=== PATIENT | male | born 1955 | race Hispanic/Latino ===

== ENCOUNTER 2016-12-06 14:40 | Inpatient (IN) | payer MEDICARE ==
[2016-12-06] MEDS ORDERED: NACL 0.9% 1000 ML 1,000 ML IV ONE ×2 (15:29→18:40)
[2016-12-06] MEDS ORDERED: SUBLIMAZE IV ONE (15:30)
[2016-12-06] MEDS ORDERED: ZEMURON IV ONE ×2 (15:30→18:50)
[2016-12-06] MEDS ORDERED: KETALAR IV ONE (15:30)
[2016-12-06] MEDS ORDERED: VASELINE LIP THERAPY TP PRN (15:31)
[2016-12-06] MEDS ORDERED: ARTIFICIAL TEARS OPHTH OINT OU PRN (15:31)
--- NOTE | 2016-12-06 15:34 | Emergency Department Report ---
<WALT EARL - Last Filed: 12/06/16 18:41> ED Altered Mental Status HPI - General Chief Complaint: Altered Mental Status Stated Complaint: NON-RESPONSIVE Time Seen by Provider: 12/06/16 15:29 Source: EMS (verbal report received from EMS.ems notes not available at time of chart dictation), RN notes reviewed, old records reviewed Mode of arrival: Stretcher Limitations: Altered Mental Status, Physical Limitation - History of Present Illness Initial Comments: This is a 61-year-old male. I have evaluated him in the past. Has a history of cardiomyopathy, diabetes. Patient presents to the ER EMS for altered mental status. As per verbal report from EMS, patient was last seen normal at 5:00 in the morning. He was found at home by his ex- in bed, there is no history of trauma, and he is altered. Initially upon arrival in the ER, the patient was saturating poorly, 89-90% on room air, not really protecting his airway, and was found to be delirious, combative and agitated. He is found to be febrile and tachycardic. Given altered mental status, delirium, poor oxygenation, I found patient to be an inappropriate candidate for positive pressure ventilation through BiPAP or CPAP , and decision was made to intubate him for airway protection. He was placed on a nasal cannula at 15 L/m, induced with ketamine, 150 mg, and received bag valve mask ventilation. He was then intubated using video laryngoscopy on a second attempt. He had transient desaturation, which was corrected easily with [id number] ventilation. Currently, the patient is sedated on fentanyl and Versed, will be given IV fluids, acetaminophen (assuming his Tylenol level is not supratherapeutic or toxic) , blood cultures, urine cultures to be drawn. x ray was suggestive pneumonia/pneumonitis. Patient was loaded empirically with ceftriaxone. Laboratory studies are pending at this time. I appreciated that the patient has a past medical history of cardiomyopathy, but with fever, delirium, altered mental status, tachypnea, patient meet severe sepsis criteria. Therefore, he will require an aggressive fluid resuscitation. Case was discussed with critical care physician, Dr. Najera, who is going to follow-up in the critical care perspective. He will be admitted to the medical service once laboratory studies and CT scan have returned. MD Complaint: altered mental status, confusion, decreased responsiveness, weakness -: Gradual, hour(s) Severity: severe Consistency of Symptoms: constant Context: history of similar presen Associated Symptoms: other (per hpi) - Related Data Previous Rx's Medication Instructions Recorded Last Taken Type Aspirin [Aspirin TAB] 81 mg PO QDAY #30 tablet 01/28/15 1 Day Ago Rx Furosemide [Lasix TAB] 20 mg PO DAILY #30 tablet 01/28/15 1 Day Ago Rx ISOSORBIDE MONOnitrate [Imdur ER] 30 mg PO DAILY #30 tablet 01/28/15 1 Day Ago Rx Lisinopril [Zestril] 2.5 mg PO QDAY #30 tablet 01/28/15 1 Day Ago Rx Metoprolol [Lopressor TAB] 12.5 mg PO BID #60 tablet 01/28/15 1 Day Ago Rx Pantoprazole [Protonix TAB] 20 mg PO BID #60 tablet. 01/28/15 1 Day Ago Rx Simvastatin [Zocor TAB] 20 mg PO QHS #30 tablet 01/28/15 1 Day Ago Rx Magnesium Oxide [Mag-Ox] 400 mg PO QDAY #5 tablet 02/02/16 1 Day Ago Rx Allergies Allergy/AdvReac Type Severity Reaction Status Date / Time No Known Allergies Allergy Verified 08/09/14 20:15 ED Review of Systems ROS: Stated complaint: NON-RESPONSIVE Other details as noted in HPI Comment: Unobtainable due to pts medical conditions Constitutional: see HPI Eyes: as per HPI ENT: as per HPI Respiratory: see HPI Cardiovascular: as per HPI Endocrine: see HPI Gastrointestinal: as per HPI Genitourinary: as per HPI Musculoskeletal: as per HPI Skin: as per HPI Neurological: as per HPI Psychiatric: as per HPI Hematological/Lymphatic: as per HPI ED Past Medical Hx - Past Medical History Hx Hypertension: Yes Hx Heart Attack/AMI: Yes (2x) Hx Congestive Heart Failure: Yes Hx Diabetes: Yes Hx Asthma: No Hx COPD: No Hx HIV: No Additional medical history: hep c - Surgical History Hx Coronary Stent: Yes (7 stents) - Social History Smoking Status: Current Every Day Smoker - Medications Home Medications: Home Medications Medication Instructions Recorded Confirmed Last Taken Type Aspirin [Aspirin TAB] 81 mg PO QDAY #30 tablet 01/28/15 12/06/16 1 Day Ago Rx Furosemide [Lasix TAB] 20 mg PO DAILY #30 tablet 01/28/15 12/06/16 1 Day Ago Rx ISOSORBIDE MONOnitrate [Imdur ER] 30 mg PO DAILY #30 tablet 01/28/15 12/06/16 1 Day Ago Rx Lisinopril [Zestril] 2.5 mg PO QDAY #30 tablet 01/28/15 12/06/16 1 Day Ago Rx Metoprolol [Lopressor TAB] 12.5 mg PO BID #60 tablet 01/28/15 12/06/16 1 Day Ago Rx Pantoprazole [Protonix TAB] 20 mg PO BID #60 tablet. 01/28/15 12/06/16 1 Day Ago Rx Simvastatin [Zocor TAB] 20 mg PO QHS #30 tablet 01/28/15 12/06/16 1 Day Ago Rx Magnesium Oxide [Mag-Ox] 400 mg PO QDAY #5 tablet 02/02/16 12/06/16 1 Day Ago Rx ED Physical Exam - General Limitations: Altered Mental Status General appearance: lethargic, in distress - Head Head exam: Present: atraumatic, normocephalic - Eye Eye exam: Present: normal appearance - ENT ENT exam: Present: mucous membranes dry - Neck Neck exam: Present: normal inspection. Absent: tenderness, meningismus - Respiratory Respiratory exam: Present: respiratory distress, rhonchi - Cardiovascular Cardiovascular Exam: Present: normal rhythm, tachycardia, normal heart sounds. Absent: systolic murmur, diastolic murmur, rubs, gallop - GI/Abdominal GI/Abdominal exam: Present: soft, normal bowel sounds. Absent: distended, tenderness, guarding, rebound, rigid, pulsatile mass - Rectal Rectal exam: Present: normal inspection - exam: Present: normal inspection - Extremities Exam Extremities exam: Present: normal inspection, full ROM. Absent: calf tenderness - Back Exam Back exam: Present: normal inspection. Absent: tenderness, CVA tenderness (R), CVA tenderness (L), muscle spasm, paraspinal tenderness, vertebral tenderness - Neurological Exam Neurological exam: Present: altered, other (patient moves 4 extremities spontaneously prior to intubation) - Psychiatric Psychiatric exam: Present: agitated - Skin Skin exam: Present: warm, dry, intact, normal color. Absent: rash - Assessment Assessment Interval: Baseline - Level of Consciousness 1a. Level of Consciousness: not alert, arousable - LOC Questions 1b. LOC Questions: answers no questions correctly - LOC Command 1c. LOC Commands: performs no tasks correctly - Best Gaze 2. Best Gaze: normal (unable to assess) - Visual 3. Visual: bilateral hemianopia (unable to assess) - Facial Palsy 4. Facial Palsy: normal symmetrical movement - Motor Arm 5b. Motor Arm Right: drift 5a. Motor Arm Left: drift - Motor Leg 6a. Motor Leg Left: drift 6b. Motor Leg Right: drift - Limb Ataxia 7. Limb Ataxia: amputation (unable to assess) - Sensory 8. Sensory: mild/moderate sensory loss - Best Language 9. Best Language: mute/global aphasia - Dysarthria 10. Dysarthria: intubated or other barrier - Extinction and Inattention 11. Extinction/Inattention: profound inattention ED Course Vital Signs 12/06/16 12/06/16 12/06/16 15:10 15:35 17:46 Temperature 101.1 F H Pulse Rate 134 H 139 H 130 H Pulse Rate [ Anterior Bilateral Throughout] Respiratory 28 H 16 Rate Respiratory Rate [Anterior Bilateral Throughout] Blood Pressure 125/81 144/86 Blood Pressure 138/74 [Left] O2 Sat by Pulse 100 97 95 Oximetry 12/06/16 12/06/16 12/06/16 18:29 20:05 20:10 Temperature Pulse Rate 118 H 98 H 96 H Pulse Rate [ Anterior Bilateral Throughout] Respiratory 16 Rate Respiratory Rate [Anterior Bilateral Throughout] Blood Pressure 124/70 106/61 Blood Pressure 106/61 [Left] O2 Sat by Pulse 97 100 99 Oximetry 12/06/16 12/06/16 12/06/16 20:19 20:29 22:31 Temperature Pulse Rate 97 H Pulse Rate [ 96 H 97 H Anterior Bilateral Throughout] Respiratory 16 Rate Respiratory 20 20 Rate [Anterior Bilateral Throughout] Blood Pressure Blood Pressure 103/59 [Left] O2 Sat by Pulse 97 Oximetry 12/06/16 12/06/16 12/07/16 23:03 23:36 01:58 Temperature Pulse Rate 97 H 94 H Pulse Rate [ 90 Anterior Bilateral Throughout] Respiratory Rate Respiratory 20 Rate [Anterior Bilateral Throughout] Blood Pressure 102/57 110/64 Blood Pressure [Left] O2 Sat by Pulse 97 Oximetry 12/07/16 12/07/16 12/07/16 02:02 02:08 03:00 Temperature Pulse Rate 82 95 H Pulse Rate [ 93 H Anterior Bilateral Throughout] Respiratory 16 16 Rate Respiratory 20 Rate [Anterior Bilateral Throughout] Blood Pressure Blood Pressure 144/62 105/66 [Left] O2 Sat by Pulse 96 99 Oximetry 12/07/16 12/07/16 12/07/16 04:16 04:25 04:30 Temperature Pulse Rate 101 H 96 H 100 H Pulse Rate [ Anterior Bilateral Throughout] Respiratory 23 16 22 Rate Respiratory Rate [Anterior Bilateral Throughout] Blood Pressure 119/70 Blood Pressure 116/69 [Left] O2 Sat by Pulse 98 100 93 Oximetry 12/07/16 12/07/16 12/07/16 05:00 05:30 05:42 Temperature Pulse Rate 99 H 99 H 101 H Pulse Rate [ Anterior Bilateral Throughout] Respiratory 19 19 Rate Respiratory Rate [Anterior Bilateral Throughout] Blood Pressure 122/84 115/73 122/84 Blood Pressure [Left] O2 Sat by Pulse 99 97 99 Oximetry 12/07/16 12/07/16 12/07/16 06:00 06:30 06:49 Temperature Pulse Rate 97 H 97 H Pulse Rate [ Anterior Bilateral Throughout] Respiratory 20 20 16 Rate Respiratory Rate [Anterior Bilateral Throughout] Blood Pressure 122/79 125/81 Blood Pressure [Left] O2 Sat by Pulse 96 99 Oximetry 12/07/16 12/07/16 12/07/16 06:59 07:00 07:18 Temperature 98 F Pulse Rate 99 H 93 H Pulse Rate [ Anterior Bilateral Throughout] Respiratory 21 20 Rate Respiratory Rate [Anterior Bilateral Throughout] Blood Pressure 123/73 Blood Pressure 123/73 [Left] O2 Sat by Pulse 99 99 Oximetry 12/07/16 12/07/16 12/07/16 07:25 07:30 07:35 Temperature Pulse Rate 100 H 101 H Pulse Rate [ 101 H Anterior Bilateral Throughout] Respiratory 20 Rate Respiratory 21 Rate [Anterior Bilateral Throughout] Blood Pressure 137/73 137/73 Blood Pressure [Left] O2 Sat by Pulse 98 99 Oximetry 12/07/16 12/07/16 12/07/16 07:44 08:00 08:31 Temperature Pulse Rate 110 H 120 H Pulse Rate [ 101 H Anterior Bilateral Throughout] Respiratory 21 26 H Rate Respiratory 22 Rate [Anterior Bilateral Throughout] Blood Pressure 119/79 119/79 Blood Pressure [Left] O2 Sat by Pulse 87 95 Oximetry 12/07/16 12/07/16 12/07/16 09:00 09:30 10:00 Temperature 101 F H Pulse Rate 119 H 114 H 109 H Pulse Rate [ Anterior Bilateral Throughout] Respiratory 25 H 22 19 Rate Respiratory Rate [Anterior Bilateral Throughout] Blood Pressure 120/75 120/69 124/73 Blood Pressure 120/75 [Left] O2 Sat by Pulse 98 98 98 Oximetry 12/07/16 12/07/16 12/07/16 10:16 10:25 10:30 Temperature 101.2 F H Pulse Rate 106 H 105 H 100 H Pulse Rate [ Anterior Bilateral Throughout] Respiratory 19 19 Rate Respiratory Rate [Anterior Bilateral Throughout] Blood Pressure 123/74 104/65 Blood Pressure 124/73 [Left] O2 Sat by Pulse 98 Oximetry 12/07/16 12/07/16 12/07/16 11:00 11:21 11:30 Temperature Pulse Rate 93 H 92 H 93 H Pulse Rate [ Anterior Bilateral Throughout] Respiratory 19 19 Rate Respiratory Rate [Anterior Bilateral Throughout] Blood Pressure 97/56 97/56 87/50 Blood Pressure [Left] O2 Sat by Pulse 98 97 Oximetry 12/07/16 12/07/16 12/07/16 11:50 12:00 12:30 Temperature Pulse Rate 93 H 95 H 92 H Pulse Rate [ Anterior Bilateral Throughout] Respiratory 19 22 Rate Respiratory Rate [Anterior Bilateral Throughout] Blood Pressure 87/50 76/45 76/46 Blood Pressure [Left] O2 Sat by Pulse 97 Oximetry 12/07/16 12/07/16 12/07/16 13:00 13:30 13:50 Temperature 100.8 F H Pulse Rate 87 82 Pulse Rate [ 98 H Anterior Bilateral Throughout] Respiratory 20 21 Rate Respiratory 20 Rate [Anterior Bilateral Throughout] Blood Pressure 86/50 84/48 Blood Pressure 85/50 [Left] O2 Sat by Pulse 98 Oximetry 12/07/16 12/07/16 12/07/16 14:00 14:15 14:30 Temperature Pulse Rate 81 85 Pulse Rate [ 94 H Anterior Bilateral Throughout] Respiratory 20 22 Rate Respiratory 24 Rate [Anterior Bilateral Throughout] Blood Pressure 84/49 80/46 Blood Pressure [Left] O2 Sat by Pulse Oximetry 12/07/16 12/07/16 12/07/16 15:00 15:30 15:44 Temperature 99.5 F Pulse Rate 84 83 82 Pulse Rate [ Anterior Bilateral Throughout] Respiratory 20 20 20 Rate Respiratory Rate [Anterior Bilateral Throughout] Blood Pressure 81/48 81/46 Blood Pressure 81/46 [Left] O2 Sat by Pulse 96 96 97 Oximetry 12/07/16 12/07/16 12/07/16 16:00 16:30 17:00 Temperature Pulse Rate 82 81 80 Pulse Rate [ Anterior Bilateral Throughout] Respiratory 21 20 19 Rate Respiratory Rate [Anterior Bilateral Throughout] Blood Pressure 84/48 86/50 87/48 Blood Pressure [Left] O2 Sat by Pulse Oximetry 12/07/16 12/07/16 17:30 18:00 Temperature Pulse Rate 82 82 Pulse Rate [ Anterior Bilateral Throughout] Respiratory 19 21 Rate Respiratory Rate [Anterior Bilateral Throughout] Blood Pressure 84/45 84/45 Blood Pressure [Left] O2 Sat by Pulse 95 94 Oximetry - Reevaluation(s) Reevaluation #1: 12/06/16 17:25 X-ray of the chest requires that endotracheal tube advanced 2 cm. This was performed. Antibiotics have been administered. Case is discussed with the Hospital physician, Dr. Blanco, who accepts the patient to her service. Reevaluation #2: 12/06/16 18:41 additional liter of IV fluids ordered. Patient is still tachycardic. Acetaminophen ordered. Received verbal report from radiology feeding tube/NG tube is twisted on itself. I asked the nurse to adjust this, and he informed me that he did. - Intubation Time Out Performed: Yes Sedative: Ketamine Mg Given: 150 Paralytic: Rocuronium Mg Given: 100 Laryngoscope: fiberoptic video scope Size: 3 ET Tube Size: 7.5 Tube Secured Location: teeth Tube Placement Confirmation: visualized tube passing t Patient Tolerated Procedure: well Intubation Complications: difficult intubation, hypoxia (transient desaturation , corrected with bvm) - Lab Data Result diagrams: 12/06/16 16:07 12/06/16 16:07 Lab Results 12/06/16 12/06/16 12/06/16 Range/Units 15:30 15:30 16:07 WBC 8.2 (4.5-11.0) K/mm3 RBC 4.81 (3.65-5.03) M/mm3 Hgb 14.5 (11.8-15.2) gm/dl Hct 42.8 (35.5-45.6) % MCV 89 (84-94) fl MCH 30 (28-32) pg MCHC 34 (32-34) % RDW 12.9 L (13.2-15.2) % Plt Count 97 L (140-440) K/mm3 Lymph % (Auto) 15.6 (13.4-35.0) % [place] % (Auto) 12.7 H (0.0-7.3) % Eos % (Auto) 0.1 (0.0-4.3) % Baso % (Auto) 0.7 (0.0-1.8) % Lymph # 1.3 (1.2-5.4) K/mm3 [place] # 1.0 H (0.0-0.8) K/mm3 Eos # 0.0 (0.0-0.4) K/mm3 Baso # 0.1 (0.0-0.1) K/mm3 Seg Neutrophils % 70.9 H (40.0-70.0) % Seg Neutrophils # 5.8 (1.8-7.7) K/mm3 PT (12.2-14.9) Sec. INR (0.87-1.13) APTT (24.2-36.6) Sec. POC ABG pH (7.35-7.45) POC ABG pCO2 (35-45) POC ABG pO2 (80-105) POC ABG HCO3 POC ABG Total CO2 POC ABG O2 Sat POC ABG Base Excess FiO2 % Sodium (137-145) mmol/L Potassium (3.6-5.0) mmol/L Chloride (98-107) mmol/L Carbon Dioxide (22-30) mmol/L Anion Gap mmol/L BUN (9-20) mg/dL Creatinine (0.8-1.5) mg/dL Estimated GFR ml/min BUN/Creatinine Ratio % Glucose (75-100) mg/dL Lactic Acid (0.7-2.0) mmol/L Calcium (8.4-10.2) mg/dL Total Bilirubin (0.1-1.2) mg/dL AST (5-40) units/L ALT (7-56) units/L Alkaline Phosphatase (35-129) units/L Ammonia (25-60) umol/L Total Creatine Kinase (55-170) units/L Troponin T (0.00-0.029) ng/mL Total Protein (6.3-8.2) g/dL Albumin (3.9-5) g/dL Albumin/Globulin Ratio % Urine Color Winsome (Yellow) Urine Turbidity Clear (Clear) Urine pH 6.0 (5.0-7.0) Ur Specific [place] 1.017 (1.003-1.030) Urine Protein 100 mg/dl (Negative) mg/dL Urine Glucose (UA) 50 (Negative) mg/dL Urine Ketones Neg (Negative) mg/dL Urine Blood Sm (Negative) Urine Nitrite Neg (Negative) Urine Bilirubin Neg (Negative) Urine Urobilinogen 4.0 (<2.0) mg/dL Ur Leukocyte Esterase Neg (Negative) Urine WBC (Auto) < 1.0 (0.0-6.0) /HPF Urine RBC (Auto) 4.0 (0.0-6.0) /HPF Urine Mucus Few /HPF Salicylates (2.8-20.0) mg/dL Urine Opiates Screen Presumptive negative Urine Methadone Screen Presumptive negative Acetaminophen (10.0-30.0) ug/mL Ur Barbiturates Screen Presumptive negative Ur Phencyclidine Scrn Presumptive negative Ur Amphetamines Screen Presumptive negative U Benzodiazepines Scrn Presumptive negative Urine Cocaine Screen Presumptive negative U Marijuana (THC) Screen Presumptive negative Drugs of Abuse Note Disclamer Plasma/Serum Alcohol (0-0.07) gm% 12/06/16 12/06/16 12/06/16 Range/Units 16:07 16:07 16:07 WBC (4.5-11.0) K/mm3 RBC (3.65-5.03) M/mm3 Hgb (11.8-15.2) gm/dl Hct (35.5-45.6) % MCV (84-94) fl MCH (28-32) pg MCHC (32-34) % RDW (13.2-15.2) % Plt Count (140-440) K/mm3 Lymph % (Auto) (13.4-35.0) % [place] % (Auto) (0.0-7.3) % Eos % (Auto) (0.0-4.3) % Baso % (Auto) (0.0-1.8) % Lymph # (1.2-5.4) K/mm3 [place] # (0.0-0.8) K/mm3 Eos # (0.0-0.4) K/mm3 Baso # (0.0-0.1) K/mm3 Seg Neutrophils % (40.0-70.0) % Seg Neutrophils # (1.8-7.7) K/mm3 PT 14.0 (12.2-14.9) Sec. INR 1.09 (0.87-1.13) APTT 29.1 (24.2-36.6) Sec. POC ABG pH (7.35-7.45) POC ABG pCO2 (35-45) POC ABG pO2 (80-105) POC ABG HCO3 POC ABG Total CO2 POC ABG O2 Sat POC ABG Base Excess FiO2 % Sodium 136 L (137-145) mmol/L Potassium 4.0 (3.6-5.0) mmol/L Chloride 97.2 L (98-107) mmol/L Carbon Dioxide 25 (22-30) mmol/L Anion Gap 18 mmol/L BUN 14 (9-20) mg/dL Creatinine 0.6 L (0.8-1.5) mg/dL Estimated GFR > 60 ml/min BUN/Creatinine Ratio 23.33 % Glucose 195 H (75-100) mg/dL Lactic Acid 2.0 (0.7-2.0) mmol/L Calcium 8.2 L (8.4-10.2) mg/dL Total Bilirubin 1.4 H (0.1-1.2) mg/dL AST 42 H (5-40) units/L ALT 18 (7-56) units/L Alkaline Phosphatase 60 (35-129) units/L Ammonia (25-60) umol/L Total Creatine Kinase (55-170) units/L Troponin T (0.00-0.029) ng/mL Total Protein 7.4 (6.3-8.2) g/dL Albumin 3.3 L (3.9-5) g/dL Albumin/Globulin Ratio 0.8 % Urine Color (Yellow) Urine Turbidity (Clear) Urine pH (5.0-7.0) Ur Specific [place] (1.003-1.030) Urine Protein (Negative) mg/dL Urine Glucose (UA) (Negative) mg/dL Urine Ketones (Negative) mg/dL Urine Blood (Negative) Urine Nitrite (Negative) Urine Bilirubin (Negative) Urine Urobilinogen (<2.0) mg/dL Ur Leukocyte Esterase (Negative) Urine WBC (Auto) (0.0-6.0) /HPF Urine RBC (Auto) (0.0-6.0) /HPF Urine Mucus /HPF Salicylates (2.8-20.0) mg/dL Urine Opiates Screen Urine Methadone Screen Acetaminophen (10.0-30.0) ug/mL Ur Barbiturates Screen Ur Phencyclidine Scrn Ur Amphetamines Screen U Benzodiazepines Scrn Urine Cocaine Screen U Marijuana (THC) Screen Drugs of Abuse Note Plasma/Serum Alcohol (0-0.07) gm% 12/06/16 12/06/16 12/06/16 Range/Units 16:07 16:07 16:07 WBC (4.5-11.0) K/mm3 RBC (3.65-5.03) M/mm3 Hgb (11.8-15.2) gm/dl Hct (35.5-45.6) % MCV (84-94) fl MCH (28-32) pg MCHC (32-34) % RDW (13.2-15.2) % Plt Count (140-440) K/mm3 Lymph % (Auto) (13.4-35.0) % [place] % (Auto) (0.0-7.3) % Eos % (Auto) (0.0-4.3) % Baso % (Auto) (0.0-1.8) % Lymph # (1.2-5.4) K/mm3 [place] # (0.0-0.8) K/mm3 Eos # (0.0-0.4) K/mm3 Baso # (0.0-0.1) K/mm3 Seg Neutrophils % (40.0-70.0) % Seg Neutrophils # (1.8-7.7) K/mm3 PT (12.2-14.9) Sec. INR (0.87-1.13) APTT (24.2-36.6) Sec. POC ABG pH (7.35-7.45) POC ABG pCO2 (35-45) POC ABG pO2 (80-105) POC ABG HCO3 POC ABG Total CO2 POC ABG O2 Sat POC ABG Base Excess FiO2 % Sodium (137-145) mmol/L Potassium (3.6-5.0) mmol/L Chloride (98-107) mmol/L Carbon Dioxide (22-30) mmol/L Anion Gap mmol/L BUN (9-20) mg/dL Creatinine (0.8-1.5) mg/dL Estimated GFR ml/min BUN/Creatinine Ratio % Glucose (75-100) mg/dL Lactic Acid (0.7-2.0) mmol/L Calcium (8.4-10.2) mg/dL Total Bilirubin (0.1-1.2) mg/dL AST (5-40) units/L ALT (7-56) units/L Alkaline Phosphatase (35-129) units/L Ammonia 42.0 (25-60) umol/L Total Creatine Kinase 961 H (55-170) units/L Troponin T < 0.010 (0.00-0.029) ng/mL Total Protein (6.3-8.2) g/dL Albumin (3.9-5) g/dL Albumin/Globulin Ratio % Urine Color (Yellow) Urine Turbidity (Clear) Urine pH (5.0-7.0) Ur Specific [place] (1.003-1.030) Urine Protein (Negative) mg/dL Urine Glucose (UA) (Negative) mg/dL Urine Ketones (Negative) mg/dL Urine Blood (Negative) Urine Nitrite (Negative) Urine Bilirubin (Negative) Urine Urobilinogen (<2.0) mg/dL Ur Leukocyte Esterase (Negative) Urine WBC (Auto) (0.0-6.0) /HPF Urine RBC (Auto) (0.0-6.0) /HPF Urine Mucus /HPF Salicylates (2.8-20.0) mg/dL Urine Opiates Screen Urine Methadone Screen Acetaminophen (10.0-30.0) ug/mL Ur Barbiturates Screen Ur Phencyclidine Scrn Ur Amphetamines Screen U Benzodiazepines Scrn Urine Cocaine Screen U Marijuana (THC) Screen Drugs of Abuse Note Plasma/Serum Alcohol < 0.01 (0-0.07) gm% 12/06/16 12/06/16 12/06/16 Range/Units 16:07 16:07 17:17 WBC (4.5-11.0) K/mm3 RBC (3.65-5.03) M/mm3 Hgb (11.8-15.2) gm/dl Hct (35.5-45.6) % MCV (84-94) fl MCH (28-32) pg MCHC (32-34) % RDW (13.2-15.2) % Plt Count (140-440) K/mm3 Lymph % (Auto) (13.4-35.0) % [place] % (Auto) (0.0-7.3) % Eos % (Auto) (0.0-4.3) % Baso % (Auto) (0.0-1.8) % Lymph # (1.2-5.4) K/mm3 [place] # (0.0-0.8) K/mm3 Eos # (0.0-0.4) K/mm3 Baso # (0.0-0.1) K/mm3 Seg Neutrophils % (40.0-70.0) % Seg Neutrophils # (1.8-7.7) K/mm3 PT (12.2-14.9) Sec. INR (0.87-1.13) APTT (24.2-36.6) Sec. POC ABG pH 7.276 L (7.35-7.45) POC ABG pCO2 51.7 H (35-45) POC ABG pO2 72 L (80-105) POC ABG HCO3 24.1 POC ABG Total CO2 26 POC ABG O2 Sat 92 POC ABG Base Excess -3 FiO2 60 % Sodium (137-145) mmol/L Potassium (3.6-5.0) mmol/L Chloride (98-107) mmol/L Carbon Dioxide (22-30) mmol/L Anion Gap mmol/L BUN (9-20) mg/dL Creatinine (0.8-1.5) mg/dL Estimated GFR ml/min BUN/Creatinine Ratio % Glucose (75-100) mg/dL Lactic Acid (0.7-2.0) mmol/L Calcium (8.4-10.2) mg/dL Total Bilirubin (0.1-1.2) mg/dL AST (5-40) units/L ALT (7-56) units/L Alkaline Phosphatase (35-129) units/L Ammonia (25-60) umol/L Total Creatine Kinase (55-170) units/L Troponin T (0.00-0.029) ng/mL Total Protein (6.3-8.2) g/dL Albumin (3.9-5) g/dL Albumin/Globulin Ratio % Urine Color (Yellow) Urine Turbidity (Clear) Urine pH (5.0-7.0) Ur Specific [place] (1.003-1.030) Urine Protein (Negative) mg/dL Urine Glucose (UA) (Negative) mg/dL Urine Ketones (Negative) mg/dL Urine Blood (Negative) Urine Nitrite (Negative) Urine Bilirubin (Negative) Urine Urobilinogen (<2.0) mg/dL Ur Leukocyte Esterase (Negative) Urine WBC (Auto) (0.0-6.0) /HPF Urine RBC (Auto) (0.0-6.0) /HPF Urine Mucus /HPF Salicylates < 0.3 L (2.8-20.0) mg/dL Urine Opiates Screen Urine Methadone Screen Acetaminophen < 15.0 (10.0-30.0) ug/mL Ur Barbiturates Screen Ur Phencyclidine Scrn Ur Amphetamines Screen U Benzodiazepines Scrn Urine Cocaine Screen U Marijuana (THC) Screen Drugs of Abuse Note Plasma/Serum Alcohol (0-0.07) gm% Vital Signs 12/06/16 15:10 Temperature 101.1 F H Pulse Rate 134 H Respiratory 28 H Rate Blood Pressure 125/81 O2 Sat by Pulse 100 Oximetry 12/06/16 16:24 Sinus tachycardia, 126 bpm, poor R-wave progression, normal axis, abnormal EKG, not consistent with STEMI, appears nonspecifically changed when compared to prior EKG from January 2016. - Radiology Data Radiology results: report reviewed, image reviewed interpreted by me: One view chest x-ray demonstrates placement of endotracheal tube at the level of the clavicles. Bilateral pulmonary infiltrates. Noncontrast CAT scan of the brain negative for acute disease. Noncontrast CAT scan of the cervical spine negative for acute disease. The feeding tube is noted to be twisted on itself incidentally. - Core Measures Measure Exclusions: not indicated - NEXUS Criteria Focal neurological deficit present: No Midline spinal tenderness present: No Altered level of consciousness: Yes (no history of trauma) Intoxication present: No Distracting injury present: No NEXUS results: C-Spine cannot be cleared clinically by these results. Imaging is required. Critical Care Time: Yes Critical care time in (mins) excluding proc time.: 45 Critical care attestation.: If time is entered above; I have spent that time in minutes in the direct care of this critically ill patient, excluding procedure time. Critical Care Time: Critical care time includes multiple bedside evaluations, interpretation of laboratory studies, radiology studies, time spent managing a critically ill patient with delirium and acute fever/sepsis syndrome, requiring intubation. This also includes time spent discussing patient's care with multiple consulting services, including hospital medicine, critical care medicine. This does not include procedure time. ED Disposition Disposition: OP ADMITTED IP TO THIS HOSP Is pt being admited?: Yes Condition: Critical <MISTY DOVE - Last Filed: 12/07/16 18:39> - Central Line Placement Right IJ Consent Obtained: emergent situation Time Out Performed: Yes Patient Placed on Monitor/Pulse Ox: Yes MD Prep: mask, gown, gloves Central Line Prep: Chlorhexidine scrub, sterile drapes applied Local Anesthesia Used: Lidocaine 1% Amount of Anesthesia Used (mls): 2 Ultrasound Used for Placement: Yes Central Line Lumen Inserted: triple Bloods Obtained for Lab: No Central Line Position: good blood return, all ports aspirated, flus, sutured in place with nyl Dressing Applied: Tegaderm Post Procedure X-Ray: tip of catheter in good p Patient Tolerated Procedure: well Complications: none - Lab Data Result diagrams: 12/07/16 05:30 12/07/16 05:30
[2016-12-06] MEDS ORDERED: ROCEPHIN 2,000 MG in NACL 0.9% 50 ML IV ONE (15:36)
[2016-12-06 15:49] LABS: Urine Drugs of Abuse Note Disclamer
[2016-12-06] MEDS ORDERED: ROCEPHIN/NS 2 GM/100 ML 2 GM/100 ML BAG IV SCH (16:00)
[2016-12-06] MEDS ORDERED: SUBLIMAZE 2,000 MCG in NACL 0.9% 60 ML IV SCH (16:00)
[2016-12-06 16:11] LABS: Bilirubin,Urine NEG (Negative); Blood,Urine SM (Negative); Ketones,Urine NEG (Negative); Leukocyte Esterase,Urine NEG (Negative); Mucus,Urine FEW /HPF; Nitrite,Urine NEG (Negative); WBC,Urine < 1.0 /HPF (0.0-6.0)
[2016-12-06] MEDS: fentaNYL DRIP Premix 2,000 MCG/100 ML BAG IV SCH (16:16)
[2016-12-06] MEDS: VERSED/NS 100MG/100ML 100 MG/100 ML BAG IV SCH (16:16)
--- NOTE | 2016-12-06 16:38 | XRay Report ---
FINAL REPORT PROCEDURE: XR CHEST 1V AP TECHNIQUE: Chest radiograph anteroposterior view. CPT 43958 HISTORY: ETT placement COMPARISON: No prior studies are available for comparison. FINDINGS: Heart: mildly enlarged. Mediastinum/Vessels: Moderate central congestion with mild edema. Lungs/Pleural space: Patchy mixed interstitial airspace primarily in the in the left lung zone with atelectasis or slight infiltrate left lung base. Pleural calcifications right greater than left. Small nodules suspected left greater than right lung zone sub centimeter in range. Metastatic disease not excludable followup CT chest advised Bony thorax: No acute osseous abnormality. Life support devices: Endotracheal tube seen with tip 6.5 centimeters from bifurcation. IMPRESSION: Endotracheal tube 6.5 centimeters from bifurcation. Consider advancing 2 centimeters if indicated Mild CHF COPD Patchy infiltrate left lung zone primarily Underlying nodular disease may warrant followup CT chest on elective basis to further evaluate
[2016-12-06 16:56] LABS: Alanine Aminotransferase 18 units/L (7-56); Albumin 3.3 g/dL (3.9-5); Albumin/Globulin Ratio 0.8 %; Alkaline Phosphatase 60 units/L (35-129); Anion Gap 18 mmol/L; BUN/Creatinine Ratio 23.33; Bilirubin,Total 1.4 mg/dL (0.1-1.2); Blood Urea Nitrogen 14 mg/dL (9-20); Calcium 8.2 mg/dL (8.4-10.2); Carbon Dioxide 25 mmol/L (22-30); Chloride 97.2 mmol/L (98-107); Glucose 195 mg/dL (75-100); Sodium 136 mmol/L (137-145); Total Protein 7.4 g/dL (6.3-8.2)
[2016-12-06 16:57] LABS: Creatine Kinase 961 units/L (55-170)
[2016-12-06 17:01] LABS: Basophils % (Auto) 0.7 % (0.0-1.8); Eosinophils % (Auto) 0.1 % (0.0-4.3); Hematocrit 42.8 % (35.5-45.6); Hemoglobin 14.5 gm/dl (11.8-15.2); Mean Corpuscular HGB Conc 34 % (32-34); Mean Corpuscular Hemoglobin 30 pg (28-32); Mean Corpuscular Volume 89 fl (84-94); Red Blood Count 4.81 M/mm3 (3.65-5.03); Red Cell Distribution Width 12.9 % (13.2-15.2); White Blood Count 8.2 K/mm3 (4.5-11.0)
[2016-12-06 17:10] LABS: INR 1.09 (0.87-1.13)
[2016-12-06 17:11] LABS: Partial Thromboplastin Time 29.1 Sec. (24.2-36.6)
[2016-12-06 17:24] LABS: ISTAT Base Excess -3; ISTAT HCO3 24.1; ISTAT PCO2 51.7 (35-45); ISTAT PH 7.276 (7.35-7.45); ISTAT PO2 72 (80-105); ISTAT SO2 92; ISTAT TCO2 26
--- NOTE | 2016-12-06 17:32 | Cat Scan Report ---
FINAL REPORT PROCEDURE: CT HEAD/BRAIN WO CON TECHNIQUE: Computerized tomography of the head was performed without contrast material. HISTORY: Altered Mental Status COMPARISON: 02/01/2016 FINDINGS: Skull and scalp: Normal. Paranasal sinuses: Mucosal thickening maxillary sinuses, right sphenoid sinus. Air-fluid level left sphenoid sinus. Thickening in the ethmoids. Thickening and fluid in the left frontal sinus.. Minimal fluid right mastoid Ventricles and subarachnoid spaces: Normal. Cerebrum: No evidence of hemorrhage, acute infarction or mass . Cerebellum and brainstem: No evidence of hemorrhage, acute infarction or mass. Vasculature: Normal. Comments: If symptoms and or concern persist consider MRI. IMPRESSION: No acute intracranial pathology seen at this time
--- NOTE | 2016-12-06 17:44 | Cat Scan Report ---
FINAL REPORT PROCEDURE: CT CERVICAL SPINE WO CON TECHNIQUE: Computerized tomography of the cervical spine was performed from the skull base to T1 without contrast material. HISTORY: altered mental status COMPARISON: 02/01/2016. FINDINGS: Lateral masses C1-C2 align. Moderate degenerative changes. Retrolisthesis at C4. Moderate disc space narrowing at C3-4. Sclerotic change and irregularity of the disc spaces at C6-7. Lytic or cystic changes at the subjacent endplates at this level. No definitive evidence of discitis such as soft tissue prominence or gas. Probable chronic degenerative changes. Skull base appears intact. Minimal fluid in the mastoids. Chronic odontoid ligamentous calcifications. Small lytic or cystic changes in the vertebral bodies including base of the dens and at the C6-7 level. Medial ribs clavicles appear intact. Emphysematous changes in the upper lungs. Endotracheal tube and NG tube in place.. The NG tube is double looped with redundant catheter in the upper esophageal area. IMPRESSION: No evidence acute fracture Degenerative changes of the cervical spine with listhesis. Endplate irregularity and sclerotic change at the C6-7 level without definitive evidence of discitis Redundant loop in the NG tube upper esophagus. Suggest manipulation Report called to Dr. Enriquez 5:34 p.m. December 06
--- NOTE | 2016-12-06 17:53 | History and Physical Report ---
History of Present Illness Date of examination: 12/06/16 Date of admission: 12/06/16 Chief complaint: Altered level of consciousness History of present illness: 61-year-old male patient well known to our service with significant past medical history of ischemic cardiomyopathy with ejection fraction of 10-15%, the artery disease type 2 diabetes mellitus ongoing tobacco use hypertension history of metabolic encephalopathy during last admission was brought to the emergency room with altered level of consciousness and confusion, patient was found at home by his ex- with altered level of consciousness. Per the ER note patient was delirious combative and agitated unable to protect the airway, not a candidate for BiPAP or CPAP , and patient was promptly intubated and placed on ventilatory support No family available at the bedside, most of the information is obtained from medical records No other history available Past History Past Medical History: CAD, diabetes, heart failure (systolic dysfunction ejection fraction 10-15%), hypertension Past Surgical History: PTCA Social history: smoking Family history: CAD, hypertension Medications and Allergies Allergies Allergy/AdvReac Type Severity Reaction Status Date / Time No Known Allergies Allergy Verified 08/09/14 20:15 Home Medications Medication Instructions Recorded Confirmed Last Taken Type Aspirin [Aspirin TAB] 81 mg PO QDAY #30 tablet 01/28/15 12/06/16 1 Day Ago Rx Furosemide [Lasix TAB] 20 mg PO DAILY #30 tablet 01/28/15 12/06/16 1 Day Ago Rx ISOSORBIDE MONOnitrate [Imdur ER] 30 mg PO DAILY #30 tablet 01/28/15 12/06/16 1 Day Ago Rx Lisinopril [Zestril] 2.5 mg PO QDAY #30 tablet 01/28/15 12/06/16 1 Day Ago Rx Metoprolol [Lopressor TAB] 12.5 mg PO BID #60 tablet 01/28/15 12/06/16 1 Day Ago Rx Pantoprazole [Protonix TAB] 20 mg PO BID #60 tablet. 01/28/15 12/06/16 1 Day Ago Rx Simvastatin [Zocor TAB] 20 mg PO QHS #30 tablet 01/28/15 12/06/16 1 Day Ago Rx Magnesium Oxide [Mag-Ox] 400 mg PO QDAY #5 tablet 02/02/16 12/06/16 1 Day Ago Rx Active Meds: Active Medications Hydrophilic Ointment (Vaseline Lip Therapy) 1 applic TP Q2HR PRN PRN Reason: Dry Lips Midazolam HCl (Versed/Ns 100mg/100ml) 100 mg in 100 mls @ 1 mls/hr IV TITR RENITA ; 1 MG/HR PRN Reason: Protocol Last Titration: 12/06/16 17:49 Dose: 2 mg/hr, 2 mls/hr Ceftriaxone Sodium (Rocephin/Ns 2 Gm/100 Ml) 2 gm in 100 mls @ 200 mls/hr IV ONCE.ED RENITA Fentanyl Citrate (Fentanyl Drip Premix) 2,000 mcg in 100 mls @ 4.196 mls/hr IV TITR RENITA; 1 MCG/KG/HR PRN Reason: Protocol Last Titration: 12/06/16 17:48 Dose: 2 mcg/kg/hr, 8.392 mls/hr Multi-Ingred Cream/Lotion/Oil/Oint (Artificial Tears Ophth Oint) 1 applic OU Q4HR PRN PRN Reason: Dry Eye(s) Review of Systems ROS unobtainable: due to endotracheal tube Exam - Constitutional Vitals: Temp Pulse Resp BP Pulse Ox 101.1 F H 130 H 16 138/74 95 12/06/16 15:10 12/06/16 17:46 12/06/16 17:46 12/06/16 17:46 12/06/16 17:46 General appearance: Present: no acute distress, other (currently intubated and sedated) - EENT Eyes: Present: PERRL - Neck Neck: Present: supple. Absent: rigidity, enlarged thyroid - Respiratory Respiratory effort: normal Respiratory: bilateral: diminished, rales, negative: rhonchi - Cardiovascular Rhythm: regular Heart Sounds: Present: S1 & S2 (tachycardia) - Extremities Extremities: no ischemia, pulses intact, pulses symmetrical Peripheral Pulses: within normal limits - Abdominal General gastrointestinal: Present: soft, non-tender, non-distended, normal bowel sounds - Integumentary Integumentary: Present: clear, warm - Musculoskeletal Musculoskeletal: other ( intubated and sedated) - Psychiatric Psychiatric: other (intubated and sedated) - Neurologic Neurologic: other (intubated/ sedated) Results - Labs CBC & Chem 7: 12/06/16 16:07 12/06/16 16:07 Labs: Abnormal lab results 12/06/16 12/06/1612/06/17 Range/Units 16:07 16:07 16:07 RDW 12.9 L (13.2-15.2) % [place] % (Auto) 12.7 H (0.0-7.3) % [place] # 1.0 H (0.0-0.8) K/mm3 Seg Neutrophils % 70.9 H (40.0-70.0) % POC ABG pH (7.35-7.45) POC ABG pCO2 (35-45) POC ABG pO2 (80-105) Sodium 136 L (137-145) mmol/L Chloride 97.2 L (98-107) mmol/L Creatinine 0.6 L (0.8-1.5) mg/dL Glucose 195 H (75-100) mg/dL Calcium 8.2 L (8.4-10.2) mg/dL Total Bilirubin 1.4 H (0.1-1.2) mg/dL AST 42 H (5-40) units/L Total Creatine Kinase 961 H (55-170) units/L Albumin 3.3 L (3.9-5) g/dL Salicylates (2.8-20.0) mg/dL 12/06/16 12/06/16 Range/Units 16:07 17:17 RDW (13.2-15.2) % [place] % (Auto) (0.0-7.3) % [place] # (0.0-0.8) K/mm3 Seg Neutrophils % (40.0-70.0) % POC ABG pH 7.276 L (7.35-7.45) POC ABG pCO2 51.7 H (35-45) POC ABG pO2 72 L (80-105) Sodium (137-145) mmol/L Chloride (98-107) mmol/L Creatinine (0.8-1.5) mg/dL Glucose (75-100) mg/dL Calcium (8.4-10.2) mg/dL Total Bilirubin (0.1-1.2) mg/dL AST (5-40) units/L Total Creatine Kinase (55-170) units/L Albumin (3.9-5) g/dL Salicylates < 0.3 L (2.8-20.0) mg/dL Assessment and Plan --Respiratory failure Admit to ICU Continue ventilatory support, nebulizers, IV antibiotics Supportive care, pulmonary critical evaluation Wean as tolerated and extubate --Left Lower lobe pneumonia/community-acquired IV Rocephin and Zithromax, blood cultures --Acute exacerbation of systolic congestive heart failure Ejection fraction 10-15%, IV diuretics and anti-failure medications Cardiology evaluation for assistance with management --Coronary artery disease status post PCI Continue home aspirin, beta blockers, rafa inhibitors, nitrates and statins --Altered level of consciousness/metabolic encephalopathy Multifactorial, closely monitor Review home medications and adjust as needed --Hypertension Well-controlled, continue current antihypertensives When necessary hydralazine --Dyslipidemia Continue lipid-lowering medications --DVT prophylaxis with Lovenox --Full CODE STATUS --Closely monitor the patient and adjust the management as needed Plan of care discussed with the patient's nurse and the ER physician Critical care time 50 minutes
[2016-12-06 17:58] LABS: Platelet Count 97 K/mm3 (140-440)
[2016-12-06] MEDS ORDERED: TYLENOL FEEDTUBE ONE (18:40)
[2016-12-06 18:43] LABS: ISTAT Base Excess -2; ISTAT HCO3 23.8; ISTAT PO2 85 (80-105); ISTAT SO2 96; ISTAT TCO2 25
[2016-12-06] MEDS ORDERED: KETALAR ONE (18:50)
[2016-12-06] MEDS ORDERED: APRESOLINE IV PRN (18:53)
[2016-12-06] MEDS ORDERED: ZITHROMAX 500 MG in NACL 0.9% 250ML 250 ML IV SCH (20:00)
[2016-12-06] MEDS: DUONEB 0.5 MG-3 MG/3 ML SOLN IH SCH (20:18)
[2016-12-06] MEDS: IMDUR PO SCH (20:34)
[2016-12-06] MEDS: LOPRESSOR PO SCH (23:03)
[2016-12-06] MEDS: LOVENOX SUB-Q SCH (23:06)
[2016-12-06] MEDS: ZOCOR PO SCH (23:06)
[2016-12-07 01:41] LABS: Creatine Kinase MB 3.2 ng/mL (0.0-4.0)
[2016-12-07 01:42] LABS: Creatine Kinase 343 units/L (55-170)
[2016-12-07] MEDS: DUONEB 0.5 MG-3 MG/3 ML SOLN IH SCH ×4 (01:58→19:50)
[2016-12-07 05:44] LABS: Basophils % (Auto) 0.4 % (0.0-1.8); Eosinophils % (Auto) 0.1 % (0.0-4.3); Hematocrit 39.7 % (35.5-45.6); Hemoglobin 13.3 gm/dl (11.8-15.2); Mean Corpuscular HGB Conc 34 % (32-34); Mean Corpuscular Hemoglobin 30 pg (28-32); Mean Corpuscular Volume 90 fl (84-94); Red Blood Count 4.41 M/mm3 (3.65-5.03); White Blood Count 9.4 K/mm3 (4.5-11.0)
[2016-12-07 05:45] LABS: Platelet Count 93 K/mm3 (140-440)
--- NOTE | 2016-12-07 05:47 | Admit Criteria Form ---
Admission Criteria Documentation: RESPIRATORY FAILURE GRG Clinical Indications for Admission to Inpatient Care (Place 'X' for any and all applicable criteria): Hospital admission is needed for appropriate care of the patient because of acute respiratory failure or insufficiency as indicated by ANY ONE of the following(1)(2)(3)(4)(5)(6)(7)(8): [ ]I. Mechanical ventilation needed (acute invasive or noninvasive) [X ]II. Severe ventilation deficit as indicated by ANY ONE of the following (9 ) [X ]a) Respiratory acidosis (pH less than 7.32 and partial pressure of carbon dioxide greater than 40 mm Hg (5.3 kPa)) [X ]b) Partial pressure of carbon dioxide greater than 44 mm Hg (5.9 kPa) (new) [ ]c) Airflow measurements less than 25% of predicted (eg, peak expiratory flow rate less than 100 L/minute) [ ]d) Forced vital capacity less than 15 mL/kg of ideal body weight, or 50% decrease in vital capacity from baseline [ ]III. Noncardiac pulmonary edema not resolving with rapid emergency treatment (8) [ ]IV. Severe respiratory distress as indicated by ANY ONE of the following: [ ]a) Severe tachypnea (respiratory rate greater than 30, greater than 45 for 6-month-old, greater than 60 for ) [ ]b) Severe hypoxemia (partial pressure of oxygen less than 50 mm Hg ( 6.7 kPa) on greater than 50% oxygen or partial pressure of oxygen to FIO2 ratio less than 200) [ ]c) Mental status deterioration from respiratory disease [ ]V. Airway obstruction or inadequate protection [A](10)(11) The original [employer] content created by [employer] has been revised. The portions of the content which have been revised are identified through the use of italic text or in bold, and [facility] has neither reviewed nor approved the modified material. All other unmodified content is copyright [employer]. Please see references footnoted in the original [employer] edition 2016 Admission Criteria Met: Yes
[2016-12-07 05:57] LABS: ISTAT Base Excess 1; ISTAT PCO2 42.6 (35-45); ISTAT PH 7.394 (7.35-7.45); ISTAT PO2 91 (80-105); ISTAT SO2 97; ISTAT TCO2 27
[2016-12-07 06:09] LABS: Alanine Aminotransferase 14 units/L (7-56); Albumin 2.6 g/dL (3.9-5); Albumin/Globulin Ratio 0.6 %; Alkaline Phosphatase 49 units/L (35-129); Anion Gap 18 mmol/L; BUN/Creatinine Ratio 23.33; Bilirubin,Direct 0.7 mg/dL (0-0.2); Bilirubin,Indirect 0.4 mg/dL; Bilirubin,Total 1.1 mg/dL (0.1-1.2); Blood Urea Nitrogen 14 mg/dL (9-20); Calcium 7.8 mg/dL (8.4-10.2); Carbon Dioxide 24 mmol/L (22-30); Chloride 99.2 mmol/L (98-107); Glucose 168 mg/dL (75-100); Magnesium 1.9 mg/dL (1.7-2.3); Sodium 137 mmol/L (137-145); Total Protein 6.7 g/dL (6.3-8.2)
[2016-12-07 07:56] LABS: Creatine Kinase MB 2.8 ng/mL (0.0-4.0)
[2016-12-07 07:57] LABS: Creatine Kinase 242 units/L (55-170)
[2016-12-07] MEDS: TYLENOL PR PRN (09:00)
[2016-12-07] MEDS ORDERED: ASPIRIN PO SCH (10:00)
[2016-12-07] MEDS ORDERED: ROCEPHIN/NS 2 GM/100 ML 2 GM/100 ML BAG IV SCH (10:00)
[2016-12-07] MEDS: PROTONIX IV SCH (10:08)
[2016-12-07] MEDS: LASIX IV SCH (10:10)
[2016-12-07] MEDS: BABY ASPIRIN PO SCH (10:15)
[2016-12-07] MEDS: ZESTRIL PO SCH (10:16)
[2016-12-07] MEDS: LOPRESSOR PO SCH ×2 (11:21→22:49)
[2016-12-07] MEDS: IMDUR PO SCH (11:21)
[2016-12-07] MEDS ORDERED: VANCOMYCIN PHARMACY TO DOSE IV SCH (12:00)
[2016-12-07] MEDS ORDERED: NACL 0.9% 250ML 250 ML ONE (12:07)
[2016-12-07] MEDS ORDERED: NACL 0.9% 1000 ML 1,000 ML ONE (12:33)
--- NOTE | 2016-12-07 12:51 | Consultation ---
History of Present Illness Consult date: 12/07/16 Consult reason: congestive heart failure History of present illness: 61 YO man with h/o CAD s/p prior PCI and ischemic cardiomyopathy who is currently intubated and mechanically ventilated. History was obtained from medical records. He apparently presented to ED with worsening confusion and dyspnea. He was found to have pneumonia and has been intubated. CT has been ruled out with negative cardiac enzymes. ECG reveals sinus tachycardia at [address] changes. Past History Past Medical History: CAD, diabetes, heart failure (systolic dysfunction ejection fraction 10-15%), hypertension Past Surgical History: PTCA Social history: smoking Family history: CAD, hypertension Medications and Allergies Allergies Allergy/AdvReac Type Severity Reaction Status Date / Time No Known Allergies Allergy Verified 08/09/14 20:15 Home Medications Medication Instructions Recorded Confirmed Last Taken Type Aspirin [Aspirin TAB] 81 mg PO QDAY #30 tablet 01/28/15 12/06/16 1 Day Ago Rx Furosemide [Lasix TAB] 20 mg PO DAILY #30 tablet 01/28/15 12/06/16 1 Day Ago Rx ISOSORBIDE MONOnitrate [Imdur ER] 30 mg PO DAILY #30 tablet 01/28/15 12/06/16 1 Day Ago Rx Lisinopril [Zestril] 2.5 mg PO QDAY #30 tablet 01/28/15 12/06/16 1 Day Ago Rx Metoprolol [Lopressor TAB] 12.5 mg PO BID #60 tablet 01/28/15 12/06/16 1 Day Ago Rx Pantoprazole [Protonix TAB] 20 mg PO BID #60 tablet. 01/28/15 12/06/16 1 Day Ago Rx Simvastatin [Zocor TAB] 20 mg PO QHS #30 tablet 01/28/15 12/06/16 1 Day Ago Rx Magnesium Oxide [Mag-Ox] 400 mg PO QDAY #5 tablet 02/02/16 12/06/16 1 Day Ago Rx Active Meds: Active Medications Acetaminophen (Tylenol) 650 mg [place] Q4H PRN PRN Reason: Pain, Mild (1-3) Last Admin: 12/07/16 09:00 Dose: 650 mg Albuterol/Ipratropium (Duoneb 0.5 Mg-3 Mg/3 Ml Soln) 1 ampul IH Q6HRT RENITA Last Admin: 12/07/16 07:32 Dose: 1 ampul Aspirin (Baby Aspirin) 81 mg PO QDAY [facility] Last Admin: 12/07/16 10:15 Dose: 81 mg Enoxaparin Sodium (Lovenox) 40 mg SUB-Q QDAY@2200 [facility] Last Admin: 12/06/16 23:06 Dose: 40 mg Furosemide (Lasix) 40 mg IV QDAY [facility] Last Admin: 12/07/16 10:10 Dose: 40 mg Hydralazine HCl (Apresoline) 10 mg IV Q4HR PRN PRN Reason: Hypertension MORE THAN 160/90 Hydrophilic Ointment (Vaseline Lip Therapy) 1 applic TP Q2HR PRN PRN Reason: Dry Lips Last Admin: 12/07/16 12:44 Dose: 1 applic Midazolam HCl (Versed/Ns 100mg/100ml) 100 mg in 100 mls @ 1 mls/hr IV TITR RENITA ; 1 MG/HR PRN Reason: Protocol Last Titration: 12/07/16 12:28 Dose: 1 mg/hr, 1 mls/hr Fentanyl Citrate (Fentanyl Drip Premix) 2,000 mcg in 100 mls @ 4.196 mls/hr IV TITR RENITA; 1 MCG/KG/HR PRN Reason: Protocol Last Titration: 12/07/16 12:27 Dose: 1 mcg/kg/hr, 4.196 mls/hr Azithromycin 500 mg/ Sodium (Chloride) 250 mls @ 250 mls/hr IV Q24H [facility] Last Admin: 12/06/16 20:35 Dose: 250 mls/hr Piperacillin Sod/Tazobactam Sod (Zosyn/Ns 4.5gm/100ml) 4.5 gm in 100 mls @ 200 mls/hr IV Q8HR RENITA PRN Reason: Protocol Vancomycin HCl 1,500 mg/ (Sodium Chloride) 500 mls @ 333.333 mls/hr IV ONCE ONE Stop: 12/07/16 14:29 Last Admin: 12/07/16 12:39 Dose: 333.333 mls/hr Vancomycin HCl 1,250 mg/ (Sodium Chloride) 250 mls @ 166.667 mls/hr IV Q12H [facility] Isosorbide Mononitrate (Imdur) 30 mg PO DAILY [facility] Last Admin: 12/07/16 11:21 Dose: Not Given Lisinopril (Zestril) 10 mg PO QDAY [facility] Last Admin: 12/07/16 10:16 Dose: 10 mg Lorazepam (Ativan) 2 mg IV Q4H PRN PRN Reason: Agitation Metoprolol Tartrate (Lopressor) 12.5 mg PO BID [facility] Last Admin: 12/07/16 11:21 Dose: Not Given Multi-Ingred Cream/Lotion/Oil/Oint (Artificial Tears Ophth Oint) 1 applic OU Q4HR PRN PRN Reason: Dry Eye(s) Pantoprazole Sodium (Protonix) 40 mg IV QDAY [facility] Last Admin: 12/07/16 10:08 Dose: 40 mg Simvastatin (Zocor) 20 mg PO QHS [facility] Last Admin: 12/06/16 23:06 Dose: 20 mg Vancomycin HCl (Vancomycin Pharmacy To Dose) 1 each IV PKCONSULT [facility] PRN Reason: Protocol Review of Systems ROS unobtainable: due to endotracheal tube Physical Examination Vital Signs Temp Pulse Resp BP Pulse Ox 101.1 F H 134 H 28 H 125/81 100 12/06/16 15:10 12/06/16 15:10 12/06/16 15:10 12/06/16 15:10 12/06/16 15:10 General appearance: other (orally intubated.) Neck: Positive: neck supple, trachea midline Cardiac: Positive: Reg Rate and Rhythm Lungs: Positive: Rhonchi (coarse breath sounds bilaterally) Abdomen: Positive: Soft, Active Bowel Sounds Extremities: Absent: edema Results 12/07/16 05:30 12/07/16 05:30 Cardiac Enzymes 12/07/16 12/07/16 12/07/16 Range/Units 00:35 05:30 06:58 AST 27 (5-40) units/L CK-MB (CK-2) 3.2 2.8 (0.0-4.0) ng/mL CBC 12/07/16 Range/Units 05:30 WBC 9.4 (4.5-11.0) K/mm3 RBC 4.41 (3.65-5.03) M/mm3 Hgb 13.3 (11.8-15.2) gm/dl Hct 39.7 (35.5-45.6) % Plt Count 93 L (140-440) K/mm3 Lymph # 1.6 (1.2-5.4) K/mm3 [place] # 1.1 H (0.0-0.8) K/mm3 Eos # 0.0 (0.0-0.4) K/mm3 Baso # 0.0 (0.0-0.1) K/mm3 Comprehensive Metabolic Panel 12/07/16 Range/Units 05:30 Sodium 137 (137-145) mmol/L Potassium 4.0 (3.6-5.0) mmol/L Chloride 99.2 (98-107) mmol/L Carbon Dioxide 24 (22-30) mmol/L BUN 14 (9-20) mg/dL Creatinine 0.6 L (0.8-1.5) mg/dL Glucose 168 H (75-100) mg/dL Calcium 7.8 L (8.4-10.2) mg/dL Direct Bilirubin 0.7 H (0-0.2) mg/dL Indirect Bilirubin 0.4 mg/dL AST 27 (5-40) units/L ALT 14 (7-56) units/L Alkaline Phosphatase 49 (35-129) units/L Total Protein 6.7 (6.3-8.2) g/dL Albumin 2.6 L (3.9-5) g/dL Assessment and Plan Chronic systolic heart failure CAP Ischemic cardiomyopathy H/O CAD s/p PCI Recommend: Continue current therapy including gentle diuresis and antibiotics Repeat echocardiogram
[2016-12-07] MEDS ORDERED: VANCOMYCIN VIAL 1,500 MG in NACL 0.9% 500 ML 500 ML IV ONE (13:00)
--- NOTE | 2016-12-07 13:28 | Consultation ---
History of Present Illness Consult date: 12/07/16 Requesting physician: WALT EARL History of present illness: PULMONARY/CCM CONSULT NOTE (Full dictation # [id number]) Please see dictated notes for full details Past History Past Medical History: CAD, diabetes, heart failure (systolic dysfunction ejection fraction 10-15%), hypertension Past Surgical History: PTCA Social history: smoking Family history: CAD, hypertension Medications and Allergies Allergies Allergy/AdvReac Type Severity Reaction Status Date / Time No Known Allergies Allergy Verified 08/09/14 20:15 Home Medications Medication Instructions Recorded Confirmed Last Taken Type Aspirin [Aspirin TAB] 81 mg PO QDAY #30 tablet 01/28/15 12/06/16 1 Day Ago Rx Furosemide [Lasix TAB] 20 mg PO DAILY #30 tablet 01/28/15 12/06/16 1 Day Ago Rx ISOSORBIDE MONOnitrate [Imdur ER] 30 mg PO DAILY #30 tablet 01/28/15 12/06/16 1 Day Ago Rx Lisinopril [Zestril] 2.5 mg PO QDAY #30 tablet 01/28/15 12/06/16 1 Day Ago Rx Metoprolol [Lopressor TAB] 12.5 mg PO BID #60 tablet 01/28/15 12/06/16 1 Day Ago Rx Pantoprazole [Protonix TAB] 20 mg PO BID #60 tablet. 01/28/15 12/06/16 1 Day Ago Rx Simvastatin [Zocor TAB] 20 mg PO QHS #30 tablet 01/28/15 12/06/16 1 Day Ago Rx Magnesium Oxide [Mag-Ox] 400 mg PO QDAY #5 tablet 02/02/16 12/06/16 1 Day Ago Rx Active Meds: Active Medications Acetaminophen (Tylenol) 650 mg [place] Q4H PRN PRN Reason: Pain, Mild (1-3) Last Admin: 12/07/16 09:00 Dose: 650 mg Albuterol/Ipratropium (Duoneb 0.5 Mg-3 Mg/3 Ml Soln) 1 ampul IH Q6HRT [facility] Last Admin: 12/07/16 07:32 Dose: 1 ampul Aspirin (Baby Aspirin) 81 mg PO QDAY [facility] Last Admin: 12/07/16 10:15 Dose: 81 mg Enoxaparin Sodium (Lovenox) 40 mg SUB-Q QDAY@2200 [facility] Last Admin: 12/06/16 23:06 Dose: 40 mg Furosemide (Lasix) 40 mg IV QDAY [facility] Last Admin: 12/07/16 10:10 Dose: 40 mg Hydralazine HCl (Apresoline) 10 mg IV Q4HR PRN PRN Reason: Hypertension MORE THAN 160/90 Hydrophilic Ointment (Vaseline Lip Therapy) 1 applic TP Q2HR PRN PRN Reason: Dry Lips Last Admin: 12/07/16 12:44 Dose: 1 applic Midazolam HCl (Versed/Ns 100mg/100ml) 100 mg in 100 mls @ 1 mls/hr IV TITR RENITA ; 1 MG/HR PRN Reason: Protocol Last Titration: 12/07/16 12:28 Dose: 1 mg/hr, 1 mls/hr Fentanyl Citrate (Fentanyl Drip Premix) 2,000 mcg in 100 mls @ 4.196 mls/hr IV TITR RENITA; 1 MCG/KG/HR PRN Reason: Protocol Last Titration: 12/07/16 12:27 Dose: 1 mcg/kg/hr, 4.196 mls/hr Azithromycin 500 mg/ Sodium (Chloride) 250 mls @ 250 mls/hr IV Q24H [facility] Last Admin: 12/06/16 20:35 Dose: 250 mls/hr Piperacillin Sod/Tazobactam Sod (Zosyn/Ns 4.5gm/100ml) 4.5 gm in 100 mls @ 200 mls/hr IV Q8HR [facility] PRN Reason: Protocol Vancomycin HCl 1,500 mg/ (Sodium Chloride) 500 mls @ 333.333 mls/hr IV ONCE ONE Stop: 12/07/16 14:29 Last Admin: 12/07/16 12:39 Dose: 333.333 mls/hr Vancomycin HCl 1,250 mg/ (Sodium Chloride) 250 mls @ 166.667 mls/hr IV Q12H [facility] Isosorbide Mononitrate (Imdur) 30 mg PO DAILY [facility] Last Admin: 12/07/16 11:21 Dose: Not Given Lisinopril (Zestril) 10 mg PO QDAY [facility] Last Admin: 12/07/16 10:16 Dose: 10 mg Lorazepam (Ativan) 2 mg IV Q4H PRN PRN Reason: Agitation Metoprolol Tartrate (Lopressor) 12.5 mg PO BID [facility] Last Admin: 12/07/16 11:21 Dose: Not Given Multi-Ingred Cream/Lotion/Oil/Oint (Artificial Tears Ophth Oint) 1 applic OU Q4HR PRN PRN Reason: Dry Eye(s) Pantoprazole Sodium (Protonix) 40 mg IV QDAY [facility] Last Admin: 12/07/16 10:08 Dose: 40 mg Simvastatin (Zocor) 20 mg PO QHS [facility] Last Admin: 12/06/16 23:06 Dose: 20 mg Vancomycin HCl (Vancomycin Pharmacy To Dose) 1 each IV PKCONSULT [facility] PRN Reason: Protocol Physical Examination Vital signs: Vital Signs Temp Pulse Resp BP Pulse Ox 101.1 F H 134 H 28 H 125/81 100 12/06/16 15:10 12/06/16 15:10 12/06/16 15:10 12/06/16 15:10 12/06/16 15:10 Results - Laboratory Findings CBC and BMP: 12/07/16 05:30 12/07/16 05:30 ABG POC ABG pH 7.394 (7.35-7.45) 12/07/16 05:42 POC ABG pCO2 42.6 (35-45) 12/07/16 05:42 POC ABG pO2 91 (80-105) 12/07/16 05:42 POC ABG HCO3 26.0 12/07/16 05:42 POC ABG Total CO2 27 12/07/16 05:42 POC ABG O2 Sat 97 12/07/16 05:42 PT/INR, D-dimer PT 14.0 Sec. (12.2-14.9) 12/06/16 16:07 INR 1.09 (0.87-1.13) 12/06/16 16:07 Abnormal lab findings: Abnormal Labs 12/07/16 12/07/16 12/07/16 00:35 05:30 05:30 RDW 13.0 L Plt Count 93 L [place] % (Auto) 11.2 H [place] # 1.1 H Seg Neutrophils % 71.3 H Creatinine 0.6 L Glucose 168 H Calcium 7.8 L Direct Bilirubin 0.7 H Total Creatine Kinase 343 H Albumin 2.6 L 12/07/16 06:58 RDW Plt Count [place] % (Auto) [place] # Seg Neutrophils % Creatinine Glucose Calcium Direct Bilirubin Total Creatine Kinase 242 H Albumin
[2016-12-07] MEDS ORDERED: ZOSYN/NS 4.5GM/100ML 4.5 GM/100 ML VIAL IV SCH (14:00)
[2016-12-07] MEDS ORDERED: INTROPIN DRIP 800 MG/D5W 250 ML 800 MG/250 ML BAG IV SCH (17:00)
[2016-12-07] MEDS: VERSED/NS 100MG/100ML 100 MG/100 ML BAG IV SCH (19:00)
[2016-12-07] MEDS: LOVENOX SUB-Q SCH (23:11)
[2016-12-07] MEDS: ZOCOR PO SCH (23:11)
--- NOTE | 2016-12-07 23:40 | Consultation ---
CONSULTING PHYSICIAN: Herbert Enriquez MD REASON FOR CONSULTATION: Acute respiratory failure, on mechanical ventilatory support, altered mental status. CHIEF COMPLAINT AND HISTORY OF PRESENT ILLNESS: The patient is a 61-year-old male with past medical history significant amongst other things for a diagnosis of cardiomyopathy, which showed up in the Emergency Room yesterday after he was found by his ex- in bed with altered mental status. He had been seen about a day prior. In the Emergency Room, he was hypoxemic on room air and not really protecting his airways, appeared to be delirious, was combative and agitated. He was tachycardic. He was intubated, mostly for airway protection and has been on mechanical ventilator since. He has had done well up until recently when his blood pressures has been trended on the low side. When I stopped by to see him, he remained on the mechanical ventilator. He was responsive. He admitted to episodes of nausea and vomiting before coming to the hospital and could not rule out some element of aspiration. He also complained of some chest pain. With regards to his tobacco use or abuse history, the records mention that he has a 20+ pack year tobacco smoking history. That really is as much of the history of presentation as I have. PAST MEDICAL HISTORY: Again, significant for hypertension, coronary artery disease, congestive heart failure, diabetes, history of hepatitis C, history of obesity. PAST SURGICAL HISTORY: He has had coronary artery stenting, multiple times, MEDICATIONS: He was on at the time I stopped by to see him, according to the medication administration record included the following: DuoNeb treatments nebulized q. 6 hours, aspirin 81 mg p.o. daily, Zithromax 500 mg IV daily, dopamine drip had just been ordered to begin at 2 mcg per kg per minute, Lovenox 40 mg subcutaneous daily, fentanyl drip at 1 mcg/kg per hour, Lasix 40 mg IV daily, hydralazine 10 mg IV q.4h. p.r.n. hypertension, Imdur 30 mg p.o. daily. All p.o. meds via the feeding tube. Lisinopril 10 mg p.o. daily, Ativan 2 mg IV q.4 hours p.r.n. agitation, metoprolol 12.5 mg p.o. b.i.d. Versed drip has been ordered, 1 mg per hour. Protonix 40 mg IV daily. Zosyn 4.5 grams IV q. 8 hours. Vancomycin, received a 1.25 gram dose earlier. Zocor 20 mg p.o. at bedtime. ALLERGIES: No known drug allergies. DIET: Slightly obese, acute weight loss or gain history is unknown. FAMILY AND SOCIAL HISTORY: Lives in the community. Ten plus pack year tobacco smoking history. No alcohol or illicit drug use or abuse history reported. REVIEW OF SYSTEMS: Difficult to obtain secondary to the patient's medical and mental condition. Since he has been here, no gross hematochezia or melena. No gross hematuria. He denies dysuria. No hematemesis. No hemoptysis. No bloody tracheal secretions. No witnessed seizures. He did complain of the chest pain. Review of systems otherwise unobtainable or as in the body of history above. PHYSICAL EXAMINATION: VITAL SIGNS: At presentation, he had a temperature of 101.1 degrees Fahrenheit, pulse of 134, respiratory rate of 28, blood pressure 125/81, oxygen sats were 100%, inspired oxygen concentration was not recorded. HEAD, EYES, EARS, NOSE, AND THROAT: Pupils are equal, round, about 3-4 mm, reactive to light. Extraocular muscle movements appeared intact. Endotracheal tube was in place, taped at the lips around 23-24 cm. Grossly, no palpable lymph nodes in the supraclavicular or submandibular lymph node chains. LUNGS: Auscultation of both lung ugarte revealed left greater than right, rales, left lung rales, most of lung zones and then right lower lobe rales, no wheezing. HEART: Heart sounds 1 and 2 are heard, regular rate and rhythm at the time of my evaluation. ABDOMEN: Soft, full, bowel sounds positive, nontender. EXTREMITIES: Without overt digital clubbing, cyanosis, or pedal edema. NEUROLOGIC: The exam was grossly nonfocal. LABORATORY DATA: From my review are as follows: Admission white cell count 8200 with a hemoglobin of 14.5, hematocrit of 42.8, platelet count of 97. INR was 1.09. Arterial blood gas showed a pH of 7.35, pCO2 of 43, pO2 of 85 that was on 60% FiO2, ventilator settings were not recorded. Serum sodium was 136, potassium 4.0, chloride 97, bicarbonate 25, BUN 14, creatinine 0.6, glucose was 195. Lactic acid level within normal limits. Ammonia within normal limits. CPK up at 961, trending downwards. Troponin was within normal limits. Urinalysis was negative for nitrites and leukocyte esterase, less than 1 white cell per high power field, actually really bland. Urine drug screen was negative. Alcohol, Tylenol, aspirin screens were within expected limits. Blood culture are all, no growth to date. Radiographic imaging was done. I have reviewed x-rays, chest x-ray in particular. I have also reviewed the radiologist's interpretation. I do agree with him. X-ray shows left lower lobe/left lung greater than right lung infiltrates, borderline cardiomegaly are more consistent with possible asymmetric pulmonary edema versus aspiration pneumonia. Endotracheal tube tip is at the upper level of the clavicular heads, could be advanced 1-2 cm. No gross pneumothorax, no gross bony fracture. Chest x-ray today shows evidence of hyperinflation with flattening of the hemidiaphragm on the right side. I cannot rule out a plaque-like lesion over the right dome of the diaphragm on the chest x-ray that is a little difficult to call and probably see that better on the CT scan, perhaps an element of asbestosis. Bilateral pulmonary infiltrates about the same. CT of the cervical spine was done, no evidence of an acute fracture. CT of the brain was done, no acute intracranial pathology. ASSESSMENT AND PLAN: We have an elderly gentleman in with acute hypoxemic respiratory failure and possible aspiration pneumonia. I am not so convinced about the true infectious potential of this pneumonia/pneumonitis. From a respiratory standpoint, we will continue to wean O2 sats to keep oxygen, I should say inspired oxygen concentration to keep O2 sats greater than or equal to about 92-94%. Aspiration precautions and other ventilator bundles will be instituted. Bronchodilators and pulmonary toilet will be per the respiratory therapist. The plan will be to wean him as soon as possible. Hopefully, we can start that as early as tomorrow morning, still a little bit hemodynamically unstable at this point. The x-ray is consistent with an element of chronic obstructive lung disease and especially in the setting of his low blood pressures, I will consider empiric corticosteroid therapy, may be of some benefit , I will get a random cortisol level at first. From a cardiovascular standpoint, he has been seen by the parimutuel cashier. Vasopressors are going to be titrated to keep MAPs greater than or equal to about 60 mmHg. The troponins were unremarkable, but I will defer to Cardiology in terms of an acute coronary syndrome workup. A 2D echocardiogram will be followed, especially in light of his cardiomyopathy. From a renal standpoint, no major electrolyte abnormalities at this point. BUN and creatinine does not suggest significant intravascular volume depletion. We will follow inputs and outputs and correct electrolytes as necessary. From infectious disease standpoint, I do feel that might be a little bit of to have him on this amount of broad spectrum antibiotic therapy. I will deescalate antibiotics at this time in conjunction with review of the CRP level. I will put him on Levaquin monotherapy, discontinue vancomycin, discontinue Zosyn. Anti-infectives will ultimately be deescalated based on results of clinical and microbiologic data. We will follow cultures, which are all negative at this time. From a GI and nutritional standpoint, enteral nutrition will be the feeding modality of choice. Aspiration precautions will be maintained. He is appropriately on GI prophylaxis. We will follow him clinically. From a LOADING SHOV[employer] standpoint, the exam is grossly nonfocal. Neuro imaging is negative. We will follow him clinically. From a general and hospital healthcare maintenance standpoint, he is on GI and DVT prophylaxis. Flu and pneumonia vaccination will be per protocol. Thank you very much for the consult Dr. Enriquez, Dr. Blanco. We will follow along and make further recommendations as picture progresses/becomes clearer. He is critically ill on life-sustaining interventions including mechanical ventilatory support and about to be started on vasopressors at risk for further deterioration including . At this point, I have spent about 30-35 minutes of critical care time without overlap and excluding any procedural time that may be necessary. JOB# [id number] TOYA/WILMAN
[2016-12-08] MEDS ORDERED: VANCOMYCIN VIAL 1,500 MG in NACL 0.9% 500 ML 500 ML IV SCH (01:00)
[2016-12-08] MEDS: DUONEB 0.5 MG-3 MG/3 ML SOLN IH SCH ×4 (01:45→21:16)
[2016-12-08] MEDS: VANCOMYCIN VIAL 1,250 MG in NACL 0.9% 250ML 250 ML IV SCH ×2 (03:05→14:17)
[2016-12-08] MEDS: fentaNYL DRIP Premix 2,000 MCG/100 ML BAG IV SCH ×2 (03:34→14:15)
[2016-12-08] MEDS: ATIVAN IV PRN (03:55)
[2016-12-08 07:06] LABS: ISTAT Base Excess 0; ISTAT HCO3 25.3; ISTAT PCO2 42.1 (35-45); ISTAT PH 7.386 (7.35-7.45); ISTAT PO2 90 (80-105); ISTAT SO2 97; ISTAT TCO2 27
--- NOTE | 2016-12-08 08:02 | XRay Report ---
CHEST 1 VIEW INDICATION: Follow up respiratory failure. COMPARISON: 6:34 PM yesterday. FINDINGS: Portable, frontal chest radiograph, 2:18 AM, 12/08/2016 reveals stable cardiomediastinal silhouette, supporting devices, appearance of the lungs and osseous structures, providing for the difference in technique. Minimal fluid or thickening along the right minor fissure is new. CONCLUSION: Congestive appearance and supporting devices again noted, as described. Thank you for the opportunity to participate in this patient's care.
--- NOTE | 2016-12-08 09:57 | XRay Report ---
PORTABLE CHEST: INDICATION: Central line placement. COMPARISON: 1:42 AM earlier today. FINDINGS: Portable, frontal chest radiographs, 2 images, 6:34 PM, 12/07/2016 demonstrate new right IJ catheter tip about the cavoatrial junction. Interval esophagogastric tube advancement, now extending beyond the distal esophagus and the inferior radiographic margin. Stable ET tube tip approximately 5.5 cm above the evan. Stable cardiomediastinal silhouette with worsening congestive bronchovascular prominence throughout both lungs. Left retrocardiac opacity also now not excluded with obscured left hemidiaphragm. Right hemidiaphragmatic calcifications again noted as also EKG leads and osseous structures. CONCLUSION: 1. Interval uncomplicated right IJ catheter placement and esophagogastric tube advancement, as described. Stable endotracheal tube. 2. Worsening pulmonary vascular congestion with new/possibly developing left basilar opacity, as described. Follow-up on subsequent exams as well. Thank you for the opportunity to participate in this patient's care.
[2016-12-08] MEDS: BABY ASPIRIN PO SCH (10:05)
[2016-12-08] MEDS: LASIX IV SCH (10:06)
[2016-12-08] MEDS: PROTONIX IV SCH (10:08)
[2016-12-08] MEDS: LEVAQUIN 500MG/100ML 500 MG/100 ML BAG IV SCH (10:15)
[2016-12-08] MEDS: IMDUR PO SCH (10:26)
[2016-12-08] MEDS: LOPRESSOR PO SCH ×2 (10:27→22:02)
[2016-12-08] MEDS: ZESTRIL PO SCH (10:27)
--- NOTE | 2016-12-08 10:51 | XRay Report ---
PORTABLE CHEST: INDICATION: Follow-up respiratory failure. COMPARISON: Yesterday. FINDINGS: Portable, frontal chest radiograph, 1:42 AM, 12/07/2016 again demonstrates endotracheal tube tip about the level of medial clavicular ends. Questionable esophagogastric tube tip may project about T1-T2 level. Cardiomediastinal silhouette and bronchovascular prominence less exaggerated, suggesting improved congestion, though minimal fluid or thickening along the right minor fissure remains. Dense right hemidiaphragmatic calcifications as also few possible pleural calcifications about the left lung base and bilateral mid lung zones again noted. Slight left basilar atelectasis. Stable EKG leads and osseous structures. CONCLUSION: Possible slight improved congestive appearance radiographically, stable endotracheal tube and suboptimally positioned esophagogastric tube questioned about the thoracic inlet, as described. Please correlate. Above results not called to the referring physician as a follow-up exam from 6:34 PM obtained later today already available in PACS, demonstrating satisfactory esophagogastric tube repositioning. Thank you for the opportunity to participate in this patient's care.
--- NOTE | 2016-12-08 11:58 | Progress Note ---
Assessment and Plan Acute respiratory failure intubated on the vent Pneumonia Altered mental status Chronic systolic heart failure Ischemic cardiomyopathy Echo 2015: EF 15-20% Hx of CAD [facility] 2014: patent mid LAD stent, patent diagonal branch stent, patent mid obtuse marginal stent. Nonobstructive disease of the RCA. EF 30-35% Recommend: Repeat echocardiogram results pending. Subjective Date of service: 12/08/16 Interval history: Patient remains intubated and sedated on the ventilator. On pressors for support. Objective Vital Signs Temp Pulse Pulse Resp Resp BP BP 12/08/16 11:09 78 17 12/08/16 10:26 93 H 105/63 12/08/16 10:00 100.3 F H 12/08/16 09:00 79 13 12/08/16 08:30 90 17 117/59 12/08/16 08:15 92 H 21 119/62 12/08/16 08:00 90 19 115/62 12/08/16 07:58 91 H 115/62 12/08/16 07:45 91 H 19 115/62 12/08/16 07:30 92 H 19 118/62 12/08/16 07:15 92 H 20 115/63 12/08/16 07:00 92 H 22 116/63 12/08/16 06:45 93 H 22 118/64 12/08/16 06:30 93 H 20 119/64 12/08/16 06:15 92 H 22 117/63 12/08/16 06:00 91 H 16 116/63 12/08/16 05:45 93 H 22 108/64 12/08/16 05:30 96 H 20 108/64 12/08/16 05:15 96 H 21 111/62 12/08/16 05:00 94 H 21 117/64 12/08/16 04:45 95 H 18 116/63 12/08/16 04:30 99 H 18 116/63 12/08/16 04:15 100 H 23 111/60 12/08/16 04:00 107 H 22 133/40 12/08/16 03:45 106 H 20 132/74 12/08/16 03:30 102 H 18 120/65 12/08/16 03:00 98 H 19 111/60 12/08/16 02:30 100 H 18 109/49 12/08/16 02:00 101 H 100 H 20 25 H 118/57 12/08/16 01:30 87 19 116/62 12/08/16 01:00 86 17 116/61 12/08/16 00:30 87 20 115/59 12/08/16 00:00 87 19 120/61 12/07/16 23:30 86 20 117/61 12/07/16 23:00 83 19 101/56 12/07/16 22:49 88 97/58 12/07/16 22:30 84 19 97/58 12/07/16 22:20 83 18 101/59 12/07/16 22:00 82 17 96/55 12/07/16 21:30 83 22 95/52 12/07/16 21:00 90 15 93/53 12/07/16 20:30 88 19 104/50 12/07/16 20:13 99.5 F 12/07/16 20:01 86 20 12/07/16 20:00 87 20 113/58 12/07/16 19:54 85 96/56 12/07/16 19:50 84 21 12/07/16 19:30 86 20 102/56 12/07/16 19:00 82 20 96/56 12/07/16 18:30 83 19 91/52 12/07/16 18:00 82 21 84/45 12/07/16 17:30 82 19 84/45 12/07/16 17:20 80 87/58 12/07/16 17:00 80 19 87/48 12/07/16 16:30 81 20 86/50 12/07/16 16:00 82 21 84/48 12/07/16 15:44 99.5 F 82 20 81/46 12/07/16 15:30 83 20 81/46 12/07/16 15:00 84 20 81/48 12/07/16 14:30 85 22 80/46 12/07/16 14:15 94 H 24 12/07/16 14:00 81 20 84/49 12/07/16 13:50 98 H 20 12/07/16 13:30 82 21 84/48 12/07/16 13:00 100.8 F H 87 20 86/50 85/50 12/07/16 12:30 92 H 22 76/46 12/07/16 12:00 95 H 19 76/45 Pulse Ox 12/08/16 11:09 12/08/16 10:26 12/08/16 10:00 12/08/16 09:00 12/08/16 08:30 96 12/08/16 08:15 96 12/08/16 08:00 95 12/08/16 07:58 96 12/08/16 07:45 12/08/16 07:30 95 12/08/16 07:15 12/08/16 07:00 12/08/16 06:45 12/08/16 06:30 12/08/16 06:15 96 12/08/16 06:00 97 12/08/16 05:45 97 12/08/16 05:30 12/08/16 05:15 12/08/16 05:00 12/08/16 04:45 97 12/08/16 04:30 97 12/08/16 04:15 96 12/08/16 04:00 93 12/08/16 03:45 95 12/08/16 03:30 97 12/08/16 03:00 96 12/08/16 02:30 93 12/08/16 02:00 97 12/08/16 01:30 12/08/16 01:00 96 12/08/16 00:30 12/08/16 00:00 96 12/07/16 23:30 12/07/16 23:00 97 12/07/16 22:49 12/07/16 22:30 12/07/16 22:20 98 12/07/16 22:00 96 12/07/16 21:30 96 12/07/16 21:00 95 12/07/16 20:30 98 12/07/16 20:13 12/07/16 20:01 12/07/16 20:00 12/07/16 19:54 96 12/07/16 19:50 12/07/16 19:30 12/07/16 19:00 94 12/07/16 18:30 96 12/07/16 18:00 94 12/07/16 17:30 95 12/07/16 17:20 97 12/07/16 17:00 12/07/16 16:30 12/07/16 16:00 12/07/16 15:44 97 12/07/16 15:30 96 12/07/16 15:00 96 12/07/16 14:30 12/07/16 14:15 12/07/16 14:00 12/07/16 13:50 12/07/16 13:30 12/07/16 13:00 98 12/07/16 12:30 12/07/16 12:00 - Physical Examination General: Other (intubated on the vent) Cardiac: Positive: Reg Rate and Rhythm
--- NOTE | 2016-12-08 12:57 | Progress Note ---
Assessment and Plan Assessment and plan: 61-year-old male patient well known to our service with significant past medical history of ischemic cardiomyopathy with ejection fraction of 10-15%, hypertension, dyslipidemia type 2 diabetes mellitus ongoing tobacco use hypertension history of metabolic encephalopathy during last admission was brought to the emergency room with altered level of consciousness and confusion , patient was found at home by his ex- with altered level of consciousness. Patient was unable to protect airway , and patient was promptly intubated and placed on ventilatory support 1. Sepsis with shock continue sepsis protocol, expand antibiotics broad-spectrum antibiotics, patient will be initiated on pressors, PICC line team to please pick line 2. Pneumonia Follow-up serum cultures and blood cultures, continue antibiotics as above 3. Acute respiratory failure Continue ventilator, we'll attempt to wean when mentation is improved 4. CHF Patient was actually hypovolemic, status post IV fluid boluses, watch his fluid status closely 5. Acute toxic encephalopathy Most likely due to sepsis, care as above Critical care time 32 minutes History Interval history: Patient remains intubated, his RN stated that his blood pressure has been dropping despite fluid boluses. He has had copious amounts of thick yellow sputum suctioned, which have been sent for culture Hospitalist Physical - Physical exam Narrative exam: General: Intubated, sedated, toxic appearance HEENT: MMM, EOMI cardiac: S1-S2 heard lungs: Ventilated breath sounds, right-sided crackles abdomen: soft, nontender, nondistended bowel sounds positive extremities: no edema clubbing or cyanosis Skin: no rash or lesion Neuro: Intubated, sedated - Constitutional Vitals: Temp Pulse Resp BP Pulse Ox 100.3 F H 113 H 17 94/60 97 12/08/16 10:00 12/08/16 12:30 12/08/16 11:09 12/08/16 12:30 12/08/16 12:30 General appearance: Present: other (orally intubated.) Results - Labs CBC & Chem 7: 12/07/16 05:30 12/07/16 05:30 Labs: Laboratory Last Values WBC 9.4 K/mm3 (4.5-11.0) 12/07/16 05:30 RBC 4.41 M/mm3 (3.65-5.03) 12/07/16 05:30 Hgb 13.3 gm/dl (11.8-15.2) 12/07/16 05:30 Hct 39.7 % (35.5-45.6) 12/07/16 05:30 MCV 90 fl (84-94) 12/07/16 05:30 MCH 30 pg (28-32) 12/07/16 05:30 MCHC 34 % (32-34) 12/07/16 05:30 RDW 13.0 % (13.2-15.2) L 12/07/16 05:30 Plt Count 93 K/mm3 (140-440) L 12/07/16 05:30 Lymph % (Auto) 17.0 % (13.4-35.0) 12/07/16 05:30 [place] % (Auto) 11.2 % (0.0-7.3) H 12/07/16 05:30 Eos % (Auto) 0.1 % (0.0-4.3) 12/07/16 05:30 Baso % (Auto) 0.4 % (0.0-1.8) 12/07/16 05:30 Lymph # 1.6 K/mm3 (1.2-5.4) 12/07/16 05:30 [place] # 1.1 K/mm3 (0.0-0.8) H 12/07/16 05:30 Eos # 0.0 K/mm3 (0.0-0.4) 12/07/16 05:30 Baso # 0.0 K/mm3 (0.0-0.1) 12/07/16 05:30 Seg Neutrophils % 71.3 % (40.0-70.0) H 12/07/16 05:30 Seg Neutrophils # 6.7 K/mm3 (1.8-7.7) 12/07/16 05:30 PT 14.0 Sec. (12.2-14.9) 12/06/16 16:07 INR 1.09 (0.87-1.13) 12/06/16 16:07 APTT 29.1 Sec. (24.2-36.6) 12/06/16 16:07 POC ABG pH 7.386 (7.35-7.45) 12/08/16 06:12 POC ABG pCO2 42.1 (35-45) 12/08/16 06:12 POC ABG pO2 90 (80-105) 12/08/16 06:12 POC ABG HCO3 25.3 12/08/16 06:12 POC ABG Total CO2 27 12/08/16 06:12 POC ABG O2 Sat 97 12/08/16 06:12 POC ABG Base Excess 0 12/08/16 06:12 FiO2 60 % 12/08/16 06:12 Sodium 137 mmol/L (137-145) 12/07/16 05:30 Potassium 4.0 mmol/L (3.6-5.0) 12/07/16 05:30 Chloride 99.2 mmol/L (98-107) 12/07/16 05:30 Carbon Dioxide 24 mmol/L (22-30) 12/07/16 05:30 Anion Gap 18 mmol/L 12/07/16 05:30 BUN 14 mg/dL (9-20) 12/07/16 05:30 Creatinine 0.6 mg/dL (0.8-1.5) L 12/07/16 05:30 Estimated GFR > 60 ml/min 12/07/16 05:30 BUN/Creatinine Ratio 23.33 % 12/07/16 05:30 Glucose 168 mg/dL (75-100) H 12/07/16 05:30 POC Glucose 175 (70-105) H 12/07/16 18:30 Lactic Acid 1.2 mmol/L (0.7-2.0) 12/08/16 04:35 Calcium 7.8 mg/dL (8.4-10.2) L 12/07/16 05:30 Phosphorus 3.0 mg/dL (2.5-4.5) 12/07/16 05:30 Magnesium 1.9 mg/dL (1.7-2.3) 12/07/16 05:30 Total Bilirubin 1.1 mg/dL (0.1-1.2) 12/07/16 05:30 Direct Bilirubin 0.7 mg/dL (0-0.2) H 12/07/16 05:30 Indirect Bilirubin 0.4 mg/dL 12/07/16 05:30 AST 27 units/L (5-40) 12/07/16 05:30 ALT 14 units/L (7-56) 12/07/16 05:30 Alkaline Phosphatase 49 units/L (35-129) 12/07/16 05:30 Ammonia 42.0 umol/L (25-60) 12/06/16 16:07 Total Creatine Kinase 242 units/L (55-170) H 12/07/16 06:58 CK-MB (CK-2) 2.8 ng/mL (0.0-4.0) 12/07/16 06:58 CK-MB (CK-2) Rel Index 1.1 (0-4) 12/07/16 06:58 Troponin T < 0.010 ng/mL (0.00-0.029) 12/07/16 06:58 C-Reactive Protein 7.70 mg/dL (0.00-1.30) H 12/07/16 16:41 Total Protein 6.7 g/dL (6.3-8.2) 12/07/16 05:30 Albumin 2.6 g/dL (3.9-5) L 12/07/16 05:30 Albumin/Globulin Ratio 0.6 % 12/07/16 05:30 Urine Color Winsome (Yellow) 12/06/16 15:30 Urine Turbidity Clear (Clear) 12/06/16 15:30 Urine pH 6.0 (5.0-7.0) 12/06/16 15:30 Ur Specific [place] 1.017 (1.003-1.030) 12/06/16 15:30 Urine Protein 100 mg/dl mg/dL (Negative) 12/06/16 15:30 Urine Glucose (UA) 50 mg/dL (Negative) 12/06/16 15:30 Urine Ketones Neg mg/dL (Negative) 12/06/16 15:30 Urine Blood Sm (Negative) 12/06/16 15:30 Urine Nitrite Neg (Negative) 12/06/16 15:30 Urine Bilirubin Neg (Negative) 12/06/16 15:30 Urine Urobilinogen 4.0 mg/dL (<2.0) 12/06/16 15:30 Ur Leukocyte Esterase Neg (Negative) 12/06/16 15:30 Urine WBC (Auto) < 1.0 /HPF (0.0-6.0) 12/06/16 15:30 Urine RBC (Auto) 4.0 /HPF (0.0-6.0) 12/06/16 15:30 Urine Mucus Few /HPF 12/06/16 15:30 Salicylates < 0.3 mg/dL (2.8-20.0) L 12/06/16 16:07 Urine Opiates Screen Presumptive negative 12/06/16 15:30 Urine Methadone Screen Presumptive negative 12/06/16 15:30 Acetaminophen < 15.0 ug/mL (10.0-30.0) 12/06/16 16:07 Ur Barbiturates Screen Presumptive negative 12/06/16 15:30 Ur Phencyclidine Scrn Presumptive negative 12/06/16 15:30 Ur Amphetamines Screen Presumptive negative 12/06/16 15:30 U Benzodiazepines Scrn Presumptive negative 12/06/16 15:30 Urine Cocaine Screen Presumptive negative 12/06/16 15:30 U Marijuana (THC) Screen Presumptive negative 12/06/16 15:30 Drugs of Abuse Note Disclamer 12/06/16 15:30 Plasma/Serum Alcohol < 0.01 gm% (0-0.07) 12/06/16 16:07
--- NOTE | 2016-12-08 13:18 | Progress Note ---
Assessment and Plan Assessment and plan: 61-year-old male patient well known to our service with significant past medical history of ischemic cardiomyopathy with ejection fraction of 10-15%, hypertension, dyslipidemia type 2 diabetes mellitus ongoing tobacco use hypertension history of metabolic encephalopathy during last admission was brought to the emergency room with altered level of consciousness and confusion , patient was found at home by his ex- with altered level of consciousness. Patient was unable to protect airway , and patient was promptly intubated and placed on ventilatory support 1. Sepsis with shock continue sepsis protocol, expand antibiotics broad-spectrum antibiotics, continue pressors 2. Pneumonia Currently no growth on sputum cultures all blood cultures., Continue broad- spectrum antibiotics 3. Acute respiratory failure Continue ventilator, we'll attempt to wean when improved 4. CHF Patient was actually hypovolemic, status post IV fluid boluses, watch his fluid status closely 5. Acute toxic encephalopathy Most likely due to sepsis, care as above Critical care time 32 minutes History Interval history: Patient remains intubated, and sedated, still on low dose pressors Hospitalist Physical - Physical exam Narrative exam: General: Intubated, sedated, toxic appearance HEENT: MMM, EOMI cardiac: S1-S2 heard lungs: Ventilated breath sounds, right-sided crackles R sided IJ line abdomen: soft, nontender, nondistended bowel sounds positive extremities: no edema clubbing or cyanosis Skin: no rash or lesion Neuro: Intubated, sedated - Constitutional Vitals: Temp Pulse Resp BP Pulse Ox 100.3 F H 113 H 17 94/60 97 12/08/16 10:00 12/08/16 12:30 12/08/16 11:09 12/08/16 12:30 12/08/16 12:30 General appearance: Present: other (orally intubated.) Results - Labs CBC & Chem 7: 12/07/16 05:30 12/07/16 05:30 Labs: Laboratory Last Values WBC 9.4 K/mm3 (4.5-11.0) 12/07/16 05:30 RBC 4.41 M/mm3 (3.65-5.03) 12/07/16 05:30 Hgb 13.3 gm/dl (11.8-15.2) 12/07/16 05:30 Hct 39.7 % (35.5-45.6) 12/07/16 05:30 MCV 90 fl (84-94) 12/07/16 05:30 MCH 30 pg (28-32) 12/07/16 05:30 MCHC 34 % (32-34) 12/07/16 05:30 RDW 13.0 % (13.2-15.2) L 12/07/16 05:30 Plt Count 93 K/mm3 (140-440) L 12/07/16 05:30 Lymph % (Auto) 17.0 % (13.4-35.0) 12/07/16 05:30 [place] % (Auto) 11.2 % (0.0-7.3) H 12/07/16 05:30 Eos % (Auto) 0.1 % (0.0-4.3) 12/07/16 05:30 Baso % (Auto) 0.4 % (0.0-1.8) 12/07/16 05:30 Lymph # 1.6 K/mm3 (1.2-5.4) 12/07/16 05:30 [place] # 1.1 K/mm3 (0.0-0.8) H 12/07/16 05:30 Eos # 0.0 K/mm3 (0.0-0.4) 12/07/16 05:30 Baso # 0.0 K/mm3 (0.0-0.1) 12/07/16 05:30 Seg Neutrophils % 71.3 % (40.0-70.0) H 12/07/16 05:30 Seg Neutrophils # 6.7 K/mm3 (1.8-7.7) 12/07/16 05:30 PT 14.0 Sec. (12.2-14.9) 12/06/16 16:07 INR 1.09 (0.87-1.13) 12/06/16 16:07 APTT 29.1 Sec. (24.2-36.6) 12/06/16 16:07 POC ABG pH 7.386 (7.35-7.45) 12/08/16 06:12 POC ABG pCO2 42.1 (35-45) 12/08/16 06:12 POC ABG pO2 90 (80-105) 12/08/16 06:12 POC ABG HCO3 25.3 12/08/16 06:12 POC ABG Total CO2 27 12/08/16 06:12 POC ABG O2 Sat 97 12/08/16 06:12 POC ABG Base Excess 0 12/08/16 06:12 FiO2 60 % 12/08/16 06:12 Sodium 137 mmol/L (137-145) 12/07/16 05:30 Potassium 4.0 mmol/L (3.6-5.0) 12/07/16 05:30 Chloride 99.2 mmol/L (98-107) 12/07/16 05:30 Carbon Dioxide 24 mmol/L (22-30) 12/07/16 05:30 Anion Gap 18 mmol/L 12/07/16 05:30 BUN 14 mg/dL (9-20) 12/07/16 05:30 Creatinine 0.6 mg/dL (0.8-1.5) L 12/07/16 05:30 Estimated GFR > 60 ml/min 12/07/16 05:30 BUN/Creatinine Ratio 23.33 % 12/07/16 05:30 Glucose 168 mg/dL (75-100) H 12/07/16 05:30 POC Glucose 175 (70-105) H 12/07/16 18:30 Lactic Acid 1.2 mmol/L (0.7-2.0) 12/08/16 04:35 Calcium 7.8 mg/dL (8.4-10.2) L 12/07/16 05:30 Phosphorus 3.0 mg/dL (2.5-4.5) 12/07/16 05:30 Magnesium 1.9 mg/dL (1.7-2.3) 12/07/16 05:30 Total Bilirubin 1.1 mg/dL (0.1-1.2) 12/07/16 05:30 Direct Bilirubin 0.7 mg/dL (0-0.2) H 12/07/16 05:30 Indirect Bilirubin 0.4 mg/dL 12/07/16 05:30 AST 27 units/L (5-40) 12/07/16 05:30 ALT 14 units/L (7-56) 12/07/16 05:30 Alkaline Phosphatase 49 units/L (35-129) 12/07/16 05:30 Ammonia 42.0 umol/L (25-60) 12/06/16 16:07 Total Creatine Kinase 242 units/L (55-170) H 12/07/16 06:58 CK-MB (CK-2) 2.8 ng/mL (0.0-4.0) 12/07/16 06:58 CK-MB (CK-2) Rel Index 1.1 (0-4) 12/07/16 06:58 Troponin T < 0.010 ng/mL (0.00-0.029) 12/07/16 06:58 C-Reactive Protein 7.70 mg/dL (0.00-1.30) H 12/07/16 16:41 Total Protein 6.7 g/dL (6.3-8.2) 12/07/16 05:30 Albumin 2.6 g/dL (3.9-5) L 12/07/16 05:30 Albumin/Globulin Ratio 0.6 % 12/07/16 05:30 Urine Color Winsome (Yellow) 12/06/16 15:30 Urine Turbidity Clear (Clear) 12/06/16 15:30 Urine pH 6.0 (5.0-7.0) 12/06/16 15:30 Ur Specific [place] 1.017 (1.003-1.030) 12/06/16 15:30 Urine Protein 100 mg/dl mg/dL (Negative) 12/06/16 15:30 Urine Glucose (UA) 50 mg/dL (Negative) 12/06/16 15:30 Urine Ketones Neg mg/dL (Negative) 12/06/16 15:30 Urine Blood Sm (Negative) 12/06/16 15:30 Urine Nitrite Neg (Negative) 12/06/16 15:30 Urine Bilirubin Neg (Negative) 12/06/16 15:30 Urine Urobilinogen 4.0 mg/dL (<2.0) 12/06/16 15:30 Ur Leukocyte Esterase Neg (Negative) 12/06/16 15:30 Urine WBC (Auto) < 1.0 /HPF (0.0-6.0) 12/06/16 15:30 Urine RBC (Auto) 4.0 /HPF (0.0-6.0) 12/06/16 15:30 Urine Mucus Few /HPF 12/06/16 15:30 Salicylates < 0.3 mg/dL (2.8-20.0) L 12/06/16 16:07 Urine Opiates Screen Presumptive negative 12/06/16 15:30 Urine Methadone Screen Presumptive negative 12/06/16 15:30 Acetaminophen < 15.0 ug/mL (10.0-30.0) 12/06/16 16:07 Ur Barbiturates Screen Presumptive negative 12/06/16 15:30 Ur Phencyclidine Scrn Presumptive negative 12/06/16 15:30 Ur Amphetamines Screen Presumptive negative 12/06/16 15:30 U Benzodiazepines Scrn Presumptive negative 12/06/16 15:30 Urine Cocaine Screen Presumptive negative 12/06/16 15:30 U Marijuana (THC) Screen Presumptive negative 12/06/16 15:30 Drugs of Abuse Note Disclamer 12/06/16 15:30 Plasma/Serum Alcohol < 0.01 gm% (0-0.07) 12/06/16 16:07
--- NOTE | 2016-12-08 14:14 | Progress Note ---
Assessment and Plan - Patient Problems (1) Septic shock Current Visit: Yes Status: Acute (2) Respiratory failure Current Visit: Yes Status: Acute Qualifiers: Chronicity: C Respiratory failure complication: R (3) Altered mental status Current Visit: Yes Status: Acute Qualifiers: Altered mental status type: A Coma depth: C Coma timing: C (4) Hypotension Current Visit: No Status: Acute Qualifiers: Hypotension type: H Trimester: T (5) Chronic heart failure Current Visit: No Status: Acute Qualifiers: Heart failure type: H Subjective Date of service: 12/08/16 Principal diagnosis: Acute hypoxemic respiratory failure, shock Interval history: 61-year-old male patient with significant past medical history of ischemic cardiomyopathy with ejection fraction of 10-15%, hypertension, dyslipidemia type 2 diabetes mellitus ongoing tobacco use hypertension history of metabolic encephalopathy during last admission was brought to the emergency room with altered level of consciousness and confusion, patient was found at home by his ex- with altered level of consciousness. Patient was unable to protect airway , and patient was promptly intubated and placed on ventilatory support 1. Sepsis with shock continue sepsis protocol, expand antibiotics broad-spectrum antibiotics, continue vasopressorsupport 2. Pneumonia Currently no growth on sputum cultures all blood cultures., Continue broad- spectrum antibiotics 3. Acute respiratory failure Continue on mechanical ventilatory support Lung protective strategies VAP bundle, Critical bundles Analgesia and sedation Initiate nutritional support with glycemic control SAT/SBT daily VTE/Stress ulcer prophylaxis Ackerman catheter in this critically ill patient. 4. CHF Volume resuscitate while monitoring respiratory status and for pulmonary/ alveolar edema. 5. Acute toxic encephalopathy Most likely due to sepsis, care as above Objective - Exam Narrative Exam: General: Intubated, sedated, toxic appearance HEENT: MMM, EOMI cardiac: S1-S2 heard lungs: Ventilated breath sounds, right-sided crackles abdomen: soft, nontender, nondistended bowel sounds positive extremities: no edema clubbing or cyanosis Skin: no rash or lesion Neuro: Intubated, sedated Vital Signs - 12hr 12/08/16 12/08/16 12/08/16 02:30 03:00 03:30 Temperature Pulse Rate 100 H 98 H 102 H Pulse Rate [ Anterior Bilateral Throughout] Respiratory 18 19 18 Rate Respiratory Rate [Anterior Bilateral Throughout] Blood Pressure 109/49 111/60 120/65 O2 Sat by Pulse 93 96 97 Oximetry 12/08/16 12/08/16 12/08/16 03:45 04:00 04:15 Temperature Pulse Rate 106 H 107 H 100 H Pulse Rate [ Anterior Bilateral Throughout] Respiratory 20 22 23 Rate Respiratory Rate [Anterior Bilateral Throughout] Blood Pressure 132/74 133/40 111/60 O2 Sat by Pulse 95 93 96 Oximetry 12/08/16 12/08/16 12/08/16 04:30 04:45 05:00 Temperature Pulse Rate 99 H 95 H 94 H Pulse Rate [ Anterior Bilateral Throughout] Respiratory 18 18 21 Rate Respiratory Rate [Anterior Bilateral Throughout] Blood Pressure 116/63 116/63 117/64 O2 Sat by Pulse 97 97 Oximetry 12/08/16 12/08/16 12/08/16 05:15 05:30 05:45 Temperature Pulse Rate 96 H 96 H 93 H Pulse Rate [ Anterior Bilateral Throughout] Respiratory 21 20 22 Rate Respiratory Rate [Anterior Bilateral Throughout] Blood Pressure 111/62 108/64 108/64 O2 Sat by Pulse 97 Oximetry 12/08/16 12/08/16 12/08/16 06:00 06:15 06:30 Temperature Pulse Rate 91 H 92 H 93 H Pulse Rate [ Anterior Bilateral Throughout] Respiratory 16 22 20 Rate Respiratory Rate [Anterior Bilateral Throughout] Blood Pressure 116/63 117/63 119/64 O2 Sat by Pulse 97 96 Oximetry 12/08/16 12/08/16 12/08/16 06:45 07:00 07:15 Temperature Pulse Rate 93 H 92 H 92 H Pulse Rate [ Anterior Bilateral Throughout] Respiratory 22 22 20 Rate Respiratory Rate [Anterior Bilateral Throughout] Blood Pressure 118/64 116/63 115/63 O2 Sat by Pulse Oximetry 12/08/16 12/08/16 12/08/16 07:30 07:45 07:58 Temperature Pulse Rate 92 H 91 H 91 H Pulse Rate [ Anterior Bilateral Throughout] Respiratory 19 19 Rate Respiratory Rate [Anterior Bilateral Throughout] Blood Pressure 118/62 115/62 115/62 O2 Sat by Pulse 95 96 Oximetry 12/08/16 12/08/16 12/08/16 08:00 08:15 08:30 Temperature Pulse Rate 90 92 H 90 Pulse Rate [ Anterior Bilateral Throughout] Respiratory 19 21 17 Rate Respiratory Rate [Anterior Bilateral Throughout] Blood Pressure 115/62 119/62 117/59 O2 Sat by Pulse 95 96 96 Oximetry 12/08/16 12/08/16 12/08/16 09:00 10:00 10:26 Temperature 100.3 F H Pulse Rate 93 H Pulse Rate [ 79 Anterior Bilateral Throughout] Respiratory Rate Respiratory 13 Rate [Anterior Bilateral Throughout] Blood Pressure 105/63 O2 Sat by Pulse Oximetry 12/08/16 12/08/16 11:09 12:30 Temperature Pulse Rate 113 H Pulse Rate [ 78 Anterior Bilateral Throughout] Respiratory Rate Respiratory 17 Rate [Anterior Bilateral Throughout] Blood Pressure 94/60 O2 Sat by Pulse 97 Oximetry Constitutional: no acute distress, asleep Eyes: non-icteric ENT: oropharynx moist Neck: supple, no lymphadenopathy, no JVD Effort: normal Ascultation: Bilateral: diminished breath sounds Cardiovascular: regular rate and rhythm Gastrointestinal: normoactive bowel sounds, soft, non-tender, non-distended Integumentary: normal Extremities: no cyanosis Neurologic: non-focal exam, pupils equal and round CBC and BMP: 12/07/16 05:30 12/07/16 05:30 ABG, PT/INR, D-dimer: ABG POC ABG pH 7.386 (7.35-7.45) 12/08/16 06:12 POC ABG pCO2 42.1 (35-45) 12/08/16 06:12 POC ABG pO2 90 (80-105) 12/08/16 06:12 POC ABG HCO3 25.3 12/08/16 06:12 POC ABG Total CO2 27 12/08/16 06:12 POC ABG O2 Sat 97 12/08/16 06:12 PT/INR, D-dimer PT 14.0 Sec. (12.2-14.9) 12/06/16 16:07 INR 1.09 (0.87-1.13) 12/06/16 16:07 Abnormal lab findings: Abnormal Labs 12/07/16 12/07/16 12/07/16 00:35 05:30 05:30 RDW 13.0 L Plt Count 93 L [place] % (Auto) 11.2 H [place] # 1.1 H Seg Neutrophils % 71.3 H Creatinine 0.6 L Glucose 168 H POC Glucose Calcium 7.8 L Direct Bilirubin 0.7 H Total Creatine Kinase 343 H C-Reactive Protein Albumin 2.6 L 12/07/16 12/07/16 12/07/16 06:58 16:41 18:30 RDW Plt Count [place] % (Auto) [place] # Seg Neutrophils % Creatinine Glucose POC Glucose 175 H Calcium Direct Bilirubin Total Creatine Kinase 242 H C-Reactive Protein 7.70 H Albumin Chest x-ray: image reviewed
--- NOTE | 2016-12-08 15:58 | Admit Criteria Form ---
Admission Criteria Documentation: RESPIRATORY FAILURE GRG Clinical Indications for Admission to Inpatient Care (Place 'X' for any and all applicable criteria): Hospital admission is needed for appropriate care of the patient because of acute respiratory failure or insufficiency as indicated by ANY ONE of the following(1)(2)(3)(4)(5)(6)(7)(8): [X ]I. Mechanical ventilation needed (acute invasive or noninvasive) [ ]II. Severe ventilation deficit as indicated by ANY ONE of the following (9) [ ]a) Respiratory acidosis (pH less than 7.32 and partial pressure of carbon dioxide greater than 40 mm Hg (5.3 kPa)) [ ]b) Partial pressure of carbon dioxide greater than 44 mm Hg (5.9 kPa ) (new) [ ]c) Airflow measurements less than 25% of predicted (eg, peak expiratory flow rate less than 100 L/minute) [ ]d) Forced vital capacity less than 15 mL/kg of ideal body weight, or 50% decrease in vital capacity from baseline [ ]III. Noncardiac pulmonary edema not resolving with rapid emergency treatment (8) [ ]IV. Severe respiratory distress as indicated by ANY ONE of the following: [ ]a) Severe tachypnea (respiratory rate greater than 30, greater than 45 for 6-month-old, greater than 60 for ) [ ]b) Severe hypoxemia (partial pressure of oxygen less than 50 mm Hg ( 6.7 kPa) on greater than 50% oxygen or partial pressure of oxygen to FIO2 ratio less than 200) [ ]c) Mental status deterioration from respiratory disease [ ]V. Airway obstruction or inadequate protection [A](10)(11) The original [employer] content created by [employer] has been revised. The portions of the content which have been revised are identified through the use of italic text or in bold, and [email or web address] has neither reviewed nor approved the modified material. All other unmodified content is copyright [employer]. Please see references footnoted in the original [employer] edition 2016 Admission Criteria Met: Yes
[2016-12-08] MEDS: LOVENOX SUB-Q SCH (22:01)
[2016-12-08] MEDS: ZOCOR PO SCH (22:02)
[2016-12-09] MEDS: fentaNYL DRIP Premix 2,000 MCG/100 ML BAG IV SCH ×2 (00:38→17:17)
[2016-12-09] MEDS: VANCOMYCIN VIAL 1,250 MG in NACL 0.9% 250ML 250 ML IV SCH ×3 (00:38→23:59)
[2016-12-09] MEDS: DUONEB 0.5 MG-3 MG/3 ML SOLN IH SCH ×4 (02:30→20:10)
[2016-12-09 06:27] LABS: ISTAT Base Excess -1; ISTAT HCO3 23.7; ISTAT PCO2 37.4 (35-45); ISTAT PH 7.411 (7.35-7.45); ISTAT PO2 87 (80-105); ISTAT SO2 97; ISTAT TCO2 25
--- NOTE | 2016-12-09 10:39 | XRay Report ---
AP CHEST HISTORY: Followup respiratory failure. FINDINGS: Mild cardiomegaly and pulmonary venous congestion appear stable. No large pleural effusion, consolidation or pneumothorax has developed. Lines and support devices remain in good position. IMPRESSION: No significant change.
[2016-12-09] MEDS: LEVAQUIN 500MG/100ML 500 MG/100 ML BAG IV SCH (11:17)
[2016-12-09] MEDS: LASIX IV SCH (11:18)
[2016-12-09] MEDS: PROTONIX IV SCH (11:18)
[2016-12-09] MEDS: BABY ASPIRIN PO SCH (11:18)
[2016-12-09] MEDS: LOPRESSOR PO SCH ×2 (11:19→22:27)
[2016-12-09] MEDS: ZESTRIL PO SCH (11:19)
[2016-12-09] MEDS ORDERED: PNEUMOVAX 23 IM ONE (12:00)
[2016-12-09] MEDS ORDERED: FLUARIX QUAD 2016-2017(36 MOS+) IM ONE (12:00)
--- NOTE | 2016-12-09 12:00 | Progress Note ---
Assessment and Plan Acute respiratory failure intubated on the vent Pneumonia Altered mental status Chronic systolic heart failure Ischemic cardiomyopathy Echo this admission demonstrates left ventricular ejection fraction 35%. Hx of CAD [facility] 2014: patent mid LAD stent, patent diagonal branch stent, patent mid obtuse marginal stent. Nonobstructive disease of the RCA. EF 30-35%. Recommend: Continued medical therapy for this underlying coronary artery disease and cardiomyopathy. Subjective Date of service: 12/09/16 Principal diagnosis: Acute hypoxemic respiratory failure, shock Interval history: Patient remains intubated and sedated on the ventilator. Objective Vital Signs Pulse Pulse Resp Resp BP Pulse Ox 12/09/16 11:19 85 106/64 12/09/16 09:00 87 20 106/68 97 12/09/16 08:49 94 H 110/66 95 12/09/16 08:48 85 20 12/09/16 08:45 84 20 99/62 97 12/09/16 08:30 85 20 104/66 97 12/09/16 08:15 86 20 104/64 97 12/09/16 08:00 88 20 102/64 97 12/09/16 07:45 86 20 105/66 97 12/09/16 07:30 87 20 103/66 97 12/09/16 07:15 89 20 106/64 96 12/09/16 07:00 91 H 20 100/64 96 12/09/16 06:45 89 20 101/62 96 12/09/16 06:30 91 H 19 104/66 96 12/09/16 06:15 94 H 20 103/64 95 12/09/16 06:00 98 H 20 114/70 96 12/09/16 05:45 98 H 20 112/70 96 12/09/16 05:30 97 H 20 110/69 96 12/09/16 05:15 98 H 20 113/67 96 12/09/16 05:00 97 H 20 109/68 96 12/09/16 04:45 97 H 20 109/66 96 12/09/16 04:31 97 H 112/69 97 12/09/16 04:30 99 H 20 103/60 97 12/09/16 04:15 97 H 18 112/69 97 12/09/16 04:00 96 H 20 111/70 96 12/09/16 03:45 97 H 20 109/66 97 12/09/16 03:30 94 H 20 105/65 98 12/09/16 03:15 94 H 20 101/64 97 12/09/16 03:00 92 H 20 101/60 96 12/09/16 02:47 102 H 20 12/09/16 02:45 93 H 20 102/63 97 12/09/16 02:30 100 H 94 H 21 20 110/70 99 12/09/16 02:15 92 H 21 108/66 97 12/09/16 02:00 87 21 98/58 96 12/09/16 01:45 87 21 93/57 96 12/09/16 01:30 87 20 94/59 96 12/09/16 01:15 86 20 97/59 96 12/09/16 01:00 86 20 99/61 97 12/09/16 00:45 85 20 97/58 97 12/09/16 00:30 83 20 96/60 97 12/09/16 00:15 82 20 94/59 97 12/09/16 00:00 83 20 94/58 97 12/08/16 23:45 85 20 91/55 96 12/08/16 23:36 86 94/58 97 12/08/16 23:30 85 20 94/58 96 12/08/16 23:15 86 21 101/62 97 12/08/16 23:06 89 20 96/61 95 12/08/16 23:00 90 19 96/61 96 12/08/16 22:45 94 H 19 103/66 94 12/08/16 22:30 90 20 109/69 96 12/08/16 22:15 93 H 18 117/70 96 12/08/16 22:02 96 H 114/70 12/08/16 22:00 95 H 20 116/74 96 12/08/16 21:45 94 H 21 116/73 97 12/08/16 21:32 91 H 20 12/08/16 21:30 93 H 20 118/72 97 12/08/16 21:16 93 H 20 12/08/16 21:15 92 H 20 118/71 97 12/08/16 21:00 94 H 20 120/73 97 12/08/16 20:45 92 H 20 111/68 97 12/08/16 20:30 92 H 20 117/71 97 12/08/16 20:24 94 H 20 97 12/08/16 20:00 22 96 12/08/16 17:46 98 H 120/72 96 12/08/16 16:00 25 H 97 12/08/16 15:47 91 H 20 12/08/16 15:34 87 22 12/08/16 15:32 86 101/65 95 12/08/16 13:15 23 95 12/08/16 12:30 113 H 94/60 97 - Physical Examination General: Other (intubated on the vent) Cardiac: Positive: Reg Rate and Rhythm
[2016-12-09] MEDS: ISORDIL TITRADOSE PO SCH ×2 (14:16→22:30)
[2016-12-09] MEDS ORDERED: SIMPLE SYRUP FEEDTUBE PRN ×2 (15:06)
[2016-12-09] MEDS ORDERED: SODIUM BICARBONATE FEEDTUBE PRN (15:06)
[2016-12-09] MEDS ORDERED: PANCREAZE DR 10,500 UNIT FEEDTUBE PRN (15:06)
[2016-12-09] MEDS: VERSED/NS 100MG/100ML 100 MG/100 ML BAG IV SCH (17:18)
--- NOTE | 2016-12-09 19:01 | Progress Note ---
Assessment and Plan Start PSV trials in the morning. - Patient Problems (1) Septic shock Current Visit: Yes Status: Acute (2) Respiratory failure Current Visit: Yes Status: Acute Qualifiers: Chronicity: C Respiratory failure complication: R (3) Altered mental status Current Visit: Yes Status: Acute Qualifiers: Altered mental status type: A Coma depth: C Coma timing: C (4) Hypotension Current Visit: No Status: Acute Qualifiers: Hypotension type: H Trimester: T (5) Chronic heart failure Current Visit: No Status: Acute Qualifiers: Heart failure type: H Subjective Date of service: 12/09/16 Principal diagnosis: Acute hypoxemic respiratory failure, shock Interval history: 61-year-old male patient with significant past medical history of ischemic cardiomyopathy with ejection fraction of 10-15%, hypertension, dyslipidemia type 2 diabetes mellitus ongoing tobacco use hypertension history of metabolic encephalopathy during last admission was brought to the emergency room with altered level of consciousness and confusion, patient was found at home by his ex- with altered level of consciousness. Patient was unable to protect airway , and patient was promptly intubated and placed on ventilatory support. Remains critically ill on mechanical ventilatory support. Weaned off vasopressor support. 1. Sepsis with shock continue sepsis protocol, expand antibiotics broad-spectrum antibiotics, continue vasopressorsupport 2. Pneumonia Currently no growth on sputum cultures all blood cultures., Continue broad- spectrum antibiotics 3. Acute respiratory failure Continue on mechanical ventilatory support Lung protective strategies VAP bundle, Critical bundles Analgesia and sedation Initiate nutritional support with glycemic control SAT/SBT daily VTE/Stress ulcer prophylaxis Ackerman catheter in this critically ill patient. 4. CHF Volume resuscitate while monitoring respiratory status and for pulmonary/ alveolar edema. 5. Acute toxic encephalopathy Most likely due to sepsis, care as above Objective - Exam Narrative Exam: General: Intubated, sedated, non-toxic appearance HEENT: MMM, EOMI cardiac: S1-S2 heard lungs: Ventilated breath sounds, right-sided crackles abdomen: soft, nontender, nondistended bowel sounds positive extremities: no edema clubbing or cyanosis Skin: no rash or lesion Neuro: Intubated, sedated Vital Signs - 12hr 12/09/16 12/09/16 12/09/16 07:00 07:15 07:30 Pulse Rate 91 H 89 87 Pulse Rate [ Anterior Bilateral Throughout] Respiratory 20 20 20 Rate Respiratory Rate [Anterior Bilateral Throughout] Blood Pressure 100/64 106/64 103/66 O2 Sat by Pulse 96 96 97 Oximetry 12/09/16 12/09/16 12/09/16 07:45 08:00 08:15 Pulse Rate 86 88 86 Pulse Rate [ Anterior Bilateral Throughout] Respiratory 20 20 20 Rate Respiratory Rate [Anterior Bilateral Throughout] Blood Pressure 105/66 102/64 104/64 O2 Sat by Pulse 97 97 97 Oximetry 12/09/16 12/09/16 12/09/16 08:30 08:45 08:48 Pulse Rate 85 84 Pulse Rate [ 85 Anterior Bilateral Throughout] Respiratory 20 20 Rate Respiratory 20 Rate [Anterior Bilateral Throughout] Blood Pressure 104/66 99/62 O2 Sat by Pulse 97 97 Oximetry 12/09/16 12/09/16 12/09/16 08:49 09:00 09:15 Pulse Rate 94 H 87 93 H Pulse Rate [ Anterior Bilateral Throughout] Respiratory 20 21 Rate Respiratory Rate [Anterior Bilateral Throughout] Blood Pressure 110/66 106/68 110/66 O2 Sat by Pulse 95 97 97 Oximetry 12/09/16 12/09/16 12/09/16 09:20 09:30 09:45 Pulse Rate 92 H 90 Pulse Rate [ 80 Anterior Bilateral Throughout] Respiratory 20 20 Rate Respiratory 20 Rate [Anterior Bilateral Throughout] Blood Pressure 109/62 109/64 O2 Sat by Pulse 92 94 Oximetry 12/09/16 12/09/16 12/09/16 10:00 10:15 10:30 Pulse Rate 87 87 85 Pulse Rate [ Anterior Bilateral Throughout] Respiratory 20 20 20 Rate Respiratory Rate [Anterior Bilateral Throughout] Blood Pressure 107/63 101/63 107/64 O2 Sat by Pulse 94 94 94 Oximetry 12/09/16 12/09/16 12/09/16 10:45 11:00 11:15 Pulse Rate 85 85 84 Pulse Rate [ Anterior Bilateral Throughout] Respiratory 20 20 20 Rate Respiratory Rate [Anterior Bilateral Throughout] Blood Pressure 104/63 106/64 110/64 O2 Sat by Pulse 94 94 95 Oximetry 12/09/16 12/09/16 12/09/16 11:19 11:30 11:45 Pulse Rate 85 85 91 H Pulse Rate [ Anterior Bilateral Throughout] Respiratory 20 20 Rate Respiratory Rate [Anterior Bilateral Throughout] Blood Pressure 106/64 118/71 121/73 O2 Sat by Pulse 95 96 Oximetry 12/09/16 12/09/16 12/09/16 12:00 12:15 12:16 Pulse Rate 92 H 90 91 H Pulse Rate [ Anterior Bilateral Throughout] Respiratory 20 20 Rate Respiratory Rate [Anterior Bilateral Throughout] Blood Pressure 114/72 109/66 114/72 O2 Sat by Pulse 95 95 95 Oximetry 12/09/16 12/09/16 12/09/16 12:30 12:45 13:00 Pulse Rate 88 87 90 Pulse Rate [ Anterior Bilateral Throughout] Respiratory 20 20 20 Rate Respiratory Rate [Anterior Bilateral Throughout] Blood Pressure 107/68 105/67 108/64 O2 Sat by Pulse 95 95 95 Oximetry 12/09/16 12/09/16 12/09/16 13:15 13:30 13:45 Pulse Rate 89 91 H 91 H Pulse Rate [ Anterior Bilateral Throughout] Respiratory 20 20 20 Rate Respiratory Rate [Anterior Bilateral Throughout] Blood Pressure 103/65 102/65 109/68 O2 Sat by Pulse 95 95 95 Oximetry 12/09/16 12/09/16 12/09/16 14:00 14:15 14:16 Pulse Rate 92 H 106 H 103 H Pulse Rate [ Anterior Bilateral Throughout] Respiratory 20 23 Rate Respiratory Rate [Anterior Bilateral Throughout] Blood Pressure 109/68 118/73 115/68 O2 Sat by Pulse 95 96 Oximetry 12/09/16 12/09/16 12/09/16 14:30 14:45 15:00 Pulse Rate 111 H 114 H 106 H Pulse Rate [ Anterior Bilateral Throughout] Respiratory 19 19 18 Rate Respiratory Rate [Anterior Bilateral Throughout] Blood Pressure 121/67 111/60 98/66 O2 Sat by Pulse 94 94 93 Oximetry 12/09/16 12/09/16 12/09/16 15:15 15:30 15:31 Pulse Rate 104 H 103 H 102 H Pulse Rate [ Anterior Bilateral Throughout] Respiratory 20 20 Rate Respiratory Rate [Anterior Bilateral Throughout] Blood Pressure 105/64 104/62 104/62 O2 Sat by Pulse 93 94 94 Oximetry 12/09/16 12/09/16 12/09/16 15:45 16:00 16:15 Pulse Rate 102 H 99 H 98 H Pulse Rate [ Anterior Bilateral Throughout] Respiratory 20 20 20 Rate Respiratory Rate [Anterior Bilateral Throughout] Blood Pressure 109/65 108/64 106/64 O2 Sat by Pulse 94 94 94 Oximetry 12/09/16 12/09/16 12/09/16 16:30 16:45 17:00 Pulse Rate 93 H 94 H 93 H Pulse Rate [ Anterior Bilateral Throughout] Respiratory 20 20 20 Rate Respiratory Rate [Anterior Bilateral Throughout] Blood Pressure 110/64 103/62 102/61 O2 Sat by Pulse 95 95 95 Oximetry 12/09/16 12/09/16 12/09/16 17:15 17:23 17:30 Pulse Rate 92 H 93 H 91 H Pulse Rate [ Anterior Bilateral Throughout] Respiratory 20 20 Rate Respiratory Rate [Anterior Bilateral Throughout] Blood Pressure 108/64 108/64 107/64 O2 Sat by Pulse 95 95 95 Oximetry Constitutional: no acute distress, asleep Eyes: non-icteric ENT: oropharynx moist Neck: supple, no lymphadenopathy, no JVD Effort: normal Ascultation: Bilateral: diminished breath sounds Cardiovascular: regular rate and rhythm Gastrointestinal: normoactive bowel sounds, soft, non-tender, non-distended Integumentary: normal Extremities: no cyanosis, no edema Neurologic: non-focal exam, pupils equal and round CBC and BMP: 12/07/16 05:30 12/07/16 05:30 ABG, PT/INR, D-dimer: ABG POC ABG pH 7.411 (7.35-7.45) 12/09/16 06:23 POC ABG pCO2 37.4 (35-45) 12/09/16 06:23 POC ABG pO2 87 (80-105) 12/09/16 06:23 POC ABG HCO3 23.7 12/09/16 06:23 POC ABG Total CO2 25 12/09/16 06:23 POC ABG O2 Sat 97 12/09/16 06:23 PT/INR, D-dimer PT 14.0 Sec. (12.2-14.9) 12/06/16 16:07 INR 1.09 (0.87-1.13) 12/06/16 16:07 Abnormal lab findings: Abnormal Labs 12/07/16 12/07/16 12/07/16 00:35 05:30 05:30 RDW 13.0 L Plt Count 93 L Graham % (Auto) 11.2 H Graham # 1.1 H Seg Neutrophils % 71.3 H Creatinine 0.6 L Glucose 168 H POC Glucose Calcium 7.8 L Direct Bilirubin 0.7 H Total Creatine Kinase 343 H C-Reactive Protein Albumin 2.6 L 02/12/07/16 12/07/16 06:58 16:41 18:30 RDW Plt Count Graham % (Auto) Graham # Seg Neutrophils % Creatinine Glucose POC Glucose 175 H Calcium Direct Bilirubin Total Creatine Kinase 242 H C-Reactive Protein 7.70 H Albumin 12/09/16 11:58 RDW Plt Count Graham % (Auto) Graham # Seg Neutrophils % Creatinine Glucose POC Glucose 141 H Calcium Direct Bilirubin Total Creatine Kinase C-Reactive Protein Albumin Allied health notes reviewed: RT
--- NOTE | 2016-12-09 20:14 | XRay Report ---
FINAL REPORT EXAM: XR ABDOMEN 1V AP HISTORY: feeding tube placement TECHNIQUE: Supine portable view of the abdomen PRIORS: None. FINDINGS: Feeding tube tip terminates in the region of the stomach. The side port terminates in the distal esophagus near the GE junction. The bowel gas pattern is nonspecific. No free air is identified. Soft tissues have no evidence for mass shadows or calcifications. The bony structures are intact. IMPRESSION: Nasogastric tube placement with the tip in the stomach. Nonspecific, nonobstructive bowel gas pattern with no acute process noted.
[2016-12-09] MEDS: LOVENOX SUB-Q SCH (22:25)
[2016-12-09] MEDS: ZOCOR PO SCH (22:26)
[2016-12-10] MEDS: DUONEB 0.5 MG-3 MG/3 ML SOLN IH SCH ×4 (01:15→19:47)
[2016-12-10] MEDS: ISORDIL TITRADOSE PO SCH (06:31)
[2016-12-10 06:39] LABS: ISTAT Base Excess 4; ISTAT HCO3 27.5; ISTAT PCO2 36.5 (35-45); ISTAT PH 7.485 (7.35-7.45); ISTAT PO2 87 (80-105); ISTAT SO2 97; ISTAT TCO2 29
--- NOTE | 2016-12-10 08:38 | Progress Note ---
Assessment and Plan - Patient Problems (1) Septic shock Current Visit: Yes Status: Acute Plan to address problem: Sepsis protocol: Pressor support, ivf, abx, supportive care, monitor uop q shift (2) Respiratory failure Current Visit: Yes Status: Acute Qualifiers: Chronicity: C Respiratory failure complication: R Plan to address problem: Wean vent as tolerated, Daily SBP, Pulmonary consulted, (3) Non-compliance Current Visit: No Status: Chronic Plan to address problem: continue current care. (4) Systolic CHF, acute on chronic Current Visit: No Status: Acute Plan to address problem: Cardiology consulted, continue telemetry, continue current medication therapy, supportive care. (5) Diabetes Current Visit: No Status: Chronic Qualifiers: Diabetes mellitus type: D Diabetes mellitus complication status: D Diabetes mellitus complication detail: D Diabetic retinopathy severity: D Proliferative retinopathy type: P Diabetes mellitus macular edema: D Diabetes mellitus retirement insulin use: D Laterality: L Chronic kidney disease stage: C Plan to address problem: ADA diet, insulin, accu check (6) DVT prophylaxis Current Visit: Yes Status: Acute History Interval history: Pt intubated, sedated, on vent suppport, on pressor support. No reported nursing events. Pt stable overnight. Hospitalist Physical - Constitutional Vitals: Temp Pulse Resp BP Pulse Ox 101.3 F H 92 H 20 99/58 97 12/10/16 08:00 12/10/16 07:43 12/10/16 07:43 12/10/16 07:36 12/10/16 07:36 General appearance: Present: no acute distress, other (orally intubated.) - Neck Neck: Present: supple - Respiratory Respiratory: bilateral: diminished - Cardiovascular Rhythm: regular Heart Sounds: Present: S1 & S2 - Extremities Extremities: no ischemia Extremity abnormal: edema Peripheral Pulses: within normal limits - Abdominal General gastrointestinal: soft, non-tender, non-distended - Integumentary Integumentary: Present: clear, dry, decreased turgor - Psychiatric Psychiatric: other - Neurologic Neurologic: moves all extremities Results - Labs CBC & Chem 7: 12/07/16 05:30 12/07/16 05:30 Labs: Laboratory Last Values WBC 9.4 K/mm3 (4.5-11.0) 12/07/16 05:30 RBC 4.41 M/mm3 (3.65-5.03) 12/07/16 05:30 Hgb 13.3 gm/dl (11.8-15.2) 12/07/16 05:30 Hct 39.7 % (35.5-45.6) 12/07/16 05:30 MCV 90 fl (84-94) 12/07/16 05:30 MCH 30 pg (28-32) 12/07/16 05:30 MCHC 34 % (32-34) 12/07/16 05:30 RDW 13.0 % (13.2-15.2) L 12/07/16 05:30 Plt Count 93 K/mm3 (140-440) L 12/07/16 05:30 Lymph % (Auto) 17.0 % (13.4-35.0) 12/07/16 05:30 [place] % (Auto) 11.2 % (0.0-7.3) H 12/07/16 05:30 Eos % (Auto) 0.1 % (0.0-4.3) 12/07/16 05:30 Baso % (Auto) 0.4 % (0.0-1.8) 12/07/16 05:30 Lymph # 1.6 K/mm3 (1.2-5.4) 12/07/16 05:30 [place] # 1.1 K/mm3 (0.0-0.8) H 12/07/16 05:30 Eos # 0.0 K/mm3 (0.0-0.4) 12/07/16 05:30 Baso # 0.0 K/mm3 (0.0-0.1) 12/07/16 05:30 Seg Neutrophils % 71.3 % (40.0-70.0) H 12/07/16 05:30 Seg Neutrophils # 6.7 K/mm3 (1.8-7.7) 12/07/16 05:30 PT 14.0 Sec. (12.2-14.9) 12/06/16 16:07 INR 1.09 (0.87-1.13) 12/06/16 16:07 APTT 29.1 Sec. (24.2-36.6) 12/06/16 16:07 POC ABG pH 7.485 (7.35-7.45) H 12/10/16 06:05 POC ABG pCO2 36.5 (35-45) 12/10/16 06:05 POC ABG pO2 87 (80-105) 12/10/16 06:05 POC ABG HCO3 27.5 12/10/16 06:05 POC ABG Total CO2 29 12/10/16 06:05 POC ABG O2 Sat 97 12/10/16 06:05 POC ABG Base Excess 4 12/10/16 06:05 FiO2 50 % 12/10/16 06:05 Sodium 137 mmol/L (137-145) 12/07/16 05:30 Potassium 4.0 mmol/L (3.6-5.0) 12/07/16 05:30 Chloride 99.2 mmol/L (98-107) 12/07/16 05:30 Carbon Dioxide 24 mmol/L (22-30) 12/07/16 05:30 Anion Gap 18 mmol/L 12/07/16 05:30 BUN 14 mg/dL (9-20) 12/07/16 05:30 Creatinine 0.6 mg/dL (0.8-1.5) L 12/07/16 05:30 Estimated GFR > 60 ml/min 12/07/16 05:30 BUN/Creatinine Ratio 23.33 % 12/07/16 05:30 Glucose 168 mg/dL (75-100) H 12/07/16 05:30 POC Glucose 141 (70-105) H 12/09/16 11:58 Lactic Acid 1.2 mmol/L (0.7-2.0) 12/08/16 04:35 Calcium 7.8 mg/dL (8.4-10.2) L 12/07/16 05:30 Phosphorus 3.0 mg/dL (2.5-4.5) 12/07/16 05:30 Magnesium 1.9 mg/dL (1.7-2.3) 12/07/16 05:30 Total Bilirubin 1.1 mg/dL (0.1-1.2) 12/07/16 05:30 Direct Bilirubin 0.7 mg/dL (0-0.2) H 12/07/16 05:30 Indirect Bilirubin 0.4 mg/dL 12/07/16 05:30 AST 27 units/L (5-40) 12/07/16 05:30 ALT 14 units/L (7-56) 12/07/16 05:30 Alkaline Phosphatase 49 units/L (35-129) 12/07/16 05:30 Ammonia 42.0 umol/L (25-60) 12/06/16 16:07 Total Creatine Kinase 242 units/L (55-170) H 12/07/16 06:58 CK-MB (CK-2) 2.8 ng/mL (0.0-4.0) 12/07/16 06:58 CK-MB (CK-2) Rel Index 1.1 (0-4) 12/07/16 06:58 Troponin T < 0.010 ng/mL (0.00-0.029) 12/07/16 06:58 C-Reactive Protein 7.70 mg/dL (0.00-1.30) H 12/07/16 16:41 Total Protein 6.7 g/dL (6.3-8.2) 12/07/16 05:30 Albumin 2.6 g/dL (3.9-5) L 12/07/16 05:30 Albumin/Globulin Ratio 0.6 % 12/07/16 05:30 Urine Color Winsome (Yellow) 12/06/16 15:30 Urine Turbidity Clear (Clear) 12/06/16 15:30 Urine pH 6.0 (5.0-7.0) 12/06/16 15:30 Ur Specific [place] 1.017 (1.003-1.030) 12/06/16 15:30 Urine Protein 100 mg/dl mg/dL (Negative) 12/06/16 15:30 Urine Glucose (UA) 50 mg/dL (Negative) 12/06/16 15:30 Urine Ketones Neg mg/dL (Negative) 12/06/16 15:30 Urine Blood Sm (Negative) 12/06/16 15:30 Urine Nitrite Neg (Negative) 12/06/16 15:30 Urine Bilirubin Neg (Negative) 12/06/16 15:30 Urine Urobilinogen 4.0 mg/dL (<2.0) 12/06/16 15:30 Ur Leukocyte Esterase Neg (Negative) 12/06/16 15:30 Urine WBC (Auto) < 1.0 /HPF (0.0-6.0) 12/06/16 15:30 Urine RBC (Auto) 4.0 /HPF (0.0-6.0) 12/06/16 15:30 Urine Mucus Few /HPF 12/06/16 15:30 Salicylates < 0.3 mg/dL (2.8-20.0) L 12/06/16 16:07 Urine Opiates Screen Presumptive negative 12/06/16 15:30 Urine Methadone Screen Presumptive negative 12/06/16 15:30 Acetaminophen < 15.0 ug/mL (10.0-30.0) 12/06/16 16:07 Ur Barbiturates Screen Presumptive negative 12/06/16 15:30 Ur Phencyclidine Scrn Presumptive negative 12/06/16 15:30 Ur Amphetamines Screen Presumptive negative 12/06/16 15:30 U Benzodiazepines Scrn Presumptive negative 12/06/16 15:30 Urine Cocaine Screen Presumptive negative 12/06/16 15:30 U Marijuana (THC) Screen Presumptive negative 12/06/16 15:30 Drugs of Abuse Note Disclamer 12/06/16 15:30 Plasma/Serum Alcohol < 0.01 gm% (0-0.07) 12/06/16 16:07
--- NOTE | 2016-12-10 08:44 | XRay Report ---
AP CHEST: HISTORY: Follow-up respiratory failure. FINDINGS: The endotracheal tube, nasogastric tube and right venous catheter are unchanged. Stable pulmonary venous congestion and mild cardiomegaly. The lungs are generally clear, otherwise. No evidence for pneumonia, CHF or pneumothorax. IMPRESSION: No change.
[2016-12-10] MEDS: LEVAQUIN 500MG/100ML 500 MG/100 ML BAG IV SCH (09:02)
[2016-12-10] MEDS: ZESTRIL PO SCH (09:03)
[2016-12-10] MEDS: LOPRESSOR PO SCH ×2 (09:03→22:28)
[2016-12-10] MEDS: BABY ASPIRIN PO SCH (09:03)
[2016-12-10] MEDS: PROTONIX IV SCH (09:04)
[2016-12-10] MEDS: LASIX IV SCH (09:04)
--- NOTE | 2016-12-10 11:42 | Progress Note ---
Assessment and Plan Acute respiratory failure intubated on the vent Pneumonia Altered mental status Chronic systolic heart failure Ischemic cardiomyopathy Echo this admission demonstrates left ventricular ejection fraction 35%. Hx of CAD [facility] 2014: patent mid LAD stent, patent diagonal branch stent, patent mid obtuse marginal stent. Nonobstructive disease of the RCA. EF 30-35%. Recommend: Continue medical therapy for this underlying coronary artery disease and cardiomyopathy. Subjective Date of service: 12/10/16 Principal diagnosis: Acute hypoxemic respiratory failure, shock Interval history: Patient remains intubated and sedated on the ventilator. Objective Vital Signs Temp Pulse Pulse Resp Resp BP Pulse Ox 12/10/16 09:03 91 H 105/60 12/10/16 08:00 101.3 F H 12/10/16 07:43 92 H 20 12/10/16 07:36 90 99/58 97 12/10/16 06:31 88 111/64 12/10/16 06:30 96 H 20 95/57 95 12/10/16 06:15 99 H 20 97/58 95 12/10/16 06:00 100 H 20 89/60 94 12/10/16 05:45 89 20 109/64 97 12/10/16 05:30 89 20 103/60 97 12/10/16 05:15 88 20 106/63 97 12/10/16 05:00 89 21 109/62 97 12/10/16 04:45 89 20 105/63 97 12/10/16 04:30 88 20 106/64 97 12/10/16 04:15 89 20 106/60 96 12/10/16 04:00 88 20 108/62 97 12/10/16 03:45 89 20 109/62 97 12/10/16 03:30 90 20 106/62 96 12/10/16 03:15 92 H 20 104/61 96 12/10/16 03:08 92 H 101/59 96 12/10/16 03:00 93 H 20 101/59 96 12/10/16 02:45 94 H 20 108/62 97 12/10/16 02:30 97 H 20 106/61 96 12/10/16 02:15 99 H 20 124/70 99 12/10/16 02:00 92 H 20 103/57 96 12/10/16 01:45 91 H 20 105/57 96 12/10/16 01:36 88 20 03/01/17 01:30 89 20 108/59 96 12/10/16 01:16 89 20 12/10/16 01:15 90 20 102/59 97 12/10/16 01:00 90 21 104/56 97 12/10/16 00:45 90 19 108/61 97 12/10/16 00:30 92 H 19 105/58 97 12/10/16 00:15 93 H 18 108/61 97 12/10/16 00:00 93 H 18 109/59 98 12/09/16 23:54 91 H 109/61 97 12/09/16 23:45 91 H 21 109/61 96 12/09/16 23:30 92 H 20 106/61 96 12/09/16 23:15 92 H 20 101/58 96 12/09/16 23:00 95 H 21 102/56 96 12/09/16 22:45 96 H 20 99/58 95 12/09/16 22:30 90 20 104/61 96 12/09/16 22:27 91 H 104/61 12/09/16 22:15 91 H 21 106/61 96 12/09/16 22:00 92 H 20 105/62 96 12/09/16 21:45 93 H 20 105/63 96 12/09/16 21:30 97 H 20 106/60 96 12/09/16 21:15 96 H 20 102/61 95 12/09/16 21:00 95 H 20 100/59 94 12/09/16 20:59 94 H 20 12/09/16 20:46 95 H 20 101/62 96 12/09/16 20:45 95 H 20 101/62 96 12/09/16 20:30 98 H 20 106/63 97 12/09/16 20:21 107 H 20 12/09/16 20:15 106 H 17 128/69 100 12/09/16 20:10 100 H 109/61 97 12/09/16 20:00 103 H 21 109/61 97 12/09/16 19:46 125/63 98 12/09/16 19:30 86 20 112/68 95 12/09/16 19:15 86 20 116/67 94 12/09/16 19:00 85 20 110/68 96 12/09/16 18:45 86 20 108/66 96 12/09/16 18:30 87 20 110/65 96 12/09/16 18:15 88 20 108/65 95 12/09/16 18:00 89 20 108/65 95 12/09/16 17:45 91 H 20 116/68 97 12/09/16 17:30 91 H 20 107/64 95 12/09/16 17:23 93 H 108/64 95 12/09/16 17:15 92 H 20 108/64 95 12/09/16 17:00 93 H 20 102/61 95 12/09/16 16:45 94 H 20 103/62 95 12/09/16 16:30 93 H 20 110/64 95 12/09/16 16:15 98 H 20 106/64 94 12/09/16 16:00 99 H 20 108/64 94 12/09/16 15:45 102 H 20 109/65 94 12/09/16 15:31 102 H 104/62 94 12/09/16 15:30 103 H 20 104/62 94 12/09/16 15:15 104 H 20 105/64 93 12/09/16 15:00 106 H 18 98/66 93 12/09/16 14:45 114 H 19 111/60 94 12/09/16 14:30 111 H 19 121/67 94 12/09/16 14:16 103 H 115/68 12/09/16 14:15 106 H 23 118/73 96 12/09/16 14:00 92 H 20 109/68 95 12/09/16 13:45 91 H 20 109/68 95 12/09/16 13:30 91 H 20 102/65 95 12/09/16 13:15 89 20 103/65 95 12/09/16 13:00 90 20 108/64 95 12/09/16 12:45 87 20 105/67 95 12/09/16 12:30 88 20 107/68 95 12/09/16 12:16 91 H 114/72 95 12/09/16 12:15 90 20 109/66 95 12/09/16 12:00 92 H 20 114/72 95 12/09/16 11:45 91 H 20 121/73 96 - Physical Examination General: Other (intubated on the vent) Cardiac: Positive: Reg Rate and Rhythm - Allied health notes Allied health notes reviewed: RT
[2016-12-10] MEDS: VANCOMYCIN VIAL 1,250 MG in NACL 0.9% 250ML 250 ML IV SCH (12:07)
[2016-12-10] MEDS: LASIX 100 MG in NACL 0.9% 90 ML IV SCH (16:20)
[2016-12-10] MEDS: fentaNYL DRIP Premix 2,000 MCG/100 ML BAG IV SCH (20:30)
[2016-12-10] MEDS: TYLENOL FEEDTUBE PRN (20:31)
--- NOTE | 2016-12-10 21:29 | Progress Note ---
Assessment and Plan Daily PSV trials. - Patient Problems (1) Septic shock Current Visit: Yes Status: Acute (2) Respiratory failure Current Visit: Yes Status: Acute Qualifiers: Chronicity: C Respiratory failure complication: R (3) Altered mental status Current Visit: Yes Status: Acute Qualifiers: Altered mental status type: A Coma depth: C Coma timing: C (4) Hypotension Current Visit: No Status: Acute Qualifiers: Hypotension type: H Trimester: T (5) Chronic heart failure Current Visit: No Status: Acute Qualifiers: Heart failure type: H Subjective Date of service: 12/10/16 Principal diagnosis: Acute hypoxemic respiratory failure, shock Interval history: 61-year-old male patient with significant past medical history of ischemic cardiomyopathy with ejection fraction of 10-15%, hypertension, dyslipidemia type 2 diabetes mellitus ongoing tobacco use hypertension history of metabolic encephalopathy during last admission was brought to the emergency room with altered level of consciousness and confusion, patient was found at home by his ex- with altered level of consciousness. Patient was unable to protect airway , and patient was promptly intubated and placed on ventilatory support. Remains critically ill on mechanical ventilatory support. Weaned off vasopressor support. 1. Sepsis with shock continue sepsis protocol, continue with antibiotics, continue vasopressor support 2. Pneumonia sputum cultures positive for strep pneumoniae, all blood cultures- NGTD. If blood cultures remain negative, plan to de-escalate antibiotic therapy 3. Acute respiratory failure Continue on mechanical ventilatory support Lung protective strategies VAP bundle, Critical bundles Analgesia and sedation Initiate nutritional support with glycemic control SAT/SBT daily VTE/Stress ulcer prophylaxis Ackerman catheter in this critically ill patient. 4. CHF- HFrEF Per Cardiology 5. Acute toxic encephalopathy Most likely due to sepsis, care as above Objective - Exam Narrative Exam: General: Intubated, sedated, non-toxic appearance HEENT: MMM, EOMI cardiac: S1-S2 heard lungs: Ventilated breath sounds, right-sided crackles abdomen: soft, nontender, nondistended bowel sounds positive extremities: no edema clubbing or cyanosis Skin: no rash or lesion Neuro: Intubated, sedated Vital Signs - 12hr 12/10/16 12/10/16 12/10/16 09:30 09:45 10:00 Temperature Pulse Rate 90 88 88 Pulse Rate [ Anterior Bilateral Throughout] Respiratory 20 20 20 Rate Respiratory Rate [Anterior Bilateral Throughout] Blood Pressure 110/67 106/64 102/62 O2 Sat by Pulse 97 97 97 Oximetry 12/10/16 12/10/16 12/10/16 10:15 10:30 10:45 Temperature Pulse Rate 87 87 88 Pulse Rate [ Anterior Bilateral Throughout] Respiratory 20 20 20 Rate Respiratory Rate [Anterior Bilateral Throughout] Blood Pressure 94/61 89/57 91/54 O2 Sat by Pulse 97 97 96 Oximetry 12/10/16 12/10/16 12/10/16 11:00 11:15 11:30 Temperature Pulse Rate 89 91 H 89 Pulse Rate [ Anterior Bilateral Throughout] Respiratory 20 20 20 Rate Respiratory Rate [Anterior Bilateral Throughout] Blood Pressure 91/53 89/53 89/53 O2 Sat by Pulse 96 96 96 Oximetry 12/10/16 12/10/16 12/10/16 11:45 12:00 12:15 Temperature 101.4 F H Pulse Rate 89 89 88 Pulse Rate [ Anterior Bilateral Throughout] Respiratory 20 20 20 Rate Respiratory Rate [Anterior Bilateral Throughout] Blood Pressure 90/54 86/52 92/52 O2 Sat by Pulse 96 96 96 Oximetry 12/10/16 12/10/16 12/10/16 12:30 12:45 13:00 Temperature Pulse Rate 89 87 88 Pulse Rate [ Anterior Bilateral Throughout] Respiratory 20 20 20 Rate Respiratory Rate [Anterior Bilateral Throughout] Blood Pressure 89/53 96/54 93/54 O2 Sat by Pulse 95 95 95 Oximetry 12/10/16 12/10/16 12/10/16 13:15 13:30 13:45 Temperature Pulse Rate 87 88 88 Pulse Rate [ Anterior Bilateral Throughout] Respiratory 20 20 20 Rate Respiratory Rate [Anterior Bilateral Throughout] Blood Pressure 90/55 96/55 93/54 O2 Sat by Pulse 95 95 95 Oximetry 12/10/16 12/10/16 12/10/16 13:59 14:00 14:03 Temperature Pulse Rate 90 91 H Pulse Rate [ 92 H Anterior Bilateral Throughout] Respiratory 20 Rate Respiratory 20 Rate [Anterior Bilateral Throughout] Blood Pressure 93/54 96/58 O2 Sat by Pulse 95 95 Oximetry 12/10/16 12/10/16 12/10/16 14:05 14:15 14:30 Temperature Pulse Rate 95 H 90 89 Pulse Rate [ Anterior Bilateral Throughout] Respiratory 20 20 Rate Respiratory Rate [Anterior Bilateral Throughout] Blood Pressure 96/58 95/54 93/54 O2 Sat by Pulse 95 95 95 Oximetry 12/10/16 12/10/16 12/10/16 14:45 15:00 15:15 Temperature Pulse Rate 89 100 H 108 H Pulse Rate [ Anterior Bilateral Throughout] Respiratory 20 12 19 Rate Respiratory Rate [Anterior Bilateral Throughout] Blood Pressure 92/55 102/65 106/57 O2 Sat by Pulse 95 97 97 Oximetry 12/10/16 12/10/16 12/10/16 15:30 15:45 16:00 Temperature 101.3 F H Pulse Rate 103 H 99 H 95 H Pulse Rate [ Anterior Bilateral Throughout] Respiratory 20 20 20 Rate Respiratory Rate [Anterior Bilateral Throughout] Blood Pressure 99/56 100/58 98/59 O2 Sat by Pulse 96 96 96 Oximetry 12/10/16 12/10/16 12/10/16 16:15 16:30 16:45 Temperature Pulse Rate 92 H 89 88 Pulse Rate [ Anterior Bilateral Throughout] Respiratory 20 20 20 Rate Respiratory Rate [Anterior Bilateral Throughout] Blood Pressure 97/56 95/54 98/56 O2 Sat by Pulse 96 96 96 Oximetry 12/10/16 12/10/16 12/10/16 16:58 17:00 17:15 Temperature Pulse Rate 96 H 86 85 Pulse Rate [ Anterior Bilateral Throughout] Respiratory 20 20 Rate Respiratory Rate [Anterior Bilateral Throughout] Blood Pressure 96/56 99/57 102/59 O2 Sat by Pulse 96 96 96 Oximetry 12/10/16 12/10/16 12/10/16 17:30 17:45 18:00 Temperature Pulse Rate 86 85 84 Pulse Rate [ Anterior Bilateral Throughout] Respiratory 20 20 20 Rate Respiratory Rate [Anterior Bilateral Throughout] Blood Pressure 103/60 100/58 101/60 O2 Sat by Pulse 97 97 97 Oximetry 12/10/16 12/10/16 12/10/16 18:15 18:30 18:45 Temperature Pulse Rate 85 84 84 Pulse Rate [ Anterior Bilateral Throughout] Respiratory 20 20 20 Rate Respiratory Rate [Anterior Bilateral Throughout] Blood Pressure 101/58 104/59 101/60 O2 Sat by Pulse 97 97 97 Oximetry 12/10/16 12/10/16 12/10/16 19:00 19:15 19:30 Temperature Pulse Rate 85 84 84 Pulse Rate [ Anterior Bilateral Throughout] Respiratory 20 20 20 Rate Respiratory Rate [Anterior Bilateral Throughout] Blood Pressure 98/57 106/61 105/60 O2 Sat by Pulse 97 97 97 Oximetry 0312/10/16 12/10/16 19:37 19:45 19:47 Temperature Pulse Rate 84 86 Pulse Rate [ 87 Anterior Bilateral Throughout] Respiratory 20 Rate Respiratory 20 Rate [Anterior Bilateral Throughout] Blood Pressure 105/60 98/57 O2 Sat by Pulse 97 98 Oximetry 12/10/16 12/10/16 12/10/16 20:00 20:02 20:15 Temperature 101.6 F H Pulse Rate 87 88 Pulse Rate [ 89 Anterior Bilateral Throughout] Respiratory 20 20 Rate Respiratory 20 Rate [Anterior Bilateral Throughout] Blood Pressure 102/58 98/55 O2 Sat by Pulse 97 96 Oximetry Constitutional: no acute distress, asleep Eyes: non-icteric ENT: oropharynx moist Neck: supple, no lymphadenopathy, no JVD Effort: normal Ascultation: Bilateral: diminished breath sounds Cardiovascular: regular rate and rhythm Gastrointestinal: normoactive bowel sounds, soft, non-tender, non-distended Integumentary: normal Extremities: no cyanosis, no edema Neurologic: non-focal exam, pupils equal and round, unable to assess CBC and BMP: 12/07/16 05:30 12/07/16 05:30 ABG, PT/INR, D-dimer: ABG POC ABG pH 7.485 (7.35-7.45) H 12/10/16 06:05 POC ABG pCO2 36.5 (35-45) 12/10/16 06:05 POC ABG pO2 87 (80-105) 12/10/16 06:05 POC ABG HCO3 27.5 12/10/16 06:05 POC ABG Total CO2 29 12/10/16 06:05 POC ABG O2 Sat 97 12/10/16 06:05 PT/INR, D-dimer PT 14.0 Sec. (12.2-14.9) 12/06/16 16:07 INR 1.09 (0.87-1.13) 12/06/16 16:07 Abnormal lab findings: Abnormal Labs 12/07/16 12/07/16 12/07/16 00:35 05:30 05:30 RDW 13.0 L Plt Count 93 L [place] % (Auto) 11.2 H [place] # 1.1 H Seg Neutrophils % 71.3 H POC ABG pH Creatinine 0.6 L Glucose 168 H POC Glucose Calcium 7.8 L Direct Bilirubin 0.7 H Total Creatine Kinase 343 H C-Reactive Protein Albumin 2.6 L 12/07/16 12/07/16 12/07/16 06:58 16:41 18:30 RDW Plt Count [place] % (Auto) [place] # Seg Neutrophils % POC ABG pH Creatinine Glucose POC Glucose 175 H Calcium Direct Bilirubin Total Creatine Kinase 242 H C-Reactive Protein 7.70 H Albumin 12/09/16 12/10/16 12/10/16 11:58 06:05 12:24 RDW Plt Count [place] % (Auto) [place] # Seg Neutrophils % POC ABG pH 7.485 H Creatinine Glucose POC Glucose 141 H 183 H Calcium Direct Bilirubin Total Creatine Kinase C-Reactive Protein Albumin 12/10/16 17:47 RDW Plt Count [place] % (Auto) [place] # Seg Neutrophils % POC ABG pH Creatinine Glucose POC Glucose 176 H Calcium Direct Bilirubin Total Creatine Kinase C-Reactive Protein Albumin Chest x-ray: image reviewed (alveolar edema) Allied health notes reviewed: RT
[2016-12-10] MEDS: LOVENOX SUB-Q SCH (22:29)
[2016-12-10] MEDS: ZOCOR PO SCH (22:29)
[2016-12-11] MEDS: VANCOMYCIN VIAL 1,250 MG in NACL 0.9% 250ML 250 ML IV SCH (01:15)
[2016-12-11] MEDS: DUONEB 0.5 MG-3 MG/3 ML SOLN IH SCH ×4 (01:41→20:25)
--- NOTE | 2016-12-11 04:21 | Progress Note ---
Assessment and Plan - Patient Problems (1) Septic shock Current Visit: Yes Status: Acute Plan to address problem: Sepsis protocol: Pressor support, ivf, abx, supportive care, monitor uop q shift (2) Respiratory failure Current Visit: Yes Status: Acute Qualifiers: Chronicity: C Respiratory failure complication: R Plan to address problem: Wean vent as tolerated, Daily SBP, Pulmonary consulted, The high probability of a clinically significant, sudden or life threatening deterioration of the [respiratory, cardiac] system(s) required my full and direct attention, intervention and personal management. The aggregate critical care time was [44] minutes. This time is in addition to time spent performing reported procedures but includes the following: [x] Data Review and interpretation [x] Patient assessment and monitoring of vital signs [x] Documentation [x] Medication orders and management (3) Non-compliance Current Visit: No Status: Chronic Plan to address problem: continue current care. (4) Systolic CHF, acute on chronic Current Visit: No Status: Acute Plan to address problem: Cardiology consulted, continue telemetry, continue current medication therapy, supportive care. (5) Diabetes Current Visit: No Status: Chronic Qualifiers: Diabetes mellitus type: D Diabetes mellitus complication status: D Diabetes mellitus complication detail: D Diabetic retinopathy severity: D Proliferative retinopathy type: P Diabetes mellitus macular edema: D Diabetes mellitus halfway insulin use: D Laterality: L Chronic kidney disease stage: C Plan to address problem: ADA diet, insulin, accu check (6) DVT prophylaxis Current Visit: Yes Status: Acute History Interval history: Pt intubated, sedated, on vent suppport, on pressor support. No reported nursing events. Pt stable overnight. Hospitalist Physical - Constitutional Vitals: Temp Pulse Resp BP Pulse Ox 101.1 F H 103 H 20 104/60 96 12/11/16 00:00 12/11/16 01:57 12/11/16 01:57 12/10/16 23:49 12/10/16 23:49 General appearance: Present: mild distress, obese, other (orally intubated.) - Neck Neck: Present: supple - Respiratory Respiratory: bilateral: diminished - Cardiovascular Rhythm: regular Heart Sounds: Present: S1 & S2 - Extremities Extremities: no ischemia Extremity abnormal: edema Peripheral Pulses: within normal limits - Abdominal General gastrointestinal: soft, non-tender, non-distended - Integumentary Integumentary: Present: clear, dry - Psychiatric Psychiatric: no intact judgment & insight - Neurologic Neurologic: no gait normal Results - Labs CBC & Chem 7: 12/07/16 05:30 12/07/16 05:30 Labs: Laboratory Last Values WBC 9.4 K/mm3 (4.5-11.0) 12/07/16 05:30 RBC 4.41 M/mm3 (3.65-5.03) 12/07/16 05:30 Hgb 13.3 gm/dl (11.8-15.2) 12/07/16 05:30 Hct 39.7 % (35.5-45.6) 12/07/16 05:30 MCV 90 fl (84-94) 12/07/16 05:30 MCH 30 pg (28-32) 12/07/16 05:30 MCHC 34 % (32-34) 12/07/16 05:30 RDW 13.0 % (13.2-15.2) L 12/07/16 05:30 Plt Count 93 K/mm3 (140-440) L 12/07/16 05:30 Lymph % (Auto) 17.0 % (13.4-35.0) 12/07/16 05:30 [place] % (Auto) 11.2 % (0.0-7.3) H 12/07/16 05:30 Eos % (Auto) 0.1 % (0.0-4.3) 12/07/16 05:30 Baso % (Auto) 0.4 % (0.0-1.8) 12/07/16 05:30 Lymph # 1.6 K/mm3 (1.2-5.4) 12/07/16 05:30 [place] # 1.1 K/mm3 (0.0-0.8) H 12/07/16 05:30 Eos # 0.0 K/mm3 (0.0-0.4) 12/07/16 05:30 Baso # 0.0 K/mm3 (0.0-0.1) 12/07/16 05:30 Seg Neutrophils % 71.3 % (40.0-70.0) H 12/07/16 05:30 Seg Neutrophils # 6.7 K/mm3 (1.8-7.7) 12/07/16 05:30 PT 14.0 Sec. (12.2-14.9) 12/06/16 16:07 INR 1.09 (0.87-1.13) 12/06/16 16:07 APTT 29.1 Sec. (24.2-36.6) 12/06/16 16:07 POC ABG pH 7.485 (7.35-7.45) H 12/10/16 06:05 POC ABG pCO2 36.5 (35-45) 12/10/16 06:05 POC ABG pO2 87 (80-105) 12/10/16 06:05 POC ABG HCO3 27.5 12/10/16 06:05 POC ABG Total CO2 29 12/10/16 06:05 POC ABG O2 Sat 97 12/10/16 06:05 POC ABG Base Excess 4 12/10/16 06:05 FiO2 50 % 12/10/16 06:05 Sodium 137 mmol/L (137-145) 12/07/16 05:30 Potassium 4.0 mmol/L (3.6-5.0) 12/07/16 05:30 Chloride 99.2 mmol/L (98-107) 12/07/16 05:30 Carbon Dioxide 24 mmol/L (22-30) 12/07/16 05:30 Anion Gap 18 mmol/L 12/07/16 05:30 BUN 14 mg/dL (9-20) 12/07/16 05:30 Creatinine 0.6 mg/dL (0.8-1.5) L 12/07/16 05:30 Estimated GFR > 60 ml/min 12/07/16 05:30 BUN/Creatinine Ratio 23.33 % 12/07/16 05:30 Glucose 168 mg/dL (75-100) H 12/07/16 05:30 POC Glucose 240 (70-105) H 12/10/16 23:21 Lactic Acid 1.2 mmol/L (0.7-2.0) 12/08/16 04:35 Calcium 7.8 mg/dL (8.4-10.2) L 12/07/16 05:30 Phosphorus 3.0 mg/dL (2.5-4.5) 12/07/16 05:30 Magnesium 1.9 mg/dL (1.7-2.3) 12/07/16 05:30 Total Bilirubin 1.1 mg/dL (0.1-1.2) 12/07/16 05:30 Direct Bilirubin 0.7 mg/dL (0-0.2) H 12/07/16 05:30 Indirect Bilirubin 0.4 mg/dL 12/07/16 05:30 AST 27 units/L (5-40) 12/07/16 05:30 ALT 14 units/L (7-56) 12/07/16 05:30 Alkaline Phosphatase 49 units/L (35-129) 12/07/16 05:30 Ammonia 42.0 umol/L (25-60) 12/06/16 16:07 Total Creatine Kinase 242 units/L (55-170) H 12/07/16 06:58 CK-MB (CK-2) 2.8 ng/mL (0.0-4.0) 12/07/16 06:58 CK-MB (CK-2) Rel Index 1.1 (0-4) 12/07/16 06:58 Troponin T < 0.010 ng/mL (0.00-0.029) 12/07/16 06:58 C-Reactive Protein 7.70 mg/dL (0.00-1.30) H 12/07/16 16:41 Total Protein 6.7 g/dL (6.3-8.2) 12/07/16 05:30 Albumin 2.6 g/dL (3.9-5) L 12/07/16 05:30 Albumin/Globulin Ratio 0.6 % 12/07/16 05:30 Urine Color Winsome (Yellow) 12/06/16 15:30 Urine Turbidity Clear (Clear) 12/06/16 15:30 Urine pH 6.0 (5.0-7.0) 12/06/16 15:30 Ur Specific [place] 1.017 (1.003-1.030) 12/06/16 15:30 Urine Protein 100 mg/dl mg/dL (Negative) 12/06/16 15:30 Urine Glucose (UA) 50 mg/dL (Negative) 12/06/16 15:30 Urine Ketones Neg mg/dL (Negative) 12/06/16 15:30 Urine Blood Sm (Negative) 12/06/16 15:30 Urine Nitrite Neg (Negative) 12/06/16 15:30 Urine Bilirubin Neg (Negative) 12/06/16 15:30 Urine Urobilinogen 4.0 mg/dL (<2.0) 12/06/16 15:30 Ur Leukocyte Esterase Neg (Negative) 12/06/16 15:30 Urine WBC (Auto) < 1.0 /HPF (0.0-6.0) 12/06/16 15:30 Urine RBC (Auto) 4.0 /HPF (0.0-6.0) 12/06/16 15:30 Urine Mucus Few /HPF 12/06/16 15:30 Salicylates < 0.3 mg/dL (2.8-20.0) L 12/06/16 16:07 Urine Opiates Screen Presumptive negative 12/06/16 15:30 Urine Methadone Screen Presumptive negative 12/06/16 15:30 Acetaminophen < 15.0 ug/mL (10.0-30.0) 12/06/16 16:07 Ur Barbiturates Screen Presumptive negative 12/06/16 15:30 Ur Phencyclidine Scrn Presumptive negative 12/06/16 15:30 Ur Amphetamines Screen Presumptive negative 12/06/16 15:30 U Benzodiazepines Scrn Presumptive negative 12/06/16 15:30 Urine Cocaine Screen Presumptive negative 12/06/16 15:30 U Marijuana (THC) Screen Presumptive negative 12/06/16 15:30 Drugs of Abuse Note Disclamer 12/06/16 15:30 Plasma/Serum Alcohol < 0.01 gm% (0-0.07) 12/06/16 16:07
[2016-12-11 05:01] LABS: ISTAT Base Excess 5; ISTAT HCO3 28.6; ISTAT PCO2 41.4 (35-45); ISTAT PH 7.447 (7.35-7.45); ISTAT PO2 84 (80-105); ISTAT SO2 97; ISTAT TCO2 30
[2016-12-11 08:40] LABS: Hematocrit 35.9 % (35.5-45.6); Mean Corpuscular HGB Conc 34 % (32-34); Mean Corpuscular Hemoglobin 30 pg (28-32); Mean Corpuscular Volume 90 fl (84-94); Platelet Count 229 K/mm3 (140-440); Red Blood Count 4.01 M/mm3 (3.65-5.03); Red Cell Distribution Width 13.1 % (13.2-15.2); White Blood Count 8.2 K/mm3 (4.5-11.0)
--- NOTE | 2016-12-11 09:59 | XRay Report ---
AP CHEST: HISTORY: Follow-up respiratory failure. FINDINGS: The endotracheal tube, nasogastric tube and right venous catheter are unchanged since yesterday's exam. Heart size is stable at the upper limits of normal. There is decreased pulmonary venous congestion on today's exam. No evidence for pneumonia, pleural effusion or pneumothorax. Left pleural calcifications are stable. IMPRESSION: No acute cardiopulmonary process.
[2016-12-11] MEDS: TYLENOL PR PRN (10:03)
[2016-12-11] MEDS: LASIX 100 MG in NACL 0.9% 90 ML IV SCH (10:11)
[2016-12-11] MEDS: LEVAQUIN 500MG/100ML 500 MG/100 ML BAG IV SCH (10:18)
[2016-12-11] MEDS: PROTONIX FEEDTUBE SCH (10:19)
[2016-12-11] MEDS: LOPRESSOR PO SCH ×2 (10:20→21:32)
[2016-12-11] MEDS: BABY ASPIRIN PO SCH (10:20)
--- NOTE | 2016-12-11 11:11 | Progress Note ---
Assessment and Plan Acute respiratory failure intubated on the vent Pneumonia Altered mental status Chronic systolic heart failure Ischemic cardiomyopathy Echo this admission demonstrates left ventricular ejection fraction 35%. Hx of CAD [facility] 2014: patent mid LAD stent, patent diagonal branch stent, patent mid obtuse marginal stent. Nonobstructive disease of the RCA. EF 30-35%. Recommend: Continue lasix drip to improve diuresis. Continue medical therapy for this underlying coronary artery disease and cardiomyopathy. Subjective Date of service: 12/11/16 Principal diagnosis: Acute hypoxemic respiratory failure, shock Interval history: Patient remains intubated and sedated on the ventilator. Remains in IV furosemide. Objective Vital Signs Temp Pulse Pulse Pulse Resp Resp BP 12/11/16 10:20 105 H 107/72 12/11/16 08:45 99 H 17 114/70 12/11/16 08:30 94 H 20 106/64 12/11/16 08:15 91 H 20 97/61 12/11/16 08:00 92 H 104 H 20 100/61 12/11/16 07:51 101.1 F H 12/11/16 07:45 89 20 98/60 12/11/16 07:30 87 20 93/55 12/11/16 07:15 86 20 85/54 12/11/16 07:00 86 20 87/53 12/11/16 06:45 90 20 91/58 12/11/16 06:30 92 H 20 91/55 12/11/16 06:15 94 H 20 90/54 12/11/16 06:00 97 H 20 100/63 12/11/16 05:45 96 H 20 93/60 12/11/16 05:30 97 H 20 105/64 12/11/16 05:15 99 H 20 109/69 12/11/16 05:06 100.6 F H 12/11/16 05:00 96 H 20 112/66 12/11/16 04:45 98 H 21 112/69 12/11/16 04:42 97 H 113/68 12/11/16 04:30 95 H 20 113/68 12/11/16 04:15 97 H 21 115/70 12/11/16 04:00 96 H 20 111/69 12/11/16 03:45 96 H 20 109/66 12/11/16 03:30 94 H 20 107/64 12/11/16 03:15 94 H 20 102/64 12/11/16 03:00 91 H 20 109/66 12/11/16 02:45 94 H 20 113/67 12/11/16 02:30 88 20 106/64 12/11/16 02:15 87 20 102/62 12/11/16 02:00 91 H 20 110/67 12/11/16 01:57 103 H 20 12/11/16 01:45 94 H 20 112/69 12/11/16 01:42 101 H 20 12/11/16 01:30 100 H 21 113/66 12/11/16 01:15 96 H 20 105/63 12/11/16 01:00 98 H 20 109/65 12/11/16 00:45 97 H 20 115/65 12/11/16 00:30 98 H 17 102/63 12/11/16 00:15 96 H 18 110/63 12/11/16 00:00 101.1 F H 93 H 19 99/59 12/10/16 23:49 93 H 104/60 12/10/16 23:45 93 H 19 112/67 12/10/16 23:30 90 20 104/60 12/10/16 23:15 91 H 18 104/59 12/10/16 23:00 90 20 107/64 12/10/16 22:45 91 H 20 100/56 12/10/16 22:30 92 H 21 102/58 12/10/16 22:28 90 92/54 12/10/16 22:15 90 21 92/54 12/10/16 22:00 91 H 20 90/51 12/10/16 21:45 94 H 20 94/53 12/10/16 21:30 103 H 18 105/58 12/10/16 21:15 93 H 17 96/55 12/10/16 21:00 95 H 20 97/54 12/10/16 20:45 96 H 20 93/53 12/10/16 20:31 97 H 17 107/48 12/10/16 20:15 88 20 98/55 12/10/16 20:02 89 20 12/10/16 20:00 101.6 F H 87 20 102/58 12/10/16 19:47 87 20 12/10/16 19:45 86 20 98/57 03/17 19:37 84 105/60 12/10/16 19:30 84 20 105/60 12/10/16 19:15 84 20 106/61 12/10/16 19:00 85 20 98/57 12/10/16 18:45 84 20 101/60 12/10/16 18:30 84 20 104/59 12/10/16 18:15 85 20 101/58 12/10/16 18:00 84 20 101/60 12/10/16 17:45 85 20 100/58 12/10/16 17:30 86 20 103/60 12/10/16 17:15 85 20 102/59 12/10/16 17:00 86 20 99/57 12/10/16 16:58 96 H 96/56 12/10/16 16:45 88 20 98/56 12/10/16 16:30 89 20 95/54 12/10/16 16:15 92 H 20 97/56 12/10/16 16:00 101.3 F H 95 H 20 98/59 12/10/16 15:45 99 H 20 100/58 12/10/16 15:30 103 H 20 99/56 12/10/16 15:15 108 H 19 106/57 12/10/16 15:00 100 H 12 102/65 12/10/16 14:45 89 20 92/55 12/10/16 14:30 89 20 93/54 12/10/16 14:15 90 20 95/54 12/10/16 14:05 95 H 96/58 12/10/16 14:03 92 H 20 12/10/16 14:00 91 H 20 96/58 12/10/16 13:59 90 93/54 12/10/16 13:45 88 20 93/54 12/10/16 13:30 88 20 96/55 12/10/16 13:15 87 20 90/55 12/10/16 13:00 88 20 93/54 12/10/16 12:45 87 20 96/54 12/10/16 12:30 89 20 89/53 12/10/16 12:15 88 20 92/52 12/10/16 12:00 101.4 F H 89 20 86/52 12/10/16 11:45 89 20 90/54 12/10/16 11:30 89 20 89/53 12/10/16 11:15 91 H 20 89/53 Pulse Ox 12/11/16 10:20 12/11/16 08:45 96 12/11/16 08:30 97 12/11/16 08:15 96 12/11/16 08:00 96 12/11/16 07:51 12/11/16 07:45 97 12/11/16 07:30 97 12/11/16 07:15 96 12/11/16 07:00 96 12/11/16 06:45 96 12/11/16 06:30 95 12/11/16 06:15 95 12/11/16 06:00 96 12/11/16 05:45 96 12/11/16 05:30 95 12/11/16 05:15 96 12/11/16 05:06 12/11/16 05:00 96 12/11/16 04:45 96 12/11/16 04:42 96 12/11/16 04:30 96 12/11/16 04:15 96 12/11/16 04:00 96 12/11/16 03:45 96 12/11/16 03:30 96 12/11/16 03:15 96 12/11/16 03:00 97 12/11/16 02:45 97 12/11/16 02:30 95 12/11/16 02:15 95 12/11/16 02:00 96 12/11/16 01:57 12/11/16 01:45 96 12/11/16 01:42 12/11/16 01:30 97 12/11/16 01:15 96 12/11/16 01:00 96 12/11/16 00:45 95 12/11/16 00:30 96 12/11/16 00:15 96 12/11/16 00:00 95 12/10/16 23:49 96 12/10/16 23:45 96 12/10/16 23:30 96 12/10/16 23:15 95 12/10/16 23:00 95 12/10/16 22:45 95 12/10/16 22:30 95 12/10/16 22:28 12/10/16 22:15 95 12/10/16 22:00 94 12/10/16 21:45 94 12/10/16 21:30 99 12/10/16 21:15 94 12/10/16 21:00 94 12/10/16 20:45 94 12/10/16 20:31 97 12/10/16 20:15 96 12/10/16 20:02 12/10/16 20:00 97 12/10/16 19:47 12/10/16 19:45 98 12/10/16 19:37 97 12/10/16 19:30 97 12/10/16 19:15 97 12/10/16 19:00 97 12/10/16 18:45 97 12/10/16 18:30 97 12/10/16 18:15 97 12/10/16 18:00 97 12/10/16 17:45 97 12/10/16 17:30 97 12/10/16 17:15 96 12/10/16 17:00 96 12/10/16 16:58 96 12/10/16 16:45 96 12/10/16 16:30 96 12/10/16 16:15 96 12/10/16 16:00 96 12/10/16 15:45 96 12/10/16 15:30 96 12/10/16 15:15 97 12/10/16 15:00 97 12/10/16 14:45 95 12/10/16 14:30 95 12/10/16 14:15 95 12/10/16 14:05 95 12/10/16 14:03 12/10/16 14:00 95 12/10/16 13:59 95 12/10/16 13:45 95 12/10/16 13:30 95 12/10/16 13:15 95 12/10/16 13:00 95 12/10/16 12:45 95 12/10/16 12:30 95 12/10/16 12:15 96 12/10/16 12:00 96 12/10/16 11:45 96 12/10/16 11:30 96 12/10/16 11:15 96 - Physical Examination General: Other (intubated on the vent) Cardiac: Positive: Reg Rate and Rhythm Extremities: Absent: edema - Labs and Meds CBC 12/11/16 Range/Units 08:29 WBC 8.2 (4.5-11.0) K/mm3 RBC 4.01 (3.65-5.03) M/mm3 Hgb 12.0 (11.8-15.2) gm/dl Hct 35.9 (35.5-45.6) % Plt Count 229 (140-440) K/mm3 - Allied health notes Allied health notes reviewed: RT
--- NOTE | 2016-12-11 12:47 | Progress Note ---
Assessment and Plan Daily PSV trials. - Patient Problems (1) Septic shock Current Visit: Yes Status: Acute (2) Respiratory failure Current Visit: Yes Status: Acute Qualifiers: Chronicity: C Respiratory failure complication: R (3) Altered mental status Current Visit: Yes Status: Acute Qualifiers: Altered mental status type: A Coma depth: C Coma timing: C (4) Hypotension Current Visit: No Status: Acute Qualifiers: Hypotension type: H Trimester: T (5) Chronic heart failure Current Visit: No Status: Acute Qualifiers: Heart failure type: H Subjective Date of service: 12/11/16 Principal diagnosis: Acute hypoxemic respiratory failure, shock Interval history: 61-year-old male patient with significant past medical history of ischemic cardiomyopathy with ejection fraction of 10-15%, hypertension, dyslipidemia type 2 diabetes mellitus ongoing tobacco use hypertension history of metabolic encephalopathy during last admission was brought to the emergency room with altered level of consciousness and confusion, patient was found at home by his ex- with altered level of consciousness. Patient was unable to protect airway , and patient was promptly intubated and placed on ventilatory support. Remains critically ill on mechanical ventilatory support. Weaned off vasopressor support. On going high grade intermittent fevers, without leuocytosis 1. Sepsis with shock continue sepsis protocol, continue with antibiotics, continue vasopressor support With on going fevers plan to change levofloxacin to Zosyn. Was re-cultured overnight. Will follow up on cultures. Evaluate for non-infectious causes of fever in the ICU- get lower extremity dopplers r/o DVT, get CMp to evaluate liver enzymes. Continue to monitor closely. 2. Pneumonia sputum cultures positive for strep pneumoniae, all blood cultures- NGTD. 3. Acute respiratory failure Continue on mechanical ventilatory support Lung protective strategies VAP bundle, Critical bundles Analgesia and sedation Initiate nutritional support with glycemic control SAT/SBT daily VTE/Stress ulcer prophylaxis Ackerman catheter in this critically ill patient. 4. CHF- HFrEF Per Cardiology 5. Acute toxic encephalopathy Most likely due to sepsis, care as above Objective - Exam Narrative Exam: General: Intubated, sedated, non-toxic appearance HEENT: MMM, EOMI cardiac: S1-S2 heard lungs: Ventilated breath sounds, right-sided crackles abdomen: soft, nontender, nondistended bowel sounds positive extremities: no edema clubbing or cyanosis Skin: no rash or lesion Neuro: Intubated, sedated Vital Signs - 12hr 03/02/17 03/02/17 03/02/17 00:45 01:00 01:15 Temperature Pulse Rate 97 H 98 H 96 H Pulse Rate [ Anterior Bilateral Throughout] Pulse Rate [ Left Dorsalis Pedis] Respiratory 20 20 20 Rate Respiratory Rate [Anterior Bilateral Throughout] Blood Pressure 115/65 109/65 105/63 O2 Sat by Pulse 95 96 96 Oximetry 12/11/16 12/11/16 12/11/16 01:30 01:42 01:45 Temperature Pulse Rate 100 H 94 H Pulse Rate [ 101 H Anterior Bilateral Throughout] Pulse Rate [ Left Dorsalis Pedis] Respiratory 21 20 Rate Respiratory 20 Rate [Anterior Bilateral Throughout] Blood Pressure 113/66 112/69 O2 Sat by Pulse 97 96 Oximetry 12/11/16 12/11/16 12/11/16 01:57 02:00 02:15 Temperature Pulse Rate 91 H 87 Pulse Rate [ 103 H Anterior Bilateral Throughout] Pulse Rate [ Left Dorsalis Pedis] Respiratory 20 20 Rate Respiratory 20 Rate [Anterior Bilateral Throughout] Blood Pressure 110/67 102/62 O2 Sat by Pulse 96 95 Oximetry 12/11/16 12/11/16 12/11/16 02:30 02:45 03:00 Temperature Pulse Rate 88 94 H 91 H Pulse Rate [ Anterior Bilateral Throughout] Pulse Rate [ Left Dorsalis Pedis] Respiratory 20 20 20 Rate Respiratory Rate [Anterior Bilateral Throughout] Blood Pressure 106/64 113/67 109/66 O2 Sat by Pulse 95 97 97 Oximetry 12/11/16 12/11/16 12/11/16 03:15 03:30 03:45 Temperature Pulse Rate 94 H 94 H 96 H Pulse Rate [ Anterior Bilateral Throughout] Pulse Rate [ Left Dorsalis Pedis] Respiratory 20 20 20 Rate Respiratory Rate [Anterior Bilateral Throughout] Blood Pressure 102/64 107/64 109/66 O2 Sat by Pulse 96 96 96 Oximetry 12/11/16 12/11/16 12/11/16 04:00 04:15 04:30 Temperature Pulse Rate 96 H 97 H 95 H Pulse Rate [ Anterior Bilateral Throughout] Pulse Rate [ Left Dorsalis Pedis] Respiratory 20 21 20 Rate Respiratory Rate [Anterior Bilateral Throughout] Blood Pressure 111/69 115/70 113/68 O2 Sat by Pulse 96 96 96 Oximetry 12/11/16 12/11/16 12/11/16 04:42 04:45 05:00 Temperature Pulse Rate 97 H 98 H 96 H Pulse Rate [ Anterior Bilateral Throughout] Pulse Rate [ Left Dorsalis Pedis] Respiratory 21 20 Rate Respiratory Rate [Anterior Bilateral Throughout] Blood Pressure 113/68 112/69 112/66 O2 Sat by Pulse 96 96 96 Oximetry 12/11/16 12/11/16 12/11/16 05:06 05:15 05:30 Temperature 100.6 F H Pulse Rate 99 H 97 H Pulse Rate [ Anterior Bilateral Throughout] Pulse Rate [ Left Dorsalis Pedis] Respiratory 20 20 Rate Respiratory Rate [Anterior Bilateral Throughout] Blood Pressure 109/69 105/64 O2 Sat by Pulse 96 95 Oximetry 12/11/16 12/11/16 12/11/16 05:45 06:00 06:15 Temperature Pulse Rate 96 H 97 H 94 H Pulse Rate [ Anterior Bilateral Throughout] Pulse Rate [ Left Dorsalis Pedis] Respiratory 20 20 20 Rate Respiratory Rate [Anterior Bilateral Throughout] Blood Pressure 93/60 100/63 90/54 O2 Sat by Pulse 96 96 95 Oximetry 12/11/16 12/11/16 12/11/16 06:30 06:45 07:00 Temperature Pulse Rate 92 H 90 86 Pulse Rate [ Anterior Bilateral Throughout] Pulse Rate [ Left Dorsalis Pedis] Respiratory 20 20 20 Rate Respiratory Rate [Anterior Bilateral Throughout] Blood Pressure 91/55 91/58 87/53 O2 Sat by Pulse 95 96 96 Oximetry 12/11/16 12/11/16 12/11/16 07:15 07:30 07:45 Temperature Pulse Rate 86 87 89 Pulse Rate [ Anterior Bilateral Throughout] Pulse Rate [ Left Dorsalis Pedis] Respiratory 20 20 20 Rate Respiratory Rate [Anterior Bilateral Throughout] Blood Pressure 85/54 93/55 98/60 O2 Sat by Pulse 96 97 97 Oximetry 12/11/16 12/11/16 12/11/16 07:51 08:00 08:15 Temperature 101.1 F H Pulse Rate 92 H 91 H Pulse Rate [ Anterior Bilateral Throughout] Pulse Rate [ 104 H Left Dorsalis Pedis] Respiratory 20 20 Rate Respiratory Rate [Anterior Bilateral Throughout] Blood Pressure 100/61 97/61 O2 Sat by Pulse 96 96 Oximetry 12/11/16 12/11/16 12/11/16 08:30 08:45 09:35 Temperature Pulse Rate 94 H 99 H 105 H Pulse Rate [ Anterior Bilateral Throughout] Pulse Rate [ Left Dorsalis Pedis] Respiratory 20 17 Rate Respiratory Rate [Anterior Bilateral Throughout] Blood Pressure 106/64 114/70 107/72 O2 Sat by Pulse 97 96 98 Oximetry 12/11/16 12/11/16 10:20 11:46 Temperature Pulse Rate 105 H Pulse Rate [ Anterior Bilateral Throughout] Pulse Rate [ Left Dorsalis Pedis] Respiratory Rate Respiratory Rate [Anterior Bilateral Throughout] Blood Pressure 107/72 113/67 O2 Sat by Pulse 97 Oximetry Constitutional: no acute distress, asleep Eyes: non-icteric ENT: oropharynx moist Neck: supple, no lymphadenopathy, no JVD Effort: normal Ascultation: Bilateral: diminished breath sounds Cardiovascular: regular rate and rhythm Gastrointestinal: normoactive bowel sounds, soft, non-tender, non-distended Integumentary: normal Extremities: no cyanosis, no edema Neurologic: non-focal exam, pupils equal and round, unable to assess CBC and BMP: 12/11/16 08:29 12/07/16 05:30 ABG, PT/INR, D-dimer: ABG POC ABG pH 7.447 (7.35-7.45) 12/11/16 04:49 POC ABG pCO2 41.4 (35-45) 12/11/16 04:49 POC ABG pO2 84 (80-105) 12/11/16 04:49 POC ABG HCO3 28.6 12/11/16 04:49 POC ABG Total CO2 30 12/11/16 04:49 POC ABG O2 Sat 97 12/11/16 04:49 PT/INR, D-dimer PT 14.0 Sec. (12.2-14.9) 12/06/16 16:07 INR 1.09 (0.87-1.13) 12/06/16 16:07 Abnormal lab findings: Abnormal Labs 12/07/16 12/07/16 12/07/16 00:35 05:30 05:30 RDW 13.0 L Plt Count 93 L [place] % (Auto) 11.2 H [place] # 1.1 H Seg Neutrophils % 71.3 H POC ABG pH Creatinine 0.6 L Glucose 168 H POC Glucose Calcium 7.8 L Direct Bilirubin 0.7 H Total Creatine Kinase 343 H C-Reactive Protein Albumin 2.6 L 12/07/16 12/07/16 12/07/16 06:58 16:41 18:30 RDW Plt Count [place] % (Auto) [place] # Seg Neutrophils % POC ABG pH Creatinine Glucose POC Glucose 175 H Calcium Direct Bilirubin Total Creatine Kinase 242 H C-Reactive Protein 7.70 H Albumin 12/09/16 12/10/16 12/10/16 11:58 06:05 12:24 RDW Plt Count [place] % (Auto) [place] # Seg Neutrophils % POC ABG pH 7.485 H Creatinine Glucose POC Glucose 141 H 183 H Calcium Direct Bilirubin Total Creatine Kinase C-Reactive Protein Albumin 12/10/16 12/10/16 12/11/16 17:47 23:21 06:10 RDW Plt Count [place] % (Auto) [place] # Seg Neutrophils % POC ABG pH Creatinine Glucose POC Glucose 176 H 240 H 252 H Calcium Direct Bilirubin Total Creatine Kinase C-Reactive Protein Albumin 12/11/16 12/11/16 12/11/16 08:29 09:14 11:37 RDW 13.1 L Plt Count [place] % (Auto) [place] # Seg Neutrophils % POC ABG pH Creatinine Glucose POC Glucose 253 H 284 H Calcium Direct Bilirubin Total Creatine Kinase C-Reactive Protein Albumin Allied health notes reviewed: RT
--- NOTE | 2016-12-11 14:55 | XRay Report ---
AP CHEST: HISTORY: Central line placement The endotracheal tube and nasogastric tube remain in good position. A right IJ venous catheter has been inserted which terminates in the superior SVC. Consider advancement by 4-5 cm to the cavoatrial junction. Heart size is stable. There are chronic interstitial changes in both lungs and pleural calcifications which are unchanged. This may be related to previous asbestos exposure. No infiltrate or pneumothorax. IMPRESSION: Right IJ venous catheter as described.
--- NOTE | 2016-12-11 16:21 | Progress Note ---
Assessment and Plan - Patient Problems (1) Septic shock Current Visit: Yes Status: Acute Plan to address problem: Sepsis protocol: Pressor support, ivf, abx, supportive care, monitor uop q shift (2) Respiratory failure Current Visit: Yes Status: Acute Qualifiers: Chronicity: C Respiratory failure complication: R Plan to address problem: Wean vent as tolerated, Daily SBP, Pulmonary consulted, The high probability of a clinically significant, sudden or life threatening deterioration of the [respiratory, cardiac] system(s) required my full and direct attention, intervention and personal management. The aggregate critical care time was [44] minutes. This time is in addition to time spent performing reported procedures but includes the following: [x] Data Review and interpretation [x] Patient assessment and monitoring of vital signs [x] Documentation [x] Medication orders and management (3) Non-compliance Current Visit: No Status: Chronic Plan to address problem: continue current care. (4) Systolic CHF, acute on chronic Current Visit: No Status: Acute Plan to address problem: Cardiology consulted, continue telemetry, continue current medication therapy, supportive care. (5) Diabetes Current Visit: No Status: Chronic Qualifiers: Diabetes mellitus type: D Diabetes mellitus complication status: D Diabetes mellitus complication detail: D Diabetic retinopathy severity: D Proliferative retinopathy type: P Diabetes mellitus macular edema: D Diabetes mellitus retirement insulin use: D Laterality: L Chronic kidney disease stage: C Plan to address problem: ADA diet, insulin, accu check (6) DVT prophylaxis Current Visit: Yes Status: Acute History Interval history: Pt intubated, sedated, on vent suppport, on pressor support. Pt stable overnight. Hospitalist Physical - Constitutional Vitals: Temp Pulse Resp BP Pulse Ox 102.6 F H 87 17 99/60 98 12/11/16 12:00 12/11/16 14:45 12/11/16 14:45 12/11/16 14:45 12/11/16 14:45 General appearance: Present: mild distress, obese, other (orally intubated.) - Respiratory Respiratory: bilateral: diminished - Cardiovascular Rhythm: regular Heart Sounds: Present: S1 & S2 - Extremities Extremities: no ischemia Extremity abnormal: edema Peripheral Pulses: within normal limits - Abdominal General gastrointestinal: soft, non-distended, no hepatomegaly, no splenomegaly - Integumentary Integumentary: Present: clear, dry - Psychiatric Psychiatric: no intact judgment & insight Results - Labs CBC & Chem 7: 12/11/16 08:29 12/07/16 05:30 Labs: Laboratory Last Values WBC 8.2 K/mm3 (4.5-11.0) 12/11/16 08:29 RBC 4.01 M/mm3 (3.65-5.03) 12/11/16 08:29 Hgb 12.0 gm/dl (11.8-15.2) 12/11/16 08:29 Hct 35.9 % (35.5-45.6) 12/11/16 08:29 MCV 90 fl (84-94) 12/11/16 08:29 MCH 30 pg (28-32) 12/11/16 08:29 MCHC 34 % (32-34) 12/11/16 08:29 RDW 13.1 % (13.2-15.2) L 12/11/16 08:29 Plt Count 229 K/mm3 (140-440) 12/11/16 08:29 Lymph % (Auto) 17.0 % (13.4-35.0) 12/07/16 05:30 [place] % (Auto) 11.2 % (0.0-7.3) H 12/07/16 05:30 Eos % (Auto) 0.1 % (0.0-4.3) 12/07/16 05:30 Baso % (Auto) 0.4 % (0.0-1.8) 12/07/16 05:30 Lymph # 1.6 K/mm3 (1.2-5.4) 12/07/16 05:30 [place] # 1.1 K/mm3 (0.0-0.8) H 12/07/16 05:30 Eos # 0.0 K/mm3 (0.0-0.4) 12/07/16 05:30 Baso # 0.0 K/mm3 (0.0-0.1) 12/07/16 05:30 Seg Neutrophils % 71.3 % (40.0-70.0) H 12/07/16 05:30 Seg Neutrophils # 6.7 K/mm3 (1.8-7.7) 12/07/16 05:30 PT 14.0 Sec. (12.2-14.9) 12/06/16 16:07 INR 1.09 (0.87-1.13) 12/06/16 16:07 APTT 29.1 Sec. (24.2-36.6) 12/06/16 16:07 POC ABG pH 7.447 (7.35-7.45) 12/11/16 04:49 POC ABG pCO2 41.4 (35-45) 12/11/16 04:49 POC ABG pO2 84 (80-105) 12/11/16 04:49 POC ABG HCO3 28.6 12/11/16 04:49 POC ABG Total CO2 30 12/11/16 04:49 POC ABG O2 Sat 97 12/11/16 04:49 POC ABG Base Excess 5 12/11/16 04:49 FiO2 50 % 12/11/16 04:49 Sodium 137 mmol/L (137-145) 12/07/16 05:30 Potassium 4.0 mmol/L (3.6-5.0) 12/07/16 05:30 Chloride 99.2 mmol/L (98-107) 12/07/16 05:30 Carbon Dioxide 24 mmol/L (22-30) 12/07/16 05:30 Anion Gap 18 mmol/L 12/07/16 05:30 BUN 14 mg/dL (9-20) 12/07/16 05:30 Creatinine 0.6 mg/dL (0.8-1.5) L 12/07/16 05:30 Estimated GFR > 60 ml/min 12/07/16 05:30 BUN/Creatinine Ratio 23.33 % 12/07/16 05:30 Glucose 168 mg/dL (75-100) H 12/07/16 05:30 POC Glucose 284 (70-105) H 12/11/16 11:37 Lactic Acid 1.2 mmol/L (0.7-2.0) 12/08/16 04:35 Calcium 7.8 mg/dL (8.4-10.2) L 12/07/16 05:30 Phosphorus 3.0 mg/dL (2.5-4.5) 12/07/16 05:30 Magnesium 1.9 mg/dL (1.7-2.3) 12/07/16 05:30 Total Bilirubin 1.1 mg/dL (0.1-1.2) 12/07/16 05:30 Direct Bilirubin 0.7 mg/dL (0-0.2) H 12/07/16 05:30 Indirect Bilirubin 0.4 mg/dL 12/07/16 05:30 AST 27 units/L (5-40) 12/07/16 05:30 ALT 14 units/L (7-56) 12/07/16 05:30 Alkaline Phosphatase 49 units/L (35-129) 12/07/16 05:30 Ammonia 42.0 umol/L (25-60) 12/06/16 16:07 Total Creatine Kinase 242 units/L (55-170) H 12/07/16 06:58 CK-MB (CK-2) 2.8 ng/mL (0.0-4.0) 12/07/16 06:58 CK-MB (CK-2) Rel Index 1.1 (0-4) 12/07/16 06:58 Troponin T < 0.010 ng/mL (0.00-0.029) 12/07/16 06:58 C-Reactive Protein 7.70 mg/dL (0.00-1.30) H 12/07/16 16:41 Total Protein 6.7 g/dL (6.3-8.2) 12/07/16 05:30 Albumin 2.6 g/dL (3.9-5) L 12/07/16 05:30 Albumin/Globulin Ratio 0.6 % 12/07/16 05:30 Urine Color Winsome (Yellow) 12/06/16 15:30 Urine Turbidity Clear (Clear) 12/06/16 15:30 Urine pH 6.0 (5.0-7.0) 12/06/16 15:30 Ur Specific [place] 1.017 (1.003-1.030) 12/06/16 15:30 Urine Protein 100 mg/dl mg/dL (Negative) 12/06/16 15:30 Urine Glucose (UA) 50 mg/dL (Negative) 12/06/16 15:30 Urine Ketones Neg mg/dL (Negative) 12/06/16 15:30 Urine Blood Sm (Negative) 12/06/16 15:30 Urine Nitrite Neg (Negative) 12/06/16 15:30 Urine Bilirubin Neg (Negative) 12/06/16 15:30 Urine Urobilinogen 4.0 mg/dL (<2.0) 12/06/16 15:30 Ur Leukocyte Esterase Neg (Negative) 12/06/16 15:30 Urine WBC (Auto) < 1.0 /HPF (0.0-6.0) 12/06/16 15:30 Urine RBC (Auto) 4.0 /HPF (0.0-6.0) 12/06/16 15:30 Urine Mucus Few /HPF 12/06/16 15:30 Salicylates < 0.3 mg/dL (2.8-20.0) L 12/06/16 16:07 Urine Opiates Screen Presumptive negative 12/06/16 15:30 Urine Methadone Screen Presumptive negative 12/06/16 15:30 Acetaminophen < 15.0 ug/mL (10.0-30.0) 12/06/16 16:07 Ur Barbiturates Screen Presumptive negative 12/06/16 15:30 Ur Phencyclidine Scrn Presumptive negative 12/06/16 15:30 Ur Amphetamines Screen Presumptive negative 12/06/16 15:30 U Benzodiazepines Scrn Presumptive negative 12/06/16 15:30 Urine Cocaine Screen Presumptive negative 12/06/16 15:30 U Marijuana (THC) Screen Presumptive negative 12/06/16 15:30 Drugs of Abuse Note Disclamer 12/06/16 15:30 Plasma/Serum Alcohol < 0.01 gm% (0-0.07) 12/06/16 16:07
[2016-12-11 16:49] LABS: Alanine Aminotransferase 14 units/L (7-56); Albumin 2.6 g/dL (3.9-5); Albumin/Globulin Ratio 0.5 %; Alkaline Phosphatase 44 units/L (35-129); Anion Gap 18 mmol/L; Bilirubin,Total 0.9 mg/dL (0.1-1.2); Blood Urea Nitrogen 37 mg/dL (9-20); Calcium 8.3 mg/dL (8.4-10.2); Carbon Dioxide 28 mmol/L (22-30); Glucose 258 mg/dL (75-100); Potassium 3.7 mmol/L (3.6-5.0); Sodium 144 mmol/L (137-145); Total Protein 7.6 g/dL (6.3-8.2)
[2016-12-11] MEDS: TYLENOL FEEDTUBE PRN (21:30)
[2016-12-11] MEDS: ZOCOR PO SCH (21:32)
[2016-12-11] MEDS: LOVENOX SUB-Q SCH (21:33)
[2016-12-11] MEDS: fentaNYL DRIP Premix 2,000 MCG/100 ML BAG IV SCH (21:37)
[2016-12-11] MEDS: VERSED/NS 100MG/100ML 100 MG/100 ML BAG IV SCH (21:39)
[2016-12-12] MEDS: ATIVAN IV PRN ×2 (00:41→08:58)
[2016-12-12] MEDS: DUONEB 0.5 MG-3 MG/3 ML SOLN IH SCH ×4 (02:30→22:06)
[2016-12-12 05:10] LABS: ISTAT Base Excess 6; ISTAT HCO3 29.8; ISTAT PCO2 44.8 (35-45); ISTAT PH 7.431 (7.35-7.45); ISTAT PO2 69 (80-105); ISTAT SO2 94; ISTAT TCO2 31
[2016-12-12] MEDS: BABY ASPIRIN PO SCH (09:01)
[2016-12-12] MEDS: LEVAQUIN 750MG/150ML 750 MG/150 ML BAG IV SCH (09:01)
[2016-12-12] MEDS: LOPRESSOR PO SCH ×2 (09:02→22:16)
[2016-12-12] MEDS: PROTONIX FEEDTUBE SCH (09:03)
--- NOTE | 2016-12-12 09:35 | XRay Report ---
AP CHEST: HISTORY: Follow-up respiratory failure. FINDINGS: The endotracheal tube and nasogastric tube remain in good position. The right IJ venous catheter has been removed. Heart size is stable and within normal limits. The lungs are relatively clear on today's exam. Partial atelectasis in the left lower lobe has resolved. No acute process is noted.
--- NOTE | 2016-12-12 10:16 | Progress Note ---
Assessment and Plan Acute respiratory failure remains intubated Pneumonia Altered mental status Chronic systolic heart failure Ischemic cardiomyopathy Echo this admission demonstrates left ventricular ejection fraction 35%. Hx of CAD [facility] 2014: patent mid LAD stent, patent diagonal branch stent, patent mid obtuse marginal stent. Nonobstructive disease of the RCA. EF 30-35%. Recommend: Continue medical therapy for this underlying coronary artery disease and cardiomyopathy. Subjective Date of service: 12/12/16 Principal diagnosis: Acute hypoxemic respiratory failure, shock Interval history: Patient remains intubated. Objective Vital Signs Temp Pulse Pulse Pulse Pulse Pulse Pulse 12/12/16 10:12 101 H 12/12/16 09:02 107 H 12/12/16 08:28 105 H 12/12/16 08:15 99 H 12/12/16 08:07 85 12/12/16 08:03 89 12/12/16 08:00 85 106 H 12/12/16 07:45 74 12/12/16 07:30 75 12/12/16 07:15 76 12/12/16 07:00 76 12/12/16 06:45 75 12/12/16 06:30 78 12/12/16 06:15 79 12/12/16 06:00 78 12/12/16 05:45 76 12/12/16 05:30 78 12/12/16 05:15 79 12/12/16 05:00 78 12/12/16 04:45 80 12/12/16 04:30 79 12/12/16 04:15 79 12/12/16 04:00 81 89 89 89 12/12/16 03:52 99.2 F 12/12/16 03:45 84 12/12/16 03:30 97 H 12/12/16 03:15 82 12/12/16 03:07 79 12/12/16 03:00 80 12/12/16 02:45 77 12/12/16 02:43 80 12/12/16 02:30 79 81 12/12/16 02:15 85 12/12/16 02:00 79 12/12/16 01:45 79 12/12/16 01:30 80 12/12/16 01:15 86 12/12/16 01:00 85 12/12/16 00:46 87 12/12/16 00:45 88 12/12/16 00:30 96 H 12/12/16 00:15 106 H 12/12/16 00:10 103.0 F H 12/12/16 00:00 110 H 98 H 98 H 98 H 98 H 12/11/16 23:45 87 12/11/16 23:37 88 12/11/16 23:30 89 12/11/16 23:15 91 H 12/11/16 23:00 93 H 12/11/16 22:45 106 H 12/11/16 22:30 110 H 12/11/16 22:16 119 H 12/11/16 22:00 122 H 12/11/16 21:45 108 H 12/11/16 21:32 93 H 12/11/16 21:30 97 H 12/11/16 21:15 92 H 12/11/16 21:00 89 12/11/16 20:45 90 12/11/16 20:37 99 H 12/11/16 20:30 97 H 12/11/16 20:27 99 H 12/11/16 20:25 106 H 12/11/16 20:15 90 12/11/16 20:08 100.4 F H 12/11/16 20:00 100 H 86 86 86 86 12/11/16 19:45 87 12/11/16 19:30 88 12/11/16 19:15 92 H 12/11/16 19:00 92 H 12/11/16 18:45 95 H 12/11/16 18:30 97 H 12/11/16 18:15 119 H 12/11/16 18:01 120 H 12/11/16 17:55 103 H 12/11/16 17:45 115 H 12/11/16 17:30 104 H 12/11/16 17:15 92 H 12/11/16 17:00 96 H 12/11/16 16:45 97 H 102 H 12/11/16 16:30 110 H 12/11/16 16:15 105 H 105 H 12/11/16 16:00 100.4 F H 102 H 12/11/16 15:45 98 H 12/11/16 15:40 103 H 12/11/16 15:30 95 H 12/11/16 15:15 87 12/11/16 15:00 87 12/11/16 14:45 87 12/11/16 14:30 86 12/11/16 14:15 92 H 12/11/16 14:00 90 12/11/16 13:45 100 H 12/11/16 13:30 94 H 12/11/16 13:15 98 H 12/11/16 13:00 103 H 12/11/16 12:45 116 H 12/11/16 12:30 114 H 12/11/16 12:15 94 H 12/11/16 12:00 102.6 F H 99 H 12/11/16 11:46 12/11/16 11:45 90 12/11/16 11:30 87 12/11/16 11:15 88 12/11/16 11:00 90 12/11/16 10:45 93 H 12/11/16 10:30 98 H 12/11/16 10:20 105 H 12/11/16 10:15 102 H Resp Resp BP Pulse Ox 12/12/16 10:12 13 117/69 97 12/12/16 09:02 126/72 12/12/16 08:28 23 12/12/16 08:15 21 117/70 97 12/12/16 08:07 15 12/12/16 08:03 15 94/59 97 12/12/16 08:00 12 115/68 97 12/12/16 07:45 20 94/59 12/12/16 07:30 20 90/56 12/12/16 07:15 20 93/58 12/12/16 07:00 20 97/60 12/12/16 06:45 20 93/57 12/12/16 06:30 20 93/59 12/12/16 06:15 20 97/60 12/12/16 06:00 20 97/62 12/12/16 05:45 20 95/60 12/12/16 05:30 19 97/60 12/12/16 05:15 20 96/60 12/12/16 05:00 20 97/60 12/12/16 04:45 20 97/61 12/12/16 04:30 20 90/58 12/12/16 04:15 20 90/56 12/12/16 04:00 20 95/57 94 12/12/16 03:52 12/12/16 03:45 20 92/56 12/12/16 03:30 20 100/64 94 03 03:15 20 96/58 12/12/16 03:07 99/61 99 03 03:00 20 91/59 98 12/12/16 02:45 20 96/58 98 12/12/16 02:43 20 12/12/16 02:30 20 20 99/61 99 12/12/16 02:15 20 101/61 97 12/12/16 02:00 20 92/56 12/12/16 01:45 20 91/55 12/12/16 01:30 20 90/53 12/12/16 01:15 20 95/57 12/12/16 01:00 20 97/57 96 12/12/16 00:46 20 101/60 96 12/12/16 00:45 20 101/60 95 12/12/16 00:30 20 120/72 97 12/12/16 00:15 21 128/73 97 12/12/16 00:10 12/12/16 00:00 26 H 120/70 99 12/11/16 23:45 20 101/57 95 12/11/16 23:37 101/57 96 12/11/16 23:30 20 101/57 95 12/11/16 23:15 19 102/59 95 12/11/16 23:00 20 105/61 95 12/11/16 22:45 19 102/64 95 12/11/16 22:30 23 102/65 98 12/11/16 22:16 19 92/71 94 12/11/16 22:00 17 97 12/11/16 21:45 27 H 106/59 98 12/11/16 21:32 95/51 12/11/16 21:30 20 101/58 97 12/11/16 21:15 20 93/51 12/11/16 21:00 20 94/57 12/11/16 20:45 20 95/57 12/11/16 20:37 21 12/11/16 20:30 17 115/64 99 12/11/16 20:27 103/61 98 12/11/16 20:25 18 12/11/16 20:15 20 103/61 12/11/16 20:08 12/11/16 20:00 21 119/75 98 12/11/16 19:45 20 103/59 03// 19:30 20 99/60 03/02/ 19:15 20 96/57 03/11/28 19:00 20 101/57 03/17 18:45 20 92/57 03/11/28 18:30 20 98/58 12/11/16 18:15 21 136/83 98 12/11/16 18:01 27 H 136/83 98 12/11/16 17:55 18 116/67 12/11/16 17:45 16 123/65 91 02 17:30 19 113/64 97 12/11/16 17:15 19 97/58 95 12/11/16 17:00 20 100/60 95 12/11/16 16:45 20 20 103/63 95 12/11/16 16:30 27 H 128/64 98 12/11/16 16:15 14 18 120/69 97 12/11/16 16:00 16 121/71 97 12/11/16 15:45 17 116/67 97 12/11/16 15:40 18 116/67 12/11/16 15:30 22 119/68 97 12/11/16 15:15 16 105/63 98 12/11/16 15:00 17 96/58 98 12/11/16 14:45 17 99/60 98 12/11/16 14:30 17 97/58 97 12/11/16 14:15 14 104/62 98 12/11/16 14:00 17 94/56 96 12/11/16 13:45 24 94/55 96 12/11/16 13:30 17 97/55 94 12/11/16 13:15 20 107/59 95 02 13:00 20 98/57 95 12/11/16 12:45 21 95/68 97 12/11/16 12:30 23 95/68 98 12/11/16 12:15 18 104/60 98 12/11/16 12:00 20 106/59 98 02 11:46 25 H 113/67 97 12/11/16 11:45 21 113/67 99 /0217 11:30 20 105/63 97 0217 11:15 20 100/62 97 02 11:00 20 100/62 96 12/11/16 10:45 20 96/59 95 12/11/16 10:30 20 100/61 95 12/11/16 10:20 107/72 12/11/16 10:15 20 104/63 96 - Physical Examination General: Other (intubated ) Neck: Positive: trachea midline Cardiac: Positive: Reg Rate and Rhythm Extremities: Absent: edema - Labs and Meds Cardiac Enzymes 12/11/16 Range/Units 16:12 AST 30 (5-40) units/L Comprehensive Metabolic Panel 12/11/16 Range/Units 16:12 Sodium 144 D (137-145) mmol/L Potassium 3.7 (3.6-5.0) mmol/L Chloride 102.0 (98-107) mmol/L Carbon Dioxide 28 (22-30) mmol/L BUN 37 H (9-20) mg/dL Creatinine 1.0 D (0.8-1.5) mg/dL Glucose 258 H (75-100) mg/dL Calcium 8.3 L (8.4-10.2) mg/dL AST 30 (5-40) units/L ALT 14 (7-56) units/L Alkaline Phosphatase 44 (35-129) units/L Total Protein 7.6 (6.3-8.2) g/dL Albumin 2.6 L (3.9-5) g/dL - Allied health notes Allied health notes reviewed: RT
[2016-12-12 10:46] LABS: ISTAT Base Excess 10; ISTAT HCO3 32.7; ISTAT PCO2 41.9 (35-45); ISTAT PO2 87 (80-105); ISTAT SO2 97; ISTAT TCO2 34
--- NOTE | 2016-12-12 11:42 | Progress Note ---
Assessment and Plan Extubate, support with NIPPV as needed. - Patient Problems (1) Septic shock Current Visit: Yes Status: Acute Plan to address problem: Continue with antibiotics. Off vasopressor support On going intermittent fevers Cultures are negative to date. Plan to get ID consult (2) Respiratory failure Current Visit: Yes Status: Acute Qualifiers: Chronicity: C Respiratory failure complication: R Plan to address problem: Plan to extubate with NIPPV support. HOB>40, aspiration precautions Bronchodilators PRN (3) Altered mental status Current Visit: Yes Status: Acute Qualifiers: Altered mental status type: A Coma depth: C Coma timing: C Plan to address problem: Probably secondary to toxic, metabolic cuases Neurology consult (4) Hypotension Current Visit: No Status: Acute Qualifiers: Hypotension type: H Trimester: T (5) Chronic heart failure Current Visit: No Status: Acute Qualifiers: Heart failure type: H Plan to address problem: Continue to monitor hemodynamics closely Subjective Date of service: 12/12/16 Principal diagnosis: Acute hypoxemic respiratory failure, shock Interval history: 61-year-old male patient with significant past medical history of ischemic cardiomyopathy with ejection fraction of 10-15%, hypertension, dyslipidemia type 2 diabetes mellitus ongoing tobacco use hypertension history of metabolic encephalopathy during last admission was brought to the emergency room with altered level of consciousness and confusion, patient was found at home by his ex- with altered level of consciousness. Patient was unable to protect airway , and patient was promptly intubated and placed on ventilatory support. Remains critically ill on mechanical ventilatory support. Weaned off vasopressor support. On going high grade intermittent fevers, without leukocytosis 1. Sepsis with shock continue sepsis protocol, continue with antibiotics, continue vasopressor support With on going fevers plan to change levofloxacin to Zosyn. Was re-cultured overnight. Will follow up on cultures. Evaluate for non-infectious causes of fever in the ICU- get lower extremity dopplers r/o DVT, get CMp to evaluate liver enzymes. Continue to monitor closely. 2. Pneumonia sputum cultures positive for strep pneumoniae, all blood cultures- NGTD. 3. Acute respiratory failure Tolerating PSV/SBT Plan to liberate from mechanical ventilatory support if parameters are acceptable. Nocturnal and PRN NIPPV support 4. CHF- HFrEF Per Cardiology 5. Acute toxic encephalopathy Most likely due to sepsis, care as above Objective - Exam Narrative Exam: General: Intubated, sedated, non-toxic appearance HEENT: MMM, EOMI cardiac: S1-S2 heard lungs: Ventilated breath sounds, right-sided crackles abdomen: soft, nontender, nondistended bowel sounds positive extremities: no edema clubbing or cyanosis Skin: no rash or lesion Neuro:Obeying simple commands, but writhing in bed Vital Signs - 12hr 12/11/16 12/12/16 12/12/16 23:45 00:00 00:10 Temperature 103.0 F H Pulse Rate 87 110 H Pulse Rate [ Anterior Bilateral Throughout] Pulse Rate [ 98 H Left Dorsalis Pedis] Pulse Rate [ 98 H Left Radial] Pulse Rate [ 98 H Right Dorsalis Pedis] Pulse Rate [ 98 H Right Radial] Respiratory 20 26 H Rate Respiratory Rate [Anterior Bilateral Throughout] Blood Pressure 101/57 120/70 O2 Sat by Pulse 95 99 Oximetry 12/12/16 12/12/16 12/12/16 00:15 00:30 00:45 Temperature Pulse Rate 106 H 96 H 88 Pulse Rate [ Anterior Bilateral Throughout] Pulse Rate [ Left Dorsalis Pedis] Pulse Rate [ Left Radial] Pulse Rate [ Right Dorsalis Pedis] Pulse Rate [ Right Radial] Respiratory 21 20 20 Rate Respiratory Rate [Anterior Bilateral Throughout] Blood Pressure 128/73 120/72 101/60 O2 Sat by Pulse 97 97 95 Oximetry 12/12/16 12/12/16 12/12/16 00:46 01:00 01:15 Temperature Pulse Rate 87 85 86 Pulse Rate [ Anterior Bilateral Throughout] Pulse Rate [ Left Dorsalis Pedis] Pulse Rate [ Left Radial] Pulse Rate [ Right Dorsalis Pedis] Pulse Rate [ Right Radial] Respiratory 20 20 20 Rate Respiratory Rate [Anterior Bilateral Throughout] Blood Pressure 101/60 97/57 95/57 O2 Sat by Pulse 96 96 Oximetry 12/12/16 12/12/16 12/12/16 01:30 01:45 02:00 Temperature Pulse Rate 80 79 79 Pulse Rate [ Anterior Bilateral Throughout] Pulse Rate [ Left Dorsalis Pedis] Pulse Rate [ Left Radial] Pulse Rate [ Right Dorsalis Pedis] Pulse Rate [ Right Radial] Respiratory 20 20 20 Rate Respiratory Rate [Anterior Bilateral Throughout] Blood Pressure 90/53 91/55 92/56 O2 Sat by Pulse Oximetry 12/12/16 12/12/16 12/12/16 02:15 02:30 02:43 Temperature Pulse Rate 85 79 Pulse Rate [ 81 80 Anterior Bilateral Throughout] Pulse Rate [ Left Dorsalis Pedis] Pulse Rate [ Left Radial] Pulse Rate [ Right Dorsalis Pedis] Pulse Rate [ Right Radial] Respiratory 20 20 Rate Respiratory 20 20 Rate [Anterior Bilateral Throughout] Blood Pressure 101/61 99/61 O2 Sat by Pulse 97 99 Oximetry 12/12/16 12/12/16 12/12/16 02:45 03:00 03:07 Temperature Pulse Rate 77 80 79 Pulse Rate [ Anterior Bilateral Throughout] Pulse Rate [ Left Dorsalis Pedis] Pulse Rate [ Left Radial] Pulse Rate [ Right Dorsalis Pedis] Pulse Rate [ Right Radial] Respiratory 20 20 Rate Respiratory Rate [Anterior Bilateral Throughout] Blood Pressure 96/58 91/59 99/61 O2 Sat by Pulse 98 98 99 Oximetry 12/12/16 12/12/16 12/12/16 03:15 03:30 03:45 Temperature Pulse Rate 82 97 H 84 Pulse Rate [ Anterior Bilateral Throughout] Pulse Rate [ Left Dorsalis Pedis] Pulse Rate [ Left Radial] Pulse Rate [ Right Dorsalis Pedis] Pulse Rate [ Right Radial] Respiratory 20 20 20 Rate Respiratory Rate [Anterior Bilateral Throughout] Blood Pressure 96/58 100/64 92/56 O2 Sat by Pulse 94 Oximetry 12/12/16 12/12/16 12/12/16 03:52 04:00 04:15 Temperature 99.2 F Pulse Rate 81 79 Pulse Rate [ Anterior Bilateral Throughout] Pulse Rate [ 89 Left Dorsalis Pedis] Pulse Rate [ 89 Left Radial] Pulse Rate [ 89 Right Dorsalis Pedis] Pulse Rate [ Right Radial] Respiratory 20 20 Rate Respiratory Rate [Anterior Bilateral Throughout] Blood Pressure 95/57 90/56 O2 Sat by Pulse 94 Oximetry 12/12/16 12/12/16 12/12/16 04:30 04:45 05:00 Temperature Pulse Rate 79 80 78 Pulse Rate [ Anterior Bilateral Throughout] Pulse Rate [ Left Dorsalis Pedis] Pulse Rate [ Left Radial] Pulse Rate [ Right Dorsalis Pedis] Pulse Rate [ Right Radial] Respiratory 20 20 20 Rate Respiratory Rate [Anterior Bilateral Throughout] Blood Pressure 90/58 97/61 97/60 O2 Sat by Pulse Oximetry 12/12/16 12/12/16 12/12/16 05:15 05:30 05:45 Temperature Pulse Rate 79 78 76 Pulse Rate [ Anterior Bilateral Throughout] Pulse Rate [ Left Dorsalis Pedis] Pulse Rate [ Left Radial] Pulse Rate [ Right Dorsalis Pedis] Pulse Rate [ Right Radial] Respiratory 20 19 20 Rate Respiratory Rate [Anterior Bilateral Throughout] Blood Pressure 96/60 97/60 95/60 O2 Sat by Pulse Oximetry 12/12/16 12/12/16 12/12/16 06:00 06:15 06:30 Temperature Pulse Rate 78 79 78 Pulse Rate [ Anterior Bilateral Throughout] Pulse Rate [ Left Dorsalis Pedis] Pulse Rate [ Left Radial] Pulse Rate [ Right Dorsalis Pedis] Pulse Rate [ Right Radial] Respiratory 20 20 20 Rate Respiratory Rate [Anterior Bilateral Throughout] Blood Pressure 97/62 97/60 93/59 O2 Sat by Pulse Oximetry 12/12/16 12/12/16 12/12/16 06:45 07:00 07:15 Temperature Pulse Rate 75 76 76 Pulse Rate [ Anterior Bilateral Throughout] Pulse Rate [ Left Dorsalis Pedis] Pulse Rate [ Left Radial] Pulse Rate [ Right Dorsalis Pedis] Pulse Rate [ Right Radial] Respiratory 20 20 20 Rate Respiratory Rate [Anterior Bilateral Throughout] Blood Pressure 93/57 97/60 93/58 O2 Sat by Pulse Oximetry 12/12/16 12/12/16 12/12/16 07:30 07:45 08:00 Temperature Pulse Rate 75 74 85 Pulse Rate [ Anterior Bilateral Throughout] Pulse Rate [ 106 H Left Dorsalis Pedis] Pulse Rate [ Left Radial] Pulse Rate [ Right Dorsalis Pedis] Pulse Rate [ Right Radial] Respiratory 20 20 12 Rate Respiratory Rate [Anterior Bilateral Throughout] Blood Pressure 90/56 94/59 115/68 O2 Sat by Pulse 97 Oximetry 12/12/16 12/12/16 12/12/16 08:03 08:07 08:15 Temperature Pulse Rate 89 99 H Pulse Rate [ 85 Anterior Bilateral Throughout] Pulse Rate [ Left Dorsalis Pedis] Pulse Rate [ Left Radial] Pulse Rate [ Right Dorsalis Pedis] Pulse Rate [ Right Radial] Respiratory 15 21 Rate Respiratory 15 Rate [Anterior Bilateral Throughout] Blood Pressure 94/59 117/70 O2 Sat by Pulse 97 97 Oximetry 12/12/16 12/12/16 12/12/16 08:28 08:30 08:45 Temperature Pulse Rate 101 H 113 H Pulse Rate [ 105 H Anterior Bilateral Throughout] Pulse Rate [ Left Dorsalis Pedis] Pulse Rate [ Left Radial] Pulse Rate [ Right Dorsalis Pedis] Pulse Rate [ Right Radial] Respiratory 14 23 Rate Respiratory 23 Rate [Anterior Bilateral Throughout] Blood Pressure 118/66 126/72 O2 Sat by Pulse 95 Oximetry 12/12/16 12/12/16 12/12/16 09:00 09:02 09:15 Temperature Pulse Rate 112 H 107 H 112 H Pulse Rate [ Anterior Bilateral Throughout] Pulse Rate [ Left Dorsalis Pedis] Pulse Rate [ Left Radial] Pulse Rate [ Right Dorsalis Pedis] Pulse Rate [ Right Radial] Respiratory 18 15 Rate Respiratory Rate [Anterior Bilateral Throughout] Blood Pressure 122/70 126/72 117/71 O2 Sat by Pulse 94 95 Oximetry 12/12/16 12/12/16 12/12/16 09:30 09:45 10:00 Temperature Pulse Rate 107 H 107 H 103 H Pulse Rate [ Anterior Bilateral Throughout] Pulse Rate [ Left Dorsalis Pedis] Pulse Rate [ Left Radial] Pulse Rate [ Right Dorsalis Pedis] Pulse Rate [ Right Radial] Respiratory 14 13 12 Rate Respiratory Rate [Anterior Bilateral Throughout] Blood Pressure 122/68 128/31 117/69 O2 Sat by Pulse 94 97 Oximetry 12/12/16 12/12/16 12/12/16 10:12 10:16 10:30 Temperature Pulse Rate 101 H 110 H 118 H Pulse Rate [ Anterior Bilateral Throughout] Pulse Rate [ Left Dorsalis Pedis] Pulse Rate [ Left Radial] Pulse Rate [ Right Dorsalis Pedis] Pulse Rate [ Right Radial] Respiratory 13 21 19 Rate Respiratory Rate [Anterior Bilateral Throughout] Blood Pressure 117/69 126/65 130/69 O2 Sat by Pulse 97 97 96 Oximetry Constitutional: no acute distress, asleep Eyes: non-icteric ENT: oropharynx moist Neck: supple, no lymphadenopathy, no JVD Effort: normal Ascultation: Bilateral: diminished breath sounds Cardiovascular: regular rate and rhythm Gastrointestinal: normoactive bowel sounds, soft, non-tender, non-distended Integumentary: normal Extremities: no cyanosis, no edema Neurologic: non-focal exam, pupils equal and round, unable to assess CBC and BMP: 12/11/16 08:29 12/11/16 16:12 ABG, PT/INR, D-dimer: ABG POC ABG pH 7.500 (7.35-7.45) H 12/12/16 10:12 POC ABG pCO2 41.9 (35-45) 12/12/16 10:12 POC ABG pO2 87 (80-105) 12/12/16 10:12 POC ABG HCO3 32.7 12/12/16 10:12 POC ABG Total CO2 34 12/12/16 10:12 POC ABG O2 Sat 97 12/12/16 10:12 PT/INR, D-dimer PT 14.0 Sec. (12.2-14.9) 12/06/16 16:07 INR 1.09 (0.87-1.13) 12/06/16 16:07 Abnormal lab findings: Abnormal Labs 12/07/16 12/07/16 12/07/16 00:35 05:30 05:30 RDW 13.0 L Plt Count 93 L [place] % (Auto) 11.2 H [place] # 1.1 H Seg Neutrophils % 71.3 H POC ABG pH POC ABG pO2 BUN Creatinine 0.6 L Glucose 168 H POC Glucose Calcium 7.8 L Direct Bilirubin 0.7 H Total Creatine Kinase 343 H C-Reactive Protein Albumin 2.6 L 12/07/16 12/07/16 12/07/16 06:58 16:41 18:30 RDW Plt Count [place] % (Auto) [place] # Seg Neutrophils % POC ABG pH POC ABG pO2 BUN Creatinine Glucose POC Glucose 175 H Calcium Direct Bilirubin Total Creatine Kinase 242 H C-Reactive Protein 7.70 H Albumin 12/09/16 12/10/16 12/10/16 11:58 06:05 12:24 RDW Plt Count [place] % (Auto) [place] # Seg Neutrophils % POC ABG pH 7.485 H POC ABG pO2 BUN Creatinine Glucose POC Glucose 141 H 183 H Calcium Direct Bilirubin Total Creatine Kinase C-Reactive Protein Albumin 12/10/16 12/10/16 12/11/16 17:47 23:21 06:10 RDW Plt Count [place] % (Auto) [place] # Seg Neutrophils % POC ABG pH POC ABG pO2 BUN Creatinine Glucose POC Glucose 176 H 240 H 252 H Calcium Direct Bilirubin Total Creatine Kinase C-Reactive Protein Albumin 12/11/16 12/11/16 12/11/16 08:29 09:14 11:37 RDW 13.1 L Plt Count [place] % (Auto) [place] # Seg Neutrophils % POC ABG pH POC ABG pO2 BUN Creatinine Glucose POC Glucose 253 H 284 H Calcium Direct Bilirubin Total Creatine Kinase C-Reactive Protein Albumin 12/11/16 12/11/16 12/11/16 16:12 17:54 23:35 RDW Plt Count [place] % (Auto) [place] # Seg Neutrophils % POC ABG pH POC ABG pO2 BUN 37 H Creatinine Glucose 258 H POC Glucose 227 H 264 H Calcium 8.3 L Direct Bilirubin Total Creatine Kinase C-Reactive Protein Albumin 2.6 L 12/12/16 12/12/16 12/12/16 04:37 06:06 10:12 RDW Plt Count [place] % (Auto) [place] # Seg Neutrophils % POC ABG pH 7.500 H POC ABG pO2 69 L BUN Creatinine Glucose POC Glucose 288 H Calcium Direct Bilirubin Total Creatine Kinase C-Reactive Protein Albumin Chest x-ray: report reviewed Allied health notes reviewed: RT
[2016-12-12] MEDS: D5/0.45NS 1,000 ML IV SCH (13:24)
[2016-12-12] MEDS: HALDOL IV PRN ×2 (14:48→22:18)
[2016-12-12] MEDS: TYLENOL PR PRN (18:08)
--- NOTE | 2016-12-12 20:53 | XRay Report ---
FINAL REPORT PROCEDURE: XR ABDOMEN 1V AP TECHNIQUE: AP supine portable radiograph of the abdomen was obtained at 12/12/2016 20:24 (EST) . HISTORY: dobbhoff placement COMPARISON: No prior studies are available for comparison. FINDINGS: Bowel gas pattern: Nonobstructive. Masses or calcifications: None. Bony structures: Normal. Other: The Sukhi cube is terminating within the stomach near the gastroesophageal junction.. There is diffuse prominence of pulmonary interstitial markings. IMPRESSION: Dobbhoff tube is terminating in the proximal stomach near the gastroesophageal junction.
--- NOTE | 2016-12-12 21:00 | XRay Report ---
FINAL REPORT PROCEDURE: XR ABDOMEN 1V AP TECHNIQUE: AP supine portable radiograph of the abdomen was obtained at 12/12/2016 20:27 (EST) . HISTORY: dobbhoff placement repeat. COMPARISON: 12/12/2016 2049 hours FINDINGS: Bowel gas pattern: Nonobstructive. Masses or calcifications: None. Bony structures: Normal. Other: Dobbhoff tube is terminating within the stomach. IMPRESSION: Dobbhoff tube is terminating within the stomach
[2016-12-12] MEDS: LOVENOX SUB-Q SCH (22:15)
[2016-12-12] MEDS: ZOCOR PO SCH (22:16)
[2016-12-12] MEDS: TYLENOL FEEDTUBE PRN (22:19)
[2016-12-13] MEDS: DUONEB 0.5 MG-3 MG/3 ML SOLN IH SCH ×4 (04:04→20:42)
[2016-12-13] MEDS: D5/0.45NS 1,000 ML IV SCH (05:52)
[2016-12-13] MEDS: BABY ASPIRIN PO SCH (10:33)
[2016-12-13] MEDS: LASIX IV SCH (10:34)
[2016-12-13] MEDS: LEVAQUIN 750MG/150ML 750 MG/150 ML BAG IV SCH (10:34)
[2016-12-13] MEDS: LOPRESSOR PO SCH ×2 (10:37→21:53)
[2016-12-13] MEDS: PROTONIX FEEDTUBE SCH (10:38)
[2016-12-13] MEDS: ZESTRIL PO SCH (10:38)
[2016-12-13] MEDS: HALDOL IV PRN ×3 (10:39→23:00)
[2016-12-13] MEDS: TYLENOL FEEDTUBE PRN ×2 (10:39→21:53)
--- NOTE | 2016-12-13 12:36 | Progress Note ---
Assessment and Plan - Patient Problems (1) Septic shock Current Visit: Yes Status: Acute Plan to address problem: Sepsis protocol: Pressor support, ivf, abx, supportive care, monitor uop q shift (2) Respiratory failure Current Visit: Yes Status: Acute Qualifiers: Chronicity: C Respiratory failure complication: R Plan to address problem: NIPPV as clinically indicated, pulmonary toilet, incentive spirometry, Pulmonary consulted, The high probability of a clinically significant, sudden or life threatening deterioration of the [respiratory, cardiac] system(s) required my full and direct attention, intervention and personal management. The aggregate critical care time was [44] minutes. This time is in addition to time spent performing reported procedures but includes the following: [x] Data Review and interpretation [x] Patient assessment and monitoring of vital signs [x] Documentation [x] Medication orders and management (3) Non-compliance Current Visit: No Status: Chronic Plan to address problem: continue current care. (4) Systolic CHF, acute on chronic Current Visit: No Status: Acute Plan to address problem: Cardiology consulted, continue telemetry, continue current medication therapy, supportive care. (5) Diabetes Current Visit: No Status: Chronic Qualifiers: Diabetes mellitus type: D Diabetes mellitus complication status: D Diabetes mellitus complication detail: D Diabetic retinopathy severity: D Proliferative retinopathy type: P Diabetes mellitus macular edema: D Diabetes mellitus mallet cutter insulin use: D Laterality: L Chronic kidney disease stage: C Plan to address problem: ADA diet, insulin, accu check (6) DVT prophylaxis Current Visit: Yes Status: Acute History Interval history: Pt extubated, No reported nursing events. Pt confused and agitated today. Pt stable overnight. Hospitalist Physical - Constitutional Vitals: Temp Pulse Resp BP Pulse Ox 101.9 F H 101 H 17 134/78 98 12/13/16 08:00 12/13/16 11:46 12/13/16 11:46 12/13/16 11:46 12/13/16 11:46 General appearance: Present: mild distress, obese, other (orally intubated.) - EENT Eyes: Present: PERRL ENT: hearing intact - Neck Neck: Present: supple - Respiratory Respiratory: bilateral: diminished - Cardiovascular Rhythm: regular Heart Sounds: Present: S1 & S2 - Extremities Extremities: no ischemia Extremity abnormal: edema Peripheral Pulses: within normal limits - Abdominal General gastrointestinal: soft, non-tender, non-distended - Integumentary Integumentary: Present: clear, dry - Psychiatric Psychiatric: no intact judgment & insight - Neurologic Neurologic: CNII-XII intact, moves all extremities Results - Labs CBC & Chem 7: 12/11/16 08:29 12/11/16 16:12 Labs: Laboratory Last Values WBC 8.2 K/mm3 (4.5-11.0) 12/11/16 08:29 RBC 4.01 M/mm3 (3.65-5.03) 12/11/16 08:29 Hgb 12.0 gm/dl (11.8-15.2) 12/11/16 08:29 Hct 35.9 % (35.5-45.6) 12/11/16 08:29 MCV 90 fl (84-94) 12/11/16 08:29 MCH 30 pg (28-32) 12/11/16 08:29 MCHC 34 % (32-34) 12/11/16 08:29 RDW 13.1 % (13.2-15.2) L 12/11/16 08:29 Plt Count 229 K/mm3 (140-440) 12/11/16 08:29 Lymph % (Auto) 17.0 % (13.4-35.0) 12/07/16 05:30 [place] % (Auto) 11.2 % (0.0-7.3) H 12/07/16 05:30 Eos % (Auto) 0.1 % (0.0-4.3) 12/07/16 05:30 Baso % (Auto) 0.4 % (0.0-1.8) 12/07/16 05:30 Lymph # 1.6 K/mm3 (1.2-5.4) 12/07/16 05:30 [place] # 1.1 K/mm3 (0.0-0.8) H 12/07/16 05:30 Eos # 0.0 K/mm3 (0.0-0.4) 12/07/16 05:30 Baso # 0.0 K/mm3 (0.0-0.1) 12/07/16 05:30 Seg Neutrophils % 71.3 % (40.0-70.0) H 12/07/16 05:30 Seg Neutrophils # 6.7 K/mm3 (1.8-7.7) 12/07/16 05:30 PT 14.0 Sec. (12.2-14.9) 12/06/16 16:07 INR 1.09 (0.87-1.13) 12/06/16 16:07 APTT 29.1 Sec. (24.2-36.6) 12/06/16 16:07 POC ABG pH 7.500 (7.35-7.45) H 12/12/16 10:12 POC ABG pCO2 41.9 (35-45) 12/12/16 10:12 POC ABG pO2 87 (80-105) 12/12/16 10:12 POC ABG HCO3 32.7 12/12/16 10:12 POC ABG Total CO2 34 12/12/16 10:12 POC ABG O2 Sat 97 12/12/16 10:12 POC ABG Base Excess 10 12/12/16 10:12 FiO2 45 % 12/12/16 10:12 Sodium 144 mmol/L (137-145) D 12/11/16 16:12 Potassium 3.7 mmol/L (3.6-5.0) 12/11/16 16:12 Chloride 102.0 mmol/L (98-107) 12/11/16 16:12 Carbon Dioxide 28 mmol/L (22-30) 12/11/16 16:12 Anion Gap 18 mmol/L 12/11/16 16:12 BUN 37 mg/dL (9-20) H 12/11/16 16:12 Creatinine 1.0 mg/dL (0.8-1.5) D 12/11/16 16:12 Estimated GFR > 60 ml/min 12/11/16 16:12 BUN/Creatinine Ratio 37.00 % 12/11/16 16:12 Glucose 258 mg/dL (75-100) H 12/11/16 16:12 POC Glucose 215 (70-105) H 12/13/16 05:38 Lactic Acid 1.2 mmol/L (0.7-2.0) 12/08/16 04:35 Calcium 8.3 mg/dL (8.4-10.2) L 12/11/16 16:12 Phosphorus 3.0 mg/dL (2.5-4.5) 12/07/16 05:30 Magnesium 1.9 mg/dL (1.7-2.3) 12/07/16 05:30 Total Bilirubin 0.9 mg/dL (0.1-1.2) 12/11/16 16:12 Direct Bilirubin 0.7 mg/dL (0-0.2) H 12/07/16 05:30 Indirect Bilirubin 0.4 mg/dL 12/07/16 05:30 AST 30 units/L (5-40) 12/11/16 16:12 ALT 14 units/L (7-56) 12/11/16 16:12 Alkaline Phosphatase 44 units/L (35-129) 12/11/16 16:12 Ammonia 42.0 umol/L (25-60) 12/06/16 16:07 Total Creatine Kinase 242 units/L (55-170) H 12/07/16 06:58 CK-MB (CK-2) 2.8 ng/mL (0.0-4.0) 12/07/16 06:58 CK-MB (CK-2) Rel Index 1.1 (0-4) 12/07/16 06:58 Troponin T < 0.010 ng/mL (0.00-0.029) 12/07/16 06:58 C-Reactive Protein 7.70 mg/dL (0.00-1.30) H 12/07/16 16:41 Total Protein 7.6 g/dL (6.3-8.2) 12/11/16 16:12 Albumin 2.6 g/dL (3.9-5) L 12/11/16 16:12 Albumin/Globulin Ratio 0.5 % 12/11/16 16:12 Urine Color Winsome (Yellow) 12/06/16 15:30 Urine Turbidity Clear (Clear) 12/06/16 15:30 Urine pH 6.0 (5.0-7.0) 12/06/16 15:30 Ur Specific [place] 1.017 (1.003-1.030) 12/06/16 15:30 Urine Protein 100 mg/dl mg/dL (Negative) 12/06/16 15:30 Urine Glucose (UA) 50 mg/dL (Negative) 12/06/16 15:30 Urine Ketones Neg mg/dL (Negative) 12/06/16 15:30 Urine Blood Sm (Negative) 12/06/16 15:30 Urine Nitrite Neg (Negative) 12/06/16 15:30 Urine Bilirubin Neg (Negative) 12/06/16 15:30 Urine Urobilinogen 4.0 mg/dL (<2.0) 12/06/16 15:30 Ur Leukocyte Esterase Neg (Negative) 12/06/16 15:30 Urine WBC (Auto) < 1.0 /HPF (0.0-6.0) 12/06/16 15:30 Urine RBC (Auto) 4.0 /HPF (0.0-6.0) 12/06/16 15:30 Urine Mucus Few /HPF 12/06/16 15:30 Salicylates < 0.3 mg/dL (2.8-20.0) L 12/06/16 16:07 Urine Opiates Screen Presumptive negative 12/06/16 15:30 Urine Methadone Screen Presumptive negative 12/06/16 15:30 Acetaminophen < 15.0 ug/mL (10.0-30.0) 12/06/16 16:07 Ur Barbiturates Screen Presumptive negative 12/06/16 15:30 Ur Phencyclidine Scrn Presumptive negative 12/06/16 15:30 Ur Amphetamines Screen Presumptive negative 12/06/16 15:30 U Benzodiazepines Scrn Presumptive negative 12/06/16 15:30 Urine Cocaine Screen Presumptive negative 12/06/16 15:30 U Marijuana (THC) Screen Presumptive negative 12/06/16 15:30 Drugs of Abuse Note Disclamer 12/06/16 15:30 Plasma/Serum Alcohol < 0.01 gm% (0-0.07) 12/06/16 16:07
--- NOTE | 2016-12-13 13:30 | Progress Note ---
Assessment and Plan - Patient Problems (1) Septic shock Current Visit: Yes Status: Acute (2) Respiratory failure Current Visit: Yes Status: Acute Qualifiers: Chronicity: C Respiratory failure complication: R (3) Altered mental status Current Visit: Yes Status: Acute Qualifiers: Altered mental status type: A Coma depth: C Coma timing: C (4) Hypotension Current Visit: No Status: Acute Qualifiers: Hypotension type: H Trimester: T (5) Chronic heart failure Current Visit: No Status: Acute Qualifiers: Heart failure type: H Subjective Date of service: 12/13/16 Principal diagnosis: Acute hypoxemic respiratory failure, shock Interval history: 61-year-old male patient with significant past medical history of ischemic cardiomyopathy with ejection fraction of 10-15%, hypertension, dyslipidemia type 2 diabetes mellitus ongoing tobacco use hypertension history of metabolic encephalopathy during last admission was brought to the emergency room with altered level of consciousness and confusion, patient was found at home by his ex- with altered level of consciousness. Patient was unable to protect airway , and patient was promptly intubated and placed on ventilatory support. On going high grade intermittent fevers, without leukocytosis 1. Sepsis with shock continue sepsis protocol, continue with antibiotics, continue vasopressor support With on going fevers plan to change levofloxacin to Zosyn. Was re-cultured overnight. Will follow up on cultures. Continue to monitor closely. Get ID consult 8in view of ongoing fevers with encephalopathy 2. Pneumonia sputum cultures positive for strep pneumoniae, all blood cultures- NGTD. 3. Acute respiratory failure Extubated Nocturnal and PRN NIPPV support 4. CHF- HFrEF Per Cardiology 5. Acute toxic encephalopathy Most likely due to sepsis, care as above Objective Vital Signs - 12hr 12/13/16 12/13/16 12/13/16 01:30 01:45 02:00 Temperature 98.2 F Pulse Rate 96 H 96 H 94 H Pulse Rate [ Anterior Bilateral Throughout] Pulse Rate [ From Monitor] Respiratory 26 H 29 H 15 Rate Respiratory Rate [Anterior Bilateral Throughout] Blood Pressure 133/79 145/76 145/82 O2 Sat by Pulse 98 97 99 Oximetry 12/13/16 12/13/16 12/13/16 02:15 02:30 02:45 Temperature Pulse Rate 91 H 93 H 101 H Pulse Rate [ Anterior Bilateral Throughout] Pulse Rate [ From Monitor] Respiratory 25 H 18 15 Rate Respiratory Rate [Anterior Bilateral Throughout] Blood Pressure 142/76 141/79 133/84 O2 Sat by Pulse 97 99 97 Oximetry 12/13/16 12/13/16 12/13/16 03:00 03:15 03:30 Temperature Pulse Rate 100 H 100 H 97 H Pulse Rate [ 97 H Anterior Bilateral Throughout] Pulse Rate [ From Monitor] Respiratory 20 22 24 Rate Respiratory 23 Rate [Anterior Bilateral Throughout] Blood Pressure 130/83 139/76 154/99 O2 Sat by Pulse 98 98 97 Oximetry 12/13/16 12/13/16 12/13/16 03:45 04:00 04:15 Temperature Pulse Rate 92 H 99 H 102 H Pulse Rate [ 99 H Anterior Bilateral Throughout] Pulse Rate [ From Monitor] Respiratory 21 23 22 Rate Respiratory 20 Rate [Anterior Bilateral Throughout] Blood Pressure 135/78 139/79 133/77 O2 Sat by Pulse 98 98 98 Oximetry 12/13/16 12/13/16 12/13/16 04:30 04:46 05:00 Temperature Pulse Rate 107 H 113 H 108 H Pulse Rate [ Anterior Bilateral Throughout] Pulse Rate [ From Monitor] Respiratory 30 H 16 22 Rate Respiratory Rate [Anterior Bilateral Throughout] Blood Pressure 129/76 133/66 124/77 O2 Sat by Pulse 99 97 Oximetry 12/13/16 12/13/16 12/13/16 05:15 05:30 05:45 Temperature Pulse Rate 104 H 106 H 100 H Pulse Rate [ Anterior Bilateral Throughout] Pulse Rate [ From Monitor] Respiratory 22 17 24 Rate Respiratory Rate [Anterior Bilateral Throughout] Blood Pressure 139/83 142/78 128/74 O2 Sat by Pulse 98 97 98 Oximetry 12/13/16 12/13/16 12/13/16 06:00 06:15 06:30 Temperature Pulse Rate 106 H 99 H 95 H Pulse Rate [ Anterior Bilateral Throughout] Pulse Rate [ From Monitor] Respiratory 22 21 20 Rate Respiratory Rate [Anterior Bilateral Throughout] Blood Pressure 132/75 131/75 134/75 O2 Sat by Pulse 97 97 98 Oximetry 12/13/16 12/13/16 12/13/16 06:45 07:00 07:15 Temperature Pulse Rate 93 H 105 H 105 H Pulse Rate [ Anterior Bilateral Throughout] Pulse Rate [ From Monitor] Respiratory 18 18 18 Rate Respiratory Rate [Anterior Bilateral Throughout] Blood Pressure 139/80 146/78 142/88 O2 Sat by Pulse 99 97 Oximetry 03/0412/13/16 12/13/16 07:30 07:45 08:00 Temperature 101.9 F H Pulse Rate 102 H 102 H 99 H Pulse Rate [ Anterior Bilateral Throughout] Pulse Rate [ 102 H From Monitor] Respiratory 22 15 21 Rate Respiratory Rate [Anterior Bilateral Throughout] Blood Pressure 130/79 138/74 143/81 O2 Sat by Pulse 98 97 99 Oximetry 12/13/16 12/13/16 12/13/16 08:15 08:21 08:30 Temperature Pulse Rate 98 H 102 H Pulse Rate [ 99 H Anterior Bilateral Throughout] Pulse Rate [ From Monitor] Respiratory 19 22 Rate Respiratory 20 Rate [Anterior Bilateral Throughout] Blood Pressure 134/82 145/74 O2 Sat by Pulse 98 98 Oximetry 12/13/16 12/13/16 12/13/16 08:39 08:43 08:46 Temperature Pulse Rate 109 H 108 H Pulse Rate [ 105 H Anterior Bilateral Throughout] Pulse Rate [ From Monitor] Respiratory 13 Rate Respiratory 26 H Rate [Anterior Bilateral Throughout] Blood Pressure 145/74 142/74 O2 Sat by Pulse 99 95 Oximetry 12/13/16 12/13/16 12/13/16 09:00 09:16 09:24 Temperature Pulse Rate 112 H 114 H Pulse Rate [ Anterior Bilateral Throughout] Pulse Rate [ From Monitor] Respiratory 20 18 Rate Respiratory Rate [Anterior Bilateral Throughout] Blood Pressure 138/91 138/91 O2 Sat by Pulse 97 98 97 Oximetry 12/13/16 12/13/16 12/13/16 09:30 09:46 10:00 Temperature Pulse Rate 114 H 114 H 102 H Pulse Rate [ Anterior Bilateral Throughout] Pulse Rate [ From Monitor] Respiratory 22 18 24 Rate Respiratory Rate [Anterior Bilateral Throughout] Blood Pressure 145/90 145/90 140/87 O2 Sat by Pulse 98 100 93 Oximetry 12/13/16 12/13/16 12/13/16 10:16 10:30 10:37 Temperature Pulse Rate 119 H 112 H 115 H Pulse Rate [ Anterior Bilateral Throughout] Pulse Rate [ From Monitor] Respiratory 25 H 20 Rate Respiratory Rate [Anterior Bilateral Throughout] Blood Pressure 140/87 140/87 140/87 O2 Sat by Pulse 98 97 Oximetry 12/13/16 12/13/16 12/13/16 10:38 10:46 11:00 Temperature Pulse Rate 115 H 124 H 103 H Pulse Rate [ Anterior Bilateral Throughout] Pulse Rate [ From Monitor] Respiratory 22 21 Rate Respiratory Rate [Anterior Bilateral Throughout] Blood Pressure 140/87 140/87 134/78 O2 Sat by Pulse 98 97 Oximetry 12/13/16 12/13/16 12/13/16 11:16 11:30 11:46 Temperature Pulse Rate 96 H 98 H 101 H Pulse Rate [ Anterior Bilateral Throughout] Pulse Rate [ From Monitor] Respiratory 11 L 21 17 Rate Respiratory Rate [Anterior Bilateral Throughout] Blood Pressure 134/78 134/78 134/78 O2 Sat by Pulse 99 99 98 Oximetry 12/13/16 12:00 Temperature 103 F H Pulse Rate Pulse Rate [ Anterior Bilateral Throughout] Pulse Rate [ 101 H From Monitor] Respiratory 22 Rate Respiratory Rate [Anterior Bilateral Throughout] Blood Pressure O2 Sat by Pulse 98 Oximetry Constitutional: no acute distress, asleep Eyes: non-icteric ENT: oropharynx moist Neck: supple, no lymphadenopathy, no JVD Effort: normal Ascultation: Bilateral: diminished breath sounds Cardiovascular: regular rate and rhythm Gastrointestinal: normoactive bowel sounds, soft, non-tender, non-distended Integumentary: normal Extremities: no cyanosis, no edema Neurologic: non-focal exam, pupils equal and round, unable to assess CBC and BMP: 12/11/16 08:29 12/11/16 16:12 ABG, PT/INR, D-dimer: ABG POC ABG pH 7.500 (7.35-7.45) H 12/12/16 10:12 POC ABG pCO2 41.9 (35-45) 12/12/16 10:12 POC ABG pO2 87 (80-105) 12/12/16 10:12 POC ABG HCO3 32.7 12/12/16 10:12 POC ABG Total CO2 34 12/12/16 10:12 POC ABG O2 Sat 97 12/12/16 10:12 PT/INR, D-dimer PT 14.0 Sec. (12.2-14.9) 12/06/16 16:07 INR 1.09 (0.87-1.13) 12/06/16 16:07 Abnormal lab findings: Abnormal Labs 12/07/16 12/07/16 12/07/16 00:35 05:30 05:30 RDW 13.0 L Plt Count 93 L [place] % (Auto) 11.2 H [place] # 1.1 H Seg Neutrophils % 71.3 H POC ABG pH POC ABG pO2 BUN Creatinine 0.6 L Glucose 168 H POC Glucose Calcium 7.8 L Direct Bilirubin 0.7 H Total Creatine Kinase 343 H C-Reactive Protein Albumin 2.6 L 12/07/16 12/07/16 12/07/16 06:58 16:41 18:30 RDW Plt Count [place] % (Auto) [place] # Seg Neutrophils % POC ABG pH POC ABG pO2 BUN Creatinine Glucose POC Glucose 175 H Calcium Direct Bilirubin Total Creatine Kinase 242 H C-Reactive Protein 7.70 H Albumin 12/09/16 12/10/16 12/10/16 11:58 06:05 12:24 RDW Plt Count [place] % (Auto) [place] # Seg Neutrophils % POC ABG pH 7.485 H POC ABG pO2 BUN Creatinine Glucose POC Glucose 141 H 183 H Calcium Direct Bilirubin Total Creatine Kinase C-Reactive Protein Albumin 12/10/16 12/10/16 12/11/16 17:47 23:21 06:10 RDW Plt Count [place] % (Auto) [place] # Seg Neutrophils % POC ABG pH POC ABG pO2 BUN Creatinine Glucose POC Glucose 176 H 240 H 252 H Calcium Direct Bilirubin Total Creatine Kinase C-Reactive Protein Albumin 12/11/16 12/11/16 12/11/16 08:29 09:14 11:37 RDW 13.1 L Plt Count [place] % (Auto) [place] # Seg Neutrophils % POC ABG pH POC ABG pO2 BUN Creatinine Glucose POC Glucose 253 H 284 H Calcium Direct Bilirubin Total Creatine Kinase C-Reactive Protein Albumin 12/11/16 12/11/16 12/11/16 16:12 17:54 23:35 RDW Plt Count [place] % (Auto) [place] # Seg Neutrophils % POC ABG pH POC ABG pO2 BUN 37 H Creatinine Glucose 258 H POC Glucose 227 H 264 H Calcium 8.3 L Direct Bilirubin Total Creatine Kinase C-Reactive Protein Albumin 2.6 L 12/12/16 12/12/16 12/12/16 04:37 06:06 10:12 RDW Plt Count [place] % (Auto) [place] # Seg Neutrophils % POC ABG pH 7.500 H POC ABG pO2 69 L BUN Creatinine Glucose POC Glucose 288 H Calcium Direct Bilirubin Total Creatine Kinase C-Reactive Protein Albumin 12/12/16 12/12/16 12/12/16 13:08 17:46 23:31 RDW Plt Count [place] % (Auto) [place] # Seg Neutrophils % POC ABG pH POC ABG pO2 BUN Creatinine Glucose POC Glucose 215 H 234 H 241 H Calcium Direct Bilirubin Total Creatine Kinase C-Reactive Protein Albumin 12/13/16 05:38 RDW Plt Count [place] % (Auto) [place] # Seg Neutrophils % POC ABG pH POC ABG pO2 BUN Creatinine Glucose POC Glucose 215 H Calcium Direct Bilirubin Total Creatine Kinase C-Reactive Protein Albumin Allied health notes reviewed: RT
[2016-12-13] MEDS: ZOCOR PO SCH (21:54)
[2016-12-13] MEDS: LOVENOX SUB-Q SCH (21:57)
--- NOTE | 2016-12-13 23:04 | Progress Note ---
Assessment and Plan - Patient Problems (1) Cardiomyopathy Current Visit: Yes Status: Acute (2) CAD (coronary artery disease) Current Visit: Yes Status: Acute Qualifiers: Coronary Disease-Associated Artery/Lesion type: C [place] vs. transplanted heart: N Associated angina: A (3) Altered mental status Current Visit: Yes Status: Acute Qualifiers: Altered mental status type: A Coma depth: C Coma timing: C Subjective Date of service: 12/13/16 Principal diagnosis: Acute hypoxemic respiratory failure, shock Interval history: disoriented Objective Vital Signs Temp Pulse Pulse Pulse Resp Resp BP 12/13/16 21:53 114 H 118/70 12/13/16 20:59 112 H 18 12/13/16 20:45 109 H 16 12/13/16 20:43 12/13/16 20:00 115 H 111 H 18 117/72 12/13/16 19:50 101.7 F H 12/13/16 19:00 115 H 25 H 135/84 12/13/16 18:30 111 H 23 114/72 12/13/16 18:00 109 H 22 123/72 12/13/16 17:30 112 H 20 114/72 12/13/16 17:00 107 H 19 114/72 12/13/16 16:30 107 H 15 119/71 12/13/16 16:00 100.3 F H 108 H 105 H 13 119/71 12/13/16 15:30 109 H 15 132/74 12/13/16 15:00 109 H 17 132/74 12/13/16 14:30 113 H 18 120/71 12/13/16 14:25 107 H 15 12/13/16 14:00 107 H 15 120/71 12/13/16 13:30 108 H 25 H 122/76 12/13/16 13:00 110 H 14 122/76 12/13/16 12:30 104 H 23 140/77 12/13/16 12:00 103 F H 100 H 101 H 21 140/77 12/13/16 11:46 101 H 17 134/78 12/13/16 11:30 98 H 21 134/78 12/13/16 11:16 96 H 11 L 134/78 12/13/16 11:00 103 H 21 134/78 12/13/16 10:46 124 H 22 140/87 12/13/16 10:38 115 H 140/87 12/13/16 10:37 115 H 140/87 12/13/16 10:30 112 H 20 140/87 12/13/16 10:16 119 H 25 H 140/87 12/13/16 10:00 102 H 24 140/87 12/13/16 09:46 114 H 18 145/90 12/13/16 09:30 114 H 22 145/90 12/13/16 09:24 12/13/16 09:16 114 H 18 138/91 12/13/16 09:00 112 H 20 138/91 12/13/16 08:46 108 H 13 142/74 12/13/16 08:43 105 H 26 H 12/13/16 08:39 109 H 145/74 12/13/16 08:30 102 H 22 145/74 12/13/16 08:21 99 H 20 12/13/16 08:15 98 H 19 134/82 12/13/16 08:00 101.9 F H 99 H 102 H 21 143/81 12/13/16 07:45 102 H 15 138/74 12/13/16 07:30 102 H 22 130/79 12/13/16 07:15 105 H 18 142/88 12/13/16 07:00 105 H 18 146/78 12/13/16 06:45 93 H 18 139/80 12/13/16 06:30 95 H 20 134/75 12/13/16 06:15 99 H 21 131/75 12/13/16 06:00 106 H 22 132/75 12/13/16 05:45 100 H 24 128/74 12/13/16 05:30 106 H 17 142/78 12/13/16 05:15 104 H 22 139/83 12/13/16 05:00 108 H 22 124/77 12/13/16 04:46 113 H 16 133/66 12/13/16 04:30 107 H 30 H 129/76 12/13/16 04:15 102 H 22 133/77 12/13/16 04:00 99 H 23 139/79 12/13/16 03:45 92 H 99 H 21 20 135/78 12/13/16 03:30 97 H 97 H 24 23 154/99 12/13/16 03:15 100 H 22 139/76 03/04/17 03:00 100 H 20 130/83 12/13/16 02:45 101 H 15 133/84 12/13/16 02:30 93 H 18 141/79 12/13/16 02:15 91 H 25 H 142/76 12/13/16 02:00 98.2 F 94 H 15 145/82 12/13/16 01:45 96 H 29 H 145/76 12/13/16 01:30 96 H 26 H 133/79 12/13/16 01:15 95 H 21 136/78 12/13/16 01:00 98 H 21 142/76 12/13/16 00:45 94 H 15 145/82 12/13/16 00:30 97 H 19 138/82 12/13/16 00:15 95 H 16 129/79 12/13/16 00:00 97 H 21 133/76 12/12/16 23:45 96 H 18 139/79 12/12/16 23:30 98 H 19 131/71 12/12/16 23:15 97 H 18 131/75 Pulse Ox 12/13/16 21:53 12/13/16 20:59 12/13/16 20:45 12/13/16 20:43 98 12/13/16 20:00 96 12/13/16 19:50 12/13/16 19:00 97 12/13/16 18:30 98 12/13/16 18:00 97 12/13/16 17:30 97 12/13/16 17:00 98 12/13/16 16:30 99 12/13/16 16:00 98 12/13/16 15:30 98 12/13/16 15:00 98 12/13/16 14:30 97 12/13/16 14:25 12/13/16 14:00 97 12/13/16 13:30 98 12/13/16 13:00 97 12/13/16 12:30 99 12/13/16 12:00 98 12/13/16 11:46 98 12/13/16 11:30 99 12/13/16 11:16 99 12/13/16 11:00 97 12/13/16 10:46 98 12/13/16 10:38 12/13/16 10:37 12/13/16 10:30 97 12/13/16 10:16 98 12/13/16 10:00 93 12/13/16 09:46 100 12/13/16 09:30 98 12/13/16 09:24 97 12/13/16 09:16 98 12/13/16 09:00 97 12/13/16 08:46 95 12/13/16 08:43 12/13/16 08:39 99 12/13/16 08:30 98 12/13/16 08:21 12/13/16 08:15 98 12/13/16 08:00 99 12/13/16 07:45 97 12/13/16 07:30 98 12/13/16 07:15 97 12/13/16 07:00 99 12/13/16 06:45 12/13/16 06:30 98 12/13/16 06:15 97 12/13/16 06:00 97 12/13/16 05:45 98 12/13/16 05:30 97 12/13/16 05:15 98 12/13/16 05:00 97 12/13/16 04:46 99 12/13/16 04:30 12/13/16 04:15 98 12/13/16 04:00 98 12/13/16 03:45 98 12/13/16 03:30 97 12/13/16 03:15 98 12/13/16 03:00 98 12/13/16 02:45 97 12/13/16 02:30 99 12/13/16 02:15 97 12/13/16 02:00 99 12/13/16 01:45 97 12/13/16 01:30 98 12/13/16 01:15 98 12/13/16 01:00 96 12/13/16 00:45 97 12/13/16 00:30 97 12/13/16 00:15 98 12/13/16 00:00 98 12/12/16 23:45 98 12/12/16 23:30 97 12/12/16 23:15 96 - Physical Examination General: Other (disoriented,,nonverbal) HEENT: Positive: PERRL Neck: Positive: trachea midline Cardiac: Positive: Reg Rate and Rhythm, Tachycardia Lungs: Positive: Rhonchi (mild) Abdomen: Positive: Soft, Active Bowel Sounds Extremities: Absent: edema - Allied health notes Allied health notes reviewed: RT
[2016-12-14] MEDS: DUONEB 0.5 MG-3 MG/3 ML SOLN IH SCH ×4 (01:25→20:30)
[2016-12-14] MEDS: TYLENOL FEEDTUBE PRN ×2 (06:35→12:05)
[2016-12-14] MEDS: HALDOL IV PRN (08:37)
--- NOTE | 2016-12-14 08:45 | Progress Note ---
Assessment and Plan - Patient Problems (1) Cardiomyopathy Current Visit: Yes Status: Acute (2) CAD (coronary artery disease) Current Visit: Yes Status: Acute Qualifiers: Coronary Disease-Associated Artery/Lesion type: C [place] vs. transplanted heart: N Associated angina: A (3) Altered mental status Current Visit: Yes Status: Acute Qualifiers: Altered mental status type: A Coma depth: C Coma timing: C Subjective Date of service: 12/14/16 Principal diagnosis: Acute hypoxemic respiratory failure, shock Interval history: disoriented ,nonverbal,,o2 mask Objective Vital Signs Temp Pulse Pulse Pulse Resp Resp BP 12/14/16 08:41 109 H 28 H 12/14/16 08:24 110 H 110 H 31 H 31 H 131/74 12/14/16 06:00 105 H 23 125/74 12/14/16 05:00 103 H 20 127/82 12/14/16 04:00 100.7 F H 108 H 102 H 25 H 130/78 12/14/16 03:00 99 H 22 113/70 12/14/16 02:00 105 H 26 H 133/80 12/14/16 01:35 110 H 29 H 12/14/16 01:23 107 H 31 H 12/14/16 01:00 103 H 31 H 120/78 12/14/16 00:45 107 H 31 H 113/72 12/14/16 00:35 101.7 F H 12/14/16 00:13 103 H 20 113/72 12/14/16 00:00 102 H 107 H 17 113/72 12/13/16 23:00 101.7 F H 103 H 18 107/64 12/13/16 22:00 113 H 21 109/62 12/13/16 21:53 114 H 118/70 12/13/16 21:00 117 H 34 H 118/70 12/13/16 20:59 112 H 18 12/13/16 20:45 109 H 16 12/13/16 20:43 12/13/16 20:00 115 H 111 H 18 117/72 12/13/16 19:50 101.7 F H 12/13/16 19:00 115 H 25 H 135/84 12/13/16 18:30 111 H 23 114/72 12/13/16 18:00 109 H 22 123/72 12/13/16 17:30 112 H 20 114/72 12/13/16 17:00 107 H 19 114/72 12/13/16 16:30 107 H 15 119/71 12/13/16 16:00 100.3 F H 108 H 105 H 13 119/71 12/13/16 15:30 109 H 15 132/74 12/13/16 15:00 109 H 17 132/74 12/13/16 14:30 113 H 18 120/71 12/13/16 14:25 107 H 15 12/13/16 14:00 107 H 15 120/71 12/13/16 13:30 108 H 25 H 122/76 12/13/16 13:00 110 H 14 122/76 12/13/16 12:30 104 H 23 140/77 12/13/16 12:00 103 F H 100 H 101 H 21 140/77 12/13/16 11:46 101 H 17 134/78 12/13/16 11:30 98 H 21 134/78 12/13/16 11:16 96 H 11 L 134/78 12/13/16 11:00 103 H 21 134/78 12/13/16 10:46 124 H 22 140/87 12/13/16 10:38 115 H 140/87 12/13/16 10:37 115 H 140/87 12/13/16 10:30 112 H 20 140/87 12/13/16 10:16 119 H 25 H 140/87 12/13/16 10:00 102 H 24 140/87 12/13/16 09:46 114 H 18 145/90 12/13/16 09:30 114 H 22 145/90 12/13/16 09:24 12/13/16 09:16 114 H 18 138/91 12/13/16 09:00 112 H 20 138/91 12/13/16 08:46 108 H 13 142/74 Pulse Ox 12/14/16 08:41 12/14/16 08:24 98 12/14/16 06:00 12/14/16 05:00 98 12/14/16 04:00 98 12/14/16 03:00 12/14/16 02:00 98 12/14/16 01:35 12/14/16 01:23 12/14/16 01:00 96 12/14/16 00:45 98 12/14/16 00:35 12/14/16 00:13 97 12/14/16 00:00 96 12/13/16 23:00 98 12/13/16 22:00 97 12/13/16 21:53 12/13/16 21:00 95 12/13/16 20:59 12/13/16 20:45 12/13/16 20:43 98 12/13/16 20:00 96 12/13/16 19:50 12/13/16 19:00 97 12/13/16 18:30 98 12/13/16 18:00 97 12/13/16 17:30 97 12/13/16 17:00 98 12/13/16 16:30 99 12/13/16 16:00 98 12/13/16 15:30 98 12/13/16 15:00 98 12/13/16 14:30 97 12/13/16 14:25 12/13/16 14:00 97 12/13/16 13:30 98 12/13/16 13:00 97 12/13/16 12:30 99 12/13/16 12:00 98 12/13/16 11:46 98 12/13/16 11:30 99 12/13/16 11:16 99 12/13/16 11:00 97 12/13/16 10:46 98 12/13/16 10:38 12/13/16 10:37 12/13/16 10:30 97 12/13/16 10:16 98 12/13/16 10:00 93 12/13/16 09:46 100 12/13/16 09:30 98 12/13/16 09:24 97 12/13/16 09:16 98 12/13/16 09:00 97 12/13/16 08:46 95 - Physical Examination General: Other (disoriented,,nonverbal) HEENT: Positive: PERRL Neck: Positive: trachea midline Cardiac: Positive: Reg Rate and Rhythm, Tachycardia Lungs: Positive: Rhonchi Abdomen: Positive: Soft, Active Bowel Sounds Extremities: Absent: edema - Allied health notes Allied health notes reviewed: RT
[2016-12-14] MEDS: LASIX IV SCH (10:15)
[2016-12-14] MEDS: LOPRESSOR PO SCH ×3 (10:15→22:00)
[2016-12-14] MEDS: ZESTRIL PO SCH (10:16)
[2016-12-14] MEDS: BABY ASPIRIN PO SCH (10:16)
[2016-12-14] MEDS: PROTONIX FEEDTUBE SCH (10:16)
[2016-12-14] MEDS: LEVAQUIN 750MG/150ML 750 MG/150 ML BAG IV SCH (10:18)
[2016-12-14] MEDS ORDERED: ATIVAN IV ONE (12:48)
--- NOTE | 2016-12-14 15:16 | Progress Note ---
Assessment and Plan - Patient Problems (1) Septic shock Current Visit: Yes Status: Acute (2) Respiratory failure Current Visit: Yes Status: Acute Qualifiers: Chronicity: C Respiratory failure complication: R (3) Altered mental status Current Visit: Yes Status: Acute Qualifiers: Altered mental status type: A Coma depth: C Coma timing: C (4) Hypotension Current Visit: No Status: Acute Qualifiers: Hypotension type: H Trimester: T (5) Chronic heart failure Current Visit: No Status: Acute Qualifiers: Heart failure type: H Subjective Principal diagnosis: Acute hypoxemic respiratory failure, shock Interval history: 61-year-old male patient with significant past medical history of ischemic cardiomyopathy with ejection fraction of 10-15%, hypertension, dyslipidemia type 2 diabetes mellitus ongoing tobacco use hypertension history of metabolic encephalopathy during last admission was brought to the emergency room with altered level of consciousness and confusion, patient was found at home by his ex- with altered level of consciousness. Patient was unable to protect airway , and patient was promptly intubated and placed on ventilatory support. Remains critically ill on mechanical ventilatory support. Weaned off vasopressor support. On going high grade intermittent fevers, without leukocytosis 1. Sepsis with shock continue sepsis protocol, continue with antibiotics, With on going fevers plan to change levofloxacin to Zosyn. Was re-cultured overnight. Will follow up on cultures. Evaluate for non-infectious causes of fever in the ICU- Continue to monitor closely. Get ID consult 2. Pneumonia sputum cultures positive for strep pneumoniae, all blood cultures- NGTD. 3. Acute respiratory failure Extubated Nocturnal and PRN NIPPV support 4. CHF- HFrEF Per Cardiology 5. Acute toxic encephalopathy Most likely due to sepsis, toxic, metabolic causes. Get Neurology consult Objective Vital Signs - 12hr 12/14/16 12/14/16 12/14/16 04:00 05:00 06:00 Temperature 100.7 F H Pulse Rate 108 H 103 H 105 H Pulse Rate [ Anterior Bilateral Throughout] Pulse Rate [ 102 H From Monitor] Respiratory 25 H 20 23 Rate Respiratory Rate [Anterior Bilateral Throughout] Blood Pressure 130/78 127/82 125/74 O2 Sat by Pulse 98 98 Oximetry 12/14/16 12/14/16 12/14/16 07:00 08:00 08:24 Temperature 102.4 F H Pulse Rate 110 H 110 H 110 H Pulse Rate [ 110 H Anterior Bilateral Throughout] Pulse Rate [ From Monitor] Respiratory 30 H 29 H 31 H Rate Respiratory 31 H Rate [Anterior Bilateral Throughout] Blood Pressure 127/79 131/74 131/74 O2 Sat by Pulse 97 95 98 Oximetry 12/14/16 12/14/16 12/14/16 08:41 09:00 10:00 Temperature Pulse Rate 106 H 116 H Pulse Rate [ 109 H Anterior Bilateral Throughout] Pulse Rate [ From Monitor] Respiratory 25 H 24 Rate Respiratory 28 H Rate [Anterior Bilateral Throughout] Blood Pressure 125/77 133/79 O2 Sat by Pulse 95 Oximetry 12/14/16 12/14/16 12/14/16 11:00 12:00 14:22 Temperature Pulse Rate 100 H 98 H 99 H Pulse Rate [ 99 H Anterior Bilateral Throughout] Pulse Rate [ From Monitor] Respiratory 21 15 35 H Rate Respiratory 35 H Rate [Anterior Bilateral Throughout] Blood Pressure 122/81 116/66 104/65 O2 Sat by Pulse 98 97 98 Oximetry 12/14/16 14:40 Temperature Pulse Rate Pulse Rate [ 105 H Anterior Bilateral Throughout] Pulse Rate [ From Monitor] Respiratory Rate Respiratory 29 H Rate [Anterior Bilateral Throughout] Blood Pressure O2 Sat by Pulse 98 Oximetry Constitutional: no acute distress, asleep Eyes: non-icteric ENT: oropharynx moist Neck: supple, no lymphadenopathy, no JVD Effort: normal Ascultation: Bilateral: diminished breath sounds Cardiovascular: regular rate and rhythm Gastrointestinal: normoactive bowel sounds, soft, non-tender, non-distended Integumentary: normal Extremities: no cyanosis, no edema Neurologic: non-focal exam, pupils equal and round, unable to assess CBC and BMP: 12/11/16 08:29 12/11/16 16:12 ABG, PT/INR, D-dimer: ABG POC ABG pH 7.500 (7.35-7.45) H 12/12/16 10:12 POC ABG pCO2 41.9 (35-45) 12/12/16 10:12 POC ABG pO2 87 (80-105) 12/12/16 10:12 POC ABG HCO3 32.7 12/12/16 10:12 POC ABG Total CO2 34 12/12/16 10:12 POC ABG O2 Sat 97 12/12/16 10:12 PT/INR, D-dimer PT 14.0 Sec. (12.2-14.9) 12/06/16 16:07 INR 1.09 (0.87-1.13) 12/06/16 16:07 Abnormal lab findings: Abnormal Labs 12/07/16 12/07/16 12/07/16 00:35 05:30 05:30 RDW 13.0 L Plt Count 93 L Roosevelt % (Auto) 11.2 H Roosevelt # 1.1 H Seg Neutrophils % 71.3 H POC ABG pH POC ABG pO2 BUN Creatinine 0.6 L Glucose 168 H POC Glucose Calcium 7.8 L Direct Bilirubin 0.7 H Total Creatine Kinase 343 H C-Reactive Protein Albumin 2.6 L 12/07/16 12/07/16 12/07/16 06:58 16:41 18:30 RDW Plt Count Roosevelt % (Auto) Roosevelt # Seg Neutrophils % POC ABG pH POC ABG pO2 BUN Creatinine Glucose POC Glucose 175 H Calcium Direct Bilirubin Total Creatine Kinase 242 H C-Reactive Protein 7.70 H Albumin 12/09/16 12/10/16 12/10/16 11:58 06:05 12:24 RDW Plt Count Roosevelt % (Auto) Roosevelt # Seg Neutrophils % POC ABG pH 7.485 H POC ABG pO2 BUN Creatinine Glucose POC Glucose 141 H 183 H Calcium Direct Bilirubin Total Creatine Kinase C-Reactive Protein Albumin 12/10/16 12/10/16 12/11/16 17:47 23:21 06:10 RDW Plt Count Roosevelt % (Auto) Roosevelt # Seg Neutrophils % POC ABG pH POC ABG pO2 BUN Creatinine Glucose POC Glucose 176 H 240 H 252 H Calcium Direct Bilirubin Total Creatine Kinase C-Reactive Protein Albumin 12/11/16 12/11/16 12/11/16 08:29 09:14 11:37 RDW 13.1 L Plt Count Roosevelt % (Auto) Roosevelt # Seg Neutrophils % POC ABG pH POC ABG pO2 BUN Creatinine Glucose POC Glucose 253 H 284 H Calcium Direct Bilirubin Total Creatine Kinase C-Reactive Protein Albumin 12/11/16 12/11/16 12/11/16 16:12 17:54 23:35 RDW Plt Count Roosevelt % (Auto) Roosevelt # Seg Neutrophils % POC ABG pH POC ABG pO2 BUN 37 H Creatinine Glucose 258 H POC Glucose 227 H 264 H Calcium 8.3 L Direct Bilirubin Total Creatine Kinase C-Reactive Protein Albumin 2.6 L 12/12/16 12/12/1612/12/17 04:37 06:06 10:12 RDW Plt Count Roosevelt % (Auto) Roosevelt # Seg Neutrophils % POC ABG pH 7.500 H POC ABG pO2 69 L BUN Creatinine Glucose POC Glucose 288 H Calcium Direct Bilirubin Total Creatine Kinase C-Reactive Protein Albumin 12/12/16 12/12/16 12/12/16 13:08 17:46 23:31 RDW Plt Count Roosevelt % (Auto) Roosevelt # Seg Neutrophils % POC ABG pH POC ABG pO2 BUN Creatinine Glucose POC Glucose 215 H 234 H 241 H Calcium Direct Bilirubin Total Creatine Kinase C-Reactive Protein Albumin 12/13/16 12/13/16 12/13/16 05:38 11:44 17:32 RDW Plt Count Roosevelt % (Auto) Roosevelt # Seg Neutrophils % POC ABG pH POC ABG pO2 BUN Creatinine Glucose POC Glucose 215 H 237 H 215 H Calcium Direct Bilirubin Total Creatine Kinase C-Reactive Protein Albumin 12/14/16 12/14/16 12/14/16 00:22 05:40 12:03 RDW Plt Count Roosevelt % (Auto) Roosevelt # Seg Neutrophils % POC ABG pH POC ABG pO2 BUN Creatinine Glucose POC Glucose 268 H 301 H 312 H Calcium Direct Bilirubin Total Creatine Kinase C-Reactive Protein Albumin Allied health notes reviewed: RT
[2016-12-14] MEDS: MOTRIN PO PRN (15:55)
--- NOTE | 2016-12-14 17:22 | Consultation ---
History of Present Illness - Reason for Consult Consult date: 12/14/16 sepsis Requesting physician: DEE OCONNELL - History of Present Illness 61-year-old male patient with significant past medical history of ischemic cardiomyopathy with ejection fraction of 10-15%, hypertension, dyslipidemia type 2 diabetes mellitus ongoing tobacco use hypertension history of metabolic encephalopathy during last admission was brought to the emergency room with altered level of consciousness and confusion, patient was found at home by his ex- with altered level of consciousness.Patient was unable to protect airway , and patient was promptly intubated and placed on ventilatory support. He was found to have pneumonia. IV antibiotics was started including initially ceftriaxone and zithromax, then levaquin. He continues to have fever. Initial blood culture grew micrococcus but subsequent repeat culture was negative. Sputum culture grew strep pneumonia. Infectious disease called because of sepsis. Patient seen at bedside. He is unable to provide history. PHYSICAL EXAM Vital signs - temp 102 chest - mild b/l rhonchi cvs - s1s2 abd - bs+ LABS See lab section ASSESSMENT 1. Sepsis 2. Pneumonia 3. Acute respiratory failure 4. Encephalopathy 5. CHF RECOMMENDATION 1. Will add clindamycin and vancomycin 2. lactate and d dimer 3. cbc/bmp in am 4. will follow. Past History Past Medical History: CAD, diabetes, heart failure (systolic dysfunction ejection fraction 10-15%), hypertension Past Surgical History: PTCA Social history: smoking Family history: CAD, hypertension Medications and Allergies Allergies Allergy/AdvReac Type Severity Reaction Status Date / Time No Known Allergies Allergy Verified 08/09/14 20:15 Home Medications Medication Instructions Recorded Confirmed Last Taken Type Aspirin [Aspirin TAB] 81 mg PO QDAY #30 tablet 01/28/15 12/06/16 1 Day Ago Rx Furosemide [Lasix TAB] 20 mg PO DAILY #30 tablet 01/28/15 12/06/16 1 Day Ago Rx ISOSORBIDE MONOnitrate [Imdur ER] 30 mg PO DAILY #30 tablet 01/28/15 12/06/16 1 Day Ago Rx Lisinopril [Zestril] 2.5 mg PO QDAY #30 tablet 01/28/15 12/06/16 1 Day Ago Rx Metoprolol [Lopressor TAB] 12.5 mg PO BID #60 tablet 01/28/15 12/06/16 1 Day Ago Rx Pantoprazole [Protonix TAB] 20 mg PO BID #60 tablet. 01/28/15 12/06/16 1 Day Ago Rx Simvastatin [Zocor TAB] 20 mg PO QHS #30 tablet 01/28/15 12/06/16 1 Day Ago Rx Magnesium Oxide [Mag-Ox] 400 mg PO QDAY #5 tablet 02/02/16 12/06/16 1 Day Ago Rx Active Meds: Active Medications Acetaminophen (Tylenol) 650 mg AL Q4H PRN PRN Reason: Pain, Mild (1-3) Last Admin: 12/12/16 18:08 Dose: 650 mg Acetaminophen (Tylenol) 650 mg FEEDTUBE Q6H PRN PRN Reason: Fever >101 Last Admin: 12/14/16 12:05 Dose: 650 mg Albuterol/Ipratropium (Duoneb 0.5 Mg-3 Mg/3 Ml Soln) 1 ampul IH Q6HRT [facility] Last Admin: 12/14/16 14:27 Dose: 1 ampul Lipase/Protease/Amylase (Pancreerinn Ball 10,500 Unit) 1 each FEEDTUBE PRN PRN PRN Reason: For Clogged Feeding Tube Aspirin (Baby Aspirin) 81 mg PO QDAY [facility] Last Admin: 12/14/16 10:16 Dose: 81 mg Enoxaparin Sodium (Lovenox) 40 mg SUB-Q QDAY@2200 [facility] Last Admin: 12/13/16 21:57 Dose: 40 mg Furosemide (Lasix) 20 mg IV QDAY [facility] Last Admin: 12/14/16 10:15 Dose: 20 mg Haloperidol Lactate (Haldol) 5 mg IV Q6H PRN PRN Reason: Agitation Last Admin: 12/14/16 08:37 Dose: 5 mg Hydralazine HCl (Apresoline) 10 mg IV Q4HR PRN PRN Reason: Hypertension MORE THAN 160/90 Hydrophilic Ointment (Vaseline Lip Therapy) 1 applic TP Q2HR PRN PRN Reason: Dry Lips Last Admin: 12/07/16 12:44 Dose: 1 applic Levofloxacin/Dextrose (Levaquin 750mg/150ml) 750 mg in 150 mls @ 100 mls/hr IV Q24HR [facility] Last Admin: 12/14/16 10:18 Dose: 100 mls/hr Dextrose/Sodium Chloride (D5/0.45ns) 1,000 mls @ 50 mls/hr IV DIRECT [facility] Last Admin: 12/13/16 05:52 Dose: 50 mls/hr Ibuprofen (Motrin) 600 mg PO Q6H PRN PRN Reason: Fever >101 Last Admin: 12/14/16 15:55 Dose: 600 mg Insulin Detemir (Levemir) 15 units SUB-Q QAMDIAB [facility] Insulin Human Regular (Novolin R) 0 units SUB-Q Q6HR RENITA PRN Reason: Protocol Last Admin: 12/14/16 12:46 Dose: 8 units Lisinopril (Zestril) 10 mg PO QDAY [facility] Last Admin: 12/14/16 10:16 Dose: 10 mg Metoprolol Tartrate (Lopressor) 25 mg PO BID [facility] Last Admin: 12/14/16 10:15 Dose: 25 mg Multi-Ingred Cream/Lotion/Oil/Oint (Artificial Tears Ophth Oint) 1 applic OU Q4HR PRN PRN Reason: Dry Eye(s) Pantoprazole (Protonix) 40 mg FEEDTUBE DAILY [facility] Last Admin: 12/14/16 10:16 Dose: 40 mg Quetiapine Fumarate (Seroquel) 50 mg PO BID [facility] Last Admin: 12/14/16 10:16 Dose: 50 mg Simple Syrup (Simple Syrup) 15 ml FEEDTUBE PRN PRN PRN Reason: Hypoglycemia Simple Syrup (Simple Syrup) 30 ml FEEDTUBE PRN PRN PRN Reason: Hypoglycemia Simvastatin (Zocor) 20 mg PO QHS [facility] Last Admin: 12/13/16 21:54 Dose: 20 mg Sodium Bicarbonate (Sodium Bicarbonate) 325 mg FEEDTUBE PRN PRN PRN Reason: For Clogged Feeding Tube Physical Examination - Constitutional Vitals: Vital Signs Temp Pulse Resp BP Pulse Ox 102.1 F H 110 H 28 H 94/58 97 12/14/16 16:00 12/14/16 17:00 12/14/16 17:00 12/14/16 17:00 12/14/16 16:00 Temperature -Last 24 Hours Temperature 102.1 F Temperature 102.5 F Temperature 102.4 F Temperature 100.7 F Temperature 101.7 F Temperature 101.7 F Temperature 101.7 F Results - Labs CBC & Chem 7: 12/11/16 08:29 12/11/16 16:12 Labs: Abnormal lab results 12/13/16 12/14/16 12/14/16 Range/Units 17:32 00:22 05:40 POC Glucose 215 H 268 H 301 H (70-105) 12/14/16 Range/Units 12:03 POC Glucose 312 H (70-105)
[2016-12-14] MEDS: VANCOMYCIN/NS 1 GM/250 ML 1 GM/250 ML BAG IV SCH (18:36)
[2016-12-14 18:52] LABS: Anion Gap 19 mmol/L; BUN/Creatinine Ratio 41.66; Blood Urea Nitrogen 50 mg/dL (9-20); Calcium 8.5 mg/dL (8.4-10.2); Carbon Dioxide 26 mmol/L (22-30); Chloride 109.1 mmol/L (98-107); Glucose 261 mg/dL (75-100); Potassium 3.8 mmol/L (3.6-5.0); Sodium 150 mmol/L (137-145)
[2016-12-14 18:55] LABS: Eosinophils % (Auto) 0.8 % (0.0-4.3); Hematocrit 38.7 % (35.5-45.6); Hemoglobin 12.9 gm/dl (11.8-15.2); Mean Corpuscular HGB Conc 33 % (32-34); Mean Corpuscular Hemoglobin 30 pg (28-32); Mean Corpuscular Volume 90 fl (84-94); Platelet Count 229 K/mm3 (140-440); Red Blood Count 4.32 M/mm3 (3.65-5.03); Red Cell Distribution Width 12.9 % (13.2-15.2); White Blood Count 10.3 K/mm3 (4.5-11.0)
[2016-12-14] MEDS ORDERED: LEVEMIR SUB-Q ONE (19:00)
[2016-12-14] MEDS: LOVENOX SUB-Q SCH (21:59)
[2016-12-14] MEDS: ZOCOR PO SCH (22:00)
[2016-12-14] MEDS: CLEOCIN 600 MG/50 mL 600 MG/50 ML BAG IV SCH (22:00)
[2016-12-15] MEDS: DUONEB 0.5 MG-3 MG/3 ML SOLN IH SCH ×4 (01:46→20:27)
[2016-12-15] MEDS: VANCOMYCIN/NS 1 GM/250 ML 1 GM/250 ML BAG IV SCH ×3 (03:33→17:54)
[2016-12-15] MEDS: CLEOCIN 600 MG/50 mL 600 MG/50 ML BAG IV SCH ×3 (05:29→22:05)
[2016-12-15] MEDS: MOTRIN PO PRN ×2 (05:30→21:58)
[2016-12-15] MEDS ORDERED: LEVEMIR SUB-Q SCH (08:00)
--- NOTE | 2016-12-15 09:29 | Progress Note ---
Assessment and Plan Acute respiratory failure s/p extubation Sepsis Pneumonia Altered mental status Chronic systolic heart failure Ischemic cardiomyopathy Echo this admission demonstrates left ventricular ejection fraction 35%. Hx of CAD [facility] 2014: patent mid LAD stent, patent diagonal branch stent, patent mid obtuse marginal stent. Nonobstructive disease of the RCA. EF 30-35%. Recommend: Continue medical therapy for this underlying coronary artery disease and cardiomyopathy. Subjective Date of service: 12/15/16 Principal diagnosis: Acute hypoxemic respiratory failure, shock Interval history: Alert with eyes open with jerking movements of his head. Febrile this morning. Objective Vital Signs Temp Pulse Pulse Pulse Resp Resp BP 12/15/16 08:28 12/15/16 08:00 102.9 F H 114 H 18 12/15/16 07:50 114 H 18 12/15/16 06:00 106 H 18 110/62 12/15/16 05:00 112 H 22 102/64 12/15/16 04:42 102.4 F H 12/15/16 04:00 117 H 107 H 22 111/68 12/15/16 03:00 111 H 17 97/60 12/15/16 02:08 98 H 18 12/15/16 02:00 109 H 23 91/57 12/15/16 01:47 102 H 17 12/15/16 01:00 104 H 24 106/61 12/15/16 00:48 99.1 F 12/15/16 00:00 109 H 99 H 20 102/63 12/14/16 23:00 109 H 19 101/63 12/14/16 22:00 111 H 24 115/69 12/14/16 21:18 102.4 F H 12/14/16 21:07 110 H 28 H 102/64 12/14/16 21:00 112 H 21 111/69 12/14/16 20:41 99 H 22 12/14/16 20:33 12/14/16 20:32 110 H 25 H 12/14/16 20:00 109 H 109 H 21 108/65 12/14/16 19:01 110 H 17 105/64 12/14/16 19:00 112 H 16 105/64 12/14/16 18:42 101.7 F H 12/14/16 18:00 115 H 22 104/62 12/14/16 17:00 110 H 28 H 94/58 12/14/16 16:00 102.1 F H 106 H 19 101/68 12/14/16 15:00 100 H 16 95/59 12/14/16 14:40 105 H 29 H 12/14/16 14:22 99 H 99 H 35 H 35 H 104/65 12/14/16 14:00 95 H 18 104/65 12/14/16 13:00 95 H 23 112/64 12/14/16 12:00 102.5 F H 98 H 15 116/66 12/14/16 11:00 100 H 21 122/81 12/14/16 10:00 116 H 24 133/79 Pulse Ox 12/15/16 08:28 96 12/15/16 08:00 12/15/16 07:50 12/15/16 06:00 96 12/15/16 05:00 98 12/15/16 04:42 12/15/16 04:00 98 12/15/16 03:00 95 12/15/16 02:08 12/15/16 02:00 98 12/15/16 01:47 12/15/16 01:00 98 12/15/16 00:48 12/15/16 00:00 98 12/14/16 23:00 97 12/14/16 22:00 93 12/14/16 21:18 12/14/16 21:07 100 12/14/16 21:00 97 12/14/16 20:41 12/14/16 20:33 97 12/14/16 20:32 12/14/16 20:00 99 12/14/16 19:01 98 12/14/16 19:00 97 12/14/16 18:42 12/14/16 18:00 12/14/16 17:00 12/14/16 16:00 97 12/14/16 15:00 99 12/14/16 14:40 98 12/14/16 14:22 98 12/14/16 14:00 97 12/14/16 13:00 97 12/14/16 12:00 97 12/14/16 11:00 98 12/14/16 10:00 95 - Physical Examination General: Other (disoriented,,nonverbal) HEENT: Positive: PERRL Neck: Positive: trachea midline Cardiac: Positive: Tachycardia Extremities: Absent: edema - Labs and Meds CBC 12/14/16 Range/Units 18:03 WBC 10.3 (4.5-11.0) K/mm3 RBC 4.32 (3.65-5.03) M/mm3 Hgb 12.9 (11.8-15.2) gm/dl Hct 38.7 (35.5-45.6) % Plt Count 229 (140-440) K/mm3 Lymph # 1.8 (1.2-5.4) K/mm3 Nolan # 0.8 (0.0-0.8) K/mm3 Eos # 0.1 (0.0-0.4) K/mm3 Baso # 0.1 (0.0-0.1) K/mm3 Comprehensive Metabolic Panel 12/14/16 Range/Units 18:03 Sodium 150 H (137-145) mmol/L Potassium 3.8 (3.6-5.0) mmol/L Chloride 109.1 H (98-107) mmol/L Carbon Dioxide 26 (22-30) mmol/L BUN 50 H (9-20) mg/dL Creatinine 1.2 (0.8-1.5) mg/dL Glucose 261 H (75-100) mg/dL Calcium 8.5 (8.4-10.2) mg/dL - Allied health notes Allied health notes reviewed: RT
[2016-12-15] MEDS: LEVAQUIN 750MG/150ML 750 MG/150 ML BAG IV SCH (09:31)
[2016-12-15] MEDS: TYLENOL FEEDTUBE PRN (09:31)
[2016-12-15] MEDS: BABY ASPIRIN PO SCH (09:32)
[2016-12-15] MEDS: PROTONIX FEEDTUBE SCH (09:32)
[2016-12-15] MEDS: LASIX IV SCH (09:33)
[2016-12-15] MEDS: LOPRESSOR PO SCH ×2 (09:34→21:59)
[2016-12-15] MEDS: ZESTRIL PO SCH (09:35)
[2016-12-15] MEDS ORDERED: NEO-SYNEPHRINE 100 MG in NACL 0.9% 90 ML IV SCH (10:00)
--- NOTE | 2016-12-15 10:15 | Progress Note ---
Assessment and Plan - Patient Problems (1) Acute hypoxemic respiratory failure Current Visit: Yes Status: Acute Plan to address problem: - extubated - continue aspiration precautions - continue bronchodilators and pulmonary toilet - wean FiO2 for sats > 94% - continue prn & qhs BIPAP (2) Altered mental status Current Visit: Yes Status: Acute Qualifiers: Altered mental status type: A Coma depth: C Coma timing: C Plan to address problem: - seen by neurology - get EEG if none done this admission - prn sedation / benzo's (3) Cardiomyopathy Current Visit: Yes Status: Acute Plan to address problem: - despite CHF history he is likely volume dependent while with sepsis syndrome - agree with stopping diuresis - crystalloid bolus for MAP < 60mmHg - otherwise as per cardiology (4) Septic shock Current Visit: Yes Status: Acute Plan to address problem: - continue AB's per ID recs - r/o VTE re: fevers (dopplers negative but may benefit from CTA once more stable) - gentle volume resuscitation prn (5) Atypical chest pain Current Visit: No Status: Acute Plan to address problem: - per cardiology (6) Diabetes Current Visit: No Status: Chronic Qualifiers: Diabetes mellitus type: D Diabetes mellitus complication status: D Diabetes mellitus complication detail: D Diabetic retinopathy severity: D Proliferative retinopathy type: P Diabetes mellitus macular edema: D Diabetes mellitus [employer] insulin use: D Laterality: L Chronic kidney disease stage: C Plan to address problem: - continue SSI (7) Discharge planning issues Current Visit: Yes Status: Acute Plan to address problem: - LTAC evaluation is appropriate in short term as too unstable for telemetry at this point Subjective Date of service: 12/15/16 Principal diagnosis: Acute hypoxemic respiratory failure, shock Interval history: Seen and examined at bedside; 24 hour events reviewed; nursing and respiratory care staff consulted; no adverse overnight events reported to me; resting in bed ; on 3L NC with 98%O2 Sats; BP's running on low side but adequate MAP's; persistent tremors/jerks but seen by neurology; no emesis or overt aspiration Objective Vital Signs - 12hr 12/14/16 12/15/16 12/15/16 23:00 00:00 00:48 Temperature 99.1 F Pulse Rate 109 H 109 H Pulse Rate [ Anterior Bilateral Throughout] Pulse Rate [ 99 H From Monitor] Respiratory 19 20 Rate Respiratory Rate [Anterior Bilateral Throughout] Blood Pressure 101/63 102/63 O2 Sat by Pulse 97 98 Oximetry 12/15/16 12/15/16 12/15/16 01:00 01:47 02:00 Temperature Pulse Rate 104 H 109 H Pulse Rate [ 102 H Anterior Bilateral Throughout] Pulse Rate [ From Monitor] Respiratory 24 23 Rate Respiratory 17 Rate [Anterior Bilateral Throughout] Blood Pressure 106/61 91/57 O2 Sat by Pulse 98 98 Oximetry 12/15/16 12/15/16 12/15/16 02:08 03:00 04:00 Temperature Pulse Rate 111 H 117 H Pulse Rate [ 98 H Anterior Bilateral Throughout] Pulse Rate [ 107 H From Monitor] Respiratory 17 22 Rate Respiratory 18 Rate [Anterior Bilateral Throughout] Blood Pressure 97/60 111/68 O2 Sat by Pulse 95 98 Oximetry 12/15/16 12/15/16 12/15/16 04:42 05:00 06:00 Temperature 102.4 F H Pulse Rate 112 H 106 H Pulse Rate [ Anterior Bilateral Throughout] Pulse Rate [ From Monitor] Respiratory 22 18 Rate Respiratory Rate [Anterior Bilateral Throughout] Blood Pressure 102/64 110/62 O2 Sat by Pulse 98 96 Oximetry 12/15/16 12/15/16 12/15/16 07:50 08:00 08:28 Temperature 102.9 F H Pulse Rate Pulse Rate [ 114 H 114 H Anterior Bilateral Throughout] Pulse Rate [ From Monitor] Respiratory Rate Respiratory 18 18 Rate [Anterior Bilateral Throughout] Blood Pressure O2 Sat by Pulse 96 Oximetry 12/15/16 12/15/16 09:34 09:35 Temperature Pulse Rate 110 H 117 H Pulse Rate [ Anterior Bilateral Throughout] Pulse Rate [ From Monitor] Respiratory Rate Respiratory Rate [Anterior Bilateral Throughout] Blood Pressure 89/59 89/59 O2 Sat by Pulse Oximetry Constitutional: no acute distress, other (somnolent with intermittent jerking) Eyes: non-icteric ENT: oropharynx moist Neck: supple, no lymphadenopathy, no JVD Effort: normal Ascultation: Bilateral: clear, diminished breath sounds Cardiovascular: regular rate and rhythm Gastrointestinal: normoactive bowel sounds, soft, non-tender, non-distended Integumentary: normal Extremities: no cyanosis, no edema, pink and warm, pulses normal Neurologic: non-focal exam (grossly), pupils equal and round, unable to assess CBC and BMP: 12/14/16 18:03 12/14/16 18:03 ABG, PT/INR, D-dimer: ABG POC ABG pH 7.500 (7.35-7.45) H 12/12/16 10:12 POC ABG pCO2 41.9 (35-45) 12/12/16 10:12 POC ABG pO2 87 (80-105) 12/12/16 10:12 POC ABG HCO3 32.7 12/12/16 10:12 POC ABG Total CO2 34 12/12/16 10:12 POC ABG O2 Sat 97 12/12/16 10:12 PT/INR, D-dimer PT 14.0 Sec. (12.2-14.9) 12/06/16 16:07 INR 1.09 (0.87-1.13) 12/06/16 16:07 D-Dimer 586.01 ng/mlDDU (0-234) H 12/14/16 18:03 Abnormal lab findings: Abnormal Labs 12/07/16 12/07/16 12/07/16 00:35 05:30 05:30 RDW 13.0 L Plt Count 93 L [place] % (Auto) 11.2 H [place] # 1.1 H Seg Neutrophils % 71.3 H D-Dimer POC ABG pH POC ABG pO2 Sodium Chloride BUN Creatinine 0.6 L Glucose 168 H POC Glucose Calcium 7.8 L Direct Bilirubin 0.7 H Total Creatine Kinase 343 H C-Reactive Protein Albumin 2.6 L TSH 12/07/16 12/07/16 12/07/16 06:58 16:41 18:30 RDW Plt Count [place] % (Auto) [place] # Seg Neutrophils % D-Dimer POC ABG pH POC ABG pO2 Sodium Chloride BUN Creatinine Glucose POC Glucose 175 H Calcium Direct Bilirubin Total Creatine Kinase 242 H C-Reactive Protein 7.70 H Albumin TSH 12/09/16 12/10/16 12/10/16 11:58 06:05 12:24 RDW Plt Count [place] % (Auto) [place] # Seg Neutrophils % D-Dimer POC ABG pH 7.485 H POC ABG pO2 Sodium Chloride BUN Creatinine Glucose POC Glucose 141 H 183 H Calcium Direct Bilirubin Total Creatine Kinase C-Reactive Protein Albumin TSH 12/10/16 12/10/16 12/11/16 17:47 23:21 06:10 RDW Plt Count [place] % (Auto) [place] # Seg Neutrophils % D-Dimer POC ABG pH POC ABG pO2 Sodium Chloride BUN Creatinine Glucose POC Glucose 176 H 240 H 252 H Calcium Direct Bilirubin Total Creatine Kinase C-Reactive Protein Albumin [facility] 12/11/16 12/11/16 12/11/16 08:29 09:14 11:37 RDW 13.1 L Plt Count [place] % (Auto) [place] # Seg Neutrophils % D-Dimer POC ABG pH POC ABG pO2 Sodium Chloride BUN Creatinine Glucose POC Glucose 253 H 284 H Calcium Direct Bilirubin Total Creatine Kinase C-Reactive Protein Albumin TSH 12/11/16 12/11/16 12/11/16 16:12 17:54 23:35 RDW Plt Count [place] % (Auto) [place] # Seg Neutrophils % D-Dimer POC ABG pH POC ABG pO2 Sodium Chloride BUN 37 H Creatinine Glucose 258 H POC Glucose 227 H 264 H Calcium 8.3 L Direct Bilirubin Total Creatine Kinase C-Reactive Protein Albumin 2.6 L TSH 12/12/16 12/12/16 12/12/16 04:37 06:06 10:12 RDW Plt Count [place] % (Auto) [place] # Seg Neutrophils % D-Dimer POC ABG pH 7.500 H POC ABG pO2 69 L Sodium Chloride BUN Creatinine Glucose POC Glucose 288 H Calcium Direct Bilirubin Total Creatine Kinase C-Reactive Protein Albumin [facility] 12/12/16 12/12/16 12/12/16 13:08 17:46 23:31 RDW Plt Count [place] % (Auto) [place] # Seg Neutrophils % D-Dimer POC ABG pH POC ABG pO2 Sodium Chloride BUN Creatinine Glucose POC Glucose 215 H 234 H 241 H Calcium Direct Bilirubin Total Creatine Kinase C-Reactive Protein Albumin [facility] 12/13/16 12/13/16 12/13/16 05:38 11:44 17:32 RDW Plt Count [place] % (Auto) [place] # Seg Neutrophils % D-Dimer POC ABG pH POC ABG pO2 Sodium Chloride BUN Creatinine Glucose POC Glucose 215 H 237 H 215 H Calcium Direct Bilirubin Total Creatine Kinase C-Reactive Protein Albumin TSH 12/14/16 12/14/16 12/14/16 00:22 05:40 12:03 RDW Plt Count [place] % (Auto) [place] # Seg Neutrophils % D-Dimer POC ABG pH POC ABG pO2 Sodium Chloride BUN Creatinine Glucose POC Glucose 268 H 301 H 312 H Calcium Direct Bilirubin Total Creatine Kinase C-Reactive Protein Albumin TSH 12/14/16 12/14/16 12/14/16 18:03 18:03 18:03 RDW 12.9 L Plt Count [place] % (Auto) 8.0 H [place] # Seg Neutrophils % 72.4 H D-Dimer 586.01 H POC ABG pH POC ABG pO2 Sodium 150 H Chloride 109.1 H BUN 50 H Creatinine Glucose 261 H POC Glucose Calcium Direct Bilirubin Total Creatine Kinase C-Reactive Protein Albumin TSH 12/14/16 12/14/16 12/14/16 18:30 21:55 23:59 RDW Plt Count [place] % (Auto) [place] # Seg Neutrophils % D-Dimer POC ABG pH POC ABG pO2 Sodium Chloride BUN Creatinine Glucose POC Glucose 321 H 258 H 262 H Calcium Direct Bilirubin Total Creatine Kinase C-Reactive Protein Albumin TSH 12/15/16 12/15/16 12/15/16 05:28 06:04 09:15 RDW Plt Count [place] % (Auto) [place] # Seg Neutrophils % D-Dimer POC ABG pH POC ABG pO2 Sodium Chloride BUN Creatinine Glucose POC Glucose 274 H 276 H Calcium Direct Bilirubin Total Creatine Kinase C-Reactive Protein Albumin TSH 0.220 L Chest x-ray: image reviewed Allied health notes reviewed: RT
--- NOTE | 2016-12-15 10:20 | Consultation ---
History of Present Illness Consult date: 12/15/16 Requesting physician: NURY POE Reason for Consult: AMS Chief complaint: AMS limits direct hx History of present illness: 61 YO M Hx ICM, HTN, DM2, Tob abuse and prior metabolic encephalopathy brought to ED w/ AMS and confusion on 12/06 found to have sepsis w/ shock and PNA. Sx of AMS are constant waxing and waning. There are no clear aggravating, relieving or temporal factors. Severity is such to limit ADLs. Past History Past Medical History: CAD, diabetes, heart failure (systolic dysfunction ejection fraction 10-15%), hypertension Past Surgical History: PTCA Social history: smoking Family history: CAD, hypertension Medications and Allergies Allergies Allergy/AdvReac Type Severity Reaction Status Date / Time No Known Allergies Allergy Verified 08/09/14 20:15 Home Medications Medication Instructions Recorded Confirmed Last Taken Type Aspirin [Aspirin TAB] 81 mg PO QDAY #30 tablet 01/28/15 12/06/16 1 Day Ago Rx Furosemide [Lasix TAB] 20 mg PO DAILY #30 tablet 01/28/15 12/06/16 1 Day Ago Rx ISOSORBIDE MONOnitrate [Imdur ER] 30 mg PO DAILY #30 tablet 01/28/15 12/06/16 1 Day Ago Rx Lisinopril [Zestril] 2.5 mg PO QDAY #30 tablet 01/28/15 12/06/16 1 Day Ago Rx Metoprolol [Lopressor TAB] 12.5 mg PO BID #60 tablet 01/28/15 12/06/16 1 Day Ago Rx Pantoprazole [Protonix TAB] 20 mg PO BID #60 tablet. 01/28/15 12/06/16 1 Day Ago Rx Simvastatin [Zocor TAB] 20 mg PO QHS #30 tablet 01/28/15 12/06/16 1 Day Ago Rx Magnesium Oxide [Mag-Ox] 400 mg PO QDAY #5 tablet 02/02/16 12/06/16 1 Day Ago Rx Active Meds: Active Medications Acetaminophen (Tylenol) 650 mg ME Q4H PRN PRN Reason: Pain, Mild (1-3) Last Admin: 12/12/16 18:08 Dose: 650 mg Acetaminophen (Tylenol) 650 mg FEEDTUBE Q6H PRN PRN Reason: Fever >101 Last Admin: 12/15/16 09:31 Dose: 650 mg Albuterol/Ipratropium (Duoneb 0.5 Mg-3 Mg/3 Ml Soln) 1 ampul IH Q6HRT [facility] Last Admin: 12/15/16 07:29 Dose: 1 ampul Lipase/Protease/Amylase (Pancreerinn Dr 10,500 Unit) 1 each FEEDTUBE PRN PRN PRN Reason: For Clogged Feeding Tube Aspirin (Baby Aspirin) 81 mg PO QDAY [facility] Last Admin: 12/15/16 09:32 Dose: 81 mg Enoxaparin Sodium (Lovenox) 40 mg SUB-Q QDAY@2200 [facility] Last Admin: 12/14/16 21:59 Dose: 40 mg Haloperidol Lactate (Haldol) 5 mg IV Q6H PRN PRN Reason: Agitation Last Admin: 12/14/16 08:37 Dose: 5 mg Hydralazine HCl (Apresoline) 10 mg IV Q4HR PRN PRN Reason: Hypertension MORE THAN 160/90 Hydrophilic Ointment (Vaseline Lip Therapy) 1 applic TP Q2HR PRN PRN Reason: Dry Lips Last Admin: 12/07/16 12:44 Dose: 1 applic Levofloxacin/Dextrose (Levaquin 750mg/150ml) 750 mg in 150 mls @ 100 mls/hr IV Q24HR [facility] Last Admin: 12/15/16 09:31 Dose: 100 mls/hr Vancomycin HCl (Vancomycin/Ns 1 Gm/250 Ml) 1 gm in 250 mls @ 167.007 mls/hr IV Q8H [facility] PRN Reason: Protocol Last Admin: 12/15/16 09:48 Dose: 167.007 mls/hr Clindamycin HCl (Cleocin 600 Mg/50 Ml) 600 mg in 50 mls @ 100 mls/hr IV Q8HR [facility] PRN Reason: Protocol Stop: 12/21/16 21:59 Last Admin: 12/15/16 05:29 Dose: 100 mls/hr Phenylephrine HCl 100 mg/ (Sodium Chloride) 100 mls @ 3 mls/hr IV TITR [facility]; 50 MCG/MIN PRN Reason: Protocol Ibuprofen (Motrin) 600 mg PO Q6H PRN PRN Reason: Fever >101 Last Admin: 12/15/16 05:30 Dose: 600 mg Insulin Detemir (Levemir) 15 units SUB-Q QAMDIAB [facility] Last Admin: 12/15/16 09:33 Dose: 15 units Insulin Human Regular (Novolin R) 0 units SUB-Q Q6HR [facility] PRN Reason: Protocol Last Admin: 12/15/16 05:31 Dose: 6 units Metoprolol Tartrate (Lopressor) 25 mg PO BID [facility] Last Admin: 12/15/16 09:34 Dose: Not Given Multi-Ingred Cream/Lotion/Oil/Oint (Artificial Tears Ophth Oint) 1 applic OU Q4HR PRN PRN Reason: Dry Eye(s) Pantoprazole (Protonix) 40 mg FEEDTUBE DAILY [facility] Last Admin: 12/15/16 09:32 Dose: 40 mg Quetiapine Fumarate (Seroquel) 50 mg PO BID [facility] Last Admin: 12/15/16 09:32 Dose: 50 mg Simple Syrup (Simple Syrup) 15 ml FEEDTUBE PRN PRN PRN Reason: Hypoglycemia Simple Syrup (Simple Syrup) 30 ml FEEDTUBE PRN PRN PRN Reason: Hypoglycemia Simvastatin (Zocor) 20 mg PO QHS [facility] Last Admin: 12/14/16 22:00 Dose: 20 mg Sodium Bicarbonate (Sodium Bicarbonate) 325 mg FEEDTUBE PRN PRN PRN Reason: For Clogged Feeding Tube Review of Systems ROS unobtainable: due to mental status Physical Examination - Vital Signs Vital Signs: Vital Signs Temp Pulse Resp BP Pulse Ox 101.1 F H 134 H 28 H 125/81 100 12/06/16 15:10 12/06/16 15:10 12/06/16 15:10 12/06/16 15:10 12/06/16 15:10 - Constitutional General appearance: uncomfortable, acutely ill, chronically ill, older than stated age - EENT EENT: Present: ATNC, PERRL, mucous membranes dry, hearing intact, vision intact - Respiratory Respiratory: Present: chest non-tender, normal breath sounds, no respiratory distress - Cardiovascular Cardiovascular: Present: regular rate, other (tachycardia) Extremities: Present: no peripheral edema bilatateraly, no clubbing, cyanosis, no inflammation, no ischemia or petechiae - Gastrointestinal Gastrointestinal: Present: normoactive bowel sounds, soft, non-distended - Integumentary Integumentary: Present: normal - Neurologic Cranial nerve examination: PERRL, EOMI, VFF, V1/V2/V3 grossly intact, face symmetric, tongue midline, intact, intact shoulder shrug, intact cough reflex, Intact Vestibulo-ocular r, intact corneal reflex, normal palatal elevation Speech examination: intact (mumbled incomprehensible vocalizations but nods to name, follows all commands) Sensorimotor examination: intact Detailed motor examination: grossly full strength in Motor examination - right side: 4/5: biceps, triceps, wrist flexion, wrist extension, box strapper, hip flexors, knee extensors, dorsiflexion, toe extension (EHL) , plantarflexion Motor examination - left side: 4/5: biceps, triceps, wrist flexion, wrist extension, box strapper, hip flexors, knee extensors, dorsiflexion, toe extension (EHL) , plantarflexion Detailed sensory examination: intact, light touch, pain Reflexes: 0: ankle, 1+: knee, 2+: bicep, tricep - Musculoskeletal Musculoskeletal: Present: no fluid collection, no pain, normal range of motion - Psychiatric Psychiatric: Present: agitated, cooperative Results - Laboratory Findings CBC and BMP: 12/14/16 18:03 12/14/16 18:03 Abnormal Lab Findings: Abnormal Labs 12/07/16 12/07/16 12/07/16 00:35 05:30 05:30 RDW 13.0 L Plt Count 93 L [place] % (Auto) 11.2 H [place] # 1.1 H Seg Neutrophils % 71.3 H D-Dimer POC ABG pH POC ABG pO2 Sodium Chloride BUN Creatinine 0.6 L Glucose 168 H POC Glucose Calcium 7.8 L Direct Bilirubin 0.7 H Total Creatine Kinase 343 H C-Reactive Protein Albumin 2.6 L TSH 12/07/16 12/07/16 12/07/16 06:58 16:41 18:30 RDW Plt Count [place] % (Auto) [place] # Seg Neutrophils % D-Dimer POC ABG pH POC ABG pO2 Sodium Chloride BUN Creatinine Glucose POC Glucose 175 H Calcium Direct Bilirubin Total Creatine Kinase 242 H C-Reactive Protein 7.70 H Albumin TSH 12/09/16 12/10/16 12/10/16 11:58 06:05 12:24 RDW Plt Count [place] % (Auto) [place] # Seg Neutrophils % D-Dimer POC ABG pH 7.485 H POC ABG pO2 Sodium Chloride BUN Creatinine Glucose POC Glucose 141 H 183 H Calcium Direct Bilirubin Total Creatine Kinase C-Reactive Protein Albumin TSH 12/10/16 12/10/16 12/11/16 17:47 23:21 06:10 RDW Plt Count [place] % (Auto) [place] # Seg Neutrophils % D-Dimer POC ABG pH POC ABG pO2 Sodium Chloride BUN Creatinine Glucose POC Glucose 176 H 240 H 252 H Calcium Direct Bilirubin Total Creatine Kinase C-Reactive Protein Albumin TSH 12/11/16 12/11/16 12/11/16 08:29 09:14 11:37 RDW 13.1 L Plt Count [place] % (Auto) [place] # Seg Neutrophils % D-Dimer POC ABG pH POC ABG pO2 Sodium Chloride BUN Creatinine Glucose POC Glucose 253 H 284 H Calcium Direct Bilirubin Total Creatine Kinase C-Reactive Protein Albumin [facility] 12/11/16 12/11/16 12/11/16 16:12 17:54 23:35 RDW Plt Count [place] % (Auto) [place] # Seg Neutrophils % D-Dimer POC ABG pH POC ABG pO2 Sodium Chloride BUN 37 H Creatinine Glucose 258 H POC Glucose 227 H 264 H Calcium 8.3 L Direct Bilirubin Total Creatine Kinase C-Reactive Protein Albumin 2.6 L [facility] 12/12/16 12/12/16 12/12/16 04:37 06:06 10:12 RDW Plt Count [place] % (Auto) [place] # Seg Neutrophils % D-Dimer POC ABG pH 7.500 H POC ABG pO2 69 L Sodium Chloride BUN Creatinine Glucose POC Glucose 288 H Calcium Direct Bilirubin Total Creatine Kinase C-Reactive Protein Albumin [facility] 12/12/16 12/12/16 12/12/16 13:08 17:46 23:31 RDW Plt Count [place] % (Auto) [place] # Seg Neutrophils % D-Dimer POC ABG pH POC ABG pO2 Sodium Chloride BUN Creatinine Glucose POC Glucose 215 H 234 H 241 H Calcium Direct Bilirubin Total Creatine Kinase C-Reactive Protein Albumin TSH 12/13/16 12/13/16 12/13/16 05:38 11:44 17:32 RDW Plt Count [place] % (Auto) [place] # Seg Neutrophils % D-Dimer POC ABG pH POC ABG pO2 Sodium Chloride BUN Creatinine Glucose POC Glucose 215 H 237 H 215 H Calcium Direct Bilirubin Total Creatine Kinase C-Reactive Protein Albumin [facility] 12/14/16 12/14/16 12/14/16 00:22 05:40 12:03 RDW Plt Count [place] % (Auto) [place] # Seg Neutrophils % D-Dimer POC ABG pH POC ABG pO2 Sodium Chloride BUN Creatinine Glucose POC Glucose 268 H 301 H 312 H Calcium Direct Bilirubin Total Creatine Kinase C-Reactive Protein Albumin TSH 12/14/16 12/14/16 12/14/16 18:03 18:03 18:03 RDW 12.9 L Plt Count [place] % (Auto) 8.0 H [place] # Seg Neutrophils % 72.4 H D-Dimer 586.01 H POC ABG pH POC ABG pO2 Sodium 150 H Chloride 109.1 H BUN 50 H Creatinine Glucose 261 H POC Glucose Calcium Direct Bilirubin Total Creatine Kinase C-Reactive Protein Albumin TSH 12/14/16 12/14/16 12/14/16 18:30 21:55 23:59 RDW Plt Count [place] % (Auto) [place] # Seg Neutrophils % D-Dimer POC ABG pH POC ABG pO2 Sodium Chloride BUN Creatinine Glucose POC Glucose 321 H 258 H 262 H Calcium Direct Bilirubin Total Creatine Kinase C-Reactive Protein Albumin TSH 12/15/16 12/15/16 12/15/16 05:28 06:04 09:15 RDW Plt Count [place] % (Auto) [place] # Seg Neutrophils % D-Dimer POC ABG pH POC ABG pO2 Sodium Chloride BUN Creatinine Glucose POC Glucose 274 H 276 H Calcium Direct Bilirubin Total Creatine Kinase C-Reactive Protein Albumin TSH 0.220 L Assessment and Plan 61 YO M Hx ICM, HTN, DM2, Tob abuse and prior metabolic encephalopathy brought to ED w/ AMS and confusion on 12/06 found to have sepsis w/ shock and PNA. Pt has intact symmetric neurologic exam aside from impaired level of arousal and concentration, consistent with toxic metabolic infectious derangement as the etiology for neurologic decompensation. He follows midline and peripheral commands. There is no new focality on neurologic examination to suggest acute [employer] process e.g. Stroke, Seizure or Meningitis. CTH neg. NH4 neg. TSH low. B12 normal. Recommendations: 1. Will defer further neurologic w/u w/ regard to radiographic imaging-MRI Brain/Spine, EEG or LP @ this time. CTH reviewed and non-acute findings. 2. correct Thyroid function as necessary 3. Cont Infectious work up/medical management for UTI, PNA, cellulitis, bacteremia, etc. 4. Avoid hyponatremia, hypo/hyper-calcemia, hypo/hyperglycemia, acidosis, hypoxia/hypoxemia, hypercarbia/hypercapnia 5. Avoid institution of any psychoactive medications (e.g. antihistamines, anticholinergics, BZD, hypnotics, opiates) as able unless low doses of low potency antipsychotic needed for behavioral issues complicating medical care 6. Specific neurologic assessment of likelihood of prognosis back to baseline @ this point is limited as there is no active primary neurologic issue ongoing, and therefore prognosis will be completely secondary to any potential progress patient is able to make from multiple ongoing critical medical issues as above. 7. Thiamine/Folate/CIWA protocol accordingly for EtOH withdrawal 8. Cont home meds-there is no neurologic indication to change 9. We can revisit as needed.
[2016-12-15] MEDS ORDERED: LEVEMIR SUB-Q ONE (13:00)
--- NOTE | 2016-12-15 13:20 | Progress Note ---
Assessment and Plan - Patient Problems (1) Septic shock Current Visit: Yes Status: Acute Plan to address problem: Sepsis protocol: Pressor support as clinically indicated, ivf, abx, supportive care, monitor uop q shift (2) Respiratory failure Current Visit: Yes Status: Acute Qualifiers: Chronicity: C Respiratory failure complication: R Plan to address problem: NIPPV as clinically indicated, pulmonary toilet, incentive spirometry, Pulmonary consulted, The high probability of a clinically significant, sudden or life threatening deterioration of the [respiratory, cardiac] system(s) required my full and direct attention, intervention and personal management. The aggregate critical care time was [44] minutes. This time is in addition to time spent performing reported procedures but includes the following: [x] Data Review and interpretation [x] Patient assessment and monitoring of vital signs [x] Documentation [x] Medication orders and management (3) Non-compliance Current Visit: No Status: Chronic Plan to address problem: continue current care. (4) Systolic CHF, acute on chronic Current Visit: No Status: Acute Plan to address problem: Cardiology consulted, continue telemetry, continue current medication therapy, supportive care. 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 Pt confused and agitated today. Pt stable overnight. Hospitalist Physical - Constitutional Vitals: Temp Pulse Resp BP Pulse Ox 100.6 F H 101 H 28 H 92/56 96 12/15/16 12:00 12/15/16 11:01 12/15/16 11:01 12/15/16 11:01 12/15/16 11:01 General appearance: Present: mild distress, obese, other (orally intubated.) - EENT Eyes: Present: PERRL ENT: hearing intact - Neck Neck: Present: supple - Respiratory Respiratory effort: normal Respiratory: bilateral: diminished - Cardiovascular Rhythm: regular Heart Sounds: Present: S1 & S2 - Extremities Extremities: no ischemia Extremity abnormal: edema Peripheral Pulses: within normal limits - Abdominal General gastrointestinal: soft, non-distended - Integumentary Integumentary: Present: clear, dry - Psychiatric Psychiatric: no intact judgment & insight, agitated - Neurologic Neurologic: no gait normal Results - Labs CBC & Chem 7: 12/14/16 18:03 12/14/16 18:03 Labs: Laboratory Last Values WBC 10.3 K/mm3 (4.5-11.0) 12/14/16 18:03 RBC 4.32 M/mm3 (3.65-5.03) 12/14/16 18:03 Hgb 12.9 gm/dl (11.8-15.2) 12/14/16 18:03 Hct 38.7 % (35.5-45.6) 12/14/16 18:03 MCV 90 fl (84-94) 12/14/16 18:03 MCH 30 pg (28-32) 12/14/16 18:03 MCHC 33 % (32-34) 12/14/16 18:03 RDW 12.9 % (13.2-15.2) L 12/14/16 18:03 Plt Count 229 K/mm3 (140-440) 12/14/16 18:03 Lymph % (Auto) 17.8 % (13.4-35.0) 12/14/16 18:03 [place] % (Auto) 8.0 % (0.0-7.3) H 12/14/16 18:03 Eos % (Auto) 0.8 % (0.0-4.3) 12/14/16 18:03 Baso % (Auto) 1.0 % (0.0-1.8) 12/14/16 18:03 Lymph # 1.8 K/mm3 (1.2-5.4) 12/14/16 18:03 [place] # 0.8 K/mm3 (0.0-0.8) 12/14/16 18:03 Eos # 0.1 K/mm3 (0.0-0.4) 12/14/16 18:03 Baso # 0.1 K/mm3 (0.0-0.1) 12/14/16 18:03 Seg Neutrophils % 72.4 % (40.0-70.0) H 12/14/16 18:03 Seg Neutrophils # 7.5 K/mm3 (1.8-7.7) 12/14/16 18:03 PT 14.0 Sec. (12.2-14.9) 12/06/16 16:07 INR 1.09 (0.87-1.13) 12/06/16 16:07 APTT 29.1 Sec. (24.2-36.6) 12/06/16 16:07 D-Dimer 586.01 ng/mlDDU (0-234) H 12/14/16 18:03 POC ABG pH 7.500 (7.35-7.45) H 12/12/16 10:12 POC ABG pCO2 41.9 (35-45) 12/12/16 10:12 POC ABG pO2 87 (80-105) 12/12/16 10:12 POC ABG HCO3 32.7 12/12/16 10:12 POC ABG Total CO2 34 12/12/16 10:12 POC ABG O2 Sat 97 12/12/16 10:12 POC ABG Base Excess 10 12/12/16 10:12 FiO2 45 % 12/12/16 10:12 Sodium 150 mmol/L (137-145) H 12/14/16 18:03 Potassium 3.8 mmol/L (3.6-5.0) 12/14/16 18:03 Chloride 109.1 mmol/L (98-107) H 12/14/16 18:03 Carbon Dioxide 26 mmol/L (22-30) 12/14/16 18:03 Anion Gap 19 mmol/L 12/14/16 18:03 BUN 50 mg/dL (9-20) H 12/14/16 18:03 Creatinine 1.2 mg/dL (0.8-1.5) 12/14/16 18:03 Estimated GFR > 60 ml/min 12/14/16 18:03 BUN/Creatinine Ratio 41.66 % 12/14/16 18:03 Glucose 261 mg/dL (75-100) H 12/14/16 18:03 POC Glucose 273 (70-105) H 12/15/16 11:59 Lactic Acid 1.6 mmol/L (0.7-2.0) 12/14/16 18:03 Calcium 8.5 mg/dL (8.4-10.2) 12/14/16 18:03 Phosphorus 3.0 mg/dL (2.5-4.5) 12/07/16 05:30 Magnesium 1.9 mg/dL (1.7-2.3) 12/07/16 05:30 Total Bilirubin 0.9 mg/dL (0.1-1.2) 12/11/16 16:12 Direct Bilirubin 0.7 mg/dL (0-0.2) H 12/07/16 05:30 Indirect Bilirubin 0.4 mg/dL 12/07/16 05:30 AST 30 units/L (5-40) 12/11/16 16:12 ALT 14 units/L (7-56) 12/11/16 16:12 Alkaline Phosphatase 44 units/L (35-129) 12/11/16 16:12 Ammonia 42.0 umol/L (25-60) 12/06/16 16:07 Total Creatine Kinase 242 units/L (55-170) H 12/07/16 06:58 CK-MB (CK-2) 2.8 ng/mL (0.0-4.0) 12/07/16 06:58 CK-MB (CK-2) Rel Index 1.1 (0-4) 12/07/16 06:58 Troponin T < 0.010 ng/mL (0.00-0.029) 12/07/16 06:58 C-Reactive Protein 1.20 mg/dL (0.00-1.30) 12/15/16 11:37 Total Protein 7.6 g/dL (6.3-8.2) 12/11/16 16:12 Albumin 2.6 g/dL (3.9-5) L 12/11/16 16:12 Albumin/Globulin Ratio 0.5 % 12/11/16 16:12 Vitamin B12 815.1 pg/mL (211-911) 12/15/16 09:15 TSH 0.220 mlU/mL (0.270-4.200) L 12/15/16 09:15 Urine Color Winsome (Yellow) 12/06/16 15:30 Urine Turbidity Clear (Clear) 12/06/16 15:30 Urine pH 6.0 (5.0-7.0) 12/06/16 15:30 Ur Specific [place] 1.017 (1.003-1.030) 12/06/16 15:30 Urine Protein 100 mg/dl mg/dL (Negative) 12/06/16 15:30 Urine Glucose (UA) 50 mg/dL (Negative) 12/06/16 15:30 Urine Ketones Neg mg/dL (Negative) 12/06/16 15:30 Urine Blood Sm (Negative) 12/06/16 15:30 Urine Nitrite Neg (Negative) 12/06/16 15:30 Urine Bilirubin Neg (Negative) 12/06/16 15:30 Urine Urobilinogen 4.0 mg/dL (<2.0) 12/06/16 15:30 Ur Leukocyte Esterase Neg (Negative) 12/06/16 15:30 Urine WBC (Auto) < 1.0 /HPF (0.0-6.0) 12/06/16 15:30 Urine RBC (Auto) 4.0 /HPF (0.0-6.0) 12/06/16 15:30 Urine Mucus Few /HPF 12/06/16 15:30 Salicylates < 0.3 mg/dL (2.8-20.0) L 12/06/16 16:07 Urine Opiates Screen Presumptive negative 12/06/16 15:30 Urine Methadone Screen Presumptive negative 12/06/16 15:30 Acetaminophen < 15.0 ug/mL (10.0-30.0) 12/06/16 16:07 Ur Barbiturates Screen Presumptive negative 12/06/16 15:30 Ur Phencyclidine Scrn Presumptive negative 12/06/16 15:30 Ur Amphetamines Screen Presumptive negative 12/06/16 15:30 U Benzodiazepines Scrn Presumptive negative 12/06/16 15:30 Urine Cocaine Screen Presumptive negative 12/06/16 15:30 U Marijuana (THC) Screen Presumptive negative 12/06/16 15:30 Drugs of Abuse Note Disclamer 12/06/16 15:30 Plasma/Serum Alcohol < 0.01 gm% (0-0.07) 12/06/16 16:07
[2016-12-15] MEDS: FOLVITE PO SCH (13:24)
[2016-12-15] MEDS: Centrum Liq PO SCH (13:24)
[2016-12-15] MEDS: VITAMIN B-1 PO SCH (13:28)
[2016-12-15] MEDS: HALDOL IV PRN (17:04)
[2016-12-15 18:10] LABS: ISTAT Base Excess -2; ISTAT HCO3 22.2; ISTAT PCO2 33.3 (35-45); ISTAT PH 7.431 (7.35-7.45); ISTAT PO2 70 (80-105); ISTAT SO2 95; ISTAT TCO2 23
--- NOTE | 2016-12-15 18:33 | Progress Note ---
Subjective Date of service: 12/15/16 Principal diagnosis: Acute hypoxemic respiratory failure, shock Interval history: Patient still has mild fever but improved from yesterday. PHYSICAL EXAM Vital signs - temp 99.8 chest - mild b/l rhonchi cvs - s1s2 abd - bs+ LABS See lab section ASSESSMENT 1. Sepsis 2. Pneumonia 3. Acute respiratory failure 4. Encephalopathy 5. CHF RECOMMENDATION 1. cbc/bmp in am 2. continue current antibiotics. Will reevaluate in am if fever persists. Objective - Constitutional Vitals: Vital Signs Temp Pulse Resp BP Pulse Ox 99.8 F H 128 H 35 H 112/70 92 12/15/16 16:00 12/15/16 16:01 12/15/16 16:01 12/15/16 16:01 12/15/16 15:00 Temperature -Last 24 Hours Temperature 99.8 F Temperature 100.6 F Temperature 102.9 F Temperature 102.4 F Temperature 99.1 F Temperature 102.4 F Temperature 101.7 F - Labs CBC & Chem 7: 12/14/16 18:03 12/14/16 18:03 Labs: Abnormal lab results 12/14/16 12/14/16 12/14/16 Range/Units 18:03 18:03 18:03 RDW 12.9 L (13.2-15.2) % [place] % (Auto) 8.0 H (0.0-7.3) % Seg Neutrophils % 72.4 H (40.0-70.0) % D-Dimer 586.01 H (0-234) ng/mlDDU POC ABG pCO2 (35-45) POC ABG pO2 (80-105) Sodium 150 H (137-145) mmol/L Chloride 109.1 H (98-107) mmol/L BUN 50 H (9-20) mg/dL Glucose 261 H (75-100) mg/dL POC Glucose (70-105) TSH (0.270-4.200) mlU/mL 12/14/16 12/14/16 12/14/16 Range/Units 18:30 21:55 23:59 RDW (13.2-15.2) % [place] % (Auto) (0.0-7.3) % Seg Neutrophils % (40.0-70.0) % D-Dimer (0-234) ng/mlDDU POC ABG pCO2 (35-45) POC ABG pO2 (80-105) Sodium (137-145) mmol/L Chloride (98-107) mmol/L BUN (9-20) mg/dL Glucose (75-100) mg/dL POC Glucose 321 H 258 H 262 H (70-105) TSH (0.270-4.200) mlU/mL 12/15/16 12/15/16 12/15/16 Range/Units 05:28 06:04 09:15 RDW (13.2-15.2) % [place] % (Auto) (0.0-7.3) % Seg Neutrophils % (40.0-70.0) % D-Dimer (0-234) ng/mlDDU POC ABG pCO2 (35-45) POC ABG pO2 (80-105) Sodium (137-145) mmol/L Chloride (98-107) mmol/L BUN (9-20) mg/dL Glucose (75-100) mg/dL POC Glucose 274 H 276 H (70-105) TSH 0.220 L (0.270-4.200) mlU/mL 12/15/16 12/15/16 12/15/16 Range/Units 11:59 13:40 18:06 RDW (13.2-15.2) % [place] % (Auto) (0.0-7.3) % Seg Neutrophils % (40.0-70.0) % D-Dimer (0-234) ng/mlDDU POC ABG pCO2 33.3 L (35-45) POC ABG pO2 70 L (80-105) Sodium (137-145) mmol/L Chloride (98-107) mmol/L BUN (9-20) mg/dL Glucose (75-100) mg/dL POC Glucose 273 H (70-105) TSH 0.204 L (0.270-4.200) mlU/mL 12/15/16 Range/Units 18:14 RDW (13.2-15.2) % [place] % (Auto) (0.0-7.3) % Seg Neutrophils % (40.0-70.0) % D-Dimer (0-234) ng/mlDDU POC ABG pCO2 (35-45) POC ABG pO2 (80-105) Sodium (137-145) mmol/L Chloride (98-107) mmol/L BUN (9-20) mg/dL Glucose (75-100) mg/dL POC Glucose 234 H (70-105) TSH (0.270-4.200) mlU/mL
--- NOTE | 2016-12-15 20:25 | Progress Note ---
Subjective Date of service: 12/15/16 Principal diagnosis: Acute hypoxemic respiratory failure, shock Interval history: Intubation Note: Patient is a 61 yo M with PMH of CHF, CAD, DM comes in with altered mental status and respiratory failure. Called by nurse to intubate patient by request of Dr. Najera due to acute respiratory failure. Upon arrival, patient was on BiPap and appeared agitated. Not following commands but thrashing arms. Oxygen sat 100% on BiPAP. 10mg of Etomidate and 100mg of Succinylcholine given for intubation. MAC 4 blade initially used but only able to get Grade 3 view and unable to pass bougie. Patient then oxygenated and bagged with ambubag. CMAC 4 video laryngoscope used and able to get only grade 3 view. Attempted to pass bougie but unable to. Patient then ventilated with ambubag. Glidescope 4 video laryngoscope then used and able to get what appeared to possibly be a grade 1 view. Small amount of left vocal cord was seen. Very thick greenish, yellow secretions were covering the vocal cords. Able to push bougie through secretions and pass a 8.0 Endotracheal tube over the bougie. CO2 was positive x 6. Respiratory therapy verified breath sounds. Tube then secured in place. Further care and CXR to be ordered by ICU team. Location: [facility] Performing Physician: Dr. Harini Sibley Requesting PHysician: Dr. Najera Time Spent: 20 minutes Objective - Constitutional Vitals: Vital Signs - 12hr 12/15/16 12/15/16 12/15/16 08:28 09:01 09:34 Temperature Pulse Rate 124 H 110 H Pulse Rate [ Anterior Bilateral Throughout] Pulse Rate [ From Monitor] Respiratory 33 H Rate Respiratory Rate [Anterior Bilateral Throughout] Blood Pressure 110/69 89/59 O2 Sat by Pulse 96 95 Oximetry 12/15/16 12/15/16 12/15/16 09:35 10:00 11:01 Temperature Pulse Rate 117 H 101 H 101 H Pulse Rate [ Anterior Bilateral Throughout] Pulse Rate [ From Monitor] Respiratory 27 H 28 H Rate Respiratory Rate [Anterior Bilateral Throughout] Blood Pressure 89/59 92/56 92/56 O2 Sat by Pulse 92 96 Oximetry 12/15/16 12/15/16 12/15/16 12:00 12:01 13:00 Temperature 100.6 F H Pulse Rate 107 H 108 H Pulse Rate [ Anterior Bilateral Throughout] Pulse Rate [ 107 H From Monitor] Respiratory 19 19 25 H Rate Respiratory Rate [Anterior Bilateral Throughout] Blood Pressure 92/56 123/69 O2 Sat by Pulse 95 95 93 Oximetry 12/15/16 12/15/16 12/15/16 14:00 14:50 15:00 Temperature Pulse Rate 106 H 114 H Pulse Rate [ 113 H 115 H Anterior Bilateral Throughout] Pulse Rate [ From Monitor] Respiratory 20 36 H Rate Respiratory 26 H 18 Rate [Anterior Bilateral Throughout] Blood Pressure 112/64 112/70 O2 Sat by Pulse 93 92 Oximetry 12/15/16 12/15/16 12/15/16 16:00 16:01 17:00 Temperature 99.8 F H Pulse Rate 128 H 147 H Pulse Rate [ Anterior Bilateral Throughout] Pulse Rate [ From Monitor] Respiratory 32 H 35 H 34 H Rate Respiratory Rate [Anterior Bilateral Throughout] Blood Pressure 112/70 131/83 O2 Sat by Pulse 93 88 Oximetry 12/15/16 18:01 Temperature Pulse Rate 148 H Pulse Rate [ Anterior Bilateral Throughout] Pulse Rate [ From Monitor] Respiratory 36 H Rate Respiratory Rate [Anterior Bilateral Throughout] Blood Pressure 133/91 O2 Sat by Pulse 88 Oximetry - Labs CBC & Chem 7: 12/14/16 18:03 12/14/16 18:03 Labs: Abnormal lab results 12/14/16 12/14/16 12/15/16 Range/Units 21:55 23:59 05:28 POC ABG pCO2 (35-45) POC ABG pO2 (80-105) POC Glucose 258 H 262 H 274 H (70-105) TSH (0.270-4.200) mlU/mL 12/15/16 12/15/16 12/15/16 Range/Units 06:04 09:15 11:59 POC ABG pCO2 (35-45) POC ABG pO2 (80-105) POC Glucose 276 H 273 H (70-105) TSH 0.220 L (0.270-4.200) mlU/mL 12/15/16 12/15/16 12/15/16 Range/Units 13:40 18:06 18:14 POC ABG pCO2 33.3 L (35-45) POC ABG pO2 70 L (80-105) POC Glucose 234 H (70-105) TSH 0.204 L (0.270-4.200) mlU/mL
[2016-12-15] MEDS ORDERED: ATIVAN 100 MG in NACL 0.9% 50 ML, VIAFLEX EMPTY CONTAINER 0 ML IV SCH (21:00)
[2016-12-15 21:33] LABS: ISTAT Base Excess -2; ISTAT HCO3 24.1; ISTAT PCO2 44.4 (35-45); ISTAT PH 7.341 (7.35-7.45); ISTAT PO2 223 (80-105); ISTAT SO2 100; ISTAT TCO2 25
[2016-12-15] MEDS: ZOCOR PO SCH (21:59)
[2016-12-15] MEDS: LOVENOX SUB-Q SCH (21:59)
[2016-12-16] MEDS: TYLENOL FEEDTUBE PRN ×4 (00:25→18:43)
--- NOTE | 2016-12-16 01:39 | XRay Report ---
FINAL REPORT PROCEDURE: XR CHEST 1V AP TECHNIQUE: Chest radiograph anteroposterior view. CPT 90797 HISTORY: et tube ordered COMPARISON: 12/09/2016 FINDINGS: Heart: Normal. Mediastinum/Vessels: Normal. Lungs/Pleural space: Mild atelectasis bilateral lower lungs. Bony thorax: No acute osseous abnormality. Life support devices: The endotracheal tube ends just at the evan pointed toward the right bronchus. The nasogastric tube ends below the hemidiaphragms.. IMPRESSION: The endotracheal tube ends just at the evan, retraction by approximately 3-4 centimeters would be more appropriate. Slight atelectasis bilateral lower lungs..
[2016-12-16] MEDS: DUONEB 0.5 MG-3 MG/3 ML SOLN IH SCH ×4 (01:40→22:26)
[2016-12-16] MEDS: VANCOMYCIN/NS 1 GM/250 ML 1 GM/250 ML BAG IV SCH ×3 (02:00→18:45)
--- NOTE | 2016-12-16 02:57 | Progress Note ---
Assessment and Plan - Patient Problems (1) Septic shock Current Visit: Yes Status: Acute Plan to address problem: Sepsis protocol: Pressor support as clinically indicated, ivf, abx, supportive care, monitor uop q shift (2) Respiratory failure Current Visit: Yes Status: Acute Qualifiers: Chronicity: C Respiratory failure complication: R Plan to address problem: NIPPV as clinically indicated, pulmonary toilet, incentive spirometry, Pulmonary consulted, The high probability of a clinically significant, sudden or life threatening deterioration of the [respiratory, cardiac] system(s) required my full and direct attention, intervention and personal management. The aggregate critical care time was [44] minutes. This time is in addition to time spent performing reported procedures but includes the following: [x] Data Review and interpretation [x] Patient assessment and monitoring of vital signs [x] Documentation [x] Medication orders and management (3) Non-compliance Current Visit: No Status: Chronic Plan to address problem: continue current care. (4) Systolic CHF, acute on chronic Current Visit: No Status: Acute Plan to address problem: Cardiology consulted, continue telemetry, continue current medication therapy, supportive care. 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 No reported nursing events. Pt confused and agitated today. Pt stable overnight. Hospitalist Physical - Constitutional Vitals: Temp Pulse Resp BP Pulse Ox 103.0 F H 121 H 32 H 119/41 95 12/16/16 01:00 12/16/16 02:00 12/16/16 02:00 12/16/16 02:00 12/16/16 02:00 General appearance: Present: mild distress, obese, other (orally intubated.) - EENT Eyes: Present: EOM intact - Neck Neck: Present: supple - Respiratory Respiratory: bilateral: diminished - Cardiovascular Rhythm: regular Heart Sounds: Present: S1 & S2 - Extremities Extremities: no ischemia Extremity abnormal: edema Peripheral Pulses: within normal limits - Abdominal General gastrointestinal: soft, non-tender, non-distended, no hepatomegaly, no splenomegaly, no mass - Integumentary Integumentary: Present: clear, dry - Psychiatric Psychiatric: no intact judgment & insight, no memory intact - Neurologic Neurologic: CNII-XII intact, moves all extremities, no gait normal Results - Labs CBC & Chem 7: 12/14/16 18:03 12/14/16 18:03 Labs: Laboratory Last Values WBC 10.3 K/mm3 (4.5-11.0) 12/14/16 18:03 RBC 4.32 M/mm3 (3.65-5.03) 12/14/16 18:03 Hgb 12.9 gm/dl (11.8-15.2) 12/14/16 18:03 Hct 38.7 % (35.5-45.6) 12/14/16 18:03 MCV 90 fl (84-94) 12/14/16 18:03 MCH 30 pg (28-32) 12/14/16 18:03 MCHC 33 % (32-34) 12/14/16 18:03 RDW 12.9 % (13.2-15.2) L 12/14/16 18:03 Plt Count 229 K/mm3 (140-440) 12/14/16 18:03 Lymph % (Auto) 17.8 % (13.4-35.0) 12/14/16 18:03 [place] % (Auto) 8.0 % (0.0-7.3) H 12/14/16 18:03 Eos % (Auto) 0.8 % (0.0-4.3) 12/14/16 18:03 Baso % (Auto) 1.0 % (0.0-1.8) 12/14/16 18:03 Lymph # 1.8 K/mm3 (1.2-5.4) 12/14/16 18:03 [place] # 0.8 K/mm3 (0.0-0.8) 12/14/16 18:03 Eos # 0.1 K/mm3 (0.0-0.4) 12/14/16 18:03 Baso # 0.1 K/mm3 (0.0-0.1) 12/14/16 18:03 Seg Neutrophils % 72.4 % (40.0-70.0) H 12/14/16 18:03 Seg Neutrophils # 7.5 K/mm3 (1.8-7.7) 12/14/16 18:03 PT 14.0 Sec. (12.2-14.9) 12/06/16 16:07 INR 1.09 (0.87-1.13) 12/06/16 16:07 APTT 29.1 Sec. (24.2-36.6) 12/06/16 16:07 D-Dimer 586.01 ng/mlDDU (0-234) H 12/14/16 18:03 POC ABG pH 7.341 (7.35-7.45) L 12/15/16 21:26 POC ABG pCO2 44.4 (35-45) 12/15/16 21:26 POC ABG pO2 223 (80-105) H 12/15/16 21:26 POC ABG HCO3 24.1 12/15/16 21:26 POC ABG Total CO2 25 12/15/16 21:26 POC ABG O2 Sat 100 12/15/16 21:26 POC ABG Base Excess -2 12/15/16 21:26 FiO2 100 % 12/15/16 21:26 Sodium 150 mmol/L (137-145) H 12/14/16 18:03 Potassium 3.8 mmol/L (3.6-5.0) 12/14/16 18:03 Chloride 109.1 mmol/L (98-107) H 12/14/16 18:03 Carbon Dioxide 26 mmol/L (22-30) 12/14/16 18:03 Anion Gap 19 mmol/L 12/14/16 18:03 BUN 50 mg/dL (9-20) H 12/14/16 18:03 Creatinine 1.2 mg/dL (0.8-1.5) 12/14/16 18:03 Estimated GFR > 60 ml/min 12/14/16 18:03 BUN/Creatinine Ratio 41.66 % 12/14/16 18:03 Glucose 261 mg/dL (75-100) H 12/14/16 18:03 POC Glucose 234 (70-105) H 12/15/16 18:14 Lactic Acid 1.4 mmol/L (0.7-2.0) 12/15/16 13:40 Calcium 8.5 mg/dL (8.4-10.2) 12/14/16 18:03 Phosphorus 3.0 mg/dL (2.5-4.5) 12/07/16 05:30 Magnesium 1.9 mg/dL (1.7-2.3) 12/07/16 05:30 Total Bilirubin 0.9 mg/dL (0.1-1.2) 12/11/16 16:12 Direct Bilirubin 0.7 mg/dL (0-0.2) H 12/07/16 05:30 Indirect Bilirubin 0.4 mg/dL 12/07/16 05:30 AST 30 units/L (5-40) 12/11/16 16:12 ALT 14 units/L (7-56) 12/11/16 16:12 Alkaline Phosphatase 44 units/L (35-129) 12/11/16 16:12 Ammonia 42.0 umol/L (25-60) 12/06/16 16:07 Total Creatine Kinase 242 units/L (55-170) H 12/07/16 06:58 CK-MB (CK-2) 2.8 ng/mL (0.0-4.0) 12/07/16 06:58 CK-MB (CK-2) Rel Index 1.1 (0-4) 12/07/16 06:58 Troponin T < 0.010 ng/mL (0.00-0.029) 12/07/16 06:58 C-Reactive Protein 1.20 mg/dL (0.00-1.30) 12/15/16 11:37 Total Protein 7.6 g/dL (6.3-8.2) 12/11/16 16:12 Albumin 2.6 g/dL (3.9-5) L 12/11/16 16:12 Albumin/Globulin Ratio 0.5 % 12/11/16 16:12 Vitamin B12 815.1 pg/mL (211-911) 12/15/16 09:15 TSH 0.204 mlU/mL (0.270-4.200) L 12/15/16 13:40 Free T4 1.16 ng/dL (0.76-1.46) 12/15/16 13:40 Urine Color Winsome (Yellow) 12/06/16 15:30 Urine Turbidity Clear (Clear) 12/06/16 15:30 Urine pH 6.0 (5.0-7.0) 12/06/16 15:30 Ur Specific [place] 1.017 (1.003-1.030) 12/06/16 15:30 Urine Protein 100 mg/dl mg/dL (Negative) 12/06/16 15:30 Urine Glucose (UA) 50 mg/dL (Negative) 12/06/16 15:30 Urine Ketones Neg mg/dL (Negative) 12/06/16 15:30 Urine Blood Sm (Negative) 12/06/16 15:30 Urine Nitrite Neg (Negative) 12/06/16 15:30 Urine Bilirubin Neg (Negative) 12/06/16 15:30 Urine Urobilinogen 4.0 mg/dL (<2.0) 12/06/16 15:30 Ur Leukocyte Esterase Neg (Negative) 12/06/16 15:30 Urine WBC (Auto) < 1.0 /HPF (0.0-6.0) 12/06/16 15:30 Urine RBC (Auto) 4.0 /HPF (0.0-6.0) 12/06/16 15:30 Urine Mucus Few /HPF 12/06/16 15:30 Salicylates < 0.3 mg/dL (2.8-20.0) L 12/06/16 16:07 Urine Opiates Screen Presumptive negative 12/06/16 15:30 Urine Methadone Screen Presumptive negative 12/06/16 15:30 Acetaminophen < 15.0 ug/mL (10.0-30.0) 12/06/16 16:07 Ur Barbiturates Screen Presumptive negative 12/06/16 15:30 Ur Phencyclidine Scrn Presumptive negative 12/06/16 15:30 Ur Amphetamines Screen Presumptive negative 12/06/16 15:30 U Benzodiazepines Scrn Presumptive negative 12/06/16 15:30 Urine Cocaine Screen Presumptive negative 12/06/16 15:30 U Marijuana (THC) Screen Presumptive negative 12/06/16 15:30 Drugs of Abuse Note Disclamer 12/06/16 15:30 Plasma/Serum Alcohol < 0.01 gm% (0-0.07) 12/06/16 16:07
[2016-12-16 05:24] LABS: ISTAT Base Excess -5; ISTAT HCO3 19.8; ISTAT PCO2 32.5 (35-45); ISTAT PH 7.392 (7.35-7.45); ISTAT PO2 87 (80-105); ISTAT SO2 97; ISTAT TCO2 21
[2016-12-16] MEDS: CLEOCIN 600 MG/50 mL 600 MG/50 ML BAG IV SCH ×3 (05:31→21:54)
[2016-12-16] MEDS ORDERED: LEVEMIR SUB-Q SCH (08:00)
--- NOTE | 2016-12-16 08:20 | XRay Report ---
AP CHEST: HISTORY: Endotracheal tube placement The endotracheal tube has been retracted slightly since earlier today at 0116 hours but still terminates near the orifice of the right mainstem bronchus. Retraction by 2-3 cm is recommended. Please correlate with the image. The lungs demonstrate mild chronic interstitial changes but no evidence for consolidation, pleural effusion or pneumothorax. Heart size is within normal limits. The Dobbhoff tube is in adequate position. Impression: Recommend retraction of the endotracheal tube, see above. No acute cardiopulmonary process identified.
[2016-12-16] MEDS: LOPRESSOR PO SCH ×2 (09:25→21:59)
[2016-12-16] MEDS: BABY ASPIRIN PO SCH (09:25)
[2016-12-16] MEDS: FOLVITE PO SCH (09:25)
[2016-12-16] MEDS: VITAMIN B-1 PO SCH (09:25)
[2016-12-16] MEDS: LEVAQUIN 750MG/150ML 750 MG/150 ML BAG IV SCH (09:25)
[2016-12-16] MEDS: Centrum Liq PO SCH (09:25)
[2016-12-16] MEDS: PROTONIX FEEDTUBE SCH (09:25)
--- NOTE | 2016-12-16 09:38 | Progress Note ---
Assessment and Plan Acute respiratory failure s/p extubation Sepsis Pneumonia Altered mental status Chronic systolic heart failure Ischemic cardiomyopathy Echo this admission demonstrates left ventricular ejection fraction 35%. Hx of CAD [facility] 2014: patent mid LAD stent, patent diagonal branch stent, patent mid obtuse marginal stent. Nonobstructive disease of the RCA. EF 30-35%. Recommend: Conservative cardiac management. Subjective Date of service: 12/16/16 Principal diagnosis: Acute hypoxemic respiratory failure, shock Interval history: Patient is currently intubated. Patient with high grade fever. Objective Vital Signs Temp Pulse Pulse Pulse Pulse Resp Resp 12/16/16 09:25 136 H 12/16/16 09:00 104.5 F H 135 H 135 H 34 H 12/16/16 08:00 134 H 34 H 12/16/16 07:00 133 H 34 H 12/16/16 06:00 130 H 35 H 12/16/16 05:02 125 H 12/16/16 05:00 103 F H 125 H 33 H 12/16/16 04:00 125 H 33 H 12/16/16 03:00 123 H 32 H 12/16/16 02:00 121 H 32 H 12/16/16 01:01 120 H 32 H 12/16/16 01:00 103.0 F H 12/16/16 00:06 126 H 12/16/16 00:00 124 H 32 H 12/15/16 23:01 128 H 32 H 12/15/16 22:01 135 H 35 H 12/15/16 21:59 138 H 12/15/16 21:43 137 H 36 H 12/15/16 21:34 104.0 F H 12/15/16 21:01 137 H 35 H 12/15/16 20:04 159 H 12/15/16 20:01 160 H 27 H 12/15/16 19:01 163 H 36 H 12/15/16 18:01 148 H 36 H 12/15/16 17:00 147 H 34 H 12/15/16 16:01 128 H 35 H 12/15/16 16:00 99.8 F H 32 H 12/15/16 15:00 114 H 115 H 36 H 18 12/15/16 14:50 113 H 26 H 12/15/16 14:00 106 H 20 12/15/16 13:00 108 H 25 H 12/15/16 12:01 107 H 19 12/15/16 12:00 100.6 F H 107 H 19 12/15/16 11:01 101 H 28 H 12/15/16 10:00 101 H 27 H BP Pulse Ox 12/16/16 09:25 125/76 12/16/16 09:00 125/76 93 12/16/16 08:00 118/66 95 12/16/16 07:00 135/39 92 12/16/16 06:00 111/45 92 12/16/16 05:02 140/44 95 12/16/16 05:00 126/47 96 12/16/16 04:00 140/44 95 12/16/16 03:00 116/47 95 12/16/16 02:00 119/41 95 12/16/16 01:01 98/48 95 12/16/16 01:00 12/16/16 00:06 133/41 96 12/16/16 00:00 154/85 96 12/15/16 23:01 133/41 95 12/15/16 22:01 141/47 91 12/15/16 21:59 112/69 12/15/16 21:43 126/31 89 12/15/16 21:34 12/15/16 21:01 83/57 99 12/15/16 20:04 112/69 98 12/15/16 20:01 112/69 98 12/15/16 19:01 149/89 89 12/15/16 18:01 133/91 88 12/15/16 17:00 131/83 88 12/15/16 16:01 112/70 12/15/16 16:00 93 12/15/16 15:00 112/70 92 12/15/16 14:50 12/15/16 14:00 112/64 93 12/15/16 13:00 123/69 93 12/15/16 12:01 92/56 95 12/15/16 12:00 95 12/15/16 11:01 92/56 96 12/15/16 10:00 92/56 92 - Physical Examination General: Other (intubated) Cardiac: Positive: Tachycardia Extremities: Absent: edema - Allied health notes Allied health notes reviewed: RT
--- NOTE | 2016-12-16 10:17 | Progress Note ---
Assessment and Plan - Patient Problems (1) Acute hypoxemic respiratory failure Current Visit: Yes Status: Acute Plan to address problem: - intubated - continue aspiration precautions / VAP bundles - continue bronchodilators and pulmonary toilet - continue to wean FiO2 for sats > 94% - begin daily weaning trials as tolerated - add fentanyl for pain/sedation re: Tachypnea (2) Altered mental status Current Visit: Yes Status: Acute Qualifiers: Altered mental status type: A Coma depth: C Coma timing: C Plan to address problem: - seen by neurology - prn sedation / benzo's - will follow recommendations (3) Cardiomyopathy Current Visit: Yes Status: Acute Plan to address problem: - despite CHF history he is likely volume dependent while with sepsis syndrome - agree with stopping diuresis - crystalloid bolus for MAP < 60mmHg - otherwise as per cardiology (4) Septic shock Current Visit: Yes Status: Acute Plan to address problem: - continue AB's per ID recs - r/o VTE re: fevers (dopplers negative but may benefit from CTA once more stable) - continue gentle volume resuscitation prn (5) Atypical chest pain Current Visit: No Status: Acute Plan to address problem: - per cardiology (6) Diabetes Current Visit: No Status: Chronic Qualifiers: Diabetes mellitus type: D Diabetes mellitus complication status: D Diabetes mellitus complication detail: D Diabetic retinopathy severity: D Proliferative retinopathy type: P Diabetes mellitus macular edema: D Diabetes mellitus nursing home insulin use: D Laterality: L Chronic kidney disease stage: C Plan to address problem: - continue SSI (7) BRITTANY (acute kidney injury) Current Visit: Yes Status: Acute Plan to address problem: - continue IVF - consulted nephrology (8) Discharge planning issues Current Visit: Yes Status: Acute Plan to address problem: - LTAC evaluation ongoing - if AMS persist's (and reportedly a h/o DT's) he may well need a tracheostomy ...he is critically ill on life sustaining interventions including MVS and at high risk for further deterioration including ...33' CCT Subjective Date of service: 12/16/16 Principal diagnosis: Acute hypoxemic respiratory failure, shock Interval history: Seen and examined at bedside; 24 hour events reviewed; nursing and respiratory care staff consulted; no adverse overnight events reported to me;decompensated yesterday and intubated; sedated now; no emesis or overt aspiration; on ativan at 3 mg/hr but with significant tachypnea Objective Vital Signs - 12hr 12/15/16 12/16/16 12/16/16 23:01 00:00 00:06 Temperature Pulse Rate 128 H 124 H 126 H Pulse Rate [ None] Respiratory 32 H 32 H Rate Blood Pressure 133/41 154/85 133/41 O2 Sat by Pulse 95 96 96 Oximetry 12/16/16 12/16/16 12/16/16 01:00 01:01 02:00 Temperature 103.0 F H Pulse Rate 120 H 121 H Pulse Rate [ None] Respiratory 32 H 32 H Rate Blood Pressure 98/48 119/41 O2 Sat by Pulse 95 95 Oximetry 12/16/16 12/16/16 12/16/16 03:00 04:00 05:00 Temperature 103 F H Pulse Rate 123 H 125 H 125 H Pulse Rate [ None] Respiratory 32 H 33 H 33 H Rate Blood Pressure 116/47 140/44 126/47 O2 Sat by Pulse 95 95 96 Oximetry 12/16/16 12/16/16 12/16/16 05:02 06:00 07:00 Temperature Pulse Rate 125 H 130 H 133 H Pulse Rate [ None] Respiratory 35 H 34 H Rate Blood Pressure 140/44 111/45 135/39 O2 Sat by Pulse 95 92 92 Oximetry 12/16/16 12/16/16 12/16/16 08:00 09:00 09:25 Temperature 104.5 F H Pulse Rate 117 H 135 H 136 H Pulse Rate [ 135 H None] Respiratory 34 H 34 H Rate Blood Pressure 125/76 125/76 125/76 O2 Sat by Pulse 96 93 Oximetry Constitutional: appears uncomfortable, other (sedated) Eyes: non-icteric ENT: oropharynx moist Neck: supple, no lymphadenopathy, no JVD Effort: mildly labored Ascultation: Bilateral: diminished breath sounds, rhonchi Cardiovascular: regular rate and rhythm Gastrointestinal: normoactive bowel sounds, soft, non-tender, non-distended Integumentary: normal Extremities: no cyanosis, no edema, pink and warm, pulses normal, no ischemia or petechiae Neurologic: non-focal exam (grossly), pupils equal and round, unable to assess Psychiatric: other (sedated) CBC and BMP: 12/14/16 18:03 12/16/16 09:40 ABG, PT/INR, D-dimer: ABG POC ABG pH 7.392 (7.35-7.45) 12/16/16 05:18 POC ABG pCO2 32.5 (35-45) L 12/16/16 05:18 POC ABG pO2 87 (80-105) 12/16/16 05:18 POC ABG HCO3 19.8 12/16/16 05:18 POC ABG Total CO2 21 12/16/16 05:18 POC ABG O2 Sat 97 12/16/16 05:18 PT/INR, D-dimer PT 14.0 Sec. (12.2-14.9) 12/06/16 16:07 INR 1.09 (0.87-1.13) 12/06/16 16:07 D-Dimer 586.01 ng/mlDDU (0-234) H 12/14/16 18:03 Abnormal lab findings: Abnormal Labs 12/07/16 12/07/16 12/07/16 00:35 05:30 05:30 RDW 13.0 L Plt Count 93 L [place] % (Auto) 11.2 H [place] # 1.1 H Seg Neutrophils % 71.3 H D-Dimer POC ABG pH POC ABG pCO2 POC ABG pO2 Sodium Chloride BUN Creatinine 0.6 L Glucose 168 H POC Glucose Calcium 7.8 L Direct Bilirubin 0.7 H Total Creatine Kinase 343 H C-Reactive Protein Albumin 2.6 L TSH 12/07/16 12/07/16 12/07/16 06:58 16:41 18:30 RDW Plt Count [place] % (Auto) [place] # Seg Neutrophils % D-Dimer POC ABG pH POC ABG pCO2 POC ABG pO2 Sodium Chloride BUN Creatinine Glucose POC Glucose 175 H Calcium Direct Bilirubin Total Creatine Kinase 242 H C-Reactive Protein 7.70 H Albumin TSH 12/09/16 12/10/16 12/10/16 11:58 06:05 12:24 RDW Plt Count [place] % (Auto) [place] # Seg Neutrophils % D-Dimer POC ABG pH 7.485 H POC ABG pCO2 POC ABG pO2 Sodium Chloride BUN Creatinine Glucose POC Glucose 141 H 183 H Calcium Direct Bilirubin Total Creatine Kinase C-Reactive Protein Albumin TSH 12/10/16 12/10/16 12/11/16 17:47 23:21 06:10 RDW Plt Count [place] % (Auto) [place] # Seg Neutrophils % D-Dimer POC ABG pH POC ABG pCO2 POC ABG pO2 Sodium Chloride BUN Creatinine Glucose POC Glucose 176 H 240 H 252 H Calcium Direct Bilirubin Total Creatine Kinase C-Reactive Protein Albumin [facility] 12/11/16 12/11/16 12/11/16 08:29 09:14 11:37 RDW 13.1 L Plt Count [place] % (Auto) [place] # Seg Neutrophils % D-Dimer POC ABG pH POC ABG pCO2 POC ABG pO2 Sodium Chloride BUN Creatinine Glucose POC Glucose 253 H 284 H Calcium Direct Bilirubin Total Creatine Kinase C-Reactive Protein Albumin [facility] 12/11/16 12/11/16 12/11/16 16:12 17:54 23:35 RDW Plt Count [place] % (Auto) [place] # Seg Neutrophils % D-Dimer POC ABG pH POC ABG pCO2 POC ABG pO2 Sodium Chloride BUN 37 H Creatinine Glucose 258 H POC Glucose 227 H 264 H Calcium 8.3 L Direct Bilirubin Total Creatine Kinase C-Reactive Protein Albumin 2.6 L [facility] 12/12/16 12/12/16 12/12/16 04:37 06:06 10:12 RDW Plt Count [place] % (Auto) [place] # Seg Neutrophils % D-Dimer POC ABG pH 7.500 H POC ABG pCO2 POC ABG pO2 69 L Sodium Chloride BUN Creatinine Glucose POC Glucose 288 H Calcium Direct Bilirubin Total Creatine Kinase C-Reactive Protein Albumin [facility] 12/12/16 12/12/16 12/12/16 13:08 17:46 23:31 RDW Plt Count [place] % (Auto) [place] # Seg Neutrophils % D-Dimer POC ABG pH POC ABG pCO2 POC ABG pO2 Sodium Chloride BUN Creatinine Glucose POC Glucose 215 H 234 H 241 H Calcium Direct Bilirubin Total Creatine Kinase C-Reactive Protein Albumin [facility] 12/13/16 12/13/16 12/13/16 05:38 11:44 17:32 RDW Plt Count [place] % (Auto) [place] # Seg Neutrophils % D-Dimer POC ABG pH POC ABG pCO2 POC ABG pO2 Sodium Chloride BUN Creatinine Glucose POC Glucose 215 H 237 H 215 H Calcium Direct Bilirubin Total Creatine Kinase C-Reactive Protein Albumin [facility] 12/14/16 12/14/16 12/14/16 00:22 05:40 12:03 RDW Plt Count [place] % (Auto) [place] # Seg Neutrophils % D-Dimer POC ABG pH POC ABG pCO2 POC ABG pO2 Sodium Chloride BUN Creatinine Glucose POC Glucose 268 H 301 H 312 H Calcium Direct Bilirubin Total Creatine Kinase C-Reactive Protein Albumin TSH 12/14/16 12/14/16 12/14/16 18:03 18:03 18:03 RDW 12.9 L Plt Count [place] % (Auto) 8.0 H [place] # Seg Neutrophils % 72.4 H D-Dimer 586.01 H POC ABG pH POC ABG pCO2 POC ABG pO2 Sodium 150 H Chloride 109.1 H BUN 50 H Creatinine Glucose 261 H POC Glucose Calcium Direct Bilirubin Total Creatine Kinase C-Reactive Protein Albumin TSH 12/14/16 12/14/16 12/14/16 18:30 21:55 23:59 RDW Plt Count [place] % (Auto) [place] # Seg Neutrophils % D-Dimer POC ABG pH POC ABG pCO2 POC ABG pO2 Sodium Chloride BUN Creatinine Glucose POC Glucose 321 H 258 H 262 H Calcium Direct Bilirubin Total Creatine Kinase C-Reactive Protein Albumin TSH 12/15/16 12/15/16 12/15/16 05:28 06:04 09:15 RDW Plt Count [place] % (Auto) [place] # Seg Neutrophils % D-Dimer POC ABG pH POC ABG pCO2 POC ABG pO2 Sodium Chloride BUN Creatinine Glucose POC Glucose 274 H 276 H Calcium Direct Bilirubin Total Creatine Kinase C-Reactive Protein Albumin TSH 0.220 L 12/15/16 12/15/16 12/15/16 11:59 13:40 18:06 RDW Plt Count [place] % (Auto) [place] # Seg Neutrophils % D-Dimer POC ABG pH POC ABG pCO2 33.3 L POC ABG pO2 70 L Sodium Chloride BUN Creatinine Glucose POC Glucose 273 H Calcium Direct Bilirubin Total Creatine Kinase C-Reactive Protein Albumin TSH 0.204 L 12/15/16 12/15/16 12/16/16 18:14 21:26 02:08 RDW Plt Count [place] % (Auto) [place] # Seg Neutrophils % D-Dimer POC ABG pH 7.341 L POC ABG pCO2 POC ABG pO2 223 H Sodium Chloride BUN Creatinine Glucose POC Glucose 234 H 371 H Calcium Direct Bilirubin Total Creatine Kinase C-Reactive Protein Albumin TSH 12/16/16 12/16/16 05:12 05:18 RDW Plt Count [place] % (Auto) [place] # Seg Neutrophils % D-Dimer POC ABG pH POC ABG pCO2 32.5 L POC ABG pO2 Sodium Chloride BUN Creatinine Glucose POC Glucose 357 H Calcium Direct Bilirubin Total Creatine Kinase C-Reactive Protein Albumin TSH Chest x-ray: image reviewed Allied health notes reviewed: RT
[2016-12-16 10:34] LABS: BUN/Creatinine Ratio 30.66; Calcium 8.2 mg/dL (8.4-10.2); Chloride 116.8 mmol/L (98-107)
[2016-12-16] MEDS ORDERED: AMIDATE IV ONE (11:04)
[2016-12-16] MEDS ORDERED: QUELICIN ONE (11:04)
[2016-12-16] MEDS ORDERED: ZEMURON IV ONE (11:05)
[2016-12-16] MEDS ORDERED: LEVEMIR SUB-Q ONE (13:00)
--- NOTE | 2016-12-16 14:37 | Progress Note ---
Assessment and Plan Assessment and plan: Septic shock - Sepsis protocol: Pressor support as clinically indicated, ivf, abx, supportive care, monitor uop q shift - liklely due to underlying PNA Acute Respiratory failure - intubated now, Pulmonary following, - periodic breathing treatment, Systolic CHF, acute on chronic - Cardiology consulted, supportive care for now. - on beta aries, aspirin, add statin BRITTANY - monitor renal function carefully - gentle hydration as has h/o CHF - nephrology consult Diabetes type 2 tube feeding, insulin, accu check PNA, with Strep Pneumoniae - cont abx, sent another set for culture Bacteremia - one out of two cx positive for micrococcus - on clindamycin and levaquin Febrile illness - repeat cx - cont abx - stop haldol and seroquel for possible drug fever Sinus tachycardia - place on metoprolol iv Hypernatremia - give free water with tube feeding - monitor BMP The high probability of a clinically significant, sudden or life threatening deterioration of the [respiratory, cardiac] system(s) required my full and direct attention, intervention and personal management. The aggregate critical care time was [44] minutes. This time is in addition to time spent performing reported procedures but includes the following: [x] Data Review and interpretation [x] Patient assessment and monitoring of vital signs [x] Documentation [x] Medication orders and management Microbiology 12/16/16 10:00 Sputum - Expectorated Sputum Sputum Culture - Preliminary 12/15/16 21:20 Sputum - Expectorated Sputum Sputum Culture - Final 12/06/16 16:07 Peripheral/Venous Blood Culture - Final Micrococcus Species 12/06/16 17:44 Peripheral/Venous Blood Culture - Final NO GROWTH AFTER 5 DAYS 12/06/16 16:35 Tracheal Aspirate Sputum Culture - Final Streptococcus Pneumoniae 12/06/16 15:30 Urine,Catheterized - Indwelling Catheter Urine Culture - Final NO GROWTH AFTER 48 HOURS History Interval history: Pt seen and examined, remained intubated, Body temp 104f this morning. creatinine and Na elevated in morning lab. Also noted to be tachycardic on monitor. Hospitalist Physical - Constitutional Vitals: Temp Pulse Resp BP Pulse Ox 104.5 F H 135 H 38 H 110/31 95 12/16/16 09:00 12/16/16 12:01 12/16/16 12:01 12/16/16 12:01 12/16/16 12:01 General appearance: Present: mild distress, obese, other (orally intubated.) - EENT Eyes: Present: conjunctival injection. Absent: irregular pupil, scleral icterus ENT: dentition normal, no thrush, no ulcerations - Neck Neck: Absent: rigidity, enlarged thyroid, cervical LAD - Respiratory Respiratory: bilateral: rales - Cardiovascular Rhythm: other (tachycardic) Heart Sounds: Present: S1 & S2 - Extremities Extremities: no ischemia, pulses intact Peripheral Pulses: within normal limits - Abdominal General gastrointestinal: soft, non-tender, non-distended, normal bowel sounds - Integumentary Integumentary: Present: warm, dry - Neurologic Neurologic: other (sedated) Results - Labs CBC & Chem 7: 12/17/16 06:45 12/17/16 06:45 Labs: Laboratory Last Values WBC 10.3 K/mm3 (4.5-11.0) 12/14/16 18:03 RBC 4.32 M/mm3 (3.65-5.03) 12/14/16 18:03 Hgb 12.9 gm/dl (11.8-15.2) 12/14/16 18:03 Hct 38.7 % (35.5-45.6) 12/14/16 18:03 MCV 90 fl (84-94) 12/14/16 18:03 MCH 30 pg (28-32) 12/14/16 18:03 MCHC 33 % (32-34) 12/14/16 18:03 RDW 12.9 % (13.2-15.2) L 12/14/16 18:03 Plt Count 229 K/mm3 (140-440) 12/14/16 18:03 Lymph % (Auto) 17.8 % (13.4-35.0) 12/14/16 18:03 [place] % (Auto) 8.0 % (0.0-7.3) H 12/14/16 18:03 Eos % (Auto) 0.8 % (0.0-4.3) 12/14/16 18:03 Baso % (Auto) 1.0 % (0.0-1.8) 12/14/16 18:03 Lymph # 1.8 K/mm3 (1.2-5.4) 12/14/16 18:03 [place] # 0.8 K/mm3 (0.0-0.8) 12/14/16 18:03 Eos # 0.1 K/mm3 (0.0-0.4) 12/14/16 18:03 Baso # 0.1 K/mm3 (0.0-0.1) 12/14/16 18:03 Seg Neutrophils % 72.4 % (40.0-70.0) H 12/14/16 18:03 Seg Neutrophils # 7.5 K/mm3 (1.8-7.7) 12/14/16 18:03 PT 14.0 Sec. (12.2-14.9) 12/06/16 16:07 INR 1.09 (0.87-1.13) 12/06/16 16:07 APTT 29.1 Sec. (24.2-36.6) 12/06/16 16:07 D-Dimer 586.01 ng/mlDDU (0-234) H 12/14/16 18:03 POC ABG pH 7.392 (7.35-7.45) 12/16/16 05:18 POC ABG pCO2 32.5 (35-45) L 12/16/16 05:18 POC ABG pO2 87 (80-105) 12/16/16 05:18 POC ABG HCO3 19.8 12/16/16 05:18 POC ABG Total CO2 21 12/16/16 05:18 POC ABG O2 Sat 97 12/16/16 05:18 POC ABG Base Excess -5 12/16/16 05:18 FiO2 40 % 12/16/16 05:18 Sodium 154 mmol/L (137-145) H 12/16/16 09:40 Potassium 5.0 mmol/L (3.6-5.0) D 12/16/16 09:40 Chloride 116.8 mmol/L (98-107) H 12/16/16 09:40 Carbon Dioxide 18 mmol/L (22-30) L D 12/16/16 09:40 Anion Gap 24 mmol/L 12/16/16 09:40 BUN 92 mg/dL (9-20) H 12/16/16 09:40 Creatinine 3.0 mg/dL (0.8-1.5) H D 12/16/16 09:40 Estimated GFR 21 ml/min 12/16/16 09:40 BUN/Creatinine Ratio 30.66 % 12/16/16 09:40 Glucose 364 mg/dL (75-100) H 12/16/16 09:40 POC Glucose 391 (70-105) H 12/16/16 13:40 Lactic Acid 1.4 mmol/L (0.7-2.0) 12/15/16 13:40 Calcium 8.2 mg/dL (8.4-10.2) L 12/16/16 09:40 Phosphorus 3.0 mg/dL (2.5-4.5) 12/07/16 05:30 Magnesium 1.9 mg/dL (1.7-2.3) 12/07/16 05:30 Total Bilirubin 0.9 mg/dL (0.1-1.2) 12/11/16 16:12 Direct Bilirubin 0.7 mg/dL (0-0.2) H 12/07/16 05:30 Indirect Bilirubin 0.4 mg/dL 12/07/16 05:30 AST 30 units/L (5-40) 12/11/16 16:12 ALT 14 units/L (7-56) 12/11/16 16:12 Alkaline Phosphatase 44 units/L (35-129) 12/11/16 16:12 Ammonia 42.0 umol/L (25-60) 12/06/16 16:07 Total Creatine Kinase 242 units/L (55-170) H 12/07/16 06:58 CK-MB (CK-2) 2.8 ng/mL (0.0-4.0) 12/07/16 06:58 CK-MB (CK-2) Rel Index 1.1 (0-4) 12/07/16 06:58 Troponin T < 0.010 ng/mL (0.00-0.029) 12/07/16 06:58 C-Reactive Protein 1.20 mg/dL (0.00-1.30) 12/15/16 11:37 Total Protein 7.6 g/dL (6.3-8.2) 12/11/16 16:12 Albumin 2.6 g/dL (3.9-5) L 12/11/16 16:12 Albumin/Globulin Ratio 0.5 % 12/11/16 16:12 Vitamin B12 815.1 pg/mL (211-911) 12/15/16 09:15 TSH 0.204 mlU/mL (0.270-4.200) L 12/15/16 13:40 Free T4 1.16 ng/dL (0.76-1.46) 12/15/16 13:40 Urine Color Winsome (Yellow) 12/06/16 15:30 Urine Turbidity Clear (Clear) 12/06/16 15:30 Urine pH 6.0 (5.0-7.0) 12/06/16 15:30 Ur Specific [place] 1.017 (1.003-1.030) 12/06/16 15:30 Urine Protein 100 mg/dl mg/dL (Negative) 12/06/16 15:30 Urine Glucose (UA) 50 mg/dL (Negative) 12/06/16 15:30 Urine Ketones Neg mg/dL (Negative) 12/06/16 15:30 Urine Blood Sm (Negative) 12/06/16 15:30 Urine Nitrite Neg (Negative) 12/06/16 15:30 Urine Bilirubin Neg (Negative) 12/06/16 15:30 Urine Urobilinogen 4.0 mg/dL (<2.0) 12/06/16 15:30 Ur Leukocyte Esterase Neg (Negative) 12/06/16 15:30 Urine WBC (Auto) < 1.0 /HPF (0.0-6.0) 12/06/16 15:30 Urine RBC (Auto) 4.0 /HPF (0.0-6.0) 12/06/16 15:30 Urine Mucus Few /HPF 12/06/16 15:30 Salicylates < 0.3 mg/dL (2.8-20.0) L 12/06/16 16:07 Urine Opiates Screen Presumptive negative 12/06/16 15:30 Urine Methadone Screen Presumptive negative 12/06/16 15:30 Acetaminophen < 15.0 ug/mL (10.0-30.0) 12/06/16 16:07 Ur Barbiturates Screen Presumptive negative 12/06/16 15:30 Ur Phencyclidine Scrn Presumptive negative 12/06/16 15:30 Ur Amphetamines Screen Presumptive negative 12/06/16 15:30 U Benzodiazepines Scrn Presumptive negative 12/06/16 15:30 Urine Cocaine Screen Presumptive negative 12/06/16 15:30 U Marijuana (THC) Screen Presumptive negative 12/06/16 15:30 Drugs of Abuse Note Disclamer 12/06/16 15:30 Plasma/Serum Alcohol < 0.01 gm% (0-0.07) 12/06/16 16:07
[2016-12-16] MEDS: fentaNYL DRIP Premix 2,000 MCG/100 ML BAG IV SCH (14:42)
[2016-12-16] MEDS ORDERED: LOPRESSOR IV PRN (15:23)
[2016-12-16] MEDS ORDERED: D5NS 0.2% 1,000 ML IV SCH (16:00)
[2016-12-16] MEDS ORDERED: VERSED/NS 100MG/100ML 100 MG/100 ML BAG IV SCH (18:00)
--- NOTE | 2016-12-16 18:44 | Consultation ---
History of Present Illness - Reason for Consult Consult date: 12/16/16 acute renal failure, hypernatremia Requesting physician: SHANIA RICO - History of Present Illness This is a 61yo M with past medical history of ischemic cardiomyopathy with ejection fraction of 35%, hypertension, dyslipidemia type 2 diabetes mellitus, long standing tobacco use, who was initially brought to the emergency room on after found at home by his ex- with altered level of consciousness and confusion. Patient was unable to protect airway and was promptly intubated and placed on ventilatory support. patient was found to have pneumonia with persistent fever. IV antibiotics was started including initially ceftriaxone and zithromax, then levaquin. patient was initially started on lasix gtt given h /o ischemic cardiomyopathy with low EF. however patient developed septic shock with persistent high degree fever and hypotensive episodes with BP as low as 60/ 40s. Labs showed worsening renal function with BUN/Cr rising up to 92/3mg/dl on 12/16 compared to admission Cr of 0.6mg/dl with developing oliguria. renal consult requested for management of BRITTANY. Pt seen and examined in the ICU, pt on vent support, sedated. Past History Past Medical History: CAD, diabetes, heart failure (systolic dysfunction ejection fraction 10-15%), hypertension Past Surgical History: PTCA Social history: smoking Family history: CAD, hypertension Medications and Allergies Allergies Allergy/AdvReac Type Severity Reaction Status Date / Time No Known Allergies Allergy Verified 08/09/14 20:15 Home Medications Medication Instructions Recorded Confirmed Last Taken Type Aspirin [Aspirin TAB] 81 mg PO QDAY #30 tablet 01/28/15 12/06/16 1 Day Ago Rx Furosemide [Lasix TAB] 20 mg PO DAILY #30 tablet 01/28/15 12/06/16 1 Day Ago Rx ISOSORBIDE MONOnitrate [Imdur ER] 30 mg PO DAILY #30 tablet 01/28/15 12/06/16 1 Day Ago Rx Lisinopril [Zestril] 2.5 mg PO QDAY #30 tablet 01/28/15 12/06/16 1 Day Ago Rx Metoprolol [Lopressor TAB] 12.5 mg PO BID #60 tablet 01/28/15 12/06/16 1 Day Ago Rx Pantoprazole [Protonix TAB] 20 mg PO BID #60 tablet 01/28/15 12/06/16 1 Day Ago Rx Simvastatin [Zocor TAB] 20 mg PO QHS #30 tablet 01/28/15 12/06/16 1 Day Ago Rx Magnesium Oxide [Mag-Ox] 400 mg PO QDAY #5 tablet 02/02/16 12/06/16 1 Day Ago Rx Active Meds: Active Medications Acetaminophen (Tylenol) 650 mg MI Q4H PRN PRN Reason: Pain, Mild (1-3) Last Admin: 12/12/16 18:08 Dose: 650 mg Acetaminophen (Tylenol) 650 mg FEEDTUBE Q6H PRN PRN Reason: Fever >101 Last Admin: 12/16/16 13:56 Dose: 650 mg Albuterol/Ipratropium (Duoneb 0.5 Mg-3 Mg/3 Ml Soln) 1 ampul IH Q6HRT [facility] Last Admin: 12/16/16 15:43 Dose: 1 ampul Lipase/Protease/Amylase (Pancreaze Dr 10,500 Unit) 1 each FEEDTUBE PRN PRN PRN Reason: For Clogged Feeding Tube Aspirin (Baby Aspirin) 81 mg PO QDAY [facility] Last Admin: 12/16/16 09:25 Dose: 81 mg Enoxaparin Sodium (Lovenox) 40 mg SUB-Q QDAY@2200 [facility] Last Admin: 12/15/16 21:59 Dose: 40 mg Folic Acid (Folvite) 1 mg PO QDAY [facility] Last Admin: 12/16/16 09:25 Dose: 1 mg Hydrophilic Ointment (Vaseline Lip Therapy) 1 applic TP Q2HR PRN PRN Reason: Dry Lips Last Admin: 12/07/16 12:44 Dose: 1 applic Levofloxacin/Dextrose (Levaquin 750mg/150ml) 750 mg in 150 mls @ 100 mls/hr IV Q24HR [facility] Last Admin: 12/16/16 09:25 Dose: 100 mls/hr Vancomycin HCl (Vancomycin/Ns 1 Gm/250 Ml) 1 gm in 250 mls @ 167.007 mls/hr IV Q8H [facility] PRN Reason: Protocol Last Admin: 12/16/16 11:07 Dose: 167.007 mls/hr Clindamycin HCl (Cleocin 600 Mg/50 Ml) 600 mg in 50 mls @ 100 mls/hr IV Q8HR [facility] PRN Reason: Protocol Stop: 12/21/16 21:59 Last Admin: 12/16/16 13:53 Dose: 100 mls/hr Phenylephrine HCl 100 mg/ (Sodium Chloride) 100 mls @ 3 mls/hr IV TITR [facility]; 50 MCG/MIN PRN Reason: Protocol Lorazepam 100 mg/ Sodium Chloride/ Miscellaneous Information 100 mls @ 1 mls/ hr IV TITR [facility]; 1 MG/HR PRN Reason: Protocol Last Admin: 12/15/16 22:07 Dose: 4 mg/hr, 4 mls/hr Fentanyl Citrate (Fentanyl Drip Premix) 2,000 mcg in 100 mls @ 4.875 mls/hr IV TITR [facility]; 1 MCG/KG/HR PRN Reason: Protocol Last Titration: 12/16/16 17:31 Dose: 4 mcg/kg/hr, 19.5 mls/hr Dextrose/Sodium Chloride (D5ns 0.2%) 1,000 mls @ 50 mls/hr IV DIRECT [facility] Midazolam HCl (Versed/Ns 100mg/100ml) 100 mg in 100 mls @ 1 mls/hr IV TITR [facility] ; 1 MG/HR PRN Reason: Protocol Sodium Chloride (Nacl 0.45% 1000 Ml) 1,000 mls @ 75 mls/hr IV DIRECT [facility] Stop: 12/17/16 18:59 Ibuprofen (Motrin) 600 mg PO Q6H PRN PRN Reason: Fever >101 Last Admin: 12/15/16 21:58 Dose: 600 mg Insulin Detemir (Levemir) 35 units SUB-Q QAMDIAB [facility] Insulin Human Regular (Novolin R) 0 units SUB-Q Q6HR [facility] PRN Reason: Protocol Last Admin: 12/16/16 13:54 Dose: 6 units Metoprolol Tartrate (Lopressor) 25 mg PO BID [facility] Last Admin: 12/16/16 09:25 Dose: 25 mg Metoprolol Tartrate (Lopressor) 5 mg IV Q6HR PRN PRN Reason: Tachyarrhythmias Multi-Ingred Cream/Lotion/Oil/Oint (Artificial Tears Ophth Oint) 1 applic OU Q4HR PRN PRN Reason: Dry Eye(s) Multivitamins (Centrum Liq) 5 ml PO QDAY [facility] Last Admin: 12/16/16 09:25 Dose: 5 ml Pantoprazole (Protonix) 40 mg FEEDTUBE DAILY [facility] Last Admin: 12/16/16 09:25 Dose: 40 mg Simple Syrup (Simple Syrup) 15 ml FEEDTUBE PRN PRN PRN Reason: Hypoglycemia Simple Syrup (Simple Syrup) 30 ml FEEDTUBE PRN PRN PRN Reason: Hypoglycemia Simvastatin (Zocor) 20 mg PO QHS [facility] Last Admin: 12/15/16 21:59 Dose: 20 mg Sodium Bicarbonate (Sodium Bicarbonate) 325 mg FEEDTUBE PRN PRN PRN Reason: For Clogged Feeding Tube Thiamine HCl (Vitamin B-1) 100 mg PO QDAY [facility] Last Admin: 12/16/16 09:25 Dose: 100 mg Review of Systems ROS unobtainable: due to endotracheal tube, due to mental status Exam - Vital Signs Vital signs: Vital Signs Temp Pulse Resp BP Pulse Ox 101.1 F H 134 H 28 H 125/81 100 12/06/16 15:10 12/06/16 15:10 12/06/16 15:10 12/06/16 15:10 12/06/16 15:10 - General Appearance General appearance: sedated on ventilator, intubated EENT: ATNC, PERRL, mucous membranes moist Neck: Present: neck supple Respiratory: Decreased Breath Sounds Heart: regular, tachycardia, S1S2 Gastrointestinal: Present: normal, normoactive bowel sounds Integumentary: no rash, cool/clammy, other (no edema ) Neurologic: other (sedated, on vent ) Results - Lab Results 12/14/16 18:03 12/16/16 09:40 Most recent lab results Calcium 8.2 mg/dL (8.4-10.2) L 12/16/16 09:40 Phosphorus 3.0 mg/dL (2.5-4.5) 12/07/16 05:30 Magnesium 1.9 mg/dL (1.7-2.3) 12/07/16 05:30 Laboratory Tests 12/06/16 12/07/16 12/07/16 16:07 00:35 05:30 POC Glucose Lactic Acid Calcium 7.8 L Phosphorus 3.0 Magnesium 1.9 Total Bilirubin 1.1 Indirect Bilirubin 0.4 AST 27 ALT 14 Alkaline Phosphatase 49 Ammonia 42.0 Total Creatine Kinase 343 H CK-MB (CK-2) 3.2 CK-MB (CK-2) Rel Index 0.9 Troponin T < 0.010 Total Protein 6.7 Albumin 2.6 L Albumin/Globulin Ratio 0.6 TSH Free T4 12/07/16 12/08/16 12/15/16 06:58 04:35 13:40 POC Glucose Lactic Acid 1.2 Calcium Phosphorus Magnesium Total Bilirubin Indirect Bilirubin AST ALT Alkaline Phosphatase Ammonia Total Creatine Kinase 242 H CK-MB (CK-2) 2.8 CK-MB (CK-2) Rel Index 1.1 Troponin T < 0.010 Total Protein Albumin Albumin/Globulin Ratio TSH 0.204 L Free T4 1.16 12/16/16 12/16/16 09:40 13:40 POC Glucose 391 H Lactic Acid Calcium 8.2 L Phosphorus Magnesium Total Bilirubin Indirect Bilirubin AST ALT Alkaline Phosphatase Ammonia Total Creatine Kinase CK-MB (CK-2) CK-MB (CK-2) Rel Index Troponin T Total Protein Albumin Albumin/Globulin Ratio TSH Free T4 Assessment and Plan Assessment: 1. Acute renal failure due to acute tubular necrosis in the setting of septic shock / ischemic cardiomyopathy. 2. Septic shock 3. Pneumonia 4. Acute respiratory failure w/ hypoxia now on vent support 5. ischemic cardiomyopathy with EF 35% 6. Hypernatremia 7. metabolic acidosis, hyperchloremic 8. type 2 DM Plan/Recommendations: 1. given persistent hypotension, recommend IV NS boluses 250cc to keep MAP > 65mmHg. continue maintenance IVF w/ 1/2NS at 75ml/hr with close respiratory monitoring. will given albumin 25% x 3 doses to increase oncotic pressure, given hypoalbuminemia . currently FiO2 40% with fair oxygenation. if BP does not improve and oxgenation worsening will need to consider inotropic support. Will monitor electrolytes and renal parameters closely and assess need for HD in AM. 2. low threshold for renal replacement therapy if oliguria continues despite IVF resuscitation. 3. maintenance 1/2 NS at 75ml/hr to correct free water deficit. 4. continue vent support as per ICU team 5. continue ABXs as per ID. 6. Continue supportive care for BRITTANY/ATN avoid nephrotoxins, NSAIDs, IV contrast , keep MAP >65mmHg D/w RN regarding renal care plan. total CCM time spent 47min.
[2016-12-16] MEDS: NACL 0.45% 1000 ML 1,000 ML IV SCH ×2 (18:54→23:15)
--- NOTE | 2016-12-16 20:55 | Progress Note ---
Subjective Date of service: 12/16/16 Principal diagnosis: Acute hypoxemic respiratory failure, shock Interval history: Patient had fever of 104.5. PHYSICAL EXAM Vital signs - temp 104.5 chest - mild b/l rhonchi cvs - s1s2 abd - bs+ LABS See lab section ASSESSMENT 1. Fever likely not infection related may be medication related. 2. Pneumonia 3. Acute respiratory failure 4. Encephalopathy 5. CHF RECOMMENDATION 1. cbc/bmp in am 2. continue current antibiotics. Will reevaluate in am if fever persists. 3. d/c haloperidol Objective - Constitutional Vitals: Vital Signs Temp Pulse Resp BP Pulse Ox 104.5 F H 114 H 29 H 112/64 100 12/16/16 17:00 12/16/16 20:00 12/16/16 20:00 12/16/16 17:00 12/16/16 17:00 Temperature -Last 24 Hours Temperature 104.5 F Temperature 104.5 F Temperature 103 F Temperature 103.0 F Temperature 104.0 F - Labs CBC & Chem 7: 12/14/16 18:03 12/16/16 09:40 Labs: Abnormal lab results 12/15/16 12/16/16 12/16/16 Range/Units 21:26 02:08 05:12 POC ABG pH 7.341 L (7.35-7.45) POC ABG pCO2 (35-45) POC ABG pO2 223 H (80-105) Sodium (137-145) mmol/L Chloride (98-107) mmol/L Carbon Dioxide (22-30) mmol/L BUN (9-20) mg/dL Creatinine (0.8-1.5) mg/dL Glucose (75-100) mg/dL POC Glucose 371 H 357 H (70-105) Calcium (8.4-10.2) mg/dL Vancomycin Trough (5.0-20.0) ug/mL 12/16/16 12/16/16 12/16/16 Range/Units 05:18 09:40 13:40 POC ABG pH (7.35-7.45) POC ABG pCO2 32.5 L (35-45) POC ABG pO2 (80-105) Sodium 154 H (137-145) mmol/L Chloride 116.8 H (98-107) mmol/L Carbon Dioxide 18 L D (22-30) mmol/L BUN 92 H (9-20) mg/dL Creatinine 3.0 H D (0.8-1.5) mg/dL Glucose 364 H (75-100) mg/dL POC Glucose 391 H (70-105) Calcium 8.2 L (8.4-10.2) mg/dL Vancomycin Trough (5.0-20.0) ug/mL 12/16/16 Range/Units 18:34 POC ABG pH (7.35-7.45) POC ABG pCO2 (35-45) POC ABG pO2 (80-105) Sodium (137-145) mmol/L Chloride (98-107) mmol/L Carbon Dioxide (22-30) mmol/L BUN (9-20) mg/dL Creatinine (0.8-1.5) mg/dL Glucose (75-100) mg/dL POC Glucose (70-105) Calcium (8.4-10.2) mg/dL Vancomycin Trough 33.7 H (5.0-20.0) ug/mL
[2016-12-16] MEDS ORDERED: NACL 0.9% 500 ML 1,000 ML ONE (21:45)
[2016-12-16] MEDS ORDERED: NACL 0.9% 1000 ML 1,000 ML IV ONE ×2 (21:53→23:10)
[2016-12-16] MEDS: ZOCOR PO SCH (22:00)
[2016-12-16] MEDS: LOVENOX SUB-Q SCH (22:00)
[2016-12-16] MEDS: MOTRIN PO PRN (22:19)
[2016-12-16] MEDS: ALBURX 25% (ALBUMIN) IV SCH (22:22)
--- NOTE | 2016-12-17 00:57 | XRay Report ---
FINAL REPORT PROCEDURE: XR CHEST 1V AP TECHNIQUE: Chest radiograph anteroposterior view. CPT 21440 HISTORY: CENTRAL LINE IN SUBCLAVIAN COMPARISON: 12/16/2016 FINDINGS: Heart: Normal. Mediastinum/Vessels: Normal. Lungs/Pleural space: Normal. Bony thorax: No acute osseous abnormality. Life support devices: The endotracheal tube ends at the evan. The nasogastric tube ends below the hemidiaphragms. The upper thorax is not well evaluated on this study. There appears to be a central catheter on the right this ends at the junction of the subclavian and superior vena cava. This is not well evaluated on this study. No pneumothorax is seen.. IMPRESSION: There is no evidence of acute infiltrate or effusion. No pneumothorax. The endotracheal tube ends at the evan. This could be retracted for more appropriate placement. The nasogastric tube ends below the hemidiaphragms. A suspected right central catheter ends at the junction of the subclavian and superior vena cava. This area is not well evaluated on this study..
[2016-12-17] MEDS: VANCOMYCIN/NS 1 GM/250 ML 1 GM/250 ML BAG IV SCH (01:17)
[2016-12-17] MEDS ORDERED: LEVOPHED DRIP 4 MG/NS 250 ML 4 MG/250 ML BAG IV ONE (01:24)
[2016-12-17 02:00] LABS: ISTAT Base Excess -13; ISTAT HCO3 14.6; ISTAT PCO2 34.5 (35-45); ISTAT PH 7.234 (7.35-7.45); ISTAT PO2 50 (80-105); ISTAT SO2 79; ISTAT TCO2 16
[2016-12-17] MEDS: LEVOPHED DRIP 4 MG/NS 250 ML 4 MG/250 ML BAG IV SCH ×4 (02:00→07:32)
--- NOTE | 2016-12-17 06:14 | Procedure Note ---
Date of procedure: 12/17/16 Pre-op diagnosis: Hypotensive, respiratory failure Post-op diagnosis: same Procedure: Sublclavian central line placement Anesthesia: local Pathology: none (patient required better IV access. I was asked to place a subclavian catheter. This was done under sterile technique using a triple- lumen catheter tray. Seldinger technique was used subclavian on the right was cannulated good blood return from all 3 ports. Was sutured in place sterilely taken care of. Repeat x-ray demonstrated appropriate placement.)
[2016-12-17] MEDS: DUONEB 0.5 MG-3 MG/3 ML SOLN IH SCH ×4 (06:34→22:19)
[2016-12-17] MEDS: TYLENOL FEEDTUBE PRN ×2 (06:56→14:50)
[2016-12-17] MEDS: CLEOCIN 600 MG/50 mL 600 MG/50 ML BAG IV SCH ×2 (06:56→14:10)
[2016-12-17] MEDS: ALBURX 25% (ALBUMIN) IV SCH ×2 (06:57→14:14)
[2016-12-17 07:09] LABS: Basophils % (Auto) 1.4 % (0.0-1.8); Hematocrit 37.7 % (35.5-45.6); Hemoglobin 11.7 gm/dl (11.8-15.2); Mean Corpuscular HGB Conc 31 % (32-34); Mean Corpuscular Hemoglobin 30 pg (28-32); Mean Corpuscular Volume 97 fl (84-94); Platelet Count 235 K/mm3 (140-440); White Blood Count 12.3 K/mm3 (4.5-11.0)
[2016-12-17 07:32] LABS: Albumin 2.3 g/dL (3.9-5); Albumin/Globulin Ratio 0.5 %; Bilirubin,Total 0.6 mg/dL (0.1-1.2); Chloride 110.8 mmol/L (98-107); Total Protein 6.6 g/dL (6.3-8.2)
[2016-12-17 07:40] LABS: BUN/Creatinine Ratio 22.4
[2016-12-17 07:41] LABS: Calcium 6.2 mg/dL (8.4-10.2); Potassium 7.6 mmol/L (3.6-5.0)
[2016-12-17] MEDS: PITRESSin 20 UNIT in NACL 0.9% 100 ML IV SCH ×3 (07:59→21:28)
[2016-12-17] MEDS ORDERED: LEVEMIR SUB-Q SCH (08:00)
[2016-12-17] MEDS ORDERED: KIONEX PO PRN (08:23)
[2016-12-17] MEDS ORDERED: D50W (25GM) IV PRN (08:23)
[2016-12-17] MEDS ORDERED: INTROPIN DRIP 800 MG/D5W 250 ML 800 MG/250 ML BAG IV SCH (09:00)
[2016-12-17] MEDS ORDERED: CALCIUM CHLORIDE IV ONE (09:00)
[2016-12-17] MEDS: NovoLIN R 100 UNITS in NACL 0.9% 99 ML IV SCH ×5 (09:29→23:20)
[2016-12-17] MEDS: LEVOPHED 8 MG in NACL 0.9% 250ML 242 ML IV SCH ×3 (09:30→20:48)
--- NOTE | 2016-12-17 09:34 | Progress Note ---
Assessment and Plan Acute respiratory failure s/p extubation Sepsis Pneumonia Altered mental status Acute renal failure Hyperkalemia Chronic systolic heart failure Ischemic cardiomyopathy Echo this admission demonstrates left ventricular ejection fraction 35%. Hx of CAD [facility] 2014: patent mid LAD stent, patent diagonal branch stent, patent mid obtuse marginal stent. Nonobstructive disease of the RCA. EF 30-35%. Subjective Date of service: 12/17/16 Principal diagnosis: Acute hypoxemic respiratory failure, shock Interval history: Patient remains intubated on the vent. Patient with high grade fever and hypotensive. On pressors. Worsening renal function, creatinine 5.4. Objective Vital Signs Temp Pulse Pulse Pulse Pulse Resp Resp 12/17/16 08:45 110 H 35 H 12/17/16 08:30 110 H 36 H 12/17/16 08:15 110 H 35 H 12/17/16 08:00 103.5 F H 110 H 12/17/16 07:45 111 H 12/17/16 07:30 111 H 12/17/16 07:15 111 H 12/17/16 07:00 111 H 37 H 12/17/16 06:45 110 H 35 H 12/17/16 06:30 111 H 36 H 12/17/16 06:15 113 H 36 H 12/17/16 06:03 114 H 12/17/16 06:00 115 H 36 H 12/17/16 05:45 115 H 37 H 12/17/16 05:30 115 H 37 H 12/17/16 05:15 116 H 37 H 12/17/16 05:00 115 H 38 H 12/17/16 04:45 116 H 37 H 12/17/16 04:30 116 H 37 H 12/17/16 04:15 117 H 37 H 12/17/16 04:00 103.0 F H 117 H 37 H 12/17/16 03:45 117 H 36 H 12/17/16 03:37 109 H 30 H 12/17/16 03:30 117 H 36 H 12/17/16 03:15 116 H 37 H 12/17/16 03:00 117 H 36 H 12/17/16 02:45 117 H 36 H 12/17/16 02:30 118 H 36 H 12/17/16 02:15 118 H 35 H 12/17/16 02:00 118 H 36 H 12/17/16 01:45 117 H 34 H 12/17/16 01:30 118 H 36 H 12/17/16 01:15 118 H 36 H 12/17/16 01:00 117 H 35 H 12/17/16 00:45 118 H 35 H 12/17/16 00:30 117 H 36 H 12/17/16 00:15 117 H 33 H 12/17/16 00:00 98.6 F 116 H 79 33 H 12/16/16 23:45 117 H 31 H 12/16/16 23:30 118 H 31 H 12/16/16 23:15 119 H 33 H 12/16/16 23:00 120 H 34 H 12/16/16 22:45 118 H 32 H 12/16/16 22:30 120 H 35 H 12/16/16 22:19 119 H 12/16/16 22:15 118 H 121 H 32 H 12/16/16 22:00 117 H 119 H 30 H 34 H 12/16/16 21:59 114 H 12/16/16 21:45 117 H 29 H 12/16/16 21:30 117 H 31 H 12/16/16 21:15 118 H 29 H 12/16/16 21:00 103.4 F H 116 H 28 H 12/16/16 20:45 115 H 28 H 12/16/16 20:31 114 H 27 H 12/16/16 20:00 103.4 F H 114 H 29 H 12/16/16 17:00 104.5 F H 138 H 133 H 36 H 12/16/16 16:01 137 H 37 H 12/16/16 16:00 134 H 133 H 34 H 12/16/16 15:48 137 H 12/16/16 15:45 102 H 32 H 12/16/16 15:01 138 H 38 H 12/16/16 14:00 141 H 38 H 12/16/16 13:55 137 H 12/16/16 13:01 139 H 39 H 12/16/16 12:01 135 H 38 H 12/16/16 12:00 130 H 12/16/16 11:00 128 H 34 H 12/16/16 10:05 110 H 20 12/16/16 10:00 117 H 36 H 12/16/16 09:50 112 H 20 BP Pulse Ox 12/17/16 08:45 93/39 100 12/17/16 08:30 89/45 98 12/17/16 08:15 85/42 100 12/17/16 08:00 84/42 100 12/17/16 07:45 80/34 100 12/17/16 07:30 85/38 100 12/17/16 07:15 84/38 100 12/17/16 07:00 84/42 100 12/17/16 06:45 85/40 100 12/17/16 06:30 89/41 100 12/17/16 06:15 93/45 99 12/17/16 06:03 95/49 95 12/17/16 06:00 94/48 99 12/17/16 05:45 95/45 99 12/17/16 05:30 97/44 94 12/17/16 05:15 87/45 95 12/17/16 05:00 101/49 96 12/17/16 04:45 83/45 97 12/17/16 04:30 91/44 99 12/17/16 04:15 87/44 97 12/17/16 04:00 84/44 96 12/17/16 03:45 88/45 99 12/17/16 03:37 98 12/17/16 03:30 91/46 95 12/17/16 03:15 91/46 95 12/17/16 03:00 93/47 95 12/17/16 02:45 94/46 87 12/17/16 02:30 96/46 87 12/17/16 02:15 91/49 87 12/17/16 02:00 97/49 87 12/17/16 01:45 95/48 88 12/17/16 01:30 78/44 92 12/17/16 01:15 80/44 82 L 12/17/16 01:00 84/43 83 L 12/17/16 00:45 88/42 89 12/17/16 00:30 83/42 91 12/17/16 00:15 79/42 88 12/17/16 00:00 79/42 92 12/16/16 23:45 78/41 96 12/16/16 23:30 79/41 96 12/16/16 23:15 70/42 96 12/16/16 23:00 84/38 95 12/16/16 22:45 82/44 95 12/16/16 22:30 81/44 95 12/16/16 22:19 78/43 94 12/16/16 22:15 77/43 94 12/16/16 22:00 72/40 94 12/16/16 21:59 69/34 12/16/16 21:45 66/33 94 12/16/16 21:30 69/41 94 12/16/16 21:15 69/41 94 12/16/16 21:00 67/39 94 12/16/16 20:45 62/37 93 12/16/16 20:31 64/36 94 12/16/16 20:00 99 12/16/16 17:00 111/71 94 12/16/16 16:01 95/71 94 12/16/16 16:00 12/16/16 15:48 95/71 94 12/16/16 15:45 12/16/16 15:01 131/73 93 12/16/16 14:00 131/73 94 12/16/16 13:55 95/71 94 12/16/16 13:01 132/55 94 12/16/16 12:01 110/31 95 12/16/16 12:00 12/16/16 11:00 131/54 94 12/16/16 10:05 12/16/16 10:00 121/47 96 12/16/16 09:50 - Physical Examination General: Other (intubated) Cardiac: Positive: Tachycardia - Labs and Meds Cardiac Enzymes 12/17/16 Range/Units 06:45 AST 323 H (5-40) units/L CBC 12/17/16 Range/Units 06:45 WBC 12.3 H (4.5-11.0) K/mm3 RBC 3.90 (3.65-5.03) M/mm3 Hgb 11.7 L (11.8-15.2) gm/dl Hct 37.7 (35.5-45.6) % Plt Count 235 (140-440) K/mm3 Lymph # 2.1 (1.2-5.4) K/mm3 Mccone # 1.8 H (0.0-0.8) K/mm3 Eos # 0.0 (0.0-0.4) K/mm3 Baso # 0.2 H (0.0-0.1) K/mm3 Comprehensive Metabolic Panel 12/16/16 12/17/16 Range/Units 09:40 06:45 Sodium 154 H 144 D (137-145) mmol/L Potassium 5.0 D 7.6 H* D (3.6-5.0) mmol/L Chloride 116.8 H 110.8 H (98-107) mmol/L Carbon Dioxide 18 L D 14 L (22-30) mmol/L BUN 92 H 121 H (9-20) mg/dL Creatinine 3.0 H D 5.4 H D (0.8-1.5) mg/dL Glucose 364 H 566 H* (75-100) mg/dL Calcium 8.2 L 6.2 L D (8.4-10.2) mg/dL AST 323 H (5-40) units/L ALT 56 (7-56) units/L Alkaline Phosphatase 27 L (35-129) units/L Total Protein 6.6 (6.3-8.2) g/dL Albumin 2.3 L (3.9-5) g/dL - Allied health notes Allied health notes reviewed: RT
[2016-12-17 09:39] LABS: ISTAT Base Excess -15; ISTAT HCO3 14.8; ISTAT PCO2 46.1 (35-45); ISTAT PH 7.113 (7.35-7.45); ISTAT PO2 186 (80-105); ISTAT SO2 99; ISTAT TCO2 16
[2016-12-17] MEDS: SODIUM BICARBONATE IV ONE ×2 (09:45→10:58)
--- NOTE | 2016-12-17 09:53 | Progress Note ---
Assessment and Plan Assessment: 1. Acute renal failure due to acute tubular necrosis in the setting of septic shock / ischemic cardiomyopathy. 2. Septic shock 3. Pneumonia 4. Acute respiratory failure w/ hypoxia now on vent support 5. ischemic cardiomyopathy with EF 35% 6. Hyperkalemia 7. metabolic acidosis, hyperchloremic 8. type 2 DM Plan/Recommendations: 1. patient with hemodynamic deterioration, s/p multiple NS boluses and currently on 3 vasopressors, with vaso/max levo/dopamin. 2. with developing hyperkalemia/metabolic acidosis high FiO2 requirement at 100% , clear indication for renal replacement therapy. however, patient is too unstable to undergo HD at present. no CRRT available. Medical management for hyperkalemia, s/p 1 amp Iv bicarb push, Continue bicarb drip, insulin gtt started hyperglycemia/possible ketoacidosis. Overall prognosis is poor. 3. Continue supportive care for BRITTANY/ATN avoid nephrotoxins, NSAIDs, IV contrast , keep MAP >65mmHg. 4. continue vent support as per ICU team 5. continue ABXs as per ID. D/w RN regarding renal care plan. total CCM time spent 36min. Subjective Date of service: 12/17/16 Principal diagnosis: Acute hypoxemic respiratory failure, shock Interval history: Pt with hemodynamic deterioration overnight, s/p multiple NS boluses, currently on 3 vasopressors incl. vaso, max levo, dopamin gtt. Objective - Vital Signs Vital signs: Vital Signs - 12hr 12/16/16 12/16/16 12/16/16 21:45 21:59 22:00 Temperature Pulse Rate 117 H 114 H 117 H Pulse Rate [ 119 H Anterior Bilateral Throughout] Pulse Rate [ From Monitor] Respiratory 29 H 30 H Rate Respiratory 34 H Rate [Anterior Bilateral Throughout] Blood Pressure 66/33 69/34 72/40 O2 Sat by Pulse 94 94 Oximetry 12/16/16 12/16/16 12/16/16 22:15 22:19 22:30 Temperature Pulse Rate 118 H 119 H 120 H Pulse Rate [ 121 H Anterior Bilateral Throughout] Pulse Rate [ From Monitor] Respiratory 32 H 35 H Rate Respiratory Rate [Anterior Bilateral Throughout] Blood Pressure 77/43 78/43 81/44 O2 Sat by Pulse 94 94 95 Oximetry 12/16/16 12/16/16 12/16/16 22:45 23:00 23:15 Temperature Pulse Rate 118 H 120 H 119 H Pulse Rate [ Anterior Bilateral Throughout] Pulse Rate [ From Monitor] Respiratory 32 H 34 H 33 H Rate Respiratory Rate [Anterior Bilateral Throughout] Blood Pressure 82/44 84/38 70/42 O2 Sat by Pulse 95 95 96 Oximetry 12/16/16 12/16/16 12/17/16 23:30 23:45 00:00 Temperature 98.6 F Pulse Rate 118 H 117 H 116 H Pulse Rate [ Anterior Bilateral Throughout] Pulse Rate [ 79 From Monitor] Respiratory 31 H 31 H 33 H Rate Respiratory Rate [Anterior Bilateral Throughout] Blood Pressure 79/41 78/41 79/42 O2 Sat by Pulse 96 96 92 Oximetry 12/17/16 12/17/16 12/17/16 00:15 00:30 00:45 Temperature Pulse Rate 117 H 117 H 118 H Pulse Rate [ Anterior Bilateral Throughout] Pulse Rate [ From Monitor] Respiratory 33 H 36 H 35 H Rate Respiratory Rate [Anterior Bilateral Throughout] Blood Pressure 79/42 83/42 88/42 O2 Sat by Pulse 88 91 89 Oximetry 12/17/16 12/17/16 12/17/16 01:00 01:15 01:30 Temperature Pulse Rate 117 H 118 H 118 H Pulse Rate [ Anterior Bilateral Throughout] Pulse Rate [ From Monitor] Respiratory 35 H 36 H 36 H Rate Respiratory Rate [Anterior Bilateral Throughout] Blood Pressure 84/43 80/44 78/44 O2 Sat by Pulse 83 L 82 L 92 Oximetry 12/17/16 12/17/16 12/17/16 01:45 02:00 02:15 Temperature Pulse Rate 117 H 118 H 118 H Pulse Rate [ Anterior Bilateral Throughout] Pulse Rate [ From Monitor] Respiratory 34 H 36 H 35 H Rate Respiratory Rate [Anterior Bilateral Throughout] Blood Pressure 95/48 97/49 91/49 O2 Sat by Pulse 88 87 87 Oximetry 12/17/16 12/17/16 12/17/16 02:30 02:45 03:00 Temperature Pulse Rate 118 H 117 H 117 H Pulse Rate [ Anterior Bilateral Throughout] Pulse Rate [ From Monitor] Respiratory 36 H 36 H 36 H Rate Respiratory Rate [Anterior Bilateral Throughout] Blood Pressure 96/46 94/46 93/47 O2 Sat by Pulse 87 87 95 Oximetry 12/17/16 12/17/16 12/17/16 03:15 03:30 03:37 Temperature Pulse Rate 116 H 117 H Pulse Rate [ Anterior Bilateral Throughout] Pulse Rate [ 109 H From Monitor] Respiratory 37 H 36 H 30 H Rate Respiratory Rate [Anterior Bilateral Throughout] Blood Pressure 91/46 91/46 O2 Sat by Pulse 95 95 98 Oximetry 12/17/16 12/17/16 12/17/16 03:45 04:00 04:15 Temperature 103.0 F H Pulse Rate 117 H 117 H 117 H Pulse Rate [ Anterior Bilateral Throughout] Pulse Rate [ From Monitor] Respiratory 36 H 37 H 37 H Rate Respiratory Rate [Anterior Bilateral Throughout] Blood Pressure 88/45 84/44 87/44 O2 Sat by Pulse 99 96 97 Oximetry 12/17/16 12/17/16 12/17/16 04:30 04:45 05:00 Temperature Pulse Rate 116 H 116 H 115 H Pulse Rate [ Anterior Bilateral Throughout] Pulse Rate [ From Monitor] Respiratory 37 H 37 H 38 H Rate Respiratory Rate [Anterior Bilateral Throughout] Blood Pressure 91/44 83/45 101/49 O2 Sat by Pulse 99 97 96 Oximetry 12/17/16 12/17/16 12/17/16 05:15 05:30 05:45 Temperature Pulse Rate 116 H 115 H 115 H Pulse Rate [ Anterior Bilateral Throughout] Pulse Rate [ From Monitor] Respiratory 37 H 37 H 37 H Rate Respiratory Rate [Anterior Bilateral Throughout] Blood Pressure 87/45 97/44 95/45 O2 Sat by Pulse 95 94 99 Oximetry 12/17/16 12/17/16 12/17/16 06:00 06:03 06:15 Temperature Pulse Rate 115 H 114 H 113 H Pulse Rate [ Anterior Bilateral Throughout] Pulse Rate [ From Monitor] Respiratory 36 H 36 H Rate Respiratory Rate [Anterior Bilateral Throughout] Blood Pressure 94/48 95/49 93/45 O2 Sat by Pulse 99 95 99 Oximetry 12/17/16 12/17/16 12/17/16 06:30 06:45 07:00 Temperature Pulse Rate 111 H 110 H 111 H Pulse Rate [ Anterior Bilateral Throughout] Pulse Rate [ From Monitor] Respiratory 36 H 35 H 37 H Rate Respiratory Rate [Anterior Bilateral Throughout] Blood Pressure 89/41 85/40 84/42 O2 Sat by Pulse 100 100 100 Oximetry 12/17/16 12/17/16 12/17/16 07:15 07:30 07:45 Temperature Pulse Rate 111 H 111 H 111 H Pulse Rate [ Anterior Bilateral Throughout] Pulse Rate [ From Monitor] Respiratory Rate Respiratory Rate [Anterior Bilateral Throughout] Blood Pressure 84/38 85/38 80/34 O2 Sat by Pulse 100 100 100 Oximetry 12/17/16 12/17/16 12/17/16 08:00 08:15 08:30 Temperature 103.5 F H Pulse Rate 110 H 110 H 110 H Pulse Rate [ Anterior Bilateral Throughout] Pulse Rate [ From Monitor] Respiratory 35 H 36 H Rate Respiratory Rate [Anterior Bilateral Throughout] Blood Pressure 84/42 85/42 89/45 O2 Sat by Pulse 100 100 98 Oximetry 12/17/16 08:45 Temperature Pulse Rate 110 H Pulse Rate [ Anterior Bilateral Throughout] Pulse Rate [ From Monitor] Respiratory 35 H Rate Respiratory Rate [Anterior Bilateral Throughout] Blood Pressure 93/39 O2 Sat by Pulse 100 Oximetry - General Appearance General appearance: sedated on ventilator, intubated EENT: ATNC, mucous membranes dry Neck: no JVD Respiratory: Present: Rales, Ronchi, Decreased Breath Sounds Cardiology: regular, tachycardia, S1S2 Gastrointestinal: normal, normoactive bowel sounds Integumentary: no rash, other (+ edema ) Neurologic: other (sedated, intubated ) - Lab 12/17/16 06:45 12/17/16 06:45 Most recent lab results Calcium 6.2 mg/dL (8.4-10.2) L D 12/17/16 06:45 Phosphorus 3.0 mg/dL (2.5-4.5) 12/07/16 05:30 Magnesium 1.9 mg/dL (1.7-2.3) 12/07/16 05:30
[2016-12-17] MEDS ORDERED: SODIUM BICARBONATE IV ONE (10:00)
[2016-12-17] MEDS: SODIUM BICARBONATE 150 MEQ in D5W 1,000 ML IV SCH (10:22)
[2016-12-17 10:29] LABS: Anion Gap TNR mmol/L; BUN/Creatinine Ratio TNR; Blood Urea Nitrogen TNR mg/dL (9-20); Calcium TNR mg/dL (8.4-10.2); Carbon Dioxide TNR mmol/L (22-30); Chloride TNR mmol/L (98-107); Glucose TNR mg/dL (75-100); Potassium TNR mmol/L (3.6-5.0); Sodium TNR mmol/L (137-145)
[2016-12-17] MEDS: VITAMIN B-1 PO SCH (10:46)
[2016-12-17] MEDS: PROTONIX IV SCH (10:46)
[2016-12-17] MEDS: FOLVITE PO SCH (10:46)
[2016-12-17] MEDS: BABY ASPIRIN PO SCH (10:46)
[2016-12-17] MEDS: Centrum Liq PO SCH (10:47)
[2016-12-17] MEDS: LOPRESSOR PO SCH ×2 (10:47→23:19)
--- NOTE | 2016-12-17 10:47 | Progress Note ---
Assessment and Plan - Patient Problems (1) Acute hypoxemic respiratory failure Current Visit: Yes Status: Acute Plan to address problem: - intubated - continue aspiration precautions - continue bronchodilators and pulmonary toilet - wean FiO2 for sats > 94% - increase set rate to 30 and TV to 600mls re: acidosis - repeat ABG at 2 pm (2) Altered mental status Current Visit: Yes Status: Acute Qualifiers: Altered mental status type: A Coma depth: C Coma timing: C Plan to address problem: - seen by neurology - get EEG if none done this admission - prn sedation / benzo's - multi-factorial really including azotemia (3) Cardiomyopathy Current Visit: Yes Status: Acute Plan to address problem: - despite CHF history he is likely volume dependent while with sepsis syndrome - agree with stopping diuresis - continue volume resuscitation - otherwise as per cardiology (4) Septic shock Current Visit: Yes Status: Acute Plan to address problem: - continue AB's per ID recs - r/o VTE re: fevers (dopplers negative but may benefit from CTA once more stable) - continue volume resuscitation but with alkalanized fluids - wean vasopressors for MAP > 60-65mmHg (5) Atypical chest pain Current Visit: No Status: Acute Plan to address problem: - per cardiology (6) Diabetes Current Visit: No Status: Chronic Qualifiers: Diabetes mellitus type: D Diabetes mellitus complication status: D Diabetes mellitus complication detail: D Diabetic retinopathy severity: D Proliferative retinopathy type: P Diabetes mellitus macular edema: D Diabetes mellitus jail insulin use: D Laterality: L Chronic kidney disease stage: C Plan to address problem: - begin IV insulin therapy for strict glycemic control (7) BRITTANY (acute kidney injury) Current Visit: Yes Status: Acute Plan to address problem: - seen by nephrology - to get vas-cath - hopefully responds well to therapies and BP improves - may need CRRT otherwise - continue alkalanized fluids - hyperkalemia addressed (8) Discharge planning issues Current Visit: Yes Status: Acute Plan to address problem: - LTAC evaluation on hold for now ...he is critically ill on life sustaining interventions including MVS & vasopressors and at high risk for further deterioration including ...33' CCT Subjective Date of service: 12/17/16 Principal diagnosis: Acute hypoxemic respiratory failure, shock Interval history: Seen and examined at bedside; 24 hour events reviewed; nursing and respiratory care staff consulted; no adverse overnight events reported to me; de- compensated overnight; on multiple pressors now; azotemia is worsening; remains lethargic to obtunded; no gross bleeding and no reported seizures Objective Vital Signs - 12hr 12/16/16 12/16/16 12/16/16 23:00 23:15 23:30 Temperature Pulse Rate 120 H 119 H 118 H Pulse Rate [ From Monitor] Respiratory 34 H 33 H 31 H Rate Blood Pressure 84/38 70/42 79/41 O2 Sat by Pulse 95 96 96 Oximetry 12/16/16 12/17/16 12/17/16 23:45 00:00 00:15 Temperature 98.6 F Pulse Rate 117 H 116 H 117 H Pulse Rate [ 79 From Monitor] Respiratory 31 H 33 H 33 H Rate Blood Pressure 78/41 79/42 79/42 O2 Sat by Pulse 96 92 88 Oximetry 12/17/16 12/17/16 12/17/16 00:30 00:45 01:00 Temperature Pulse Rate 117 H 118 H 117 H Pulse Rate [ From Monitor] Respiratory 36 H 35 H 35 H Rate Blood Pressure 83/42 88/42 84/43 O2 Sat by Pulse 91 89 83 L Oximetry 12/17/16 12/17/16 12/17/16 01:15 01:30 01:45 Temperature Pulse Rate 118 H 118 H 117 H Pulse Rate [ From Monitor] Respiratory 36 H 36 H 34 H Rate Blood Pressure 80/44 78/44 95/48 O2 Sat by Pulse 82 L 92 88 Oximetry 12/17/16 12/17/16 12/17/16 02:00 02:15 02:30 Temperature Pulse Rate 118 H 118 H 118 H Pulse Rate [ From Monitor] Respiratory 36 H 35 H 36 H Rate Blood Pressure 97/49 91/49 96/46 O2 Sat by Pulse 87 87 87 Oximetry 12/17/16 12/17/16 12/17/16 02:45 03:00 03:15 Temperature Pulse Rate 117 H 117 H 116 H Pulse Rate [ From Monitor] Respiratory 36 H 36 H 37 H Rate Blood Pressure 94/46 93/47 91/46 O2 Sat by Pulse 87 95 95 Oximetry 12/17/16 12/17/16 12/17/16 03:30 03:37 03:45 Temperature Pulse Rate 117 H 117 H Pulse Rate [ 109 H From Monitor] Respiratory 36 H 30 H 36 H Rate Blood Pressure 91/46 88/45 O2 Sat by Pulse 95 98 99 Oximetry 12/17/16 12/17/16 12/17/16 04:00 04:15 04:30 Temperature 103.0 F H Pulse Rate 117 H 117 H 116 H Pulse Rate [ From Monitor] Respiratory 37 H 37 H 37 H Rate Blood Pressure 84/44 87/44 91/44 O2 Sat by Pulse 96 97 99 Oximetry 12/17/16 12/17/16 12/17/16 04:45 05:00 05:15 Temperature Pulse Rate 116 H 115 H 116 H Pulse Rate [ From Monitor] Respiratory 37 H 38 H 37 H Rate Blood Pressure 83/45 101/49 87/45 O2 Sat by Pulse 97 96 95 Oximetry 12/17/16 12/17/16 12/17/16 05:30 05:45 06:00 Temperature Pulse Rate 115 H 115 H 115 H Pulse Rate [ From Monitor] Respiratory 37 H 37 H 36 H Rate Blood Pressure 97/44 95/45 94/48 O2 Sat by Pulse 94 99 99 Oximetry 12/17/16 12/17/16 12/17/16 06:03 06:15 06:30 Temperature Pulse Rate 114 H 113 H 111 H Pulse Rate [ From Monitor] Respiratory 36 H 36 H Rate Blood Pressure 95/49 93/45 89/41 O2 Sat by Pulse 95 99 100 Oximetry 12/17/16 12/17/16 12/17/16 06:45 07:00 07:15 Temperature Pulse Rate 110 H 111 H 111 H Pulse Rate [ From Monitor] Respiratory 35 H 37 H Rate Blood Pressure 85/40 84/42 84/38 O2 Sat by Pulse 100 100 100 Oximetry 12/17/16 12/17/16 12/17/16 07:30 07:45 08:00 Temperature 103.5 F H Pulse Rate 111 H 111 H 110 H Pulse Rate [ 110 H From Monitor] Respiratory 36 H Rate Blood Pressure 85/38 80/34 84/42 O2 Sat by Pulse 100 100 100 Oximetry 12/17/16 12/17/16 12/17/16 08:15 08:30 08:45 Temperature Pulse Rate 110 H 110 H 110 H Pulse Rate [ From Monitor] Respiratory 35 H 36 H 35 H Rate Blood Pressure 85/42 89/45 93/39 O2 Sat by Pulse 100 98 100 Oximetry Constitutional: lethargic, appears uncomfortable Eyes: non-icteric ENT: oropharynx moist Neck: supple, no lymphadenopathy, no JVD Effort: very labored Ascultation: Bilateral: diminished breath sounds, rales Cardiovascular: regular rate and rhythm Gastrointestinal: normoactive bowel sounds, hypoactive bowel sounds, soft, non- tender, non-distended Integumentary: normal Extremities: no cyanosis, no edema, pink and warm, pulses normal, no ischemia or petechiae Neurologic: non-focal exam (grossly), pupils equal and round, unable to assess Psychiatric: other (sedated) CBC and BMP: 12/17/16 06:45 12/17/16 10:50 ABG, PT/INR, D-dimer: ABG POC ABG pH 7.113 (7.35-7.45) L 12/17/16 08:51 POC ABG pCO2 46.1 (35-45) H 12/17/16 08:51 POC ABG pO2 186 (80-105) H 12/17/16 08:51 POC ABG HCO3 14.8 12/17/16 08:51 POC ABG Total CO2 16 12/17/16 08:51 POC ABG O2 Sat 99 12/17/16 08:51 PT/INR, D-dimer PT 14.0 Sec. (12.2-14.9) 12/06/16 16:07 INR 1.09 (0.87-1.13) 12/06/16 16:07 D-Dimer 586.01 ng/mlDDU (0-234) H 12/14/16 18:03 Abnormal lab findings: Abnormal Labs 12/07/16 12/07/16 12/07/16 00:35 05:30 05:30 WBC Hgb MCV MCHC RDW 13.0 L Plt Count 93 L Carver % (Auto) 11.2 H Carver # 1.1 H Baso # Seg Neutrophils % 71.3 H Seg Neutrophils # D-Dimer POC ABG pH POC ABG pCO2 POC ABG pO2 Sodium Potassium Chloride Carbon Dioxide BUN Creatinine 0.6 L Glucose 168 H POC Glucose Calcium 7.8 L Direct Bilirubin 0.7 H AST Alkaline Phosphatase Total Creatine Kinase 343 H C-Reactive Protein Albumin 2.6 L TSH Vancomycin Trough 12/07/16 12/07/16 12/07/16 06:58 16:41 18:30 WBC Hgb MCV MCHC RDW Plt Count Carver % (Auto) Carver # Baso # Seg Neutrophils % Seg Neutrophils # D-Dimer POC ABG pH POC ABG pCO2 POC ABG pO2 Sodium Potassium Chloride Carbon Dioxide BUN Creatinine Glucose POC Glucose 175 H Calcium Direct Bilirubin AST Alkaline Phosphatase Total Creatine Kinase 242 H C-Reactive Protein 7.70 H Albumin TSH Vancomycin Trough 12/09/16 12/10/16 12/10/16 11:58 06:05 12:24 WBC Hgb MCV MCHC RDW Plt Count Carver % (Auto) Carver # Baso # Seg Neutrophils % Seg Neutrophils # D-Dimer POC ABG pH 7.485 H POC ABG pCO2 POC ABG pO2 Sodium Potassium Chloride Carbon Dioxide BUN Creatinine Glucose POC Glucose 141 H 183 H Calcium Direct Bilirubin AST Alkaline Phosphatase Total Creatine Kinase C-Reactive Protein Albumin TSH Vancomycin Trough 12/10/16 12/10/16 12/11/16 17:47 23:21 06:10 WBC Hgb MCV MCHC RDW Plt Count Carver % (Auto) Carver # Baso # Seg Neutrophils % Seg Neutrophils # D-Dimer POC ABG pH POC ABG pCO2 POC ABG pO2 Sodium Potassium Chloride Carbon Dioxide BUN Creatinine Glucose POC Glucose 176 H 240 H 252 H Calcium Direct Bilirubin AST Alkaline Phosphatase Total Creatine Kinase C-Reactive Protein Albumin TSH Vancomycin Trough 12/11/16 12/11/16 12/11/16 08:29 09:14 11:37 WBC Hgb MCV MCHC RDW 13.1 L Plt Count Carver % (Auto) Carver # Baso # Seg Neutrophils % Seg Neutrophils # D-Dimer POC ABG pH POC ABG pCO2 POC ABG pO2 Sodium Potassium Chloride Carbon Dioxide BUN Creatinine Glucose POC Glucose 253 H 284 H Calcium Direct Bilirubin AST Alkaline Phosphatase Total Creatine Kinase C-Reactive Protein Albumin TSH Vancomycin Trough 12/11/16 12/11/16 12/11/16 16:12 17:54 23:35 WBC Hgb MCV MCHC RDW Plt Count Carver % (Auto) Carver # Baso # Seg Neutrophils % Seg Neutrophils # D-Dimer POC ABG pH POC ABG pCO2 POC ABG pO2 Sodium Potassium Chloride Carbon Dioxide BUN 37 H Creatinine Glucose 258 H POC Glucose 227 H 264 H Calcium 8.3 L Direct Bilirubin AST Alkaline Phosphatase Total Creatine Kinase C-Reactive Protein Albumin 2.6 L TSH Vancomycin Trough 12/12/16 12/12/16 12/12/16 04:37 06:06 10:12 WBC Hgb MCV MCHC RDW Plt Count Carver % (Auto) Carver # Baso # Seg Neutrophils % Seg Neutrophils # D-Dimer POC ABG pH 7.500 H POC ABG pCO2 POC ABG pO2 69 L Sodium Potassium Chloride Carbon Dioxide BUN Creatinine Glucose POC Glucose 288 H Calcium Direct Bilirubin AST Alkaline Phosphatase Total Creatine Kinase C-Reactive Protein Albumin TSH Vancomycin Trough 12/12/16 12/12/16 12/12/16 13:08 17:46 23:31 WBC Hgb MCV MCHC RDW Plt Count Carver % (Auto) Carver # Baso # Seg Neutrophils % Seg Neutrophils # D-Dimer POC ABG pH POC ABG pCO2 POC ABG pO2 Sodium Potassium Chloride Carbon Dioxide BUN Creatinine Glucose POC Glucose 215 H 234 H 241 H Calcium Direct Bilirubin AST Alkaline Phosphatase Total Creatine Kinase C-Reactive Protein Albumin TSH Vancomycin Trough 12/13/16 12/13/16 12/13/16 05:38 11:44 17:32 WBC Hgb MCV MCHC RDW Plt Count Carver % (Auto) Carver # Baso # Seg Neutrophils % Seg Neutrophils # D-Dimer POC ABG pH POC ABG pCO2 POC ABG pO2 Sodium Potassium Chloride Carbon Dioxide BUN Creatinine Glucose POC Glucose 215 H 237 H 215 H Calcium Direct Bilirubin AST Alkaline Phosphatase Total Creatine Kinase C-Reactive Protein Albumin TSH Vancomycin Trough 12/14/16 12/14/16 12/14/16 00:22 05:40 12:03 WBC Hgb MCV MCHC RDW Plt Count Carver % (Auto) Carver # Baso # Seg Neutrophils % Seg Neutrophils # D-Dimer POC ABG pH POC ABG pCO2 POC ABG pO2 Sodium Potassium Chloride Carbon Dioxide BUN Creatinine Glucose POC Glucose 268 H 301 H 312 H Calcium Direct Bilirubin AST Alkaline Phosphatase Total Creatine Kinase C-Reactive Protein Albumin TSH Vancomycin Trough 12/14/16 12/14/16 12/14/16 18:03 18:03 18:03 WBC Hgb MCV MCHC RDW 12.9 L Plt Count Carver % (Auto) 8.0 H Carver # Baso # Seg Neutrophils % 72.4 H Seg Neutrophils # D-Dimer 586.01 H POC ABG pH POC ABG pCO2 POC ABG pO2 Sodium 150 H Potassium Chloride 109.1 H Carbon Dioxide BUN 50 H Creatinine Glucose 261 H POC Glucose Calcium Direct Bilirubin AST Alkaline Phosphatase Total Creatine Kinase C-Reactive Protein Albumin TSH Vancomycin Trough 12/14/16 12/14/16 12/14/16 18:30 21:55 23:59 WBC Hgb MCV MCHC RDW Plt Count Carver % (Auto) Carver # Baso # Seg Neutrophils % Seg Neutrophils # D-Dimer POC ABG pH POC ABG pCO2 POC ABG pO2 Sodium Potassium Chloride Carbon Dioxide BUN Creatinine Glucose POC Glucose 321 H 258 H 262 H Calcium Direct Bilirubin AST Alkaline Phosphatase Total Creatine Kinase C-Reactive Protein Albumin TSH Vancomycin Trough 12/15/16 12/15/16 12/15/16 05:28 06:04 09:15 WBC Hgb MCV MCHC RDW Plt Count Carver % (Auto) Carver # Baso # Seg Neutrophils % Seg Neutrophils # D-Dimer POC ABG pH POC ABG pCO2 POC ABG pO2 Sodium Potassium Chloride Carbon Dioxide BUN Creatinine Glucose POC Glucose 274 H 276 H Calcium Direct Bilirubin AST Alkaline Phosphatase Total Creatine Kinase C-Reactive Protein Albumin TSH 0.220 L Vancomycin Trough 12/15/16 12/15/16 12/15/16 11:59 13:40 18:06 WBC Hgb MCV MCHC RDW Plt Count Carver % (Auto) Carver # Baso # Seg Neutrophils % Seg Neutrophils # D-Dimer POC ABG pH POC ABG pCO2 33.3 L POC ABG pO2 70 L Sodium Potassium Chloride Carbon Dioxide BUN Creatinine Glucose POC Glucose 273 H Calcium Direct Bilirubin AST Alkaline Phosphatase Total Creatine Kinase C-Reactive Protein Albumin TSH 0.204 L Vancomycin Trough 12/15/16 12/15/16 12/16/16 18:14 21:26 02:08 WBC Hgb MCV MCHC RDW Plt Count Carver % (Auto) Carver # Baso # Seg Neutrophils % Seg Neutrophils # D-Dimer POC ABG pH 7.341 L POC ABG pCO2 POC ABG pO2 223 H Sodium Potassium Chloride Carbon Dioxide BUN Creatinine Glucose POC Glucose 234 H 371 H Calcium Direct Bilirubin AST Alkaline Phosphatase Total Creatine Kinase C-Reactive Protein Albumin TSH Vancomycin Trough 12/16/16 12/16/16 12/16/16 05:12 05:18 09:40 WBC Hgb MCV MCHC RDW Plt Count Carver % (Auto) Carver # Baso # Seg Neutrophils % Seg Neutrophils # D-Dimer POC ABG pH POC ABG pCO2 32.5 L POC ABG pO2 Sodium 154 H Potassium Chloride 116.8 H Carbon Dioxide 18 L D BUN 92 H Creatinine 3.0 H D Glucose 364 H POC Glucose 357 H Calcium 8.2 L Direct Bilirubin AST Alkaline Phosphatase Total Creatine Kinase C-Reactive Protein Albumin TSH Vancomycin Trough 12/16/16 12/16/16 12/16/16 13:40 18:27 18:34 WBC Hgb MCV MCHC RDW Plt Count Carver % (Auto) Carver # Baso # Seg Neutrophils % Seg Neutrophils # D-Dimer POC ABG pH POC ABG pCO2 POC ABG pO2 Sodium Potassium Chloride Carbon Dioxide BUN Creatinine Glucose POC Glucose 391 H 472 H Calcium Direct Bilirubin AST Alkaline Phosphatase Total Creatine Kinase C-Reactive Protein Albumin TSH Vancomycin Trough 33.7 H 12/17/16 12/17/16 12/17/16 00:38 01:54 05:53 WBC Hgb MCV MCHC RDW Plt Count Carver % (Auto) Carver # Baso # Seg Neutrophils % Seg Neutrophils # D-Dimer POC ABG pH 7.234 L POC ABG pCO2 34.5 L POC ABG pO2 50 L Sodium Potassium Chloride Carbon Dioxide BUN Creatinine Glucose POC Glucose 386 H 400 H Calcium Direct Bilirubin AST Alkaline Phosphatase Total Creatine Kinase C-Reactive Protein Albumin TSH Vancomycin Trough 12/17/16 12/17/16 12/17/16 06:45 06:45 08:51 WBC 12.3 H Hgb 11.7 L MCV 97 H D MCHC 31 L RDW Plt Count Carver % (Auto) 14.4 H Carver # 1.8 H Baso # 0.2 H Seg Neutrophils % Seg Neutrophils # 8.2 H D-Dimer POC ABG pH 7.113 L POC ABG pCO2 46.1 H POC ABG pO2 186 H Sodium Potassium 7.6 H* D Chloride 110.8 H Carbon Dioxide 14 L BUN 121 H Creatinine 5.4 H D Glucose 566 H* POC Glucose Calcium 6.2 L D Direct Bilirubin AST 323 H Alkaline Phosphatase 27 L Total Creatine Kinase C-Reactive Protein Albumin 2.3 L TSH Vancomycin Trough 12/17/16 12/17/16 09:11 10:18 WBC Hgb MCV MCHC RDW Plt Count Carver % (Auto) Carver # Baso # Seg Neutrophils % Seg Neutrophils # D-Dimer POC ABG pH POC ABG pCO2 POC ABG pO2 Sodium Potassium Chloride Carbon Dioxide BUN Creatinine Glucose POC Glucose > 500 H > 500 H Calcium Direct Bilirubin AST Alkaline Phosphatase Total Creatine Kinase C-Reactive Protein Albumin TSH Vancomycin Trough Allied health notes reviewed: RT
[2016-12-17 12:00] LABS: Chloride 110.1 mmol/L (98-107)
[2016-12-17 12:04] LABS: Calcium 9.6 mg/dL (8.4-10.2)
[2016-12-17 12:05] LABS: Potassium 6.1 mmol/L (3.6-5.0)
[2016-12-17 12:06] LABS: BUN/Creatinine Ratio 23.27
[2016-12-17 12:10] LABS: Magnesium 2.5 mg/dL (1.7-2.3); Phosphorous 9.5 mg/dL (2.5-4.5)
[2016-12-17] MEDS ORDERED: NACL 0.9% 500 ML 500 ML ONE (12:49)
[2016-12-17 13:14] LABS: Chloride 110.4 mmol/L (98-107); Potassium 5.6 mmol/L (3.6-5.0)
[2016-12-17 13:21] LABS: Calcium 6.8 mg/dL (8.4-10.2)
[2016-12-17 13:22] LABS: BUN/Creatinine Ratio 26.03
[2016-12-17] MEDS: REGLAN IV SCH ×2 (14:14→21:32)
[2016-12-17 14:33] LABS: ISTAT Base Excess -10; ISTAT HCO3 16.7; ISTAT PCO2 34.2 (35-45); ISTAT PH 7.297 (7.35-7.45); ISTAT PO2 114 (80-105); ISTAT SO2 98; ISTAT TCO2 18
[2016-12-17 15:41] LABS: Calcium 6.7 mg/dL (8.4-10.2); Chloride 109.3 mmol/L (98-107); Potassium 5.3 mmol/L (3.6-5.0)
[2016-12-17 15:47] LABS: BUN/Creatinine Ratio 23.27
--- NOTE | 2016-12-17 17:31 | Progress Note ---
Assessment and Plan Assessment and plan: Septic shock - Sepsis protocol: cont Pressor support, ivf, abx, supportive care, monitor uop q shift - liklely due to underlying PNA Acute Respiratory failure - intubated now, Pulmonary following, - periodic breathing treatment, Systolic CHF, acute on chronic - Cardiology consulted, supportive care for now. - on aspirin, add statin, hold beta aries as pt on septic shock BRITTANY - nephrology following - cont iv fluid - renal function worse today Hyperkalemia - K level 7.6 today - s/p bicarbonate, calcium chloride, kayexalate with tube - monitor BMP frequently Diabetes type 2 with DKA - place on insulin drip - cont tube feeding, monitor BG q1h PNA, with Strep Pneumoniae - cont abx, sent another set for culture Bacteremia - one out of two cx positive for micrococcus - on clindamycin and levaquin Febrile illness - repeat cx - cont abx - stop haldol and seroquel for possible drug fever Sinus tachycardia - due to septic shock - cont supportive care Hypernatremia - improved - monitor BMP The high probability of a clinically significant, sudden or life threatening deterioration of the [respiratory, cardiac] system(s) required my full and direct attention, intervention and personal management. The aggregate critical care time was [48] minutes. This time is in addition to time spent performing reported procedures but includes the following: [x] Data Review and interpretation [x] Patient assessment and monitoring of vital signs [x] Documentation [x] Medication orders and management Microbiology 12/16/16 10:00 Sputum - Expectorated Sputum Sputum Culture - Preliminary 12/15/16 21:20 Sputum - Expectorated Sputum Sputum Culture - Final 12/06/16 16:07 Peripheral/Venous Blood Culture - Final Micrococcus Species 12/06/16 17:44 Peripheral/Venous Blood Culture - Final NO GROWTH AFTER 5 DAYS 12/06/16 16:35 Tracheal Aspirate Sputum Culture - Final Streptococcus Pneumoniae 12/06/16 15:30 Urine,Catheterized - Indwelling Catheter Urine Culture - Final NO GROWTH AFTER 48 HOURS History Interval history: Pt seen and examined, remained intubated, renal function worse this am, K level 7.6 BG also noted to be 566, remained on pressor Hospitalist Physical - Physical exam Narrative exam: General appearance: Present: mild distress, obese, other (orally intubated.) - EENT Eyes: Present: conjunctival injection. Absent: irregular pupil, scleral icterus ENT: dentition normal, no thrush, no ulcerations - Neck Neck: Absent: rigidity, enlarged thyroid, cervical LAD - Respiratory Respiratory: bilateral: rales - Cardiovascular Rhythm: other (tachycardic) Heart Sounds: Present: S1 & S2 - Extremities Extremities: no ischemia, pulses intact Peripheral Pulses: within normal limits - Abdominal General gastrointestinal: soft, non-tender, non-distended, normal bowel sounds - Integumentary Integumentary: Present: warm, dry - Neurologic Neurologic: other (sedated) - Constitutional Vitals: Temp Pulse Resp BP Pulse Ox 101.8 F H 112 H 30 H 101/55 100 12/17/16 15:26 12/17/16 17:00 12/17/16 17:00 12/17/16 17:00 12/17/16 17:00 General appearance: Present: mild distress, obese, other (orally intubated.) Results - Labs CBC & Chem 7: 12/17/16 06:45 12/17/16 18:10 Labs: Laboratory Last Values WBC 12.3 K/mm3 (4.5-11.0) H 12/17/16 06:45 RBC 3.90 M/mm3 (3.65-5.03) 12/17/16 06:45 Hgb 11.7 gm/dl (11.8-15.2) L 12/17/16 06:45 Hct 37.7 % (35.5-45.6) 12/17/16 06:45 MCV 97 fl (84-94) H D 12/17/16 06:45 MCH 30 pg (28-32) 12/17/16 06:45 MCHC 31 % (32-34) L 12/17/16 06:45 RDW 15.0 % (13.2-15.2) 12/17/16 06:45 Plt Count 235 K/mm3 (140-440) 12/17/16 06:45 Lymph % (Auto) 17.2 % (13.4-35.0) 12/17/16 06:45 [place] % (Auto) 14.4 % (0.0-7.3) H 12/17/16 06:45 Eos % (Auto) 0.0 % (0.0-4.3) 12/17/16 06:45 Baso % (Auto) 1.4 % (0.0-1.8) 12/17/16 06:45 Lymph # 2.1 K/mm3 (1.2-5.4) 12/17/16 06:45 [place] # 1.8 K/mm3 (0.0-0.8) H 12/17/16 06:45 Eos # 0.0 K/mm3 (0.0-0.4) 12/17/16 06:45 Baso # 0.2 K/mm3 (0.0-0.1) H 12/17/16 06:45 Seg Neutrophils % 67.0 % (40.0-70.0) 12/17/16 06:45 Seg Neutrophils # 8.2 K/mm3 (1.8-7.7) H 12/17/16 06:45 PT 14.0 Sec. (12.2-14.9) 12/06/16 16:07 INR 1.09 (0.87-1.13) 12/06/16 16:07 APTT 29.1 Sec. (24.2-36.6) 12/06/16 16:07 D-Dimer 586.01 ng/mlDDU (0-234) H 12/14/16 18:03 POC ABG pH 7.297 (7.35-7.45) L 12/17/16 14:11 POC ABG pCO2 34.2 (35-45) L 12/17/16 14:11 POC ABG pO2 114 (80-105) H 12/17/16 14:11 POC ABG HCO3 16.7 12/17/16 14:11 POC ABG Total CO2 18 12/17/16 14:11 POC ABG O2 Sat 98 12/17/16 14:11 POC ABG Base Excess -10 12/17/16 14:11 FiO2 55 % 12/17/16 14:11 Sodium 146 mmol/L (137-145) H 12/17/16 14:45 Potassium 5.3 mmol/L (3.6-5.0) H 12/17/16 14:45 Chloride 109.3 mmol/L (98-107) H 12/17/16 14:45 Carbon Dioxide 15 mmol/L (22-30) L 12/17/16 14:45 Anion Gap 27 mmol/L 12/17/16 14:45 BUN 128 mg/dL (9-20) H 12/17/16 14:45 Creatinine 5.5 mg/dL (0.8-1.5) H 12/17/16 14:45 Estimated GFR 11 ml/min 12/17/16 14:45 BUN/Creatinine Ratio 23.27 % 12/17/16 14:45 Glucose 426 mg/dL (75-100) H 12/17/16 14:45 POC Glucose 352 (70-105) H 12/17/16 16:56 Lactic Acid 1.6 mmol/L (0.7-2.0) 12/17/16 06:45 Calcium 6.7 mg/dL (8.4-10.2) L 12/17/16 14:45 Phosphorus 9.5 mg/dL (2.5-4.5) H 12/17/16 09:10 Magnesium 2.5 mg/dL (1.7-2.3) H 12/17/16 09:10 Total Bilirubin 0.6 mg/dL (0.1-1.2) 12/17/16 06:45 Direct Bilirubin 0.7 mg/dL (0-0.2) H 12/07/16 05:30 Indirect Bilirubin 0.4 mg/dL 12/07/16 05:30 AST 323 units/L (5-40) H 12/17/16 06:45 ALT 56 units/L (7-56) 12/17/16 06:45 Alkaline Phosphatase 27 units/L (35-129) L 12/17/16 06:45 Ammonia 42.0 umol/L (25-60) 12/06/16 16:07 Total Creatine Kinase 242 units/L (55-170) H 12/07/16 06:58 CK-MB (CK-2) 2.8 ng/mL (0.0-4.0) 12/07/16 06:58 CK-MB (CK-2) Rel Index 1.1 (0-4) 12/07/16 06:58 Troponin T < 0.010 ng/mL (0.00-0.029) 12/07/16 06:58 C-Reactive Protein 1.20 mg/dL (0.00-1.30) 12/15/16 11:37 Total Protein 6.6 g/dL (6.3-8.2) 12/17/16 06:45 Albumin 2.3 g/dL (3.9-5) L 12/17/16 06:45 Albumin/Globulin Ratio 0.5 % 12/17/16 06:45 Vitamin B12 815.1 pg/mL (211-911) 12/15/16 09:15 TSH 0.204 mlU/mL (0.270-4.200) L 12/15/16 13:40 Free T4 1.16 ng/dL (0.76-1.46) 12/15/16 13:40 Urine Color Winsome (Yellow) 12/06/16 15:30 Urine Turbidity Clear (Clear) 12/06/16 15:30 Urine pH 6.0 (5.0-7.0) 12/06/16 15:30 Ur Specific [place] 1.017 (1.003-1.030) 12/06/16 15:30 Urine Protein 100 mg/dl mg/dL (Negative) 12/06/16 15:30 Urine Glucose (UA) 50 mg/dL (Negative) 12/06/16 15:30 Urine Ketones Neg mg/dL (Negative) 12/06/16 15:30 Urine Blood Sm (Negative) 12/06/16 15:30 Urine Nitrite Neg (Negative) 12/06/16 15:30 Urine Bilirubin Neg (Negative) 12/06/16 15:30 Urine Urobilinogen 4.0 mg/dL (<2.0) 12/06/16 15:30 Ur Leukocyte Esterase Neg (Negative) 12/06/16 15:30 Urine WBC (Auto) < 1.0 /HPF (0.0-6.0) 12/06/16 15:30 Urine RBC (Auto) 4.0 /HPF (0.0-6.0) 12/06/16 15:30 Urine Mucus Few /HPF 12/06/16 15:30 Vancomycin Trough 33.7 ug/mL (5.0-20.0) H 12/16/16 18:34 Salicylates < 0.3 mg/dL (2.8-20.0) L 12/06/16 16:07 Urine Opiates Screen Presumptive negative 12/06/16 15:30 Urine Methadone Screen Presumptive negative 12/06/16 15:30 Acetaminophen < 15.0 ug/mL (10.0-30.0) 12/06/16 16:07 Ur Barbiturates Screen Presumptive negative 12/06/16 15:30 Ur Phencyclidine Scrn Presumptive negative 12/06/16 15:30 Ur Amphetamines Screen Presumptive negative 12/06/16 15:30 U Benzodiazepines Scrn Presumptive negative 12/06/16 15:30 Urine Cocaine Screen Presumptive negative 12/06/16 15:30 U Marijuana (THC) Screen Presumptive negative 12/06/16 15:30 Drugs of Abuse Note Disclamer 12/06/16 15:30 Plasma/Serum Alcohol < 0.01 gm% (0-0.07) 12/06/16 16:07
[2016-12-17 18:43] LABS: Calcium 6.5 mg/dL (8.4-10.2); Chloride 109.7 mmol/L (98-107); Potassium 4.9 mmol/L (3.6-5.0)
[2016-12-17 18:50] LABS: BUN/Creatinine Ratio 26.92
[2016-12-17 19:36] LABS: ISTAT Base Excess -7; ISTAT HCO3 17.8; ISTAT PCO2 30.5 (35-45); ISTAT PH 7.375 (7.35-7.45); ISTAT PO2 134 (80-105); ISTAT SO2 99; ISTAT TCO2 19
[2016-12-17 20:18] LABS: INR 1.46 (0.87-1.13)
--- NOTE | 2016-12-17 20:53 | Progress Note ---
Subjective Date of service: 12/17/16 Principal diagnosis: Acute hypoxemic respiratory failure, shock Interval history: Patient continues to have fever. Temp 102.4 PHYSICAL EXAM Vital signs - temp 104.5 chest - mild b/l rhonchi cvs - s1s2 abd - bs+ LABS See lab section ASSESSMENT 1. Fever likely not infection related may be medication related. 2. Pneumonia 3. Acute respiratory failure 4. Encephalopathy 5. CHF RECOMMENDATION 1. cbc/bmp in am 2. d/c vancomycin, clindamycin and levaquin. Will start zyvox, zosyn and fluconazole. 3. repeat blood and sputum cultures. 4. cbc/bmp in am Objective - Constitutional Vitals: Vital Signs Temp Pulse Resp BP Pulse Ox 101.8 F H 111 H 31 H 115/62 100 12/17/16 15:26 12/17/16 18:15 12/17/16 18:15 12/17/16 18:15 12/17/16 18:15 Temperature -Last 24 Hours Temperature 101.8 F Temperature 102.7 F Temperature 103.5 F Temperature 103.0 F Temperature 98.6 F Temperature 103.4 F - Labs CBC & Chem 7: 12/17/16 06:45 12/17/16 18:10 Labs: Abnormal lab results 12/16/16 12/17/16 12/17/16 Range/Units 18:27 00:38 01:54 WBC (4.5-11.0) K/mm3 Hgb (11.8-15.2) gm/dl MCV (84-94) fl MCHC (32-34) % [place] % (Auto) (0.0-7.3) % [place] # (0.0-0.8) K/mm3 Baso # (0.0-0.1) K/mm3 Seg Neutrophils # (1.8-7.7) K/mm3 PT (12.2-14.9) Sec. INR (0.87-1.13) POC ABG pH 7.234 L (7.35-7.45) POC ABG pCO2 34.5 L (35-45) POC ABG pO2 50 L (80-105) Sodium (137-145) mmol/L Potassium (3.6-5.0) mmol/L Chloride (98-107) mmol/L Carbon Dioxide (22-30) mmol/L BUN (9-20) mg/dL Creatinine (0.8-1.5) mg/dL Glucose (75-100) mg/dL POC Glucose 472 H 386 H (70-105) Calcium (8.4-10.2) mg/dL Phosphorus (2.5-4.5) mg/dL Magnesium (1.7-2.3) mg/dL AST (5-40) units/L Alkaline Phosphatase (35-129) units/L Albumin (3.9-5) g/dL 12/17/16 12/17/16 12/17/16 Range/Units 05:53 06:45 06:45 WBC 12.3 H (4.5-11.0) K/mm3 Hgb 11.7 L (11.8-15.2) gm/dl MCV 97 H D (84-94) fl MCHC 31 L (32-34) % [place] % (Auto) 14.4 H (0.0-7.3) % [place] # 1.8 H (0.0-0.8) K/mm3 Baso # 0.2 H (0.0-0.1) K/mm3 Seg Neutrophils # 8.2 H (1.8-7.7) K/mm3 PT (12.2-14.9) Sec. INR (0.87-1.13) POC ABG pH (7.35-7.45) POC ABG pCO2 (35-45) POC ABG pO2 (80-105) Sodium (137-145) mmol/L Potassium 7.6 H* D (3.6-5.0) mmol/L Chloride 110.8 H (98-107) mmol/L Carbon Dioxide 14 L (22-30) mmol/L BUN 121 H (9-20) mg/dL Creatinine 5.4 H D (0.8-1.5) mg/dL Glucose 566 H* (75-100) mg/dL POC Glucose 400 H (70-105) Calcium 6.2 L D (8.4-10.2) mg/dL Phosphorus (2.5-4.5) mg/dL Magnesium (1.7-2.3) mg/dL AST 323 H (5-40) units/L Alkaline Phosphatase 27 L (35-129) units/L Albumin 2.3 L (3.9-5) g/dL 12/17/16 12/17/16 12/17/16 Range/Units 07:45 08:51 09:10 WBC (4.5-11.0) K/mm3 Hgb (11.8-15.2) gm/dl MCV (84-94) fl MCHC (32-34) % [place] % (Auto) (0.0-7.3) % [place] # (0.0-0.8) K/mm3 Baso # (0.0-0.1) K/mm3 Seg Neutrophils # (1.8-7.7) K/mm3 PT (12.2-14.9) Sec. INR (0.87-1.13) POC ABG pH 7.113 L (7.35-7.45) POC ABG pCO2 46.1 H (35-45) POC ABG pO2 186 H (80-105) Sodium (137-145) mmol/L Potassium (3.6-5.0) mmol/L Chloride (98-107) mmol/L Carbon Dioxide (22-30) mmol/L BUN (9-20) mg/dL Creatinine (0.8-1.5) mg/dL Glucose (75-100) mg/dL POC Glucose > 500 H (70-105) Calcium (8.4-10.2) mg/dL Phosphorus 9.5 H (2.5-4.5) mg/dL Magnesium 2.5 H (1.7-2.3) mg/dL AST (5-40) units/L Alkaline Phosphatase (35-129) units/L Albumin (3.9-5) g/dL 12/17/16 12/17/16 12/17/16 Range/Units 09:11 10:18 10:50 WBC (4.5-11.0) K/mm3 Hgb (11.8-15.2) gm/dl MCV (84-94) fl MCHC (32-34) % [place] % (Auto) (0.0-7.3) % [place] # (0.0-0.8) K/mm3 Baso # (0.0-0.1) K/mm3 Seg Neutrophils # (1.8-7.7) K/mm3 PT (12.2-14.9) Sec. INR (0.87-1.13) POC ABG pH (7.35-7.45) POC ABG pCO2 (35-45) POC ABG pO2 (80-105) Sodium (137-145) mmol/L Potassium 6.1 H* (3.6-5.0) mmol/L Chloride 110.1 H (98-107) mmol/L Carbon Dioxide 14 L (22-30) mmol/L BUN 128 H (9-20) mg/dL Creatinine 5.5 H (0.8-1.5) mg/dL Glucose 580 H* (75-100) mg/dL POC Glucose > 500 H > 500 H (70-105) Calcium (8.4-10.2) mg/dL Phosphorus (2.5-4.5) mg/dL Magnesium (1.7-2.3) mg/dL AST (5-40) units/L Alkaline Phosphatase (35-129) units/L Albumin (3.9-5) g/dL 12/17/16 12/17/16 12/17/16 Range/Units 11:17 12:09 12:30 WBC (4.5-11.0) K/mm3 Hgb (11.8-15.2) gm/dl MCV (84-94) fl MCHC (32-34) % [place] % (Auto) (0.0-7.3) % [place] # (0.0-0.8) K/mm3 Baso # (0.0-0.1) K/mm3 Seg Neutrophils # (1.8-7.7) K/mm3 PT (12.2-14.9) Sec. INR (0.87-1.13) POC ABG pH (7.35-7.45) POC ABG pCO2 (35-45) POC ABG pO2 (80-105) Sodium (137-145) mmol/L Potassium 5.6 H (3.6-5.0) mmol/L Chloride 110.4 H (98-107) mmol/L Carbon Dioxide 14 L (22-30) mmol/L BUN 138 H (9-20) mg/dL Creatinine 5.3 H (0.8-1.5) mg/dL Glucose 528 H* (75-100) mg/dL POC Glucose > 500 H 428 H (70-105) Calcium 6.8 L D (8.4-10.2) mg/dL Phosphorus (2.5-4.5) mg/dL Magnesium (1.7-2.3) mg/dL AST (5-40) units/L Alkaline Phosphatase (35-129) units/L Albumin (3.9-5) g/dL 12/17/16 12/17/16 12/17/16 Range/Units 13:36 14:11 14:25 WBC (4.5-11.0) K/mm3 Hgb (11.8-15.2) gm/dl MCV (84-94) fl MCHC (32-34) % [place] % (Auto) (0.0-7.3) % [place] # (0.0-0.8) K/mm3 Baso # (0.0-0.1) K/mm3 Seg Neutrophils # (1.8-7.7) K/mm3 PT (12.2-14.9) Sec. INR (0.87-1.13) POC ABG pH 7.297 L (7.35-7.45) POC ABG pCO2 34.2 L (35-45) POC ABG pO2 114 H (80-105) Sodium (137-145) mmol/L Potassium (3.6-5.0) mmol/L Chloride (98-107) mmol/L Carbon Dioxide (22-30) mmol/L BUN (9-20) mg/dL Creatinine (0.8-1.5) mg/dL Glucose (75-100) mg/dL POC Glucose 426 H 422 H (70-105) Calcium (8.4-10.2) mg/dL Phosphorus (2.5-4.5) mg/dL Magnesium (1.7-2.3) mg/dL AST (5-40) units/L Alkaline Phosphatase (35-129) units/L Albumin (3.9-5) g/dL 12/17/16 12/17/16 12/17/16 Range/Units 14:45 15:07 16:03 WBC (4.5-11.0) K/mm3 Hgb (11.8-15.2) gm/dl MCV (84-94) fl MCHC (32-34) % [place] % (Auto) (0.0-7.3) % [place] # (0.0-0.8) K/mm3 Baso # (0.0-0.1) K/mm3 Seg Neutrophils # (1.8-7.7) K/mm3 PT (12.2-14.9) Sec. INR (0.87-1.13) POC ABG pH (7.35-7.45) POC ABG pCO2 (35-45) POC ABG pO2 (80-105) Sodium 146 H (137-145) mmol/L Potassium 5.3 H (3.6-5.0) mmol/L Chloride 109.3 H (98-107) mmol/L Carbon Dioxide 15 L (22-30) mmol/L BUN 128 H (9-20) mg/dL Creatinine 5.5 H (0.8-1.5) mg/dL Glucose 426 H (75-100) mg/dL POC Glucose 392 H 450 H (70-105) Calcium 6.7 L (8.4-10.2) mg/dL Phosphorus (2.5-4.5) mg/dL Magnesium (1.7-2.3) mg/dL AST (5-40) units/L Alkaline Phosphatase (35-129) units/L Albumin (3.9-5) g/dL 12/17/16 12/17/16 12/17/16 Range/Units 16:56 18:00 18:10 WBC (4.5-11.0) K/mm3 Hgb (11.8-15.2) gm/dl MCV (84-94) fl MCHC (32-34) % [place] % (Auto) (0.0-7.3) % [place] # (0.0-0.8) K/mm3 Baso # (0.0-0.1) K/mm3 Seg Neutrophils # (1.8-7.7) K/mm3 PT (12.2-14.9) Sec. INR (0.87-1.13) POC ABG pH (7.35-7.45) POC ABG pCO2 (35-45) POC ABG pO2 (80-105) Sodium 147 H (137-145) mmol/L Potassium (3.6-5.0) mmol/L Chloride 109.7 H (98-107) mmol/L Carbon Dioxide 15 L (22-30) mmol/L BUN 140 H (9-20) mg/dL Creatinine 5.2 H (0.8-1.5) mg/dL Glucose 301 H (75-100) mg/dL POC Glucose 352 H 318 H (70-105) Calcium 6.5 L (8.4-10.2) mg/dL Phosphorus (2.5-4.5) mg/dL Magnesium (1.7-2.3) mg/dL AST (5-40) units/L Alkaline Phosphatase (35-129) units/L Albumin (3.9-5) g/dL 12/17/16 12/17/16 12/17/16 Range/Units 18:38 19:31 20:00 WBC (4.5-11.0) K/mm3 Hgb (11.8-15.2) gm/dl MCV (84-94) fl MCHC (32-34) % [place] % (Auto) (0.0-7.3) % [place] # (0.0-0.8) K/mm3 Baso # (0.0-0.1) K/mm3 Seg Neutrophils # (1.8-7.7) K/mm3 PT 17.7 H (12.2-14.9) Sec. INR 1.46 H (0.87-1.13) POC ABG pH (7.35-7.45) POC ABG pCO2 30.5 L (35-45) POC ABG pO2 134 H (80-105) Sodium (137-145) mmol/L Potassium (3.6-5.0) mmol/L Chloride (98-107) mmol/L Carbon Dioxide (22-30) mmol/L BUN (9-20) mg/dL Creatinine (0.8-1.5) mg/dL Glucose (75-100) mg/dL POC Glucose 256 H (70-105) Calcium (8.4-10.2) mg/dL Phosphorus (2.5-4.5) mg/dL Magnesium (1.7-2.3) mg/dL AST (5-40) units/L Alkaline Phosphatase (35-129) units/L Albumin (3.9-5) g/dL
[2016-12-17] MEDS: ZOCOR PO SCH (21:28)
[2016-12-17] MEDS: DIFLUCAN 200 MG/100 ML BAG IV SCH (21:28)
[2016-12-17] MEDS ORDERED: LOVENOX SUB-Q SCH (22:00)
--- NOTE | 2016-12-17 22:25 | Procedure Note ---
- Central Line Placement Right Femoral Consent Obtained: emergent situation Time Out Performed: Yes Patient Placed on Monitor/Pulse Ox: Yes MD Prep: mask, gown, gloves Central Line Prep: Povidone-Iodine 1%, Chlorhexidine scrub Local Anesthesia Used: Lidocaine 1% Amount of Anesthesia Used (mls): 5 Ultrasound Used for Placement: No Central Line Lumen Inserted: triple Bloods Obtained for Lab: No Central Line Position: good blood return, sutured in place with nyl Dressing Applied: Tegaderm Patient Tolerated Procedure: well Complications: none
[2016-12-17] MEDS: ZYVOX 600MG/300ML 600 MG/300 ML BAG IV SCH (23:04)
[2016-12-18] MEDS: ZOSYN/NS 2.25 GM/50ML 2.25 GM/50 ML BAG IV SCH ×4 (00:14→22:09)
[2016-12-18] MEDS: SODIUM BICARBONATE 150 MEQ in D5W 1,000 ML IV SCH (00:14)
[2016-12-18] MEDS: TYLENOL FEEDTUBE PRN (00:37)
[2016-12-18 00:53] LABS: Calcium 6.3 mg/dL (8.4-10.2); Chloride 107.9 mmol/L (98-107); Potassium 5.2 mmol/L (3.6-5.0)
[2016-12-18 01:03] LABS: BUN/Creatinine Ratio 25.53
[2016-12-18] MEDS: REGLAN IV SCH ×3 (05:58→22:10)
[2016-12-18 06:03] LABS: ISTAT Base Excess -3; ISTAT HCO3 20.7; ISTAT PCO2 27.5 (35-45); ISTAT PH 7.485 (7.35-7.45); ISTAT PO2 275 (80-105); ISTAT SO2 100; ISTAT TCO2 22
[2016-12-18] MEDS: DUONEB 0.5 MG-3 MG/3 ML SOLN IH SCH ×4 (06:31→20:22)
[2016-12-18 06:44] LABS: Basophils % (Auto) 0.8 % (0.0-1.8); Hemoglobin 9.6 gm/dl (11.8-15.2); Mean Corpuscular HGB Conc 33 % (32-34); Mean Corpuscular Hemoglobin 30 pg (28-32); Mean Corpuscular Volume 91 fl (84-94); Platelet Count 130 K/mm3 (140-440); Red Blood Count 3.18 M/mm3 (3.65-5.03); Red Cell Distribution Width 13.7 % (13.2-15.2); White Blood Count 8.6 K/mm3 (4.5-11.0)
[2016-12-18 06:52] LABS: INR 1.52 (0.87-1.13)
[2016-12-18] MEDS: BABY ASPIRIN PO SCH (09:21)
[2016-12-18] MEDS: VITAMIN B-1 PO SCH (09:22)
[2016-12-18] MEDS: PROTONIX IV SCH (09:22)
[2016-12-18] MEDS: Centrum Liq PO SCH (09:22)
[2016-12-18] MEDS: ZYVOX 600MG/300ML 600 MG/300 ML BAG IV SCH ×2 (09:22→22:11)
[2016-12-18] MEDS: FOLVITE PO SCH (09:22)
--- NOTE | 2016-12-18 09:40 | Progress Note ---
Assessment and Plan Assessment: 1. Acute renal failure due to acute tubular necrosis in the setting of septic shock / ischemic cardiomyopathy. 2. Septic shock 3. Pneumonia 4. Acute respiratory failure w/ hypoxia now on vent support 5. ischemic cardiomyopathy with EF 35% 6. Hyperkalemia 7. metabolic acidosis, lactic acidosis 8. type 2 DM 9. Hypocalcemia Plan/Recommendations: 1. patient with improved hemodynamics, currently only on vasopressin, BP improved. however pt remains oliguric, worsening azotemia with persistent hyperkalemia/met acidosis. Will consult vascular surgery for vascath placement and initiate HD for solute clearance/correction of met acidosis once access in place. 3. Continue supportive care for BRITTANY/ATN avoid nephrotoxins, NSAIDs, IV contrast , keep MAP >65mmHg. 4. continue vent support as per ICU team 5. continue ABXs as per ID. 6. on insulin gtt for glucose control. 7. Ca chloride for hypocalcemia, will use 2.5Ca bath w/ HD. D/w RN regarding renal care plan. total CCM time spent 38min. Subjective Date of service: 12/18/16 Principal diagnosis: Acute hypoxemic respiratory failure, shock Interval history: patient remains intubated, on vent support, sedated; with improved hemodynamics , now on only vasopressin with improved BP, Fio2 down to 50%. Objective - Vital Signs Vital signs: Vital Signs - 12hr 12/17/16 12/17/16 12/17/16 21:45 21:50 22:00 Temperature Pulse Rate 120 H 125 H 120 H Pulse Rate [ Anterior Bilateral Throughout] Pulse Rate [ 123 H From Monitor] Respiratory 33 H 31 H Rate Respiratory Rate [Anterior Bilateral Throughout] Blood Pressure 141/69 141/69 139/70 O2 Sat by Pulse 100 100 100 Oximetry 12/17/16 12/17/16 12/17/16 22:15 22:30 22:45 Temperature Pulse Rate 119 H 126 H 124 H Pulse Rate [ Anterior Bilateral Throughout] Pulse Rate [ From Monitor] Respiratory 30 H 30 H 28 H Rate Respiratory Rate [Anterior Bilateral Throughout] Blood Pressure 128/66 145/61 115/58 O2 Sat by Pulse 100 100 100 Oximetry 12/17/16 12/17/16 12/17/16 23:00 23:15 23:19 Temperature Pulse Rate 124 H 124 H 125 H Pulse Rate [ Anterior Bilateral Throughout] Pulse Rate [ From Monitor] Respiratory 28 H 28 H 25 H Rate Respiratory Rate [Anterior Bilateral Throughout] Blood Pressure 114/59 122/60 122/60 O2 Sat by Pulse 100 100 100 Oximetry 12/17/16 12/17/16 12/18/16 23:30 23:45 00:00 Temperature Pulse Rate 127 H 122 H 123 H Pulse Rate [ Anterior Bilateral Throughout] Pulse Rate [ From Monitor] Respiratory 28 H 28 H 30 H Rate Respiratory Rate [Anterior Bilateral Throughout] Blood Pressure 135/63 127/63 137/66 O2 Sat by Pulse 100 100 100 Oximetry 12/18/16 12/18/16 12/18/16 00:15 00:18 00:30 Temperature 102.8 F H Pulse Rate 121 H 120 H Pulse Rate [ Anterior Bilateral Throughout] Pulse Rate [ From Monitor] Respiratory 28 H 30 H Rate Respiratory Rate [Anterior Bilateral Throughout] Blood Pressure 133/64 118/59 O2 Sat by Pulse 100 100 Oximetry 12/18/16 12/18/16 12/18/16 00:33 00:45 01:00 Temperature Pulse Rate 122 H 119 H 118 H Pulse Rate [ Anterior Bilateral Throughout] Pulse Rate [ From Monitor] Respiratory 30 H 30 H Rate Respiratory Rate [Anterior Bilateral Throughout] Blood Pressure 133/64 104/59 107/61 O2 Sat by Pulse 100 91 97 Oximetry 12/18/16 12/18/16 12/18/16 01:15 01:30 01:45 Temperature Pulse Rate 118 H 120 H 118 H Pulse Rate [ Anterior Bilateral Throughout] Pulse Rate [ From Monitor] Respiratory 29 H 30 H 30 H Rate Respiratory Rate [Anterior Bilateral Throughout] Blood Pressure 113/61 120/62 124/61 O2 Sat by Pulse 96 96 97 Oximetry 12/18/16 12/18/16 12/18/16 02:00 02:15 02:30 Temperature Pulse Rate 119 H 119 H 120 H Pulse Rate [ Anterior Bilateral Throughout] Pulse Rate [ From Monitor] Respiratory 30 H 30 H 30 H Rate Respiratory Rate [Anterior Bilateral Throughout] Blood Pressure 111/61 111/63 110/65 O2 Sat by Pulse 96 97 99 Oximetry 12/18/16 12/18/16 12/18/16 02:45 03:00 03:15 Temperature Pulse Rate 118 H 117 H 116 H Pulse Rate [ Anterior Bilateral Throughout] Pulse Rate [ From Monitor] Respiratory 30 H 28 H 28 H Rate Respiratory Rate [Anterior Bilateral Throughout] Blood Pressure 110/65 101/61 101/61 O2 Sat by Pulse 100 98 Oximetry 12/18/16 12/18/16 12/18/16 03:30 03:45 04:00 Temperature Pulse Rate 116 H 115 H 112 H Pulse Rate [ Anterior Bilateral Throughout] Pulse Rate [ From Monitor] Respiratory 30 H 30 H 30 H Rate Respiratory Rate [Anterior Bilateral Throughout] Blood Pressure 111/63 111/63 106/54 O2 Sat by Pulse 99 99 100 Oximetry 12/18/16 12/18/16 12/18/16 04:15 04:21 04:30 Temperature 101.2 F H Pulse Rate 113 H 113 H Pulse Rate [ Anterior Bilateral Throughout] Pulse Rate [ 116 H From Monitor] Respiratory 31 H 33 H Rate Respiratory Rate [Anterior Bilateral Throughout] Blood Pressure 110/63 102/66 O2 Sat by Pulse 100 100 Oximetry 12/18/16 12/18/16 12/18/16 04:45 05:00 05:16 Temperature Pulse Rate 112 H 110 H 112 H Pulse Rate [ Anterior Bilateral Throughout] Pulse Rate [ From Monitor] Respiratory 30 H 26 H 35 H Rate Respiratory Rate [Anterior Bilateral Throughout] Blood Pressure 102/66 106/65 106/65 O2 Sat by Pulse 100 100 100 Oximetry 12/18/16 12/18/16 12/18/16 05:30 05:45 06:00 Temperature Pulse Rate 112 H 108 H 108 H Pulse Rate [ Anterior Bilateral Throughout] Pulse Rate [ 108 H From Monitor] Respiratory 34 H 28 H 32 H Rate Respiratory Rate [Anterior Bilateral Throughout] Blood Pressure 112/71 112/71 101/67 O2 Sat by Pulse 99 100 98 Oximetry 12/18/16 12/18/16 12/18/16 06:15 06:30 06:45 Temperature Pulse Rate 112 H 108 H 106 H Pulse Rate [ Anterior Bilateral Throughout] Pulse Rate [ From Monitor] Respiratory 25 H 29 H 29 H Rate Respiratory Rate [Anterior Bilateral Throughout] Blood Pressure 101/67 115/67 115/67 O2 Sat by Pulse 99 99 98 Oximetry 12/18/16 12/18/16 12/18/16 07:00 07:15 07:30 Temperature Pulse Rate 105 H 105 H 104 H Pulse Rate [ Anterior Bilateral Throughout] Pulse Rate [ From Monitor] Respiratory 29 H 29 H 27 H Rate Respiratory Rate [Anterior Bilateral Throughout] Blood Pressure 102/59 115/67 100/60 O2 Sat by Pulse 99 99 100 Oximetry 12/18/16 12/18/16 12/18/16 07:45 08:00 08:03 Temperature 99.4 F Pulse Rate 108 H 107 H Pulse Rate [ 108 H Anterior Bilateral Throughout] Pulse Rate [ From Monitor] Respiratory 27 H 26 H Rate Respiratory 26 H Rate [Anterior Bilateral Throughout] Blood Pressure 102/59 100/60 O2 Sat by Pulse 100 100 Oximetry 12/18/16 12/18/16 12/18/16 08:04 08:15 08:30 Temperature Pulse Rate 108 H 108 H 110 H Pulse Rate [ Anterior Bilateral Throughout] Pulse Rate [ From Monitor] Respiratory 28 H 29 H Rate Respiratory Rate [Anterior Bilateral Throughout] Blood Pressure 110/67 110/67 113/64 O2 Sat by Pulse 100 98 99 Oximetry 12/18/16 12/18/16 08:45 09:00 Temperature Pulse Rate 110 H 111 H Pulse Rate [ Anterior Bilateral Throughout] Pulse Rate [ From Monitor] Respiratory 27 H 27 H Rate Respiratory Rate [Anterior Bilateral Throughout] Blood Pressure 113/64 114/63 O2 Sat by Pulse 100 100 Oximetry - General Appearance General appearance: sedated on ventilator, intubated EENT: ATNC, PERRL, mucous membranes moist Neck: no JVD Respiratory: Present: Ronchi, Decreased Breath Sounds Cardiology: regular, S1S2 Gastrointestinal: normal, normoactive bowel sounds Integumentary: no rash Neurologic: other (sedate, on vent ) - Lab 12/18/16 06:07 12/18/16 00:15 Most recent lab results Calcium 6.3 mg/dL (8.4-10.2) L 12/18/16 00:15 Phosphorus 9.5 mg/dL (2.5-4.5) H 12/17/16 09:10 Magnesium 2.5 mg/dL (1.7-2.3) H 12/17/16 09:10
[2016-12-18] MEDS ORDERED: NACL 0.9% 100 ML IV PRN ×2 (09:45→14:19)
[2016-12-18 09:47] LABS: Potassium 5.5 mmol/L (3.6-5.0)
[2016-12-18] MEDS ORDERED: LEVAQUIN 750MG/150ML 750 MG/150 ML BAG IV SCH ×2 (10:00)
[2016-12-18 10:34] LABS: BUN/Creatinine Ratio 22.65
[2016-12-18] MEDS: HEPARIN SUB-Q SCH ×3 (10:51→22:10)
--- NOTE | 2016-12-18 10:58 | Progress Note ---
Assessment and Plan Acute respiratory failure s/p extubation Sepsis Pneumonia Altered mental status Acute renal failure Hyperkalemia Chronic systolic heart failure Ischemic cardiomyopathy Echo this admission demonstrates left ventricular ejection fraction 35%. Hx of CAD [facility] 2014: patent mid LAD stent, patent diagonal branch stent, patent mid obtuse marginal stent. Nonobstructive disease of the RCA. EF 30-35%. Plan: Supportive cardiac management. Subjective Date of service: 12/18/16 Principal diagnosis: Acute hypoxemic respiratory failure, shock Interval history: Patient remains intubated on the vent. On pressor support. Renal function continues to worsens. Objective Vital Signs Temp Pulse Pulse Pulse Resp Resp BP 12/18/16 09:00 111 H 27 H 114/63 12/18/16 08:45 110 H 27 H 113/64 12/18/16 08:30 110 H 29 H 113/64 12/18/16 08:15 108 H 28 H 110/67 12/18/16 08:04 108 H 110/67 12/18/16 08:03 108 H 26 H 12/18/16 08:00 99.4 F 107 H 110 H 25 H 100/60 12/18/16 07:45 108 H 27 H 102/59 12/18/16 07:30 104 H 27 H 100/60 12/18/16 07:15 105 H 29 H 115/67 12/18/16 07:00 105 H 29 H 102/59 12/18/16 06:45 106 H 29 H 115/67 12/18/16 06:30 108 H 29 H 115/67 12/18/16 06:15 112 H 25 H 101/67 12/18/16 06:00 108 H 108 H 32 H 101/67 12/18/16 05:45 108 H 28 H 112/71 12/18/16 05:30 112 H 34 H 112/71 12/18/16 05:16 112 H 35 H 106/65 12/18/16 05:00 110 H 26 H 106/65 12/18/16 04:45 112 H 30 H 102/66 12/18/16 04:30 113 H 33 H 102/66 12/18/16 04:21 101.2 F H 12/18/16 04:15 113 H 116 H 31 H 110/63 12/18/16 04:00 112 H 30 H 106/54 12/18/16 03:45 115 H 30 H 111/63 12/18/16 03:30 116 H 30 H 111/63 12/18/16 03:15 116 H 28 H 101/61 12/18/16 03:00 117 H 28 H 101/61 12/18/16 02:45 118 H 30 H 110/65 12/18/16 02:30 120 H 30 H 110/65 12/18/16 02:15 119 H 30 H 111/63 12/18/16 02:00 119 H 30 H 111/61 12/18/16 01:45 118 H 30 H 124/61 12/18/16 01:30 120 H 30 H 120/62 12/18/16 01:15 118 H 29 H 113/61 12/18/16 01:00 118 H 30 H 107/61 12/18/16 00:45 119 H 30 H 104/59 12/18/16 00:33 122 H 133/64 12/18/16 00:30 120 H 30 H 118/59 12/18/16 00:18 102.8 F H 12/18/16 00:15 121 H 28 H 133/64 12/18/16 00:00 123 H 30 H 137/66 12/17/16 23:45 122 H 28 H 127/63 12/17/16 23:30 127 H 28 H 135/63 12/17/16 23:19 125 H 25 H 122/60 12/17/16 23:15 124 H 28 H 122/60 12/17/16 23:00 124 H 28 H 114/59 12/17/16 22:45 124 H 28 H 115/58 12/17/16 22:30 126 H 30 H 145/61 12/17/16 22:15 119 H 30 H 128/66 12/17/16 22:00 120 H 123 H 31 H 139/70 12/17/16 21:50 125 H 141/69 12/17/16 21:45 120 H 33 H 141/69 12/17/16 21:30 118 H 28 H 129/64 12/17/16 21:15 120 H 30 H 135/68 12/17/16 21:00 120 H 30 H 126/66 12/17/16 20:45 119 H 31 H 138/75 12/17/16 20:30 119 H 30 H 140/68 03/08/17 20:15 118 H 28 H 152/68 12/17/16 20:00 102.6 F H 118 H 120 H 30 H 143/67 12/17/16 19:45 117 H 28 H 133/64 12/17/16 19:30 114 H 28 H 135/65 12/17/16 19:15 113 H 28 H 126/62 12/17/16 19:00 112 H 28 H 121/63 12/17/16 18:45 112 H 26 H 126/64 12/17/16 18:30 112 H 31 H 126/68 12/17/16 18:15 111 H 31 H 115/62 12/17/16 18:00 112 H 30 H 117/60 12/17/16 17:45 112 H 31 H 111/60 12/17/16 17:30 111 H 31 H 107/59 12/17/16 17:20 112 H 136/64 12/17/16 17:15 113 H 30 H 111/59 12/17/16 17:00 112 H 30 H 101/55 12/17/16 16:45 113 H 30 H 102/57 12/17/16 16:30 113 H 30 H 102/56 12/17/16 16:15 114 H 30 H 104/56 12/17/16 16:00 114 H 114 H 30 H 109/60 12/17/16 15:45 114 H 31 H 110/57 12/17/16 15:30 116 H 30 H 111/56 12/17/16 15:26 101.8 F H 12/17/16 15:15 116 H 30 H 111/55 12/17/16 15:00 116 H 30 H 110/57 12/17/16 14:45 118 H 30 H 105/56 12/17/16 14:30 118 H 30 H 105/57 12/17/16 14:15 120 H 116 H 31 H 30 H 122/56 12/17/16 14:00 121 H 31 H 120/57 12/17/16 13:55 112 H 34 H 12/17/16 13:45 119 H 31 H 117/60 12/17/16 13:30 121 H 31 H 115/56 12/17/16 13:15 121 H 33 H 115/58 12/17/16 13:00 120 H 32 H 112/56 03/08/17 12:45 120 H 30 H 114/55 12/17/16 12:39 120 H 112/55 12/17/16 12:30 120 H 30 H 112/55 12/17/16 12:15 119 H 30 H 106/56 12/17/16 12:00 102.7 F H 120 H 120 H 30 H 98/53 12/17/16 11:45 121 H 30 H 104/57 12/17/16 11:30 118 H 30 H 121/61 12/17/16 11:15 116 H 30 H 122/57 12/17/16 11:00 116 H 31 H 119/59 Pulse Ox 12/18/16 09:00 100 12/18/16 08:45 100 12/18/16 08:30 99 12/18/16 08:15 98 12/18/16 08:04 100 12/18/16 08:03 12/18/16 08:00 99 12/18/16 07:45 100 12/18/16 07:30 100 12/18/16 07:15 99 12/18/16 07:00 99 12/18/16 06:45 98 12/18/16 06:30 99 12/18/16 06:15 99 12/18/16 06:00 98 12/18/16 05:45 100 12/18/16 05:30 99 12/18/16 05:16 100 12/18/16 05:00 100 12/18/16 04:45 100 12/18/16 04:30 100 12/18/16 04:21 12/18/16 04:15 100 12/18/16 04:00 100 12/18/16 03:45 99 12/18/16 03:30 99 12/18/16 03:15 98 12/18/16 03:00 100 12/18/16 02:45 12/18/16 02:30 99 12/18/16 02:15 97 12/18/16 02:00 96 12/18/16 01:45 97 12/18/16 01:30 96 12/18/16 01:15 96 12/18/16 01:00 97 12/18/16 00:45 91 12/18/16 00:33 100 12/18/16 00:30 100 12/18/16 00:18 12/18/16 00:15 100 12/18/16 00:00 100 12/17/16 23:45 100 12/17/16 23:30 100 12/17/16 23:19 100 12/17/16 23:15 100 12/17/16 23:00 100 12/17/16 22:45 100 12/17/16 22:30 100 12/17/16 22:15 100 12/17/16 22:00 100 12/17/16 21:50 100 12/17/16 21:45 100 12/17/16 21:30 100 12/17/16 21:15 100 12/17/16 21:00 100 12/17/16 20:45 100 12/17/16 20:30 100 12/17/16 20:15 100 12/17/16 20:00 100 12/17/16 19:45 100 12/17/16 19:30 100 12/17/16 19:15 100 12/17/16 19:00 100 12/17/16 18:45 100 12/17/16 18:30 100 12/17/16 18:15 100 12/17/16 18:00 100 12/17/16 17:45 100 12/17/16 17:30 100 12/17/16 17:20 100 12/17/16 17:15 100 12/17/16 17:00 100 12/17/16 16:45 100 12/17/16 16:30 100 12/17/16 16:15 100 12/17/16 16:00 100 12/17/16 15:45 100 12/17/16 15:30 100 12/17/16 15:26 12/17/16 15:15 100 12/17/16 15:00 100 12/17/16 14:45 100 12/17/16 14:30 100 12/17/16 14:15 100 12/17/16 14:00 100 12/17/16 13:55 12/17/16 13:45 100 12/17/16 13:30 100 12/17/16 13:15 100 12/17/16 13:00 100 12/17/16 12:45 100 12/17/16 12:39 100 12/17/16 12:30 100 12/17/16 12:15 100 12/17/16 12:00 100 12/17/16 11:45 100 12/17/16 11:30 100 12/17/16 11:15 100 12/17/16 11:00 100 - Physical Examination General: Other (intubated) Cardiac: Positive: Tachycardia - Labs and Meds Coagulation 12/17/16 12/18/16 Range/Units 20:00 06:22 PT 17.7 H 18.3 H (12.2-14.9) Sec. INR 1.46 H 1.52 H (0.87-1.13) CBC 12/18/16 Range/Units 06:07 WBC 8.6 (4.5-11.0) K/mm3 RBC 3.18 L (3.65-5.03) M/mm3 Hgb 9.6 L (11.8-15.2) gm/dl Hct 29.0 L D (35.5-45.6) % Plt Count 130 L (140-440) K/mm3 Lymph # 2.0 (1.2-5.4) K/mm3 [place] # 0.6 (0.0-0.8) K/mm3 Eos # 0.0 (0.0-0.4) K/mm3 Baso # 0.1 (0.0-0.1) K/mm3 Comprehensive Metabolic Panel 12/17/16 12/17/16 12/17/16 Range/Units 10:50 12:30 14:45 Sodium 144 145 146 H (137-145) mmol/L Potassium 6.1 H* 5.6 H 5.3 H (3.6-5.0) mmol/L Chloride 110.1 H 110.4 H 109.3 H (98-107) mmol/L Carbon Dioxide 14 L 14 L 15 L (22-30) mmol/L BUN 128 H 138 H 128 H (9-20) mg/dL Creatinine 5.5 H 5.3 H 5.5 H (0.8-1.5) mg/dL Glucose 580 H* 528 H* 426 H (75-100) mg/dL Calcium 9.6 D 6.8 L D 6.7 L (8.4-10.2) mg/dL 12/17/16 12/18/16 12/18/16 Range/Units 18:10 00:15 09:00 Sodium 147 H 147 H 147 H (137-145) mmol/L Potassium 4.9 5.2 H 5.5 H (3.6-5.0) mmol/L Chloride 109.7 H 107.9 H 106.0 (98-107) mmol/L Carbon Dioxide 15 L 18 L 17 L (22-30) mmol/L BUN 140 H 143 H 145 H (9-20) mg/dL Creatinine 5.2 H 5.6 H 6.4 H (0.8-1.5) mg/dL Glucose 301 H 152 H 213 H (75-100) mg/dL Calcium 6.5 L 6.3 L 6.0 L (8.4-10.2) mg/dL - Allied health notes Allied health notes reviewed: RT
[2016-12-18] MEDS ORDERED: CALCIUM CHLORIDE IV ONE (11:00)
--- NOTE | 2016-12-18 11:22 | Progress Note ---
Assessment and Plan - Patient Problems (1) Acute hypoxemic respiratory failure Current Visit: Yes Status: Acute Plan to address problem: - intubated - continue aspiration precautions - continue bronchodilators and pulmonary toilet - wean FiO2 for sats > 94% - reduce set rate to 16/min - continue daily PSV trials as tolerated while watching mental status and other weaning parameters (2) Altered mental status Current Visit: Yes Status: Acute Qualifiers: Altered mental status type: A Coma depth: C Coma timing: C Plan to address problem: - seen by neurology - prn sedation / benzo's - multi-factorial really including azotemia - will follow neuro recomendations but less agitated now (3) Cardiomyopathy Current Visit: Yes Status: Acute Plan to address problem: - despite CHF history he is likely volume dependent while with sepsis syndrome - agree with stopping diuresis - continue volume resuscitation (conservative strategies though) - otherwise as per cardiology (4) Septic shock Current Visit: Yes Status: Acute Plan to address problem: - continue AB's per ID recs - r/o VTE re: fevers (dopplers negative but may benefit from CTA once more stable) - continue volume resuscitation but with alkalanized fluids - continue to wean vasopressors for MAP > 60-65mmHg (5) Atypical chest pain Current Visit: No Status: Acute Plan to address problem: - per cardiology (6) Diabetes Current Visit: No Status: Chronic Qualifiers: Diabetes mellitus type: D Diabetes mellitus complication status: D Diabetes mellitus complication detail: D Diabetic retinopathy severity: D Proliferative retinopathy type: P Diabetes mellitus macular edema: D Diabetes mellitus correction insulin use: D Laterality: L Chronic kidney disease stage: C Plan to address problem: - continue IV insulin therapy for strict glycemic control (7) BRITTANY (acute kidney injury) Current Visit: Yes Status: Acute Plan to address problem: - seen by nephrology - to get vas-cath - hopefully responds well to therapies and BP improves - may need CRRT otherwise - continue alkalanized fluids - hyperkalemia addressed - fo vascath placement today and will likely get dialysis (8) Subclavian artery injury Current Visit: Yes Status: Acute Qualifiers: Encounter type: E Laterality: L Plan to address problem: - seen by vascular team - phased extraction approach which may involve trip to chemistry laboratory technician or O.R. - H&H holding (9) Discharge planning issues Current Visit: Yes Status: Acute Plan to address problem: - LTAC evaluation on hold for now ...he is critically ill on life sustaining interventions including MVS & vasopressors and at high risk for further deterioration including ...34' CCT Subjective Date of service: 12/18/16 Principal diagnosis: Acute hypoxemic respiratory failure, shock Interval history: Seen and examined at bedside; 24 hour events reviewed; nursing and respiratory care staff consulted; no adverse overnight events reported to me; remains on MVS but tolerating PSV trial well; not sedated and no obvious agitation currently; seen by vascular team re: inadvertent subclavian artery canulation. Objective Vital Signs - 12hr 12/17/16 12/17/16 12/18/16 23:30 23:45 00:00 Temperature Pulse Rate 127 H 122 H 123 H Pulse Rate [ Anterior Bilateral Throughout] Pulse Rate [ From Monitor] Respiratory 28 H 28 H 30 H Rate Respiratory Rate [Anterior Bilateral Throughout] Blood Pressure 135/63 127/63 137/66 O2 Sat by Pulse 100 100 100 Oximetry 12/18/16 12/18/16 12/18/16 00:15 00:18 00:30 Temperature 102.8 F H Pulse Rate 121 H 120 H Pulse Rate [ Anterior Bilateral Throughout] Pulse Rate [ From Monitor] Respiratory 28 H 30 H Rate Respiratory Rate [Anterior Bilateral Throughout] Blood Pressure 133/64 118/59 O2 Sat by Pulse 100 100 Oximetry 12/18/16 12/18/16 12/18/16 00:33 00:45 01:00 Temperature Pulse Rate 122 H 119 H 118 H Pulse Rate [ Anterior Bilateral Throughout] Pulse Rate [ From Monitor] Respiratory 30 H 30 H Rate Respiratory Rate [Anterior Bilateral Throughout] Blood Pressure 133/64 104/59 107/61 O2 Sat by Pulse 100 91 97 Oximetry 12/18/16 12/18/16 12/18/16 01:15 01:30 01:45 Temperature Pulse Rate 118 H 120 H 118 H Pulse Rate [ Anterior Bilateral Throughout] Pulse Rate [ From Monitor] Respiratory 29 H 30 H 30 H Rate Respiratory Rate [Anterior Bilateral Throughout] Blood Pressure 113/61 120/62 124/61 O2 Sat by Pulse 96 96 97 Oximetry 12/18/16 12/18/16 12/18/16 02:00 02:15 02:30 Temperature Pulse Rate 119 H 119 H 120 H Pulse Rate [ Anterior Bilateral Throughout] Pulse Rate [ From Monitor] Respiratory 30 H 30 H 30 H Rate Respiratory Rate [Anterior Bilateral Throughout] Blood Pressure 111/61 111/63 110/65 O2 Sat by Pulse 96 97 99 Oximetry 12/18/16 12/18/16 12/18/16 02:45 03:00 03:15 Temperature Pulse Rate 118 H 117 H 116 H Pulse Rate [ Anterior Bilateral Throughout] Pulse Rate [ From Monitor] Respiratory 30 H 28 H 28 H Rate Respiratory Rate [Anterior Bilateral Throughout] Blood Pressure 110/65 101/61 101/61 O2 Sat by Pulse 100 98 Oximetry 12/18/16 12/18/16 12/18/16 03:30 03:45 04:00 Temperature Pulse Rate 116 H 115 H 112 H Pulse Rate [ Anterior Bilateral Throughout] Pulse Rate [ From Monitor] Respiratory 30 H 30 H 30 H Rate Respiratory Rate [Anterior Bilateral Throughout] Blood Pressure 111/63 111/63 106/54 O2 Sat by Pulse 99 99 100 Oximetry 12/18/16 12/18/16 12/18/16 04:15 04:21 04:30 Temperature 101.2 F H Pulse Rate 113 H 113 H Pulse Rate [ Anterior Bilateral Throughout] Pulse Rate [ 116 H From Monitor] Respiratory 31 H 33 H Rate Respiratory Rate [Anterior Bilateral Throughout] Blood Pressure 110/63 102/66 O2 Sat by Pulse 100 100 Oximetry 12/18/16 12/18/16 12/18/16 04:45 05:00 05:16 Temperature Pulse Rate 112 H 110 H 112 H Pulse Rate [ Anterior Bilateral Throughout] Pulse Rate [ From Monitor] Respiratory 30 H 26 H 35 H Rate Respiratory Rate [Anterior Bilateral Throughout] Blood Pressure 102/66 106/65 106/65 O2 Sat by Pulse 100 100 100 Oximetry 12/18/16 12/18/16 12/18/16 05:30 05:45 06:00 Temperature Pulse Rate 112 H 108 H 108 H Pulse Rate [ Anterior Bilateral Throughout] Pulse Rate [ 108 H From Monitor] Respiratory 34 H 28 H 32 H Rate Respiratory Rate [Anterior Bilateral Throughout] Blood Pressure 112/71 112/71 101/67 O2 Sat by Pulse 99 100 98 Oximetry 12/18/16 12/18/16 12/18/16 06:15 06:30 06:45 Temperature Pulse Rate 112 H 108 H 106 H Pulse Rate [ Anterior Bilateral Throughout] Pulse Rate [ From Monitor] Respiratory 25 H 29 H 29 H Rate Respiratory Rate [Anterior Bilateral Throughout] Blood Pressure 101/67 115/67 115/67 O2 Sat by Pulse 99 99 98 Oximetry 12/18/16 12/18/16 12/18/16 07:00 07:15 07:30 Temperature Pulse Rate 105 H 105 H 104 H Pulse Rate [ Anterior Bilateral Throughout] Pulse Rate [ From Monitor] Respiratory 29 H 29 H 27 H Rate Respiratory Rate [Anterior Bilateral Throughout] Blood Pressure 102/59 115/67 100/60 O2 Sat by Pulse 99 99 100 Oximetry 12/18/16 12/18/16 12/18/16 07:45 08:00 08:03 Temperature 99.4 F Pulse Rate 108 H 107 H Pulse Rate [ 108 H Anterior Bilateral Throughout] Pulse Rate [ 110 H From Monitor] Respiratory 27 H 25 H Rate Respiratory 26 H Rate [Anterior Bilateral Throughout] Blood Pressure 102/59 100/60 O2 Sat by Pulse 100 99 Oximetry 12/18/16 12/18/16 12/18/16 08:04 08:15 08:30 Temperature Pulse Rate 108 H 108 H 110 H Pulse Rate [ Anterior Bilateral Throughout] Pulse Rate [ From Monitor] Respiratory 28 H 29 H Rate Respiratory Rate [Anterior Bilateral Throughout] Blood Pressure 110/67 110/67 113/64 O2 Sat by Pulse 100 98 99 Oximetry 12/18/16 12/18/16 12/18/16 08:45 09:00 09:15 Temperature Pulse Rate 110 H 111 H 112 H Pulse Rate [ Anterior Bilateral Throughout] Pulse Rate [ From Monitor] Respiratory 27 H 27 H 25 H Rate Respiratory Rate [Anterior Bilateral Throughout] Blood Pressure 113/64 114/63 113/64 O2 Sat by Pulse 100 100 100 Oximetry 12/18/16 12/18/16 12/18/16 09:30 09:45 10:00 Temperature Pulse Rate 111 H 111 H 110 H Pulse Rate [ Anterior Bilateral Throughout] Pulse Rate [ From Monitor] Respiratory 27 H 25 H 29 H Rate Respiratory Rate [Anterior Bilateral Throughout] Blood Pressure 103/55 103/55 112/62 O2 Sat by Pulse 100 99 100 Oximetry 12/18/16 12/18/16 12/18/16 10:15 10:30 10:45 Temperature Pulse Rate 112 H 109 H 112 H Pulse Rate [ Anterior Bilateral Throughout] Pulse Rate [ From Monitor] Respiratory 32 H 24 29 H Rate Respiratory Rate [Anterior Bilateral Throughout] Blood Pressure 112/62 111/60 112/62 O2 Sat by Pulse 99 99 99 Oximetry 12/18/16 12/18/16 11:00 11:08 Temperature Pulse Rate 111 H 111 H Pulse Rate [ Anterior Bilateral Throughout] Pulse Rate [ From Monitor] Respiratory 24 Rate Respiratory Rate [Anterior Bilateral Throughout] Blood Pressure 104/61 104/61 O2 Sat by Pulse 100 99 Oximetry Constitutional: no acute distress, lethargic Eyes: non-icteric ENT: oropharynx moist Neck: supple, no lymphadenopathy, no JVD Effort: very labored Ascultation: Bilateral: diminished breath sounds, rales (basilar and scant) Cardiovascular: regular rate and rhythm Gastrointestinal: normoactive bowel sounds, hypoactive bowel sounds, soft, non- tender, non-distended Integumentary: normal Extremities: no cyanosis, no edema, pink and warm, pulses normal, no ischemia or petechiae Neurologic: non-focal exam (grossly), pupils equal and round, unable to assess Psychiatric: other (sedated) CBC and BMP: 12/18/16 06:07 12/18/16 09:00 ABG, PT/INR, D-dimer: ABG POC ABG pH 7.485 (7.35-7.45) H 12/18/16 05:23 POC ABG pCO2 27.5 (35-45) L 12/18/16 05:23 POC ABG pO2 275 (80-105) H 12/18/16 05:23 POC ABG HCO3 20.7 12/18/16 05:23 POC ABG Total CO2 22 12/18/16 05:23 POC ABG O2 Sat 100 12/18/16 05:23 PT/INR, D-dimer PT 18.3 Sec. (12.2-14.9) H 12/18/16 06:22 INR 1.52 (0.87-1.13) H 12/18/16 06:22 D-Dimer 586.01 ng/mlDDU (0-234) H 12/14/16 18:03 Abnormal lab findings: Abnormal Labs 12/07/16 12/07/16 12/07/16 00:35 05:30 05:30 WBC RBC Hgb Hct MCV MCHC RDW 13.0 L Plt Count 93 L [place] % (Auto) 11.2 H [place] # 1.1 H Baso # Seg Neutrophils % 71.3 H Seg Neutrophils # PT INR D-Dimer POC ABG pH POC ABG pCO2 POC ABG pO2 Sodium Potassium Chloride Carbon Dioxide BUN Creatinine 0.6 L Glucose 168 H POC Glucose Lactic Acid Calcium 7.8 L Phosphorus Magnesium Direct Bilirubin 0.7 H AST Alkaline Phosphatase Total Creatine Kinase 343 H C-Reactive Protein Albumin 2.6 L TSH Vancomycin Trough 12/07/16 12/07/16 12/07/16 06:58 16:41 18:30 WBC RBC Hgb Hct MCV MCHC RDW Plt Count [place] % (Auto) [place] # Baso # Seg Neutrophils % Seg Neutrophils # PT INR D-Dimer POC ABG pH POC ABG pCO2 POC ABG pO2 Sodium Potassium Chloride Carbon Dioxide BUN Creatinine Glucose POC Glucose 175 H Lactic Acid Calcium Phosphorus Magnesium Direct Bilirubin AST Alkaline Phosphatase Total Creatine Kinase 242 H C-Reactive Protein 7.70 H Albumin TSH Vancomycin Trough 12/09/16 12/10/16 12/10/16 11:58 06:05 12:24 WBC RBC Hgb Hct MCV MCHC RDW Plt Count [place] % (Auto) [place] # Baso # Seg Neutrophils % Seg Neutrophils # PT INR D-Dimer POC ABG pH 7.485 H POC ABG pCO2 POC ABG pO2 Sodium Potassium Chloride Carbon Dioxide BUN Creatinine Glucose POC Glucose 141 H 183 H Lactic Acid Calcium Phosphorus Magnesium Direct Bilirubin AST Alkaline Phosphatase Total Creatine Kinase C-Reactive Protein Albumin TSH Vancomycin Trough 12/10/16 12/10/16 12/11/16 17:47 23:21 06:10 WBC RBC Hgb Hct MCV MCHC RDW Plt Count [place] % (Auto) [place] # Baso # Seg Neutrophils % Seg Neutrophils # PT INR D-Dimer POC ABG pH POC ABG pCO2 POC ABG pO2 Sodium Potassium Chloride Carbon Dioxide BUN Creatinine Glucose POC Glucose 176 H 240 H 252 H Lactic Acid Calcium Phosphorus Magnesium Direct Bilirubin AST Alkaline Phosphatase Total Creatine Kinase C-Reactive Protein Albumin TSH Vancomycin Trough 12/11/16 12/11/16 12/11/16 08:29 09:14 11:37 WBC RBC Hgb Hct MCV MCHC RDW 13.1 L Plt Count [place] % (Auto) [place] # Baso # Seg Neutrophils % Seg Neutrophils # PT INR D-Dimer POC ABG pH POC ABG pCO2 POC ABG pO2 Sodium Potassium Chloride Carbon Dioxide BUN Creatinine Glucose POC Glucose 253 H 284 H Lactic Acid Calcium Phosphorus Magnesium Direct Bilirubin AST Alkaline Phosphatase Total Creatine Kinase C-Reactive Protein Albumin TSH Vancomycin Trough 12/11/16 12/11/16 12/11/16 16:12 17:54 23:35 WBC RBC Hgb Hct MCV MCHC RDW Plt Count [place] % (Auto) [place] # Baso # Seg Neutrophils % Seg Neutrophils # PT INR D-Dimer POC ABG pH POC ABG pCO2 POC ABG pO2 Sodium Potassium Chloride Carbon Dioxide BUN 37 H Creatinine Glucose 258 H POC Glucose 227 H 264 H Lactic Acid Calcium 8.3 L Phosphorus Magnesium Direct Bilirubin AST Alkaline Phosphatase Total Creatine Kinase C-Reactive Protein Albumin 2.6 L TSH Vancomycin Trough 12/12/16 12/12/16 12/12/16 04:37 06:06 10:12 WBC RBC Hgb Hct MCV MCHC RDW Plt Count [place] % (Auto) [place] # Baso # Seg Neutrophils % Seg Neutrophils # PT INR D-Dimer POC ABG pH 7.500 H POC ABG pCO2 POC ABG pO2 69 L Sodium Potassium Chloride Carbon Dioxide BUN Creatinine Glucose POC Glucose 288 H Lactic Acid Calcium Phosphorus Magnesium Direct Bilirubin AST Alkaline Phosphatase Total Creatine Kinase C-Reactive Protein Albumin TSH Vancomycin Trough 12/12/16 12/12/16 12/12/16 13:08 17:46 23:31 WBC RBC Hgb Hct MCV MCHC RDW Plt Count [place] % (Auto) [place] # Baso # Seg Neutrophils % Seg Neutrophils # PT INR D-Dimer POC ABG pH POC ABG pCO2 POC ABG pO2 Sodium Potassium Chloride Carbon Dioxide BUN Creatinine Glucose POC Glucose 215 H 234 H 241 H Lactic Acid Calcium Phosphorus Magnesium Direct Bilirubin AST Alkaline Phosphatase Total Creatine Kinase C-Reactive Protein Albumin TSH Vancomycin Trough 12/13/16 12/13/16 12/13/16 05:38 11:44 17:32 WBC RBC Hgb Hct MCV MCHC RDW Plt Count [place] % (Auto) [place] # Baso # Seg Neutrophils % Seg Neutrophils # PT INR D-Dimer POC ABG pH POC ABG pCO2 POC ABG pO2 Sodium Potassium Chloride Carbon Dioxide BUN Creatinine Glucose POC Glucose 215 H 237 H 215 H Lactic Acid Calcium Phosphorus Magnesium Direct Bilirubin AST Alkaline Phosphatase Total Creatine Kinase C-Reactive Protein Albumin TSH Vancomycin Trough 12/14/16 12/14/16 12/14/16 00:22 05:40 12:03 WBC RBC Hgb Hct MCV MCHC RDW Plt Count [place] % (Auto) [place] # Baso # Seg Neutrophils % Seg Neutrophils # PT INR D-Dimer POC ABG pH POC ABG pCO2 POC ABG pO2 Sodium Potassium Chloride Carbon Dioxide BUN Creatinine Glucose POC Glucose 268 H 301 H 312 H Lactic Acid Calcium Phosphorus Magnesium Direct Bilirubin AST Alkaline Phosphatase Total Creatine Kinase C-Reactive Protein Albumin TSH Vancomycin Trough 12/14/16 12/14/16 12/14/16 18:03 18:03 18:03 WBC RBC Hgb Hct MCV MCHC RDW 12.9 L Plt Count [place] % (Auto) 8.0 H [place] # Baso # Seg Neutrophils % 72.4 H Seg Neutrophils # PT INR D-Dimer 586.01 H POC ABG pH POC ABG pCO2 POC ABG pO2 Sodium 150 H Potassium Chloride 109.1 H Carbon Dioxide BUN 50 H Creatinine Glucose 261 H POC Glucose Lactic Acid Calcium Phosphorus Magnesium Direct Bilirubin AST Alkaline Phosphatase Total Creatine Kinase C-Reactive Protein Albumin TSH Vancomycin Trough 12/14/16 12/14/16 12/14/16 18:30 21:55 23:59 WBC RBC Hgb Hct MCV MCHC RDW Plt Count [place] % (Auto) [place] # Baso # Seg Neutrophils % Seg Neutrophils # PT INR D-Dimer POC ABG pH POC ABG pCO2 POC ABG pO2 Sodium Potassium Chloride Carbon Dioxide BUN Creatinine Glucose POC Glucose 321 H 258 H 262 H Lactic Acid Calcium Phosphorus Magnesium Direct Bilirubin AST Alkaline Phosphatase Total Creatine Kinase C-Reactive Protein Albumin TSH Vancomycin Trough 12/15/16 12/15/16 12/15/16 05:28 06:04 09:15 WBC RBC Hgb Hct MCV MCHC RDW Plt Count [place] % (Auto) [place] # Baso # Seg Neutrophils % Seg Neutrophils # PT INR D-Dimer POC ABG pH POC ABG pCO2 POC ABG pO2 Sodium Potassium Chloride Carbon Dioxide BUN Creatinine Glucose POC Glucose 274 H 276 H Lactic Acid Calcium Phosphorus Magnesium Direct Bilirubin AST Alkaline Phosphatase Total Creatine Kinase C-Reactive Protein Albumin TSH 0.220 L Vancomycin Trough 12/15/16 12/15/16 12/15/16 11:59 13:40 18:06 WBC RBC Hgb Hct MCV MCHC RDW Plt Count [place] % (Auto) [place] # Baso # Seg Neutrophils % Seg Neutrophils # PT INR D-Dimer POC ABG pH POC ABG pCO2 33.3 L POC ABG pO2 70 L Sodium Potassium Chloride Carbon Dioxide BUN Creatinine Glucose POC Glucose 273 H Lactic Acid Calcium Phosphorus Magnesium Direct Bilirubin AST Alkaline Phosphatase Total Creatine Kinase C-Reactive Protein Albumin TSH 0.204 L Vancomycin Trough 12/15/16 12/15/1617 18:14 21:26 02:08 WBC RBC Hgb Hct MCV MCHC RDW Plt Count [place] % (Auto) [place] # Baso # Seg Neutrophils % Seg Neutrophils # PT INR D-Dimer POC ABG pH 7.341 L POC ABG pCO2 POC ABG pO2 223 H Sodium Potassium Chloride Carbon Dioxide BUN Creatinine Glucose POC Glucose 234 H 371 H Lactic Acid Calcium Phosphorus Magnesium Direct Bilirubin AST Alkaline Phosphatase Total Creatine Kinase C-Reactive Protein Albumin TSH Vancomycin Trough 12/16/16 12/16/16 12/16/16 05:12 05:18 09:40 WBC RBC Hgb Hct MCV MCHC RDW Plt Count [place] % (Auto) [place] # Baso # Seg Neutrophils % Seg Neutrophils # PT INR D-Dimer POC ABG pH POC ABG pCO2 32.5 L POC ABG pO2 Sodium 154 H Potassium Chloride 116.8 H Carbon Dioxide 18 L D BUN 92 H Creatinine 3.0 H D Glucose 364 H POC Glucose 357 H Lactic Acid Calcium 8.2 L Phosphorus Magnesium Direct Bilirubin AST Alkaline Phosphatase Total Creatine Kinase C-Reactive Protein Albumin TSH Vancomycin Trough 12/16/16 12/16/16 12/16/16 13:40 18:27 18:34 WBC RBC Hgb Hct MCV MCHC RDW Plt Count [place] % (Auto) [place] # Baso # Seg Neutrophils % Seg Neutrophils # PT INR D-Dimer POC ABG pH POC ABG pCO2 POC ABG pO2 Sodium Potassium Chloride Carbon Dioxide BUN Creatinine Glucose POC Glucose 391 H 472 H Lactic Acid Calcium Phosphorus Magnesium Direct Bilirubin AST Alkaline Phosphatase Total Creatine Kinase C-Reactive Protein Albumin TSH Vancomycin Trough 33.7 H 12/17/16 12/17/16 12/17/16 00:38 01:54 05:53 WBC RBC Hgb Hct MCV MCHC RDW Plt Count [place] % (Auto) [place] # Baso # Seg Neutrophils % Seg Neutrophils # PT INR D-Dimer POC ABG pH 7.234 L POC ABG pCO2 34.5 L POC ABG pO2 50 L Sodium Potassium Chloride Carbon Dioxide BUN Creatinine Glucose POC Glucose 386 H 400 H Lactic Acid Calcium Phosphorus Magnesium Direct Bilirubin AST Alkaline Phosphatase Total Creatine Kinase C-Reactive Protein Albumin TSH Vancomycin Trough 12/17/16 12/17/16 12/17/16 06:45 06:45 07:45 WBC 12.3 H RBC Hgb 11.7 L Hct MCV 97 H D MCHC 31 L RDW Plt Count [place] % (Auto) 14.4 H [place] # 1.8 H Baso # 0.2 H Seg Neutrophils % Seg Neutrophils # 8.2 H PT INR D-Dimer POC ABG pH POC ABG pCO2 POC ABG pO2 Sodium Potassium 7.6 H* D Chloride 110.8 H Carbon Dioxide 14 L BUN 121 H Creatinine 5.4 H D Glucose 566 H* POC Glucose > 500 H Lactic Acid Calcium 6.2 L D Phosphorus Magnesium Direct Bilirubin AST 323 H Alkaline Phosphatase 27 L Total Creatine Kinase C-Reactive Protein Albumin 2.3 L TSH Vancomycin Trough 12/17/16 12/17/16 12/17/16 08:51 09:10 09:11 WBC RBC Hgb Hct MCV MCHC RDW Plt Count [place] % (Auto) [place] # Baso # Seg Neutrophils % Seg Neutrophils # PT INR D-Dimer POC ABG pH 7.113 L POC ABG pCO2 46.1 H POC ABG pO2 186 H Sodium Potassium Chloride Carbon Dioxide BUN Creatinine Glucose POC Glucose > 500 H Lactic Acid Calcium Phosphorus 9.5 H Magnesium 2.5 H Direct Bilirubin AST Alkaline Phosphatase Total Creatine Kinase C-Reactive Protein Albumin TSH Vancomycin Trough 12/17/16 12/17/16 12/17/16 10:18 10:50 11:17 WBC RBC Hgb Hct MCV MCHC RDW Plt Count [place] % (Auto) [place] # Baso # Seg Neutrophils % Seg Neutrophils # PT INR D-Dimer POC ABG pH POC ABG pCO2 POC ABG pO2 Sodium Potassium 6.1 H* Chloride 110.1 H Carbon Dioxide 14 L BUN 128 H Creatinine 5.5 H Glucose 580 H* POC Glucose > 500 H > 500 H Lactic Acid Calcium Phosphorus Magnesium Direct Bilirubin AST Alkaline Phosphatase Total Creatine Kinase C-Reactive Protein Albumin TSH Vancomycin Trough 12/17/16 12/17/16 12/17/16 12:09 12:30 13:36 WBC RBC Hgb Hct MCV MCHC RDW Plt Count [place] % (Auto) [place] # Baso # Seg Neutrophils % Seg Neutrophils # PT INR D-Dimer POC ABG pH POC ABG pCO2 POC ABG pO2 Sodium Potassium 5.6 H Chloride 110.4 H Carbon Dioxide 14 L BUN 138 H Creatinine 5.3 H Glucose 528 H* POC Glucose 428 H 426 H Lactic Acid Calcium 6.8 L D Phosphorus Magnesium Direct Bilirubin AST Alkaline Phosphatase Total Creatine Kinase C-Reactive Protein Albumin TSH Vancomycin Trough 12/17/16 12/17/16 12/17/16 14:11 14:25 14:45 WBC RBC Hgb Hct MCV MCHC RDW Plt Count [place] % (Auto) [place] # Baso # Seg Neutrophils % Seg Neutrophils # PT INR D-Dimer POC ABG pH 7.297 L POC ABG pCO2 34.2 L POC ABG pO2 114 H Sodium 146 H Potassium 5.3 H Chloride 109.3 H Carbon Dioxide 15 L BUN 128 H Creatinine 5.5 H Glucose 426 H POC Glucose 422 H Lactic Acid Calcium 6.7 L Phosphorus Magnesium Direct Bilirubin AST Alkaline Phosphatase Total Creatine Kinase C-Reactive Protein Albumin TSH Vancomycin Trough 12/17/16 12/17/16 12/17/16 15:07 16:03 16:56 WBC RBC Hgb Hct MCV MCHC RDW Plt Count [place] % (Auto) [place] # Baso # Seg Neutrophils % Seg Neutrophils # PT INR D-Dimer POC ABG pH POC ABG pCO2 POC ABG pO2 Sodium Potassium Chloride Carbon Dioxide BUN Creatinine Glucose POC Glucose 392 H 450 H 352 H Lactic Acid Calcium Phosphorus Magnesium Direct Bilirubin AST Alkaline Phosphatase Total Creatine Kinase C-Reactive Protein Albumin TSH Vancomycin Trough 12/17/16 12/17/16 12/17/16 18:00 18:10 18:38 WBC RBC Hgb Hct MCV MCHC RDW Plt Count [place] % (Auto) [place] # Baso # Seg Neutrophils % Seg Neutrophils # PT INR D-Dimer POC ABG pH POC ABG pCO2 POC ABG pO2 Sodium 147 H Potassium Chloride 109.7 H Carbon Dioxide 15 L BUN 140 H Creatinine 5.2 H Glucose 301 H POC Glucose 318 H 256 H Lactic Acid Calcium 6.5 L Phosphorus Magnesium Direct Bilirubin AST Alkaline Phosphatase Total Creatine Kinase C-Reactive Protein Albumin TSH Vancomycin Trough 12/17/16 12/17/16 12/17/16 19:31 20:00 20:44 WBC RBC Hgb Hct MCV MCHC RDW Plt Count [place] % (Auto) [place] # Baso # Seg Neutrophils % Seg Neutrophils # PT 17.7 H INR 1.46 H D-Dimer POC ABG pH POC ABG pCO2 30.5 L POC ABG pO2 134 H Sodium Potassium Chloride Carbon Dioxide BUN Creatinine Glucose POC Glucose 189 H Lactic Acid Calcium Phosphorus Magnesium Direct Bilirubin AST Alkaline Phosphatase Total Creatine Kinase C-Reactive Protein Albumin TSH Vancomycin Trough 12/17/16 12/17/16 12/18/16 21:59 23:18 00:15 WBC RBC Hgb Hct MCV MCHC RDW Plt Count [place] % (Auto) [place] # Baso # Seg Neutrophils % Seg Neutrophils # PT INR D-Dimer POC ABG pH POC ABG pCO2 POC ABG pO2 Sodium 147 H Potassium 5.2 H Chloride 107.9 H Carbon Dioxide 18 L BUN 143 H Creatinine 5.6 H Glucose 152 H POC Glucose 191 H 132 H Lactic Acid Calcium 6.3 L Phosphorus Magnesium Direct Bilirubin AST Alkaline Phosphatase Total Creatine Kinase C-Reactive Protein Albumin TSH Vancomycin Trough 12/18/16 12/18/16 12/18/16 00:18 01:08 02:35 WBC RBC Hgb Hct MCV MCHC RDW Plt Count [place] % (Auto) [place] # Baso # Seg Neutrophils % Seg Neutrophils # PT INR D-Dimer POC ABG pH POC ABG pCO2 POC ABG pO2 Sodium Potassium Chloride Carbon Dioxide BUN Creatinine Glucose POC Glucose 190 H 157 H 144 H Lactic Acid Calcium Phosphorus Magnesium Direct Bilirubin AST Alkaline Phosphatase Total Creatine Kinase C-Reactive Protein Albumin TSH Vancomycin Trough 12/18/16 12/18/16 12/18/16 03:14 04:11 05:07 WBC RBC Hgb Hct MCV MCHC RDW Plt Count [place] % (Auto) [place] # Baso # Seg Neutrophils % Seg Neutrophils # PT INR D-Dimer POC ABG pH POC ABG pCO2 POC ABG pO2 Sodium Potassium Chloride Carbon Dioxide BUN Creatinine Glucose POC Glucose 117 H 108 H 122 H Lactic Acid Calcium Phosphorus Magnesium Direct Bilirubin AST Alkaline Phosphatase Total Creatine Kinase C-Reactive Protein Albumin TSH Vancomycin Trough 12/18/16 12/18/16 12/18/16 05:23 06:07 06:07 WBC RBC 3.18 L Hgb 9.6 L Hct 29.0 L D MCV MCHC RDW Plt Count 130 L [place] % (Auto) [place] # Baso # Seg Neutrophils % Seg Neutrophils # PT INR D-Dimer POC ABG pH 7.485 H POC ABG pCO2 27.5 L POC ABG pO2 275 H Sodium Potassium Chloride Carbon Dioxide BUN Creatinine Glucose POC Glucose Lactic Acid 3.2 H* Calcium Phosphorus Magnesium Direct Bilirubin AST Alkaline Phosphatase Total Creatine Kinase C-Reactive Protein Albumin TSH Vancomycin Trough 12/18/16 12/18/16 12/18/16 06:08 06:22 07:26 WBC RBC Hgb Hct MCV MCHC RDW Plt Count [place] % (Auto) [place] # Baso # Seg Neutrophils % Seg Neutrophils # PT 18.3 H INR 1.52 H D-Dimer POC ABG pH POC ABG pCO2 POC ABG pO2 Sodium Potassium Chloride Carbon Dioxide BUN Creatinine Glucose POC Glucose 159 H 198 H Lactic Acid Calcium Phosphorus Magnesium Direct Bilirubin AST Alkaline Phosphatase Total Creatine Kinase C-Reactive Protein Albumin TSH Vancomycin Trough 12/18/16 12/18/16 12/18/16 08:27 09:00 09:30 WBC RBC Hgb Hct MCV MCHC RDW Plt Count [place] % (Auto) [place] # Baso # Seg Neutrophils % Seg Neutrophils # PT INR D-Dimer POC ABG pH POC ABG pCO2 POC ABG pO2 Sodium 147 H Potassium 5.5 H Chloride Carbon Dioxide 17 L BUN 145 H Creatinine 6.4 H Glucose 213 H POC Glucose 220 H 216 H Lactic Acid Calcium 6.0 L Phosphorus Magnesium Direct Bilirubin AST Alkaline Phosphatase Total Creatine Kinase C-Reactive Protein Albumin TSH Vancomycin Trough 12/18/16 12/18/16 10:29 11:11 WBC RBC Hgb Hct MCV MCHC RDW Plt Count [place] % (Auto) [place] # Baso # Seg Neutrophils % Seg Neutrophils # PT INR D-Dimer POC ABG pH POC ABG pCO2 POC ABG pO2 Sodium Potassium Chloride Carbon Dioxide BUN Creatinine Glucose POC Glucose 248 H 214 H Lactic Acid Calcium Phosphorus Magnesium Direct Bilirubin AST Alkaline Phosphatase Total Creatine Kinase C-Reactive Protein Albumin TSH Vancomycin Trough Chest x-ray: image reviewed Allied health notes reviewed: RT
[2016-12-18] MEDS: NovoLIN R 100 UNITS in NACL 0.9% 99 ML IV SCH (12:33)
--- NOTE | 2016-12-18 14:15 | XRay Report ---
Single view chest: Compared to 12/17/16 P. History: Line placement. Findings: Borderline cardiomegaly. Trachea is midline. Tip of endotracheal tube in normal position. Tip of right subclavian catheter at right innominate. Suspicion of infiltrates left perihilar area lower lobe. Normal CP angles. Impression: Tip of right subclavian catheter at right innominate. Suspicion of infiltrates inferior aspect of the left hilum.
--- NOTE | 2016-12-18 14:41 | Consultation ---
History of Present Illness - Reason for Consult Consult date: 12/18/16 Dialysis access and possible subclavian arterial line - History of Present Illness 61-year-old male who was admitted to the hospital for altered mental status with past medical history of ischemic cardiomyopathy with ejection fraction of 10-15%, coronary artery disease, type 2 diabetes mellitus , hypertension, and current smoking use. During the patient's hospitalization, he has been placed on for pressors, and had multiple lines placed. There is concern that the patient's right subclavian line may be placed in the artery. The patient has been weaned off of his pressors very recently, but is hemodynamically tenuous and intubated at this time. Past History Past Medical History: CAD, diabetes, heart failure (systolic dysfunction ejection fraction 10-15%), hypertension Past Surgical History: PTCA Social history: smoking Family history: CAD, hypertension Medications and Allergies Allergies Allergy/AdvReac Type Severity Reaction Status Date / Time No Known Allergies Allergy Verified 08/09/14 20:15 Home Medications Medication Instructions Recorded Confirmed Last Taken Type Aspirin [Aspirin TAB] 81 mg PO QDAY #30 tablet 01/28/15 12/06/16 1 Day Ago Rx Furosemide [Lasix TAB] 20 mg PO DAILY #30 tablet 01/28/15 12/06/16 1 Day Ago Rx ISOSORBIDE MONOnitrate [Imdur ER] 30 mg PO DAILY #30 tablet 01/28/15 12/06/16 1 Day Ago Rx Lisinopril [Zestril] 2.5 mg PO QDAY #30 tablet 01/28/15 12/06/16 1 Day Ago Rx Metoprolol [Lopressor TAB] 12.5 mg PO BID #60 tablet 01/28/15 12/06/16 1 Day Ago Rx Pantoprazole [Protonix TAB] 20 mg PO BID #60 tablet.dr 01/28/15 12/06/16 1 Day Ago Rx Simvastatin [Zocor TAB] 20 mg PO QHS #30 tablet 01/28/15 12/06/16 1 Day Ago Rx Magnesium Oxide [Mag-Ox] 400 mg PO QDAY #5 tablet 02/02/16 12/06/16 1 Day Ago Rx Active Meds: Active Medications Acetaminophen (Tylenol) 650 mg NE Q4H PRN PRN Reason: Pain, Mild (1-3) Last Admin: 12/12/16 18:08 Dose: 650 mg Acetaminophen (Tylenol) 650 mg FEEDTUBE Q6H PRN PRN Reason: Fever >101 Last Admin: 12/18/16 00:37 Dose: 650 mg Albuterol/Ipratropium (Duoneb 0.5 Mg-3 Mg/3 Ml Soln) 1 ampul IH Q6HRT RENITA Last Admin: 12/18/16 08:03 Dose: 1 ampul Lipase/Protease/Amylase (Pancreaze Dr 10,500 Unit) 1 each FEEDTUBE PRN PRN PRN Reason: For Clogged Feeding Tube Aspirin (Baby Aspirin) 81 mg PO QDAY [facility] Last Admin: 12/18/16 09:21 Dose: 81 mg Dextrose (D50w (25gm)) 0 ml IV PRN PRN PRN Reason: Hypoglycemia Folic Acid (Folvite) 1 mg PO QDAY [facility] Last Admin: 12/18/16 09:22 Dose: 1 mg Heparin Sodium (Porcine) (Heparin) 5,000 unit SUB-Q Q8HR RENITA Last Admin: 12/18/16 10:51 Dose: 5,000 unit Heparin Sodium (Porcine) (Heparin) 5,000 unit IV AURELIO PRN PRN Reason: hemodialysis Hydrophilic Ointment (Vaseline Lip Therapy) 1 applic TP Q2HR PRN PRN Reason: Dry Lips Last Admin: 12/07/16 12:44 Dose: 1 applic Phenylephrine HCl 100 mg/ (Sodium Chloride) 100 mls @ 3 mls/hr IV TITR RENITA; 50 MCG/MIN PRN Reason: Protocol Lorazepam 100 mg/ Sodium Chloride/ Miscellaneous Information 100 mls @ 1 mls/ hr IV TITR RENITA; 1 MG/HR PRN Reason: Protocol Last Admin: 12/15/16 22:07 Dose: 4 mg/hr, 4 mls/hr Fentanyl Citrate (Fentanyl Drip Premix) 2,000 mcg in 100 mls @ 4.875 mls/hr IV TITR RENITA; 1 MCG/KG/HR PRN Reason: Protocol Last Titration: 12/16/16 17:31 Dose: 4 mcg/kg/hr, 19.5 mls/hr Midazolam HCl (Versed/Ns 100mg/100ml) 100 mg in 100 mls @ 1 mls/hr IV TITR RENITA ; 1 MG/HR PRN Reason: Protocol Last Admin: 12/16/16 20:00 Dose: 1 mg/hr, 1 mls/hr Vasopressin 20 unit/ Sodium (Chloride) 101 mls @ 9.09 mls/hr IV TITR RENITA; 0.03 UNITS/MIN PRN Reason: Protocol Last Titration: 12/18/16 06:38 Dose: 0.04 units/min, 12.12 mls/hr Norepinephrine 8 mg/ Sodium (Chloride) 250 mls @ 3.75 mls/hr IV TITR RENITA; 2 MCG /MIN PRN Reason: Protocol Last Admin: 12/17/16 20:48 Dose: 5 mcg/min, 9.37 mls/hr Insulin Human Regular 100 (units/ Sodium Chloride) 100 mls @ 1 mls/hr IV TITR RENITA; 1 UNITS/HR PRN Reason: Protocol Last Titration: 12/18/16 14:00 Dose: 4.5 units/hr, 4.5 mls/hr Dopamine HCl/Dextrose (Intropin Drip 800 Mg/D5w 250 Ml) 800 mg in 250 mls @ 9.138 mls/hr IV TITR RENITA; 5 MCG/KG/MIN PRN Reason: Protocol Last Admin: 12/17/16 08:34 Dose: 5 mcg/kg/min, 9.138 mls/hr Linezolid (Zyvox 600mg/300ml) 600 mg in 300 mls @ 300 mls/hr IV Q12H RENITA PRN Reason: Protocol Last Admin: 12/18/16 09:22 Dose: 300 mls/hr Fluconazole (Diflucan) 200 mg in 100 mls @ 100 mls/hr IV Q24H RENITA PRN Reason: Protocol Last Admin: 12/17/16 21:28 Dose: 100 mls/hr Piperacillin Sod/Tazobactam Sod (Zosyn/Ns 2.25 Gm/50ml) 2.25 gm in 50 mls @ 100 mls/hr IV Q8H RENITA PRN Reason: Protocol Last Admin: 12/18/16 05:58 Dose: 100 mls/hr Sodium Chloride (Nacl 0.9%) 100 mls @ 999 mls/hr IV AURELIO PRN PRN Reason: Hypotension Sodium Chloride (Nacl 0.9%) 100 mls @ 999 mls/hr IV AURELIO PRN PRN Reason: Hypotension Metoclopramide HCl (Reglan) 5 mg IV Q8H RENITA Last Admin: 12/18/16 05:58 Dose: 5 mg Metoprolol Tartrate (Lopressor) 5 mg IV Q6HR PRN PRN Reason: Tachyarrhythmias Multi-Ingred Cream/Lotion/Oil/Oint (Artificial Tears Ophth Oint) 1 applic OU Q4HR PRN PRN Reason: Dry Eye(s) Multivitamins (Centrum Liq) 5 ml PO QDAY [facility] Last Admin: 12/18/16 09:22 Dose: 5 ml Pantoprazole Sodium (Protonix) 40 mg IV QDAY [facility] Last Admin: 12/18/16 09:22 Dose: 40 mg Simple Syrup (Simple Syrup) 15 ml FEEDTUBE PRN PRN PRN Reason: Hypoglycemia Simple Syrup (Simple Syrup) 30 ml FEEDTUBE PRN PRN PRN Reason: Hypoglycemia Simvastatin (Zocor) 20 mg PO QHS [facility] Last Admin: 12/17/16 21:28 Dose: 20 mg Sodium Bicarbonate (Sodium Bicarbonate) 325 mg FEEDTUBE PRN PRN PRN Reason: For Clogged Feeding Tube Sodium Polystyrene Sulfonate (Kionex) 15 gm PO Q6HR PRN PRN Reason: Hyperkalemia Thiamine HCl (Vitamin B-1) 100 mg PO QDAY [facility] Last Admin: 12/18/16 09:22 Dose: 100 mg Review of Systems All systems: negative (intubated) Exam - Constitutional Vitals: Temp Pulse Resp BP Pulse Ox 99.5 F 109 H 24 104/61 90 12/18/16 12:00 12/18/16 14:20 12/18/16 14:15 12/18/16 14:20 12/18/16 14:20 General appearance: Present: other (intubated) - EENT ENT: other (intubated) - Neck Neck: Present: other (the right subclavian line has blood around the entry site) - Respiratory Respiratory effort: other (intubated) - Psychiatric Psychiatric: other (intubated) Results - Labs CBC & Chem 7: 12/18/16 06:07 12/18/16 09:00 Labs: Abnormal lab results 12/17/16 12/17/16 12/17/16 Range/Units 14:45 15:07 16:03 RBC (3.65-5.03) M/mm3 Hgb (11.8-15.2) gm/dl Hct (35.5-45.6) % Plt Count (140-440) K/mm3 PT (12.2-14.9) Sec. INR (0.87-1.13) POC ABG pH (7.35-7.45) POC ABG pCO2 (35-45) POC ABG pO2 (80-105) Sodium 146 H (137-145) mmol/L Potassium 5.3 H (3.6-5.0) mmol/L Chloride 109.3 H (98-107) mmol/L Carbon Dioxide 15 L (22-30) mmol/L BUN 128 H (9-20) mg/dL Creatinine 5.5 H (0.8-1.5) mg/dL Glucose 426 H (75-100) mg/dL POC Glucose 392 H 450 H (70-105) Lactic Acid (0.7-2.0) mmol/L Calcium 6.7 L (8.4-10.2) mg/dL 12/17/16 12/17/16 12/17/16 Range/Units 16:56 18:00 18:10 RBC (3.65-5.03) M/mm3 Hgb (11.8-15.2) gm/dl Hct (35.5-45.6) % Plt Count (140-440) K/mm3 PT (12.2-14.9) Sec. INR (0.87-1.13) POC ABG pH (7.35-7.45) POC ABG pCO2 (35-45) POC ABG pO2 (80-105) Sodium 147 H (137-145) mmol/L Potassium (3.6-5.0) mmol/L Chloride 109.7 H (98-107) mmol/L Carbon Dioxide 15 L (22-30) mmol/L BUN 140 H (9-20) mg/dL Creatinine 5.2 H (0.8-1.5) mg/dL Glucose 301 H (75-100) mg/dL POC Glucose 352 H 318 H (70-105) Lactic Acid (0.7-2.0) mmol/L Calcium 6.5 L (8.4-10.2) mg/dL 12/17/16 12/17/16 12/17/16 Range/Units 18:38 19:31 20:00 RBC (3.65-5.03) M/mm3 Hgb (11.8-15.2) gm/dl Hct (35.5-45.6) % Plt Count (140-440) K/mm3 PT 17.7 H (12.2-14.9) Sec. INR 1.46 H (0.87-1.13) POC ABG pH (7.35-7.45) POC ABG pCO2 30.5 L (35-45) POC ABG pO2 134 H (80-105) Sodium (137-145) mmol/L Potassium (3.6-5.0) mmol/L Chloride (98-107) mmol/L Carbon Dioxide (22-30) mmol/L BUN (9-20) mg/dL Creatinine (0.8-1.5) mg/dL Glucose (75-100) mg/dL POC Glucose 256 H (70-105) Lactic Acid (0.7-2.0) mmol/L Calcium (8.4-10.2) mg/dL 12/17/16 12/17/16 12/17/16 Range/Units 20:44 21:59 23:18 RBC (3.65-5.03) M/mm3 Hgb (11.8-15.2) gm/dl Hct (35.5-45.6) % Plt Count (140-440) K/mm3 PT (12.2-14.9) Sec. INR (0.87-1.13) POC ABG pH (7.35-7.45) POC ABG pCO2 (35-45) POC ABG pO2 (80-105) Sodium (137-145) mmol/L Potassium (3.6-5.0) mmol/L Chloride (98-107) mmol/L Carbon Dioxide (22-30) mmol/L BUN (9-20) mg/dL Creatinine (0.8-1.5) mg/dL Glucose (75-100) mg/dL POC Glucose 189 H 191 H 132 H (70-105) Lactic Acid (0.7-2.0) mmol/L Calcium (8.4-10.2) mg/dL 12/18/16 12/18/16 12/18/16 Range/Units 00:15 00:18 01:08 RBC (3.65-5.03) M/mm3 Hgb (11.8-15.2) gm/dl Hct (35.5-45.6) % Plt Count (140-440) K/mm3 PT (12.2-14.9) Sec. INR (0.87-1.13) POC ABG pH (7.35-7.45) POC ABG pCO2 (35-45) POC ABG pO2 (80-105) Sodium 147 H (137-145) mmol/L Potassium 5.2 H (3.6-5.0) mmol/L Chloride 107.9 H (98-107) mmol/L Carbon Dioxide 18 L (22-30) mmol/L BUN 143 H (9-20) mg/dL Creatinine 5.6 H (0.8-1.5) mg/dL Glucose 152 H (75-100) mg/dL POC Glucose 190 H 157 H (70-105) Lactic Acid (0.7-2.0) mmol/L Calcium 6.3 L (8.4-10.2) mg/dL 12/18/16 12/18/16 12/18/16 Range/Units 02:35 03:14 04:11 RBC (3.65-5.03) M/mm3 Hgb (11.8-15.2) gm/dl Hct (35.5-45.6) % Plt Count (140-440) K/mm3 PT (12.2-14.9) Sec. INR (0.87-1.13) POC ABG pH (7.35-7.45) POC ABG pCO2 (35-45) POC ABG pO2 (80-105) Sodium (137-145) mmol/L Potassium (3.6-5.0) mmol/L Chloride (98-107) mmol/L Carbon Dioxide (22-30) mmol/L BUN (9-20) mg/dL Creatinine (0.8-1.5) mg/dL Glucose (75-100) mg/dL POC Glucose 144 H 117 H 108 H (70-105) Lactic Acid (0.7-2.0) mmol/L Calcium (8.4-10.2) mg/dL 12/18/16 12/18/16 12/18/16 Range/Units 05:07 05:23 06:07 RBC (3.65-5.03) M/mm3 Hgb (11.8-15.2) gm/dl Hct (35.5-45.6) % Plt Count (140-440) K/mm3 PT (12.2-14.9) Sec. INR (0.87-1.13) POC ABG pH 7.485 H (7.35-7.45) POC ABG pCO2 27.5 L (35-45) POC ABG pO2 275 H (80-105) Sodium (137-145) mmol/L Potassium (3.6-5.0) mmol/L Chloride (98-107) mmol/L Carbon Dioxide (22-30) mmol/L BUN (9-20) mg/dL Creatinine (0.8-1.5) mg/dL Glucose (75-100) mg/dL POC Glucose 122 H (70-105) Lactic Acid 3.2 H* (0.7-2.0) mmol/L Calcium (8.4-10.2) mg/dL 12/18/16 12/18/16 12/18/16 Range/Units 06:07 06:08 06:22 RBC 3.18 L (3.65-5.03) M/mm3 Hgb 9.6 L (11.8-15.2) gm/dl Hct 29.0 L D (35.5-45.6) % Plt Count 130 L (140-440) K/mm3 PT 18.3 H (12.2-14.9) Sec. INR 1.52 H (0.87-1.13) POC ABG pH (7.35-7.45) POC ABG pCO2 (35-45) POC ABG pO2 (80-105) Sodium (137-145) mmol/L Potassium (3.6-5.0) mmol/L Chloride (98-107) mmol/L Carbon Dioxide (22-30) mmol/L BUN (9-20) mg/dL Creatinine (0.8-1.5) mg/dL Glucose (75-100) mg/dL POC Glucose 159 H (70-105) Lactic Acid (0.7-2.0) mmol/L Calcium (8.4-10.2) mg/dL 12/18/16 12/18/16 12/18/16 Range/Units 07:26 08:27 09:00 RBC (3.65-5.03) M/mm3 Hgb (11.8-15.2) gm/dl Hct (35.5-45.6) % Plt Count (140-440) K/mm3 PT (12.2-14.9) Sec. INR (0.87-1.13) POC ABG pH (7.35-7.45) POC ABG pCO2 (35-45) POC ABG pO2 (80-105) Sodium 147 H (137-145) mmol/L Potassium 5.5 H (3.6-5.0) mmol/L Chloride (98-107) mmol/L Carbon Dioxide 17 L (22-30) mmol/L BUN 145 H (9-20) mg/dL Creatinine 6.4 H (0.8-1.5) mg/dL Glucose 213 H (75-100) mg/dL POC Glucose 198 H 220 H (70-105) Lactic Acid (0.7-2.0) mmol/L Calcium 6.0 L (8.4-10.2) mg/dL 12/18/16 12/18/16 12/18/16 Range/Units 09:30 10:29 11:11 RBC (3.65-5.03) M/mm3 Hgb (11.8-15.2) gm/dl Hct (35.5-45.6) % Plt Count (140-440) K/mm3 PT (12.2-14.9) Sec. INR (0.87-1.13) POC ABG pH (7.35-7.45) POC ABG pCO2 (35-45) POC ABG pO2 (80-105) Sodium (137-145) mmol/L Potassium (3.6-5.0) mmol/L Chloride (98-107) mmol/L Carbon Dioxide (22-30) mmol/L BUN (9-20) mg/dL Creatinine (0.8-1.5) mg/dL Glucose (75-100) mg/dL POC Glucose 216 H 248 H 214 H (70-105) Lactic Acid (0.7-2.0) mmol/L Calcium (8.4-10.2) mg/dL - Imaging and Cardiology Chest x-ray: report reviewed, image reviewed Assessment and Plan 61-year-old male with multiple medical problems including severe cardiomyopathy with limited ejection fraction and possible arterial line placement with need for dialysis. Chest x-ray demonstrates that the line terminates in the region overlying the innominate vessels. Discussed with nursing who will be attaching the line for waveform monitoring. ABG is being obtained. Blood will be obtained from the line and compared to the ABG. CT brain is negative. Given the patient's severe comorbidities, if this represents arterial line, will start heparin and attach all the lumens to KVO normal saline to prevent clot formation. We'll then plan on reevaluating the patient daily to determine when intervention can be performed. This will likely take place in the Sample Display Preparer. We'll plan on placing hemodialysis catheter in the left groin. This was discussed with the company accountant caring for the patient.
[2016-12-18] MEDS ORDERED: NACL 0.9% 500 ML 1,500 ML ONE (14:55)
[2016-12-18 14:58] LABS: ISTAT Base Excess -4; ISTAT HCO3 20.2; ISTAT PCO2 29.2 (35-45); ISTAT PH 7.448 (7.35-7.45); ISTAT PO2 93 (80-105); ISTAT SO2 98; ISTAT TCO2 21
[2016-12-18 14:58] LABS: ISTAT Base Excess -7; ISTAT HCO3 16.7; ISTAT PCO2 24.2 (35-45); ISTAT PH 7.446 (7.35-7.45); ISTAT PO2 91 (80-105); ISTAT SO2 98; ISTAT TCO2 17
[2016-12-18] MEDS ORDERED: NACL 0.9% 500 ML 500 ML IV PRN ×2 (15:12→15:35)
[2016-12-18] MEDS ORDERED: HEPARIN 1,000 UNIT in NACL 0.9% 500 ML 500 ML IV PRN (15:27)
--- NOTE | 2016-12-18 15:54 | Progress Note ---
Assessment and Plan Assessment and plan: Septic shock - resolved, off Pressor support, cont ivf, abx, supportive care, - liklely due to underlying PNA Acute Respiratory failure - intubated now, Pulmonary following, - periodic breathing treatment, Acute encephalopathy - head CT showed no acute finding - neurology following - will do MRI when he is more stable Systolic CHF, acute on chronic - Cardiology consulted, supportive care for now. - on aspirin, statin, hold beta aries for now BRITTANY - nephrology following - started on HD today - likely due to ATN from septic shock Hyperkalemia - s/p bicarbonate, calcium chloride, kayexalate with tube - monitor BMP frequently Diabetes type 2 with DKA - cont on insulin drip - cont tube feeding, monitor BG q1h PNA, with Strep Pneumoniae - cont abx, repeat culture so far negative Bacteremia - one out of two cx positive for micrococcus - on clindamycin and levaquin Febrile illness - cont abx - off haldol and seroquel for possible drug fever Sinus tachycardia - due to septic shock - cont supportive care Hypernatremia - improved - monitor BMP h/o hepatitis c with h/o alcohol abuse - get hepatitis pannel - monitor LFT Subclavian artery injury - vascular surgeon following - started on heparin drip The high probability of a clinically significant, sudden or life threatening deterioration of the [respiratory, cardiac] system(s) required my full and direct attention, intervention and personal management. The aggregate critical care time was [48] minutes. This time is in addition to time spent performing reported procedures but includes the following: [x] Data Review and interpretation [x] Patient assessment and monitoring of vital signs [x] Documentation [x] Medication orders and management History Interval history: Pt seen and examined, remained intubated, urinary output declined, placed on vascath for HD Off pressor this am. Got new TLC on rt femoral region Vascular surgeon following for inadvertent subclavian artery canulation Updated his POA daughter at bedside and by phone Hospitalist Physical - Physical exam Narrative exam: General appearance: Present: mild distress, obese, other (orally intubated.) - EENT Eyes: Present: conjunctival injection. Absent: irregular pupil, scleral icterus ENT: dentition normal, no thrush, no ulcerations - Neck Neck: Absent: rigidity, enlarged thyroid, cervical LAD - Respiratory Respiratory: bilateral: rales - Cardiovascular Rhythm: other (tachycardic) Heart Sounds: Present: S1 & S2 - Extremities Extremities: no ischemia, pulses intact Peripheral Pulses: within normal limits - Abdominal General gastrointestinal: soft, non-tender, non-distended, normal bowel sounds - Integumentary Integumentary: Present: warm, dry - Neurologic Neurologic: does not follow commend (not sedated) - Constitutional Vitals: Temp Pulse Resp BP Pulse Ox 99.5 F 108 H 26 H 82/56 100 12/18/16 12:00 12/18/16 15:37 12/18/16 15:36 12/18/16 15:37 12/18/16 15:37 General appearance: Present: other (intubated) Results - Labs CBC & Chem 7: 12/18/16 16:55 12/18/16 09:00 Labs: Laboratory Last Values WBC 8.6 K/mm3 (4.5-11.0) 12/18/16 06:07 RBC 3.18 M/mm3 (3.65-5.03) L 12/18/16 06:07 Hgb 9.6 gm/dl (11.8-15.2) L 12/18/16 06:07 Hct 29.0 % (35.5-45.6) L D 12/18/16 06:07 MCV 91 fl (84-94) D 12/18/16 06:07 MCH 30 pg (28-32) 12/18/16 06:07 MCHC 33 % (32-34) 12/18/16 06:07 RDW 13.7 % (13.2-15.2) 12/18/16 06:07 Plt Count 130 K/mm3 (140-440) L 12/18/16 06:07 Lymph % (Auto) 23.3 % (13.4-35.0) 12/18/16 06:07 [place] % (Auto) 7.3 % (0.0-7.3) 12/18/16 06:07 Eos % (Auto) 0.0 % (0.0-4.3) 12/18/16 06:07 Baso % (Auto) 0.8 % (0.0-1.8) 12/18/16 06:07 Lymph # 2.0 K/mm3 (1.2-5.4) 12/18/16 06:07 [place] # 0.6 K/mm3 (0.0-0.8) 12/18/16 06:07 Eos # 0.0 K/mm3 (0.0-0.4) 12/18/16 06:07 Baso # 0.1 K/mm3 (0.0-0.1) 12/18/16 06:07 Seg Neutrophils % 68.6 % (40.0-70.0) 12/18/16 06:07 Seg Neutrophils # 5.9 K/mm3 (1.8-7.7) 12/18/16 06:07 PT 18.3 Sec. (12.2-14.9) H 12/18/16 06:22 INR 1.52 (0.87-1.13) H 12/18/16 06:22 APTT 29.1 Sec. (24.2-36.6) 12/06/16 16:07 D-Dimer 586.01 ng/mlDDU (0-234) H 12/14/16 18:03 POC ABG pH 7.446 (7.35-7.45) 12/18/16 14:52 POC ABG pCO2 24.2 (35-45) L 12/18/16 14:52 POC ABG pO2 91 (80-105) 12/18/16 14:52 POC ABG HCO3 16.7 12/18/16 14:52 POC ABG Total CO2 17 12/18/16 14:52 POC ABG O2 Sat 98 12/18/16 14:52 POC ABG Base Excess -7 12/18/16 14:52 FiO2 40 % 12/18/16 14:52 Sodium 147 mmol/L (137-145) H 12/18/16 09:00 Potassium 5.5 mmol/L (3.6-5.0) H 12/18/16 09:00 Chloride 106.0 mmol/L (98-107) 12/18/16 09:00 Carbon Dioxide 17 mmol/L (22-30) L 12/18/16 09:00 Anion Gap 30 mmol/L 12/18/16 09:00 BUN 145 mg/dL (9-20) H 12/18/16 09:00 Creatinine 6.4 mg/dL (0.8-1.5) H 12/18/16 09:00 Estimated GFR 9 ml/min 12/18/16 09:00 BUN/Creatinine Ratio 22.65 % 12/18/16 09:00 Glucose 213 mg/dL (75-100) H 12/18/16 09:00 POC Glucose 139 (70-105) H 12/18/16 15:14 Lactic Acid 1.9 mmol/L (0.7-2.0) 12/18/16 09:00 Calcium 6.0 mg/dL (8.4-10.2) L 12/18/16 09:00 Phosphorus 9.5 mg/dL (2.5-4.5) H 12/17/16 09:10 Magnesium 2.5 mg/dL (1.7-2.3) H 12/17/16 09:10 Total Bilirubin 0.6 mg/dL (0.1-1.2) 12/17/16 06:45 Direct Bilirubin 0.7 mg/dL (0-0.2) H 12/07/16 05:30 Indirect Bilirubin 0.4 mg/dL 12/07/16 05:30 AST 323 units/L (5-40) H 12/17/16 06:45 ALT 56 units/L (7-56) 12/17/16 06:45 Alkaline Phosphatase 27 units/L (35-129) L 12/17/16 06:45 Ammonia 42.0 umol/L (25-60) 12/06/16 16:07 Total Creatine Kinase 242 units/L (55-170) H 12/07/16 06:58 CK-MB (CK-2) 2.8 ng/mL (0.0-4.0) 12/07/16 06:58 CK-MB (CK-2) Rel Index 1.1 (0-4) 12/07/16 06:58 Troponin T < 0.010 ng/mL (0.00-0.029) 12/07/16 06:58 C-Reactive Protein 1.20 mg/dL (0.00-1.30) 12/15/16 11:37 Total Protein 6.6 g/dL (6.3-8.2) 12/17/16 06:45 Albumin 2.3 g/dL (3.9-5) L 12/17/16 06:45 Albumin/Globulin Ratio 0.5 % 12/17/16 06:45 Vitamin B12 815.1 pg/mL (211-911) 12/15/16 09:15 TSH 0.204 mlU/mL (0.270-4.200) L 12/15/16 13:40 Free T4 1.16 ng/dL (0.76-1.46) 12/15/16 13:40 Urine Color Winsome (Yellow) 12/06/16 15:30 Urine Turbidity Clear (Clear) 12/06/16 15:30 Urine pH 6.0 (5.0-7.0) 12/06/16 15:30 Ur Specific [place] 1.017 (1.003-1.030) 12/06/16 15:30 Urine Protein 100 mg/dl mg/dL (Negative) 12/06/16 15:30 Urine Glucose (UA) 50 mg/dL (Negative) 12/06/16 15:30 Urine Ketones Neg mg/dL (Negative) 12/06/16 15:30 Urine Blood Sm (Negative) 12/06/16 15:30 Urine Nitrite Neg (Negative) 12/06/16 15:30 Urine Bilirubin Neg (Negative) 12/06/16 15:30 Urine Urobilinogen 4.0 mg/dL (<2.0) 12/06/16 15:30 Ur Leukocyte Esterase Neg (Negative) 12/06/16 15:30 Urine WBC (Auto) < 1.0 /HPF (0.0-6.0) 12/06/16 15:30 Urine RBC (Auto) 4.0 /HPF (0.0-6.0) 12/06/16 15:30 Urine Mucus Few /HPF 12/06/16 15:30 Vancomycin Trough 33.7 ug/mL (5.0-20.0) H 12/16/16 18:34 Salicylates < 0.3 mg/dL (2.8-20.0) L 12/06/16 16:07 Urine Opiates Screen Presumptive negative 12/06/16 15:30 Urine Methadone Screen Presumptive negative 12/06/16 15:30 Acetaminophen < 15.0 ug/mL (10.0-30.0) 12/06/16 16:07 Ur Barbiturates Screen Presumptive negative 12/06/16 15:30 Ur Phencyclidine Scrn Presumptive negative 12/06/16 15:30 Ur Amphetamines Screen Presumptive negative 12/06/16 15:30 U Benzodiazepines Scrn Presumptive negative 12/06/16 15:30 Urine Cocaine Screen Presumptive negative 12/06/16 15:30 U Marijuana (THC) Screen Presumptive negative 12/06/16 15:30 Drugs of Abuse Note Disclamer 12/06/16 15:30 Plasma/Serum Alcohol < 0.01 gm% (0-0.07) 12/06/16 16:07
[2016-12-18] MEDS ORDERED: HEPARIN 1,000 UNIT in NACL 0.9% 500 ML 500 ML IV SCH (16:15)
--- NOTE | 2016-12-18 16:51 | Operative Report ---
Operative Report Operative Report: Operative note: Date: 12/18/2016 Preoperative diagnosis: Renal failure Postoperative diagnosis: Same. Operation: Left femoral Vas-Cath insertion Surgeon: Roslyn Aaltorre. Asst.: None Anesthesia: Local with moderate sedation EBL: Minimal Findings: None Indications: ICU patient with multiple medical problems requiring hemodialysis Operative details: Patient was positioned supine, prepped and draped left groin in a sterile fashion. After timeout performed and all team members in the agreement left femoral vein was accessed under ultrasound guidance with was anesthetized with 1% lidocaine and accessed with the access needle. Wire was advanced in the femoral vein and IVC skin incision was made with 11 blade and serially dilated skin past with subsequent insertion of Vas-Cath catheter 30 cm in length. Ports were checked for good flow and flushed with saline. Catheter was secured in place with 3-0 nylon stitches and sterile dressing applied. He tolerated the procedure well.
[2016-12-18 17:18] LABS: Hematocrit 33.9 % (35.5-45.6); Hemoglobin 11.4 gm/dl (11.8-15.2)
[2016-12-18 17:43] LABS: INR 1.58 (0.87-1.13); Partial Thromboplastin Time 34.5 Sec. (24.2-36.6)
--- NOTE | 2016-12-18 18:41 | Progress Note ---
Subjective Date of service: 12/18/16 Principal diagnosis: Acute hypoxemic respiratory failure, shock Interval history: No new issues PHYSICAL EXAM Vital signs - temp afebrile. chest - mild b/l rhonchi cvs - s1s2 abd - bs+ LABS See lab section cxr - left sided infilterates. ASSESSMENT 1. Pneumonia 2. Acute respiratory failure 3. Encephalopathy 4. CHF RECOMMENDATION 1. cbc/bmp in am 2. continue current antibiotics. Objective - Constitutional Vitals: Vital Signs Temp Pulse Resp BP Pulse Ox 99.5 F 110 H 28 H 137/90 96 12/18/16 16:45 12/18/16 18:31 12/18/16 18:00 12/18/16 18:31 12/18/16 18:00 Temperature -Last 24 Hours Temperature 99.5 F Temperature 99.5 F Temperature 99.5 F Temperature 99.4 F Temperature 101.2 F Temperature 102.8 F Temperature 102.6 F - Labs CBC & Chem 7: 12/18/16 16:55 12/18/16 09:00 Labs: Abnormal lab results 12/17/16 12/17/16 12/17/16 Range/Units 18:10 18:38 19:31 RBC (3.65-5.03) M/mm3 Hgb (11.8-15.2) gm/dl Hct (35.5-45.6) % Plt Count (140-440) K/mm3 PT (12.2-14.9) Sec. INR (0.87-1.13) POC ABG pH (7.35-7.45) POC ABG pCO2 30.5 L (35-45) POC ABG pO2 134 H (80-105) Sodium 147 H (137-145) mmol/L Potassium (3.6-5.0) mmol/L Chloride 109.7 H (98-107) mmol/L Carbon Dioxide 15 L (22-30) mmol/L BUN 140 H (9-20) mg/dL Creatinine 5.2 H (0.8-1.5) mg/dL Glucose 301 H (75-100) mg/dL POC Glucose 256 H (70-105) Lactic Acid (0.7-2.0) mmol/L Calcium 6.5 L (8.4-10.2) mg/dL 12/17/16 12/17/16 12/17/16 Range/Units 20:00 20:44 21:59 RBC (3.65-5.03) M/mm3 Hgb (11.8-15.2) gm/dl Hct (35.5-45.6) % Plt Count (140-440) K/mm3 PT 17.7 H (12.2-14.9) Sec. INR 1.46 H (0.87-1.13) POC ABG pH (7.35-7.45) POC ABG pCO2 (35-45) POC ABG pO2 (80-105) Sodium (137-145) mmol/L Potassium (3.6-5.0) mmol/L Chloride (98-107) mmol/L Carbon Dioxide (22-30) mmol/L BUN (9-20) mg/dL Creatinine (0.8-1.5) mg/dL Glucose (75-100) mg/dL POC Glucose 189 H 191 H (70-105) Lactic Acid (0.7-2.0) mmol/L Calcium (8.4-10.2) mg/dL 12/17/16 12/18/16 12/18/16 Range/Units 23:18 00:15 00:18 RBC (3.65-5.03) M/mm3 Hgb (11.8-15.2) gm/dl Hct (35.5-45.6) % Plt Count (140-440) K/mm3 PT (12.2-14.9) Sec. INR (0.87-1.13) POC ABG pH (7.35-7.45) POC ABG pCO2 (35-45) POC ABG pO2 (80-105) Sodium 147 H (137-145) mmol/L Potassium 5.2 H (3.6-5.0) mmol/L Chloride 107.9 H (98-107) mmol/L Carbon Dioxide 18 L (22-30) mmol/L BUN 143 H (9-20) mg/dL Creatinine 5.6 H (0.8-1.5) mg/dL Glucose 152 H (75-100) mg/dL POC Glucose 132 H 190 H (70-105) Lactic Acid (0.7-2.0) mmol/L Calcium 6.3 L (8.4-10.2) mg/dL 12/18/16 12/18/16 12/18/16 Range/Units 01:08 02:35 03:14 RBC (3.65-5.03) M/mm3 Hgb (11.8-15.2) gm/dl Hct (35.5-45.6) % Plt Count (140-440) K/mm3 PT (12.2-14.9) Sec. INR (0.87-1.13) POC ABG pH (7.35-7.45) POC ABG pCO2 (35-45) POC ABG pO2 (80-105) Sodium (137-145) mmol/L Potassium (3.6-5.0) mmol/L Chloride (98-107) mmol/L Carbon Dioxide (22-30) mmol/L BUN (9-20) mg/dL Creatinine (0.8-1.5) mg/dL Glucose (75-100) mg/dL POC Glucose 157 H 144 H 117 H (70-105) Lactic Acid (0.7-2.0) mmol/L Calcium (8.4-10.2) mg/dL 12/18/16 12/18/16 12/18/16 Range/Units 04:11 05:07 05:23 RBC (3.65-5.03) M/mm3 Hgb (11.8-15.2) gm/dl Hct (35.5-45.6) % Plt Count (140-440) K/mm3 PT (12.2-14.9) Sec. INR (0.87-1.13) POC ABG pH 7.485 H (7.35-7.45) POC ABG pCO2 27.5 L (35-45) POC ABG pO2 275 H (80-105) Sodium (137-145) mmol/L Potassium (3.6-5.0) mmol/L Chloride (98-107) mmol/L Carbon Dioxide (22-30) mmol/L BUN (9-20) mg/dL Creatinine (0.8-1.5) mg/dL Glucose (75-100) mg/dL POC Glucose 108 H 122 H (70-105) Lactic Acid (0.7-2.0) mmol/L Calcium (8.4-10.2) mg/dL 12/18/16 12/18/16 12/18/16 Range/Units 06:07 06:07 06:08 RBC 3.18 L (3.65-5.03) M/mm3 Hgb 9.6 L (11.8-15.2) gm/dl Hct 29.0 L D (35.5-45.6) % Plt Count 130 L (140-440) K/mm3 PT (12.2-14.9) Sec. INR (0.87-1.13) POC ABG pH (7.35-7.45) POC ABG pCO2 (35-45) POC ABG pO2 (80-105) Sodium (137-145) mmol/L Potassium (3.6-5.0) mmol/L Chloride (98-107) mmol/L Carbon Dioxide (22-30) mmol/L BUN (9-20) mg/dL Creatinine (0.8-1.5) mg/dL Glucose (75-100) mg/dL POC Glucose 159 H (70-105) Lactic Acid 3.2 H* (0.7-2.0) mmol/L Calcium (8.4-10.2) mg/dL 12/18/16 12/18/16 12/18/16 Range/Units 06:22 07:26 08:27 RBC (3.65-5.03) M/mm3 Hgb (11.8-15.2) gm/dl Hct (35.5-45.6) % Plt Count (140-440) K/mm3 PT 18.3 H (12.2-14.9) Sec. INR 1.52 H (0.87-1.13) POC ABG pH (7.35-7.45) POC ABG pCO2 (35-45) POC ABG pO2 (80-105) Sodium (137-145) mmol/L Potassium (3.6-5.0) mmol/L Chloride (98-107) mmol/L Carbon Dioxide (22-30) mmol/L BUN (9-20) mg/dL Creatinine (0.8-1.5) mg/dL Glucose (75-100) mg/dL POC Glucose 198 H 220 H (70-105) Lactic Acid (0.7-2.0) mmol/L Calcium (8.4-10.2) mg/dL 12/18/16 12/18/16 12/18/16 Range/Units 09:00 09:30 10:29 RBC (3.65-5.03) M/mm3 Hgb (11.8-15.2) gm/dl Hct (35.5-45.6) % Plt Count (140-440) K/mm3 PT (12.2-14.9) Sec. INR (0.87-1.13) POC ABG pH (7.35-7.45) POC ABG pCO2 (35-45) POC ABG pO2 (80-105) Sodium 147 H (137-145) mmol/L Potassium 5.5 H (3.6-5.0) mmol/L Chloride (98-107) mmol/L Carbon Dioxide 17 L (22-30) mmol/L BUN 145 H (9-20) mg/dL Creatinine 6.4 H (0.8-1.5) mg/dL Glucose 213 H (75-100) mg/dL POC Glucose 216 H 248 H (70-105) Lactic Acid (0.7-2.0) mmol/L Calcium 6.0 L (8.4-10.2) mg/dL 12/18/16 12/18/16 12/18/16 Range/Units 11:11 12:05 13:06 RBC (3.65-5.03) M/mm3 Hgb (11.8-15.2) gm/dl Hct (35.5-45.6) % Plt Count (140-440) K/mm3 PT (12.2-14.9) Sec. INR (0.87-1.13) POC ABG pH (7.35-7.45) POC ABG pCO2 (35-45) POC ABG pO2 (80-105) Sodium (137-145) mmol/L Potassium (3.6-5.0) mmol/L Chloride (98-107) mmol/L Carbon Dioxide (22-30) mmol/L BUN (9-20) mg/dL Creatinine (0.8-1.5) mg/dL Glucose (75-100) mg/dL POC Glucose 214 H 165 H 133 H (70-105) Lactic Acid (0.7-2.0) mmol/L Calcium (8.4-10.2) mg/dL 12/18/16 12/18/16 12/18/16 Range/Units 13:59 14:45 14:52 RBC (3.65-5.03) M/mm3 Hgb (11.8-15.2) gm/dl Hct (35.5-45.6) % Plt Count (140-440) K/mm3 PT (12.2-14.9) Sec. INR (0.87-1.13) POC ABG pH (7.35-7.45) POC ABG pCO2 29.2 L 24.2 L (35-45) POC ABG pO2 (80-105) Sodium (137-145) mmol/L Potassium (3.6-5.0) mmol/L Chloride (98-107) mmol/L Carbon Dioxide (22-30) mmol/L BUN (9-20) mg/dL Creatinine (0.8-1.5) mg/dL Glucose (75-100) mg/dL POC Glucose 116 H (70-105) Lactic Acid (0.7-2.0) mmol/L Calcium (8.4-10.2) mg/dL 12/18/16 12/18/16 12/18/16 Range/Units 15:14 15:52 16:55 RBC (3.65-5.03) M/mm3 Hgb 11.4 L (11.8-15.2) gm/dl Hct 33.9 L (35.5-45.6) % Plt Count (140-440) K/mm3 PT (12.2-14.9) Sec. INR (0.87-1.13) POC ABG pH (7.35-7.45) POC ABG pCO2 (35-45) POC ABG pO2 (80-105) Sodium (137-145) mmol/L Potassium (3.6-5.0) mmol/L Chloride (98-107) mmol/L Carbon Dioxide (22-30) mmol/L BUN (9-20) mg/dL Creatinine (0.8-1.5) mg/dL Glucose (75-100) mg/dL POC Glucose 139 H 146 H (70-105) Lactic Acid (0.7-2.0) mmol/L Calcium (8.4-10.2) mg/dL 12/18/16 12/18/16 Range/Units 16:55 18:12 RBC (3.65-5.03) M/mm3 Hgb (11.8-15.2) gm/dl Hct (35.5-45.6) % Plt Count (140-440) K/mm3 PT 18.8 H (12.2-14.9) Sec. INR 1.58 H (0.87-1.13) POC ABG pH (7.35-7.45) POC ABG pCO2 (35-45) POC ABG pO2 (80-105) Sodium (137-145) mmol/L Potassium (3.6-5.0) mmol/L Chloride (98-107) mmol/L Carbon Dioxide (22-30) mmol/L BUN (9-20) mg/dL Creatinine (0.8-1.5) mg/dL Glucose (75-100) mg/dL POC Glucose 147 H (70-105) Lactic Acid (0.7-2.0) mmol/L Calcium (8.4-10.2) mg/dL
[2016-12-18] MEDS: HEPARIN IV PRN (19:09)
[2016-12-18] MEDS: DIFLUCAN 200 MG/100 ML BAG IV SCH (22:09)
[2016-12-18] MEDS: ZOCOR PO SCH (22:10)
[2016-12-19] MEDS: DUONEB 0.5 MG-3 MG/3 ML SOLN IH SCH ×5 (01:13→20:36)
[2016-12-19 05:13] LABS: Basophils % (Auto) 0.5 % (0.0-1.8); Eosinophils % (Auto) 0.3 % (0.0-4.3); Hematocrit 34.7 % (35.5-45.6); Hemoglobin 11.7 gm/dl (11.8-15.2); Mean Corpuscular HGB Conc 34 % (32-34); Mean Corpuscular Hemoglobin 30 pg (28-32); Platelet Count 160 K/mm3 (140-440); Red Blood Count 3.94 M/mm3 (3.65-5.03); Red Cell Distribution Width 13.6 % (13.2-15.2); White Blood Count 11.8 K/mm3 (4.5-11.0)
[2016-12-19 05:24] LABS: Mean Corpuscular Volume 89 fl (84-94)
[2016-12-19 05:40] LABS: Albumin 2.3 g/dL (3.9-5); Albumin/Globulin Ratio 0.6 %; BUN/Creatinine Ratio 22.04; Bilirubin,Total 0.9 mg/dL (0.1-1.2); Calcium 6.3 mg/dL (8.4-10.2); Chloride 99.6 mmol/L (98-107); Potassium 4.7 mmol/L (3.6-5.0); Total Protein 6.1 g/dL (6.3-8.2)
[2016-12-19 05:54] LABS: ISTAT Base Excess 0; ISTAT HCO3 22.2; ISTAT PH 7.539 (7.35-7.45); ISTAT PO2 89 (80-105); ISTAT SO2 98; ISTAT TCO2 23
[2016-12-19] MEDS: ZOSYN/NS 2.25 GM/50ML 2.25 GM/50 ML BAG IV SCH ×2 (06:33→15:53)
[2016-12-19] MEDS: NovoLIN R 100 UNITS in NACL 0.9% 99 ML IV SCH ×2 (06:33→23:49)
[2016-12-19] MEDS: HEPARIN SUB-Q SCH ×2 (06:48→15:54)
[2016-12-19] MEDS: REGLAN IV SCH (06:48)
--- NOTE | 2016-12-19 07:57 | Progress Note ---
Assessment and Plan Assessment: 1. Acute renal failure due to acute tubular necrosis in the setting of septic shock / ischemic cardiomyopathy. 2. Septic shock 3. Pneumonia 4. Acute respiratory failure w/ hypoxia now on vent support 5. ischemic cardiomyopathy with EF 35% 6. Hyperkalemia 7. metabolic acidosis, lactic acidosis 8. type 2 DM 9. Hypocalcemia Plan/Recommendations: 1. patient s/p HD yesterday x 2 hrs, improved azotemia/metabolic acidosis/ electrolyte balance. Will reschedule second HD today, with target UF 0.5L as tolerated 3. Continue supportive care for BRITTANY/ATN avoid nephrotoxins, NSAIDs, IV contrast , keep MAP >65mmHg. 4. continue vent support as per ICU team 5. continue ABXs as per ID. 6. on insulin gtt for glucose control. 7. Ca chloride for hypocalcemia, will use 2.5Ca bath w/ HD. D/w RN regarding renal care plan. total CCM time spent 36min. Subjective Date of service: 12/19/16 Principal diagnosis: Acute hypoxemic respiratory failure, shock Interval history: Pt s/p HD yesterday, short run of Vtach during HD reported. Pt required levophed support during HD. pt remains on vent. Objective - Vital Signs Vital signs: Vital Signs - 12hr 12/18/16 12/18/16 12/18/16 20:00 20:15 20:30 Temperature 98.6 F Pulse Rate 108 H 105 H 105 H Pulse Rate [ 105 H Anterior Bilateral Throughout] Pulse Rate [ 104 H From Monitor] Respiratory 22 25 H 23 Rate Respiratory 26 H Rate [Anterior Bilateral Throughout] Blood Pressure 85/58 130/75 128/77 O2 Sat by Pulse 97 98 100 Oximetry 12/18/16 12/18/16 12/18/16 20:45 21:00 21:15 Temperature Pulse Rate 103 H 104 H 107 H Pulse Rate [ Anterior Bilateral Throughout] Pulse Rate [ From Monitor] Respiratory 24 23 20 Rate Respiratory Rate [Anterior Bilateral Throughout] Blood Pressure 118/72 125/72 125/71 O2 Sat by Pulse 99 99 99 Oximetry 12/18/16 12/18/16 12/18/16 21:30 21:45 22:00 Temperature Pulse Rate 104 H 107 H 111 H Pulse Rate [ Anterior Bilateral Throughout] Pulse Rate [ From Monitor] Respiratory 23 25 H 24 Rate Respiratory Rate [Anterior Bilateral Throughout] Blood Pressure 122/74 126/86 140/77 O2 Sat by Pulse 99 99 99 Oximetry 12/18/16 12/18/16 12/18/16 22:15 22:30 22:45 Temperature Pulse Rate 111 H 115 H 111 H Pulse Rate [ Anterior Bilateral Throughout] Pulse Rate [ From Monitor] Respiratory 21 21 21 Rate Respiratory Rate [Anterior Bilateral Throughout] Blood Pressure 136/78 133/81 140/58 O2 Sat by Pulse 99 99 99 Oximetry 12/18/16 12/18/16 12/18/16 23:00 23:08 23:15 Temperature Pulse Rate 111 H 111 H 114 H Pulse Rate [ Anterior Bilateral Throughout] Pulse Rate [ From Monitor] Respiratory 20 24 23 Rate Respiratory Rate [Anterior Bilateral Throughout] Blood Pressure 114/70 112/79 117/82 O2 Sat by Pulse 99 99 99 Oximetry 12/18/16 12/18/16 12/18/16 23:30 23:45 23:52 Temperature 99.2 F Pulse Rate 111 H 107 H Pulse Rate [ Anterior Bilateral Throughout] Pulse Rate [ From Monitor] Respiratory 20 23 Rate Respiratory Rate [Anterior Bilateral Throughout] Blood Pressure 114/72 115/80 O2 Sat by Pulse 99 99 Oximetry 12/19/16 12/19/16 12/19/16 00:00 00:15 00:30 Temperature Pulse Rate 114 H 111 H 113 H Pulse Rate [ Anterior Bilateral Throughout] Pulse Rate [ From Monitor] Respiratory 25 H 22 25 H Rate Respiratory Rate [Anterior Bilateral Throughout] Blood Pressure 127/76 120/79 125/74 O2 Sat by Pulse 99 99 97 Oximetry 12/19/16 12/19/16 12/19/16 00:45 01:00 01:15 Temperature Pulse Rate 108 H 105 H 111 H Pulse Rate [ 111 H Anterior Bilateral Throughout] Pulse Rate [ From Monitor] Respiratory 25 H 22 24 Rate Respiratory 27 H Rate [Anterior Bilateral Throughout] Blood Pressure 105/75 111/72 111/77 O2 Sat by Pulse 97 97 99 Oximetry 12/19/16 12/19/16 12/19/16 01:30 01:45 02:00 Temperature Pulse Rate 108 H 106 H 107 H Pulse Rate [ Anterior Bilateral Throughout] Pulse Rate [ From Monitor] Respiratory 21 21 26 H Rate Respiratory Rate [Anterior Bilateral Throughout] Blood Pressure 115/75 107/69 115/69 O2 Sat by Pulse 98 98 98 Oximetry 12/19/16 12/19/16 12/19/16 02:15 02:30 02:45 Temperature Pulse Rate 106 H 107 H 118 H Pulse Rate [ Anterior Bilateral Throughout] Pulse Rate [ From Monitor] Respiratory 25 H 26 H 27 H Rate Respiratory Rate [Anterior Bilateral Throughout] Blood Pressure 114/73 119/69 96/65 O2 Sat by Pulse 98 99 99 Oximetry 12/19/16 12/19/16 12/19/16 03:00 03:15 03:30 Temperature Pulse Rate 122 H 111 H 108 H Pulse Rate [ Anterior Bilateral Throughout] Pulse Rate [ From Monitor] Respiratory 27 H 27 H 28 H Rate Respiratory Rate [Anterior Bilateral Throughout] Blood Pressure 112/74 108/68 115/69 O2 Sat by Pulse 99 98 99 Oximetry 12/19/16 12/19/16 12/19/16 03:46 04:00 04:15 Temperature 99.8 F H Pulse Rate 110 H 113 H 110 H Pulse Rate [ Anterior Bilateral Throughout] Pulse Rate [ From Monitor] Respiratory 29 H 26 H Rate Respiratory Rate [Anterior Bilateral Throughout] Blood Pressure 119/72 119/72 125/77 O2 Sat by Pulse 99 97 98 Oximetry 12/19/16 12/19/16 12/19/16 04:30 04:45 05:00 Temperature Pulse Rate 108 H 108 H 106 H Pulse Rate [ Anterior Bilateral Throughout] Pulse Rate [ From Monitor] Respiratory 26 H 27 H 27 H Rate Respiratory Rate [Anterior Bilateral Throughout] Blood Pressure 120/75 94/73 111/69 O2 Sat by Pulse 98 97 98 Oximetry 12/19/16 12/19/16 12/19/16 05:15 05:30 05:45 Temperature Pulse Rate 108 H 109 H 110 H Pulse Rate [ Anterior Bilateral Throughout] Pulse Rate [ From Monitor] Respiratory 27 H 29 H 30 H Rate Respiratory Rate [Anterior Bilateral Throughout] Blood Pressure 119/76 119/76 109/63 O2 Sat by Pulse 97 97 97 Oximetry 12/19/16 12/19/16 12/19/16 06:00 06:15 06:30 Temperature Pulse Rate 116 H 109 H 109 H Pulse Rate [ Anterior Bilateral Throughout] Pulse Rate [ From Monitor] Respiratory 23 29 H 29 H Rate Respiratory Rate [Anterior Bilateral Throughout] Blood Pressure 125/69 121/75 119/76 O2 Sat by Pulse 97 97 97 Oximetry 12/19/16 06:45 Temperature Pulse Rate 110 H Pulse Rate [ Anterior Bilateral Throughout] Pulse Rate [ From Monitor] Respiratory 27 H Rate Respiratory Rate [Anterior Bilateral Throughout] Blood Pressure 106/79 O2 Sat by Pulse 97 Oximetry - General Appearance General appearance: sedated on ventilator, intubated EENT: ATNC, PERRL, mucous membranes moist Neck: no JVD Respiratory: Present: Ronchi, Decreased Breath Sounds Cardiology: regular, S1S2 Gastrointestinal: normal, normoactive bowel sounds Integumentary: no rash, other (no edema ) Neurologic: obtunded - Lab 12/19/16 04:20 12/19/16 04:20 Most recent lab results Calcium 6.3 mg/dL (8.4-10.2) L 12/19/16 04:20 Phosphorus 5.4 mg/dL (2.5-4.5) H D 12/18/16 18:21 Magnesium 2.5 mg/dL (1.7-2.3) H 12/17/16 09:10
--- NOTE | 2016-12-19 11:03 | Progress Note ---
Assessment and Plan - Patient Problems (1) Acute hypoxemic respiratory failure Current Visit: Yes Status: Acute Plan to address problem: - intubated - continue aspiration precautions - continue bronchodilators and pulmonary toilet - wean FiO2 for sats > 94% - reduced set rate to 16/min - will begin PSV trials in am if tolerates (2) Altered mental status Current Visit: Yes Status: Acute Qualifiers: Altered mental status type: A Coma depth: C Coma timing: C Plan to address problem: - seen by neurology - prn sedation / benzo's - multi-factorial really including azotemia - will follow neuro recomendations but less agitated now (3) Cardiomyopathy Current Visit: Yes Status: Acute Plan to address problem: - despite CHF history he is likely volume dependent while with sepsis syndrome - continue volume resuscitation (conservative strategies though) - otherwise as per cardiology (4) Septic shock Current Visit: Yes Status: Acute Plan to address problem: - continue AB's per ID recs - r/o VTE re: fevers (dopplers negative but may benefit from CTA once more stable) - continue to wean vasopressors for MAP > 60-65mmHg - IVF per nephrology at this point (5) Atypical chest pain Current Visit: No Status: Acute Plan to address problem: - per cardiology (6) Diabetes Current Visit: No Status: Chronic Qualifiers: Diabetes mellitus type: D Diabetes mellitus complication status: D Diabetes mellitus complication detail: D Diabetic retinopathy severity: D Proliferative retinopathy type: P Diabetes mellitus macular edema: D Diabetes mellitus 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 - H&H holding (9) Discharge planning issues Current Visit: Yes Status: Acute Plan to address problem: - LTAC evaluation on hold for now ...he is critically ill on life sustaining interventions including MVS & vasopressors and at high risk for further deterioration including ...32' CCT Subjective Date of service: 12/19/16 Principal diagnosis: Acute hypoxemic respiratory failure, shock Interval history: Seen and examined at bedside; 24 hour events reviewed; nursing and respiratory care staff consulted; no adverse overnight events reported to me; remains on MVS ; following simple prompts; awaiting transfer to [facility] vs O.R. for removal of right subclavian artery line; no gross bleeding and H&H holding; went on pressors for dialysis but room to wean off. Objective Vital Signs - 12hr 12/18/16 12/18/16 12/18/16 22:45 23:00 23:08 Temperature Pulse Rate 111 H 111 H 111 H Pulse Rate [ Anterior Bilateral Throughout] Respiratory 21 20 24 Rate Respiratory Rate [Anterior Bilateral Throughout] Blood Pressure 140/58 114/70 112/79 O2 Sat by Pulse 99 99 99 Oximetry O2 Sat by Pulse Oximetry [ Anterior Bilateral Throughout] 12/18/16 12/18/16 12/18/16 23:15 23:30 23:45 Temperature Pulse Rate 114 H 111 H 107 H Pulse Rate [ Anterior Bilateral Throughout] Respiratory 23 20 23 Rate Respiratory Rate [Anterior Bilateral Throughout] Blood Pressure 117/82 114/72 115/80 O2 Sat by Pulse 99 99 99 Oximetry O2 Sat by Pulse Oximetry [ Anterior Bilateral Throughout] 12/18/16 12/19/16 12/19/16 23:52 00:00 00:15 Temperature 99.2 F Pulse Rate 114 H 111 H Pulse Rate [ Anterior Bilateral Throughout] Respiratory 25 H 22 Rate Respiratory Rate [Anterior Bilateral Throughout] Blood Pressure 127/76 120/79 O2 Sat by Pulse 99 99 Oximetry O2 Sat by Pulse Oximetry [ Anterior Bilateral Throughout] 12/19/16 12/19/16 12/19/16 00:30 00:45 01:00 Temperature Pulse Rate 113 H 108 H 105 H Pulse Rate [ Anterior Bilateral Throughout] Respiratory 25 H 25 H 22 Rate Respiratory Rate [Anterior Bilateral Throughout] Blood Pressure 125/74 105/75 111/72 O2 Sat by Pulse 97 97 97 Oximetry O2 Sat by Pulse Oximetry [ Anterior Bilateral Throughout] 12/19/16 12/19/16 12/19/16 01:15 01:30 01:45 Temperature Pulse Rate 111 H 108 H 106 H Pulse Rate [ 111 H Anterior Bilateral Throughout] Respiratory 24 21 21 Rate Respiratory 27 H Rate [Anterior Bilateral Throughout] Blood Pressure 111/77 115/75 107/69 O2 Sat by Pulse 99 98 98 Oximetry O2 Sat by Pulse Oximetry [ Anterior Bilateral Throughout] 12/19/16 12/19/16 12/19/16 02:00 02:15 02:30 Temperature Pulse Rate 107 H 106 H 107 H Pulse Rate [ Anterior Bilateral Throughout] Respiratory 26 H 25 H 26 H Rate Respiratory Rate [Anterior Bilateral Throughout] Blood Pressure 115/69 114/73 119/69 O2 Sat by Pulse 98 98 99 Oximetry O2 Sat by Pulse Oximetry [ Anterior Bilateral Throughout] 12/19/16 12/19/16 12/19/16 02:45 03:00 03:15 Temperature Pulse Rate 118 H 122 H 111 H Pulse Rate [ Anterior Bilateral Throughout] Respiratory 27 H 27 H 27 H Rate Respiratory Rate [Anterior Bilateral Throughout] Blood Pressure 96/65 112/74 108/68 O2 Sat by Pulse 99 99 98 Oximetry O2 Sat by Pulse Oximetry [ Anterior Bilateral Throughout] 12/19/16 12/19/16 12/19/16 03:30 03:46 04:00 Temperature 99.8 F H Pulse Rate 108 H 110 H 113 H Pulse Rate [ Anterior Bilateral Throughout] Respiratory 28 H 29 H Rate Respiratory Rate [Anterior Bilateral Throughout] Blood Pressure 115/69 119/72 119/72 O2 Sat by Pulse 99 99 97 Oximetry O2 Sat by Pulse Oximetry [ Anterior Bilateral Throughout] 12/19/16 12/19/16 12/19/16 04:15 04:30 04:45 Temperature Pulse Rate 110 H 108 H 108 H Pulse Rate [ Anterior Bilateral Throughout] Respiratory 26 H 26 H 27 H Rate Respiratory Rate [Anterior Bilateral Throughout] Blood Pressure 125/77 120/75 94/73 O2 Sat by Pulse 98 98 97 Oximetry O2 Sat by Pulse Oximetry [ Anterior Bilateral Throughout] 12/19/16 12/19/16 12/19/16 05:00 05:15 05:30 Temperature Pulse Rate 106 H 108 H 109 H Pulse Rate [ Anterior Bilateral Throughout] Respiratory 27 H 27 H 29 H Rate Respiratory Rate [Anterior Bilateral Throughout] Blood Pressure 111/69 119/76 119/76 O2 Sat by Pulse 98 97 97 Oximetry O2 Sat by Pulse Oximetry [ Anterior Bilateral Throughout] 12/19/16 12/19/16 12/19/16 05:45 06:00 06:15 Temperature Pulse Rate 110 H 116 H 109 H Pulse Rate [ Anterior Bilateral Throughout] Respiratory 30 H 23 29 H Rate Respiratory Rate [Anterior Bilateral Throughout] Blood Pressure 109/63 125/69 121/75 O2 Sat by Pulse 97 97 97 Oximetry O2 Sat by Pulse Oximetry [ Anterior Bilateral Throughout] 12/19/16 12/19/16 12/19/16 06:30 06:45 07:00 Temperature Pulse Rate 109 H 110 H 111 H Pulse Rate [ Anterior Bilateral Throughout] Respiratory 29 H 27 H 28 H Rate Respiratory Rate [Anterior Bilateral Throughout] Blood Pressure 119/76 106/79 120/77 O2 Sat by Pulse 97 97 97 Oximetry O2 Sat by Pulse Oximetry [ Anterior Bilateral Throughout] 12/19/16 12/19/16 12/19/16 07:15 07:30 07:45 Temperature Pulse Rate 115 H 111 H 108 H Pulse Rate [ Anterior Bilateral Throughout] Respiratory 27 H 28 H 28 H Rate Respiratory Rate [Anterior Bilateral Throughout] Blood Pressure 104/64 125/73 122/71 O2 Sat by Pulse 97 98 98 Oximetry O2 Sat by Pulse Oximetry [ Anterior Bilateral Throughout] 12/19/16 12/19/16 12/19/16 08:00 08:05 08:08 Temperature Pulse Rate 112 H 118 H Pulse Rate [ 113 H Anterior Bilateral Throughout] Respiratory 18 Rate Respiratory 24 Rate [Anterior Bilateral Throughout] Blood Pressure 128/73 128/73 O2 Sat by Pulse 98 98 Oximetry O2 Sat by Pulse Oximetry [ Anterior Bilateral Throughout] 12/19/16 12/19/16 12/19/16 08:15 08:30 08:45 Temperature Pulse Rate 112 H 114 H 115 H Pulse Rate [ Anterior Bilateral Throughout] Respiratory 29 H 31 H 30 H Rate Respiratory Rate [Anterior Bilateral Throughout] Blood Pressure 114/73 122/72 123/66 O2 Sat by Pulse 98 97 97 Oximetry O2 Sat by Pulse Oximetry [ Anterior Bilateral Throughout] 12/19/16 12/19/16 12/19/16 09:00 09:45 10:00 Temperature 99.7 F H Pulse Rate 114 H 112 H 112 H Pulse Rate [ Anterior Bilateral Throughout] Respiratory 28 H 26 H Rate Respiratory Rate [Anterior Bilateral Throughout] Blood Pressure 123/72 121/69 121/69 O2 Sat by Pulse 97 Oximetry O2 Sat by Pulse 98 Oximetry [ Anterior Bilateral Throughout] Constitutional: lethargic, appears uncomfortable Eyes: non-icteric ENT: oropharynx moist Neck: supple, no lymphadenopathy, no JVD Effort: mildly labored Ascultation: Bilateral: clear, rales (basilar and scant) Cardiovascular: regular rate and rhythm Gastrointestinal: normoactive bowel sounds, hypoactive bowel sounds, soft, non- tender, non-distended Integumentary: normal Extremities: no cyanosis, no edema, pink and warm, pulses normal, no ischemia or petechiae Neurologic: non-focal exam (grossly), pupils equal and round, unable to assess Psychiatric: other (sedated) CBC and BMP: 12/20/16 08:30 12/20/16 08:30 ABG, PT/INR, D-dimer: ABG POC ABG pH 7.539 (7.35-7.45) H 12/19/16 05:42 POC ABG pCO2 26.0 (35-45) L 12/19/16 05:42 POC ABG pO2 89 (80-105) 12/19/16 05:42 POC ABG HCO3 22.2 12/19/16 05:42 POC ABG Total CO2 23 12/19/16 05:42 POC ABG O2 Sat 98 12/19/16 05:42 PT/INR, D-dimer PT 18.8 Sec. (12.2-14.9) H 12/18/16 16:55 INR 1.58 (0.87-1.13) H 12/18/16 16:55 D-Dimer 586.01 ng/mlDDU (0-234) H 12/14/16 18:03 Abnormal lab findings: Abnormal Labs 12/07/16 12/07/16 12/07/16 00:35 05:30 05:30 WBC RBC Hgb Hct MCV MCHC RDW 13.0 L Plt Count 93 L Lymph % (Auto) [place] % (Auto) 11.2 H [place] # 1.1 H Baso # Seg Neutrophils % 71.3 H Seg Neutrophils # PT INR D-Dimer POC ABG pH POC ABG pCO2 POC ABG pO2 Sodium Potassium Chloride Carbon Dioxide BUN Creatinine 0.6 L Glucose 168 H POC Glucose Lactic Acid Calcium 7.8 L Phosphorus Magnesium Direct Bilirubin 0.7 H AST ALT Alkaline Phosphatase Total Creatine Kinase 343 H C-Reactive Protein Total Protein Albumin 2.6 L TSH Vancomycin Trough 12/07/16 12/07/16 12/07/16 06:58 16:41 18:30 WBC RBC Hgb Hct MCV MCHC RDW Plt Count Lymph % (Auto) [place] % (Auto) [place] # Baso # Seg Neutrophils % Seg Neutrophils # PT INR D-Dimer POC ABG pH POC ABG pCO2 POC ABG pO2 Sodium Potassium Chloride Carbon Dioxide BUN Creatinine Glucose POC Glucose 175 H Lactic Acid Calcium Phosphorus Magnesium Direct Bilirubin AST ALT Alkaline Phosphatase Total Creatine Kinase 242 H C-Reactive Protein 7.70 H Total Protein Albumin TSH Vancomycin Trough 12/09/16 12/10/16 12/10/16 11:58 06:05 12:24 WBC RBC Hgb Hct MCV MCHC RDW Plt Count Lymph % (Auto) [place] % (Auto) [place] # Baso # Seg Neutrophils % Seg Neutrophils # PT INR D-Dimer POC ABG pH 7.485 H POC ABG pCO2 POC ABG pO2 Sodium Potassium Chloride Carbon Dioxide BUN Creatinine Glucose POC Glucose 141 H 183 H Lactic Acid Calcium Phosphorus Magnesium Direct Bilirubin AST ALT Alkaline Phosphatase Total Creatine Kinase C-Reactive Protein Total Protein Albumin TSH Vancomycin Trough 12/10/16 12/10/16 12/11/16 17:47 23:21 06:10 WBC RBC Hgb Hct MCV MCHC RDW Plt Count Lymph % (Auto) [place] % (Auto) [place] # Baso # Seg Neutrophils % Seg Neutrophils # PT INR D-Dimer POC ABG pH POC ABG pCO2 POC ABG pO2 Sodium Potassium Chloride Carbon Dioxide BUN Creatinine Glucose POC Glucose 176 H 240 H 252 H Lactic Acid Calcium Phosphorus Magnesium Direct Bilirubin AST ALT Alkaline Phosphatase Total Creatine Kinase C-Reactive Protein Total Protein Albumin TSH Vancomycin Trough 12/11/16 12/11/16 12/11/16 08:29 09:14 11:37 WBC RBC Hgb Hct MCV MCHC RDW 13.1 L Plt Count Lymph % (Auto) [place] % (Auto) [place] # Baso # Seg Neutrophils % Seg Neutrophils # PT INR D-Dimer POC ABG pH POC ABG pCO2 POC ABG pO2 Sodium Potassium Chloride Carbon Dioxide BUN Creatinine Glucose POC Glucose 253 H 284 H Lactic Acid Calcium Phosphorus Magnesium Direct Bilirubin AST ALT Alkaline Phosphatase Total Creatine Kinase C-Reactive Protein Total Protein Albumin TSH Vancomycin Trough 12/11/16 12/11/16 12/11/16 16:12 17:54 23:35 WBC RBC Hgb Hct MCV MCHC RDW Plt Count Lymph % (Auto) [place] % (Auto) [place] # Baso # Seg Neutrophils % Seg Neutrophils # PT INR D-Dimer POC ABG pH POC ABG pCO2 POC ABG pO2 Sodium Potassium Chloride Carbon Dioxide BUN 37 H Creatinine Glucose 258 H POC Glucose 227 H 264 H Lactic Acid Calcium 8.3 L Phosphorus Magnesium Direct Bilirubin AST ALT Alkaline Phosphatase Total Creatine Kinase C-Reactive Protein Total Protein Albumin 2.6 L TSH Vancomycin Trough 12/12/16 12/12/16 12/12/16 04:37 06:06 10:12 WBC RBC Hgb Hct MCV MCHC RDW Plt Count Lymph % (Auto) [place] % (Auto) [place] # Baso # Seg Neutrophils % Seg Neutrophils # PT INR D-Dimer POC ABG pH 7.500 H POC ABG pCO2 POC ABG pO2 69 L Sodium Potassium Chloride Carbon Dioxide BUN Creatinine Glucose POC Glucose 288 H Lactic Acid Calcium Phosphorus Magnesium Direct Bilirubin AST ALT Alkaline Phosphatase Total Creatine Kinase C-Reactive Protein Total Protein Albumin TSH Vancomycin Trough 12/12/16 12/12/16 12/12/16 13:08 17:46 23:31 WBC RBC Hgb Hct MCV MCHC RDW Plt Count Lymph % (Auto) [place] % (Auto) [place] # Baso # Seg Neutrophils % Seg Neutrophils # PT INR D-Dimer POC ABG pH POC ABG pCO2 POC ABG pO2 Sodium Potassium Chloride Carbon Dioxide BUN Creatinine Glucose POC Glucose 215 H 234 H 241 H Lactic Acid Calcium Phosphorus Magnesium Direct Bilirubin AST ALT Alkaline Phosphatase Total Creatine Kinase C-Reactive Protein Total Protein Albumin TSH Vancomycin Trough 12/13/16 12/13/16 12/13/16 05:38 11:44 17:32 WBC RBC Hgb Hct MCV MCHC RDW Plt Count Lymph % (Auto) [place] % (Auto) [place] # Baso # Seg Neutrophils % Seg Neutrophils # PT INR D-Dimer POC ABG pH POC ABG pCO2 POC ABG pO2 Sodium Potassium Chloride Carbon Dioxide BUN Creatinine Glucose POC Glucose 215 H 237 H 215 H Lactic Acid Calcium Phosphorus Magnesium Direct Bilirubin AST ALT Alkaline Phosphatase Total Creatine Kinase C-Reactive Protein Total Protein Albumin TSH Vancomycin Trough 12/14/16 12/14/16 12/14/16 00:22 05:40 12:03 WBC RBC Hgb Hct MCV MCHC RDW Plt Count Lymph % (Auto) [place] % (Auto) [place] # Baso # Seg Neutrophils % Seg Neutrophils # PT INR D-Dimer POC ABG pH POC ABG pCO2 POC ABG pO2 Sodium Potassium Chloride Carbon Dioxide BUN Creatinine Glucose POC Glucose 268 H 301 H 312 H Lactic Acid Calcium Phosphorus Magnesium Direct Bilirubin AST ALT Alkaline Phosphatase Total Creatine Kinase C-Reactive Protein Total Protein Albumin TSH Vancomycin Trough 12/14/16 12/14/16 12/14/16 18:03 18:03 18:03 WBC RBC Hgb Hct MCV MCHC RDW 12.9 L Plt Count Lymph % (Auto) [place] % (Auto) 8.0 H [place] # Baso # Seg Neutrophils % 72.4 H Seg Neutrophils # PT INR D-Dimer 586.01 H POC ABG pH POC ABG pCO2 POC ABG pO2 Sodium 150 H Potassium Chloride 109.1 H Carbon Dioxide BUN 50 H Creatinine Glucose 261 H POC Glucose Lactic Acid Calcium Phosphorus Magnesium Direct Bilirubin AST ALT Alkaline Phosphatase Total Creatine Kinase C-Reactive Protein Total Protein Albumin TSH Vancomycin Trough 12/14/16 12/14/16 12/14/16 18:30 21:55 23:59 WBC RBC Hgb Hct MCV MCHC RDW Plt Count Lymph % (Auto) [place] % (Auto) [place] # Baso # Seg Neutrophils % Seg Neutrophils # PT INR D-Dimer POC ABG pH POC ABG pCO2 POC ABG pO2 Sodium Potassium Chloride Carbon Dioxide BUN Creatinine Glucose POC Glucose 321 H 258 H 262 H Lactic Acid Calcium Phosphorus Magnesium Direct Bilirubin AST ALT Alkaline Phosphatase Total Creatine Kinase C-Reactive Protein Total Protein Albumin TSH Vancomycin Trough 12/15/16 12/15/16 12/15/16 05:28 06:04 09:15 WBC RBC Hgb Hct MCV MCHC RDW Plt Count Lymph % (Auto) [place] % (Auto) [place] # Baso # Seg Neutrophils % Seg Neutrophils # PT INR D-Dimer POC ABG pH POC ABG pCO2 POC ABG pO2 Sodium Potassium Chloride Carbon Dioxide BUN Creatinine Glucose POC Glucose 274 H 276 H Lactic Acid Calcium Phosphorus Magnesium Direct Bilirubin AST ALT Alkaline Phosphatase Total Creatine Kinase C-Reactive Protein Total Protein Albumin TSH 0.220 L Vancomycin Trough 12/15/16 12/15/16 12/15/16 11:59 13:40 18:06 WBC RBC Hgb Hct MCV MCHC RDW Plt Count Lymph % (Auto) [place] % (Auto) [place] # Baso # Seg Neutrophils % Seg Neutrophils # PT INR D-Dimer POC ABG pH POC ABG pCO2 33.3 L POC ABG pO2 70 L Sodium Potassium Chloride Carbon Dioxide BUN Creatinine Glucose POC Glucose 273 H Lactic Acid Calcium Phosphorus Magnesium Direct Bilirubin AST ALT Alkaline Phosphatase Total Creatine Kinase C-Reactive Protein Total Protein Albumin TSH 0.204 L Vancomycin Trough 12/15/16 12/15/16 12/16/16 18:14 21:26 02:08 WBC RBC Hgb Hct MCV MCHC RDW Plt Count Lymph % (Auto) [place] % (Auto) [place] # Baso # Seg Neutrophils % Seg Neutrophils # PT INR D-Dimer POC ABG pH 7.341 L POC ABG pCO2 POC ABG pO2 223 H Sodium Potassium Chloride Carbon Dioxide BUN Creatinine Glucose POC Glucose 234 H 371 H Lactic Acid Calcium Phosphorus Magnesium Direct Bilirubin AST ALT Alkaline Phosphatase Total Creatine Kinase C-Reactive Protein Total Protein Albumin TSH Vancomycin Trough 12/16/16 12/16/16 12/16/16 05:12 05:18 09:40 WBC RBC Hgb Hct MCV MCHC RDW Plt Count Lymph % (Auto) [place] % (Auto) [place] # Baso # Seg Neutrophils % Seg Neutrophils # PT INR D-Dimer POC ABG pH POC ABG pCO2 32.5 L POC ABG pO2 Sodium 154 H Potassium Chloride 116.8 H Carbon Dioxide 18 L D BUN 92 H Creatinine 3.0 H D Glucose 364 H POC Glucose 357 H Lactic Acid Calcium 8.2 L Phosphorus Magnesium Direct Bilirubin AST ALT Alkaline Phosphatase Total Creatine Kinase C-Reactive Protein Total Protein Albumin TSH Vancomycin Trough 12/16/16 12/16/16 12/16/16 13:40 18:27 18:34 WBC RBC Hgb Hct MCV MCHC RDW Plt Count Lymph % (Auto) [place] % (Auto) [place] # Baso # Seg Neutrophils % Seg Neutrophils # PT INR D-Dimer POC ABG pH POC ABG pCO2 POC ABG pO2 Sodium Potassium Chloride Carbon Dioxide BUN Creatinine Glucose POC Glucose 391 H 472 H Lactic Acid Calcium Phosphorus Magnesium Direct Bilirubin AST ALT Alkaline Phosphatase Total Creatine Kinase C-Reactive Protein Total Protein Albumin TSH Vancomycin Trough 33.7 H 12/17/16 12/17/16 12/17/16 00:38 01:54 05:53 WBC RBC Hgb Hct MCV MCHC RDW Plt Count Lymph % (Auto) [place] % (Auto) [place] # Baso # Seg Neutrophils % Seg Neutrophils # PT INR D-Dimer POC ABG pH 7.234 L POC ABG pCO2 34.5 L POC ABG pO2 50 L Sodium Potassium Chloride Carbon Dioxide BUN Creatinine Glucose POC Glucose 386 H 400 H Lactic Acid Calcium Phosphorus Magnesium Direct Bilirubin AST ALT Alkaline Phosphatase Total Creatine Kinase C-Reactive Protein Total Protein Albumin TSH Vancomycin Trough 12/17/16 12/17/16 12/17/16 06:45 06:45 07:45 WBC 12.3 H RBC Hgb 11.7 L Hct MCV 97 H D MCHC 31 L RDW Plt Count Lymph % (Auto) [place] % (Auto) 14.4 H [place] # 1.8 H Baso # 0.2 H Seg Neutrophils % Seg Neutrophils # 8.2 H PT INR D-Dimer POC ABG pH POC ABG pCO2 POC ABG pO2 Sodium Potassium 7.6 H* D Chloride 110.8 H Carbon Dioxide 14 L BUN 121 H Creatinine 5.4 H D Glucose 566 H* POC Glucose > 500 H Lactic Acid Calcium 6.2 L D Phosphorus Magnesium Direct Bilirubin AST 323 H ALT Alkaline Phosphatase 27 L Total Creatine Kinase C-Reactive Protein Total Protein Albumin 2.3 L TSH Vancomycin Trough 12/17/16 12/17/16 12/17/16 08:51 09:10 09:11 WBC RBC Hgb Hct MCV MCHC RDW Plt Count Lymph % (Auto) [place] % (Auto) [place] # Baso # Seg Neutrophils % Seg Neutrophils # PT INR D-Dimer POC ABG pH 7.113 L POC ABG pCO2 46.1 H POC ABG pO2 186 H Sodium Potassium Chloride Carbon Dioxide BUN Creatinine Glucose POC Glucose > 500 H Lactic Acid Calcium Phosphorus 9.5 H Magnesium 2.5 H Direct Bilirubin AST ALT Alkaline Phosphatase Total Creatine Kinase C-Reactive Protein Total Protein Albumin TSH Vancomycin Trough 12/17/16 12/17/16 12/17/16 10:18 10:50 11:17 WBC RBC Hgb Hct MCV MCHC RDW Plt Count Lymph % (Auto) [place] % (Auto) [place] # Baso # Seg Neutrophils % Seg Neutrophils # PT INR D-Dimer POC ABG pH POC ABG pCO2 POC ABG pO2 Sodium Potassium 6.1 H* Chloride 110.1 H Carbon Dioxide 14 L BUN 128 H Creatinine 5.5 H Glucose 580 H* POC Glucose > 500 H > 500 H Lactic Acid Calcium Phosphorus Magnesium Direct Bilirubin AST ALT Alkaline Phosphatase Total Creatine Kinase C-Reactive Protein Total Protein Albumin TSH Vancomycin Trough 12/17/16 12/17/16 12/17/16 12:09 12:30 13:36 WBC RBC Hgb Hct MCV MCHC RDW Plt Count Lymph % (Auto) [place] % (Auto) [place] # Baso # Seg Neutrophils % Seg Neutrophils # PT INR D-Dimer POC ABG pH POC ABG pCO2 POC ABG pO2 Sodium Potassium 5.6 H Chloride 110.4 H Carbon Dioxide 14 L BUN 138 H Creatinine 5.3 H Glucose 528 H* POC Glucose 428 H 426 H Lactic Acid Calcium 6.8 L D Phosphorus Magnesium Direct Bilirubin AST ALT Alkaline Phosphatase Total Creatine Kinase C-Reactive Protein Total Protein Albumin TSH Vancomycin Trough 12/17/16 12/17/16 12/17/16 14:11 14:25 14:45 WBC RBC Hgb Hct MCV MCHC RDW Plt Count Lymph % (Auto) [place] % (Auto) [place] # Baso # Seg Neutrophils % Seg Neutrophils # PT INR D-Dimer POC ABG pH 7.297 L POC ABG pCO2 34.2 L POC ABG pO2 114 H Sodium 146 H Potassium 5.3 H Chloride 109.3 H Carbon Dioxide 15 L BUN 128 H Creatinine 5.5 H Glucose 426 H POC Glucose 422 H Lactic Acid Calcium 6.7 L Phosphorus Magnesium Direct Bilirubin AST ALT Alkaline Phosphatase Total Creatine Kinase C-Reactive Protein Total Protein Albumin TSH Vancomycin Trough 12/17/16 12/17/16 12/17/16 15:07 16:03 16:56 WBC RBC Hgb Hct MCV MCHC RDW Plt Count Lymph % (Auto) [place] % (Auto) [place] # Baso # Seg Neutrophils % Seg Neutrophils # PT INR D-Dimer POC ABG pH POC ABG pCO2 POC ABG pO2 Sodium Potassium Chloride Carbon Dioxide BUN Creatinine Glucose POC Glucose 392 H 450 H 352 H Lactic Acid Calcium Phosphorus Magnesium Direct Bilirubin AST ALT Alkaline Phosphatase Total Creatine Kinase C-Reactive Protein Total Protein Albumin TSH Vancomycin Trough 12/17/16 12/17/16 12/17/16 18:00 18:10 18:38 WBC RBC Hgb Hct MCV MCHC RDW Plt Count Lymph % (Auto) [place] % (Auto) [place] # Baso # Seg Neutrophils % Seg Neutrophils # PT INR D-Dimer POC ABG pH POC ABG pCO2 POC ABG pO2 Sodium 147 H Potassium Chloride 109.7 H Carbon Dioxide 15 L BUN 140 H Creatinine 5.2 H Glucose 301 H POC Glucose 318 H 256 H Lactic Acid Calcium 6.5 L Phosphorus Magnesium Direct Bilirubin AST ALT Alkaline Phosphatase Total Creatine Kinase C-Reactive Protein Total Protein Albumin TSH Vancomycin Trough 12/17/16 12/17/16 12/17/16 19:31 20:00 20:44 WBC RBC Hgb Hct MCV MCHC RDW Plt Count Lymph % (Auto) [place] % (Auto) [place] # Baso # Seg Neutrophils % Seg Neutrophils # PT 17.7 H INR 1.46 H D-Dimer POC ABG pH POC ABG pCO2 30.5 L POC ABG pO2 134 H Sodium Potassium Chloride Carbon Dioxide BUN Creatinine Glucose POC Glucose 189 H Lactic Acid Calcium Phosphorus Magnesium Direct Bilirubin AST ALT Alkaline Phosphatase Total Creatine Kinase C-Reactive Protein Total Protein Albumin TSH Vancomycin Trough 12/17/16 12/17/16 12/18/16 21:59 23:18 00:15 WBC RBC Hgb Hct MCV MCHC RDW Plt Count Lymph % (Auto) [place] % (Auto) [place] # Baso # Seg Neutrophils % Seg Neutrophils # PT INR D-Dimer POC ABG pH POC ABG pCO2 POC ABG pO2 Sodium 147 H Potassium 5.2 H Chloride 107.9 H Carbon Dioxide 18 L BUN 143 H Creatinine 5.6 H Glucose 152 H POC Glucose 191 H 132 H Lactic Acid Calcium 6.3 L Phosphorus Magnesium Direct Bilirubin AST ALT Alkaline Phosphatase Total Creatine Kinase C-Reactive Protein Total Protein Albumin TSH Vancomycin Trough 12/18/16 12/18/16 12/18/16 00:18 01:08 02:35 WBC RBC Hgb Hct MCV MCHC RDW Plt Count Lymph % (Auto) [place] % (Auto) [place] # Baso # Seg Neutrophils % Seg Neutrophils # PT INR D-Dimer POC ABG pH POC ABG pCO2 POC ABG pO2 Sodium Potassium Chloride Carbon Dioxide BUN Creatinine Glucose POC Glucose 190 H 157 H 144 H Lactic Acid Calcium Phosphorus Magnesium Direct Bilirubin AST ALT Alkaline Phosphatase Total Creatine Kinase C-Reactive Protein Total Protein Albumin TSH Vancomycin Trough 12/18/16 12/18/16 12/18/16 03:14 04:11 05:07 WBC RBC Hgb Hct MCV MCHC RDW Plt Count Lymph % (Auto) [place] % (Auto) [place] # Baso # Seg Neutrophils % Seg Neutrophils # PT INR D-Dimer POC ABG pH POC ABG pCO2 POC ABG pO2 Sodium Potassium Chloride Carbon Dioxide BUN Creatinine Glucose POC Glucose 117 H 108 H 122 H Lactic Acid Calcium Phosphorus Magnesium Direct Bilirubin AST ALT Alkaline Phosphatase Total Creatine Kinase C-Reactive Protein Total Protein Albumin TSH Vancomycin Trough 12/18/16 12/18/16 12/18/16 05:23 06:07 06:07 WBC RBC 3.18 L Hgb 9.6 L Hct 29.0 L D MCV MCHC RDW Plt Count 130 L Lymph % (Auto) [place] % (Auto) [place] # Baso # Seg Neutrophils % Seg Neutrophils # PT INR D-Dimer POC ABG pH 7.485 H POC ABG pCO2 27.5 L POC ABG pO2 275 H Sodium Potassium Chloride Carbon Dioxide BUN Creatinine Glucose POC Glucose Lactic Acid 3.2 H* Calcium Phosphorus Magnesium Direct Bilirubin AST ALT Alkaline Phosphatase Total Creatine Kinase C-Reactive Protein Total Protein Albumin TSH Vancomycin Trough 12/18/16 12/18/16 12/18/16 06:08 06:22 07:26 WBC RBC Hgb Hct MCV MCHC RDW Plt Count Lymph % (Auto) [place] % (Auto) [place] # Baso # Seg Neutrophils % Seg Neutrophils # PT 18.3 H INR 1.52 H D-Dimer POC ABG pH POC ABG pCO2 POC ABG pO2 Sodium Potassium Chloride Carbon Dioxide BUN Creatinine Glucose POC Glucose 159 H 198 H Lactic Acid Calcium Phosphorus Magnesium Direct Bilirubin AST ALT Alkaline Phosphatase Total Creatine Kinase C-Reactive Protein Total Protein Albumin TSH Vancomycin Trough 12/18/16 12/18/16 12/18/16 08:27 09:00 09:30 WBC RBC Hgb Hct MCV MCHC RDW Plt Count Lymph % (Auto) [place] % (Auto) [place] # Baso # Seg Neutrophils % Seg Neutrophils # PT INR D-Dimer POC ABG pH POC ABG pCO2 POC ABG pO2 Sodium 147 H Potassium 5.5 H Chloride Carbon Dioxide 17 L BUN 145 H Creatinine 6.4 H Glucose 213 H POC Glucose 220 H 216 H Lactic Acid Calcium 6.0 L Phosphorus Magnesium Direct Bilirubin AST ALT Alkaline Phosphatase Total Creatine Kinase C-Reactive Protein Total Protein Albumin TSH Vancomycin Trough 12/18/16 12/18/16 12/18/16 10:29 11:11 12:05 WBC RBC Hgb Hct MCV MCHC RDW Plt Count Lymph % (Auto) [place] % (Auto) [place] # Baso # Seg Neutrophils % Seg Neutrophils # PT INR D-Dimer POC ABG pH POC ABG pCO2 POC ABG pO2 Sodium Potassium Chloride Carbon Dioxide BUN Creatinine Glucose POC Glucose 248 H 214 H 165 H Lactic Acid Calcium Phosphorus Magnesium Direct Bilirubin AST ALT Alkaline Phosphatase Total Creatine Kinase C-Reactive Protein Total Protein Albumin TSH Vancomycin Trough 12/18/16 12/18/16 12/18/16 13:06 13:59 14:45 WBC RBC Hgb Hct MCV MCHC RDW Plt Count Lymph % (Auto) [place] % (Auto) [place] # Baso # Seg Neutrophils % Seg Neutrophils # PT INR D-Dimer POC ABG pH POC ABG pCO2 29.2 L POC ABG pO2 Sodium Potassium Chloride Carbon Dioxide BUN Creatinine Glucose POC Glucose 133 H 116 H Lactic Acid Calcium Phosphorus Magnesium Direct Bilirubin AST ALT Alkaline Phosphatase Total Creatine Kinase C-Reactive Protein Total Protein Albumin TSH Vancomycin Trough 12/18/16 12/18/16 12/18/16 14:52 15:14 15:52 WBC RBC Hgb Hct MCV MCHC RDW Plt Count Lymph % (Auto) [place] % (Auto) [place] # Baso # Seg Neutrophils % Seg Neutrophils # PT INR D-Dimer POC ABG pH POC ABG pCO2 24.2 L POC ABG pO2 Sodium Potassium Chloride Carbon Dioxide BUN Creatinine Glucose POC Glucose 139 H 146 H Lactic Acid Calcium Phosphorus Magnesium Direct Bilirubin AST ALT Alkaline Phosphatase Total Creatine Kinase C-Reactive Protein Total Protein Albumin TSH Vancomycin Trough 12/18/16 12/18/16 12/18/16 16:55 16:55 17:18 WBC RBC Hgb 11.4 L Hct 33.9 L MCV MCHC RDW Plt Count Lymph % (Auto) [place] % (Auto) [place] # Baso # Seg Neutrophils % Seg Neutrophils # PT 18.8 H INR 1.58 H D-Dimer POC ABG pH POC ABG pCO2 POC ABG pO2 Sodium Potassium Chloride Carbon Dioxide BUN Creatinine Glucose POC Glucose 144 H Lactic Acid Calcium Phosphorus Magnesium Direct Bilirubin AST ALT Alkaline Phosphatase Total Creatine Kinase C-Reactive Protein Total Protein Albumin TSH Vancomycin Trough 12/18/16 12/18/16 12/18/16 18:12 18:21 20:17 WBC RBC Hgb Hct MCV MCHC RDW Plt Count Lymph % (Auto) [place] % (Auto) [place] # Baso # Seg Neutrophils % Seg Neutrophils # PT INR D-Dimer POC ABG pH POC ABG pCO2 POC ABG pO2 Sodium Potassium Chloride Carbon Dioxide BUN Creatinine Glucose POC Glucose 147 H 120 H Lactic Acid Calcium Phosphorus 5.4 H D Magnesium Direct Bilirubin AST ALT Alkaline Phosphatase Total Creatine Kinase C-Reactive Protein Total Protein Albumin TSH Vancomycin Trough 12/18/16 12/19/16 12/19/16 22:52 00:56 04:20 WBC 11.8 H RBC Hgb 11.7 L Hct 34.7 L MCV MCHC RDW Plt Count Lymph % (Auto) 11.3 L [place] % (Auto) [place] # Baso # Seg Neutrophils % 83.9 H Seg Neutrophils # 9.9 H PT INR D-Dimer POC ABG pH POC ABG pCO2 POC ABG pO2 Sodium Potassium Chloride Carbon Dioxide BUN Creatinine Glucose POC Glucose 124 H 168 H Lactic Acid Calcium Phosphorus Magnesium Direct Bilirubin AST ALT Alkaline Phosphatase Total Creatine Kinase C-Reactive Protein Total Protein Albumin TSH Vancomycin Trough 12/19/16 12/19/16 04:20 05:42 WBC RBC Hgb Hct MCV MCHC RDW Plt Count Lymph % (Auto) [place] % (Auto) [place] # Baso # Seg Neutrophils % Seg Neutrophils # PT INR D-Dimer POC ABG pH 7.539 H POC ABG pCO2 26.0 L POC ABG pO2 Sodium Potassium Chloride Carbon Dioxide 20 L BUN 108 H Creatinine 4.9 H Glucose 131 H POC Glucose Lactic Acid Calcium 6.3 L Phosphorus Magnesium Direct Bilirubin AST 1058 H ALT 133 H Alkaline Phosphatase Total Creatine Kinase C-Reactive Protein Total Protein 6.1 L Albumin 2.3 L TSH Vancomycin Trough Chest x-ray: image reviewed Allied health notes reviewed: RT
--- NOTE | 2016-12-19 11:40 | Progress Note ---
Assessment and Plan Acute respiratory failure s/p extubation Septic shock Pneumonia Altered mental status Acute renal failure Hyperkalemia Chronic systolic heart failure Ischemic cardiomyopathy Echo this admission demonstrates left ventricular ejection fraction 35%. Hx of CAD [facility] 2014: patent mid LAD stent, patent diagonal branch stent, patent mid obtuse marginal stent. Nonobstructive disease of the RCA. EF 30-35%. Plan: Supportive cardiac management. Subjective Date of service: 12/19/16 Principal diagnosis: Acute hypoxemic respiratory failure, shock Interval history: Patient remains intubated on the vent. On Levophed. Undergoing dialysis. Objective Vital Signs Temp Pulse Pulse Pulse Resp Resp BP 12/19/16 11:36 107 H 101/80 12/19/16 11:15 112 H 101/77 12/19/16 11:00 109 H 107/66 12/19/16 10:45 114 H 100/74 12/19/16 10:30 115 H 102/68 12/19/16 10:15 115 H 107/71 12/19/16 10:00 112 H 121/69 12/19/16 09:45 99.7 F H 112 H 26 H 121/69 12/19/16 09:00 114 H 28 H 123/72 12/19/16 08:45 115 H 30 H 123/66 12/19/16 08:30 114 H 31 H 122/72 12/19/16 08:15 112 H 29 H 114/73 12/19/16 08:08 118 H 128/73 12/19/16 08:05 113 H 24 12/19/16 08:00 112 H 18 128/73 12/19/16 07:45 108 H 28 H 122/71 12/19/16 07:30 111 H 28 H 125/73 12/19/16 07:15 115 H 27 H 104/64 12/19/16 07:00 111 H 28 H 120/77 12/19/16 06:45 110 H 27 H 106/79 12/19/16 06:30 109 H 29 H 119/76 12/19/16 06:15 109 H 29 H 121/75 12/19/16 06:00 116 H 23 125/69 12/19/16 05:45 110 H 30 H 109/63 12/19/16 05:30 109 H 29 H 119/76 12/19/16 05:15 108 H 27 H 119/76 12/19/16 05:00 106 H 27 H 111/69 12/19/16 04:45 108 H 27 H 94/73 12/19/16 04:30 108 H 26 H 120/75 12/19/16 04:15 110 H 26 H 125/77 12/19/16 04:00 99.8 F H 113 H 119/72 12/19/16 03:46 110 H 29 H 119/72 12/19/16 03:30 108 H 28 H 115/69 12/19/16 03:15 111 H 27 H 108/68 12/19/16 03:00 122 H 27 H 112/74 12/19/16 02:45 118 H 27 H 96/65 12/19/16 02:30 107 H 26 H 119/69 12/19/16 02:15 106 H 25 H 114/73 12/19/16 02:00 107 H 26 H 115/69 12/19/16 01:45 106 H 21 107/69 12/19/16 01:30 108 H 21 115/75 12/19/16 01:15 111 H 111 H 24 27 H 111/77 12/19/16 01:00 105 H 22 111/72 12/19/16 00:45 108 H 25 H 105/75 12/19/16 00:30 113 H 25 H 125/74 12/19/16 00:15 111 H 22 120/79 12/19/16 00:00 114 H 25 H 127/76 12/18/16 23:52 99.2 F 12/18/16 23:45 107 H 23 115/80 12/18/16 23:30 111 H 20 114/72 12/18/16 23:15 114 H 23 117/82 12/18/16 23:08 111 H 24 112/79 12/18/16 23:00 111 H 20 114/70 12/18/16 22:45 111 H 21 140/58 12/18/16 22:30 115 H 21 133/81 12/18/16 22:15 111 H 21 136/78 12/18/16 22:00 111 H 24 140/77 12/18/16 21:45 107 H 25 H 126/86 12/18/16 21:30 104 H 23 122/74 12/18/16 21:15 107 H 20 125/71 12/18/16 21:00 104 H 23 125/72 12/18/16 20:45 103 H 24 118/72 12/18/16 20:30 105 H 23 128/77 12/18/16 20:15 105 H 25 H 130/75 12/18/16 20:00 98.6 F 108 H 105 H 104 H 22 26 H 85/58 12/18/16 19:45 101 H 21 124/72 12/18/16 19:30 102 H 19 125/72 12/18/16 19:15 101 H 26 H 156/77 12/18/16 19:05 99.5 F 102 H 21 139/79 12/18/16 19:03 103 H 139/79 12/18/16 19:00 103 H 21 134/77 12/18/16 18:46 106 H 149/84 12/18/16 18:45 108 H 18 134/89 12/18/16 18:31 110 H 137/90 12/18/16 18:30 106 H 24 147/84 12/18/16 18:15 108 H 21 126/84 12/18/16 18:12 108 H 144/88 12/18/16 18:00 108 H 28 H 140/80 12/18/16 17:58 107 H 148/91 12/18/16 17:45 109 H 27 H 147/87 12/18/16 17:43 107 H 131/72 12/18/16 17:30 107 H 22 142/67 12/18/16 17:15 107 H 24 152/81 12/18/16 17:00 104 H 24 131/75 12/18/16 16:45 99.5 F 102 H 23 144/79 12/18/16 16:30 105 H 22 141/79 12/18/16 16:16 98 H 21 138/75 12/18/16 16:00 99.5 F 107 H 112 H 24 95/51 12/18/16 15:45 102 H 23 106/64 12/18/16 15:37 108 H 82/56 12/18/16 15:36 107 H 26 H 12/18/16 15:30 107 H 21 101/50 12/18/16 15:15 106 H 23 91/50 12/18/16 15:00 109 H 30 H 82/56 12/18/16 14:45 109 H 29 H 99/50 12/18/16 14:30 109 H 25 H 94/56 12/18/16 14:20 109 H 104/61 12/18/16 14:15 108 H 24 99/54 12/18/16 14:00 106 H 26 H 86/51 12/18/16 13:45 109 H 16 104/58 12/18/16 13:30 104 H 19 101/62 12/18/16 13:15 108 H 25 H 99/55 12/18/16 13:00 109 H 26 H 86/54 12/18/16 12:45 110 H 28 H 116/60 12/18/16 12:30 107 H 30 H 103/57 12/18/16 12:15 107 H 22 88/54 12/18/16 12:00 99.5 F 111 H 108 H 24 88/54 12/18/16 11:45 108 H 24 100/54 Pulse Ox Pulse Ox 12/19/16 11:36 12/19/16 11:15 12/19/16 11:00 12/19/16 10:45 12/19/16 10:30 12/19/16 10:15 12/19/16 10:00 12/19/16 09:45 98 12/19/16 09:00 97 12/19/16 08:45 97 12/19/16 08:30 97 12/19/16 08:15 98 12/19/16 08:08 98 12/19/16 08:05 12/19/16 08:00 98 12/19/16 07:45 98 12/19/16 07:30 98 12/19/16 07:15 97 12/19/16 07:00 97 12/19/16 06:45 97 12/19/16 06:30 97 12/19/16 06:15 97 12/19/16 06:00 97 12/19/16 05:45 97 12/19/16 05:30 97 12/19/16 05:15 97 12/19/16 05:00 98 12/19/16 04:45 97 12/19/16 04:30 98 12/19/16 04:15 98 12/19/16 04:00 97 12/19/16 03:46 99 12/19/16 03:30 99 12/19/16 03:15 98 12/19/16 03:00 99 12/19/16 02:45 99 12/19/16 02:30 99 12/19/16 02:15 98 12/19/16 02:00 98 12/19/16 01:45 98 12/19/16 01:30 98 12/19/16 01:15 99 12/19/16 01:00 97 12/19/16 00:45 97 12/19/16 00:30 97 12/19/16 00:15 99 12/19/16 00:00 99 12/18/16 23:52 12/18/16 23:45 99 12/18/16 23:30 99 12/18/16 23:15 99 12/18/16 23:08 99 12/18/16 23:00 99 12/18/16 22:45 99 12/18/16 22:30 99 12/18/16 22:15 99 12/18/16 22:00 99 12/18/16 21:45 99 12/18/16 21:30 99 12/18/16 21:15 99 12/18/16 21:00 99 12/18/16 20:45 99 12/18/16 20:30 100 12/18/16 20:15 98 12/18/16 20:00 97 12/18/16 19:45 98 12/18/16 19:30 99 12/18/16 19:15 98 12/18/16 19:05 97 12/18/16 19:03 12/18/16 19:00 97 12/18/16 18:46 12/18/16 18:45 98 12/18/16 18:31 12/18/16 18:30 98 12/18/16 18:15 97 12/18/16 18:12 12/18/16 18:00 96 12/18/16 17:58 12/18/16 17:45 95 12/18/16 17:43 95 12/18/16 17:30 97 12/18/16 17:15 97 12/18/16 17:00 97 12/18/16 16:45 97 12/18/16 16:30 97 12/18/16 16:16 97 12/18/16 16:00 99 12/18/16 15:45 98 12/18/16 15:37 100 12/18/16 15:36 12/18/16 15:30 98 12/18/16 15:15 99 12/18/16 15:00 97 12/18/16 14:45 98 12/18/16 14:30 98 12/18/16 14:20 90 12/18/16 14:15 99 12/18/16 14:00 98 12/18/16 13:45 100 12/18/16 13:30 100 12/18/16 13:15 99 12/18/16 13:00 90 12/18/16 12:45 90 12/18/16 12:30 100 12/18/16 12:15 100 12/18/16 12:00 100 12/18/16 11:45 99 - Physical Examination General: Other (intubated) HEENT: Positive: PERRL Neck: Positive: neck supple Cardiac: Positive: Tachycardia Extremities: Absent: edema - Labs and Meds Cardiac Enzymes 12/19/16 Range/Units 04:20 AST 1058 H (5-40) units/L Coagulation 12/18/16 Range/Units 16:55 PT 18.8 H (12.2-14.9) Sec. INR 1.58 H (0.87-1.13) APTT 34.5 (24.2-36.6) Sec. CBC 12/18/16 12/19/16 Range/Units 16:55 04:20 WBC 11.8 H (4.5-11.0) K/mm3 RBC 3.94 (3.65-5.03) M/mm3 Hgb 11.4 L 11.7 L (11.8-15.2) gm/dl Hct 33.9 L 34.7 L (35.5-45.6) % Plt Count 174 160 (140-440) K/mm3 Lymph # 1.3 (1.2-5.4) K/mm3 [place] # 0.5 (0.0-0.8) K/mm3 Eos # 0.0 (0.0-0.4) K/mm3 Baso # 0.1 (0.0-0.1) K/mm3 Comprehensive Metabolic Panel 12/19/16 Range/Units 04:20 Sodium 143 (137-145) mmol/L Potassium 4.7 (3.6-5.0) mmol/L Chloride 99.6 (98-107) mmol/L Carbon Dioxide 20 L (22-30) mmol/L BUN 108 H (9-20) mg/dL Creatinine 4.9 H (0.8-1.5) mg/dL Glucose 131 H (75-100) mg/dL Calcium 6.3 L (8.4-10.2) mg/dL AST 1058 H (5-40) units/L ALT 133 H (7-56) units/L Alkaline Phosphatase 35 (35-129) units/L Total Protein 6.1 L (6.3-8.2) g/dL Albumin 2.3 L (3.9-5) g/dL - Allied health notes Allied health notes reviewed: RT
[2016-12-19] MEDS ORDERED: SODIUM BICARBONATE 150 MEQ in D5W 1,000 ML IV ONE (13:00)
[2016-12-19] MEDS: HEPARIN IV PRN (13:24)
[2016-12-19] MEDS: PROTONIX IV SCH (15:51)
[2016-12-19] MEDS: ZYVOX 600MG/300ML 600 MG/300 ML BAG IV SCH (15:51)
[2016-12-19] MEDS: Centrum Liq PO SCH (15:52)
[2016-12-19] MEDS: VITAMIN B-1 PO SCH (15:53)
[2016-12-19] MEDS: FOLVITE PO SCH (15:53)
[2016-12-19] MEDS: BABY ASPIRIN PO SCH (15:53)
--- NOTE | 2016-12-19 16:08 | Progress Note ---
Assessment and Plan Assessment and plan: Septic shock - resolved, off Pressor support, cont ivf, abx, supportive care, - liklely due to underlying PNA Acute Respiratory failure - intubated now, Pulmonary following, - periodic breathing treatment, Acute encephalopathy - head CT showed no acute finding - neurology following - will do MRI when he is more stable Systolic CHF, acute on chronic - Cardiology consulted, supportive care for now. - on aspirin, statin, hold beta aries for now BRITTANY - nephrology following - started on HD - likely due to ATN from septic shock - 1L of bicarbonate fluid will be given today as fluid challange Hyperkalemia - s/p bicarbonate, calcium chloride, kayexalate with tube - monitor BMP frequently Diabetes type 2 with DKA - cont on insulin drip - monitor BG q1h PNA, with Strep Pneumoniae - cont abx, repeat culture so far negative Bacteremia - one out of two cx positive for micrococcus - on clindamycin and levaquin Febrile illness - cont abx - off haldol and seroquel for possible drug fever Sinus tachycardia - due to septic shock - cont supportive care Hypernatremia - resolved - monitor BMP h/o hepatitis c with h/o alcohol abuse - hepatitis pannel positive for hep C - monitor LFT Subclavian artery injury - vascular surgeon following - cont on heparin drip The high probability of a clinically significant, sudden or life threatening deterioration of the [respiratory, cardiac] system(s) required my full and direct attention, intervention and personal management. The aggregate critical care time was [48] minutes. This time is in addition to time spent performing reported procedures but includes the following: [x] Data Review and interpretation [x] Patient assessment and monitoring of vital signs [x] Documentation [x] Medication orders and management History Interval history: Pt seen and examined, remained intubated, UOP not improved, s/p HD yesterday back on pressor today am updated family in the waiting room Hospitalist Physical - Physical exam Narrative exam: General appearance: Present: mild distress, obese, other (orally intubated.) - EENT Eyes: Present: conjunctival injection. Absent: irregular pupil, scleral icterus ENT: dentition normal, no thrush, no ulcerations - Neck Neck: Absent: rigidity, enlarged thyroid, cervical LAD - Respiratory Respiratory: bilateral: rales - Cardiovascular Rhythm: other (tachycardic) Heart Sounds: Present: S1 & S2 - Extremities Extremities: no ischemia, pulses intact Peripheral Pulses: within normal limits - Abdominal General gastrointestinal: soft, non-tender, non-distended, normal bowel sounds - Integumentary Integumentary: Present: warm, dry - Neurologic Neurologic: open eyes with verbal commend (not sedated) - Constitutional Vitals: Temp Pulse Resp BP Pulse Ox 97.1 F L 105 H 22 114/73 98 12/19/16 13:20 12/19/16 15:24 12/19/16 15:23 12/19/16 15:24 12/19/16 15:24 General appearance: Present: other (intubated) Results - Labs CBC & Chem 7: 12/19/16 04:20 12/19/16 04:20 Labs: Laboratory Last Values WBC 11.8 K/mm3 (4.5-11.0) H 12/19/16 04:20 RBC 3.94 M/mm3 (3.65-5.03) 12/19/16 04:20 Hgb 11.7 gm/dl (11.8-15.2) L 12/19/16 04:20 Hct 34.7 % (35.5-45.6) L 12/19/16 04:20 MCV 89 fl (84-94) 12/19/16 04:20 MCH 30 pg (28-32) 12/19/16 04:20 MCHC 34 % (32-34) 12/19/16 04:20 RDW 13.6 % (13.2-15.2) 12/19/16 04:20 Plt Count 160 K/mm3 (140-440) 12/19/16 04:20 Lymph % (Auto) 11.3 % (13.4-35.0) L 12/19/16 04:20 [place] % (Auto) 4.0 % (0.0-7.3) 12/19/16 04:20 Eos % (Auto) 0.3 % (0.0-4.3) 12/19/16 04:20 Baso % (Auto) 0.5 % (0.0-1.8) 12/19/16 04:20 Lymph # 1.3 K/mm3 (1.2-5.4) 12/19/16 04:20 [place] # 0.5 K/mm3 (0.0-0.8) 12/19/16 04:20 Eos # 0.0 K/mm3 (0.0-0.4) 12/19/16 04:20 Baso # 0.1 K/mm3 (0.0-0.1) 12/19/16 04:20 Seg Neutrophils % 83.9 % (40.0-70.0) H 12/19/16 04:20 Seg Neutrophils # 9.9 K/mm3 (1.8-7.7) H 12/19/16 04:20 PT 18.8 Sec. (12.2-14.9) H 12/18/16 16:55 INR 1.58 (0.87-1.13) H 12/18/16 16:55 APTT 34.5 Sec. (24.2-36.6) 12/18/16 16:55 D-Dimer 586.01 ng/mlDDU (0-234) H 12/14/16 18:03 POC ABG pH 7.539 (7.35-7.45) H 12/19/16 05:42 POC ABG pCO2 26.0 (35-45) L 12/19/16 05:42 POC ABG pO2 89 (80-105) 12/19/16 05:42 POC ABG HCO3 22.2 12/19/16 05:42 POC ABG Total CO2 23 12/19/16 05:42 POC ABG O2 Sat 98 12/19/16 05:42 POC ABG Base Excess 0 12/19/16 05:42 FiO2 40 % 12/19/16 05:42 Sodium 143 mmol/L (137-145) 12/19/16 04:20 Potassium 4.7 mmol/L (3.6-5.0) 12/19/16 04:20 Chloride 99.6 mmol/L (98-107) 12/19/16 04:20 Carbon Dioxide 20 mmol/L (22-30) L 12/19/16 04:20 Anion Gap 28 mmol/L 12/19/16 04:20 BUN 108 mg/dL (9-20) H 12/19/16 04:20 Creatinine 4.9 mg/dL (0.8-1.5) H 12/19/16 04:20 Estimated GFR 12 ml/min 12/19/16 04:20 BUN/Creatinine Ratio 22.04 % 12/19/16 04:20 Glucose 131 mg/dL (75-100) H 12/19/16 04:20 POC Glucose 168 (70-105) H 12/19/16 00:56 Lactic Acid 1.9 mmol/L (0.7-2.0) 12/18/16 09:00 Calcium 6.3 mg/dL (8.4-10.2) L 12/19/16 04:20 Phosphorus 5.4 mg/dL (2.5-4.5) H D 12/18/16 18:21 Magnesium 2.5 mg/dL (1.7-2.3) H 12/17/16 09:10 Total Bilirubin 0.9 mg/dL (0.1-1.2) 12/19/16 04:20 Direct Bilirubin 0.7 mg/dL (0-0.2) H 12/07/16 05:30 Indirect Bilirubin 0.4 mg/dL 12/07/16 05:30 AST 1058 units/L (5-40) H 12/19/16 04:20 ALT 133 units/L (7-56) H 12/19/16 04:20 Alkaline Phosphatase 35 units/L (35-129) 12/19/16 04:20 Ammonia 42.0 umol/L (25-60) 12/06/16 16:07 Total Creatine Kinase 242 units/L (55-170) H 12/07/16 06:58 CK-MB (CK-2) 2.8 ng/mL (0.0-4.0) 12/07/16 06:58 CK-MB (CK-2) Rel Index 1.1 (0-4) 12/07/16 06:58 Troponin T < 0.010 ng/mL (0.00-0.029) 12/07/16 06:58 C-Reactive Protein 1.20 mg/dL (0.00-1.30) 12/15/16 11:37 Total Protein 6.1 g/dL (6.3-8.2) L 12/19/16 04:20 Albumin 2.3 g/dL (3.9-5) L 12/19/16 04:20 Albumin/Globulin Ratio 0.6 % 12/19/16 04:20 Vitamin B12 815.1 pg/mL (211-911) 12/15/16 09:15 TSH 0.204 mlU/mL (0.270-4.200) L 12/15/16 13:40 Free T4 1.16 ng/dL (0.76-1.46) 12/15/16 13:40 Urine Color Winsome (Yellow) 12/06/16 15:30 Urine Turbidity Clear (Clear) 12/06/16 15:30 Urine pH 6.0 (5.0-7.0) 12/06/16 15:[address] 1.017 (1.003-1.030) 12/06/16 15:30 Urine Protein 100 mg/dl mg/dL (Negative) 12/06/16 15:30 Urine Glucose (UA) 50 mg/dL (Negative) 12/06/16 15:30 Urine Ketones Neg mg/dL (Negative) 12/06/16 15:30 Urine Blood Sm (Negative) 12/06/16 15:30 Urine Nitrite Neg (Negative) 12/06/16 15:30 Urine Bilirubin Neg (Negative) 12/06/16 15:30 Urine Urobilinogen 4.0 mg/dL (<2.0) 12/06/16 15:30 Ur Leukocyte Esterase Neg (Negative) 12/06/16 15:30 Urine WBC (Auto) < 1.0 /HPF (0.0-6.0) 12/06/16 15:30 Urine RBC (Auto) 4.0 /HPF (0.0-6.0) 12/06/16 15:30 Urine Mucus Few /HPF 12/06/16 15:30 Vancomycin Trough 33.7 ug/mL (5.0-20.0) H 12/16/16 18:34 Salicylates < 0.3 mg/dL (2.8-20.0) L 12/06/16 16:07 Urine Opiates Screen Presumptive negative 12/06/16 15:30 Urine Methadone Screen Presumptive negative 12/06/16 15:30 Acetaminophen < 15.0 ug/mL (10.0-30.0) 12/06/16 16:07 Ur Barbiturates Screen Presumptive negative 12/06/16 15:30 Ur Phencyclidine Scrn Presumptive negative 12/06/16 15:30 Ur Amphetamines Screen Presumptive negative 12/06/16 15:30 U Benzodiazepines Scrn Presumptive negative 12/06/16 15:30 Urine Cocaine Screen Presumptive negative 12/06/16 15:30 U Marijuana (THC) Screen Presumptive negative 12/06/16 15:30 Drugs of Abuse Note Disclamer 12/06/16 15:30 Plasma/Serum Alcohol < 0.01 gm% (0-0.07) 12/06/16 16:07 Hepatitis A IgM Ab Non-reactive (NonReactive) 12/18/16 18:21 Hep Bs Antigen Non-reactive (Negative) 12/18/16 18:21 Hep B Core IgM Ab Non-reactive (NonReactive) 12/18/16 18:21 Hepatitis C Antibody Reactive (NonReactive) 12/18/16 18:21
--- NOTE | 2016-12-19 16:41 | Event Note ---
Date: 12/19/16 Pt s/p femoral vc for HD which was used successfully for HD earlier today. He has a TLC in the right sca. The ICU has been attempting to wean vasopressors today. Will attempt to remove in the label fuser tender early next week, if pt condition remains stable. Pt with persistant hypotension and short run of V-tach while on HD. Discussed with Petroleum Analyst.
--- NOTE | 2016-12-19 20:34 | Progress Note ---
Subjective Date of service: 12/19/16 Principal diagnosis: Acute hypoxemic respiratory failure, shock Interval history: No new issues. Patient remain afebrile. PHYSICAL EXAM Vital signs - temp afebrile. chest - mild b/l rhonchi cvs - s1s2 abd - bs+ LABS See lab section ASSESSMENT 1. Pneumonia 2. Acute respiratory failure 3. Encephalopathy 4. CHF RECOMMENDATION 1. cbc/bmp in am 2. continue current antibiotics. Day 12/16 iv abx. Objective - Constitutional Vitals: Vital Signs Temp Pulse Resp BP Pulse Ox 98.3 F 124 H 26 H 99/60 97 12/19/16 16:00 12/19/16 20:00 12/19/16 19:15 12/19/16 20:00 12/19/16 20:00 Temperature -Last 24 Hours Temperature 98.3 F Temperature 97.1 F Temperature 99.7 F Temperature 99.7 F Temperature 99.7 F Temperature 99.8 F Temperature 99.2 F - Labs CBC & Chem 7: 12/19/16 04:20 12/19/16 04:20 Labs: Abnormal lab results 12/18/16 12/18/16 12/19/16 Range/Units 20:17 22:52 00:56 WBC (4.5-11.0) K/mm3 Hgb (11.8-15.2) gm/dl Hct (35.5-45.6) % Lymph % (Auto) (13.4-35.0) % Seg Neutrophils % (40.0-70.0) % Seg Neutrophils # (1.8-7.7) K/mm3 POC ABG pH (7.35-7.45) POC ABG pCO2 (35-45) Carbon Dioxide (22-30) mmol/L BUN (9-20) mg/dL Creatinine (0.8-1.5) mg/dL Glucose (75-100) mg/dL POC Glucose 120 H 124 H 168 H (70-105) Calcium (8.4-10.2) mg/dL AST (5-40) units/L ALT (7-56) units/L Total Protein (6.3-8.2) g/dL Albumin (3.9-5) g/dL 12/19/16 12/19/16 12/19/16 Range/Units 02:09 04:20 04:20 WBC 11.8 H (4.5-11.0) K/mm3 Hgb 11.7 L (11.8-15.2) gm/dl Hct 34.7 L (35.5-45.6) % Lymph % (Auto) 11.3 L (13.4-35.0) % Seg Neutrophils % 83.9 H (40.0-70.0) % Seg Neutrophils # 9.9 H (1.8-7.7) K/mm3 POC ABG pH (7.35-7.45) POC ABG pCO2 (35-45) Carbon Dioxide 20 L (22-30) mmol/L BUN 108 H (9-20) mg/dL Creatinine 4.9 H (0.8-1.5) mg/dL Glucose 131 H (75-100) mg/dL POC Glucose 140 H (70-105) Calcium 6.3 L (8.4-10.2) mg/dL AST 1058 H (5-40) units/L ALT 133 H (7-56) units/L Total Protein 6.1 L (6.3-8.2) g/dL Albumin 2.3 L (3.9-5) g/dL 12/19/16 12/19/16 12/19/16 Range/Units 04:53 05:42 06:30 WBC (4.5-11.0) K/mm3 Hgb (11.8-15.2) gm/dl Hct (35.5-45.6) % Lymph % (Auto) (13.4-35.0) % Seg Neutrophils % (40.0-70.0) % Seg Neutrophils # (1.8-7.7) K/mm3 POC ABG pH 7.539 H (7.35-7.45) POC ABG pCO2 26.0 L (35-45) Carbon Dioxide (22-30) mmol/L BUN (9-20) mg/dL Creatinine (0.8-1.5) mg/dL Glucose (75-100) mg/dL POC Glucose 112 H 119 H (70-105) Calcium (8.4-10.2) mg/dL AST (5-40) units/L ALT (7-56) units/L Total Protein (6.3-8.2) g/dL Albumin (3.9-5) g/dL 12/19/16 Range/Units 12:38 WBC (4.5-11.0) K/mm3 Hgb (11.8-15.2) gm/dl Hct (35.5-45.6) % Lymph % (Auto) (13.4-35.0) % Seg Neutrophils % (40.0-70.0) % Seg Neutrophils # (1.8-7.7) K/mm3 POC ABG pH (7.35-7.45) POC ABG pCO2 (35-45) Carbon Dioxide (22-30) mmol/L BUN (9-20) mg/dL Creatinine (0.8-1.5) mg/dL Glucose (75-100) mg/dL POC Glucose 139 H (70-105) Calcium (8.4-10.2) mg/dL AST (5-40) units/L ALT (7-56) units/L Total Protein (6.3-8.2) g/dL Albumin (3.9-5) g/dL
[2016-12-20] MEDS: REGLAN IV SCH ×4 (00:02→22:40)
[2016-12-20] MEDS: ZOSYN/NS 2.25 GM/50ML 2.25 GM/50 ML BAG IV SCH ×4 (00:02→22:39)
[2016-12-20] MEDS: DIFLUCAN 200 MG/100 ML BAG IV SCH ×2 (00:03→22:37)
[2016-12-20] MEDS: ZYVOX 600MG/300ML 600 MG/300 ML BAG IV SCH ×3 (00:07→22:38)
[2016-12-20] MEDS: HEPARIN SUB-Q SCH ×4 (00:08→22:37)
[2016-12-20] MEDS: ZOCOR PO SCH ×2 (00:36→22:37)
[2016-12-20] MEDS: DUONEB 0.5 MG-3 MG/3 ML SOLN IH SCH ×4 (01:58→20:40)
[2016-12-20 05:41] LABS: ISTAT Base Excess 3; ISTAT HCO3 25.3; ISTAT PCO2 28.2 (35-45); ISTAT PO2 90 (80-105); ISTAT SO2 98; ISTAT TCO2 26
[2016-12-20 08:54] LABS: Hematocrit 29.5 % (35.5-45.6); Hemoglobin 10.1 gm/dl (11.8-15.2); Mean Corpuscular HGB Conc 34 % (32-34); Mean Corpuscular Hemoglobin 30 pg (28-32); Mean Corpuscular Volume 88 fl (84-94); Platelet Count 114 K/mm3 (140-440); Red Blood Count 3.36 M/mm3 (3.65-5.03); Red Cell Distribution Width 13.2 % (13.2-15.2); White Blood Count 7.8 K/mm3 (4.5-11.0)
[2016-12-20 09:20] LABS: BUN/Creatinine Ratio 15.6; Calcium 6.2 mg/dL (8.4-10.2); Chloride 95.1 mmol/L (98-107); Potassium 3.9 mmol/L (3.6-5.0)
[2016-12-20] MEDS: VITAMIN B-1 PO SCH (09:56)
[2016-12-20] MEDS: PROTONIX IV SCH (09:56)
[2016-12-20] MEDS: BABY ASPIRIN PO SCH (09:56)
[2016-12-20] MEDS: FOLVITE PO SCH (09:57)
[2016-12-20] MEDS: Centrum Liq PO SCH (09:57)
--- NOTE | 2016-12-20 10:19 | Progress Note ---
Assessment and Plan 1. Pneumonia/respiratory failure currently intubated 2. Coronary artery disease status post PCI and stent 3. Ischemic cardiomyopathy LV ejection fraction 55% 4. Sepsis/septic shock 5. Acute renal failure Plan Continue ago condition critical continue supportive cardiac management follow- up chest x-rays monitor input and output closely weaned off pressor agents as tolerated. Subjective Date of service: 12/20/16 Principal diagnosis: Acute hypoxemic respiratory failure, shock Interval history: No change in cardiac status Objective Vital Signs Temp Pulse Pulse Pulse Resp Resp BP 12/20/16 10:00 111 H 12/20/16 09:45 111 H 26 H 97/56 12/20/16 09:30 114 H 26 H 98/54 12/20/16 09:15 110 H 23 97/49 12/20/16 09:00 108 H 26 H 102/56 12/20/16 08:45 108 H 26 H 98/57 12/20/16 08:30 111 H 28 H 106/61 12/20/16 08:15 109 H 26 H 104/59 12/20/16 08:00 108 H 26 H 112/67 12/20/16 07:52 98.6 F 12/20/16 07:45 109 H 29 H 112/63 12/20/16 07:30 110 H 25 H 117/61 12/20/16 07:15 111 H 27 H 116/60 12/20/16 07:00 113 H 25 H 107/61 12/20/16 06:46 121/73 12/20/16 06:30 111 H 25 H 107/59 12/20/16 06:15 113 H 28 H 118/63 12/20/16 06:00 113 H 27 H 122/62 12/20/16 05:45 110 H 19 124/61 12/20/16 05:30 110 H 28 H 115/60 12/20/16 05:15 111 H 27 H 113/64 12/20/16 05:00 111 H 27 H 109/63 12/20/16 04:58 111 H 109/64 12/20/16 04:45 113 H 19 105/57 12/20/16 04:30 111 H 27 H 111/61 12/20/16 04:15 112 H 27 H 121/63 12/20/16 04:00 98.2 F 109 H 27 H 132/65 12/20/16 03:45 109 H 26 H 121/67 12/20/16 03:30 104 H 24 132/67 12/20/16 03:15 110 H 25 H 85/47 12/20/16 03:00 116 H 26 H 79/46 12/20/16 02:46 118 H 26 H 89/46 12/20/16 02:30 120 H 27 H 96/58 12/20/16 02:16 122 H 29 H 96/58 12/20/16 02:00 127 H 31 H 97/52 12/20/16 01:45 127 H 33 H 102/59 12/20/16 01:30 129 H 31 H 104/60 12/20/16 01:15 125 H 32 H 108/64 12/20/16 01:00 123 H 32 H 94/60 12/20/16 00:45 124 H 35 H 98/59 12/20/16 00:30 122 H 28 H 86/50 12/20/16 00:15 123 H 31 H 94/59 12/20/16 00:00 98.5 F 113 H 22 95/59 12/19/16 23:45 119 H 32 H 93/58 12/19/16 23:39 119 H 85/62 12/19/16 23:30 120 H 30 H 95/59 12/19/16 23:15 118 H 28 H 96/58 12/19/16 23:00 116 H 31 H 83/54 12/19/16 22:45 117 H 29 H 91/59 12/19/16 22:30 114 H 29 H 86/53 12/19/16 22:15 115 H 32 H 95/60 12/19/16 22:00 112 H 26 H 83/55 12/19/16 21:45 117 H 33 H 99/51 12/19/16 21:30 120 H 31 H 89/53 12/19/16 21:15 116 H 29 H 84/51 12/19/16 21:00 113 H 27 H 91/44 12/19/16 20:45 119 H 26 H 100/47 12/19/16 20:30 115 H 30 H 90/58 12/19/16 20:15 116 H 30 H 99/60 12/19/16 20:00 99.4 F 121 H 25 H 86/58 12/19/16 19:45 130 H 29 H 105/72 12/19/16 19:30 118 H 29 H 88/61 12/19/16 19:18 114 H 27 H 101/52 12/19/16 19:15 115 H 26 H 101/52 12/19/16 19:00 115 H 30 H 92/58 12/19/16 18:45 116 H 31 H 95/55 12/19/16 18:30 119 H 31 H 99/53 12/19/16 18:15 117 H 28 H 100/58 12/19/16 18:00 114 H 25 H 101/63 12/19/16 17:45 115 H 25 H 100/55 12/19/16 17:30 119 H 22 90/62 12/19/16 17:15 113 H 29 H 97/61 12/19/16 17:00 107 H 22 99/59 12/19/16 16:45 110 H 26 H 99/64 12/19/16 16:30 112 H 27 H 99/59 12/19/16 16:15 114 H 23 123/73 12/19/16 16:00 98.3 F 108 H 22 109/71 12/19/16 15:45 106 H 24 124/63 12/19/16 15:30 110 H 21 125/75 12/19/16 15:24 105 H 114/73 12/19/16 15:23 106 H 22 12/19/16 15:15 110 H 24 125/66 12/19/16 15:00 108 H 23 121/69 12/19/16 14:45 109 H 24 120/71 12/19/16 14:30 110 H 22 113/73 12/19/16 14:15 108 H 25 H 126/76 12/19/16 14:00 106 H 105 H 23 129/71 12/19/16 13:45 107 H 24 116/80 12/19/16 13:30 106 H 23 125/73 12/19/16 13:20 97.1 F L 112 H 27 H 129/70 12/19/16 13:15 107 H 21 130/72 12/19/16 13:00 107 H 22 111/80 12/19/16 12:45 104 H 21 117/79 12/19/16 12:40 105 H 126/77 12/19/16 12:30 105 H 24 126/77 12/19/16 12:15 108 H 25 H 124/82 12/19/16 12:00 99.7 F H 111 H 107 H 25 H 126/79 12/19/16 11:45 105 H 26 H 127/76 12/19/16 11:36 107 H 101/80 12/19/16 11:30 103 H 24 122/76 12/19/16 11:15 110 H 27 H 93/75 12/19/16 11:00 106 H 25 H 113/73 12/19/16 10:45 111 H 26 H 110/72 12/19/16 10:30 112 H 26 H 102/68 Pulse Ox Pulse Ox 12/20/16 10:00 12/20/16 09:45 100 12/20/16 09:30 97 12/20/16 09:15 97 12/20/16 09:00 96 12/20/16 08:45 98 12/20/16 08:30 97 12/20/16 08:15 97 12/20/16 08:00 96 12/20/16 07:52 12/20/16 07:45 96 12/20/16 07:30 97 12/20/16 07:15 97 12/20/16 07:00 98 12/20/16 06:46 12/20/16 06:30 12/20/16 06:15 12/20/16 06:00 98 12/20/16 05:45 98 12/20/16 05:30 98 12/20/16 05:15 99 12/20/16 05:00 98 12/20/16 04:58 99 12/20/16 04:45 98 12/20/16 04:30 98 12/20/16 04:15 99 12/20/16 04:00 98 12/20/16 03:45 99 12/20/16 03:30 99 12/20/16 03:15 97 12/20/16 03:00 98 12/20/16 02:46 86 12/20/16 02:30 94 12/20/16 02:16 98 12/20/16 02:00 97 12/20/16 01:45 97 12/20/16 01:30 95 12/20/16 01:15 94 12/20/16 01:00 95 12/20/16 00:45 94 12/20/16 00:30 93 12/20/16 00:15 95 12/20/16 00:00 96 12/19/16 23:45 95 12/19/16 23:39 97 12/19/16 23:30 95 12/19/16 23:15 93 12/19/16 23:00 99 12/19/16 22:45 98 12/19/16 22:30 99 12/19/16 22:15 98 12/19/16 22:00 98 12/19/16 21:45 97 12/19/16 21:30 98 12/19/16 21:15 97 12/19/16 21:00 97 12/19/16 20:45 98 12/19/16 20:30 12/19/16 20:15 97 12/19/16 20:00 100 12/19/16 19:45 100 12/19/16 19:30 12/19/16 19:18 86 12/19/16 19:15 12/19/16 19:00 12/19/16 18:45 92 12/19/16 18:30 98 12/19/16 18:15 100 12/19/16 18:00 100 12/19/16 17:45 100 12/19/16 17:30 100 12/19/16 17:15 100 12/19/16 17:00 100 12/19/16 16:45 100 12/19/16 16:30 100 12/19/16 16:15 100 12/19/16 16:00 100 12/19/16 15:45 100 12/19/16 15:30 99 12/19/16 15:24 98 12/19/16 15:23 12/19/16 15:15 98 12/19/16 15:00 98 12/19/16 14:45 98 12/19/16 14:30 98 12/19/16 14:15 98 12/19/16 14:00 98 12/19/16 13:45 98 12/19/16 13:30 98 12/19/16 13:20 97 12/19/16 13:15 97 12/19/16 13:00 98 12/19/16 12:45 97 12/19/16 12:40 98 12/19/16 12:30 97 12/19/16 12:15 97 12/19/16 12:00 97 12/19/16 11:45 98 12/19/16 11:36 12/19/16 11:30 98 12/19/16 11:15 98 12/19/16 11:00 98 12/19/16 10:45 98 12/19/16 10:30 98 - Physical Examination General: Other (Obese intubated on mechanical ventilator) HEENT: Positive: PERRL Neck: Positive: neck supple. Negative: JVD/HJR Cardiac: Positive: Regular Rate, S1/S2, PMI, Laterally Displaced Lungs: Positive: Rhonchi, Ventilated Respirations Abdomen: Positive: Soft, Active Bowel Sounds Extremities: Absent: edema - Labs and Meds CBC 12/20/16 Range/Units 08:30 WBC 7.8 (4.5-11.0) K/mm3 RBC 3.36 L (3.65-5.03) M/mm3 Hgb 10.1 L (11.8-15.2) gm/dl Hct 29.5 L (35.5-45.6) % Plt Count 114 L (140-440) K/mm3 Comprehensive Metabolic Panel 12/20/16 Range/Units 08:30 Sodium 139 (137-145) mmol/L Potassium 3.9 (3.6-5.0) mmol/L Chloride 95.1 L (98-107) mmol/L Carbon Dioxide 23 (22-30) mmol/L BUN 78 H (9-20) mg/dL Creatinine 5.0 H (0.8-1.5) mg/dL Glucose 181 H (75-100) mg/dL Calcium 6.2 L (8.4-10.2) mg/dL - Telemetry EKG Rhythm: Sinus Tachycardia - Allied health notes Allied health notes reviewed: RT
--- NOTE | 2016-12-20 13:23 | Progress Note ---
Assessment and Plan - Patient Problems (1) Acute kidney failure with tubular necrosis Current Visit: Yes Status: Acute Plan to address problem: Kidney indices better. Electrolytes within normal limits. Volume status has improved. With the persisting hypotension, we'll hold off on dialysis today and reevaluate patient in the morning. (2) Acute hypoxemic respiratory failure Current Visit: Yes Status: Acute Plan to address problem: Continue ventilator management by pulmonary. (3) Septic shock Current Visit: Yes Status: Acute Plan to address problem: Patient still on Levophed. Weaning ongoing. Continue antibiotics. (4) Systolic CHF, acute on chronic Current Visit: No Status: Acute Plan to address problem: EF 35%. Volume status improved. Reevaluate need for dialysis for fluid removal on a daily basis. 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 He is intubated on the ventilator. 2 sons at the bedside. Unable to obtain review of systems due to patient being intubated on ventilator Objective - Exam Narrative Exam: [Middle-aged male] intubated on the ventilator HEENT [normocephalic atraumatic, pupils equal reactive to light, pink, clear oropharynx] Neck [supple, no thyromegaly no jugular venous distention] CVS [S1-S2 regular rate rhythm without murmur, rub or gallop] Chest [clear to auscultation but diminished in the lower zones] Abdomen [soft nondistended nontender no organomegaly no bruit bowel sounds present] Extremities [trace edema no cyanosis or clubbing] Genitourinary [deferred] Neuro [awake, opens eyes to speech] - Vital Signs Vital signs: Vital Signs - 12hr 12/20/16 12/20/16 12/20/16 01:30 01:45 02:00 Temperature Pulse Rate 129 H 127 H 127 H Pulse Rate [ Anterior Bilateral Throughout] Pulse Rate [ From Monitor] Respiratory 31 H 33 H 31 H Rate Respiratory Rate [Anterior Bilateral Throughout] Blood Pressure 104/60 102/59 97/52 O2 Sat by Pulse 95 97 97 Oximetry 12/20/16 12/20/16 12/20/16 02:16 02:30 02:46 Temperature Pulse Rate 122 H 120 H 118 H Pulse Rate [ Anterior Bilateral Throughout] Pulse Rate [ From Monitor] Respiratory 29 H 27 H 26 H Rate Respiratory Rate [Anterior Bilateral Throughout] Blood Pressure 96/58 96/58 89/46 O2 Sat by Pulse 98 94 86 Oximetry 12/20/16 12/20/16 12/20/16 03:00 03:15 03:30 Temperature Pulse Rate 116 H 110 H 104 H Pulse Rate [ Anterior Bilateral Throughout] Pulse Rate [ From Monitor] Respiratory 26 H 25 H 24 Rate Respiratory Rate [Anterior Bilateral Throughout] Blood Pressure 79/46 85/47 132/67 O2 Sat by Pulse 98 97 99 Oximetry 12/20/16 12/20/16 12/20/16 03:45 04:00 04:15 Temperature 98.2 F Pulse Rate 109 H 109 H 112 H Pulse Rate [ Anterior Bilateral Throughout] Pulse Rate [ From Monitor] Respiratory 26 H 27 H 27 H Rate Respiratory Rate [Anterior Bilateral Throughout] Blood Pressure 121/67 132/65 121/63 O2 Sat by Pulse 99 98 99 Oximetry 12/20/16 12/20/16 12/20/16 04:30 04:45 04:58 Temperature Pulse Rate 111 H 113 H 111 H Pulse Rate [ Anterior Bilateral Throughout] Pulse Rate [ From Monitor] Respiratory 27 H 19 Rate Respiratory Rate [Anterior Bilateral Throughout] Blood Pressure 111/61 105/57 109/64 O2 Sat by Pulse 98 98 99 Oximetry 12/20/16 12/20/16 12/20/16 05:00 05:15 05:30 Temperature Pulse Rate 111 H 111 H 110 H Pulse Rate [ Anterior Bilateral Throughout] Pulse Rate [ From Monitor] Respiratory 27 H 27 H 28 H Rate Respiratory Rate [Anterior Bilateral Throughout] Blood Pressure 109/63 113/64 115/60 O2 Sat by Pulse 98 99 98 Oximetry 12/20/16 12/20/16 12/20/16 05:45 06:00 06:15 Temperature Pulse Rate 110 H 113 H 113 H Pulse Rate [ Anterior Bilateral Throughout] Pulse Rate [ From Monitor] Respiratory 19 27 H 28 H Rate Respiratory Rate [Anterior Bilateral Throughout] Blood Pressure 124/61 122/62 118/63 O2 Sat by Pulse 98 98 Oximetry 12/20/16 12/20/16 12/20/16 06:30 06:46 07:00 Temperature Pulse Rate 111 H 113 H Pulse Rate [ Anterior Bilateral Throughout] Pulse Rate [ From Monitor] Respiratory 25 H 25 H Rate Respiratory Rate [Anterior Bilateral Throughout] Blood Pressure 107/59 121/73 107/61 O2 Sat by Pulse 98 Oximetry 12/20/16 12/20/16 12/20/16 07:15 07:30 07:45 Temperature Pulse Rate 111 H 110 H 109 H Pulse Rate [ Anterior Bilateral Throughout] Pulse Rate [ From Monitor] Respiratory 27 H 25 H 29 H Rate Respiratory Rate [Anterior Bilateral Throughout] Blood Pressure 116/60 117/61 112/63 O2 Sat by Pulse 97 97 96 Oximetry 12/20/16 12/20/16 12/20/16 07:52 08:00 08:15 Temperature 98.6 F Pulse Rate 108 H 109 H Pulse Rate [ Anterior Bilateral Throughout] Pulse Rate [ 111 H From Monitor] Respiratory 26 H 26 H Rate Respiratory Rate [Anterior Bilateral Throughout] Blood Pressure 112/67 104/59 O2 Sat by Pulse 96 97 Oximetry 12/20/16 12/20/16 12/20/16 08:30 08:45 09:00 Temperature Pulse Rate 111 H 108 H 108 H Pulse Rate [ Anterior Bilateral Throughout] Pulse Rate [ From Monitor] Respiratory 28 H 26 H 26 H Rate Respiratory Rate [Anterior Bilateral Throughout] Blood Pressure 106/61 98/57 102/56 O2 Sat by Pulse 97 98 96 Oximetry 12/20/16 12/20/16 12/20/16 09:15 09:30 09:45 Temperature Pulse Rate 110 H 114 H 111 H Pulse Rate [ Anterior Bilateral Throughout] Pulse Rate [ From Monitor] Respiratory 23 26 H 26 H Rate Respiratory Rate [Anterior Bilateral Throughout] Blood Pressure 97/49 98/54 97/56 O2 Sat by Pulse 97 97 100 Oximetry 12/20/16 12/20/16 12/20/16 10:00 10:16 10:30 Temperature Pulse Rate 109 H 118 H 113 H Pulse Rate [ Anterior Bilateral Throughout] Pulse Rate [ From Monitor] Respiratory 27 H 26 H 27 H Rate Respiratory Rate [Anterior Bilateral Throughout] Blood Pressure 93/47 83/43 88/48 O2 Sat by Pulse 100 100 99 Oximetry 12/20/16 12/20/16 12/20/16 10:45 10:55 11:00 Temperature Pulse Rate 106 H 108 H 108 H Pulse Rate [ Anterior Bilateral Throughout] Pulse Rate [ From Monitor] Respiratory 29 H 23 Rate Respiratory Rate [Anterior Bilateral Throughout] Blood Pressure 92/51 102/50 95/48 O2 Sat by Pulse 100 99 Oximetry 12/20/16 12/20/16 12/20/16 11:15 11:30 11:45 Temperature Pulse Rate 108 H 107 H 109 H Pulse Rate [ Anterior Bilateral Throughout] Pulse Rate [ From Monitor] Respiratory 24 29 H 29 H Rate Respiratory Rate [Anterior Bilateral Throughout] Blood Pressure 91/55 92/51 96/55 O2 Sat by Pulse 100 Oximetry 12/20/16 12/20/16 12/20/16 12:00 12:05 12:15 Temperature 98.4 F Pulse Rate 111 H 108 H Pulse Rate [ 110 H Anterior Bilateral Throughout] Pulse Rate [ From Monitor] Respiratory 27 H 24 Rate Respiratory 26 H Rate [Anterior Bilateral Throughout] Blood Pressure 95/56 95/55 O2 Sat by Pulse Oximetry 12/20/16 12/20/16 12:30 12:37 Temperature Pulse Rate 108 H Pulse Rate [ 106 H Anterior Bilateral Throughout] Pulse Rate [ From Monitor] Respiratory 22 Rate Respiratory 24 Rate [Anterior Bilateral Throughout] Blood Pressure 99/54 O2 Sat by Pulse 94 Oximetry - Lab 12/20/16 08:30 12/20/16 08:30 Most recent lab results Calcium 6.2 mg/dL (8.4-10.2) L 12/20/16 08:30 Phosphorus 5.4 mg/dL (2.5-4.5) H D 12/18/16 18:21 Magnesium 2.5 mg/dL (1.7-2.3) H 12/17/16 09:10
--- NOTE | 2016-12-20 13:32 | Progress Note ---
Assessment and Plan Assessment and plan: Septic shock - cont ivf, abx, supportive care, - liklely due to underlying PNA - wean off pressor as tolerated Acute Respiratory failure - intubated now, Pulmonary following, - periodic breathing treatment, Acute metabolic encephalopathy - head CT showed no acute finding - neurology following - will do MRI when he is more stable Systolic CHF, acute on chronic - Cardiology consulted, supportive care for now. - on aspirin, statin, hold beta aries for now BRITTANY - nephrology following - started on HD, s/p HD x2 - likely due to ATN from septic shock - increase fluid with tube feeding Hyperkalemia - s/p bicarbonate, calcium chloride, kayexalate with tube - monitor BMP frequently Diabetes type 2 with DKA - cont on insulin drip - monitor BG q1h PNA, with Strep Pneumoniae - cont abx, repeat culture so far negative Bacteremia - one out of two cx positive for micrococcus - on clindamycin and levaquin Febrile illness, resolved - cont abx - off haldol and seroquel for possible drug fever Sinus tachycardia - due to septic shock - cont supportive care Hypernatremia - resolved - monitor BMP h/o hepatitis c with h/o alcohol abuse - hepatitis pannel positive for hep C - monitor LFT Subclavian artery injury - vascular surgeon following - cont on heparin drip - 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 The aggregate critical care time was [40] minutes. This time is in addition to time spent performing reported procedures but includes the following: [x] Data Review and interpretation [x] Patient assessment and monitoring of vital signs [x] Documentation [x] Medication orders and management History Interval history: Pt seen and examined, remained intubated, UOP not improved, s/p HD X2 Still on pressor updated family at the bedside Hospitalist Physical - Physical exam Narrative exam: General appearance: Present: mild distress, obese, other (orally intubated.) - EENT Eyes: Present: conjunctival injection. Absent: irregular pupil, scleral icterus ENT: dentition normal, no thrush, no ulcerations, NG tube on place - Neck Neck: Absent: rigidity, enlarged thyroid, cervical LAD - Respiratory Respiratory: bilateral: rales - Cardiovascular Rhythm: other (tachycardic) Heart Sounds: Present: S1 & S2 - Extremities Extremities: no ischemia, pulses intact Peripheral Pulses: within normal limits - Abdominal General gastrointestinal: soft, non-tender, non-distended, normal bowel sounds - Integumentary Integumentary: Present: warm, dry - Neurologic Neurologic: open eyes with verbal commend (not sedated) - Constitutional Vitals: Temp Pulse Resp BP Pulse Ox 98.4 F 106 H 24 99/54 94 12/20/16 12:00 12/20/16 12:37 12/20/16 12:37 12/20/16 12:30 12/20/16 12:30 General appearance: Present: other (intubated) Results - Labs CBC & Chem 7: 12/20/16 08:30 12/20/16 08:30 Labs: Laboratory Last Values WBC 7.8 K/mm3 (4.5-11.0) 12/20/16 08:30 RBC 3.36 M/mm3 (3.65-5.03) L 12/20/16 08:30 Hgb 10.1 gm/dl (11.8-15.2) L 12/20/16 08:30 Hct 29.5 % (35.5-45.6) L 12/20/16 08:30 MCV 88 fl (84-94) 12/20/16 08:30 MCH 30 pg (28-32) 12/20/16 08:30 MCHC 34 % (32-34) 12/20/16 08:30 RDW 13.2 % (13.2-15.2) 12/20/16 08:30 Plt Count 114 K/mm3 (140-440) L 12/20/16 08:30 Lymph % (Auto) 11.3 % (13.4-35.0) L 12/19/16 04:20 [place] % (Auto) 4.0 % (0.0-7.3) 12/19/16 04:20 Eos % (Auto) 0.3 % (0.0-4.3) 12/19/16 04:20 Baso % (Auto) 0.5 % (0.0-1.8) 12/19/16 04:20 Lymph # 1.3 K/mm3 (1.2-5.4) 12/19/16 04:20 [place] # 0.5 K/mm3 (0.0-0.8) 12/19/16 04:20 Eos # 0.0 K/mm3 (0.0-0.4) 12/19/16 04:20 Baso # 0.1 K/mm3 (0.0-0.1) 12/19/16 04:20 Seg Neutrophils % 83.9 % (40.0-70.0) H 12/19/16 04:20 Seg Neutrophils # 9.9 K/mm3 (1.8-7.7) H 12/19/16 04:20 PT 18.8 Sec. (12.2-14.9) H 12/18/16 16:55 INR 1.58 (0.87-1.13) H 12/18/16 16:55 APTT 34.5 Sec. (24.2-36.6) 12/18/16 16:55 D-Dimer 586.01 ng/mlDDU (0-234) H 12/14/16 18:03 POC ABG pH 7.560 (7.35-7.45) H 12/20/16 05:11 POC ABG pCO2 28.2 (35-45) L 12/20/16 05:11 POC ABG pO2 90 (80-105) 12/20/16 05:11 POC ABG HCO3 25.3 12/20/16 05:11 POC ABG Total CO2 26 12/20/16 05:11 POC ABG O2 Sat 98 12/20/16 05:11 POC ABG Base Excess 3 12/20/16 05:11 FiO2 40 % 12/20/16 05:11 Sodium 139 mmol/L (137-145) 12/20/16 08:30 Potassium 3.9 mmol/L (3.6-5.0) 12/20/16 08:30 Chloride 95.1 mmol/L (98-107) L 12/20/16 08:30 Carbon Dioxide 23 mmol/L (22-30) 12/20/16 08:30 Anion Gap 25 mmol/L 12/20/16 08:30 BUN 78 mg/dL (9-20) H 12/20/16 08:30 Creatinine 5.0 mg/dL (0.8-1.5) H 12/20/16 08:30 Estimated GFR 12 ml/min 12/20/16 08:30 BUN/Creatinine Ratio 15.60 % 12/20/16 08:30 Glucose 181 mg/dL (75-100) H 12/20/16 08:30 POC Glucose 124 (70-105) H 12/20/16 11:55 Lactic Acid 1.9 mmol/L (0.7-2.0) 12/18/16 09:00 Calcium 6.2 mg/dL (8.4-10.2) L 12/20/16 08:30 Phosphorus 5.4 mg/dL (2.5-4.5) H D 12/18/16 18:21 Magnesium 2.5 mg/dL (1.7-2.3) H 12/17/16 09:10 Total Bilirubin 0.9 mg/dL (0.1-1.2) 12/19/16 04:20 Direct Bilirubin 0.7 mg/dL (0-0.2) H 12/07/16 05:30 Indirect Bilirubin 0.4 mg/dL 12/07/16 05:30 AST 1058 units/L (5-40) H 12/19/16 04:20 ALT 133 units/L (7-56) H 12/19/16 04:20 Alkaline Phosphatase 35 units/L (35-129) 12/19/16 04:20 Ammonia 42.0 umol/L (25-60) 12/06/16 16:07 Total Creatine Kinase 242 units/L (55-170) H 12/07/16 06:58 CK-MB (CK-2) 2.8 ng/mL (0.0-4.0) 12/07/16 06:58 CK-MB (CK-2) Rel Index 1.1 (0-4) 12/07/16 06:58 Troponin T < 0.010 ng/mL (0.00-0.029) 12/07/16 06:58 C-Reactive Protein 1.20 mg/dL (0.00-1.30) 12/15/16 11:37 Total Protein 6.1 g/dL (6.3-8.2) L 12/19/16 04:20 Albumin 2.3 g/dL (3.9-5) L 12/19/16 04:20 Albumin/Globulin Ratio 0.6 % 12/19/16 04:20 Vitamin B12 815.1 pg/mL (211-911) 12/15/16 09:15 TSH 0.204 mlU/mL (0.270-4.200) L 12/15/16 13:40 Free T4 1.16 ng/dL (0.76-1.46) 12/15/16 13:40 Urine Color Winsome (Yellow) 12/06/16 15:30 Urine Turbidity Clear (Clear) 12/06/16 15:30 Urine pH 6.0 (5.0-7.0) 12/06/16 15:30 Ur Specific [place] 1.017 (1.003-1.030) 12/06/16 15:30 Urine Protein 100 mg/dl mg/dL (Negative) 12/06/16 15:30 Urine Glucose (UA) 50 mg/dL (Negative) 12/06/16 15:30 Urine Ketones Neg mg/dL (Negative) 12/06/16 15:30 Urine Blood Sm (Negative) 12/06/16 15:30 Urine Nitrite Neg (Negative) 12/06/16 15:30 Urine Bilirubin Neg (Negative) 12/06/16 15:30 Urine Urobilinogen 4.0 mg/dL (<2.0) 12/06/16 15:30 Ur Leukocyte Esterase Neg (Negative) 12/06/16 15:30 Urine WBC (Auto) < 1.0 /HPF (0.0-6.0) 12/06/16 15:30 Urine RBC (Auto) 4.0 /HPF (0.0-6.0) 12/06/16 15:30 Urine Mucus Few /HPF 12/06/16 15:30 Vancomycin Trough 33.7 ug/mL (5.0-20.0) H 12/16/16 18:34 Salicylates < 0.3 mg/dL (2.8-20.0) L 12/06/16 16:07 Urine Opiates Screen Presumptive negative 12/06/16 15:30 Urine Methadone Screen Presumptive negative 12/06/16 15:30 Acetaminophen < 15.0 ug/mL (10.0-30.0) 12/06/16 16:07 Ur Barbiturates Screen Presumptive negative 12/06/16 15:30 Ur Phencyclidine Scrn Presumptive negative 12/06/16 15:30 Ur Amphetamines Screen Presumptive negative 12/06/16 15:30 U Benzodiazepines Scrn Presumptive negative 12/06/16 15:30 Urine Cocaine Screen Presumptive negative 12/06/16 15:30 U Marijuana (THC) Screen Presumptive negative 12/06/16 15:30 Drugs of Abuse Note Disclamer 12/06/16 15:30 Plasma/Serum Alcohol < 0.01 gm% (0-0.07) 12/06/16 16:07 Hepatitis A IgM Ab Non-reactive (NonReactive) 12/18/16 18:21 Hep Bs Antigen Non-reactive (Negative) 12/18/16 18:21 Hep B Core IgM Ab Non-reactive (NonReactive) 12/18/16 18:21 Hepatitis C Antibody Reactive (NonReactive) 12/18/16 18:21
--- NOTE | 2016-12-20 13:45 | Progress Note ---
Assessment and Plan - Patient Problems (1) Acute hypoxemic respiratory failure Current Visit: Yes Status: Acute Plan to address problem: - remains intubated - continue aspiration precautions - continue bronchodilators and pulmonary toilet - wean FiO2 for sats > 94% - reduced set rate to 16/min - will begin PSV trials in am if tolerates - adjust sedation to control tachypnea prn (2) Altered mental status Current Visit: Yes Status: Acute Qualifiers: Altered mental status type: A Coma depth: C Coma timing: C Plan to address problem: - seen by neurology - prn sedation / benzo's - multi-factorial really including azotemia - will follow neuro recomendations but less agitated now (3) Cardiomyopathy Current Visit: Yes Status: Acute Plan to address problem: - despite CHF history he is likely volume dependent while with sepsis syndrome - continue volume resuscitation (conservative strategies though) - otherwise as per cardiology (4) Septic shock Current Visit: Yes Status: Acute Plan to address problem: - continue AB's per ID recs - r/o VTE re: fevers (dopplers negative but may benefit from CTA once more stable) - continue to wean vasopressors for MAP > 60-65mmHg - IVF per nephrology at this point (5) Diabetes Current Visit: No Status: Chronic Qualifiers: Diabetes mellitus type: D Diabetes mellitus complication status: D Diabetes mellitus complication detail: D Diabetic retinopathy severity: D Proliferative retinopathy type: P Diabetes mellitus macular edema: D Diabetes mellitus halfway insulin use: D Laterality: L Chronic kidney disease stage: C Plan to address problem: - prn IV insulin therapy for strict glycemic control (if glucochecks >/= 500) - continue SSI (6) BRITTANY (acute kidney injury) Current Visit: Yes Status: Deleted Plan to address problem: - nephrology on case - s/p vas-cath - HD/UF per nephrology recs (7) Subclavian artery injury Current Visit: Yes Status: Acute Qualifiers: Encounter type: E Laterality: L Plan to address problem: - seen by vascular team - phased extraction approach which may involve 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 - H&H holding (8) Discharge planning issues Current Visit: Yes Status: Acute Plan to address problem: - LTAC evaluation on hold for now - suspect he will need a tracheostomy especially re: initial failed extubation ...he is critically ill on life sustaining interventions including MVS & vasopressors and at high risk for further deterioration including ...30' CCT Subjective Date of service: 12/20/16 Principal diagnosis: Acute hypoxemic respiratory failure, shock Interval history: Seen and examined at bedside; 24 hour events reviewed; nursing and respiratory care staff consulted; no adverse overnight events reported to me; remains on MVS ; back on levophed; more agitated; no emesis or overt aspiration and following some simple commands; no gross bleeding Objective Vital Signs - 12hr 12/20/16 12/20/16 12/20/16 01:45 02:00 02:16 Temperature Pulse Rate 127 H 127 H 122 H Pulse Rate [ Anterior Bilateral Throughout] Pulse Rate [ From Monitor] Respiratory 33 H 31 H 29 H Rate Respiratory Rate [Anterior Bilateral Throughout] Blood Pressure 102/59 97/52 96/58 O2 Sat by Pulse 97 97 98 Oximetry 12/20/16 12/20/16 12/20/16 02:30 02:46 03:00 Temperature Pulse Rate 120 H 118 H 116 H Pulse Rate [ Anterior Bilateral Throughout] Pulse Rate [ From Monitor] Respiratory 27 H 26 H 26 H Rate Respiratory Rate [Anterior Bilateral Throughout] Blood Pressure 96/58 89/46 79/46 O2 Sat by Pulse 94 86 98 Oximetry 12/20/16 12/20/16 12/20/16 03:15 03:30 03:45 Temperature Pulse Rate 110 H 104 H 109 H Pulse Rate [ Anterior Bilateral Throughout] Pulse Rate [ From Monitor] Respiratory 25 H 24 26 H Rate Respiratory Rate [Anterior Bilateral Throughout] Blood Pressure 85/47 132/67 121/67 O2 Sat by Pulse 97 99 99 Oximetry 12/20/16 12/20/16 12/20/16 04:00 04:15 04:30 Temperature 98.2 F Pulse Rate 109 H 112 H 111 H Pulse Rate [ Anterior Bilateral Throughout] Pulse Rate [ From Monitor] Respiratory 27 H 27 H 27 H Rate Respiratory Rate [Anterior Bilateral Throughout] Blood Pressure 132/65 121/63 111/61 O2 Sat by Pulse 98 99 98 Oximetry 12/20/16 12/20/16 12/20/16 04:45 04:58 05:00 Temperature Pulse Rate 113 H 111 H 111 H Pulse Rate [ Anterior Bilateral Throughout] Pulse Rate [ From Monitor] Respiratory 19 27 H Rate Respiratory Rate [Anterior Bilateral Throughout] Blood Pressure 105/57 109/64 109/63 O2 Sat by Pulse 98 99 98 Oximetry 12/20/16 12/20/16 12/20/16 05:15 05:30 05:45 Temperature Pulse Rate 111 H 110 H 110 H Pulse Rate [ Anterior Bilateral Throughout] Pulse Rate [ From Monitor] Respiratory 27 H 28 H 19 Rate Respiratory Rate [Anterior Bilateral Throughout] Blood Pressure 113/64 115/60 124/61 O2 Sat by Pulse 99 98 98 Oximetry 12/20/16 12/20/16 12/20/16 06:00 06:15 06:30 Temperature Pulse Rate 113 H 113 H 111 H Pulse Rate [ Anterior Bilateral Throughout] Pulse Rate [ From Monitor] Respiratory 27 H 28 H 25 H Rate Respiratory Rate [Anterior Bilateral Throughout] Blood Pressure 122/62 118/63 107/59 O2 Sat by Pulse 98 Oximetry 12/20/16 12/20/16 12/20/16 06:46 07:00 07:15 Temperature Pulse Rate 113 H 111 H Pulse Rate [ Anterior Bilateral Throughout] Pulse Rate [ From Monitor] Respiratory 25 H 27 H Rate Respiratory Rate [Anterior Bilateral Throughout] Blood Pressure 121/73 107/61 116/60 O2 Sat by Pulse 98 97 Oximetry 12/20/16 12/20/16 12/20/16 07:30 07:45 07:52 Temperature 98.6 F Pulse Rate 110 H 109 H Pulse Rate [ Anterior Bilateral Throughout] Pulse Rate [ From Monitor] Respiratory 25 H 29 H Rate Respiratory Rate [Anterior Bilateral Throughout] Blood Pressure 117/61 112/63 O2 Sat by Pulse 97 96 Oximetry 12/20/16 12/20/16 12/20/16 08:00 08:15 08:30 Temperature Pulse Rate 108 H 109 H 111 H Pulse Rate [ Anterior Bilateral Throughout] Pulse Rate [ 111 H From Monitor] Respiratory 26 H 26 H 28 H Rate Respiratory Rate [Anterior Bilateral Throughout] Blood Pressure 112/67 104/59 106/61 O2 Sat by Pulse 96 97 97 Oximetry 12/20/16 12/20/16 12/20/16 08:45 09:00 09:15 Temperature Pulse Rate 108 H 108 H 110 H Pulse Rate [ Anterior Bilateral Throughout] Pulse Rate [ From Monitor] Respiratory 26 H 26 H 23 Rate Respiratory Rate [Anterior Bilateral Throughout] Blood Pressure 98/57 102/56 97/49 O2 Sat by Pulse 98 96 97 Oximetry 12/20/16 12/20/16 12/20/16 09:30 09:45 10:00 Temperature Pulse Rate 114 H 111 H 109 H Pulse Rate [ Anterior Bilateral Throughout] Pulse Rate [ From Monitor] Respiratory 26 H 26 H 27 H Rate Respiratory Rate [Anterior Bilateral Throughout] Blood Pressure 98/54 97/56 93/47 O2 Sat by Pulse 97 100 100 Oximetry 12/20/16 12/20/16 12/20/16 10:16 10:30 10:45 Temperature Pulse Rate 118 H 113 H 106 H Pulse Rate [ Anterior Bilateral Throughout] Pulse Rate [ From Monitor] Respiratory 26 H 27 H 29 H Rate Respiratory Rate [Anterior Bilateral Throughout] Blood Pressure 83/43 88/48 92/51 O2 Sat by Pulse 100 99 100 Oximetry 12/20/16 12/20/16 12/20/16 10:55 11:00 11:15 Temperature Pulse Rate 108 H 108 H 108 H Pulse Rate [ Anterior Bilateral Throughout] Pulse Rate [ From Monitor] Respiratory 23 24 Rate Respiratory Rate [Anterior Bilateral Throughout] Blood Pressure 102/50 95/48 91/55 O2 Sat by Pulse 99 Oximetry 12/20/16 12/20/16 12/20/16 11:30 11:45 12:00 Temperature 98.4 F Pulse Rate 107 H 109 H 111 H Pulse Rate [ Anterior Bilateral Throughout] Pulse Rate [ From Monitor] Respiratory 29 H 29 H 27 H Rate Respiratory Rate [Anterior Bilateral Throughout] Blood Pressure 92/51 96/55 95/56 O2 Sat by Pulse 100 Oximetry 12/20/16 12/20/16 12/20/16 12:05 12:15 12:30 Temperature Pulse Rate 108 H 108 H Pulse Rate [ 110 H Anterior Bilateral Throughout] Pulse Rate [ From Monitor] Respiratory 24 22 Rate Respiratory 26 H Rate [Anterior Bilateral Throughout] Blood Pressure 95/55 99/54 O2 Sat by Pulse 94 Oximetry 12/20/16 12:37 Temperature Pulse Rate Pulse Rate [ 106 H Anterior Bilateral Throughout] Pulse Rate [ From Monitor] Respiratory Rate Respiratory 24 Rate [Anterior Bilateral Throughout] Blood Pressure O2 Sat by Pulse Oximetry Constitutional: other (sedated) Eyes: non-icteric ENT: oropharynx moist Neck: supple, no lymphadenopathy, no JVD Effort: mildly labored Ascultation: Bilateral: diminished breath sounds, rales (basilar and scant) Cardiovascular: regular rate and rhythm Gastrointestinal: normoactive bowel sounds, hypoactive bowel sounds, soft, non- tender, non-distended Integumentary: normal Extremities: no cyanosis, pink and warm, pulses normal, no ischemia or petechiae Neurologic: non-focal exam (grossly), pupils equal and round, unable to assess Psychiatric: other (sedated) CBC and BMP: 12/22/16 09:34 12/22/16 04:00 ABG, PT/INR, D-dimer: ABG POC ABG pH 7.560 (7.35-7.45) H 12/20/16 05:11 POC ABG pCO2 28.2 (35-45) L 12/20/16 05:11 POC ABG pO2 90 (80-105) 12/20/16 05:11 POC ABG HCO3 25.3 12/20/16 05:11 POC ABG Total CO2 26 12/20/16 05:11 POC ABG O2 Sat 98 12/20/16 05:11 PT/INR, D-dimer PT 18.8 Sec. (12.2-14.9) H 12/18/16 16:55 INR 1.58 (0.87-1.13) H 12/18/16 16:55 D-Dimer 586.01 ng/mlDDU (0-234) H 12/14/16 18:03 Abnormal lab findings: Abnormal Labs 12/07/16 12/07/16 12/07/16 00:35 05:30 05:30 WBC RBC Hgb Hct MCV MCHC RDW 13.0 L Plt Count 93 L Lymph % (Auto) Atkinson % (Auto) 11.2 H Atkinson # 1.1 H Baso # Seg Neutrophils % 71.3 H Seg Neutrophils # PT INR D-Dimer POC ABG pH POC ABG pCO2 POC ABG pO2 Sodium Potassium Chloride Carbon Dioxide BUN Creatinine 0.6 L Glucose 168 H POC Glucose Lactic Acid Calcium 7.8 L Phosphorus Magnesium Direct Bilirubin 0.7 H AST ALT Alkaline Phosphatase Total Creatine Kinase 343 H C-Reactive Protein Total Protein Albumin 2.6 L TSH Vancomycin Trough 12/07/16 12/07/16 12/07/16 06:58 16:41 18:30 WBC RBC Hgb Hct MCV MCHC RDW Plt Count Lymph % (Auto) Atkinson % (Auto) Atkinson # Baso # Seg Neutrophils % Seg Neutrophils # PT INR D-Dimer POC ABG pH POC ABG pCO2 POC ABG pO2 Sodium Potassium Chloride Carbon Dioxide BUN Creatinine Glucose POC Glucose 175 H Lactic Acid Calcium Phosphorus Magnesium Direct Bilirubin AST ALT Alkaline Phosphatase Total Creatine Kinase 242 H C-Reactive Protein 7.70 H Total Protein Albumin TSH Vancomycin Trough 12/09/16 12/10/16 12/10/16 11:58 06:05 12:24 WBC RBC Hgb Hct MCV MCHC RDW Plt Count Lymph % (Auto) Atkinson % (Auto) Atkinson # Baso # Seg Neutrophils % Seg Neutrophils # PT INR D-Dimer POC ABG pH 7.485 H POC ABG pCO2 POC ABG pO2 Sodium Potassium Chloride Carbon Dioxide BUN Creatinine Glucose POC Glucose 141 H 183 H Lactic Acid Calcium Phosphorus Magnesium Direct Bilirubin AST ALT Alkaline Phosphatase Total Creatine Kinase C-Reactive Protein Total Protein Albumin TSH Vancomycin Trough 12/10/16 12/10/16 12/11/16 17:47 23:21 06:10 WBC RBC Hgb Hct MCV MCHC RDW Plt Count Lymph % (Auto) Atkinson % (Auto) Atkinson # Baso # Seg Neutrophils % Seg Neutrophils # PT INR D-Dimer POC ABG pH POC ABG pCO2 POC ABG pO2 Sodium Potassium Chloride Carbon Dioxide BUN Creatinine Glucose POC Glucose 176 H 240 H 252 H Lactic Acid Calcium Phosphorus Magnesium Direct Bilirubin AST ALT Alkaline Phosphatase Total Creatine Kinase C-Reactive Protein Total Protein Albumin TSH Vancomycin Trough 12/11/16 12/11/16 12/11/16 08:29 09:14 11:37 WBC RBC Hgb Hct MCV MCHC RDW 13.1 L Plt Count Lymph % (Auto) Atkinson % (Auto) Atkinson # Baso # Seg Neutrophils % Seg Neutrophils # PT INR D-Dimer POC ABG pH POC ABG pCO2 POC ABG pO2 Sodium Potassium Chloride Carbon Dioxide BUN Creatinine Glucose POC Glucose 253 H 284 H Lactic Acid Calcium Phosphorus Magnesium Direct Bilirubin AST ALT Alkaline Phosphatase Total Creatine Kinase C-Reactive Protein Total Protein Albumin TSH Vancomycin Trough 12/11/16 12/11/16 12/11/16 16:12 17:54 23:35 WBC RBC Hgb Hct MCV MCHC RDW Plt Count Lymph % (Auto) Atkinson % (Auto) Atkinson # Baso # Seg Neutrophils % Seg Neutrophils # PT INR D-Dimer POC ABG pH POC ABG pCO2 POC ABG pO2 Sodium Potassium Chloride Carbon Dioxide BUN 37 H Creatinine Glucose 258 H POC Glucose 227 H 264 H Lactic Acid Calcium 8.3 L Phosphorus Magnesium Direct Bilirubin AST ALT Alkaline Phosphatase Total Creatine Kinase C-Reactive Protein Total Protein Albumin 2.6 L TSH Vancomycin Trough 12/12/16 12/12/16 12/12/16 04:37 06:06 10:12 WBC RBC Hgb Hct MCV MCHC RDW Plt Count Lymph % (Auto) Atkinson % (Auto) Atkinson # Baso # Seg Neutrophils % Seg Neutrophils # PT INR D-Dimer POC ABG pH 7.500 H POC ABG pCO2 POC ABG pO2 69 L Sodium Potassium Chloride Carbon Dioxide BUN Creatinine Glucose POC Glucose 288 H Lactic Acid Calcium Phosphorus Magnesium Direct Bilirubin AST ALT Alkaline Phosphatase Total Creatine Kinase C-Reactive Protein Total Protein Albumin TSH Vancomycin Trough 12/12/16 12/12/16 12/12/16 13:08 17:46 23:31 WBC RBC Hgb Hct MCV MCHC RDW Plt Count Lymph % (Auto) Atkinson % (Auto) Atkinson # Baso # Seg Neutrophils % Seg Neutrophils # PT INR D-Dimer POC ABG pH POC ABG pCO2 POC ABG pO2 Sodium Potassium Chloride Carbon Dioxide BUN Creatinine Glucose POC Glucose 215 H 234 H 241 H Lactic Acid Calcium Phosphorus Magnesium Direct Bilirubin AST ALT Alkaline Phosphatase Total Creatine Kinase C-Reactive Protein Total Protein Albumin TSH Vancomycin Trough 12/13/16 12/13/16 12/13/16 05:38 11:44 17:32 WBC RBC Hgb Hct MCV MCHC RDW Plt Count Lymph % (Auto) Atkinson % (Auto) Atkinson # Baso # Seg Neutrophils % Seg Neutrophils # PT INR D-Dimer POC ABG pH POC ABG pCO2 POC ABG pO2 Sodium Potassium Chloride Carbon Dioxide BUN Creatinine Glucose POC Glucose 215 H 237 H 215 H Lactic Acid Calcium Phosphorus Magnesium Direct Bilirubin AST ALT Alkaline Phosphatase Total Creatine Kinase C-Reactive Protein Total Protein Albumin TSH Vancomycin Trough 12/14/16 12/14/16 12/14/16 00:22 05:40 12:03 WBC RBC Hgb Hct MCV MCHC RDW Plt Count Lymph % (Auto) Atkinson % (Auto) Atkinson # Baso # Seg Neutrophils % Seg Neutrophils # PT INR D-Dimer POC ABG pH POC ABG pCO2 POC ABG pO2 Sodium Potassium Chloride Carbon Dioxide BUN Creatinine Glucose POC Glucose 268 H 301 H 312 H Lactic Acid Calcium Phosphorus Magnesium Direct Bilirubin AST ALT Alkaline Phosphatase Total Creatine Kinase C-Reactive Protein Total Protein Albumin TSH Vancomycin Trough 12/14/16 12/14/16 12/14/16 18:03 18:03 18:03 WBC RBC Hgb Hct MCV MCHC RDW 12.9 L Plt Count Lymph % (Auto) Atkinson % (Auto) 8.0 H Atkinson # Baso # Seg Neutrophils % 72.4 H Seg Neutrophils # PT INR D-Dimer 586.01 H POC ABG pH POC ABG pCO2 POC ABG pO2 Sodium 150 H Potassium Chloride 109.1 H Carbon Dioxide BUN 50 H Creatinine Glucose 261 H POC Glucose Lactic Acid Calcium Phosphorus Magnesium Direct Bilirubin AST ALT Alkaline Phosphatase Total Creatine Kinase C-Reactive Protein Total Protein Albumin TSH Vancomycin Trough 12/14/16 12/14/16 12/14/16 18:30 21:55 23:59 WBC RBC Hgb Hct MCV MCHC RDW Plt Count Lymph % (Auto) Atkinson % (Auto) Atkinson # Baso # Seg Neutrophils % Seg Neutrophils # PT INR D-Dimer POC ABG pH POC ABG pCO2 POC ABG pO2 Sodium Potassium Chloride Carbon Dioxide BUN Creatinine Glucose POC Glucose 321 H 258 H 262 H Lactic Acid Calcium Phosphorus Magnesium Direct Bilirubin AST ALT Alkaline Phosphatase Total Creatine Kinase C-Reactive Protein Total Protein Albumin TSH Vancomycin Trough 12/15/16 12/15/16 12/15/16 05:28 06:04 09:15 WBC RBC Hgb Hct MCV MCHC RDW Plt Count Lymph % (Auto) Atkinson % (Auto) Atkinson # Baso # Seg Neutrophils % Seg Neutrophils # PT INR D-Dimer POC ABG pH POC ABG pCO2 POC ABG pO2 Sodium Potassium Chloride Carbon Dioxide BUN Creatinine Glucose POC Glucose 274 H 276 H Lactic Acid Calcium Phosphorus Magnesium Direct Bilirubin AST ALT Alkaline Phosphatase Total Creatine Kinase C-Reactive Protein Total Protein Albumin TSH 0.220 L Vancomycin Trough 12/15/16 12/15/16 12/15/16 11:59 13:40 18:06 WBC RBC Hgb Hct MCV MCHC RDW Plt Count Lymph % (Auto) Atkinson % (Auto) Atkinson # Baso # Seg Neutrophils % Seg Neutrophils # PT INR D-Dimer POC ABG pH POC ABG pCO2 33.3 L POC ABG pO2 70 L Sodium Potassium Chloride Carbon Dioxide BUN Creatinine Glucose POC Glucose 273 H Lactic Acid Calcium Phosphorus Magnesium Direct Bilirubin AST ALT Alkaline Phosphatase Total Creatine Kinase C-Reactive Protein Total Protein Albumin TSH 0.204 L Vancomycin Trough 12/15/16 12/15/16 12/16/16 18:14 21:26 02:08 WBC RBC Hgb Hct MCV MCHC RDW Plt Count Lymph % (Auto) Atkinson % (Auto) Atkinson # Baso # Seg Neutrophils % Seg Neutrophils # PT INR D-Dimer POC ABG pH 7.341 L POC ABG pCO2 POC ABG pO2 223 H Sodium Potassium Chloride Carbon Dioxide BUN Creatinine Glucose POC Glucose 234 H 371 H Lactic Acid Calcium Phosphorus Magnesium Direct Bilirubin AST ALT Alkaline Phosphatase Total Creatine Kinase C-Reactive Protein Total Protein Albumin TSH Vancomycin Trough 12/16/16 12/16/16 12/16/16 05:12 05:18 09:40 WBC RBC Hgb Hct MCV MCHC RDW Plt Count Lymph % (Auto) Atkinson % (Auto) Atkinson # Baso # Seg Neutrophils % Seg Neutrophils # PT INR D-Dimer POC ABG pH POC ABG pCO2 32.5 L POC ABG pO2 Sodium 154 H Potassium Chloride 116.8 H Carbon Dioxide 18 L D BUN 92 H Creatinine 3.0 H D Glucose 364 H POC Glucose 357 H Lactic Acid Calcium 8.2 L Phosphorus Magnesium Direct Bilirubin AST ALT Alkaline Phosphatase Total Creatine Kinase C-Reactive Protein Total Protein Albumin TSH Vancomycin Trough 12/16/16 12/16/16 12/16/16 13:40 18:27 18:34 WBC RBC Hgb Hct MCV MCHC RDW Plt Count Lymph % (Auto) Atkinson % (Auto) Atkinson # Baso # Seg Neutrophils % Seg Neutrophils # PT INR D-Dimer POC ABG pH POC ABG pCO2 POC ABG pO2 Sodium Potassium Chloride Carbon Dioxide BUN Creatinine Glucose POC Glucose 391 H 472 H Lactic Acid Calcium Phosphorus Magnesium Direct Bilirubin AST ALT Alkaline Phosphatase Total Creatine Kinase C-Reactive Protein Total Protein Albumin TSH Vancomycin Trough 33.7 H 12/17/16 12/17/16 12/17/16 00:38 01:54 05:53 WBC RBC Hgb Hct MCV MCHC RDW Plt Count Lymph % (Auto) Atkinson % (Auto) Atkinson # Baso # Seg Neutrophils % Seg Neutrophils # PT INR D-Dimer POC ABG pH 7.234 L POC ABG pCO2 34.5 L POC ABG pO2 50 L Sodium Potassium Chloride Carbon Dioxide BUN Creatinine Glucose POC Glucose 386 H 400 H Lactic Acid Calcium Phosphorus Magnesium Direct Bilirubin AST ALT Alkaline Phosphatase Total Creatine Kinase C-Reactive Protein Total Protein Albumin TSH Vancomycin Trough 12/17/16 12/17/16 12/17/16 06:45 06:45 07:45 WBC 12.3 H RBC Hgb 11.7 L Hct MCV 97 H D MCHC 31 L RDW Plt Count Lymph % (Auto) Atkinson % (Auto) 14.4 H Atkinson # 1.8 H Baso # 0.2 H Seg Neutrophils % Seg Neutrophils # 8.2 H PT INR D-Dimer POC ABG pH POC ABG pCO2 POC ABG pO2 Sodium Potassium 7.6 H* D Chloride 110.8 H Carbon Dioxide 14 L BUN 121 H Creatinine 5.4 H D Glucose 566 H* POC Glucose > 500 H Lactic Acid Calcium 6.2 L D Phosphorus Magnesium Direct Bilirubin AST 323 H ALT Alkaline Phosphatase 27 L Total Creatine Kinase C-Reactive Protein Total Protein Albumin 2.3 L TSH Vancomycin Trough 12/17/16 12/17/16 12/17/16 08:51 09:10 09:11 WBC RBC Hgb Hct MCV MCHC RDW Plt Count Lymph % (Auto) Atkinson % (Auto) Atkinson # Baso # Seg Neutrophils % Seg Neutrophils # PT INR D-Dimer POC ABG pH 7.113 L POC ABG pCO2 46.1 H POC ABG pO2 186 H Sodium Potassium Chloride Carbon Dioxide BUN Creatinine Glucose POC Glucose > 500 H Lactic Acid Calcium Phosphorus 9.5 H Magnesium 2.5 H Direct Bilirubin AST ALT Alkaline Phosphatase Total Creatine Kinase C-Reactive Protein Total Protein Albumin TSH Vancomycin Trough 12/17/16 12/17/16 12/17/16 10:18 10:50 11:17 WBC RBC Hgb Hct MCV MCHC RDW Plt Count Lymph % (Auto) [place]kinson % (Auto) Atkinson # Baso # Seg Neutrophils % Seg Neutrophils # PT INR D-Dimer POC ABG pH POC ABG pCO2 POC ABG pO2 Sodium Potassium 6.1 H* Chloride 110.1 H Carbon Dioxide 14 L BUN 128 H Creatinine 5.5 H Glucose 580 H* POC Glucose > 500 H > 500 H Lactic Acid Calcium Phosphorus Magnesium Direct Bilirubin AST ALT Alkaline Phosphatase Total Creatine Kinase C-Reactive Protein Total Protein Albumin TSH Vancomycin Trough 12/17/16 12/17/16 12/17/16 12:09 12:30 13:36 WBC RBC Hgb Hct MCV MCHC RDW Plt Count Lymph % (Auto) Atkinson % (Auto) Atkinson # Baso # Seg Neutrophils % Seg Neutrophils # PT INR D-Dimer POC ABG pH POC ABG pCO2 POC ABG pO2 Sodium Potassium 5.6 H Chloride 110.4 H Carbon Dioxide 14 L BUN 138 H Creatinine 5.3 H Glucose 528 H* POC Glucose 428 H 426 H Lactic Acid Calcium 6.8 L D Phosphorus Magnesium Direct Bilirubin AST ALT Alkaline Phosphatase Total Creatine Kinase C-Reactive Protein Total Protein Albumin TSH Vancomycin Trough 12/17/16 12/17/16 12/17/16 14:11 14:25 14:45 WBC RBC Hgb Hct MCV MCHC RDW Plt Count Lymph % (Auto) Atkinson % (Auto) Atkinson # Baso # Seg Neutrophils % Seg Neutrophils # PT INR D-Dimer POC ABG pH 7.297 L POC ABG pCO2 34.2 L POC ABG pO2 114 H Sodium 146 H Potassium 5.3 H Chloride 109.3 H Carbon Dioxide 15 L BUN 128 H Creatinine 5.5 H Glucose 426 H POC Glucose 422 H Lactic Acid Calcium 6.7 L Phosphorus Magnesium Direct Bilirubin AST ALT Alkaline Phosphatase Total Creatine Kinase C-Reactive Protein Total Protein Albumin TSH Vancomycin Trough 12/17/16 12/17/16 12/17/16 15:07 16:03 16:56 WBC RBC Hgb Hct MCV MCHC RDW Plt Count Lymph % (Auto) Atkinson % (Auto) Atkinson # Baso # Seg Neutrophils % Seg Neutrophils # PT INR D-Dimer POC ABG pH POC ABG pCO2 POC ABG pO2 Sodium Potassium Chloride Carbon Dioxide BUN Creatinine Glucose POC Glucose 392 H 450 H 352 H Lactic Acid Calcium Phosphorus Magnesium Direct Bilirubin AST ALT Alkaline Phosphatase Total Creatine Kinase C-Reactive Protein Total Protein Albumin TSH Vancomycin Trough 12/17/16 12/17/16 12/17/16 18:00 18:10 18:38 WBC RBC Hgb Hct MCV MCHC RDW Plt Count Lymph % (Auto) Atkinson % (Auto) Atkinson # Baso # Seg Neutrophils % Seg Neutrophils # PT INR D-Dimer POC ABG pH POC ABG pCO2 POC ABG pO2 Sodium 147 H Potassium Chloride 109.7 H Carbon Dioxide 15 L BUN 140 H Creatinine 5.2 H Glucose 301 H POC Glucose 318 H 256 H Lactic Acid Calcium 6.5 L Phosphorus Magnesium Direct Bilirubin AST ALT Alkaline Phosphatase Total Creatine Kinase C-Reactive Protein Total Protein Albumin TSH Vancomycin Trough 12/17/16 12/17/16 12/17/16 19:31 20:00 20:44 WBC RBC Hgb Hct MCV MCHC RDW Plt Count Lymph % (Auto) Atkinson % (Auto) Atkinson # Baso # Seg Neutrophils % Seg Neutrophils # PT 17.7 H INR 1.46 H D-Dimer POC ABG pH POC ABG pCO2 30.5 L POC ABG pO2 134 H Sodium Potassium Chloride Carbon Dioxide BUN Creatinine Glucose POC Glucose 189 H Lactic Acid Calcium Phosphorus Magnesium Direct Bilirubin AST ALT Alkaline Phosphatase Total Creatine Kinase C-Reactive Protein Total Protein Albumin TSH Vancomycin Trough 12/17/16 12/17/16 12/18/16 21:59 23:18 00:15 WBC RBC Hgb Hct MCV MCHC RDW Plt Count Lymph % (Auto) Atkinson % (Auto) Atkinson # Baso # Seg Neutrophils % Seg Neutrophils # PT INR D-Dimer POC ABG pH POC ABG pCO2 POC ABG pO2 Sodium 147 H Potassium 5.2 H Chloride 107.9 H Carbon Dioxide 18 L BUN 143 H Creatinine 5.6 H Glucose 152 H POC Glucose 191 H 132 H Lactic Acid Calcium 6.3 L Phosphorus Magnesium Direct Bilirubin AST ALT Alkaline Phosphatase Total Creatine Kinase C-Reactive Protein Total Protein Albumin TSH Vancomycin Trough 12/18/16 12/18/16 12/18/16 00:18 01:08 02:35 WBC RBC Hgb Hct MCV MCHC RDW Plt Count Lymph % (Auto) Atkinson % (Auto) Atkinson # Baso # Seg Neutrophils % Seg Neutrophils # PT INR D-Dimer POC ABG pH POC ABG pCO2 POC ABG pO2 Sodium Potassium Chloride Carbon Dioxide BUN Creatinine Glucose POC Glucose 190 H 157 H 144 H Lactic Acid Calcium Phosphorus Magnesium Direct Bilirubin AST ALT Alkaline Phosphatase Total Creatine Kinase C-Reactive Protein Total Protein Albumin TSH Vancomycin Trough 12/18/16 12/18/16 12/18/16 03:14 04:11 05:07 WBC RBC Hgb Hct MCV MCHC RDW Plt Count Lymph % (Auto) [place]kinson % (Auto) Atkinson # Baso # Seg Neutrophils % Seg Neutrophils # PT INR D-Dimer POC ABG pH POC ABG pCO2 POC ABG pO2 Sodium Potassium Chloride Carbon Dioxide BUN Creatinine Glucose POC Glucose 117 H 108 H 122 H Lactic Acid Calcium Phosphorus Magnesium Direct Bilirubin AST ALT Alkaline Phosphatase Total Creatine Kinase C-Reactive Protein Total Protein Albumin TSH Vancomycin Trough 12/18/16 12/18/16 12/18/16 05:23 06:07 06:07 WBC RBC 3.18 L Hgb 9.6 L Hct 29.0 L D MCV MCHC RDW Plt Count 130 L Lymph % (Auto) Atkinson % (Auto) Atkinson # Baso # Seg Neutrophils % Seg Neutrophils # PT INR D-Dimer POC ABG pH 7.485 H POC ABG pCO2 27.5 L POC ABG pO2 275 H Sodium Potassium Chloride Carbon Dioxide BUN Creatinine Glucose POC Glucose Lactic Acid 3.2 H* Calcium Phosphorus Magnesium Direct Bilirubin AST ALT Alkaline Phosphatase Total Creatine Kinase C-Reactive Protein Total Protein Albumin TSH Vancomycin Trough 12/18/16 12/18/16 12/18/16 06:08 06:22 07:26 WBC RBC Hgb Hct MCV MCHC RDW Plt Count Lymph % (Auto) Atkinson % (Auto) Atkinson # Baso # Seg Neutrophils % Seg Neutrophils # PT 18.3 H INR 1.52 H D-Dimer POC ABG pH POC ABG pCO2 POC ABG pO2 Sodium Potassium Chloride Carbon Dioxide BUN Creatinine Glucose POC Glucose 159 H 198 H Lactic Acid Calcium Phosphorus Magnesium Direct Bilirubin AST ALT Alkaline Phosphatase Total Creatine Kinase C-Reactive Protein Total Protein Albumin TSH Vancomycin Trough 12/18/16 12/18/16 12/18/16 08:27 09:00 09:30 WBC RBC Hgb Hct MCV MCHC RDW Plt Count Lymph % (Auto) Atkinson % (Auto) Atkinson # Baso # Seg Neutrophils % Seg Neutrophils # PT INR D-Dimer POC ABG pH POC ABG pCO2 POC ABG pO2 Sodium 147 H Potassium 5.5 H Chloride Carbon Dioxide 17 L BUN 145 H Creatinine 6.4 H Glucose 213 H POC Glucose 220 H 216 H Lactic Acid Calcium 6.0 L Phosphorus Magnesium Direct Bilirubin AST ALT Alkaline Phosphatase Total Creatine Kinase C-Reactive Protein Total Protein Albumin TSH Vancomycin Trough 12/18/16 12/18/16 12/18/16 10:29 11:11 12:05 WBC RBC Hgb Hct MCV MCHC RDW Plt Count Lymph % (Auto) Atkinson % (Auto) Atkinson # Baso # Seg Neutrophils % Seg Neutrophils # PT INR D-Dimer POC ABG pH POC ABG pCO2 POC ABG pO2 Sodium Potassium Chloride Carbon Dioxide BUN Creatinine Glucose POC Glucose 248 H 214 H 165 H Lactic Acid Calcium Phosphorus Magnesium Direct Bilirubin AST ALT Alkaline Phosphatase Total Creatine Kinase C-Reactive Protein Total Protein Albumin TSH Vancomycin Trough 12/18/16 12/18/16 12/18/16 13:06 13:59 14:45 WBC RBC Hgb Hct MCV MCHC RDW Plt Count Lymph % (Auto) Atkinson % (Auto) Atkinson # Baso # Seg Neutrophils % Seg Neutrophils # PT INR D-Dimer POC ABG pH POC ABG pCO2 29.2 L POC ABG pO2 Sodium Potassium Chloride Carbon Dioxide BUN Creatinine Glucose POC Glucose 133 H 116 H Lactic Acid Calcium Phosphorus Magnesium Direct Bilirubin AST ALT Alkaline Phosphatase Total Creatine Kinase C-Reactive Protein Total Protein Albumin TSH Vancomycin Trough 12/18/16 12/18/16 12/18/16 14:52 15:14 15:52 WBC RBC Hgb Hct MCV MCHC RDW Plt Count Lymph % (Auto) Atkinson % (Auto) Atkinson # Baso # Seg Neutrophils % Seg Neutrophils # PT INR D-Dimer POC ABG pH POC ABG pCO2 24.2 L POC ABG pO2 Sodium Potassium Chloride Carbon Dioxide BUN Creatinine Glucose POC Glucose 139 H 146 H Lactic Acid Calcium Phosphorus Magnesium Direct Bilirubin AST ALT Alkaline Phosphatase Total Creatine Kinase C-Reactive Protein Total Protein Albumin TSH Vancomycin Trough 12/18/16 12/18/16 12/18/16 16:55 16:55 17:18 WBC RBC Hgb 11.4 L Hct 33.9 L MCV MCHC RDW Plt Count Lymph % (Auto) Atkinson % (Auto) Atkinson # Baso # Seg Neutrophils % Seg Neutrophils # PT 18.8 H INR 1.58 H D-Dimer POC ABG pH POC ABG pCO2 POC ABG pO2 Sodium Potassium Chloride Carbon Dioxide BUN Creatinine Glucose POC Glucose 144 H Lactic Acid Calcium Phosphorus Magnesium Direct Bilirubin AST ALT Alkaline Phosphatase Total Creatine Kinase C-Reactive Protein Total Protein Albumin TSH Vancomycin Trough 12/18/16 12/18/16 12/18/16 18:12 18:21 20:17 WBC RBC Hgb Hct MCV MCHC RDW Plt Count Lymph % (Auto) Atkinson % (Auto) Atkinson # Baso # Seg Neutrophils % Seg Neutrophils # PT INR D-Dimer POC ABG pH POC ABG pCO2 POC ABG pO2 Sodium Potassium Chloride Carbon Dioxide BUN Creatinine Glucose POC Glucose 147 H 120 H Lactic Acid Calcium Phosphorus 5.4 H D Magnesium Direct Bilirubin AST ALT Alkaline Phosphatase Total Creatine Kinase C-Reactive Protein Total Protein Albumin TSH Vancomycin Trough 12/18/16 12/19/16 12/19/16 22:52 00:56 02:09 WBC RBC Hgb Hct MCV MCHC RDW Plt Count Lymph % (Auto) Atkinson % (Auto) Atkinson # Baso # Seg Neutrophils % Seg Neutrophils # PT INR D-Dimer POC ABG pH POC ABG pCO2 POC ABG pO2 Sodium Potassium Chloride Carbon Dioxide BUN Creatinine Glucose POC Glucose 124 H 168 H 140 H Lactic Acid Calcium Phosphorus Magnesium Direct Bilirubin AST ALT Alkaline Phosphatase Total Creatine Kinase C-Reactive Protein Total Protein Albumin TSH Vancomycin Trough 0312/19/16 12/19/16 04:20 04:20 04:53 WBC 11.8 H RBC Hgb 11.7 L Hct 34.7 L MCV MCHC RDW Plt Count Lymph % (Auto) 11.3 L Atkinson % (Auto) Atkinson # Baso # Seg Neutrophils % 83.9 H Seg Neutrophils # 9.9 H PT INR D-Dimer POC ABG pH POC ABG pCO2 POC ABG pO2 Sodium Potassium Chloride Carbon Dioxide 20 L BUN 108 H Creatinine 4.9 H Glucose 131 H POC Glucose 112 H Lactic Acid Calcium 6.3 L Phosphorus Magnesium Direct Bilirubin AST 1058 H ALT 133 H Alkaline Phosphatase Total Creatine Kinase C-Reactive Protein Total Protein 6.1 L Albumin 2.3 L TSH Vancomycin Trough 12/19/16 12/19/16 12/19/16 05:42 06:30 07:37 WBC RBC Hgb Hct MCV MCHC RDW Plt Count Lymph % (Auto) Atkinson % (Auto) Atkinson # Baso # Seg Neutrophils % Seg Neutrophils # PT INR D-Dimer POC ABG pH 7.539 H POC ABG pCO2 26.0 L POC ABG pO2 Sodium Potassium Chloride Carbon Dioxide BUN Creatinine Glucose POC Glucose 119 H 126 H Lactic Acid Calcium Phosphorus Magnesium Direct Bilirubin AST ALT Alkaline Phosphatase Total Creatine Kinase C-Reactive Protein Total Protein Albumin TSH Vancomycin Trough 12/19/16 12/19/16 12/19/16 09:59 12:38 14:25 WBC RBC Hgb Hct MCV MCHC RDW Plt Count Lymph % (Auto) Atkinson % (Auto) Atkinson # Baso # Seg Neutrophils % Seg Neutrophils # PT INR D-Dimer POC ABG pH POC ABG pCO2 POC ABG pO2 Sodium Potassium Chloride Carbon Dioxide BUN Creatinine Glucose POC Glucose 118 H 139 H 143 H Lactic Acid Calcium Phosphorus Magnesium Direct Bilirubin AST ALT Alkaline Phosphatase Total Creatine Kinase C-Reactive Protein Total Protein Albumin TSH Vancomycin Trough 12/19/16 12/19/16 12/19/16 16:50 18:01 23:04 WBC RBC Hgb Hct MCV MCHC RDW Plt Count Lymph % (Auto) Atkinson % (Auto) Atkinson # Baso # Seg Neutrophils % Seg Neutrophils # PT INR D-Dimer POC ABG pH POC ABG pCO2 POC ABG pO2 Sodium Potassium Chloride Carbon Dioxide BUN Creatinine Glucose POC Glucose 253 H 259 H 200 H Lactic Acid Calcium Phosphorus Magnesium Direct Bilirubin AST ALT Alkaline Phosphatase Total Creatine Kinase C-Reactive Protein Total Protein Albumin TSH Vancomycin Trough 12/20/16 12/20/16 12/20/16 00:58 02:57 04:09 WBC RBC Hgb Hct MCV MCHC RDW Plt Count Lymph % (Auto) Atkinson % (Auto) Atkinson # Baso # Seg Neutrophils % Seg Neutrophils # PT INR D-Dimer POC ABG pH POC ABG pCO2 POC ABG pO2 Sodium Potassium Chloride Carbon Dioxide BUN Creatinine Glucose POC Glucose 210 H 162 H 109 H Lactic Acid Calcium Phosphorus Magnesium Direct Bilirubin AST ALT Alkaline Phosphatase Total Creatine Kinase C-Reactive Protein Total Protein Albumin TSH Vancomycin Trough 12/20/16 12/20/16 12/20/16 05:11 07:41 08:30 WBC RBC 3.36 L Hgb 10.1 L Hct 29.5 L MCV MCHC RDW Plt Count 114 L Lymph % (Auto) Atkinson % (Auto) Atkinson # Baso # Seg Neutrophils % Seg Neutrophils # PT INR D-Dimer POC ABG pH 7.560 H POC ABG pCO2 28.2 L POC ABG pO2 Sodium Potassium Chloride Carbon Dioxide BUN Creatinine Glucose POC Glucose 170 H Lactic Acid Calcium Phosphorus Magnesium Direct Bilirubin AST ALT Alkaline Phosphatase Total Creatine Kinase C-Reactive Protein Total Protein Albumin TSH Vancomycin Trough 12/20/16 12/20/16 08:30 11:55 WBC RBC Hgb Hct MCV MCHC RDW Plt Count Lymph % (Auto) Atkinson % (Auto) Atkinson # Baso # Seg Neutrophils % Seg Neutrophils # PT INR D-Dimer POC ABG pH POC ABG pCO2 POC ABG pO2 Sodium Potassium Chloride 95.1 L Carbon Dioxide BUN 78 H Creatinine 5.0 H Glucose 181 H POC Glucose 124 H Lactic Acid Calcium 6.2 L Phosphorus Magnesium Direct Bilirubin AST ALT Alkaline Phosphatase Total Creatine Kinase C-Reactive Protein Total Protein Albumin TSH Vancomycin Trough Allied health notes reviewed: RT
[2016-12-20] MEDS: NovoLIN R 100 UNITS in NACL 0.9% 99 ML IV SCH ×2 (14:46→18:17)
--- NOTE | 2016-12-20 20:14 | Progress Note ---
Subjective Date of service: 12/20/16 Principal diagnosis: Acute hypoxemic respiratory failure, shock Interval history: No new issues. Patient remain afebrile. PHYSICAL EXAM Vital signs - temp afebrile. chest - mild b/l rhonchi cvs - s1s2 abd - bs+ LABS See lab section ASSESSMENT 1. Pneumonia 2. Acute respiratory failure 3. Encephalopathy 4. CHF RECOMMENDATION 1. cbc/bmp in am 2. continue current antibiotics. Day 01/16 iv abx. Objective - Constitutional Vitals: Vital Signs Temp Pulse Resp BP Pulse Ox 98.0 F 114 H 22 109/59 97 12/20/16 15:53 12/20/16 18:00 12/20/16 18:25 12/20/16 18:00 12/20/16 18:25 Temperature -Last 24 Hours Temperature 98.0 F Temperature 98.4 F Temperature 98.6 F Temperature 98.2 F Temperature 98.5 F - Labs CBC & Chem 7: 12/20/16 08:30 12/20/16 08:30 Labs: Abnormal lab results 12/19/16 12/19/16 12/19/16 Range/Units 07:37 09:59 14:25 RBC (3.65-5.03) M/mm3 Hgb (11.8-15.2) gm/dl Hct (35.5-45.6) % Plt Count (140-440) K/mm3 POC ABG pH (7.35-7.45) POC ABG pCO2 (35-45) Chloride (98-107) mmol/L BUN (9-20) mg/dL Creatinine (0.8-1.5) mg/dL Glucose (75-100) mg/dL POC Glucose 126 H 118 H 143 H (70-105) Calcium (8.4-10.2) mg/dL 12/19/16 12/19/16 12/19/16 Range/Units 16:50 18:01 23:04 RBC (3.65-5.03) M/mm3 Hgb (11.8-15.2) gm/dl Hct (35.5-45.6) % Plt Count (140-440) K/mm3 POC ABG pH (7.35-7.45) POC ABG pCO2 (35-45) Chloride (98-107) mmol/L BUN (9-20) mg/dL Creatinine (0.8-1.5) mg/dL Glucose (75-100) mg/dL POC Glucose 253 H 259 H 200 H (70-105) Calcium (8.4-10.2) mg/dL 12/20/16 12/20/16 12/20/16 Range/Units 00:58 02:57 04:09 RBC (3.65-5.03) M/mm3 Hgb (11.8-15.2) gm/dl Hct (35.5-45.6) % Plt Count (140-440) K/mm3 POC ABG pH (7.35-7.45) POC ABG pCO2 (35-45) Chloride (98-107) mmol/L BUN (9-20) mg/dL Creatinine (0.8-1.5) mg/dL Glucose (75-100) mg/dL POC Glucose 210 H 162 H 109 H (70-105) Calcium (8.4-10.2) mg/dL 12/20/16 12/20/16 12/20/16 Range/Units 05:11 05:57 07:41 RBC (3.65-5.03) M/mm3 Hgb (11.8-15.2) gm/dl Hct (35.5-45.6) % Plt Count (140-440) K/mm3 POC ABG pH 7.560 H (7.35-7.45) POC ABG pCO2 28.2 L (35-45) Chloride (98-107) mmol/L BUN (9-20) mg/dL Creatinine (0.8-1.5) mg/dL Glucose (75-100) mg/dL POC Glucose 121 H 170 H (70-105) Calcium (8.4-10.2) mg/dL 12/20/16 12/20/16 12/20/16 Range/Units 08:30 08:30 10:06 RBC 3.36 L (3.65-5.03) M/mm3 Hgb 10.1 L (11.8-15.2) gm/dl Hct 29.5 L (35.5-45.6) % Plt Count 114 L (140-440) K/mm3 POC ABG pH (7.35-7.45) POC ABG pCO2 (35-45) Chloride 95.1 L (98-107) mmol/L BUN 78 H (9-20) mg/dL Creatinine 5.0 H (0.8-1.5) mg/dL Glucose 181 H (75-100) mg/dL POC Glucose 155 H (70-105) Calcium 6.2 L (8.4-10.2) mg/dL 12/20/16 12/20/16 12/20/16 Range/Units 11:55 14:44 16:24 RBC (3.65-5.03) M/mm3 Hgb (11.8-15.2) gm/dl Hct (35.5-45.6) % Plt Count (140-440) K/mm3 POC ABG pH (7.35-7.45) POC ABG pCO2 (35-45) Chloride (98-107) mmol/L BUN (9-20) mg/dL Creatinine (0.8-1.5) mg/dL Glucose (75-100) mg/dL POC Glucose 124 H 171 H 143 H (70-105) Calcium (8.4-10.2) mg/dL 12/20/16 Range/Units 18:14 RBC (3.65-5.03) M/mm3 Hgb (11.8-15.2) gm/dl Hct (35.5-45.6) % Plt Count (140-440) K/mm3 POC ABG pH (7.35-7.45) POC ABG pCO2 (35-45) Chloride (98-107) mmol/L BUN (9-20) mg/dL Creatinine (0.8-1.5) mg/dL Glucose (75-100) mg/dL POC Glucose 144 H (70-105) Calcium (8.4-10.2) mg/dL
[2016-12-21] MEDS: LEVOPHED 8 MG in NACL 0.9% 250ML 242 ML IV SCH ×2 (03:09→21:37)
[2016-12-21] MEDS: DUONEB 0.5 MG-3 MG/3 ML SOLN IH SCH ×4 (04:14→20:04)
[2016-12-21 05:42] LABS: ISTAT Base Excess -3; ISTAT HCO3 21.2; ISTAT PCO2 31.3 (35-45); ISTAT PH 7.439 (7.35-7.45); ISTAT PO2 105 (80-105); ISTAT SO2 98; ISTAT TCO2 22
[2016-12-21] MEDS: ZOSYN/NS 2.25 GM/50ML 2.25 GM/50 ML BAG IV SCH ×3 (06:55→21:36)
[2016-12-21] MEDS: HEPARIN SUB-Q SCH ×3 (06:56→21:37)
[2016-12-21] MEDS: REGLAN IV SCH ×3 (07:05→21:42)
[2016-12-21] MEDS: fentaNYL DRIP Premix 2,000 MCG/100 ML BAG IV SCH ×2 (08:58→15:09)
[2016-12-21] MEDS: NovoLIN R 100 UNITS in NACL 0.9% 99 ML IV SCH (09:25)
[2016-12-21] MEDS: ZYVOX 600MG/300ML 600 MG/300 ML BAG IV SCH ×2 (09:28→21:36)
[2016-12-21] MEDS: Centrum Liq PO SCH (09:44)
[2016-12-21] MEDS: VITAMIN B-1 PO SCH (09:45)
[2016-12-21] MEDS: PROTONIX IV SCH (09:45)
[2016-12-21] MEDS: BABY ASPIRIN PO SCH (09:46)
[2016-12-21] MEDS: FOLVITE PO SCH (09:46)
[2016-12-21 10:47] LABS: Hematocrit 31.3 % (35.5-45.6); Hemoglobin 10.8 gm/dl (11.8-15.2); Mean Corpuscular HGB Conc 34 % (32-34); Mean Corpuscular Hemoglobin 31 pg (28-32); Mean Corpuscular Volume 89 fl (84-94); Platelet Count 130 K/mm3 (140-440); Red Blood Count 3.52 M/mm3 (3.65-5.03); White Blood Count 11.8 K/mm3 (4.5-11.0)
[2016-12-21 10:55] LABS: BUN/Creatinine Ratio 15.8; Calcium 6.7 mg/dL (8.4-10.2); Chloride 94.5 mmol/L (98-107); Potassium 4.1 mmol/L (3.6-5.0)
--- NOTE | 2016-12-21 11:57 | Progress Note ---
Assessment and Plan 1. Pneumonia/respiratory failure currently intubated 2. Coronary artery disease status post PCI and stent 3. Ischemic cardiomyopathy LV ejection fraction 55% 4. Sepsis/septic shock 5. Acute renal failure Plan Patient's condition remains critical. Continue supportive cardiac management follow-up chest x-rays monitor input and output closely weaned off pressor agents as tolerated. Subjective Date of service: 12/21/16 Principal diagnosis: Acute hypoxemic respiratory failure, shock Interval history: No change in cardiac status Objective Vital Signs Temp Pulse Pulse Pulse Resp Resp BP 12/21/16 11:32 119 H 113/59 12/21/16 08:00 98.0 F 12/21/16 07:39 119 H 124/72 12/21/16 06:30 114 H 32 H 119/74 12/21/16 06:15 113 H 33 H 120/56 12/21/16 06:00 115 H 35 H 110/65 12/21/16 05:45 114 H 35 H 123/70 12/21/16 05:30 111 H 32 H 114/67 12/21/16 05:15 110 H 34 H 108/65 12/21/16 05:00 111 H 30 H 109/70 12/21/16 04:54 117 H 97/85 12/21/16 04:45 111 H 30 H 107/67 12/21/16 04:30 113 H 33 H 104/66 12/21/16 04:15 110 H 31 H 116/67 12/21/16 04:00 98.8 F 111 H 31 H 108/69 12/21/16 03:45 107 H 31 H 105/63 12/21/16 03:30 106 H 16 118/70 12/21/16 03:15 111 H 34 H 116/64 12/21/16 03:00 110 H 36 H 104/64 12/21/16 01:45 107 H 30 H 105/63 12/21/16 01:30 103 H 17 118/70 12/21/16 01:17 124 H 131/69 12/21/16 01:15 108 H 26 H 118/70 12/21/16 01:00 122 H 28 H 131/69 12/21/16 00:48 121 H 33 H 137/70 12/21/16 00:45 120 H 32 H 137/70 12/21/16 00:30 118 H 19 125/66 03/12/17 00:15 119 H 23 125/57 12/21/16 00:01 115 H 104/67 12/21/16 00:00 99.1 F 116 H 22 119/62 12/20/16 23:45 120 H 30 H 120/63 12/20/16 23:30 117 H 25 H 115/61 12/20/16 23:15 116 H 27 H 115/58 12/20/16 23:00 113 H 29 H 106/56 12/20/16 22:45 113 H 26 H 116/58 12/20/16 22:30 115 H 29 H 116/57 12/20/16 22:15 114 H 22 109/61 12/20/16 22:00 116 H 10 L 110/61 12/20/16 21:45 115 H 22 112/58 12/20/16 21:30 113 H 17 116/55 12/20/16 21:15 115 H 23 118/61 12/20/16 21:00 112 H 25 H 106/59 12/20/16 20:45 116 H 30 H 104/57 12/20/16 20:40 120 H 28 H 12/20/16 20:30 116 H 20 105/57 12/20/16 20:29 116 H 116/60 12/20/16 20:15 116 H 30 H 114/58 12/20/16 20:00 100.3 F H 117 H 21 114/56 12/20/16 19:45 117 H 27 H 119/63 12/20/16 19:30 111 H 17 100/53 12/20/16 19:15 112 H 26 H 97/57 12/20/16 19:00 113 H 25 H 109/58 12/20/16 18:45 111 H 24 89/50 12/20/16 18:30 116 H 21 113/64 12/20/16 18:25 22 12/20/16 18:15 113 H 26 H 121/55 12/20/16 18:00 114 H 24 109/59 12/20/16 17:50 113 H 104/56 12/20/16 17:45 111 H 24 104/55 12/20/16 17:30 110 H 28 H 98/52 12/20/16 17:15 110 H 26 H 98/53 12/20/16 17:00 111 H 22 103/55 12/20/16 16:45 113 H 27 H 104/57 12/20/16 16:30 112 H 29 H 96/56 12/20/16 16:15 111 H 29 H 108/55 12/20/16 16:00 112 H 110 H 26 H 94/58 12/20/16 15:53 98.0 F 12/20/16 15:45 110 H 17 107/54 12/20/16 15:40 111 H 108/55 12/20/16 15:30 109 H 22 99/54 12/20/16 15:25 104 H 20 12/20/16 15:15 112 H 21 103/51 12/20/16 15:10 102 H 22 12/20/16 15:00 110 H 26 H 103/56 12/20/16 14:45 109 H 24 103/53 12/20/16 14:30 106 H 21 113/53 12/20/16 14:15 109 H 29 H 98/50 12/20/16 14:00 107 H 22 97/55 12/20/16 13:45 107 H 26 H 98/56 12/20/16 13:30 109 H 26 H 95/53 12/20/16 13:15 111 H 29 H 101/54 12/20/16 13:00 110 H 30 H 91/55 12/20/16 12:45 113 H 29 H 100/54 12/20/16 12:37 106 H 24 12/20/16 12:30 108 H 22 99/54 12/20/16 12:15 108 H 24 95/55 12/20/16 12:05 110 H 26 H 12/20/16 12:00 98.4 F 111 H 110 H 22 95/56 12/20/16 11:45 109 H 29 H 96/55 12/20/16 11:30 107 H 29 H 92/51 12/20/16 11:15 108 H 24 91/55 12/20/16 11:00 108 H 23 95/48 Pulse Ox 12/21/16 11:32 96 12/21/16 08:00 12/21/16 07:39 97 12/21/16 06:30 12/21/16 06:15 12/21/16 06:00 12/21/16 05:45 12/21/16 05:30 03/12/17 05:15 12/21/16 05:00 12/21/16 04:54 98 12/21/16 04:45 12/21/16 04:30 12/21/16 04:15 12/21/16 04:00 99 12/21/16 03:45 100 12/21/16 03:30 12/21/16 03:15 12/21/16 03:00 12/21/16 01:45 100 12/21/16 01:30 12/21/16 01:17 12/21/16 01:15 12/21/16 01:00 12/21/16 00:48 12/21/16 00:45 12/21/16 00:30 12/21/16 00:15 12/21/16 00:01 98 12/21/16 00:00 98 12/20/16 23:45 100 12/20/16 23:30 98 12/20/16 23:15 97 12/20/16 23:00 96 12/20/16 22:45 96 12/20/16 22:30 96 12/20/16 22:15 98 12/20/16 22:00 12/20/16 21:45 12/20/16 21:30 12/20/16 21:15 12/20/16 21:00 12/20/16 20:45 93 12/20/16 20:40 12/20/16 20:30 12/20/16 20:29 97 12/20/16 20:15 12/20/16 20:00 100 12/20/16 19:45 89 12/20/16 19:30 92 12/20/16 19:15 96 12/20/16 19:00 97 12/20/16 18:45 99 12/20/16 18:30 99 12/20/16 18:25 97 12/20/16 18:15 12/20/16 18:00 90 12/20/16 17:50 98 12/20/16 17:45 12/20/16 17:30 12/20/16 17:15 12/20/16 17:00 12/20/16 16:45 92 12/20/16 16:30 100 12/20/16 16:15 12/20/16 16:00 97 12/20/16 15:53 03/11/17 15:45 12/20/16 15:40 99 12/20/16 15:30 12/20/16 15:25 12/20/16 15:15 12/20/16 15:10 12/20/16 15:00 12/20/16 14:45 12/20/16 14:30 12/20/16 14:15 12/20/16 14:00 98 12/20/16 13:45 12/20/16 13:30 12/20/16 13:15 12/20/16 13:00 12/20/16 12:45 12/20/16 12:37 12/20/16 12:30 94 12/20/16 12:15 12/20/16 12:05 12/20/16 12:00 99 12/20/16 11:45 12/20/16 11:30 100 12/20/16 11:15 12/20/16 11:00 - Physical Examination General: Other (Obese intubated on mechanical ventilator) HEENT: Positive: PERRL Neck: Positive: neck supple. Negative: JVD/HJR Cardiac: Positive: Regular Rate. Negative: S3, S4 Lungs: Positive: Rhonchi Abdomen: Positive: Soft, Active Bowel Sounds Extremities: Absent: edema - Labs and Meds CBC 12/21/16 Range/Units 09:35 WBC 11.8 H (4.5-11.0) K/mm3 RBC 3.52 L (3.65-5.03) M/mm3 Hgb 10.8 L (11.8-15.2) gm/dl Hct 31.3 L (35.5-45.6) % Plt Count 130 L (140-440) K/mm3 Comprehensive Metabolic Panel 12/21/16 Range/Units 09:35 Carbon Dioxide 21 L (22-30) mmol/L BUN 98 H (9-20) mg/dL Creatinine 6.2 H (0.8-1.5) mg/dL Glucose 133 H (75-100) mg/dL Calcium 6.7 L (8.4-10.2) mg/dL - Allied health notes Allied health notes reviewed: RT
--- NOTE | 2016-12-21 14:06 | Progress Note ---
Assessment and Plan - Patient Problems (1) Acute kidney failure with tubular necrosis Current Visit: Yes Status: Acute Plan to address problem: Kidney indices worsening. Electrolytes within normal limits. Developing some edema. We'll probably dialyze in the morning if hemodynamic status is at least fair. Reevaluate in the morning (2) Acute hypoxemic respiratory failure Current Visit: Yes Status: Acute Plan to address problem: Continue ventilator management by pulmonary. (3) Septic shock Current Visit: Yes Status: Acute Plan to address problem: Patient still on Levophed. Weaning ongoing. Continue antibiotics. (4) Systolic CHF, acute on chronic Current Visit: No Status: Acute Plan to address problem: EF 35%. Volume status a bit worse. Reevaluate need for dialysis for fluid removal on a daily basis. (5) Diabetes Current Visit: No Status: Chronic Qualifiers: Diabetes mellitus type: D Diabetes mellitus complication status: D Diabetes mellitus complication detail: D Diabetic retinopathy severity: D Proliferative retinopathy type: P Diabetes mellitus macular edema: D Diabetes mellitus meterman insulin use: D Laterality: L Chronic kidney disease stage: C Plan to address problem: But sugar management by primary attending Subjective Date of service: 12/21/16 Principal diagnosis: Acute hypoxemic respiratory failure, shock Interval history: Patient seen lying in bed. He is intubated on the ventilator. They had to increase sedation as patient was agitated. On fentanyl infusion. On Levophed now up to 8 mics per kilogram per minute. Unable to obtain review of systems due to patient being intubated on ventilator Objective - Exam Narrative Exam: [Middle-aged male] intubated on the ventilator HEENT [normocephalic atraumatic, pupils equal reactive to light, pink, clear oropharynx] Neck [supple, no thyromegaly no jugular venous distention] CVS [S1-S2 regular rate rhythm without murmur, rub or gallop] Chest [faint rhonchi diminished in the lower zones] Abdomen [soft nondistended nontender no organomegaly no bruit bowel sounds present] Extremities [mild edema no cyanosis or clubbing] Neuro [drowsy, intubated on ventilator] - Vital Signs Vital signs: Vital Signs - 12hr 12/21/16 12/21/16 12/21/16 01:15 01:17 01:30 Temperature Pulse Rate 108 H 124 H 103 H Pulse Rate [ From Monitor] Respiratory 26 H 17 Rate Blood Pressure 118/70 131/69 118/70 O2 Sat by Pulse Oximetry 12/21/16 12/21/16 12/21/16 01:45 03:00 03:15 Temperature Pulse Rate 107 H 110 H 111 H Pulse Rate [ From Monitor] Respiratory 30 H 36 H 34 H Rate Blood Pressure 105/63 104/64 116/64 O2 Sat by Pulse 100 Oximetry 12/21/16 12/21/16 12/21/16 03:30 03:45 04:00 Temperature 98.8 F Pulse Rate 106 H 107 H 111 H Pulse Rate [ From Monitor] Respiratory 16 31 H 31 H Rate Blood Pressure 118/70 105/63 108/69 O2 Sat by Pulse 100 99 Oximetry 12/21/16 12/21/16 12/21/16 04:15 04:30 04:45 Temperature Pulse Rate 110 H 113 H 111 H Pulse Rate [ From Monitor] Respiratory 31 H 33 H 30 H Rate Blood Pressure 116/67 104/66 107/67 O2 Sat by Pulse Oximetry 12/21/16 12/21/16 12/21/16 04:54 05:00 05:15 Temperature Pulse Rate 117 H 111 H 110 H Pulse Rate [ From Monitor] Respiratory 30 H 34 H Rate Blood Pressure 97/85 109/70 108/65 O2 Sat by Pulse 98 Oximetry 12/21/16 12/21/16 12/21/16 05:30 05:45 06:00 Temperature Pulse Rate 111 H 114 H 115 H Pulse Rate [ From Monitor] Respiratory 32 H 35 H 35 H Rate Blood Pressure 114/67 123/70 110/65 O2 Sat by Pulse Oximetry 12/21/16 12/21/16 12/21/16 06:15 06:30 06:45 Temperature Pulse Rate 113 H 114 H 117 H Pulse Rate [ From Monitor] Respiratory 33 H 32 H 33 H Rate Blood Pressure 120/56 119/74 113/73 O2 Sat by Pulse Oximetry 12/21/16 12/21/16 12/21/16 07:00 07:15 07:30 Temperature Pulse Rate 119 H 118 H 120 H Pulse Rate [ From Monitor] Respiratory 33 H 40 H 40 H Rate Blood Pressure 127/72 114/65 119/74 O2 Sat by Pulse Oximetry 12/21/16 12/21/16 12/21/16 07:39 07:45 08:00 Temperature 98.0 F Pulse Rate 119 H 121 H 118 H Pulse Rate [ 120 H From Monitor] Respiratory 36 H 32 H Rate Blood Pressure 124/72 129/73 140/69 O2 Sat by Pulse 97 Oximetry 12/21/16 12/21/16 12/21/16 08:15 08:30 08:45 Temperature Pulse Rate 120 H 120 H 121 H Pulse Rate [ From Monitor] Respiratory 40 H 40 H 36 H Rate Blood Pressure 136/116 132/76 128/74 O2 Sat by Pulse Oximetry 12/21/16 12/21/16 12/21/16 09:00 09:15 09:30 Temperature Pulse Rate 121 H 120 H 116 H Pulse Rate [ From Monitor] Respiratory 39 H 42 H 39 H Rate Blood Pressure 138/77 132/77 148/83 O2 Sat by Pulse 77 L 83 L Oximetry 12/21/16 12/21/16 12/21/16 09:45 10:00 10:15 Temperature Pulse Rate 120 H 118 H 122 H Pulse Rate [ From Monitor] Respiratory 40 H 37 H 37 H Rate Blood Pressure 137/73 151/73 136/65 O2 Sat by Pulse 87 85 84 Oximetry 12/21/16 12/21/16 12/21/16 10:30 10:45 11:00 Temperature Pulse Rate 118 H 120 H 120 H Pulse Rate [ From Monitor] Respiratory 36 H 37 H 36 H Rate Blood Pressure 124/64 125/70 120/69 O2 Sat by Pulse 90 92 76 L Oximetry 12/21/16 12/21/16 12/21/16 11:15 11:30 11:32 Temperature Pulse Rate 123 H 120 H 119 H Pulse Rate [ From Monitor] Respiratory 34 H 29 H Rate Blood Pressure 109/59 97/57 113/59 O2 Sat by Pulse 97 96 Oximetry 12/21/16 12/21/16 12/21/16 11:45 12:00 12:15 Temperature 102.6 F H Pulse Rate 121 H 119 H 120 H Pulse Rate [ 122 H From Monitor] Respiratory 29 H 28 H 29 H Rate Blood Pressure 98/59 101/57 110/62 O2 Sat by Pulse 97 97 97 Oximetry 12/21/16 12/21/16 12/21/16 12:30 12:45 13:00 Temperature Pulse Rate 119 H 121 H 119 H Pulse Rate [ From Monitor] Respiratory 29 H 30 H 29 H Rate Blood Pressure 108/59 111/62 110/57 O2 Sat by Pulse 97 97 98 Oximetry - Lab 12/21/16 09:35 12/21/16 09:35 Most recent lab results Calcium 6.7 mg/dL (8.4-10.2) L 12/21/16 09:35 Phosphorus 5.4 mg/dL (2.5-4.5) H D 12/18/16 18:21 Magnesium 2.5 mg/dL (1.7-2.3) H 12/17/16 09:10
--- NOTE | 2016-12-21 14:20 | Progress Note ---
Assessment and Plan - Patient Problems (1) Acute hypoxemic respiratory failure Current Visit: Yes Status: Acute Plan to address problem: - remains intubated - continue aspiration precautions - continue bronchodilators and pulmonary toilet - wean FiO2 for sats > 94% - reduced set rate to 16/min - will begin PSV trials in am if tolerates bedside SBT - adjust sedation to control tachypnea prn (2) Altered mental status Current Visit: Yes Status: Acute Qualifiers: Altered mental status type: A Coma depth: C Coma timing: C Plan to address problem: - seen by neurology - prn sedation / benzo's - multi-factorial really including azotemia - will follow neuro recomendations but less agitated now (3) Cardiomyopathy Current Visit: Yes Status: Acute Plan to address problem: - despite CHF history he is likely volume dependent while with sepsis syndrome - continue volume resuscitation (conservative strategies though) - otherwise as per cardiology (4) Septic shock Current Visit: Yes Status: Acute Plan to address problem: - continue AB's per ID recs - r/o VTE re: fevers (dopplers negative but may benefit from CTA once more stable) - continue to wean vasopressors for MAP > 60-65mmHg - IVF per nephrology at this point (5) Diabetes Current Visit: No Status: Chronic Qualifiers: Diabetes mellitus type: D Diabetes mellitus complication status: D Diabetes mellitus complication detail: D Diabetic retinopathy severity: D Proliferative retinopathy type: P Diabetes mellitus macular edema: D Diabetes mellitus halfway insulin use: D Laterality: L Chronic kidney disease stage: C Plan to address problem: - continue IV insulin therapy for strict glycemic control (6) BRITTANY (acute kidney injury) Current Visit: Yes Status: Deleted Plan to address problem: - nephrology on case - s/p vas-cath - HD/UF per nephrology recs (7) Subclavian artery injury Current Visit: Yes Status: Acute Qualifiers: Encounter type: E Laterality: L Plan to address problem: - seen by vascular team - phased extraction approach which may involve 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 - H&H holding (8) Discharge planning issues Current Visit: Yes Status: Acute Plan to address problem: - LTAC evaluation on hold for now - suspect he will need a tracheostomy especially re: initial failed extubation ...he is critically ill on life sustaining interventions including MVS & vasopressors and at high risk for further deterioration including ...33' CCT Subjective Date of service: 12/21/16 Principal diagnosis: Acute hypoxemic respiratory failure, shock Interval history: Seen and examined at bedside; 24 hour events reviewed; nursing and respiratory care staff consulted; no adverse overnight events reported to me; remains on MVS ; tolerating HD/UF; making some urine; awaiting vascular surgery intervention; no emesis or overt aspiration; follows simple commands Objective Vital Signs - 12hr 12/21/16 12/21/16 12/21/16 01:30 01:45 03:00 Temperature Pulse Rate 103 H 107 H 110 H Pulse Rate [ Anterior Bilateral Throughout] Pulse Rate [ From Monitor] Respiratory 17 30 H 36 H Rate Respiratory Rate [Anterior Bilateral Throughout] Blood Pressure 118/70 105/63 104/64 O2 Sat by Pulse 100 Oximetry 12/21/16 12/21/16 12/21/16 03:15 03:30 03:45 Temperature Pulse Rate 111 H 106 H 107 H Pulse Rate [ Anterior Bilateral Throughout] Pulse Rate [ From Monitor] Respiratory 34 H 16 31 H Rate Respiratory Rate [Anterior Bilateral Throughout] Blood Pressure 116/64 118/70 105/63 O2 Sat by Pulse 100 Oximetry 12/21/16 12/21/16 12/21/16 04:00 04:15 04:30 Temperature 98.8 F Pulse Rate 111 H 110 H 113 H Pulse Rate [ Anterior Bilateral Throughout] Pulse Rate [ From Monitor] Respiratory 31 H 31 H 33 H Rate Respiratory Rate [Anterior Bilateral Throughout] Blood Pressure 108/69 116/67 104/66 O2 Sat by Pulse 99 Oximetry 12/21/16 12/21/16 12/21/16 04:45 04:54 05:00 Temperature Pulse Rate 111 H 117 H 111 H Pulse Rate [ Anterior Bilateral Throughout] Pulse Rate [ From Monitor] Respiratory 30 H 30 H Rate Respiratory Rate [Anterior Bilateral Throughout] Blood Pressure 107/67 97/85 109/70 O2 Sat by Pulse 98 Oximetry 12/21/16 12/21/16 12/21/16 05:15 05:30 05:45 Temperature Pulse Rate 110 H 111 H 114 H Pulse Rate [ Anterior Bilateral Throughout] Pulse Rate [ From Monitor] Respiratory 34 H 32 H 35 H Rate Respiratory Rate [Anterior Bilateral Throughout] Blood Pressure 108/65 114/67 123/70 O2 Sat by Pulse Oximetry 12/21/16 12/21/16 12/21/16 06:00 06:15 06:30 Temperature Pulse Rate 115 H 113 H 114 H Pulse Rate [ Anterior Bilateral Throughout] Pulse Rate [ From Monitor] Respiratory 35 H 33 H 32 H Rate Respiratory Rate [Anterior Bilateral Throughout] Blood Pressure 110/65 120/56 119/74 O2 Sat by Pulse Oximetry 12/21/16 12/21/16 12/21/16 06:45 07:00 07:15 Temperature Pulse Rate 117 H 119 H 118 H Pulse Rate [ Anterior Bilateral Throughout] Pulse Rate [ From Monitor] Respiratory 33 H 33 H 40 H Rate Respiratory Rate [Anterior Bilateral Throughout] Blood Pressure 113/73 127/72 114/65 O2 Sat by Pulse Oximetry 12/21/16 12/21/16 12/21/16 07:30 07:39 07:45 Temperature Pulse Rate 120 H 119 H 121 H Pulse Rate [ Anterior Bilateral Throughout] Pulse Rate [ From Monitor] Respiratory 40 H 36 H Rate Respiratory Rate [Anterior Bilateral Throughout] Blood Pressure 119/74 124/72 129/73 O2 Sat by Pulse 97 Oximetry 12/21/16 12/21/16 12/21/16 08:00 08:15 08:30 Temperature 98.0 F Pulse Rate 118 H 120 H 120 H Pulse Rate [ Anterior Bilateral Throughout] Pulse Rate [ 120 H From Monitor] Respiratory 32 H 40 H 40 H Rate Respiratory Rate [Anterior Bilateral Throughout] Blood Pressure 140/69 136/116 132/76 O2 Sat by Pulse Oximetry 12/21/16 12/21/16 12/21/16 08:45 09:00 09:15 Temperature Pulse Rate 121 H 121 H 120 H Pulse Rate [ Anterior Bilateral Throughout] Pulse Rate [ From Monitor] Respiratory 36 H 39 H 42 H Rate Respiratory Rate [Anterior Bilateral Throughout] Blood Pressure 128/74 138/77 132/77 O2 Sat by Pulse 77 L Oximetry 12/21/16 12/21/16 12/21/16 09:30 09:45 10:00 Temperature Pulse Rate 116 H 120 H 118 H Pulse Rate [ Anterior Bilateral Throughout] Pulse Rate [ From Monitor] Respiratory 39 H 40 H 37 H Rate Respiratory Rate [Anterior Bilateral Throughout] Blood Pressure 148/83 137/73 151/73 O2 Sat by Pulse 83 L 87 85 Oximetry 12/21/16 12/21/16 12/21/16 10:15 10:30 10:45 Temperature Pulse Rate 122 H 118 H 120 H Pulse Rate [ Anterior Bilateral Throughout] Pulse Rate [ From Monitor] Respiratory 37 H 36 H 37 H Rate Respiratory Rate [Anterior Bilateral Throughout] Blood Pressure 136/65 124/64 125/70 O2 Sat by Pulse 84 90 92 Oximetry 12/21/16 12/21/16 12/21/16 11:00 11:15 11:30 Temperature Pulse Rate 120 H 123 H 120 H Pulse Rate [ Anterior Bilateral Throughout] Pulse Rate [ From Monitor] Respiratory 36 H 34 H 29 H Rate Respiratory Rate [Anterior Bilateral Throughout] Blood Pressure 120/69 109/59 97/57 O2 Sat by Pulse 76 L 97 Oximetry 12/21/16 12/21/16 12/21/16 11:32 11:45 12:00 Temperature 102.6 F H Pulse Rate 119 H 121 H 119 H Pulse Rate [ Anterior Bilateral Throughout] Pulse Rate [ 122 H From Monitor] Respiratory 29 H 28 H Rate Respiratory Rate [Anterior Bilateral Throughout] Blood Pressure 113/59 98/59 101/57 O2 Sat by Pulse 96 97 97 Oximetry 12/21/16 12/21/16 12/21/16 12:15 12:30 12:45 Temperature Pulse Rate 120 H 119 H 121 H Pulse Rate [ Anterior Bilateral Throughout] Pulse Rate [ From Monitor] Respiratory 29 H 29 H 30 H Rate Respiratory Rate [Anterior Bilateral Throughout] Blood Pressure 110/62 108/59 111/62 O2 Sat by Pulse 97 97 97 Oximetry 12/21/16 12/21/16 12/21/16 13:00 14:14 14:16 Temperature Pulse Rate 119 H 122 H Pulse Rate [ 120 H Anterior Bilateral Throughout] Pulse Rate [ From Monitor] Respiratory 29 H Rate Respiratory 29 H Rate [Anterior Bilateral Throughout] Blood Pressure 110/57 115/57 O2 Sat by Pulse 98 97 Oximetry Constitutional: other (sedated) Eyes: non-icteric ENT: oropharynx moist Neck: supple, no lymphadenopathy, no JVD Effort: mildly labored Ascultation: Bilateral: diminished breath sounds, rales (basilar and scant) Cardiovascular: regular rate and rhythm Gastrointestinal: normoactive bowel sounds, hypoactive bowel sounds, soft, non- tender, non-distended Integumentary: normal Extremities: no cyanosis, pink and warm, pulses normal, no ischemia or petechiae Neurologic: non-focal exam (grossly), pupils equal and round, unable to assess Psychiatric: other (sedated) CBC and BMP: 03/15/17 04:50 12/24/16 04:50 ABG, PT/INR, D-dimer: ABG POC ABG pH 7.439 (7.35-7.45) 12/21/16 04:31 POC ABG pCO2 31.3 (35-45) L 12/21/16 04:31 POC ABG pO2 105 (80-105) 12/21/16 04:31 POC ABG HCO3 21.2 12/21/16 04:31 POC ABG Total CO2 22 12/21/16 04:31 POC ABG O2 Sat 98 12/21/16 04:31 PT/INR, D-dimer PT 18.8 Sec. (12.2-14.9) H 12/18/16 16:55 INR 1.58 (0.87-1.13) H 12/18/16 16:55 D-Dimer 586.01 ng/mlDDU (0-234) H 12/14/16 18:03 Abnormal lab findings: Abnormal Labs 12/07/16 12/07/16 12/07/16 00:35 05:30 05:30 WBC RBC Hgb Hct MCV MCHC RDW 13.0 L Plt Count 93 L Lymph % (Auto) [place] % (Auto) 11.2 H [place] # 1.1 H Baso # Seg Neutrophils % 71.3 H Seg Neutrophils # PT INR D-Dimer POC ABG pH POC ABG pCO2 POC ABG pO2 Sodium Potassium Chloride Carbon Dioxide BUN Creatinine 0.6 L Glucose 168 H POC Glucose Lactic Acid Calcium 7.8 L Phosphorus Magnesium Direct Bilirubin 0.7 H AST ALT Alkaline Phosphatase Total Creatine Kinase 343 H C-Reactive Protein Total Protein Albumin 2.6 L TSH Vancomycin Trough 12/07/16 12/07/16 12/07/16 06:58 16:41 18:30 WBC RBC Hgb Hct MCV MCHC RDW Plt Count Lymph % (Auto) [place] % (Auto) [place] # Baso # Seg Neutrophils % Seg Neutrophils # PT INR D-Dimer POC ABG pH POC ABG pCO2 POC ABG pO2 Sodium Potassium Chloride Carbon Dioxide BUN Creatinine Glucose POC Glucose 175 H Lactic Acid Calcium Phosphorus Magnesium Direct Bilirubin AST ALT Alkaline Phosphatase Total Creatine Kinase 242 H C-Reactive Protein 7.70 H Total Protein Albumin TSH Vancomycin Trough 12/09/16 12/10/16 12/10/16 11:58 06:05 12:24 WBC RBC Hgb Hct MCV MCHC RDW Plt Count Lymph % (Auto) [place] % (Auto) [place] # Baso # Seg Neutrophils % Seg Neutrophils # PT INR D-Dimer POC ABG pH 7.485 H POC ABG pCO2 POC ABG pO2 Sodium Potassium Chloride Carbon Dioxide BUN Creatinine Glucose POC Glucose 141 H 183 H Lactic Acid Calcium Phosphorus Magnesium Direct Bilirubin AST ALT Alkaline Phosphatase Total Creatine Kinase C-Reactive Protein Total Protein Albumin TSH Vancomycin Trough 12/10/16 12/10/16 12/11/16 17:47 23:21 06:10 WBC RBC Hgb Hct MCV MCHC RDW Plt Count Lymph % (Auto) [place] % (Auto) [place] # Baso # Seg Neutrophils % Seg Neutrophils # PT INR D-Dimer POC ABG pH POC ABG pCO2 POC ABG pO2 Sodium Potassium Chloride Carbon Dioxide BUN Creatinine Glucose POC Glucose 176 H 240 H 252 H Lactic Acid Calcium Phosphorus Magnesium Direct Bilirubin AST ALT Alkaline Phosphatase Total Creatine Kinase C-Reactive Protein Total Protein Albumin TSH Vancomycin Trough 12/11/16 12/11/16 12/11/16 08:29 09:14 11:37 WBC RBC Hgb Hct MCV MCHC RDW 13.1 L Plt Count Lymph % (Auto) [place] % (Auto) [place] # Baso # Seg Neutrophils % Seg Neutrophils # PT INR D-Dimer POC ABG pH POC ABG pCO2 POC ABG pO2 Sodium Potassium Chloride Carbon Dioxide BUN Creatinine Glucose POC Glucose 253 H 284 H Lactic Acid Calcium Phosphorus Magnesium Direct Bilirubin AST ALT Alkaline Phosphatase Total Creatine Kinase C-Reactive Protein Total Protein Albumin TSH Vancomycin Trough 12/11/16 12/11/16 12/11/16 16:12 17:54 23:35 WBC RBC Hgb Hct MCV MCHC RDW Plt Count Lymph % (Auto) [place] % (Auto) [place] # Baso # Seg Neutrophils % Seg Neutrophils # PT INR D-Dimer POC ABG pH POC ABG pCO2 POC ABG pO2 Sodium Potassium Chloride Carbon Dioxide BUN 37 H Creatinine Glucose 258 H POC Glucose 227 H 264 H Lactic Acid Calcium 8.3 L Phosphorus Magnesium Direct Bilirubin AST ALT Alkaline Phosphatase Total Creatine Kinase C-Reactive Protein Total Protein Albumin 2.6 L TSH Vancomycin Trough 12/12/16 12/12/16 12/12/16 04:37 06:06 10:12 WBC RBC Hgb Hct MCV MCHC RDW Plt Count Lymph % (Auto) [place] % (Auto) [place] # Baso # Seg Neutrophils % Seg Neutrophils # PT INR D-Dimer POC ABG pH 7.500 H POC ABG pCO2 POC ABG pO2 69 L Sodium Potassium Chloride Carbon Dioxide BUN Creatinine Glucose POC Glucose 288 H Lactic Acid Calcium Phosphorus Magnesium Direct Bilirubin AST ALT Alkaline Phosphatase Total Creatine Kinase C-Reactive Protein Total Protein Albumin TSH Vancomycin Trough 12/12/16 12/12/16 12/12/16 13:08 17:46 23:31 WBC RBC Hgb Hct MCV MCHC RDW Plt Count Lymph % (Auto) [place] % (Auto) [place] # Baso # Seg Neutrophils % Seg Neutrophils # PT INR D-Dimer POC ABG pH POC ABG pCO2 POC ABG pO2 Sodium Potassium Chloride Carbon Dioxide BUN Creatinine Glucose POC Glucose 215 H 234 H 241 H Lactic Acid Calcium Phosphorus Magnesium Direct Bilirubin AST ALT Alkaline Phosphatase Total Creatine Kinase C-Reactive Protein Total Protein Albumin TSH Vancomycin Trough 12/13/16 12/13/16 12/13/16 05:38 11:44 17:32 WBC RBC Hgb Hct MCV MCHC RDW Plt Count Lymph % (Auto) [place] % (Auto) [place] # Baso # Seg Neutrophils % Seg Neutrophils # PT INR D-Dimer POC ABG pH POC ABG pCO2 POC ABG pO2 Sodium Potassium Chloride Carbon Dioxide BUN Creatinine Glucose POC Glucose 215 H 237 H 215 H Lactic Acid Calcium Phosphorus Magnesium Direct Bilirubin AST ALT Alkaline Phosphatase Total Creatine Kinase C-Reactive Protein Total Protein Albumin TSH Vancomycin Trough 12/14/16 12/14/16 12/14/16 00:22 05:40 12:03 WBC RBC Hgb Hct MCV MCHC RDW Plt Count Lymph % (Auto) [place] % (Auto) [place] # Baso # Seg Neutrophils % Seg Neutrophils # PT INR D-Dimer POC ABG pH POC ABG pCO2 POC ABG pO2 Sodium Potassium Chloride Carbon Dioxide BUN Creatinine Glucose POC Glucose 268 H 301 H 312 H Lactic Acid Calcium Phosphorus Magnesium Direct Bilirubin AST ALT Alkaline Phosphatase Total Creatine Kinase C-Reactive Protein Total Protein Albumin TSH Vancomycin Trough 12/14/16 12/14/16 12/14/16 18:03 18:03 18:03 WBC RBC Hgb Hct MCV MCHC RDW 12.9 L Plt Count Lymph % (Auto) [place] % (Auto) 8.0 H [place] # Baso # Seg Neutrophils % 72.4 H Seg Neutrophils # PT INR D-Dimer 586.01 H POC ABG pH POC ABG pCO2 POC ABG pO2 Sodium 150 H Potassium Chloride 109.1 H Carbon Dioxide BUN 50 H Creatinine Glucose 261 H POC Glucose Lactic Acid Calcium Phosphorus Magnesium Direct Bilirubin AST ALT Alkaline Phosphatase Total Creatine Kinase C-Reactive Protein Total Protein Albumin TSH Vancomycin Trough 12/14/16 12/14/16 12/14/16 18:30 21:55 23:59 WBC RBC Hgb Hct MCV MCHC RDW Plt Count Lymph % (Auto) [place] % (Auto) [place] # Baso # Seg Neutrophils % Seg Neutrophils # PT INR D-Dimer POC ABG pH POC ABG pCO2 POC ABG pO2 Sodium Potassium Chloride Carbon Dioxide BUN Creatinine Glucose POC Glucose 321 H 258 H 262 H Lactic Acid Calcium Phosphorus Magnesium Direct Bilirubin AST ALT Alkaline Phosphatase Total Creatine Kinase C-Reactive Protein Total Protein Albumin TSH Vancomycin Trough 12/15/16 12/15/16 12/15/16 05:28 06:04 09:15 WBC RBC Hgb Hct MCV MCHC RDW Plt Count Lymph % (Auto) [place] % (Auto) [place] # Baso # Seg Neutrophils % Seg Neutrophils # PT INR D-Dimer POC ABG pH POC ABG pCO2 POC ABG pO2 Sodium Potassium Chloride Carbon Dioxide BUN Creatinine Glucose POC Glucose 274 H 276 H Lactic Acid Calcium Phosphorus Magnesium Direct Bilirubin AST ALT Alkaline Phosphatase Total Creatine Kinase C-Reactive Protein Total Protein Albumin TSH 0.220 L Vancomycin Trough 12/15/16 12/15/16 12/15/16 11:59 13:40 18:06 WBC RBC Hgb Hct MCV MCHC RDW Plt Count Lymph % (Auto) [place] % (Auto) [place] # Baso # Seg Neutrophils % Seg Neutrophils # PT INR D-Dimer POC ABG pH POC ABG pCO2 33.3 L POC ABG pO2 70 L Sodium Potassium Chloride Carbon Dioxide BUN Creatinine Glucose POC Glucose 273 H Lactic Acid Calcium Phosphorus Magnesium Direct Bilirubin AST ALT Alkaline Phosphatase Total Creatine Kinase C-Reactive Protein Total Protein Albumin TSH 0.204 L Vancomycin Trough 12/15/16 12/15/16 12/16/16 18:14 21:26 02:08 WBC RBC Hgb Hct MCV MCHC RDW Plt Count Lymph % (Auto) [place] % (Auto) [place] # Baso # Seg Neutrophils % Seg Neutrophils # PT INR D-Dimer POC ABG pH 7.341 L POC ABG pCO2 POC ABG pO2 223 H Sodium Potassium Chloride Carbon Dioxide BUN Creatinine Glucose POC Glucose 234 H 371 H Lactic Acid Calcium Phosphorus Magnesium Direct Bilirubin AST ALT Alkaline Phosphatase Total Creatine Kinase C-Reactive Protein Total Protein Albumin TSH Vancomycin Trough 12/16/16 12/16/16 12/16/16 05:12 05:18 09:40 WBC RBC Hgb Hct MCV MCHC RDW Plt Count Lymph % (Auto) [place] % (Auto) [place] # Baso # Seg Neutrophils % Seg Neutrophils # PT INR D-Dimer POC ABG pH POC ABG pCO2 32.5 L POC ABG pO2 Sodium 154 H Potassium Chloride 116.8 H Carbon Dioxide 18 L D BUN 92 H Creatinine 3.0 H D Glucose 364 H POC Glucose 357 H Lactic Acid Calcium 8.2 L Phosphorus Magnesium Direct Bilirubin AST ALT Alkaline Phosphatase Total Creatine Kinase C-Reactive Protein Total Protein Albumin TSH Vancomycin Trough 12/16/16 12/16/16 12/16/16 13:40 18:27 18:34 WBC RBC Hgb Hct MCV MCHC RDW Plt Count Lymph % (Auto) [place] % (Auto) [place] # Baso # Seg Neutrophils % Seg Neutrophils # PT INR D-Dimer POC ABG pH POC ABG pCO2 POC ABG pO2 Sodium Potassium Chloride Carbon Dioxide BUN Creatinine Glucose POC Glucose 391 H 472 H Lactic Acid Calcium Phosphorus Magnesium Direct Bilirubin AST ALT Alkaline Phosphatase Total Creatine Kinase C-Reactive Protein Total Protein Albumin TSH Vancomycin Trough 33.7 H 12/17/16 12/17/16 12/17/16 00:38 01:54 05:53 WBC RBC Hgb Hct MCV MCHC RDW Plt Count Lymph % (Auto) [place] % (Auto) [place] # Baso # Seg Neutrophils % Seg Neutrophils # PT INR D-Dimer POC ABG pH 7.234 L POC ABG pCO2 34.5 L POC ABG pO2 50 L Sodium Potassium Chloride Carbon Dioxide BUN Creatinine Glucose POC Glucose 386 H 400 H Lactic Acid Calcium Phosphorus Magnesium Direct Bilirubin AST ALT Alkaline Phosphatase Total Creatine Kinase C-Reactive Protein Total Protein Albumin TSH Vancomycin Trough 12/17/16 12/17/16 12/17/16 06:45 06:45 07:45 WBC 12.3 H RBC Hgb 11.7 L Hct MCV 97 H D MCHC 31 L RDW Plt Count Lymph % (Auto) [place] % (Auto) 14.4 H [place] # 1.8 H Baso # 0.2 H Seg Neutrophils % Seg Neutrophils # 8.2 H PT INR D-Dimer POC ABG pH POC ABG pCO2 POC ABG pO2 Sodium Potassium 7.6 H* D Chloride 110.8 H Carbon Dioxide 14 L BUN 121 H Creatinine 5.4 H D Glucose 566 H* POC Glucose > 500 H Lactic Acid Calcium 6.2 L D Phosphorus Magnesium Direct Bilirubin AST 323 H ALT Alkaline Phosphatase 27 L Total Creatine Kinase C-Reactive Protein Total Protein Albumin 2.3 L TSH Vancomycin Trough 12/17/16 12/17/16 12/17/16 08:51 09:10 09:11 WBC RBC Hgb Hct MCV MCHC RDW Plt Count Lymph % (Auto) [place] % (Auto) [place] # Baso # Seg Neutrophils % Seg Neutrophils # PT INR D-Dimer POC ABG pH 7.113 L POC ABG pCO2 46.1 H POC ABG pO2 186 H Sodium Potassium Chloride Carbon Dioxide BUN Creatinine Glucose POC Glucose > 500 H Lactic Acid Calcium Phosphorus 9.5 H Magnesium 2.5 H Direct Bilirubin AST ALT Alkaline Phosphatase Total Creatine Kinase C-Reactive Protein Total Protein Albumin TSH Vancomycin Trough 12/17/16 12/17/16 12/17/16 10:18 10:50 11:17 WBC RBC Hgb Hct MCV MCHC RDW Plt Count Lymph % (Auto) [place] % (Auto) [place] # Baso # Seg Neutrophils % Seg Neutrophils # PT INR D-Dimer POC ABG pH POC ABG pCO2 POC ABG pO2 Sodium Potassium 6.1 H* Chloride 110.1 H Carbon Dioxide 14 L BUN 128 H Creatinine 5.5 H Glucose 580 H* POC Glucose > 500 H > 500 H Lactic Acid Calcium Phosphorus Magnesium Direct Bilirubin AST ALT Alkaline Phosphatase Total Creatine Kinase C-Reactive Protein Total Protein Albumin TSH Vancomycin Trough 12/17/16 12/17/16 12/17/16 12:09 12:30 13:36 WBC RBC Hgb Hct MCV MCHC RDW Plt Count Lymph % (Auto) [place] % (Auto) [place] # Baso # Seg Neutrophils % Seg Neutrophils # PT INR D-Dimer POC ABG pH POC ABG pCO2 POC ABG pO2 Sodium Potassium 5.6 H Chloride 110.4 H Carbon Dioxide 14 L BUN 138 H Creatinine 5.3 H Glucose 528 H* POC Glucose 428 H 426 H Lactic Acid Calcium 6.8 L D Phosphorus Magnesium Direct Bilirubin AST ALT Alkaline Phosphatase Total Creatine Kinase C-Reactive Protein Total Protein Albumin TSH Vancomycin Trough 12/17/16 12/17/16 12/17/16 14:11 14:25 14:45 WBC RBC Hgb Hct MCV MCHC RDW Plt Count Lymph % (Auto) [place] % (Auto) [place] # Baso # Seg Neutrophils % Seg Neutrophils # PT INR D-Dimer POC ABG pH 7.297 L POC ABG pCO2 34.2 L POC ABG pO2 114 H Sodium 146 H Potassium 5.3 H Chloride 109.3 H Carbon Dioxide 15 L BUN 128 H Creatinine 5.5 H Glucose 426 H POC Glucose 422 H Lactic Acid Calcium 6.7 L Phosphorus Magnesium Direct Bilirubin AST ALT Alkaline Phosphatase Total Creatine Kinase C-Reactive Protein Total Protein Albumin TSH Vancomycin Trough 12/17/16 12/17/16 12/17/16 15:07 16:03 16:56 WBC RBC Hgb Hct MCV MCHC RDW Plt Count Lymph % (Auto) [place] % (Auto) [place] # Baso # Seg Neutrophils % Seg Neutrophils # PT INR D-Dimer POC ABG pH POC ABG pCO2 POC ABG pO2 Sodium Potassium Chloride Carbon Dioxide BUN Creatinine Glucose POC Glucose 392 H 450 H 352 H Lactic Acid Calcium Phosphorus Magnesium Direct Bilirubin AST ALT Alkaline Phosphatase Total Creatine Kinase C-Reactive Protein Total Protein Albumin TSH Vancomycin Trough 12/17/16 12/17/16 12/17/16 18:00 18:10 18:38 WBC RBC Hgb Hct MCV MCHC RDW Plt Count Lymph % (Auto) [place] % (Auto) [place] # Baso # Seg Neutrophils % Seg Neutrophils # PT INR D-Dimer POC ABG pH POC ABG pCO2 POC ABG pO2 Sodium 147 H Potassium Chloride 109.7 H Carbon Dioxide 15 L BUN 140 H Creatinine 5.2 H Glucose 301 H POC Glucose 318 H 256 H Lactic Acid Calcium 6.5 L Phosphorus Magnesium Direct Bilirubin AST ALT Alkaline Phosphatase Total Creatine Kinase C-Reactive Protein Total Protein Albumin TSH Vancomycin Trough 12/17/16 12/17/16 12/17/16 19:31 20:00 20:44 WBC RBC Hgb Hct MCV MCHC RDW Plt Count Lymph % (Auto) [place] % (Auto) [place] # Baso # Seg Neutrophils % Seg Neutrophils # PT 17.7 H INR 1.46 H D-Dimer POC ABG pH POC ABG pCO2 30.5 L POC ABG pO2 134 H Sodium Potassium Chloride Carbon Dioxide BUN Creatinine Glucose POC Glucose 189 H Lactic Acid Calcium Phosphorus Magnesium Direct Bilirubin AST ALT Alkaline Phosphatase Total Creatine Kinase C-Reactive Protein Total Protein Albumin TSH Vancomycin Trough 12/17/16 12/17/16 12/18/16 21:59 23:18 00:15 WBC RBC Hgb Hct MCV MCHC RDW Plt Count Lymph % (Auto) [place] % (Auto) [place] # Baso # Seg Neutrophils % Seg Neutrophils # PT INR D-Dimer POC ABG pH POC ABG pCO2 POC ABG pO2 Sodium 147 H Potassium 5.2 H Chloride 107.9 H Carbon Dioxide 18 L BUN 143 H Creatinine 5.6 H Glucose 152 H POC Glucose 191 H 132 H Lactic Acid Calcium 6.3 L Phosphorus Magnesium Direct Bilirubin AST ALT Alkaline Phosphatase Total Creatine Kinase C-Reactive Protein Total Protein Albumin TSH Vancomycin Trough 12/18/16 12/18/16 12/18/16 00:18 01:08 02:35 WBC RBC Hgb Hct MCV MCHC RDW Plt Count Lymph % (Auto) [place] % (Auto) [place] # Baso # Seg Neutrophils % Seg Neutrophils # PT INR D-Dimer POC ABG pH POC ABG pCO2 POC ABG pO2 Sodium Potassium Chloride Carbon Dioxide BUN Creatinine Glucose POC Glucose 190 H 157 H 144 H Lactic Acid Calcium Phosphorus Magnesium Direct Bilirubin AST ALT Alkaline Phosphatase Total Creatine Kinase C-Reactive Protein Total Protein Albumin TSH Vancomycin Trough 12/18/16 12/18/16 12/18/16 03:14 04:11 05:07 WBC RBC Hgb Hct MCV MCHC RDW Plt Count Lymph % (Auto) [place] % (Auto) [place] # Baso # Seg Neutrophils % Seg Neutrophils # PT INR D-Dimer POC ABG pH POC ABG pCO2 POC ABG pO2 Sodium Potassium Chloride Carbon Dioxide BUN Creatinine Glucose POC Glucose 117 H 108 H 122 H Lactic Acid Calcium Phosphorus Magnesium Direct Bilirubin AST ALT Alkaline Phosphatase Total Creatine Kinase C-Reactive Protein Total Protein Albumin TSH Vancomycin Trough 12/18/16 12/18/16 12/18/16 05:23 06:07 06:07 WBC RBC 3.18 L Hgb 9.6 L Hct 29.0 L D MCV MCHC RDW Plt Count 130 L Lymph % (Auto) [place] % (Auto) [place] # Baso # Seg Neutrophils % Seg Neutrophils # PT INR D-Dimer POC ABG pH 7.485 H POC ABG pCO2 27.5 L POC ABG pO2 275 H Sodium Potassium Chloride Carbon Dioxide BUN Creatinine Glucose POC Glucose Lactic Acid 3.2 H* Calcium Phosphorus Magnesium Direct Bilirubin AST ALT Alkaline Phosphatase Total Creatine Kinase C-Reactive Protein Total Protein Albumin TSH Vancomycin Trough 12/18/16 12/18/16 12/18/16 06:08 06:22 07:26 WBC RBC Hgb Hct MCV MCHC RDW Plt Count Lymph % (Auto) [place] % (Auto) [place] # Baso # Seg Neutrophils % Seg Neutrophils # PT 18.3 H INR 1.52 H D-Dimer POC ABG pH POC ABG pCO2 POC ABG pO2 Sodium Potassium Chloride Carbon Dioxide BUN Creatinine Glucose POC Glucose 159 H 198 H Lactic Acid Calcium Phosphorus Magnesium Direct Bilirubin AST ALT Alkaline Phosphatase Total Creatine Kinase C-Reactive Protein Total Protein Albumin TSH Vancomycin Trough 12/18/16 12/18/16 12/18/16 08:27 09:00 09:30 WBC RBC Hgb Hct MCV MCHC RDW Plt Count Lymph % (Auto) [place] % (Auto) [place] # Baso # Seg Neutrophils % Seg Neutrophils # PT INR D-Dimer POC ABG pH POC ABG pCO2 POC ABG pO2 Sodium 147 H Potassium 5.5 H Chloride Carbon Dioxide 17 L BUN 145 H Creatinine 6.4 H Glucose 213 H POC Glucose 220 H 216 H Lactic Acid Calcium 6.0 L Phosphorus Magnesium Direct Bilirubin AST ALT Alkaline Phosphatase Total Creatine Kinase C-Reactive Protein Total Protein Albumin TSH Vancomycin Trough 12/18/16 12/18/16 12/18/16 10:29 11:11 12:05 WBC RBC Hgb Hct MCV MCHC RDW Plt Count Lymph % (Auto) [place] % (Auto) [place] # Baso # Seg Neutrophils % Seg Neutrophils # PT INR D-Dimer POC ABG pH POC ABG pCO2 POC ABG pO2 Sodium Potassium Chloride Carbon Dioxide BUN Creatinine Glucose POC Glucose 248 H 214 H 165 H Lactic Acid Calcium Phosphorus Magnesium Direct Bilirubin AST ALT Alkaline Phosphatase Total Creatine Kinase C-Reactive Protein Total Protein Albumin TSH Vancomycin Trough 12/18/16 12/18/16 12/18/16 13:06 13:59 14:45 WBC RBC Hgb Hct MCV MCHC RDW Plt Count Lymph % (Auto) [place] % (Auto) [place] # Baso # Seg Neutrophils % Seg Neutrophils # PT INR D-Dimer POC ABG pH POC ABG pCO2 29.2 L POC ABG pO2 Sodium Potassium Chloride Carbon Dioxide BUN Creatinine Glucose POC Glucose 133 H 116 H Lactic Acid Calcium Phosphorus Magnesium Direct Bilirubin AST ALT Alkaline Phosphatase Total Creatine Kinase C-Reactive Protein Total Protein Albumin TSH Vancomycin Trough 12/18/16 12/18/16 12/18/16 14:52 15:14 15:52 WBC RBC Hgb Hct MCV MCHC RDW Plt Count Lymph % (Auto) [place] % (Auto) [place] # Baso # Seg Neutrophils % Seg Neutrophils # PT INR D-Dimer POC ABG pH POC ABG pCO2 24.2 L POC ABG pO2 Sodium Potassium Chloride Carbon Dioxide BUN Creatinine Glucose POC Glucose 139 H 146 H Lactic Acid Calcium Phosphorus Magnesium Direct Bilirubin AST ALT Alkaline Phosphatase Total Creatine Kinase C-Reactive Protein Total Protein Albumin TSH Vancomycin Trough 12/18/16 12/18/16 12/18/16 16:55 16:55 17:18 WBC RBC Hgb 11.4 L Hct 33.9 L MCV MCHC RDW Plt Count Lymph % (Auto) [place] % (Auto) [place] # Baso # Seg Neutrophils % Seg Neutrophils # PT 18.8 H INR 1.58 H D-Dimer POC ABG pH POC ABG pCO2 POC ABG pO2 Sodium Potassium Chloride Carbon Dioxide BUN Creatinine Glucose POC Glucose 144 H Lactic Acid Calcium Phosphorus Magnesium Direct Bilirubin AST ALT Alkaline Phosphatase Total Creatine Kinase C-Reactive Protein Total Protein Albumin TSH Vancomycin Trough 12/18/16 12/18/16 12/18/16 18:12 18:21 20:17 WBC RBC Hgb Hct MCV MCHC RDW Plt Count Lymph % (Auto) [place] % (Auto) [place] # Baso # Seg Neutrophils % Seg Neutrophils # PT INR D-Dimer POC ABG pH POC ABG pCO2 POC ABG pO2 Sodium Potassium Chloride Carbon Dioxide BUN Creatinine Glucose POC Glucose 147 H 120 H Lactic Acid Calcium Phosphorus 5.4 H D Magnesium Direct Bilirubin AST ALT Alkaline Phosphatase Total Creatine Kinase C-Reactive Protein Total Protein Albumin TSH Vancomycin Trough 12/18/16 12/19/16 12/19/16 22:52 00:56 02:09 WBC RBC Hgb Hct MCV MCHC RDW Plt Count Lymph % (Auto) [place] % (Auto) [place] # Baso # Seg Neutrophils % Seg Neutrophils # PT INR D-Dimer POC ABG pH POC ABG pCO2 POC ABG pO2 Sodium Potassium Chloride Carbon Dioxide BUN Creatinine Glucose POC Glucose 124 H 168 H 140 H Lactic Acid Calcium Phosphorus Magnesium Direct Bilirubin AST ALT Alkaline Phosphatase Total Creatine Kinase C-Reactive Protein Total Protein Albumin TSH Vancomycin Trough 12/19/16 12/19/16 12/19/16 04:20 04:20 04:53 WBC 11.8 H RBC Hgb 11.7 L Hct 34.7 L MCV MCHC RDW Plt Count Lymph % (Auto) 11.3 L [place] % (Auto) [place] # Baso # Seg Neutrophils % 83.9 H Seg Neutrophils # 9.9 H PT INR D-Dimer POC ABG pH POC ABG pCO2 POC ABG pO2 Sodium Potassium Chloride Carbon Dioxide 20 L BUN 108 H Creatinine 4.9 H Glucose 131 H POC Glucose 112 H Lactic Acid Calcium 6.3 L Phosphorus Magnesium Direct Bilirubin AST 1058 H ALT 133 H Alkaline Phosphatase Total Creatine Kinase C-Reactive Protein Total Protein 6.1 L Albumin 2.3 L TSH Vancomycin Trough 12/19/16 12/19/16 12/19/16 05:42 06:30 07:37 WBC RBC Hgb Hct MCV MCHC RDW Plt Count Lymph % (Auto) [place] % (Auto) [place] # Baso # Seg Neutrophils % Seg Neutrophils # PT INR D-Dimer POC ABG pH 7.539 H POC ABG pCO2 26.0 L POC ABG pO2 Sodium Potassium Chloride Carbon Dioxide BUN Creatinine Glucose POC Glucose 119 H 126 H Lactic Acid Calcium Phosphorus Magnesium Direct Bilirubin AST ALT Alkaline Phosphatase Total Creatine Kinase C-Reactive Protein Total Protein Albumin TSH Vancomycin Trough 12/19/16 12/19/16 12/19/16 09:59 12:38 14:25 WBC RBC Hgb Hct MCV MCHC RDW Plt Count Lymph % (Auto) [place] % (Auto) [place] # Baso # Seg Neutrophils % Seg Neutrophils # PT INR D-Dimer POC ABG pH POC ABG pCO2 POC ABG pO2 Sodium Potassium Chloride Carbon Dioxide BUN Creatinine Glucose POC Glucose 118 H 139 H 143 H Lactic Acid Calcium Phosphorus Magnesium Direct Bilirubin AST ALT Alkaline Phosphatase Total Creatine Kinase C-Reactive Protein Total Protein Albumin TSH Vancomycin Trough 12/19/16 12/19/16 12/19/16 16:50 18:01 23:04 WBC RBC Hgb Hct MCV MCHC RDW Plt Count Lymph % (Auto) [place] % (Auto) [place] # Baso # Seg Neutrophils % Seg Neutrophils # PT INR D-Dimer POC ABG pH POC ABG pCO2 POC ABG pO2 Sodium Potassium Chloride Carbon Dioxide BUN Creatinine Glucose POC Glucose 253 H 259 H 200 H Lactic Acid Calcium Phosphorus Magnesium Direct Bilirubin AST ALT Alkaline Phosphatase Total Creatine Kinase C-Reactive Protein Total Protein Albumin TSH Vancomycin Trough 12/20/16 12/20/16 12/20/16 00:58 02:57 04:09 WBC RBC Hgb Hct MCV MCHC RDW Plt Count Lymph % (Auto) [place] % (Auto) [place] # Baso # Seg Neutrophils % Seg Neutrophils # PT INR D-Dimer POC ABG pH POC ABG pCO2 POC ABG pO2 Sodium Potassium Chloride Carbon Dioxide BUN Creatinine Glucose POC Glucose 210 H 162 H 109 H Lactic Acid Calcium Phosphorus Magnesium Direct Bilirubin AST ALT Alkaline Phosphatase Total Creatine Kinase C-Reactive Protein Total Protein Albumin TSH Vancomycin Trough 12/20/16 12/20/16 12/20/16 05:11 05:57 07:41 WBC RBC Hgb Hct MCV MCHC RDW Plt Count Lymph % (Auto) [place] % (Auto) [place] # Baso # Seg Neutrophils % Seg Neutrophils # PT INR D-Dimer POC ABG pH 7.560 H POC ABG pCO2 28.2 L POC ABG pO2 Sodium Potassium Chloride Carbon Dioxide BUN Creatinine Glucose POC Glucose 121 H 170 H Lactic Acid Calcium Phosphorus Magnesium Direct Bilirubin AST ALT Alkaline Phosphatase Total Creatine Kinase C-Reactive Protein Total Protein Albumin TSH Vancomycin Trough 12/20/16 12/20/16 12/20/16 08:30 08:30 10:06 WBC RBC 3.36 L Hgb 10.1 L Hct 29.5 L MCV MCHC RDW Plt Count 114 L Lymph % (Auto) [place] % (Auto) [place] # Baso # Seg Neutrophils % Seg Neutrophils # PT INR D-Dimer POC ABG pH POC ABG pCO2 POC ABG pO2 Sodium Potassium Chloride 95.1 L Carbon Dioxide BUN 78 H Creatinine 5.0 H Glucose 181 H POC Glucose 155 H Lactic Acid Calcium 6.2 L Phosphorus Magnesium Direct Bilirubin AST ALT Alkaline Phosphatase Total Creatine Kinase C-Reactive Protein Total Protein Albumin TSH Vancomycin Trough 12/20/16 12/20/16 12/20/16 11:55 14:44 16:24 WBC RBC Hgb Hct MCV MCHC RDW Plt Count Lymph % (Auto) [place] % (Auto) [place] # Baso # Seg Neutrophils % Seg Neutrophils # PT INR D-Dimer POC ABG pH POC ABG pCO2 POC ABG pO2 Sodium Potassium Chloride Carbon Dioxide BUN Creatinine Glucose POC Glucose 124 H 171 H 143 H Lactic Acid Calcium Phosphorus Magnesium Direct Bilirubin AST ALT Alkaline Phosphatase Total Creatine Kinase C-Reactive Protein Total Protein Albumin TSH Vancomycin Trough 12/20/16 12/20/16 12/20/16 18:14 20:25 22:29 WBC RBC Hgb Hct MCV MCHC RDW Plt Count Lymph % (Auto) [place] % (Auto) [place] # Baso # Seg Neutrophils % Seg Neutrophils # PT INR D-Dimer POC ABG pH POC ABG pCO2 POC ABG pO2 Sodium Potassium Chloride Carbon Dioxide BUN Creatinine Glucose POC Glucose 144 H 130 H 146 H Lactic Acid Calcium Phosphorus Magnesium Direct Bilirubin AST ALT Alkaline Phosphatase Total Creatine Kinase C-Reactive Protein Total Protein Albumin TSH Vancomycin Trough 12/21/16 12/21/16 12/21/16 00:30 03:06 04:31 WBC RBC Hgb Hct MCV MCHC RDW Plt Count Lymph % (Auto) [place] % (Auto) [place] # Baso # Seg Neutrophils % Seg Neutrophils # PT INR D-Dimer POC ABG pH POC ABG pCO2 31.3 L POC ABG pO2 Sodium Potassium Chloride Carbon Dioxide BUN Creatinine Glucose POC Glucose 185 H 115 H Lactic Acid Calcium Phosphorus Magnesium Direct Bilirubin AST ALT Alkaline Phosphatase Total Creatine Kinase C-Reactive Protein Total Protein Albumin TSH Vancomycin Trough 12/21/16 12/21/16 12/21/16 04:45 06:38 06:41 WBC RBC Hgb Hct MCV MCHC RDW Plt Count Lymph % (Auto) [place] % (Auto) [place] # Baso # Seg Neutrophils % Seg Neutrophils # PT INR D-Dimer POC ABG pH POC ABG pCO2 POC ABG pO2 Sodium Potassium Chloride Carbon Dioxide BUN Creatinine Glucose POC Glucose 145 H 165 H 145 H Lactic Acid Calcium Phosphorus Magnesium Direct Bilirubin AST ALT Alkaline Phosphatase Total Creatine Kinase C-Reactive Protein Total Protein Albumin TSH Vancomycin Trough 12/21/16 12/21/16 12/21/16 09:35 09:35 12:22 WBC 11.8 H RBC 3.52 L Hgb 10.8 L Hct 31.3 L MCV MCHC RDW 13.0 L Plt Count 130 L Lymph % (Auto) [place] % (Auto) [place] # Baso # Seg Neutrophils % Seg Neutrophils # PT INR D-Dimer POC ABG pH POC ABG pCO2 POC ABG pO2 Sodium Potassium Chloride Carbon Dioxide 21 L BUN 98 H Creatinine 6.2 H Glucose 133 H POC Glucose 191 H Lactic Acid Calcium 6.7 L Phosphorus Magnesium Direct Bilirubin AST ALT Alkaline Phosphatase Total Creatine Kinase C-Reactive Protein Total Protein Albumin TSH Vancomycin Trough Chest x-ray: image reviewed Allied health notes reviewed: RT
[2016-12-21] MEDS: TYLENOL FEEDTUBE PRN (15:06)
--- NOTE | 2016-12-21 15:13 | Progress Note ---
Assessment and Plan Assessment and plan: Septic shock - cont ivf, abx, supportive care, - liklely due to underlying PNA - wean off pressor as tolerated Acute Respiratory failure - intubated now, Pulmonary following, - periodic breathing treatment, Acute metabolic encephalopathy - head CT showed no acute finding - neurology following - will do MRI when he is more stable Systolic CHF, acute on chronic - Cardiology consulted, supportive care for now. - on aspirin, statin, hold beta aries for now BRITTANY - nephrology following - started on HD, s/p HD x2 - likely due to ATN from septic shock - increase fluid with tube feeding Hyperkalemia - s/p bicarbonate, calcium chloride, kayexalate with tube - monitor BMP frequently Diabetes type 2 with DKA - cont on insulin drip - monitor BG q1h PNA, with Strep Pneumoniae - cont abx, repeat culture so far negative Bacteremia - one out of two cx positive for micrococcus - on clindamycin and levaquin Febrile illness, resolved - cont abx - off haldol and seroquel for possible drug fever Sinus tachycardia - due to septic shock - cont supportive care Hypernatremia - resolved - monitor BMP h/o hepatitis c with h/o alcohol abuse - hepatitis pannel positive for hep C - monitor LFT Subclavian artery injury - vascular surgeon following - cont on heparin drip - need to remove the catheter at director of cath lab when he is more stable The high probability of a clinically significant, sudden or life threatening deterioration of the [respiratory, cardiac, renal] system(s) required my full and direct attention, intervention and personal management. The aggregate critical care time was [40] minutes. This time is in addition to time spent performing reported procedures but includes the following: [x] Data Review and interpretation [x] Patient assessment and monitoring of vital signs [x] Documentation [x] Medication orders and management History Interval history: Pt seen and examined, remained intubated, UOP not improved, s/p HD X2 Still on pressor updated family at the bedside Hospitalist Physical - Physical exam Narrative exam: General appearance: Present: mild distress, obese, other (orally intubated.) - EENT Eyes: Present: conjunctival injection. Absent: irregular pupil, scleral icterus ENT: dentition normal, no thrush, no ulcerations, NG tube on place - Neck Neck: Absent: rigidity, enlarged thyroid, cervical LAD - Respiratory Respiratory: bilateral: rales - Cardiovascular Rhythm: other (tachycardic) Heart Sounds: Present: S1 & S2 - Extremities Extremities: no ischemia, pulses intact Peripheral Pulses: within normal limits - Abdominal General gastrointestinal: soft, non-tender, non-distended, normal bowel sounds - Integumentary Integumentary: Present: warm, dry - Neurologic Neurologic: open eyes with verbal commend (not sedated) - Constitutional Vitals: Temp Pulse Resp BP Pulse Ox 102.6 F H 120 H 28 H 115/57 97 12/21/16 12:00 12/21/16 14:31 12/21/16 14:31 12/21/16 14:14 12/21/16 14:14 General appearance: Present: other (intubated) Results - Labs CBC & Chem 7: 12/21/16 09:35 12/21/16 09:35 Labs: Laboratory Last Values WBC 11.8 K/mm3 (4.5-11.0) H 12/21/16 09:35 RBC 3.52 M/mm3 (3.65-5.03) L 12/21/16 09:35 Hgb 10.8 gm/dl (11.8-15.2) L 12/21/16 09:35 Hct 31.3 % (35.5-45.6) L 12/21/16 09:35 MCV 89 fl (84-94) 12/21/16 09:35 MCH 31 pg (28-32) 12/21/16 09:35 MCHC 34 % (32-34) 12/21/16 09:35 RDW 13.0 % (13.2-15.2) L 12/21/16 09:35 Plt Count 130 K/mm3 (140-440) L 12/21/16 09:35 Lymph % (Auto) 11.3 % (13.4-35.0) L 12/19/16 04:20 [place] % (Auto) 4.0 % (0.0-7.3) 12/19/16 04:20 E[place] % (Auto) 0.3 % (0.0-4.3) 12/19/16 04:20 Baso % (Auto) 0.5 % (0.0-1.8) 12/19/16 04:20 Lymph # 1.3 K/mm3 (1.2-5.4) 12/19/16 04:20 [place] # 0.5 K/mm3 (0.0-0.8) 12/19/16 04:20 Eos # 0.0 K/mm3 (0.0-0.4) 12/19/16 04:20 Baso # 0.1 K/mm3 (0.0-0.1) 12/19/16 04:20 Seg Neutrophils % 83.9 % (40.0-70.0) H 12/19/16 04:20 Seg Neutrophils # 9.9 K/mm3 (1.8-7.7) H 12/19/16 04:20 PT 18.8 Sec. (12.2-14.9) H 12/18/16 16:55 INR 1.58 (0.87-1.13) H 12/18/16 16:55 APTT 34.5 Sec. (24.2-36.6) 12/18/16 16:55 D-Dimer 586.01 ng/mlDDU (0-234) H 12/14/16 18:03 POC ABG pH 7.439 (7.35-7.45) 12/21/16 04:31 POC ABG pCO2 31.3 (35-45) L 12/21/16 04:31 POC ABG pO2 105 (80-105) 12/21/16 04:31 POC ABG HCO3 21.2 12/21/16 04:31 POC ABG Total CO2 22 12/21/16 04:31 POC ABG O2 Sat 98 12/21/16 04:31 POC ABG Base Excess -3 12/21/16 04:31 FiO2 40 % 12/21/16 04:31 Sodium 139 mmol/L (137-145) 12/20/16 08:30 Potassium 3.9 mmol/L (3.6-5.0) 12/20/16 08:30 Chloride 95.1 mmol/L (98-107) L 12/20/16 08:30 Carbon Dioxide 21 mmol/L (22-30) L 12/21/16 09:35 Anion Gap 25 mmol/L 12/20/16 08:30 BUN 98 mg/dL (9-20) H 12/21/16 09:35 Creatinine 6.2 mg/dL (0.8-1.5) H 12/21/16 09:35 Estimated GFR 9 ml/min 12/21/16 09:35 BUN/Creatinine Ratio 15.80 % 12/21/16 09:35 Glucose 133 mg/dL (75-100) H 12/21/16 09:35 POC Glucose 191 (70-105) H 12/21/16 12:22 Lactic Acid 1.9 mmol/L (0.7-2.0) 12/18/16 09:00 Calcium 6.7 mg/dL (8.4-10.2) L 12/21/16 09:35 Phosphorus 5.4 mg/dL (2.5-4.5) H D 12/18/16 18:21 Magnesium 2.5 mg/dL (1.7-2.3) H 12/17/16 09:10 Total Bilirubin 0.9 mg/dL (0.1-1.2) 12/19/16 04:20 Direct Bilirubin 0.7 mg/dL (0-0.2) H 12/07/16 05:30 Indirect Bilirubin 0.4 mg/dL 12/07/16 05:30 AST 1058 units/L (5-40) H 12/19/16 04:20 ALT 133 units/L (7-56) H 12/19/16 04:20 Alkaline Phosphatase 35 units/L (35-129) 12/19/16 04:20 Ammonia 42.0 umol/L (25-60) 12/06/16 16:07 Total Creatine Kinase 242 units/L (55-170) H 12/07/16 06:58 CK-MB (CK-2) 2.8 ng/mL (0.0-4.0) 12/07/16 06:58 CK-MB (CK-2) Rel Index 1.1 (0-4) 12/07/16 06:58 Troponin T < 0.010 ng/mL (0.00-0.029) 12/07/16 06:58 C-Reactive Protein 1.20 mg/dL (0.00-1.30) 12/15/16 11:37 Total Protein 6.1 g/dL (6.3-8.2) L 12/19/16 04:20 Albumin 2.3 g/dL (3.9-5) L 12/19/16 04:20 Albumin/Globulin Ratio 0.6 % 12/19/16 04:20 Vitamin B12 815.1 pg/mL (211-911) 12/15/16 09:15 TSH 0.204 mlU/mL (0.270-4.200) L 12/15/16 13:40 Free T4 1.16 ng/dL (0.76-1.46) 12/15/16 13:40 Urine Color Winsome (Yellow) 12/06/16 15:30 Urine Turbidity Clear (Clear) 12/06/16 15:30 Urine pH 6.0 (5.0-7.0) 12/06/16 15:30 Ur Specific [place] 1.017 (1.003-1.030) 12/06/16 15:30 Urine Protein 100 mg/dl mg/dL (Negative) 12/06/16 15:30 Urine Glucose (UA) 50 mg/dL (Negative) 12/06/16 15:30 Urine Ketones Neg mg/dL (Negative) 12/06/16 15:30 Urine Blood Sm (Negative) 12/06/16 15:30 Urine Nitrite Neg (Negative) 12/06/16 15:30 Urine Bilirubin Neg (Negative) 12/06/16 15:30 Urine Urobilinogen 4.0 mg/dL (<2.0) 12/06/16 15:30 Ur Leukocyte Esterase Neg (Negative) 12/06/16 15:30 Urine WBC (Auto) < 1.0 /HPF (0.0-6.0) 12/06/16 15:30 Urine RBC (Auto) 4.0 /HPF (0.0-6.0) 12/06/16 15:30 Urine Mucus Few /HPF 12/06/16 15:30 Vancomycin Trough 33.7 ug/mL (5.0-20.0) H 12/16/16 18:34 Salicylates < 0.3 mg/dL (2.8-20.0) L 12/06/16 16:07 Urine Opiates Screen Presumptive negative 12/06/16 15:30 Urine Methadone Screen Presumptive negative 12/06/16 15:30 Acetaminophen < 15.0 ug/mL (10.0-30.0) 12/06/16 16:07 Ur Barbiturates Screen Presumptive negative 02/25/17 15:30 Ur Phencyclidine Scrn Presumptive negative 12/06/16 15:30 Ur Amphetamines Screen Presumptive negative 12/06/16 15:30 U Benzodiazepines Scrn Presumptive negative 12/06/16 15:30 Urine Cocaine Screen Presumptive negative 12/06/16 15:30 U Marijuana (THC) Screen Presumptive negative 12/06/16 15:30 Drugs of Abuse Note Disclamer 12/06/16 15:30 Plasma/Serum Alcohol < 0.01 gm% (0-0.07) 12/06/16 16:07 Hepatitis A IgM Ab Non-reactive (NonReactive) 12/18/16 18:21 Hep Bs Antigen Non-reactive (Negative) 12/18/16 18:21 Hep B Core IgM Ab Non-reactive (NonReactive) 12/18/16 18:21 Hepatitis C Antibody Reactive (NonReactive) 12/18/16 18:21
[2016-12-21] MEDS ORDERED: BUMINATE-5 IV ONE (15:30)
--- NOTE | 2016-12-21 20:51 | Progress Note ---
Subjective Date of service: 12/21/16 Principal diagnosis: Acute hypoxemic respiratory failure, shock Interval history: Fever. PHYSICAL EXAM Vital signs - temp 102. chest - mild b/l rhonchi cvs - s1s2 abd - bs+ LABS See lab section ASSESSMENT 1. Pneumonia 2. Acute respiratory failure 3. Encephalopathy 4. CHF RECOMMENDATION 1. cbc/bmp in am 2. continue current antibiotics. Day 5/ iv abx. 3. Will work up further in am if fever persists. Objective - Constitutional Vitals: Vital Signs Temp Pulse Resp BP Pulse Ox 102.8 F H 105 H 21 103/70 98 12/21/16 16:00 12/21/16 20:20 12/21/16 20:20 12/21/16 19:57 12/21/16 19:57 Temperature -Last 24 Hours Temperature 102.8 F Temperature 102.6 F Temperature 98.0 F Temperature 98.8 F Temperature 99.1 F Temperature 100.3 F - Labs CBC & Chem 7: 12/21/16 09:35 12/21/16 09:35 Labs: Abnormal lab results 12/20/16 12/20/16 12/21/16 Range/Units 20:25 22:29 00:30 WBC (4.5-11.0) K/mm3 RBC (3.65-5.03) M/mm3 Hgb (11.8-15.2) gm/dl Hct (35.5-45.6) % RDW (13.2-15.2) % Plt Count (140-440) K/mm3 POC ABG pCO2 (35-45) Carbon Dioxide (22-30) mmol/L BUN (9-20) mg/dL Creatinine (0.8-1.5) mg/dL Glucose (75-100) mg/dL POC Glucose 130 H 146 H 185 H (70-105) Calcium (8.4-10.2) mg/dL 12/21/16 12/21/16 12/21/16 Range/Units 03:06 04:31 04:45 WBC (4.5-11.0) K/mm3 RBC (3.65-5.03) M/mm3 Hgb (11.8-15.2) gm/dl Hct (35.5-45.6) % RDW (13.2-15.2) % Plt Count (140-440) K/mm3 POC ABG pCO2 31.3 L (35-45) Carbon Dioxide (22-30) mmol/L BUN (9-20) mg/dL Creatinine (0.8-1.5) mg/dL Glucose (75-100) mg/dL POC Glucose 115 H 145 H (70-105) Calcium (8.4-10.2) mg/dL 12/21/16 12/21/16 12/21/16 Range/Units 06:38 06:41 09:35 WBC 11.8 H (4.5-11.0) K/mm3 RBC 3.52 L (3.65-5.03) M/mm3 Hgb 10.8 L (11.8-15.2) gm/dl Hct 31.3 L (35.5-45.6) % RDW 13.0 L (13.2-15.2) % Plt Count 130 L (140-440) K/mm3 POC ABG pCO2 (35-45) Carbon Dioxide (22-30) mmol/L BUN (9-20) mg/dL Creatinine (0.8-1.5) mg/dL Glucose (75-100) mg/dL POC Glucose 165 H 145 H (70-105) Calcium (8.4-10.2) mg/dL 12/21/16 12/21/16 12/21/16 Range/Units 09:35 12:22 15:59 WBC (4.5-11.0) K/mm3 RBC (3.65-5.03) M/mm3 Hgb (11.8-15.2) gm/dl Hct (35.5-45.6) % RDW (13.2-15.2) % Plt Count (140-440) K/mm3 POC ABG pCO2 (35-45) Carbon Dioxide 21 L (22-30) mmol/L BUN 98 H (9-20) mg/dL Creatinine 6.2 H (0.8-1.5) mg/dL Glucose 133 H (75-100) mg/dL POC Glucose 191 H 182 H (70-105) Calcium 6.7 L (8.4-10.2) mg/dL 12/21/16 Range/Units 18:23 WBC (4.5-11.0) K/mm3 RBC (3.65-5.03) M/mm3 Hgb (11.8-15.2) gm/dl Hct (35.5-45.6) % RDW (13.2-15.2) % Plt Count (140-440) K/mm3 POC ABG pCO2 (35-45) Carbon Dioxide (22-30) mmol/L BUN (9-20) mg/dL Creatinine (0.8-1.5) mg/dL Glucose (75-100) mg/dL POC Glucose 167 H (70-105) Calcium (8.4-10.2) mg/dL
[2016-12-21] MEDS: ZOCOR PO SCH (21:37)
[2016-12-21] MEDS: DIFLUCAN 200 MG/100 ML BAG IV SCH (22:05)
[2016-12-22] MEDS: DUONEB 0.5 MG-3 MG/3 ML SOLN IH SCH ×4 (01:45→20:14)
[2016-12-22 04:33] LABS: Hematocrit 26.1 % (35.5-45.6); Hemoglobin 8.9 gm/dl (11.8-15.2); Mean Corpuscular HGB Conc 34 % (32-34); Mean Corpuscular Hemoglobin 30 pg (28-32); Mean Corpuscular Volume 89 fl (84-94); Platelet Count 103 K/mm3 (140-440); Red Blood Count 2.93 M/mm3 (3.65-5.03)
[2016-12-22 04:43] LABS: Calcium 6.3 mg/dL (8.4-10.2); Potassium 4.5 mmol/L (3.6-5.0)
[2016-12-22 05:11] LABS: BUN/Creatinine Ratio 17.24
[2016-12-22 05:27] LABS: ISTAT Base Excess -6; ISTAT HCO3 19.5; ISTAT PCO2 34.7 (35-45); ISTAT PH 7.356 (7.35-7.45); ISTAT PO2 103 (80-105); ISTAT SO2 98; ISTAT TCO2 21
[2016-12-22] MEDS: REGLAN IV SCH ×2 (05:27→21:27)
[2016-12-22] MEDS: ZOSYN/NS 2.25 GM/50ML 2.25 GM/50 ML BAG IV SCH ×3 (05:28→21:25)
[2016-12-22] MEDS: HEPARIN SUB-Q SCH ×3 (05:29→21:26)
[2016-12-22] MEDS ORDERED: LEVOPHED DRIP 4 MG/NS 250 ML 4 MG/250 ML BAG IV ONE ×2 (06:42)
--- NOTE | 2016-12-22 07:50 | XRay Report ---
AP CHEST HISTORY: Respiratory failure. FINDINGS: Lines and tubes are unchanged since 12/18/16. Heart size is stable and within normal limits. Mild increase in pulmonary venous congestion is demonstrated. The lungs are clear otherwise. No consolidation, pleural effusion or pneumothorax. Pleural calcifications are again noted. IMPRESSION: Mild increase in pulmonary venous congestion since the exam 3 days ago.
--- NOTE | 2016-12-22 09:51 | Progress Note ---
Assessment and Plan - Patient Problems (1) Acute kidney failure with tubular necrosis Current Visit: Yes Status: Acute Plan to address problem: Kidney indices worsening. Electrolytes within normal limits. Developing some edema. Will dialyze this morning. Reevaluate on a daily basis (2) Acute hypoxemic respiratory failure Current Visit: Yes Status: Acute Plan to address problem: Continue ventilator management by pulmonary. (3) Septic shock Current Visit: Yes Status: Acute Plan to address problem: Patient still on Levophed. Weaning ongoing. Continue antibiotics. (4) Systolic CHF, acute on chronic Current Visit: No Status: Acute Plan to address problem: EF 35%. Volume status a bit worse. Reevaluate need for dialysis for fluid removal on a daily basis. (5) Diabetes Current Visit: No Status: Chronic Qualifiers: Diabetes mellitus type: D Diabetes mellitus complication status: D Diabetes mellitus complication detail: D Diabetic retinopathy severity: D Proliferative retinopathy type: P Diabetes mellitus macular edema: D Diabetes mellitus group home insulin use: D Laterality: L Chronic kidney disease stage: C Plan to address problem: Blood sugar management by primary attending Subjective Date of service: 12/22/16 Principal diagnosis: Acute hypoxemic respiratory failure, shock Interval history: Patient seen lying in bed. He is intubated on the ventilator. On fentanyl infusion. On Levophed now up to 15 mics per kilogram per minute. Unable to obtain review of systems due to patient being intubated on ventilator Objective - Exam Narrative Exam: Middle-aged male intubated on the ventilator HEENT normocephalic atraumatic, pupils equal reactive to light, pink, clear oropharynx Neck supple, no thyromegaly no jugular venous distention CVS S1-S2 regular rate rhythm without murmur, rub or gallop Chest faint rhonchi diminished in the lower zones Abdomen soft nondistended nontender no organomegaly no bruit bowel sounds present Extremities mild edema no cyanosis or clubbing Neuro drowsy, intubated on ventilator - Vital Signs Vital signs: Vital Signs - 12hr 12/21/16 12/21/16 12/21/16 22:00 22:15 22:30 Temperature Pulse Rate 102 H 101 H 101 H Pulse Rate [ Anterior Bilateral Throughout] Pulse Rate [ From Monitor] Respiratory 21 22 19 Rate Respiratory Rate [Anterior Bilateral Throughout] Blood Pressure 108/50 102/49 108/50 O2 Sat by Pulse 98 98 98 Oximetry 12/21/16 12/21/16 12/21/16 22:45 23:00 23:15 Temperature Pulse Rate 99 H 99 H 95 H Pulse Rate [ Anterior Bilateral Throughout] Pulse Rate [ From Monitor] Respiratory 19 19 20 Rate Respiratory Rate [Anterior Bilateral Throughout] Blood Pressure 105/52 107/52 104/50 O2 Sat by Pulse 98 98 98 Oximetry 12/21/16 12/21/16 12/21/16 23:20 23:30 23:45 Temperature Pulse Rate 99 H 100 H 100 H Pulse Rate [ Anterior Bilateral Throughout] Pulse Rate [ From Monitor] Respiratory 19 20 21 Rate Respiratory Rate [Anterior Bilateral Throughout] Blood Pressure 106/53 116/50 113/54 O2 Sat by Pulse 97 97 97 Oximetry 12/22/16 12/22/16 12/22/16 00:00 00:01 00:15 Temperature 101.3 F H Pulse Rate 99 H 98 H 103 H Pulse Rate [ Anterior Bilateral Throughout] Pulse Rate [ 110 H From Monitor] Respiratory 19 18 Rate Respiratory Rate [Anterior Bilateral Throughout] Blood Pressure 116/54 104/72 120/59 O2 Sat by Pulse 97 98 97 Oximetry 12/22/16 12/22/16 12/22/16 00:30 00:45 01:00 Temperature Pulse Rate 106 H 102 H 111 H Pulse Rate [ Anterior Bilateral Throughout] Pulse Rate [ From Monitor] Respiratory 19 20 22 Rate Respiratory Rate [Anterior Bilateral Throughout] Blood Pressure 123/60 116/60 121/58 O2 Sat by Pulse 97 97 97 Oximetry 12/22/16 12/22/16 12/22/16 01:15 01:30 01:45 Temperature Pulse Rate 106 H 111 H 103 H Pulse Rate [ Anterior Bilateral Throughout] Pulse Rate [ From Monitor] Respiratory 20 25 H 17 Rate Respiratory Rate [Anterior Bilateral Throughout] Blood Pressure 130/64 135/61 124/60 O2 Sat by Pulse 97 97 98 Oximetry 12/22/16 12/22/16 12/22/16 01:46 02:00 02:01 Temperature Pulse Rate 105 H Pulse Rate [ 106 H 106 H Anterior Bilateral Throughout] Pulse Rate [ From Monitor] Respiratory 20 Rate Respiratory 20 20 Rate [Anterior Bilateral Throughout] Blood Pressure 117/59 O2 Sat by Pulse 98 Oximetry 12/22/16 12/22/16 12/22/16 02:15 02:30 02:45 Temperature Pulse Rate 101 H 101 H 100 H Pulse Rate [ Anterior Bilateral Throughout] Pulse Rate [ From Monitor] Respiratory 20 19 18 Rate Respiratory Rate [Anterior Bilateral Throughout] Blood Pressure 109/59 117/56 117/60 O2 Sat by Pulse 97 97 97 Oximetry 12/22/16 12/22/16 12/22/16 03:00 03:15 03:30 Temperature Pulse Rate 101 H 101 H 104 H Pulse Rate [ Anterior Bilateral Throughout] Pulse Rate [ From Monitor] Respiratory 19 17 19 Rate Respiratory Rate [Anterior Bilateral Throughout] Blood Pressure 118/57 114/59 130/62 O2 Sat by Pulse 97 97 97 Oximetry 12/22/16 12/22/16 12/22/16 03:45 04:00 04:15 Temperature 102.5 F H Pulse Rate 103 H 111 H 104 H Pulse Rate [ Anterior Bilateral Throughout] Pulse Rate [ 107 H From Monitor] Respiratory 18 20 19 Rate Respiratory Rate [Anterior Bilateral Throughout] Blood Pressure 126/61 136/60 138/65 O2 Sat by Pulse 97 97 97 Oximetry 12/22/16 12/22/16 12/22/16 04:30 04:45 05:00 Temperature Pulse Rate 104 H 104 H 107 H Pulse Rate [ Anterior Bilateral Throughout] Pulse Rate [ From Monitor] Respiratory 20 18 21 Rate Respiratory Rate [Anterior Bilateral Throughout] Blood Pressure 127/53 124/63 125/59 O2 Sat by Pulse 97 96 97 Oximetry 12/22/16 12/22/16 12/22/16 05:08 05:15 05:30 Temperature Pulse Rate 108 H 112 H 102 H Pulse Rate [ Anterior Bilateral Throughout] Pulse Rate [ From Monitor] Respiratory 17 17 Rate Respiratory Rate [Anterior Bilateral Throughout] Blood Pressure 126/77 127/67 110/53 O2 Sat by Pulse 96 97 96 Oximetry 12/22/16 12/22/16 12/22/16 05:45 06:00 06:15 Temperature Pulse Rate 100 H 102 H 102 H Pulse Rate [ Anterior Bilateral Throughout] Pulse Rate [ From Monitor] Respiratory 17 18 19 Rate Respiratory Rate [Anterior Bilateral Throughout] Blood Pressure 106/52 107/54 109/55 O2 Sat by Pulse 96 96 96 Oximetry 12/22/16 12/22/16 12/22/16 06:30 06:45 07:00 Temperature Pulse Rate 101 H 107 H 105 H Pulse Rate [ Anterior Bilateral Throughout] Pulse Rate [ From Monitor] Respiratory 17 21 20 Rate Respiratory Rate [Anterior Bilateral Throughout] Blood Pressure 112/55 122/63 129/57 O2 Sat by Pulse 96 97 96 Oximetry 12/22/16 12/22/16 12/22/16 07:16 07:30 07:46 Temperature Pulse Rate 101 H 106 H 103 H Pulse Rate [ Anterior Bilateral Throughout] Pulse Rate [ From Monitor] Respiratory 15 16 14 Rate Respiratory Rate [Anterior Bilateral Throughout] Blood Pressure 117/65 118/62 118/62 O2 Sat by Pulse 96 95 95 Oximetry 12/22/16 12/22/16 12/22/16 08:00 09:03 09:07 Temperature Pulse Rate 103 H 102 H Pulse Rate [ 102 H Anterior Bilateral Throughout] Pulse Rate [ From Monitor] Respiratory 16 Rate Respiratory 17 Rate [Anterior Bilateral Throughout] Blood Pressure 110/53 97/53 O2 Sat by Pulse 96 95 Oximetry 12/22/16 09:19 Temperature Pulse Rate Pulse Rate [ 103 H Anterior Bilateral Throughout] Pulse Rate [ From Monitor] Respiratory Rate Respiratory 22 Rate [Anterior Bilateral Throughout] Blood Pressure O2 Sat by Pulse Oximetry - Lab 12/22/16 04:00 12/22/16 04:00 Most recent lab results Calcium 6.3 mg/dL (8.4-10.2) L 12/22/16 04:00 Phosphorus 5.4 mg/dL (2.5-4.5) H D 12/18/16 18:21 Magnesium 2.5 mg/dL (1.7-2.3) H 12/17/16 09:10
[2016-12-22] MEDS ORDERED: NACL 0.9% 1000 ML 1,000 ML IV PRN (09:52)
[2016-12-22 09:58] LABS: Hematocrit 26.5 % (35.5-45.6); Hemoglobin 8.9 gm/dl (11.8-15.2)
[2016-12-22] MEDS: Centrum Liq PO SCH (10:01)
[2016-12-22] MEDS: BABY ASPIRIN PO SCH (10:01)
[2016-12-22] MEDS: ZYVOX 600MG/300ML 600 MG/300 ML BAG IV SCH ×2 (10:01→21:26)
[2016-12-22] MEDS: VITAMIN B-1 PO SCH (10:02)
[2016-12-22] MEDS: FOLVITE PO SCH (10:02)
[2016-12-22] MEDS: PROTONIX PO SCH (10:02)
[2016-12-22] MEDS: TYLENOL FEEDTUBE PRN ×2 (10:10→21:24)
--- NOTE | 2016-12-22 10:41 | Progress Note ---
Assessment and Plan Acute respiratory failure currently intubated Septic shock Pneumonia Altered mental status Acute renal failure initiated on HD this admission Chronic systolic heart failure Ischemic cardiomyopathy Echo this admission demonstrates left ventricular ejection fraction 35%. Hx of CAD [facility] 2013: patent mid LAD stent, patent diagonal branch stent, patent mid obtuse marginal stent. Nonobstructive disease of the RCA. EF 30-35%. Plan: Supportive cardiac management. Subjective Date of service: 12/22/16 Principal diagnosis: Acute hypoxemic respiratory failure, shock Interval history: Patient remains intubated on the vent. On Levophed. Patient with fever this morning. Objective Vital Signs Temp Pulse Pulse Pulse Resp Resp BP 12/22/16 10:00 101 H 17 105/51 12/22/16 09:46 103 H 17 100/49 12/22/16 09:30 100 H 17 100/49 12/22/16 09:19 103 H 22 12/22/16 09:16 99 H 16 108/54 12/22/16 09:07 102 H 17 12/22/16 09:03 102 H 97/53 12/22/16 09:00 103 H 14 108/54 12/22/16 08:46 102 H 17 97/53 12/22/16 08:30 100 H 13 97/53 12/22/16 08:16 105 H 13 110/53 12/22/16 08:00 102.6 F H 103 H 16 110/53 12/22/16 07:46 103 H 14 118/62 12/22/16 07:30 106 H 16 118/62 12/22/16 07:16 101 H 15 117/65 12/22/16 07:00 105 H 20 129/57 12/22/16 06:45 107 H 21 122/63 12/22/16 06:30 101 H 17 112/55 12/22/16 06:15 102 H 19 109/55 12/22/16 06:00 102 H 18 107/54 12/22/16 05:45 100 H 17 106/52 12/22/16 05:30 102 H 17 110/53 12/22/16 05:15 112 H 17 127/67 12/22/16 05:08 108 H 126/77 12/22/16 05:00 107 H 21 125/59 12/22/16 04:45 104 H 18 124/63 12/22/16 04:30 104 H 20 127/53 12/22/16 04:15 104 H 19 138/65 12/22/16 04:00 102.5 F H 111 H 107 H 20 136/60 12/22/16 03:45 103 H 18 126/61 12/22/16 03:30 104 H 19 130/62 12/22/16 03:15 101 H 17 114/59 12/22/16 03:00 101 H 19 118/57 12/22/16 02:45 100 H 18 117/60 12/22/16 02:30 101 H 19 117/56 12/22/16 02:15 101 H 20 109/59 12/22/16 02:01 106 H 20 12/22/16 02:00 105 H 20 117/59 12/22/16 01:46 106 H 20 12/22/16 01:45 103 H 17 124/60 12/22/16 01:30 111 H 25 H 135/61 12/22/16 01:15 106 H 20 130/64 12/22/16 01:00 111 H 22 121/58 12/22/16 00:45 102 H 20 116/60 12/22/16 00:30 106 H 19 123/60 12/22/16 00:15 103 H 18 120/59 12/22/16 00:01 98 H 104/72 12/22/16 00:00 101.3 F H 99 H 110 H 19 116/54 12/21/16 23:45 100 H 21 113/54 12/21/16 23:30 100 H 20 116/50 12/21/16 23:20 99 H 19 106/53 12/21/16 23:15 95 H 20 104/50 12/21/16 23:00 99 H 19 107/52 12/21/16 22:45 99 H 19 105/52 12/21/16 22:30 101 H 19 108/50 12/21/16 22:15 101 H 22 102/49 12/21/16 22:00 102 H 21 108/50 12/21/16 21:45 106 H 20 103/46 12/21/16 21:30 103 H 21 87/48 12/21/16 21:15 107 H 22 75/36 12/21/16 21:00 104 H 22 100/52 12/21/16 20:45 105 H 22 96/54 12/21/16 20:30 106 H 21 106/49 12/21/16 20:20 105 H 21 12/21/16 20:15 103 H 21 103/52 12/21/16 20:05 103 H 21 12/21/16 20:00 101.7 F H 104 H 102 H 21 111/50 12/21/16 19:57 106 H 103/70 12/21/16 19:45 106 H 22 106/49 12/21/16 19:30 106 H 22 101/47 12/21/16 19:15 106 H 22 102/50 12/21/16 19:00 108 H 22 101/47 12/21/16 18:45 108 H 23 102/47 12/21/16 18:30 103 H 22 99/47 12/21/16 18:15 106 H 23 107/49 12/21/16 18:10 111 H 103/46 12/21/16 18:00 107 H 23 103/46 12/21/16 17:45 108 H 23 94/46 12/21/16 17:30 109 H 24 90/43 12/21/16 17:15 113 H 27 H 93/41 12/21/16 17:00 116 H 24 108/48 12/21/16 16:46 125 H 31 H 127/55 12/21/16 16:30 118 H 28 H 119/54 12/21/16 16:15 121 H 30 H 115/54 12/21/16 16:00 102.8 F H 120 H 110 H 30 H 117/56 12/21/16 15:45 119 H 29 H 119/52 12/21/16 15:30 120 H 31 H 122/58 12/21/16 15:15 123 H 30 H 105/55 12/21/16 15:00 125 H 29 H 117/56 12/21/16 14:45 122 H 28 H 108/55 12/21/16 14:31 120 H 28 H 12/21/16 14:30 123 H 31 H 103/59 12/21/16 14:16 120 H 29 H 12/21/16 14:15 120 H 26 H 109/60 12/21/16 14:14 122 H 115/57 12/21/16 14:00 120 H 30 H 118/59 12/21/16 13:45 120 H 29 H 109/55 12/21/16 13:30 116 H 28 H 111/58 12/21/16 13:15 121 H 30 H 101/62 12/21/16 13:00 119 H 29 H 110/57 12/21/16 12:45 121 H 30 H 111/62 12/21/16 12:30 119 H 29 H 108/59 12/21/16 12:15 120 H 29 H 110/62 12/21/16 12:00 102.6 F H 119 H 122 H 28 H 101/57 12/21/16 11:45 121 H 29 H 98/59 12/21/16 11:32 119 H 113/59 12/21/16 11:30 120 H 29 H 97/57 12/21/16 11:15 123 H 34 H 109/59 12/21/16 11:00 120 H 36 H 120/69 12/21/16 10:45 120 H 37 H 125/70 Pulse Ox 12/22/16 10:00 96 12/22/16 09:46 96 12/22/16 09:30 95 12/22/16 09:19 12/22/16 09:16 95 12/22/16 09:07 12/22/16 09:03 95 12/22/16 09:00 96 12/22/16 08:46 95 12/22/16 08:30 96 12/22/16 08:16 96 12/22/16 08:00 96 12/22/16 07:46 95 12/22/16 07:30 95 12/22/16 07:16 96 12/22/16 07:00 96 12/22/16 06:45 97 12/22/16 06:30 96 12/22/16 06:15 96 12/22/16 06:00 96 12/22/16 05:45 96 12/22/16 05:30 96 12/22/16 05:15 97 12/22/16 05:08 96 12/22/16 05:00 97 12/22/16 04:45 96 12/22/16 04:30 97 12/22/16 04:15 97 12/22/16 04:00 97 12/22/16 03:45 97 12/22/16 03:30 97 12/22/16 03:15 97 12/22/16 03:00 97 12/22/16 02:45 97 12/22/16 02:30 97 12/22/16 02:15 97 12/22/16 02:01 12/22/16 02:00 98 12/22/16 01:46 12/22/16 01:45 98 12/22/16 01:30 97 12/22/16 01:15 97 12/22/16 01:00 97 12/22/16 00:45 97 12/22/16 00:30 97 12/22/16 00:15 97 12/22/16 00:01 98 12/22/16 00:00 97 12/21/16 23:45 97 12/21/16 23:30 97 12/21/16 23:20 97 12/21/16 23:15 98 12/21/16 23:00 98 12/21/16 22:45 98 12/21/16 22:30 98 12/21/16 22:15 98 12/21/16 22:00 98 12/21/16 21:45 98 12/21/16 21:30 98 12/21/16 21:15 99 12/21/16 21:00 98 12/21/16 20:45 98 12/21/16 20:30 98 12/21/16 20:20 12/21/16 20:15 99 12/21/16 20:05 12/21/16 20:00 99 12/21/16 19:57 98 12/21/16 19:45 98 12/21/16 19:30 98 12/21/16 19:15 98 12/21/16 19:00 98 12/21/16 18:45 98 12/21/16 18:30 98 12/21/16 18:15 98 12/21/16 18:10 98 12/21/16 18:00 98 12/21/16 17:45 98 12/21/16 17:30 99 12/21/16 17:15 98 12/21/16 17:00 98 12/21/16 16:46 95 12/21/16 16:30 96 12/21/16 16:15 96 12/21/16 16:00 95 12/21/16 15:45 96 12/21/16 15:30 95 12/21/16 15:15 94 12/21/16 15:00 95 12/21/16 14:45 95 12/21/16 14:31 12/21/16 14:30 97 12/21/16 14:16 12/21/16 14:15 99 12/21/16 14:14 97 12/21/16 14:00 97 12/21/16 13:45 98 12/21/16 13:30 97 12/21/16 13:15 98 12/21/16 13:00 98 12/21/16 12:45 97 12/21/16 12:30 97 12/21/16 12:15 97 12/21/16 12:00 97 12/21/16 11:45 97 12/21/16 11:32 96 12/21/16 11:30 97 12/21/16 11:15 12/21/16 11:00 76 L 12/21/16 10:45 92 - Physical Examination General: Other (intubated on mechanical ventilator) Cardiac: Positive: Reg Rate and Rhythm - Labs and Meds CBC 12/21/16 12/22/16 12/22/16 Range/Units 09:35 04:00 09:34 WBC 11.8 H 12.0 H (4.5-11.0) K/mm3 RBC 3.52 L 2.93 L (3.65-5.03) M/mm3 Hgb 10.8 L 8.9 L 8.9 L (11.8-15.2) gm/dl Hct 31.3 L 26.1 L 26.5 L (35.5-45.6) % Plt Count 130 L 103 L 96 L (140-440) K/mm3 Comprehensive Metabolic Panel 12/21/16 12/22/16 Range/Units 09:35 04:00 Sodium 138 (137-145) mmol/L Potassium 4.5 (3.6-5.0) mmol/L Chloride 97.0 L (98-107) mmol/L Carbon Dioxide 21 L 20 L (22-30) mmol/L BUN 98 H 119 H (9-20) mg/dL Creatinine 6.2 H 6.9 H (0.8-1.5) mg/dL Glucose 133 H 143 H (75-100) mg/dL Calcium 6.7 L 6.3 L (8.4-10.2) mg/dL - Allied health notes Allied health notes reviewed: RT
[2016-12-22] MEDS: NovoLIN R 100 UNITS in NACL 0.9% 99 ML IV SCH (12:35)
[2016-12-22] MEDS: HEPARIN IV PRN (12:36)
[2016-12-22] MEDS: PROCRIT IV PRN (12:37)
--- NOTE | 2016-12-22 13:32 | Progress Note ---
Assessment and Plan - Patient Problems (1) Acute hypoxemic respiratory failure Current Visit: Yes Status: Acute Plan to address problem: - remains intubated - continue aspiration precautions - continue bronchodilators and pulmonary toilet - continue to wean FiO2 for sats > 94% - reduced set rate to 16/min - will begin PSV trials in am if tolerates bedside SBT (failed today) - adjust sedation to control tachypnea prn (2) Altered mental status Current Visit: Yes Status: Acute Qualifiers: Altered mental status type: A Coma depth: C Coma timing: C Plan to address problem: - seen by neurology - prn sedation / benzo's - multi-factorial really including azotemia - will follow neurology recommendations - overall improved (3) Septic shock Current Visit: Yes Status: Acute Plan to address problem: - continue AB's per ID recs - r/o VTE re: fevers (dopplers negative but may benefit from CTA once more stable) - continue to wean vasopressors for MAP > 60-65mmHg - IVF per nephrology at this point (4) Diabetes Current Visit: No Status: Chronic Qualifiers: Diabetes mellitus type: D Diabetes mellitus complication status: D Diabetes mellitus complication detail: D Diabetic retinopathy severity: D Proliferative retinopathy type: P Diabetes mellitus macular edema: D Diabetes mellitus correction insulin use: D Laterality: L Chronic kidney disease stage: C Plan to address problem: - continue IV insulin therapy for strict glycemic control (5) BRITTANY (acute kidney injury) Current Visit: Yes Status: Deleted Plan to address problem: - nephrology on case - s/p vas-cath - HD/UF per nephrology recs (6) Subclavian artery injury Current Visit: Yes Status: Acute Qualifiers: Encounter type: E Laterality: L Plan to address problem: - seen by vascular team - phased extraction approach which may involve trip to label designer or O.R. - H&H holding (7) Discharge planning issues Current Visit: Yes Status: Acute Plan to address problem: - LTAC evaluation on hold for now - suspect he will need a tracheostomy especially re: initial failed extubation ...he is critically ill on life sustaining interventions including MVS & vasopressors and at high risk for further deterioration including ...31' CCT Subjective Date of service: 12/22/16 Principal diagnosis: Acute hypoxemic respiratory failure, shock Interval history: Seen and examined at bedside; 24 hour events reviewed; nursing and respiratory care staff consulted; no adverse overnight events reported to me; remains on MVS ; still requiring dialysis; did not tolerate bedside SBT well Objective Vital Signs - 12hr 12/22/16 12/22/16 12/22/16 01:45 01:46 02:00 Temperature Pulse Rate 103 H 105 H Pulse Rate [ 106 H Anterior Bilateral Throughout] Pulse Rate [ From Monitor] Respiratory 17 20 Rate Respiratory 20 Rate [Anterior Bilateral Throughout] Blood Pressure 124/60 117/59 O2 Sat by Pulse 98 98 Oximetry 12/22/16 12/22/16 12/22/16 02:01 02:15 02:30 Temperature Pulse Rate 101 H 101 H Pulse Rate [ 106 H Anterior Bilateral Throughout] Pulse Rate [ From Monitor] Respiratory 20 19 Rate Respiratory 20 Rate [Anterior Bilateral Throughout] Blood Pressure 109/59 117/56 O2 Sat by Pulse 97 97 Oximetry 12/22/16 12/22/16 12/22/16 02:45 03:00 03:15 Temperature Pulse Rate 100 H 101 H 101 H Pulse Rate [ Anterior Bilateral Throughout] Pulse Rate [ From Monitor] Respiratory 18 19 17 Rate Respiratory Rate [Anterior Bilateral Throughout] Blood Pressure 117/60 118/57 114/59 O2 Sat by Pulse 97 97 97 Oximetry 12/22/16 12/22/16 12/22/16 03:30 03:45 04:00 Temperature 102.5 F H Pulse Rate 104 H 103 H 111 H Pulse Rate [ Anterior Bilateral Throughout] Pulse Rate [ 107 H From Monitor] Respiratory 19 18 20 Rate Respiratory Rate [Anterior Bilateral Throughout] Blood Pressure 130/62 126/61 136/60 O2 Sat by Pulse 97 97 97 Oximetry 12/22/16 12/22/16 12/22/16 04:15 04:30 04:45 Temperature Pulse Rate 104 H 104 H 104 H Pulse Rate [ Anterior Bilateral Throughout] Pulse Rate [ From Monitor] Respiratory 19 20 18 Rate Respiratory Rate [Anterior Bilateral Throughout] Blood Pressure 138/65 127/53 124/63 O2 Sat by Pulse 97 97 96 Oximetry 12/22/16 12/22/16 12/22/16 05:00 05:08 05:15 Temperature Pulse Rate 107 H 108 H 112 H Pulse Rate [ Anterior Bilateral Throughout] Pulse Rate [ From Monitor] Respiratory 21 17 Rate Respiratory Rate [Anterior Bilateral Throughout] Blood Pressure 125/59 126/77 127/67 O2 Sat by Pulse 97 96 97 Oximetry 12/22/16 12/22/16 12/22/16 05:30 05:45 06:00 Temperature Pulse Rate 102 H 100 H 102 H Pulse Rate [ Anterior Bilateral Throughout] Pulse Rate [ From Monitor] Respiratory 17 17 18 Rate Respiratory Rate [Anterior Bilateral Throughout] Blood Pressure 110/53 106/52 107/54 O2 Sat by Pulse 96 96 96 Oximetry 12/22/16 12/22/16 12/22/16 06:15 06:30 06:45 Temperature Pulse Rate 102 H 101 H 107 H Pulse Rate [ Anterior Bilateral Throughout] Pulse Rate [ From Monitor] Respiratory 19 17 21 Rate Respiratory Rate [Anterior Bilateral Throughout] Blood Pressure 109/55 112/55 122/63 O2 Sat by Pulse 96 96 97 Oximetry 12/22/16 12/22/16 12/22/16 07:00 07:16 07:30 Temperature Pulse Rate 105 H 101 H 106 H Pulse Rate [ Anterior Bilateral Throughout] Pulse Rate [ From Monitor] Respiratory 20 15 16 Rate Respiratory Rate [Anterior Bilateral Throughout] Blood Pressure 129/57 117/65 118/62 O2 Sat by Pulse 96 96 95 Oximetry 12/22/16 12/22/16 12/22/16 07:46 08:00 08:16 Temperature 102.6 F H Pulse Rate 103 H 103 H 105 H Pulse Rate [ Anterior Bilateral Throughout] Pulse Rate [ 102 H From Monitor] Respiratory 14 26 H 13 Rate Respiratory Rate [Anterior Bilateral Throughout] Blood Pressure 118/62 110/53 110/53 O2 Sat by Pulse 95 96 96 Oximetry 12/22/16 12/22/16 12/22/16 08:30 08:46 09:00 Temperature Pulse Rate 100 H 102 H 103 H Pulse Rate [ Anterior Bilateral Throughout] Pulse Rate [ From Monitor] Respiratory 13 17 14 Rate Respiratory Rate [Anterior Bilateral Throughout] Blood Pressure 97/53 97/53 108/54 O2 Sat by Pulse 96 95 96 Oximetry 12/22/16 12/22/16 12/22/16 09:03 09:07 09:16 Temperature Pulse Rate 102 H 99 H Pulse Rate [ 102 H Anterior Bilateral Throughout] Pulse Rate [ From Monitor] Respiratory 16 Rate Respiratory 17 Rate [Anterior Bilateral Throughout] Blood Pressure 97/53 108/54 O2 Sat by Pulse 95 95 Oximetry 12/22/16 12/22/16 12/22/16 09:19 09:30 09:46 Temperature Pulse Rate 100 H 103 H Pulse Rate [ 103 H Anterior Bilateral Throughout] Pulse Rate [ From Monitor] Respiratory 17 17 Rate Respiratory 22 Rate [Anterior Bilateral Throughout] Blood Pressure 100/49 100/49 O2 Sat by Pulse 95 96 Oximetry 12/22/16 12/22/16 12/22/16 10:00 10:16 10:30 Temperature 102.6 F H Pulse Rate 106 H 106 H 103 H Pulse Rate [ Anterior Bilateral Throughout] Pulse Rate [ From Monitor] Respiratory 17 20 17 Rate Respiratory Rate [Anterior Bilateral Throughout] Blood Pressure 105/51 105/51 102/52 O2 Sat by Pulse 96 96 96 Oximetry 12/22/16 12/22/16 12/22/16 10:45 10:46 11:00 Temperature Pulse Rate 105 H 108 H 105 H Pulse Rate [ Anterior Bilateral Throughout] Pulse Rate [ From Monitor] Respiratory 17 14 Rate Respiratory Rate [Anterior Bilateral Throughout] Blood Pressure 107/66 102/52 99/51 O2 Sat by Pulse 96 96 Oximetry 12/22/16 12/22/16 12/22/16 11:15 11:16 11:30 Temperature Pulse Rate 103 H 103 H 108 H Pulse Rate [ Anterior Bilateral Throughout] Pulse Rate [ From Monitor] Respiratory 15 16 Rate Respiratory Rate [Anterior Bilateral Throughout] Blood Pressure 99/51 99/51 87/56 O2 Sat by Pulse 96 95 95 Oximetry 12/22/16 12/22/16 12/22/16 11:45 11:46 12:00 Temperature 99.7 F H Pulse Rate 102 H 104 H 102 H Pulse Rate [ Anterior Bilateral Throughout] Pulse Rate [ From Monitor] Respiratory 16 16 Rate Respiratory Rate [Anterior Bilateral Throughout] Blood Pressure 100/56 87/56 90/51 O2 Sat by Pulse 96 96 Oximetry 12/22/16 12/22/16 12/22/16 12:15 12:16 12:30 Temperature Pulse Rate 102 H 110 H 101 H Pulse Rate [ Anterior Bilateral Throughout] Pulse Rate [ From Monitor] Respiratory 16 Rate Respiratory Rate [Anterior Bilateral Throughout] Blood Pressure 95/65 90/51 104/72 O2 Sat by Pulse 95 Oximetry 12/22/16 12/22/16 12/22/16 12:45 13:00 13:15 Temperature Pulse Rate 98 H 104 H 104 H Pulse Rate [ Anterior Bilateral Throughout] Pulse Rate [ From Monitor] Respiratory Rate Respiratory Rate [Anterior Bilateral Throughout] Blood Pressure 102/72 111/68 112/76 O2 Sat by Pulse Oximetry Constitutional: other (sedated) Eyes: non-icteric ENT: oropharynx moist Neck: supple, no lymphadenopathy, no JVD Effort: mildly labored Ascultation: Bilateral: diminished breath sounds, rales (basilar and scant) Cardiovascular: regular rate and rhythm Gastrointestinal: normoactive bowel sounds, hypoactive bowel sounds, soft, non- tender, non-distended Integumentary: normal Extremities: no cyanosis, pink and warm, pulses normal, no ischemia or petechiae Neurologic: non-focal exam (grossly), pupils equal and round, unable to assess Psychiatric: other (sedated) CBC and BMP: 12/24/16 04:50 12/24/16 04:50 ABG, PT/INR, D-dimer: ABG POC ABG pH 7.356 (7.35-7.45) 12/22/16 05:22 POC ABG pCO2 34.7 (35-45) L 12/22/16 05:22 POC ABG pO2 103 (80-105) 12/22/16 05:22 POC ABG HCO3 19.5 12/22/16 05:22 POC ABG Total CO2 21 12/22/16 05:22 POC ABG O2 Sat 98 12/22/16 05:22 PT/INR, D-dimer PT 18.8 Sec. (12.2-14.9) H 12/18/16 16:55 INR 1.58 (0.87-1.13) H 12/18/16 16:55 D-Dimer 586.01 ng/mlDDU (0-234) H 12/14/16 18:03 Abnormal lab findings: Abnormal Labs 12/07/16 12/07/16 12/07/16 00:35 05:30 05:30 WBC RBC Hgb Hct MCV MCHC RDW 13.0 L Plt Count 93 L Lymph % (Auto) Parker % (Auto) 11.2 H Parker # 1.1 H Baso # Seg Neutrophils % 71.3 H Seg Neutrophils # PT INR D-Dimer POC ABG pH POC ABG pCO2 POC ABG pO2 Sodium Potassium Chloride Carbon Dioxide BUN Creatinine 0.6 L Glucose 168 H POC Glucose Lactic Acid Calcium 7.8 L Phosphorus Magnesium Direct Bilirubin 0.7 H AST ALT Alkaline Phosphatase Total Creatine Kinase 343 H C-Reactive Protein Total Protein Albumin 2.6 L TSH Vancomycin Trough 12/07/16 12/07/16 12/07/16 06:58 16:41 18:30 WBC RBC Hgb Hct MCV MCHC RDW Plt Count Lymph % (Auto) Parker % (Auto) Parker # Baso # Seg Neutrophils % Seg Neutrophils # PT INR D-Dimer POC ABG pH POC ABG pCO2 POC ABG pO2 Sodium Potassium Chloride Carbon Dioxide BUN Creatinine Glucose POC Glucose 175 H Lactic Acid Calcium Phosphorus Magnesium Direct Bilirubin AST ALT Alkaline Phosphatase Total Creatine Kinase 242 H C-Reactive Protein 7.70 H Total Protein Albumin TSH Vancomycin Trough 12/09/16 12/10/16 12/10/16 11:58 06:05 12:24 WBC RBC Hgb Hct MCV MCHC RDW Plt Count Lymph % (Auto) Parker % (Auto) Parker # Baso # Seg Neutrophils % Seg Neutrophils # PT INR D-Dimer POC ABG pH 7.485 H POC ABG pCO2 POC ABG pO2 Sodium Potassium Chloride Carbon Dioxide BUN Creatinine Glucose POC Glucose 141 H 183 H Lactic Acid Calcium Phosphorus Magnesium Direct Bilirubin AST ALT Alkaline Phosphatase Total Creatine Kinase C-Reactive Protein Total Protein Albumin TSH Vancomycin Trough 12/10/16 12/10/16 12/11/16 17:47 23:21 06:10 WBC RBC Hgb Hct MCV MCHC RDW Plt Count Lymph % (Auto) Parker % (Auto) Parker # Baso # Seg Neutrophils % Seg Neutrophils # PT INR D-Dimer POC ABG pH POC ABG pCO2 POC ABG pO2 Sodium Potassium Chloride Carbon Dioxide BUN Creatinine Glucose POC Glucose 176 H 240 H 252 H Lactic Acid Calcium Phosphorus Magnesium Direct Bilirubin AST ALT Alkaline Phosphatase Total Creatine Kinase C-Reactive Protein Total Protein Albumin TSH Vancomycin Trough 12/11/16 12/11/16 12/11/16 08:29 09:14 11:37 WBC RBC Hgb Hct MCV MCHC RDW 13.1 L Plt Count Lymph % (Auto) Parker % (Auto) Parker # Baso # Seg Neutrophils % Seg Neutrophils # PT INR D-Dimer POC ABG pH POC ABG pCO2 POC ABG pO2 Sodium Potassium Chloride Carbon Dioxide BUN Creatinine Glucose POC Glucose 253 H 284 H Lactic Acid Calcium Phosphorus Magnesium Direct Bilirubin AST ALT Alkaline Phosphatase Total Creatine Kinase C-Reactive Protein Total Protein Albumin TSH Vancomycin Trough 12/11/16 12/11/16 12/11/16 16:12 17:54 23:35 WBC RBC Hgb Hct MCV MCHC RDW Plt Count Lymph % (Auto) Parker % (Auto) Parker # Baso # Seg Neutrophils % Seg Neutrophils # PT INR D-Dimer POC ABG pH POC ABG pCO2 POC ABG pO2 Sodium Potassium Chloride Carbon Dioxide BUN 37 H Creatinine Glucose 258 H POC Glucose 227 H 264 H Lactic Acid Calcium 8.3 L Phosphorus Magnesium Direct Bilirubin AST ALT Alkaline Phosphatase Total Creatine Kinase C-Reactive Protein Total Protein Albumin 2.6 L TSH Vancomycin Trough 12/12/16 12/12/16 12/12/16 04:37 06:06 10:12 WBC RBC Hgb Hct MCV MCHC RDW Plt Count Lymph % (Auto) Parker % (Auto) Parker # Baso # Seg Neutrophils % Seg Neutrophils # PT INR D-Dimer POC ABG pH 7.500 H POC ABG pCO2 POC ABG pO2 69 L Sodium Potassium Chloride Carbon Dioxide BUN Creatinine Glucose POC Glucose 288 H Lactic Acid Calcium Phosphorus Magnesium Direct Bilirubin AST ALT Alkaline Phosphatase Total Creatine Kinase C-Reactive Protein Total Protein Albumin TSH Vancomycin Trough 12/12/16 12/12/16 12/12/16 13:08 17:46 23:31 WBC RBC Hgb Hct MCV MCHC RDW Plt Count Lymph % (Auto) Parker % (Auto) Parker # Baso # Seg Neutrophils % Seg Neutrophils # PT INR D-Dimer POC ABG pH POC ABG pCO2 POC ABG pO2 Sodium Potassium Chloride Carbon Dioxide BUN Creatinine Glucose POC Glucose 215 H 234 H 241 H Lactic Acid Calcium Phosphorus Magnesium Direct Bilirubin AST ALT Alkaline Phosphatase Total Creatine Kinase C-Reactive Protein Total Protein Albumin TSH Vancomycin Trough 12/13/16 12/13/16 12/13/16 05:38 11:44 17:32 WBC RBC Hgb Hct MCV MCHC RDW Plt Count Lymph % (Auto) Parker % (Auto) Parker # Baso # Seg Neutrophils % Seg Neutrophils # PT INR D-Dimer POC ABG pH POC ABG pCO2 POC ABG pO2 Sodium Potassium Chloride Carbon Dioxide BUN Creatinine Glucose POC Glucose 215 H 237 H 215 H Lactic Acid Calcium Phosphorus Magnesium Direct Bilirubin AST ALT Alkaline Phosphatase Total Creatine Kinase C-Reactive Protein Total Protein Albumin TSH Vancomycin Trough 12/14/16 12/14/16 12/14/16 00:22 05:40 12:03 WBC RBC Hgb Hct MCV MCHC RDW Plt Count Lymph % (Auto) Parker % (Auto) Parker # Baso # Seg Neutrophils % Seg Neutrophils # PT INR D-Dimer POC ABG pH POC ABG pCO2 POC ABG pO2 Sodium Potassium Chloride Carbon Dioxide BUN Creatinine Glucose POC Glucose 268 H 301 H 312 H Lactic Acid Calcium Phosphorus Magnesium Direct Bilirubin AST ALT Alkaline Phosphatase Total Creatine Kinase C-Reactive Protein Total Protein Albumin TSH Vancomycin Trough 12/14/16 12/14/16 12/14/16 18:03 18:03 18:03 WBC RBC Hgb Hct MCV MCHC RDW 12.9 L Plt Count Lymph % (Auto) Parker % (Auto) 8.0 H Parker # Baso # Seg Neutrophils % 72.4 H Seg Neutrophils # PT INR D-Dimer 586.01 H POC ABG pH POC ABG pCO2 POC ABG pO2 Sodium 150 H Potassium Chloride 109.1 H Carbon Dioxide BUN 50 H Creatinine Glucose 261 H POC Glucose Lactic Acid Calcium Phosphorus Magnesium Direct Bilirubin AST ALT Alkaline Phosphatase Total Creatine Kinase C-Reactive Protein Total Protein Albumin TSH Vancomycin Trough 12/14/16 12/14/16 12/14/16 18:30 21:55 23:59 WBC RBC Hgb Hct MCV MCHC RDW Plt Count Lymph % (Auto) Parker % (Auto) Parker # Baso # Seg Neutrophils % Seg Neutrophils # PT INR D-Dimer POC ABG pH POC ABG pCO2 POC ABG pO2 Sodium Potassium Chloride Carbon Dioxide BUN Creatinine Glucose POC Glucose 321 H 258 H 262 H Lactic Acid Calcium Phosphorus Magnesium Direct Bilirubin AST ALT Alkaline Phosphatase Total Creatine Kinase C-Reactive Protein Total Protein Albumin TSH Vancomycin Trough 12/15/16 12/15/16 12/15/16 05:28 06:04 09:15 WBC RBC Hgb Hct MCV MCHC RDW Plt Count Lymph % (Auto) Parker % (Auto) Parker # Baso # Seg Neutrophils % Seg Neutrophils # PT INR D-Dimer POC ABG pH POC ABG pCO2 POC ABG pO2 Sodium Potassium Chloride Carbon Dioxide BUN Creatinine Glucose POC Glucose 274 H 276 H Lactic Acid Calcium Phosphorus Magnesium Direct Bilirubin AST ALT Alkaline Phosphatase Total Creatine Kinase C-Reactive Protein Total Protein Albumin TSH 0.220 L Vancomycin Trough 12/15/16 12/15/16 12/15/16 11:59 13:40 18:06 WBC RBC Hgb Hct MCV MCHC RDW Plt Count Lymph % (Auto) Parker % (Auto) Parker # Baso # Seg Neutrophils % Seg Neutrophils # PT INR D-Dimer POC ABG pH POC ABG pCO2 33.3 L POC ABG pO2 70 L Sodium Potassium Chloride Carbon Dioxide BUN Creatinine Glucose POC Glucose 273 H Lactic Acid Calcium Phosphorus Magnesium Direct Bilirubin AST ALT Alkaline Phosphatase Total Creatine Kinase C-Reactive Protein Total Protein Albumin TSH 0.204 L Vancomycin Trough 12/15/16 12/15/16 12/16/16 18:14 21:26 02:08 WBC RBC Hgb Hct MCV MCHC RDW Plt Count Lymph % (Auto) Parker % (Auto) Parker # Baso # Seg Neutrophils % Seg Neutrophils # PT INR D-Dimer POC ABG pH 7.341 L POC ABG pCO2 POC ABG pO2 223 H Sodium Potassium Chloride Carbon Dioxide BUN Creatinine Glucose POC Glucose 234 H 371 H Lactic Acid Calcium Phosphorus Magnesium Direct Bilirubin AST ALT Alkaline Phosphatase Total Creatine Kinase C-Reactive Protein Total Protein Albumin TSH Vancomycin Trough 12/16/16 12/16/16 12/16/16 05:12 05:18 09:40 WBC RBC Hgb Hct MCV MCHC RDW Plt Count Lymph % (Auto) Parker % (Auto) Parker # Baso # Seg Neutrophils % Seg Neutrophils # PT INR D-Dimer POC ABG pH POC ABG pCO2 32.5 L POC ABG pO2 Sodium 154 H Potassium Chloride 116.8 H Carbon Dioxide 18 L D BUN 92 H Creatinine 3.0 H D Glucose 364 H POC Glucose 357 H Lactic Acid Calcium 8.2 L Phosphorus Magnesium Direct Bilirubin AST ALT Alkaline Phosphatase Total Creatine Kinase C-Reactive Protein Total Protein Albumin TSH Vancomycin Trough 12/16/16 12/16/16 12/16/16 13:40 18:27 18:34 WBC RBC Hgb Hct MCV MCHC RDW Plt Count Lymph % (Auto) Parker % (Auto) Parker # Baso # Seg Neutrophils % Seg Neutrophils # PT INR D-Dimer POC ABG pH POC ABG pCO2 POC ABG pO2 Sodium Potassium Chloride Carbon Dioxide BUN Creatinine Glucose POC Glucose 391 H 472 H Lactic Acid Calcium Phosphorus Magnesium Direct Bilirubin AST ALT Alkaline Phosphatase Total Creatine Kinase C-Reactive Protein Total Protein Albumin TSH Vancomycin Trough 33.7 H 12/17/16 12/17/16 12/17/16 00:38 01:54 05:53 WBC RBC Hgb Hct MCV MCHC RDW Plt Count Lymph % (Auto) Parker % (Auto) Parker # Baso # Seg Neutrophils % Seg Neutrophils # PT INR D-Dimer POC ABG pH 7.234 L POC ABG pCO2 34.5 L POC ABG pO2 50 L Sodium Potassium Chloride Carbon Dioxide BUN Creatinine Glucose POC Glucose 386 H 400 H Lactic Acid Calcium Phosphorus Magnesium Direct Bilirubin AST ALT Alkaline Phosphatase Total Creatine Kinase C-Reactive Protein Total Protein Albumin TSH Vancomycin Trough 12/17/16 12/17/16 12/17/16 06:45 06:45 07:45 WBC 12.3 H RBC Hgb 11.7 L Hct MCV 97 H D MCHC 31 L RDW Plt Count Lymph % (Auto) Parker % (Auto) 14.4 H Parker # 1.8 H Baso # 0.2 H Seg Neutrophils % Seg Neutrophils # 8.2 H PT INR D-Dimer POC ABG pH POC ABG pCO2 POC ABG pO2 Sodium Potassium 7.6 H* D Chloride 110.8 H Carbon Dioxide 14 L BUN 121 H Creatinine 5.4 H D Glucose 566 H* POC Glucose > 500 H Lactic Acid Calcium 6.2 L D Phosphorus Magnesium Direct Bilirubin AST 323 H ALT Alkaline Phosphatase 27 L Total Creatine Kinase C-Reactive Protein Total Protein Albumin 2.3 L TSH Vancomycin Trough 12/17/16 12/17/16 12/17/16 08:51 09:10 09:11 WBC RBC Hgb Hct MCV MCHC RDW Plt Count Lymph % (Auto) Parker % (Auto) Parker # Baso # Seg Neutrophils % Seg Neutrophils # PT INR D-Dimer POC ABG pH 7.113 L POC ABG pCO2 46.1 H POC ABG pO2 186 H Sodium Potassium Chloride Carbon Dioxide BUN Creatinine Glucose POC Glucose > 500 H Lactic Acid Calcium Phosphorus 9.5 H Magnesium 2.5 H Direct Bilirubin AST ALT Alkaline Phosphatase Total Creatine Kinase C-Reactive Protein Total Protein Albumin TSH Vancomycin Trough 12/17/16 12/17/16 12/17/16 10:18 10:50 11:17 WBC RBC Hgb Hct MCV MCHC RDW Plt Count Lymph % (Auto) Parker % (Auto) Parker # Baso # Seg Neutrophils % Seg Neutrophils # PT INR D-Dimer POC ABG pH POC ABG pCO2 POC ABG pO2 Sodium Potassium 6.1 H* Chloride 110.1 H Carbon Dioxide 14 L BUN 128 H Creatinine 5.5 H Glucose 580 H* POC Glucose > 500 H > 500 H Lactic Acid Calcium Phosphorus Magnesium Direct Bilirubin AST ALT Alkaline Phosphatase Total Creatine Kinase C-Reactive Protein Total Protein Albumin TSH Vancomycin Trough 12/17/16 12/17/16 12/17/16 12:09 12:30 13:36 WBC RBC Hgb Hct MCV MCHC RDW Plt Count Lymph % (Auto) Parker % (Auto) Parker # Baso # Seg Neutrophils % Seg Neutrophils # PT INR D-Dimer POC ABG pH POC ABG pCO2 POC ABG pO2 Sodium Potassium 5.6 H Chloride 110.4 H Carbon Dioxide 14 L BUN 138 H Creatinine 5.3 H Glucose 528 H* POC Glucose 428 H 426 H Lactic Acid Calcium 6.8 L D Phosphorus Magnesium Direct Bilirubin AST ALT Alkaline Phosphatase Total Creatine Kinase C-Reactive Protein Total Protein Albumin TSH Vancomycin Trough 12/17/16 12/17/16 12/17/16 14:11 14:25 14:45 WBC RBC Hgb Hct MCV MCHC RDW Plt Count Lymph % (Auto) Parker % (Auto) Parker # Baso # Seg Neutrophils % Seg Neutrophils # PT INR D-Dimer POC ABG pH 7.297 L POC ABG pCO2 34.2 L POC ABG pO2 114 H Sodium 146 H Potassium 5.3 H Chloride 109.3 H Carbon Dioxide 15 L BUN 128 H Creatinine 5.5 H Glucose 426 H POC Glucose 422 H Lactic Acid Calcium 6.7 L Phosphorus Magnesium Direct Bilirubin AST ALT Alkaline Phosphatase Total Creatine Kinase C-Reactive Protein Total Protein Albumin TSH Vancomycin Trough 12/17/16 12/17/16 12/17/16 15:07 16:03 16:56 WBC RBC Hgb Hct MCV MCHC RDW Plt Count Lymph % (Auto) Parker % (Auto) Parker # Baso # Seg Neutrophils % Seg Neutrophils # PT INR D-Dimer POC ABG pH POC ABG pCO2 POC ABG pO2 Sodium Potassium Chloride Carbon Dioxide BUN Creatinine Glucose POC Glucose 392 H 450 H 352 H Lactic Acid Calcium Phosphorus Magnesium Direct Bilirubin AST ALT Alkaline Phosphatase Total Creatine Kinase C-Reactive Protein Total Protein Albumin TSH Vancomycin Trough 12/17/16 12/17/16 12/17/16 18:00 18:10 18:38 WBC RBC Hgb Hct MCV MCHC RDW Plt Count Lymph % (Auto) Parker % (Auto) Parker # Baso # Seg Neutrophils % Seg Neutrophils # PT INR D-Dimer POC ABG pH POC ABG pCO2 POC ABG pO2 Sodium 147 H Potassium Chloride 109.7 H Carbon Dioxide 15 L BUN 140 H Creatinine 5.2 H Glucose 301 H POC Glucose 318 H 256 H Lactic Acid Calcium 6.5 L Phosphorus Magnesium Direct Bilirubin AST ALT Alkaline Phosphatase Total Creatine Kinase C-Reactive Protein Total Protein Albumin TSH Vancomycin Trough 12/17/16 12/17/16 12/17/16 19:31 20:00 20:44 WBC RBC Hgb Hct MCV MCHC RDW Plt Count Lymph % (Auto) Parker % (Auto) Parker # Baso # Seg Neutrophils % Seg Neutrophils # PT 17.7 H INR 1.46 H D-Dimer POC ABG pH POC ABG pCO2 30.5 L POC ABG pO2 134 H Sodium Potassium Chloride Carbon Dioxide BUN Creatinine Glucose POC Glucose 189 H Lactic Acid Calcium Phosphorus Magnesium Direct Bilirubin AST ALT Alkaline Phosphatase Total Creatine Kinase C-Reactive Protein Total Protein Albumin TSH Vancomycin Trough 12/17/16 12/17/16 12/18/16 21:59 23:18 00:15 WBC RBC Hgb Hct MCV MCHC RDW Plt Count Lymph % (Auto) Parker % (Auto) Parker # Baso # Seg Neutrophils % Seg Neutrophils # PT INR D-Dimer POC ABG pH POC ABG pCO2 POC ABG pO2 Sodium 147 H Potassium 5.2 H Chloride 107.9 H Carbon Dioxide 18 L BUN 143 H Creatinine 5.6 H Glucose 152 H POC Glucose 191 H 132 H Lactic Acid Calcium 6.3 L Phosphorus Magnesium Direct Bilirubin AST ALT Alkaline Phosphatase Total Creatine Kinase C-Reactive Protein Total Protein Albumin TSH Vancomycin Trough 12/18/16 12/18/16 12/18/16 00:18 01:08 02:35 WBC RBC Hgb Hct MCV MCHC RDW Plt Count Lymph % (Auto) Parker % (Auto) Parker # Baso # Seg Neutrophils % Seg Neutrophils # PT INR D-Dimer POC ABG pH POC ABG pCO2 POC ABG pO2 Sodium Potassium Chloride Carbon Dioxide BUN Creatinine Glucose POC Glucose 190 H 157 H 144 H Lactic Acid Calcium Phosphorus Magnesium Direct Bilirubin AST ALT Alkaline Phosphatase Total Creatine Kinase C-Reactive Protein Total Protein Albumin TSH Vancomycin Trough 12/18/16 12/18/16 12/18/16 03:14 04:11 05:07 WBC RBC Hgb Hct MCV MCHC RDW Plt Count Lymph % (Auto) Parker % (Auto) Parker # Baso # Seg Neutrophils % Seg Neutrophils # PT INR D-Dimer POC ABG pH POC ABG pCO2 POC ABG pO2 Sodium Potassium Chloride Carbon Dioxide BUN Creatinine Glucose POC Glucose 117 H 108 H 122 H Lactic Acid Calcium Phosphorus Magnesium Direct Bilirubin AST ALT Alkaline Phosphatase Total Creatine Kinase C-Reactive Protein Total Protein Albumin TSH Vancomycin Trough 12/18/16 12/18/16 12/18/16 05:23 06:07 06:07 WBC RBC 3.18 L Hgb 9.6 L Hct 29.0 L D MCV MCHC RDW Plt Count 130 L Lymph % (Auto) [place] % (Auto) [place] # Baso # Seg Neutrophils % Seg Neutrophils # PT INR D-Dimer POC ABG pH 7.485 H POC ABG pCO2 27.5 L POC ABG pO2 275 H Sodium Potassium Chloride Carbon Dioxide BUN Creatinine Glucose POC Glucose Lactic Acid 3.2 H* Calcium Phosphorus Magnesium Direct Bilirubin AST ALT Alkaline Phosphatase Total Creatine Kinase C-Reactive Protein Total Protein Albumin TSH Vancomycin Trough 12/18/16 12/18/16 12/18/16 06:08 06:22 07:26 WBC RBC Hgb Hct MCV MCHC RDW Plt Count Lymph % (Auto) [place] % (Auto) [place] # Baso # Seg Neutrophils % Seg Neutrophils # PT 18.3 H INR 1.52 H D-Dimer POC ABG pH POC ABG pCO2 POC ABG pO2 Sodium Potassium Chloride Carbon Dioxide BUN Creatinine Glucose POC Glucose 159 H 198 H Lactic Acid Calcium Phosphorus Magnesium Direct Bilirubin AST ALT Alkaline Phosphatase Total Creatine Kinase C-Reactive Protein Total Protein Albumin TSH Vancomycin Trough 12/18/16 12/18/16 12/18/16 08:27 09:00 09:30 WBC RBC Hgb Hct MCV MCHC RDW Plt Count Lymph % (Auto) [place] % (Auto) [place] # Baso # Seg Neutrophils % Seg Neutrophils # PT INR D-Dimer POC ABG pH POC ABG pCO2 POC ABG pO2 Sodium 147 H Potassium 5.5 H Chloride Carbon Dioxide 17 L BUN 145 H Creatinine 6.4 H Glucose 213 H POC Glucose 220 H 216 H Lactic Acid Calcium 6.0 L Phosphorus Magnesium Direct Bilirubin AST ALT Alkaline Phosphatase Total Creatine Kinase C-Reactive Protein Total Protein Albumin TSH Vancomycin Trough 12/18/16 12/18/16 12/18/16 10:29 11:11 12:05 WBC RBC Hgb Hct MCV MCHC RDW Plt Count Lymph % (Auto) [place] % (Auto) [place] # Baso # Seg Neutrophils % Seg Neutrophils # PT INR D-Dimer POC ABG pH POC ABG pCO2 POC ABG pO2 Sodium Potassium Chloride Carbon Dioxide BUN Creatinine Glucose POC Glucose 248 H 214 H 165 H Lactic Acid Calcium Phosphorus Magnesium Direct Bilirubin AST ALT Alkaline Phosphatase Total Creatine Kinase C-Reactive Protein Total Protein Albumin TSH Vancomycin Trough 03/06/2812/18/16 12/18/16 13:06 13:59 14:45 WBC RBC Hgb Hct MCV MCHC RDW Plt Count Lymph % (Auto) [place] % (Auto) [place] # Baso # Seg Neutrophils % Seg Neutrophils # PT INR D-Dimer POC ABG pH POC ABG pCO2 29.2 L POC ABG pO2 Sodium Potassium Chloride Carbon Dioxide BUN Creatinine Glucose POC Glucose 133 H 116 H Lactic Acid Calcium Phosphorus Magnesium Direct Bilirubin AST ALT Alkaline Phosphatase Total Creatine Kinase C-Reactive Protein Total Protein Albumin TSH Vancomycin Trough 12/18/16 12/18/16 12/18/16 14:52 15:14 15:52 WBC RBC Hgb Hct MCV MCHC RDW Plt Count Lymph % (Auto) [place] % (Auto) [place] # Baso # Seg Neutrophils % Seg Neutrophils # PT INR D-Dimer POC ABG pH POC ABG pCO2 24.2 L POC ABG pO2 Sodium Potassium Chloride Carbon Dioxide BUN Creatinine Glucose POC Glucose 139 H 146 H Lactic Acid Calcium Phosphorus Magnesium Direct Bilirubin AST ALT Alkaline Phosphatase Total Creatine Kinase C-Reactive Protein Total Protein Albumin TSH Vancomycin Trough 12/18/16 12/18/16 12/18/16 16:55 16:55 17:18 WBC RBC Hgb 11.4 L Hct 33.9 L MCV MCHC RDW Plt Count Lymph % (Auto) [place] % (Auto) [place] # Baso # Seg Neutrophils % Seg Neutrophils # PT 18.8 H INR 1.58 H D-Dimer POC ABG pH POC ABG pCO2 POC ABG pO2 Sodium Potassium Chloride Carbon Dioxide BUN Creatinine Glucose POC Glucose 144 H Lactic Acid Calcium Phosphorus Magnesium Direct Bilirubin AST ALT Alkaline Phosphatase Total Creatine Kinase C-Reactive Protein Total Protein Albumin TSH Vancomycin Trough 12/18/16 12/18/16 12/18/16 18:12 18:21 20:17 WBC RBC Hgb Hct MCV MCHC RDW Plt Count Lymph % (Auto) [place] % (Auto) [place] # Baso # Seg Neutrophils % Seg Neutrophils # PT INR D-Dimer POC ABG pH POC ABG pCO2 POC ABG pO2 Sodium Potassium Chloride Carbon Dioxide BUN Creatinine Glucose POC Glucose 147 H 120 H Lactic Acid Calcium Phosphorus 5.4 H D Magnesium Direct Bilirubin AST ALT Alkaline Phosphatase Total Creatine Kinase C-Reactive Protein Total Protein Albumin TSH Vancomycin Trough 12/18/16 12/19/16 12/19/16 22:52 00:56 02:09 WBC RBC Hgb Hct MCV MCHC RDW Plt Count Lymph % (Auto) [place] % (Auto) [place] # Baso # Seg Neutrophils % Seg Neutrophils # PT INR D-Dimer POC ABG pH POC ABG pCO2 POC ABG pO2 Sodium Potassium Chloride Carbon Dioxide BUN Creatinine Glucose POC Glucose 124 H 168 H 140 H Lactic Acid Calcium Phosphorus Magnesium Direct Bilirubin AST ALT Alkaline Phosphatase Total Creatine Kinase C-Reactive Protein Total Protein Albumin TSH Vancomycin Trough 12/19/16 12/19/16 12/19/16 04:20 04:20 04:53 WBC 11.8 H RBC Hgb 11.7 L Hct 34.7 L MCV MCHC RDW Plt Count Lymph % (Auto) 11.3 L [place] % (Auto) [place] # Baso # Seg Neutrophils % 83.9 H Seg Neutrophils # 9.9 H PT INR D-Dimer POC ABG pH POC ABG pCO2 POC ABG pO2 Sodium Potassium Chloride Carbon Dioxide 20 L BUN 108 H Creatinine 4.9 H Glucose 131 H POC Glucose 112 H Lactic Acid Calcium 6.3 L Phosphorus Magnesium Direct Bilirubin AST 1058 H ALT 133 H Alkaline Phosphatase Total Creatine Kinase C-Reactive Protein Total Protein 6.1 L Albumin 2.3 L TSH Vancomycin Trough 12/19/16 12/19/16 12/19/16 05:42 06:30 07:37 WBC RBC Hgb Hct MCV MCHC RDW Plt Count Lymph % (Auto) [place] % (Auto) [place] # Baso # Seg Neutrophils % Seg Neutrophils # PT INR D-Dimer POC ABG pH 7.539 H POC ABG pCO2 26.0 L POC ABG pO2 Sodium Potassium Chloride Carbon Dioxide BUN Creatinine Glucose POC Glucose 119 H 126 H Lactic Acid Calcium Phosphorus Magnesium Direct Bilirubin AST ALT Alkaline Phosphatase Total Creatine Kinase C-Reactive Protein Total Protein Albumin TSH Vancomycin Trough 12/19/16 12/19/16 12/19/16 09:59 12:38 14:25 WBC RBC Hgb Hct MCV MCHC RDW Plt Count Lymph % (Auto) [place] % (Auto) [place] # Baso # Seg Neutrophils % Seg Neutrophils # PT INR D-Dimer POC ABG pH POC ABG pCO2 POC ABG pO2 Sodium Potassium Chloride Carbon Dioxide BUN Creatinine Glucose POC Glucose 118 H 139 H 143 H Lactic Acid Calcium Phosphorus Magnesium Direct Bilirubin AST ALT Alkaline Phosphatase Total Creatine Kinase C-Reactive Protein Total Protein Albumin TSH Vancomycin Trough 12/19/16 12/19/16 12/19/16 16:50 18:01 23:04 WBC RBC Hgb Hct MCV MCHC RDW Plt Count Lymph % (Auto) [place] % (Auto) [place] # Baso # Seg Neutrophils % Seg Neutrophils # PT INR D-Dimer POC ABG pH POC ABG pCO2 POC ABG pO2 Sodium Potassium Chloride Carbon Dioxide BUN Creatinine Glucose POC Glucose 253 H 259 H 200 H Lactic Acid Calcium Phosphorus Magnesium Direct Bilirubin AST ALT Alkaline Phosphatase Total Creatine Kinase C-Reactive Protein Total Protein Albumin TSH Vancomycin Trough 12/20/16 12/20/16 12/20/16 00:58 02:57 04:09 WBC RBC Hgb Hct MCV MCHC RDW Plt Count Lymph % (Auto) [place] % (Auto) [place] # Baso # Seg Neutrophils % Seg Neutrophils # PT INR D-Dimer POC ABG pH POC ABG pCO2 POC ABG pO2 Sodium Potassium Chloride Carbon Dioxide BUN Creatinine Glucose POC Glucose 210 H 162 H 109 H Lactic Acid Calcium Phosphorus Magnesium Direct Bilirubin AST ALT Alkaline Phosphatase Total Creatine Kinase C-Reactive Protein Total Protein Albumin TSH Vancomycin Trough 12/20/16 12/20/16 12/20/16 05:11 05:57 07:41 WBC RBC Hgb Hct MCV MCHC RDW Plt Count Lymph % (Auto) [place] % (Auto) [place] # Baso # Seg Neutrophils % Seg Neutrophils # PT INR D-Dimer POC ABG pH 7.560 H POC ABG pCO2 28.2 L POC ABG pO2 Sodium Potassium Chloride Carbon Dioxide BUN Creatinine Glucose POC Glucose 121 H 170 H Lactic Acid Calcium Phosphorus Magnesium Direct Bilirubin AST ALT Alkaline Phosphatase Total Creatine Kinase C-Reactive Protein Total Protein Albumin TSH Vancomycin Trough 12/20/16 12/20/16 12/20/16 08:30 08:30 10:06 WBC RBC 3.36 L Hgb 10.1 L Hct 29.5 L MCV MCHC RDW Plt Count 114 L Lymph % (Auto) [place] % (Auto) [place] # Baso # Seg Neutrophils % Seg Neutrophils # PT INR D-Dimer POC ABG pH POC ABG pCO2 POC ABG pO2 Sodium Potassium Chloride 95.1 L Carbon Dioxide BUN 78 H Creatinine 5.0 H Glucose 181 H POC Glucose 155 H Lactic Acid Calcium 6.2 L Phosphorus Magnesium Direct Bilirubin AST ALT Alkaline Phosphatase Total Creatine Kinase C-Reactive Protein Total Protein Albumin TSH Vancomycin Trough 12/20/16 12/20/16 12/20/16 11:55 14:44 16:24 WBC RBC Hgb Hct MCV MCHC RDW Plt Count Lymph % (Auto) [place] % (Auto) [place] # Baso # Seg Neutrophils % Seg Neutrophils # PT INR D-Dimer POC ABG pH POC ABG pCO2 POC ABG pO2 Sodium Potassium Chloride Carbon Dioxide BUN Creatinine Glucose POC Glucose 124 H 171 H 143 H Lactic Acid Calcium Phosphorus Magnesium Direct Bilirubin AST ALT Alkaline Phosphatase Total Creatine Kinase C-Reactive Protein Total Protein Albumin TSH Vancomycin Trough 12/20/16 12/20/16 12/20/16 18:14 20:25 22:29 WBC RBC Hgb Hct MCV MCHC RDW Plt Count Lymph % (Auto) [place] % (Auto) [place] # Baso # Seg Neutrophils % Seg Neutrophils # PT INR D-Dimer POC ABG pH POC ABG pCO2 POC ABG pO2 Sodium Potassium Chloride Carbon Dioxide BUN Creatinine Glucose POC Glucose 144 H 130 H 146 H Lactic Acid Calcium Phosphorus Magnesium Direct Bilirubin AST ALT Alkaline Phosphatase Total Creatine Kinase C-Reactive Protein Total Protein Albumin TSH Vancomycin Trough 12/21/16 12/21/16 12/21/16 00:30 03:06 04:31 WBC RBC Hgb Hct MCV MCHC RDW Plt Count Lymph % (Auto) [place] % (Auto) [place] # Baso # Seg Neutrophils % Seg Neutrophils # PT INR D-Dimer POC ABG pH POC ABG pCO2 31.3 L POC ABG pO2 Sodium Potassium Chloride Carbon Dioxide BUN Creatinine Glucose POC Glucose 185 H 115 H Lactic Acid Calcium Phosphorus Magnesium Direct Bilirubin AST ALT Alkaline Phosphatase Total Creatine Kinase C-Reactive Protein Total Protein Albumin TSH Vancomycin Trough 12/21/16 12/21/16 12/21/16 04:45 06:38 06:41 WBC RBC Hgb Hct MCV MCHC RDW Plt Count Lymph % (Auto) [place] % (Auto) [place] # Baso # Seg Neutrophils % Seg Neutrophils # PT INR D-Dimer POC ABG pH POC ABG pCO2 POC ABG pO2 Sodium Potassium Chloride Carbon Dioxide BUN Creatinine Glucose POC Glucose 145 H 165 H 145 H Lactic Acid Calcium Phosphorus Magnesium Direct Bilirubin AST ALT Alkaline Phosphatase Total Creatine Kinase C-Reactive Protein Total Protein Albumin TSH Vancomycin Trough 12/21/16 12/21/16 12/21/16 09:35 09:35 10:14 WBC 11.8 H RBC 3.52 L Hgb 10.8 L Hct 31.3 L MCV MCHC RDW 13.0 L Plt Count 130 L Lymph % (Auto) [place] % (Auto) [place] # Baso # Seg Neutrophils % Seg Neutrophils # PT INR D-Dimer POC ABG pH POC ABG pCO2 POC ABG pO2 Sodium Potassium Chloride Carbon Dioxide 21 L BUN 98 H Creatinine 6.2 H Glucose 133 H POC Glucose 178 H Lactic Acid Calcium 6.7 L Phosphorus Magnesium Direct Bilirubin AST ALT Alkaline Phosphatase Total Creatine Kinase C-Reactive Protein Total Protein Albumin TSH Vancomycin Trough 12/21/16 12/21/16 12/21/16 12:22 14:28 15:59 WBC RBC Hgb Hct MCV MCHC RDW Plt Count Lymph % (Auto) [place] % (Auto) [place] # Baso # Seg Neutrophils % Seg Neutrophils # PT INR D-Dimer POC ABG pH POC ABG pCO2 POC ABG pO2 Sodium Potassium Chloride Carbon Dioxide BUN Creatinine Glucose POC Glucose 191 H 139 H 182 H Lactic Acid Calcium Phosphorus Magnesium Direct Bilirubin AST ALT Alkaline Phosphatase Total Creatine Kinase C-Reactive Protein Total Protein Albumin TSH Vancomycin Trough 12/21/16 12/21/16 12/21/16 18:23 20:19 22:02 WBC RBC Hgb Hct MCV MCHC RDW Plt Count Lymph % (Auto) [place] % (Auto) [place] # Baso # Seg Neutrophils % Seg Neutrophils # PT INR D-Dimer POC ABG pH POC ABG pCO2 POC ABG pO2 Sodium Potassium Chloride Carbon Dioxide BUN Creatinine Glucose POC Glucose 167 H 134 H 163 H Lactic Acid Calcium Phosphorus Magnesium Direct Bilirubin AST ALT Alkaline Phosphatase Total Creatine Kinase C-Reactive Protein Total Protein Albumin TSH Vancomycin Trough 12/22/16 12/22/16 12/22/16 00:09 01:55 04:00 WBC 12.0 H RBC 2.93 L Hgb 8.9 L Hct 26.1 L MCV MCHC RDW 13.0 L Plt Count 103 L Lymph % (Auto) [place] % (Auto) [place] # Baso # Seg Neutrophils % Seg Neutrophils # PT INR D-Dimer POC ABG pH POC ABG pCO2 POC ABG pO2 Sodium Potassium Chloride Carbon Dioxide BUN Creatinine Glucose POC Glucose 154 H 111 H Lactic Acid Calcium Phosphorus Magnesium Direct Bilirubin AST ALT Alkaline Phosphatase Total Creatine Kinase C-Reactive Protein Total Protein Albumin TSH Vancomycin Trough 12/22/16 12/22/16 12/22/16 04:00 04:09 04:48 WBC RBC Hgb Hct MCV MCHC RDW Plt Count Lymph % (Auto) [place] % (Auto) [place] # Baso # Seg Neutrophils % Seg Neutrophils # PT INR D-Dimer POC ABG pH POC ABG pCO2 32.2 L POC ABG pO2 42 L Sodium Potassium Chloride 97.0 L Carbon Dioxide 20 L BUN 119 H Creatinine 6.9 H Glucose 143 H POC Glucose 151 H Lactic Acid Calcium 6.3 L Phosphorus Magnesium Direct Bilirubin AST ALT Alkaline Phosphatase Total Creatine Kinase C-Reactive Protein Total Protein Albumin TSH Vancomycin Trough 12/22/16 12/22/16 12/22/16 05:22 08:09 09:34 WBC RBC Hgb 8.9 L Hct 26.5 L MCV MCHC RDW Plt Count 96 L Lymph % (Auto) [place] % (Auto) [place] # Baso # Seg Neutrophils % Seg Neutrophils # PT INR D-Dimer POC ABG pH POC ABG pCO2 34.7 L POC ABG pO2 Sodium Potassium Chloride Carbon Dioxide BUN Creatinine Glucose POC Glucose 113 H Lactic Acid Calcium Phosphorus Magnesium Direct Bilirubin AST ALT Alkaline Phosphatase Total Creatine Kinase C-Reactive Protein Total Protein Albumin TSH Vancomycin Trough Allied health notes reviewed: RT
[2016-12-22] MEDS: LEVOPHED 8 MG in NACL 0.9% 250ML 242 ML IV SCH (14:38)
[2016-12-22] MEDS: fentaNYL DRIP Premix 2,000 MCG/100 ML BAG IV SCH (15:00)
--- NOTE | 2016-12-22 15:36 | Progress Note ---
Assessment and Plan Assessment and plan: Septic shock - cont ivf, abx, supportive care, - liklely due to underlying PNA - wean off pressor as tolerated - abx 6/7 days today Acute Respiratory failure - intubated now, Pulmonary following, - periodic breathing treatment, Acute metabolic encephalopathy - head CT showed no acute finding - neurology following - will do MRI when he is more stable Systolic CHF, acute on chronic - Cardiology consulted, supportive care for now. - on aspirin, statin, hold beta aries for now - Ef 30% BRITTANY - nephrology following - started on HD - likely due to ATN from septic shock - increase fluid with tube feeding Hyperkalemia - s/p bicarbonate, calcium chloride, kayexalate with tube - monitor BMP frequently Diabetes type 2 with DKA - cont on insulin drip - monitor BG q1h PNA, with Strep Pneumoniae - cont abx, repeat culture so far negative Bacteremia - one out of two cx positive for micrococcus - on clindamycin and levaquin Febrile illness, resolved - spiking temp again, cont abx - off haldol and seroquel for possible drug fever - repeat cx negative Sinus tachycardia - due to septic shock - cont supportive care Hypernatremia - resolved - monitor BMP h/o hepatitis c with h/o alcohol abuse - hepatitis pannel positive for hep C - monitor LFT Subclavian artery injury - vascular surgeon following - cont on heparin drip - plan to remove the catheter at cath lab radiology technician tomorrow The high probability of a clinically significant, sudden or life threatening deterioration of the [respiratory, cardiac, renal] system(s) required my full and direct attention, intervention and personal management. The aggregate critical care time was [40] minutes. This time is in addition to time spent performing reported procedures but includes the following: [x] Data Review and interpretation [x] Patient assessment and monitoring of vital signs [x] Documentation [x] Medication orders and management History Interval history: Pt seen and examined, remained intubated, spiking temp since yesterday getting HD today Still on pressor updated daughter by phone Hospitalist Physical - Physical exam Narrative exam: General appearance: Present: mild distress, obese, other (orally intubated.) - EENT Eyes: Present: conjunctival injection. Absent: irregular pupil, scleral icterus ENT: dentition normal, no thrush, no ulcerations, NG tube on place - Neck Neck: Absent: rigidity, enlarged thyroid, cervical LAD - Respiratory Respiratory: bilateral: rales - Cardiovascular Rhythm: other (tachycardic) Heart Sounds: Present: S1 & S2 - Extremities Extremities: no ischemia, pulses intact Peripheral Pulses: within normal limits - Abdominal General gastrointestinal: soft, non-tender, non-distended, normal bowel sounds - Integumentary Integumentary: Present: warm, dry - Neurologic Neurologic: open eyes with verbal commend - Constitutional Vitals: Temp Pulse Resp BP Pulse Ox 99.7 F H 99 H 19 111/59 96 12/22/16 14:00 12/22/16 15:16 12/22/16 15:16 12/22/16 15:16 12/22/16 15:16 General appearance: Present: other (intubated) Results - Labs CBC & Chem 7: 12/22/16 09:34 12/22/16 04:00 Labs: Laboratory Last Values WBC 12.0 K/mm3 (4.5-11.0) H 12/22/16 04:00 RBC 2.93 M/mm3 (3.65-5.03) L 12/22/16 04:00 Hgb 8.9 gm/dl (11.8-15.2) L 12/22/16 09:34 Hct 26.5 % (35.5-45.6) L 12/22/16 09:34 MCV 89 fl (84-94) 12/22/16 04:00 MCH 30 pg (28-32) 12/22/16 04:00 MCHC 34 % (32-34) 12/22/16 04:00 RDW 13.0 % (13.2-15.2) L 12/22/16 04:00 Plt Count 96 K/mm3 (140-440) L 12/22/16 09:34 Lymph % (Auto) 11.3 % (13.4-35.0) L 12/19/16 04:20 [place] % (Auto) 4.0 % (0.0-7.3) 12/19/16 04:20 Eos % (Auto) 0.3 % (0.0-4.3) 12/19/16 04:20 Baso % (Auto) 0.5 % (0.0-1.8) 12/19/16 04:20 Lymph # 1.3 K/mm3 (1.2-5.4) 12/19/16 04:20 [place] # 0.5 K/mm3 (0.0-0.8) 12/19/16 04:20 Eos # 0.0 K/mm3 (0.0-0.4) 12/19/16 04:20 Baso # 0.1 K/mm3 (0.0-0.1) 12/19/16 04:20 Seg Neutrophils % 83.9 % (40.0-70.0) H 12/19/16 04:20 Seg Neutrophils # 9.9 K/mm3 (1.8-7.7) H 12/19/16 04:20 PT 18.8 Sec. (12.2-14.9) H 12/18/16 16:55 INR 1.58 (0.87-1.13) H 12/18/16 16:55 APTT 34.5 Sec. (24.2-36.6) 12/18/16 16:55 D-Dimer 586.01 ng/mlDDU (0-234) H 12/14/16 18:03 POC ABG pH 7.356 (7.35-7.45) 12/22/16 05:22 POC ABG pCO2 34.7 (35-45) L 12/22/16 05:22 POC ABG pO2 103 (80-105) 12/22/16 05:22 POC ABG HCO3 19.5 12/22/16 05:22 POC ABG Total CO2 21 12/22/16 05:22 POC ABG O2 Sat 98 12/22/16 05:22 POC ABG Base Excess -6 12/22/16 05:22 FiO2 40 % 12/22/16 05:22 Sodium 138 mmol/L (137-145) 12/22/16 04:00 Potassium 4.5 mmol/L (3.6-5.0) 12/22/16 04:00 Chloride 97.0 mmol/L (98-107) L 12/22/16 04:00 Carbon Dioxide 20 mmol/L (22-30) L 12/22/16 04:00 Anion Gap 26 mmol/L 12/22/16 04:00 BUN 119 mg/dL (9-20) H 12/22/16 04:00 Creatinine 6.9 mg/dL (0.8-1.5) H 12/22/16 04:00 Estimated GFR 8 ml/min 12/22/16 04:00 BUN/Creatinine Ratio 17.24 % 12/22/16 04:00 Glucose 143 mg/dL (75-100) H 12/22/16 04:00 POC Glucose 113 (70-105) H 12/22/16 08:09 Lactic Acid 1.9 mmol/L (0.7-2.0) 12/18/16 09:00 Calcium 6.3 mg/dL (8.4-10.2) L 12/22/16 04:00 Phosphorus 5.4 mg/dL (2.5-4.5) H D 12/18/16 18:21 Magnesium 2.5 mg/dL (1.7-2.3) H 12/17/16 09:10 Total Bilirubin 0.9 mg/dL (0.1-1.2) 12/19/16 04:20 Direct Bilirubin 0.7 mg/dL (0-0.2) H 12/07/16 05:30 Indirect Bilirubin 0.4 mg/dL 12/07/16 05:30 AST 1058 units/L (5-40) H 12/19/16 04:20 ALT 133 units/L (7-56) H 12/19/16 04:20 Alkaline Phosphatase 35 units/L (35-129) 12/19/16 04:20 Ammonia 42.0 umol/L (25-60) 12/06/16 16:07 Total Creatine Kinase 242 units/L (55-170) H 12/07/16 06:58 CK-MB (CK-2) 2.8 ng/mL (0.0-4.0) 12/07/16 06:58 CK-MB (CK-2) Rel Index 1.1 (0-4) 12/07/16 06:58 Troponin T < 0.010 ng/mL (0.00-0.029) 12/07/16 06:58 C-Reactive Protein 1.20 mg/dL (0.00-1.30) 12/15/16 11:37 Total Protein 6.1 g/dL (6.3-8.2) L 12/19/16 04:20 Albumin 2.3 g/dL (3.9-5) L 12/19/16 04:20 Albumin/Globulin Ratio 0.6 % 12/19/16 04:20 Vitamin B12 815.1 pg/mL (211-911) 12/15/16 09:15 TSH 0.204 mlU/mL (0.270-4.200) L 12/15/16 13:40 Free T4 1.16 ng/dL (0.76-1.46) 12/15/16 13:40 Urine Color Winsome (Yellow) 12/06/16 15:30 Urine Turbidity Clear (Clear) 12/06/16 15:30 Urine pH 6.0 (5.0-7.0) 12/06/16 15:30 Ur Specific [place] 1.017 (1.003-1.030) 12/06/16 15:30 Urine Protein 100 mg/dl mg/dL (Negative) 12/06/16 15:30 Urine Glucose (UA) 50 mg/dL (Negative) 12/06/16 15:30 Urine Ketones Neg mg/dL (Negative) 12/06/16 15:30 Urine Blood Sm (Negative) 12/06/16 15:30 Urine Nitrite Neg (Negative) 12/06/16 15:30 Urine Bilirubin Neg (Negative) 12/06/16 15:30 Urine Urobilinogen 4.0 mg/dL (<2.0) 12/06/16 15:30 Ur Leukocyte Esterase Neg (Negative) 12/06/16 15:30 Urine WBC (Auto) < 1.0 /HPF (0.0-6.0) 12/06/16 15:30 Urine RBC (Auto) 4.0 /HPF (0.0-6.0) 12/06/16 15:30 Urine Mucus Few /HPF 12/06/16 15:30 Vancomycin Trough 33.7 ug/mL (5.0-20.0) H 12/16/16 18:34 Salicylates < 0.3 mg/dL (2.8-20.0) L 12/06/16 16:07 Urine Opiates Screen Presumptive negative 12/06/16 15:30 Urine Methadone Screen Presumptive negative 12/06/16 15:30 Acetaminophen < 15.0 ug/mL (10.0-30.0) 12/06/16 16:07 Ur Barbiturates Screen Presumptive negative 12/06/16 15:30 Ur Phencyclidine Scrn Presumptive negative 12/06/16 15:30 Ur Amphetamines Screen Presumptive negative 12/06/16 15:30 U Benzodiazepines Scrn Presumptive negative 12/06/16 15:30 Urine Cocaine Screen Presumptive negative 12/06/16 15:30 U Marijuana (THC) Screen Presumptive negative 12/06/16 15:30 Drugs of Abuse Note Disclamer 12/06/16 15:30 Plasma/Serum Alcohol < 0.01 gm% (0-0.07) 12/06/16 16:07 Hepatitis A IgM Ab Non-reactive (NonReactive) 12/18/16 18:21 Hep Bs Antigen Non-reactive (Negative) 12/18/16 18:21 Hep B Core IgM Ab Non-reactive (NonReactive) 12/18/16 18:21 Hepatitis C Antibody Reactive (NonReactive) 12/18/16 18:21
[2016-12-22] MEDS ORDERED: SODIUM BICARBONATE FEEDTUBE PRN (16:35)
[2016-12-22] MEDS ORDERED: SIMPLE SYRUP FEEDTUBE PRN ×2 (16:35)
[2016-12-22] MEDS ORDERED: PANCREAZE DR 10,500 UNIT FEEDTUBE PRN (16:35)
--- NOTE | 2016-12-22 17:06 | Event Note ---
Date: 12/22/16 Patient is on hemodialysis earlier today. He has persistent hypotension and continues to require Levophed. We'll turn off his tube feeds in preparation for possible removal of triple lumen catheter from right subclavian artery tomorrow if patient's condition allows.
--- NOTE | 2016-12-22 20:38 | Progress Note ---
Subjective Date of service: 12/22/16 Principal diagnosis: Acute hypoxemic respiratory failure, shock Interval history: Fever. PHYSICAL EXAM Vital signs - temp 102. chest - mild b/l rhonchi cvs - s1s2 abd - bs+ LABS See lab section ASSESSMENT 1. Pneumonia 2. Acute respiratory failure 3. Encephalopathy 4. CHF RECOMMENDATION 1. cbc/bmp in am 2. continue current antibiotics. Day 6/ iv abx. 3. REPEAT BLOOD CULTURE X2. Objective - Constitutional Vitals: Vital Signs Temp Pulse Resp BP Pulse Ox 99.0 F 102 H 17 92/66 100 12/22/16 20:00 12/22/16 20:14 12/22/16 20:14 12/22/16 20:08 12/22/16 20:08 Temperature -Last 24 Hours Temperature 99.0 F Temperature 99.0 F Temperature 99 F Temperature 99.7 F Temperature 99.7 F Temperature 102.6 F Temperature 102.6 F Temperature 102.6 F Temperature 102.5 F Temperature 101.3 F - Labs CBC & Chem 7: 12/22/16 09:34 12/22/16 04:00 Labs: Abnormal lab results 12/21/16 12/21/16 12/21/16 Range/Units 10:14 14:28 20:19 WBC (4.5-11.0) K/mm3 RBC (3.65-5.03) M/mm3 Hgb (11.8-15.2) gm/dl Hct (35.5-45.6) % RDW (13.2-15.2) % Plt Count (140-440) K/mm3 POC ABG pCO2 (35-45) POC ABG pO2 (80-105) Chloride (98-107) mmol/L Carbon Dioxide (22-30) mmol/L BUN (9-20) mg/dL Creatinine (0.8-1.5) mg/dL Glucose (75-100) mg/dL POC Glucose 178 H 139 H 134 H (70-105) Calcium (8.4-10.2) mg/dL 12/21/16 12/22/16 12/22/16 Range/Units 22:02 00:09 01:55 WBC (4.5-11.0) K/mm3 RBC (3.65-5.03) M/mm3 Hgb (11.8-15.2) gm/dl Hct (35.5-45.6) % RDW (13.2-15.2) % Plt Count (140-440) K/mm3 POC ABG pCO2 (35-45) POC ABG pO2 (80-105) Chloride (98-107) mmol/L Carbon Dioxide (22-30) mmol/L BUN (9-20) mg/dL Creatinine (0.8-1.5) mg/dL Glucose (75-100) mg/dL POC Glucose 163 H 154 H 111 H (70-105) Calcium (8.4-10.2) mg/dL 12/22/16 12/22/16 12/22/16 Range/Units 04:00 04:00 04:09 WBC 12.0 H (4.5-11.0) K/mm3 RBC 2.93 L (3.65-5.03) M/mm3 Hgb 8.9 L (11.8-15.2) gm/dl Hct 26.1 L (35.5-45.6) % RDW 13.0 L (13.2-15.2) % Plt Count 103 L (140-440) K/mm3 POC ABG pCO2 (35-45) POC ABG pO2 (80-105) Chloride 97.0 L (98-107) mmol/L Carbon Dioxide 20 L (22-30) mmol/L BUN 119 H (9-20) mg/dL Creatinine 6.9 H (0.8-1.5) mg/dL Glucose 143 H (75-100) mg/dL POC Glucose 151 H (70-105) Calcium 6.3 L (8.4-10.2) mg/dL 12/22/16 12/22/16 12/22/16 Range/Units 04:48 05:22 08:09 WBC (4.5-11.0) K/mm3 RBC (3.65-5.03) M/mm3 Hgb (11.8-15.2) gm/dl Hct (35.5-45.6) % RDW (13.2-15.2) % Plt Count (140-440) K/mm3 POC ABG pCO2 32.2 L 34.7 L (35-45) POC ABG pO2 42 L (80-105) Chloride (98-107) mmol/L Carbon Dioxide (22-30) mmol/L BUN (9-20) mg/dL Creatinine (0.8-1.5) mg/dL Glucose (75-100) mg/dL POC Glucose 113 H (70-105) Calcium (8.4-10.2) mg/dL 12/22/16 12/22/16 12/22/16 Range/Units 09:34 12:26 14:05 WBC (4.5-11.0) K/mm3 RBC (3.65-5.03) M/mm3 Hgb 8.9 L (11.8-15.2) gm/dl Hct 26.5 L (35.5-45.6) % RDW (13.2-15.2) % Plt Count 96 L (140-440) K/mm3 POC ABG pCO2 (35-45) POC ABG pO2 (80-105) Chloride (98-107) mmol/L Carbon Dioxide (22-30) mmol/L BUN (9-20) mg/dL Creatinine (0.8-1.5) mg/dL Glucose (75-100) mg/dL POC Glucose 190 H 160 H (70-105) Calcium (8.4-10.2) mg/dL 12/22/16 Range/Units 16:25 WBC (4.5-11.0) K/mm3 RBC (3.65-5.03) M/mm3 Hgb (11.8-15.2) gm/dl Hct (35.5-45.6) % RDW (13.2-15.2) % Plt Count (140-440) K/mm3 POC ABG pCO2 (35-45) POC ABG pO2 (80-105) Chloride (98-107) mmol/L Carbon Dioxide (22-30) mmol/L BUN (9-20) mg/dL Creatinine (0.8-1.5) mg/dL Glucose (75-100) mg/dL POC Glucose 106 H (70-105) Calcium (8.4-10.2) mg/dL
[2016-12-22] MEDS: ZOCOR PO SCH (21:24)
[2016-12-23] MEDS: DUONEB 0.5 MG-3 MG/3 ML SOLN IH SCH ×4 (02:01→20:10)
[2016-12-23] MEDS: fentaNYL DRIP Premix 2,000 MCG/100 ML BAG IV SCH ×2 (02:30→12:05)
[2016-12-23 05:18] LABS: ISTAT Base Excess -2; ISTAT HCO3 22.9; ISTAT PCO2 37.6 (35-45); ISTAT PH 7.392 (7.35-7.45); ISTAT PO2 123 (80-105); ISTAT SO2 99; ISTAT TCO2 24
[2016-12-23 05:27] LABS: Hematocrit 23.7 % (35.5-45.6); Hemoglobin 8.1 gm/dl (11.8-15.2); Mean Corpuscular HGB Conc 34 % (32-34); Mean Corpuscular Hemoglobin 30 pg (28-32); Mean Corpuscular Volume 89 fl (84-94); Red Blood Count 2.67 M/mm3 (3.65-5.03); White Blood Count 8.1 K/mm3 (4.5-11.0)
[2016-12-23 05:47] LABS: BUN/Creatinine Ratio 15.66; Chloride 96.1 mmol/L (98-107)
[2016-12-23 05:52] LABS: Platelet Count 89 K/mm3 (140-440)
[2016-12-23] MEDS: ZOSYN/NS 2.25 GM/50ML 2.25 GM/50 ML BAG IV SCH ×2 (06:27→15:54)
[2016-12-23] MEDS: HEPARIN SUB-Q SCH ×3 (06:28→21:10)
--- NOTE | 2016-12-23 06:59 | Progress Note ---
Assessment and Plan - Patient Problems (1) Acute kidney failure with tubular necrosis Current Visit: Yes Status: Acute Plan to address problem: Kidney indices improved to dialysis yesterday. Electrolytes within normal limits. Edema resolving. Will dialyze again this morning. Reevaluate on a daily basis (2) Acute hypoxemic respiratory failure Current Visit: Yes Status: Acute Plan to address problem: Continue ventilator management by pulmonary. (3) Septic shock Current Visit: Yes Status: Acute Plan to address problem: Patient still on Levophed. Weaning ongoing. Continue antibiotics. (4) Systolic CHF, acute on chronic Current Visit: No Status: Acute Plan to address problem: EF 35%. Volume status a bit worse. Reevaluate need for dialysis for fluid removal on a daily basis. 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 Subjective Date of service: 12/23/16 Principal diagnosis: Acute hypoxemic respiratory failure, shock Interval history: Patient seen lying in bed. He is intubated on the ventilator. On fentanyl infusion. On Levophed to down to 5 mics per kilogram per minute. Unable to obtain review of systems due to patient being intubated on ventilator Objective - Exam Narrative Exam: Middle-aged male intubated on the ventilator HEENT normocephalic atraumatic, pupils equal reactive to light, pink, clear oropharynx Neck supple, no thyromegaly no jugular venous distention CVS S1-S2 regular rate rhythm without murmur, rub or gallop Chest faint rhonchi diminished in the lower zones Abdomen soft nondistended nontender no organomegaly no bruit bowel sounds present Extremities mild edema no cyanosis or clubbing Neuro drowsy but awakens, intubated on ventilator - Vital Signs Vital signs: Vital Signs - 12hr 12/22/16 12/22/16 12/22/16 19:00 19:16 19:30 Temperature Pulse Rate 97 H 99 H 96 H Pulse Rate [ Anterior Bilateral Throughout] Pulse Rate [ From Monitor] Respiratory 15 16 14 Rate Respiratory Rate [Anterior Bilateral Throughout] Blood Pressure 95/53 95/53 100/47 O2 Sat by Pulse 100 100 100 Oximetry 12/22/16 12/22/16 12/22/16 19:46 20:00 20:08 Temperature 99.0 F Pulse Rate 97 H 97 H 98 H Pulse Rate [ Anterior Bilateral Throughout] Pulse Rate [ 99 H From Monitor] Respiratory 15 17 Rate Respiratory Rate [Anterior Bilateral Throughout] Blood Pressure 100/47 100/50 92/66 O2 Sat by Pulse 100 88 100 Oximetry 12/22/16 12/22/16 12/22/16 20:14 20:16 20:30 Temperature Pulse Rate 96 H 95 H Pulse Rate [ 102 H Anterior Bilateral Throughout] Pulse Rate [ From Monitor] Respiratory 16 13 Rate Respiratory 17 Rate [Anterior Bilateral Throughout] Blood Pressure 100/50 98/49 O2 Sat by Pulse 100 100 Oximetry 12/22/16 12/22/16 12/22/16 20:40 20:41 20:46 Temperature Pulse Rate 103 H 103 H Pulse Rate [ 102 H Anterior Bilateral Throughout] Pulse Rate [ From Monitor] Respiratory 15 13 Rate Respiratory 18 Rate [Anterior Bilateral Throughout] Blood Pressure 98/49 98/49 O2 Sat by Pulse 97 98 Oximetry 12/22/16 12/22/16 12/22/16 21:00 21:16 21:30 Temperature Pulse Rate 99 H 98 H 101 H Pulse Rate [ Anterior Bilateral Throughout] Pulse Rate [ From Monitor] Respiratory 17 13 15 Rate Respiratory Rate [Anterior Bilateral Throughout] Blood Pressure 106/48 106/48 104/44 O2 Sat by Pulse 99 99 98 Oximetry 12/22/16 12/22/16 12/22/16 21:46 22:00 22:16 Temperature Pulse Rate 96 H 97 H 98 H Pulse Rate [ Anterior Bilateral Throughout] Pulse Rate [ From Monitor] Respiratory 15 19 14 Rate Respiratory Rate [Anterior Bilateral Throughout] Blood Pressure 104/44 84/39 84/39 O2 Sat by Pulse 100 100 Oximetry 12/22/16 12/22/16 12/22/16 22:30 22:46 23:00 Temperature Pulse Rate 97 H 102 H 100 H Pulse Rate [ Anterior Bilateral Throughout] Pulse Rate [ From Monitor] Respiratory 16 19 16 Rate Respiratory Rate [Anterior Bilateral Throughout] Blood Pressure 92/42 92/42 94/44 O2 Sat by Pulse Oximetry 03/13/17 03/13/17 03/13/17 23:16 23:30 23:46 Temperature Pulse Rate 101 H 107 H 104 H Pulse Rate [ Anterior Bilateral Throughout] Pulse Rate [ From Monitor] Respiratory 12 18 20 Rate Respiratory Rate [Anterior Bilateral Throughout] Blood Pressure 94/44 97/41 97/41 O2 Sat by Pulse Oximetry 12/23/16 12/23/16 12/23/16 00:00 00:10 00:16 Temperature 100.7 F H Pulse Rate 101 H 101 H 100 H Pulse Rate [ Anterior Bilateral Throughout] Pulse Rate [ 98 H From Monitor] Respiratory 10 L 13 Rate Respiratory Rate [Anterior Bilateral Throughout] Blood Pressure 106/42 106/42 106/42 O2 Sat by Pulse 99 98 97 Oximetry 12/23/16 12/23/16 12/23/16 00:30 00:46 01:00 Temperature Pulse Rate 102 H 99 H 101 H Pulse Rate [ Anterior Bilateral Throughout] Pulse Rate [ From Monitor] Respiratory 16 15 10 L Rate Respiratory Rate [Anterior Bilateral Throughout] Blood Pressure 97/44 97/44 95/44 O2 Sat by Pulse Oximetry 12/23/16 12/23/16 12/23/16 01:16 01:30 01:46 Temperature Pulse Rate 100 H 101 H 100 H Pulse Rate [ Anterior Bilateral Throughout] Pulse Rate [ From Monitor] Respiratory 12 19 25 H Rate Respiratory Rate [Anterior Bilateral Throughout] Blood Pressure 95/44 90/45 90/45 O2 Sat by Pulse 97 96 96 Oximetry 12/23/16 12/23/16 12/23/16 02:00 02:04 02:16 Temperature Pulse Rate 99 H 98 H Pulse Rate [ 103 H Anterior Bilateral Throughout] Pulse Rate [ From Monitor] Respiratory 24 18 Rate Respiratory 19 Rate [Anterior Bilateral Throughout] Blood Pressure 100/43 100/43 O2 Sat by Pulse 96 95 Oximetry 12/23/16 12/23/16 12/23/16 02:28 02:30 02:46 Temperature Pulse Rate 100 H 101 H Pulse Rate [ 97 H Anterior Bilateral Throughout] Pulse Rate [ From Monitor] Respiratory 11 L 12 Rate Respiratory 19 Rate [Anterior Bilateral Throughout] Blood Pressure 92/43 92/43 O2 Sat by Pulse 93 94 Oximetry 12/23/16 12/23/16 12/23/16 03:00 03:16 03:30 Temperature Pulse Rate 102 H 102 H 103 H Pulse Rate [ Anterior Bilateral Throughout] Pulse Rate [ From Monitor] Respiratory 11 L 15 14 Rate Respiratory Rate [Anterior Bilateral Throughout] Blood Pressure 100/42 100/42 97/43 O2 Sat by Pulse 93 93 92 Oximetry 12/23/16 12/23/16 12/23/16 03:46 04:00 04:16 Temperature 100.5 F H Pulse Rate 103 H 103 H 108 H Pulse Rate [ Anterior Bilateral Throughout] Pulse Rate [ 100 H From Monitor] Respiratory 12 14 13 Rate Respiratory Rate [Anterior Bilateral Throughout] Blood Pressure 97/43 101/42 101/42 O2 Sat by Pulse 92 93 93 Oximetry 12/23/16 04:52 Temperature Pulse Rate 104 H Pulse Rate [ Anterior Bilateral Throughout] Pulse Rate [ From Monitor] Respiratory Rate Respiratory Rate [Anterior Bilateral Throughout] Blood Pressure 88/45 O2 Sat by Pulse 95 Oximetry - Lab 12/23/16 05:00 12/23/16 05:00 Most recent lab results Calcium 7.0 mg/dL (8.4-10.2) L 12/23/16 05:00 Phosphorus 5.4 mg/dL (2.5-4.5) H D 12/18/16 18:21 Magnesium 2.5 mg/dL (1.7-2.3) H 12/17/16 09:10
[2016-12-23] MEDS ORDERED: NACL 0.9% 500 ML 500 ML IV ONE (07:00)
--- NOTE | 2016-12-23 09:37 | Progress Note ---
Assessment and Plan Assessment and plan: Septic shock due to pneumonia.. Continue supportive care, IV fluid, antibiotics Zosyn iv, Zyvox, fluconazole , Levopheds Acute Respiratory failure due to Pneumonia. He is intubated on ventilator. Pulmonology following. Acute metabolic encephalopathy. CT head unremarkable. Neurology following. Acute on chronic systolic CHF. EF 30% Cont aspirin, statin. Beta blockers on hold for now. cardiology following. Acute kidney Injury secondary to acute tubular necrosis from septic shock. He has been started on hemodialysis. Nephrology following. Cr 5.3 today Hyperkalemia. This is now resolved. DKA with diabetes mellitus type 2. Now on Levemir Pneumonia due to strep pneumonia Bacteremia.One out of two cx positive for micrococcus. Continue Zosyn and Zyvox. Sinus tachycardia. due to septic shock. Lopressor iv prn Hypernatremia. Now resolved. Sodium 135 today. Hyponatremia. Sodium 135 today. Will recheck in am. Alcohol abuse. Hepatitis C History Interval history: Patient still intubated, still having fever Hospitalist Physical - Physical exam Narrative exam: Gen: Intubated, on ventilator, HEENT: normocephalic,atraumatic Neck : no JVD Lungs: bilateral crackles, no wheezes Heart: S1 and S2 regular, no murmurs no gallops, Abdomen: soft nontender, nondistended, normal bowel sounds Extremities: no edema, no clubbing or cyanosis Neuro: Intubated, sedated, - Constitutional Vitals: Temp Pulse Resp BP Pulse Ox 100 F H 105 H 18 95/49 99 12/23/16 07:58 12/23/16 08:10 12/23/16 08:10 12/23/16 08:00 12/23/16 08:00 General appearance: Present: other (intubated) Results - Labs CBC & Chem 7: 12/23/16 05:00 12/23/16 05:00 Labs: Laboratory Last Values WBC 8.1 K/mm3 (4.5-11.0) 12/23/16 05:00 RBC 2.67 M/mm3 (3.65-5.03) L 12/23/16 05:00 Hgb 8.1 gm/dl (11.8-15.2) L 12/23/16 05:00 Hct 23.7 % (35.5-45.6) L 12/23/16 05:00 MCV 89 fl (84-94) 12/23/16 05:00 MCH 30 pg (28-32) 12/23/16 05:00 MCHC 34 % (32-34) 12/23/16 05:00 RDW 13.0 % (13.2-15.2) L 12/23/16 05:00 Plt Count 89 K/mm3 (140-440) L 12/23/16 05:00 Lymph % (Auto) 11.3 % (13.4-35.0) L 12/19/16 04:20 [place] % (Auto) 4.0 % (0.0-7.3) 12/19/16 04:20 Eos % (Auto) 0.3 % (0.0-4.3) 12/19/16 04:20 Baso % (Auto) 0.5 % (0.0-1.8) 12/19/16 04:20 Lymph # 1.3 K/mm3 (1.2-5.4) 12/19/16 04:20 [place] # 0.5 K/mm3 (0.0-0.8) 12/19/16 04:20 Eos # 0.0 K/mm3 (0.0-0.4) 12/19/16 04:20 Baso # 0.1 K/mm3 (0.0-0.1) 12/19/16 04:20 Seg Neutrophils % 83.9 % (40.0-70.0) H 12/19/16 04:20 Seg Neutrophils # 9.9 K/mm3 (1.8-7.7) H 12/19/16 04:20 PT 18.8 Sec. (12.2-14.9) H 12/18/16 16:55 INR 1.58 (0.87-1.13) H 12/18/16 16:55 APTT 34.5 Sec. (24.2-36.6) 12/18/16 16:55 D-Dimer 586.01 ng/mlDDU (0-234) H 12/14/16 18:03 POC ABG pH 7.392 (7.35-7.45) 12/23/16 04:48 POC ABG pCO2 37.6 (35-45) 12/23/16 04:48 POC ABG pO2 123 (80-105) H 12/23/16 04:48 POC ABG HCO3 22.9 12/23/16 04:48 POC ABG Total CO2 24 12/23/16 04:48 POC ABG O2 Sat 99 12/23/16 04:48 POC ABG Base Excess -2 12/23/16 04:48 FiO2 40 % 12/23/16 04:48 Sodium 135 mmol/L (137-145) L 12/23/16 05:00 Potassium 4.0 mmol/L (3.6-5.0) 12/23/16 05:00 Chloride 96.1 mmol/L (98-107) L 12/23/16 05:00 Carbon Dioxide 22 mmol/L (22-30) 12/23/16 05:00 Anion Gap 21 mmol/L 12/23/16 05:00 BUN 83 mg/dL (9-20) H 12/23/16 05:00 Creatinine 5.3 mg/dL (0.8-1.5) H 12/23/16 05:00 Estimated GFR 11 ml/min 12/23/16 05:00 BUN/Creatinine Ratio 15.66 % 12/23/16 05:00 Glucose 126 mg/dL (75-100) H 12/23/16 05:00 POC Glucose 71 (70-105) 12/23/16 02:03 Lactic Acid 1.9 mmol/L (0.7-2.0) 12/18/16 09:00 Calcium 7.0 mg/dL (8.4-10.2) L 12/23/16 05:00 Phosphorus 5.4 mg/dL (2.5-4.5) H D 12/18/16 18:21 Magnesium 2.5 mg/dL (1.7-2.3) H 12/17/16 09:10 Total Bilirubin 0.9 mg/dL (0.1-1.2) 12/19/16 04:20 Direct Bilirubin 0.7 mg/dL (0-0.2) H 12/07/16 05:30 Indirect Bilirubin 0.4 mg/dL 12/07/16 05:30 AST 1058 units/L (5-40) H 12/19/16 04:20 ALT 133 units/L (7-56) H 12/19/16 04:20 Alkaline Phosphatase 35 units/L (35-129) 12/19/16 04:20 Ammonia 42.0 umol/L (25-60) 12/06/16 16:07 Total Creatine Kinase 242 units/L (55-170) H 12/07/16 06:58 CK-MB (CK-2) 2.8 ng/mL (0.0-4.0) 12/07/16 06:58 CK-MB (CK-2) Rel Index 1.1 (0-4) 12/07/16 06:58 Troponin T < 0.010 ng/mL (0.00-0.029) 12/07/16 06:58 C-Reactive Protein 1.20 mg/dL (0.00-1.30) 12/15/16 11:37 Total Protein 6.1 g/dL (6.3-8.2) L 12/19/16 04:20 Albumin 2.3 g/dL (3.9-5) L 12/19/16 04:20 Albumin/Globulin Ratio 0.6 % 12/19/16 04:20 Vitamin B12 815.1 pg/mL (211-911) 12/15/16 09:15 TSH 0.204 mlU/mL (0.270-4.200) L 12/15/16 13:40 Free T4 1.16 ng/dL (0.76-1.46) 12/15/16 13:40 Urine Color Winsome (Yellow) 12/06/16 15:30 Urine Turbidity Clear (Clear) 12/06/16 15:30 Urine pH 6.0 (5.0-7.0) 12/06/16 15:30 Ur Specific [place] 1.017 (1.003-1.030) 12/06/16 15:30 Urine Protein 100 mg/dl mg/dL (Negative) 12/06/16 15:30 Urine Glucose (UA) 50 mg/dL (Negative) 12/06/16 15:30 Urine Ketones Neg mg/dL (Negative) 12/06/16 15:30 Urine Blood Sm (Negative) 12/06/16 15:30 Urine Nitrite Neg (Negative) 12/06/16 15:30 Urine Bilirubin Neg (Negative) 12/06/16 15:30 Urine Urobilinogen 4.0 mg/dL (<2.0) 12/06/16 15:30 Ur Leukocyte Esterase Neg (Negative) 12/06/16 15:30 Urine WBC (Auto) < 1.0 /HPF (0.0-6.0) 12/06/16 15:30 Urine RBC (Auto) 4.0 /HPF (0.0-6.0) 12/06/16 15:30 Urine Mucus Few /HPF 12/06/16 15:30 Vancomycin Trough 33.7 ug/mL (5.0-20.0) H 12/16/16 18:34 Salicylates < 0.3 mg/dL (2.8-20.0) L 12/06/16 16:07 Urine Opiates Screen Presumptive negative 12/06/16 15:30 Urine Methadone Screen Presumptive negative 12/06/16 15:30 Acetaminophen < 15.0 ug/mL (10.0-30.0) 12/06/16 16:07 Ur Barbiturates Screen Presumptive negative 12/06/16 15:30 Ur Phencyclidine Scrn Presumptive negative 12/06/16 15:30 Ur Amphetamines Screen Presumptive negative 12/06/16 15:30 U Benzodiazepines Scrn Presumptive negative 12/06/16 15:30 Urine Cocaine Screen Presumptive negative 12/06/16 15:30 U Marijuana (THC) Screen Presumptive negative 12/06/16 15:30 Drugs of Abuse Note Disclamer 12/06/16 15:30 Plasma/Serum Alcohol < 0.01 gm% (0-0.07) 12/06/16 16:07 Hepatitis A IgM Ab Non-reactive (NonReactive) 12/18/16 18:21 Hep Bs Antigen Non-reactive (Negative) 12/18/16 18:21 Hep B Core IgM Ab Non-reactive (NonReactive) 12/18/16 18:21 Hepatitis C Antibody Reactive (NonReactive) 12/18/16 18:21 Blood Type A NEGATIVE 12/23/16 07:30 Antibody Screen Negative 12/23/16 07:30 Crossmatch See Detail 12/23/16 07:30
--- NOTE | 2016-12-23 11:38 | Progress Note ---
Assessment and Plan Acute respiratory failure currently intubated Septic shock Pneumonia Altered mental status Acute renal failure initiated on HD this admission Chronic systolic heart failure Ischemic cardiomyopathy Echo this admission demonstrates left ventricular ejection fraction 35%. Hx of CAD [facility] 2013: patent mid LAD stent, patent diagonal branch stent, patent mid obtuse marginal stent. Nonobstructive disease of the RCA. EF 30-35%. Plan: Supportive cardiac management. Subjective Date of service: 12/23/16 Principal diagnosis: Acute hypoxemic respiratory failure, shock Interval history: Patient remains intubated on the vent. On Levophed. Undergoing HD. Objective Vital Signs Temp Pulse Pulse Pulse Resp Resp BP 12/23/16 11:31 100.0 F H 94 H 22 110/57 12/23/16 11:30 95 H 110/57 12/23/16 11:25 100.0 F H 97 H 22 110/57 12/23/16 11:15 101 H 112/55 12/23/16 11:00 96 H 16 112/55 12/23/16 10:45 94 H 16 105/53 12/23/16 10:30 95 H 15 112/54 12/23/16 10:15 96 H 18 108/54 12/23/16 10:00 103 H 23 94/49 12/23/16 09:46 100 H 22 104/46 12/23/16 09:45 100.0 F H 98 H 21 94/49 12/23/16 09:30 100 H 18 100/47 12/23/16 09:16 100 H 22 104/46 12/23/16 09:00 99 H 20 104/46 12/23/16 08:46 103 H 16 100/46 12/23/16 08:30 102 H 20 99/50 12/23/16 08:16 99 H 16 95/49 12/23/16 08:10 105 H 18 12/23/16 08:00 102 H 103 H 15 17 100/46 12/23/16 07:58 100 F H 12/23/16 07:46 105 H 15 95/49 12/23/16 07:30 100 H 19 95/49 12/23/16 07:16 109 H 17 99/47 12/23/16 07:00 103 H 19 91/49 12/23/16 06:46 103 H 16 119/52 12/23/16 06:30 107 H 16 119/52 12/23/16 06:16 108 H 14 99/47 12/23/16 06:00 102 H 14 99/47 12/23/16 05:46 107 H 15 103/47 12/23/16 05:30 103 H 18 103/47 12/23/16 05:16 100 H 11 L 104/40 12/23/16 05:00 104 H 15 104/40 12/23/16 04:52 104 H 88/45 12/23/16 04:46 99 H 13 88/45 12/23/16 04:30 103 H 24 88/45 12/23/16 04:16 108 H 13 101/42 12/23/16 04:00 100.5 F H 103 H 100 H 14 101/42 12/23/16 03:46 103 H 12 97/43 12/23/16 03:30 103 H 14 97/43 12/23/16 03:16 102 H 15 100/42 12/23/16 03:00 102 H 11 L 100/42 12/23/16 02:46 101 H 12 92/43 12/23/16 02:30 100 H 11 L 92/43 12/23/16 02:28 97 H 19 12/23/16 02:16 98 H 18 100/43 12/23/16 02:04 103 H 19 12/23/16 02:00 99 H 24 100/43 12/23/16 01:46 100 H 25 H 90/45 12/23/16 01:30 101 H 19 90/45 12/23/16 01:16 100 H 12 95/44 12/23/16 01:00 101 H 10 L 95/44 12/23/16 00:46 99 H 15 97/44 12/23/16 00:30 102 H 16 97/44 12/23/16 00:16 100 H 13 106/42 12/23/16 00:10 101 H 106/42 12/23/16 00:00 100.7 F H 101 H 98 H 10 L 106/42 12/22/16 23:46 104 H 20 97/41 12/22/16 23:30 107 H 18 97/41 12/22/16 23:16 101 H 12 94/44 12/22/16 23:00 100 H 16 94/44 12/22/16 22:46 102 H 19 92/42 12/22/16 22:30 97 H 16 92/42 12/22/16 22:16 98 H 14 84/39 12/22/16 22:00 97 H 19 84/39 12/22/16 21:46 96 H 15 104/44 12/22/16 21:30 101 H 15 104/44 12/22/16 21:16 98 H 13 106/48 12/22/16 21:00 99 H 17 106/48 12/22/16 20:46 103 H 13 98/49 12/22/16 20:41 102 H 18 12/22/16 20:40 103 H 15 98/49 12/22/16 20:30 95 H 13 98/49 12/22/16 20:16 96 H 16 100/50 12/22/16 20:14 102 H 17 12/22/16 20:08 98 H 92/66 12/22/16 20:00 99.0 F 97 H 99 H 17 100/50 12/22/16 19:46 97 H 15 100/47 12/22/16 19:30 96 H 14 100/47 12/22/16 19:16 99 H 16 95/53 12/22/16 19:00 97 H 15 95/53 12/22/16 18:46 99 H 17 100/52 12/22/16 18:30 102 H 12 97/53 12/22/16 18:16 95 H 13 91/48 12/22/16 18:00 95 H 16 91/48 12/22/16 17:54 98 H 98/47 12/22/16 17:46 98 H 15 136/61 12/22/16 17:30 98 H 14 98/47 12/22/16 17:16 100 H 15 136/61 17 17:15 99.0 F 12/22/16 17:00 98 H 18 136/61 12/22/16 16:46 99 H 20 123/58 12/22/16 16:30 101 H 15 123/58 12/22/16 16:16 106 H 14 124/105 12/22/16 16:00 99 F 113 H 97 H 18 124/105 12/22/16 15:46 108 H 22 118/54 12/22/16 15:30 101 H 18 118/54 12/22/16 15:16 99 H 19 111/59 12/22/16 15:00 109 H 23 111/59 12/22/16 14:55 108 H 21 12/22/16 14:47 103 H 21 12/22/16 14:46 106 H 21 101/58 12/22/16 14:45 101 H 101/58 12/22/16 14:30 109 H 22 101/58 12/22/16 14:16 103 H 19 91/60 12/22/16 14:00 99.7 F H 109 H 21 91/60 12/22/16 13:46 110 H 17 99/60 12/22/16 13:45 111 H 109/73 12/22/16 13:30 104 H 19 96/60 12/22/16 13:16 103 H 17 99/60 12/22/16 13:15 104 H 112/76 12/22/16 13:00 102 H 20 99/60 12/22/16 12:46 106 H 18 95/56 12/22/16 12:45 98 H 102/72 12/22/16 12:30 102 H 15 95/56 12/22/16 12:16 110 H 16 90/51 12/22/16 12:15 102 H 95/65 12/22/16 12:00 99.7 F H 102 H 110 H 24 90/51 12/22/16 11:46 104 H 16 87/56 12/22/16 11:45 102 H 100/56 Pulse Ox Pulse Ox 12/23/16 11:31 95 12/23/16 11:30 12/23/16 11:25 95 12/23/16 11:15 12/23/16 11:00 12/23/16 10:45 12/23/16 10:30 12/23/16 10:15 12/23/16 10:00 12/23/16 09:46 12/23/16 09:45 12/23/16 09:30 12/23/16 09:16 92 12/23/16 09:00 12/23/16 08:46 12/23/16 08:30 98 12/23/16 08:16 100 12/23/16 08:10 12/23/16 08:00 99 12/23/16 07:58 12/23/16 07:46 99 12/23/16 07:30 96 12/23/16 07:16 96 12/23/16 07:00 98 12/23/16 06:46 12/23/16 06:30 92 12/23/16 06:16 91 12/23/16 06:00 91 12/23/16 05:46 92 12/23/16 05:30 91 12/23/16 05:16 94 12/23/16 05:00 95 12/23/16 04:52 95 12/23/16 04:46 94 12/23/16 04:30 93 12/23/16 04:16 93 12/23/16 04:00 93 12/23/16 03:46 92 12/23/16 03:30 92 12/23/16 03:16 93 12/23/16 03:00 93 12/23/16 02:46 94 12/23/16 02:30 93 12/23/16 02:28 12/23/16 02:16 95 12/23/16 02:04 12/23/16 02:00 96 12/23/16 01:46 96 12/23/16 01:30 96 12/23/16 01:16 97 12/23/16 01:00 12/23/16 00:46 12/23/16 00:30 12/23/16 00:16 97 12/23/16 00:10 98 12/23/16 00:00 99 12/22/16 23:46 12/22/16 23:30 12/22/16 23:16 12/22/16 23:00 12/22/16 22:46 12/22/16 22:30 12/22/16 22:16 12/22/16 22:00 100 12/22/16 21:46 100 12/22/16 21:30 98 12/22/16 21:16 99 12/22/16 21:00 99 12/22/16 20:46 98 12/22/16 20:41 12/22/16 20:40 97 12/22/16 20:30 100 12/22/16 20:16 100 12/22/16 20:14 12/22/16 20:08 100 12/22/16 20:00 88 12/22/16 19:46 100 12/22/16 19:30 100 12/22/16 19:16 100 12/22/16 19:00 100 12/22/16 18:46 100 12/22/16 18:30 99 12/22/16 18:16 99 12/22/16 18:00 100 12/22/16 17:54 100 12/22/16 17:46 100 12/22/16 17:30 100 12/22/16 17:16 99 12/22/16 17:15 12/22/16 17:00 99 12/22/16 16:46 99 12/22/16 16:30 98 12/22/16 16:16 98 12/22/16 16:00 99 12/22/16 15:46 96 12/22/16 15:30 97 12/22/16 15:16 96 12/22/16 15:00 96 12/22/16 14:55 12/22/16 14:47 12/22/16 14:46 97 12/22/16 14:45 96 12/22/16 14:30 96 12/22/16 14:16 96 12/22/16 14:00 97 97 12/22/16 13:46 97 12/22/16 13:45 12/22/16 13:30 97 12/22/16 13:16 96 12/22/16 13:15 12/22/16 13:00 97 12/22/16 12:46 97 12/22/16 12:45 12/22/16 12:30 97 12/22/16 12:16 95 12/22/16 12:15 12/22/16 12:00 98 12/22/16 11:46 96 12/22/16 11:45 - Physical Examination General: Other (intubated on mechanical ventilator) Cardiac: Positive: Reg Rate and Rhythm - Labs and Meds CBC 12/23/16 Range/Units 05:00 WBC 8.1 (4.5-11.0) K/mm3 RBC 2.67 L (3.65-5.03) M/mm3 Hgb 8.1 L (11.8-15.2) gm/dl Hct 23.7 L (35.5-45.6) % Plt Count 89 L (140-440) K/mm3 Comprehensive Metabolic Panel 12/23/16 Range/Units 05:00 Sodium 135 L (137-145) mmol/L Potassium 4.0 (3.6-5.0) mmol/L Chloride 96.1 L (98-107) mmol/L Carbon Dioxide 22 (22-30) mmol/L BUN 83 H (9-20) mg/dL Creatinine 5.3 H (0.8-1.5) mg/dL Glucose 126 H (75-100) mg/dL Calcium 7.0 L (8.4-10.2) mg/dL - Allied health notes Allied health notes reviewed: RT
--- NOTE | 2016-12-23 11:46 | Progress Note ---
Assessment and Plan - Patient Problems (1) Acute hypoxemic respiratory failure Current Visit: Yes Status: Acute Plan to address problem: - remains intubated - continue aspiration precautions - continue bronchodilators and pulmonary toilet - continue to wean FiO2 for sats > 94% - reduced set rate to 16/min - will begin PSV trials in am if tolerates bedside SBT (failed today) - adjust sedation to control tachypnea prn (2) Altered mental status Current Visit: Yes Status: Acute Qualifiers: Altered mental status type: A Coma depth: C Coma timing: C Plan to address problem: - seen by neurology - prn sedation / benzo's - multi-factorial really including azotemia - will follow neurology recommendations - overall improved (3) Septic shock Current Visit: Yes Status: Acute Plan to address problem: - complete AB's as per ID recs - r/o VTE re: fevers (dopplers negative) - continue to wean vasopressors for MAP > 60-65mmHg - IVF per nephrology at this point (4) Diabetes Current Visit: No Status: Chronic Qualifiers: Diabetes mellitus type: D Diabetes mellitus complication status: D Diabetes mellitus complication detail: D Diabetic retinopathy severity: D Proliferative retinopathy type: P Diabetes mellitus macular edema: D Diabetes mellitus penitentiary insulin use: D Laterality: L Chronic kidney disease stage: C Plan to address problem: - continue IV insulin therapy for strict glycemic control (5) BRITTANY (acute kidney injury) Current Visit: Yes Status: Deleted Plan to address problem: - nephrology on case - s/p vas-cath - HD/UF per nephrology recs (6) Subclavian artery injury Current Visit: Yes Status: Acute Qualifiers: Encounter type: E Laterality: L Plan to address problem: - seen by vascular team - phased extraction approach which may involve trip to central lab technician or O.R. - H&H holding (7) Discharge planning issues Current Visit: Yes Status: Acute Plan to address problem: - LTAC evaluation on hold for now - suspect he will need a tracheostomy especially re: initial failed extubation ...he is critically ill on life sustaining interventions including MVS & vasopressors and at high risk for further deterioration including ...35' CCT Subjective Date of service: 12/23/16 Principal diagnosis: Acute hypoxemic respiratory failure, shock Interval history: Seen and examined at bedside; 24 hour events reviewed; nursing and respiratory care staff consulted; no adverse overnight events reported to me; appears to deny pain when questioned; non gross bleeding; no emesis or overt aspiration; still requiring low dose vasopressor support in particular for dialysis Objective Vital Signs - 12hr 12/23/16 12/23/16 12/23/16 00:00 00:10 00:16 Temperature 100.7 F H Pulse Rate 101 H 101 H 100 H Pulse Rate [ Anterior Bilateral Throughout] Pulse Rate [ 98 H From Monitor] Respiratory 10 L 13 Rate Respiratory Rate [Anterior Bilateral Throughout] Blood Pressure 106/42 106/42 106/42 O2 Sat by Pulse 99 98 97 Oximetry 12/23/16 12/23/16 12/23/16 00:30 00:46 01:00 Temperature Pulse Rate 102 H 99 H 101 H Pulse Rate [ Anterior Bilateral Throughout] Pulse Rate [ From Monitor] Respiratory 16 15 10 L Rate Respiratory Rate [Anterior Bilateral Throughout] Blood Pressure 97/44 97/44 95/44 O2 Sat by Pulse Oximetry 12/23/16 12/23/16 12/23/16 01:16 01:30 01:46 Temperature Pulse Rate 100 H 101 H 100 H Pulse Rate [ Anterior Bilateral Throughout] Pulse Rate [ From Monitor] Respiratory 12 19 25 H Rate Respiratory Rate [Anterior Bilateral Throughout] Blood Pressure 95/44 90/45 90/45 O2 Sat by Pulse 97 96 96 Oximetry 12/23/16 12/23/16 12/23/16 02:00 02:04 02:16 Temperature Pulse Rate 99 H 98 H Pulse Rate [ 103 H Anterior Bilateral Throughout] Pulse Rate [ From Monitor] Respiratory 24 18 Rate Respiratory 19 Rate [Anterior Bilateral Throughout] Blood Pressure 100/43 100/43 O2 Sat by Pulse 96 95 Oximetry 12/23/16 12/23/16 12/23/16 02:28 02:30 02:46 Temperature Pulse Rate 100 H 101 H Pulse Rate [ 97 H Anterior Bilateral Throughout] Pulse Rate [ From Monitor] Respiratory 11 L 12 Rate Respiratory 19 Rate [Anterior Bilateral Throughout] Blood Pressure 92/43 92/43 O2 Sat by Pulse 93 94 Oximetry 12/23/16 12/23/16 12/23/16 03:00 03:16 03:30 Temperature Pulse Rate 102 H 102 H 103 H Pulse Rate [ Anterior Bilateral Throughout] Pulse Rate [ From Monitor] Respiratory 11 L 15 14 Rate Respiratory Rate [Anterior Bilateral Throughout] Blood Pressure 100/42 100/42 97/43 O2 Sat by Pulse 93 93 92 Oximetry 12/23/16 12/23/16 12/23/16 03:46 04:00 04:16 Temperature 100.5 F H Pulse Rate 103 H 103 H 108 H Pulse Rate [ Anterior Bilateral Throughout] Pulse Rate [ 100 H From Monitor] Respiratory 12 14 13 Rate Respiratory Rate [Anterior Bilateral Throughout] Blood Pressure 97/43 101/42 101/42 O2 Sat by Pulse 92 93 93 Oximetry 12/23/16 12/23/16 12/23/16 04:30 04:46 04:52 Temperature Pulse Rate 103 H 99 H 104 H Pulse Rate [ Anterior Bilateral Throughout] Pulse Rate [ From Monitor] Respiratory 24 13 Rate Respiratory Rate [Anterior Bilateral Throughout] Blood Pressure 88/45 88/45 88/45 O2 Sat by Pulse 93 94 95 Oximetry 12/23/16 12/23/16 12/23/16 05:00 05:16 05:30 Temperature Pulse Rate 104 H 100 H 103 H Pulse Rate [ Anterior Bilateral Throughout] Pulse Rate [ From Monitor] Respiratory 15 11 L 18 Rate Respiratory Rate [Anterior Bilateral Throughout] Blood Pressure 104/40 104/40 103/47 O2 Sat by Pulse 95 94 91 Oximetry 12/23/16 12/23/16 12/23/16 05:46 06:00 06:16 Temperature Pulse Rate 107 H 102 H 108 H Pulse Rate [ Anterior Bilateral Throughout] Pulse Rate [ From Monitor] Respiratory 15 14 14 Rate Respiratory Rate [Anterior Bilateral Throughout] Blood Pressure 103/47 99/47 99/47 O2 Sat by Pulse 92 91 91 Oximetry 12/23/16 12/23/16 12/23/16 06:30 06:46 07:00 Temperature Pulse Rate 107 H 103 H 103 H Pulse Rate [ Anterior Bilateral Throughout] Pulse Rate [ From Monitor] Respiratory 16 16 19 Rate Respiratory Rate [Anterior Bilateral Throughout] Blood Pressure 119/52 119/52 91/49 O2 Sat by Pulse 92 98 Oximetry 12/23/16 12/23/16 12/23/16 07:16 07:30 07:46 Temperature Pulse Rate 109 H 100 H 105 H Pulse Rate [ Anterior Bilateral Throughout] Pulse Rate [ From Monitor] Respiratory 17 19 15 Rate Respiratory Rate [Anterior Bilateral Throughout] Blood Pressure 99/47 95/49 95/49 O2 Sat by Pulse 96 96 99 Oximetry 12/23/16 12/23/16 12/23/16 07:58 08:00 08:10 Temperature 100 F H Pulse Rate 102 H Pulse Rate [ 103 H 105 H Anterior Bilateral Throughout] Pulse Rate [ From Monitor] Respiratory 15 Rate Respiratory 17 18 Rate [Anterior Bilateral Throughout] Blood Pressure 100/46 O2 Sat by Pulse 99 Oximetry 12/23/16 12/23/16 12/23/16 08:16 08:30 08:46 Temperature Pulse Rate 99 H 102 H 103 H Pulse Rate [ Anterior Bilateral Throughout] Pulse Rate [ From Monitor] Respiratory 16 20 16 Rate Respiratory Rate [Anterior Bilateral Throughout] Blood Pressure 95/49 99/50 100/46 O2 Sat by Pulse 100 98 Oximetry 12/23/16 12/23/16 12/23/16 09:00 09:16 09:30 Temperature Pulse Rate 99 H 100 H 100 H Pulse Rate [ Anterior Bilateral Throughout] Pulse Rate [ From Monitor] Respiratory 20 22 18 Rate Respiratory Rate [Anterior Bilateral Throughout] Blood Pressure 104/46 104/46 100/47 O2 Sat by Pulse 92 Oximetry 12/23/16 12/23/16 12/23/16 09:45 09:46 10:00 Temperature 100.0 F H Pulse Rate 98 H 100 H 103 H Pulse Rate [ Anterior Bilateral Throughout] Pulse Rate [ From Monitor] Respiratory 21 22 23 Rate Respiratory Rate [Anterior Bilateral Throughout] Blood Pressure 94/49 104/46 94/49 O2 Sat by Pulse Oximetry 12/23/16 12/23/16 12/23/16 10:15 10:30 10:45 Temperature Pulse Rate 96 H 95 H 94 H Pulse Rate [ Anterior Bilateral Throughout] Pulse Rate [ From Monitor] Respiratory 18 15 16 Rate Respiratory Rate [Anterior Bilateral Throughout] Blood Pressure 108/54 112/54 105/53 O2 Sat by Pulse Oximetry 12/23/16 12/23/16 12/23/16 11:00 11:15 11:25 Temperature 100.0 F H Pulse Rate 96 H 101 H 97 H Pulse Rate [ Anterior Bilateral Throughout] Pulse Rate [ From Monitor] Respiratory 16 22 Rate Respiratory Rate [Anterior Bilateral Throughout] Blood Pressure 112/55 112/55 110/57 O2 Sat by Pulse 95 Oximetry 12/23/16 12/23/16 11:30 11:31 Temperature 100.0 F H Pulse Rate 95 H 94 H Pulse Rate [ Anterior Bilateral Throughout] Pulse Rate [ From Monitor] Respiratory 22 Rate Respiratory Rate [Anterior Bilateral Throughout] Blood Pressure 110/57 110/57 O2 Sat by Pulse 95 Oximetry Constitutional: other (sedated) Eyes: non-icteric ENT: oropharynx moist Neck: supple, no lymphadenopathy, no JVD Effort: mildly labored Ascultation: Bilateral: diminished breath sounds, rales (basilar and scant) Cardiovascular: regular rate and rhythm Gastrointestinal: normoactive bowel sounds, hypoactive bowel sounds, soft, non- tender, non-distended Integumentary: normal Extremities: no cyanosis, pink and warm, pulses normal, no ischemia or petechiae Neurologic: non-focal exam (grossly), pupils equal and round, unable to assess Psychiatric: other (sedated) CBC and BMP: 12/24/16 04:50 12/24/16 04:50 ABG, PT/INR, D-dimer: ABG POC ABG pH 7.392 (7.35-7.45) 12/23/16 04:48 POC ABG pCO2 37.6 (35-45) 12/23/16 04:48 POC ABG pO2 123 (80-105) H 12/23/16 04:48 POC ABG HCO3 22.9 12/23/16 04:48 POC ABG Total CO2 24 12/23/16 04:48 POC ABG O2 Sat 99 12/23/16 04:48 PT/INR, D-dimer PT 18.8 Sec. (12.2-14.9) H 12/18/16 16:55 INR 1.58 (0.87-1.13) H 12/18/16 16:55 D-Dimer 586.01 ng/mlDDU (0-234) H 12/14/16 18:03 Abnormal lab findings: Abnormal Labs 12/07/16 12/07/16 12/07/16 00:35 05:30 05:30 WBC RBC Hgb Hct MCV MCHC RDW 13.0 L Plt Count 93 L Lymph % (Auto) [place] % (Auto) 11.2 H [place] # 1.1 H Baso # Seg Neutrophils % 71.3 H Seg Neutrophils # PT INR D-Dimer POC ABG pH POC ABG pCO2 POC ABG pO2 Sodium Potassium Chloride Carbon Dioxide BUN Creatinine 0.6 L Glucose 168 H POC Glucose Lactic Acid Calcium 7.8 L Phosphorus Magnesium Direct Bilirubin 0.7 H AST ALT Alkaline Phosphatase Total Creatine Kinase 343 H C-Reactive Protein Total Protein Albumin 2.6 L TSH Vancomycin Trough Crossmatch 12/07/16 12/07/16 12/07/16 06:58 16:41 18:30 WBC RBC Hgb Hct MCV MCHC RDW Plt Count Lymph % (Auto) [place] % (Auto) [place] # Baso # Seg Neutrophils % Seg Neutrophils # PT INR D-Dimer POC ABG pH POC ABG pCO2 POC ABG pO2 Sodium Potassium Chloride Carbon Dioxide BUN Creatinine Glucose POC Glucose 175 H Lactic Acid Calcium Phosphorus Magnesium Direct Bilirubin AST ALT Alkaline Phosphatase Total Creatine Kinase 242 H C-Reactive Protein 7.70 H Total Protein Albumin TSH Vancomycin Trough Crossmatch 12/09/16 12/10/16 12/10/16 11:58 06:05 12:24 WBC RBC Hgb Hct MCV MCHC RDW Plt Count Lymph % (Auto) [place] % (Auto) [place] # Baso # Seg Neutrophils % Seg Neutrophils # PT INR D-Dimer POC ABG pH 7.485 H POC ABG pCO2 POC ABG pO2 Sodium Potassium Chloride Carbon Dioxide BUN Creatinine Glucose POC Glucose 141 H 183 H Lactic Acid Calcium Phosphorus Magnesium Direct Bilirubin AST ALT Alkaline Phosphatase Total Creatine Kinase C-Reactive Protein Total Protein Albumin TSH Vancomycin Trough Crossmatch 12/10/16 12/10/16 12/11/16 17:47 23:21 06:10 WBC RBC Hgb Hct MCV MCHC RDW Plt Count Lymph % (Auto) [place] % (Auto) [place] # Baso # Seg Neutrophils % Seg Neutrophils # PT INR D-Dimer POC ABG pH POC ABG pCO2 POC ABG pO2 Sodium Potassium Chloride Carbon Dioxide BUN Creatinine Glucose POC Glucose 176 H 240 H 252 H Lactic Acid Calcium Phosphorus Magnesium Direct Bilirubin AST ALT Alkaline Phosphatase Total Creatine Kinase C-Reactive Protein Total Protein Albumin TSH Vancomycin Trough Crossmatch 12/11/16 12/11/16 12/11/16 08:29 09:14 11:37 WBC RBC Hgb Hct MCV MCHC RDW 13.1 L Plt Count Lymph % (Auto) [place] % (Auto) [place] # Baso # Seg Neutrophils % Seg Neutrophils # PT INR D-Dimer POC ABG pH POC ABG pCO2 POC ABG pO2 Sodium Potassium Chloride Carbon Dioxide BUN Creatinine Glucose POC Glucose 253 H 284 H Lactic Acid Calcium Phosphorus Magnesium Direct Bilirubin AST ALT Alkaline Phosphatase Total Creatine Kinase C-Reactive Protein Total Protein Albumin TSH Vancomycin Trough Crossmatch 12/11/16 12/11/1617 16:12 17:54 23:35 WBC RBC Hgb Hct MCV MCHC RDW Plt Count Lymph % (Auto) [place] % (Auto) [place] # Baso # Seg Neutrophils % Seg Neutrophils # PT INR D-Dimer POC ABG pH POC ABG pCO2 POC ABG pO2 Sodium Potassium Chloride Carbon Dioxide BUN 37 H Creatinine Glucose 258 H POC Glucose 227 H 264 H Lactic Acid Calcium 8.3 L Phosphorus Magnesium Direct Bilirubin AST ALT Alkaline Phosphatase Total Creatine Kinase C-Reactive Protein Total Protein Albumin 2.6 L TSH Vancomycin Trough Crossmatch 12/12/16 12/12/16 12/12/16 04:37 06:06 10:12 WBC RBC Hgb Hct MCV MCHC RDW Plt Count Lymph % (Auto) [place] % (Auto) [place] # Baso # Seg Neutrophils % Seg Neutrophils # PT INR D-Dimer POC ABG pH 7.500 H POC ABG pCO2 POC ABG pO2 69 L Sodium Potassium Chloride Carbon Dioxide BUN Creatinine Glucose POC Glucose 288 H Lactic Acid Calcium Phosphorus Magnesium Direct Bilirubin AST ALT Alkaline Phosphatase Total Creatine Kinase C-Reactive Protein Total Protein Albumin TSH Vancomycin Trough Crossmatch 12/12/16 12/12/16 12/12/16 13:08 17:46 23:31 WBC RBC Hgb Hct MCV MCHC RDW Plt Count Lymph % (Auto) [place] % (Auto) [place] # Baso # Seg Neutrophils % Seg Neutrophils # PT INR D-Dimer POC ABG pH POC ABG pCO2 POC ABG pO2 Sodium Potassium Chloride Carbon Dioxide BUN Creatinine Glucose POC Glucose 215 H 234 H 241 H Lactic Acid Calcium Phosphorus Magnesium Direct Bilirubin AST ALT Alkaline Phosphatase Total Creatine Kinase C-Reactive Protein Total Protein Albumin TSH Vancomycin Trough Crossmatch 12/13/16 12/13/16 12/13/16 05:38 11:44 17:32 WBC RBC Hgb Hct MCV MCHC RDW Plt Count Lymph % (Auto) [place] % (Auto) [place] # Baso # Seg Neutrophils % Seg Neutrophils # PT INR D-Dimer POC ABG pH POC ABG pCO2 POC ABG pO2 Sodium Potassium Chloride Carbon Dioxide BUN Creatinine Glucose POC Glucose 215 H 237 H 215 H Lactic Acid Calcium Phosphorus Magnesium Direct Bilirubin AST ALT Alkaline Phosphatase Total Creatine Kinase C-Reactive Protein Total Protein Albumin TSH Vancomycin Trough Crossmatch 12/14/16 12/14/16 12/14/16 00:22 05:40 12:03 WBC RBC Hgb Hct MCV MCHC RDW Plt Count Lymph % (Auto) [place] % (Auto) [place] # Baso # Seg Neutrophils % Seg Neutrophils # PT INR D-Dimer POC ABG pH POC ABG pCO2 POC ABG pO2 Sodium Potassium Chloride Carbon Dioxide BUN Creatinine Glucose POC Glucose 268 H 301 H 312 H Lactic Acid Calcium Phosphorus Magnesium Direct Bilirubin AST ALT Alkaline Phosphatase Total Creatine Kinase C-Reactive Protein Total Protein Albumin TSH Vancomycin Trough Crossmatch 12/14/16 12/14/16 12/14/16 18:03 18:03 18:03 WBC RBC Hgb Hct MCV MCHC RDW 12.9 L Plt Count Lymph % (Auto) [place] % (Auto) 8.0 H [place] # Baso # Seg Neutrophils % 72.4 H Seg Neutrophils # PT INR D-Dimer 586.01 H POC ABG pH POC ABG pCO2 POC ABG pO2 Sodium 150 H Potassium Chloride 109.1 H Carbon Dioxide BUN 50 H Creatinine Glucose 261 H POC Glucose Lactic Acid Calcium Phosphorus Magnesium Direct Bilirubin AST ALT Alkaline Phosphatase Total Creatine Kinase C-Reactive Protein Total Protein Albumin TSH Vancomycin Trough Crossmatch 12/14/16 12/14/16 12/14/16 18:30 21:55 23:59 WBC RBC Hgb Hct MCV MCHC RDW Plt Count Lymph % (Auto) [place] % (Auto) [place] # Baso # Seg Neutrophils % Seg Neutrophils # PT INR D-Dimer POC ABG pH POC ABG pCO2 POC ABG pO2 Sodium Potassium Chloride Carbon Dioxide BUN Creatinine Glucose POC Glucose 321 H 258 H 262 H Lactic Acid Calcium Phosphorus Magnesium Direct Bilirubin AST ALT Alkaline Phosphatase Total Creatine Kinase C-Reactive Protein Total Protein Albumin TSH Vancomycin Trough Crossmatch 12/15/16 12/15/16 12/15/16 05:28 06:04 09:15 WBC RBC Hgb Hct MCV MCHC RDW Plt Count Lymph % (Auto) [place] % (Auto) [place] # Baso # Seg Neutrophils % Seg Neutrophils # PT INR D-Dimer POC ABG pH POC ABG pCO2 POC ABG pO2 Sodium Potassium Chloride Carbon Dioxide BUN Creatinine Glucose POC Glucose 274 H 276 H Lactic Acid Calcium Phosphorus Magnesium Direct Bilirubin AST ALT Alkaline Phosphatase Total Creatine Kinase C-Reactive Protein Total Protein Albumin TSH 0.220 L Vancomycin Trough Crossmatch 12/15/16 12/15/16 12/15/16 11:59 13:40 18:06 WBC RBC Hgb Hct MCV MCHC RDW Plt Count Lymph % (Auto) [place] % (Auto) [place] # Baso # Seg Neutrophils % Seg Neutrophils # PT INR D-Dimer POC ABG pH POC ABG pCO2 33.3 L POC ABG pO2 70 L Sodium Potassium Chloride Carbon Dioxide BUN Creatinine Glucose POC Glucose 273 H Lactic Acid Calcium Phosphorus Magnesium Direct Bilirubin AST ALT Alkaline Phosphatase Total Creatine Kinase C-Reactive Protein Total Protein Albumin TSH 0.204 L Vancomycin Trough Crossmatch 12/15/16 12/15/16 12/16/16 18:14 21:26 02:08 WBC RBC Hgb Hct MCV MCHC RDW Plt Count Lymph % (Auto) [place] % (Auto) [place] # Baso # Seg Neutrophils % Seg Neutrophils # PT INR D-Dimer POC ABG pH 7.341 L POC ABG pCO2 POC ABG pO2 223 H Sodium Potassium Chloride Carbon Dioxide BUN Creatinine Glucose POC Glucose 234 H 371 H Lactic Acid Calcium Phosphorus Magnesium Direct Bilirubin AST ALT Alkaline Phosphatase Total Creatine Kinase C-Reactive Protein Total Protein Albumin TSH Vancomycin Trough Crossmatch 12/16/16 12/16/16 12/16/16 05:12 05:18 09:40 WBC RBC Hgb Hct MCV MCHC RDW Plt Count Lymph % (Auto) [place] % (Auto) [place] # Baso # Seg Neutrophils % Seg Neutrophils # PT INR D-Dimer POC ABG pH POC ABG pCO2 32.5 L POC ABG pO2 Sodium 154 H Potassium Chloride 116.8 H Carbon Dioxide 18 L D BUN 92 H Creatinine 3.0 H D Glucose 364 H POC Glucose 357 H Lactic Acid Calcium 8.2 L Phosphorus Magnesium Direct Bilirubin AST ALT Alkaline Phosphatase Total Creatine Kinase C-Reactive Protein Total Protein Albumin TSH Vancomycin Trough Crossmatch 12/16/16 12/16/16 12/16/16 13:40 18:27 18:34 WBC RBC Hgb Hct MCV MCHC RDW Plt Count Lymph % (Auto) [place] % (Auto) [place] # Baso # Seg Neutrophils % Seg Neutrophils # PT INR D-Dimer POC ABG pH POC ABG pCO2 POC ABG pO2 Sodium Potassium Chloride Carbon Dioxide BUN Creatinine Glucose POC Glucose 391 H 472 H Lactic Acid Calcium Phosphorus Magnesium Direct Bilirubin AST ALT Alkaline Phosphatase Total Creatine Kinase C-Reactive Protein Total Protein Albumin TSH Vancomycin Trough 33.7 H Crossmatch 12/17/16 12/17/16 12/17/16 00:38 01:54 05:53 WBC RBC Hgb Hct MCV MCHC RDW Plt Count Lymph % (Auto) [place] % (Auto) [place] # Baso # Seg Neutrophils % Seg Neutrophils # PT INR D-Dimer POC ABG pH 7.234 L POC ABG pCO2 34.5 L POC ABG pO2 50 L Sodium Potassium Chloride Carbon Dioxide BUN Creatinine Glucose POC Glucose 386 H 400 H Lactic Acid Calcium Phosphorus Magnesium Direct Bilirubin AST ALT Alkaline Phosphatase Total Creatine Kinase C-Reactive Protein Total Protein Albumin TSH Vancomycin Trough Crossmatch 12/17/16 12/17/16 12/17/16 06:45 06:45 07:45 WBC 12.3 H RBC Hgb 11.7 L Hct MCV 97 H D MCHC 31 L RDW Plt Count Lymph % (Auto) [place] % (Auto) 14.4 H [place] # 1.8 H Baso # 0.2 H Seg Neutrophils % Seg Neutrophils # 8.2 H PT INR D-Dimer POC ABG pH POC ABG pCO2 POC ABG pO2 Sodium Potassium 7.6 H* D Chloride 110.8 H Carbon Dioxide 14 L BUN 121 H Creatinine 5.4 H D Glucose 566 H* POC Glucose > 500 H Lactic Acid Calcium 6.2 L D Phosphorus Magnesium Direct Bilirubin AST 323 H ALT Alkaline Phosphatase 27 L Total Creatine Kinase C-Reactive Protein Total Protein Albumin 2.3 L TSH Vancomycin Trough Crossmatch 12/17/16 12/17/16 12/17/16 08:51 09:10 09:11 WBC RBC Hgb Hct MCV MCHC RDW Plt Count Lymph % (Auto) [place] % (Auto) [place] # Baso # Seg Neutrophils % Seg Neutrophils # PT INR D-Dimer POC ABG pH 7.113 L POC ABG pCO2 46.1 H POC ABG pO2 186 H Sodium Potassium Chloride Carbon Dioxide BUN Creatinine Glucose POC Glucose > 500 H Lactic Acid Calcium Phosphorus 9.5 H Magnesium 2.5 H Direct Bilirubin AST ALT Alkaline Phosphatase Total Creatine Kinase C-Reactive Protein Total Protein Albumin TSH Vancomycin Trough Crossmatch 12/17/16 12/17/16 12/17/16 10:18 10:50 11:17 WBC RBC Hgb Hct MCV MCHC RDW Plt Count Lymph % (Auto) [place] % (Auto) [place] # Baso # Seg Neutrophils % Seg Neutrophils # PT INR D-Dimer POC ABG pH POC ABG pCO2 POC ABG pO2 Sodium Potassium 6.1 H* Chloride 110.1 H Carbon Dioxide 14 L BUN 128 H Creatinine 5.5 H Glucose 580 H* POC Glucose > 500 H > 500 H Lactic Acid Calcium Phosphorus Magnesium Direct Bilirubin AST ALT Alkaline Phosphatase Total Creatine Kinase C-Reactive Protein Total Protein Albumin TSH Vancomycin Trough Crossmatch 12/17/16 12/17/16 12/17/16 12:09 12:30 13:36 WBC RBC Hgb Hct MCV MCHC RDW Plt Count Lymph % (Auto) [place] % (Auto) [place] # Baso # Seg Neutrophils % Seg Neutrophils # PT INR D-Dimer POC ABG pH POC ABG pCO2 POC ABG pO2 Sodium Potassium 5.6 H Chloride 110.4 H Carbon Dioxide 14 L BUN 138 H Creatinine 5.3 H Glucose 528 H* POC Glucose 428 H 426 H Lactic Acid Calcium 6.8 L D Phosphorus Magnesium Direct Bilirubin AST ALT Alkaline Phosphatase Total Creatine Kinase C-Reactive Protein Total Protein Albumin TSH Vancomycin Trough Crossmatch 12/17/16 12/17/16 12/17/16 14:11 14:25 14:45 WBC RBC Hgb Hct MCV MCHC RDW Plt Count Lymph % (Auto) [place] % (Auto) [place] # Baso # Seg Neutrophils % Seg Neutrophils # PT INR D-Dimer POC ABG pH 7.297 L POC ABG pCO2 34.2 L POC ABG pO2 114 H Sodium 146 H Potassium 5.3 H Chloride 109.3 H Carbon Dioxide 15 L BUN 128 H Creatinine 5.5 H Glucose 426 H POC Glucose 422 H Lactic Acid Calcium 6.7 L Phosphorus Magnesium Direct Bilirubin AST ALT Alkaline Phosphatase Total Creatine Kinase C-Reactive Protein Total Protein Albumin TSH Vancomycin Trough Crossmatch 12/17/16 12/17/16 12/17/16 15:07 16:03 16:56 WBC RBC Hgb Hct MCV MCHC RDW Plt Count Lymph % (Auto) [place] % (Auto) [place] # Baso # Seg Neutrophils % Seg Neutrophils # PT INR D-Dimer POC ABG pH POC ABG pCO2 POC ABG pO2 Sodium Potassium Chloride Carbon Dioxide BUN Creatinine Glucose POC Glucose 392 H 450 H 352 H Lactic Acid Calcium Phosphorus Magnesium Direct Bilirubin AST ALT Alkaline Phosphatase Total Creatine Kinase C-Reactive Protein Total Protein Albumin TSH Vancomycin Trough Crossmatch 12/17/16 12/17/16 12/17/16 18:00 18:10 18:38 WBC RBC Hgb Hct MCV MCHC RDW Plt Count Lymph % (Auto) [place] % (Auto) [place] # Baso # Seg Neutrophils % Seg Neutrophils # PT INR D-Dimer POC ABG pH POC ABG pCO2 POC ABG pO2 Sodium 147 H Potassium Chloride 109.7 H Carbon Dioxide 15 L BUN 140 H Creatinine 5.2 H Glucose 301 H POC Glucose 318 H 256 H Lactic Acid Calcium 6.5 L Phosphorus Magnesium Direct Bilirubin AST ALT Alkaline Phosphatase Total Creatine Kinase C-Reactive Protein Total Protein Albumin TSH Vancomycin Trough Crossmatch 12/17/16 12/17/16 12/17/16 19:31 20:00 20:44 WBC RBC Hgb Hct MCV MCHC RDW Plt Count Lymph % (Auto) [place] % (Auto) [place] # Baso # Seg Neutrophils % Seg Neutrophils # PT 17.7 H INR 1.46 H D-Dimer POC ABG pH POC ABG pCO2 30.5 L POC ABG pO2 134 H Sodium Potassium Chloride Carbon Dioxide BUN Creatinine Glucose POC Glucose 189 H Lactic Acid Calcium Phosphorus Magnesium Direct Bilirubin AST ALT Alkaline Phosphatase Total Creatine Kinase C-Reactive Protein Total Protein Albumin TSH Vancomycin Trough Crossmatch 12/17/16 12/17/16 12/18/16 21:59 23:18 00:15 WBC RBC Hgb Hct MCV MCHC RDW Plt Count Lymph % (Auto) [place] % (Auto) [place] # Baso # Seg Neutrophils % Seg Neutrophils # PT INR D-Dimer POC ABG pH POC ABG pCO2 POC ABG pO2 Sodium 147 H Potassium 5.2 H Chloride 107.9 H Carbon Dioxide 18 L BUN 143 H Creatinine 5.6 H Glucose 152 H POC Glucose 191 H 132 H Lactic Acid Calcium 6.3 L Phosphorus Magnesium Direct Bilirubin AST ALT Alkaline Phosphatase Total Creatine Kinase C-Reactive Protein Total Protein Albumin TSH Vancomycin Trough Crossmatch 12/18/16 12/18/16 12/18/16 00:18 01:08 02:35 WBC RBC Hgb Hct MCV MCHC RDW Plt Count Lymph % (Auto) [place] % (Auto) [place] # Baso # Seg Neutrophils % Seg Neutrophils # PT INR D-Dimer POC ABG pH POC ABG pCO2 POC ABG pO2 Sodium Potassium Chloride Carbon Dioxide BUN Creatinine Glucose POC Glucose 190 H 157 H 144 H Lactic Acid Calcium Phosphorus Magnesium Direct Bilirubin AST ALT Alkaline Phosphatase Total Creatine Kinase C-Reactive Protein Total Protein Albumin TSH Vancomycin Trough Crossmatch 12/18/16 12/18/16 12/18/16 03:14 04:11 05:07 WBC RBC Hgb Hct MCV MCHC RDW Plt Count Lymph % (Auto) [place] % (Auto) [place] # Baso # Seg Neutrophils % Seg Neutrophils # PT INR D-Dimer POC ABG pH POC ABG pCO2 POC ABG pO2 Sodium Potassium Chloride Carbon Dioxide BUN Creatinine Glucose POC Glucose 117 H 108 H 122 H Lactic Acid Calcium Phosphorus Magnesium Direct Bilirubin AST ALT Alkaline Phosphatase Total Creatine Kinase C-Reactive Protein Total Protein Albumin TSH Vancomycin Trough Crossmatch 12/18/16 12/18/16 12/18/16 05:23 06:07 06:07 WBC RBC 3.18 L Hgb 9.6 L Hct 29.0 L D MCV MCHC RDW Plt Count 130 L Lymph % (Auto) [place] % (Auto) [place] # Baso # Seg Neutrophils % Seg Neutrophils # PT INR D-Dimer POC ABG pH 7.485 H POC ABG pCO2 27.5 L POC ABG pO2 275 H Sodium Potassium Chloride Carbon Dioxide BUN Creatinine Glucose POC Glucose Lactic Acid 3.2 H* Calcium Phosphorus Magnesium Direct Bilirubin AST ALT Alkaline Phosphatase Total Creatine Kinase C-Reactive Protein Total Protein Albumin TSH Vancomycin Trough Crossmatch 12/18/16 12/18/16 12/18/16 06:08 06:22 07:26 WBC RBC Hgb Hct MCV MCHC RDW Plt Count Lymph % (Auto) [place] % (Auto) [place] # Baso # Seg Neutrophils % Seg Neutrophils # PT 18.3 H INR 1.52 H D-Dimer POC ABG pH POC ABG pCO2 POC ABG pO2 Sodium Potassium Chloride Carbon Dioxide BUN Creatinine Glucose POC Glucose 159 H 198 H Lactic Acid Calcium Phosphorus Magnesium Direct Bilirubin AST ALT Alkaline Phosphatase Total Creatine Kinase C-Reactive Protein Total Protein Albumin TSH Vancomycin Trough Crossmatch 12/18/16 12/18/16 12/18/16 08:27 09:00 09:30 WBC RBC Hgb Hct MCV MCHC RDW Plt Count Lymph % (Auto) [place] % (Auto) [place] # Baso # Seg Neutrophils % Seg Neutrophils # PT INR D-Dimer POC ABG pH POC ABG pCO2 POC ABG pO2 Sodium 147 H Potassium 5.5 H Chloride Carbon Dioxide 17 L BUN 145 H Creatinine 6.4 H Glucose 213 H POC Glucose 220 H 216 H Lactic Acid Calcium 6.0 L Phosphorus Magnesium Direct Bilirubin AST ALT Alkaline Phosphatase Total Creatine Kinase C-Reactive Protein Total Protein Albumin TSH Vancomycin Trough Crossmatch 12/18/16 12/18/16 12/18/16 10:29 11:11 12:05 WBC RBC Hgb Hct MCV MCHC RDW Plt Count Lymph % (Auto) [place] % (Auto) [place] # Baso # Seg Neutrophils % Seg Neutrophils # PT INR D-Dimer POC ABG pH POC ABG pCO2 POC ABG pO2 Sodium Potassium Chloride Carbon Dioxide BUN Creatinine Glucose POC Glucose 248 H 214 H 165 H Lactic Acid Calcium Phosphorus Magnesium Direct Bilirubin AST ALT Alkaline Phosphatase Total Creatine Kinase C-Reactive Protein Total Protein Albumin TSH Vancomycin Trough Crossmatch 12/18/16 12/18/16 12/18/16 13:06 13:59 14:45 WBC RBC Hgb Hct MCV MCHC RDW Plt Count Lymph % (Auto) [place] % (Auto) [place] # Baso # Seg Neutrophils % Seg Neutrophils # PT INR D-Dimer POC ABG pH POC ABG pCO2 29.2 L POC ABG pO2 Sodium Potassium Chloride Carbon Dioxide BUN Creatinine Glucose POC Glucose 133 H 116 H Lactic Acid Calcium Phosphorus Magnesium Direct Bilirubin AST ALT Alkaline Phosphatase Total Creatine Kinase C-Reactive Protein Total Protein Albumin TSH Vancomycin Trough Crossmatch 12/18/16 12/18/16 12/18/16 14:52 15:14 15:52 WBC RBC Hgb Hct MCV MCHC RDW Plt Count Lymph % (Auto) [place] % (Auto) [place] # Baso # Seg Neutrophils % Seg Neutrophils # PT INR D-Dimer POC ABG pH POC ABG pCO2 24.2 L POC ABG pO2 Sodium Potassium Chloride Carbon Dioxide BUN Creatinine Glucose POC Glucose 139 H 146 H Lactic Acid Calcium Phosphorus Magnesium Direct Bilirubin AST ALT Alkaline Phosphatase Total Creatine Kinase C-Reactive Protein Total Protein Albumin TSH Vancomycin Trough Crossmatch 12/18/16 12/18/16 12/18/16 16:55 16:55 17:18 WBC RBC Hgb 11.4 L Hct 33.9 L MCV MCHC RDW Plt Count Lymph % (Auto) [place] % (Auto) [place] # Baso # Seg Neutrophils % Seg Neutrophils # PT 18.8 H INR 1.58 H D-Dimer POC ABG pH POC ABG pCO2 POC ABG pO2 Sodium Potassium Chloride Carbon Dioxide BUN Creatinine Glucose POC Glucose 144 H Lactic Acid Calcium Phosphorus Magnesium Direct Bilirubin AST ALT Alkaline Phosphatase Total Creatine Kinase C-Reactive Protein Total Protein Albumin TSH Vancomycin Trough Crossmatch 12/18/16 12/18/16 12/18/16 18:12 18:21 20:17 WBC RBC Hgb Hct MCV MCHC RDW Plt Count Lymph % (Auto) [place] % (Auto) [place] # Baso # Seg Neutrophils % Seg Neutrophils # PT INR D-Dimer POC ABG pH POC ABG pCO2 POC ABG pO2 Sodium Potassium Chloride Carbon Dioxide BUN Creatinine Glucose POC Glucose 147 H 120 H Lactic Acid Calcium Phosphorus 5.4 H D Magnesium Direct Bilirubin AST ALT Alkaline Phosphatase Total Creatine Kinase C-Reactive Protein Total Protein Albumin TSH Vancomycin Trough Crossmatch 12/18/16 12/19/16 12/19/16 22:52 00:56 02:09 WBC RBC Hgb Hct MCV MCHC RDW Plt Count Lymph % (Auto) [place] % (Auto) [place] # Baso # Seg Neutrophils % Seg Neutrophils # PT INR D-Dimer POC ABG pH POC ABG pCO2 POC ABG pO2 Sodium Potassium Chloride Carbon Dioxide BUN Creatinine Glucose POC Glucose 124 H 168 H 140 H Lactic Acid Calcium Phosphorus Magnesium Direct Bilirubin AST ALT Alkaline Phosphatase Total Creatine Kinase C-Reactive Protein Total Protein Albumin TSH Vancomycin Trough Crossmatch 12/19/16 12/19/16 12/19/16 04:20 04:20 04:53 WBC 11.8 H RBC Hgb 11.7 L Hct 34.7 L MCV MCHC RDW Plt Count Lymph % (Auto) 11.3 L [place] % (Auto) [place] # Baso # Seg Neutrophils % 83.9 H Seg Neutrophils # 9.9 H PT INR D-Dimer POC ABG pH POC ABG pCO2 POC ABG pO2 Sodium Potassium Chloride Carbon Dioxide 20 L BUN 108 H Creatinine 4.9 H Glucose 131 H POC Glucose 112 H Lactic Acid Calcium 6.3 L Phosphorus Magnesium Direct Bilirubin AST 1058 H ALT 133 H Alkaline Phosphatase Total Creatine Kinase C-Reactive Protein Total Protein 6.1 L Albumin 2.3 L TSH Vancomycin Trough Crossmatch 12/19/16 12/19/16 12/19/16 05:42 06:30 07:37 WBC RBC Hgb Hct MCV MCHC RDW Plt Count Lymph % (Auto) [place] % (Auto) [place] # Baso # Seg Neutrophils % Seg Neutrophils # PT INR D-Dimer POC ABG pH 7.539 H POC ABG pCO2 26.0 L POC ABG pO2 Sodium Potassium Chloride Carbon Dioxide BUN Creatinine Glucose POC Glucose 119 H 126 H Lactic Acid Calcium Phosphorus Magnesium Direct Bilirubin AST ALT Alkaline Phosphatase Total Creatine Kinase C-Reactive Protein Total Protein Albumin TSH Vancomycin Trough Crossmatch 12/19/16 12/19/16 12/19/16 09:59 12:38 14:25 WBC RBC Hgb Hct MCV MCHC RDW Plt Count Lymph % (Auto) [place] % (Auto) [place] # Baso # Seg Neutrophils % Seg Neutrophils # PT INR D-Dimer POC ABG pH POC ABG pCO2 POC ABG pO2 Sodium Potassium Chloride Carbon Dioxide BUN Creatinine Glucose POC Glucose 118 H 139 H 143 H Lactic Acid Calcium Phosphorus Magnesium Direct Bilirubin AST ALT Alkaline Phosphatase Total Creatine Kinase C-Reactive Protein Total Protein Albumin TSH Vancomycin Trough Crossmatch 12/19/16 12/19/16 12/19/16 16:50 18:01 23:04 WBC RBC Hgb Hct MCV MCHC RDW Plt Count Lymph % (Auto) [place] % (Auto) [place] # Baso # Seg Neutrophils % Seg Neutrophils # PT INR D-Dimer POC ABG pH POC ABG pCO2 POC ABG pO2 Sodium Potassium Chloride Carbon Dioxide BUN Creatinine Glucose POC Glucose 253 H 259 H 200 H Lactic Acid Calcium Phosphorus Magnesium Direct Bilirubin AST ALT Alkaline Phosphatase Total Creatine Kinase C-Reactive Protein Total Protein Albumin TSH Vancomycin Trough Crossmatch 12/20/16 12/20/16 12/20/16 00:58 02:57 04:09 WBC RBC Hgb Hct MCV MCHC RDW Plt Count Lymph % (Auto) [place] % (Auto) [place] # Baso # Seg Neutrophils % Seg Neutrophils # PT INR D-Dimer POC ABG pH POC ABG pCO2 POC ABG pO2 Sodium Potassium Chloride Carbon Dioxide BUN Creatinine Glucose POC Glucose 210 H 162 H 109 H Lactic Acid Calcium Phosphorus Magnesium Direct Bilirubin AST ALT Alkaline Phosphatase Total Creatine Kinase C-Reactive Protein Total Protein Albumin TSH Vancomycin Trough Crossmatch 12/20/16 12/20/16 12/20/16 05:11 05:57 07:41 WBC RBC Hgb Hct MCV MCHC RDW Plt Count Lymph % (Auto) [place] % (Auto) [place] # Baso # Seg Neutrophils % Seg Neutrophils # PT INR D-Dimer POC ABG pH 7.560 H POC ABG pCO2 28.2 L POC ABG pO2 Sodium Potassium Chloride Carbon Dioxide BUN Creatinine Glucose POC Glucose 121 H 170 H Lactic Acid Calcium Phosphorus Magnesium Direct Bilirubin AST ALT Alkaline Phosphatase Total Creatine Kinase C-Reactive Protein Total Protein Albumin TSH Vancomycin Trough Crossmatch 12/20/16 12/20/16 12/20/16 08:30 08:30 10:06 WBC RBC 3.36 L Hgb 10.1 L Hct 29.5 L MCV MCHC RDW Plt Count 114 L Lymph % (Auto) [place] % (Auto) [place] # Baso # Seg Neutrophils % Seg Neutrophils # PT INR D-Dimer POC ABG pH POC ABG pCO2 POC ABG pO2 Sodium Potassium Chloride 95.1 L Carbon Dioxide BUN 78 H Creatinine 5.0 H Glucose 181 H POC Glucose 155 H Lactic Acid Calcium 6.2 L Phosphorus Magnesium Direct Bilirubin AST ALT Alkaline Phosphatase Total Creatine Kinase C-Reactive Protein Total Protein Albumin TSH Vancomycin Trough Crossmatch 12/20/16 12/20/16 12/20/16 11:55 14:44 16:24 WBC RBC Hgb Hct MCV MCHC RDW Plt Count Lymph % (Auto) [place] % (Auto) [place] # Baso # Seg Neutrophils % Seg Neutrophils # PT INR D-Dimer POC ABG pH POC ABG pCO2 POC ABG pO2 Sodium Potassium Chloride Carbon Dioxide BUN Creatinine Glucose POC Glucose 124 H 171 H 143 H Lactic Acid Calcium Phosphorus Magnesium Direct Bilirubin AST ALT Alkaline Phosphatase Total Creatine Kinase C-Reactive Protein Total Protein Albumin TSH Vancomycin Trough Crossmatch 12/20/16 12/20/16 12/20/16 18:14 20:25 22:29 WBC RBC Hgb Hct MCV MCHC RDW Plt Count Lymph % (Auto) [place] % (Auto) [place] # Baso # Seg Neutrophils % Seg Neutrophils # PT INR D-Dimer POC ABG pH POC ABG pCO2 POC ABG pO2 Sodium Potassium Chloride Carbon Dioxide BUN Creatinine Glucose POC Glucose 144 H 130 H 146 H Lactic Acid Calcium Phosphorus Magnesium Direct Bilirubin AST ALT Alkaline Phosphatase Total Creatine Kinase C-Reactive Protein Total Protein Albumin TSH Vancomycin Trough Crossmatch 12/21/16 12/21/16 12/21/16 00:30 03:06 04:31 WBC RBC Hgb Hct MCV MCHC RDW Plt Count Lymph % (Auto) [place] % (Auto) [place] # Baso # Seg Neutrophils % Seg Neutrophils # PT INR D-Dimer POC ABG pH POC ABG pCO2 31.3 L POC ABG pO2 Sodium Potassium Chloride Carbon Dioxide BUN Creatinine Glucose POC Glucose 185 H 115 H Lactic Acid Calcium Phosphorus Magnesium Direct Bilirubin AST ALT Alkaline Phosphatase Total Creatine Kinase C-Reactive Protein Total Protein Albumin TSH Vancomycin Trough Crossmatch 12/21/16 12/21/16 12/21/16 04:45 06:38 06:41 WBC RBC Hgb Hct MCV MCHC RDW Plt Count Lymph % (Auto) [place] % (Auto) [place] # Baso # Seg Neutrophils % Seg Neutrophils # PT INR D-Dimer POC ABG pH POC ABG pCO2 POC ABG pO2 Sodium Potassium Chloride Carbon Dioxide BUN Creatinine Glucose POC Glucose 145 H 165 H 145 H Lactic Acid Calcium Phosphorus Magnesium Direct Bilirubin AST ALT Alkaline Phosphatase Total Creatine Kinase C-Reactive Protein Total Protein Albumin TSH Vancomycin Trough Crossmatch 12/21/16 12/21/16 12/21/16 09:35 09:35 10:14 WBC 11.8 H RBC 3.52 L Hgb 10.8 L Hct 31.3 L MCV MCHC RDW 13.0 L Plt Count 130 L Lymph % (Auto) [place] % (Auto) [place] # Baso # Seg Neutrophils % Seg Neutrophils # PT INR D-Dimer POC ABG pH POC ABG pCO2 POC ABG pO2 Sodium Potassium Chloride Carbon Dioxide 21 L BUN 98 H Creatinine 6.2 H Glucose 133 H POC Glucose 178 H Lactic Acid Calcium 6.7 L Phosphorus Magnesium Direct Bilirubin AST ALT Alkaline Phosphatase Total Creatine Kinase C-Reactive Protein Total Protein Albumin TSH Vancomycin Trough Crossmatch 12/21/16 12/21/16 12/21/16 12:22 14:28 15:59 WBC RBC Hgb Hct MCV MCHC RDW Plt Count Lymph % (Auto) [place] % (Auto) [place] # Baso # Seg Neutrophils % Seg Neutrophils # PT INR D-Dimer POC ABG pH POC ABG pCO2 POC ABG pO2 Sodium Potassium Chloride Carbon Dioxide BUN Creatinine Glucose POC Glucose 191 H 139 H 182 H Lactic Acid Calcium Phosphorus Magnesium Direct Bilirubin AST ALT Alkaline Phosphatase Total Creatine Kinase C-Reactive Protein Total Protein Albumin TSH Vancomycin Trough Crossmatch 12/21/16 12/21/16 12/21/16 18:23 20:19 22:02 WBC RBC Hgb Hct MCV MCHC RDW Plt Count Lymph % (Auto) [place] % (Auto) [place] # Baso # Seg Neutrophils % Seg Neutrophils # PT INR D-Dimer POC ABG pH POC ABG pCO2 POC ABG pO2 Sodium Potassium Chloride Carbon Dioxide BUN Creatinine Glucose POC Glucose 167 H 134 H 163 H Lactic Acid Calcium Phosphorus Magnesium Direct Bilirubin AST ALT Alkaline Phosphatase Total Creatine Kinase C-Reactive Protein Total Protein Albumin TSH Vancomycin Trough Crossmatch 12/22/16 12/22/16 12/22/16 00:09 01:55 04:00 WBC 12.0 H RBC 2.93 L Hgb 8.9 L Hct 26.1 L MCV MCHC RDW 13.0 L Plt Count 103 L Lymph % (Auto) [place] % (Auto) [place] # Baso # Seg Neutrophils % Seg Neutrophils # PT INR D-Dimer POC ABG pH POC ABG pCO2 POC ABG pO2 Sodium Potassium Chloride Carbon Dioxide BUN Creatinine Glucose POC Glucose 154 H 111 H Lactic Acid Calcium Phosphorus Magnesium Direct Bilirubin AST ALT Alkaline Phosphatase Total Creatine Kinase C-Reactive Protein Total Protein Albumin TSH Vancomycin Trough Crossmatch 12/22/16 12/22/16 12/22/16 04:00 04:09 04:48 WBC RBC Hgb Hct MCV MCHC RDW Plt Count Lymph % (Auto) [place] % (Auto) [place] # Baso # Seg Neutrophils % Seg Neutrophils # PT INR D-Dimer POC ABG pH POC ABG pCO2 32.2 L POC ABG pO2 42 L Sodium Potassium Chloride 97.0 L Carbon Dioxide 20 L BUN 119 H Creatinine 6.9 H Glucose 143 H POC Glucose 151 H Lactic Acid Calcium 6.3 L Phosphorus Magnesium Direct Bilirubin AST ALT Alkaline Phosphatase Total Creatine Kinase C-Reactive Protein Total Protein Albumin TSH Vancomycin Trough Crossmatch 12/22/16 12/22/16 12/22/16 05:22 08:09 09:34 WBC RBC Hgb 8.9 L Hct 26.5 L MCV MCHC RDW Plt Count 96 L Lymph % (Auto) [place] % (Auto) [place] # Baso # Seg Neutrophils % Seg Neutrophils # PT INR D-Dimer POC ABG pH POC ABG pCO2 34.7 L POC ABG pO2 Sodium Potassium Chloride Carbon Dioxide BUN Creatinine Glucose POC Glucose 113 H Lactic Acid Calcium Phosphorus Magnesium Direct Bilirubin AST ALT Alkaline Phosphatase Total Creatine Kinase C-Reactive Protein Total Protein Albumin TSH Vancomycin Trough Crossmatch 12/22/16 12/22/16 12/22/16 12:26 14:05 16:25 WBC RBC Hgb Hct MCV MCHC RDW Plt Count Lymph % (Auto) [place] % (Auto) [place] # Baso # Seg Neutrophils % Seg Neutrophils # PT INR D-Dimer POC ABG pH POC ABG pCO2 POC ABG pO2 Sodium Potassium Chloride Carbon Dioxide BUN Creatinine Glucose POC Glucose 190 H 160 H 106 H Lactic Acid Calcium Phosphorus Magnesium Direct Bilirubin AST ALT Alkaline Phosphatase Total Creatine Kinase C-Reactive Protein Total Protein Albumin TSH Vancomycin Trough Crossmatch 12/22/16 12/22/16 12/23/16 20:26 22:22 00:04 WBC RBC Hgb Hct MCV MCHC RDW Plt Count Lymph % (Auto) [place] % (Auto) [place] # Baso # Seg Neutrophils % Seg Neutrophils # PT INR D-Dimer POC ABG pH POC ABG pCO2 POC ABG pO2 Sodium Potassium Chloride Carbon Dioxide BUN Creatinine Glucose POC Glucose 106 H 154 H 171 H Lactic Acid Calcium Phosphorus Magnesium Direct Bilirubin AST ALT Alkaline Phosphatase Total Creatine Kinase C-Reactive Protein Total Protein Albumin TSH Vancomycin Trough Crossmatch 12/23/16 12/23/16 12/23/16 04:48 05:00 05:00 WBC RBC 2.67 L Hgb 8.1 L Hct 23.7 L MCV MCHC RDW 13.0 L Plt Count 89 L Lymph % (Auto) [place] % (Auto) [place] # Baso # Seg Neutrophils % Seg Neutrophils # PT INR D-Dimer POC ABG pH POC ABG pCO2 POC ABG pO2 123 H Sodium 135 L Potassium Chloride 96.1 L Carbon Dioxide BUN 83 H Creatinine 5.3 H Glucose 126 H POC Glucose Lactic Acid Calcium 7.0 L Phosphorus Magnesium Direct Bilirubin AST ALT Alkaline Phosphatase Total Creatine Kinase C-Reactive Protein Total Protein Albumin TSH Vancomycin Trough Crossmatch 12/23/16 07:30 WBC RBC Hgb Hct MCV MCHC RDW Plt Count Lymph % (Auto) [place] % (Auto) [place] # Baso # Seg Neutrophils % Seg Neutrophils # PT INR D-Dimer POC ABG pH POC ABG pCO2 POC ABG pO2 Sodium Potassium Chloride Carbon Dioxide BUN Creatinine Glucose POC Glucose Lactic Acid Calcium Phosphorus Magnesium Direct Bilirubin AST ALT Alkaline Phosphatase Total Creatine Kinase C-Reactive Protein Total Protein Albumin TSH Vancomycin Trough Crossmatch See Detail Chest x-ray: image reviewed Allied health notes reviewed: RT
[2016-12-23] MEDS: PROCRIT IV PRN (12:01)
[2016-12-23] MEDS: LEVOPHED 8 MG in NACL 0.9% 250ML 242 ML IV SCH (12:05)
[2016-12-23] MEDS: HEPARIN IV PRN (13:51)
[2016-12-23] MEDS: Centrum Liq PO SCH (15:47)
[2016-12-23] MEDS: PROTONIX PO SCH (15:48)
[2016-12-23] MEDS: REGLAN IV SCH (15:48)
--- NOTE | 2016-12-23 15:48 | Event Note ---
Date: 12/23/16 Pt for removal of TLC from right sca under fluoroscopic guidance. He remains hypotensive on vasopressor support. This appears to be exacerbated on days he requires dialysis. He is currently scheduled to be on dialysis daily x3 days ( currently day 2 of 3). We'll tentatively plan on his procedure for .
[2016-12-23] MEDS: FOLVITE PO SCH (15:49)
[2016-12-23] MEDS: BABY ASPIRIN PO SCH (15:49)
[2016-12-23] MEDS: VITAMIN B-1 PO SCH (15:51)
[2016-12-23] MEDS: ZYVOX 600MG/300ML 600 MG/300 ML BAG IV SCH (15:55)
[2016-12-23] MEDS: LEVEMIR SUB-Q SCH (15:56)
--- NOTE | 2016-12-23 19:51 | Progress Note ---
Subjective Date of service: 12/23/16 Principal diagnosis: Acute hypoxemic respiratory failure, shock Interval history: Fever improving. PHYSICAL EXAM Vital signs - temp 102. chest - mild b/l rhonchi cvs - s1s2 abd - bs+ LABS See lab section ASSESSMENT 1. Pneumonia 2. Acute respiratory failure 3. Encephalopathy 4. CHF RECOMMENDATION 1. cbc/bmp in am 2. will d/c iv abx Objective - Constitutional Vitals: Vital Signs Temp Pulse Resp BP Pulse Ox 100.8 F H 89 22 130/58 99 12/23/16 16:00 12/23/16 19:15 12/23/16 19:15 12/23/16 19:15 12/23/16 19:15 Temperature -Last 24 Hours Temperature 100.8 F Temperature 99.3 F Temperature 100.4 F Temperature 99.3 F Temperature 100.4 F Temperature 100.0 F Temperature 100.0 F Temperature 100.0 F Temperature 100.0 F Temperature 100 F Temperature 100.5 F Temperature 100.7 F Temperature 99.0 F - Labs CBC & Chem 7: 12/23/16 05:00 12/23/16 05:00 Labs: Abnormal lab results 12/22/16 12/22/16 12/23/16 Range/Units 20:26 22:22 00:04 RBC (3.65-5.03) M/mm3 Hgb (11.8-15.2) gm/dl Hct (35.5-45.6) % RDW (13.2-15.2) % Plt Count (140-440) K/mm3 POC ABG pO2 (80-105) Sodium (137-145) mmol/L Chloride (98-107) mmol/L BUN (9-20) mg/dL Creatinine (0.8-1.5) mg/dL Glucose (75-100) mg/dL POC Glucose 106 H 154 H 171 H (70-105) Calcium (8.4-10.2) mg/dL Crossmatch 12/23/16 12/23/16 12/23/16 Range/Units 04:12 04:48 05:00 RBC 2.67 L (3.65-5.03) M/mm3 Hgb 8.1 L (11.8-15.2) gm/dl Hct 23.7 L (35.5-45.6) % RDW 13.0 L (13.2-15.2) % Plt Count 89 L (140-440) K/mm3 POC ABG pO2 123 H (80-105) Sodium (137-145) mmol/L Chloride (98-107) mmol/L BUN (9-20) mg/dL Creatinine (0.8-1.5) mg/dL Glucose (75-100) mg/dL POC Glucose 136 H (70-105) Calcium (8.4-10.2) mg/dL Crossmatch 12/23/16 12/23/16 12/23/16 Range/Units 05:00 07:30 11:31 RBC (3.65-5.03) M/mm3 Hgb (11.8-15.2) gm/dl Hct (35.5-45.6) % RDW (13.2-15.2) % Plt Count (140-440) K/mm3 POC ABG pO2 (80-105) Sodium 135 L (137-145) mmol/L Chloride 96.1 L (98-107) mmol/L BUN 83 H (9-20) mg/dL Creatinine 5.3 H (0.8-1.5) mg/dL Glucose 126 H (75-100) mg/dL POC Glucose 142 H (70-105) Calcium 7.0 L (8.4-10.2) mg/dL Crossmatch See Detail
[2016-12-23] MEDS: DIFLUCAN 200 MG/100 ML BAG IV SCH (21:08)
[2016-12-23] MEDS: BACTRIM DS PO SCH (21:09)
[2016-12-23] MEDS: ZOCOR PO SCH (21:10)
[2016-12-24] MEDS: DUONEB 0.5 MG-3 MG/3 ML SOLN IH SCH ×4 (03:51→20:39)
[2016-12-24 05:11] LABS: Hematocrit 26.9 % (35.5-45.6); Hemoglobin 9.3 gm/dl (11.8-15.2)
[2016-12-24 05:29] LABS: BUN/Creatinine Ratio 13.86; Calcium 7.4 mg/dL (8.4-10.2); Chloride 94.6 mmol/L (98-107); Potassium 3.8 mmol/L (3.6-5.0)
[2016-12-24] MEDS: HEPARIN SUB-Q SCH ×3 (05:57→22:30)
[2016-12-24] MEDS: REGLAN IV SCH ×3 (05:59→22:29)
[2016-12-24] MEDS: Centrum Liq PO SCH (09:44)
[2016-12-24] MEDS: BABY ASPIRIN PO SCH (09:45)
[2016-12-24] MEDS: FOLVITE PO SCH (09:45)
[2016-12-24] MEDS: VITAMIN B-1 PO SCH (09:45)
[2016-12-24] MEDS: PROTONIX PO SCH (09:45)
[2016-12-24] MEDS: BACTRIM DS PO SCH ×2 (09:45→22:29)
--- NOTE | 2016-12-24 09:51 | Progress Note ---
Assessment and Plan Assessment and plan: Septic shock due to pneumonia.. Continue supportive care, IV fluid, antibiotics Zosyn iv, Zyvox, fluconazole . Still on Levophed Acute Respiratory failure due to Pneumonia. He is intubated on ventilator. Pulmonology following. Acute metabolic encephalopathy. CT head unremarkable. Neurology following. Acute on chronic systolic CHF. EF 30% Cont aspirin, statin. Beta blockers on hold for now. cardiology following. Acute kidney Injury secondary to acute tubular necrosis from septic shock. He has been started on hemodialysis. Nephrology following. Cr 4.4 Hyperkalemia. This is now resolved. DKA with diabetes mellitus type 2. Now on Levemir Pneumonia due to strep pneumonia Bacteremia.One out of two cx positive for micrococcus. Continue Zosyn and Zyvox. Sinus tachycardia. due to septic shock. Lopressor iv prn Hypernatremia. Now resolved. Hyponatremia. Sodium 134 today. Alcohol abuse. Hepatitis C he is still critically ill. History Interval history: Patient still intubated, still having fever, Hospitalist Physical - Physical exam Narrative exam: Gen: Intubated, on ventilator, HEENT: normocephalic,atraumatic Neck : no JVD Lungs: bilateral crackles, no wheezes Heart: S1 and S2 regular, no murmurs no gallops,no rubs Abdomen: soft nontender, nondistended, normal bowel sounds Extremities: no edema, no clubbing or cyanosis Neuro: Intubated, sedated, - Constitutional Vitals: Temp Pulse Resp BP Pulse Ox 98.1 F 100 H 16 112/70 97 12/24/16 08:00 12/24/16 08:30 12/24/16 08:30 12/24/16 07:31 12/24/16 07:31 General appearance: Present: other (intubated) Results - Labs CBC & Chem 7: 12/24/16 04:50 12/24/16 04:50 Labs: Laboratory Last Values WBC 8.1 K/mm3 (4.5-11.0) 12/23/16 05:00 RBC 2.67 M/mm3 (3.65-5.03) L 12/23/16 05:00 Hgb 9.3 gm/dl (11.8-15.2) L 12/24/16 04:50 Hct 26.9 % (35.5-45.6) L 12/24/16 04:50 MCV 89 fl (84-94) 12/23/16 05:00 MCH 30 pg (28-32) 12/23/16 05:00 MCHC 34 % (32-34) 12/23/16 05:00 RDW 13.0 % (13.2-15.2) L 12/23/16 05:00 Plt Count 128 K/mm3 (140-440) L 12/24/16 04:50 Lymph % (Auto) 11.3 % (13.4-35.0) L 12/19/16 04:20 [place] % (Auto) 4.0 % (0.0-7.3) 12/19/16 04:20 Eos % (Auto) 0.3 % (0.0-4.3) 12/19/16 04:20 Baso % (Auto) 0.5 % (0.0-1.8) 12/19/16 04:20 Lymph # 1.3 K/mm3 (1.2-5.4) 12/19/16 04:20 [place] # 0.5 K/mm3 (0.0-0.8) 12/19/16 04:20 Eos # 0.0 K/mm3 (0.0-0.4) 12/19/16 04:20 Baso # 0.1 K/mm3 (0.0-0.1) 12/19/16 04:20 Seg Neutrophils % 83.9 % (40.0-70.0) H 12/19/16 04:20 Seg Neutrophils # 9.9 K/mm3 (1.8-7.7) H 12/19/16 04:20 PT 18.8 Sec. (12.2-14.9) H 12/18/16 16:55 INR 1.58 (0.87-1.13) H 12/18/16 16:55 APTT 34.5 Sec. (24.2-36.6) 12/18/16 16:55 D-Dimer 586.01 ng/mlDDU (0-234) H 12/14/16 18:03 POC ABG pH 7.392 (7.35-7.45) 12/23/16 04:48 POC ABG pCO2 37.6 (35-45) 12/23/16 04:48 POC ABG pO2 123 (80-105) H 12/23/16 04:48 POC ABG HCO3 22.9 12/23/16 04:48 POC ABG Total CO2 24 12/23/16 04:48 POC ABG O2 Sat 99 12/23/16 04:48 POC ABG Base Excess -2 12/23/16 04:48 FiO2 40 % 12/23/16 04:48 Sodium 134 mmol/L (137-145) L 12/24/16 04:50 Potassium 3.8 mmol/L (3.6-5.0) 12/24/16 04:50 Chloride 94.6 mmol/L (98-107) L 12/24/16 04:50 Carbon Dioxide 25 mmol/L (22-30) 12/24/16 04:50 Anion Gap 18 mmol/L 12/24/16 04:50 BUN 61 mg/dL (9-20) H 12/24/16 04:50 Creatinine 4.4 mg/dL (0.8-1.5) H 12/24/16 04:50 Estimated GFR 14 ml/min 12/24/16 04:50 BUN/Creatinine Ratio 13.86 % 12/24/16 04:50 Glucose 144 mg/dL (75-100) H 12/24/16 04:50 POC Glucose 139 (70-105) H 12/24/16 05:19 Lactic Acid 1.9 mmol/L (0.7-2.0) 12/18/16 09:00 Calcium 7.4 mg/dL (8.4-10.2) L 12/24/16 04:50 Phosphorus 5.4 mg/dL (2.5-4.5) H D 12/18/16 18:21 Magnesium 2.5 mg/dL (1.7-2.3) H 12/17/16 09:10 Total Bilirubin 0.9 mg/dL (0.1-1.2) 12/19/16 04:20 Direct Bilirubin 0.7 mg/dL (0-0.2) H 12/07/16 05:30 Indirect Bilirubin 0.4 mg/dL 12/07/16 05:30 AST 1058 units/L (5-40) H 12/19/16 04:20 ALT 133 units/L (7-56) H 12/19/16 04:20 Alkaline Phosphatase 35 units/L (35-129) 12/19/16 04:20 Ammonia 42.0 umol/L (25-60) 12/06/16 16:07 Total Creatine Kinase 242 units/L (55-170) H 12/07/16 06:58 CK-MB (CK-2) 2.8 ng/mL (0.0-4.0) 12/07/16 06:58 CK-MB (CK-2) Rel Index 1.1 (0-4) 12/07/16 06:58 Troponin T < 0.010 ng/mL (0.00-0.029) 12/07/16 06:58 C-Reactive Protein 1.20 mg/dL (0.00-1.30) 12/15/16 11:37 Total Protein 6.1 g/dL (6.3-8.2) L 12/19/16 04:20 Albumin 2.3 g/dL (3.9-5) L 12/19/16 04:20 Albumin/Globulin Ratio 0.6 % 12/19/16 04:20 Vitamin B12 815.1 pg/mL (211-911) 12/15/16 09:15 TSH 0.204 mlU/mL (0.270-4.200) L 12/15/16 13:40 Free T4 1.16 ng/dL (0.76-1.46) 12/15/16 13:40 Urine Color Winsome (Yellow) 12/06/16 15:30 Urine Turbidity Clear (Clear) 12/06/16 15:30 Urine pH 6.0 (5.0-7.0) 12/06/16 15:30 Ur Specific [place] 1.017 (1.003-1.030) 12/06/16 15:30 Urine Protein 100 mg/dl mg/dL (Negative) 12/06/16 15:30 Urine Glucose (UA) 50 mg/dL (Negative) 12/06/16 15:30 Urine Ketones Neg mg/dL (Negative) 12/06/16 15:30 Urine Blood Sm (Negative) 12/06/16 15:30 Urine Nitrite Neg (Negative) 12/06/16 15:30 Urine Bilirubin Neg (Negative) 12/06/16 15:30 Urine Urobilinogen 4.0 mg/dL (<2.0) 12/06/16 15:30 Ur Leukocyte Esterase Neg (Negative) 12/06/16 15:30 Urine WBC (Auto) < 1.0 /HPF (0.0-6.0) 12/06/16 15:30 Urine RBC (Auto) 4.0 /HPF (0.0-6.0) 12/06/16 15:30 Urine Mucus Few /HPF 12/06/16 15:30 Vancomycin Trough 33.7 ug/mL (5.0-20.0) H 12/16/16 18:34 Salicylates < 0.3 mg/dL (2.8-20.0) L 12/06/16 16:07 Urine Opiates Screen Presumptive negative 12/06/16 15:30 Urine Methadone Screen Presumptive negative 12/06/16 15:30 Acetaminophen < 15.0 ug/mL (10.0-30.0) 12/06/16 16:07 Ur Barbiturates Screen Presumptive negative 12/06/16 15:30 Ur Phencyclidine Scrn Presumptive negative 12/06/16 15:30 Ur Amphetamines Screen Presumptive negative 12/06/16 15:30 U Benzodiazepines Scrn Presumptive negative 12/06/16 15:30 Urine Cocaine Screen Presumptive negative 12/06/16 15:30 U Marijuana (THC) Screen Presumptive negative 12/06/16 15:30 Drugs of Abuse Note Disclamer 12/06/16 15:30 Plasma/Serum Alcohol < 0.01 gm% (0-0.07) 12/06/16 16:07 Hepatitis A IgM Ab Non-reactive (NonReactive) 12/18/16 18:21 Hep Bs Antigen Non-reactive (Negative) 12/18/16 18:21 Hep B Core IgM Ab Non-reactive (NonReactive) 12/18/16 18:21 Hepatitis C Antibody Reactive (NonReactive) 12/18/16 18:21 Blood Type A NEGATIVE 12/23/16 07:30 Antibody Screen Negative 12/23/16 07:30 Crossmatch See Detail 12/23/16 07:30
[2016-12-24] MEDS: LEVEMIR SUB-Q SCH (10:00)
--- NOTE | 2016-12-24 10:04 | Progress Note ---
Assessment and Plan Acute respiratory failure currently intubated Septic shock Pneumonia Altered mental status Anemia requiring blood transfusion Thrombocytopenia Acute renal failure initiated on HD this admission Chronic systolic heart failure Ischemic cardiomyopathy Echo this admission demonstrates left ventricular ejection fraction 35%. Hx of CAD [facility] 2013: patent mid LAD stent, patent diagonal branch stent, patent mid obtuse marginal stent. Nonobstructive disease of the RCA. EF 30-35%. Conservative cardiac management. Subjective Date of service: 12/24/16 Principal diagnosis: Acute hypoxemic respiratory failure, shock Interval history: Patient remains intubated on the vent. Eyes open. Remains on Levophed. Objective Vital Signs Temp Pulse Pulse Pulse Pulse Resp Resp 12/24/16 08:30 100 H 12/24/16 08:24 98 H 12/24/16 08:00 98.1 F 12/24/16 07:31 94 H 12/24/16 07:00 94 H 18 12/24/16 06:45 93 H 18 12/24/16 06:30 95 H 21 12/24/16 06:15 96 H 20 12/24/16 06:00 95 H 17 12/24/16 05:46 96 H 19 12/24/16 05:30 95 H 20 12/24/16 05:15 101 H 20 12/24/16 05:00 100 H 20 12/24/16 04:45 97 H 20 12/24/16 04:30 89 19 12/24/16 04:15 92 H 17 12/24/16 04:00 99.7 F H 90 99 H 21 12/24/16 03:51 93 H 99 H 12/24/16 03:45 93 H 20 12/24/16 03:30 97 H 22 12/24/16 03:15 90 22 12/24/16 03:00 99 H 11 L 12/24/16 02:45 93 H 25 H 12/24/16 02:30 99 H 24 12/24/16 02:15 93 H 23 12/24/16 02:00 89 24 12/24/16 01:45 89 24 12/24/16 01:30 87 22 12/24/16 01:15 92 H 25 H 12/24/16 01:00 93 H 21 12/24/16 00:45 92 H 23 12/24/16 00:30 104 H 23 03/15/17 00:15 97 H 24 12/24/16 00:11 101 H 12/24/16 00:00 100.9 F H 97 H 24 12/23/16 23:45 93 H 23 12/23/16 23:30 93 H 23 12/23/16 23:15 101 H 18 12/23/16 23:00 98 H 23 12/23/16 22:45 95 H 21 12/23/16 22:30 96 H 22 12/23/16 22:15 90 24 12/23/16 22:00 98 H 21 12/23/16 21:45 94 H 22 12/23/16 21:30 97 H 23 12/23/16 21:15 91 H 21 12/23/16 21:00 93 H 16 12/23/16 20:45 91 H 22 12/23/16 20:30 97 H 19 12/23/16 20:15 91 H 22 12/23/16 20:10 91 H 86 25 H 12/23/16 20:00 100.6 F H 87 99 H 20 12/23/16 19:45 94 H 20 12/23/16 19:30 88 24 12/23/16 19:15 89 22 12/23/16 19:00 94 H 27 H 12/23/16 18:45 89 21 12/23/16 18:30 90 19 12/23/16 18:15 90 24 12/23/16 18:00 103 H 18 12/23/16 17:45 93 H 23 12/23/16 17:30 91 H 23 12/23/16 17:15 97 H 22 12/23/16 17:00 94 H 18 12/23/16 16:45 98 H 20 12/23/16 16:30 98 H 25 H 12/23/16 16:15 98 H 20 12/23/16 16:00 100.8 F H 107 H 22 12/23/16 15:45 100 H 22 12/23/16 15:30 106 H 25 H 12/23/16 15:15 99 H 21 12/23/16 15:00 98 H 24 12/23/16 14:45 98 H 19 12/23/16 14:30 97 H 18 12/23/16 14:15 97 H 24 12/23/16 14:00 104 H 16 12/23/16 13:51 96 H 22 12/23/16 13:45 95 H 23 12/23/16 13:43 99.3 F 97 H 16 12/23/16 13:42 100 H 22 12/23/16 13:30 91 H 18 12/23/16 13:15 92 H 21 12/23/16 13:03 95 H 12/23/16 13:00 95 H 19 12/23/16 12:45 91 H 20 12/23/16 12:31 94 H 12/23/16 12:30 102 H 19 12/23/16 12:15 97 H 19 12/23/16 12:10 100.4 F H 100 H 16 12/23/16 12:00 99.3 F 94 H 18 12/23/16 11:59 100.4 F H 94 H 21 12/23/16 11:45 94 H 24 12/23/16 11:40 100.0 F H 96 H 25 H 12/23/16 11:31 100.0 F H 94 H 22 12/23/16 11:30 93 H 21 12/23/16 11:25 100.0 F H 97 H 22 12/23/16 11:15 96 H 19 12/23/16 11:00 96 H 16 12/23/16 10:45 94 H 16 12/23/16 10:30 95 H 15 12/23/16 10:15 96 H 18 Resp BP Pulse Ox 12/24/16 08:30 16 12/24/16 08:24 16 12/24/16 08:00 12/24/16 07:31 112/70 97 12/24/16 07:00 117/61 12/24/16 06:45 127/61 12/24/16 06:30 130/62 12/24/16 06:15 127/58 12/24/16 06:00 124/65 12/24/16 05:46 115/61 12/24/16 05:30 141/67 12/24/16 05:15 134/71 12/24/16 05:00 142/71 12/24/16 04:45 141/69 12/24/16 04:30 128/69 12/24/16 04:15 130/66 12/24/16 04:00 24 124/67 100 12/24/16 03:51 25 H 139/69 100 12/24/16 03:45 139/69 12/24/16 03:30 131/66 12/24/16 03:15 136/66 12/24/16 03:00 154/74 97 12/24/16 02:45 144/68 99 12/24/16 02:30 143/70 96 12/24/16 02:15 138/68 96 12/24/16 02:00 129/63 96 12/24/16 01:45 133/62 96 12/24/16 01:30 132/61 96 12/24/16 01:15 134/66 96 12/24/16 01:00 133/70 95 12/24/16 00:45 126/64 97 12/24/16 00:30 142/72 97 12/24/16 00:15 135/67 97 12/24/16 00:11 120/76 97 12/24/16 00:00 134/64 100 12/23/16 23:45 122/64 12/23/16 23:30 142/62 79 L 12/23/16 23:15 141/72 12/23/16 23:00 128/64 12/23/16 22:45 137/64 12/23/16 22:30 137/63 12/23/16 22:15 131/60 12/23/16 22:00 130/63 12/23/16 21:45 123/62 12/23/16 21:30 132/66 12/23/16 21:15 130/59 12/23/16 21:00 129/64 12/23/16 20:45 137/60 12/23/16 20:30 132/64 12/23/16 20:15 126/58 99 12/23/16 20:10 19 12/23/16 20:00 130/58 100 12/23/16 19:45 129/63 98 12/23/16 19:30 121/60 99 12/23/16 19:15 130/58 99 12/23/16 19:00 123/57 98 12/23/16 18:45 124/60 99 12/23/16 18:30 131/61 99 12/23/16 18:15 126/61 12/23/16 18:00 136/59 12/23/16 17:45 128/59 94 12/23/16 17:30 116/59 94 12/23/16 17:15 126/59 94 12/23/16 17:00 123/57 94 12/23/16 16:45 115/58 94 12/23/16 16:30 115/57 94 12/23/16 16:15 125/52 94 12/23/16 16:00 125/59 93 12/23/16 15:45 124/64 93 12/23/16 15:30 123/66 91 12/23/16 15:15 116/57 93 12/23/16 15:00 118/62 93 12/23/16 14:45 123/59 92 12/23/16 14:30 125/58 93 12/23/16 14:15 126/57 93 12/23/16 14:00 125/50 93 12/23/16 13:51 12/23/16 13:45 115/60 93 12/23/16 13:43 123/66 12/23/16 13:42 12/23/16 13:30 123/66 94 12/23/16 13:15 117/61 94 12/23/16 13:03 116/66 12/23/16 13:00 114/60 93 12/23/16 12:45 111/58 94 12/23/16 12:31 122/62 12/23/16 12:30 116/66 93 12/23/16 12:15 122/62 94 12/23/16 12:10 122/62 94 12/23/16 12:00 112/58 94 12/23/16 11:59 107/56 95 12/23/16 11:45 107/56 94 12/23/16 11:40 115/59 94 12/23/16 11:31 110/57 95 12/23/16 11:30 115/59 94 12/23/16 11:25 110/57 95 12/23/16 11:15 110/57 95 12/23/16 11:00 112/55 12/23/16 10:45 105/53 12/23/16 10:30 112/54 12/23/16 10:15 108/54 - Physical Examination General: Other (intubated on mechanical ventilator) HEENT: Positive: PERRL Cardiac: Positive: Reg Rate and Rhythm - Labs and Meds CBC 12/24/16 Range/Units 04:50 Hgb 9.3 L (11.8-15.2) gm/dl Hct 26.9 L (35.5-45.6) % Plt Count 128 L (140-440) K/mm3 Comprehensive Metabolic Panel 12/24/16 Range/Units 04:50 Sodium 134 L (137-145) mmol/L Potassium 3.8 (3.6-5.0) mmol/L Chloride 94.6 L (98-107) mmol/L Carbon Dioxide 25 (22-30) mmol/L BUN 61 H (9-20) mg/dL Creatinine 4.4 H (0.8-1.5) mg/dL Glucose 144 H (75-100) mg/dL Calcium 7.4 L (8.4-10.2) mg/dL - Allied health notes Allied health notes reviewed: RT
--- NOTE | 2016-12-24 12:17 | Progress Note ---
Assessment and Plan - Patient Problems (1) Acute hypoxemic respiratory failure Current Visit: Yes Status: Acute Plan to address problem: - remains intubated - continue aspiration precautions - continue bronchodilators and pulmonary toilet - continue to wean FiO2 for sats > 94% - reduced set rate to 16/min - will begin PSV trials in am if tolerates bedside SBT (failed today) - adjust sedation to control tachypnea prn (2) Altered mental status Current Visit: Yes Status: Acute Qualifiers: Altered mental status type: A Coma depth: C Coma timing: C Plan to address problem: - seen by neurology - prn sedation / benzo's - multi-factorial really including azotemia - will follow neurology recommendations - overall improved (3) Septic shock Current Visit: Yes Status: Acute Plan to address problem: - complete AB's as per ID recs - r/o VTE re: fevers (dopplers negative) - continue to wean vasopressors for MAP > 60-65mmHg - IVF per nephrology at this point (4) Diabetes Current Visit: No Status: Chronic Qualifiers: Diabetes mellitus type: D Diabetes mellitus complication status: D Diabetes mellitus complication detail: D Diabetic retinopathy severity: D Proliferative retinopathy type: P Diabetes mellitus macular edema: D Diabetes mellitus intermediate insulin use: D Laterality: L Chronic kidney disease stage: C Plan to address problem: - transitioned off IV insulin therapy (5) BRITTANY (acute kidney injury) Current Visit: Yes Status: Deleted Plan to address problem: - nephrology on case - s/p vas-cath - HD/UF per nephrology recs (6) Subclavian artery injury Current Visit: Yes Status: Acute Qualifiers: Encounter type: E Laterality: L Plan to address problem: - seen by vascular team - phased extraction approach which may involve trip to catheter builder or O.R. - H&H holding - tentatively for OR in am (7) Discharge planning issues Current Visit: Yes Status: Acute Plan to address problem: - LTAC evaluation on hold for now - suspect he will need a tracheostomy especially re: initial failed extubation ...he is critically ill on life sustaining interventions including MVS & vasopressors and at high risk for further deterioration including ...30' CCT Subjective Date of service: 12/24/16 Principal diagnosis: Acute hypoxemic respiratory failure, shock Interval history: Seen and examined at bedside; 24 hour events reviewed; nursing and respiratory care staff consulted; no adverse overnight events reported to me; discussed with space systems operations manager; will plan to dialyze today so as to be able to go for vascular procedure in am; no new issues otherwise Objective Vital Signs - 12hr 12/24/16 12/24/16 12/24/16 00:30 00:45 01:00 Temperature Pulse Rate 104 H 92 H 93 H Pulse Rate [ Bilateral Throughout] Respiratory 23 23 21 Rate Respiratory Rate [Bilateral Throughout] Blood Pressure 142/72 126/64 133/70 O2 Sat by Pulse 97 97 95 Oximetry 12/24/16 12/24/16 12/24/16 01:15 01:30 01:45 Temperature Pulse Rate 92 H 87 89 Pulse Rate [ Bilateral Throughout] Respiratory 25 H 22 24 Rate Respiratory Rate [Bilateral Throughout] Blood Pressure 134/66 132/61 133/62 O2 Sat by Pulse 96 96 96 Oximetry 12/24/16 12/24/16 12/24/16 02:00 02:15 02:30 Temperature Pulse Rate 89 93 H 99 H Pulse Rate [ Bilateral Throughout] Respiratory 24 23 24 Rate Respiratory Rate [Bilateral Throughout] Blood Pressure 129/63 138/68 143/70 O2 Sat by Pulse 96 96 96 Oximetry 12/24/16 12/24/16 12/24/16 02:45 03:00 03:15 Temperature Pulse Rate 93 H 99 H 90 Pulse Rate [ Bilateral Throughout] Respiratory 25 H 11 L 22 Rate Respiratory Rate [Bilateral Throughout] Blood Pressure 144/68 154/74 136/66 O2 Sat by Pulse 99 97 Oximetry 12/24/16 12/24/16 12/24/16 03:30 03:45 03:51 Temperature Pulse Rate 97 H 93 H 93 H Pulse Rate [ 99 H Bilateral Throughout] Respiratory 22 20 Rate Respiratory 25 H Rate [Bilateral Throughout] Blood Pressure 131/66 139/69 139/69 O2 Sat by Pulse 100 Oximetry 12/24/16 12/24/16 12/24/16 04:00 04:15 04:30 Temperature 99.7 F H Pulse Rate 90 92 H 89 Pulse Rate [ 99 H Bilateral Throughout] Respiratory 21 17 19 Rate Respiratory 24 Rate [Bilateral Throughout] Blood Pressure 124/67 130/66 128/69 O2 Sat by Pulse 100 Oximetry 12/24/16 12/24/16 12/24/16 04:45 05:00 05:15 Temperature Pulse Rate 97 H 100 H 101 H Pulse Rate [ Bilateral Throughout] Respiratory 20 20 20 Rate Respiratory Rate [Bilateral Throughout] Blood Pressure 141/69 142/71 134/71 O2 Sat by Pulse Oximetry 12/24/16 12/24/16 12/24/16 05:30 05:46 06:00 Temperature Pulse Rate 95 H 96 H 95 H Pulse Rate [ Bilateral Throughout] Respiratory 20 19 17 Rate Respiratory Rate [Bilateral Throughout] Blood Pressure 141/67 115/61 124/65 O2 Sat by Pulse Oximetry 12/24/16 12/24/16 12/24/16 06:15 06:30 06:45 Temperature Pulse Rate 96 H 95 H 93 H Pulse Rate [ Bilateral Throughout] Respiratory 20 21 18 Rate Respiratory Rate [Bilateral Throughout] Blood Pressure 127/58 130/62 127/61 O2 Sat by Pulse Oximetry 12/24/16 12/24/16 12/24/16 07:00 07:15 07:30 Temperature Pulse Rate 94 H 98 H 100 H Pulse Rate [ Bilateral Throughout] Respiratory 18 19 15 Rate Respiratory Rate [Bilateral Throughout] Blood Pressure 117/61 127/62 131/64 O2 Sat by Pulse 98 Oximetry 12/24/16 12/24/16 12/24/16 07:31 07:45 08:00 Temperature 98.1 F Pulse Rate 94 H 95 H 95 H Pulse Rate [ Bilateral Throughout] Respiratory 20 19 Rate Respiratory Rate [Bilateral Throughout] Blood Pressure 112/70 127/62 119/58 O2 Sat by Pulse 97 99 99 Oximetry 12/24/16 12/24/16 12/24/16 08:15 08:24 08:30 Temperature Pulse Rate 96 H 94 H Pulse Rate [ 98 H 100 H Bilateral Throughout] Respiratory 17 18 Rate Respiratory 16 16 Rate [Bilateral Throughout] Blood Pressure 116/58 111/57 O2 Sat by Pulse 99 99 Oximetry 12/24/16 12/24/16 12/24/16 08:45 09:00 09:15 Temperature Pulse Rate 94 H 99 H 96 H Pulse Rate [ Bilateral Throughout] Respiratory 17 18 18 Rate Respiratory Rate [Bilateral Throughout] Blood Pressure 114/58 118/57 113/57 O2 Sat by Pulse 99 99 99 Oximetry 12/24/16 12/24/16 12/24/16 09:30 09:45 10:00 Temperature Pulse Rate 95 H 96 H 100 H Pulse Rate [ Bilateral Throughout] Respiratory 17 17 18 Rate Respiratory Rate [Bilateral Throughout] Blood Pressure 113/56 118/57 127/63 O2 Sat by Pulse 97 99 Oximetry 12/24/16 12/24/16 10:15 10:28 Temperature Pulse Rate 100 H 98 H Pulse Rate [ Bilateral Throughout] Respiratory 13 Rate Respiratory Rate [Bilateral Throughout] Blood Pressure 123/63 117/62 O2 Sat by Pulse 99 98 Oximetry Constitutional: other (sedated) Eyes: non-icteric ENT: oropharynx moist Neck: supple, no lymphadenopathy, no JVD Effort: mildly labored Ascultation: Bilateral: diminished breath sounds, rales (basilar and scant) Cardiovascular: regular rate and rhythm Gastrointestinal: normoactive bowel sounds, hypoactive bowel sounds, soft, non- tender, non-distended Integumentary: normal Extremities: no cyanosis, pink and warm, pulses normal, no ischemia or petechiae Neurologic: non-focal exam (grossly), pupils equal and round, unable to assess Psychiatric: other (sedated) CBC and BMP: 12/24/16 04:50 12/24/16 04:50 ABG, PT/INR, D-dimer: ABG POC ABG pH 7.392 (7.35-7.45) 12/23/16 04:48 POC ABG pCO2 37.6 (35-45) 12/23/16 04:48 POC ABG pO2 123 (80-105) H 12/23/16 04:48 POC ABG HCO3 22.9 12/23/16 04:48 POC ABG Total CO2 24 12/23/16 04:48 POC ABG O2 Sat 99 12/23/16 04:48 PT/INR, D-dimer PT 18.8 Sec. (12.2-14.9) H 12/18/16 16:55 INR 1.58 (0.87-1.13) H 12/18/16 16:55 D-Dimer 586.01 ng/mlDDU (0-234) H 12/14/16 18:03 Abnormal lab findings: Abnormal Labs 12/07/16 12/07/16 12/07/16 00:35 05:30 05:30 WBC RBC Hgb Hct MCV MCHC RDW 13.0 L Plt Count 93 L Lymph % (Auto) [place] % (Auto) 11.2 H [place] # 1.1 H Baso # Seg Neutrophils % 71.3 H Seg Neutrophils # PT INR D-Dimer POC ABG pH POC ABG pCO2 POC ABG pO2 Sodium Potassium Chloride Carbon Dioxide BUN Creatinine 0.6 L Glucose 168 H POC Glucose Lactic Acid Calcium 7.8 L Phosphorus Magnesium Direct Bilirubin 0.7 H AST ALT Alkaline Phosphatase Total Creatine Kinase 343 H C-Reactive Protein Total Protein Albumin 2.6 L TSH Vancomycin Trough Crossmatch 12/07/16 12/07/16 12/07/16 06:58 16:41 18:30 WBC RBC Hgb Hct MCV MCHC RDW Plt Count Lymph % (Auto) [place] % (Auto) [place] # Baso # Seg Neutrophils % Seg Neutrophils # PT INR D-Dimer POC ABG pH POC ABG pCO2 POC ABG pO2 Sodium Potassium Chloride Carbon Dioxide BUN Creatinine Glucose POC Glucose 175 H Lactic Acid Calcium Phosphorus Magnesium Direct Bilirubin AST ALT Alkaline Phosphatase Total Creatine Kinase 242 H C-Reactive Protein 7.70 H Total Protein Albumin TSH Vancomycin Trough Crossmatch 12/09/16 12/10/16 12/10/16 11:58 06:05 12:24 WBC RBC Hgb Hct MCV MCHC RDW Plt Count Lymph % (Auto) [place] % (Auto) [place] # Baso # Seg Neutrophils % Seg Neutrophils # PT INR D-Dimer POC ABG pH 7.485 H POC ABG pCO2 POC ABG pO2 Sodium Potassium Chloride Carbon Dioxide BUN Creatinine Glucose POC Glucose 141 H 183 H Lactic Acid Calcium Phosphorus Magnesium Direct Bilirubin AST ALT Alkaline Phosphatase Total Creatine Kinase C-Reactive Protein Total Protein Albumin TSH Vancomycin Trough Crossmatch 12/10/16 12/10/16 12/11/16 17:47 23:21 06:10 WBC RBC Hgb Hct MCV MCHC RDW Plt Count Lymph % (Auto) [place] % (Auto) [place] # Baso # Seg Neutrophils % Seg Neutrophils # PT INR D-Dimer POC ABG pH POC ABG pCO2 POC ABG pO2 Sodium Potassium Chloride Carbon Dioxide BUN Creatinine Glucose POC Glucose 176 H 240 H 252 H Lactic Acid Calcium Phosphorus Magnesium Direct Bilirubin AST ALT Alkaline Phosphatase Total Creatine Kinase C-Reactive Protein Total Protein Albumin TSH Vancomycin Trough Crossmatch 12/11/16 12/11/16 12/11/16 08:29 09:14 11:37 WBC RBC Hgb Hct MCV MCHC RDW 13.1 L Plt Count Lymph % (Auto) [place] % (Auto) [place] # Baso # Seg Neutrophils % Seg Neutrophils # PT INR D-Dimer POC ABG pH POC ABG pCO2 POC ABG pO2 Sodium Potassium Chloride Carbon Dioxide BUN Creatinine Glucose POC Glucose 253 H 284 H Lactic Acid Calcium Phosphorus Magnesium Direct Bilirubin AST ALT Alkaline Phosphatase Total Creatine Kinase C-Reactive Protein Total Protein Albumin TSH Vancomycin Trough Crossmatch 12/11/16 12/11/16 12/11/16 16:12 17:54 23:35 WBC RBC Hgb Hct MCV MCHC RDW Plt Count Lymph % (Auto) [place] % (Auto) [place] # Baso # Seg Neutrophils % Seg Neutrophils # PT INR D-Dimer POC ABG pH POC ABG pCO2 POC ABG pO2 Sodium Potassium Chloride Carbon Dioxide BUN 37 H Creatinine Glucose 258 H POC Glucose 227 H 264 H Lactic Acid Calcium 8.3 L Phosphorus Magnesium Direct Bilirubin AST ALT Alkaline Phosphatase Total Creatine Kinase C-Reactive Protein Total Protein Albumin 2.6 L TSH Vancomycin Trough Crossmatch 12/12/16 12/12/16 12/12/16 04:37 06:06 10:12 WBC RBC Hgb Hct MCV MCHC RDW Plt Count Lymph % (Auto) [place] % (Auto) [place] # Baso # Seg Neutrophils % Seg Neutrophils # PT INR D-Dimer POC ABG pH 7.500 H POC ABG pCO2 POC ABG pO2 69 L Sodium Potassium Chloride Carbon Dioxide BUN Creatinine Glucose POC Glucose 288 H Lactic Acid Calcium Phosphorus Magnesium Direct Bilirubin AST ALT Alkaline Phosphatase Total Creatine Kinase C-Reactive Protein Total Protein Albumin TSH Vancomycin Trough Crossmatch 12/12/16 12/12/16 12/12/16 13:08 17:46 23:31 WBC RBC Hgb Hct MCV MCHC RDW Plt Count Lymph % (Auto) [place] % (Auto) [place] # Baso # Seg Neutrophils % Seg Neutrophils # PT INR D-Dimer POC ABG pH POC ABG pCO2 POC ABG pO2 Sodium Potassium Chloride Carbon Dioxide BUN Creatinine Glucose POC Glucose 215 H 234 H 241 H Lactic Acid Calcium Phosphorus Magnesium Direct Bilirubin AST ALT Alkaline Phosphatase Total Creatine Kinase C-Reactive Protein Total Protein Albumin TSH Vancomycin Trough Crossmatch 12/13/16 12/13/16 12/13/16 05:38 11:44 17:32 WBC RBC Hgb Hct MCV MCHC RDW Plt Count Lymph % (Auto) [place] % (Auto) [place] # Baso # Seg Neutrophils % Seg Neutrophils # PT INR D-Dimer POC ABG pH POC ABG pCO2 POC ABG pO2 Sodium Potassium Chloride Carbon Dioxide BUN Creatinine Glucose POC Glucose 215 H 237 H 215 H Lactic Acid Calcium Phosphorus Magnesium Direct Bilirubin AST ALT Alkaline Phosphatase Total Creatine Kinase C-Reactive Protein Total Protein Albumin TSH Vancomycin Trough Crossmatch 12/14/16 12/14/16 12/14/16 00:22 05:40 12:03 WBC RBC Hgb Hct MCV MCHC RDW Plt Count Lymph % (Auto) [place] % (Auto) [place] # Baso # Seg Neutrophils % Seg Neutrophils # PT INR D-Dimer POC ABG pH POC ABG pCO2 POC ABG pO2 Sodium Potassium Chloride Carbon Dioxide BUN Creatinine Glucose POC Glucose 268 H 301 H 312 H Lactic Acid Calcium Phosphorus Magnesium Direct Bilirubin AST ALT Alkaline Phosphatase Total Creatine Kinase C-Reactive Protein Total Protein Albumin TSH Vancomycin Trough Crossmatch 12/14/16 12/14/16 12/14/16 18:03 18:03 18:03 WBC RBC Hgb Hct MCV MCHC RDW 12.9 L Plt Count Lymph % (Auto) [place] % (Auto) 8.0 H [place] # Baso # Seg Neutrophils % 72.4 H Seg Neutrophils # PT INR D-Dimer 586.01 H POC ABG pH POC ABG pCO2 POC ABG pO2 Sodium 150 H Potassium Chloride 109.1 H Carbon Dioxide BUN 50 H Creatinine Glucose 261 H POC Glucose Lactic Acid Calcium Phosphorus Magnesium Direct Bilirubin AST ALT Alkaline Phosphatase Total Creatine Kinase C-Reactive Protein Total Protein Albumin TSH Vancomycin Trough Crossmatch 12/14/16 12/14/16 12/14/16 18:30 21:55 23:59 WBC RBC Hgb Hct MCV MCHC RDW Plt Count Lymph % (Auto) [place] % (Auto) [place] # Baso # Seg Neutrophils % Seg Neutrophils # PT INR D-Dimer POC ABG pH POC ABG pCO2 POC ABG pO2 Sodium Potassium Chloride Carbon Dioxide BUN Creatinine Glucose POC Glucose 321 H 258 H 262 H Lactic Acid Calcium Phosphorus Magnesium Direct Bilirubin AST ALT Alkaline Phosphatase Total Creatine Kinase C-Reactive Protein Total Protein Albumin TSH Vancomycin Trough Crossmatch 12/15/16 12/15/16 12/15/16 05:28 06:04 09:15 WBC RBC Hgb Hct MCV MCHC RDW Plt Count Lymph % (Auto) [place] % (Auto) [place] # Baso # Seg Neutrophils % Seg Neutrophils # PT INR D-Dimer POC ABG pH POC ABG pCO2 POC ABG pO2 Sodium Potassium Chloride Carbon Dioxide BUN Creatinine Glucose POC Glucose 274 H 276 H Lactic Acid Calcium Phosphorus Magnesium Direct Bilirubin AST ALT Alkaline Phosphatase Total Creatine Kinase C-Reactive Protein Total Protein Albumin TSH 0.220 L Vancomycin Trough Crossmatch 12/15/16 12/15/16 12/15/16 11:59 13:40 18:06 WBC RBC Hgb Hct MCV MCHC RDW Plt Count Lymph % (Auto) [place] % (Auto) [place] # Baso # Seg Neutrophils % Seg Neutrophils # PT INR D-Dimer POC ABG pH POC ABG pCO2 33.3 L POC ABG pO2 70 L Sodium Potassium Chloride Carbon Dioxide BUN Creatinine Glucose POC Glucose 273 H Lactic Acid Calcium Phosphorus Magnesium Direct Bilirubin AST ALT Alkaline Phosphatase Total Creatine Kinase C-Reactive Protein Total Protein Albumin TSH 0.204 L Vancomycin Trough Crossmatch 12/15/16 12/15/16 12/16/16 18:14 21:26 02:08 WBC RBC Hgb Hct MCV MCHC RDW Plt Count Lymph % (Auto) [place] % (Auto) [place] # Baso # Seg Neutrophils % Seg Neutrophils # PT INR D-Dimer POC ABG pH 7.341 L POC ABG pCO2 POC ABG pO2 223 H Sodium Potassium Chloride Carbon Dioxide BUN Creatinine Glucose POC Glucose 234 H 371 H Lactic Acid Calcium Phosphorus Magnesium Direct Bilirubin AST ALT Alkaline Phosphatase Total Creatine Kinase C-Reactive Protein Total Protein Albumin TSH Vancomycin Trough Crossmatch 12/16/16 12/16/16 12/16/16 05:12 05:18 09:40 WBC RBC Hgb Hct MCV MCHC RDW Plt Count Lymph % (Auto) [place] % (Auto) [place] # Baso # Seg Neutrophils % Seg Neutrophils # PT INR D-Dimer POC ABG pH POC ABG pCO2 32.5 L POC ABG pO2 Sodium 154 H Potassium Chloride 116.8 H Carbon Dioxide 18 L D BUN 92 H Creatinine 3.0 H D Glucose 364 H POC Glucose 357 H Lactic Acid Calcium 8.2 L Phosphorus Magnesium Direct Bilirubin AST ALT Alkaline Phosphatase Total Creatine Kinase C-Reactive Protein Total Protein Albumin TSH Vancomycin Trough Crossmatch 12/16/16 12/16/16 12/16/16 13:40 18:27 18:34 WBC RBC Hgb Hct MCV MCHC RDW Plt Count Lymph % (Auto) [place] % (Auto) [place] # Baso # Seg Neutrophils % Seg Neutrophils # PT INR D-Dimer POC ABG pH POC ABG pCO2 POC ABG pO2 Sodium Potassium Chloride Carbon Dioxide BUN Creatinine Glucose POC Glucose 391 H 472 H Lactic Acid Calcium Phosphorus Magnesium Direct Bilirubin AST ALT Alkaline Phosphatase Total Creatine Kinase C-Reactive Protein Total Protein Albumin TSH Vancomycin Trough 33.7 H Crossmatch 12/17/16 12/17/16 12/17/16 00:38 01:54 05:53 WBC RBC Hgb Hct MCV MCHC RDW Plt Count Lymph % (Auto) [place] % (Auto) [place] # Baso # Seg Neutrophils % Seg Neutrophils # PT INR D-Dimer POC ABG pH 7.234 L POC ABG pCO2 34.5 L POC ABG pO2 50 L Sodium Potassium Chloride Carbon Dioxide BUN Creatinine Glucose POC Glucose 386 H 400 H Lactic Acid Calcium Phosphorus Magnesium Direct Bilirubin AST ALT Alkaline Phosphatase Total Creatine Kinase C-Reactive Protein Total Protein Albumin TSH Vancomycin Trough Crossmatch 12/17/16 12/17/16 12/17/16 06:45 06:45 07:45 WBC 12.3 H RBC Hgb 11.7 L Hct MCV 97 H D MCHC 31 L RDW Plt Count Lymph % (Auto) [place] % (Auto) 14.4 H [place] # 1.8 H Baso # 0.2 H Seg Neutrophils % Seg Neutrophils # 8.2 H PT INR D-Dimer POC ABG pH POC ABG pCO2 POC ABG pO2 Sodium Potassium 7.6 H* D Chloride 110.8 H Carbon Dioxide 14 L BUN 121 H Creatinine 5.4 H D Glucose 566 H* POC Glucose > 500 H Lactic Acid Calcium 6.2 L D Phosphorus Magnesium Direct Bilirubin AST 323 H ALT Alkaline Phosphatase 27 L Total Creatine Kinase C-Reactive Protein Total Protein Albumin 2.3 L TSH Vancomycin Trough Crossmatch 12/17/16 12/17/16 12/17/16 08:51 09:10 09:11 WBC RBC Hgb Hct MCV MCHC RDW Plt Count Lymph % (Auto) [place] % (Auto) [place] # Baso # Seg Neutrophils % Seg Neutrophils # PT INR D-Dimer POC ABG pH 7.113 L POC ABG pCO2 46.1 H POC ABG pO2 186 H Sodium Potassium Chloride Carbon Dioxide BUN Creatinine Glucose POC Glucose > 500 H Lactic Acid Calcium Phosphorus 9.5 H Magnesium 2.5 H Direct Bilirubin AST ALT Alkaline Phosphatase Total Creatine Kinase C-Reactive Protein Total Protein Albumin TSH Vancomycin Trough Crossmatch 12/17/16 12/17/16 12/17/16 10:18 10:50 11:17 WBC RBC Hgb Hct MCV MCHC RDW Plt Count Lymph % (Auto) [place] % (Auto) [place] # Baso # Seg Neutrophils % Seg Neutrophils # PT INR D-Dimer POC ABG pH POC ABG pCO2 POC ABG pO2 Sodium Potassium 6.1 H* Chloride 110.1 H Carbon Dioxide 14 L BUN 128 H Creatinine 5.5 H Glucose 580 H* POC Glucose > 500 H > 500 H Lactic Acid Calcium Phosphorus Magnesium Direct Bilirubin AST ALT Alkaline Phosphatase Total Creatine Kinase C-Reactive Protein Total Protein Albumin TSH Vancomycin Trough Crossmatch 12/17/16 12/17/16 12/17/16 12:09 12:30 13:36 WBC RBC Hgb Hct MCV MCHC RDW Plt Count Lymph % (Auto) [place] % (Auto) [place] # Baso # Seg Neutrophils % Seg Neutrophils # PT INR D-Dimer POC ABG pH POC ABG pCO2 POC ABG pO2 Sodium Potassium 5.6 H Chloride 110.4 H Carbon Dioxide 14 L BUN 138 H Creatinine 5.3 H Glucose 528 H* POC Glucose 428 H 426 H Lactic Acid Calcium 6.8 L D Phosphorus Magnesium Direct Bilirubin AST ALT Alkaline Phosphatase Total Creatine Kinase C-Reactive Protein Total Protein Albumin TSH Vancomycin Trough Crossmatch 12/17/16 12/17/16 12/17/16 14:11 14:25 14:45 WBC RBC Hgb Hct MCV MCHC RDW Plt Count Lymph % (Auto) [place] % (Auto) [place] # Baso # Seg Neutrophils % Seg Neutrophils # PT INR D-Dimer POC ABG pH 7.297 L POC ABG pCO2 34.2 L POC ABG pO2 114 H Sodium 146 H Potassium 5.3 H Chloride 109.3 H Carbon Dioxide 15 L BUN 128 H Creatinine 5.5 H Glucose 426 H POC Glucose 422 H Lactic Acid Calcium 6.7 L Phosphorus Magnesium Direct Bilirubin AST ALT Alkaline Phosphatase Total Creatine Kinase C-Reactive Protein Total Protein Albumin TSH Vancomycin Trough Crossmatch 12/17/16 12/17/16 12/17/16 15:07 16:03 16:56 WBC RBC Hgb Hct MCV MCHC RDW Plt Count Lymph % (Auto) [place] % (Auto) [place] # Baso # Seg Neutrophils % Seg Neutrophils # PT INR D-Dimer POC ABG pH POC ABG pCO2 POC ABG pO2 Sodium Potassium Chloride Carbon Dioxide BUN Creatinine Glucose POC Glucose 392 H 450 H 352 H Lactic Acid Calcium Phosphorus Magnesium Direct Bilirubin AST ALT Alkaline Phosphatase Total Creatine Kinase C-Reactive Protein Total Protein Albumin TSH Vancomycin Trough Crossmatch 12/17/16 12/17/16 12/17/16 18:00 18:10 18:38 WBC RBC Hgb Hct MCV MCHC RDW Plt Count Lymph % (Auto) [place] % (Auto) [place] # Baso # Seg Neutrophils % Seg Neutrophils # PT INR D-Dimer POC ABG pH POC ABG pCO2 POC ABG pO2 Sodium 147 H Potassium Chloride 109.7 H Carbon Dioxide 15 L BUN 140 H Creatinine 5.2 H Glucose 301 H POC Glucose 318 H 256 H Lactic Acid Calcium 6.5 L Phosphorus Magnesium Direct Bilirubin AST ALT Alkaline Phosphatase Total Creatine Kinase C-Reactive Protein Total Protein Albumin TSH Vancomycin Trough Crossmatch 12/17/16 12/17/16 12/17/16 19:31 20:00 20:44 WBC RBC Hgb Hct MCV MCHC RDW Plt Count Lymph % (Auto) [place] % (Auto) [place] # Baso # Seg Neutrophils % Seg Neutrophils # PT 17.7 H INR 1.46 H D-Dimer POC ABG pH POC ABG pCO2 30.5 L POC ABG pO2 134 H Sodium Potassium Chloride Carbon Dioxide BUN Creatinine Glucose POC Glucose 189 H Lactic Acid Calcium Phosphorus Magnesium Direct Bilirubin AST ALT Alkaline Phosphatase Total Creatine Kinase C-Reactive Protein Total Protein Albumin TSH Vancomycin Trough Crossmatch 12/17/16 12/17/16 12/18/16 21:59 23:18 00:15 WBC RBC Hgb Hct MCV MCHC RDW Plt Count Lymph % (Auto) [place] % (Auto) [place] # Baso # Seg Neutrophils % Seg Neutrophils # PT INR D-Dimer POC ABG pH POC ABG pCO2 POC ABG pO2 Sodium 147 H Potassium 5.2 H Chloride 107.9 H Carbon Dioxide 18 L BUN 143 H Creatinine 5.6 H Glucose 152 H POC Glucose 191 H 132 H Lactic Acid Calcium 6.3 L Phosphorus Magnesium Direct Bilirubin AST ALT Alkaline Phosphatase Total Creatine Kinase C-Reactive Protein Total Protein Albumin TSH Vancomycin Trough Crossmatch 12/18/16 12/18/16 12/18/16 00:18 01:08 02:35 WBC RBC Hgb Hct MCV MCHC RDW Plt Count Lymph % (Auto) [place] % (Auto) [place] # Baso # Seg Neutrophils % Seg Neutrophils # PT INR D-Dimer POC ABG pH POC ABG pCO2 POC ABG pO2 Sodium Potassium Chloride Carbon Dioxide BUN Creatinine Glucose POC Glucose 190 H 157 H 144 H Lactic Acid Calcium Phosphorus Magnesium Direct Bilirubin AST ALT Alkaline Phosphatase Total Creatine Kinase C-Reactive Protein Total Protein Albumin TSH Vancomycin Trough Crossmatch 12/18/16 12/18/16 12/18/16 03:14 04:11 05:07 WBC RBC Hgb Hct MCV MCHC RDW Plt Count Lymph % (Auto) [place] % (Auto) [place] # Baso # Seg Neutrophils % Seg Neutrophils # PT INR D-Dimer POC ABG pH POC ABG pCO2 POC ABG pO2 Sodium Potassium Chloride Carbon Dioxide BUN Creatinine Glucose POC Glucose 117 H 108 H 122 H Lactic Acid Calcium Phosphorus Magnesium Direct Bilirubin AST ALT Alkaline Phosphatase Total Creatine Kinase C-Reactive Protein Total Protein Albumin TSH Vancomycin Trough Crossmatch 12/18/16 12/18/16 12/18/16 05:23 06:07 06:07 WBC RBC 3.18 L Hgb 9.6 L Hct 29.0 L D MCV MCHC RDW Plt Count 130 L Lymph % (Auto) [place] % (Auto) [place] # Baso # Seg Neutrophils % Seg Neutrophils # PT INR D-Dimer POC ABG pH 7.485 H POC ABG pCO2 27.5 L POC ABG pO2 275 H Sodium Potassium Chloride Carbon Dioxide BUN Creatinine Glucose POC Glucose Lactic Acid 3.2 H* Calcium Phosphorus Magnesium Direct Bilirubin AST ALT Alkaline Phosphatase Total Creatine Kinase C-Reactive Protein Total Protein Albumin TSH Vancomycin Trough Crossmatch 12/18/16 12/18/16 12/18/16 06:08 06:22 07:26 WBC RBC Hgb Hct MCV MCHC RDW Plt Count Lymph % (Auto) [place] % (Auto) [place] # Baso # Seg Neutrophils % Seg Neutrophils # PT 18.3 H INR 1.52 H D-Dimer POC ABG pH POC ABG pCO2 POC ABG pO2 Sodium Potassium Chloride Carbon Dioxide BUN Creatinine Glucose POC Glucose 159 H 198 H Lactic Acid Calcium Phosphorus Magnesium Direct Bilirubin AST ALT Alkaline Phosphatase Total Creatine Kinase C-Reactive Protein Total Protein Albumin TSH Vancomycin Trough Crossmatch 12/18/16 12/18/16 12/18/16 08:27 09:00 09:30 WBC RBC Hgb Hct MCV MCHC RDW Plt Count Lymph % (Auto) [place] % (Auto) [place] # Baso # Seg Neutrophils % Seg Neutrophils # PT INR D-Dimer POC ABG pH POC ABG pCO2 POC ABG pO2 Sodium 147 H Potassium 5.5 H Chloride Carbon Dioxide 17 L BUN 145 H Creatinine 6.4 H Glucose 213 H POC Glucose 220 H 216 H Lactic Acid Calcium 6.0 L Phosphorus Magnesium Direct Bilirubin AST ALT Alkaline Phosphatase Total Creatine Kinase C-Reactive Protein Total Protein Albumin TSH Vancomycin Trough Crossmatch 12/18/16 12/18/16 12/18/16 10:29 11:11 12:05 WBC RBC Hgb Hct MCV MCHC RDW Plt Count Lymph % (Auto) [place] % (Auto) [place] # Baso # Seg Neutrophils % Seg Neutrophils # PT INR D-Dimer POC ABG pH POC ABG pCO2 POC ABG pO2 Sodium Potassium Chloride Carbon Dioxide BUN Creatinine Glucose POC Glucose 248 H 214 H 165 H Lactic Acid Calcium Phosphorus Magnesium Direct Bilirubin AST ALT Alkaline Phosphatase Total Creatine Kinase C-Reactive Protein Total Protein Albumin TSH Vancomycin Trough Crossmatch 12/18/16 12/18/16 12/18/16 13:06 13:59 14:45 WBC RBC Hgb Hct MCV MCHC RDW Plt Count Lymph % (Auto) [place] % (Auto) [place] # Baso # Seg Neutrophils % Seg Neutrophils # PT INR D-Dimer POC ABG pH POC ABG pCO2 29.2 L POC ABG pO2 Sodium Potassium Chloride Carbon Dioxide BUN Creatinine Glucose POC Glucose 133 H 116 H Lactic Acid Calcium Phosphorus Magnesium Direct Bilirubin AST ALT Alkaline Phosphatase Total Creatine Kinase C-Reactive Protein Total Protein Albumin TSH Vancomycin Trough Crossmatch 12/18/16 12/18/16 12/18/16 14:52 15:14 15:52 WBC RBC Hgb Hct MCV MCHC RDW Plt Count Lymph % (Auto) [place] % (Auto) [place] # Baso # Seg Neutrophils % Seg Neutrophils # PT INR D-Dimer POC ABG pH POC ABG pCO2 24.2 L POC ABG pO2 Sodium Potassium Chloride Carbon Dioxide BUN Creatinine Glucose POC Glucose 139 H 146 H Lactic Acid Calcium Phosphorus Magnesium Direct Bilirubin AST ALT Alkaline Phosphatase Total Creatine Kinase C-Reactive Protein Total Protein Albumin TSH Vancomycin Trough Crossmatch 12/18/16 12/18/16 12/18/16 16:55 16:55 17:18 WBC RBC Hgb 11.4 L Hct 33.9 L MCV MCHC RDW Plt Count Lymph % (Auto) [place] % (Auto) [place] # Baso # Seg Neutrophils % Seg Neutrophils # PT 18.8 H INR 1.58 H D-Dimer POC ABG pH POC ABG pCO2 POC ABG pO2 Sodium Potassium Chloride Carbon Dioxide BUN Creatinine Glucose POC Glucose 144 H Lactic Acid Calcium Phosphorus Magnesium Direct Bilirubin AST ALT Alkaline Phosphatase Total Creatine Kinase C-Reactive Protein Total Protein Albumin TSH Vancomycin Trough Crossmatch 12/18/16 12/18/16 12/18/16 18:12 18:21 20:17 WBC RBC Hgb Hct MCV MCHC RDW Plt Count Lymph % (Auto) [place] % (Auto) [place] # Baso # Seg Neutrophils % Seg Neutrophils # PT INR D-Dimer POC ABG pH POC ABG pCO2 POC ABG pO2 Sodium Potassium Chloride Carbon Dioxide BUN Creatinine Glucose POC Glucose 147 H 120 H Lactic Acid Calcium Phosphorus 5.4 H D Magnesium Direct Bilirubin AST ALT Alkaline Phosphatase Total Creatine Kinase C-Reactive Protein Total Protein Albumin TSH Vancomycin Trough Crossmatch 12/18/16 12/19/16 12/19/16 22:52 00:56 02:09 WBC RBC Hgb Hct MCV MCHC RDW Plt Count Lymph % (Auto) [place] % (Auto) [place] # Baso # Seg Neutrophils % Seg Neutrophils # PT INR D-Dimer POC ABG pH POC ABG pCO2 POC ABG pO2 Sodium Potassium Chloride Carbon Dioxide BUN Creatinine Glucose POC Glucose 124 H 168 H 140 H Lactic Acid Calcium Phosphorus Magnesium Direct Bilirubin AST ALT Alkaline Phosphatase Total Creatine Kinase C-Reactive Protein Total Protein Albumin TSH Vancomycin Trough Crossmatch 12/19/16 12/19/16 12/19/16 04:20 04:20 04:53 WBC 11.8 H RBC Hgb 11.7 L Hct 34.7 L MCV MCHC RDW Plt Count Lymph % (Auto) 11.3 L [place] % (Auto) [place] # Baso # Seg Neutrophils % 83.9 H Seg Neutrophils # 9.9 H PT INR D-Dimer POC ABG pH POC ABG pCO2 POC ABG pO2 Sodium Potassium Chloride Carbon Dioxide 20 L BUN 108 H Creatinine 4.9 H Glucose 131 H POC Glucose 112 H Lactic Acid Calcium 6.3 L Phosphorus Magnesium Direct Bilirubin AST 1058 H ALT 133 H Alkaline Phosphatase Total Creatine Kinase C-Reactive Protein Total Protein 6.1 L Albumin 2.3 L TSH Vancomycin Trough Crossmatch 12/19/16 12/19/16 12/19/16 05:42 06:30 07:37 WBC RBC Hgb Hct MCV MCHC RDW Plt Count Lymph % (Auto) [place] % (Auto) [place] # Baso # Seg Neutrophils % Seg Neutrophils # PT INR D-Dimer POC ABG pH 7.539 H POC ABG pCO2 26.0 L POC ABG pO2 Sodium Potassium Chloride Carbon Dioxide BUN Creatinine Glucose POC Glucose 119 H 126 H Lactic Acid Calcium Phosphorus Magnesium Direct Bilirubin AST ALT Alkaline Phosphatase Total Creatine Kinase C-Reactive Protein Total Protein Albumin TSH Vancomycin Trough Crossmatch 12/19/16 12/19/16 12/19/16 09:59 12:38 14:25 WBC RBC Hgb Hct MCV MCHC RDW Plt Count Lymph % (Auto) [place] % (Auto) [place] # Baso # Seg Neutrophils % Seg Neutrophils # PT INR D-Dimer POC ABG pH POC ABG pCO2 POC ABG pO2 Sodium Potassium Chloride Carbon Dioxide BUN Creatinine Glucose POC Glucose 118 H 139 H 143 H Lactic Acid Calcium Phosphorus Magnesium Direct Bilirubin AST ALT Alkaline Phosphatase Total Creatine Kinase C-Reactive Protein Total Protein Albumin TSH Vancomycin Trough Crossmatch 12/19/16 12/19/16 12/19/16 16:50 18:01 23:04 WBC RBC Hgb Hct MCV MCHC RDW Plt Count Lymph % (Auto) [place] % (Auto) [place] # Baso # Seg Neutrophils % Seg Neutrophils # PT INR D-Dimer POC ABG pH POC ABG pCO2 POC ABG pO2 Sodium Potassium Chloride Carbon Dioxide BUN Creatinine Glucose POC Glucose 253 H 259 H 200 H Lactic Acid Calcium Phosphorus Magnesium Direct Bilirubin AST ALT Alkaline Phosphatase Total Creatine Kinase C-Reactive Protein Total Protein Albumin TSH Vancomycin Trough Crossmatch 12/20/16 12/20/16 12/20/16 00:58 02:57 04:09 WBC RBC Hgb Hct MCV MCHC RDW Plt Count Lymph % (Auto) [place] % (Auto) [place] # Baso # Seg Neutrophils % Seg Neutrophils # PT INR D-Dimer POC ABG pH POC ABG pCO2 POC ABG pO2 Sodium Potassium Chloride Carbon Dioxide BUN Creatinine Glucose POC Glucose 210 H 162 H 109 H Lactic Acid Calcium Phosphorus Magnesium Direct Bilirubin AST ALT Alkaline Phosphatase Total Creatine Kinase C-Reactive Protein Total Protein Albumin TSH Vancomycin Trough Crossmatch 12/20/16 12/20/16 12/20/16 05:11 05:57 07:41 WBC RBC Hgb Hct MCV MCHC RDW Plt Count Lymph % (Auto) [place] % (Auto) [place] # Baso # Seg Neutrophils % Seg Neutrophils # PT INR D-Dimer POC ABG pH 7.560 H POC ABG pCO2 28.2 L POC ABG pO2 Sodium Potassium Chloride Carbon Dioxide BUN Creatinine Glucose POC Glucose 121 H 170 H Lactic Acid Calcium Phosphorus Magnesium Direct Bilirubin AST ALT Alkaline Phosphatase Total Creatine Kinase C-Reactive Protein Total Protein Albumin TSH Vancomycin Trough Crossmatch 12/20/16 12/20/16 12/20/16 08:30 08:30 10:06 WBC RBC 3.36 L Hgb 10.1 L Hct 29.5 L MCV MCHC RDW Plt Count 114 L Lymph % (Auto) [place] % (Auto) [place] # Baso # Seg Neutrophils % Seg Neutrophils # PT INR D-Dimer POC ABG pH POC ABG pCO2 POC ABG pO2 Sodium Potassium Chloride 95.1 L Carbon Dioxide BUN 78 H Creatinine 5.0 H Glucose 181 H POC Glucose 155 H Lactic Acid Calcium 6.2 L Phosphorus Magnesium Direct Bilirubin AST ALT Alkaline Phosphatase Total Creatine Kinase C-Reactive Protein Total Protein Albumin TSH Vancomycin Trough Crossmatch 12/20/16 12/20/16 12/20/16 11:55 14:44 16:24 WBC RBC Hgb Hct MCV MCHC RDW Plt Count Lymph % (Auto) [place] % (Auto) [place] # Baso # Seg Neutrophils % Seg Neutrophils # PT INR D-Dimer POC ABG pH POC ABG pCO2 POC ABG pO2 Sodium Potassium Chloride Carbon Dioxide BUN Creatinine Glucose POC Glucose 124 H 171 H 143 H Lactic Acid Calcium Phosphorus Magnesium Direct Bilirubin AST ALT Alkaline Phosphatase Total Creatine Kinase C-Reactive Protein Total Protein Albumin TSH Vancomycin Trough Crossmatch 12/20/16 12/20/16 12/20/16 18:14 20:25 22:29 WBC RBC Hgb Hct MCV MCHC RDW Plt Count Lymph % (Auto) [place] % (Auto) [place] # Baso # Seg Neutrophils % Seg Neutrophils # PT INR D-Dimer POC ABG pH POC ABG pCO2 POC ABG pO2 Sodium Potassium Chloride Carbon Dioxide BUN Creatinine Glucose POC Glucose 144 H 130 H 146 H Lactic Acid Calcium Phosphorus Magnesium Direct Bilirubin AST ALT Alkaline Phosphatase Total Creatine Kinase C-Reactive Protein Total Protein Albumin TSH Vancomycin Trough Crossmatch 12/21/16 12/21/16 12/21/16 00:30 03:06 04:31 WBC RBC Hgb Hct MCV MCHC RDW Plt Count Lymph % (Auto) [place] % (Auto) [place] # Baso # Seg Neutrophils % Seg Neutrophils # PT INR D-Dimer POC ABG pH POC ABG pCO2 31.3 L POC ABG pO2 Sodium Potassium Chloride Carbon Dioxide BUN Creatinine Glucose POC Glucose 185 H 115 H Lactic Acid Calcium Phosphorus Magnesium Direct Bilirubin AST ALT Alkaline Phosphatase Total Creatine Kinase C-Reactive Protein Total Protein Albumin TSH Vancomycin Trough Crossmatch 12/21/16 12/21/16 12/21/16 04:45 06:38 06:41 WBC RBC Hgb Hct MCV MCHC RDW Plt Count Lymph % (Auto) [place] % (Auto) [place] # Baso # Seg Neutrophils % Seg Neutrophils # PT INR D-Dimer POC ABG pH POC ABG pCO2 POC ABG pO2 Sodium Potassium Chloride Carbon Dioxide BUN Creatinine Glucose POC Glucose 145 H 165 H 145 H Lactic Acid Calcium Phosphorus Magnesium Direct Bilirubin AST ALT Alkaline Phosphatase Total Creatine Kinase C-Reactive Protein Total Protein Albumin TSH Vancomycin Trough Crossmatch 12/21/16 12/21/16 12/21/16 09:35 09:35 10:14 WBC 11.8 H RBC 3.52 L Hgb 10.8 L Hct 31.3 L MCV MCHC RDW 13.0 L Plt Count 130 L Lymph % (Auto) [place] % (Auto) [place] # Baso # Seg Neutrophils % Seg Neutrophils # PT INR D-Dimer POC ABG pH POC ABG pCO2 POC ABG pO2 Sodium Potassium Chloride Carbon Dioxide 21 L BUN 98 H Creatinine 6.2 H Glucose 133 H POC Glucose 178 H Lactic Acid Calcium 6.7 L Phosphorus Magnesium Direct Bilirubin AST ALT Alkaline Phosphatase Total Creatine Kinase C-Reactive Protein Total Protein Albumin TSH Vancomycin Trough Crossmatch 12/21/16 12/21/16 12/21/16 12:22 14:28 15:59 WBC RBC Hgb Hct MCV MCHC RDW Plt Count Lymph % (Auto) [place] % (Auto) [place] # Baso # Seg Neutrophils % Seg Neutrophils # PT INR D-Dimer POC ABG pH POC ABG pCO2 POC ABG pO2 Sodium Potassium Chloride Carbon Dioxide BUN Creatinine Glucose POC Glucose 191 H 139 H 182 H Lactic Acid Calcium Phosphorus Magnesium Direct Bilirubin AST ALT Alkaline Phosphatase Total Creatine Kinase C-Reactive Protein Total Protein Albumin TSH Vancomycin Trough Crossmatch 12/21/16 12/21/16 12/21/16 18:23 20:19 22:02 WBC RBC Hgb Hct MCV MCHC RDW Plt Count Lymph % (Auto) [place] % (Auto) [place] # Baso # Seg Neutrophils % Seg Neutrophils # PT INR D-Dimer POC ABG pH POC ABG pCO2 POC ABG pO2 Sodium Potassium Chloride Carbon Dioxide BUN Creatinine Glucose POC Glucose 167 H 134 H 163 H Lactic Acid Calcium Phosphorus Magnesium Direct Bilirubin AST ALT Alkaline Phosphatase Total Creatine Kinase C-Reactive Protein Total Protein Albumin TSH Vancomycin Trough Crossmatch 12/22/16 12/22/16 12/22/16 00:09 01:55 04:00 WBC 12.0 H RBC 2.93 L Hgb 8.9 L Hct 26.1 L MCV MCHC RDW 13.0 L Plt Count 103 L Lymph % (Auto) [place] % (Auto) [place] # Baso # Seg Neutrophils % Seg Neutrophils # PT INR D-Dimer POC ABG pH POC ABG pCO2 POC ABG pO2 Sodium Potassium Chloride Carbon Dioxide BUN Creatinine Glucose POC Glucose 154 H 111 H Lactic Acid Calcium Phosphorus Magnesium Direct Bilirubin AST ALT Alkaline Phosphatase Total Creatine Kinase C-Reactive Protein Total Protein Albumin TSH Vancomycin Trough Crossmatch 12/22/16 12/22/16 12/22/16 04:00 04:09 04:48 WBC RBC Hgb Hct MCV MCHC RDW Plt Count Lymph % (Auto) [place] % (Auto) [place] # Baso # Seg Neutrophils % Seg Neutrophils # PT INR D-Dimer POC ABG pH POC ABG pCO2 32.2 L POC ABG pO2 42 L Sodium Potassium Chloride 97.0 L Carbon Dioxide 20 L BUN 119 H Creatinine 6.9 H Glucose 143 H POC Glucose 151 H Lactic Acid Calcium 6.3 L Phosphorus Magnesium Direct Bilirubin AST ALT Alkaline Phosphatase Total Creatine Kinase C-Reactive Protein Total Protein Albumin TSH Vancomycin Trough Crossmatch 12/22/16 12/22/16 12/22/16 05:22 08:09 09:34 WBC RBC Hgb 8.9 L Hct 26.5 L MCV MCHC RDW Plt Count 96 L Lymph % (Auto) [place] % (Auto) [place] # Baso # Seg Neutrophils % Seg Neutrophils # PT INR D-Dimer POC ABG pH POC ABG pCO2 34.7 L POC ABG pO2 Sodium Potassium Chloride Carbon Dioxide BUN Creatinine Glucose POC Glucose 113 H Lactic Acid Calcium Phosphorus Magnesium Direct Bilirubin AST ALT Alkaline Phosphatase Total Creatine Kinase C-Reactive Protein Total Protein Albumin TSH Vancomycin Trough Crossmatch 12/22/16 12/22/16 12/22/16 12:26 14:05 16:25 WBC RBC Hgb Hct MCV MCHC RDW Plt Count Lymph % (Auto) [place] % (Auto) [place] # Baso # Seg Neutrophils % Seg Neutrophils # PT INR D-Dimer POC ABG pH POC ABG pCO2 POC ABG pO2 Sodium Potassium Chloride Carbon Dioxide BUN Creatinine Glucose POC Glucose 190 H 160 H 106 H Lactic Acid Calcium Phosphorus Magnesium Direct Bilirubin AST ALT Alkaline Phosphatase Total Creatine Kinase C-Reactive Protein Total Protein Albumin TSH Vancomycin Trough Crossmatch 12/22/16 12/22/16 12/23/16 20:26 22:22 00:04 WBC RBC Hgb Hct MCV MCHC RDW Plt Count Lymph % (Auto) [place] % (Auto) [place] # Baso # Seg Neutrophils % Seg Neutrophils # PT INR D-Dimer POC ABG pH POC ABG pCO2 POC ABG pO2 Sodium Potassium Chloride Carbon Dioxide BUN Creatinine Glucose POC Glucose 106 H 154 H 171 H Lactic Acid Calcium Phosphorus Magnesium Direct Bilirubin AST ALT Alkaline Phosphatase Total Creatine Kinase C-Reactive Protein Total Protein Albumin TSH Vancomycin Trough Crossmatch 12/23/16 12/23/16 12/23/16 04:12 04:48 05:00 WBC RBC 2.67 L Hgb 8.1 L Hct 23.7 L MCV MCHC RDW 13.0 L Plt Count 89 L Lymph % (Auto) [place] % (Auto) [place] # Baso # Seg Neutrophils % Seg Neutrophils # PT INR D-Dimer POC ABG pH POC ABG pCO2 POC ABG pO2 123 H Sodium Potassium Chloride Carbon Dioxide BUN Creatinine Glucose POC Glucose 136 H Lactic Acid Calcium Phosphorus Magnesium Direct Bilirubin AST ALT Alkaline Phosphatase Total Creatine Kinase C-Reactive Protein Total Protein Albumin TSH Vancomycin Trough Crossmatch 12/23/16 12/23/16 12/23/16 05:00 07:30 07:44 WBC RBC Hgb Hct MCV MCHC RDW Plt Count Lymph % (Auto) [place] % (Auto) [place] # Baso # Seg Neutrophils % Seg Neutrophils # PT INR D-Dimer POC ABG pH POC ABG pCO2 POC ABG pO2 Sodium 135 L Potassium Chloride 96.1 L Carbon Dioxide BUN 83 H Creatinine 5.3 H Glucose 126 H POC Glucose 122 H Lactic Acid Calcium 7.0 L Phosphorus Magnesium Direct Bilirubin AST ALT Alkaline Phosphatase Total Creatine Kinase C-Reactive Protein Total Protein Albumin TSH Vancomycin Trough Crossmatch See Detail 12/23/16 12/23/16 12/23/16 11:31 12:12 13:44 WBC RBC Hgb Hct MCV MCHC RDW Plt Count Lymph % (Auto) [place] % (Auto) [place] # Baso # Seg Neutrophils % Seg Neutrophils # PT INR D-Dimer POC ABG pH POC ABG pCO2 POC ABG pO2 Sodium Potassium Chloride Carbon Dioxide BUN Creatinine Glucose POC Glucose 142 H 117 H 127 H Lactic Acid Calcium Phosphorus Magnesium Direct Bilirubin AST ALT Alkaline Phosphatase Total Creatine Kinase C-Reactive Protein Total Protein Albumin TSH Vancomycin Trough Crossmatch 12/23/16 12/23/16 12/23/16 16:07 17:51 23:53 WBC RBC Hgb Hct MCV MCHC RDW Plt Count Lymph % (Auto) [place] % (Auto) [place] # Baso # Seg Neutrophils % Seg Neutrophils # PT INR D-Dimer POC ABG pH POC ABG pCO2 POC ABG pO2 Sodium Potassium Chloride Carbon Dioxide BUN Creatinine Glucose POC Glucose 163 H 219 H 144 H Lactic Acid Calcium Phosphorus Magnesium Direct Bilirubin AST ALT Alkaline Phosphatase Total Creatine Kinase C-Reactive Protein Total Protein Albumin TSH Vancomycin Trough Crossmatch 12/24/16 12/24/16 12/24/16 04:50 04:50 05:19 WBC RBC Hgb 9.3 L Hct 26.9 L MCV MCHC RDW Plt Count 128 L Lymph % (Auto) [place] % (Auto) [place] # Baso # Seg Neutrophils % Seg Neutrophils # PT INR D-Dimer POC ABG pH POC ABG pCO2 POC ABG pO2 Sodium 134 L Potassium Chloride 94.6 L Carbon Dioxide BUN 61 H Creatinine 4.4 H Glucose 144 H POC Glucose 139 H Lactic Acid Calcium 7.4 L Phosphorus Magnesium Direct Bilirubin AST ALT Alkaline Phosphatase Total Creatine Kinase C-Reactive Protein Total Protein Albumin TSH Vancomycin Trough Crossmatch 12/24/16 11:53 WBC RBC Hgb Hct MCV MCHC RDW Plt Count Lymph % (Auto) [place] % (Auto) [place] # Baso # Seg Neutrophils % Seg Neutrophils # PT INR D-Dimer POC ABG pH POC ABG pCO2 POC ABG pO2 Sodium Potassium Chloride Carbon Dioxide BUN Creatinine Glucose POC Glucose 129 H Lactic Acid Calcium Phosphorus Magnesium Direct Bilirubin AST ALT Alkaline Phosphatase Total Creatine Kinase C-Reactive Protein Total Protein Albumin TSH Vancomycin Trough Crossmatch Allied health notes reviewed: RT
[2016-12-24] MEDS: fentaNYL DRIP Premix 2,000 MCG/100 ML BAG IV SCH ×2 (13:37→21:24)
--- NOTE | 2016-12-24 14:30 | Progress Note ---
Assessment and Plan 61-year-old male with multiple medical problems including severe cardiomyopathy with limited ejection fraction, subclavian arterial line placed by ER, actively receiving dialysis on a single processor. The patient has been on heparin, and has had IV fluids infusing through the triple-lumen catheter to prevent clot formation. Unfortunately he has required daily dialysis which results in worsening hemodynamic instability. He is currently on 1 processor. There are no plans to dialyze patient tomorrow. The timing of the procedure to remove the subclavian artery catheter has been delayed based on patient's clinical status. He appears to be improving, but the longer we wait the higher the risk of clot formation and thromboembolic event. The risks, benefits, and alternatives of the endovascular procedure were discussed with the patient's daughter. Risks include possible thromboembolic event to the right upper extremity or the brain and bleeding/hemothorax. His precarious clinical status makes open options at removing the catheter not possible. Discussed with the patient the possibility of placing a stent graft which may need long-term antibiotics. Nothing by mouth after midnight. If the patient's hemodynamic status changes, then this may delay further. Subjective Date of service: 12/24/16 Principal diagnosis: Acute hypoxemic respiratory failure, shock Interval history: Intubated. Following simple commands and intermittently following complex commands. Family at bedside. Still on pressors. Had long discussion with family about the risks, benefits, and alternatives of intervention. Hand is viable. Objective - Constitutional Vitals: Vital Signs - 12hr 12/24/16 12/24/16 12/24/16 02:30 02:45 03:00 Temperature Pulse Rate 99 H 93 H 99 H Pulse Rate [ Bilateral Throughout] Respiratory 24 25 H 11 L Rate Respiratory Rate [Bilateral Throughout] Blood Pressure 143/70 144/68 154/74 O2 Sat by Pulse 96 99 97 Oximetry 12/24/16 12/24/16 12/24/16 03:15 03:30 03:45 Temperature Pulse Rate 90 97 H 93 H Pulse Rate [ Bilateral Throughout] Respiratory 22 22 20 Rate Respiratory Rate [Bilateral Throughout] Blood Pressure 136/66 131/66 139/69 O2 Sat by Pulse Oximetry 12/24/16 12/24/16 12/24/16 03:51 04:00 04:15 Temperature 99.7 F H Pulse Rate 93 H 90 92 H Pulse Rate [ 99 H 99 H Bilateral Throughout] Respiratory 21 17 Rate Respiratory 25 H 24 Rate [Bilateral Throughout] Blood Pressure 139/69 124/67 130/66 O2 Sat by Pulse 100 100 Oximetry 12/24/16 12/24/16 12/24/16 04:30 04:45 05:00 Temperature Pulse Rate 89 97 H 100 H Pulse Rate [ Bilateral Throughout] Respiratory 19 20 20 Rate Respiratory Rate [Bilateral Throughout] Blood Pressure 128/69 141/69 142/71 O2 Sat by Pulse Oximetry 12/24/16 12/24/16 12/24/16 05:15 05:30 05:46 Temperature Pulse Rate 101 H 95 H 96 H Pulse Rate [ Bilateral Throughout] Respiratory 20 20 19 Rate Respiratory Rate [Bilateral Throughout] Blood Pressure 134/71 141/67 115/61 O2 Sat by Pulse Oximetry 12/24/16 12/24/16 12/24/16 06:00 06:15 06:30 Temperature Pulse Rate 95 H 96 H 95 H Pulse Rate [ Bilateral Throughout] Respiratory 17 20 21 Rate Respiratory Rate [Bilateral Throughout] Blood Pressure 124/65 127/58 130/62 O2 Sat by Pulse Oximetry 12/24/16 12/24/16 12/24/16 06:45 07:00 07:15 Temperature Pulse Rate 93 H 94 H 98 H Pulse Rate [ Bilateral Throughout] Respiratory 18 18 19 Rate Respiratory Rate [Bilateral Throughout] Blood Pressure 127/61 117/61 127/62 O2 Sat by Pulse Oximetry 12/24/16 12/24/16 12/24/16 07:30 07:31 07:45 Temperature Pulse Rate 100 H 94 H 95 H Pulse Rate [ Bilateral Throughout] Respiratory 15 20 Rate Respiratory Rate [Bilateral Throughout] Blood Pressure 131/64 112/70 127/62 O2 Sat by Pulse 98 97 99 Oximetry 12/24/16 12/24/16 12/24/16 08:00 08:15 08:24 Temperature 98.1 F Pulse Rate 95 H 96 H Pulse Rate [ 98 H Bilateral Throughout] Respiratory 19 17 Rate Respiratory 16 Rate [Bilateral Throughout] Blood Pressure 119/58 116/58 O2 Sat by Pulse 99 99 Oximetry 12/24/16 12/24/16 12/24/16 08:30 08:45 09:00 Temperature Pulse Rate 94 H 94 H 99 H Pulse Rate [ 100 H Bilateral Throughout] Respiratory 18 17 18 Rate Respiratory 16 Rate [Bilateral Throughout] Blood Pressure 111/57 114/58 118/57 O2 Sat by Pulse 99 99 99 Oximetry 12/24/16 12/24/16 12/24/16 09:15 09:30 09:45 Temperature Pulse Rate 96 H 95 H 96 H Pulse Rate [ Bilateral Throughout] Respiratory 18 17 17 Rate Respiratory Rate [Bilateral Throughout] Blood Pressure 113/57 113/56 118/57 O2 Sat by Pulse 99 97 Oximetry 12/24/16 12/24/16 12/24/16 10:00 10:15 10:28 Temperature Pulse Rate 100 H 100 H 98 H Pulse Rate [ Bilateral Throughout] Respiratory 18 13 Rate Respiratory Rate [Bilateral Throughout] Blood Pressure 127/63 123/63 117/62 O2 Sat by Pulse 99 99 98 Oximetry 12/24/16 12/24/16 12/24/16 12:00 14:10 14:18 Temperature 99.1 F Pulse Rate Pulse Rate [ 102 H 101 H Bilateral Throughout] Respiratory Rate Respiratory 18 20 Rate [Bilateral Throughout] Blood Pressure O2 Sat by Pulse Oximetry General appearance: Present: other (intubated) - EENT ENT: other (intubated) - Respiratory Respiratory effort: other (intubated) Extremities: pulses intact (right radial), normal temperature (right upper extremity), normal color (right upper extremity) - Psychiatric Psychiatric: other (intubated ) - Labs CBC & Chem 7: 12/24/16 04:50 12/24/16 04:50 Labs: Abnormal lab results 12/23/16 12/23/16 12/23/16 Range/Units 04:12 07:44 11:31 Hgb (11.8-15.2) gm/dl Hct (35.5-45.6) % Plt Count (140-440) K/mm3 Sodium (137-145) mmol/L Chloride (98-107) mmol/L BUN (9-20) mg/dL Creatinine (0.8-1.5) mg/dL Glucose (75-100) mg/dL POC Glucose 136 H 122 H 142 H (70-105) Calcium (8.4-10.2) mg/dL 12/23/16 12/23/16 12/23/16 Range/Units 12:12 13:44 16:07 Hgb (11.8-15.2) gm/dl Hct (35.5-45.6) % Plt Count (140-440) K/mm3 Sodium (137-145) mmol/L Chloride (98-107) mmol/L BUN (9-20) mg/dL Creatinine (0.8-1.5) mg/dL Glucose (75-100) mg/dL POC Glucose 117 H 127 H 163 H (70-105) Calcium (8.4-10.2) mg/dL 12/23/16 12/23/16 12/24/16 Range/Units 17:51 23:53 04:50 Hgb 9.3 L (11.8-15.2) gm/dl Hct 26.9 L (35.5-45.6) % Plt Count 128 L (140-440) K/mm3 Sodium (137-145) mmol/L Chloride (98-107) mmol/L BUN (9-20) mg/dL Creatinine (0.8-1.5) mg/dL Glucose (75-100) mg/dL POC Glucose 219 H 144 H (70-105) Calcium (8.4-10.2) mg/dL 12/24/16 12/24/16 12/24/16 Range/Units 04:50 05:19 11:53 Hgb (11.8-15.2) gm/dl Hct (35.5-45.6) % Plt Count (140-440) K/mm3 Sodium 134 L (137-145) mmol/L Chloride 94.6 L (98-107) mmol/L BUN 61 H (9-20) mg/dL Creatinine 4.4 H (0.8-1.5) mg/dL Glucose 144 H (75-100) mg/dL POC Glucose 139 H 129 H (70-105) Calcium 7.4 L (8.4-10.2) mg/dL
--- NOTE | 2016-12-24 15:54 | Progress Note ---
Assessment and Plan - Patient Problems (1) Acute kidney failure with tubular necrosis Current Visit: Yes Status: Acute Plan to address problem: Kidney indices improved to dialysis yesterday. Electrolytes within normal limits. Edema resolving. Will dialyze again this morning. Reevaluate on a daily basis (2) Acute hypoxemic respiratory failure Current Visit: Yes Status: Acute Plan to address problem: Continue ventilator management by pulmonary. (3) Septic shock Current Visit: Yes Status: Acute Plan to address problem: Patient still on Levophed. Weaning ongoing. Continue antibiotics. (4) Systolic CHF, acute on chronic Current Visit: No Status: Acute Plan to address problem: EF 35%. Volume status now improving. Reevaluate need for dialysis for fluid removal on a daily basis. (5) Diabetes Current Visit: No Status: Chronic Qualifiers: Diabetes mellitus type: D Diabetes mellitus complication status: D Diabetes mellitus complication detail: D Diabetic retinopathy severity: D Proliferative retinopathy type: P Diabetes mellitus macular edema: D Diabetes mellitus senior care insulin use: D Laterality: L Chronic kidney disease stage: C Plan to address problem: Blood sugar management by primary attending (6) Anemia in chronic illness Current Visit: Yes Status: Acute Plan to address problem: Hemoglobin improved posttransfusion. Subjective Date of service: 12/24/16 Principal diagnosis: Acute hypoxemic respiratory failure, shock Interval history: Patient seen lying in bed. He is intubated on the ventilator. On fentanyl infusion. On Levophed. Unable to obtain review of systems due to patient being intubated on ventilator Objective - Exam Narrative Exam: Middle-aged male intubated on the ventilator HEENT normocephalic atraumatic, pupils equal reactive to light, pink, clear oropharynx Neck supple, no thyromegaly no jugular venous distention CVS S1-S2 regular rate rhythm without murmur, rub or gallop Chest faint rhonchi diminished in the lower zones Abdomen soft nondistended nontender no organomegaly no bruit bowel sounds present Extremities mild edema no cyanosis or clubbing Neuro drowsy but awakens, intubated on ventilator - Vital Signs Vital signs: Vital Signs - 12hr 12/24/16 12/24/16 12/24/16 03:51 04:00 04:15 Temperature 99.7 F H Pulse Rate 93 H 90 92 H Pulse Rate [ 99 H 99 H Bilateral Throughout] Pulse Rate [ From Monitor] Respiratory 21 17 Rate Respiratory 25 H 24 Rate [Bilateral Throughout] Blood Pressure 139/69 124/67 130/66 O2 Sat by Pulse 100 100 Oximetry O2 Sat by Pulse Oximetry [ Anterior Bilateral Throughout] 12/24/16 12/24/16 12/24/16 04:30 04:45 05:00 Temperature Pulse Rate 89 97 H 100 H Pulse Rate [ Bilateral Throughout] Pulse Rate [ From Monitor] Respiratory 19 20 20 Rate Respiratory Rate [Bilateral Throughout] Blood Pressure 128/69 141/69 142/71 O2 Sat by Pulse Oximetry O2 Sat by Pulse Oximetry [ Anterior Bilateral Throughout] 12/24/16 12/24/16 12/24/16 05:15 05:30 05:46 Temperature Pulse Rate 101 H 95 H 96 H Pulse Rate [ Bilateral Throughout] Pulse Rate [ From Monitor] Respiratory 20 20 19 Rate Respiratory Rate [Bilateral Throughout] Blood Pressure 134/71 141/67 115/61 O2 Sat by Pulse Oximetry O2 Sat by Pulse Oximetry [ Anterior Bilateral Throughout] 12/24/16 12/24/16 12/24/16 06:00 06:15 06:30 Temperature Pulse Rate 95 H 96 H 95 H Pulse Rate [ Bilateral Throughout] Pulse Rate [ From Monitor] Respiratory 17 20 21 Rate Respiratory Rate [Bilateral Throughout] Blood Pressure 124/65 127/58 130/62 O2 Sat by Pulse Oximetry O2 Sat by Pulse Oximetry [ Anterior Bilateral Throughout] 12/24/16 12/24/16 12/24/16 06:45 07:00 07:15 Temperature Pulse Rate 93 H 94 H 98 H Pulse Rate [ Bilateral Throughout] Pulse Rate [ From Monitor] Respiratory 18 18 19 Rate Respiratory Rate [Bilateral Throughout] Blood Pressure 127/61 117/61 127/62 O2 Sat by Pulse Oximetry O2 Sat by Pulse Oximetry [ Anterior Bilateral Throughout] 12/24/16 12/24/16 12/24/16 07:30 07:31 07:45 Temperature Pulse Rate 100 H 94 H 95 H Pulse Rate [ Bilateral Throughout] Pulse Rate [ From Monitor] Respiratory 15 20 Rate Respiratory Rate [Bilateral Throughout] Blood Pressure 131/64 112/70 127/62 O2 Sat by Pulse 98 97 99 Oximetry O2 Sat by Pulse Oximetry [ Anterior Bilateral Throughout] 12/24/16 12/24/16 12/24/16 08:00 08:15 08:24 Temperature 98.1 F Pulse Rate 95 H 96 H Pulse Rate [ 98 H Bilateral Throughout] Pulse Rate [ From Monitor] Respiratory 19 17 Rate Respiratory 16 Rate [Bilateral Throughout] Blood Pressure 119/58 116/58 O2 Sat by Pulse 99 99 Oximetry O2 Sat by Pulse Oximetry [ Anterior Bilateral Throughout] 12/24/16 12/24/16 12/24/16 08:30 08:45 09:00 Temperature Pulse Rate 94 H 94 H 99 H Pulse Rate [ 100 H Bilateral Throughout] Pulse Rate [ From Monitor] Respiratory 18 17 18 Rate Respiratory 16 Rate [Bilateral Throughout] Blood Pressure 111/57 114/58 118/57 O2 Sat by Pulse 99 99 99 Oximetry O2 Sat by Pulse Oximetry [ Anterior Bilateral Throughout] 12/24/16 12/24/16 12/24/16 09:15 09:30 09:45 Temperature Pulse Rate 96 H 95 H 96 H Pulse Rate [ Bilateral Throughout] Pulse Rate [ From Monitor] Respiratory 18 17 17 Rate Respiratory Rate [Bilateral Throughout] Blood Pressure 113/57 113/56 118/57 O2 Sat by Pulse 99 97 Oximetry O2 Sat by Pulse Oximetry [ Anterior Bilateral Throughout] 12/24/16 12/24/16 12/24/16 10:00 10:15 10:28 Temperature Pulse Rate 100 H 100 H 98 H Pulse Rate [ Bilateral Throughout] Pulse Rate [ From Monitor] Respiratory 18 13 Rate Respiratory Rate [Bilateral Throughout] Blood Pressure 127/63 123/63 117/62 O2 Sat by Pulse 99 99 98 Oximetry O2 Sat by Pulse Oximetry [ Anterior Bilateral Throughout] 12/24/16 12/24/16 12/24/16 10:30 10:45 11:00 Temperature Pulse Rate 96 H 96 H 99 H Pulse Rate [ Bilateral Throughout] Pulse Rate [ From Monitor] Respiratory 19 22 17 Rate Respiratory Rate [Bilateral Throughout] Blood Pressure 110/56 112/54 122/59 O2 Sat by Pulse 98 98 98 Oximetry O2 Sat by Pulse Oximetry [ Anterior Bilateral Throughout] 12/24/16 12/24/16 12/24/16 11:15 11:30 11:45 Temperature Pulse Rate 103 H 99 H 98 H Pulse Rate [ Bilateral Throughout] Pulse Rate [ From Monitor] Respiratory 18 13 16 Rate Respiratory Rate [Bilateral Throughout] Blood Pressure 122/59 117/59 117/59 O2 Sat by Pulse 98 Oximetry O2 Sat by Pulse Oximetry [ Anterior Bilateral Throughout] 12/24/16 12/24/16 12/24/16 12:00 12:15 12:30 Temperature 99.1 F Pulse Rate 106 H 100 H 105 H Pulse Rate [ Bilateral Throughout] Pulse Rate [ 102 H From Monitor] Respiratory 16 15 14 Rate Respiratory Rate [Bilateral Throughout] Blood Pressure 122/52 131/58 112/54 O2 Sat by Pulse 92 Oximetry O2 Sat by Pulse Oximetry [ Anterior Bilateral Throughout] 12/24/16 12/24/16 12/24/16 12:45 13:00 13:15 Temperature Pulse Rate 101 H 98 H 102 H Pulse Rate [ Bilateral Throughout] Pulse Rate [ From Monitor] Respiratory 17 18 19 Rate Respiratory Rate [Bilateral Throughout] Blood Pressure 109/54 118/63 133/67 O2 Sat by Pulse 98 97 Oximetry O2 Sat by Pulse Oximetry [ Anterior Bilateral Throughout] 12/24/16 12/24/16 12/24/16 13:30 13:45 14:00 Temperature Pulse Rate 97 H 105 H 99 H Pulse Rate [ Bilateral Throughout] Pulse Rate [ From Monitor] Respiratory 17 20 19 Rate Respiratory Rate [Bilateral Throughout] Blood Pressure 122/62 122/62 134/60 O2 Sat by Pulse 98 98 Oximetry O2 Sat by Pulse Oximetry [ Anterior Bilateral Throughout] 12/24/16 12/24/16 12/24/16 14:10 14:15 14:18 Temperature Pulse Rate 99 H Pulse Rate [ 102 H 101 H Bilateral Throughout] Pulse Rate [ From Monitor] Respiratory 17 Rate Respiratory 18 20 Rate [Bilateral Throughout] Blood Pressure 131/63 O2 Sat by Pulse 100 Oximetry O2 Sat by Pulse Oximetry [ Anterior Bilateral Throughout] 12/24/16 12/24/16 12/24/16 14:25 14:30 14:45 Temperature 99.1 F Pulse Rate 99 H 102 H 100 H Pulse Rate [ Bilateral Throughout] Pulse Rate [ From Monitor] Respiratory 16 19 15 Rate Respiratory Rate [Bilateral Throughout] Blood Pressure 131/63 130/60 131/64 O2 Sat by Pulse 100 98 Oximetry O2 Sat by Pulse 99 Oximetry [ Anterior Bilateral Throughout] 12/24/16 12/24/16 12/24/16 15:00 15:15 15:30 Temperature Pulse Rate 100 H 101 H 99 H Pulse Rate [ Bilateral Throughout] Pulse Rate [ From Monitor] Respiratory 14 18 Rate Respiratory Rate [Bilateral Throughout] Blood Pressure 114/63 139/65 146/62 O2 Sat by Pulse 99 99 Oximetry O2 Sat by Pulse Oximetry [ Anterior Bilateral Throughout] - Lab 12/24/16 04:50 12/24/16 04:50 Most recent lab results Calcium 7.4 mg/dL (8.4-10.2) L 12/24/16 04:50 Phosphorus 5.4 mg/dL (2.5-4.5) H D 12/18/16 18:21 Magnesium 2.5 mg/dL (1.7-2.3) H 12/17/16 09:10
[2016-12-24] MEDS: HEPARIN IV PRN (18:24)
[2016-12-24] MEDS ORDERED: ALBURX 25% (ALBUMIN) IV PRN (19:09)
--- NOTE | 2016-12-24 20:54 | Progress Note ---
Subjective Date of service: 12/24/16 Principal diagnosis: Acute hypoxemic respiratory failure, shock Interval history: Fever improving. PHYSICAL EXAM Vital signs - temp 102. chest - mild b/l rhonchi cvs - s1s2 abd - bs+ LABS See lab section ASSESSMENT 1. Pneumonia 2. Acute respiratory failure 3. Encephalopathy 4. CHF RECOMMENDATION 1. cbc/bmp in am 2. D/C IV FLUCONAZOLE. cONTINUE ORAL BACTRIM. Objective - Constitutional Vitals: Vital Signs Temp Pulse Resp BP Pulse Ox 100.1 F H 99 H 19 130/64 98 12/24/16 20:00 12/24/16 20:39 12/24/16 20:39 12/24/16 18:43 12/24/16 18:15 Temperature -Last 24 Hours Temperature 100.1 F Temperature 98.9 F Temperature 98.9 F Temperature 99.1 F Temperature 99.1 F Temperature 98.1 F Temperature 99.7 F Temperature 100.9 F - Labs CBC & Chem 7: 12/24/16 04:50 12/24/16 04:50 Labs: Abnormal lab results 12/23/16 12/23/16 12/23/16 Range/Units 07:44 12:12 13:44 Hgb (11.8-15.2) gm/dl Hct (35.5-45.6) % Plt Count (140-440) K/mm3 Sodium (137-145) mmol/L Chloride (98-107) mmol/L BUN (9-20) mg/dL Creatinine (0.8-1.5) mg/dL Glucose (75-100) mg/dL POC Glucose 122 H 117 H 127 H (70-105) Calcium (8.4-10.2) mg/dL 12/23/16 12/23/16 12/23/16 Range/Units 16:07 17:51 23:53 Hgb (11.8-15.2) gm/dl Hct (35.5-45.6) % Plt Count (140-440) K/mm3 Sodium (137-145) mmol/L Chloride (98-107) mmol/L BUN (9-20) mg/dL Creatinine (0.8-1.5) mg/dL Glucose (75-100) mg/dL POC Glucose 163 H 219 H 144 H (70-105) Calcium (8.4-10.2) mg/dL 12/24/16 12/24/16 12/24/16 Range/Units 04:50 04:50 05:19 Hgb 9.3 L (11.8-15.2) gm/dl Hct 26.9 L (35.5-45.6) % Plt Count 128 L (140-440) K/mm3 Sodium 134 L (137-145) mmol/L Chloride 94.6 L (98-107) mmol/L BUN 61 H (9-20) mg/dL Creatinine 4.4 H (0.8-1.5) mg/dL Glucose 144 H (75-100) mg/dL POC Glucose 139 H (70-105) Calcium 7.4 L (8.4-10.2) mg/dL 12/24/16 Range/Units 11:53 Hgb (11.8-15.2) gm/dl Hct (35.5-45.6) % Plt Count (140-440) K/mm3 Sodium (137-145) mmol/L Chloride (98-107) mmol/L BUN (9-20) mg/dL Creatinine (0.8-1.5) mg/dL Glucose (75-100) mg/dL POC Glucose 129 H (70-105) Calcium (8.4-10.2) mg/dL
[2016-12-24] MEDS: LEVOPHED 8 MG in NACL 0.9% 250ML 242 ML IV SCH (21:24)
[2016-12-24] MEDS: ZOCOR PO SCH (22:29)
--- NOTE | 2016-12-25 00:09 | Cat Scan Report ---
FINAL REPORT EXAM: CT CHEST WO CON HISTORY: pre-op planning for subclavian cath removal. TECHNIQUE: Helical CT of the thorax was performed from the lung apices through the bases. No intravenous contrast was given. Images are reconstructed in the sagittal and coronal planes. PRIORS: None. FINDINGS: There is a right-sided catheter with the tip in the right proximal subclavian artery. There is endotracheal tube in place that appears adequately positioned. There is NG tube in place that courses into the distal stomach and below the lower margin of the film. The heart is mildly enlarged. There is coronary artery atherosclerotic calcification. The thoracic aorta is normal in diameter. There are no abnormally enlarged hilar or mediastinal lymph nodes. There are multiple bilateral calcified pleural plaques. There is bilateral dependent subsegmental atelectasis. There is no evidence of pleural effusion. The visualized bones of the thorax appear normal. Images through the upper abdomen a nodular contour of the liver parenchyma. The liver was not completely scanned. The gallbladder appears distended and was also not completely scanned. IMPRESSION: 1. Tip of a right-sided central catheter is in the proximal subclavian artery. 2. Multiple bilateral calcified pleural plaques consistent with prior asbestos exposure 3. Bilateral dependent subsegmental atelectasis. 4. Nodular hepatic contour may be due to cirrhosis. Correlation with LFTs is recommended. 5. Distended gallbladder. The liver and gallbladder were not completely scanned. I gave a verbal report by phone regarding the right central catheter location to ADRIEL Renee at 12:03 a.m. eastern daylight time. Reportedly the doctors are aware of the location in the subclavian artery.
[2016-12-25] MEDS: DUONEB 0.5 MG-3 MG/3 ML SOLN IH SCH ×4 (02:06→20:35)
[2016-12-25] MEDS: HEPARIN SUB-Q SCH ×3 (06:19→22:16)
[2016-12-25 07:06] LABS: BUN/Creatinine Ratio 12.5; Calcium 7.5 mg/dL (8.4-10.2); Chloride 107.8 mmol/L (98-107); Potassium 4.1 mmol/L (3.6-5.0)
--- NOTE | 2016-12-25 08:12 | XRay Report ---
FINAL REPORT PROCEDURE: XR CHEST 1V AP TECHNIQUE: Chest radiograph anteroposterior view. CPT 06266 HISTORY: pulmonary edema vs pneumonia COMPARISON: Chest one view 12/17/2016 FINDINGS: Right subclavian CVC has its tip in the medial subclavian vein. Endotracheal tube is been retracted tube tip in good position at inferior clavicular head level. Feeding tube has its tip in the stomach. The trachea is midline. The heart is top-normal in size. Subtle fairly diffuse bilateral airspace disease is again seen grossly stable. Calcified pleural plaques are present bilaterally subtle. There is no evident pneumothorax or pleural fluid. The thoracic cage is intact.. IMPRESSION: Support lines in place as described. Endotracheal tube has been retracted in good position. Right subclavian CVC has its tip in the medial subclavian vein. Mild bilateral airspace disease stable and calcified pleural plaques.
--- NOTE | 2016-12-25 08:28 | Progress Note ---
Assessment and Plan Assessment and plan: Septic shock due to pneumonia.. Continue supportive care, IV fluid, antibiotics Zosyn iv, Zyvox, fluconazole . Still on Levophed Acute Respiratory failure due to Pneumonia. He is still intubated on ventilator. Pulmonology following. Acute metabolic encephalopathy. CT head unremarkable. Neurology following. Acute on chronic systolic CHF. EF 30% Cont aspirin, statin. Beta blockers on hold for now. cardiology following. Acute kidney Injury secondary to acute tubular necrosis from septic shock. He has been started on hemodialysis. Nephrology following. Cr 4.4 Hyperkalemia. This is now resolved. DKA with diabetes mellitus type 2. Now on Levemir Pneumonia due to strep pneumonia Bacteremia. One out of two blood cultures for micrococcus. Continue Zosyn and Zyvox. Sinus tachycardia. due to septic shock. Lopressor iv prn Hypernatremia. Hyponatremia. resolved. Sodium 147 today. Alcohol abuse. Hepatitis C He is still critically ill. History Interval history: Patient still intubated, Fever of 101 this morning Hospitalist Physical - Physical exam Narrative exam: Gen: Intubated, on ventilator, HEENT: normocephalic,atraumatic Neck : no JVD Lungs: bilateral crackles, no wheezes Heart: S1 and S2 regular, no murmurs no gallops,no rubs Abdomen: soft nontender, nondistended, normal bowel sounds Extremities: no edema, no clubbing or cyanosis Neuro: Intubated, sedated, - Constitutional Vitals: Temp Pulse Resp BP Pulse Ox 100.9 F H 100 H 15 110/54 93 12/25/16 04:00 12/25/16 08:18 12/25/16 08:17 12/25/16 08:18 12/25/16 08:18 General appearance: Present: other (intubated) Results - Labs CBC & Chem 7: 12/24/16 04:50 12/25/16 05:15 Labs: Laboratory Last Values WBC 8.1 K/mm3 (4.5-11.0) 12/23/16 05:00 RBC 2.67 M/mm3 (3.65-5.03) L 12/23/16 05:00 Hgb 9.3 gm/dl (11.8-15.2) L 12/24/16 04:50 Hct 26.9 % (35.5-45.6) L 12/24/16 04:50 MCV 89 fl (84-94) 12/23/16 05:00 MCH 30 pg (28-32) 12/23/16 05:00 MCHC 34 % (32-34) 12/23/16 05:00 RDW 13.0 % (13.2-15.2) L 12/23/16 05:00 Plt Count 128 K/mm3 (140-440) L 12/24/16 04:50 Lymph % (Auto) 11.3 % (13.4-35.0) L 12/19/16 04:20 Giles % (Auto) 4.0 % (0.0-7.3) 12/19/16 04:20 Eos % (Auto) 0.3 % (0.0-4.3) 12/19/16 04:20 Baso % (Auto) 0.5 % (0.0-1.8) 12/19/16 04:20 Lymph # 1.3 K/mm3 (1.2-5.4) 12/19/16 04:20 Giles # 0.5 K/mm3 (0.0-0.8) 12/19/16 04:20 Eos # 0.0 K/mm3 (0.0-0.4) 12/19/16 04:20 Baso # 0.1 K/mm3 (0.0-0.1) 12/19/16 04:20 Seg Neutrophils % 83.9 % (40.0-70.0) H 12/19/16 04:20 Seg Neutrophils # 9.9 K/mm3 (1.8-7.7) H 12/19/16 04:20 PT 18.8 Sec. (12.2-14.9) H 12/18/16 16:55 INR 1.58 (0.87-1.13) H 12/18/16 16:55 APTT 34.5 Sec. (24.2-36.6) 12/18/16 16:55 D-Dimer 586.01 ng/mlDDU (0-234) H 12/14/16 18:03 POC ABG pH 7.392 (7.35-7.45) 12/23/16 04:48 POC ABG pCO2 37.6 (35-45) 12/23/16 04:48 POC ABG pO2 123 (80-105) H 12/23/16 04:48 POC ABG HCO3 22.9 12/23/16 04:48 POC ABG Total CO2 24 12/23/16 04:48 POC ABG O2 Sat 99 12/23/16 04:48 POC ABG Base Excess -2 12/23/16 04:48 FiO2 40 % 12/23/16 04:48 Sodium 147 mmol/L (137-145) H D 12/25/16 05:15 Potassium 4.1 mmol/L (3.6-5.0) 12/25/16 05:15 Chloride 107.8 mmol/L (98-107) H 12/25/16 05:15 Carbon Dioxide 22 mmol/L (22-30) 12/25/16 05:15 Anion Gap 21 mmol/L 12/25/16 05:15 BUN 45 mg/dL (9-20) H 12/25/16 05:15 Creatinine 3.6 mg/dL (0.8-1.5) H 12/25/16 05:15 Estimated GFR 17 ml/min 12/25/16 05:15 BUN/Creatinine Ratio 12.50 % 12/25/16 05:15 Glucose 150 mg/dL (75-100) H 12/25/16 05:15 POC Glucose 160 (70-105) H 12/25/16 00:09 Lactic Acid 1.9 mmol/L (0.7-2.0) 12/18/16 09:00 Calcium 7.5 mg/dL (8.4-10.2) L 12/25/16 05:15 Phosphorus 5.4 mg/dL (2.5-4.5) H D 12/18/16 18:21 Magnesium 2.5 mg/dL (1.7-2.3) H 12/17/16 09:10 Total Bilirubin 0.9 mg/dL (0.1-1.2) 12/19/16 04:20 Direct Bilirubin 0.7 mg/dL (0-0.2) H 12/07/16 05:30 Indirect Bilirubin 0.4 mg/dL 12/07/16 05:30 AST 1058 units/L (5-40) H 12/19/16 04:20 ALT 133 units/L (7-56) H 12/19/16 04:20 Alkaline Phosphatase 35 units/L (35-129) 12/19/16 04:20 Ammonia 42.0 umol/L (25-60) 12/06/16 16:07 Total Creatine Kinase 242 units/L (55-170) H 12/07/16 06:58 CK-MB (CK-2) 2.8 ng/mL (0.0-4.0) 12/07/16 06:58 CK-MB (CK-2) Rel Index 1.1 (0-4) 12/07/16 06:58 Troponin T < 0.010 ng/mL (0.00-0.029) 12/07/16 06:58 C-Reactive Protein 1.20 mg/dL (0.00-1.30) 12/15/16 11:37 Total Protein 6.1 g/dL (6.3-8.2) L 12/19/16 04:20 Albumin 2.3 g/dL (3.9-5) L 12/19/16 04:20 Albumin/Globulin Ratio 0.6 % 12/19/16 04:20 Vitamin B12 815.1 pg/mL (211-911) 12/15/16 09:15 TSH 0.204 mlU/mL (0.270-4.200) L 12/15/16 13:40 Free T4 1.16 ng/dL (0.76-1.46) 12/15/16 13:40 Urine Color Winsome (Yellow) 12/06/16 15:30 Urine Turbidity Clear (Clear) 12/06/16 15:30 Urine pH 6.0 (5.0-7.0) 12/06/16 15:30 Ur Specific [place] 1.017 (1.003-1.030) 12/06/16 15:30 Urine Protein 100 mg/dl mg/dL (Negative) 12/06/16 15:30 Urine Glucose (UA) 50 mg/dL (Negative) 12/06/16 15:30 Urine Ketones Neg mg/dL (Negative) 12/06/16 15:30 Urine Blood Sm (Negative) 12/06/16 15:30 Urine Nitrite Neg (Negative) 12/06/16 15:30 Urine Bilirubin Neg (Negative) 12/06/16 15:30 Urine Urobilinogen 4.0 mg/dL (<2.0) 12/06/16 15:30 Ur Leukocyte Esterase Neg (Negative) 12/06/16 15:30 Urine WBC (Auto) < 1.0 /HPF (0.0-6.0) 12/06/16 15:30 Urine RBC (Auto) 4.0 /HPF (0.0-6.0) 12/06/16 15:30 Urine Mucus Few /HPF 12/06/16 15:30 Vancomycin Trough 33.7 ug/mL (5.0-20.0) H 12/16/16 18:34 Salicylates < 0.3 mg/dL (2.8-20.0) L 12/06/16 16:07 Urine Opiates Screen Presumptive negative 12/06/16 15:30 Urine Methadone Screen Presumptive negative 12/06/16 15:30 Acetaminophen < 15.0 ug/mL (10.0-30.0) 12/06/16 16:07 Ur Barbiturates Screen Presumptive negative 12/06/16 15:30 Ur Phencyclidine Scrn Presumptive negative 12/06/16 15:30 Ur Amphetamines Screen Presumptive negative 12/06/16 15:30 U Benzodiazepines Scrn Presumptive negative 12/06/16 15:30 Urine Cocaine Screen Presumptive negative 12/06/16 15:30 U Marijuana (THC) Screen Presumptive negative 12/06/16 15:30 Drugs of Abuse Note Disclamer 12/06/16 15:30 Plasma/Serum Alcohol < 0.01 gm% (0-0.07) 12/06/16 16:07 Hepatitis A IgM Ab Non-reactive (NonReactive) 12/18/16 18:21 Hep Bs Antigen Non-reactive (Negative) 12/18/16 18:21 Hep B Core IgM Ab Non-reactive (NonReactive) 12/18/16 18:21 Hepatitis C Antibody Reactive (NonReactive) 12/18/16 18:21 Blood Type A NEGATIVE 12/23/16 07:30 Antibody Screen Negative 12/23/16 07:30 Crossmatch See Detail 12/23/16 07:30
[2016-12-25] MEDS: TYLENOL FEEDTUBE PRN (08:35)
[2016-12-25] MEDS: Centrum Liq PO SCH (10:43)
[2016-12-25] MEDS: BABY ASPIRIN PO SCH (10:43)
[2016-12-25] MEDS: BACTRIM DS PO SCH ×2 (10:43→22:16)
[2016-12-25] MEDS: FOLVITE PO SCH (10:43)
[2016-12-25] MEDS: PROTONIX PO SCH (10:44)
[2016-12-25] MEDS: REGLAN IV SCH ×2 (10:44→22:16)
[2016-12-25] MEDS: LEVEMIR SUB-Q SCH (10:44)
[2016-12-25] MEDS: VITAMIN B-1 PO SCH (10:45)
--- NOTE | 2016-12-25 11:39 | Progress Note ---
Assessment and Plan - Patient Problems (1) Acute hypoxemic respiratory failure Current Visit: Yes Status: Acute Plan to address problem: - remains intubated - continue aspiration precautions - continue bronchodilators and pulmonary toilet - continue to wean FiO2 for sats > 94% - reduced set rate to 16/min - will begin PSV trials in am if tolerates bedside SBT (failed again today) - adjust sedation to control tachypnea prn (2) Altered mental status Current Visit: Yes Status: Acute Qualifiers: Altered mental status type: A Coma depth: C Coma timing: C Plan to address problem: - seen by neurology - prn sedation / benzo's - multi-factorial really including azotemia - will follow neurology recommendations - overall improved (3) Septic shock Current Visit: Yes Status: Acute Plan to address problem: - complete AB's as per ID recs - r/o VTE re: fevers (dopplers negative) - continue to wean vasopressors for MAP > 60-65mmHg - IVF per nephrology at this point (4) Diabetes Current Visit: No Status: Chronic Qualifiers: Diabetes mellitus type: D Diabetes mellitus complication status: D Diabetes mellitus complication detail: D Diabetic retinopathy severity: D Proliferative retinopathy type: P Diabetes mellitus macular edema: D Diabetes mellitus manager terminal insulin use: D Laterality: L Chronic kidney disease stage: C Plan to address problem: - transitioned off IV insulin therapy - continue SSI (5) BRITTANY (acute kidney injury) Current Visit: Yes Status: Deleted Plan to address problem: - nephrology on case - s/p vas-cath - HD/UF per nephrology recs - tolerating dialysis better now hemodynamically (6) Subclavian artery injury Current Visit: Yes Status: Acute Qualifiers: Encounter type: E Laterality: L Plan to address problem: - seen by vascular team - phased extraction approach which may involve trip to labor and delivery nurse or O.R. - H&H holding - s/p extraction today (7) Discharge planning issues Current Visit: Yes Status: Acute Plan to address problem: - LTAC evaluation on hold for now - suspect he will need a tracheostomy especially re: initial failed extubation ...he is critically ill on life sustaining interventions including MVS and at risk for further deterioration including ...30' CCT Subjective Date of service: 12/25/16 Principal diagnosis: Acute hypoxemic respiratory failure, shock Interval history: Seen and examined at bedside; 24 hour events reviewed; nursing and respiratory care staff consulted; no adverse overnight events reported to me; remains on MVS ; AMS is persistent; no emesis or overt aspiration Objective Vital Signs - 12hr 12/24/16 12/25/16 12/25/16 23:45 00:00 00:15 Temperature 100.6 F H Pulse Rate 100 H 99 H 112 H Pulse Rate [ Bilateral Throughout] Pulse Rate [ 101 H From Monitor] Respiratory 18 16 18 Rate Respiratory Rate [Bilateral Throughout] Blood Pressure 119/56 102/54 112/56 O2 Sat by Pulse 96 95 95 Oximetry 12/25/16 12/25/16 12/25/16 00:22 00:30 00:45 Temperature Pulse Rate 102 H 101 H 100 H Pulse Rate [ Bilateral Throughout] Pulse Rate [ From Monitor] Respiratory 18 15 Rate Respiratory Rate [Bilateral Throughout] Blood Pressure 101/79 104/53 95/50 O2 Sat by Pulse 95 97 95 Oximetry 12/25/16 12/25/16 12/25/16 01:00 01:15 01:30 Temperature Pulse Rate 98 H 94 H 92 H Pulse Rate [ Bilateral Throughout] Pulse Rate [ From Monitor] Respiratory 17 17 15 Rate Respiratory Rate [Bilateral Throughout] Blood Pressure 85/48 89/47 80/45 O2 Sat by Pulse 97 97 98 Oximetry 12/25/16 12/25/16 12/25/16 01:45 02:00 02:06 Temperature Pulse Rate 93 H 90 Pulse Rate [ 91 H Bilateral Throughout] Pulse Rate [ From Monitor] Respiratory 18 18 Rate Respiratory 17 Rate [Bilateral Throughout] Blood Pressure 81/46 84/45 O2 Sat by Pulse 98 98 Oximetry 12/25/16 12/25/16 12/25/16 02:15 02:16 02:30 Temperature Pulse Rate 94 H 98 H Pulse Rate [ 94 H Bilateral Throughout] Pulse Rate [ From Monitor] Respiratory 18 15 Rate Respiratory 16 Rate [Bilateral Throughout] Blood Pressure 97/52 107/57 O2 Sat by Pulse 97 98 Oximetry 12/25/16 12/25/16 12/25/16 02:45 03:00 03:15 Temperature Pulse Rate 106 H 98 H 99 H Pulse Rate [ Bilateral Throughout] Pulse Rate [ From Monitor] Respiratory 18 19 18 Rate Respiratory Rate [Bilateral Throughout] Blood Pressure 109/59 109/54 106/54 O2 Sat by Pulse 98 98 98 Oximetry 0312/25/16 12/25/16 03:30 03:45 04:00 Temperature 100.9 F H Pulse Rate 107 H 97 H 108 H Pulse Rate [ Bilateral Throughout] Pulse Rate [ 99 H From Monitor] Respiratory 17 19 16 Rate Respiratory Rate [Bilateral Throughout] Blood Pressure 108/59 113/52 107/62 O2 Sat by Pulse 97 99 98 Oximetry 12/25/16 12/25/16 12/25/16 04:15 04:30 04:45 Temperature Pulse Rate 98 H 98 H 97 H Pulse Rate [ Bilateral Throughout] Pulse Rate [ From Monitor] Respiratory 18 22 16 Rate Respiratory Rate [Bilateral Throughout] Blood Pressure 93/47 100/50 98/49 O2 Sat by Pulse 97 98 98 Oximetry 12/25/16 12/25/16 12/25/16 05:01 05:15 05:30 Temperature Pulse Rate 102 H 101 H 104 H Pulse Rate [ Bilateral Throughout] Pulse Rate [ From Monitor] Respiratory 19 17 Rate Respiratory Rate [Bilateral Throughout] Blood Pressure 120/61 121/54 117/57 O2 Sat by Pulse 95 93 93 Oximetry 12/25/16 12/25/16 12/25/16 05:45 06:00 06:15 Temperature Pulse Rate 104 H 103 H 100 H Pulse Rate [ Bilateral Throughout] Pulse Rate [ From Monitor] Respiratory 15 17 18 Rate Respiratory Rate [Bilateral Throughout] Blood Pressure 109/57 114/54 106/51 O2 Sat by Pulse 93 93 94 Oximetry 12/25/16 12/25/16 12/25/16 06:30 06:45 07:00 Temperature Pulse Rate 99 H 98 H 100 H Pulse Rate [ Bilateral Throughout] Pulse Rate [ From Monitor] Respiratory 15 19 18 Rate Respiratory Rate [Bilateral Throughout] Blood Pressure 94/48 95/48 91/49 O2 Sat by Pulse 92 92 92 Oximetry 12/25/16 12/25/16 12/25/16 07:15 07:30 07:45 Temperature Pulse Rate 95 H 96 H 96 H Pulse Rate [ Bilateral Throughout] Pulse Rate [ From Monitor] Respiratory 17 17 20 Rate Respiratory Rate [Bilateral Throughout] Blood Pressure 86/48 96/50 105/54 O2 Sat by Pulse 92 94 94 Oximetry 12/25/16 12/25/16 12/25/16 08:00 08:17 08:18 Temperature 101 F H Pulse Rate 104 H 100 H Pulse Rate [ 94 H Bilateral Throughout] Pulse Rate [ From Monitor] Respiratory 17 Rate Respiratory 15 Rate [Bilateral Throughout] Blood Pressure 105/55 110/54 O2 Sat by Pulse 95 93 Oximetry 12/25/16 12/25/16 08:35 10:47 Temperature Pulse Rate 100 H Pulse Rate [ Bilateral Throughout] Pulse Rate [ From Monitor] Respiratory 16 Rate Respiratory Rate [Bilateral Throughout] Blood Pressure 110/54 O2 Sat by Pulse 93 Oximetry Constitutional: other (sedated) Eyes: non-icteric ENT: oropharynx moist Neck: supple, no lymphadenopathy, no JVD Effort: mildly labored Ascultation: Bilateral: clear, diminished breath sounds, rales (basilar and scant), rhonchi Cardiovascular: regular rate and rhythm Gastrointestinal: normoactive bowel sounds, hypoactive bowel sounds, soft, non- tender, non-distended Integumentary: normal Extremities: no cyanosis, pink and warm, pulses normal, no ischemia or petechiae Neurologic: non-focal exam (grossly), pupils equal and round, unable to assess Psychiatric: other (sedated) CBC and BMP: 12/27/16 05:11 12/29/16 04:30 ABG, PT/INR, D-dimer: ABG POC ABG pH 7.392 (7.35-7.45) 12/23/16 04:48 POC ABG pCO2 37.6 (35-45) 12/23/16 04:48 POC ABG pO2 123 (80-105) H 12/23/16 04:48 POC ABG HCO3 22.9 12/23/16 04:48 POC ABG Total CO2 24 12/23/16 04:48 POC ABG O2 Sat 99 12/23/16 04:48 PT/INR, D-dimer PT 18.8 Sec. (12.2-14.9) H 12/18/16 16:55 INR 1.58 (0.87-1.13) H 12/18/16 16:55 D-Dimer 586.01 ng/mlDDU (0-234) H 12/14/16 18:03 Abnormal lab findings: Abnormal Labs 12/07/16 12/07/16 12/07/16 00:35 05:30 05:30 WBC RBC Hgb Hct MCV MCHC RDW 13.0 L Plt Count 93 L Lymph % (Auto) [place] % (Auto) 11.2 H [place] # 1.1 H Baso # Seg Neutrophils % 71.3 H Seg Neutrophils # PT INR D-Dimer POC ABG pH POC ABG pCO2 POC ABG pO2 Sodium Potassium Chloride Carbon Dioxide BUN Creatinine 0.6 L Glucose 168 H POC Glucose Lactic Acid Calcium 7.8 L Phosphorus Magnesium Direct Bilirubin 0.7 H AST ALT Alkaline Phosphatase Total Creatine Kinase 343 H C-Reactive Protein Total Protein Albumin 2.6 L TSH Vancomycin Trough Crossmatch 12/07/16 12/07/16 12/07/16 06:58 16:41 18:30 WBC RBC Hgb Hct MCV MCHC RDW Plt Count Lymph % (Auto) [place] % (Auto) [place] # Baso # Seg Neutrophils % Seg Neutrophils # PT INR D-Dimer POC ABG pH POC ABG pCO2 POC ABG pO2 Sodium Potassium Chloride Carbon Dioxide BUN Creatinine Glucose POC Glucose 175 H Lactic Acid Calcium Phosphorus Magnesium Direct Bilirubin AST ALT Alkaline Phosphatase Total Creatine Kinase 242 H C-Reactive Protein 7.70 H Total Protein Albumin TSH Vancomycin Trough Crossmatch 12/09/16 12/10/16 12/10/16 11:58 06:05 12:24 WBC RBC Hgb Hct MCV MCHC RDW Plt Count Lymph % (Auto) [place] % (Auto) [place] # Baso # Seg Neutrophils % Seg Neutrophils # PT INR D-Dimer POC ABG pH 7.485 H POC ABG pCO2 POC ABG pO2 Sodium Potassium Chloride Carbon Dioxide BUN Creatinine Glucose POC Glucose 141 H 183 H Lactic Acid Calcium Phosphorus Magnesium Direct Bilirubin AST ALT Alkaline Phosphatase Total Creatine Kinase C-Reactive Protein Total Protein Albumin TSH Vancomycin Trough Crossmatch 12/10/16 12/10/16 12/11/16 17:47 23:21 06:10 WBC RBC Hgb Hct MCV MCHC RDW Plt Count Lymph % (Auto) [place] % (Auto) [place] # Baso # Seg Neutrophils % Seg Neutrophils # PT INR D-Dimer POC ABG pH POC ABG pCO2 POC ABG pO2 Sodium Potassium Chloride Carbon Dioxide BUN Creatinine Glucose POC Glucose 176 H 240 H 252 H Lactic Acid Calcium Phosphorus Magnesium Direct Bilirubin AST ALT Alkaline Phosphatase Total Creatine Kinase C-Reactive Protein Total Protein Albumin TSH Vancomycin Trough Crossmatch 12/11/16 12/11/16 12/11/16 08:29 09:14 11:37 WBC RBC Hgb Hct MCV MCHC RDW 13.1 L Plt Count Lymph % (Auto) [place] % (Auto) [place] # Baso # Seg Neutrophils % Seg Neutrophils # PT INR D-Dimer POC ABG pH POC ABG pCO2 POC ABG pO2 Sodium Potassium Chloride Carbon Dioxide BUN Creatinine Glucose POC Glucose 253 H 284 H Lactic Acid Calcium Phosphorus Magnesium Direct Bilirubin AST ALT Alkaline Phosphatase Total Creatine Kinase C-Reactive Protein Total Protein Albumin TSH Vancomycin Trough Crossmatch 12/11/16 12/11/16 12/11/16 16:12 17:54 23:35 WBC RBC Hgb Hct MCV MCHC RDW Plt Count Lymph % (Auto) [place] % (Auto) [place] # Baso # Seg Neutrophils % Seg Neutrophils # PT INR D-Dimer POC ABG pH POC ABG pCO2 POC ABG pO2 Sodium Potassium Chloride Carbon Dioxide BUN 37 H Creatinine Glucose 258 H POC Glucose 227 H 264 H Lactic Acid Calcium 8.3 L Phosphorus Magnesium Direct Bilirubin AST ALT Alkaline Phosphatase Total Creatine Kinase C-Reactive Protein Total Protein Albumin 2.6 L TSH Vancomycin Trough Crossmatch 12/12/16 12/12/16 12/12/16 04:37 06:06 10:12 WBC RBC Hgb Hct MCV MCHC RDW Plt Count Lymph % (Auto) [place] % (Auto) [place] # Baso # Seg Neutrophils % Seg Neutrophils # PT INR D-Dimer POC ABG pH 7.500 H POC ABG pCO2 POC ABG pO2 69 L Sodium Potassium Chloride Carbon Dioxide BUN Creatinine Glucose POC Glucose 288 H Lactic Acid Calcium Phosphorus Magnesium Direct Bilirubin AST ALT Alkaline Phosphatase Total Creatine Kinase C-Reactive Protein Total Protein Albumin TSH Vancomycin Trough Crossmatch 12/12/16 12/12/16 12/12/16 13:08 17:46 23:31 WBC RBC Hgb Hct MCV MCHC RDW Plt Count Lymph % (Auto) [place] % (Auto) [place] # Baso # Seg Neutrophils % Seg Neutrophils # PT INR D-Dimer POC ABG pH POC ABG pCO2 POC ABG pO2 Sodium Potassium Chloride Carbon Dioxide BUN Creatinine Glucose POC Glucose 215 H 234 H 241 H Lactic Acid Calcium Phosphorus Magnesium Direct Bilirubin AST ALT Alkaline Phosphatase Total Creatine Kinase C-Reactive Protein Total Protein Albumin TSH Vancomycin Trough Crossmatch 12/13/16 12/13/16 12/13/16 05:38 11:44 17:32 WBC RBC Hgb Hct MCV MCHC RDW Plt Count Lymph % (Auto) [place] % (Auto) [place] # Baso # Seg Neutrophils % Seg Neutrophils # PT INR D-Dimer POC ABG pH POC ABG pCO2 POC ABG pO2 Sodium Potassium Chloride Carbon Dioxide BUN Creatinine Glucose POC Glucose 215 H 237 H 215 H Lactic Acid Calcium Phosphorus Magnesium Direct Bilirubin AST ALT Alkaline Phosphatase Total Creatine Kinase C-Reactive Protein Total Protein Albumin TSH Vancomycin Trough Crossmatch 12/14/16 12/14/16 12/14/16 00:22 05:40 12:03 WBC RBC Hgb Hct MCV MCHC RDW Plt Count Lymph % (Auto) [place] % (Auto) [place] # Baso # Seg Neutrophils % Seg Neutrophils # PT INR D-Dimer POC ABG pH POC ABG pCO2 POC ABG pO2 Sodium Potassium Chloride Carbon Dioxide BUN Creatinine Glucose POC Glucose 268 H 301 H 312 H Lactic Acid Calcium Phosphorus Magnesium Direct Bilirubin AST ALT Alkaline Phosphatase Total Creatine Kinase C-Reactive Protein Total Protein Albumin TSH Vancomycin Trough Crossmatch 12/14/16 12/14/16 12/14/16 18:03 18:03 18:03 WBC RBC Hgb Hct MCV MCHC RDW 12.9 L Plt Count Lymph % (Auto) [place] % (Auto) 8.0 H [place] # Baso # Seg Neutrophils % 72.4 H Seg Neutrophils # PT INR D-Dimer 586.01 H POC ABG pH POC ABG pCO2 POC ABG pO2 Sodium 150 H Potassium Chloride 109.1 H Carbon Dioxide BUN 50 H Creatinine Glucose 261 H POC Glucose Lactic Acid Calcium Phosphorus Magnesium Direct Bilirubin AST ALT Alkaline Phosphatase Total Creatine Kinase C-Reactive Protein Total Protein Albumin TSH Vancomycin Trough Crossmatch 12/14/16 12/14/16 12/14/16 18:30 21:55 23:59 WBC RBC Hgb Hct MCV MCHC RDW Plt Count Lymph % (Auto) [place] % (Auto) [place] # Baso # Seg Neutrophils % Seg Neutrophils # PT INR D-Dimer POC ABG pH POC ABG pCO2 POC ABG pO2 Sodium Potassium Chloride Carbon Dioxide BUN Creatinine Glucose POC Glucose 321 H 258 H 262 H Lactic Acid Calcium Phosphorus Magnesium Direct Bilirubin AST ALT Alkaline Phosphatase Total Creatine Kinase C-Reactive Protein Total Protein Albumin TSH Vancomycin Trough Crossmatch 12/15/16 12/15/16 12/15/16 05:28 06:04 09:15 WBC RBC Hgb Hct MCV MCHC RDW Plt Count Lymph % (Auto) [place] % (Auto) [place] # Baso # Seg Neutrophils % Seg Neutrophils # PT INR D-Dimer POC ABG pH POC ABG pCO2 POC ABG pO2 Sodium Potassium Chloride Carbon Dioxide BUN Creatinine Glucose POC Glucose 274 H 276 H Lactic Acid Calcium Phosphorus Magnesium Direct Bilirubin AST ALT Alkaline Phosphatase Total Creatine Kinase C-Reactive Protein Total Protein Albumin TSH 0.220 L Vancomycin Trough Crossmatch 12/15/16 12/15/16 12/15/16 11:59 13:40 18:06 WBC RBC Hgb Hct MCV MCHC RDW Plt Count Lymph % (Auto) [place] % (Auto) [place] # Baso # Seg Neutrophils % Seg Neutrophils # PT INR D-Dimer POC ABG pH POC ABG pCO2 33.3 L POC ABG pO2 70 L Sodium Potassium Chloride Carbon Dioxide BUN Creatinine Glucose POC Glucose 273 H Lactic Acid Calcium Phosphorus Magnesium Direct Bilirubin AST ALT Alkaline Phosphatase Total Creatine Kinase C-Reactive Protein Total Protein Albumin TSH 0.204 L Vancomycin Trough Crossmatch 12/15/16 12/15/16 12/16/16 18:14 21:26 02:08 WBC RBC Hgb Hct MCV MCHC RDW Plt Count Lymph % (Auto) [place] % (Auto) [place] # Baso # Seg Neutrophils % Seg Neutrophils # PT INR D-Dimer POC ABG pH 7.341 L POC ABG pCO2 POC ABG pO2 223 H Sodium Potassium Chloride Carbon Dioxide BUN Creatinine Glucose POC Glucose 234 H 371 H Lactic Acid Calcium Phosphorus Magnesium Direct Bilirubin AST ALT Alkaline Phosphatase Total Creatine Kinase C-Reactive Protein Total Protein Albumin TSH Vancomycin Trough Crossmatch 12/16/16 12/16/16 12/16/16 05:12 05:18 09:40 WBC RBC Hgb Hct MCV MCHC RDW Plt Count Lymph % (Auto) [place] % (Auto) [place] # Baso # Seg Neutrophils % Seg Neutrophils # PT INR D-Dimer POC ABG pH POC ABG pCO2 32.5 L POC ABG pO2 Sodium 154 H Potassium Chloride 116.8 H Carbon Dioxide 18 L D BUN 92 H Creatinine 3.0 H D Glucose 364 H POC Glucose 357 H Lactic Acid Calcium 8.2 L Phosphorus Magnesium Direct Bilirubin AST ALT Alkaline Phosphatase Total Creatine Kinase C-Reactive Protein Total Protein Albumin TSH Vancomycin Trough Crossmatch 12/16/16 12/16/16 12/16/16 13:40 18:27 18:34 WBC RBC Hgb Hct MCV MCHC RDW Plt Count Lymph % (Auto) [place] % (Auto) [place] # Baso # Seg Neutrophils % Seg Neutrophils # PT INR D-Dimer POC ABG pH POC ABG pCO2 POC ABG pO2 Sodium Potassium Chloride Carbon Dioxide BUN Creatinine Glucose POC Glucose 391 H 472 H Lactic Acid Calcium Phosphorus Magnesium Direct Bilirubin AST ALT Alkaline Phosphatase Total Creatine Kinase C-Reactive Protein Total Protein Albumin TSH Vancomycin Trough 33.7 H Crossmatch 12/17/16 12/17/16 12/17/16 00:38 01:54 05:53 WBC RBC Hgb Hct MCV MCHC RDW Plt Count Lymph % (Auto) [place] % (Auto) [place] # Baso # Seg Neutrophils % Seg Neutrophils # PT INR D-Dimer POC ABG pH 7.234 L POC ABG pCO2 34.5 L POC ABG pO2 50 L Sodium Potassium Chloride Carbon Dioxide BUN Creatinine Glucose POC Glucose 386 H 400 H Lactic Acid Calcium Phosphorus Magnesium Direct Bilirubin AST ALT Alkaline Phosphatase Total Creatine Kinase C-Reactive Protein Total Protein Albumin TSH Vancomycin Trough Crossmatch 12/17/16 12/17/16 12/17/16 06:45 06:45 07:45 WBC 12.3 H RBC Hgb 11.7 L Hct MCV 97 H D MCHC 31 L RDW Plt Count Lymph % (Auto) [place] % (Auto) 14.4 H [place] # 1.8 H Baso # 0.2 H Seg Neutrophils % Seg Neutrophils # 8.2 H PT INR D-Dimer POC ABG pH POC ABG pCO2 POC ABG pO2 Sodium Potassium 7.6 H* D Chloride 110.8 H Carbon Dioxide 14 L BUN 121 H Creatinine 5.4 H D Glucose 566 H* POC Glucose > 500 H Lactic Acid Calcium 6.2 L D Phosphorus Magnesium Direct Bilirubin AST 323 H ALT Alkaline Phosphatase 27 L Total Creatine Kinase C-Reactive Protein Total Protein Albumin 2.3 L TSH Vancomycin Trough Crossmatch 12/17/16 12/17/16 12/17/16 08:51 09:10 09:11 WBC RBC Hgb Hct MCV MCHC RDW Plt Count Lymph % (Auto) [place] % (Auto) [place] # Baso # Seg Neutrophils % Seg Neutrophils # PT INR D-Dimer POC ABG pH 7.113 L POC ABG pCO2 46.1 H POC ABG pO2 186 H Sodium Potassium Chloride Carbon Dioxide BUN Creatinine Glucose POC Glucose > 500 H Lactic Acid Calcium Phosphorus 9.5 H Magnesium 2.5 H Direct Bilirubin AST ALT Alkaline Phosphatase Total Creatine Kinase C-Reactive Protein Total Protein Albumin TSH Vancomycin Trough Crossmatch 12/17/16 12/17/16 12/17/16 10:18 10:50 11:17 WBC RBC Hgb Hct MCV MCHC RDW Plt Count Lymph % (Auto) [place] % (Auto) [place] # Baso # Seg Neutrophils % Seg Neutrophils # PT INR D-Dimer POC ABG pH POC ABG pCO2 POC ABG pO2 Sodium Potassium 6.1 H* Chloride 110.1 H Carbon Dioxide 14 L BUN 128 H Creatinine 5.5 H Glucose 580 H* POC Glucose > 500 H > 500 H Lactic Acid Calcium Phosphorus Magnesium Direct Bilirubin AST ALT Alkaline Phosphatase Total Creatine Kinase C-Reactive Protein Total Protein Albumin TSH Vancomycin Trough Crossmatch 12/17/16 12/17/16 12/17/16 12:09 12:30 13:36 WBC RBC Hgb Hct MCV MCHC RDW Plt Count Lymph % (Auto) [place] % (Auto) [place] # Baso # Seg Neutrophils % Seg Neutrophils # PT INR D-Dimer POC ABG pH POC ABG pCO2 POC ABG pO2 Sodium Potassium 5.6 H Chloride 110.4 H Carbon Dioxide 14 L BUN 138 H Creatinine 5.3 H Glucose 528 H* POC Glucose 428 H 426 H Lactic Acid Calcium 6.8 L D Phosphorus Magnesium Direct Bilirubin AST ALT Alkaline Phosphatase Total Creatine Kinase C-Reactive Protein Total Protein Albumin TSH Vancomycin Trough Crossmatch 12/17/16 12/17/16 12/17/16 14:11 14:25 14:45 WBC RBC Hgb Hct MCV MCHC RDW Plt Count Lymph % (Auto) [place] % (Auto) [place] # Baso # Seg Neutrophils % Seg Neutrophils # PT INR D-Dimer POC ABG pH 7.297 L POC ABG pCO2 34.2 L POC ABG pO2 114 H Sodium 146 H Potassium 5.3 H Chloride 109.3 H Carbon Dioxide 15 L BUN 128 H Creatinine 5.5 H Glucose 426 H POC Glucose 422 H Lactic Acid Calcium 6.7 L Phosphorus Magnesium Direct Bilirubin AST ALT Alkaline Phosphatase Total Creatine Kinase C-Reactive Protein Total Protein Albumin TSH Vancomycin Trough Crossmatch 12/17/16 12/17/16 12/17/16 15:07 16:03 16:56 WBC RBC Hgb Hct MCV MCHC RDW Plt Count Lymph % (Auto) [place] % (Auto) [place] # Baso # Seg Neutrophils % Seg Neutrophils # PT INR D-Dimer POC ABG pH POC ABG pCO2 POC ABG pO2 Sodium Potassium Chloride Carbon Dioxide BUN Creatinine Glucose POC Glucose 392 H 450 H 352 H Lactic Acid Calcium Phosphorus Magnesium Direct Bilirubin AST ALT Alkaline Phosphatase Total Creatine Kinase C-Reactive Protein Total Protein Albumin TSH Vancomycin Trough Crossmatch 12/17/16 12/17/16 12/17/16 18:00 18:10 18:38 WBC RBC Hgb Hct MCV MCHC RDW Plt Count Lymph % (Auto) [place] % (Auto) [place] # Baso # Seg Neutrophils % Seg Neutrophils # PT INR D-Dimer POC ABG pH POC ABG pCO2 POC ABG pO2 Sodium 147 H Potassium Chloride 109.7 H Carbon Dioxide 15 L BUN 140 H Creatinine 5.2 H Glucose 301 H POC Glucose 318 H 256 H Lactic Acid Calcium 6.5 L Phosphorus Magnesium Direct Bilirubin AST ALT Alkaline Phosphatase Total Creatine Kinase C-Reactive Protein Total Protein Albumin TSH Vancomycin Trough Crossmatch 12/17/16 12/17/16 12/17/16 19:31 20:00 20:44 WBC RBC Hgb Hct MCV MCHC RDW Plt Count Lymph % (Auto) [place] % (Auto) [place] # Baso # Seg Neutrophils % Seg Neutrophils # PT 17.7 H INR 1.46 H D-Dimer POC ABG pH POC ABG pCO2 30.5 L POC ABG pO2 134 H Sodium Potassium Chloride Carbon Dioxide BUN Creatinine Glucose POC Glucose 189 H Lactic Acid Calcium Phosphorus Magnesium Direct Bilirubin AST ALT Alkaline Phosphatase Total Creatine Kinase C-Reactive Protein Total Protein Albumin TSH Vancomycin Trough Crossmatch 12/17/16 12/17/16 12/18/16 21:59 23:18 00:15 WBC RBC Hgb Hct MCV MCHC RDW Plt Count Lymph % (Auto) [place] % (Auto) [place] # Baso # Seg Neutrophils % Seg Neutrophils # PT INR D-Dimer POC ABG pH POC ABG pCO2 POC ABG pO2 Sodium 147 H Potassium 5.2 H Chloride 107.9 H Carbon Dioxide 18 L BUN 143 H Creatinine 5.6 H Glucose 152 H POC Glucose 191 H 132 H Lactic Acid Calcium 6.3 L Phosphorus Magnesium Direct Bilirubin AST ALT Alkaline Phosphatase Total Creatine Kinase C-Reactive Protein Total Protein Albumin TSH Vancomycin Trough Crossmatch 12/18/16 12/18/16 12/18/16 00:18 01:08 02:35 WBC RBC Hgb Hct MCV MCHC RDW Plt Count Lymph % (Auto) [place] % (Auto) [place] # Baso # Seg Neutrophils % Seg Neutrophils # PT INR D-Dimer POC ABG pH POC ABG pCO2 POC ABG pO2 Sodium Potassium Chloride Carbon Dioxide BUN Creatinine Glucose POC Glucose 190 H 157 H 144 H Lactic Acid Calcium Phosphorus Magnesium Direct Bilirubin AST ALT Alkaline Phosphatase Total Creatine Kinase C-Reactive Protein Total Protein Albumin TSH Vancomycin Trough Crossmatch 12/18/16 12/18/16 12/18/16 03:14 04:11 05:07 WBC RBC Hgb Hct MCV MCHC RDW Plt Count Lymph % (Auto) [place] % (Auto) [place] # Baso # Seg Neutrophils % Seg Neutrophils # PT INR D-Dimer POC ABG pH POC ABG pCO2 POC ABG pO2 Sodium Potassium Chloride Carbon Dioxide BUN Creatinine Glucose POC Glucose 117 H 108 H 122 H Lactic Acid Calcium Phosphorus Magnesium Direct Bilirubin AST ALT Alkaline Phosphatase Total Creatine Kinase C-Reactive Protein Total Protein Albumin TSH Vancomycin Trough Crossmatch 12/18/16 12/18/16 12/18/16 05:23 06:07 06:07 WBC RBC 3.18 L Hgb 9.6 L Hct 29.0 L D MCV MCHC RDW Plt Count 130 L Lymph % (Auto) [place] % (Auto) [place] # Baso # Seg Neutrophils % Seg Neutrophils # PT INR D-Dimer POC ABG pH 7.485 H POC ABG pCO2 27.5 L POC ABG pO2 275 H Sodium Potassium Chloride Carbon Dioxide BUN Creatinine Glucose POC Glucose Lactic Acid 3.2 H* Calcium Phosphorus Magnesium Direct Bilirubin AST ALT Alkaline Phosphatase Total Creatine Kinase C-Reactive Protein Total Protein Albumin TSH Vancomycin Trough Crossmatch 12/18/16 12/18/16 12/18/16 06:08 06:22 07:26 WBC RBC Hgb Hct MCV MCHC RDW Plt Count Lymph % (Auto) [place] % (Auto) [place] # Baso # Seg Neutrophils % Seg Neutrophils # PT 18.3 H INR 1.52 H D-Dimer POC ABG pH POC ABG pCO2 POC ABG pO2 Sodium Potassium Chloride Carbon Dioxide BUN Creatinine Glucose POC Glucose 159 H 198 H Lactic Acid Calcium Phosphorus Magnesium Direct Bilirubin AST ALT Alkaline Phosphatase Total Creatine Kinase C-Reactive Protein Total Protein Albumin TSH Vancomycin Trough Crossmatch 12/18/16 12/18/16 12/18/16 08:27 09:00 09:30 WBC RBC Hgb Hct MCV MCHC RDW Plt Count Lymph % (Auto) [place] % (Auto) [place] # Baso # Seg Neutrophils % Seg Neutrophils # PT INR D-Dimer POC ABG pH POC ABG pCO2 POC ABG pO2 Sodium 147 H Potassium 5.5 H Chloride Carbon Dioxide 17 L BUN 145 H Creatinine 6.4 H Glucose 213 H POC Glucose 220 H 216 H Lactic Acid Calcium 6.0 L Phosphorus Magnesium Direct Bilirubin AST ALT Alkaline Phosphatase Total Creatine Kinase C-Reactive Protein Total Protein Albumin TSH Vancomycin Trough Crossmatch 12/18/16 12/18/16 12/18/16 10:29 11:11 12:05 WBC RBC Hgb Hct MCV MCHC RDW Plt Count Lymph % (Auto) [place] % (Auto) [place] # Baso # Seg Neutrophils % Seg Neutrophils # PT INR D-Dimer POC ABG pH POC ABG pCO2 POC ABG pO2 Sodium Potassium Chloride Carbon Dioxide BUN Creatinine Glucose POC Glucose 248 H 214 H 165 H Lactic Acid Calcium Phosphorus Magnesium Direct Bilirubin AST ALT Alkaline Phosphatase Total Creatine Kinase C-Reactive Protein Total Protein Albumin TSH Vancomycin Trough Crossmatch 12/18/16 12/18/16 12/18/16 13:06 13:59 14:45 WBC RBC Hgb Hct MCV MCHC RDW Plt Count Lymph % (Auto) [place] % (Auto) [place] # Baso # Seg Neutrophils % Seg Neutrophils # PT INR D-Dimer POC ABG pH POC ABG pCO2 29.2 L POC ABG pO2 Sodium Potassium Chloride Carbon Dioxide BUN Creatinine Glucose POC Glucose 133 H 116 H Lactic Acid Calcium Phosphorus Magnesium Direct Bilirubin AST ALT Alkaline Phosphatase Total Creatine Kinase C-Reactive Protein Total Protein Albumin TSH Vancomycin Trough Crossmatch 12/18/16 12/18/16 12/18/16 14:52 15:14 15:52 WBC RBC Hgb Hct MCV MCHC RDW Plt Count Lymph % (Auto) [place] % (Auto) [place] # Baso # Seg Neutrophils % Seg Neutrophils # PT INR D-Dimer POC ABG pH POC ABG pCO2 24.2 L POC ABG pO2 Sodium Potassium Chloride Carbon Dioxide BUN Creatinine Glucose POC Glucose 139 H 146 H Lactic Acid Calcium Phosphorus Magnesium Direct Bilirubin AST ALT Alkaline Phosphatase Total Creatine Kinase C-Reactive Protein Total Protein Albumin TSH Vancomycin Trough Crossmatch 12/18/16 12/18/16 12/18/16 16:55 16:55 17:18 WBC RBC Hgb 11.4 L Hct 33.9 L MCV MCHC RDW Plt Count Lymph % (Auto) [place] % (Auto) [place] # Baso # Seg Neutrophils % Seg Neutrophils # PT 18.8 H INR 1.58 H D-Dimer POC ABG pH POC ABG pCO2 POC ABG pO2 Sodium Potassium Chloride Carbon Dioxide BUN Creatinine Glucose POC Glucose 144 H Lactic Acid Calcium Phosphorus Magnesium Direct Bilirubin AST ALT Alkaline Phosphatase Total Creatine Kinase C-Reactive Protein Total Protein Albumin TSH Vancomycin Trough Crossmatch 12/18/16 12/18/16 12/18/16 18:12 18:21 20:17 WBC RBC Hgb Hct MCV MCHC RDW Plt Count Lymph % (Auto) [place] % (Auto) [place] # Baso # Seg Neutrophils % Seg Neutrophils # PT INR D-Dimer POC ABG pH POC ABG pCO2 POC ABG pO2 Sodium Potassium Chloride Carbon Dioxide BUN Creatinine Glucose POC Glucose 147 H 120 H Lactic Acid Calcium Phosphorus 5.4 H D Magnesium Direct Bilirubin AST ALT Alkaline Phosphatase Total Creatine Kinase C-Reactive Protein Total Protein Albumin TSH Vancomycin Trough Crossmatch 12/18/16 12/19/16 12/19/16 22:52 00:56 02:09 WBC RBC Hgb Hct MCV MCHC RDW Plt Count Lymph % (Auto) [place] % (Auto) [place] # Baso # Seg Neutrophils % Seg Neutrophils # PT INR D-Dimer POC ABG pH POC ABG pCO2 POC ABG pO2 Sodium Potassium Chloride Carbon Dioxide BUN Creatinine Glucose POC Glucose 124 H 168 H 140 H Lactic Acid Calcium Phosphorus Magnesium Direct Bilirubin AST ALT Alkaline Phosphatase Total Creatine Kinase C-Reactive Protein Total Protein Albumin TSH Vancomycin Trough Crossmatch 12/19/16 12/19/16 12/19/16 04:20 04:20 04:53 WBC 11.8 H RBC Hgb 11.7 L Hct 34.7 L MCV MCHC RDW Plt Count Lymph % (Auto) 11.3 L [place] % (Auto) [place] # Baso # Seg Neutrophils % 83.9 H Seg Neutrophils # 9.9 H PT INR D-Dimer POC ABG pH POC ABG pCO2 POC ABG pO2 Sodium Potassium Chloride Carbon Dioxide 20 L BUN 108 H Creatinine 4.9 H Glucose 131 H POC Glucose 112 H Lactic Acid Calcium 6.3 L Phosphorus Magnesium Direct Bilirubin AST 1058 H ALT 133 H Alkaline Phosphatase Total Creatine Kinase C-Reactive Protein Total Protein 6.1 L Albumin 2.3 L TSH Vancomycin Trough Crossmatch 12/19/16 12/19/16 12/19/16 05:42 06:30 07:37 WBC RBC Hgb Hct MCV MCHC RDW Plt Count Lymph % (Auto) [place] % (Auto) [place] # Baso # Seg Neutrophils % Seg Neutrophils # PT INR D-Dimer POC ABG pH 7.539 H POC ABG pCO2 26.0 L POC ABG pO2 Sodium Potassium Chloride Carbon Dioxide BUN Creatinine Glucose POC Glucose 119 H 126 H Lactic Acid Calcium Phosphorus Magnesium Direct Bilirubin AST ALT Alkaline Phosphatase Total Creatine Kinase C-Reactive Protein Total Protein Albumin TSH Vancomycin Trough Crossmatch 12/19/16 12/19/16 12/19/16 09:59 12:38 14:25 WBC RBC Hgb Hct MCV MCHC RDW Plt Count Lymph % (Auto) [place] % (Auto) [place] # Baso # Seg Neutrophils % Seg Neutrophils # PT INR D-Dimer POC ABG pH POC ABG pCO2 POC ABG pO2 Sodium Potassium Chloride Carbon Dioxide BUN Creatinine Glucose POC Glucose 118 H 139 H 143 H Lactic Acid Calcium Phosphorus Magnesium Direct Bilirubin AST ALT Alkaline Phosphatase Total Creatine Kinase C-Reactive Protein Total Protein Albumin TSH Vancomycin Trough Crossmatch 12/19/16 12/19/16 12/19/16 16:50 18:01 23:04 WBC RBC Hgb Hct MCV MCHC RDW Plt Count Lymph % (Auto) [place] % (Auto) [place] # Baso # Seg Neutrophils % Seg Neutrophils # PT INR D-Dimer POC ABG pH POC ABG pCO2 POC ABG pO2 Sodium Potassium Chloride Carbon Dioxide BUN Creatinine Glucose POC Glucose 253 H 259 H 200 H Lactic Acid Calcium Phosphorus Magnesium Direct Bilirubin AST ALT Alkaline Phosphatase Total Creatine Kinase C-Reactive Protein Total Protein Albumin TSH Vancomycin Trough Crossmatch 12/20/16 12/20/16 12/20/16 00:58 02:57 04:09 WBC RBC Hgb Hct MCV MCHC RDW Plt Count Lymph % (Auto) [place] % (Auto) [place] # Baso # Seg Neutrophils % Seg Neutrophils # PT INR D-Dimer POC ABG pH POC ABG pCO2 POC ABG pO2 Sodium Potassium Chloride Carbon Dioxide BUN Creatinine Glucose POC Glucose 210 H 162 H 109 H Lactic Acid Calcium Phosphorus Magnesium Direct Bilirubin AST ALT Alkaline Phosphatase Total Creatine Kinase C-Reactive Protein Total Protein Albumin TSH Vancomycin Trough Crossmatch 12/20/16 12/20/16 12/20/16 05:11 05:57 07:41 WBC RBC Hgb Hct MCV MCHC RDW Plt Count Lymph % (Auto) [place] % (Auto) [place] # Baso # Seg Neutrophils % Seg Neutrophils # PT INR D-Dimer POC ABG pH 7.560 H POC ABG pCO2 28.2 L POC ABG pO2 Sodium Potassium Chloride Carbon Dioxide BUN Creatinine Glucose POC Glucose 121 H 170 H Lactic Acid Calcium Phosphorus Magnesium Direct Bilirubin AST ALT Alkaline Phosphatase Total Creatine Kinase C-Reactive Protein Total Protein Albumin TSH Vancomycin Trough Crossmatch 12/20/16 12/20/16 12/20/16 08:30 08:30 10:06 WBC RBC 3.36 L Hgb 10.1 L Hct 29.5 L MCV MCHC RDW Plt Count 114 L Lymph % (Auto) [place] % (Auto) [place] # Baso # Seg Neutrophils % Seg Neutrophils # PT INR D-Dimer POC ABG pH POC ABG pCO2 POC ABG pO2 Sodium Potassium Chloride 95.1 L Carbon Dioxide BUN 78 H Creatinine 5.0 H Glucose 181 H POC Glucose 155 H Lactic Acid Calcium 6.2 L Phosphorus Magnesium Direct Bilirubin AST ALT Alkaline Phosphatase Total Creatine Kinase C-Reactive Protein Total Protein Albumin TSH Vancomycin Trough Crossmatch 12/20/16 12/20/16 12/20/16 11:55 14:44 16:24 WBC RBC Hgb Hct MCV MCHC RDW Plt Count Lymph % (Auto) [place] % (Auto) [place] # Baso # Seg Neutrophils % Seg Neutrophils # PT INR D-Dimer POC ABG pH POC ABG pCO2 POC ABG pO2 Sodium Potassium Chloride Carbon Dioxide BUN Creatinine Glucose POC Glucose 124 H 171 H 143 H Lactic Acid Calcium Phosphorus Magnesium Direct Bilirubin AST ALT Alkaline Phosphatase Total Creatine Kinase C-Reactive Protein Total Protein Albumin TSH Vancomycin Trough Crossmatch 12/20/16 12/20/16 12/20/16 18:14 20:25 22:29 WBC RBC Hgb Hct MCV MCHC RDW Plt Count Lymph % (Auto) [place] % (Auto) [place] # Baso # Seg Neutrophils % Seg Neutrophils # PT INR D-Dimer POC ABG pH POC ABG pCO2 POC ABG pO2 Sodium Potassium Chloride Carbon Dioxide BUN Creatinine Glucose POC Glucose 144 H 130 H 146 H Lactic Acid Calcium Phosphorus Magnesium Direct Bilirubin AST ALT Alkaline Phosphatase Total Creatine Kinase C-Reactive Protein Total Protein Albumin TSH Vancomycin Trough Crossmatch 12/21/16 12/21/16 12/21/16 00:30 03:06 04:31 WBC RBC Hgb Hct MCV MCHC RDW Plt Count Lymph % (Auto) [place] % (Auto) [place] # Baso # Seg Neutrophils % Seg Neutrophils # PT INR D-Dimer POC ABG pH POC ABG pCO2 31.3 L POC ABG pO2 Sodium Potassium Chloride Carbon Dioxide BUN Creatinine Glucose POC Glucose 185 H 115 H Lactic Acid Calcium Phosphorus Magnesium Direct Bilirubin AST ALT Alkaline Phosphatase Total Creatine Kinase C-Reactive Protein Total Protein Albumin TSH Vancomycin Trough Crossmatch 12/21/16 12/21/16 12/21/16 04:45 06:38 06:41 WBC RBC Hgb Hct MCV MCHC RDW Plt Count Lymph % (Auto) [place] % (Auto) [place] # Baso # Seg Neutrophils % Seg Neutrophils # PT INR D-Dimer POC ABG pH POC ABG pCO2 POC ABG pO2 Sodium Potassium Chloride Carbon Dioxide BUN Creatinine Glucose POC Glucose 145 H 165 H 145 H Lactic Acid Calcium Phosphorus Magnesium Direct Bilirubin AST ALT Alkaline Phosphatase Total Creatine Kinase C-Reactive Protein Total Protein Albumin TSH Vancomycin Trough Crossmatch 12/21/16 12/21/16 12/21/16 09:35 09:35 10:14 WBC 11.8 H RBC 3.52 L Hgb 10.8 L Hct 31.3 L MCV MCHC RDW 13.0 L Plt Count 130 L Lymph % (Auto) [place] % (Auto) [place] # Baso # Seg Neutrophils % Seg Neutrophils # PT INR D-Dimer POC ABG pH POC ABG pCO2 POC ABG pO2 Sodium Potassium Chloride Carbon Dioxide 21 L BUN 98 H Creatinine 6.2 H Glucose 133 H POC Glucose 178 H Lactic Acid Calcium 6.7 L Phosphorus Magnesium Direct Bilirubin AST ALT Alkaline Phosphatase Total Creatine Kinase C-Reactive Protein Total Protein Albumin TSH Vancomycin Trough Crossmatch 12/21/16 12/21/16 12/21/16 12:22 14:28 15:59 WBC RBC Hgb Hct MCV MCHC RDW Plt Count Lymph % (Auto) [place] % (Auto) [place] # Baso # Seg Neutrophils % Seg Neutrophils # PT INR D-Dimer POC ABG pH POC ABG pCO2 POC ABG pO2 Sodium Potassium Chloride Carbon Dioxide BUN Creatinine Glucose POC Glucose 191 H 139 H 182 H Lactic Acid Calcium Phosphorus Magnesium Direct Bilirubin AST ALT Alkaline Phosphatase Total Creatine Kinase C-Reactive Protein Total Protein Albumin TSH Vancomycin Trough Crossmatch 12/21/16 12/21/16 12/21/16 18:23 20:19 22:02 WBC RBC Hgb Hct MCV MCHC RDW Plt Count Lymph % (Auto) [place] % (Auto) [place] # Baso # Seg Neutrophils % Seg Neutrophils # PT INR D-Dimer POC ABG pH POC ABG pCO2 POC ABG pO2 Sodium Potassium Chloride Carbon Dioxide BUN Creatinine Glucose POC Glucose 167 H 134 H 163 H Lactic Acid Calcium Phosphorus Magnesium Direct Bilirubin AST ALT Alkaline Phosphatase Total Creatine Kinase C-Reactive Protein Total Protein Albumin TSH Vancomycin Trough Crossmatch 12/22/16 12/22/16 12/22/16 00:09 01:55 04:00 WBC 12.0 H RBC 2.93 L Hgb 8.9 L Hct 26.1 L MCV MCHC RDW 13.0 L Plt Count 103 L Lymph % (Auto) [place] % (Auto) [place] # Baso # Seg Neutrophils % Seg Neutrophils # PT INR D-Dimer POC ABG pH POC ABG pCO2 POC ABG pO2 Sodium Potassium Chloride Carbon Dioxide BUN Creatinine Glucose POC Glucose 154 H 111 H Lactic Acid Calcium Phosphorus Magnesium Direct Bilirubin AST ALT Alkaline Phosphatase Total Creatine Kinase C-Reactive Protein Total Protein Albumin TSH Vancomycin Trough Crossmatch 12/22/16 12/22/16 12/22/16 04:00 04:09 04:48 WBC RBC Hgb Hct MCV MCHC RDW Plt Count Lymph % (Auto) [place] % (Auto) [place] # Baso # Seg Neutrophils % Seg Neutrophils # PT INR D-Dimer POC ABG pH POC ABG pCO2 32.2 L POC ABG pO2 42 L Sodium Potassium Chloride 97.0 L Carbon Dioxide 20 L BUN 119 H Creatinine 6.9 H Glucose 143 H POC Glucose 151 H Lactic Acid Calcium 6.3 L Phosphorus Magnesium Direct Bilirubin AST ALT Alkaline Phosphatase Total Creatine Kinase C-Reactive Protein Total Protein Albumin TSH Vancomycin Trough Crossmatch 12/22/16 12/22/16 12/22/16 05:22 08:09 09:34 WBC RBC Hgb 8.9 L Hct 26.5 L MCV MCHC RDW Plt Count 96 L Lymph % (Auto) [place] % (Auto) [place] # Baso # Seg Neutrophils % Seg Neutrophils # PT INR D-Dimer POC ABG pH POC ABG pCO2 34.7 L POC ABG pO2 Sodium Potassium Chloride Carbon Dioxide BUN Creatinine Glucose POC Glucose 113 H Lactic Acid Calcium Phosphorus Magnesium Direct Bilirubin AST ALT Alkaline Phosphatase Total Creatine Kinase C-Reactive Protein Total Protein Albumin TSH Vancomycin Trough Crossmatch 12/22/16 12/22/16 12/22/16 12:26 14:05 16:25 WBC RBC Hgb Hct MCV MCHC RDW Plt Count Lymph % (Auto) [place] % (Auto) [place] # Baso # Seg Neutrophils % Seg Neutrophils # PT INR D-Dimer POC ABG pH POC ABG pCO2 POC ABG pO2 Sodium Potassium Chloride Carbon Dioxide BUN Creatinine Glucose POC Glucose 190 H 160 H 106 H Lactic Acid Calcium Phosphorus Magnesium Direct Bilirubin AST ALT Alkaline Phosphatase Total Creatine Kinase C-Reactive Protein Total Protein Albumin TSH Vancomycin Trough Crossmatch 12/22/16 12/22/16 12/23/16 20:26 22:22 00:04 WBC RBC Hgb Hct MCV MCHC RDW Plt Count Lymph % (Auto) [place] % (Auto) [place] # Baso # Seg Neutrophils % Seg Neutrophils # PT INR D-Dimer POC ABG pH POC ABG pCO2 POC ABG pO2 Sodium Potassium Chloride Carbon Dioxide BUN Creatinine Glucose POC Glucose 106 H 154 H 171 H Lactic Acid Calcium Phosphorus Magnesium Direct Bilirubin AST ALT Alkaline Phosphatase Total Creatine Kinase C-Reactive Protein Total Protein Albumin TSH Vancomycin Trough Crossmatch 12/23/16 12/23/16 12/23/16 04:12 04:48 05:00 WBC RBC 2.67 L Hgb 8.1 L Hct 23.7 L MCV MCHC RDW 13.0 L Plt Count 89 L Lymph % (Auto) [place] % (Auto) [place] # Baso # Seg Neutrophils % Seg Neutrophils # PT INR D-Dimer POC ABG pH POC ABG pCO2 POC ABG pO2 123 H Sodium Potassium Chloride Carbon Dioxide BUN Creatinine Glucose POC Glucose 136 H Lactic Acid Calcium Phosphorus Magnesium Direct Bilirubin AST ALT Alkaline Phosphatase Total Creatine Kinase C-Reactive Protein Total Protein Albumin TSH Vancomycin Trough Crossmatch 12/23/16 12/23/16 12/23/16 05:00 07:30 07:44 WBC RBC Hgb Hct MCV MCHC RDW Plt Count Lymph % (Auto) [place] % (Auto) [place] # Baso # Seg Neutrophils % Seg Neutrophils # PT INR D-Dimer POC ABG pH POC ABG pCO2 POC ABG pO2 Sodium 135 L Potassium Chloride 96.1 L Carbon Dioxide BUN 83 H Creatinine 5.3 H Glucose 126 H POC Glucose 122 H Lactic Acid Calcium 7.0 L Phosphorus Magnesium Direct Bilirubin AST ALT Alkaline Phosphatase Total Creatine Kinase C-Reactive Protein Total Protein Albumin TSH Vancomycin Trough Crossmatch See Detail 12/23/16 12/23/16 12/23/16 11:31 12:12 13:44 WBC RBC Hgb Hct MCV MCHC RDW Plt Count Lymph % (Auto) [place] % (Auto) [place] # Baso # Seg Neutrophils % Seg Neutrophils # PT INR D-Dimer POC ABG pH POC ABG pCO2 POC ABG pO2 Sodium Potassium Chloride Carbon Dioxide BUN Creatinine Glucose POC Glucose 142 H 117 H 127 H Lactic Acid Calcium Phosphorus Magnesium Direct Bilirubin AST ALT Alkaline Phosphatase Total Creatine Kinase C-Reactive Protein Total Protein Albumin TSH Vancomycin Trough Crossmatch 12/23/16 12/23/16 12/23/16 16:07 17:51 23:53 WBC RBC Hgb Hct MCV MCHC RDW Plt Count Lymph % (Auto) [place] % (Auto) [place] # Baso # Seg Neutrophils % Seg Neutrophils # PT INR D-Dimer POC ABG pH POC ABG pCO2 POC ABG pO2 Sodium Potassium Chloride Carbon Dioxide BUN Creatinine Glucose POC Glucose 163 H 219 H 144 H Lactic Acid Calcium Phosphorus Magnesium Direct Bilirubin AST ALT Alkaline Phosphatase Total Creatine Kinase C-Reactive Protein Total Protein Albumin TSH Vancomycin Trough Crossmatch 12/24/16 12/24/16 12/24/16 04:50 04:50 05:19 WBC RBC Hgb 9.3 L Hct 26.9 L MCV MCHC RDW Plt Count 128 L Lymph % (Auto) [place] % (Auto) [place] # Baso # Seg Neutrophils % Seg Neutrophils # PT INR D-Dimer POC ABG pH POC ABG pCO2 POC ABG pO2 Sodium 134 L Potassium Chloride 94.6 L Carbon Dioxide BUN 61 H Creatinine 4.4 H Glucose 144 H POC Glucose 139 H Lactic Acid Calcium 7.4 L Phosphorus Magnesium Direct Bilirubin AST ALT Alkaline Phosphatase Total Creatine Kinase C-Reactive Protein Total Protein Albumin TSH Vancomycin Trough Crossmatch 12/24/16 12/24/16 12/25/16 11:53 16:59 00:09 WBC RBC Hgb Hct MCV MCHC RDW Plt Count Lymph % (Auto) [place] % (Auto) [place] # Baso # Seg Neutrophils % Seg Neutrophils # PT INR D-Dimer POC ABG pH POC ABG pCO2 POC ABG pO2 Sodium Potassium Chloride Carbon Dioxide BUN Creatinine Glucose POC Glucose 129 H 175 H 160 H Lactic Acid Calcium Phosphorus Magnesium Direct Bilirubin AST ALT Alkaline Phosphatase Total Creatine Kinase C-Reactive Protein Total Protein Albumin TSH Vancomycin Trough Crossmatch 12/25/16 05:15 WBC RBC Hgb Hct MCV MCHC RDW Plt Count Lymph % (Auto) [place] % (Auto) [place] # Baso # Seg Neutrophils % Seg Neutrophils # PT INR D-Dimer POC ABG pH POC ABG pCO2 POC ABG pO2 Sodium 147 H D Potassium Chloride 107.8 H Carbon Dioxide BUN 45 H Creatinine 3.6 H Glucose 150 H POC Glucose Lactic Acid Calcium 7.5 L Phosphorus Magnesium Direct Bilirubin AST ALT Alkaline Phosphatase Total Creatine Kinase C-Reactive Protein Total Protein Albumin TSH Vancomycin Trough Crossmatch Allied health notes reviewed: RT
[2016-12-25] MEDS ORDERED: HEPARIN 10,000 UNITS/10 ML ONE (12:02)
[2016-12-25] MEDS ORDERED: HEPARIN/NS 5000 UNIT/500ML(CATH LAB) 1,000 ML IR ONE (12:02)
[2016-12-25] MEDS ORDERED: XYLOCAINE 2% INFILTRATI ONE ×2 (12:03→13:37)
[2016-12-25] MEDS ORDERED: SUBLIMAZE ONE (12:03)
[2016-12-25] MEDS ORDERED: NACL 0.9% 500 ML 500 ML ONE (12:05)
[2016-12-25] MEDS ORDERED: ANCEF/STERILE WATER 2 GM/20 ML 2 GM/20 ML SYRINGE IV ONE (12:13)
--- NOTE | 2016-12-25 12:22 | Progress Note ---
Assessment and Plan Acute respiratory failure currently intubated Septic shock Pneumonia Altered mental status Anemia requiring blood transfusion Thrombocytopenia Acute renal failure initiated on HD this admission Chronic systolic heart failure Ischemic cardiomyopathy Echo this admission demonstrates left ventricular ejection fraction 35%. Hx of CAD [facility] 2013: patent mid LAD stent, patent diagonal branch stent, patent mid obtuse marginal stent. Nonobstructive disease of the RCA. EF 30-35%. Conservative cardiac management. Subjective Date of service: 12/25/16 Principal diagnosis: Acute hypoxemic respiratory failure, shock Interval history: Patient awake with eyes open. Remains intubated on the vent. Pressors weaned off overnight. Objective Vital Signs Temp Pulse Pulse Pulse Resp Resp BP 12/25/16 10:47 100 H 110/54 12/25/16 08:35 16 12/25/16 08:18 100 H 110/54 12/25/16 08:17 94 H 15 12/25/16 08:00 101 F H 104 H 17 105/55 12/25/16 07:45 96 H 20 105/54 12/25/16 07:30 96 H 17 96/50 12/25/16 07:15 95 H 17 86/48 12/25/16 07:00 100 H 18 91/49 12/25/16 06:45 98 H 19 95/48 12/25/16 06:30 99 H 15 94/48 12/25/16 06:15 100 H 18 106/51 12/25/16 06:00 103 H 17 114/54 12/25/16 05:45 104 H 15 109/57 12/25/16 05:30 104 H 17 117/57 12/25/16 05:15 101 H 19 121/54 12/25/16 05:01 102 H 120/61 12/25/16 04:45 97 H 16 98/49 12/25/16 04:30 98 H 22 100/50 12/25/16 04:15 98 H 18 93/47 12/25/16 04:00 100.9 F H 108 H 99 H 16 107/62 12/25/16 03:45 97 H 19 113/52 12/25/16 03:30 107 H 17 108/59 12/25/16 03:15 99 H 18 106/54 12/25/16 03:00 98 H 19 109/54 12/25/16 02:45 106 H 18 109/59 12/25/16 02:30 98 H 15 107/57 12/25/16 02:16 94 H 16 12/25/16 02:15 94 H 18 97/52 12/25/16 02:06 91 H 17 12/25/16 02:00 90 18 84/45 12/25/16 01:45 93 H 18 81/46 12/25/16 01:30 92 H 15 80/45 12/25/16 01:15 94 H 17 89/47 12/25/16 01:00 98 H 17 85/48 12/25/16 00:45 100 H 15 95/50 12/25/16 00:30 101 H 18 104/53 12/25/16 00:22 102 H 101/79 12/25/16 00:15 112 H 18 112/56 12/25/16 00:00 100.6 F H 99 H 101 H 16 102/54 12/24/16 23:45 100 H 18 119/56 12/24/16 23:30 106 H 19 128/71 12/24/16 23:23 101 H 14 123/61 12/24/16 22:45 120/60 12/24/16 22:31 100 H 20 120/60 12/24/16 22:15 91 H 19 93/49 12/24/16 22:00 89 18 88/46 12/24/16 21:45 90 15 94/46 12/24/16 21:30 93 H 15 105/51 12/24/16 21:15 95 H 18 110/55 12/24/16 21:00 90 16 88/48 12/24/16 20:49 99 H 18 12/24/16 20:45 95 H 16 99/56 12/24/16 20:39 94 H 99 H 19 90/56 17 20:30 94 H 16 95/49 17 20:15 99 H 16 123/59 17 20:00 100.1 F H 97 H 88 15 123/59 15/17 19:45 105 H 16 133/65 12/24/16 19:30 105 H 14 121/63 1517 19:15 100 H 16 123/62 12/24/16 19:01 101 H 17 136/64 17 18:45 107 H 13 128/68 03/15/17 18:43 100 H 130/64 12/24/16 18:30 106 H 14 125/66 12/24/16 18:17 109 H 15 125/62 12/24/16 18:15 98.9 F 101 H 16 130/64 12/24/16 18:00 96 H 17 121/67 12/24/16 17:45 103 H 17 121/67 12/24/16 17:30 100 H 20 125/65 12/24/16 17:15 107 H 16 125/71 12/24/16 17:00 104 H 16 118/66 12/24/16 16:45 99 H 21 127/64 12/24/16 16:30 97 H 16 123/68 12/24/16 16:15 104 H 15 137/71 12/24/16 16:00 98.9 F 99 H 18 152/65 12/24/16 15:45 100 H 15 160/64 12/24/16 15:30 101 H 13 146/62 12/24/16 15:15 101 H 18 139/65 12/24/16 15:00 100 H 14 114/63 12/24/16 14:45 100 H 15 131/64 12/24/16 14:30 102 H 19 130/60 12/24/16 14:25 99.1 F 99 H 16 131/63 12/24/16 14:18 101 H 20 12/24/16 14:15 99 H 17 131/63 12/24/16 14:10 102 H 18 12/24/16 14:00 99 H 19 134/60 12/24/16 13:45 105 H 20 122/62 12/24/16 13:30 97 H 17 122/62 12/24/16 13:15 102 H 19 133/67 12/24/16 13:00 98 H 18 118/63 12/24/16 12:45 101 H 17 109/54 12/24/16 12:30 105 H 14 112/54 Pulse Ox Pulse Ox 12/25/16 10:47 93 12/25/16 08:35 12/25/16 08:18 93 12/25/16 08:17 12/25/16 08:00 95 12/25/16 07:45 94 12/25/16 07:30 94 12/25/16 07:15 92 12/25/16 07:00 92 12/25/16 06:45 92 12/25/16 06:30 92 12/25/16 06:15 94 12/25/16 06:00 93 12/25/16 05:45 93 17 05:30 93 12/25/16 05:15 93 12/25/16 05:01 95 12/25/16 04:45 98 12/25/16 04:30 98 12/25/16 04:15 97 12/25/16 04:00 98 12/25/16 03:45 99 12/25/16 03:30 97 12/25/16 03:15 98 12/25/16 03:00 98 12/25/16 02:45 98 12/25/16 02:30 98 12/25/16 02:16 12/25/16 02:15 97 12/25/16 02:06 12/25/16 02:00 98 12/25/16 01:45 98 12/25/16 01:30 98 12/25/16 01:15 97 12/25/16 01:00 97 12/25/16 00:45 95 12/25/16 00:30 97 12/25/16 00:22 95 12/25/16 00:15 95 12/25/16 00:00 95 12/24/16 23:45 96 12/24/16 23:30 95 12/24/16 23:23 12/24/16 22:45 12/24/16 22:31 99 12/24/16 22:15 100 12/24/16 22:00 99 12/24/16 21:45 99 12/24/16 21:30 99 12/24/16 21:15 99 12/24/16 21:00 100 12/24/16 20:49 12/24/16 20:45 100 12/24/16 20:39 98 12/24/16 20:30 98 12/24/16 20:15 98 12/24/16 20:00 97 12/24/16 19:45 98 12/24/16 19:30 97 12/24/16 19:15 97 12/24/16 19:01 97 12/24/16 18:45 94 12/24/16 18:43 03/15/17 18:30 95 12/24/16 18:17 12/24/16 18:15 98 12/24/16 18:00 12/24/16 17:45 12/24/16 17:30 12/24/16 17:15 12/24/16 17:00 99 12/24/16 16:45 99 12/24/16 16:30 100 12/24/16 16:15 98 12/24/16 16:00 98 12/24/16 15:45 95 12/24/16 15:30 100 12/24/16 15:15 99 12/24/16 15:00 99 12/24/16 14:45 98 12/24/16 14:30 100 12/24/16 14:25 99 12/24/16 14:18 12/24/16 14:15 100 12/24/16 14:10 12/24/16 14:00 98 12/24/16 13:45 98 12/24/16 13:30 12/24/16 13:15 97 12/24/16 13:00 98 12/24/16 12:45 12/24/16 12:30 - Physical Examination General: Other (intubated on mechanical ventilator) Cardiac: Positive: Reg Rate and Rhythm - Labs and Meds Comprehensive Metabolic Panel 12/25/16 Range/Units 05:15 Sodium 147 H D (137-145) mmol/L Potassium 4.1 (3.6-5.0) mmol/L Chloride 107.8 H (98-107) mmol/L Carbon Dioxide 22 (22-30) mmol/L BUN 45 H (9-20) mg/dL Creatinine 3.6 H (0.8-1.5) mg/dL Glucose 150 H (75-100) mg/dL Calcium 7.5 L (8.4-10.2) mg/dL - Allied health notes Allied health notes reviewed: RT
--- NOTE | 2016-12-25 12:22 | Progress Note ---
Assessment and Plan - Patient Problems (1) Acute kidney failure with tubular necrosis Current Visit: Yes Status: Acute Plan to address problem: Kidney indices improved on dialysis. Electrolytes within normal limits. Hemodialysis again tomorrow morning. (2) Acute hypoxemic respiratory failure Current Visit: Yes Status: Acute Plan to address problem: Continue ventilator management by pulmonary. (3) Septic shock Current Visit: Yes Status: Acute Plan to address problem: Patient off of Levophed. Continue antibiotics and other support. (4) Systolic CHF, acute on chronic Current Visit: No Status: Acute Plan to address problem: EF 35%. Volume status now improving. Reevaluate need for dialysis for fluid removal on a daily basis. (5) Diabetes Current Visit: No Status: Chronic Qualifiers: Diabetes mellitus type: D Diabetes mellitus complication status: D Diabetes mellitus complication detail: D Diabetic retinopathy severity: D Proliferative retinopathy type: P Diabetes mellitus macular edema: D Diabetes mellitus alf insulin use: D Laterality: L Chronic kidney disease stage: C Plan to address problem: Blood sugar management by primary attending (6) Anemia in chronic illness Current Visit: Yes Status: Acute Plan to address problem: Hemoglobin improved posttransfusion. Subjective Date of service: 12/25/16 Principal diagnosis: Acute hypoxemic respiratory failure, shock Interval history: Patient seen lying in bed. He is intubated on the ventilator. On fentanyl infusion. Off of Levophed. Unable to obtain review of systems due to patient being intubated on ventilator Objective - Exam Narrative Exam: Middle-aged male intubated on the ventilator HEENT normocephalic atraumatic, pupils equal reactive to light, pink, clear oropharynx Neck supple, no thyromegaly no jugular venous distention CVS S1-S2 regular rate rhythm without murmur, rub or gallop Chest faint rhonchi diminished in the lower zones Abdomen soft nondistended nontender no organomegaly no bruit bowel sounds present Extremities mild edema no cyanosis or clubbing Neuro drowsy but awakens, intubated on ventilator - Vital Signs Vital signs: Vital Signs - 12hr 12/25/16 12/25/16 12/25/16 00:22 00:30 00:45 Temperature Pulse Rate 102 H 101 H 100 H Pulse Rate [ Bilateral Throughout] Pulse Rate [ From Monitor] Respiratory 18 15 Rate Respiratory Rate [Bilateral Throughout] Blood Pressure 101/79 104/53 95/50 O2 Sat by Pulse 95 97 95 Oximetry 12/25/16 12/25/16 12/25/16 01:00 01:15 01:30 Temperature Pulse Rate 98 H 94 H 92 H Pulse Rate [ Bilateral Throughout] Pulse Rate [ From Monitor] Respiratory 17 17 15 Rate Respiratory Rate [Bilateral Throughout] Blood Pressure 85/48 89/47 80/45 O2 Sat by Pulse 97 97 98 Oximetry 12/25/16 12/25/16 12/25/16 01:45 02:00 02:06 Temperature Pulse Rate 93 H 90 Pulse Rate [ 91 H Bilateral Throughout] Pulse Rate [ From Monitor] Respiratory 18 18 Rate Respiratory 17 Rate [Bilateral Throughout] Blood Pressure 81/46 84/45 O2 Sat by Pulse 98 98 Oximetry 12/25/16 12/25/16 12/25/16 02:15 02:16 02:30 Temperature Pulse Rate 94 H 98 H Pulse Rate [ 94 H Bilateral Throughout] Pulse Rate [ From Monitor] Respiratory 18 15 Rate Respiratory 16 Rate [Bilateral Throughout] Blood Pressure 97/52 107/57 O2 Sat by Pulse 97 98 Oximetry 12/25/16 12/25/16 12/25/16 02:45 03:00 03:15 Temperature Pulse Rate 106 H 98 H 99 H Pulse Rate [ Bilateral Throughout] Pulse Rate [ From Monitor] Respiratory 18 19 18 Rate Respiratory Rate [Bilateral Throughout] Blood Pressure 109/59 109/54 106/54 O2 Sat by Pulse 98 98 98 Oximetry 12/25/16 12/25/16 12/25/16 03:30 03:45 04:00 Temperature 100.9 F H Pulse Rate 107 H 97 H 108 H Pulse Rate [ Bilateral Throughout] Pulse Rate [ 99 H From Monitor] Respiratory 17 19 16 Rate Respiratory Rate [Bilateral Throughout] Blood Pressure 108/59 113/52 107/62 O2 Sat by Pulse 97 99 98 Oximetry 12/25/16 12/25/16 12/25/16 04:15 04:30 04:45 Temperature Pulse Rate 98 H 98 H 97 H Pulse Rate [ Bilateral Throughout] Pulse Rate [ From Monitor] Respiratory 18 22 16 Rate Respiratory Rate [Bilateral Throughout] Blood Pressure 93/47 100/50 98/49 O2 Sat by Pulse 97 98 98 Oximetry 12/25/16 12/25/16 12/25/16 05:01 05:15 05:30 Temperature Pulse Rate 102 H 101 H 104 H Pulse Rate [ Bilateral Throughout] Pulse Rate [ From Monitor] Respiratory 19 17 Rate Respiratory Rate [Bilateral Throughout] Blood Pressure 120/61 121/54 117/57 O2 Sat by Pulse 95 93 93 Oximetry 12/25/16 12/25/16 12/25/16 05:45 06:00 06:15 Temperature Pulse Rate 104 H 103 H 100 H Pulse Rate [ Bilateral Throughout] Pulse Rate [ From Monitor] Respiratory 15 17 18 Rate Respiratory Rate [Bilateral Throughout] Blood Pressure 109/57 114/54 106/51 O2 Sat by Pulse 93 93 94 Oximetry 12/25/16 12/25/16 12/25/16 06:30 06:45 07:00 Temperature Pulse Rate 99 H 98 H 100 H Pulse Rate [ Bilateral Throughout] Pulse Rate [ From Monitor] Respiratory 15 19 18 Rate Respiratory Rate [Bilateral Throughout] Blood Pressure 94/48 95/48 91/49 O2 Sat by Pulse 92 92 92 Oximetry 12/25/16 12/25/16 12/25/16 07:15 07:30 07:45 Temperature Pulse Rate 95 H 96 H 96 H Pulse Rate [ Bilateral Throughout] Pulse Rate [ From Monitor] Respiratory 17 17 20 Rate Respiratory Rate [Bilateral Throughout] Blood Pressure 86/48 96/50 105/54 O2 Sat by Pulse 92 94 94 Oximetry 12/25/16 12/25/16 12/25/16 08:00 08:17 08:18 Temperature 101 F H Pulse Rate 104 H 100 H Pulse Rate [ 94 H Bilateral Throughout] Pulse Rate [ From Monitor] Respiratory 17 Rate Respiratory 15 Rate [Bilateral Throughout] Blood Pressure 105/55 110/54 O2 Sat by Pulse 95 93 Oximetry 12/25/16 12/25/16 08:35 10:47 Temperature Pulse Rate 100 H Pulse Rate [ Bilateral Throughout] Pulse Rate [ From Monitor] Respiratory 16 Rate Respiratory Rate [Bilateral Throughout] Blood Pressure 110/54 O2 Sat by Pulse 93 Oximetry - Lab 12/24/16 04:50 12/25/16 05:15 Most recent lab results Calcium 7.5 mg/dL (8.4-10.2) L 12/25/16 05:15 Phosphorus 5.4 mg/dL (2.5-4.5) H D 12/18/16 18:21 Magnesium 2.5 mg/dL (1.7-2.3) H 12/17/16 09:10
[2016-12-25] MEDS: fentaNYL DRIP Premix 2,000 MCG/100 ML BAG IV SCH ×2 (12:25→23:30)
[2016-12-25] MEDS: VERSED ONE ×2 (12:35→13:05)
[2016-12-25] MEDS ORDERED: VERSED ONE (13:05)
[2016-12-25] MEDS ORDERED: BENADRYL ONE (13:07)
--- NOTE | 2016-12-25 14:38 | Operative Report ---
Operative Report Operative Report: EXAM: 1. Ultrasound-guided access of the right common femoral artery 2. Angiography of the right lower extremity 3. Selection of the right innominate artery with angiography 4. Selection of the right subclavian artery with angiography 5. Selection of the right axillary artery angiography 6. Angiography through the right subclavian artery triple-lumen catheter 7. Closure of the right subclavian artery with a 6 [place] Angio-Seal 8. Angioplasty of the right subclavian artery with a 10 mm angioplasty below 9. Closure of the right common femoral artery with a 6 [place] Angio-Seal 10. Ultrasound evaluation of the right common femoral artery DATE: 12/25/16 RN PROGRESSIVE CARE: KRISHAN ABDALLA MD INDICATION: 61-year-old male with multisystem organ failure on dialysis who was persistently hypotensive requiring triple lumen catheter placement. The triple- lumen catheter was placed by emergency room physician. He was found to be in the artery. Afterwards, the patient has been heparinized and has been slowly weaned off of his pressors. He is brought down for closure/removal of his right triple-lumen catheter from the subclavian artery. MEDICATIONS: Please see nursing report for full details. DEVICES: 10 mm angioplasty balloon CONTRAST: Please see Lab report for full details PROCEDURE: The risks, benefits, and alternatives were discussed with the patient's daughter ; written informed consent was obtained. The patient was brought to the angiography suite in stable condition with respiratory therapy available due to the patient's intubated status. Right wrist was checked, but the patient failed his pulse oximetry Rehan's test. The groins in the subclavian triple-lumen catheter were prepped and draped in a sterile fashion. The right common femoral artery was evaluated with ultrasound was patent. Under direct ultrasound guidance, a 21-gauge micropuncture needle was used to access the right common femoral artery. 0.018 inch wire was passed into the aorta. Needle was exchanged for transitional dilator. 0.035 inch wire was passed into the aorta. Needle was exchanged for a 5 [place] sheath. Digital subtraction angiography was performed of the right lower extremity demonstrating inappropriate access site, above the bifurcation of below the inferior epigastric artery. The common femoral artery, profundofemoral artery, proximal superficial femoral artery, and external iliac artery were patent. Vertebral catheter was advanced over the wire and used to select the innominate artery. Vertebral catheter was then used to select the subclavian artery. Digital subtraction angiography was performed demonstrating the puncture of the subclavian artery near the first right rib. No thrombus noted. Digital subtraction angiography demonstrated patency of the subclavian artery and the axillary artery. Catheter was used to select the axillary artery and digital subtraction angiography was performed demonstrating patency of the axillary artery, brachial artery, and radial artery. The interosseous artery and ulnar artery were diminutive in size relative to the radial artery. Digital subtraction angiography was performed to the triple-lumen catheter demonstrating that the tip was in the vertebral artery, and it demonstrated patency of the proximal vertebral artery, subclavian artery, and axillary artery. The groin sheath was then upsized to a 7 [place] 65 cm sheath which was positioned in the right innominate artery. Digital subtraction angiography demonstrated patency of the right innominate artery, proximal right common carotid artery, and proximal left common carotid artery. Unfortunately that she would not reach the subclavian artery. Sheath was exchanged for 7 [place] 90 cm sheath positioned in the right subclavian artery. 10 mm balloon was made available. J-wire was advanced through the triple-lumen catheter after the triple-lumen catheter was cleaned with ChloraPrep. The triple lumen catheter was removed and the wire was cleaned with ChloraPrep. 6 [place] Angio-Seal was advanced over the wire and successfully deployed and the right subclavian artery achieving near immediate hemostasis. Digital subtraction angiography was performed to the sheath demonstrating no pseudoaneurysm or extravasation from the triple-lumen puncture site. There is minimal irregularity of the subclavian artery, and patency of the axillary artery. 10 mm angioplasty balloon was advanced over the wire and positioned in the right subclavian artery. Angioplasty was performed for 5 minutes. Balloon was deflated and digital subtraction angiography was repeated demonstrating no pseudoaneurysm or extravasation. Digital subtraction angiography was then performed down the right lower extremity with the use of a vertebral catheter demonstrating no change from the preprocedural imaging. Sheath was then removed and wires were removed and a 6 [place] Angio-Seal was successfully deployed in the right common femoral artery. There is a little bit of bleeding, and therefore pressure was held for 15 minutes. Ultrasound was used to evaluate the puncture site demonstrating no evidence of an intraluminal Angio-Seal. Flow could be seen in the common femoral artery, proximal superficial femoral artery, and profundofemoral artery. Pressure dressing was applied to the right groin. Dressings were applied to the right subclavian artery. Patient tolerated the procedure well. No immediate postprocedural complication. FINDINGS: Please see procedure note above IMPRESSION: Successful removal of the right subclavian artery catheter without complication as described above.
--- NOTE | 2016-12-25 19:37 | Progress Note ---
Subjective Date of service: 12/25/16 Principal diagnosis: Acute hypoxemic respiratory failure, shock Interval history: Fever improving. REMOVAL OF RIGHT SUBCLAVIAN ARTERY CATHETER TODAY. PHYSICAL EXAM Vital signs - temp 102. chest - mild b/l rhonchi cvs - s1s2 abd - bs+ LABS See lab section ASSESSMENT 1. Pneumonia 2. Acute respiratory failure 3. Encephalopathy 4. CHF RECOMMENDATION 1. cbc/bmp in am 2. CONTINUE ORAL BACTRIM. Objective - Constitutional Vitals: Vital Signs Temp Pulse Resp BP Pulse Ox 100.1 F H 94 H 13 101/53 96 12/25/16 17:00 12/25/16 19:15 12/25/16 19:15 12/25/16 19:15 12/25/16 19:15 Temperature -Last 24 Hours Temperature 100.1 F Temperature 100.1 F Temperature 99.6 F Temperature 99.6 F Temperature 101 F Temperature 100.9 F Temperature 100.6 F Temperature 100.1 F - Labs CBC & Chem 7: 12/24/16 04:50 12/25/16 05:15 Labs: Abnormal lab results 12/24/16 12/25/16 12/25/16 Range/Units 16:59 00:09 05:15 Sodium 147 H D (137-145) mmol/L Chloride 107.8 H (98-107) mmol/L BUN 45 H (9-20) mg/dL Creatinine 3.6 H (0.8-1.5) mg/dL Glucose 150 H (75-100) mg/dL POC Glucose 175 H 160 H (70-105) Calcium 7.5 L (8.4-10.2) mg/dL
--- NOTE | 2016-12-25 19:55 | Event Note ---
Date: 12/25/16 The tip of the removed right subclavian TLC was in the right vertebral artery. Recommend neurology consult to determine if there are any neurologic sequela.
[2016-12-25] MEDS: ZOCOR PO SCH (22:18)
[2016-12-26] MEDS: TYLENOL FEEDTUBE PRN ×2 (00:22→10:16)
[2016-12-26] MEDS: fentaNYL DRIP Premix 2,000 MCG/100 ML BAG IV SCH (04:55)
[2016-12-26] MEDS: HEPARIN SUB-Q SCH ×2 (05:44→14:43)
[2016-12-26] MEDS: DUONEB 0.5 MG-3 MG/3 ML SOLN IH SCH ×4 (06:14→19:56)
[2016-12-26 06:35] LABS: Hematocrit 24.1 % (35.5-45.6)
[2016-12-26 07:27] LABS: BUN/Creatinine Ratio 12.96; Calcium 7.3 mg/dL (8.4-10.2); Chloride 103.5 mmol/L (98-107); Potassium 4.2 mmol/L (3.6-5.0)
--- NOTE | 2016-12-26 07:49 | Vascular Lab Report ---
MISCELLANEOUS VESSEL IDENTIFICATION: COMMENTS ON THE SCAN: The right common femoral artery was identified and under real-time ultrasound guidance was cannulated. IMPRESSION: Successful ultrasound guided arterial cannulation.
--- NOTE | 2016-12-26 09:23 | Progress Note ---
Assessment and Plan Assessment and plan: Septic shock due to pneumonia.. Continue supportive care, Bactrim. Off Levophed. BP stable Acute Respiratory failure due to Pneumonia. He is still intubated on ventilator. Pulmonology following. Acute metabolic encephalopathy. CT head unremarkable. Neurology following. Acute on chronic systolic CHF. EF 30% Cont aspirin, statin. Beta blockers on hold for now because of hypotension. cardiology following. Acute kidney Injury secondary to acute tubular necrosis from septic shock. He has been started on hemodialysis. Nephrology following. Cr 5.4 Hyperkalemia. This is now resolved. DKA with diabetes mellitus type 2. Now on Levemir Pneumonia due to strep pneumonia Bacteremia. One out of two blood cultures for micrococcus. Now on Bactrim. Sinus tachycardia. due to septic shock. Lopressor iv prn Hypernatremia. Sodium 142 today Hyponatremia. resolved Alcohol abuse. Hepatitis C He is still critically ill. Still needs to be in ICU History Interval history: Patient still intubated, Fever of 102.3 this morning Hospitalist Physical - Physical exam Narrative exam: Gen: Intubated, on ventilator, HEENT: normocephalic,atraumatic Neck : no JVD Lungs: bilateral crackles, no wheezes Heart: S1 and S2 regular, no murmurs no gallops,no rubs Abdomen: soft nontender, nondistended, normal bowel sounds Extremities: no edema, no clubbing or cyanosis Neuro: Intubated, sedated, - Constitutional Vitals: Temp Pulse Resp BP Pulse Ox 102.3 F H 107 H 14 131/65 98 12/26/16 08:00 12/26/16 08:24 12/26/16 06:15 12/26/16 08:24 12/26/16 08:24 General appearance: Present: other (intubated) Results - Labs CBC & Chem 7: 12/26/16 06:00 12/26/16 06:00 Labs: Laboratory Last Values WBC 8.1 K/mm3 (4.5-11.0) 12/23/16 05:00 RBC 2.67 M/mm3 (3.65-5.03) L 12/23/16 05:00 Hgb 8.0 gm/dl (11.8-15.2) L 12/26/16 06:00 Hct 24.1 % (35.5-45.6) L 12/26/16 06:00 MCV 89 fl (84-94) 12/23/16 05:00 MCH 30 pg (28-32) 12/23/16 05:00 MCHC 34 % (32-34) 12/23/16 05:00 RDW 13.0 % (13.2-15.2) L 12/23/16 05:00 Plt Count 141 K/mm3 (140-440) 12/26/16 06:00 Lymph % (Auto) 11.3 % (13.4-35.0) L 12/19/16 04:20 [place] % (Auto) 4.0 % (0.0-7.3) 12/19/16 04:20 Eos % (Auto) 0.3 % (0.0-4.3) 12/19/16 04:20 Baso % (Auto) 0.5 % (0.0-1.8) 12/19/16 04:20 Lymph # 1.3 K/mm3 (1.2-5.4) 12/19/16 04:20 [place] # 0.5 K/mm3 (0.0-0.8) 12/19/16 04:20 Eos # 0.0 K/mm3 (0.0-0.4) 12/19/16 04:20 Baso # 0.1 K/mm3 (0.0-0.1) 12/19/16 04:20 Seg Neutrophils % 83.9 % (40.0-70.0) H 12/19/16 04:20 Seg Neutrophils # 9.9 K/mm3 (1.8-7.7) H 12/19/16 04:20 PT 18.8 Sec. (12.2-14.9) H 12/18/16 16:55 INR 1.58 (0.87-1.13) H 12/18/16 16:55 APTT 34.5 Sec. (24.2-36.6) 12/18/16 16:55 D-Dimer 586.01 ng/mlDDU (0-234) H 12/14/16 18:03 POC ABG pH 7.392 (7.35-7.45) 12/23/16 04:48 POC ABG pCO2 37.6 (35-45) 12/23/16 04:48 POC ABG pO2 123 (80-105) H 12/23/16 04:48 POC ABG HCO3 22.9 12/23/16 04:48 POC ABG Total CO2 24 12/23/16 04:48 POC ABG O2 Sat 99 12/23/16 04:48 POC ABG Base Excess -2 12/23/16 04:48 FiO2 40 % 12/23/16 04:48 Sodium 142 mmol/L (137-145) 12/26/16 06:00 Potassium 4.2 mmol/L (3.6-5.0) 12/26/16 06:00 Chloride 103.5 mmol/L (98-107) 12/26/16 06:00 Carbon Dioxide 23 mmol/L (22-30) 12/26/16 06:00 Anion Gap 20 mmol/L 12/26/16 06:00 BUN 70 mg/dL (9-20) H 12/26/16 06:00 Creatinine 5.4 mg/dL (0.8-1.5) H 12/26/16 06:00 Estimated GFR 11 ml/min 12/26/16 06:00 BUN/Creatinine Ratio 12.96 % 12/26/16 06:00 Glucose 140 mg/dL (75-100) H 12/26/16 06:00 POC Glucose 160 (70-105) H 12/25/16 00:09 Lactic Acid 1.9 mmol/L (0.7-2.0) 12/18/16 09:00 Calcium 7.3 mg/dL (8.4-10.2) L 12/26/16 06:00 Phosphorus 5.4 mg/dL (2.5-4.5) H D 12/18/16 18:21 Magnesium 2.5 mg/dL (1.7-2.3) H 12/17/16 09:10 Total Bilirubin 0.9 mg/dL (0.1-1.2) 12/19/16 04:20 Direct Bilirubin 0.7 mg/dL (0-0.2) H 12/07/16 05:30 Indirect Bilirubin 0.4 mg/dL 12/07/16 05:30 AST 1058 units/L (5-40) H 12/19/16 04:20 ALT 133 units/L (7-56) H 12/19/16 04:20 Alkaline Phosphatase 35 units/L (35-129) 12/19/16 04:20 Ammonia 42.0 umol/L (25-60) 12/06/16 16:07 Total Creatine Kinase 242 units/L (55-170) H 12/07/16 06:58 CK-MB (CK-2) 2.8 ng/mL (0.0-4.0) 12/07/16 06:58 CK-MB (CK-2) Rel Index 1.1 (0-4) 12/07/16 06:58 Troponin T < 0.010 ng/mL (0.00-0.029) 12/07/16 06:58 C-Reactive Protein 1.20 mg/dL (0.00-1.30) 12/15/16 11:37 Total Protein 6.1 g/dL (6.3-8.2) L 12/19/16 04:20 Albumin 2.3 g/dL (3.9-5) L 12/19/16 04:20 Albumin/Globulin Ratio 0.6 % 12/19/16 04:20 Vitamin B12 815.1 pg/mL (211-911) 12/15/16 09:15 TSH 0.204 mlU/mL (0.270-4.200) L 12/15/16 13:40 Free T4 1.16 ng/dL (0.76-1.46) 12/15/16 13:40 Urine Color Winsome (Yellow) 12/06/16 15:30 Urine Turbidity Clear (Clear) 12/06/16 15:30 Urine pH 6.0 (5.0-7.0) 12/06/16 15:30 Ur Specific [place] 1.017 (1.003-1.030) 12/06/16 15:30 Urine Protein 100 mg/dl mg/dL (Negative) 12/06/16 15:30 Urine Glucose (UA) 50 mg/dL (Negative) 12/06/16 15:30 Urine Ketones Neg mg/dL (Negative) 12/06/16 15:30 Urine Blood Sm (Negative) 12/06/16 15:30 Urine Nitrite Neg (Negative) 12/06/16 15:30 Urine Bilirubin Neg (Negative) 12/06/16 15:30 Urine Urobilinogen 4.0 mg/dL (<2.0) 12/06/16 15:30 Ur Leukocyte Esterase Neg (Negative) 12/06/16 15:30 Urine WBC (Auto) < 1.0 /HPF (0.0-6.0) 12/06/16 15:30 Urine RBC (Auto) 4.0 /HPF (0.0-6.0) 12/06/16 15:30 Urine Mucus Few /HPF 12/06/16 15:30 Vancomycin Trough 33.7 ug/mL (5.0-20.0) H 12/16/16 18:34 Salicylates < 0.3 mg/dL (2.8-20.0) L 12/06/16 16:07 Urine Opiates Screen Presumptive negative 12/06/16 15:30 Urine Methadone Screen Presumptive negative 12/06/16 15:30 Acetaminophen < 15.0 ug/mL (10.0-30.0) 12/06/16 16:07 Ur Barbiturates Screen Presumptive negative 12/06/16 15:30 Ur Phencyclidine Scrn Presumptive negative 12/06/16 15:30 Ur Amphetamines Screen Presumptive negative 12/06/16 15:30 U Benzodiazepines Scrn Presumptive negative 12/06/16 15:30 Urine Cocaine Screen Presumptive negative 12/06/16 15:30 U Marijuana (THC) Screen Presumptive negative 12/06/16 15:30 Drugs of Abuse Note Disclamer 12/06/16 15:30 Plasma/Serum Alcohol < 0.01 gm% (0-0.07) 12/06/16 16:07 Hepatitis A IgM Ab Non-reactive (NonReactive) 12/18/16 18:21 Hep Bs Antigen Non-reactive (Negative) 12/18/16 18:21 Hep B Core IgM Ab Non-reactive (NonReactive) 12/18/16 18:21 Hepatitis C Antibody Reactive (NonReactive) 12/18/16 18:21 Blood Type A NEGATIVE 12/23/16 07:30 Antibody Screen Negative 12/23/16 07:30 Crossmatch See Detail 12/23/16 07:30
[2016-12-26 09:30] LABS: ISTAT Base Excess TNR
[2016-12-26 09:31] LABS: ISTAT HCO3 TNR; ISTAT PCO2 TNR (35-45); ISTAT PH TNR (7.35-7.45); ISTAT PO2 TNR (80-105); ISTAT SO2 TNR; ISTAT TCO2 TNR
[2016-12-26] MEDS: LEVEMIR SUB-Q SCH (10:12)
[2016-12-26] MEDS: BABY ASPIRIN PO SCH (10:12)
[2016-12-26] MEDS: Centrum Liq PO SCH (10:12)
[2016-12-26] MEDS: FOLVITE PO SCH (10:12)
[2016-12-26] MEDS: BACTRIM DS PO SCH (10:12)
[2016-12-26] MEDS: REGLAN IV SCH ×2 (10:13→21:44)
[2016-12-26] MEDS: PROTONIX PO SCH (10:13)
[2016-12-26] MEDS: VITAMIN B-1 PO SCH (10:13)
[2016-12-26] MEDS: PROCRIT IV PRN (11:59)
--- NOTE | 2016-12-26 12:10 | Progress Note ---
Assessment and Plan Acute respiratory failure currently intubated Septic shock Pneumonia Altered mental status Anemia requiring blood transfusion Thrombocytopenia Acute renal failure initiated on HD this admission Chronic systolic heart failure Ischemic cardiomyopathy Echo this admission demonstrates left ventricular ejection fraction 35%. Hx of CAD [facility] 2013: patent mid LAD stent, patent diagonal branch stent, patent mid obtuse marginal stent. Nonobstructive disease of the RCA. EF 30-35%. Conservative cardiac management. Subjective Date of service: 12/26/16 Principal diagnosis: Acute hypoxemic respiratory failure, shock Interval history: Patient awake with eyes open. Remains intubated on the vent. Undergoing dialysis. Objective Vital Signs Temp Pulse Pulse Pulse Resp Resp BP 12/26/16 12:00 103 H 113/64 12/26/16 11:45 105 H 128/71 12/26/16 11:30 111 H 116/66 12/26/16 11:15 111 H 123/67 12/26/16 11:00 102 H 12 122/64 12/26/16 10:45 101 H 15 111/56 12/26/16 10:30 108 H 13 123/62 12/26/16 10:16 106 H 10 L 123/63 12/26/16 10:15 102.3 F H 102 H 14 123/62 12/26/16 10:00 110 H 12 123/63 12/26/16 09:46 104 H 9 L 127/69 12/26/16 09:30 108 H 11 L 127/69 12/26/16 09:16 109 H 11 L 125/67 12/26/16 09:00 109 H 12 125/67 12/26/16 08:46 106 H 13 129/64 12/26/16 08:30 108 H 9 L 129/64 12/26/16 08:24 107 H 131/65 12/26/16 08:16 106 H 9 L 131/65 12/26/16 08:00 102.3 F H 108 H 106 H 16 131/65 12/26/16 07:46 105 H 9 L 119/66 12/26/16 07:30 103 H 14 119/66 12/26/16 07:15 108 H 15 136/66 12/26/16 07:00 106 H 16 126/67 12/26/16 06:45 105 H 16 130/68 12/26/16 06:30 108 H 15 129/70 12/26/16 06:15 107 H 14 128/66 17 06:00 103 H 16 124/65 12/26/16 05:45 101 H 15 123/60 12/26/16 05:30 101 H 14 123/61 17 05:15 97 H 17 115/57 12/26/16 05:00 96 H 13 106/58 12/26/16 04:45 94 H 15 107/58 12/26/16 04:30 91 H 16 103/57 12/26/16 04:15 95 H 12 104/56 12/26/16 04:00 99.4 F 90 92 H 14 100/55 12/26/16 03:45 89 18 86/46 12/26/16 03:30 89 17 91/48 12/26/16 03:15 89 17 88/47 12/26/16 03:00 90 16 88/47 12/26/16 02:45 91 H 16 91/48 12/26/16 02:30 93 H 16 88/49 12/26/16 02:15 92 H 18 91/47 12/26/16 02:00 95 H 17 95/49 12/26/16 01:59 104 H 98/48 12/26/16 01:45 94 H 14 91/46 12/26/16 01:30 108 H 14 102/57 12/26/16 01:15 96 H 18 85/46 12/26/16 01:00 98 H 15 99/45 12/26/16 00:45 101 H 17 106/50 12/26/16 00:30 102 H 16 106/50 12/26/16 00:15 109 H 16 114/62 12/26/16 00:00 101.6 F H 112 H 92 H 19 125/66 17 23:45 110 H 17 122/63 12/25/17 23:30 103 H 17 123/60 17 23:15 107 H 16 114/61 17 23:00 106 H 16 111/61 12/25/17 22:45 100 H 14 103/56 12/25/17 22:35 101 H 19 104/58 12/25/17 22:30 103 H 13 104/58 12/25/17 22:15 99 H 16 115/56 03/16/17 22:00 101 H 15 109/53 /16/17 21:45 102 H 16 109/58 /16/17 21:30 100 H 13 109/58 /16/17 21:15 107 H 15 117/64 /16/17 21:00 101 H 15 122/62 /16/17 20:45 99 H 98 H 16 16 119/61 /16/17 20:35 98 H 17 16/17 20:31 98 H 121/62 /16/17 20:30 104 H 15 121/62 /16/17 20:15 98 H 15 117/61 /16/17 20:00 99.7 F H 102 H 13 115/58 /16/17 19:58 100 H 13 16/17 19:45 97 H 13 101/53 /16/17 19:30 94 H 18 101/53 /16/17 19:15 94 H 13 101/53 /16/17 19:00 92 H 16 97/53 /16/17 18:45 94 H 16 107/57 16/17 18:30 92 H 18 119/59 16/17 18:15 103 H 96 H 17 15 97/55 /16/17 18:09 90 97/55 /16/17 18:00 84 15 97/55 /16/17 17:45 85 15 99/55 /16/17 17:30 84 15 93/54 /16/17 17:15 82 17 97/54 /16/17 17:00 100.1 F H 83 16 97/54 /16/17 16:45 85 13 94/51 03/16/17 16:30 84 17 87/51 03/16/17 16:15 86 12 90/50 03/16/17 16:00 86 85 15 91/52 03/16/17 15:45 85 13 94/52 03/16/17 15:30 87 14 88/52 03/16/17 15:15 94 H 14 79/52 /16/17 15:00 95 H 16 86/47 03/16/17 14:45 97 H 14 103/51 /16/17 14:30 101 H 14 102/53 /16/17 14:17 104 H 97/58 03/16/17 14:15 99.6 F 106 H 15 97/58 12/25/16 14:13 103 H 13 104/55 12/25/16 14:00 99.6 F Pulse Ox 12/26/16 12:00 12/26/16 11:45 12/26/16 11:30 12/26/16 11:15 12/26/16 11:00 98 12/26/16 10:45 99 12/26/16 10:30 98 12/26/16 10:16 99 12/26/16 10:15 12/26/16 10:00 98 12/26/16 09:46 99 12/26/16 09:30 99 12/26/16 09:16 99 12/26/16 09:00 96 12/26/16 08:46 96 12/26/16 08:30 97 12/26/16 08:24 98 12/26/16 08:16 98 12/26/16 08:00 98 12/26/16 07:46 97 12/26/16 07:30 96 12/26/16 07:15 97 12/26/16 07:00 97 12/26/16 06:45 97 12/26/16 06:30 97 12/26/16 06:15 97 12/26/16 06:00 96 12/26/16 05:45 96 12/26/16 05:30 96 12/26/16 05:15 96 12/26/16 05:00 12/26/16 04:45 12/26/16 04:30 12/26/16 04:15 98 12/26/16 04:00 98 12/26/16 03:45 98 12/26/16 03:30 98 12/26/16 03:15 98 12/26/16 03:00 98 12/26/16 02:45 98 12/26/16 02:30 98 12/26/16 02:15 98 12/26/16 02:00 98 12/26/16 01:59 100 12/26/16 01:45 99 12/26/16 01:30 99 12/26/16 01:15 97 12/26/16 01:00 96 12/26/16 00:45 98 12/26/16 00:30 96 12/26/16 00:15 97 12/26/16 00:00 98 12/25/16 23:45 98 12/25/16 23:30 12/25/16 23:15 98 12/25/16 23:00 98 12/25/16 22:45 97 12/25/16 22:35 100 12/25/16 22:30 98 12/25/16 22:15 12/25/16 22:00 96 12/25/16 21:45 99 12/25/16 21:30 97 12/25/16 21:15 98 12/25/16 21:00 96 12/25/16 20:45 96 12/25/16 20:35 12/25/16 20:31 97 12/25/16 20:30 97 12/25/16 20:15 96 12/25/16 20:00 95 12/25/16 19:58 98 12/25/16 19:45 98 12/25/16 19:30 97 12/25/16 19:15 96 12/25/16 19:00 95 12/25/16 18:45 97 12/25/16 18:30 97 12/25/16 18:15 98 12/25/16 18:09 98 12/25/16 18:00 97 12/25/16 17:45 98 12/25/16 17:30 98 12/25/16 17:15 98 12/25/16 17:00 98 12/25/16 16:45 98 12/25/16 16:30 99 12/25/16 16:15 98 12/25/16 16:00 98 12/25/16 15:45 98 12/25/16 15:30 98 12/25/16 15:15 96 12/25/16 15:00 95 12/25/16 14:45 93 12/25/16 14:30 93 12/25/16 14:17 96 12/25/16 14:15 94 12/25/16 14:13 95 12/25/16 14:00 - Physical Examination General: Other (intubated on mechanical ventilator) HEENT: Positive: PERRL Cardiac: Positive: Tachycardia Abdomen: Positive: Soft Extremities: Absent: edema - Labs and Meds CBC 12/26/16 Range/Units 06:00 Hgb 8.0 L (11.8-15.2) gm/dl Hct 24.1 L (35.5-45.6) % Plt Count 141 (140-440) K/mm3 Comprehensive Metabolic Panel 12/26/16 Range/Units 06:00 Sodium 142 (137-145) mmol/L Potassium 4.2 (3.6-5.0) mmol/L Chloride 103.5 (98-107) mmol/L Carbon Dioxide 23 (22-30) mmol/L BUN 70 H (9-20) mg/dL Creatinine 5.4 H (0.8-1.5) mg/dL Glucose 140 H (75-100) mg/dL Calcium 7.3 L (8.4-10.2) mg/dL - Allied health notes Allied health notes reviewed: RT
--- NOTE | 2016-12-26 13:04 | Progress Note ---
Assessment and Plan - Patient Problems (1) Acute hypoxemic respiratory failure Current Visit: Yes Status: Acute (2) Altered mental status Current Visit: Yes Status: Acute Qualifiers: Altered mental status type: A Coma depth: C Coma timing: C (3) Septic shock Current Visit: Yes Status: Acute (4) Diabetes Current Visit: No Status: Chronic Qualifiers: Diabetes mellitus type: D Diabetes mellitus complication status: D Diabetes mellitus complication detail: D Diabetic retinopathy severity: D Proliferative retinopathy type: P Diabetes mellitus macular edema: D Diabetes mellitus [facility] insulin use: D Laterality: L Chronic kidney disease stage: C (5) BRITTANY (acute kidney injury) Current Visit: Yes Status: Deleted (6) Subclavian artery injury Current Visit: Yes Status: Acute Qualifiers: Encounter type: E Laterality: L (7) Discharge planning issues Current Visit: Yes Status: Acute Subjective Date of service: 12/26/16 Principal diagnosis: Acute hypoxemic respiratory failure, shock Interval history: Seen and examined at bedside; 24 hour events reviewed; nursing and respiratory care staff consulted; no adverse overnight events reported to me; Objective Vital Signs - 12hr 12/26/16 12/26/16 12/26/16 01:15 01:30 01:45 Temperature Pulse Rate 96 H 108 H 94 H Pulse Rate [ From Monitor] Respiratory 18 14 14 Rate Blood Pressure 85/46 102/57 91/46 O2 Sat by Pulse 97 99 99 Oximetry 12/26/16 12/26/16 12/26/16 01:59 02:00 02:15 Temperature Pulse Rate 104 H 95 H 92 H Pulse Rate [ From Monitor] Respiratory 17 18 Rate Blood Pressure 98/48 95/49 91/47 O2 Sat by Pulse 100 98 98 Oximetry 12/26/16 12/26/16 12/26/16 02:30 02:45 03:00 Temperature Pulse Rate 93 H 91 H 90 Pulse Rate [ From Monitor] Respiratory 16 16 16 Rate Blood Pressure 88/49 91/48 88/47 O2 Sat by Pulse 98 98 98 Oximetry 12/26/16 12/26/16 12/26/16 03:15 03:30 03:45 Temperature Pulse Rate 89 89 89 Pulse Rate [ From Monitor] Respiratory 17 17 18 Rate Blood Pressure 88/47 91/48 86/46 O2 Sat by Pulse 98 98 98 Oximetry 12/26/16 12/26/16 12/26/16 04:00 04:15 04:30 Temperature 99.4 F Pulse Rate 90 95 H 91 H Pulse Rate [ 92 H From Monitor] Respiratory 14 12 16 Rate Blood Pressure 100/55 104/56 103/57 O2 Sat by Pulse 98 98 Oximetry 12/26/16 12/26/16 12/26/16 04:45 05:00 05:15 Temperature Pulse Rate 94 H 96 H 97 H Pulse Rate [ From Monitor] Respiratory 15 13 17 Rate Blood Pressure 107/58 106/58 115/57 O2 Sat by Pulse 96 Oximetry 12/26/16 12/26/16 12/26/16 05:30 05:45 06:00 Temperature Pulse Rate 101 H 101 H 103 H Pulse Rate [ From Monitor] Respiratory 14 15 16 Rate Blood Pressure 123/61 123/60 124/65 O2 Sat by Pulse 96 96 96 Oximetry 12/26/16 12/26/16 12/26/16 06:15 06:30 06:45 Temperature Pulse Rate 107 H 108 H 105 H Pulse Rate [ From Monitor] Respiratory 14 15 16 Rate Blood Pressure 128/66 129/70 130/68 O2 Sat by Pulse 97 97 97 Oximetry 12/26/16 12/26/16 12/26/16 07:00 07:15 07:30 Temperature Pulse Rate 106 H 108 H 103 H Pulse Rate [ From Monitor] Respiratory 16 15 14 Rate Blood Pressure 126/67 136/66 119/66 O2 Sat by Pulse 97 97 96 Oximetry 12/26/16 12/26/16 12/26/16 07:46 08:00 08:16 Temperature 102.3 F H Pulse Rate 105 H 108 H 106 H Pulse Rate [ 106 H From Monitor] Respiratory 9 L 16 9 L Rate Blood Pressure 119/66 131/65 131/65 O2 Sat by Pulse 97 98 98 Oximetry 12/26/16 12/26/16 12/26/16 08:24 08:30 08:46 Temperature Pulse Rate 107 H 108 H 106 H Pulse Rate [ From Monitor] Respiratory 9 L 13 Rate Blood Pressure 131/65 129/64 129/64 O2 Sat by Pulse 98 97 96 Oximetry 12/26/16 12/26/16 12/26/16 09:00 09:16 09:30 Temperature Pulse Rate 109 H 109 H 108 H Pulse Rate [ From Monitor] Respiratory 12 11 L 11 L Rate Blood Pressure 125/67 125/67 127/69 O2 Sat by Pulse 96 99 99 Oximetry 12/26/16 12/26/16 12/26/16 09:46 10:00 10:15 Temperature 102.3 F H Pulse Rate 104 H 110 H 102 H Pulse Rate [ From Monitor] Respiratory 9 L 12 14 Rate Blood Pressure 127/69 123/63 123/62 O2 Sat by Pulse 99 98 Oximetry 12/26/16 12/26/16 12/26/16 10:16 10:30 10:45 Temperature Pulse Rate 106 H 108 H 101 H Pulse Rate [ From Monitor] Respiratory 10 L 13 15 Rate Blood Pressure 123/63 123/62 111/56 O2 Sat by Pulse 99 98 99 Oximetry 12/26/16 12/26/16 12/26/16 11:00 11:15 11:30 Temperature Pulse Rate 102 H 106 H 101 H Pulse Rate [ From Monitor] Respiratory 12 16 13 Rate Blood Pressure 122/64 123/67 116/66 O2 Sat by Pulse 98 98 98 Oximetry 12/26/16 12/26/16 12/26/16 11:45 12:00 12:15 Temperature 99.7 F H Pulse Rate 107 H 98 H 101 H Pulse Rate [ 102 H From Monitor] Respiratory 16 18 15 Rate Blood Pressure 128/71 113/64 128/72 O2 Sat by Pulse 98 99 98 Oximetry 12/26/16 12/26/16 12/26/16 12:28 12:32 12:45 Temperature Pulse Rate 101 H 104 H 104 H Pulse Rate [ From Monitor] Respiratory Rate Blood Pressure 128/72 128/74 136/74 O2 Sat by Pulse 98 Oximetry Constitutional: other (sedated) Eyes: non-icteric ENT: oropharynx moist Neck: supple, no lymphadenopathy, no JVD Effort: mildly labored Ascultation: Bilateral: clear, diminished breath sounds, rales (basilar and scant), rhonchi Cardiovascular: regular rate and rhythm Gastrointestinal: normoactive bowel sounds, hypoactive bowel sounds, soft, non- tender, non-distended Integumentary: normal Extremities: no cyanosis, pink and warm, pulses normal, no ischemia or petechiae Neurologic: non-focal exam (grossly), pupils equal and round, unable to assess Psychiatric: other (sedated) CBC and BMP: 12/26/16 06:00 12/26/16 06:00 ABG, PT/INR, D-dimer: ABG POC ABG pH 7.392 (7.35-7.45) 12/23/16 04:48 POC ABG pCO2 37.6 (35-45) 12/23/16 04:48 POC ABG pO2 123 (80-105) H 12/23/16 04:48 POC ABG HCO3 22.9 12/23/16 04:48 POC ABG Total CO2 24 12/23/16 04:48 POC ABG O2 Sat 99 12/23/16 04:48 PT/INR, D-dimer PT 18.8 Sec. (12.2-14.9) H 12/18/16 16:55 INR 1.58 (0.87-1.13) H 12/18/16 16:55 D-Dimer 586.01 ng/mlDDU (0-234) H 12/14/16 18:03 Abnormal lab findings: Abnormal Labs 12/07/16 12/07/16 12/07/16 00:35 05:30 05:30 WBC RBC Hgb Hct MCV MCHC RDW 13.0 L Plt Count 93 L Lymph % (Auto) Jay % (Auto) 11.2 H Jay # 1.1 H Baso # Seg Neutrophils % 71.3 H Seg Neutrophils # PT INR D-Dimer POC ABG pH POC ABG pCO2 POC ABG pO2 Sodium Potassium Chloride Carbon Dioxide BUN Creatinine 0.6 L Glucose 168 H POC Glucose Lactic Acid Calcium 7.8 L Phosphorus Magnesium Direct Bilirubin 0.7 H AST ALT Alkaline Phosphatase Total Creatine Kinase 343 H C-Reactive Protein Total Protein Albumin 2.6 L TSH Vancomycin Trough Crossmatch 12/07/16 12/07/16 12/07/16 06:58 16:41 18:30 WBC RBC Hgb Hct MCV MCHC RDW Plt Count Lymph % (Auto) Jay % (Auto) Jay # Baso # Seg Neutrophils % Seg Neutrophils # PT INR D-Dimer POC ABG pH POC ABG pCO2 POC ABG pO2 Sodium Potassium Chloride Carbon Dioxide BUN Creatinine Glucose POC Glucose 175 H Lactic Acid Calcium Phosphorus Magnesium Direct Bilirubin AST ALT Alkaline Phosphatase Total Creatine Kinase 242 H C-Reactive Protein 7.70 H Total Protein Albumin TSH Vancomycin Trough Crossmatch 12/09/16 12/10/16 12/10/16 11:58 06:05 12:24 WBC RBC Hgb Hct MCV MCHC RDW Plt Count Lymph % (Auto) Jay % (Auto) Jay # Baso # Seg Neutrophils % Seg Neutrophils # PT INR D-Dimer POC ABG pH 7.485 H POC ABG pCO2 POC ABG pO2 Sodium Potassium Chloride Carbon Dioxide BUN Creatinine Glucose POC Glucose 141 H 183 H Lactic Acid Calcium Phosphorus Magnesium Direct Bilirubin AST ALT Alkaline Phosphatase Total Creatine Kinase C-Reactive Protein Total Protein Albumin TSH Vancomycin Trough Crossmatch 12/10/16 12/10/16 12/11/16 17:47 23:21 06:10 WBC RBC Hgb Hct MCV MCHC RDW Plt Count Lymph % (Auto) Jay % (Auto) Jay # Baso # Seg Neutrophils % Seg Neutrophils # PT INR D-Dimer POC ABG pH POC ABG pCO2 POC ABG pO2 Sodium Potassium Chloride Carbon Dioxide BUN Creatinine Glucose POC Glucose 176 H 240 H 252 H Lactic Acid Calcium Phosphorus Magnesium Direct Bilirubin AST ALT Alkaline Phosphatase Total Creatine Kinase C-Reactive Protein Total Protein Albumin TSH Vancomycin Trough Crossmatch 12/11/16 12/11/16 12/11/16 08:29 09:14 11:37 WBC RBC Hgb Hct MCV MCHC RDW 13.1 L Plt Count Lymph % (Auto) Jay % (Auto) Jay # Baso # Seg Neutrophils % Seg Neutrophils # PT INR D-Dimer POC ABG pH POC ABG pCO2 POC ABG pO2 Sodium Potassium Chloride Carbon Dioxide BUN Creatinine Glucose POC Glucose 253 H 284 H Lactic Acid Calcium Phosphorus Magnesium Direct Bilirubin AST ALT Alkaline Phosphatase Total Creatine Kinase C-Reactive Protein Total Protein Albumin TSH Vancomycin Trough Crossmatch 12/11/16 12/11/16 12/11/16 16:12 17:54 23:35 WBC RBC Hgb Hct MCV MCHC RDW Plt Count Lymph % (Auto) Jay % (Auto) Jay # Baso # Seg Neutrophils % Seg Neutrophils # PT INR D-Dimer POC ABG pH POC ABG pCO2 POC ABG pO2 Sodium Potassium Chloride Carbon Dioxide BUN 37 H Creatinine Glucose 258 H POC Glucose 227 H 264 H Lactic Acid Calcium 8.3 L Phosphorus Magnesium Direct Bilirubin AST ALT Alkaline Phosphatase Total Creatine Kinase C-Reactive Protein Total Protein Albumin 2.6 L TSH Vancomycin Trough Crossmatch 12/12/16 12/12/16 12/12/16 04:37 06:06 10:12 WBC RBC Hgb Hct MCV MCHC RDW Plt Count Lymph % (Auto) Jay % (Auto) Jay # Baso # Seg Neutrophils % Seg Neutrophils # PT INR D-Dimer POC ABG pH 7.500 H POC ABG pCO2 POC ABG pO2 69 L Sodium Potassium Chloride Carbon Dioxide BUN Creatinine Glucose POC Glucose 288 H Lactic Acid Calcium Phosphorus Magnesium Direct Bilirubin AST ALT Alkaline Phosphatase Total Creatine Kinase C-Reactive Protein Total Protein Albumin TSH Vancomycin Trough Crossmatch 12/12/16 12/12/16 12/12/16 13:08 17:46 23:31 WBC RBC Hgb Hct MCV MCHC RDW Plt Count Lymph % (Auto) Jay % (Auto) Jay # Baso # Seg Neutrophils % Seg Neutrophils # PT INR D-Dimer POC ABG pH POC ABG pCO2 POC ABG pO2 Sodium Potassium Chloride Carbon Dioxide BUN Creatinine Glucose POC Glucose 215 H 234 H 241 H Lactic Acid Calcium Phosphorus Magnesium Direct Bilirubin AST ALT Alkaline Phosphatase Total Creatine Kinase C-Reactive Protein Total Protein Albumin TSH Vancomycin Trough Crossmatch 12/13/16 12/13/16 12/13/16 05:38 11:44 17:32 WBC RBC Hgb Hct MCV MCHC RDW Plt Count Lymph % (Auto) Jay % (Auto) Jay # Baso # Seg Neutrophils % Seg Neutrophils # PT INR D-Dimer POC ABG pH POC ABG pCO2 POC ABG pO2 Sodium Potassium Chloride Carbon Dioxide BUN Creatinine Glucose POC Glucose 215 H 237 H 215 H Lactic Acid Calcium Phosphorus Magnesium Direct Bilirubin AST ALT Alkaline Phosphatase Total Creatine Kinase C-Reactive Protein Total Protein Albumin TSH Vancomycin Trough Crossmatch 12/14/16 12/14/16 12/14/16 00:22 05:40 12:03 WBC RBC Hgb Hct MCV MCHC RDW Plt Count Lymph % (Auto) Jay % (Auto) Jay # Baso # Seg Neutrophils % Seg Neutrophils # PT INR D-Dimer POC ABG pH POC ABG pCO2 POC ABG pO2 Sodium Potassium Chloride Carbon Dioxide BUN Creatinine Glucose POC Glucose 268 H 301 H 312 H Lactic Acid Calcium Phosphorus Magnesium Direct Bilirubin AST ALT Alkaline Phosphatase Total Creatine Kinase C-Reactive Protein Total Protein Albumin TSH Vancomycin Trough Crossmatch 12/14/16 12/14/16 12/14/16 18:03 18:03 18:03 WBC RBC Hgb Hct MCV MCHC RDW 12.9 L Plt Count Lymph % (Auto) Jay % (Auto) 8.0 H Jay # Baso # Seg Neutrophils % 72.4 H Seg Neutrophils # PT INR D-Dimer 586.01 H POC ABG pH POC ABG pCO2 POC ABG pO2 Sodium 150 H Potassium Chloride 109.1 H Carbon Dioxide BUN 50 H Creatinine Glucose 261 H POC Glucose Lactic Acid Calcium Phosphorus Magnesium Direct Bilirubin AST ALT Alkaline Phosphatase Total Creatine Kinase C-Reactive Protein Total Protein Albumin TSH Vancomycin Trough Crossmatch 12/14/16 12/14/16 12/14/16 18:30 21:55 23:59 WBC RBC Hgb Hct MCV MCHC RDW Plt Count Lymph % (Auto) Jay % (Auto) Jay # Baso # Seg Neutrophils % Seg Neutrophils # PT INR D-Dimer POC ABG pH POC ABG pCO2 POC ABG pO2 Sodium Potassium Chloride Carbon Dioxide BUN Creatinine Glucose POC Glucose 321 H 258 H 262 H Lactic Acid Calcium Phosphorus Magnesium Direct Bilirubin AST ALT Alkaline Phosphatase Total Creatine Kinase C-Reactive Protein Total Protein Albumin TSH Vancomycin Trough Crossmatch 12/15/16 12/15/16 12/15/16 05:28 06:04 09:15 WBC RBC Hgb Hct MCV MCHC RDW Plt Count Lymph % (Auto) Jay % (Auto) Jay # Baso # Seg Neutrophils % Seg Neutrophils # PT INR D-Dimer POC ABG pH POC ABG pCO2 POC ABG pO2 Sodium Potassium Chloride Carbon Dioxide BUN Creatinine Glucose POC Glucose 274 H 276 H Lactic Acid Calcium Phosphorus Magnesium Direct Bilirubin AST ALT Alkaline Phosphatase Total Creatine Kinase C-Reactive Protein Total Protein Albumin TSH 0.220 L Vancomycin Trough Crossmatch 12/15/16 12/15/16 12/15/16 11:59 13:40 18:06 WBC RBC Hgb Hct MCV MCHC RDW Plt Count Lymph % (Auto) Jay % (Auto) Jay # Baso # Seg Neutrophils % Seg Neutrophils # PT INR D-Dimer POC ABG pH POC ABG pCO2 33.3 L POC ABG pO2 70 L Sodium Potassium Chloride Carbon Dioxide BUN Creatinine Glucose POC Glucose 273 H Lactic Acid Calcium Phosphorus Magnesium Direct Bilirubin AST ALT Alkaline Phosphatase Total Creatine Kinase C-Reactive Protein Total Protein Albumin TSH 0.204 L Vancomycin Trough Crossmatch 12/15/16 12/15/16 12/16/16 18:14 21:26 02:08 WBC RBC Hgb Hct MCV MCHC RDW Plt Count Lymph % (Auto) Jay % (Auto) Jay # Baso # Seg Neutrophils % Seg Neutrophils # PT INR D-Dimer POC ABG pH 7.341 L POC ABG pCO2 POC ABG pO2 223 H Sodium Potassium Chloride Carbon Dioxide BUN Creatinine Glucose POC Glucose 234 H 371 H Lactic Acid Calcium Phosphorus Magnesium Direct Bilirubin AST ALT Alkaline Phosphatase Total Creatine Kinase C-Reactive Protein Total Protein Albumin TSH Vancomycin Trough Crossmatch 12/16/16 12/16/16 12/16/16 05:12 05:18 09:40 WBC RBC Hgb Hct MCV MCHC RDW Plt Count Lymph % (Auto) Jay % (Auto) Jay # Baso # Seg Neutrophils % Seg Neutrophils # PT INR D-Dimer POC ABG pH POC ABG pCO2 32.5 L POC ABG pO2 Sodium 154 H Potassium Chloride 116.8 H Carbon Dioxide 18 L D BUN 92 H Creatinine 3.0 H D Glucose 364 H POC Glucose 357 H Lactic Acid Calcium 8.2 L Phosphorus Magnesium Direct Bilirubin AST ALT Alkaline Phosphatase Total Creatine Kinase C-Reactive Protein Total Protein Albumin TSH Vancomycin Trough Crossmatch 12/16/16 12/16/16 12/16/16 13:40 18:27 18:34 WBC RBC Hgb Hct MCV MCHC RDW Plt Count Lymph % (Auto) Jay % (Auto) Jay # Baso # Seg Neutrophils % Seg Neutrophils # PT INR D-Dimer POC ABG pH POC ABG pCO2 POC ABG pO2 Sodium Potassium Chloride Carbon Dioxide BUN Creatinine Glucose POC Glucose 391 H 472 H Lactic Acid Calcium Phosphorus Magnesium Direct Bilirubin AST ALT Alkaline Phosphatase Total Creatine Kinase C-Reactive Protein Total Protein Albumin TSH Vancomycin Trough 33.7 H Crossmatch 12/17/16 12/17/16 12/17/16 00:38 01:54 05:53 WBC RBC Hgb Hct MCV MCHC RDW Plt Count Lymph % (Auto) Jay % (Auto) Jay # Baso # Seg Neutrophils % Seg Neutrophils # PT INR D-Dimer POC ABG pH 7.234 L POC ABG pCO2 34.5 L POC ABG pO2 50 L Sodium Potassium Chloride Carbon Dioxide BUN Creatinine Glucose POC Glucose 386 H 400 H Lactic Acid Calcium Phosphorus Magnesium Direct Bilirubin AST ALT Alkaline Phosphatase Total Creatine Kinase C-Reactive Protein Total Protein Albumin TSH Vancomycin Trough Crossmatch 12/17/16 12/17/16 12/17/16 06:45 06:45 07:45 WBC 12.3 H RBC Hgb 11.7 L Hct MCV 97 H D MCHC 31 L RDW Plt Count Lymph % (Auto) Jay % (Auto) 14.4 H Jay # 1.8 H Baso # 0.2 H Seg Neutrophils % Seg Neutrophils # 8.2 H PT INR D-Dimer POC ABG pH POC ABG pCO2 POC ABG pO2 Sodium Potassium 7.6 H* D Chloride 110.8 H Carbon Dioxide 14 L BUN 121 H Creatinine 5.4 H D Glucose 566 H* POC Glucose > 500 H Lactic Acid Calcium 6.2 L D Phosphorus Magnesium Direct Bilirubin AST 323 H ALT Alkaline Phosphatase 27 L Total Creatine Kinase C-Reactive Protein Total Protein Albumin 2.3 L TSH Vancomycin Trough Crossmatch 12/17/16 12/17/16 12/17/16 08:51 09:10 09:11 WBC RBC Hgb Hct MCV MCHC RDW Plt Count Lymph % (Auto) Jay % (Auto) Jay # Baso # Seg Neutrophils % Seg Neutrophils # PT INR D-Dimer POC ABG pH 7.113 L POC ABG pCO2 46.1 H POC ABG pO2 186 H Sodium Potassium Chloride Carbon Dioxide BUN Creatinine Glucose POC Glucose > 500 H Lactic Acid Calcium Phosphorus 9.5 H Magnesium 2.5 H Direct Bilirubin AST ALT Alkaline Phosphatase Total Creatine Kinase C-Reactive Protein Total Protein Albumin TSH Vancomycin Trough Crossmatch 12/17/16 12/17/16 12/17/16 10:18 10:50 11:17 WBC RBC Hgb Hct MCV MCHC RDW Plt Count Lymph % (Auto) Jay % (Auto) Jay # Baso # Seg Neutrophils % Seg Neutrophils # PT INR D-Dimer POC ABG pH POC ABG pCO2 POC ABG pO2 Sodium Potassium 6.1 H* Chloride 110.1 H Carbon Dioxide 14 L BUN 128 H Creatinine 5.5 H Glucose 580 H* POC Glucose > 500 H > 500 H Lactic Acid Calcium Phosphorus Magnesium Direct Bilirubin AST ALT Alkaline Phosphatase Total Creatine Kinase C-Reactive Protein Total Protein Albumin TSH Vancomycin Trough Crossmatch 12/17/16 12/17/16 12/17/16 12:09 12:30 13:36 WBC RBC Hgb Hct MCV MCHC RDW Plt Count Lymph % (Auto) Jay % (Auto) Jay # Baso # Seg Neutrophils % Seg Neutrophils # PT INR D-Dimer POC ABG pH POC ABG pCO2 POC ABG pO2 Sodium Potassium 5.6 H Chloride 110.4 H Carbon Dioxide 14 L BUN 138 H Creatinine 5.3 H Glucose 528 H* POC Glucose 428 H 426 H Lactic Acid Calcium 6.8 L D Phosphorus Magnesium Direct Bilirubin AST ALT Alkaline Phosphatase Total Creatine Kinase C-Reactive Protein Total Protein Albumin TSH Vancomycin Trough Crossmatch 12/17/16 12/17/16 12/17/16 14:11 14:25 14:45 WBC RBC Hgb Hct MCV MCHC RDW Plt Count Lymph % (Auto) Jay % (Auto) Jay # Baso # Seg Neutrophils % Seg Neutrophils # PT INR D-Dimer POC ABG pH 7.297 L POC ABG pCO2 34.2 L POC ABG pO2 114 H Sodium 146 H Potassium 5.3 H Chloride 109.3 H Carbon Dioxide 15 L BUN 128 H Creatinine 5.5 H Glucose 426 H POC Glucose 422 H Lactic Acid Calcium 6.7 L Phosphorus Magnesium Direct Bilirubin AST ALT Alkaline Phosphatase Total Creatine Kinase C-Reactive Protein Total Protein Albumin TSH Vancomycin Trough Crossmatch 12/17/16 12/17/16 12/17/16 15:07 16:03 16:56 WBC RBC Hgb Hct MCV MCHC RDW Plt Count Lymph % (Auto) Jay % (Auto) Jay # Baso # Seg Neutrophils % Seg Neutrophils # PT INR D-Dimer POC ABG pH POC ABG pCO2 POC ABG pO2 Sodium Potassium Chloride Carbon Dioxide BUN Creatinine Glucose POC Glucose 392 H 450 H 352 H Lactic Acid Calcium Phosphorus Magnesium Direct Bilirubin AST ALT Alkaline Phosphatase Total Creatine Kinase C-Reactive Protein Total Protein Albumin TSH Vancomycin Trough Crossmatch 12/17/16 12/17/16 12/17/16 18:00 18:10 18:38 WBC RBC Hgb Hct MCV MCHC RDW Plt Count Lymph % (Auto) Jay % (Auto) Jay # Baso # Seg Neutrophils % Seg Neutrophils # PT INR D-Dimer POC ABG pH POC ABG pCO2 POC ABG pO2 Sodium 147 H Potassium Chloride 109.7 H Carbon Dioxide 15 L BUN 140 H Creatinine 5.2 H Glucose 301 H POC Glucose 318 H 256 H Lactic Acid Calcium 6.5 L Phosphorus Magnesium Direct Bilirubin AST ALT Alkaline Phosphatase Total Creatine Kinase C-Reactive Protein Total Protein Albumin TSH Vancomycin Trough Crossmatch 12/17/16 12/17/16 12/17/16 19:31 20:00 20:44 WBC RBC Hgb Hct MCV MCHC RDW Plt Count Lymph % (Auto) Jay % (Auto) Jay # Baso # Seg Neutrophils % Seg Neutrophils # PT 17.7 H INR 1.46 H D-Dimer POC ABG pH POC ABG pCO2 30.5 L POC ABG pO2 134 H Sodium Potassium Chloride Carbon Dioxide BUN Creatinine Glucose POC Glucose 189 H Lactic Acid Calcium Phosphorus Magnesium Direct Bilirubin AST ALT Alkaline Phosphatase Total Creatine Kinase C-Reactive Protein Total Protein Albumin TSH Vancomycin Trough Crossmatch 12/17/16 12/17/16 12/18/16 21:59 23:18 00:15 WBC RBC Hgb Hct MCV MCHC RDW Plt Count Lymph % (Auto) Jay % (Auto) Jay # Baso # Seg Neutrophils % Seg Neutrophils # PT INR D-Dimer POC ABG pH POC ABG pCO2 POC ABG pO2 Sodium 147 H Potassium 5.2 H Chloride 107.9 H Carbon Dioxide 18 L BUN 143 H Creatinine 5.6 H Glucose 152 H POC Glucose 191 H 132 H Lactic Acid Calcium 6.3 L Phosphorus Magnesium Direct Bilirubin AST ALT Alkaline Phosphatase Total Creatine Kinase C-Reactive Protein Total Protein Albumin TSH Vancomycin Trough Crossmatch 12/18/16 12/18/16 12/18/16 00:18 01:08 02:35 WBC RBC Hgb Hct MCV MCHC RDW Plt Count Lymph % (Auto) Jay % (Auto) Jay # Baso # Seg Neutrophils % Seg Neutrophils # PT INR D-Dimer POC ABG pH POC ABG pCO2 POC ABG pO2 Sodium Potassium Chloride Carbon Dioxide BUN Creatinine Glucose POC Glucose 190 H 157 H 144 H Lactic Acid Calcium Phosphorus Magnesium Direct Bilirubin AST ALT Alkaline Phosphatase Total Creatine Kinase C-Reactive Protein Total Protein Albumin TSH Vancomycin Trough Crossmatch 12/18/16 12/18/16 12/18/16 03:14 04:11 05:07 WBC RBC Hgb Hct MCV MCHC RDW Plt Count Lymph % (Auto) Jay % (Auto) Jay # Baso # Seg Neutrophils % Seg Neutrophils # PT INR D-Dimer POC ABG pH POC ABG pCO2 POC ABG pO2 Sodium Potassium Chloride Carbon Dioxide BUN Creatinine Glucose POC Glucose 117 H 108 H 122 H Lactic Acid Calcium Phosphorus Magnesium Direct Bilirubin AST ALT Alkaline Phosphatase Total Creatine Kinase C-Reactive Protein Total Protein Albumin TSH Vancomycin Trough Crossmatch 12/18/16 12/18/16 12/18/16 05:23 06:07 06:07 WBC RBC 3.18 L Hgb 9.6 L Hct 29.0 L D MCV MCHC RDW Plt Count 130 L Lymph % (Auto) Jay % (Auto) Jay # Baso # Seg Neutrophils % Seg Neutrophils # PT INR D-Dimer POC ABG pH 7.485 H POC ABG pCO2 27.5 L POC ABG pO2 275 H Sodium Potassium Chloride Carbon Dioxide BUN Creatinine Glucose POC Glucose Lactic Acid 3.2 H* Calcium Phosphorus Magnesium Direct Bilirubin AST ALT Alkaline Phosphatase Total Creatine Kinase C-Reactive Protein Total Protein Albumin TSH Vancomycin Trough Crossmatch 12/18/16 12/18/16 12/18/16 06:08 06:22 07:26 WBC RBC Hgb Hct MCV MCHC RDW Plt Count Lymph % (Auto) Jay % (Auto) Jay # Baso # Seg Neutrophils % Seg Neutrophils # PT 18.3 H INR 1.52 H D-Dimer POC ABG pH POC ABG pCO2 POC ABG pO2 Sodium Potassium Chloride Carbon Dioxide BUN Creatinine Glucose POC Glucose 159 H 198 H Lactic Acid Calcium Phosphorus Magnesium Direct Bilirubin AST ALT Alkaline Phosphatase Total Creatine Kinase C-Reactive Protein Total Protein Albumin TSH Vancomycin Trough Crossmatch 12/18/16 12/18/16 12/18/16 08:27 09:00 09:30 WBC RBC Hgb Hct MCV MCHC RDW Plt Count Lymph % (Auto) Jay % (Auto) Jay # Baso # Seg Neutrophils % Seg Neutrophils # PT INR D-Dimer POC ABG pH POC ABG pCO2 POC ABG pO2 Sodium 147 H Potassium 5.5 H Chloride Carbon Dioxide 17 L BUN 145 H Creatinine 6.4 H Glucose 213 H POC Glucose 220 H 216 H Lactic Acid Calcium 6.0 L Phosphorus Magnesium Direct Bilirubin AST ALT Alkaline Phosphatase Total Creatine Kinase C-Reactive Protein Total Protein Albumin TSH Vancomycin Trough Crossmatch 12/18/16 12/18/16 12/18/16 10:29 11:11 12:05 WBC RBC Hgb Hct MCV MCHC RDW Plt Count Lymph % (Auto) Jay % (Auto) Jay # Baso # Seg Neutrophils % Seg Neutrophils # PT INR D-Dimer POC ABG pH POC ABG pCO2 POC ABG pO2 Sodium Potassium Chloride Carbon Dioxide BUN Creatinine Glucose POC Glucose 248 H 214 H 165 H Lactic Acid Calcium Phosphorus Magnesium Direct Bilirubin AST ALT Alkaline Phosphatase Total Creatine Kinase C-Reactive Protein Total Protein Albumin TSH Vancomycin Trough Crossmatch 12/18/16 12/18/16 12/18/16 13:06 13:59 14:45 WBC RBC Hgb Hct MCV MCHC RDW Plt Count Lymph % (Auto) Jay % (Auto) Jay # Baso # Seg Neutrophils % Seg Neutrophils # PT INR D-Dimer POC ABG pH POC ABG pCO2 29.2 L POC ABG pO2 Sodium Potassium Chloride Carbon Dioxide BUN Creatinine Glucose POC Glucose 133 H 116 H Lactic Acid Calcium Phosphorus Magnesium Direct Bilirubin AST ALT Alkaline Phosphatase Total Creatine Kinase C-Reactive Protein Total Protein Albumin TSH Vancomycin Trough Crossmatch 12/18/16 12/18/16 12/18/16 14:52 15:14 15:52 WBC RBC Hgb Hct MCV MCHC RDW Plt Count Lymph % (Auto) Jay % (Auto) Jay # Baso # Seg Neutrophils % Seg Neutrophils # PT INR D-Dimer POC ABG pH POC ABG pCO2 24.2 L POC ABG pO2 Sodium Potassium Chloride Carbon Dioxide BUN Creatinine Glucose POC Glucose 139 H 146 H Lactic Acid Calcium Phosphorus Magnesium Direct Bilirubin AST ALT Alkaline Phosphatase Total Creatine Kinase C-Reactive Protein Total Protein Albumin TSH Vancomycin Trough Crossmatch 12/18/16 12/18/16 12/18/16 16:55 16:55 17:18 WBC RBC Hgb 11.4 L Hct 33.9 L MCV MCHC RDW Plt Count Lymph % (Auto) Jay % (Auto) Jay # Baso # Seg Neutrophils % Seg Neutrophils # PT 18.8 H INR 1.58 H D-Dimer POC ABG pH POC ABG pCO2 POC ABG pO2 Sodium Potassium Chloride Carbon Dioxide BUN Creatinine Glucose POC Glucose 144 H Lactic Acid Calcium Phosphorus Magnesium Direct Bilirubin AST ALT Alkaline Phosphatase Total Creatine Kinase C-Reactive Protein Total Protein Albumin TSH Vancomycin Trough Crossmatch 12/18/16 12/18/16 12/18/16 18:12 18:21 20:17 WBC RBC Hgb Hct MCV MCHC RDW Plt Count Lymph % (Auto) Jay % (Auto) Jay # Baso # Seg Neutrophils % Seg Neutrophils # PT INR D-Dimer POC ABG pH POC ABG pCO2 POC ABG pO2 Sodium Potassium Chloride Carbon Dioxide BUN Creatinine Glucose POC Glucose 147 H 120 H Lactic Acid Calcium Phosphorus 5.4 H D Magnesium Direct Bilirubin AST ALT Alkaline Phosphatase Total Creatine Kinase C-Reactive Protein Total Protein Albumin TSH Vancomycin Trough Crossmatch 12/18/16 12/19/16 12/19/16 22:52 00:56 02:09 WBC RBC Hgb Hct MCV MCHC RDW Plt Count Lymph % (Auto) Jay % (Auto) Jay # Baso # Seg Neutrophils % Seg Neutrophils # PT INR D-Dimer POC ABG pH POC ABG pCO2 POC ABG pO2 Sodium Potassium Chloride Carbon Dioxide BUN Creatinine Glucose POC Glucose 124 H 168 H 140 H Lactic Acid Calcium Phosphorus Magnesium Direct Bilirubin AST ALT Alkaline Phosphatase Total Creatine Kinase C-Reactive Protein Total Protein Albumin TSH Vancomycin Trough Crossmatch 12/19/16 12/19/16 12/19/16 04:20 04:20 04:53 WBC 11.8 H RBC Hgb 11.7 L Hct 34.7 L MCV MCHC RDW Plt Count Lymph % (Auto) 11.3 L Jay % (Auto) Jay # Baso # Seg Neutrophils % 83.9 H Seg Neutrophils # 9.9 H PT INR D-Dimer POC ABG pH POC ABG pCO2 POC ABG pO2 Sodium Potassium Chloride Carbon Dioxide 20 L BUN 108 H Creatinine 4.9 H Glucose 131 H POC Glucose 112 H Lactic Acid Calcium 6.3 L Phosphorus Magnesium Direct Bilirubin AST 1058 H ALT 133 H Alkaline Phosphatase Total Creatine Kinase C-Reactive Protein Total Protein 6.1 L Albumin 2.3 L TSH Vancomycin Trough Crossmatch 12/19/16 12/19/16 12/19/16 05:42 06:30 07:37 WBC RBC Hgb Hct MCV MCHC RDW Plt Count Lymph % (Auto) Jay % (Auto) Jay # Baso # Seg Neutrophils % Seg Neutrophils # PT INR D-Dimer POC ABG pH 7.539 H POC ABG pCO2 26.0 L POC ABG pO2 Sodium Potassium Chloride Carbon Dioxide BUN Creatinine Glucose POC Glucose 119 H 126 H Lactic Acid Calcium Phosphorus Magnesium Direct Bilirubin AST ALT Alkaline Phosphatase Total Creatine Kinase C-Reactive Protein Total Protein Albumin TSH Vancomycin Trough Crossmatch 12/19/16 12/19/16 12/19/16 09:59 12:38 14:25 WBC RBC Hgb Hct MCV MCHC RDW Plt Count Lymph % (Auto) Jay % (Auto) Jay # Baso # Seg Neutrophils % Seg Neutrophils # PT INR D-Dimer POC ABG pH POC ABG pCO2 POC ABG pO2 Sodium Potassium Chloride Carbon Dioxide BUN Creatinine Glucose POC Glucose 118 H 139 H 143 H Lactic Acid Calcium Phosphorus Magnesium Direct Bilirubin AST ALT Alkaline Phosphatase Total Creatine Kinase C-Reactive Protein Total Protein Albumin TSH Vancomycin Trough Crossmatch 12/19/16 12/19/16 12/19/16 16:50 18:01 23:04 WBC RBC Hgb Hct MCV MCHC RDW Plt Count Lymph % (Auto) Jay % (Auto) Jay # Baso # Seg Neutrophils % Seg Neutrophils # PT INR D-Dimer POC ABG pH POC ABG pCO2 POC ABG pO2 Sodium Potassium Chloride Carbon Dioxide BUN Creatinine Glucose POC Glucose 253 H 259 H 200 H Lactic Acid Calcium Phosphorus Magnesium Direct Bilirubin AST ALT Alkaline Phosphatase Total Creatine Kinase C-Reactive Protein Total Protein Albumin TSH Vancomycin Trough Crossmatch 12/20/16 12/20/16 12/20/16 00:58 02:57 04:09 WBC RBC Hgb Hct MCV MCHC RDW Plt Count Lymph % (Auto) Jay % (Auto) Jay # Baso # Seg Neutrophils % Seg Neutrophils # PT INR D-Dimer POC ABG pH POC ABG pCO2 POC ABG pO2 Sodium Potassium Chloride Carbon Dioxide BUN Creatinine Glucose POC Glucose 210 H 162 H 109 H Lactic Acid Calcium Phosphorus Magnesium Direct Bilirubin AST ALT Alkaline Phosphatase Total Creatine Kinase C-Reactive Protein Total Protein Albumin TSH Vancomycin Trough Crossmatch 12/20/16 12/20/16 12/20/16 05:11 05:57 07:41 WBC RBC Hgb Hct MCV MCHC RDW Plt Count Lymph % (Auto) Jay % (Auto) Jay # Baso # Seg Neutrophils % Seg Neutrophils # PT INR D-Dimer POC ABG pH 7.560 H POC ABG pCO2 28.2 L POC ABG pO2 Sodium Potassium Chloride Carbon Dioxide BUN Creatinine Glucose POC Glucose 121 H 170 H Lactic Acid Calcium Phosphorus Magnesium Direct Bilirubin AST ALT Alkaline Phosphatase Total Creatine Kinase C-Reactive Protein Total Protein Albumin TSH Vancomycin Trough Crossmatch 12/20/16 12/20/16 12/20/16 08:30 08:30 10:06 WBC RBC 3.36 L Hgb 10.1 L Hct 29.5 L MCV MCHC RDW Plt Count 114 L Lymph % (Auto) Jay % (Auto) Jay # Baso # Seg Neutrophils % Seg Neutrophils # PT INR D-Dimer POC ABG pH POC ABG pCO2 POC ABG pO2 Sodium Potassium Chloride 95.1 L Carbon Dioxide BUN 78 H Creatinine 5.0 H Glucose 181 H POC Glucose 155 H Lactic Acid Calcium 6.2 L Phosphorus Magnesium Direct Bilirubin AST ALT Alkaline Phosphatase Total Creatine Kinase C-Reactive Protein Total Protein Albumin TSH Vancomycin Trough Crossmatch 12/20/16 12/20/16 12/20/16 11:55 14:44 16:24 WBC RBC Hgb Hct MCV MCHC RDW Plt Count Lymph % (Auto) Jay % (Auto) Jay # Baso # Seg Neutrophils % Seg Neutrophils # PT INR D-Dimer POC ABG pH POC ABG pCO2 POC ABG pO2 Sodium Potassium Chloride Carbon Dioxide BUN Creatinine Glucose POC Glucose 124 H 171 H 143 H Lactic Acid Calcium Phosphorus Magnesium Direct Bilirubin AST ALT Alkaline Phosphatase Total Creatine Kinase C-Reactive Protein Total Protein Albumin TSH Vancomycin Trough Crossmatch 12/20/16 12/20/16 12/20/16 18:14 20:25 22:29 WBC RBC Hgb Hct MCV MCHC RDW Plt Count Lymph % (Auto) Jay % (Auto) Jay # Baso # Seg Neutrophils % Seg Neutrophils # PT INR D-Dimer POC ABG pH POC ABG pCO2 POC ABG pO2 Sodium Potassium Chloride Carbon Dioxide BUN Creatinine Glucose POC Glucose 144 H 130 H 146 H Lactic Acid Calcium Phosphorus Magnesium Direct Bilirubin AST ALT Alkaline Phosphatase Total Creatine Kinase C-Reactive Protein Total Protein Albumin TSH Vancomycin Trough Crossmatch 12/21/16 12/21/16 12/21/16 00:30 03:06 04:31 WBC RBC Hgb Hct MCV MCHC RDW Plt Count Lymph % (Auto) Jay % (Auto) Jay # Baso # Seg Neutrophils % Seg Neutrophils # PT INR D-Dimer POC ABG pH POC ABG pCO2 31.3 L POC ABG pO2 Sodium Potassium Chloride Carbon Dioxide BUN Creatinine Glucose POC Glucose 185 H 115 H Lactic Acid Calcium Phosphorus Magnesium Direct Bilirubin AST ALT Alkaline Phosphatase Total Creatine Kinase C-Reactive Protein Total Protein Albumin TSH Vancomycin Trough Crossmatch 12/21/16 12/21/16 12/21/16 04:45 06:38 06:41 WBC RBC Hgb Hct MCV MCHC RDW Plt Count Lymph % (Auto) Jay % (Auto) Jay # Baso # Seg Neutrophils % Seg Neutrophils # PT INR D-Dimer POC ABG pH POC ABG pCO2 POC ABG pO2 Sodium Potassium Chloride Carbon Dioxide BUN Creatinine Glucose POC Glucose 145 H 165 H 145 H Lactic Acid Calcium Phosphorus Magnesium Direct Bilirubin AST ALT Alkaline Phosphatase Total Creatine Kinase C-Reactive Protein Total Protein Albumin TSH Vancomycin Trough Crossmatch 12/21/16 12/21/16 12/21/16 09:35 09:35 10:14 WBC 11.8 H RBC 3.52 L Hgb 10.8 L Hct 31.3 L MCV MCHC RDW 13.0 L Plt Count 130 L Lymph % (Auto) Jay % (Auto) Jay # Baso # Seg Neutrophils % Seg Neutrophils # PT INR D-Dimer POC ABG pH POC ABG pCO2 POC ABG pO2 Sodium Potassium Chloride Carbon Dioxide 21 L BUN 98 H Creatinine 6.2 H Glucose 133 H POC Glucose 178 H Lactic Acid Calcium 6.7 L Phosphorus Magnesium Direct Bilirubin AST ALT Alkaline Phosphatase Total Creatine Kinase C-Reactive Protein Total Protein Albumin TSH Vancomycin Trough Crossmatch 12/21/16 12/21/16 12/21/16 12:22 14:28 15:59 WBC RBC Hgb Hct MCV MCHC RDW Plt Count Lymph % (Auto) Jay % (Auto) Jay # Baso # Seg Neutrophils % Seg Neutrophils # PT INR D-Dimer POC ABG pH POC ABG pCO2 POC ABG pO2 Sodium Potassium Chloride Carbon Dioxide BUN Creatinine Glucose POC Glucose 191 H 139 H 182 H Lactic Acid Calcium Phosphorus Magnesium Direct Bilirubin AST ALT Alkaline Phosphatase Total Creatine Kinase C-Reactive Protein Total Protein Albumin TSH Vancomycin Trough Crossmatch 12/21/16 12/21/16 12/21/16 18:23 20:19 22:02 WBC RBC Hgb Hct MCV MCHC RDW Plt Count Lymph % (Auto) Jay % (Auto) Jay # Baso # Seg Neutrophils % Seg Neutrophils # PT INR D-Dimer POC ABG pH POC ABG pCO2 POC ABG pO2 Sodium Potassium Chloride Carbon Dioxide BUN Creatinine Glucose POC Glucose 167 H 134 H 163 H Lactic Acid Calcium Phosphorus Magnesium Direct Bilirubin AST ALT Alkaline Phosphatase Total Creatine Kinase C-Reactive Protein Total Protein Albumin TSH Vancomycin Trough Crossmatch 12/22/16 12/22/16 12/22/16 00:09 01:55 04:00 WBC 12.0 H RBC 2.93 L Hgb 8.9 L Hct 26.1 L MCV MCHC RDW 13.0 L Plt Count 103 L Lymph % (Auto) Jay % (Auto) Jay # Baso # Seg Neutrophils % Seg Neutrophils # PT INR D-Dimer POC ABG pH POC ABG pCO2 POC ABG pO2 Sodium Potassium Chloride Carbon Dioxide BUN Creatinine Glucose POC Glucose 154 H 111 H Lactic Acid Calcium Phosphorus Magnesium Direct Bilirubin AST ALT Alkaline Phosphatase Total Creatine Kinase C-Reactive Protein Total Protein Albumin TSH Vancomycin Trough Crossmatch 12/22/16 12/22/16 12/22/16 04:00 04:09 05:22 WBC RBC Hgb Hct MCV MCHC RDW Plt Count Lymph % (Auto) Jay % (Auto) Jay # Baso # Seg Neutrophils % Seg Neutrophils # PT INR D-Dimer POC ABG pH POC ABG pCO2 34.7 L POC ABG pO2 Sodium Potassium Chloride 97.0 L Carbon Dioxide 20 L BUN 119 H Creatinine 6.9 H Glucose 143 H POC Glucose 151 H Lactic Acid Calcium 6.3 L Phosphorus Magnesium Direct Bilirubin AST ALT Alkaline Phosphatase Total Creatine Kinase C-Reactive Protein Total Protein Albumin TSH Vancomycin Trough Crossmatch 12/22/16 12/22/16 12/22/16 08:09 09:34 12:26 WBC RBC Hgb 8.9 L Hct 26.5 L MCV MCHC RDW Plt Count 96 L Lymph % (Auto) Jay % (Auto) Jay # Baso # Seg Neutrophils % Seg Neutrophils # PT INR D-Dimer POC ABG pH POC ABG pCO2 POC ABG pO2 Sodium Potassium Chloride Carbon Dioxide BUN Creatinine Glucose POC Glucose 113 H 190 H Lactic Acid Calcium Phosphorus Magnesium Direct Bilirubin AST ALT Alkaline Phosphatase Total Creatine Kinase C-Reactive Protein Total Protein Albumin TSH Vancomycin Trough Crossmatch 12/22/16 12/22/16 12/22/16 14:05 16:25 20:26 WBC RBC Hgb Hct MCV MCHC RDW Plt Count Lymph % (Auto) Jay % (Auto) Jay # Baso # Seg Neutrophils % Seg Neutrophils # PT INR D-Dimer POC ABG pH POC ABG pCO2 POC ABG pO2 Sodium Potassium Chloride Carbon Dioxide BUN Creatinine Glucose POC Glucose 160 H 106 H 106 H Lactic Acid Calcium Phosphorus Magnesium Direct Bilirubin AST ALT Alkaline Phosphatase Total Creatine Kinase C-Reactive Protein Total Protein Albumin TSH Vancomycin Trough Crossmatch 12/22/16 12/23/16 12/23/16 22:22 00:04 04:12 WBC RBC Hgb Hct MCV MCHC RDW Plt Count Lymph % (Auto) Jay % (Auto) Jay # Baso # Seg Neutrophils % Seg Neutrophils # PT INR D-Dimer POC ABG pH POC ABG pCO2 POC ABG pO2 Sodium Potassium Chloride Carbon Dioxide BUN Creatinine Glucose POC Glucose 154 H 171 H 136 H Lactic Acid Calcium Phosphorus Magnesium Direct Bilirubin AST ALT Alkaline Phosphatase Total Creatine Kinase C-Reactive Protein Total Protein Albumin TSH Vancomycin Trough Crossmatch 12/23/16 12/23/16 12/23/16 04:48 05:00 05:00 WBC RBC 2.67 L Hgb 8.1 L Hct 23.7 L MCV MCHC RDW 13.0 L Plt Count 89 L Lymph % (Auto) Jay % (Auto) Jay # Baso # Seg Neutrophils % Seg Neutrophils # PT INR D-Dimer POC ABG pH POC ABG pCO2 POC ABG pO2 123 H Sodium 135 L Potassium Chloride 96.1 L Carbon Dioxide BUN 83 H Creatinine 5.3 H Glucose 126 H POC Glucose Lactic Acid Calcium 7.0 L Phosphorus Magnesium Direct Bilirubin AST ALT Alkaline Phosphatase Total Creatine Kinase C-Reactive Protein Total Protein Albumin TSH Vancomycin Trough Crossmatch 12/23/16 12/23/16 12/23/16 07:30 07:44 11:31 WBC RBC Hgb Hct MCV MCHC RDW Plt Count Lymph % (Auto) Jay % (Auto) Jay # Baso # Seg Neutrophils % Seg Neutrophils # PT INR D-Dimer POC ABG pH POC ABG pCO2 POC ABG pO2 Sodium Potassium Chloride Carbon Dioxide BUN Creatinine Glucose POC Glucose 122 H 142 H Lactic Acid Calcium Phosphorus Magnesium Direct Bilirubin AST ALT Alkaline Phosphatase Total Creatine Kinase C-Reactive Protein Total Protein Albumin TSH Vancomycin Trough Crossmatch See Detail 12/23/16 12/23/16 12/23/16 12:12 13:44 16:07 WBC RBC Hgb Hct MCV MCHC RDW Plt Count Lymph % (Auto) Jay % (Auto) Jay # Baso # Seg Neutrophils % Seg Neutrophils # PT INR D-Dimer POC ABG pH POC ABG pCO2 POC ABG pO2 Sodium Potassium Chloride Carbon Dioxide BUN Creatinine Glucose POC Glucose 117 H 127 H 163 H Lactic Acid Calcium Phosphorus Magnesium Direct Bilirubin AST ALT Alkaline Phosphatase Total Creatine Kinase C-Reactive Protein Total Protein Albumin TSH Vancomycin Trough Crossmatch 12/23/16 12/23/16 12/24/16 17:51 23:53 04:50 WBC RBC Hgb 9.3 L Hct 26.9 L MCV MCHC RDW Plt Count 128 L Lymph % (Auto) Jay % (Auto) Jay # Baso # Seg Neutrophils % Seg Neutrophils # PT INR D-Dimer POC ABG pH POC ABG pCO2 POC ABG pO2 Sodium Potassium Chloride Carbon Dioxide BUN Creatinine Glucose POC Glucose 219 H 144 H Lactic Acid Calcium Phosphorus Magnesium Direct Bilirubin AST ALT Alkaline Phosphatase Total Creatine Kinase C-Reactive Protein Total Protein Albumin TSH Vancomycin Trough Crossmatch 12/24/16 12/24/16 12/24/16 04:50 05:19 11:53 WBC RBC Hgb Hct MCV MCHC RDW Plt Count Lymph % (Auto) Jay % (Auto) Jay # Baso # Seg Neutrophils % Seg Neutrophils # PT INR D-Dimer POC ABG pH POC ABG pCO2 POC ABG pO2 Sodium 134 L Potassium Chloride 94.6 L Carbon Dioxide BUN 61 H Creatinine 4.4 H Glucose 144 H POC Glucose 139 H 129 H Lactic Acid Calcium 7.4 L Phosphorus Magnesium Direct Bilirubin AST ALT Alkaline Phosphatase Total Creatine Kinase C-Reactive Protein Total Protein Albumin TSH Vancomycin Trough Crossmatch 12/24/16 12/25/16 12/25/16 16:59 00:09 05:15 WBC RBC Hgb Hct MCV MCHC RDW Plt Count Lymph % (Auto) Jay % (Auto) Jay # Baso # Seg Neutrophils % Seg Neutrophils # PT INR D-Dimer POC ABG pH POC ABG pCO2 POC ABG pO2 Sodium 147 H D Potassium Chloride 107.8 H Carbon Dioxide BUN 45 H Creatinine 3.6 H Glucose 150 H POC Glucose 175 H 160 H Lactic Acid Calcium 7.5 L Phosphorus Magnesium Direct Bilirubin AST ALT Alkaline Phosphatase Total Creatine Kinase C-Reactive Protein Total Protein Albumin TSH Vancomycin Trough Crossmatch 12/26/16 12/26/16 06:00 06:00 WBC RBC Hgb 8.0 L Hct 24.1 L MCV MCHC RDW Plt Count Lymph % (Auto) Jay % (Auto) Jay # Baso # Seg Neutrophils % Seg Neutrophils # PT INR D-Dimer POC ABG pH POC ABG pCO2 POC ABG pO2 Sodium Potassium Chloride Carbon Dioxide BUN 70 H Creatinine 5.4 H Glucose 140 H POC Glucose Lactic Acid Calcium 7.3 L Phosphorus Magnesium Direct Bilirubin AST ALT Alkaline Phosphatase Total Creatine Kinase C-Reactive Protein Total Protein Albumin TSH Vancomycin Trough Crossmatch Allied health notes reviewed: RT
[2016-12-26] MEDS: HEPARIN IV PRN (14:11)
--- NOTE | 2016-12-26 15:08 | Progress Note ---
Assessment and Plan Status post successful removal of subclavian arterial line with angioplasty and Angio-Seal device. Procedure was without complication. Patient tolerated the procedure well. Hands and feet both warm and well-perfused. Unfortunately, the tip of the catheter was in the right vertebral artery. Recommend neurology consult. This was discussed with the patient's quality technician. No further need for heparin at this time. We'll place compressive dressing on right groin and removal on Thursday. This is done due the patient's critically ill nature to prevent delayed bleed. Subjective Date of service: 12/26/16 Principal diagnosis: Acute hypoxemic respiratory failure, shock Interval history: Intubated. Following simple commands. Off pressors. No bleeding at groin or subclavian dressing site. Objective - Constitutional Vitals: Vital Signs - 12hr 12/26/16 12/26/16 12/26/16 03:15 03:30 03:45 Temperature Pulse Rate 89 89 89 Pulse Rate [ From Monitor] Respiratory 17 17 18 Rate Blood Pressure 88/47 91/48 86/46 O2 Sat by Pulse 98 98 98 Oximetry 12/26/16 12/26/16 12/26/16 04:00 04:15 04:30 Temperature 99.4 F Pulse Rate 90 95 H 91 H Pulse Rate [ 92 H From Monitor] Respiratory 14 12 16 Rate Blood Pressure 100/55 104/56 103/57 O2 Sat by Pulse 98 98 Oximetry 12/26/16 12/26/16 12/26/16 04:45 05:00 05:15 Temperature Pulse Rate 94 H 96 H 97 H Pulse Rate [ From Monitor] Respiratory 15 13 17 Rate Blood Pressure 107/58 106/58 115/57 O2 Sat by Pulse 96 Oximetry 12/26/16 12/26/16 12/26/16 05:30 05:45 06:00 Temperature Pulse Rate 101 H 101 H 103 H Pulse Rate [ From Monitor] Respiratory 14 15 16 Rate Blood Pressure 123/61 123/60 124/65 O2 Sat by Pulse 96 96 96 Oximetry 12/26/16 12/26/16 12/26/16 06:15 06:30 06:45 Temperature Pulse Rate 107 H 108 H 105 H Pulse Rate [ From Monitor] Respiratory 14 15 16 Rate Blood Pressure 128/66 129/70 130/68 O2 Sat by Pulse 97 97 97 Oximetry 12/26/16 12/26/16 12/26/16 07:00 07:15 07:30 Temperature Pulse Rate 106 H 108 H 103 H Pulse Rate [ From Monitor] Respiratory 16 15 14 Rate Blood Pressure 126/67 136/66 119/66 O2 Sat by Pulse 97 97 96 Oximetry 12/26/16 12/26/16 12/26/16 07:46 08:00 08:16 Temperature 102.3 F H Pulse Rate 105 H 108 H 106 H Pulse Rate [ 106 H From Monitor] Respiratory 9 L 16 9 L Rate Blood Pressure 119/66 131/65 131/65 O2 Sat by Pulse 97 98 98 Oximetry 12/26/16 12/26/16 12/26/16 08:24 08:30 08:46 Temperature Pulse Rate 107 H 108 H 106 H Pulse Rate [ From Monitor] Respiratory 9 L 13 Rate Blood Pressure 131/65 129/64 129/64 O2 Sat by Pulse 98 97 96 Oximetry 12/26/16 12/26/16 12/26/16 09:00 09:16 09:30 Temperature Pulse Rate 109 H 109 H 108 H Pulse Rate [ From Monitor] Respiratory 12 11 L 11 L Rate Blood Pressure 125/67 125/67 127/69 O2 Sat by Pulse 96 99 99 Oximetry 12/26/16 12/26/16 12/26/16 09:46 10:00 10:15 Temperature 102.3 F H Pulse Rate 104 H 110 H 102 H Pulse Rate [ From Monitor] Respiratory 9 L 12 14 Rate Blood Pressure 127/69 123/63 123/62 O2 Sat by Pulse 99 98 Oximetry 12/26/16 12/26/16 12/26/16 10:16 10:30 10:45 Temperature Pulse Rate 106 H 108 H 101 H Pulse Rate [ From Monitor] Respiratory 10 L 13 15 Rate Blood Pressure 123/63 123/62 111/56 O2 Sat by Pulse 99 98 99 Oximetry 12/26/16 12/26/16 12/26/16 11:00 11:15 11:30 Temperature Pulse Rate 102 H 106 H 101 H Pulse Rate [ From Monitor] Respiratory 12 16 13 Rate Blood Pressure 122/64 123/67 116/66 O2 Sat by Pulse 98 98 98 Oximetry 12/26/16 12/26/16 12/26/16 11:45 12:00 12:15 Temperature 99.7 F H Pulse Rate 107 H 98 H 101 H Pulse Rate [ 102 H From Monitor] Respiratory 16 18 15 Rate Blood Pressure 128/71 113/64 128/72 O2 Sat by Pulse 98 99 98 Oximetry 12/26/16 12/26/16 12/26/16 12:28 12:30 12:32 Temperature Pulse Rate 101 H 104 H 104 H Pulse Rate [ From Monitor] Respiratory 15 Rate Blood Pressure 128/72 128/74 128/74 O2 Sat by Pulse 98 98 Oximetry 12/26/16 12/26/16 12/26/16 12:45 13:00 13:15 Temperature Pulse Rate 104 H 111 H 115 H Pulse Rate [ From Monitor] Respiratory 17 18 16 Rate Blood Pressure 136/74 135/73 138/83 O2 Sat by Pulse 98 98 98 Oximetry 12/26/16 12/26/16 12/26/16 13:30 13:45 14:00 Temperature Pulse Rate 106 H 108 H 104 H Pulse Rate [ From Monitor] Respiratory 16 13 18 Rate Blood Pressure 125/73 133/67 133/75 O2 Sat by Pulse 98 100 99 Oximetry 12/26/16 12/26/16 12/26/16 14:08 14:15 14:30 Temperature 99.7 F H Pulse Rate 109 H 101 H 101 H Pulse Rate [ From Monitor] Respiratory 15 14 20 Rate Blood Pressure 133/75 130/61 112/62 O2 Sat by Pulse 98 97 Oximetry General appearance: Present: other (intubated) - EENT ENT: other (intubated) - Respiratory Respiratory effort: normal Extremities: pulses intact (right DP palpable ; dressing c/d/i at right groin and right chest ; no pseudoaneurysm palpable at groin or chest), normal temperature - Psychiatric Psychiatric: other (intubated) - Labs CBC & Chem 7: 12/26/16 06:00 12/26/16 06:00 Labs: Abnormal lab results 12/26/16 12/26/16 Range/Units 06:00 06:00 Hgb 8.0 L (11.8-15.2) gm/dl Hct 24.1 L (35.5-45.6) % BUN 70 H (9-20) mg/dL Creatinine 5.4 H (0.8-1.5) mg/dL Glucose 140 H (75-100) mg/dL Calcium 7.3 L (8.4-10.2) mg/dL
--- NOTE | 2016-12-26 15:41 | Progress Note ---
Assessment and Plan - Patient Problems (1) Acute kidney failure with tubular necrosis Current Visit: Yes Status: Acute Plan to address problem: Kidney indices improved on dialysis. Electrolytes within normal limits. Hemodialysis this AM, will continue intermittent HD on // schedule for now. Will assess volume status closely and consider additional isolated UF as needed. (2) Acute hypoxemic respiratory failure Current Visit: Yes Status: Acute Plan to address problem: Continue ventilator management by pulmonary. (3) Septic shock Current Visit: Yes Status: Acute Plan to address problem: Patient off of Levophed. Continue antibiotics and supportive care . (4) Systolic CHF, acute on chronic Current Visit: No Status: Acute Plan to address problem: EF 35%. Volume status now improving. Reevaluate need for dialysis for fluid removal on a daily basis. (5) Anemia in chronic illness Current Visit: Yes Status: Acute Plan to address problem: Hb stable at 8. continue EPO w/ HD (6) Diabetes Current Visit: No Status: Chronic Qualifiers: Diabetes mellitus type: D Diabetes mellitus complication status: D Diabetes mellitus complication detail: D Diabetic retinopathy severity: D Proliferative retinopathy type: P Diabetes mellitus macular edema: D Diabetes mellitus [employer] insulin use: D Laterality: L Chronic kidney disease stage: C Plan to address problem: glucose management by primary attending Subjective Date of service: 12/26/16 Principal diagnosis: Acute hypoxemic respiratory failure, shock Interval history: pt remains intubated, but awake, following commands. off vasopressor support Objective - Vital Signs Vital signs: Vital Signs - 12hr 12/26/16 12/26/16 12/26/16 03:45 04:00 04:15 Temperature 99.4 F Pulse Rate 89 90 95 H Pulse Rate [ 92 H From Monitor] Respiratory 18 14 12 Rate Blood Pressure 86/46 100/55 104/56 O2 Sat by Pulse 98 98 98 Oximetry 12/26/16 12/26/16 12/26/16 04:30 04:45 05:00 Temperature Pulse Rate 91 H 94 H 96 H Pulse Rate [ From Monitor] Respiratory 16 15 13 Rate Blood Pressure 103/57 107/58 106/58 O2 Sat by Pulse Oximetry 12/26/16 12/26/16 12/26/16 05:15 05:30 05:45 Temperature Pulse Rate 97 H 101 H 101 H Pulse Rate [ From Monitor] Respiratory 17 14 15 Rate Blood Pressure 115/57 123/61 123/60 O2 Sat by Pulse 96 96 96 Oximetry 12/26/16 12/26/16 12/26/16 06:00 06:15 06:30 Temperature Pulse Rate 103 H 107 H 108 H Pulse Rate [ From Monitor] Respiratory 16 14 15 Rate Blood Pressure 124/65 128/66 129/70 O2 Sat by Pulse 96 97 97 Oximetry 12/26/16 12/26/16 12/26/16 06:45 07:00 07:15 Temperature Pulse Rate 105 H 106 H 108 H Pulse Rate [ From Monitor] Respiratory 16 16 15 Rate Blood Pressure 130/68 126/67 136/66 O2 Sat by Pulse 97 97 97 Oximetry 12/26/16 12/26/16 12/26/16 07:30 07:46 08:00 Temperature 102.3 F H Pulse Rate 103 H 105 H 108 H Pulse Rate [ 106 H From Monitor] Respiratory 14 9 L 16 Rate Blood Pressure 119/66 119/66 131/65 O2 Sat by Pulse 96 97 98 Oximetry 12/26/16 12/26/16 12/26/16 08:16 08:24 08:30 Temperature Pulse Rate 106 H 107 H 108 H Pulse Rate [ From Monitor] Respiratory 9 L 9 L Rate Blood Pressure 131/65 131/65 129/64 O2 Sat by Pulse 98 98 97 Oximetry 12/26/16 12/26/16 12/26/16 08:46 09:00 09:16 Temperature Pulse Rate 106 H 109 H 109 H Pulse Rate [ From Monitor] Respiratory 13 12 11 L Rate Blood Pressure 129/64 125/67 125/67 O2 Sat by Pulse 96 96 99 Oximetry 12/26/16 12/26/16 12/26/16 09:30 09:46 10:00 Temperature Pulse Rate 108 H 104 H 110 H Pulse Rate [ From Monitor] Respiratory 11 L 9 L 12 Rate Blood Pressure 127/69 127/69 123/63 O2 Sat by Pulse 99 99 98 Oximetry 12/26/16 12/26/16 12/26/16 10:15 10:16 10:30 Temperature 102.3 F H Pulse Rate 102 H 106 H 108 H Pulse Rate [ From Monitor] Respiratory 14 10 L 13 Rate Blood Pressure 123/62 123/63 123/62 O2 Sat by Pulse 99 98 Oximetry 12/26/16 12/26/16 12/26/16 10:45 11:00 11:15 Temperature Pulse Rate 101 H 102 H 106 H Pulse Rate [ From Monitor] Respiratory 15 12 16 Rate Blood Pressure 111/56 122/64 123/67 O2 Sat by Pulse 99 98 98 Oximetry 12/26/16 12/26/16 12/26/16 11:30 11:45 12:00 Temperature 99.7 F H Pulse Rate 101 H 107 H 98 H Pulse Rate [ 102 H From Monitor] Respiratory 13 16 18 Rate Blood Pressure 116/66 128/71 113/64 O2 Sat by Pulse 98 98 99 Oximetry 12/26/16 12/26/16 12/26/16 12:15 12:28 12:30 Temperature Pulse Rate 101 H 101 H 104 H Pulse Rate [ From Monitor] Respiratory 15 15 Rate Blood Pressure 128/72 128/72 128/74 O2 Sat by Pulse 98 98 98 Oximetry 12/26/16 12/26/16 12/26/16 12:32 12:45 13:00 Temperature Pulse Rate 104 H 104 H 111 H Pulse Rate [ From Monitor] Respiratory 17 18 Rate Blood Pressure 128/74 136/74 135/73 O2 Sat by Pulse 98 98 Oximetry 12/26/16 12/26/16 12/26/16 13:15 13:30 13:45 Temperature Pulse Rate 115 H 106 H 108 H Pulse Rate [ From Monitor] Respiratory 16 16 13 Rate Blood Pressure 138/83 125/73 133/67 O2 Sat by Pulse 98 98 100 Oximetry 12/26/16 12/26/16 12/26/16 14:00 14:08 14:15 Temperature 99.7 F H Pulse Rate 104 H 109 H 101 H Pulse Rate [ From Monitor] Respiratory 18 15 14 Rate Blood Pressure 133/75 133/75 130/61 O2 Sat by Pulse 99 98 Oximetry 12/26/16 14:30 Temperature Pulse Rate 101 H Pulse Rate [ From Monitor] Respiratory 20 Rate Blood Pressure 112/62 O2 Sat by Pulse 97 Oximetry - General Appearance General appearance: chronically ill, intubated EENT: ATNC, PERRL, mucous membranes moist Neck: no JVD Respiratory: Present: Ronchi, Decreased Breath Sounds Cardiology: regular, S1S2 Gastrointestinal: normal, normoactive bowel sounds Integumentary: no rash, other (2+ edema b/l LE ) Neurologic: no focal deficit, CN 3-12 intact Psychiatric: mood/affect appropriate, cooperative - Lab 12/26/16 06:00 12/26/16 06:00 Most recent lab results Calcium 7.3 mg/dL (8.4-10.2) L 12/26/16 06:00 Phosphorus 5.4 mg/dL (2.5-4.5) H D 12/18/16 18:21 Magnesium 2.5 mg/dL (1.7-2.3) H 12/17/16 09:10
--- NOTE | 2016-12-26 19:07 | Progress Note ---
Subjective Date of service: 12/26/16 Principal diagnosis: Acute hypoxemic respiratory failure, shock Interval history: Fever. PHYSICAL EXAM Vital signs - temp 102.2 chest - mild b/l rhonchi cvs - s1s2 abd - bs+ LABS See lab section ASSESSMENT 1. Pneumonia 2. Acute respiratory failure 3. Encephalopathy 4. CHF RECOMMENDATION 1. cbc/bmp in am 2. CONTINUE ORAL BACTRIM. 3. ct chest/abd/pelvis. Persistent fever. Objective - Constitutional Vitals: Vital Signs Temp Pulse Resp BP Pulse Ox 98.3 F 85 16 119/56 97 12/26/16 16:00 12/26/16 19:00 12/26/16 19:00 12/26/16 19:00 12/26/16 19:00 Temperature -Last 24 Hours Temperature 98.3 F Temperature 99.7 F Temperature 99.7 F Temperature 102.3 F Temperature 102.3 F Temperature 99.4 F Temperature 101.6 F Temperature 99.7 F - Labs CBC & Chem 7: 12/26/16 06:00 12/26/16 06:00 Labs: Abnormal lab results 12/26/16 12/26/16 Range/Units 06:00 06:00 Hgb 8.0 L (11.8-15.2) gm/dl Hct 24.1 L (35.5-45.6) % BUN 70 H (9-20) mg/dL Creatinine 5.4 H (0.8-1.5) mg/dL Glucose 140 H (75-100) mg/dL Calcium 7.3 L (8.4-10.2) mg/dL
[2016-12-27] MEDS: fentaNYL DRIP Premix 2,000 MCG/100 ML BAG IV SCH ×2 (00:46→22:28)
[2016-12-27] MEDS: DUONEB 0.5 MG-3 MG/3 ML SOLN IH SCH ×4 (02:25→21:30)
[2016-12-27] MEDS: BACTRIM DS PO SCH ×3 (03:12→21:48)
[2016-12-27] MEDS: ZOCOR PO SCH ×2 (03:12→21:48)
[2016-12-27] MEDS: REGLAN IV SCH ×2 (03:12→10:36)
[2016-12-27] MEDS: HEPARIN SUB-Q SCH ×4 (03:13→21:43)
[2016-12-27 05:59] LABS: Hemoglobin 8.2 gm/dl (11.8-15.2); Mean Corpuscular HGB Conc 34 % (32-34); Mean Corpuscular Hemoglobin 30 pg (28-32); Mean Corpuscular Volume 88 fl (84-94); Platelet Count 126 K/mm3 (140-440); Red Blood Count 2.73 M/mm3 (3.65-5.03); Red Cell Distribution Width 12.9 % (13.2-15.2); White Blood Count 7.4 K/mm3 (4.5-11.0)
[2016-12-27 06:05] LABS: BUN/Creatinine Ratio 13.33; Calcium 7.5 mg/dL (8.4-10.2); Chloride 95.4 mmol/L (98-107); Potassium 3.6 mmol/L (3.6-5.0)
--- NOTE | 2016-12-27 08:38 | Progress Note ---
Assessment and Plan - Patient Problems (1) Acute kidney failure with tubular necrosis Current Visit: Yes Status: Acute Plan to address problem: Kidney indices improved on dialysis. Electrolytes within normal limits. however patient remains oliguric, will continue intermittent HD on M/W/F schedule until significant renal recovery is seen. Will assess volume status closely and consider additional isolated UF as needed. (2) Acute hypoxemic respiratory failure Current Visit: Yes Status: Acute Plan to address problem: Continue ventilator management/weaning as per pulmonary. (3) Septic shock Current Visit: Yes Status: Acute Plan to address problem: Patient off of Levophed. Continue antibiotics and supportive care . (4) Systolic CHF, acute on chronic Current Visit: No Status: Acute Plan to address problem: EF 35%. Volume status now improving. Reevaluate need for dialysis for fluid removal on a daily basis. (5) Anemia in chronic illness Current Visit: Yes Status: Acute Plan to address problem: Hb stable at 8. continue EPO w/ HD (6) Diabetes Current Visit: No Status: Chronic Qualifiers: Diabetes mellitus type: D Diabetes mellitus complication status: D Diabetes mellitus complication detail: D Diabetic retinopathy severity: D Proliferative retinopathy type: P Diabetes mellitus macular edema: D Diabetes mellitus [facility] insulin use: D Laterality: L Chronic kidney disease stage: C Plan to address problem: glucose management by primary attending Subjective Date of service: 12/27/16 Principal diagnosis: Acute hypoxemic respiratory failure, shock Interval history: patient remains on vent, however awake, alert, following commands, communicating with nodding. Objective - Vital Signs Vital signs: Vital Signs - 12hr 12/26/16 12/26/16 12/26/16 20:46 21:00 21:16 Temperature Pulse Rate 99 H 93 H 93 H Pulse Rate [ Bilateral Throughout] Respiratory 17 16 16 Rate Respiratory Rate [Bilateral Throughout] Blood Pressure 111/60 110/51 110/51 O2 Sat by Pulse 99 98 99 Oximetry 12/26/16 12/26/16 12/26/16 21:30 21:46 22:00 Temperature Pulse Rate 89 88 94 H Pulse Rate [ Bilateral Throughout] Respiratory 13 16 18 Rate Respiratory Rate [Bilateral Throughout] Blood Pressure 105/49 105/49 114/66 O2 Sat by Pulse 99 99 99 Oximetry 12/26/16 12/26/16 12/26/16 22:16 22:30 22:46 Temperature Pulse Rate 86 92 H 86 Pulse Rate [ Bilateral Throughout] Respiratory 16 18 15 Rate Respiratory Rate [Bilateral Throughout] Blood Pressure 114/66 106/67 106/67 O2 Sat by Pulse 98 97 99 Oximetry 12/26/16 12/26/16 12/26/16 23:00 23:16 23:30 Temperature Pulse Rate 82 91 H 90 Pulse Rate [ Bilateral Throughout] Respiratory 15 15 16 Rate Respiratory Rate [Bilateral Throughout] Blood Pressure 116/62 116/62 116/66 O2 Sat by Pulse 99 99 97 Oximetry 12/26/16 12/27/16 12/27/16 23:46 00:00 00:16 Temperature Pulse Rate 94 H 99 H 93 H Pulse Rate [ Bilateral Throughout] Respiratory 18 14 17 Rate Respiratory Rate [Bilateral Throughout] Blood Pressure 116/66 126/65 126/65 O2 Sat by Pulse 99 99 98 Oximetry 12/27/16 12/27/16 12/27/16 00:30 00:46 00:51 Temperature 96.6 F L Pulse Rate 87 93 H Pulse Rate [ Bilateral Throughout] Respiratory 15 11 L Rate Respiratory Rate [Bilateral Throughout] Blood Pressure 116/65 116/65 O2 Sat by Pulse 99 99 Oximetry 12/27/16 12/27/16 12/27/16 01:00 01:16 01:30 Temperature Pulse Rate 92 H 87 87 Pulse Rate [ Bilateral Throughout] Respiratory 15 16 18 Rate Respiratory Rate [Bilateral Throughout] Blood Pressure 122/68 122/68 121/60 O2 Sat by Pulse 99 98 Oximetry 12/27/16 12/27/16 12/27/16 01:46 02:00 02:16 Temperature Pulse Rate 95 H 94 H 99 H Pulse Rate [ Bilateral Throughout] Respiratory 17 15 9 L Rate Respiratory Rate [Bilateral Throughout] Blood Pressure 121/60 129/69 129/69 O2 Sat by Pulse 100 98 100 Oximetry 12/27/16 12/27/16 12/27/16 02:22 02:30 02:35 Temperature Pulse Rate 103 H Pulse Rate [ 97 H 101 H Bilateral Throughout] Respiratory 16 Rate Respiratory 18 20 Rate [Bilateral Throughout] Blood Pressure 130/69 O2 Sat by Pulse 97 Oximetry 12/27/16 12/27/16 12/27/16 02:46 03:00 03:16 Temperature Pulse Rate 106 H 105 H 99 H Pulse Rate [ Bilateral Throughout] Respiratory 19 14 17 Rate Respiratory Rate [Bilateral Throughout] Blood Pressure 130/69 136/76 136/76 O2 Sat by Pulse 99 98 98 Oximetry 12/27/16 12/27/16 12/27/16 03:23 03:30 03:46 Temperature Pulse Rate 101 H 93 H 95 H Pulse Rate [ Bilateral Throughout] Respiratory 19 Rate Respiratory Rate [Bilateral Throughout] Blood Pressure 120/68 136/76 136/76 O2 Sat by Pulse 97 98 99 Oximetry 12/27/16 12/27/16 12/27/16 03:50 04:00 04:16 Temperature 97.6 F Pulse Rate 95 H 91 H 92 H Pulse Rate [ Bilateral Throughout] Respiratory 19 16 Rate Respiratory Rate [Bilateral Throughout] Blood Pressure 115/65 115/65 O2 Sat by Pulse 99 97 97 Oximetry 12/27/16 12/27/16 12/27/16 04:30 04:46 05:00 Temperature Pulse Rate 91 H 86 96 H Pulse Rate [ Bilateral Throughout] Respiratory 18 17 17 Rate Respiratory Rate [Bilateral Throughout] Blood Pressure 101/56 115/65 120/67 O2 Sat by Pulse 98 99 98 Oximetry 12/27/16 12/27/16 12/27/16 05:16 05:30 05:46 Temperature Pulse Rate 93 H 93 H 93 H Pulse Rate [ Bilateral Throughout] Respiratory 16 18 17 Rate Respiratory Rate [Bilateral Throughout] Blood Pressure 120/67 126/69 126/69 O2 Sat by Pulse 99 98 99 Oximetry 12/27/16 12/27/16 12/27/16 06:00 06:10 06:16 Temperature Pulse Rate 92 H 94 H 94 H Pulse Rate [ Bilateral Throughout] Respiratory 18 21 Rate Respiratory Rate [Bilateral Throughout] Blood Pressure 121/68 121/68 O2 Sat by Pulse 99 99 99 Oximetry 12/27/16 12/27/16 12/27/16 06:30 06:46 08:27 Temperature Pulse Rate 94 H 95 H 98 H Pulse Rate [ Bilateral Throughout] Respiratory 17 16 Rate Respiratory Rate [Bilateral Throughout] Blood Pressure 118/65 118/65 126/72 O2 Sat by Pulse 99 97 Oximetry 12/27/16 08:31 Temperature Pulse Rate Pulse Rate [ 101 H Bilateral Throughout] Respiratory Rate Respiratory 21 Rate [Bilateral Throughout] Blood Pressure O2 Sat by Pulse Oximetry - General Appearance General appearance: appears stated age, chronically ill, sedated on ventilator EENT: ATNC, PERRL, mucous membranes moist Neck: no JVD Respiratory: Present: Ronchi, Decreased Breath Sounds Cardiology: regular, S1S2 Gastrointestinal: normal, normoactive bowel sounds Integumentary: no rash, other (++ edema b/l ) Neurologic: no focal deficit, CN 3-12 intact Psychiatric: mood/affect appropriate, cooperative - Lab 12/27/16 05:11 12/27/16 05:11 Most recent lab results Calcium 7.5 mg/dL (8.4-10.2) L 12/27/16 05:11 Phosphorus 5.4 mg/dL (2.5-4.5) H D 12/18/16 18:21 Magnesium 2.5 mg/dL (1.7-2.3) H 12/17/16 09:10
--- NOTE | 2016-12-27 10:20 | Progress Note ---
Assessment and Plan Assessment and plan: Septic shock due to pneumonia.. Continue supportive care, Bactrim. Off Levophed. BP stable Acute Respiratory failure due to Pneumonia. He is still intubated on ventilator. Pulmonology following. Acute metabolic encephalopathy. CT head unremarkable. Neurology following. Acute on chronic systolic CHF. EF 30% Cont aspirin, statin. Beta blockers on hold for now because of hypotension. cardiology following. Acute kidney Injury secondary to acute tubular necrosis from septic shock. He has been started on hemodialysis. Nephrology following. Cr 4.2 Hyperkalemia. This is now resolved. DKA with diabetes mellitus type 2. Now on Levemir Pneumonia due to strep pneumonia Bacteremia. One out of two blood cultures for micrococcus. Now on Bactrim. Sinus tachycardia. due to septic shock. Lopressor iv prn Hypernatremia. Hyponatremia. resolved Alcohol abuse. Hepatitis C He is still critically ill. Still intubated and needs to be in ICU History Interval history: Patient still intubated, Fever of 102.3 this morning Hospitalist Physical - Physical exam Narrative exam: Gen: Intubated, on ventilator, HEENT: normocephalic,atraumatic,still intubated Neck : no JVD Lungs: bilateral crackles, no wheezes Heart: S1 and S2 regular, no murmurs no gallops,no rubs Abdomen: soft nontender, nondistended, normal bowel sounds Extremities: no edema, no clubbing or cyanosis Neuro: Intubated, - Constitutional Vitals: Temp Pulse Resp BP Pulse Ox 97.5 F L 101 H 18 131/79 98 12/27/16 08:00 12/27/16 09:16 12/27/16 09:16 12/27/16 09:16 12/27/16 09:16 General appearance: Present: other (intubated) Results - Labs CBC & Chem 7: 12/27/16 05:11 12/27/16 05:11 Labs: Laboratory Last Values WBC 7.4 K/mm3 (4.5-11.0) 12/27/16 05:11 RBC 2.73 M/mm3 (3.65-5.03) L 12/27/16 05:11 Hgb 8.2 gm/dl (11.8-15.2) L 12/27/16 05:11 Hct 24.0 % (35.5-45.6) L 12/27/16 05:11 MCV 88 fl (84-94) 12/27/16 05:11 MCH 30 pg (28-32) 12/27/16 05:11 MCHC 34 % (32-34) 12/27/16 05:11 RDW 12.9 % (13.2-15.2) L 12/27/16 05:11 Plt Count 126 K/mm3 (140-440) L 12/27/16 05:11 Lymph % (Auto) 11.3 % (13.4-35.0) L 12/19/16 04:20 [place] % (Auto) 4.0 % (0.0-7.3) 12/19/16 04:20 Eos % (Auto) 0.3 % (0.0-4.3) 12/19/16 04:20 Baso % (Auto) 0.5 % (0.0-1.8) 12/19/16 04:20 Lymph # 1.3 K/mm3 (1.2-5.4) 12/19/16 04:20 [place] # 0.5 K/mm3 (0.0-0.8) 12/19/16 04:20 Eos # 0.0 K/mm3 (0.0-0.4) 12/19/16 04:20 Baso # 0.1 K/mm3 (0.0-0.1) 12/19/16 04:20 Seg Neutrophils % 83.9 % (40.0-70.0) H 12/19/16 04:20 Seg Neutrophils # 9.9 K/mm3 (1.8-7.7) H 12/19/16 04:20 PT 18.8 Sec. (12.2-14.9) H 12/18/16 16:55 INR 1.58 (0.87-1.13) H 12/18/16 16:55 APTT 34.5 Sec. (24.2-36.6) 12/18/16 16:55 D-Dimer 586.01 ng/mlDDU (0-234) H 12/14/16 18:03 POC ABG pH 7.392 (7.35-7.45) 12/23/16 04:48 POC ABG pCO2 37.6 (35-45) 12/23/16 04:48 POC ABG pO2 123 (80-105) H 12/23/16 04:48 POC ABG HCO3 22.9 12/23/16 04:48 POC ABG Total CO2 24 12/23/16 04:48 POC ABG O2 Sat 99 12/23/16 04:48 POC ABG Base Excess -2 12/23/16 04:48 FiO2 40 % 12/23/16 04:48 Sodium 135 mmol/L (137-145) L 12/27/16 05:11 Potassium 3.6 mmol/L (3.6-5.0) 12/27/16 05:11 Chloride 95.4 mmol/L (98-107) L 12/27/16 05:11 Carbon Dioxide 24 mmol/L (22-30) 12/27/16 05:11 Anion Gap 19 mmol/L 12/27/16 05:11 BUN 56 mg/dL (9-20) H 12/27/16 05:11 Creatinine 4.2 mg/dL (0.8-1.5) H 12/27/16 05:11 Estimated GFR 14 ml/min 12/27/16 05:11 BUN/Creatinine Ratio 13.33 % 12/27/16 05:11 Glucose 190 mg/dL (75-100) H 12/27/16 05:11 POC Glucose 160 (70-105) H 12/25/16 00:09 Lactic Acid 1.9 mmol/L (0.7-2.0) 12/18/16 09:00 Calcium 7.5 mg/dL (8.4-10.2) L 12/27/16 05:11 Phosphorus 5.4 mg/dL (2.5-4.5) H D 12/18/16 18:21 Magnesium 2.5 mg/dL (1.7-2.3) H 12/17/16 09:10 Total Bilirubin 0.9 mg/dL (0.1-1.2) 12/19/16 04:20 Direct Bilirubin 0.7 mg/dL (0-0.2) H 12/07/16 05:30 Indirect Bilirubin 0.4 mg/dL 12/07/16 05:30 AST 1058 units/L (5-40) H 12/19/16 04:20 ALT 133 units/L (7-56) H 12/19/16 04:20 Alkaline Phosphatase 35 units/L (35-129) 12/19/16 04:20 Ammonia 42.0 umol/L (25-60) 12/06/16 16:07 Total Creatine Kinase 242 units/L (55-170) H 12/07/16 06:58 CK-MB (CK-2) 2.8 ng/mL (0.0-4.0) 12/07/16 06:58 CK-MB (CK-2) Rel Index 1.1 (0-4) 12/07/16 06:58 Troponin T < 0.010 ng/mL (0.00-0.029) 12/07/16 06:58 C-Reactive Protein 1.20 mg/dL (0.00-1.30) 12/15/16 11:37 Total Protein 6.1 g/dL (6.3-8.2) L 12/19/16 04:20 Albumin 2.3 g/dL (3.9-5) L 12/19/16 04:20 Albumin/Globulin Ratio 0.6 % 12/19/16 04:20 Vitamin B12 815.1 pg/mL (211-911) 12/15/16 09:15 TSH 0.204 mlU/mL (0.270-4.200) L 12/15/16 13:40 Free T4 1.16 ng/dL (0.76-1.46) 12/15/16 13:40 Urine Color Winsome (Yellow) 12/06/16 15:30 Urine Turbidity Clear (Clear) 12/06/16 15:30 Urine pH 6.0 (5.0-7.0) 12/06/16 15:30 Ur Specific [place] 1.017 (1.003-1.030) 12/06/16 15:30 Urine Protein 100 mg/dl mg/dL (Negative) 12/06/16 15:30 Urine Glucose (UA) 50 mg/dL (Negative) 12/06/16 15:30 Urine Ketones Neg mg/dL (Negative) 12/06/16 15:30 Urine Blood Sm (Negative) 12/06/16 15:30 Urine Nitrite Neg (Negative) 12/06/16 15:30 Urine Bilirubin Neg (Negative) 12/06/16 15:30 Urine Urobilinogen 4.0 mg/dL (<2.0) 12/06/16 15:30 Ur Leukocyte Esterase Neg (Negative) 12/06/16 15:30 Urine WBC (Auto) < 1.0 /HPF (0.0-6.0) 12/06/16 15:30 Urine RBC (Auto) 4.0 /HPF (0.0-6.0) 12/06/16 15:30 Urine Mucus Few /HPF 12/06/16 15:30 Vancomycin Trough 33.7 ug/mL (5.0-20.0) H 12/16/16 18:34 Salicylates < 0.3 mg/dL (2.8-20.0) L 12/06/16 16:07 Urine Opiates Screen Presumptive negative 12/06/16 15:30 Urine Methadone Screen Presumptive negative 12/06/16 15:30 Acetaminophen < 15.0 ug/mL (10.0-30.0) 12/06/16 16:07 Ur Barbiturates Screen Presumptive negative 12/06/16 15:30 Ur Phencyclidine Scrn Presumptive negative 12/06/16 15:30 Ur Amphetamines Screen Presumptive negative 12/06/16 15:30 U Benzodiazepines Scrn Presumptive negative 12/06/16 15:30 Urine Cocaine Screen Presumptive negative 12/06/16 15:30 U Marijuana (THC) Screen Presumptive negative 12/06/16 15:30 Drugs of Abuse Note Disclamer 12/06/16 15:30 Plasma/Serum Alcohol < 0.01 gm% (0-0.07) 12/06/16 16:07 Hepatitis A IgM Ab Non-reactive (NonReactive) 12/18/16 18:21 Hep Bs Antigen Non-reactive (Negative) 12/18/16 18:21 Hep B Core IgM Ab Non-reactive (NonReactive) 12/18/16 18:21 Hepatitis C Antibody Reactive (NonReactive) 12/18/16 18:21 Blood Type A NEGATIVE 12/23/16 07:30 Antibody Screen Negative 12/23/16 07:30 Crossmatch See Detail 12/23/16 07:30
[2016-12-27] MEDS: VITAMIN B-1 PO SCH (10:36)
[2016-12-27] MEDS: FOLVITE PO SCH (10:37)
[2016-12-27] MEDS: Centrum Liq PO SCH (10:37)
[2016-12-27] MEDS: BABY ASPIRIN PO SCH (10:37)
[2016-12-27] MEDS: PROTONIX PO SCH (10:37)
[2016-12-27] MEDS: LEVEMIR SUB-Q SCH (10:50)
--- NOTE | 2016-12-27 13:30 | Progress Note ---
Assessment and Plan - Patient Problems (1) Acute hypoxemic respiratory failure Current Visit: Yes Status: Acute Plan to address problem: Continue supportive care. Cardiovascular status is stable. Subjective Date of service: 12/27/16 Principal diagnosis: Acute hypoxemic respiratory failure, shock Interval history: Patient is sedate on the vent, stable sinus rhythm on hall monitor, stable blood pressure 130 systolic. Objective Vital Signs Temp Pulse Pulse Pulse Pulse Resp Resp 12/27/16 13:00 118 H 17 12/27/16 12:46 115 H 25 H 12/27/16 12:30 102 H 18 12/27/16 12:16 102 H 17 12/27/16 12:00 98.6 F 99 H 18 12/27/16 11:46 100 H 20 12/27/16 11:30 102 H 18 12/27/16 11:16 102 H 17 12/27/16 11:04 103 H 17 12/27/16 11:00 103 H 17 12/27/16 10:46 111 H 19 12/27/16 10:30 100 H 16 12/27/16 10:16 101 H 20 17 10:00 101 H 16 17 09:46 98 H 17 17 09:30 96 H 18 17 09:16 101 H 18 12/27/16 09:00 95 H 19 1817 08:46 94 H 18 1817 08:41 100 H 20 17 08:39 102 H 1817 08:31 101 H 17 08:30 103 H 18 17 08:27 98 H 17 08:16 97 H 18 1817 08:00 97.5 F L 100 H 99 H 14 1817 07:46 94 H 19 18/17 07:30 94 H 16 18/17 07:16 98 H 17 1817 07:00 95 H 17 18/17 06:46 95 H 16 18/17 06:30 94 H 17 18/17 06:16 94 H 21 18/17 06:10 94 H 1817 06:00 92 H 18 1817 05:46 93 H 17 1817 05:30 93 H 18 17 05:16 93 H 16 18/17 05:00 96 H 17 1817 04:46 86 17 1817 04:30 91 H 18 1817 04:16 92 H 16 1817 04:00 91 H 19 1817 03:50 97.6 F 95 H 1817 03:46 95 H 19 1817 03:30 93 H 1817 03:23 101 H 1817 03:16 99 H 17 1817 03:00 105 H 14 1817 02:46 106 H 19 1817 02:35 101 H 1817 02:30 103 H 16 17 02:22 97 H 17 02:16 99 H 9 L 17 02:00 94 H 15 1817 01:46 95 H 17 17 01:30 87 18 17 01:16 87 16 1817 01:00 92 H 15 1817 00:51 96.6 F L 1817 00:46 93 H 11 L 1817 00:30 87 15 1817 00:16 93 H 17 1817 00:00 99 H 14 17 23:46 94 H 18 1717 23:30 90 16 1717 23:16 91 H 15 1717 23:00 82 15 1717 22:46 86 15 1717 22:30 92 H 18 1717 22:16 86 16 1717 22:00 94 H 18 17/17 21:46 88 16 17/17 21:30 89 13 1717 21:16 93 H 16 1717 21:00 93 H 16 1717 20:46 99 H 17 17/17 20:30 92 H 15 17/17 20:16 87 16 17/17 20:03 95 H 1717 20:00 89 16 1717 19:52 93 H 14 1717 19:46 88 16 17 19:30 94 H 16 17 19:25 94 H 15 17 19:16 88 15 17 19:00 85 16 1717 18:46 88 15 17 18:30 93 H 13 17 18:16 90 18 17 18:00 96 H 15 17 17:46 100 H 12 17 17:39 88 17 17:30 88 16 17 17:16 89 16 17 17:00 98 H 15 12/26/16 16:45 91 H 16 17 16:30 88 11 L 12/26/16 16:20 92 H 17 16:15 92 H 16 17 16:00 98.3 F 98 H 92 H 16 12/26/16 15:45 98 H 17 17 15:30 104 H 12 12/26/16 15:15 89 16 12/26/16 15:00 94 H 13 12/26/16 14:45 103 H 12 12/26/16 14:30 101 H 20 12/26/16 14:15 101 H 14 12/26/16 14:08 99.7 F H 109 H 15 12/26/16 14:00 104 H 18 12/26/16 13:45 108 H 13 17 13:30 106 H 16 Resp Resp BP Pulse Ox 12/27/16 13:00 122/75 98 12/27/16 12:46 113/63 99 17 12:30 113/63 96 17 12:16 116/62 98 1817 12:00 116/62 98 1817 11:46 106/57 98 18/17 11:30 123/63 95 18/17 11:16 123/63 94 1817 11:04 123/63 92 1817 11:00 123/63 95 18/17 10:46 130/72 99 18/17 10:30 130/72 96 18/17 10:16 126/69 98 1817 10:00 133/70 96 17 09:46 123/69 97 03/18/17 09:30 126/69 98 03/18/17 09:16 131/79 98 03/18/17 09:00 123/69 97 03/18/17 08:46 131/79 98 03/18/17 08:41 131/79 96 03/18/17 08:39 23 /18/17 08:31 21 03/18/17 08:30 131/79 96 03/18/17 08:27 126/72 97 03/18/17 08:16 126/72 100 03/18/17 08:00 126/72 99 /18/17 07:46 117/69 99 03/18/17 07:30 116/66 97 /18/17 07:16 118/65 98 /18/17 07:00 117/69 /18/17 06:46 118/65 99 /18/17 06:30 118/65 /18/17 06:16 121/68 99 /18/17 06:10 99 /18/17 06:00 121/68 99 /18/17 05:46 126/69 99 03/18/17 05:30 126/69 98 03/18/17 05:16 120/67 99 03/18/17 05:00 120/67 98 03/18/17 04:46 115/65 99 /18/17 04:30 101/56 98 03/18/17 04:16 115/65 97 /18/17 04:00 115/65 97 03/18/17 03:50 99 03/18/17 03:46 136/76 99 03/18/17 03:30 136/76 98 03/18/17 03:23 120/68 97 03/18/17 03:16 136/76 98 03/18/17 03:00 136/76 98 03/18/17 02:46 130/69 99 03/18/17 02:35 20 /18/17 02:30 130/69 97 03/18/17 02:22 18 /18/17 02:16 129/69 100 /18/17 02:00 129/69 98 03/18/17 01:46 121/60 100 03/18/17 01:30 121/60 98 /18/17 01:16 122/68 99 03/18/17 01:00 122/68 0318/17 00:51 0318/17 00:46 116/65 99 18/17 00:30 116/65 99 18/17 00:16 126/65 98 18/17 00:00 126/65 99 17/17 23:46 116/66 99 17/17 23:30 116/66 97 17/17 23:16 116/62 99 1717 23:00 116/62 99 17/17 22:46 106/67 99 17/17 22:30 106/67 97 17/17 22:16 114/66 98 1717 22:00 114/66 99 1717 21:46 105/49 99 17/17 21:30 105/49 99 17/17 21:16 110/51 99 1717 21:00 110/51 98 17 20:46 111/60 99 1717 20:30 111/60 98 1717 20:16 115/61 97 17 20:03 18 17 20:00 115/61 97 1717 19:52 1717 19:46 114/63 98 17/17 19:30 114/63 98 17/17 19:25 15 99 1717 19:16 96/50 99 1717 19:00 119/56 97 17/17 18:46 111/59 96 17/17 18:30 111/59 96 17/17 18:16 119/56 98 17/17 18:00 119/56 98 17/17 17:46 107/57 99 17/17 17:39 107/57 97 17/17 17:30 107/57 97 17/17 17:16 118/63 98 17/17 17:00 120/59 17/17 16:45 120/59 98 17/17 16:30 121/60 96 17/17 16:20 14 17/17 16:15 120/62 96 17/17 16:00 129/65 98 03/17/17 15:45 128/58 97 12/26/16 15:30 126/71 97 12/26/16 15:15 106/58 96 12/26/16 15:00 131/65 98 12/26/16 14:45 133/66 98 12/26/16 14:30 112/62 97 12/26/16 14:15 130/61 98 12/26/16 14:08 133/75 12/26/16 14:00 133/75 99 12/26/16 13:45 133/67 100 12/26/16 13:30 125/73 98 - Physical Examination General: Other (intubated on mechanical ventilator) HEENT: Positive: PERRL Neck: Positive: neck supple. Negative: JVD/HJR Cardiac: Positive: Reg Rate and Rhythm Lungs: Positive: Decreased Breath Sounds Neuro: Positive: Other (sedated on the vent) Abdomen: Positive: Soft Skin: Positive: Clear Extremities: Absent: edema - Labs and Meds CBC 12/27/16 Range/Units 05:11 WBC 7.4 (4.5-11.0) K/mm3 RBC 2.73 L (3.65-5.03) M/mm3 Hgb 8.2 L (11.8-15.2) gm/dl Hct 24.0 L (35.5-45.6) % Plt Count 126 L (140-440) K/mm3 Comprehensive Metabolic Panel 12/27/16 Range/Units 05:11 Sodium 135 L (137-145) mmol/L Potassium 3.6 (3.6-5.0) mmol/L Chloride 95.4 L (98-107) mmol/L Carbon Dioxide 24 (22-30) mmol/L BUN 56 H (9-20) mg/dL Creatinine 4.2 H (0.8-1.5) mg/dL Glucose 190 H (75-100) mg/dL Calcium 7.5 L (8.4-10.2) mg/dL - Allied health notes Allied health notes reviewed: RT
--- NOTE | 2016-12-27 13:52 | Progress Note ---
Assessment and Plan Patient just came back from CAT scan of abdomen and chest.Patient awake. Resting on Assist control rate 12, tidal volume 450, FIO2 40%, PEEP 8 and O2 satuaration 94%. - Patient Problems (1) Acute hypoxemic respiratory failure Current Visit: Yes Status: Acute Plan to address problem: Patient is on mechanical ventilation assist control rate 12, tidal volume 450, FIO2 40%, PEEP 5 . Albuterol/atrovent aerosol treatments q 6 hours. Continue S/C Heparin. Continue Protonix. (2) Acute kidney failure with tubular necrosis Current Visit: Yes Status: Acute Plan to address problem: Management as per nephrology. (3) Altered mental status Current Visit: Yes Status: Acute Qualifiers: Altered mental status type: A Coma depth: C Coma timing: C Plan to address problem: Management as per primary care. (4) Cardiomyopathy Current Visit: Yes Status: Acute Plan to address problem: Management as per cardiology. (5) Tobacco abuse Current Visit: No Status: Chronic Plan to address problem: Counselled to stop smoking. Subjective Date of service: 12/27/16 Principal diagnosis: Acute hypoxemic respiratory failure, shock Interval history: Patient just came back from CAT scan of abdomen and chest.Patient awake. Resting on Assist control rate 12, tidal volume 450, FIO2 40%, PEEP 8 and O2 satuaration 94%. Objective Vital Signs - 12hr 12/27/16 12/27/16 12/27/16 02:00 02:16 02:22 Temperature Pulse Rate 94 H 99 H Pulse Rate [ 97 H Bilateral Throughout] Pulse Rate [ From Monitor] Respiratory 15 9 L Rate Respiratory 18 Rate [Bilateral Throughout] Blood Pressure 129/69 129/69 O2 Sat by Pulse 98 100 Oximetry 12/27/16 12/27/16 12/27/16 02:30 02:35 02:46 Temperature Pulse Rate 103 H 106 H Pulse Rate [ 101 H Bilateral Throughout] Pulse Rate [ From Monitor] Respiratory 16 19 Rate Respiratory 20 Rate [Bilateral Throughout] Blood Pressure 130/69 130/69 O2 Sat by Pulse 97 99 Oximetry 12/27/16 12/27/16 12/27/16 03:00 03:16 03:23 Temperature Pulse Rate 105 H 99 H 101 H Pulse Rate [ Bilateral Throughout] Pulse Rate [ From Monitor] Respiratory 14 17 Rate Respiratory Rate [Bilateral Throughout] Blood Pressure 136/76 136/76 120/68 O2 Sat by Pulse 98 98 97 Oximetry 12/27/16 12/27/16 12/27/16 03:30 03:46 03:50 Temperature 97.6 F Pulse Rate 93 H 95 H 95 H Pulse Rate [ Bilateral Throughout] Pulse Rate [ From Monitor] Respiratory 19 Rate Respiratory Rate [Bilateral Throughout] Blood Pressure 136/76 136/76 O2 Sat by Pulse 98 99 99 Oximetry 12/27/16 12/27/16 12/27/16 04:00 04:16 04:30 Temperature Pulse Rate 91 H 92 H 91 H Pulse Rate [ Bilateral Throughout] Pulse Rate [ From Monitor] Respiratory 19 16 18 Rate Respiratory Rate [Bilateral Throughout] Blood Pressure 115/65 115/65 101/56 O2 Sat by Pulse 97 97 98 Oximetry 12/27/16 12/27/16 12/27/16 04:46 05:00 05:16 Temperature Pulse Rate 86 96 H 93 H Pulse Rate [ Bilateral Throughout] Pulse Rate [ From Monitor] Respiratory 17 17 16 Rate Respiratory Rate [Bilateral Throughout] Blood Pressure 115/65 120/67 120/67 O2 Sat by Pulse 99 98 99 Oximetry 12/27/16 12/27/16 12/27/16 05:30 05:46 06:00 Temperature Pulse Rate 93 H 93 H 92 H Pulse Rate [ Bilateral Throughout] Pulse Rate [ From Monitor] Respiratory 18 17 18 Rate Respiratory Rate [Bilateral Throughout] Blood Pressure 126/69 126/69 121/68 O2 Sat by Pulse 98 99 99 Oximetry 12/27/16 12/27/16 12/27/16 06:10 06:16 06:30 Temperature Pulse Rate 94 H 94 H 94 H Pulse Rate [ Bilateral Throughout] Pulse Rate [ From Monitor] Respiratory 21 17 Rate Respiratory Rate [Bilateral Throughout] Blood Pressure 121/68 118/65 O2 Sat by Pulse 99 99 Oximetry 17 18/17 12/27/16 06:46 07:00 07:16 Temperature Pulse Rate 95 H 95 H 98 H Pulse Rate [ Bilateral Throughout] Pulse Rate [ From Monitor] Respiratory 16 17 17 Rate Respiratory Rate [Bilateral Throughout] Blood Pressure 118/65 117/69 118/65 O2 Sat by Pulse 99 98 Oximetry 12/27/161817 12/27/16 07:30 07:46 08:00 Temperature 97.5 F L Pulse Rate 94 H 94 H 100 H Pulse Rate [ Bilateral Throughout] Pulse Rate [ 99 H From Monitor] Respiratory 16 19 14 Rate Respiratory Rate [Bilateral Throughout] Blood Pressure 116/66 117/69 126/72 O2 Sat by Pulse 97 99 99 Oximetry 12/27/16 12/27/16 12/27/16 08:16 08:27 08:30 Temperature Pulse Rate 97 H 98 H 103 H Pulse Rate [ Bilateral Throughout] Pulse Rate [ From Monitor] Respiratory 18 18 Rate Respiratory Rate [Bilateral Throughout] Blood Pressure 126/72 126/72 131/79 O2 Sat by Pulse 100 97 96 Oximetry 12/27/16 12/27/16 12/27/16 08:31 08:39 08:41 Temperature Pulse Rate 100 H Pulse Rate [ 101 H 102 H Bilateral Throughout] Pulse Rate [ From Monitor] Respiratory 20 Rate Respiratory 21 23 Rate [Bilateral Throughout] Blood Pressure 131/79 O2 Sat by Pulse 96 Oximetry 12/27/16 12/27/16 12/27/16 08:46 09:00 09:16 Temperature Pulse Rate 94 H 95 H 101 H Pulse Rate [ Bilateral Throughout] Pulse Rate [ From Monitor] Respiratory 18 19 18 Rate Respiratory Rate [Bilateral Throughout] Blood Pressure 131/79 123/69 131/79 O2 Sat by Pulse 98 97 98 Oximetry 12/27/16 12/27/16 12/27/16 09:30 09:46 10:00 Temperature Pulse Rate 96 H 98 H 101 H Pulse Rate [ Bilateral Throughout] Pulse Rate [ From Monitor] Respiratory 18 17 16 Rate Respiratory Rate [Bilateral Throughout] Blood Pressure 126/69 123/69 133/70 O2 Sat by Pulse 98 97 96 Oximetry 12/27/16 12/27/16 12/27/16 10:16 10:30 10:46 Temperature Pulse Rate 101 H 100 H 111 H Pulse Rate [ Bilateral Throughout] Pulse Rate [ From Monitor] Respiratory 20 16 19 Rate Respiratory Rate [Bilateral Throughout] Blood Pressure 126/69 130/72 130/72 O2 Sat by Pulse 98 96 99 Oximetry 12/27/16 12/27/16 12/27/16 11:00 11:04 11:16 Temperature Pulse Rate 103 H 103 H 102 H Pulse Rate [ Bilateral Throughout] Pulse Rate [ From Monitor] Respiratory 17 17 17 Rate Respiratory Rate [Bilateral Throughout] Blood Pressure 123/63 123/63 123/63 O2 Sat by Pulse 95 92 94 Oximetry 12/27/16 12/27/16 12/27/16 11:30 11:46 12:00 Temperature 98.6 F Pulse Rate 102 H 100 H 99 H Pulse Rate [ Bilateral Throughout] Pulse Rate [ From Monitor] Respiratory 18 20 18 Rate Respiratory Rate [Bilateral Throughout] Blood Pressure 123/63 106/57 116/62 O2 Sat by Pulse 95 98 98 Oximetry 12/27/16 12/27/16 12/27/16 12:16 12:30 12:46 Temperature Pulse Rate 102 H 102 H 115 H Pulse Rate [ Bilateral Throughout] Pulse Rate [ From Monitor] Respiratory 17 18 25 H Rate Respiratory Rate [Bilateral Throughout] Blood Pressure 116/62 113/63 113/63 O2 Sat by Pulse 98 96 99 Oximetry 12/27/16 13:00 Temperature Pulse Rate 118 H Pulse Rate [ Bilateral Throughout] Pulse Rate [ From Monitor] Respiratory 17 Rate Respiratory Rate [Bilateral Throughout] Blood Pressure 122/75 O2 Sat by Pulse 98 Oximetry Constitutional: no acute distress, other (sedated) Eyes: non-icteric ENT: oropharynx moist Neck: supple, no lymphadenopathy, no JVD Effort: mildly labored Ascultation: Bilateral: diminished breath sounds, rales (basilar and scant), rhonchi Cardiovascular: regular rate and rhythm Gastrointestinal: normoactive bowel sounds, hypoactive bowel sounds, soft, non- tender, non-distended Integumentary: normal Extremities: no cyanosis, pink and warm, pulses normal, no ischemia or petechiae Neurologic: non-focal exam (grossly), pupils equal and round, unable to assess Psychiatric: other (sedated) CBC and BMP: 12/27/16 05:11 12/27/16 05:11 ABG, PT/INR, D-dimer: ABG POC ABG pH 7.392 (7.35-7.45) 12/23/16 04:48 POC ABG pCO2 37.6 (35-45) 12/23/16 04:48 POC ABG pO2 123 (80-105) H 12/23/16 04:48 POC ABG HCO3 22.9 12/23/16 04:48 POC ABG Total CO2 24 12/23/16 04:48 POC ABG O2 Sat 99 12/23/16 04:48 PT/INR, D-dimer PT 18.8 Sec. (12.2-14.9) H 12/18/16 16:55 INR 1.58 (0.87-1.13) H 12/18/16 16:55 D-Dimer 586.01 ng/mlDDU (0-234) H 12/14/16 18:03 Abnormal lab findings: Abnormal Labs 12/07/16 12/07/16 12/07/16 00:35 05:30 05:30 WBC RBC Hgb Hct MCV MCHC RDW 13.0 L Plt Count 93 L Lymph % (Auto) [place] % (Auto) 11.2 H [place] # 1.1 H Baso # Seg Neutrophils % 71.3 H Seg Neutrophils # PT INR D-Dimer POC ABG pH POC ABG pCO2 POC ABG pO2 Sodium Potassium Chloride Carbon Dioxide BUN Creatinine 0.6 L Glucose 168 H POC Glucose Lactic Acid Calcium 7.8 L Phosphorus Magnesium Direct Bilirubin 0.7 H AST ALT Alkaline Phosphatase Total Creatine Kinase 343 H C-Reactive Protein Total Protein Albumin 2.6 L TSH Vancomycin Trough Crossmatch 12/07/16 12/07/16 12/07/16 06:58 16:41 18:30 WBC RBC Hgb Hct MCV MCHC RDW Plt Count Lymph % (Auto) [place] % (Auto) [place] # Baso # Seg Neutrophils % Seg Neutrophils # PT INR D-Dimer POC ABG pH POC ABG pCO2 POC ABG pO2 Sodium Potassium Chloride Carbon Dioxide BUN Creatinine Glucose POC Glucose 175 H Lactic Acid Calcium Phosphorus Magnesium Direct Bilirubin AST ALT Alkaline Phosphatase Total Creatine Kinase 242 H C-Reactive Protein 7.70 H Total Protein Albumin TSH Vancomycin Trough Crossmatch 12/09/16 12/10/16 12/10/16 11:58 06:05 12:24 WBC RBC Hgb Hct MCV MCHC RDW Plt Count Lymph % (Auto) [place] % (Auto) [place] # Baso # Seg Neutrophils % Seg Neutrophils # PT INR D-Dimer POC ABG pH 7.485 H POC ABG pCO2 POC ABG pO2 Sodium Potassium Chloride Carbon Dioxide BUN Creatinine Glucose POC Glucose 141 H 183 H Lactic Acid Calcium Phosphorus Magnesium Direct Bilirubin AST ALT Alkaline Phosphatase Total Creatine Kinase C-Reactive Protein Total Protein Albumin TSH Vancomycin Trough Crossmatch 12/10/16 12/10/16 12/11/16 17:47 23:21 06:10 WBC RBC Hgb Hct MCV MCHC RDW Plt Count Lymph % (Auto) [place] % (Auto) [place] # Baso # Seg Neutrophils % Seg Neutrophils # PT INR D-Dimer POC ABG pH POC ABG pCO2 POC ABG pO2 Sodium Potassium Chloride Carbon Dioxide BUN Creatinine Glucose POC Glucose 176 H 240 H 252 H Lactic Acid Calcium Phosphorus Magnesium Direct Bilirubin AST ALT Alkaline Phosphatase Total Creatine Kinase C-Reactive Protein Total Protein Albumin TSH Vancomycin Trough Crossmatch 12/11/16 12/11/16 12/11/16 08:29 09:14 11:37 WBC RBC Hgb Hct MCV MCHC RDW 13.1 L Plt Count Lymph % (Auto) [place] % (Auto) [place] # Baso # Seg Neutrophils % Seg Neutrophils # PT INR D-Dimer POC ABG pH POC ABG pCO2 POC ABG pO2 Sodium Potassium Chloride Carbon Dioxide BUN Creatinine Glucose POC Glucose 253 H 284 H Lactic Acid Calcium Phosphorus Magnesium Direct Bilirubin AST ALT Alkaline Phosphatase Total Creatine Kinase C-Reactive Protein Total Protein Albumin TSH Vancomycin Trough Crossmatch 12/11/16 12/11/16 12/11/16 16:12 17:54 23:35 WBC RBC Hgb Hct MCV MCHC RDW Plt Count Lymph % (Auto) [place] % (Auto) [place] # Baso # Seg Neutrophils % Seg Neutrophils # PT INR D-Dimer POC ABG pH POC ABG pCO2 POC ABG pO2 Sodium Potassium Chloride Carbon Dioxide BUN 37 H Creatinine Glucose 258 H POC Glucose 227 H 264 H Lactic Acid Calcium 8.3 L Phosphorus Magnesium Direct Bilirubin AST ALT Alkaline Phosphatase Total Creatine Kinase C-Reactive Protein Total Protein Albumin 2.6 L TSH Vancomycin Trough Crossmatch 12/12/16 12/12/16 12/12/16 04:37 06:06 10:12 WBC RBC Hgb Hct MCV MCHC RDW Plt Count Lymph % (Auto) [place] % (Auto) [place] # Baso # Seg Neutrophils % Seg Neutrophils # PT INR D-Dimer POC ABG pH 7.500 H POC ABG pCO2 POC ABG pO2 69 L Sodium Potassium Chloride Carbon Dioxide BUN Creatinine Glucose POC Glucose 288 H Lactic Acid Calcium Phosphorus Magnesium Direct Bilirubin AST ALT Alkaline Phosphatase Total Creatine Kinase C-Reactive Protein Total Protein Albumin TSH Vancomycin Trough Crossmatch 12/12/16 12/12/16 12/12/16 13:08 17:46 23:31 WBC RBC Hgb Hct MCV MCHC RDW Plt Count Lymph % (Auto) [place] % (Auto) [place] # Baso # Seg Neutrophils % Seg Neutrophils # PT INR D-Dimer POC ABG pH POC ABG pCO2 POC ABG pO2 Sodium Potassium Chloride Carbon Dioxide BUN Creatinine Glucose POC Glucose 215 H 234 H 241 H Lactic Acid Calcium Phosphorus Magnesium Direct Bilirubin AST ALT Alkaline Phosphatase Total Creatine Kinase C-Reactive Protein Total Protein Albumin TSH Vancomycin Trough Crossmatch 12/13/16 12/13/16 12/13/16 05:38 11:44 17:32 WBC RBC Hgb Hct MCV MCHC RDW Plt Count Lymph % (Auto) [place] % (Auto) [place] # Baso # Seg Neutrophils % Seg Neutrophils # PT INR D-Dimer POC ABG pH POC ABG pCO2 POC ABG pO2 Sodium Potassium Chloride Carbon Dioxide BUN Creatinine Glucose POC Glucose 215 H 237 H 215 H Lactic Acid Calcium Phosphorus Magnesium Direct Bilirubin AST ALT Alkaline Phosphatase Total Creatine Kinase C-Reactive Protein Total Protein Albumin TSH Vancomycin Trough Crossmatch 12/14/16 12/14/16 12/14/16 00:22 05:40 12:03 WBC RBC Hgb Hct MCV MCHC RDW Plt Count Lymph % (Auto) [place] % (Auto) [place] # Baso # Seg Neutrophils % Seg Neutrophils # PT INR D-Dimer POC ABG pH POC ABG pCO2 POC ABG pO2 Sodium Potassium Chloride Carbon Dioxide BUN Creatinine Glucose POC Glucose 268 H 301 H 312 H Lactic Acid Calcium Phosphorus Magnesium Direct Bilirubin AST ALT Alkaline Phosphatase Total Creatine Kinase C-Reactive Protein Total Protein Albumin TSH Vancomycin Trough Crossmatch 12/14/16 12/14/16 12/14/16 18:03 18:03 18:03 WBC RBC Hgb Hct MCV MCHC RDW 12.9 L Plt Count Lymph % (Auto) [place] % (Auto) 8.0 H [place] # Baso # Seg Neutrophils % 72.4 H Seg Neutrophils # PT INR D-Dimer 586.01 H POC ABG pH POC ABG pCO2 POC ABG pO2 Sodium 150 H Potassium Chloride 109.1 H Carbon Dioxide BUN 50 H Creatinine Glucose 261 H POC Glucose Lactic Acid Calcium Phosphorus Magnesium Direct Bilirubin AST ALT Alkaline Phosphatase Total Creatine Kinase C-Reactive Protein Total Protein Albumin TSH Vancomycin Trough Crossmatch 12/14/16 12/14/16 12/14/16 18:30 21:55 23:59 WBC RBC Hgb Hct MCV MCHC RDW Plt Count Lymph % (Auto) [place] % (Auto) [place] # Baso # Seg Neutrophils % Seg Neutrophils # PT INR D-Dimer POC ABG pH POC ABG pCO2 POC ABG pO2 Sodium Potassium Chloride Carbon Dioxide BUN Creatinine Glucose POC Glucose 321 H 258 H 262 H Lactic Acid Calcium Phosphorus Magnesium Direct Bilirubin AST ALT Alkaline Phosphatase Total Creatine Kinase C-Reactive Protein Total Protein Albumin TSH Vancomycin Trough Crossmatch 12/15/16 12/15/16 12/15/16 05:28 06:04 09:15 WBC RBC Hgb Hct MCV MCHC RDW Plt Count Lymph % (Auto) [place] % (Auto) [place] # Baso # Seg Neutrophils % Seg Neutrophils # PT INR D-Dimer POC ABG pH POC ABG pCO2 POC ABG pO2 Sodium Potassium Chloride Carbon Dioxide BUN Creatinine Glucose POC Glucose 274 H 276 H Lactic Acid Calcium Phosphorus Magnesium Direct Bilirubin AST ALT Alkaline Phosphatase Total Creatine Kinase C-Reactive Protein Total Protein Albumin TSH 0.220 L Vancomycin Trough Crossmatch 12/15/16 12/15/16 12/15/16 11:59 13:40 18:06 WBC RBC Hgb Hct MCV MCHC RDW Plt Count Lymph % (Auto) [place] % (Auto) [place] # Baso # Seg Neutrophils % Seg Neutrophils # PT INR D-Dimer POC ABG pH POC ABG pCO2 33.3 L POC ABG pO2 70 L Sodium Potassium Chloride Carbon Dioxide BUN Creatinine Glucose POC Glucose 273 H Lactic Acid Calcium Phosphorus Magnesium Direct Bilirubin AST ALT Alkaline Phosphatase Total Creatine Kinase C-Reactive Protein Total Protein Albumin TSH 0.204 L Vancomycin Trough Crossmatch 12/15/16 12/15/16 12/16/16 18:14 21:26 02:08 WBC RBC Hgb Hct MCV MCHC RDW Plt Count Lymph % (Auto) [place] % (Auto) [place] # Baso # Seg Neutrophils % Seg Neutrophils # PT INR D-Dimer POC ABG pH 7.341 L POC ABG pCO2 POC ABG pO2 223 H Sodium Potassium Chloride Carbon Dioxide BUN Creatinine Glucose POC Glucose 234 H 371 H Lactic Acid Calcium Phosphorus Magnesium Direct Bilirubin AST ALT Alkaline Phosphatase Total Creatine Kinase C-Reactive Protein Total Protein Albumin TSH Vancomycin Trough Crossmatch 12/16/16 12/16/16 12/16/16 05:12 05:18 09:40 WBC RBC Hgb Hct MCV MCHC RDW Plt Count Lymph % (Auto) [place] % (Auto) [place] # Baso # Seg Neutrophils % Seg Neutrophils # PT INR D-Dimer POC ABG pH POC ABG pCO2 32.5 L POC ABG pO2 Sodium 154 H Potassium Chloride 116.8 H Carbon Dioxide 18 L D BUN 92 H Creatinine 3.0 H D Glucose 364 H POC Glucose 357 H Lactic Acid Calcium 8.2 L Phosphorus Magnesium Direct Bilirubin AST ALT Alkaline Phosphatase Total Creatine Kinase C-Reactive Protein Total Protein Albumin TSH Vancomycin Trough Crossmatch 12/16/16 12/16/16 12/16/16 13:40 18:27 18:34 WBC RBC Hgb Hct MCV MCHC RDW Plt Count Lymph % (Auto) [place] % (Auto) [place] # Baso # Seg Neutrophils % Seg Neutrophils # PT INR D-Dimer POC ABG pH POC ABG pCO2 POC ABG pO2 Sodium Potassium Chloride Carbon Dioxide BUN Creatinine Glucose POC Glucose 391 H 472 H Lactic Acid Calcium Phosphorus Magnesium Direct Bilirubin AST ALT Alkaline Phosphatase Total Creatine Kinase C-Reactive Protein Total Protein Albumin TSH Vancomycin Trough 33.7 H Crossmatch 12/17/16 12/17/16 12/17/16 00:38 01:54 05:53 WBC RBC Hgb Hct MCV MCHC RDW Plt Count Lymph % (Auto) [place] % (Auto) [place] # Baso # Seg Neutrophils % Seg Neutrophils # PT INR D-Dimer POC ABG pH 7.234 L POC ABG pCO2 34.5 L POC ABG pO2 50 L Sodium Potassium Chloride Carbon Dioxide BUN Creatinine Glucose POC Glucose 386 H 400 H Lactic Acid Calcium Phosphorus Magnesium Direct Bilirubin AST ALT Alkaline Phosphatase Total Creatine Kinase C-Reactive Protein Total Protein Albumin TSH Vancomycin Trough Crossmatch 12/17/16 12/17/16 12/17/16 06:45 06:45 07:45 WBC 12.3 H RBC Hgb 11.7 L Hct MCV 97 H D MCHC 31 L RDW Plt Count Lymph % (Auto) [place] % (Auto) 14.4 H [place] # 1.8 H Baso # 0.2 H Seg Neutrophils % Seg Neutrophils # 8.2 H PT INR D-Dimer POC ABG pH POC ABG pCO2 POC ABG pO2 Sodium Potassium 7.6 H* D Chloride 110.8 H Carbon Dioxide 14 L BUN 121 H Creatinine 5.4 H D Glucose 566 H* POC Glucose > 500 H Lactic Acid Calcium 6.2 L D Phosphorus Magnesium Direct Bilirubin AST 323 H ALT Alkaline Phosphatase 27 L Total Creatine Kinase C-Reactive Protein Total Protein Albumin 2.3 L TSH Vancomycin Trough Crossmatch 12/17/16 12/17/16 12/17/16 08:51 09:10 09:11 WBC RBC Hgb Hct MCV MCHC RDW Plt Count Lymph % (Auto) [place] % (Auto) [place] # Baso # Seg Neutrophils % Seg Neutrophils # PT INR D-Dimer POC ABG pH 7.113 L POC ABG pCO2 46.1 H POC ABG pO2 186 H Sodium Potassium Chloride Carbon Dioxide BUN Creatinine Glucose POC Glucose > 500 H Lactic Acid Calcium Phosphorus 9.5 H Magnesium 2.5 H Direct Bilirubin AST ALT Alkaline Phosphatase Total Creatine Kinase C-Reactive Protein Total Protein Albumin TSH Vancomycin Trough Crossmatch 12/17/16 12/17/16 12/17/16 10:18 10:50 11:17 WBC RBC Hgb Hct MCV MCHC RDW Plt Count Lymph % (Auto) [place] % (Auto) [place] # Baso # Seg Neutrophils % Seg Neutrophils # PT INR D-Dimer POC ABG pH POC ABG pCO2 POC ABG pO2 Sodium Potassium 6.1 H* Chloride 110.1 H Carbon Dioxide 14 L BUN 128 H Creatinine 5.5 H Glucose 580 H* POC Glucose > 500 H > 500 H Lactic Acid Calcium Phosphorus Magnesium Direct Bilirubin AST ALT Alkaline Phosphatase Total Creatine Kinase C-Reactive Protein Total Protein Albumin TSH Vancomycin Trough Crossmatch 12/17/16 12/17/16 12/17/16 12:09 12:30 13:36 WBC RBC Hgb Hct MCV MCHC RDW Plt Count Lymph % (Auto) [place] % (Auto) [place] # Baso # Seg Neutrophils % Seg Neutrophils # PT INR D-Dimer POC ABG pH POC ABG pCO2 POC ABG pO2 Sodium Potassium 5.6 H Chloride 110.4 H Carbon Dioxide 14 L BUN 138 H Creatinine 5.3 H Glucose 528 H* POC Glucose 428 H 426 H Lactic Acid Calcium 6.8 L D Phosphorus Magnesium Direct Bilirubin AST ALT Alkaline Phosphatase Total Creatine Kinase C-Reactive Protein Total Protein Albumin TSH Vancomycin Trough Crossmatch 12/17/16 12/17/16 12/17/16 14:11 14:25 14:45 WBC RBC Hgb Hct MCV MCHC RDW Plt Count Lymph % (Auto) [place] % (Auto) [place] # Baso # Seg Neutrophils % Seg Neutrophils # PT INR D-Dimer POC ABG pH 7.297 L POC ABG pCO2 34.2 L POC ABG pO2 114 H Sodium 146 H Potassium 5.3 H Chloride 109.3 H Carbon Dioxide 15 L BUN 128 H Creatinine 5.5 H Glucose 426 H POC Glucose 422 H Lactic Acid Calcium 6.7 L Phosphorus Magnesium Direct Bilirubin AST ALT Alkaline Phosphatase Total Creatine Kinase C-Reactive Protein Total Protein Albumin TSH Vancomycin Trough Crossmatch 12/17/16 12/17/16 12/17/16 15:07 16:03 16:56 WBC RBC Hgb Hct MCV MCHC RDW Plt Count Lymph % (Auto) [place] % (Auto) [place] # Baso # Seg Neutrophils % Seg Neutrophils # PT INR D-Dimer POC ABG pH POC ABG pCO2 POC ABG pO2 Sodium Potassium Chloride Carbon Dioxide BUN Creatinine Glucose POC Glucose 392 H 450 H 352 H Lactic Acid Calcium Phosphorus Magnesium Direct Bilirubin AST ALT Alkaline Phosphatase Total Creatine Kinase C-Reactive Protein Total Protein Albumin TSH Vancomycin Trough Crossmatch 12/17/16 12/17/16 12/17/16 18:00 18:10 18:38 WBC RBC Hgb Hct MCV MCHC RDW Plt Count Lymph % (Auto) [place] % (Auto) [place] # Baso # Seg Neutrophils % Seg Neutrophils # PT INR D-Dimer POC ABG pH POC ABG pCO2 POC ABG pO2 Sodium 147 H Potassium Chloride 109.7 H Carbon Dioxide 15 L BUN 140 H Creatinine 5.2 H Glucose 301 H POC Glucose 318 H 256 H Lactic Acid Calcium 6.5 L Phosphorus Magnesium Direct Bilirubin AST ALT Alkaline Phosphatase Total Creatine Kinase C-Reactive Protein Total Protein Albumin TSH Vancomycin Trough Crossmatch 12/17/16 12/17/16 12/17/16 19:31 20:00 20:44 WBC RBC Hgb Hct MCV MCHC RDW Plt Count Lymph % (Auto) [place] % (Auto) [place] # Baso # Seg Neutrophils % Seg Neutrophils # PT 17.7 H INR 1.46 H D-Dimer POC ABG pH POC ABG pCO2 30.5 L POC ABG pO2 134 H Sodium Potassium Chloride Carbon Dioxide BUN Creatinine Glucose POC Glucose 189 H Lactic Acid Calcium Phosphorus Magnesium Direct Bilirubin AST ALT Alkaline Phosphatase Total Creatine Kinase C-Reactive Protein Total Protein Albumin TSH Vancomycin Trough Crossmatch 12/17/16 12/17/16 12/18/16 21:59 23:18 00:15 WBC RBC Hgb Hct MCV MCHC RDW Plt Count Lymph % (Auto) [place] % (Auto) [place] # Baso # Seg Neutrophils % Seg Neutrophils # PT INR D-Dimer POC ABG pH POC ABG pCO2 POC ABG pO2 Sodium 147 H Potassium 5.2 H Chloride 107.9 H Carbon Dioxide 18 L BUN 143 H Creatinine 5.6 H Glucose 152 H POC Glucose 191 H 132 H Lactic Acid Calcium 6.3 L Phosphorus Magnesium Direct Bilirubin AST ALT Alkaline Phosphatase Total Creatine Kinase C-Reactive Protein Total Protein Albumin TSH Vancomycin Trough Crossmatch 12/18/16 12/18/16 12/18/16 00:18 01:08 02:35 WBC RBC Hgb Hct MCV MCHC RDW Plt Count Lymph % (Auto) [place] % (Auto) [place] # Baso # Seg Neutrophils % Seg Neutrophils # PT INR D-Dimer POC ABG pH POC ABG pCO2 POC ABG pO2 Sodium Potassium Chloride Carbon Dioxide BUN Creatinine Glucose POC Glucose 190 H 157 H 144 H Lactic Acid Calcium Phosphorus Magnesium Direct Bilirubin AST ALT Alkaline Phosphatase Total Creatine Kinase C-Reactive Protein Total Protein Albumin TSH Vancomycin Trough Crossmatch 12/18/16 12/18/16 12/18/16 03:14 04:11 05:07 WBC RBC Hgb Hct MCV MCHC RDW Plt Count Lymph % (Auto) [place] % (Auto) [place] # Baso # Seg Neutrophils % Seg Neutrophils # PT INR D-Dimer POC ABG pH POC ABG pCO2 POC ABG pO2 Sodium Potassium Chloride Carbon Dioxide BUN Creatinine Glucose POC Glucose 117 H 108 H 122 H Lactic Acid Calcium Phosphorus Magnesium Direct Bilirubin AST ALT Alkaline Phosphatase Total Creatine Kinase C-Reactive Protein Total Protein Albumin TSH Vancomycin Trough Crossmatch 12/18/16 12/18/16 12/18/16 05:23 06:07 06:07 WBC RBC 3.18 L Hgb 9.6 L Hct 29.0 L D MCV MCHC RDW Plt Count 130 L Lymph % (Auto) [place] % (Auto) [place] # Baso # Seg Neutrophils % Seg Neutrophils # PT INR D-Dimer POC ABG pH 7.485 H POC ABG pCO2 27.5 L POC ABG pO2 275 H Sodium Potassium Chloride Carbon Dioxide BUN Creatinine Glucose POC Glucose Lactic Acid 3.2 H* Calcium Phosphorus Magnesium Direct Bilirubin AST ALT Alkaline Phosphatase Total Creatine Kinase C-Reactive Protein Total Protein Albumin TSH Vancomycin Trough Crossmatch 12/18/16 12/18/16 12/18/16 06:08 06:22 07:26 WBC RBC Hgb Hct MCV MCHC RDW Plt Count Lymph % (Auto) [place] % (Auto) [place] # Baso # Seg Neutrophils % Seg Neutrophils # PT 18.3 H INR 1.52 H D-Dimer POC ABG pH POC ABG pCO2 POC ABG pO2 Sodium Potassium Chloride Carbon Dioxide BUN Creatinine Glucose POC Glucose 159 H 198 H Lactic Acid Calcium Phosphorus Magnesium Direct Bilirubin AST ALT Alkaline Phosphatase Total Creatine Kinase C-Reactive Protein Total Protein Albumin TSH Vancomycin Trough Crossmatch 12/18/16 12/18/16 12/18/16 08:27 09:00 09:30 WBC RBC Hgb Hct MCV MCHC RDW Plt Count Lymph % (Auto) [place] % (Auto) [place] # Baso # Seg Neutrophils % Seg Neutrophils # PT INR D-Dimer POC ABG pH POC ABG pCO2 POC ABG pO2 Sodium 147 H Potassium 5.5 H Chloride Carbon Dioxide 17 L BUN 145 H Creatinine 6.4 H Glucose 213 H POC Glucose 220 H 216 H Lactic Acid Calcium 6.0 L Phosphorus Magnesium Direct Bilirubin AST ALT Alkaline Phosphatase Total Creatine Kinase C-Reactive Protein Total Protein Albumin TSH Vancomycin Trough Crossmatch 12/18/16 12/18/16 12/18/16 10:29 11:11 12:05 WBC RBC Hgb Hct MCV MCHC RDW Plt Count Lymph % (Auto) [place] % (Auto) [place] # Baso # Seg Neutrophils % Seg Neutrophils # PT INR D-Dimer POC ABG pH POC ABG pCO2 POC ABG pO2 Sodium Potassium Chloride Carbon Dioxide BUN Creatinine Glucose POC Glucose 248 H 214 H 165 H Lactic Acid Calcium Phosphorus Magnesium Direct Bilirubin AST ALT Alkaline Phosphatase Total Creatine Kinase C-Reactive Protein Total Protein Albumin TSH Vancomycin Trough Crossmatch 12/18/16 12/18/16 12/18/16 13:06 13:59 14:45 WBC RBC Hgb Hct MCV MCHC RDW Plt Count Lymph % (Auto) [place] % (Auto) [place] # Baso # Seg Neutrophils % Seg Neutrophils # PT INR D-Dimer POC ABG pH POC ABG pCO2 29.2 L POC ABG pO2 Sodium Potassium Chloride Carbon Dioxide BUN Creatinine Glucose POC Glucose 133 H 116 H Lactic Acid Calcium Phosphorus Magnesium Direct Bilirubin AST ALT Alkaline Phosphatase Total Creatine Kinase C-Reactive Protein Total Protein Albumin TSH Vancomycin Trough Crossmatch 12/18/16 12/18/16 12/18/16 14:52 15:14 15:52 WBC RBC Hgb Hct MCV MCHC RDW Plt Count Lymph % (Auto) [place] % (Auto) [place] # Baso # Seg Neutrophils % Seg Neutrophils # PT INR D-Dimer POC ABG pH POC ABG pCO2 24.2 L POC ABG pO2 Sodium Potassium Chloride Carbon Dioxide BUN Creatinine Glucose POC Glucose 139 H 146 H Lactic Acid Calcium Phosphorus Magnesium Direct Bilirubin AST ALT Alkaline Phosphatase Total Creatine Kinase C-Reactive Protein Total Protein Albumin TSH Vancomycin Trough Crossmatch 12/18/16 12/18/16 12/18/16 16:55 16:55 17:18 WBC RBC Hgb 11.4 L Hct 33.9 L MCV MCHC RDW Plt Count Lymph % (Auto) [place] % (Auto) [place] # Baso # Seg Neutrophils % Seg Neutrophils # PT 18.8 H INR 1.58 H D-Dimer POC ABG pH POC ABG pCO2 POC ABG pO2 Sodium Potassium Chloride Carbon Dioxide BUN Creatinine Glucose POC Glucose 144 H Lactic Acid Calcium Phosphorus Magnesium Direct Bilirubin AST ALT Alkaline Phosphatase Total Creatine Kinase C-Reactive Protein Total Protein Albumin TSH Vancomycin Trough Crossmatch 12/18/16 12/18/16 12/18/16 18:12 18:21 20:17 WBC RBC Hgb Hct MCV MCHC RDW Plt Count Lymph % (Auto) [place] % (Auto) [place] # Baso # Seg Neutrophils % Seg Neutrophils # PT INR D-Dimer POC ABG pH POC ABG pCO2 POC ABG pO2 Sodium Potassium Chloride Carbon Dioxide BUN Creatinine Glucose POC Glucose 147 H 120 H Lactic Acid Calcium Phosphorus 5.4 H D Magnesium Direct Bilirubin AST ALT Alkaline Phosphatase Total Creatine Kinase C-Reactive Protein Total Protein Albumin TSH Vancomycin Trough Crossmatch 12/18/16 12/19/16 12/19/16 22:52 00:56 02:09 WBC RBC Hgb Hct MCV MCHC RDW Plt Count Lymph % (Auto) [place] % (Auto) [place] # Baso # Seg Neutrophils % Seg Neutrophils # PT INR D-Dimer POC ABG pH POC ABG pCO2 POC ABG pO2 Sodium Potassium Chloride Carbon Dioxide BUN Creatinine Glucose POC Glucose 124 H 168 H 140 H Lactic Acid Calcium Phosphorus Magnesium Direct Bilirubin AST ALT Alkaline Phosphatase Total Creatine Kinase C-Reactive Protein Total Protein Albumin TSH Vancomycin Trough Crossmatch 12/19/16 12/19/16 12/19/16 04:20 04:20 04:53 WBC 11.8 H RBC Hgb 11.7 L Hct 34.7 L MCV MCHC RDW Plt Count Lymph % (Auto) 11.3 L [place] % (Auto) [place] # Baso # Seg Neutrophils % 83.9 H Seg Neutrophils # 9.9 H PT INR D-Dimer POC ABG pH POC ABG pCO2 POC ABG pO2 Sodium Potassium Chloride Carbon Dioxide 20 L BUN 108 H Creatinine 4.9 H Glucose 131 H POC Glucose 112 H Lactic Acid Calcium 6.3 L Phosphorus Magnesium Direct Bilirubin AST 1058 H ALT 133 H Alkaline Phosphatase Total Creatine Kinase C-Reactive Protein Total Protein 6.1 L Albumin 2.3 L TSH Vancomycin Trough Crossmatch 12/19/16 12/19/16 12/19/16 05:42 06:30 07:37 WBC RBC Hgb Hct MCV MCHC RDW Plt Count Lymph % (Auto) [place] % (Auto) [place] # Baso # Seg Neutrophils % Seg Neutrophils # PT INR D-Dimer POC ABG pH 7.539 H POC ABG pCO2 26.0 L POC ABG pO2 Sodium Potassium Chloride Carbon Dioxide BUN Creatinine Glucose POC Glucose 119 H 126 H Lactic Acid Calcium Phosphorus Magnesium Direct Bilirubin AST ALT Alkaline Phosphatase Total Creatine Kinase C-Reactive Protein Total Protein Albumin TSH Vancomycin Trough Crossmatch 12/19/16 12/19/16 12/19/16 09:59 12:38 14:25 WBC RBC Hgb Hct MCV MCHC RDW Plt Count Lymph % (Auto) [place] % (Auto) [place] # Baso # Seg Neutrophils % Seg Neutrophils # PT INR D-Dimer POC ABG pH POC ABG pCO2 POC ABG pO2 Sodium Potassium Chloride Carbon Dioxide BUN Creatinine Glucose POC Glucose 118 H 139 H 143 H Lactic Acid Calcium Phosphorus Magnesium Direct Bilirubin AST ALT Alkaline Phosphatase Total Creatine Kinase C-Reactive Protein Total Protein Albumin TSH Vancomycin Trough Crossmatch 12/19/16 12/19/16 12/19/16 16:50 18:01 23:04 WBC RBC Hgb Hct MCV MCHC RDW Plt Count Lymph % (Auto) [place] % (Auto) [place] # Baso # Seg Neutrophils % Seg Neutrophils # PT INR D-Dimer POC ABG pH POC ABG pCO2 POC ABG pO2 Sodium Potassium Chloride Carbon Dioxide BUN Creatinine Glucose POC Glucose 253 H 259 H 200 H Lactic Acid Calcium Phosphorus Magnesium Direct Bilirubin AST ALT Alkaline Phosphatase Total Creatine Kinase C-Reactive Protein Total Protein Albumin TSH Vancomycin Trough Crossmatch 12/20/16 12/20/16 12/20/16 00:58 02:57 04:09 WBC RBC Hgb Hct MCV MCHC RDW Plt Count Lymph % (Auto) [place] % (Auto) [place] # Baso # Seg Neutrophils % Seg Neutrophils # PT INR D-Dimer POC ABG pH POC ABG pCO2 POC ABG pO2 Sodium Potassium Chloride Carbon Dioxide BUN Creatinine Glucose POC Glucose 210 H 162 H 109 H Lactic Acid Calcium Phosphorus Magnesium Direct Bilirubin AST ALT Alkaline Phosphatase Total Creatine Kinase C-Reactive Protein Total Protein Albumin TSH Vancomycin Trough Crossmatch 12/20/16 12/20/16 12/20/16 05:11 05:57 07:41 WBC RBC Hgb Hct MCV MCHC RDW Plt Count Lymph % (Auto) [place] % (Auto) [place] # Baso # Seg Neutrophils % Seg Neutrophils # PT INR D-Dimer POC ABG pH 7.560 H POC ABG pCO2 28.2 L POC ABG pO2 Sodium Potassium Chloride Carbon Dioxide BUN Creatinine Glucose POC Glucose 121 H 170 H Lactic Acid Calcium Phosphorus Magnesium Direct Bilirubin AST ALT Alkaline Phosphatase Total Creatine Kinase C-Reactive Protein Total Protein Albumin TSH Vancomycin Trough Crossmatch 12/20/16 12/20/16 12/20/16 08:30 08:30 10:06 WBC RBC 3.36 L Hgb 10.1 L Hct 29.5 L MCV MCHC RDW Plt Count 114 L Lymph % (Auto) [place] % (Auto) [place] # Baso # Seg Neutrophils % Seg Neutrophils # PT INR D-Dimer POC ABG pH POC ABG pCO2 POC ABG pO2 Sodium Potassium Chloride 95.1 L Carbon Dioxide BUN 78 H Creatinine 5.0 H Glucose 181 H POC Glucose 155 H Lactic Acid Calcium 6.2 L Phosphorus Magnesium Direct Bilirubin AST ALT Alkaline Phosphatase Total Creatine Kinase C-Reactive Protein Total Protein Albumin TSH Vancomycin Trough Crossmatch 12/20/16 12/20/16 12/20/16 11:55 14:44 16:24 WBC RBC Hgb Hct MCV MCHC RDW Plt Count Lymph % (Auto) [place] % (Auto) [place] # Baso # Seg Neutrophils % Seg Neutrophils # PT INR D-Dimer POC ABG pH POC ABG pCO2 POC ABG pO2 Sodium Potassium Chloride Carbon Dioxide BUN Creatinine Glucose POC Glucose 124 H 171 H 143 H Lactic Acid Calcium Phosphorus Magnesium Direct Bilirubin AST ALT Alkaline Phosphatase Total Creatine Kinase C-Reactive Protein Total Protein Albumin TSH Vancomycin Trough Crossmatch 12/20/16 12/20/16 12/20/16 18:14 20:25 22:29 WBC RBC Hgb Hct MCV MCHC RDW Plt Count Lymph % (Auto) [place] % (Auto) [place] # Baso # Seg Neutrophils % Seg Neutrophils # PT INR D-Dimer POC ABG pH POC ABG pCO2 POC ABG pO2 Sodium Potassium Chloride Carbon Dioxide BUN Creatinine Glucose POC Glucose 144 H 130 H 146 H Lactic Acid Calcium Phosphorus Magnesium Direct Bilirubin AST ALT Alkaline Phosphatase Total Creatine Kinase C-Reactive Protein Total Protein Albumin TSH Vancomycin Trough Crossmatch 12/21/16 12/21/16 12/21/16 00:30 03:06 04:31 WBC RBC Hgb Hct MCV MCHC RDW Plt Count Lymph % (Auto) [place] % (Auto) [place] # Baso # Seg Neutrophils % Seg Neutrophils # PT INR D-Dimer POC ABG pH POC ABG pCO2 31.3 L POC ABG pO2 Sodium Potassium Chloride Carbon Dioxide BUN Creatinine Glucose POC Glucose 185 H 115 H Lactic Acid Calcium Phosphorus Magnesium Direct Bilirubin AST ALT Alkaline Phosphatase Total Creatine Kinase C-Reactive Protein Total Protein Albumin TSH Vancomycin Trough Crossmatch 12/21/16 12/21/16 12/21/16 04:45 06:38 06:41 WBC RBC Hgb Hct MCV MCHC RDW Plt Count Lymph % (Auto) [place] % (Auto) [place] # Baso # Seg Neutrophils % Seg Neutrophils # PT INR D-Dimer POC ABG pH POC ABG pCO2 POC ABG pO2 Sodium Potassium Chloride Carbon Dioxide BUN Creatinine Glucose POC Glucose 145 H 165 H 145 H Lactic Acid Calcium Phosphorus Magnesium Direct Bilirubin AST ALT Alkaline Phosphatase Total Creatine Kinase C-Reactive Protein Total Protein Albumin TSH Vancomycin Trough Crossmatch 12/21/16 12/21/16 12/21/16 09:35 09:35 10:14 WBC 11.8 H RBC 3.52 L Hgb 10.8 L Hct 31.3 L MCV MCHC RDW 13.0 L Plt Count 130 L Lymph % (Auto) [place] % (Auto) [place] # Baso # Seg Neutrophils % Seg Neutrophils # PT INR D-Dimer POC ABG pH POC ABG pCO2 POC ABG pO2 Sodium Potassium Chloride Carbon Dioxide 21 L BUN 98 H Creatinine 6.2 H Glucose 133 H POC Glucose 178 H Lactic Acid Calcium 6.7 L Phosphorus Magnesium Direct Bilirubin AST ALT Alkaline Phosphatase Total Creatine Kinase C-Reactive Protein Total Protein Albumin TSH Vancomycin Trough Crossmatch 12/21/16 12/21/16 12/21/16 12:22 14:28 15:59 WBC RBC Hgb Hct MCV MCHC RDW Plt Count Lymph % (Auto) [place] % (Auto) [place] # Baso # Seg Neutrophils % Seg Neutrophils # PT INR D-Dimer POC ABG pH POC ABG pCO2 POC ABG pO2 Sodium Potassium Chloride Carbon Dioxide BUN Creatinine Glucose POC Glucose 191 H 139 H 182 H Lactic Acid Calcium Phosphorus Magnesium Direct Bilirubin AST ALT Alkaline Phosphatase Total Creatine Kinase C-Reactive Protein Total Protein Albumin TSH Vancomycin Trough Crossmatch 12/21/16 12/21/16 12/21/16 18:23 20:19 22:02 WBC RBC Hgb Hct MCV MCHC RDW Plt Count Lymph % (Auto) [place] % (Auto) [place] # Baso # Seg Neutrophils % Seg Neutrophils # PT INR D-Dimer POC ABG pH POC ABG pCO2 POC ABG pO2 Sodium Potassium Chloride Carbon Dioxide BUN Creatinine Glucose POC Glucose 167 H 134 H 163 H Lactic Acid Calcium Phosphorus Magnesium Direct Bilirubin AST ALT Alkaline Phosphatase Total Creatine Kinase C-Reactive Protein Total Protein Albumin TSH Vancomycin Trough Crossmatch 12/22/16 12/22/16 12/22/16 00:09 01:55 04:00 WBC 12.0 H RBC 2.93 L Hgb 8.9 L Hct 26.1 L MCV MCHC RDW 13.0 L Plt Count 103 L Lymph % (Auto) [place] % (Auto) [place] # Baso # Seg Neutrophils % Seg Neutrophils # PT INR D-Dimer POC ABG pH POC ABG pCO2 POC ABG pO2 Sodium Potassium Chloride Carbon Dioxide BUN Creatinine Glucose POC Glucose 154 H 111 H Lactic Acid Calcium Phosphorus Magnesium Direct Bilirubin AST ALT Alkaline Phosphatase Total Creatine Kinase C-Reactive Protein Total Protein Albumin TSH Vancomycin Trough Crossmatch 12/22/16 12/22/16 12/22/16 04:00 04:09 05:22 WBC RBC Hgb Hct MCV MCHC RDW Plt Count Lymph % (Auto) [place] % (Auto) [place] # Baso # Seg Neutrophils % Seg Neutrophils # PT INR D-Dimer POC ABG pH POC ABG pCO2 34.7 L POC ABG pO2 Sodium Potassium Chloride 97.0 L Carbon Dioxide 20 L BUN 119 H Creatinine 6.9 H Glucose 143 H POC Glucose 151 H Lactic Acid Calcium 6.3 L Phosphorus Magnesium Direct Bilirubin AST ALT Alkaline Phosphatase Total Creatine Kinase C-Reactive Protein Total Protein Albumin TSH Vancomycin Trough Crossmatch 12/22/16 12/22/16 12/22/16 08:09 09:34 12:26 WBC RBC Hgb 8.9 L Hct 26.5 L MCV MCHC RDW Plt Count 96 L Lymph % (Auto) [place] % (Auto) [place] # Baso # Seg Neutrophils % Seg Neutrophils # PT INR D-Dimer POC ABG pH POC ABG pCO2 POC ABG pO2 Sodium Potassium Chloride Carbon Dioxide BUN Creatinine Glucose POC Glucose 113 H 190 H Lactic Acid Calcium Phosphorus Magnesium Direct Bilirubin AST ALT Alkaline Phosphatase Total Creatine Kinase C-Reactive Protein Total Protein Albumin TSH Vancomycin Trough Crossmatch 12/22/16 12/22/16 12/22/16 14:05 16:25 20:26 WBC RBC Hgb Hct MCV MCHC RDW Plt Count Lymph % (Auto) [place] % (Auto) [place] # Baso # Seg Neutrophils % Seg Neutrophils # PT INR D-Dimer POC ABG pH POC ABG pCO2 POC ABG pO2 Sodium Potassium Chloride Carbon Dioxide BUN Creatinine Glucose POC Glucose 160 H 106 H 106 H Lactic Acid Calcium Phosphorus Magnesium Direct Bilirubin AST ALT Alkaline Phosphatase Total Creatine Kinase C-Reactive Protein Total Protein Albumin TSH Vancomycin Trough Crossmatch 12/22/16 12/23/16 12/23/16 22:22 00:04 04:12 WBC RBC Hgb Hct MCV MCHC RDW Plt Count Lymph % (Auto) [place] % (Auto) [place] # Baso # Seg Neutrophils % Seg Neutrophils # PT INR D-Dimer POC ABG pH POC ABG pCO2 POC ABG pO2 Sodium Potassium Chloride Carbon Dioxide BUN Creatinine Glucose POC Glucose 154 H 171 H 136 H Lactic Acid Calcium Phosphorus Magnesium Direct Bilirubin AST ALT Alkaline Phosphatase Total Creatine Kinase C-Reactive Protein Total Protein Albumin TSH Vancomycin Trough Crossmatch 12/23/16 12/23/16 12/23/16 04:48 05:00 05:00 WBC RBC 2.67 L Hgb 8.1 L Hct 23.7 L MCV MCHC RDW 13.0 L Plt Count 89 L Lymph % (Auto) [place] % (Auto) [place] # Baso # Seg Neutrophils % Seg Neutrophils # PT INR D-Dimer POC ABG pH POC ABG pCO2 POC ABG pO2 123 H Sodium 135 L Potassium Chloride 96.1 L Carbon Dioxide BUN 83 H Creatinine 5.3 H Glucose 126 H POC Glucose Lactic Acid Calcium 7.0 L Phosphorus Magnesium Direct Bilirubin AST ALT Alkaline Phosphatase Total Creatine Kinase C-Reactive Protein Total Protein Albumin TSH Vancomycin Trough Crossmatch 12/23/16 12/23/16 12/23/16 07:30 07:44 11:31 WBC RBC Hgb Hct MCV MCHC RDW Plt Count Lymph % (Auto) [place] % (Auto) [place] # Baso # Seg Neutrophils % Seg Neutrophils # PT INR D-Dimer POC ABG pH POC ABG pCO2 POC ABG pO2 Sodium Potassium Chloride Carbon Dioxide BUN Creatinine Glucose POC Glucose 122 H 142 H Lactic Acid Calcium Phosphorus Magnesium Direct Bilirubin AST ALT Alkaline Phosphatase Total Creatine Kinase C-Reactive Protein Total Protein Albumin TSH Vancomycin Trough Crossmatch See Detail 12/23/16 12/23/16 12/23/16 12:12 13:44 16:07 WBC RBC Hgb Hct MCV MCHC RDW Plt Count Lymph % (Auto) [place] % (Auto) [place] # Baso # Seg Neutrophils % Seg Neutrophils # PT INR D-Dimer POC ABG pH POC ABG pCO2 POC ABG pO2 Sodium Potassium Chloride Carbon Dioxide BUN Creatinine Glucose POC Glucose 117 H 127 H 163 H Lactic Acid Calcium Phosphorus Magnesium Direct Bilirubin AST ALT Alkaline Phosphatase Total Creatine Kinase C-Reactive Protein Total Protein Albumin TSH Vancomycin Trough Crossmatch 12/23/16 12/23/16 12/24/16 17:51 23:53 04:50 WBC RBC Hgb 9.3 L Hct 26.9 L MCV MCHC RDW Plt Count 128 L Lymph % (Auto) [place] % (Auto) [place] # Baso # Seg Neutrophils % Seg Neutrophils # PT INR D-Dimer POC ABG pH POC ABG pCO2 POC ABG pO2 Sodium Potassium Chloride Carbon Dioxide BUN Creatinine Glucose POC Glucose 219 H 144 H Lactic Acid Calcium Phosphorus Magnesium Direct Bilirubin AST ALT Alkaline Phosphatase Total Creatine Kinase C-Reactive Protein Total Protein Albumin TSH Vancomycin Trough Crossmatch 12/24/16 12/24/16 12/24/16 04:50 05:19 11:53 WBC RBC Hgb Hct MCV MCHC RDW Plt Count Lymph % (Auto) [place] % (Auto) [place] # Baso # Seg Neutrophils % Seg Neutrophils # PT INR D-Dimer POC ABG pH POC ABG pCO2 POC ABG pO2 Sodium 134 L Potassium Chloride 94.6 L Carbon Dioxide BUN 61 H Creatinine 4.4 H Glucose 144 H POC Glucose 139 H 129 H Lactic Acid Calcium 7.4 L Phosphorus Magnesium Direct Bilirubin AST ALT Alkaline Phosphatase Total Creatine Kinase C-Reactive Protein Total Protein Albumin TSH Vancomycin Trough Crossmatch 12/24/16 12/25/16 12/25/16 16:59 00:09 05:15 WBC RBC Hgb Hct MCV MCHC RDW Plt Count Lymph % (Auto) [place] % (Auto) [place] # Baso # Seg Neutrophils % Seg Neutrophils # PT INR D-Dimer POC ABG pH POC ABG pCO2 POC ABG pO2 Sodium 147 H D Potassium Chloride 107.8 H Carbon Dioxide BUN 45 H Creatinine 3.6 H Glucose 150 H POC Glucose 175 H 160 H Lactic Acid Calcium 7.5 L Phosphorus Magnesium Direct Bilirubin AST ALT Alkaline Phosphatase Total Creatine Kinase C-Reactive Protein Total Protein Albumin TSH Vancomycin Trough Crossmatch 12/26/16 12/26/16 12/27/16 06:00 06:00 05:11 WBC RBC Hgb 8.0 L Hct 24.1 L MCV MCHC RDW Plt Count Lymph % (Auto) [place] % (Auto) [place] # Baso # Seg Neutrophils % Seg Neutrophils # PT INR D-Dimer POC ABG pH POC ABG pCO2 POC ABG pO2 Sodium 135 L Potassium Chloride 95.4 L Carbon Dioxide BUN 70 H 56 H Creatinine 5.4 H 4.2 H Glucose 140 H 190 H POC Glucose Lactic Acid Calcium 7.3 L 7.5 L Phosphorus Magnesium Direct Bilirubin AST ALT Alkaline Phosphatase Total Creatine Kinase C-Reactive Protein Total Protein Albumin TSH Vancomycin Trough Crossmatch 12/27/16 05:11 WBC RBC 2.73 L Hgb 8.2 L Hct 24.0 L MCV MCHC RDW 12.9 L Plt Count 126 L Lymph % (Auto) [place] % (Auto) [place] # Baso # Seg Neutrophils % Seg Neutrophils # PT INR D-Dimer POC ABG pH POC ABG pCO2 POC ABG pO2 Sodium Potassium Chloride Carbon Dioxide BUN Creatinine Glucose POC Glucose Lactic Acid Calcium Phosphorus Magnesium Direct Bilirubin AST ALT Alkaline Phosphatase Total Creatine Kinase C-Reactive Protein Total Protein Albumin TSH Vancomycin Trough Crossmatch Chest x-ray: report reviewed (Mild bibasilar atelectasis.) Allied health notes reviewed: RT
--- NOTE | 2016-12-27 14:43 | Cat Scan Report ---
FINAL REPORT EXAM: CT CHEST WO CON HISTORY: fever TECHNIQUE: Spiral CT scanning of the chest. No IV contrast administered. Multiplanar reformations. PRIORS: 24 December 2016. FINDINGS: Chest: Examination limited due to lack of IV contrast administration. The lungs show mild and partially confluent opacities in the bilateral lung bases about the same. Multiple and partially calcified pleural plaques again scattered bilaterally. No discrete parenchymal mass, pleural effusions or apparent pneumothorax. ET and enteric tubes again noted. Mild cardiomegaly stable. No apparent aneurysm or pseudoaneurysm. No significant lymph node enlargement or axillary adenopathy. Upper abdomen will be evaluated on dedicated CT abdomen and pelvis examination of same date. IMPRESSION: 1. Findings which may represent bibasilar atelectasis, mild infiltrates or postinflammatory change of uncertain etiology, but without significant interval change. Correlate clinically. 2. Bilateral pleural plaquing consistent with prior asbestos exposure.
--- NOTE | 2016-12-27 14:59 | Cat Scan Report ---
FINAL REPORT EXAM: CT ABDOMEN PELVIS WO CON HISTORY: fever TECHNIQUE: Spiral CT scanning of the abdomen and pelvis. No oral or IV contrast administered. Multiplanar reformations. PRIORS: None. FINDINGS: Abdomen: Examination limited due to lack of contrast administration. Lung bases evaluated on CT chest examination of same date. Enteric tube extends into the duodenum. Gallbladder distended and contains tiny gallstones in the gallbladder neck without significant pericholecystic fluid. Liver demonstrates diffusely nodular margins without focal abnormality. 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 Pancreas grossly unremarkable. Kidneys grossly unremarkable. Adrenal glands grossly unremarkable. Pelvis: Bowel grossly unremarkable, with diverticular change in the sigmoid colon. Appendix within normal limits. Prominent or mildly enlarged lymph nodes scattered along the retroperitoneum and into the pelvis, with mild generalized fat stranding, particularly in the pelvis and presacral space. No significant free peritoneal fluid or loculated fluid collection. Aortoiliac calcification without aneurysmal dilatation. Degenerative change in the lumbar spine. Mild, asymmetric enlargement of right inferior rectus abdominus muscle, nonspecific. Fat-containing, bilateral inguinal hernias. Mild subcutaneous edema scattered in the trunk and pelvis suggesting anasarca. Ackerman catheter balloon noted within decompressed urinary bladder. Left inguinal central venous catheter extends to distal IVC. IMPRESSION: 1. Cholelithiasis. Some 2. Findings compatible with cirrhotic liver and sequelae of portal venous hypertension, including splenomegaly. 3. Sigmoid colon diverticulosis. 4. Mild lymph node enlargement scattered along the retroperitoneum and into the pelvis may be reactive, but nonspecific. Followup may be warranted. 5. Mild, asymmetric enlargement of right inferior rectus abdominus muscle may be anatomic versus small hematoma. Correlate clinically. 6. Please see above for further details.
--- NOTE | 2016-12-27 19:26 | Progress Note ---
Subjective Date of service: 12/27/16 Principal diagnosis: Acute hypoxemic respiratory failure, shock Interval history: Fever resolving PHYSICAL EXAM Vital signs - temp 102.2 chest - mild b/l rhonchi cvs - s1s2 abd - bs+ LABS See lab section ASSESSMENT 1. Pneumonia 2. Acute respiratory failure 3. Encephalopathy 4. CHF RECOMMENDATION 1. cbc/bmp in am 2. CONTINUE ORAL BACTRIM. Objective - Constitutional Vitals: Vital Signs Temp Pulse Resp BP Pulse Ox 98.5 F 98 H 11 L 113/63 96 12/27/16 16:00 12/27/16 18:16 12/27/16 18:16 12/27/16 18:16 12/27/16 18:16 Temperature -Last 24 Hours Temperature 98.5 F Temperature 98.6 F Temperature 97.5 F Temperature 97.6 F Temperature 96.6 F - Labs CBC & Chem 7: 12/27/16 05:11 12/27/16 05:11 Labs: Abnormal lab results 12/27/16 12/27/16 Range/Units 05:11 05:11 RBC 2.73 L (3.65-5.03) M/mm3 Hgb 8.2 L (11.8-15.2) gm/dl Hct 24.0 L (35.5-45.6) % RDW 12.9 L (13.2-15.2) % Plt Count 126 L (140-440) K/mm3 Sodium 135 L (137-145) mmol/L Chloride 95.4 L (98-107) mmol/L BUN 56 H (9-20) mg/dL Creatinine 4.2 H (0.8-1.5) mg/dL Glucose 190 H (75-100) mg/dL Calcium 7.5 L (8.4-10.2) mg/dL
[2016-12-28] MEDS: HEPARIN SUB-Q SCH ×3 (05:30→22:00)
[2016-12-28 06:04] LABS: BUN/Creatinine Ratio 13.21; Calcium 7.5 mg/dL (8.4-10.2); Chloride 94.1 mmol/L (98-107); Potassium 3.7 mmol/L (3.6-5.0)
[2016-12-28] MEDS: DUONEB 0.5 MG-3 MG/3 ML SOLN IH SCH ×4 (06:22→20:31)
--- NOTE | 2016-12-28 09:18 | Progress Note ---
Assessment and Plan Patient alert, awake. Patient just placed on pressure support ventilation. Patient is on Pressure support 10 cm H20 pressure, FIO2 30%. O2 satuaration 96%. - Patient Problems (1) Acute hypoxemic respiratory failure Current Visit: Yes Status: Acute Plan to address problem: Patient is on pressure support 10 cm H20 Pressure. FIO2 30%.. Albuterol/atrovent aerosol treatments q 6 hours. Continue S/C Heparin. Continue Protonix. (2) Acute kidney failure with tubular necrosis Current Visit: Yes Status: Acute Plan to address problem: Management as per nephrology. (3) Altered mental status Current Visit: Yes Status: Acute Qualifiers: Altered mental status type: A Coma depth: C Coma timing: C Plan to address problem: Management as per primary care. (4) Cardiomyopathy Current Visit: Yes Status: Acute Plan to address problem: Management as per cardiology. (5) Tobacco abuse Current Visit: No Status: Chronic Plan to address problem: Counselled to stop smoking. Subjective Date of service: 12/28/16 Principal diagnosis: Acute hypoxemic respiratory failure, shock Interval history: Patient alert, awake. Patient just placed on pressure support ventilation. Patient is on Pressure support 10 cm H20 pressure, FIO2 30%. O2 satuaration 96%. Objective Vital Signs - 12hr 12/27/16 12/27/16 12/27/16 21:16 21:24 21:30 Temperature Pulse Rate 97 H 98 H 94 H Pulse Rate [ Bilateral Throughout] Respiratory 13 12 Rate Respiratory Rate [Bilateral Throughout] Respiratory Rate [throat] Blood Pressure 118/68 118/68 109/63 O2 Sat by Pulse 98 98 97 Oximetry 12/27/16 12/27/16 12/27/16 21:46 22:00 22:10 Temperature Pulse Rate 95 H 93 H Pulse Rate [ 95 H 98 H Bilateral Throughout] Respiratory 11 L 17 Rate Respiratory 21 21 Rate [Bilateral Throughout] Respiratory 16 Rate [throat] Blood Pressure 109/63 120/66 O2 Sat by Pulse 100 98 Oximetry 12/27/16 12/27/16 12/27/16 22:16 22:30 22:46 Temperature Pulse Rate 90 94 H 90 Pulse Rate [ Bilateral Throughout] Respiratory 18 20 18 Rate Respiratory Rate [Bilateral Throughout] Respiratory Rate [throat] Blood Pressure 120/66 118/66 118/66 O2 Sat by Pulse 99 96 98 Oximetry 12/27/16 12/27/16 12/27/16 23:00 23:15 23:16 Temperature Pulse Rate 91 H 91 H 91 H Pulse Rate [ Bilateral Throughout] Respiratory 13 20 Rate Respiratory Rate [Bilateral Throughout] Respiratory Rate [throat] Blood Pressure 116/63 116/63 O2 Sat by Pulse 98 98 99 Oximetry 12/27/16 12/27/16 12/27/16 23:30 23:46 23:52 Temperature Pulse Rate 88 92 H 92 H Pulse Rate [ Bilateral Throughout] Respiratory 15 12 16 Rate Respiratory Rate [Bilateral Throughout] Respiratory Rate [throat] Blood Pressure 100/58 100/58 100/58 O2 Sat by Pulse 99 97 98 Oximetry 12/28/16 12/28/16 12/28/16 00:00 00:16 00:30 Temperature 98.6 F Pulse Rate 97 H 90 88 Pulse Rate [ Bilateral Throughout] Respiratory 14 16 16 Rate Respiratory Rate [Bilateral Throughout] Respiratory Rate [throat] Blood Pressure 121/67 121/67 112/59 O2 Sat by Pulse 96 97 96 Oximetry 12/28/16 12/28/16 12/28/16 00:46 01:00 01:16 Temperature Pulse Rate 89 92 H 95 H Pulse Rate [ Bilateral Throughout] Respiratory 19 14 14 Rate Respiratory Rate [Bilateral Throughout] Respiratory Rate [throat] Blood Pressure 112/59 109/65 109/65 O2 Sat by Pulse 99 96 99 Oximetry 12/28/16 12/28/16 12/28/16 01:30 01:38 01:46 Temperature Pulse Rate 95 H 101 H 89 Pulse Rate [ Bilateral Throughout] Respiratory 16 14 Rate Respiratory Rate [Bilateral Throughout] Respiratory Rate [throat] Blood Pressure 108/63 115/69 108/63 O2 Sat by Pulse 98 99 97 Oximetry 12/28/16 12/28/16 12/28/16 02:00 02:16 02:30 Temperature Pulse Rate 90 88 87 Pulse Rate [ Bilateral Throughout] Respiratory 16 17 16 Rate Respiratory Rate [Bilateral Throughout] Respiratory Rate [throat] Blood Pressure 116/65 116/65 106/57 O2 Sat by Pulse 97 99 98 Oximetry 12/28/16 12/28/16 12/28/16 02:46 03:00 03:16 Temperature Pulse Rate 88 86 86 Pulse Rate [ Bilateral Throughout] Respiratory 11 L 19 19 Rate Respiratory Rate [Bilateral Throughout] Respiratory Rate [throat] Blood Pressure 116/65 100/55 106/57 O2 Sat by Pulse 100 99 99 Oximetry 12/28/16 12/28/16 12/28/16 03:30 03:46 04:00 Temperature 98.5 F Pulse Rate 96 H 95 H 90 Pulse Rate [ Bilateral Throughout] Respiratory 15 15 15 Rate Respiratory Rate [Bilateral Throughout] Respiratory Rate [throat] Blood Pressure 116/61 116/61 114/67 O2 Sat by Pulse 98 99 97 Oximetry 12/28/16 12/28/16 12/28/16 04:15 04:16 04:30 Temperature Pulse Rate 94 H 92 H 94 H Pulse Rate [ Bilateral Throughout] Respiratory 18 18 Rate Respiratory Rate [Bilateral Throughout] Respiratory Rate [throat] Blood Pressure 114/67 119/61 O2 Sat by Pulse 98 98 96 Oximetry 12/28/16 12/28/16 12/28/16 04:46 05:00 05:16 Temperature Pulse Rate 93 H 92 H 88 Pulse Rate [ Bilateral Throughout] Respiratory 13 15 17 Rate Respiratory Rate [Bilateral Throughout] Respiratory Rate [throat] Blood Pressure 119/61 123/69 123/69 O2 Sat by Pulse 98 96 98 Oximetry 12/28/16 12/28/16 12/28/16 05:30 05:46 06:00 Temperature Pulse Rate 96 H 96 H 91 H Pulse Rate [ Bilateral Throughout] Respiratory 15 18 17 Rate Respiratory Rate [Bilateral Throughout] Respiratory Rate [throat] Blood Pressure 128/69 128/69 117/67 O2 Sat by Pulse 90 95 96 Oximetry 12/28/16 12/28/16 12/28/16 06:14 06:16 06:30 Temperature Pulse Rate 96 H 92 H 94 H Pulse Rate [ Bilateral Throughout] Respiratory 15 16 Rate Respiratory Rate [Bilateral Throughout] Respiratory Rate [throat] Blood Pressure 123/69 117/67 121/66 O2 Sat by Pulse 97 96 Oximetry 12/28/16 12/28/16 12/28/16 07:00 07:30 08:00 Temperature 99.4 F Pulse Rate 97 H 95 H 96 H Pulse Rate [ Bilateral Throughout] Respiratory 17 14 12 Rate Respiratory Rate [Bilateral Throughout] Respiratory Rate [throat] Blood Pressure 134/77 125/70 132/72 O2 Sat by Pulse 96 96 94 Oximetry 12/28/16 08:30 Temperature Pulse Rate 94 H Pulse Rate [ Bilateral Throughout] Respiratory 11 L Rate Respiratory Rate [Bilateral Throughout] Respiratory Rate [throat] Blood Pressure 134/71 O2 Sat by Pulse 96 Oximetry Constitutional: no acute distress, other (sedated) Eyes: non-icteric ENT: oropharynx moist Neck: supple, no lymphadenopathy, no JVD Effort: mildly labored Ascultation: Bilateral: diminished breath sounds, rales (basilar and scant), rhonchi Cardiovascular: regular rate and rhythm Gastrointestinal: normoactive bowel sounds, hypoactive bowel sounds, soft, non- tender, non-distended Integumentary: normal Extremities: no cyanosis, pink and warm, pulses normal, no ischemia or petechiae Neurologic: non-focal exam (grossly), pupils equal and round, unable to assess Psychiatric: other (sedated) CBC and BMP: 12/27/16 05:11 12/28/16 05:10 ABG, PT/INR, D-dimer: ABG POC ABG pH 7.392 (7.35-7.45) 12/23/16 04:48 POC ABG pCO2 37.6 (35-45) 12/23/16 04:48 POC ABG pO2 123 (80-105) H 12/23/16 04:48 POC ABG HCO3 22.9 12/23/16 04:48 POC ABG Total CO2 24 12/23/16 04:48 POC ABG O2 Sat 99 12/23/16 04:48 PT/INR, D-dimer PT 18.8 Sec. (12.2-14.9) H 12/18/16 16:55 INR 1.58 (0.87-1.13) H 12/18/16 16:55 D-Dimer 586.01 ng/mlDDU (0-234) H 12/14/16 18:03 Abnormal lab findings: Abnormal Labs 12/07/16 12/07/16 12/07/16 00:35 05:30 05:30 WBC RBC Hgb Hct MCV MCHC RDW 13.0 L Plt Count 93 L Lymph % (Auto) [place] % (Auto) 11.2 H [place] # 1.1 H Baso # Seg Neutrophils % 71.3 H Seg Neutrophils # PT INR D-Dimer POC ABG pH POC ABG pCO2 POC ABG pO2 Sodium Potassium Chloride Carbon Dioxide BUN Creatinine 0.6 L Glucose 168 H POC Glucose Lactic Acid Calcium 7.8 L Phosphorus Magnesium Direct Bilirubin 0.7 H AST ALT Alkaline Phosphatase Total Creatine Kinase 343 H C-Reactive Protein Total Protein Albumin 2.6 L TSH Vancomycin Trough Crossmatch 12/07/16 12/07/16 12/07/16 06:58 16:41 18:30 WBC RBC Hgb Hct MCV MCHC RDW Plt Count Lymph % (Auto) [place] % (Auto) [place] # Baso # Seg Neutrophils % Seg Neutrophils # PT INR D-Dimer POC ABG pH POC ABG pCO2 POC ABG pO2 Sodium Potassium Chloride Carbon Dioxide BUN Creatinine Glucose POC Glucose 175 H Lactic Acid Calcium Phosphorus Magnesium Direct Bilirubin AST ALT Alkaline Phosphatase Total Creatine Kinase 242 H C-Reactive Protein 7.70 H Total Protein Albumin TSH Vancomycin Trough Crossmatch 12/09/16 12/10/16 12/10/16 11:58 06:05 12:24 WBC RBC Hgb Hct MCV MCHC RDW Plt Count Lymph % (Auto) [place] % (Auto) [place] # Baso # Seg Neutrophils % Seg Neutrophils # PT INR D-Dimer POC ABG pH 7.485 H POC ABG pCO2 POC ABG pO2 Sodium Potassium Chloride Carbon Dioxide BUN Creatinine Glucose POC Glucose 141 H 183 H Lactic Acid Calcium Phosphorus Magnesium Direct Bilirubin AST ALT Alkaline Phosphatase Total Creatine Kinase C-Reactive Protein Total Protein Albumin TSH Vancomycin Trough Crossmatch 12/10/16 12/10/16 12/11/16 17:47 23:21 06:10 WBC RBC Hgb Hct MCV MCHC RDW Plt Count Lymph % (Auto) [place] % (Auto) [place] # Baso # Seg Neutrophils % Seg Neutrophils # PT INR D-Dimer POC ABG pH POC ABG pCO2 POC ABG pO2 Sodium Potassium Chloride Carbon Dioxide BUN Creatinine Glucose POC Glucose 176 H 240 H 252 H Lactic Acid Calcium Phosphorus Magnesium Direct Bilirubin AST ALT Alkaline Phosphatase Total Creatine Kinase C-Reactive Protein Total Protein Albumin TSH Vancomycin Trough Crossmatch 12/11/16 12/11/16 12/11/16 08:29 09:14 11:37 WBC RBC Hgb Hct MCV MCHC RDW 13.1 L Plt Count Lymph % (Auto) [place] % (Auto) [place] # Baso # Seg Neutrophils % Seg Neutrophils # PT INR D-Dimer POC ABG pH POC ABG pCO2 POC ABG pO2 Sodium Potassium Chloride Carbon Dioxide BUN Creatinine Glucose POC Glucose 253 H 284 H Lactic Acid Calcium Phosphorus Magnesium Direct Bilirubin AST ALT Alkaline Phosphatase Total Creatine Kinase C-Reactive Protein Total Protein Albumin TSH Vancomycin Trough Crossmatch 12/11/16 12/11/1617 16:12 17:54 23:35 WBC RBC Hgb Hct MCV MCHC RDW Plt Count Lymph % (Auto) [place] % (Auto) [place] # Baso # Seg Neutrophils % Seg Neutrophils # PT INR D-Dimer POC ABG pH POC ABG pCO2 POC ABG pO2 Sodium Potassium Chloride Carbon Dioxide BUN 37 H Creatinine Glucose 258 H POC Glucose 227 H 264 H Lactic Acid Calcium 8.3 L Phosphorus Magnesium Direct Bilirubin AST ALT Alkaline Phosphatase Total Creatine Kinase C-Reactive Protein Total Protein Albumin 2.6 L TSH Vancomycin Trough Crossmatch 12/12/16 12/12/16 12/12/16 04:37 06:06 10:12 WBC RBC Hgb Hct MCV MCHC RDW Plt Count Lymph % (Auto) [place] % (Auto) [place] # Baso # Seg Neutrophils % Seg Neutrophils # PT INR D-Dimer POC ABG pH 7.500 H POC ABG pCO2 POC ABG pO2 69 L Sodium Potassium Chloride Carbon Dioxide BUN Creatinine Glucose POC Glucose 288 H Lactic Acid Calcium Phosphorus Magnesium Direct Bilirubin AST ALT Alkaline Phosphatase Total Creatine Kinase C-Reactive Protein Total Protein Albumin TSH Vancomycin Trough Crossmatch 12/12/16 12/12/16 12/12/16 13:08 17:46 23:31 WBC RBC Hgb Hct MCV MCHC RDW Plt Count Lymph % (Auto) [place] % (Auto) [place] # Baso # Seg Neutrophils % Seg Neutrophils # PT INR D-Dimer POC ABG pH POC ABG pCO2 POC ABG pO2 Sodium Potassium Chloride Carbon Dioxide BUN Creatinine Glucose POC Glucose 215 H 234 H 241 H Lactic Acid Calcium Phosphorus Magnesium Direct Bilirubin AST ALT Alkaline Phosphatase Total Creatine Kinase C-Reactive Protein Total Protein Albumin TSH Vancomycin Trough Crossmatch 12/13/16 12/13/16 12/13/16 05:38 11:44 17:32 WBC RBC Hgb Hct MCV MCHC RDW Plt Count Lymph % (Auto) [place] % (Auto) [place] # Baso # Seg Neutrophils % Seg Neutrophils # PT INR D-Dimer POC ABG pH POC ABG pCO2 POC ABG pO2 Sodium Potassium Chloride Carbon Dioxide BUN Creatinine Glucose POC Glucose 215 H 237 H 215 H Lactic Acid Calcium Phosphorus Magnesium Direct Bilirubin AST ALT Alkaline Phosphatase Total Creatine Kinase C-Reactive Protein Total Protein Albumin TSH Vancomycin Trough Crossmatch 12/14/16 12/14/16 12/14/16 00:22 05:40 12:03 WBC RBC Hgb Hct MCV MCHC RDW Plt Count Lymph % (Auto) [place] % (Auto) [place] # Baso # Seg Neutrophils % Seg Neutrophils # PT INR D-Dimer POC ABG pH POC ABG pCO2 POC ABG pO2 Sodium Potassium Chloride Carbon Dioxide BUN Creatinine Glucose POC Glucose 268 H 301 H 312 H Lactic Acid Calcium Phosphorus Magnesium Direct Bilirubin AST ALT Alkaline Phosphatase Total Creatine Kinase C-Reactive Protein Total Protein Albumin TSH Vancomycin Trough Crossmatch 12/14/16 12/14/16 12/14/16 18:03 18:03 18:03 WBC RBC Hgb Hct MCV MCHC RDW 12.9 L Plt Count Lymph % (Auto) [place] % (Auto) 8.0 H [place] # Baso # Seg Neutrophils % 72.4 H Seg Neutrophils # PT INR D-Dimer 586.01 H POC ABG pH POC ABG pCO2 POC ABG pO2 Sodium 150 H Potassium Chloride 109.1 H Carbon Dioxide BUN 50 H Creatinine Glucose 261 H POC Glucose Lactic Acid Calcium Phosphorus Magnesium Direct Bilirubin AST ALT Alkaline Phosphatase Total Creatine Kinase C-Reactive Protein Total Protein Albumin TSH Vancomycin Trough Crossmatch 12/14/16 12/14/16 12/14/16 18:30 21:55 23:59 WBC RBC Hgb Hct MCV MCHC RDW Plt Count Lymph % (Auto) [place] % (Auto) [place] # Baso # Seg Neutrophils % Seg Neutrophils # PT INR D-Dimer POC ABG pH POC ABG pCO2 POC ABG pO2 Sodium Potassium Chloride Carbon Dioxide BUN Creatinine Glucose POC Glucose 321 H 258 H 262 H Lactic Acid Calcium Phosphorus Magnesium Direct Bilirubin AST ALT Alkaline Phosphatase Total Creatine Kinase C-Reactive Protein Total Protein Albumin TSH Vancomycin Trough Crossmatch 12/15/16 12/15/16 12/15/16 05:28 06:04 09:15 WBC RBC Hgb Hct MCV MCHC RDW Plt Count Lymph % (Auto) [place] % (Auto) [place] # Baso # Seg Neutrophils % Seg Neutrophils # PT INR D-Dimer POC ABG pH POC ABG pCO2 POC ABG pO2 Sodium Potassium Chloride Carbon Dioxide BUN Creatinine Glucose POC Glucose 274 H 276 H Lactic Acid Calcium Phosphorus Magnesium Direct Bilirubin AST ALT Alkaline Phosphatase Total Creatine Kinase C-Reactive Protein Total Protein Albumin TSH 0.220 L Vancomycin Trough Crossmatch 12/15/16 12/15/16 12/15/16 11:59 13:40 18:06 WBC RBC Hgb Hct MCV MCHC RDW Plt Count Lymph % (Auto) [place] % (Auto) [place] # Baso # Seg Neutrophils % Seg Neutrophils # PT INR D-Dimer POC ABG pH POC ABG pCO2 33.3 L POC ABG pO2 70 L Sodium Potassium Chloride Carbon Dioxide BUN Creatinine Glucose POC Glucose 273 H Lactic Acid Calcium Phosphorus Magnesium Direct Bilirubin AST ALT Alkaline Phosphatase Total Creatine Kinase C-Reactive Protein Total Protein Albumin TSH 0.204 L Vancomycin Trough Crossmatch 12/15/16 12/15/16 12/16/16 18:14 21:26 02:08 WBC RBC Hgb Hct MCV MCHC RDW Plt Count Lymph % (Auto) [place] % (Auto) [place] # Baso # Seg Neutrophils % Seg Neutrophils # PT INR D-Dimer POC ABG pH 7.341 L POC ABG pCO2 POC ABG pO2 223 H Sodium Potassium Chloride Carbon Dioxide BUN Creatinine Glucose POC Glucose 234 H 371 H Lactic Acid Calcium Phosphorus Magnesium Direct Bilirubin AST ALT Alkaline Phosphatase Total Creatine Kinase C-Reactive Protein Total Protein Albumin TSH Vancomycin Trough Crossmatch 12/16/16 12/16/16 12/16/16 05:12 05:18 09:40 WBC RBC Hgb Hct MCV MCHC RDW Plt Count Lymph % (Auto) [place] % (Auto) [place] # Baso # Seg Neutrophils % Seg Neutrophils # PT INR D-Dimer POC ABG pH POC ABG pCO2 32.5 L POC ABG pO2 Sodium 154 H Potassium Chloride 116.8 H Carbon Dioxide 18 L D BUN 92 H Creatinine 3.0 H D Glucose 364 H POC Glucose 357 H Lactic Acid Calcium 8.2 L Phosphorus Magnesium Direct Bilirubin AST ALT Alkaline Phosphatase Total Creatine Kinase C-Reactive Protein Total Protein Albumin TSH Vancomycin Trough Crossmatch 12/16/16 12/16/16 12/16/16 13:40 18:27 18:34 WBC RBC Hgb Hct MCV MCHC RDW Plt Count Lymph % (Auto) [place] % (Auto) [place] # Baso # Seg Neutrophils % Seg Neutrophils # PT INR D-Dimer POC ABG pH POC ABG pCO2 POC ABG pO2 Sodium Potassium Chloride Carbon Dioxide BUN Creatinine Glucose POC Glucose 391 H 472 H Lactic Acid Calcium Phosphorus Magnesium Direct Bilirubin AST ALT Alkaline Phosphatase Total Creatine Kinase C-Reactive Protein Total Protein Albumin TSH Vancomycin Trough 33.7 H Crossmatch 12/17/16 12/17/16 12/17/16 00:38 01:54 05:53 WBC RBC Hgb Hct MCV MCHC RDW Plt Count Lymph % (Auto) [place] % (Auto) [place] # Baso # Seg Neutrophils % Seg Neutrophils # PT INR D-Dimer POC ABG pH 7.234 L POC ABG pCO2 34.5 L POC ABG pO2 50 L Sodium Potassium Chloride Carbon Dioxide BUN Creatinine Glucose POC Glucose 386 H 400 H Lactic Acid Calcium Phosphorus Magnesium Direct Bilirubin AST ALT Alkaline Phosphatase Total Creatine Kinase C-Reactive Protein Total Protein Albumin TSH Vancomycin Trough Crossmatch 12/17/16 12/17/16 12/17/16 06:45 06:45 07:45 WBC 12.3 H RBC Hgb 11.7 L Hct MCV 97 H D MCHC 31 L RDW Plt Count Lymph % (Auto) [place] % (Auto) 14.4 H [place] # 1.8 H Baso # 0.2 H Seg Neutrophils % Seg Neutrophils # 8.2 H PT INR D-Dimer POC ABG pH POC ABG pCO2 POC ABG pO2 Sodium Potassium 7.6 H* D Chloride 110.8 H Carbon Dioxide 14 L BUN 121 H Creatinine 5.4 H D Glucose 566 H* POC Glucose > 500 H Lactic Acid Calcium 6.2 L D Phosphorus Magnesium Direct Bilirubin AST 323 H ALT Alkaline Phosphatase 27 L Total Creatine Kinase C-Reactive Protein Total Protein Albumin 2.3 L TSH Vancomycin Trough Crossmatch 12/17/16 12/17/16 12/17/16 08:51 09:10 09:11 WBC RBC Hgb Hct MCV MCHC RDW Plt Count Lymph % (Auto) [place] % (Auto) [place] # Baso # Seg Neutrophils % Seg Neutrophils # PT INR D-Dimer POC ABG pH 7.113 L POC ABG pCO2 46.1 H POC ABG pO2 186 H Sodium Potassium Chloride Carbon Dioxide BUN Creatinine Glucose POC Glucose > 500 H Lactic Acid Calcium Phosphorus 9.5 H Magnesium 2.5 H Direct Bilirubin AST ALT Alkaline Phosphatase Total Creatine Kinase C-Reactive Protein Total Protein Albumin TSH Vancomycin Trough Crossmatch 12/17/16 12/17/16 12/17/16 10:18 10:50 11:17 WBC RBC Hgb Hct MCV MCHC RDW Plt Count Lymph % (Auto) [place] % (Auto) [place] # Baso # Seg Neutrophils % Seg Neutrophils # PT INR D-Dimer POC ABG pH POC ABG pCO2 POC ABG pO2 Sodium Potassium 6.1 H* Chloride 110.1 H Carbon Dioxide 14 L BUN 128 H Creatinine 5.5 H Glucose 580 H* POC Glucose > 500 H > 500 H Lactic Acid Calcium Phosphorus Magnesium Direct Bilirubin AST ALT Alkaline Phosphatase Total Creatine Kinase C-Reactive Protein Total Protein Albumin TSH Vancomycin Trough Crossmatch 12/17/16 12/17/16 12/17/16 12:09 12:30 13:36 WBC RBC Hgb Hct MCV MCHC RDW Plt Count Lymph % (Auto) [place] % (Auto) [place] # Baso # Seg Neutrophils % Seg Neutrophils # PT INR D-Dimer POC ABG pH POC ABG pCO2 POC ABG pO2 Sodium Potassium 5.6 H Chloride 110.4 H Carbon Dioxide 14 L BUN 138 H Creatinine 5.3 H Glucose 528 H* POC Glucose 428 H 426 H Lactic Acid Calcium 6.8 L D Phosphorus Magnesium Direct Bilirubin AST ALT Alkaline Phosphatase Total Creatine Kinase C-Reactive Protein Total Protein Albumin TSH Vancomycin Trough Crossmatch 12/17/16 12/17/16 12/17/16 14:11 14:25 14:45 WBC RBC Hgb Hct MCV MCHC RDW Plt Count Lymph % (Auto) [place] % (Auto) [place] # Baso # Seg Neutrophils % Seg Neutrophils # PT INR D-Dimer POC ABG pH 7.297 L POC ABG pCO2 34.2 L POC ABG pO2 114 H Sodium 146 H Potassium 5.3 H Chloride 109.3 H Carbon Dioxide 15 L BUN 128 H Creatinine 5.5 H Glucose 426 H POC Glucose 422 H Lactic Acid Calcium 6.7 L Phosphorus Magnesium Direct Bilirubin AST ALT Alkaline Phosphatase Total Creatine Kinase C-Reactive Protein Total Protein Albumin TSH Vancomycin Trough Crossmatch 12/17/16 12/17/16 12/17/16 15:07 16:03 16:56 WBC RBC Hgb Hct MCV MCHC RDW Plt Count Lymph % (Auto) [place] % (Auto) [place] # Baso # Seg Neutrophils % Seg Neutrophils # PT INR D-Dimer POC ABG pH POC ABG pCO2 POC ABG pO2 Sodium Potassium Chloride Carbon Dioxide BUN Creatinine Glucose POC Glucose 392 H 450 H 352 H Lactic Acid Calcium Phosphorus Magnesium Direct Bilirubin AST ALT Alkaline Phosphatase Total Creatine Kinase C-Reactive Protein Total Protein Albumin TSH Vancomycin Trough Crossmatch 12/17/16 12/17/16 12/17/16 18:00 18:10 18:38 WBC RBC Hgb Hct MCV MCHC RDW Plt Count Lymph % (Auto) [place] % (Auto) [place] # Baso # Seg Neutrophils % Seg Neutrophils # PT INR D-Dimer POC ABG pH POC ABG pCO2 POC ABG pO2 Sodium 147 H Potassium Chloride 109.7 H Carbon Dioxide 15 L BUN 140 H Creatinine 5.2 H Glucose 301 H POC Glucose 318 H 256 H Lactic Acid Calcium 6.5 L Phosphorus Magnesium Direct Bilirubin AST ALT Alkaline Phosphatase Total Creatine Kinase C-Reactive Protein Total Protein Albumin TSH Vancomycin Trough Crossmatch 12/17/16 12/17/16 12/17/16 19:31 20:00 20:44 WBC RBC Hgb Hct MCV MCHC RDW Plt Count Lymph % (Auto) [place] % (Auto) [place] # Baso # Seg Neutrophils % Seg Neutrophils # PT 17.7 H INR 1.46 H D-Dimer POC ABG pH POC ABG pCO2 30.5 L POC ABG pO2 134 H Sodium Potassium Chloride Carbon Dioxide BUN Creatinine Glucose POC Glucose 189 H Lactic Acid Calcium Phosphorus Magnesium Direct Bilirubin AST ALT Alkaline Phosphatase Total Creatine Kinase C-Reactive Protein Total Protein Albumin TSH Vancomycin Trough Crossmatch 12/17/16 12/17/16 12/18/16 21:59 23:18 00:15 WBC RBC Hgb Hct MCV MCHC RDW Plt Count Lymph % (Auto) [place] % (Auto) [place] # Baso # Seg Neutrophils % Seg Neutrophils # PT INR D-Dimer POC ABG pH POC ABG pCO2 POC ABG pO2 Sodium 147 H Potassium 5.2 H Chloride 107.9 H Carbon Dioxide 18 L BUN 143 H Creatinine 5.6 H Glucose 152 H POC Glucose 191 H 132 H Lactic Acid Calcium 6.3 L Phosphorus Magnesium Direct Bilirubin AST ALT Alkaline Phosphatase Total Creatine Kinase C-Reactive Protein Total Protein Albumin TSH Vancomycin Trough Crossmatch 12/18/16 12/18/16 12/18/16 00:18 01:08 02:35 WBC RBC Hgb Hct MCV MCHC RDW Plt Count Lymph % (Auto) [place] % (Auto) [place] # Baso # Seg Neutrophils % Seg Neutrophils # PT INR D-Dimer POC ABG pH POC ABG pCO2 POC ABG pO2 Sodium Potassium Chloride Carbon Dioxide BUN Creatinine Glucose POC Glucose 190 H 157 H 144 H Lactic Acid Calcium Phosphorus Magnesium Direct Bilirubin AST ALT Alkaline Phosphatase Total Creatine Kinase C-Reactive Protein Total Protein Albumin TSH Vancomycin Trough Crossmatch 12/18/16 12/18/16 12/18/16 03:14 04:11 05:07 WBC RBC Hgb Hct MCV MCHC RDW Plt Count Lymph % (Auto) [place] % (Auto) [place] # Baso # Seg Neutrophils % Seg Neutrophils # PT INR D-Dimer POC ABG pH POC ABG pCO2 POC ABG pO2 Sodium Potassium Chloride Carbon Dioxide BUN Creatinine Glucose POC Glucose 117 H 108 H 122 H Lactic Acid Calcium Phosphorus Magnesium Direct Bilirubin AST ALT Alkaline Phosphatase Total Creatine Kinase C-Reactive Protein Total Protein Albumin TSH Vancomycin Trough Crossmatch 12/18/16 12/18/16 12/18/16 05:23 06:07 06:07 WBC RBC 3.18 L Hgb 9.6 L Hct 29.0 L D MCV MCHC RDW Plt Count 130 L Lymph % (Auto) [place] % (Auto) [place] # Baso # Seg Neutrophils % Seg Neutrophils # PT INR D-Dimer POC ABG pH 7.485 H POC ABG pCO2 27.5 L POC ABG pO2 275 H Sodium Potassium Chloride Carbon Dioxide BUN Creatinine Glucose POC Glucose Lactic Acid 3.2 H* Calcium Phosphorus Magnesium Direct Bilirubin AST ALT Alkaline Phosphatase Total Creatine Kinase C-Reactive Protein Total Protein Albumin TSH Vancomycin Trough Crossmatch 12/18/16 12/18/16 12/18/16 06:08 06:22 07:26 WBC RBC Hgb Hct MCV MCHC RDW Plt Count Lymph % (Auto) [place] % (Auto) [place] # Baso # Seg Neutrophils % Seg Neutrophils # PT 18.3 H INR 1.52 H D-Dimer POC ABG pH POC ABG pCO2 POC ABG pO2 Sodium Potassium Chloride Carbon Dioxide BUN Creatinine Glucose POC Glucose 159 H 198 H Lactic Acid Calcium Phosphorus Magnesium Direct Bilirubin AST ALT Alkaline Phosphatase Total Creatine Kinase C-Reactive Protein Total Protein Albumin TSH Vancomycin Trough Crossmatch 12/18/16 12/18/16 12/18/16 08:27 09:00 09:30 WBC RBC Hgb Hct MCV MCHC RDW Plt Count Lymph % (Auto) [place] % (Auto) [place] # Baso # Seg Neutrophils % Seg Neutrophils # PT INR D-Dimer POC ABG pH POC ABG pCO2 POC ABG pO2 Sodium 147 H Potassium 5.5 H Chloride Carbon Dioxide 17 L BUN 145 H Creatinine 6.4 H Glucose 213 H POC Glucose 220 H 216 H Lactic Acid Calcium 6.0 L Phosphorus Magnesium Direct Bilirubin AST ALT Alkaline Phosphatase Total Creatine Kinase C-Reactive Protein Total Protein Albumin TSH Vancomycin Trough Crossmatch 12/18/16 12/18/16 12/18/16 10:29 11:11 12:05 WBC RBC Hgb Hct MCV MCHC RDW Plt Count Lymph % (Auto) [place] % (Auto) [place] # Baso # Seg Neutrophils % Seg Neutrophils # PT INR D-Dimer POC ABG pH POC ABG pCO2 POC ABG pO2 Sodium Potassium Chloride Carbon Dioxide BUN Creatinine Glucose POC Glucose 248 H 214 H 165 H Lactic Acid Calcium Phosphorus Magnesium Direct Bilirubin AST ALT Alkaline Phosphatase Total Creatine Kinase C-Reactive Protein Total Protein Albumin TSH Vancomycin Trough Crossmatch 12/18/16 12/18/16 12/18/16 13:06 13:59 14:45 WBC RBC Hgb Hct MCV MCHC RDW Plt Count Lymph % (Auto) [place] % (Auto) [place] # Baso # Seg Neutrophils % Seg Neutrophils # PT INR D-Dimer POC ABG pH POC ABG pCO2 29.2 L POC ABG pO2 Sodium Potassium Chloride Carbon Dioxide BUN Creatinine Glucose POC Glucose 133 H 116 H Lactic Acid Calcium Phosphorus Magnesium Direct Bilirubin AST ALT Alkaline Phosphatase Total Creatine Kinase C-Reactive Protein Total Protein Albumin TSH Vancomycin Trough Crossmatch 12/18/16 12/18/16 12/18/16 14:52 15:14 15:52 WBC RBC Hgb Hct MCV MCHC RDW Plt Count Lymph % (Auto) [place] % (Auto) [place] # Baso # Seg Neutrophils % Seg Neutrophils # PT INR D-Dimer POC ABG pH POC ABG pCO2 24.2 L POC ABG pO2 Sodium Potassium Chloride Carbon Dioxide BUN Creatinine Glucose POC Glucose 139 H 146 H Lactic Acid Calcium Phosphorus Magnesium Direct Bilirubin AST ALT Alkaline Phosphatase Total Creatine Kinase C-Reactive Protein Total Protein Albumin TSH Vancomycin Trough Crossmatch 12/18/16 12/18/16 12/18/16 16:55 16:55 17:18 WBC RBC Hgb 11.4 L Hct 33.9 L MCV MCHC RDW Plt Count Lymph % (Auto) [place] % (Auto) [place] # Baso # Seg Neutrophils % Seg Neutrophils # PT 18.8 H INR 1.58 H D-Dimer POC ABG pH POC ABG pCO2 POC ABG pO2 Sodium Potassium Chloride Carbon Dioxide BUN Creatinine Glucose POC Glucose 144 H Lactic Acid Calcium Phosphorus Magnesium Direct Bilirubin AST ALT Alkaline Phosphatase Total Creatine Kinase C-Reactive Protein Total Protein Albumin TSH Vancomycin Trough Crossmatch 12/18/16 12/18/16 12/18/16 18:12 18:21 20:17 WBC RBC Hgb Hct MCV MCHC RDW Plt Count Lymph % (Auto) [place] % (Auto) [place] # Baso # Seg Neutrophils % Seg Neutrophils # PT INR D-Dimer POC ABG pH POC ABG pCO2 POC ABG pO2 Sodium Potassium Chloride Carbon Dioxide BUN Creatinine Glucose POC Glucose 147 H 120 H Lactic Acid Calcium Phosphorus 5.4 H D Magnesium Direct Bilirubin AST ALT Alkaline Phosphatase Total Creatine Kinase C-Reactive Protein Total Protein Albumin TSH Vancomycin Trough Crossmatch 12/18/16 12/19/16 12/19/16 22:52 00:56 02:09 WBC RBC Hgb Hct MCV MCHC RDW Plt Count Lymph % (Auto) [place] % (Auto) [place] # Baso # Seg Neutrophils % Seg Neutrophils # PT INR D-Dimer POC ABG pH POC ABG pCO2 POC ABG pO2 Sodium Potassium Chloride Carbon Dioxide BUN Creatinine Glucose POC Glucose 124 H 168 H 140 H Lactic Acid Calcium Phosphorus Magnesium Direct Bilirubin AST ALT Alkaline Phosphatase Total Creatine Kinase C-Reactive Protein Total Protein Albumin TSH Vancomycin Trough Crossmatch 12/19/16 12/19/16 12/19/16 04:20 04:20 04:53 WBC 11.8 H RBC Hgb 11.7 L Hct 34.7 L MCV MCHC RDW Plt Count Lymph % (Auto) 11.3 L [place] % (Auto) [place] # Baso # Seg Neutrophils % 83.9 H Seg Neutrophils # 9.9 H PT INR D-Dimer POC ABG pH POC ABG pCO2 POC ABG pO2 Sodium Potassium Chloride Carbon Dioxide 20 L BUN 108 H Creatinine 4.9 H Glucose 131 H POC Glucose 112 H Lactic Acid Calcium 6.3 L Phosphorus Magnesium Direct Bilirubin AST 1058 H ALT 133 H Alkaline Phosphatase Total Creatine Kinase C-Reactive Protein Total Protein 6.1 L Albumin 2.3 L TSH Vancomycin Trough Crossmatch 12/19/16 12/19/16 12/19/16 05:42 06:30 07:37 WBC RBC Hgb Hct MCV MCHC RDW Plt Count Lymph % (Auto) [place] % (Auto) [place] # Baso # Seg Neutrophils % Seg Neutrophils # PT INR D-Dimer POC ABG pH 7.539 H POC ABG pCO2 26.0 L POC ABG pO2 Sodium Potassium Chloride Carbon Dioxide BUN Creatinine Glucose POC Glucose 119 H 126 H Lactic Acid Calcium Phosphorus Magnesium Direct Bilirubin AST ALT Alkaline Phosphatase Total Creatine Kinase C-Reactive Protein Total Protein Albumin TSH Vancomycin Trough Crossmatch 12/19/16 12/19/16 12/19/16 09:59 12:38 14:25 WBC RBC Hgb Hct MCV MCHC RDW Plt Count Lymph % (Auto) [place] % (Auto) [place] # Baso # Seg Neutrophils % Seg Neutrophils # PT INR D-Dimer POC ABG pH POC ABG pCO2 POC ABG pO2 Sodium Potassium Chloride Carbon Dioxide BUN Creatinine Glucose POC Glucose 118 H 139 H 143 H Lactic Acid Calcium Phosphorus Magnesium Direct Bilirubin AST ALT Alkaline Phosphatase Total Creatine Kinase C-Reactive Protein Total Protein Albumin TSH Vancomycin Trough Crossmatch 12/19/16 12/19/16 12/19/16 16:50 18:01 23:04 WBC RBC Hgb Hct MCV MCHC RDW Plt Count Lymph % (Auto) [place] % (Auto) [place] # Baso # Seg Neutrophils % Seg Neutrophils # PT INR D-Dimer POC ABG pH POC ABG pCO2 POC ABG pO2 Sodium Potassium Chloride Carbon Dioxide BUN Creatinine Glucose POC Glucose 253 H 259 H 200 H Lactic Acid Calcium Phosphorus Magnesium Direct Bilirubin AST ALT Alkaline Phosphatase Total Creatine Kinase C-Reactive Protein Total Protein Albumin TSH Vancomycin Trough Crossmatch 12/20/16 12/20/16 12/20/16 00:58 02:57 04:09 WBC RBC Hgb Hct MCV MCHC RDW Plt Count Lymph % (Auto) [place] % (Auto) [place] # Baso # Seg Neutrophils % Seg Neutrophils # PT INR D-Dimer POC ABG pH POC ABG pCO2 POC ABG pO2 Sodium Potassium Chloride Carbon Dioxide BUN Creatinine Glucose POC Glucose 210 H 162 H 109 H Lactic Acid Calcium Phosphorus Magnesium Direct Bilirubin AST ALT Alkaline Phosphatase Total Creatine Kinase C-Reactive Protein Total Protein Albumin TSH Vancomycin Trough Crossmatch 12/20/16 12/20/16 12/20/16 05:11 05:57 07:41 WBC RBC Hgb Hct MCV MCHC RDW Plt Count Lymph % (Auto) [place] % (Auto) [place] # Baso # Seg Neutrophils % Seg Neutrophils # PT INR D-Dimer POC ABG pH 7.560 H POC ABG pCO2 28.2 L POC ABG pO2 Sodium Potassium Chloride Carbon Dioxide BUN Creatinine Glucose POC Glucose 121 H 170 H Lactic Acid Calcium Phosphorus Magnesium Direct Bilirubin AST ALT Alkaline Phosphatase Total Creatine Kinase C-Reactive Protein Total Protein Albumin TSH Vancomycin Trough Crossmatch 12/20/16 12/20/16 12/20/16 08:30 08:30 10:06 WBC RBC 3.36 L Hgb 10.1 L Hct 29.5 L MCV MCHC RDW Plt Count 114 L Lymph % (Auto) [place] % (Auto) [place] # Baso # Seg Neutrophils % Seg Neutrophils # PT INR D-Dimer POC ABG pH POC ABG pCO2 POC ABG pO2 Sodium Potassium Chloride 95.1 L Carbon Dioxide BUN 78 H Creatinine 5.0 H Glucose 181 H POC Glucose 155 H Lactic Acid Calcium 6.2 L Phosphorus Magnesium Direct Bilirubin AST ALT Alkaline Phosphatase Total Creatine Kinase C-Reactive Protein Total Protein Albumin TSH Vancomycin Trough Crossmatch 12/20/16 12/20/16 12/20/16 11:55 14:44 16:24 WBC RBC Hgb Hct MCV MCHC RDW Plt Count Lymph % (Auto) [place] % (Auto) [place] # Baso # Seg Neutrophils % Seg Neutrophils # PT INR D-Dimer POC ABG pH POC ABG pCO2 POC ABG pO2 Sodium Potassium Chloride Carbon Dioxide BUN Creatinine Glucose POC Glucose 124 H 171 H 143 H Lactic Acid Calcium Phosphorus Magnesium Direct Bilirubin AST ALT Alkaline Phosphatase Total Creatine Kinase C-Reactive Protein Total Protein Albumin TSH Vancomycin Trough Crossmatch 12/20/16 12/20/16 12/20/16 18:14 20:25 22:29 WBC RBC Hgb Hct MCV MCHC RDW Plt Count Lymph % (Auto) [place] % (Auto) [place] # Baso # Seg Neutrophils % Seg Neutrophils # PT INR D-Dimer POC ABG pH POC ABG pCO2 POC ABG pO2 Sodium Potassium Chloride Carbon Dioxide BUN Creatinine Glucose POC Glucose 144 H 130 H 146 H Lactic Acid Calcium Phosphorus Magnesium Direct Bilirubin AST ALT Alkaline Phosphatase Total Creatine Kinase C-Reactive Protein Total Protein Albumin TSH Vancomycin Trough Crossmatch 12/21/16 12/21/16 12/21/16 00:30 03:06 04:31 WBC RBC Hgb Hct MCV MCHC RDW Plt Count Lymph % (Auto) [place] % (Auto) [place] # Baso # Seg Neutrophils % Seg Neutrophils # PT INR D-Dimer POC ABG pH POC ABG pCO2 31.3 L POC ABG pO2 Sodium Potassium Chloride Carbon Dioxide BUN Creatinine Glucose POC Glucose 185 H 115 H Lactic Acid Calcium Phosphorus Magnesium Direct Bilirubin AST ALT Alkaline Phosphatase Total Creatine Kinase C-Reactive Protein Total Protein Albumin TSH Vancomycin Trough Crossmatch 12/21/16 12/21/16 12/21/16 04:45 06:38 06:41 WBC RBC Hgb Hct MCV MCHC RDW Plt Count Lymph % (Auto) [place] % (Auto) [place] # Baso # Seg Neutrophils % Seg Neutrophils # PT INR D-Dimer POC ABG pH POC ABG pCO2 POC ABG pO2 Sodium Potassium Chloride Carbon Dioxide BUN Creatinine Glucose POC Glucose 145 H 165 H 145 H Lactic Acid Calcium Phosphorus Magnesium Direct Bilirubin AST ALT Alkaline Phosphatase Total Creatine Kinase C-Reactive Protein Total Protein Albumin TSH Vancomycin Trough Crossmatch 12/21/16 12/21/16 12/21/16 09:35 09:35 10:14 WBC 11.8 H RBC 3.52 L Hgb 10.8 L Hct 31.3 L MCV MCHC RDW 13.0 L Plt Count 130 L Lymph % (Auto) [place] % (Auto) [place] # Baso # Seg Neutrophils % Seg Neutrophils # PT INR D-Dimer POC ABG pH POC ABG pCO2 POC ABG pO2 Sodium Potassium Chloride Carbon Dioxide 21 L BUN 98 H Creatinine 6.2 H Glucose 133 H POC Glucose 178 H Lactic Acid Calcium 6.7 L Phosphorus Magnesium Direct Bilirubin AST ALT Alkaline Phosphatase Total Creatine Kinase C-Reactive Protein Total Protein Albumin TSH Vancomycin Trough Crossmatch 12/21/16 12/21/16 12/21/16 12:22 14:28 15:59 WBC RBC Hgb Hct MCV MCHC RDW Plt Count Lymph % (Auto) [place] % (Auto) [place] # Baso # Seg Neutrophils % Seg Neutrophils # PT INR D-Dimer POC ABG pH POC ABG pCO2 POC ABG pO2 Sodium Potassium Chloride Carbon Dioxide BUN Creatinine Glucose POC Glucose 191 H 139 H 182 H Lactic Acid Calcium Phosphorus Magnesium Direct Bilirubin AST ALT Alkaline Phosphatase Total Creatine Kinase C-Reactive Protein Total Protein Albumin TSH Vancomycin Trough Crossmatch 12/21/16 12/21/16 12/21/16 18:23 20:19 22:02 WBC RBC Hgb Hct MCV MCHC RDW Plt Count Lymph % (Auto) [place] % (Auto) [place] # Baso # Seg Neutrophils % Seg Neutrophils # PT INR D-Dimer POC ABG pH POC ABG pCO2 POC ABG pO2 Sodium Potassium Chloride Carbon Dioxide BUN Creatinine Glucose POC Glucose 167 H 134 H 163 H Lactic Acid Calcium Phosphorus Magnesium Direct Bilirubin AST ALT Alkaline Phosphatase Total Creatine Kinase C-Reactive Protein Total Protein Albumin TSH Vancomycin Trough Crossmatch 12/22/16 12/22/16 12/22/16 00:09 01:55 04:00 WBC 12.0 H RBC 2.93 L Hgb 8.9 L Hct 26.1 L MCV MCHC RDW 13.0 L Plt Count 103 L Lymph % (Auto) [place] % (Auto) [place] # Baso # Seg Neutrophils % Seg Neutrophils # PT INR D-Dimer POC ABG pH POC ABG pCO2 POC ABG pO2 Sodium Potassium Chloride Carbon Dioxide BUN Creatinine Glucose POC Glucose 154 H 111 H Lactic Acid Calcium Phosphorus Magnesium Direct Bilirubin AST ALT Alkaline Phosphatase Total Creatine Kinase C-Reactive Protein Total Protein Albumin TSH Vancomycin Trough Crossmatch 12/22/16 12/22/16 12/22/16 04:00 04:09 05:22 WBC RBC Hgb Hct MCV MCHC RDW Plt Count Lymph % (Auto) [place] % (Auto) [place] # Baso # Seg Neutrophils % Seg Neutrophils # PT INR D-Dimer POC ABG pH POC ABG pCO2 34.7 L POC ABG pO2 Sodium Potassium Chloride 97.0 L Carbon Dioxide 20 L BUN 119 H Creatinine 6.9 H Glucose 143 H POC Glucose 151 H Lactic Acid Calcium 6.3 L Phosphorus Magnesium Direct Bilirubin AST ALT Alkaline Phosphatase Total Creatine Kinase C-Reactive Protein Total Protein Albumin TSH Vancomycin Trough Crossmatch 12/22/16 12/22/16 12/22/16 08:09 09:34 12:26 WBC RBC Hgb 8.9 L Hct 26.5 L MCV MCHC RDW Plt Count 96 L Lymph % (Auto) [place] % (Auto) [place] # Baso # Seg Neutrophils % Seg Neutrophils # PT INR D-Dimer POC ABG pH POC ABG pCO2 POC ABG pO2 Sodium Potassium Chloride Carbon Dioxide BUN Creatinine Glucose POC Glucose 113 H 190 H Lactic Acid Calcium Phosphorus Magnesium Direct Bilirubin AST ALT Alkaline Phosphatase Total Creatine Kinase C-Reactive Protein Total Protein Albumin TSH Vancomycin Trough Crossmatch 12/22/16 12/22/16 12/22/16 14:05 16:25 20:26 WBC RBC Hgb Hct MCV MCHC RDW Plt Count Lymph % (Auto) [place] % (Auto) [place] # Baso # Seg Neutrophils % Seg Neutrophils # PT INR D-Dimer POC ABG pH POC ABG pCO2 POC ABG pO2 Sodium Potassium Chloride Carbon Dioxide BUN Creatinine Glucose POC Glucose 160 H 106 H 106 H Lactic Acid Calcium Phosphorus Magnesium Direct Bilirubin AST ALT Alkaline Phosphatase Total Creatine Kinase C-Reactive Protein Total Protein Albumin TSH Vancomycin Trough Crossmatch 12/22/16 12/23/16 12/23/16 22:22 00:04 04:12 WBC RBC Hgb Hct MCV MCHC RDW Plt Count Lymph % (Auto) [place] % (Auto) [place] # Baso # Seg Neutrophils % Seg Neutrophils # PT INR D-Dimer POC ABG pH POC ABG pCO2 POC ABG pO2 Sodium Potassium Chloride Carbon Dioxide BUN Creatinine Glucose POC Glucose 154 H 171 H 136 H Lactic Acid Calcium Phosphorus Magnesium Direct Bilirubin AST ALT Alkaline Phosphatase Total Creatine Kinase C-Reactive Protein Total Protein Albumin TSH Vancomycin Trough Crossmatch 12/23/16 12/23/16 12/23/16 04:48 05:00 05:00 WBC RBC 2.67 L Hgb 8.1 L Hct 23.7 L MCV MCHC RDW 13.0 L Plt Count 89 L Lymph % (Auto) [place] % (Auto) [place] # Baso # Seg Neutrophils % Seg Neutrophils # PT INR D-Dimer POC ABG pH POC ABG pCO2 POC ABG pO2 123 H Sodium 135 L Potassium Chloride 96.1 L Carbon Dioxide BUN 83 H Creatinine 5.3 H Glucose 126 H POC Glucose Lactic Acid Calcium 7.0 L Phosphorus Magnesium Direct Bilirubin AST ALT Alkaline Phosphatase Total Creatine Kinase C-Reactive Protein Total Protein Albumin TSH Vancomycin Trough Crossmatch 12/23/16 12/23/16 12/23/16 07:30 07:44 11:31 WBC RBC Hgb Hct MCV MCHC RDW Plt Count Lymph % (Auto) [place] % (Auto) [place] # Baso # Seg Neutrophils % Seg Neutrophils # PT INR D-Dimer POC ABG pH POC ABG pCO2 POC ABG pO2 Sodium Potassium Chloride Carbon Dioxide BUN Creatinine Glucose POC Glucose 122 H 142 H Lactic Acid Calcium Phosphorus Magnesium Direct Bilirubin AST ALT Alkaline Phosphatase Total Creatine Kinase C-Reactive Protein Total Protein Albumin TSH Vancomycin Trough Crossmatch See Detail 12/23/16 12/23/16 12/23/16 12:12 13:44 16:07 WBC RBC Hgb Hct MCV MCHC RDW Plt Count Lymph % (Auto) [place] % (Auto) [place] # Baso # Seg Neutrophils % Seg Neutrophils # PT INR D-Dimer POC ABG pH POC ABG pCO2 POC ABG pO2 Sodium Potassium Chloride Carbon Dioxide BUN Creatinine Glucose POC Glucose 117 H 127 H 163 H Lactic Acid Calcium Phosphorus Magnesium Direct Bilirubin AST ALT Alkaline Phosphatase Total Creatine Kinase C-Reactive Protein Total Protein Albumin TSH Vancomycin Trough Crossmatch 12/23/16 12/23/16 12/24/16 17:51 23:53 04:50 WBC RBC Hgb 9.3 L Hct 26.9 L MCV MCHC RDW Plt Count 128 L Lymph % (Auto) [place] % (Auto) [place] # Baso # Seg Neutrophils % Seg Neutrophils # PT INR D-Dimer POC ABG pH POC ABG pCO2 POC ABG pO2 Sodium Potassium Chloride Carbon Dioxide BUN Creatinine Glucose POC Glucose 219 H 144 H Lactic Acid Calcium Phosphorus Magnesium Direct Bilirubin AST ALT Alkaline Phosphatase Total Creatine Kinase C-Reactive Protein Total Protein Albumin TSH Vancomycin Trough Crossmatch 12/24/16 12/24/16 12/24/16 04:50 05:19 11:53 WBC RBC Hgb Hct MCV MCHC RDW Plt Count Lymph % (Auto) [place] % (Auto) [place] # Baso # Seg Neutrophils % Seg Neutrophils # PT INR D-Dimer POC ABG pH POC ABG pCO2 POC ABG pO2 Sodium 134 L Potassium Chloride 94.6 L Carbon Dioxide BUN 61 H Creatinine 4.4 H Glucose 144 H POC Glucose 139 H 129 H Lactic Acid Calcium 7.4 L Phosphorus Magnesium Direct Bilirubin AST ALT Alkaline Phosphatase Total Creatine Kinase C-Reactive Protein Total Protein Albumin TSH Vancomycin Trough Crossmatch 12/24/16 12/25/16 12/25/16 16:59 00:09 05:15 WBC RBC Hgb Hct MCV MCHC RDW Plt Count Lymph % (Auto) [place] % (Auto) [place] # Baso # Seg Neutrophils % Seg Neutrophils # PT INR D-Dimer POC ABG pH POC ABG pCO2 POC ABG pO2 Sodium 147 H D Potassium Chloride 107.8 H Carbon Dioxide BUN 45 H Creatinine 3.6 H Glucose 150 H POC Glucose 175 H 160 H Lactic Acid Calcium 7.5 L Phosphorus Magnesium Direct Bilirubin AST ALT Alkaline Phosphatase Total Creatine Kinase C-Reactive Protein Total Protein Albumin TSH Vancomycin Trough Crossmatch 12/26/16 12/26/16 12/27/16 06:00 06:00 05:11 WBC RBC Hgb 8.0 L Hct 24.1 L MCV MCHC RDW Plt Count Lymph % (Auto) [place] % (Auto) [place] # Baso # Seg Neutrophils % Seg Neutrophils # PT INR D-Dimer POC ABG pH POC ABG pCO2 POC ABG pO2 Sodium 135 L Potassium Chloride 95.4 L Carbon Dioxide BUN 70 H 56 H Creatinine 5.4 H 4.2 H Glucose 140 H 190 H POC Glucose Lactic Acid Calcium 7.3 L 7.5 L Phosphorus Magnesium Direct Bilirubin AST ALT Alkaline Phosphatase Total Creatine Kinase C-Reactive Protein Total Protein Albumin TSH Vancomycin Trough Crossmatch 12/27/16 12/28/16 05:11 05:10 WBC RBC 2.73 L Hgb 8.2 L Hct 24.0 L MCV MCHC RDW 12.9 L Plt Count 126 L Lymph % (Auto) [place] % (Auto) [place] # Baso # Seg Neutrophils % Seg Neutrophils # PT INR D-Dimer POC ABG pH POC ABG pCO2 POC ABG pO2 Sodium 136 L Potassium Chloride 94.1 L Carbon Dioxide BUN 74 H Creatinine 5.6 H Glucose 177 H POC Glucose Lactic Acid Calcium 7.5 L Phosphorus Magnesium Direct Bilirubin AST ALT Alkaline Phosphatase Total Creatine Kinase C-Reactive Protein Total Protein Albumin TSH Vancomycin Trough Crossmatch Allied health notes reviewed: RT
[2016-12-28] MEDS: Centrum Liq PO SCH (09:40)
[2016-12-28] MEDS: BACTRIM DS PO SCH ×2 (09:40→22:00)
[2016-12-28] MEDS: PROTONIX PO SCH (09:40)
[2016-12-28] MEDS: VITAMIN B-1 PO SCH (09:40)
[2016-12-28] MEDS: BABY ASPIRIN PO SCH (09:40)
[2016-12-28] MEDS: FOLVITE PO SCH (09:40)
[2016-12-28] MEDS: REGLAN IV SCH ×2 (09:41→22:00)
--- NOTE | 2016-12-28 10:42 | Progress Note ---
Assessment and Plan Assessment and plan: Septic shock due to pneumonia.. Continue supportive care, Bactrim. Off Levophed. BP stable Acute Respiratory failure due to Pneumonia. He is still intubated on ventilator. Pulmonology following. Acute metabolic encephalopathy. CT head unremarkable. Neurology following. Acute on chronic systolic CHF. EF 30% Cont aspirin, statin. Beta blockers on hold for now because of hypotension. cardiology following. Acute kidney Injury secondary to acute tubular necrosis from septic shock. On hemodialysis. Still oliguric. Nephrology following. Cr 5.6 Hyperkalemia. This is now resolved. Potassium 3.7 today. DKA with diabetes mellitus type 2. Now on Levemir Pneumonia due to strep pneumonia Bacteremia. One out of two blood cultures for micrococcus. Now on Bactrim. Sinus tachycardia. due to septic shock. Lopressor iv prn Hypernatremia. Hyponatremia. resolved Alcohol abuse. Hepatitis C He is still critically ill. Still intubated and needs to be in ICU History Interval history: Patient still intubated, No fever past 48 hours. Hospitalist Physical - Physical exam Narrative exam: Gen: Intubated, on ventilator, HEENT: normocephalic,atraumatic,still intubated Neck : no JVD Lungs: bilateral crackles, no wheezes Heart: S1 and S2 regular, no murmurs no gallops,no rubs Abdomen: soft nontender, nondistended, normal bowel sounds Extremities: no edema, no clubbing or cyanosis Neuro: Intubated, awake,follows commands - Constitutional Vitals: Temp Pulse Resp BP Pulse Ox 99.4 F 91 H 21 107/59 96 12/28/16 08:00 12/28/16 10:16 12/28/16 10:16 12/28/16 10:16 12/28/16 10:16 General appearance: Present: other (intubated) Results - Labs CBC & Chem 7: 12/27/16 05:11 12/28/16 05:10 Labs: Laboratory Last Values WBC 7.4 K/mm3 (4.5-11.0) 12/27/16 05:11 RBC 2.73 M/mm3 (3.65-5.03) L 12/27/16 05:11 Hgb 8.2 gm/dl (11.8-15.2) L 12/27/16 05:11 Hct 24.0 % (35.5-45.6) L 12/27/16 05:11 MCV 88 fl (84-94) 12/27/16 05:11 MCH 30 pg (28-32) 12/27/16 05:11 MCHC 34 % (32-34) 12/27/16 05:11 RDW 12.9 % (13.2-15.2) L 12/27/16 05:11 Plt Count 126 K/mm3 (140-440) L 12/27/16 05:11 Lymph % (Auto) 11.3 % (13.4-35.0) L 12/19/16 04:20 [place] % (Auto) 4.0 % (0.0-7.3) 12/19/16 04:20 Eos % (Auto) 0.3 % (0.0-4.3) 12/19/16 04:20 Baso % (Auto) 0.5 % (0.0-1.8) 12/19/16 04:20 Lymph # 1.3 K/mm3 (1.2-5.4) 12/19/16 04:20 [place] # 0.5 K/mm3 (0.0-0.8) 12/19/16 04:20 Eos # 0.0 K/mm3 (0.0-0.4) 12/19/16 04:20 Baso # 0.1 K/mm3 (0.0-0.1) 12/19/16 04:20 Seg Neutrophils % 83.9 % (40.0-70.0) H 12/19/16 04:20 Seg Neutrophils # 9.9 K/mm3 (1.8-7.7) H 12/19/16 04:20 PT 18.8 Sec. (12.2-14.9) H 12/18/16 16:55 INR 1.58 (0.87-1.13) H 12/18/16 16:55 APTT 34.5 Sec. (24.2-36.6) 12/18/16 16:55 D-Dimer 586.01 ng/mlDDU (0-234) H 12/14/16 18:03 POC ABG pH 7.392 (7.35-7.45) 12/23/16 04:48 POC ABG pCO2 37.6 (35-45) 12/23/16 04:48 POC ABG pO2 123 (80-105) H 12/23/16 04:48 POC ABG HCO3 22.9 12/23/16 04:48 POC ABG Total CO2 24 12/23/16 04:48 POC ABG O2 Sat 99 12/23/16 04:48 POC ABG Base Excess -2 12/23/16 04:48 FiO2 40 % 12/23/16 04:48 Sodium 136 mmol/L (137-145) L 12/28/16 05:10 Potassium 3.7 mmol/L (3.6-5.0) 12/28/16 05:10 Chloride 94.1 mmol/L (98-107) L 12/28/16 05:10 Carbon Dioxide 22 mmol/L (22-30) 12/28/16 05:10 Anion Gap 24 mmol/L 12/28/16 05:10 BUN 74 mg/dL (9-20) H 12/28/16 05:10 Creatinine 5.6 mg/dL (0.8-1.5) H 12/28/16 05:10 Estimated GFR 10 ml/min 12/28/16 05:10 BUN/Creatinine Ratio 13.21 % 12/28/16 05:10 Glucose 177 mg/dL (75-100) H 12/28/16 05:10 POC Glucose 160 (70-105) H 12/25/16 00:09 Lactic Acid 1.9 mmol/L (0.7-2.0) 12/18/16 09:00 Calcium 7.5 mg/dL (8.4-10.2) L 12/28/16 05:10 Phosphorus 5.4 mg/dL (2.5-4.5) H D 12/18/16 18:21 Magnesium 2.5 mg/dL (1.7-2.3) H 12/17/16 09:10 Total Bilirubin 0.9 mg/dL (0.1-1.2) 12/19/16 04:20 Direct Bilirubin 0.7 mg/dL (0-0.2) H 12/07/16 05:30 Indirect Bilirubin 0.4 mg/dL 12/07/16 05:30 AST 1058 units/L (5-40) H 12/19/16 04:20 ALT 133 units/L (7-56) H 12/19/16 04:20 Alkaline Phosphatase 35 units/L (35-129) 12/19/16 04:20 Ammonia 42.0 umol/L (25-60) 12/06/16 16:07 Total Creatine Kinase 242 units/L (55-170) H 12/07/16 06:58 CK-MB (CK-2) 2.8 ng/mL (0.0-4.0) 12/07/16 06:58 CK-MB (CK-2) Rel Index 1.1 (0-4) 12/07/16 06:58 Troponin T < 0.010 ng/mL (0.00-0.029) 12/07/16 06:58 C-Reactive Protein 1.20 mg/dL (0.00-1.30) 12/15/16 11:37 Total Protein 6.1 g/dL (6.3-8.2) L 12/19/16 04:20 Albumin 2.3 g/dL (3.9-5) L 12/19/16 04:20 Albumin/Globulin Ratio 0.6 % 12/19/16 04:20 Vitamin B12 815.1 pg/mL (211-911) 12/15/16 09:15 TSH 0.204 mlU/mL (0.270-4.200) L 12/15/16 13:40 Free T4 1.16 ng/dL (0.76-1.46) 12/15/16 13:40 Urine Color Winsome (Yellow) 12/06/16 15:30 Urine Turbidity Clear (Clear) 12/06/16 15:30 Urine pH 6.0 (5.0-7.0) 12/06/16 15:30 Ur Specific [place] 1.017 (1.003-1.030) 12/06/16 15:30 Urine Protein 100 mg/dl mg/dL (Negative) 12/06/16 15:30 Urine Glucose (UA) 50 mg/dL (Negative) 12/06/16 15:30 Urine Ketones Neg mg/dL (Negative) 12/06/16 15:30 Urine Blood Sm (Negative) 12/06/16 15:30 Urine Nitrite Neg (Negative) 12/06/16 15:30 Urine Bilirubin Neg (Negative) 12/06/16 15:30 Urine Urobilinogen 4.0 mg/dL (<2.0) 12/06/16 15:30 Ur Leukocyte Esterase Neg (Negative) 12/06/16 15:30 Urine WBC (Auto) < 1.0 /HPF (0.0-6.0) 12/06/16 15:30 Urine RBC (Auto) 4.0 /HPF (0.0-6.0) 12/06/16 15:30 Urine Mucus Few /HPF 12/06/16 15:30 Vancomycin Trough 33.7 ug/mL (5.0-20.0) H 12/16/16 18:34 Salicylates < 0.3 mg/dL (2.8-20.0) L 12/06/16 16:07 Urine Opiates Screen Presumptive negative 12/06/16 15:30 Urine Methadone Screen Presumptive negative 12/06/16 15:30 Acetaminophen < 15.0 ug/mL (10.0-30.0) 12/06/16 16:07 Ur Barbiturates Screen Presumptive negative 12/06/16 15:30 Ur Phencyclidine Scrn Presumptive negative 12/06/16 15:30 Ur Amphetamines Screen Presumptive negative 12/06/16 15:30 U Benzodiazepines Scrn Presumptive negative 12/06/16 15:30 Urine Cocaine Screen Presumptive negative 12/06/16 15:30 U Marijuana (THC) Screen Presumptive negative 12/06/16 15:30 Drugs of Abuse Note Disclamer 12/06/16 15:30 Plasma/Serum Alcohol < 0.01 gm% (0-0.07) 12/06/16 16:07 Hepatitis A IgM Ab Non-reactive (NonReactive) 12/18/16 18:21 Hep Bs Antigen Non-reactive (Negative) 12/18/16 18:21 Hep B Core IgM Ab Non-reactive (NonReactive) 12/18/16 18:21 Hepatitis C Antibody Reactive (NonReactive) 12/18/16 18:21 Blood Type A NEGATIVE 12/23/16 07:30 Antibody Screen Negative 12/23/16 07:30 Crossmatch See Detail 12/23/16 07:30
[2016-12-28] MEDS: LEVEMIR SUB-Q SCH (12:03)
--- NOTE | 2016-12-28 12:04 | Progress Note ---
Assessment and Plan - Patient Problems (1) Acute kidney failure with tubular necrosis Current Visit: Yes Status: Acute Plan to address problem: Electrolytes within normal limits, renal parameters improved on HD, however patient remains oliguric. Will continue intermittent HD on M//F schedule until significant renal recovery is seen. Will increase UF as BP tolerates. (2) Acute hypoxemic respiratory failure Current Visit: Yes Status: Acute Plan to address problem: Continue ventilator management/weaning as per pulmonary. (3) Septic shock Current Visit: Yes Status: Acute Plan to address problem: Patient remains off of Levophed. Continue antibiotics and supportive care . (4) Systolic CHF, acute on chronic Current Visit: No Status: Acute Plan to address problem: Volume status improved on HD. Reevaluate need for dialysis for fluid removal on a daily basis. 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 Objective - Vital Signs Vital signs: Vital Signs - 12hr 12/28/16 12/28/16 12/28/16 00:16 00:30 00:46 Temperature Pulse Rate 90 88 89 Pulse Rate [ Anterior Bilateral Throughout] Respiratory 16 16 19 Rate Respiratory Rate [Anterior Bilateral Throughout] Respiratory Rate [throat] Blood Pressure 121/67 112/59 112/59 O2 Sat by Pulse 97 96 99 Oximetry 12/28/16 12/28/16 12/28/16 01:00 01:16 01:30 Temperature Pulse Rate 92 H 95 H 95 H Pulse Rate [ Anterior Bilateral Throughout] Respiratory 14 14 16 Rate Respiratory Rate [Anterior Bilateral Throughout] Respiratory Rate [throat] Blood Pressure 109/65 109/65 108/63 O2 Sat by Pulse 96 99 98 Oximetry 12/28/16 12/28/16 12/28/16 01:38 01:46 02:00 Temperature Pulse Rate 101 H 89 90 Pulse Rate [ Anterior Bilateral Throughout] Respiratory 14 16 Rate Respiratory Rate [Anterior Bilateral Throughout] Respiratory Rate [throat] Blood Pressure 115/69 108/63 116/65 O2 Sat by Pulse 99 97 97 Oximetry 12/28/16 12/28/16 12/28/16 02:16 02:30 02:46 Temperature Pulse Rate 88 87 88 Pulse Rate [ Anterior Bilateral Throughout] Respiratory 17 16 11 L Rate Respiratory Rate [Anterior Bilateral Throughout] Respiratory Rate [throat] Blood Pressure 116/65 106/57 116/65 O2 Sat by Pulse 99 98 100 Oximetry 12/28/16 12/28/16 12/28/16 03:00 03:16 03:30 Temperature Pulse Rate 86 86 96 H Pulse Rate [ Anterior Bilateral Throughout] Respiratory 19 19 15 Rate Respiratory Rate [Anterior Bilateral Throughout] Respiratory Rate [throat] Blood Pressure 100/55 106/57 116/61 O2 Sat by Pulse 99 99 98 Oximetry 12/28/16 12/28/16 12/28/16 03:46 04:00 04:15 Temperature 98.5 F Pulse Rate 95 H 90 94 H Pulse Rate [ Anterior Bilateral Throughout] Respiratory 15 15 Rate Respiratory Rate [Anterior Bilateral Throughout] Respiratory Rate [throat] Blood Pressure 116/61 114/67 O2 Sat by Pulse 99 97 98 Oximetry 12/28/16 12/28/16 12/28/16 04:16 04:30 04:46 Temperature Pulse Rate 92 H 94 H 93 H Pulse Rate [ Anterior Bilateral Throughout] Respiratory 18 18 13 Rate Respiratory Rate [Anterior Bilateral Throughout] Respiratory Rate [throat] Blood Pressure 114/67 119/61 119/61 O2 Sat by Pulse 98 96 98 Oximetry 12/28/16 12/28/16 12/28/16 05:00 05:16 05:30 Temperature Pulse Rate 92 H 88 96 H Pulse Rate [ Anterior Bilateral Throughout] Respiratory 15 17 15 Rate Respiratory Rate [Anterior Bilateral Throughout] Respiratory Rate [throat] Blood Pressure 123/69 123/69 128/69 O2 Sat by Pulse 96 98 90 Oximetry 12/28/16 12/28/16 12/28/16 05:46 06:00 06:14 Temperature Pulse Rate 96 H 91 H 96 H Pulse Rate [ Anterior Bilateral Throughout] Respiratory 18 17 Rate Respiratory Rate [Anterior Bilateral Throughout] Respiratory Rate [throat] Blood Pressure 128/69 117/67 123/69 O2 Sat by Pulse 95 96 Oximetry 12/28/16 12/28/16 12/28/16 06:16 06:30 07:00 Temperature Pulse Rate 92 H 94 H 97 H Pulse Rate [ Anterior Bilateral Throughout] Respiratory 15 16 17 Rate Respiratory Rate [Anterior Bilateral Throughout] Respiratory Rate [throat] Blood Pressure 117/67 121/66 134/77 O2 Sat by Pulse 97 96 96 Oximetry 12/28/16 12/28/16 12/28/16 07:30 08:00 08:30 Temperature 99.4 F Pulse Rate 95 H 96 H 94 H Pulse Rate [ Anterior Bilateral Throughout] Respiratory 14 18 11 L Rate Respiratory Rate [Anterior Bilateral Throughout] Respiratory Rate [throat] Blood Pressure 125/70 132/72 134/71 O2 Sat by Pulse 96 95 96 Oximetry 12/28/16 12/28/16 12/28/16 09:00 09:05 09:29 Temperature Pulse Rate 96 H 95 H 94 H Pulse Rate [ 95 H 95 H Anterior Bilateral Throughout] Respiratory 18 15 Rate Respiratory 17 15 Rate [Anterior Bilateral Throughout] Respiratory Rate [throat] Blood Pressure 119/66 119/66 119/66 O2 Sat by Pulse 96 95 96 Oximetry 12/28/16 12/28/16 12/28/16 09:30 10:00 10:16 Temperature Pulse Rate 96 H 92 H 91 H Pulse Rate [ Anterior Bilateral Throughout] Respiratory 19 19 21 Rate Respiratory Rate [Anterior Bilateral Throughout] Respiratory 18 Rate [throat] Blood Pressure 112/67 107/59 107/59 O2 Sat by Pulse 96 96 Oximetry 12/28/16 12/28/16 12/28/16 10:30 10:52 11:00 Temperature Pulse Rate 98 H 96 H 99 H Pulse Rate [ Anterior Bilateral Throughout] Respiratory 17 15 14 Rate Respiratory Rate [Anterior Bilateral Throughout] Respiratory Rate [throat] Blood Pressure 113/53 113/53 123/68 O2 Sat by Pulse 95 95 96 Oximetry - General Appearance General appearance: well-developed, well-nourished, appears stated age EENT: ATNC, PERRL, mucous membranes moist Neck: no JVD Respiratory: Present: Ronchi Cardiology: regular, S1S2 Gastrointestinal: normal, normoactive bowel sounds Integumentary: no rash, other (+ edema b/l LE ) Neurologic: no focal deficit, alert and oriented x3, strength 5/5, CN 3-12 intact Psychiatric: mood/affect appropriate, cooperative - Lab 12/27/16 05:11 12/28/16 05:10 Most recent lab results Calcium 7.5 mg/dL (8.4-10.2) L 12/28/16 05:10 Phosphorus 5.4 mg/dL (2.5-4.5) H D 12/18/16 18:21 Magnesium 2.5 mg/dL (1.7-2.3) H 12/17/16 09:10
--- NOTE | 2016-12-28 14:31 | Progress Note ---
Assessment and Plan - Patient Problems (1) Acute hypoxemic respiratory failure Current Visit: Yes Status: Acute Plan to address problem: Continue supportive care. Cardiovascular status is stable. Subjective Date of service: 12/28/16 Principal diagnosis: Acute hypoxemic respiratory failure, shock Interval history: Patient is awake, on the vent, stable normal sinus rhythm, stable blood pressure. Objective Vital Signs Temp Pulse Pulse Pulse Resp Resp Resp 12/28/16 13:43 105 H 22 12/28/16 13:30 100 H 15 12/28/16 13:21 101 H 20 12/28/16 13:00 95 H 23 12/28/16 12:30 94 H 21 12/28/16 12:00 98.8 F 97 H 17 12/28/16 11:30 102 H 12 12/28/16 11:00 99 H 14 12/28/16 10:52 96 H 15 12/28/16 10:30 98 H 17 12/28/16 10:16 91 H 21 12/28/16 10:00 92 H 19 12/28/16 09:30 96 H 19 12/28/16 09:29 94 H 95 H 15 15 12/28/16 09:05 95 H 95 H 17 12/28/16 09:00 96 H 18 12/28/16 08:30 94 H 11 L 12/28/16 08:00 99.4 F 96 H 18 12/28/16 07:30 95 H 14 12/28/16 07:00 97 H 17 12/28/16 06:30 94 H 16 12/28/16 06:16 92 H 15 12/28/16 06:14 96 H 12/28/16 06:00 91 H 17 12/28/16 05:46 96 H 18 12/28/16 05:30 96 H 15 12/28/16 05:16 88 17 12/28/16 05:00 92 H 15 12/28/16 04:46 93 H 13 12/28/16 04:30 94 H 18 12/28/16 04:16 92 H 18 12/28/16 04:15 94 H 12/28/16 04:00 98.5 F 90 15 12/28/16 03:46 95 H 15 12/28/16 03:30 96 H 15 12/28/16 03:16 86 19 12/28/16 03:00 86 19 03/19/17 02:46 88 11 L 17 02:30 87 16 17 02:16 88 17 12/28/16 02:00 90 16 17 01:46 89 14 17 01:38 101 H 17 01:30 95 H 16 17 01:16 95 H 14 17 01:00 92 H 14 12/28/16 00:46 89 19 17 00:30 88 16 17 00:16 90 16 12/28/16 00:00 98.6 F 97 H 14 1817 23:52 92 H 16 1817 23:46 92 H 12 18/17 23:30 88 15 1817 23:16 91 H 20 18/17 23:15 91 H 1817 23:00 91 H 13 18/17 22:46 90 18 18/17 22:30 94 H 20 1817 22:16 90 18 1817 22:10 98 H 21 18/17 22:00 93 H 95 H 17 21 18/17 21:46 95 H 11 L 18/17 21:30 94 H 12 18/17 21:24 98 H 18/17 21:16 97 H 13 18/17 21:00 98 H 10 L 18/17 20:46 104 H 13 18/17 20:30 104 H 11 L 18/17 20:16 106 H 11 L 18/17 20:00 90 12 18/17 19:49 98.8 F 18/17 19:46 94 H 12 03/18/17 19:30 97 H 11 L 0318/17 19:16 95 H 13 0318/17 19:00 94 H 11 L 0318/17 18:46 101 H 13 03/18/17 18:30 104 H 17 /18/17 18:16 98 H 11 L 0318/17 18:11 102 H 0318/17 18:00 99 H 11 L 0318/17 17:46 105 H 13 18/17 17:30 108 H 13 03/18/17 17:16 98 H 13 12/27/16 17:00 97 H 13 17 16:46 101 H 14 12/27/16 16:30 96 H 15 12/27/16 16:16 98 H 12 12/27/16 16:00 98.5 F 95 H 13 12/27/16 15:46 100 H 15 17 15:30 99 H 17 12/27/16 15:16 97 H 17 12/27/16 15:00 93 H 16 12/27/16 14:46 99 H 13 17 14:35 106 H 19 Resp BP Pulse Ox 12/28/16 13:43 12/28/16 13:30 133/75 93 12/28/16 13:21 98 12/28/16 13:00 118/68 96 12/28/16 12:30 116/64 93 12/28/16 12:00 123/65 94 12/28/16 11:30 125/68 96 12/28/16 11:00 123/68 96 12/28/16 10:52 113/53 95 12/28/16 10:30 113/53 95 12/28/16 10:16 107/59 96 12/28/16 10:00 18 107/59 12/28/16 09:30 112/67 96 12/28/16 09:29 119/66 96 12/28/16 09:05 119/66 95 12/28/16 09:00 119/66 96 12/28/16 08:30 134/71 96 12/28/16 08:00 132/72 95 12/28/16 07:30 125/70 96 12/28/16 07:00 134/77 96 12/28/16 06:30 121/66 96 12/28/16 06:16 117/67 97 12/28/16 06:14 123/69 12/28/16 06:00 117/67 96 12/28/16 05:46 128/69 95 12/28/16 05:30 128/69 90 12/28/16 05:16 123/69 98 12/28/16 05:00 123/69 96 12/28/16 04:46 119/61 98 12/28/16 04:30 119/61 96 12/28/16 04:16 114/67 98 03/19/17 04:15 98 03/17 04:00 114/67 97 12/28/17 03:46 116/61 99 03/17 03:30 116/61 98 12/28/17 03:16 106/57 99 12/28/17 03:00 100/55 99 12/28/17 02:46 116/65 100 12/28/17 02:30 106/57 98 12/28/17 02:16 116/65 99 17 02:00 116/65 97 17 01:46 108/63 97 12/28/16 01:38 115/69 99 12/28/17 01:30 108/63 98 12/28/16 01:16 109/65 99 12/28/16 01:00 109/65 96 12/28/17 00:46 112/59 99 17 00:30 112/59 96 12/28/ 00:16 121/67 97 12/28/16 00:00 121/67 96 12/27/17 23:52 100/58 98 18/17 23:46 100/58 97 18/17 23:30 100/58 99 18/17 23:16 116/63 99 18/17 23:15 98 18/17 23:00 116/63 98 18/17 22:46 118/66 98 18/17 22:30 118/66 96 18/17 22:16 120/66 99 18/17 22:10 18/17 22:00 16 120/66 98 18/17 21:46 109/63 100 18/17 21:30 109/63 97 18/17 21:24 118/68 98 0318/17 21:16 118/68 98 18/17 21:00 118/68 97 18/17 20:46 127/68 94 18/17 20:30 127/68 96 0318/17 20:16 120/68 99 18/17 20:00 120/68 97 0318/17 19:49 0318/17 19:46 119/68 99 0318/17 19:30 119/68 97 18/17 19:16 117/72 99 03/18/17 19:00 16 117/72 95 12/27/16 18:46 108/69 98 12/27/16 18:30 108/69 97 12/27/16 18:16 113/63 96 12/27/16 18:11 113/63 95 12/27/16 18:00 113/63 94 12/27/16 17:46 115/70 94 12/27/16 17:30 115/70 96 12/27/16 17:16 109/64 98 12/27/16 17:00 109/64 97 12/27/16 16:46 112/65 99 12/27/16 16:30 112/65 12/27/16 16:16 105/59 99 12/27/16 16:00 105/59 95 12/27/16 15:46 117/64 98 12/27/16 15:30 117/64 97 12/27/16 15:16 106/57 97 12/27/16 15:00 106/57 96 12/27/16 14:46 115/67 94 12/27/16 14:35 - Physical Examination General: Other (intubated on mechanical ventilator) HEENT: Positive: PERRL Neck: Positive: neck supple. Negative: JVD/HJR Cardiac: Positive: Reg Rate and Rhythm Lungs: Positive: Decreased Breath Sounds Neuro: Positive: Other (sedated on the vent) Abdomen: Positive: Soft Skin: Positive: Clear Extremities: Absent: edema - Labs and Meds Comprehensive Metabolic Panel 12/28/16 Range/Units 05:10 Sodium 136 L (137-145) mmol/L Potassium 3.7 (3.6-5.0) mmol/L Chloride 94.1 L (98-107) mmol/L Carbon Dioxide 22 (22-30) mmol/L BUN 74 H (9-20) mg/dL Creatinine 5.6 H (0.8-1.5) mg/dL Glucose 177 H (75-100) mg/dL Calcium 7.5 L (8.4-10.2) mg/dL - Allied health notes Allied health notes reviewed: RT
--- NOTE | 2016-12-28 19:22 | Progress Note ---
Subjective Date of service: 12/28/16 Principal diagnosis: Acute hypoxemic respiratory failure, shock Interval history: no new issues. PHYSICAL EXAM Vital signs - temp 102.2 chest - mild b/l rhonchi cvs - s1s2 abd - bs+ LABS See lab section ASSESSMENT 1. Pneumonia 2. Acute respiratory failure 3. Encephalopathy 4. CHF RECOMMENDATION 1. CONTINUE ORAL BACTRIM. Objective - Constitutional Vitals: Vital Signs Temp Pulse Resp BP Pulse Ox 98.8 F 105 H 22 133/75 97 12/28/16 12:00 12/28/16 13:43 12/28/16 13:43 12/28/16 13:30 12/28/16 16:31 Temperature -Last 24 Hours Temperature 98.8 F Temperature 99.4 F Temperature 98.5 F Temperature 98.6 F Temperature 98.8 F - Labs CBC & Chem 7: 12/27/16 05:11 12/28/16 05:10 Labs: Abnormal lab results 12/28/16 Range/Units 05:10 Sodium 136 L (137-145) mmol/L Chloride 94.1 L (98-107) mmol/L BUN 74 H (9-20) mg/dL Creatinine 5.6 H (0.8-1.5) mg/dL Glucose 177 H (75-100) mg/dL Calcium 7.5 L (8.4-10.2) mg/dL
[2016-12-28] MEDS ORDERED: DECADRON ONE (20:43)
[2016-12-28] MEDS ORDERED: S2 RACEPINEPHRINE 2.25% IH ONE (20:46)
[2016-12-28] MEDS: ZOCOR PO SCH (22:01)
[2016-12-29] MEDS ORDERED: S2 RACEPINEPHRINE 2.25% IH PRN (01:03)
[2016-12-29] MEDS: DUONEB 0.5 MG-3 MG/3 ML SOLN IH SCH ×4 (02:20→20:55)
[2016-12-29 05:14] LABS: BUN/Creatinine Ratio 14.32; Calcium 7.6 mg/dL (8.4-10.2); Chloride 93.8 mmol/L (98-107); Potassium 4.4 mmol/L (3.6-5.0)
[2016-12-29] MEDS: HEPARIN SUB-Q SCH ×3 (05:27→21:42)
--- NOTE | 2016-12-29 09:07 | Progress Note ---
Hospitalist Physical - Constitutional Vitals: Temp Pulse Resp BP Pulse Ox 97.6 F 97 H 24 135/86 97 12/29/16 07:53 12/29/16 08:06 12/29/16 08:06 12/29/16 08:06 12/29/16 08:06 General appearance: Present: other (intubated) Results - Labs CBC & Chem 7: 12/27/16 05:11 12/29/16 04:30 Labs: Laboratory Last Values WBC 7.4 K/mm3 (4.5-11.0) 12/27/16 05:11 RBC 2.73 M/mm3 (3.65-5.03) L 12/27/16 05:11 Hgb 8.2 gm/dl (11.8-15.2) L 12/27/16 05:11 Hct 24.0 % (35.5-45.6) L 12/27/16 05:11 MCV 88 fl (84-94) 12/27/16 05:11 MCH 30 pg (28-32) 12/27/16 05:11 MCHC 34 % (32-34) 12/27/16 05:11 RDW 12.9 % (13.2-15.2) L 12/27/16 05:11 Plt Count 126 K/mm3 (140-440) L 12/27/16 05:11 Lymph % (Auto) 11.3 % (13.4-35.0) L 12/19/16 04:20 [place] % (Auto) 4.0 % (0.0-7.3) 12/19/16 04:20 Eos % (Auto) 0.3 % (0.0-4.3) 12/19/16 04:20 Baso % (Auto) 0.5 % (0.0-1.8) 12/19/16 04:20 Lymph # 1.3 K/mm3 (1.2-5.4) 12/19/16 04:20 [place] # 0.5 K/mm3 (0.0-0.8) 12/19/16 04:20 Eos # 0.0 K/mm3 (0.0-0.4) 12/19/16 04:20 Baso # 0.1 K/mm3 (0.0-0.1) 12/19/16 04:20 Seg Neutrophils % 83.9 % (40.0-70.0) H 12/19/16 04:20 Seg Neutrophils # 9.9 K/mm3 (1.8-7.7) H 12/19/16 04:20 PT 18.8 Sec. (12.2-14.9) H 12/18/16 16:55 INR 1.58 (0.87-1.13) H 12/18/16 16:55 APTT 34.5 Sec. (24.2-36.6) 12/18/16 16:55 D-Dimer 586.01 ng/mlDDU (0-234) H 12/14/16 18:03 POC ABG pH 7.392 (7.35-7.45) 12/23/16 04:48 POC ABG pCO2 37.6 (35-45) 12/23/16 04:48 POC ABG pO2 123 (80-105) H 12/23/16 04:48 POC ABG HCO3 22.9 12/23/16 04:48 POC ABG Total CO2 24 12/23/16 04:48 POC ABG O2 Sat 99 12/23/16 04:48 POC ABG Base Excess -2 12/23/16 04:48 FiO2 40 % 12/23/16 04:48 Sodium 136 mmol/L (137-145) L 12/29/16 04:30 Potassium 4.4 mmol/L (3.6-5.0) 12/29/16 04:30 Chloride 93.8 mmol/L (98-107) L 12/29/16 04:30 Carbon Dioxide 19 mmol/L (22-30) L 12/29/16 04:30 Anion Gap 28 mmol/L 12/29/16 04:30 BUN 96 mg/dL (9-20) H 12/29/16 04:30 Creatinine 6.7 mg/dL (0.8-1.5) H 12/29/16 04:30 Estimated GFR 8 ml/min 12/29/16 04:30 BUN/Creatinine Ratio 14.32 % 12/29/16 04:30 Glucose 217 mg/dL (75-100) H 12/29/16 04:30 POC Glucose 160 (70-105) H 12/25/16 00:09 Lactic Acid 1.9 mmol/L (0.7-2.0) 12/18/16 09:00 Calcium 7.6 mg/dL (8.4-10.2) L 12/29/16 04:30 Phosphorus 5.4 mg/dL (2.5-4.5) H D 12/18/16 18:21 Magnesium 2.5 mg/dL (1.7-2.3) H 12/17/16 09:10 Total Bilirubin 0.9 mg/dL (0.1-1.2) 12/19/16 04:20 Direct Bilirubin 0.7 mg/dL (0-0.2) H 12/07/16 05:30 Indirect Bilirubin 0.4 mg/dL 12/07/16 05:30 AST 1058 units/L (5-40) H 12/19/16 04:20 ALT 133 units/L (7-56) H 12/19/16 04:20 Alkaline Phosphatase 35 units/L (35-129) 12/19/16 04:20 Ammonia 42.0 umol/L (25-60) 12/06/16 16:07 Total Creatine Kinase 242 units/L (55-170) H 12/07/16 06:58 CK-MB (CK-2) 2.8 ng/mL (0.0-4.0) 12/07/16 06:58 CK-MB (CK-2) Rel Index 1.1 (0-4) 12/07/16 06:58 Troponin T < 0.010 ng/mL (0.00-0.029) 12/07/16 06:58 C-Reactive Protein 1.20 mg/dL (0.00-1.30) 12/15/16 11:37 Total Protein 6.1 g/dL (6.3-8.2) L 12/19/16 04:20 Albumin 2.3 g/dL (3.9-5) L 12/19/16 04:20 Albumin/Globulin Ratio 0.6 % 12/19/16 04:20 Vitamin B12 815.1 pg/mL (211-911) 12/15/16 09:15 TSH 0.204 mlU/mL (0.270-4.200) L 12/15/16 13:40 Free T4 1.16 ng/dL (0.76-1.46) 12/15/16 13:40 Urine Color Winsome (Yellow) 12/06/16 15:30 Urine Turbidity Clear (Clear) 12/06/16 15:30 Urine pH 6.0 (5.0-7.0) 12/06/16 15:30 Ur Specific [place] 1.017 (1.003-1.030) 12/06/16 15:30 Urine Protein 100 mg/dl mg/dL (Negative) 12/06/16 15:30 Urine Glucose (UA) 50 mg/dL (Negative) 12/06/16 15:30 Urine Ketones Neg mg/dL (Negative) 12/06/16 15:30 Urine Blood Sm (Negative) 12/06/16 15:30 Urine Nitrite Neg (Negative) 12/06/16 15:30 Urine Bilirubin Neg (Negative) 12/06/16 15:30 Urine Urobilinogen 4.0 mg/dL (<2.0) 12/06/16 15:30 Ur Leukocyte Esterase Neg (Negative) 12/06/16 15:30 Urine WBC (Auto) < 1.0 /HPF (0.0-6.0) 12/06/16 15:30 Urine RBC (Auto) 4.0 /HPF (0.0-6.0) 12/06/16 15:30 Urine Mucus Few /HPF 12/06/16 15:30 Vancomycin Trough 33.7 ug/mL (5.0-20.0) H 12/16/16 18:34 Salicylates < 0.3 mg/dL (2.8-20.0) L 12/06/16 16:07 Urine Opiates Screen Presumptive negative 12/06/16 15:30 Urine Methadone Screen Presumptive negative 12/06/16 15:30 Acetaminophen < 15.0 ug/mL (10.0-30.0) 12/06/16 16:07 Ur Barbiturates Screen Presumptive negative 12/06/16 15:30 Ur Phencyclidine Scrn Presumptive negative 12/06/16 15:30 Ur Amphetamines Screen Presumptive negative 12/06/16 15:30 U Benzodiazepines Scrn Presumptive negative 12/06/16 15:30 Urine Cocaine Screen Presumptive negative 12/06/16 15:30 U Marijuana (THC) Screen Presumptive negative 12/06/16 15:30 Drugs of Abuse Note Disclamer 12/06/16 15:30 Plasma/Serum Alcohol < 0.01 gm% (0-0.07) 12/06/16 16:07 Hepatitis A IgM Ab Non-reactive (NonReactive) 12/18/16 18:21 Hep Bs Antigen Non-reactive (Negative) 12/18/16 18:21 Hep B Core IgM Ab Non-reactive (NonReactive) 12/18/16 18:21 Hepatitis C Antibody Reactive (NonReactive) 12/18/16 18:21 Blood Type A NEGATIVE 12/23/16 07:30 Antibody Screen Negative 12/23/16 07:30 Crossmatch See Detail 12/23/16 07:30
[2016-12-29 10:12] LABS: ISTAT Base Excess 0; ISTAT PCO2 35.9 (35-45); ISTAT PH 7.434 (7.35-7.45); ISTAT PO2 79 (80-105); ISTAT SO2 96; ISTAT TCO2 25
[2016-12-29 10:14] LABS: ISTAT Base Excess -4; ISTAT HCO3 20.2; ISTAT PCO2 30.5 (35-45); ISTAT PO2 102 (80-105); ISTAT SO2 98; ISTAT TCO2 21
[2016-12-29 10:14] LABS: ISTAT Base Excess -2; ISTAT HCO3 21.7; ISTAT PCO2 31.7 (35-45); ISTAT PH 7.444 (7.35-7.45); ISTAT PO2 87 (80-105); ISTAT SO2 97; ISTAT TCO2 23
--- NOTE | 2016-12-29 10:39 | Progress Note ---
Assessment and Plan Acute respiratory failure s/p extubated; currently on bipap therapy Septic shock Pneumonia Altered mental status Anemia requiring blood transfusion Thrombocytopenia Acute renal failure initiated on HD this admission Chronic systolic heart failure Ischemic cardiomyopathy Echo this admission demonstrates left ventricular ejection fraction 35%. Hx of CAD [facility] 2013: patent mid LAD stent, patent diagonal branch stent, patent mid obtuse marginal stent. Nonobstructive disease of the RCA. EF 30-35%. Conservative cardiac management. Subjective Date of service: 12/29/16 Principal diagnosis: Acute hypoxemic respiratory failure, shock Interval history: Patient awake on Bipap therapy. Objective Vital Signs Temp Pulse Pulse Pulse Pulse Resp Resp 12/29/16 08:06 97 H 24 12/29/16 07:53 97.6 F 12/29/16 06:30 90 18 12/29/16 06:08 101 H 12/29/16 06:00 92 H 19 12/29/16 05:50 107 H 12/29/16 05:30 93 H 16 12/29/16 05:00 91 H 18 12/29/16 04:30 95 H 20 12/29/16 04:00 97.8 F 106 H 18 12/29/16 03:44 19 12/29/16 03:37 74 20 12/29/16 03:30 97 H 17 12/29/16 03:00 97 H 18 12/29/16 02:34 99 H 12/29/16 02:30 93 H 21 12/29/16 02:25 96 H 12/29/16 02:00 92 H 19 12/29/16 01:30 99 H 15 12/29/16 01:00 96 H 19 12/29/16 00:43 96 H 20 12/29/16 00:30 99 H 23 12/29/16 00:00 98.8 F 95 H 88 22 12/28/16 23:30 104 H 13 12/28/16 23:00 105 H 18 12/28/16 22:30 103 H 21 12/28/16 22:22 104 H 19 12/28/16 22:00 104 H 13 12/28/16 21:37 114 H 12/28/16 21:30 108 H 22 12/28/16 21:00 98.8 F 97 H 18 12/28/16 20:46 107 H 21 12/28/16 20:30 97 H 15 12/28/16 20:00 97 H 98 H 13 12/28/16 19:30 103 H 14 12/28/16 19:00 88 19 12/28/16 18:30 94 H 22 12/28/16 18:00 100 H 15 12/28/16 17:30 94 H 17 12/28/16 17:00 91 H 13 12/28/16 16:31 12/28/16 16:30 96 H 14 12/28/16 16:00 95 H 20 12/28/16 15:30 96 H 18 12/28/16 15:00 96 H 13 12/28/16 14:30 96 H 13 12/28/16 14:00 101 H 17 12/28/16 13:43 105 H 22 12/28/16 13:30 100 H 15 12/28/16 13:21 101 H 20 12/28/16 13:00 95 H 23 12/28/16 12:30 94 H 21 12/28/16 12:00 98.8 F 97 H 17 12/28/16 11:30 102 H 12 12/28/16 11:00 99 H 14 12/28/16 10:52 96 H 15 Resp BP Pulse Ox 12/29/16 08:06 135/86 97 12/29/16 07:53 12/29/16 06:30 140/81 97 12/29/16 06:08 24 12/29/16 06:00 133/78 94 12/29/16 05:50 20 12/29/16 05:30 134/74 96 12/29/16 05:00 152/86 12/29/16 04:30 157/76 98 12/29/16 04:00 152/86 99 12/29/16 03:44 97 12/29/16 03:37 97 12/29/16 03:30 137/86 97 12/29/16 03:00 142/86 97 12/29/16 02:34 21 12/29/16 02:30 139/83 96 12/29/16 02:25 18 12/29/16 02:00 142/78 96 12/29/16 01:30 128/80 97 12/29/16 01:00 128/80 97 12/29/16 00:43 134/75 99 12/29/16 00:30 134/75 98 12/29/16 00:00 125/73 98 12/28/16 23:30 144/89 97 12/28/16 23:00 144/82 98 12/28/16 22:30 143/79 97 12/28/16 22:22 132/72 99 12/28/16 22:00 132/72 98 12/28/16 21:37 22 12/28/16 21:30 137/84 99 12/28/16 21:00 127/89 98 12/28/16 20:46 137/84 98 12/28/16 20:30 137/91 94 12/28/16 20:00 135/82 94 12/28/16 19:30 134/78 96 12/28/16 19:00 123/66 96 12/28/16 18:30 136/71 92 12/28/16 18:00 144/75 96 12/28/16 17:30 140/89 96 12/28/16 17:00 138/76 95 12/28/16 16:31 97 12/28/16 16:30 133/77 94 12/28/16 16:00 128/77 97 12/28/16 15:30 119/74 94 12/28/16 15:00 126/74 96 12/28/16 14:30 128/76 95 12/28/16 14:00 127/61 97 12/28/16 13:43 12/28/16 13:30 133/75 93 12/28/16 13:21 98 12/28/16 13:00 118/68 96 12/28/16 12:30 116/64 93 12/28/16 12:00 123/65 94 12/28/16 11:30 125/68 96 12/28/16 11:00 123/68 96 12/28/16 10:52 113/53 95 - Physical Examination General: No Apparent Distress HEENT: Positive: PERRL Cardiac: Positive: Reg Rate and Rhythm - Labs and Meds Comprehensive Metabolic Panel 12/29/16 Range/Units 04:30 Sodium 136 L (137-145) mmol/L Potassium 4.4 (3.6-5.0) mmol/L Chloride 93.8 L (98-107) mmol/L Carbon Dioxide 19 L (22-30) mmol/L BUN 96 H (9-20) mg/dL Creatinine 6.7 H (0.8-1.5) mg/dL Glucose 217 H (75-100) mg/dL Calcium 7.6 L (8.4-10.2) mg/dL - Allied health notes Allied health notes reviewed: RT
--- NOTE | 2016-12-29 10:39 | Progress Note ---
Assessment and Plan - Patient Problems (1) Acute hypoxemic respiratory failure Current Visit: Yes Status: Acute Plan to address problem: - give break of BIPAP but schedule qhs in short terma - continue aspiration precautions - continue bronchodilators and pulmonary toilet - continue to wean FiO2 for sats > 94% (2) Altered mental status Current Visit: Yes Status: Acute Qualifiers: Altered mental status type: A Coma depth: C Coma timing: C Plan to address problem: - seen by neurology - prn sedation / benzo's - multi-factorial really including azotemia - will follow neurology recommendations - overall improved (3) Septic shock Current Visit: Yes Status: Acute Plan to address problem: - complete AB's as per ID recs - improved clinically - prn vasopressors vs volume boluses with caution re: azotemia (4) Diabetes Current Visit: No Status: Chronic Qualifiers: Diabetes mellitus type: D Diabetes mellitus complication status: D Diabetes mellitus complication detail: D Diabetic retinopathy severity: D Proliferative retinopathy type: P Diabetes mellitus macular edema: D Diabetes mellitus mcfp insulin use: D Laterality: L Chronic kidney disease stage: C Plan to address problem: - transitioned off IV insulin therapy - continue SSI (5) BRITTANY (acute kidney injury) Current Visit: Yes Status: Deleted Plan to address problem: - nephrology on case - s/p vas-cath (will consult for change of position) - HD/UF per nephrology recs - tolerating dialysis better now hemodynamically (6) Subclavian artery injury Current Visit: Yes Status: Acute Qualifiers: Encounter type: E Laterality: L Plan to address problem: - extracted and no obvious complication (7) Discharge planning issues Current Visit: Yes Status: Acute Plan to address problem: - LTAC re-evaluation ordered ...32' CCT Subjective Date of service: 12/29/16 Principal diagnosis: Acute hypoxemic respiratory failure, shock Interval history: Seen and examined at bedside; 24 hour events reviewed; nursing and respiratory care staff consulted; no adverse overnight events reported to me; extubated yesterday but developed stridor and placed on BIPAP; doing much better mentally and following commands better; denies acute chest pains or increased SOB; No N/V /F/C Objective Vital Signs - 12hr 12/28/16 12/28/16 12/29/16 23:00 23:30 00:00 Temperature 98.8 F Pulse Rate 105 H 104 H 95 H Pulse Rate [ Bilateral Throughout] Pulse Rate [ 88 From Monitor] Respiratory 18 13 22 Rate Respiratory Rate [Bilateral Throughout] Blood Pressure 144/82 144/89 125/73 O2 Sat by Pulse 98 97 98 Oximetry 12/29/16 12/29/16 12/29/16 00:30 00:43 01:00 Temperature Pulse Rate 99 H 96 H 96 H Pulse Rate [ Bilateral Throughout] Pulse Rate [ From Monitor] Respiratory 23 20 19 Rate Respiratory Rate [Bilateral Throughout] Blood Pressure 134/75 134/75 128/80 O2 Sat by Pulse 98 99 97 Oximetry 12/29/16 12/29/16 12/29/16 01:30 02:00 02:25 Temperature Pulse Rate 99 H 92 H Pulse Rate [ 96 H Bilateral Throughout] Pulse Rate [ From Monitor] Respiratory 15 19 Rate Respiratory 18 Rate [Bilateral Throughout] Blood Pressure 128/80 142/78 O2 Sat by Pulse 97 96 Oximetry 12/29/16 12/29/16 12/29/16 02:30 02:34 03:00 Temperature Pulse Rate 93 H 97 H Pulse Rate [ 99 H Bilateral Throughout] Pulse Rate [ From Monitor] Respiratory 21 18 Rate Respiratory 21 Rate [Bilateral Throughout] Blood Pressure 139/83 142/86 O2 Sat by Pulse 96 97 Oximetry 12/29/16 12/29/16 12/29/16 03:30 03:37 03:44 Temperature Pulse Rate 97 H Pulse Rate [ Bilateral Throughout] Pulse Rate [ 74 From Monitor] Respiratory 17 20 19 Rate Respiratory Rate [Bilateral Throughout] Blood Pressure 137/86 O2 Sat by Pulse 97 97 97 Oximetry 12/29/16 12/29/16 12/29/16 04:00 04:30 05:00 Temperature 97.8 F Pulse Rate 106 H 95 H 91 H Pulse Rate [ Bilateral Throughout] Pulse Rate [ From Monitor] Respiratory 18 20 18 Rate Respiratory Rate [Bilateral Throughout] Blood Pressure 152/86 157/76 152/86 O2 Sat by Pulse 99 98 Oximetry 12/29/16 12/29/16 12/29/16 05:30 05:50 06:00 Temperature Pulse Rate 93 H 92 H Pulse Rate [ 107 H Bilateral Throughout] Pulse Rate [ From Monitor] Respiratory 16 19 Rate Respiratory 20 Rate [Bilateral Throughout] Blood Pressure 134/74 133/78 O2 Sat by Pulse 96 94 Oximetry 12/29/16 12/29/16 12/29/16 06:08 06:30 07:53 Temperature 97.6 F Pulse Rate 90 Pulse Rate [ 101 H Bilateral Throughout] Pulse Rate [ From Monitor] Respiratory 18 Rate Respiratory 24 Rate [Bilateral Throughout] Blood Pressure 140/81 O2 Sat by Pulse 97 Oximetry 12/29/16 08:06 Temperature Pulse Rate 97 H Pulse Rate [ Bilateral Throughout] Pulse Rate [ From Monitor] Respiratory 24 Rate Respiratory Rate [Bilateral Throughout] Blood Pressure 135/86 O2 Sat by Pulse 97 Oximetry Constitutional: no acute distress, alert Eyes: non-icteric ENT: oropharynx moist Neck: supple, no lymphadenopathy, no JVD Effort: mildly labored Ascultation: Bilateral: diminished breath sounds, rales (basilar and scant) Cardiovascular: regular rate and rhythm Gastrointestinal: normoactive bowel sounds, hypoactive bowel sounds, soft, non- tender, non-distended Integumentary: normal Extremities: no cyanosis, pink and warm, pulses normal, no ischemia or petechiae Neurologic: non-focal exam (grossly), pupils equal and round, unable to assess Psychiatric: mood appropriate, affect normal CBC and BMP: 12/27/16 05:11 12/29/16 04:30 ABG, PT/INR, D-dimer: ABG POC ABG pH 7.430 (7.35-7.45) 12/28/16 21:44 POC ABG pCO2 30.5 (35-45) L 12/28/16 21:44 POC ABG pO2 102 (80-105) 12/28/16 21:44 POC ABG HCO3 20.2 12/28/16 21:44 POC ABG Total CO2 21 12/28/16 21:44 POC ABG O2 Sat 98 12/28/16 21:44 PT/INR, D-dimer PT 18.8 Sec. (12.2-14.9) H 12/18/16 16:55 INR 1.58 (0.87-1.13) H 12/18/16 16:55 D-Dimer 586.01 ng/mlDDU (0-234) H 12/14/16 18:03 Abnormal lab findings: Abnormal Labs 12/07/16 12/07/16 12/07/16 00:35 05:30 05:30 WBC RBC Hgb Hct MCV MCHC RDW 13.0 L Plt Count 93 L Lymph % (Auto) [place] % (Auto) 11.2 H [place] # 1.1 H Baso # Seg Neutrophils % 71.3 H Seg Neutrophils # PT INR D-Dimer POC ABG pH POC ABG pCO2 POC ABG pO2 Sodium Potassium Chloride Carbon Dioxide BUN Creatinine 0.6 L Glucose 168 H POC Glucose Lactic Acid Calcium 7.8 L Phosphorus Magnesium Direct Bilirubin 0.7 H AST ALT Alkaline Phosphatase Total Creatine Kinase 343 H C-Reactive Protein Total Protein Albumin 2.6 L TSH Vancomycin Trough Crossmatch 12/07/16 12/07/16 12/07/16 06:58 16:41 18:30 WBC RBC Hgb Hct MCV MCHC RDW Plt Count Lymph % (Auto) [place] % (Auto) [place] # Baso # Seg Neutrophils % Seg Neutrophils # PT INR D-Dimer POC ABG pH POC ABG pCO2 POC ABG pO2 Sodium Potassium Chloride Carbon Dioxide BUN Creatinine Glucose POC Glucose 175 H Lactic Acid Calcium Phosphorus Magnesium Direct Bilirubin AST ALT Alkaline Phosphatase Total Creatine Kinase 242 H C-Reactive Protein 7.70 H Total Protein Albumin TSH Vancomycin Trough Crossmatch 12/09/16 12/10/16 12/10/16 11:58 06:05 12:24 WBC RBC Hgb Hct MCV MCHC RDW Plt Count Lymph % (Auto) [place] % (Auto) [place] # Baso # Seg Neutrophils % Seg Neutrophils # PT INR D-Dimer POC ABG pH 7.485 H POC ABG pCO2 POC ABG pO2 Sodium Potassium Chloride Carbon Dioxide BUN Creatinine Glucose POC Glucose 141 H 183 H Lactic Acid Calcium Phosphorus Magnesium Direct Bilirubin AST ALT Alkaline Phosphatase Total Creatine Kinase C-Reactive Protein Total Protein Albumin TSH Vancomycin Trough Crossmatch 12/10/16 12/10/16 12/11/16 17:47 23:21 06:10 WBC RBC Hgb Hct MCV MCHC RDW Plt Count Lymph % (Auto) [place] % (Auto) [place] # Baso # Seg Neutrophils % Seg Neutrophils # PT INR D-Dimer POC ABG pH POC ABG pCO2 POC ABG pO2 Sodium Potassium Chloride Carbon Dioxide BUN Creatinine Glucose POC Glucose 176 H 240 H 252 H Lactic Acid Calcium Phosphorus Magnesium Direct Bilirubin AST ALT Alkaline Phosphatase Total Creatine Kinase C-Reactive Protein Total Protein Albumin TSH Vancomycin Trough Crossmatch 12/11/16 12/11/16 12/11/16 08:29 09:14 11:37 WBC RBC Hgb Hct MCV MCHC RDW 13.1 L Plt Count Lymph % (Auto) [place] % (Auto) [place] # Baso # Seg Neutrophils % Seg Neutrophils # PT INR D-Dimer POC ABG pH POC ABG pCO2 POC ABG pO2 Sodium Potassium Chloride Carbon Dioxide BUN Creatinine Glucose POC Glucose 253 H 284 H Lactic Acid Calcium Phosphorus Magnesium Direct Bilirubin AST ALT Alkaline Phosphatase Total Creatine Kinase C-Reactive Protein Total Protein Albumin TSH Vancomycin Trough Crossmatch 12/11/16 12/11/16 12/11/16 16:12 17:54 23:35 WBC RBC Hgb Hct MCV MCHC RDW Plt Count Lymph % (Auto) [place] % (Auto) [place] # Baso # Seg Neutrophils % Seg Neutrophils # PT INR D-Dimer POC ABG pH POC ABG pCO2 POC ABG pO2 Sodium Potassium Chloride Carbon Dioxide BUN 37 H Creatinine Glucose 258 H POC Glucose 227 H 264 H Lactic Acid Calcium 8.3 L Phosphorus Magnesium Direct Bilirubin AST ALT Alkaline Phosphatase Total Creatine Kinase C-Reactive Protein Total Protein Albumin 2.6 L TSH Vancomycin Trough Crossmatch 12/12/16 12/12/16 12/12/16 04:37 06:06 10:12 WBC RBC Hgb Hct MCV MCHC RDW Plt Count Lymph % (Auto) [place] % (Auto) [place] # Baso # Seg Neutrophils % Seg Neutrophils # PT INR D-Dimer POC ABG pH 7.500 H POC ABG pCO2 POC ABG pO2 69 L Sodium Potassium Chloride Carbon Dioxide BUN Creatinine Glucose POC Glucose 288 H Lactic Acid Calcium Phosphorus Magnesium Direct Bilirubin AST ALT Alkaline Phosphatase Total Creatine Kinase C-Reactive Protein Total Protein Albumin TSH Vancomycin Trough Crossmatch 12/12/16 12/12/16 12/12/16 13:08 17:46 23:31 WBC RBC Hgb Hct MCV MCHC RDW Plt Count Lymph % (Auto) [place] % (Auto) [place] # Baso # Seg Neutrophils % Seg Neutrophils # PT INR D-Dimer POC ABG pH POC ABG pCO2 POC ABG pO2 Sodium Potassium Chloride Carbon Dioxide BUN Creatinine Glucose POC Glucose 215 H 234 H 241 H Lactic Acid Calcium Phosphorus Magnesium Direct Bilirubin AST ALT Alkaline Phosphatase Total Creatine Kinase C-Reactive Protein Total Protein Albumin TSH Vancomycin Trough Crossmatch 12/13/16 12/13/16 12/13/16 05:38 11:44 17:32 WBC RBC Hgb Hct MCV MCHC RDW Plt Count Lymph % (Auto) [place] % (Auto) [place] # Baso # Seg Neutrophils % Seg Neutrophils # PT INR D-Dimer POC ABG pH POC ABG pCO2 POC ABG pO2 Sodium Potassium Chloride Carbon Dioxide BUN Creatinine Glucose POC Glucose 215 H 237 H 215 H Lactic Acid Calcium Phosphorus Magnesium Direct Bilirubin AST ALT Alkaline Phosphatase Total Creatine Kinase C-Reactive Protein Total Protein Albumin TSH Vancomycin Trough Crossmatch 12/14/16 12/14/16 12/14/16 00:22 05:40 12:03 WBC RBC Hgb Hct MCV MCHC RDW Plt Count Lymph % (Auto) [place] % (Auto) [place] # Baso # Seg Neutrophils % Seg Neutrophils # PT INR D-Dimer POC ABG pH POC ABG pCO2 POC ABG pO2 Sodium Potassium Chloride Carbon Dioxide BUN Creatinine Glucose POC Glucose 268 H 301 H 312 H Lactic Acid Calcium Phosphorus Magnesium Direct Bilirubin AST ALT Alkaline Phosphatase Total Creatine Kinase C-Reactive Protein Total Protein Albumin TSH Vancomycin Trough Crossmatch 12/14/16 12/14/16 12/14/16 18:03 18:03 18:03 WBC RBC Hgb Hct MCV MCHC RDW 12.9 L Plt Count Lymph % (Auto) [place] % (Auto) 8.0 H [place] # Baso # Seg Neutrophils % 72.4 H Seg Neutrophils # PT INR D-Dimer 586.01 H POC ABG pH POC ABG pCO2 POC ABG pO2 Sodium 150 H Potassium Chloride 109.1 H Carbon Dioxide BUN 50 H Creatinine Glucose 261 H POC Glucose Lactic Acid Calcium Phosphorus Magnesium Direct Bilirubin AST ALT Alkaline Phosphatase Total Creatine Kinase C-Reactive Protein Total Protein Albumin TSH Vancomycin Trough Crossmatch 12/14/16 12/14/16 12/14/16 18:30 21:55 23:59 WBC RBC Hgb Hct MCV MCHC RDW Plt Count Lymph % (Auto) [place] % (Auto) [place] # Baso # Seg Neutrophils % Seg Neutrophils # PT INR D-Dimer POC ABG pH POC ABG pCO2 POC ABG pO2 Sodium Potassium Chloride Carbon Dioxide BUN Creatinine Glucose POC Glucose 321 H 258 H 262 H Lactic Acid Calcium Phosphorus Magnesium Direct Bilirubin AST ALT Alkaline Phosphatase Total Creatine Kinase C-Reactive Protein Total Protein Albumin TSH Vancomycin Trough Crossmatch 12/15/16 12/15/16 12/15/16 05:28 06:04 09:15 WBC RBC Hgb Hct MCV MCHC RDW Plt Count Lymph % (Auto) [place] % (Auto) [place] # Baso # Seg Neutrophils % Seg Neutrophils # PT INR D-Dimer POC ABG pH POC ABG pCO2 POC ABG pO2 Sodium Potassium Chloride Carbon Dioxide BUN Creatinine Glucose POC Glucose 274 H 276 H Lactic Acid Calcium Phosphorus Magnesium Direct Bilirubin AST ALT Alkaline Phosphatase Total Creatine Kinase C-Reactive Protein Total Protein Albumin TSH 0.220 L Vancomycin Trough Crossmatch 12/15/16 12/15/16 12/15/16 11:59 13:40 18:06 WBC RBC Hgb Hct MCV MCHC RDW Plt Count Lymph % (Auto) [place] % (Auto) [place] # Baso # Seg Neutrophils % Seg Neutrophils # PT INR D-Dimer POC ABG pH POC ABG pCO2 33.3 L POC ABG pO2 70 L Sodium Potassium Chloride Carbon Dioxide BUN Creatinine Glucose POC Glucose 273 H Lactic Acid Calcium Phosphorus Magnesium Direct Bilirubin AST ALT Alkaline Phosphatase Total Creatine Kinase C-Reactive Protein Total Protein Albumin TSH 0.204 L Vancomycin Trough Crossmatch 12/15/16 12/15/16 12/16/16 18:14 21:26 02:08 WBC RBC Hgb Hct MCV MCHC RDW Plt Count Lymph % (Auto) [place] % (Auto) [place] # Baso # Seg Neutrophils % Seg Neutrophils # PT INR D-Dimer POC ABG pH 7.341 L POC ABG pCO2 POC ABG pO2 223 H Sodium Potassium Chloride Carbon Dioxide BUN Creatinine Glucose POC Glucose 234 H 371 H Lactic Acid Calcium Phosphorus Magnesium Direct Bilirubin AST ALT Alkaline Phosphatase Total Creatine Kinase C-Reactive Protein Total Protein Albumin TSH Vancomycin Trough Crossmatch 12/16/16 12/16/16 12/16/16 05:12 05:18 09:40 WBC RBC Hgb Hct MCV MCHC RDW Plt Count Lymph % (Auto) [place] % (Auto) [place] # Baso # Seg Neutrophils % Seg Neutrophils # PT INR D-Dimer POC ABG pH POC ABG pCO2 32.5 L POC ABG pO2 Sodium 154 H Potassium Chloride 116.8 H Carbon Dioxide 18 L D BUN 92 H Creatinine 3.0 H D Glucose 364 H POC Glucose 357 H Lactic Acid Calcium 8.2 L Phosphorus Magnesium Direct Bilirubin AST ALT Alkaline Phosphatase Total Creatine Kinase C-Reactive Protein Total Protein Albumin TSH Vancomycin Trough Crossmatch 12/16/16 12/16/16 12/16/16 13:40 18:27 18:34 WBC RBC Hgb Hct MCV MCHC RDW Plt Count Lymph % (Auto) [place] % (Auto) [place] # Baso # Seg Neutrophils % Seg Neutrophils # PT INR D-Dimer POC ABG pH POC ABG pCO2 POC ABG pO2 Sodium Potassium Chloride Carbon Dioxide BUN Creatinine Glucose POC Glucose 391 H 472 H Lactic Acid Calcium Phosphorus Magnesium Direct Bilirubin AST ALT Alkaline Phosphatase Total Creatine Kinase C-Reactive Protein Total Protein Albumin TSH Vancomycin Trough 33.7 H Crossmatch 12/17/16 12/17/16 12/17/16 00:38 01:54 05:53 WBC RBC Hgb Hct MCV MCHC RDW Plt Count Lymph % (Auto) [place] % (Auto) [place] # Baso # Seg Neutrophils % Seg Neutrophils # PT INR D-Dimer POC ABG pH 7.234 L POC ABG pCO2 34.5 L POC ABG pO2 50 L Sodium Potassium Chloride Carbon Dioxide BUN Creatinine Glucose POC Glucose 386 H 400 H Lactic Acid Calcium Phosphorus Magnesium Direct Bilirubin AST ALT Alkaline Phosphatase Total Creatine Kinase C-Reactive Protein Total Protein Albumin TSH Vancomycin Trough Crossmatch 12/17/16 12/17/16 12/17/16 06:45 06:45 07:45 WBC 12.3 H RBC Hgb 11.7 L Hct MCV 97 H D MCHC 31 L RDW Plt Count Lymph % (Auto) [place] % (Auto) 14.4 H [place] # 1.8 H Baso # 0.2 H Seg Neutrophils % Seg Neutrophils # 8.2 H PT INR D-Dimer POC ABG pH POC ABG pCO2 POC ABG pO2 Sodium Potassium 7.6 H* D Chloride 110.8 H Carbon Dioxide 14 L BUN 121 H Creatinine 5.4 H D Glucose 566 H* POC Glucose > 500 H Lactic Acid Calcium 6.2 L D Phosphorus Magnesium Direct Bilirubin AST 323 H ALT Alkaline Phosphatase 27 L Total Creatine Kinase C-Reactive Protein Total Protein Albumin 2.3 L TSH Vancomycin Trough Crossmatch 12/17/16 12/17/16 12/17/16 08:51 09:10 09:11 WBC RBC Hgb Hct MCV MCHC RDW Plt Count Lymph % (Auto) [place] % (Auto) [place] # Baso # Seg Neutrophils % Seg Neutrophils # PT INR D-Dimer POC ABG pH 7.113 L POC ABG pCO2 46.1 H POC ABG pO2 186 H Sodium Potassium Chloride Carbon Dioxide BUN Creatinine Glucose POC Glucose > 500 H Lactic Acid Calcium Phosphorus 9.5 H Magnesium 2.5 H Direct Bilirubin AST ALT Alkaline Phosphatase Total Creatine Kinase C-Reactive Protein Total Protein Albumin TSH Vancomycin Trough Crossmatch 12/17/16 12/17/1617 10:18 10:50 11:17 WBC RBC Hgb Hct MCV MCHC RDW Plt Count Lymph % (Auto) [place] % (Auto) [place] # Baso # Seg Neutrophils % Seg Neutrophils # PT INR D-Dimer POC ABG pH POC ABG pCO2 POC ABG pO2 Sodium Potassium 6.1 H* Chloride 110.1 H Carbon Dioxide 14 L BUN 128 H Creatinine 5.5 H Glucose 580 H* POC Glucose > 500 H > 500 H Lactic Acid Calcium Phosphorus Magnesium Direct Bilirubin AST ALT Alkaline Phosphatase Total Creatine Kinase C-Reactive Protein Total Protein Albumin TSH Vancomycin Trough Crossmatch 12/17/16 12/17/16 12/17/16 12:09 12:30 13:36 WBC RBC Hgb Hct MCV MCHC RDW Plt Count Lymph % (Auto) [place] % (Auto) [place] # Baso # Seg Neutrophils % Seg Neutrophils # PT INR D-Dimer POC ABG pH POC ABG pCO2 POC ABG pO2 Sodium Potassium 5.6 H Chloride 110.4 H Carbon Dioxide 14 L BUN 138 H Creatinine 5.3 H Glucose 528 H* POC Glucose 428 H 426 H Lactic Acid Calcium 6.8 L D Phosphorus Magnesium Direct Bilirubin AST ALT Alkaline Phosphatase Total Creatine Kinase C-Reactive Protein Total Protein Albumin TSH Vancomycin Trough Crossmatch 12/17/16 12/17/16 12/17/16 14:11 14:25 14:45 WBC RBC Hgb Hct MCV MCHC RDW Plt Count Lymph % (Auto) [place] % (Auto) [place] # Baso # Seg Neutrophils % Seg Neutrophils # PT INR D-Dimer POC ABG pH 7.297 L POC ABG pCO2 34.2 L POC ABG pO2 114 H Sodium 146 H Potassium 5.3 H Chloride 109.3 H Carbon Dioxide 15 L BUN 128 H Creatinine 5.5 H Glucose 426 H POC Glucose 422 H Lactic Acid Calcium 6.7 L Phosphorus Magnesium Direct Bilirubin AST ALT Alkaline Phosphatase Total Creatine Kinase C-Reactive Protein Total Protein Albumin TSH Vancomycin Trough Crossmatch 12/17/16 12/17/16 12/17/16 15:07 16:03 16:56 WBC RBC Hgb Hct MCV MCHC RDW Plt Count Lymph % (Auto) [place] % (Auto) [place] # Baso # Seg Neutrophils % Seg Neutrophils # PT INR D-Dimer POC ABG pH POC ABG pCO2 POC ABG pO2 Sodium Potassium Chloride Carbon Dioxide BUN Creatinine Glucose POC Glucose 392 H 450 H 352 H Lactic Acid Calcium Phosphorus Magnesium Direct Bilirubin AST ALT Alkaline Phosphatase Total Creatine Kinase C-Reactive Protein Total Protein Albumin TSH Vancomycin Trough Crossmatch 12/17/16 12/17/16 12/17/16 18:00 18:10 18:38 WBC RBC Hgb Hct MCV MCHC RDW Plt Count Lymph % (Auto) [place] % (Auto) [place] # Baso # Seg Neutrophils % Seg Neutrophils # PT INR D-Dimer POC ABG pH POC ABG pCO2 POC ABG pO2 Sodium 147 H Potassium Chloride 109.7 H Carbon Dioxide 15 L BUN 140 H Creatinine 5.2 H Glucose 301 H POC Glucose 318 H 256 H Lactic Acid Calcium 6.5 L Phosphorus Magnesium Direct Bilirubin AST ALT Alkaline Phosphatase Total Creatine Kinase C-Reactive Protein Total Protein Albumin TSH Vancomycin Trough Crossmatch 12/17/16 12/17/16 12/17/16 19:31 20:00 20:44 WBC RBC Hgb Hct MCV MCHC RDW Plt Count Lymph % (Auto) [place] % (Auto) [place] # Baso # Seg Neutrophils % Seg Neutrophils # PT 17.7 H INR 1.46 H D-Dimer POC ABG pH POC ABG pCO2 30.5 L POC ABG pO2 134 H Sodium Potassium Chloride Carbon Dioxide BUN Creatinine Glucose POC Glucose 189 H Lactic Acid Calcium Phosphorus Magnesium Direct Bilirubin AST ALT Alkaline Phosphatase Total Creatine Kinase C-Reactive Protein Total Protein Albumin TSH Vancomycin Trough Crossmatch 12/17/16 12/17/16 12/18/16 21:59 23:18 00:15 WBC RBC Hgb Hct MCV MCHC RDW Plt Count Lymph % (Auto) [place] % (Auto) [place] # Baso # Seg Neutrophils % Seg Neutrophils # PT INR D-Dimer POC ABG pH POC ABG pCO2 POC ABG pO2 Sodium 147 H Potassium 5.2 H Chloride 107.9 H Carbon Dioxide 18 L BUN 143 H Creatinine 5.6 H Glucose 152 H POC Glucose 191 H 132 H Lactic Acid Calcium 6.3 L Phosphorus Magnesium Direct Bilirubin AST ALT Alkaline Phosphatase Total Creatine Kinase C-Reactive Protein Total Protein Albumin TSH Vancomycin Trough Crossmatch 12/18/16 12/18/16 12/18/16 00:18 01:08 02:35 WBC RBC Hgb Hct MCV MCHC RDW Plt Count Lymph % (Auto) [place] % (Auto) [place] # Baso # Seg Neutrophils % Seg Neutrophils # PT INR D-Dimer POC ABG pH POC ABG pCO2 POC ABG pO2 Sodium Potassium Chloride Carbon Dioxide BUN Creatinine Glucose POC Glucose 190 H 157 H 144 H Lactic Acid Calcium Phosphorus Magnesium Direct Bilirubin AST ALT Alkaline Phosphatase Total Creatine Kinase C-Reactive Protein Total Protein Albumin TSH Vancomycin Trough Crossmatch 12/18/16 12/18/16 12/18/16 03:14 04:11 05:07 WBC RBC Hgb Hct MCV MCHC RDW Plt Count Lymph % (Auto) [place] % (Auto) [place] # Baso # Seg Neutrophils % Seg Neutrophils # PT INR D-Dimer POC ABG pH POC ABG pCO2 POC ABG pO2 Sodium Potassium Chloride Carbon Dioxide BUN Creatinine Glucose POC Glucose 117 H 108 H 122 H Lactic Acid Calcium Phosphorus Magnesium Direct Bilirubin AST ALT Alkaline Phosphatase Total Creatine Kinase C-Reactive Protein Total Protein Albumin TSH Vancomycin Trough Crossmatch 12/18/16 12/18/16 12/18/16 05:23 06:07 06:07 WBC RBC 3.18 L Hgb 9.6 L Hct 29.0 L D MCV MCHC RDW Plt Count 130 L Lymph % (Auto) [place] % (Auto) [place] # Baso # Seg Neutrophils % Seg Neutrophils # PT INR D-Dimer POC ABG pH 7.485 H POC ABG pCO2 27.5 L POC ABG pO2 275 H Sodium Potassium Chloride Carbon Dioxide BUN Creatinine Glucose POC Glucose Lactic Acid 3.2 H* Calcium Phosphorus Magnesium Direct Bilirubin AST ALT Alkaline Phosphatase Total Creatine Kinase C-Reactive Protein Total Protein Albumin TSH Vancomycin Trough Crossmatch 12/18/16 12/18/16 12/18/16 06:08 06:22 07:26 WBC RBC Hgb Hct MCV MCHC RDW Plt Count Lymph % (Auto) [place] % (Auto) [place] # Baso # Seg Neutrophils % Seg Neutrophils # PT 18.3 H INR 1.52 H D-Dimer POC ABG pH POC ABG pCO2 POC ABG pO2 Sodium Potassium Chloride Carbon Dioxide BUN Creatinine Glucose POC Glucose 159 H 198 H Lactic Acid Calcium Phosphorus Magnesium Direct Bilirubin AST ALT Alkaline Phosphatase Total Creatine Kinase C-Reactive Protein Total Protein Albumin TSH Vancomycin Trough Crossmatch 12/18/16 12/18/16 12/18/16 08:27 09:00 09:30 WBC RBC Hgb Hct MCV MCHC RDW Plt Count Lymph % (Auto) [place] % (Auto) [place] # Baso # Seg Neutrophils % Seg Neutrophils # PT INR D-Dimer POC ABG pH POC ABG pCO2 POC ABG pO2 Sodium 147 H Potassium 5.5 H Chloride Carbon Dioxide 17 L BUN 145 H Creatinine 6.4 H Glucose 213 H POC Glucose 220 H 216 H Lactic Acid Calcium 6.0 L Phosphorus Magnesium Direct Bilirubin AST ALT Alkaline Phosphatase Total Creatine Kinase C-Reactive Protein Total Protein Albumin TSH Vancomycin Trough Crossmatch 12/18/16 12/18/16 12/18/16 10:29 11:11 12:05 WBC RBC Hgb Hct MCV MCHC RDW Plt Count Lymph % (Auto) [place] % (Auto) [place] # Baso # Seg Neutrophils % Seg Neutrophils # PT INR D-Dimer POC ABG pH POC ABG pCO2 POC ABG pO2 Sodium Potassium Chloride Carbon Dioxide BUN Creatinine Glucose POC Glucose 248 H 214 H 165 H Lactic Acid Calcium Phosphorus Magnesium Direct Bilirubin AST ALT Alkaline Phosphatase Total Creatine Kinase C-Reactive Protein Total Protein Albumin TSH Vancomycin Trough Crossmatch 12/18/16 12/18/16 12/18/16 13:06 13:59 14:45 WBC RBC Hgb Hct MCV MCHC RDW Plt Count Lymph % (Auto) [place] % (Auto) [place] # Baso # Seg Neutrophils % Seg Neutrophils # PT INR D-Dimer POC ABG pH POC ABG pCO2 29.2 L POC ABG pO2 Sodium Potassium Chloride Carbon Dioxide BUN Creatinine Glucose POC Glucose 133 H 116 H Lactic Acid Calcium Phosphorus Magnesium Direct Bilirubin AST ALT Alkaline Phosphatase Total Creatine Kinase C-Reactive Protein Total Protein Albumin TSH Vancomycin Trough Crossmatch 12/18/16 12/18/16 12/18/16 14:52 15:14 15:52 WBC RBC Hgb Hct MCV MCHC RDW Plt Count Lymph % (Auto) [place] % (Auto) [place] # Baso # Seg Neutrophils % Seg Neutrophils # PT INR D-Dimer POC ABG pH POC ABG pCO2 24.2 L POC ABG pO2 Sodium Potassium Chloride Carbon Dioxide BUN Creatinine Glucose POC Glucose 139 H 146 H Lactic Acid Calcium Phosphorus Magnesium Direct Bilirubin AST ALT Alkaline Phosphatase Total Creatine Kinase C-Reactive Protein Total Protein Albumin TSH Vancomycin Trough Crossmatch 12/18/16 12/18/16 12/18/16 16:55 16:55 17:18 WBC RBC Hgb 11.4 L Hct 33.9 L MCV MCHC RDW Plt Count Lymph % (Auto) [place] % (Auto) [place] # Baso # Seg Neutrophils % Seg Neutrophils # PT 18.8 H INR 1.58 H D-Dimer POC ABG pH POC ABG pCO2 POC ABG pO2 Sodium Potassium Chloride Carbon Dioxide BUN Creatinine Glucose POC Glucose 144 H Lactic Acid Calcium Phosphorus Magnesium Direct Bilirubin AST ALT Alkaline Phosphatase Total Creatine Kinase C-Reactive Protein Total Protein Albumin TSH Vancomycin Trough Crossmatch 12/18/16 12/18/16 12/18/16 18:12 18:21 20:17 WBC RBC Hgb Hct MCV MCHC RDW Plt Count Lymph % (Auto) [place] % (Auto) [place] # Baso # Seg Neutrophils % Seg Neutrophils # PT INR D-Dimer POC ABG pH POC ABG pCO2 POC ABG pO2 Sodium Potassium Chloride Carbon Dioxide BUN Creatinine Glucose POC Glucose 147 H 120 H Lactic Acid Calcium Phosphorus 5.4 H D Magnesium Direct Bilirubin AST ALT Alkaline Phosphatase Total Creatine Kinase C-Reactive Protein Total Protein Albumin TSH Vancomycin Trough Crossmatch 12/18/16 12/19/16 12/19/16 22:52 00:56 02:09 WBC RBC Hgb Hct MCV MCHC RDW Plt Count Lymph % (Auto) [place] % (Auto) [place] # Baso # Seg Neutrophils % Seg Neutrophils # PT INR D-Dimer POC ABG pH POC ABG pCO2 POC ABG pO2 Sodium Potassium Chloride Carbon Dioxide BUN Creatinine Glucose POC Glucose 124 H 168 H 140 H Lactic Acid Calcium Phosphorus Magnesium Direct Bilirubin AST ALT Alkaline Phosphatase Total Creatine Kinase C-Reactive Protein Total Protein Albumin TSH Vancomycin Trough Crossmatch 12/19/16 12/19/16 12/19/16 04:20 04:20 04:53 WBC 11.8 H RBC Hgb 11.7 L Hct 34.7 L MCV MCHC RDW Plt Count Lymph % (Auto) 11.3 L [place] % (Auto) [place] # Baso # Seg Neutrophils % 83.9 H Seg Neutrophils # 9.9 H PT INR D-Dimer POC ABG pH POC ABG pCO2 POC ABG pO2 Sodium Potassium Chloride Carbon Dioxide 20 L BUN 108 H Creatinine 4.9 H Glucose 131 H POC Glucose 112 H Lactic Acid Calcium 6.3 L Phosphorus Magnesium Direct Bilirubin AST 1058 H ALT 133 H Alkaline Phosphatase Total Creatine Kinase C-Reactive Protein Total Protein 6.1 L Albumin 2.3 L TSH Vancomycin Trough Crossmatch 12/19/16 12/19/16 12/19/16 05:42 06:30 07:37 WBC RBC Hgb Hct MCV MCHC RDW Plt Count Lymph % (Auto) [place] % (Auto) [place] # Baso # Seg Neutrophils % Seg Neutrophils # PT INR D-Dimer POC ABG pH 7.539 H POC ABG pCO2 26.0 L POC ABG pO2 Sodium Potassium Chloride Carbon Dioxide BUN Creatinine Glucose POC Glucose 119 H 126 H Lactic Acid Calcium Phosphorus Magnesium Direct Bilirubin AST ALT Alkaline Phosphatase Total Creatine Kinase C-Reactive Protein Total Protein Albumin TSH Vancomycin Trough Crossmatch 12/19/16 12/19/16 12/19/16 09:59 12:38 14:25 WBC RBC Hgb Hct MCV MCHC RDW Plt Count Lymph % (Auto) [place] % (Auto) [place] # Baso # Seg Neutrophils % Seg Neutrophils # PT INR D-Dimer POC ABG pH POC ABG pCO2 POC ABG pO2 Sodium Potassium Chloride Carbon Dioxide BUN Creatinine Glucose POC Glucose 118 H 139 H 143 H Lactic Acid Calcium Phosphorus Magnesium Direct Bilirubin AST ALT Alkaline Phosphatase Total Creatine Kinase C-Reactive Protein Total Protein Albumin TSH Vancomycin Trough Crossmatch 12/19/16 12/19/16 12/19/16 16:50 18:01 23:04 WBC RBC Hgb Hct MCV MCHC RDW Plt Count Lymph % (Auto) [place] % (Auto) [place] # Baso # Seg Neutrophils % Seg Neutrophils # PT INR D-Dimer POC ABG pH POC ABG pCO2 POC ABG pO2 Sodium Potassium Chloride Carbon Dioxide BUN Creatinine Glucose POC Glucose 253 H 259 H 200 H Lactic Acid Calcium Phosphorus Magnesium Direct Bilirubin AST ALT Alkaline Phosphatase Total Creatine Kinase C-Reactive Protein Total Protein Albumin TSH Vancomycin Trough Crossmatch 12/20/16 12/20/16 12/20/16 00:58 02:57 04:09 WBC RBC Hgb Hct MCV MCHC RDW Plt Count Lymph % (Auto) [place] % (Auto) [place] # Baso # Seg Neutrophils % Seg Neutrophils # PT INR D-Dimer POC ABG pH POC ABG pCO2 POC ABG pO2 Sodium Potassium Chloride Carbon Dioxide BUN Creatinine Glucose POC Glucose 210 H 162 H 109 H Lactic Acid Calcium Phosphorus Magnesium Direct Bilirubin AST ALT Alkaline Phosphatase Total Creatine Kinase C-Reactive Protein Total Protein Albumin TSH Vancomycin Trough Crossmatch 12/20/16 12/20/16 12/20/16 05:11 05:57 07:41 WBC RBC Hgb Hct MCV MCHC RDW Plt Count Lymph % (Auto) [place] % (Auto) [place] # Baso # Seg Neutrophils % Seg Neutrophils # PT INR D-Dimer POC ABG pH 7.560 H POC ABG pCO2 28.2 L POC ABG pO2 Sodium Potassium Chloride Carbon Dioxide BUN Creatinine Glucose POC Glucose 121 H 170 H Lactic Acid Calcium Phosphorus Magnesium Direct Bilirubin AST ALT Alkaline Phosphatase Total Creatine Kinase C-Reactive Protein Total Protein Albumin TSH Vancomycin Trough Crossmatch 12/20/16 12/20/16 12/20/16 08:30 08:30 10:06 WBC RBC 3.36 L Hgb 10.1 L Hct 29.5 L MCV MCHC RDW Plt Count 114 L Lymph % (Auto) [place] % (Auto) [place] # Baso # Seg Neutrophils % Seg Neutrophils # PT INR D-Dimer POC ABG pH POC ABG pCO2 POC ABG pO2 Sodium Potassium Chloride 95.1 L Carbon Dioxide BUN 78 H Creatinine 5.0 H Glucose 181 H POC Glucose 155 H Lactic Acid Calcium 6.2 L Phosphorus Magnesium Direct Bilirubin AST ALT Alkaline Phosphatase Total Creatine Kinase C-Reactive Protein Total Protein Albumin TSH Vancomycin Trough Crossmatch 12/20/16 12/20/16 12/20/16 11:55 14:44 16:24 WBC RBC Hgb Hct MCV MCHC RDW Plt Count Lymph % (Auto) [place] % (Auto) [place] # Baso # Seg Neutrophils % Seg Neutrophils # PT INR D-Dimer POC ABG pH POC ABG pCO2 POC ABG pO2 Sodium Potassium Chloride Carbon Dioxide BUN Creatinine Glucose POC Glucose 124 H 171 H 143 H Lactic Acid Calcium Phosphorus Magnesium Direct Bilirubin AST ALT Alkaline Phosphatase Total Creatine Kinase C-Reactive Protein Total Protein Albumin TSH Vancomycin Trough Crossmatch 12/20/16 12/20/16 12/20/16 18:14 20:25 22:29 WBC RBC Hgb Hct MCV MCHC RDW Plt Count Lymph % (Auto) [place] % (Auto) [place] # Baso # Seg Neutrophils % Seg Neutrophils # PT INR D-Dimer POC ABG pH POC ABG pCO2 POC ABG pO2 Sodium Potassium Chloride Carbon Dioxide BUN Creatinine Glucose POC Glucose 144 H 130 H 146 H Lactic Acid Calcium Phosphorus Magnesium Direct Bilirubin AST ALT Alkaline Phosphatase Total Creatine Kinase C-Reactive Protein Total Protein Albumin TSH Vancomycin Trough Crossmatch 12/21/16 12/21/16 12/21/16 00:30 03:06 04:31 WBC RBC Hgb Hct MCV MCHC RDW Plt Count Lymph % (Auto) [place] % (Auto) [place] # Baso # Seg Neutrophils % Seg Neutrophils # PT INR D-Dimer POC ABG pH POC ABG pCO2 31.3 L POC ABG pO2 Sodium Potassium Chloride Carbon Dioxide BUN Creatinine Glucose POC Glucose 185 H 115 H Lactic Acid Calcium Phosphorus Magnesium Direct Bilirubin AST ALT Alkaline Phosphatase Total Creatine Kinase C-Reactive Protein Total Protein Albumin TSH Vancomycin Trough Crossmatch 12/21/16 12/21/16 12/21/16 04:45 06:38 06:41 WBC RBC Hgb Hct MCV MCHC RDW Plt Count Lymph % (Auto) [place] % (Auto) [place] # Baso # Seg Neutrophils % Seg Neutrophils # PT INR D-Dimer POC ABG pH POC ABG pCO2 POC ABG pO2 Sodium Potassium Chloride Carbon Dioxide BUN Creatinine Glucose POC Glucose 145 H 165 H 145 H Lactic Acid Calcium Phosphorus Magnesium Direct Bilirubin AST ALT Alkaline Phosphatase Total Creatine Kinase C-Reactive Protein Total Protein Albumin TSH Vancomycin Trough Crossmatch 12/21/16 12/21/16 12/21/16 09:35 09:35 10:14 WBC 11.8 H RBC 3.52 L Hgb 10.8 L Hct 31.3 L MCV MCHC RDW 13.0 L Plt Count 130 L Lymph % (Auto) [place] % (Auto) [place] # Baso # Seg Neutrophils % Seg Neutrophils # PT INR D-Dimer POC ABG pH POC ABG pCO2 POC ABG pO2 Sodium Potassium Chloride Carbon Dioxide 21 L BUN 98 H Creatinine 6.2 H Glucose 133 H POC Glucose 178 H Lactic Acid Calcium 6.7 L Phosphorus Magnesium Direct Bilirubin AST ALT Alkaline Phosphatase Total Creatine Kinase C-Reactive Protein Total Protein Albumin TSH Vancomycin Trough Crossmatch 12/21/16 12/21/16 12/21/16 12:22 14:28 15:59 WBC RBC Hgb Hct MCV MCHC RDW Plt Count Lymph % (Auto) [place] % (Auto) [place] # Baso # Seg Neutrophils % Seg Neutrophils # PT INR D-Dimer POC ABG pH POC ABG pCO2 POC ABG pO2 Sodium Potassium Chloride Carbon Dioxide BUN Creatinine Glucose POC Glucose 191 H 139 H 182 H Lactic Acid Calcium Phosphorus Magnesium Direct Bilirubin AST ALT Alkaline Phosphatase Total Creatine Kinase C-Reactive Protein Total Protein Albumin TSH Vancomycin Trough Crossmatch 12/21/16 12/21/16 12/21/16 18:23 20:19 22:02 WBC RBC Hgb Hct MCV MCHC RDW Plt Count Lymph % (Auto) [place] % (Auto) [place] # Baso # Seg Neutrophils % Seg Neutrophils # PT INR D-Dimer POC ABG pH POC ABG pCO2 POC ABG pO2 Sodium Potassium Chloride Carbon Dioxide BUN Creatinine Glucose POC Glucose 167 H 134 H 163 H Lactic Acid Calcium Phosphorus Magnesium Direct Bilirubin AST ALT Alkaline Phosphatase Total Creatine Kinase C-Reactive Protein Total Protein Albumin TSH Vancomycin Trough Crossmatch 12/22/16 12/22/16 12/22/16 00:09 01:55 04:00 WBC 12.0 H RBC 2.93 L Hgb 8.9 L Hct 26.1 L MCV MCHC RDW 13.0 L Plt Count 103 L Lymph % (Auto) [place] % (Auto) [place] # Baso # Seg Neutrophils % Seg Neutrophils # PT INR D-Dimer POC ABG pH POC ABG pCO2 POC ABG pO2 Sodium Potassium Chloride Carbon Dioxide BUN Creatinine Glucose POC Glucose 154 H 111 H Lactic Acid Calcium Phosphorus Magnesium Direct Bilirubin AST ALT Alkaline Phosphatase Total Creatine Kinase C-Reactive Protein Total Protein Albumin TSH Vancomycin Trough Crossmatch 12/22/16 12/22/16 12/22/16 04:00 04:09 05:22 WBC RBC Hgb Hct MCV MCHC RDW Plt Count Lymph % (Auto) [place] % (Auto) [place] # Baso # Seg Neutrophils % Seg Neutrophils # PT INR D-Dimer POC ABG pH POC ABG pCO2 34.7 L POC ABG pO2 Sodium Potassium Chloride 97.0 L Carbon Dioxide 20 L BUN 119 H Creatinine 6.9 H Glucose 143 H POC Glucose 151 H Lactic Acid Calcium 6.3 L Phosphorus Magnesium Direct Bilirubin AST ALT Alkaline Phosphatase Total Creatine Kinase C-Reactive Protein Total Protein Albumin TSH Vancomycin Trough Crossmatch 12/22/16 12/22/16 12/22/16 08:09 09:34 12:26 WBC RBC Hgb 8.9 L Hct 26.5 L MCV MCHC RDW Plt Count 96 L Lymph % (Auto) [place] % (Auto) [place] # Baso # Seg Neutrophils % Seg Neutrophils # PT INR D-Dimer POC ABG pH POC ABG pCO2 POC ABG pO2 Sodium Potassium Chloride Carbon Dioxide BUN Creatinine Glucose POC Glucose 113 H 190 H Lactic Acid Calcium Phosphorus Magnesium Direct Bilirubin AST ALT Alkaline Phosphatase Total Creatine Kinase C-Reactive Protein Total Protein Albumin TSH Vancomycin Trough Crossmatch 12/22/16 12/22/16 12/22/16 14:05 16:25 20:26 WBC RBC Hgb Hct MCV MCHC RDW Plt Count Lymph % (Auto) [place] % (Auto) [place] # Baso # Seg Neutrophils % Seg Neutrophils # PT INR D-Dimer POC ABG pH POC ABG pCO2 POC ABG pO2 Sodium Potassium Chloride Carbon Dioxide BUN Creatinine Glucose POC Glucose 160 H 106 H 106 H Lactic Acid Calcium Phosphorus Magnesium Direct Bilirubin AST ALT Alkaline Phosphatase Total Creatine Kinase C-Reactive Protein Total Protein Albumin TSH Vancomycin Trough Crossmatch 12/22/16 12/23/16 12/23/16 22:22 00:04 04:12 WBC RBC Hgb Hct MCV MCHC RDW Plt Count Lymph % (Auto) [place] % (Auto) [place] # Baso # Seg Neutrophils % Seg Neutrophils # PT INR D-Dimer POC ABG pH POC ABG pCO2 POC ABG pO2 Sodium Potassium Chloride Carbon Dioxide BUN Creatinine Glucose POC Glucose 154 H 171 H 136 H Lactic Acid Calcium Phosphorus Magnesium Direct Bilirubin AST ALT Alkaline Phosphatase Total Creatine Kinase C-Reactive Protein Total Protein Albumin TSH Vancomycin Trough Crossmatch 12/23/16 12/23/16 12/23/16 04:48 05:00 05:00 WBC RBC 2.67 L Hgb 8.1 L Hct 23.7 L MCV MCHC RDW 13.0 L Plt Count 89 L Lymph % (Auto) [place] % (Auto) [place] # Baso # Seg Neutrophils % Seg Neutrophils # PT INR D-Dimer POC ABG pH POC ABG pCO2 POC ABG pO2 123 H Sodium 135 L Potassium Chloride 96.1 L Carbon Dioxide BUN 83 H Creatinine 5.3 H Glucose 126 H POC Glucose Lactic Acid Calcium 7.0 L Phosphorus Magnesium Direct Bilirubin AST ALT Alkaline Phosphatase Total Creatine Kinase C-Reactive Protein Total Protein Albumin TSH Vancomycin Trough Crossmatch 12/23/16 12/23/16 12/23/16 07:30 07:44 11:31 WBC RBC Hgb Hct MCV MCHC RDW Plt Count Lymph % (Auto) [place] % (Auto) [place] # Baso # Seg Neutrophils % Seg Neutrophils # PT INR D-Dimer POC ABG pH POC ABG pCO2 POC ABG pO2 Sodium Potassium Chloride Carbon Dioxide BUN Creatinine Glucose POC Glucose 122 H 142 H Lactic Acid Calcium Phosphorus Magnesium Direct Bilirubin AST ALT Alkaline Phosphatase Total Creatine Kinase C-Reactive Protein Total Protein Albumin TSH Vancomycin Trough Crossmatch See Detail 12/23/16 12/23/16 12/23/16 12:12 13:44 16:07 WBC RBC Hgb Hct MCV MCHC RDW Plt Count Lymph % (Auto) [place] % (Auto) [place] # Baso # Seg Neutrophils % Seg Neutrophils # PT INR D-Dimer POC ABG pH POC ABG pCO2 POC ABG pO2 Sodium Potassium Chloride Carbon Dioxide BUN Creatinine Glucose POC Glucose 117 H 127 H 163 H Lactic Acid Calcium Phosphorus Magnesium Direct Bilirubin AST ALT Alkaline Phosphatase Total Creatine Kinase C-Reactive Protein Total Protein Albumin TSH Vancomycin Trough Crossmatch 12/23/16 12/23/16 12/24/16 17:51 23:53 04:50 WBC RBC Hgb 9.3 L Hct 26.9 L MCV MCHC RDW Plt Count 128 L Lymph % (Auto) [place] % (Auto) [place] # Baso # Seg Neutrophils % Seg Neutrophils # PT INR D-Dimer POC ABG pH POC ABG pCO2 POC ABG pO2 Sodium Potassium Chloride Carbon Dioxide BUN Creatinine Glucose POC Glucose 219 H 144 H Lactic Acid Calcium Phosphorus Magnesium Direct Bilirubin AST ALT Alkaline Phosphatase Total Creatine Kinase C-Reactive Protein Total Protein Albumin TSH Vancomycin Trough Crossmatch 12/24/16 12/24/16 12/24/16 04:50 05:19 11:53 WBC RBC Hgb Hct MCV MCHC RDW Plt Count Lymph % (Auto) [place] % (Auto) [place] # Baso # Seg Neutrophils % Seg Neutrophils # PT INR D-Dimer POC ABG pH POC ABG pCO2 POC ABG pO2 Sodium 134 L Potassium Chloride 94.6 L Carbon Dioxide BUN 61 H Creatinine 4.4 H Glucose 144 H POC Glucose 139 H 129 H Lactic Acid Calcium 7.4 L Phosphorus Magnesium Direct Bilirubin AST ALT Alkaline Phosphatase Total Creatine Kinase C-Reactive Protein Total Protein Albumin TSH Vancomycin Trough Crossmatch 12/24/16 12/25/16 12/25/16 16:59 00:09 05:15 WBC RBC Hgb Hct MCV MCHC RDW Plt Count Lymph % (Auto) [place] % (Auto) [place] # Baso # Seg Neutrophils % Seg Neutrophils # PT INR D-Dimer POC ABG pH POC ABG pCO2 POC ABG pO2 Sodium 147 H D Potassium Chloride 107.8 H Carbon Dioxide BUN 45 H Creatinine 3.6 H Glucose 150 H POC Glucose 175 H 160 H Lactic Acid Calcium 7.5 L Phosphorus Magnesium Direct Bilirubin AST ALT Alkaline Phosphatase Total Creatine Kinase C-Reactive Protein Total Protein Albumin TSH Vancomycin Trough Crossmatch 12/25/16 12/25/16 12/25/16 05:40 18:36 23:30 WBC RBC Hgb Hct MCV MCHC RDW Plt Count Lymph % (Auto) [place] % (Auto) [place] # Baso # Seg Neutrophils % Seg Neutrophils # PT INR D-Dimer POC ABG pH POC ABG pCO2 POC ABG pO2 Sodium Potassium Chloride Carbon Dioxide BUN Creatinine Glucose POC Glucose 140 H 133 H 212 H Lactic Acid Calcium Phosphorus Magnesium Direct Bilirubin AST ALT Alkaline Phosphatase Total Creatine Kinase C-Reactive Protein Total Protein Albumin TSH Vancomycin Trough Crossmatch 12/26/16 12/26/16 12/26/16 05:46 06:00 06:00 WBC RBC Hgb 8.0 L Hct 24.1 L MCV MCHC RDW Plt Count Lymph % (Auto) [place] % (Auto) [place] # Baso # Seg Neutrophils % Seg Neutrophils # PT INR D-Dimer POC ABG pH POC ABG pCO2 POC ABG pO2 Sodium Potassium Chloride Carbon Dioxide BUN 70 H Creatinine 5.4 H Glucose 140 H POC Glucose 165 H Lactic Acid Calcium 7.3 L Phosphorus Magnesium Direct Bilirubin AST ALT Alkaline Phosphatase Total Creatine Kinase C-Reactive Protein Total Protein Albumin TSH Vancomycin Trough Crossmatch 12/26/16 12/26/16 12/27/16 11:52 16:36 00:19 WBC RBC Hgb Hct MCV MCHC RDW Plt Count Lymph % (Auto) [place] % (Auto) [place] # Baso # Seg Neutrophils % Seg Neutrophils # PT INR D-Dimer POC ABG pH POC ABG pCO2 POC ABG pO2 Sodium Potassium Chloride Carbon Dioxide BUN Creatinine Glucose POC Glucose 209 H 191 H 184 H Lactic Acid Calcium Phosphorus Magnesium Direct Bilirubin AST ALT Alkaline Phosphatase Total Creatine Kinase C-Reactive Protein Total Protein Albumin TSH Vancomycin Trough Crossmatch 12/27/16 12/27/16 12/27/16 05:11 05:11 05:19 WBC RBC 2.73 L Hgb 8.2 L Hct 24.0 L MCV MCHC RDW 12.9 L Plt Count 126 L Lymph % (Auto) [place] % (Auto) [place] # Baso # Seg Neutrophils % Seg Neutrophils # PT INR D-Dimer POC ABG pH POC ABG pCO2 POC ABG pO2 Sodium 135 L Potassium Chloride 95.4 L Carbon Dioxide BUN 56 H Creatinine 4.2 H Glucose 190 H POC Glucose 220 H Lactic Acid Calcium 7.5 L Phosphorus Magnesium Direct Bilirubin AST ALT Alkaline Phosphatase Total Creatine Kinase C-Reactive Protein Total Protein Albumin TSH Vancomycin Trough Crossmatch 12/27/16 12/27/16 12/27/16 11:04 11:32 16:17 WBC RBC Hgb Hct MCV MCHC RDW Plt Count Lymph % (Auto) [place] % (Auto) [place] # Baso # Seg Neutrophils % Seg Neutrophils # PT INR D-Dimer POC ABG pH POC ABG pCO2 POC ABG pO2 79 L Sodium Potassium Chloride Carbon Dioxide BUN Creatinine Glucose POC Glucose 175 H 185 H Lactic Acid Calcium Phosphorus Magnesium Direct Bilirubin AST ALT Alkaline Phosphatase Total Creatine Kinase C-Reactive Protein Total Protein Albumin TSH Vancomycin Trough Crossmatch 12/27/16 12/28/16 12/28/16 23:45 05:10 05:34 WBC RBC Hgb Hct MCV MCHC RDW Plt Count Lymph % (Auto) [place] % (Auto) [place] # Baso # Seg Neutrophils % Seg Neutrophils # PT INR D-Dimer POC ABG pH POC ABG pCO2 POC ABG pO2 Sodium 136 L Potassium Chloride 94.1 L Carbon Dioxide BUN 74 H Creatinine 5.6 H Glucose 177 H POC Glucose 176 H 178 H Lactic Acid Calcium 7.5 L Phosphorus Magnesium Direct Bilirubin AST ALT Alkaline Phosphatase Total Creatine Kinase C-Reactive Protein Total Protein Albumin TSH Vancomycin Trough Crossmatch 12/28/16 12/28/16 12/28/16 10:27 11:48 18:04 WBC RBC Hgb Hct MCV MCHC RDW Plt Count Lymph % (Auto) [place] % (Auto) [place] # Baso # Seg Neutrophils % Seg Neutrophils # PT INR D-Dimer POC ABG pH POC ABG pCO2 31.7 L POC ABG pO2 Sodium Potassium Chloride Carbon Dioxide BUN Creatinine Glucose POC Glucose 192 H 132 H Lactic Acid Calcium Phosphorus Magnesium Direct Bilirubin AST ALT Alkaline Phosphatase Total Creatine Kinase C-Reactive Protein Total Protein Albumin TSH Vancomycin Trough Crossmatch 12/28/16 12/28/16 12/29/16 20:17 21:44 00:30 WBC RBC Hgb Hct MCV MCHC RDW Plt Count Lymph % (Auto) [place] % (Auto) [place] # Baso # Seg Neutrophils % Seg Neutrophils # PT INR D-Dimer POC ABG pH POC ABG pCO2 30.5 L POC ABG pO2 Sodium Potassium Chloride Carbon Dioxide BUN Creatinine Glucose POC Glucose 192 H 170 H Lactic Acid Calcium Phosphorus Magnesium Direct Bilirubin AST ALT Alkaline Phosphatase Total Creatine Kinase C-Reactive Protein Total Protein Albumin TSH Vancomycin Trough Crossmatch 12/29/16 12/29/16 04:30 06:21 WBC RBC Hgb Hct MCV MCHC RDW Plt Count Lymph % (Auto) [place] % (Auto) [place] # Baso # Seg Neutrophils % Seg Neutrophils # PT INR D-Dimer POC ABG pH POC ABG pCO2 POC ABG pO2 Sodium 136 L Potassium Chloride 93.8 L Carbon Dioxide 19 L BUN 96 H Creatinine 6.7 H Glucose 217 H POC Glucose 245 H Lactic Acid Calcium 7.6 L Phosphorus Magnesium Direct Bilirubin AST ALT Alkaline Phosphatase Total Creatine Kinase C-Reactive Protein Total Protein Albumin TSH Vancomycin Trough Crossmatch CT scan - chest: image reviewed Allied health notes reviewed: RT
[2016-12-29] MEDS: BABY ASPIRIN PO SCH (10:57)
[2016-12-29] MEDS: FOLVITE PO SCH (10:57)
[2016-12-29] MEDS: LEVEMIR SUB-Q SCH (10:57)
[2016-12-29] MEDS: PROTONIX PO SCH (10:57)
[2016-12-29] MEDS: BACTRIM DS PO SCH ×2 (10:57→21:43)
[2016-12-29] MEDS: Centrum Liq PO SCH (10:57)
[2016-12-29] MEDS: VITAMIN B-1 PO SCH (12:45)
--- NOTE | 2016-12-29 14:53 | Progress Note ---
Assessment and Plan - Patient Problems (1) Acute kidney failure with tubular necrosis Current Visit: Yes Status: Acute Plan to address problem: Electrolytes within normal limits, renal parameters improved on HD, however patient remains oliguric. Will continue intermittent HD on // schedule until significant renal recovery is seen. recommend to change vascath to permcath by IR given further HD requirement. Will increase UF to 2L as tolerated. D/w Dr Vogel. (2) Acute hypoxemic respiratory failure Current Visit: Yes Status: Acute Plan to address problem: s/p extubation today, pt without acute respiratory distress. (3) Septic shock Current Visit: Yes Status: Acute Plan to address problem: resolved. BP stable off vasopressor support. Continue antibiotics and supportive care . (4) Systolic CHF, acute on chronic Current Visit: No Status: Acute Plan to address problem: Volume status improved on HD, will target UF 2L to achieve even I/Os (5) Anemia in chronic illness Current Visit: Yes Status: Chronic Plan to address problem: Hb stable at 8.2, continue EPO w/ HD (6) Diabetes Current Visit: No Status: Chronic Qualifiers: Diabetes mellitus type: D Diabetes mellitus complication status: D Diabetes mellitus complication detail: D Diabetic retinopathy severity: D Proliferative retinopathy type: P Diabetes mellitus macular edema: D Diabetes mellitus exterminator termite insulin use: D Laterality: L Chronic kidney disease stage: C Plan to address problem: glucose management by primary attending Subjective Date of service: 12/29/16 Principal diagnosis: Acute hypoxemic respiratory failure, shock Interval history: Patient s/p extubation, awake alert, in no acute respiratory distress. pt still remains oliguric. Objective - Vital Signs Vital signs: Vital Signs - 12hr 12/29/16 12/29/16 12/29/16 03:00 03:30 03:37 Temperature Pulse Rate 97 H 97 H Pulse Rate [ Bilateral Throughout] Pulse Rate [ 74 From Monitor] Respiratory 18 17 20 Rate Respiratory Rate [Bilateral Throughout] Blood Pressure 142/86 137/86 O2 Sat by Pulse 97 97 97 Oximetry O2 Sat by Pulse Oximetry [ Bilateral Throughout] 12/29/16 12/29/16 12/29/16 03:44 04:00 04:30 Temperature 97.8 F Pulse Rate 106 H 95 H Pulse Rate [ Bilateral Throughout] Pulse Rate [ From Monitor] Respiratory 19 18 20 Rate Respiratory Rate [Bilateral Throughout] Blood Pressure 152/86 157/76 O2 Sat by Pulse 97 99 98 Oximetry O2 Sat by Pulse Oximetry [ Bilateral Throughout] 12/29/16 12/29/16 12/29/16 05:00 05:30 05:50 Temperature Pulse Rate 91 H 93 H Pulse Rate [ 107 H Bilateral Throughout] Pulse Rate [ From Monitor] Respiratory 18 16 Rate Respiratory 20 Rate [Bilateral Throughout] Blood Pressure 152/86 134/74 O2 Sat by Pulse 96 Oximetry O2 Sat by Pulse Oximetry [ Bilateral Throughout] 12/29/16 12/29/16 12/29/16 06:00 06:08 06:30 Temperature Pulse Rate 92 H 90 Pulse Rate [ 101 H Bilateral Throughout] Pulse Rate [ From Monitor] Respiratory 19 18 Rate Respiratory 24 Rate [Bilateral Throughout] Blood Pressure 133/78 140/81 O2 Sat by Pulse 94 97 Oximetry O2 Sat by Pulse Oximetry [ Bilateral Throughout] 12/29/16 12/29/16 12/29/16 07:00 07:30 07:53 Temperature 97.6 F Pulse Rate 93 H 93 H Pulse Rate [ Bilateral Throughout] Pulse Rate [ From Monitor] Respiratory 18 20 Rate Respiratory Rate [Bilateral Throughout] Blood Pressure 136/83 144/83 O2 Sat by Pulse 97 96 Oximetry O2 Sat by Pulse Oximetry [ Bilateral Throughout] 12/29/16 12/29/16 12/29/16 08:00 08:06 08:30 Temperature Pulse Rate 96 H 97 H 101 H Pulse Rate [ Bilateral Throughout] Pulse Rate [ From Monitor] Respiratory 22 24 15 Rate Respiratory Rate [Bilateral Throughout] Blood Pressure 135/86 135/86 138/90 O2 Sat by Pulse 97 97 98 Oximetry O2 Sat by Pulse Oximetry [ Bilateral Throughout] 12/29/16 12/29/16 12/29/16 09:00 09:30 10:00 Temperature Pulse Rate 97 H 98 H 96 H Pulse Rate [ Bilateral Throughout] Pulse Rate [ From Monitor] Respiratory 25 H 17 16 Rate Respiratory Rate [Bilateral Throughout] Blood Pressure 135/83 140/73 133/80 O2 Sat by Pulse 97 98 97 Oximetry O2 Sat by Pulse Oximetry [ Bilateral Throughout] 12/29/16 12/29/16 12/29/16 10:30 11:00 11:22 Temperature Pulse Rate 90 81 85 Pulse Rate [ Bilateral Throughout] Pulse Rate [ From Monitor] Respiratory 21 19 24 Rate Respiratory Rate [Bilateral Throughout] Blood Pressure 136/78 126/69 126/69 O2 Sat by Pulse 97 98 97 Oximetry O2 Sat by Pulse Oximetry [ Bilateral Throughout] 12/29/16 12/29/16 12/29/16 11:30 12:00 12:30 Temperature 98.1 F Pulse Rate 101 H 97 H 93 H Pulse Rate [ Bilateral Throughout] Pulse Rate [ From Monitor] Respiratory 19 19 22 Rate Respiratory Rate [Bilateral Throughout] Blood Pressure 128/78 125/78 134/81 O2 Sat by Pulse 95 90 93 Oximetry O2 Sat by Pulse Oximetry [ Bilateral Throughout] 12/29/16 12/29/16 12/29/16 12:39 13:00 14:15 Temperature 98.1 F Pulse Rate 96 H 92 H Pulse Rate [ Bilateral Throughout] Pulse Rate [ From Monitor] Respiratory 19 22 Rate Respiratory Rate [Bilateral Throughout] Blood Pressure 141/86 131/79 O2 Sat by Pulse 98 98 Oximetry O2 Sat by Pulse 97 Oximetry [ Bilateral Throughout] 12/29/16 12/29/16 14:25 14:30 Temperature Pulse Rate 90 90 Pulse Rate [ Bilateral Throughout] Pulse Rate [ From Monitor] Respiratory Rate Respiratory Rate [Bilateral Throughout] Blood Pressure 137/84 137/82 O2 Sat by Pulse Oximetry O2 Sat by Pulse Oximetry [ Bilateral Throughout] - General Appearance General appearance: well-developed, well-nourished, appears stated age EENT: ATNC, PERRL, mucous membranes moist Neck: no JVD Respiratory: Present: Decreased Breath Sounds Cardiology: regular, S1S2 Gastrointestinal: normal, normoactive bowel sounds Integumentary: no rash, other (no edema ) Neurologic: no focal deficit, alert and oriented x3, strength 5/5, CN 3-12 intact Psychiatric: mood/affect appropriate, cooperative - Lab 12/27/16 05:11 12/29/16 04:30 Most recent lab results Calcium 7.6 mg/dL (8.4-10.2) L 12/29/16 04:30 Phosphorus 5.4 mg/dL (2.5-4.5) H D 12/18/16 18:21 Magnesium 2.5 mg/dL (1.7-2.3) H 12/17/16 09:10
[2016-12-29] MEDS: PROCRIT IV PRN (17:00)
[2016-12-29] MEDS: HEPARIN IV PRN (18:10)
--- NOTE | 2016-12-29 19:07 | Discharge Summary ---
Providers - Providers Date of Admission: 12/06/16 18:25 Date of discharge: 12/29/16 Attending physician: WALT DUNBAR 12/06/16 18:45 Consult to Physician [CONS] Routine Consulting Provider: BRENT FRYE Reason For Exam: acute on chronic chf/Resp failure Place consult to:: answering service Notified:: yes Time called:: 19:58 12/07/16 04:30 Speech Therapy Evaluation and Treat [CONS] Routine Reason For Exam: failed swallow screen 12/09/16 14:47 Consult to Dietitian/Nutrition [CONS] Routine Physician Instructions: Reason For Exam: Reason for Consult: Write/Manage Tube Feeding 12/12/16 12:36 Speech Therapy Evaluation and Treat [CONS] Routine Reason For Exam: post extubation 12/13/16 13:07 Consult to Physician [CONS] Routine Consulting Provider: ALAN ABRAHAM Reason For Exam: Persistent Fevers with Encephalopathy Place consult to:: Alan Abraham Notified:: Answering Service notified Phone number called:: [phone] Was contact made?: Yes 12/14/16 15:34 Consult to Physician [CONS] Urgent Consulting Provider: ALYSON VILLAFANA Reason For Exam: encephalopathy Place consult to:: Shruti Rose Notified:: message left on answering machine Phone number called:: [phone] Was contact made?: No If yes, spoke with:: answering machine Time called:: 15:36 12/16/16 13:40 Consult to Physician [CONS] Routine Consulting Provider: HANNAH LAGOS Reason For Exam: BRITTANY Place consult to:: Notified:: yes Was contact made?: Yes 12/18/16 07:05 Consult to Interventional Radiology [CONS] Urgent Consulting Provider: KRISHAN ROBERT Reason For Exam: BRITTANY, needs vascath placement for HD. Notified:: [facility] 12/29/16 14:58 Consult to Interventional Radiology [CONS] Routine Consulting Provider: KRISHAN ROBERT Reason For Exam: permcath placement for residential HD Place consult to:: [facility] Notified:: office Phone number called:: [phone] Was contact made?: Yes If yes, spoke with:: javata Time called:: 15:39 Primary care physician: FELECIA IRAHETA MD Hospitalization Condition: Critical Disposition: DC/TX ANOTHER TYPE HEALTHCARE - Discharge Diagnoses (1) Septic shock Status: Acute (2) Acute hypoxemic respiratory failure Status: Acute (3) Acute kidney failure with tubular necrosis Status: Acute (4) CAD (coronary artery disease) Status: Chronic Qualifiers: Coronary Disease-Associated Artery/Lesion type: C [place] vs. transplanted heart: N Associated angina: A (5) Cardiomyopathy Status: Chronic (6) Diabetes Status: Chronic Qualifiers: Diabetes mellitus type: type 2 Diabetes mellitus complication status: D Diabetes mellitus complication detail: D Diabetic retinopathy severity: D Proliferative retinopathy type: P Diabetes mellitus macular edema: D Diabetes mellitus tank terminal gauger insulin use: D Laterality: L Chronic kidney disease stage: C (7) Sepsis Status: Acute Qualifiers: Sepsis type: S (8) Pneumonia Status: Acute Qualifiers: Pneumonia type: P Aspiration pneumonia type: A Laterality: L Lung location: L (9) Acute on chronic systolic (congestive) heart failure Status: Acute Exam - Constitutional Vitals: Temp Pulse Resp BP Pulse Ox 98.1 F 101 H 15 132/74 93 12/29/16 18:07 12/29/16 18:07 12/29/16 18:07 12/29/16 18:07 12/29/16 18:07 Plan Activity: advance as tolerated Diet: other (tube feed) Follow up with: PRIMARY MD MYRTLE [Primary Care Provider] - 3-5 Days
--- NOTE | 2016-12-29 19:51 | Progress Note ---
Subjective Date of service: 12/29/16 Principal diagnosis: Acute hypoxemic respiratory failure, shock Interval history: Improved. More awake. PHYSICAL EXAM Vital signs - temp 102.2 chest - mild b/l rhonchi cvs - s1s2 abd - bs+ LABS See lab section ASSESSMENT 1. Pneumonia 2. Acute respiratory failure 3. Encephalopathy 4. CHF RECOMMENDATION 1. Plan for d/c to LTAC. 2. CONTINUE ORAL BACTRIM. Objective - Constitutional Vitals: Vital Signs Temp Pulse Resp BP Pulse Ox 98.1 F 90 15 138/80 96 12/29/16 18:07 12/29/16 19:00 12/29/16 19:00 12/29/16 19:30 12/29/16 19:30 Temperature -Last 24 Hours Temperature 98.1 F Temperature 98.1 F Temperature 98.1 F Temperature 98.1 F Temperature 97.6 F Temperature 97.8 F Temperature 98.8 F Temperature 98.8 F - Labs CBC & Chem 7: 12/27/16 05:11 12/29/16 04:30 Labs: Abnormal lab results 12/25/16 12/25/16 12/25/16 Range/Units 05:40 18:36 23:30 POC ABG pCO2 (35-45) POC ABG pO2 (80-105) Sodium (137-145) mmol/L Chloride (98-107) mmol/L Carbon Dioxide (22-30) mmol/L BUN (9-20) mg/dL Creatinine (0.8-1.5) mg/dL Glucose (75-100) mg/dL POC Glucose 140 H 133 H 212 H (70-105) Calcium (8.4-10.2) mg/dL 12/26/16 12/26/16 12/26/16 Range/Units 05:46 11:52 16:36 POC ABG pCO2 (35-45) POC ABG pO2 (80-105) Sodium (137-145) mmol/L Chloride (98-107) mmol/L Carbon Dioxide (22-30) mmol/L BUN (9-20) mg/dL Creatinine (0.8-1.5) mg/dL Glucose (75-100) mg/dL POC Glucose 165 H 209 H 191 H (70-105) Calcium (8.4-10.2) mg/dL 12/27/16 12/27/16 12/27/16 Range/Units 00:19 05:19 11:04 POC ABG pCO2 (35-45) POC ABG pO2 79 L (80-105) Sodium (137-145) mmol/L Chloride (98-107) mmol/L Carbon Dioxide (22-30) mmol/L BUN (9-20) mg/dL Creatinine (0.8-1.5) mg/dL Glucose (75-100) mg/dL POC Glucose 184 H 220 H (70-105) Calcium (8.4-10.2) mg/dL 12/27/16 12/27/16 12/27/16 Range/Units 11:32 16:17 23:45 POC ABG pCO2 (35-45) POC ABG pO2 (80-105) Sodium (137-145) mmol/L Chloride (98-107) mmol/L Carbon Dioxide (22-30) mmol/L BUN (9-20) mg/dL Creatinine (0.8-1.5) mg/dL Glucose (75-100) mg/dL POC Glucose 175 H 185 H 176 H (70-105) Calcium (8.4-10.2) mg/dL 12/28/16 12/28/16 12/28/16 Range/Units 05:34 10:27 11:48 POC ABG pCO2 31.7 L (35-45) POC ABG pO2 (80-105) Sodium (137-145) mmol/L Chloride (98-107) mmol/L Carbon Dioxide (22-30) mmol/L BUN (9-20) mg/dL Creatinine (0.8-1.5) mg/dL Glucose (75-100) mg/dL POC Glucose 178 H 192 H (70-105) Calcium (8.4-10.2) mg/dL 12/28/16 12/28/16 12/28/16 Range/Units 18:04 20:17 21:44 POC ABG pCO2 30.5 L (35-45) POC ABG pO2 (80-105) Sodium (137-145) mmol/L Chloride (98-107) mmol/L Carbon Dioxide (22-30) mmol/L BUN (9-20) mg/dL Creatinine (0.8-1.5) mg/dL Glucose (75-100) mg/dL POC Glucose 132 H 192 H (70-105) Calcium (8.4-10.2) mg/dL 12/29/16 12/29/16 12/29/16 Range/Units 00:30 04:30 06:21 POC ABG pCO2 (35-45) POC ABG pO2 (80-105) Sodium 136 L (137-145) mmol/L Chloride 93.8 L (98-107) mmol/L Carbon Dioxide 19 L (22-30) mmol/L BUN 96 H (9-20) mg/dL Creatinine 6.7 H (0.8-1.5) mg/dL Glucose 217 H (75-100) mg/dL POC Glucose 170 H 245 H (70-105) Calcium 7.6 L (8.4-10.2) mg/dL 12/29/16 12/29/16 Range/Units 11:47 17:39 POC ABG pCO2 (35-45) POC ABG pO2 (80-105) Sodium (137-145) mmol/L Chloride (98-107) mmol/L Carbon Dioxide (22-30) mmol/L BUN (9-20) mg/dL Creatinine (0.8-1.5) mg/dL Glucose (75-100) mg/dL POC Glucose 285 H 178 H (70-105) Calcium (8.4-10.2) mg/dL
[2016-12-29 20:50] VITALS: BP 139/80
[2016-12-29 21:36] LABS: ISTAT Base Excess 3; ISTAT HCO3 25.1; ISTAT PCO2 27.1 (35-45); ISTAT PH 7.576 (7.35-7.45); ISTAT PO2 58 (80-105); ISTAT SO2 94; ISTAT TCO2 26
[2016-12-29] MEDS: ZOCOR PO SCH (21:44)
[2016-12-30] MEDS ORDERED: ANCEF/STERILE WATER 2 GM/20 ML 2 GM/20 ML SYRINGE IV NR (08:00)
== END 2016-12-29 22:17 | DRG 853 ==
LOC: ED 14:40 → CC1 18:25
PROVIDERS: ADMIT Internal Medicine; ATTEND Internal Medicine
PROC: 5A1955Z Respiratory Ventilation, Greater than 96 Consecutive Hours (ICD-10-PCS; principal; 2016-12-06)
PROC: 0BH17EZ Insertion of Endotracheal Airway into Trachea, Via Natural or Artificial Opening (ICD-10-PCS; 2016-12-06)
PROC: 02HV33Z Insertion of Infusion Device into Superior Vena Cava, Percutaneous Approach (ICD-10-PCS; 2016-12-06)
PROC: 4A033R1 Measurement of Arterial Saturation, Peripheral, Percutaneous Approach (ICD-10-PCS; 2016-12-06)
PROC: 05H533Z Insertion of Infusion Device into Right Subclavian Vein, Percutaneous Approach (ICD-10-PCS; 2016-12-17)
PROC: 06HN33Z Insertion of Infusion Device into Left Femoral Vein, Percutaneous Approach (ICD-10-PCS; 2016-12-18)
PROC: B54CZZA Ultrasonography of Left Lower Extremity Veins, Guidance (ICD-10-PCS; 2016-12-18)
PROC: 30233N1 Transfusion of Nonautologous Red Blood Cells into Peripheral Vein, Percutaneous Approach (ICD-10-PCS; 2016-12-23)
PROC: 5A1D60Z (ICD-10-PCS; 2016-12-23)
PROC: 03733ZZ Dilation of Right Subclavian Artery, Percutaneous Approach (ICD-10-PCS; 2016-12-25)
PROC: B41F1ZZ Fluoroscopy of Right Lower Extremity Arteries using Low Osmolar Contrast (ICD-10-PCS; 2016-12-25)
PROC: B31H1ZZ Fluoroscopy of Right Upper Extremity Arteries using Low Osmolar Contrast (ICD-10-PCS; 2016-12-25)
PROC: 0JPV3XZ Removal of Tunneled Vascular Access Device from Upper Extremity Subcutaneous Tissue and Fascia, Percutaneous Approach (ICD-10-PCS; 2016-12-25)
DX: A41.9 Sepsis, unspecified organism (principal); R65.21 Severe sepsis with septic shock; I50.23 Acute on chronic systolic (congestive) heart failure; J96.01 Acute respiratory failure with hypoxia; J13 Pneumonia due to Streptococcus pneumoniae; N17.0 Acute kidney failure with tubular necrosis; G92 Toxic encephalopathy; E13.10 Other specified diabetes mellitus with ketoacidosis without coma; I42.9 Cardiomyopathy, unspecified; I13.0 Hypertensive heart and chronic kidney disease with heart failure and stage 1 through stage 4 chronic kidney disease, or unspecified chronic kidney disease; E87.0 Hyperosmolality and hypernatremia; D63.8 Anemia in other chronic diseases classified elsewhere; F10.10 Alcohol abuse, uncomplicated; D69.6 Thrombocytopenia, unspecified; F17.210 Nicotine dependence, cigarettes, uncomplicated; N18.9 Chronic kidney disease, unspecified; E87.5 Hyperkalemia; E83.51 Hypocalcemia; B19.20 Unspecified viral hepatitis C without hepatic coma; I25.10 Atherosclerotic heart disease of native coronary artery without angina pectoris; E78.5 Hyperlipidemia, unspecified; I25.2 Old myocardial infarction; Z95.5 Presence of coronary angioplasty implant and graft; Z82.49 Family history of ischemic heart disease and other diseases of the circulatory system; Z91.19 Patient's noncompliance with other medical treatment and regimen
CPT/HCPCS: 36415; 36430; 36600; 37246; 70450; 71010; 71250; 72125; 74000; 74176; 75710; 76937; 80048; 80053; 80074; 80202; 80307; 80320; 81001; 82140; 82550; 82553; 82607; 82803; 82962; 83735; 84100; 84439; 84443; 84484; 85014; 85018; 85025; 85027; 85049; 85379; 85610; 85730; 86140; 86850; 86900; 86901; 86920; 87040; 87070; 87076; 87086; 87186; 87205; 90686; 90732; 93005; 93010; 93306; 93970; 94002; 94003; 94640; 94660; 94760; 96361; 96365; 96367; 96375; 96376; C1725; C1760; C1769; C1887; C9113; G0480; G8996-GN; G8997-GN; J0330; J0456; J0690; J0696; J0885; J1100; J1200; J1265; J1450; J1630; J1644; J1650; J1815; J1818; J1940; J1956; J2020; J2060; J2250; J2370; J2543; J2765; J2930; J3010; J3246; J3370; J7030; J7040; J7050; J7070; P9016; P9045; P9047; Q9967

== ENCOUNTER 2017-09-27 10:56 | Inpatient (IN) | payer MEDICARE ==
[2017-09-27] MEDS ORDERED: ATIVAN IV ONE (11:34)
[2017-09-27] MEDS ORDERED: NACL 0.9% 500 ML 500 ML IV ONE (11:34)
[2017-09-27] MEDS ORDERED: KEPPRA 1,000 MG/NS 0.75% 100ML 1,000 MG/100 ML BAG IV ONE (11:34)
[2017-09-27 11:43] LABS: Hematocrit 39.3 % (35.5-45.6); Hemoglobin 12.6 gm/dl (11.8-15.2); Mean Corpuscular HGB Conc 32 % (32-34); Mean Corpuscular Hemoglobin 31 pg (28-32); Mean Corpuscular Volume 96 fl (84-94); Red Blood Count 4.08 M/mm3 (3.65-5.03); Red Cell Distribution Width 14.1 % (13.2-15.2); White Blood Count 2.9 K/mm3 (4.5-11.0)
[2017-09-27 11:51] LABS: INR 1.06 (0.87-1.13); Partial Thromboplastin Time 28.8 Sec. (24.2-36.6)
[2017-09-27 11:55] LABS: Platelet Count 99 K/mm3 (140-440)
[2017-09-27 12:07] LABS: Anion Gap 28 mmol/L; BUN/Creatinine Ratio 6; Blood Urea Nitrogen 5 mg/dL (9-20); Calcium 8.5 mg/dL (8.4-10.2); Carbon Dioxide 18 mmol/L (22-30); Chloride 83.1 mmol/L (98-107); Potassium 4.6 mmol/L (3.6-5.0); Sodium 124 mmol/L (137-145)
[2017-09-27 12:08] LABS: Magnesium 1.5 mg/dL (1.7-2.3)
[2017-09-27] MEDS ORDERED: MAGNESIUM SULFATE 2GM/50ML 2 GM/50 ML BAG IV ONE (12:08)
[2017-09-27 12:09] LABS: Bilirubin,Urine NEG (Negative); Blood,Urine NEG (Negative); Ketones,Urine NEG (Negative); Leukocyte Esterase,Urine NEG (Negative); Mucus,Urine FEW /HPF; Nitrite,Urine NEG (Negative); Protein,Urine <15 mg/dL mg/dL (Negative); RBC,Urine < 1.0 /HPF (0.0-6.0); Urobilinogen,Urine < 2.0 mg/dL (<2.0); WBC,Urine < 1.0 /HPF (0.0-6.0)
--- NOTE | 2017-09-27 12:13 | Emergency Department Report ---
ED General Adult HPI - General Chief complaint: Hyperglycemia Stated complaint: NUMB R ARM Time Seen by Provider: 09/27/17 11:24 Source: patient, old records reviewed Mode of arrival: Stretcher Limitations: No Limitations - History of Present Illness Initial comments: 62-year-old male with a past medical history of CHF, diabetes, CAD with 7 stents , and hepatitis C presents to the hospital with complaints of involuntary right arm spasms since this a.m. and high blood glucose noted upon EMS arrival. Patient states he started having involuntary spasms of his right hand that then spread to his whole right arm. Symptoms are intermittent and uncontrollable. Denies any other body spasms. 3 days ago patient tripped and fell sustaining a laceration to his right brow. Patient did not seek medical care at that time and has a healing wound to the right brow. He denies LOC or persistent headache. Patient is on Coumadin for unknown reason (denies afib, pe,dvt,cva). Patient thinks he might have missed his single dose of insulin yesterday but apparently took a dose this morning prior to arrival. Patient denies any new weakness, numbness, or pain. [facility] Previous echocardiogram from 11/2016 reviewed, dilated cardiomyopathy with EF of 30-35% - Related Data Previous Rx's Medication Instructions Recorded Last Taken Type Multivitamins Liq [Multiple 5 ml PO QDAY oral.liqd 12/29/16 Unknown Rx Vitamin Liq (Theragran)] Thiamine [Vitamin B-1] 100 mg PO QDAY tablet 12/29/16 Unknown Rx ALPRAZolam [Xanax TAB] 1 mg PO QHS PRN #30 tablet 01/29/17 Unknown Rx Aspirin [Aspirin BABY CHEW TAB] 81 mg PO QDAY #30 tab.chew 01/29/17 Unknown Rx Carvedilol [Coreg] 3.125 mg PO BID #60 tablet 01/29/17 Unknown Rx Doxepin [SINEquan] 100 mg PO QHS capsule 01/29/17 Unknown Rx Folic Acid [Folvite] 1 mg PO QDAY #30 tablet 01/29/17 Unknown Rx HYDROcodone/APAP 10-325 [[place] 1 each PO Q4H PRN #45 tablet 01/29/17 Unknown Rx 10-325 mg TAB] Hypromellose [Isopto Tears 0.5%] 2 drops OU Q4H PRN #1 bottle 01/29/17 Unknown Rx Insulin Detemir [Levemir] 15 units SUB-Q DAILY 30 Days units 01/29/17 Unknown Rx Lisinopril [Zestril TAB] 2.5 mg PO QDAY #15 tablet 01/29/17 Unknown Rx Pantoprazole [Protonix TAB] 20 mg PO QDAY #30 tablet. 01/29/17 Unknown Rx Sevelamer Carbonate [Renvela] 1,600 mg PO TIDWM #180 tablet 01/29/17 Unknown Rx Simvastatin [Zocor TAB] 20 mg PO QHS #30 tablet 01/29/17 Unknown Rx Warfarin [Coumadin] 2 mg PO DAILY@1700 #10 tablet 01/29/17 Unknown Rx Allergies Allergy/AdvReac Type Severity Reaction Status Date / Time heparin Allergy Severe THROMBOCYTO Verified 09/27/17 11:14 [facility] ED Review of Systems ROS: Stated complaint: NUMB R ARM Other details as noted in HPI Comment: All other systems reviewed and negative Other: Constitutional: No fevers chills Eyes: No eye pain visual changes ENT: No ear pain or throat pain Neck: Denies pain Respiratory: Denies cough wheezing shortness of breath Cardiovascular: Denies chest pain, palpitations, syncope GI: Denies abdominal pain, nausea, vomiting, diarrhea : Denies dysuria Musculoskeletal: Denies back pain, joint swelling Skin: As per HPI Neurologic: Denies headache Psychiatric: Denies suicidal ideation, hallucinations ED Past Medical Hx - Past Medical History Hx Hypertension: Yes Hx Heart Attack/AMI: Yes (2x) Hx Congestive Heart Failure: Yes Hx Diabetes: Yes Hx Asthma: No Hx COPD: No Hx HIV: No Additional medical history: hep c - Surgical History Hx Coronary Stent: Yes (7 stents) - Social History Smoking Status: Current Every Day Smoker Substance Use Type: Alcohol - Medications Home Medications: Home Medications Medication Instructions Recorded Confirmed Last Taken Type Multivitamins Liq [Multiple 5 ml PO QDAY oral.liqd 12/29/16 01/16/17 Unknown Rx Vitamin Liq (Theragran)] Thiamine [Vitamin B-1] 100 mg PO QDAY tablet 12/29/16 01/16/17 Unknown Rx ALPRAZolam [Xanax TAB] 1 mg PO QHS PRN #30 tablet 01/29/17 Unknown Rx Aspirin [Aspirin BABY CHEW TAB] 81 mg PO QDAY #30 tab.chew 01/29/17 Unknown Rx Carvedilol [Coreg] 3.125 mg PO BID #60 tablet 01/29/17 Unknown Rx Doxepin [SINEquan] 100 mg PO QHS capsule 01/29/17 Unknown Rx Folic Acid [Folvite] 1 mg PO QDAY #30 tablet 01/29/17 Unknown Rx HYDROcodone/APAP 10-325 [[place] 1 each PO Q4H PRN #45 tablet 01/29/17 Unknown Rx 10-325 mg TAB] Hypromellose [Isopto Tears 0.5%] 2 drops OU Q4H PRN #1 bottle 01/29/17 Unknown Rx Insulin Detemir [Levemir] 15 units SUB-Q DAILY 30 Days units 01/29/17 Unknown Rx Lisinopril [Zestril TAB] 2.5 mg PO QDAY #15 tablet 01/29/17 Unknown Rx Pantoprazole [Protonix TAB] 20 mg PO QDAY #30 tablet.dr 01/29/17 Unknown Rx Sevelamer Carbonate [Renvela] 1,600 mg PO TIDWM #180 tablet 01/29/17 Unknown Rx Simvastatin [Zocor TAB] 20 mg PO QHS #30 tablet 01/29/17 Unknown Rx Warfarin [Coumadin] 2 mg PO DAILY@1700 #10 tablet 01/29/17 Unknown Rx ED Physical Exam - General Limitations: No Limitations - Other Other exam information: General: No limitations, patient is alert in no acute distress Head exam: Atraumatic, normocephalic Eyes exam: Left brow partially healing laceration 2. Superior laceration is horizontal and 3 cm and there is a 2 cm horizontal laceration below that as well. Left eyelid ecchymosis without specific bony tenderness. Extraocular movements intact. No facial tenderness ENT: Moist mucous membrane, normal oropharynx Neck exam: Normal inspection, full range of motion, no meningismus nontender Respiratory exam: Clear to auscultation bilateral, no wheezes, rales, crackles Cardiovascular: Normal rate and rhythm, normal heart sounds Abdomen: Soft, nondistended, and nontender, with normal bowel sounds, no rebound, or guarding Extremity: Full range of motion normal inspection no deformity Back: Normal Inspection, full range of motion, no tenderness Neurologic: Alert, oriented x3, cranial nerves intact, no motor or sensory deficit. During examination notice involuntary jerking of right arm at the elbow that appears to be a focal seizure. Patient was alert and oriented no episode Psychiatric: normal affect, normal mood Skin: Warm, dry, intact ED Course Vital Signs 09/27/17 11:15 Temperature 98.6 F Pulse Rate 103 H Respiratory 18 Rate Blood Pressure 148/99 O2 Sat by Pulse 100 Oximetry - Reevaluation(s) Reevaluation #1: 09/27/17 13:27 ekg obtained at this time. shows new ant t inver compared to previous. trop/ ckmb added to labs. Pt not complaining of chest pain ED Medical Decision Making - Lab Data Result diagrams: 09/27/17 11:27 09/27/17 11:27 Lab Results 09/27/17 09/27/17 09/27/17 Range/Units 11:27 11:27 11:27 WBC 2.9 L (4.5-11.0) K/mm3 RBC 4.08 (3.65-5.03) M/mm3 Hgb 12.6 (11.8-15.2) gm/dl Hct 39.3 (35.5-45.6) % MCV 96 H (84-94) fl MCH 31 (28-32) pg MCHC 32 (32-34) % RDW 14.1 (13.2-15.2) % Plt Count 99 L (140-440) K/mm3 Baso % (Auto) Auto Mechanics Teacher PT (12.2-14.9) Sec. INR (0.87-1.13) APTT (24.2-36.6) Sec. VBG pH 7.382 (7.320-7.420) Sodium 124 L (137-145) mmol/L Potassium 4.6 (3.6-5.0) mmol/L Chloride 83.1 L (98-107) mmol/L Carbon Dioxide 18 L (22-30) mmol/L Anion Gap 28 mmol/L BUN 5 L (9-20) mg/dL Creatinine 0.9 (0.8-1.5) mg/dL Estimated GFR > 60 ml/min BUN/Creatinine Ratio 6 % Glucose 990 H* (75-100) mg/dL Calcium 8.5 (8.4-10.2) mg/dL Phosphorus (2.5-4.5) mg/dL Magnesium (1.7-2.3) mg/dL Urine Color (Yellow) Urine Turbidity (Clear) Urine pH (5.0-7.0) Ur Specific [place] (1.003-1.030) Urine Protein (Negative) mg/dL Urine Glucose (UA) (Negative) mg/dL Urine Ketones (Negative) mg/dL Urine Blood (Negative) Urine Nitrite (Negative) Urine Bilirubin (Negative) Urine Urobilinogen (<2.0) mg/dL Ur Leukocyte Esterase (Negative) Urine WBC (Auto) (0.0-6.0) /HPF Urine RBC (Auto) (0.0-6.0) /HPF Urine Mucus /HPF 09/27/17 09/27/17 09/27/17 Range/Units 11:27 11:27 11:40 WBC (4.5-11.0) K/mm3 RBC (3.65-5.03) M/mm3 Hgb (11.8-15.2) gm/dl Hct (35.5-45.6) % MCV (84-94) fl MCH (28-32) pg MCHC (32-34) % RDW (13.2-15.2) % Plt Count (140-440) K/mm3 Baso % (Auto) PT 14.3 (12.2-14.9) Sec. INR 1.06 (0.87-1.13) APTT 28.8 (24.2-36.6) Sec. VBG pH (7.320-7.420) Sodium (137-145) mmol/L Potassium (3.6-5.0) mmol/L Chloride (98-107) mmol/L Carbon Dioxide (22-30) mmol/L Anion Gap mmol/L BUN (9-20) mg/dL Creatinine (0.8-1.5) mg/dL Estimated GFR ml/min BUN/Creatinine Ratio % Glucose (75-100) mg/dL Calcium (8.4-10.2) mg/dL Phosphorus 3.00 (2.5-4.5) mg/dL Magnesium 1.50 L (1.7-2.3) mg/dL Urine Color Straw (Yellow) Urine Turbidity Clear (Clear) Urine pH 6.0 (5.0-7.0) Ur Specific [place] 1.024 (1.003-1.030) Urine Protein <15 mg/dl (Negative) mg/dL Urine Glucose (UA) >=500 (Negative) mg/dL Urine Ketones Neg (Negative) mg/dL Urine Blood Neg (Negative) Urine Nitrite Neg (Negative) Urine Bilirubin Neg (Negative) Urine Urobilinogen < 2.0 (<2.0) mg/dL Ur Leukocyte Esterase Neg (Negative) Urine WBC (Auto) < 1.0 (0.0-6.0) /HPF Urine RBC (Auto) < 1.0 (0.0-6.0) /HPF Urine Mucus Few /HPF - EKG Data -: EKG Interpreted by Pa EKG shows normal: sinus rhythm, axis (38), QRS complexes (88), ST-T waves (ant t inv new compared to previous) Rate: normal (91) - EKG Data When compared to previous EKG there are: changes noted - Radiology Data Radiology results: report reviewed CT head without contrast: No acute findings. Right supraorbital soft tissue edema and lacerated CT cervical spine: Extensive degenerative change with no apparent traumatic injury ct orbits: right supraorbital soft tissue injury with no orbital fracture. - Medical Decision Making It appears the patient might have focal seizures. Insulin was initiated for hyperglycemia. Only 500 mL of normal saline initiated due to history of dilated cardiomyopathy with EF of 30-35% No signs of DKA at this time No signs of fracture, intracerebral hemorrhage, initial trop neg - Differential Diagnosis focal seizure, electrolyte abnormality, DKA, ICH Critical Care Time: No Critical care attestation.: If time is entered above; I have spent that time in minutes in the direct care of this critically ill patient, excluding procedure time. ED Disposition Clinical Impression: Involuntary muscle contractions, Hyperglycemia, Insulin dependent diabetes mellitus, Thrombocytopenia, Hepatitis C, Subtherapeutic international normalized ratio (INR), Current use of watermaster anticoagulation, Leukopenia, Hypomagnesemia, Laceration of brow without complication, History of heart artery stent, Dilated cardiomyopathy, History of CHF (congestive heart failure) , Hypertension Disposition: OP ADMIT IP TO THIS HOSP Is pt being admited?: Yes Condition: Stable Time of Disposition: 12:36
--- NOTE | 2017-09-27 12:19 | Cat Scan Report ---
CT HEAD WITHOUT CONTRAST:09/27/17 10:56:00 CLINICAL: Fall and blow to the head. TECHNIQUE: 2.5-mm noncontrast scans. COMPARISON:12/06/16 FINDINGS: The ventricles and sulci are mildly enlarged for age but are unchanged compared to the previous exam. No suspicious hypodensity. No mass or mass effect. No hemorrhage, edema or extra-axial collection. The sinuses are clear. Normal orbits. Soft tissue edema and laceration superior to the right orbit. No foreign body or soft tissue air. The calvarium and skull base are intact. IMPRESSION: No acute intracranial finding. Right supraorbital soft tissue edema and laceration.
[2017-09-27 12:20] LABS: Glucose 990 mg/dL (75-100)
--- NOTE | 2017-09-27 12:27 | Cat Scan Report ---
CT CERVICAL SPINE WITHOUT CONTRAST:09/27/17 10:56:00 CLINICAL: Fall. Right arm cramping and numbness after the fall. TECHNIQUE: Volumetric acquisition and 1.25-mm scan reconstructions without contrast. Sagittal and coronal reformats were performed. FINDINGS: Moderate degenerative disc disease at C3-4 and C6-7 with large osteophytes. Straightening of the C-spine and reversal of curvature. No fracture or subluxation.Bilateral facet joint hypertrophy with fusion and bilateral large uncal osteophytes at C3-4. Moderate right and marked left C3-4 neural foraminal stenosis. Mild left neural foraminal stenosis secondary to osteophyte at C5-6. Endplate irregularities at C6-7. No obvious disc protrusions or bulges. Normal soft tissues and airway. IMPRESSION: Extensive degenerative change and no apparent traumatic injury.
--- NOTE | 2017-09-27 12:33 | Cat Scan Report ---
CT ORBITS WITHOUT CONTRAST: 09/27/17 10:56:00 CLINICAL: Fall with right eye ecchymosis. TECHNIQUE: Volumetric acquisition and 1.25 mm axial scan reconstructions without contrast. Sagittal and coronal reformats were performed. FINDINGS: The orbits and sinuses are intact. Right periorbital soft tissue edema and laceration. The globes are intact. The nasal septum is deviated to the left. No nasal fracture. No soft tissue air or foreign body. IMPRESSION: Right supraorbital soft tissue injury with no orbital fracture.
[2017-09-27] MEDS ORDERED: D50W (25GM) Syringe IV PRN ×2 (12:39→15:56)
[2017-09-27] MEDS ORDERED: NovoLIN R 100 UNITS in NACL 0.9% 99 ML IV SCH ×2 (13:00→16:00)
[2017-09-27 13:07] LABS: Anisocytosis 1+; Basophils % (Manual) 0 % (0.0-1.8); Blastocytes % (Manual) 0 %; Diff Status Complete; Eosinophils % (Manual) 0 % (0.0-4.3); Platelet Estimate Consistent w Auto
[2017-09-27 13:54] LABS: Creatine Kinase MB 7.2 ng/mL (0.0-4.0)
[2017-09-27 15:02] LABS: Anion Gap 21 mmol/L; BUN/Creatinine Ratio 6; Blood Urea Nitrogen 5 mg/dL (9-20); Calcium 8.5 mg/dL (8.4-10.2); Carbon Dioxide 24 mmol/L (22-30); Potassium 4.5 mmol/L (3.6-5.0); Sodium 126 mmol/L (137-145)
--- NOTE | 2017-09-27 15:21 | History and Physical Report ---
History of Present Illness Date of examination: 09/27/17 Date of admission: 09/27/17 12:41 Chief complaint: CC Gen Weakness History of present illness: History of Present Illness 62-year-old male with a past medical history of CHF, diabetes, CAD with 7 stents , and hepatitis C presents to the hospital with high blood glucose noted upon EMS arrival. Patient states he started having involuntary spasms of his right hand that then spread to his whole right arm. Symptoms are intermittent and uncontrollable. Denies any other body spasms. 3 days ago patient tripped and fell sustaining a laceration to his right eye brow. Patient did not seek medical care at that time and has a healing wound to the right brow. He denies LOC or persistent headache. Patient is on Coumadin for unknown reason (denies afib, pe,dvt,cva). Patient thinks he might have missed his single dose of insulin yesterday but apparently took a dose this morning prior to arrival. Patient denies any new weakness, numbness, or pain. Patient typically goes to the [facility] for treatment. Previous echocardiogram from 11/2016 reviewed, dilated cardiomyopathy with EF of 30-35% Past Medical History Hx Hypertension: Yes Hx Heart Attack/AMI: Yes (2x) Hx Congestive Heart Failure: Yes Hx Diabetes: Yes Additional medical history: hep c - Surgical History Hx Coronary Stent: Yes (7 stents) - Social History Smoking Status: Current Every Day Smoker Substance Use Type: Alcohol - Medications Home Medications: Home Medications Medication Instructions Recorded Confirmed Last Taken Type Multivitamins Liq [Multiple 5 ml PO QDAY oral.liqd 12/29/16 01/16/17 Unknown Rx Vitamin Liq (Theragran)] Thiamine [Vitamin B-1] 100 mg PO QDAY tablet 12/29/16 01/16/17 Unknown Rx ALPRAZolam [Xanax TAB] 1 mg PO QHS PRN #30 tablet 01/29/17 Unknown Rx Aspirin [Aspirin BABY CHEW TAB] 81 mg PO QDAY #30 tab.chew 01/29/17 Unknown Rx Carvedilol [Coreg] 3.125 mg PO BID #60 tablet 01/29/17 Unknown Rx Doxepin [SINEquan] 100 mg PO QHS capsule 01/29/17 Unknown Rx Folic Acid [Folvite] 1 mg PO QDAY #30 tablet 01/29/17 Unknown Rx HYDROcodone/APAP 10-325 [Gore 1 each PO Q4H PRN #45 tablet 01/29/17 Unknown Rx 10-325 mg TAB] Hypromellose [Isopto Tears 0.5%] 2 drops OU Q4H PRN #1 bottle 01/29/17 Unknown Rx Insulin Detemir [Levemir] 15 units SUB-Q DAILY 30 Days units 01/29/17 Unknown Rx Lisinopril [Zestril TAB] 2.5 mg PO QDAY #15 tablet 01/29/17 Unknown Rx Pantoprazole [Protonix TAB] 20 mg PO QDAY #30 tablet. 01/29/17 Unknown Rx Sevelamer Carbonate [Renvela] 1,600 mg PO TIDWM #180 tablet 01/29/17 Unknown Rx Simvastatin [Zocor TAB] 20 mg PO QHS #30 tablet 01/29/17 Unknown Rx Warfarin [Coumadin] 2 mg PO DAILY@1700 #10 tablet 01/29/17 Unknown Rx Review of Systems Stated complaint: NUMB R ARM Other details as noted in HPI Comment: All other systems reviewed and negative Other: Constitutional: No fevers chills Eyes: No eye pain visual changes ENT: No ear pain or throat pain Neck: Denies pain Respiratory: Denies cough wheezing shortness of breath Cardiovascular: Denies chest pain, palpitations, syncope GI: Denies abdominal pain, nausea, vomiting, diarrhea : Denies dysuria Musculoskeletal: Denies back pain, joint swelling Skin: As per HPI Neurologic: Denies headache RUE Spasms Psychiatric: Denies suicidal ideation, hallucinations Medications and Allergies Allergies Allergy/AdvReac Type Severity Reaction Status Date / Time heparin Allergy Severe THROMBOCYTO Verified 09/27/17 11:14 PENIA Home Medications Medication Instructions Recorded Confirmed Last Taken Type Multivitamins Liq [Multiple 5 ml PO QDAY oral.liqd 12/29/16 01/16/17 Unknown Rx Vitamin Liq (Theragran)] Thiamine [Vitamin B-1] 100 mg PO QDAY tablet 12/29/16 01/16/17 Unknown Rx ALPRAZolam [Xanax TAB] 1 mg PO QHS PRN #30 tablet 01/29/17 Unknown Rx Aspirin [Aspirin BABY CHEW TAB] 81 mg PO QDAY #30 tab.chew 01/29/17 Unknown Rx Carvedilol [Coreg] 3.125 mg PO BID #60 tablet 01/29/17 Unknown Rx Doxepin [SINEquan] 100 mg PO QHS capsule 01/29/17 Unknown Rx Folic Acid [Folvite] 1 mg PO QDAY #30 tablet 01/29/17 Unknown Rx HYDROcodone/APAP 10-325 [Gore 1 each PO Q4H PRN #45 tablet 01/29/17 Unknown Rx 10-325 mg TAB] Hypromellose [Isopto Tears 0.5%] 2 drops OU Q4H PRN #1 bottle 01/29/17 Unknown Rx Insulin Detemir [Levemir] 15 units SUB-Q DAILY 30 Days units 01/29/17 Unknown Rx Lisinopril [Zestril TAB] 2.5 mg PO QDAY #15 tablet 01/29/17 Unknown Rx Pantoprazole [Protonix TAB] 20 mg PO QDAY #30 tablet. 01/29/17 Unknown Rx Sevelamer Carbonate [Renvela] 1,600 mg PO TIDWM #180 tablet 01/29/17 Unknown Rx Simvastatin [Zocor TAB] 20 mg PO QHS #30 tablet 01/29/17 Unknown Rx Warfarin [Coumadin] 2 mg PO DAILY@1700 #10 tablet 01/29/17 Unknown Rx Active Meds: Active Medications Dextrose (D50w (25gm) Syringe) 0 ml IV PRN PRN PRN Reason: Hypoglycemia Insulin Human Regular 100 (units/ Sodium Chloride) 100 mls @ 1 mls/hr IV TITR RENITA; 1 UNITS/HR PRN Reason: Protocol Exam - Constitutional Vitals: Temp Pulse Resp BP Pulse Ox 98.6 F 103 H 18 148/99 100 09/27/17 11:15 09/27/17 11:15 09/27/17 11:15 09/27/17 11:15 09/27/17 11:15 General appearance: Present: no acute distress, well-nourished - EENT Eyes: Present: PERRL ENT: hearing intact, clear oral mucosa, other ([place] on Rt eye brow lateral aspect 1.5 cm) - Neck Neck: Present: supple, normal ROM - Respiratory Respiratory effort: normal Respiratory: bilateral: CTA - Cardiovascular Heart Sounds: Present: S1 & S2. Absent: rub, click - Extremities Extremities: pulses symmetrical, No edema Peripheral Pulses: within normal limits - Abdominal General gastrointestinal: Present: soft, non-tender, non-distended, normal bowel sounds Male genitourinary: Present: normal - Rectal Rectal Exam: deferred - Integumentary Integumentary: Present: clear, warm, dry - Musculoskeletal Musculoskeletal: gait normal, strength equal bilaterally - Psychiatric Psychiatric: appropriate mood/affect, intact judgment & insight - Neurologic Neurologic: CNII-XII intact, moves all extremities - Allied Health Allied health notes reviewed: nursing, case management Results - Labs CBC & Chem 7: 09/28/17 05:39 09/28/17 07:24 Labs: Laboratory Last Values WBC 2.9 K/mm3 (4.5-11.0) L 09/27/17 11:27 RBC 4.08 M/mm3 (3.65-5.03) 09/27/17 11:27 Hgb 12.6 gm/dl (11.8-15.2) 09/27/17 11:27 Hct 39.3 % (35.5-45.6) 09/27/17 11:27 MCV 96 fl (84-94) H 09/27/17 11:27 MCH 31 pg (28-32) 09/27/17 11:27 MCHC 32 % (32-34) 09/27/17 11:27 RDW 14.1 % (13.2-15.2) 09/27/17 11:27 Plt Count 99 K/mm3 (140-440) L 09/27/17 11:27 Baso % (Auto) Dust Operator 09/27/17 11:27 Add Manual Diff Complete 09/27/17 11:27 Total Counted 100 09/27/17 11:27 Seg Neuts % (Manual) 81.0 % (40.0-70.0) H 09/27/17 11:27 Band Neutrophils % 1.0 % 09/27/17 11:27 Lymphocytes % (Manual) 13.0 % (13.4-35.0) L 09/27/17 11:27 Reactive Lymphs % (Man) 0 % 09/27/17 11:27 Monocytes % (Manual) 5.0 % (0.0-7.3) 09/27/17 11:27 Eosinophils % (Manual) 0 % (0.0-4.3) 09/27/17 11:27 Basophils % (Manual) 0 % (0.0-1.8) 09/27/17 11:27 Metamyelocytes % 0 % 09/27/17 11:27 Myelocytes % 0 % 09/27/17 11:27 Promyelocytes % 0 % 09/27/17 11:27 Blast Cells % 0 % 09/27/17 11:27 Nucleated RBC % Not Reportable 09/27/17 11:27 Seg Neutrophils # Man 2.3 K/mm3 (1.8-7.7) 09/27/17 11:27 Band Neutrophils # 0.0 K/mm3 09/27/17 11:27 Lymphocytes # (Manual) 0.4 K/mm3 (1.2-5.4) L 09/27/17 11:27 Abs React Lymphs (Man) 0.0 K/mm3 09/27/17 11:27 Monocytes # (Manual) 0.1 K/mm3 (0.0-0.8) 09/27/17 11:27 Eosinophils # (Manual) 0.0 K/mm3 (0.0-0.4) 09/27/17 11:27 Basophils # (Manual) 0.0 K/mm3 (0.0-0.1) 09/27/17 11:27 Metamyelocytes # 0.0 K/mm3 09/27/17 11:27 Myelocytes # 0.0 K/mm3 09/27/17 11:27 Promyelocytes # 0.0 K/mm3 09/27/17 11:27 Blast Cells # 0.0 K/mm3 09/27/17 11:27 WBC Morphology Not Reportable 09/27/17 11:27 Hypersegmented Neuts Not Reportable 09/27/17 11:27 Hyposegmented Neuts Not Reportable 09/27/17 11:27 Hypogranular Neuts Not Reportable 09/27/17 11:27 Smudge Cells Not Reportable 09/27/17 11:27 Toxic Granulation Not Reportable 09/27/17 11:27 Toxic Vacuolation Not Reportable 09/27/17 11:27 Dohle Bodies Not Reportable 09/27/17 11:27 Pelger-Huet Anomaly Not Reportable 09/27/17 11:27 Trent Rods Not Reportable 09/27/17 11:27 Platelet Estimate Consistent w auto 09/27/17 11:27 Clumped Platelets Not Reportable 09/27/17 11:27 Plt Clumps, EDTA Not Reportable 09/27/17 11:27 Large Platelets Not Reportable 09/27/17 11:27 Giant Platelets Not Reportable 09/27/17 11:27 Platelet Satelliting Not Reportable 09/27/17 11:27 Plt Morphology Comment Not Reportable 09/27/17 11:27 RBC Morphology Not Reportable 09/27/17 11:27 Dimorphic RBCs Not Reportable 09/27/17 11:27 Polychromasia Not Reportable 09/27/17 11:27 Hypochromasia Not Reportable 09/27/17 11:27 Poikilocytosis Not Reportable 09/27/17 11:27 Anisocytosis 1+ 09/27/17 11:27 Microcytosis Not Reportable 09/27/17 11:27 Macrocytosis Not Reportable 09/27/17 11:27 Spherocytes Not Reportable 09/27/17 11:27 Pappenheimer Bodies Not Reportable 09/27/17 11:27 Sickle Cells Not Reportable 09/27/17 11:27 Target Cells Not Reportable 09/27/17 11:27 Tear Drop Cells Not Reportable 09/27/17 11:27 Ovalocytes Not Reportable 09/27/17 11:27 Helmet Cells Not Reportable 09/27/17 11:27 Avitia-Burtrum Bodies Not Reportable 09/27/17 11:27 [place] Rings Not Reportable 09/27/17 11:27 Ar Cells Not Reportable 09/27/17 11:27 Bite Cells Not Reportable 09/27/17 11:27 Crenated Cell Not Reportable 09/27/17 11:27 Elliptocytes Not Reportable 09/27/17 11:27 Acanthocytes (Spur) Not Reportable 09/27/17 11:27 Rouleaux Not Reportable 09/27/17 11:27 Hemoglobin C Crystals Not Reportable 09/27/17 11:27 Schistocytes Not Reportable 09/27/17 11:27 Malaria parasites Not Reportable 09/27/17 11:27 Krzysztof Bodies Not Reportable 09/27/17 11:27 Hem Pathologist Commnt No 09/27/17 11:27 PT 14.3 Sec. (12.2-14.9) 09/27/17 11:27 INR 1.06 (0.87-1.13) 09/27/17 11:27 APTT 28.8 Sec. (24.2-36.6) 09/27/17 11:27 VBG pH 7.382 (7.320-7.420) 09/27/17 11:27 Sodium 126 mmol/L (137-145) L 09/27/17 14:32 Potassium 4.5 mmol/L (3.6-5.0) 09/27/17 14:32 Chloride 86.0 mmol/L (98-107) L 09/27/17 14:32 Carbon Dioxide 24 mmol/L (22-30) 09/27/17 14:32 Anion Gap 21 mmol/L 09/27/17 14:32 BUN 5 mg/dL (9-20) L 09/27/17 14:32 Creatinine 0.8 mg/dL (0.8-1.5) 09/27/17 14:32 Estimated GFR > 60 ml/min 09/27/17 14:32 BUN/Creatinine Ratio 6 % 09/27/17 14:32 Glucose 990 mg/dL (75-100) H* 09/27/17 11:27 POC Glucose > 500 (70-105) H 09/27/17 13:14 Calcium 8.5 mg/dL (8.4-10.2) 09/27/17 14:32 Phosphorus 3.00 mg/dL (2.5-4.5) 09/27/17 11:27 Magnesium 1.50 mg/dL (1.7-2.3) L 09/27/17 11:27 Total Creatine Kinase 73 units/L (55-170) 09/27/17 11:27 CK-MB (CK-2) 7.2 ng/mL (0.0-4.0) H 09/27/17 11:27 CK-MB (CK-2) Rel Index 9.8 (0-4) H 09/27/17 11:27 Troponin T 0.018 ng/mL (0.00-0.029) 09/27/17 11:27 Urine Color Straw (Yellow) 09/27/17 11:40 Urine Turbidity Clear (Clear) 09/27/17 11:40 Urine pH 6.0 (5.0-7.0) 09/27/17 11:40 Ur Specific [place] 1.024 (1.003-1.030) 09/27/17 11:40 Urine Protein <15 mg/dl mg/dL (Negative) 09/27/17 11:40 Urine Glucose (UA) >=500 mg/dL (Negative) 09/27/17 11:40 Urine Ketones Neg mg/dL (Negative) 09/27/17 11:40 Urine Blood Neg (Negative) 09/27/17 11:40 Urine Nitrite Neg (Negative) 09/27/17 11:40 Urine Bilirubin Neg (Negative) 09/27/17 11:40 Urine Urobilinogen < 2.0 mg/dL (<2.0) 09/27/17 11:40 Ur Leukocyte Esterase Neg (Negative) 09/27/17 11:40 Urine WBC (Auto) < 1.0 /HPF (0.0-6.0) 09/27/17 11:40 Urine RBC (Auto) < 1.0 /HPF (0.0-6.0) 09/27/17 11:40 Urine Mucus Few /HPF 09/27/17 11:40 Short CBC 09/27/17 09/28/17 Range/Units 11:27 05:39 WBC 2.9 L 3.8 L (4.5-11.0) K/mm3 Hgb 12.6 11.5 L (11.8-15.2) gm/dl Hct 39.3 32.9 L D (35.5-45.6) % Plt Count 99 L 81 L (140-440) K/mm3 BMP 09/27/17 09/27/17 09/27/17 11:27 14:32 16:18 Sodium 124 L 126 L 129 L Potassium 4.6 4.5 4.4 Chloride 83.1 L 86.0 L 89.1 L Carbon Dioxide 18 L 24 24 BUN 5 L 5 L 4 L Creatinine 0.9 0.8 0.8 Glucose 990 H* 697 H* 448 H Calcium 8.5 8.5 8.6 09/27/17 09/27/17 09/27/17 17:49 19:43 21:47 Sodium 132 L 133 L 131 L Potassium 3.5 L D 3.3 L 3.4 L Chloride 92.5 L 93.8 L 94.2 L Carbon Dioxide 24 25 25 BUN 4 L 4 L 4 L Creatinine 0.8 0.7 L 0.9 Glucose 312 H 215 H 185 H Calcium 8.4 8.4 8.3 L 09/27/17 09/28/17 09/28/17 23:44 05:39 07:24 Sodium 134 L 136 L 137 Potassium 3.5 L 3.3 L 3.9 Chloride 93.8 L 98.6 100.4 Carbon Dioxide 27 25 24 BUN 4 L 6 L 6 L Creatinine 0.9 1.0 1.0 Glucose 142 H 148 H 141 H Calcium 8.5 8.4 8.2 L Cardiac Enzymes 09/27/17 Range/Units 11:27 Total Creatine Kinase 73 (55-170) units/L CK-MB (CK-2) 7.2 H (0.0-4.0) ng/mL Troponin T 0.018 (0.00-0.029) ng/mL Liver Function 09/28/17 Range/Units 05:39 Total Bilirubin 0.80 (0.1-1.2) mg/dL AST 106 H (5-40) units/L ALT 47 (7-56) units/L Alkaline Phosphatase 75 (35-129) units/L Albumin 2.6 L (3.9-5) g/dL Urine 09/27/17 Range/Units 11:40 Urine Color Straw (Yellow) Urine pH 6.0 (5.0-7.0) Ur Specific [place] 1.024 (1.003-1.030) Urine Protein <15 mg/dl (Negative) mg/dL Urine Glucose (UA) >=500 (Negative) mg/dL - Imaging and Cardiology EKG: report reviewed CT Scan - head: report reviewed (NAF) Imaging and Cardiology: Rt orbit CT no Fracture soft tissue swelling near rt eye Assessment and Plan Assessment and plan: Critical care statement: The high probability of a clinically significant, sudden or life threatening deterioration of the [Pulmonary, cadiac, renal] system(s) required my full and direct attention, intervention and personal management. The aggregate critical care time was [40] minutes. This time is in addition to time spent performing reported procedures but includes the following: [x] Data Review and interpretation [x] Patient assessment and monitoring of vital signs [x] Documentation [x] Medication orders and management Advance Directives: Yes (Full code) VTE prophylaxis?: Chemical Plan of care discussed with patient/family: Yes - Patient Problems (1) Hyperosmolar non-ketotic state in patient with type 2 diabetes mellitus Current Visit: Yes Status: Acute Plan to address problem: Patient initiated on IV Insulin drip and IV fluids (2) Hyponatremia Current Visit: Yes Status: Acute Plan to address problem: Should correct with correction iof Glucose levels (3) 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 Current Visit: Yes Status: Chronic Plan to address problem: Etio unclear (4) Insulin dependent diabetes mellitus Current Visit: Yes Status: Chronic Plan to address problem: Cont Insulin and coverage (5) HTN (hypertension) Current Visit: Yes Status: Chronic Qualifiers: Hypertension type: essential hypertension Qualified Code(s): I10 - Essential (primary) hypertension Plan to address problem: Cont antihypertensives (6) HLD (hyperlipidemia) Current Visit: Yes Status: Chronic Qualifiers: Hyperlipidemia type: mixed hyperlipidemia Qualified Code(s): E78.2 - Mixed hyperlipidemia Plan to address problem: Cont statins (7) CHF (congestive heart failure) Current Visit: Yes Status: Chronic Qualifiers: Congestive heart failure chronicity: acute on chronic Plan to address problem: Not on any Diuretics (8) DVT prophylaxis Current Visit: No Status: Acute Plan to address problem: On Coumadin
[2017-09-27 15:30] LABS: Glucose 697 mg/dL (75-100)
[2017-09-27] MEDS ORDERED: DULCOLAX PR PRN (15:35)
[2017-09-27] MEDS ORDERED: TYLENOL PO PRN (15:35)
[2017-09-27] MEDS ORDERED: MILK OF MAGNESIA PO PRN (15:35)
[2017-09-27] MEDS ORDERED: ATIVAN IV PRN (15:54)
[2017-09-27] MEDS ORDERED: NACL 0.9% 1000 ML 1,000 ML ONE (15:59)
[2017-09-27] MEDS ORDERED: D5W/0.45% NACL/KCL 20 MEQ 20 MEQ/1,000 ML BAG IV SCH (16:00)
[2017-09-27] MEDS ORDERED: SODIUM CHLORIDE FLUSH SYRINGE 10 ML IV NR (16:00)
[2017-09-27] MEDS ORDERED: KCL 10MEQ/100ML 10 MEQ/100 ML BAG IV SCH ×2 (16:00)
--- NOTE | 2017-09-27 16:36 | Consultation ---
History of Present Illness Consult date: 09/27/17 Requesting physician: HARINDER KU Reason for consult: other (diabetic ketoacidosis, sepsis) History of present illness: 62-year-old male with a past medical history of CHF, diabetes, CAD with 7 stents , and hepatitis C presents to the hospital with complaints of involuntary right arm spasms since this a.m. and high blood glucose noted upon EMS arrival. Patient states he started having involuntary spasms of his right hand that then spread to his whole right arm. Symptoms are intermittent and uncontrollable. Denies any other body spasms. 3 days ago patient tripped and fell sustaining a laceration to his right brow. Patient did not seek medical care at that time and has a healing wound to the right brow. He denies LOC or persistent headache. Patient is on Coumadin for unknown reason (denies afib, pe,dvt,cva). Patient thinks he might have missed his single dose of insulin yesterday but apparently took a dose this morning prior to arrival. Patient denies any new weakness, numbness, or pain. Patient typically goes to the OR for treatment. Previous echocardiogram from 11/2016 reviewed, dilated cardiomyopathy with EF of 30-35% He states that he has just been feeling unwell, but denies any fevers or chills. no nausea or vomiting.No abdominal pain, no dysuria. Mechanical fall today with right eye bruising, he states he tripped. He denied any dizziness, vertigo, palpitations prior to the fall. he denies any loss of consciousness, no headaches. weakness and "seizing" of the left arm. REVIEW OF SYSTEMS Constitutional: No fevers chills Eyes: No eye pain visual changes, swelling right eye post fall ENT: No ear pain or throat pain Neck: Denies pain Respiratory: Denies cough wheezing shortness of breath Cardiovascular: Denies chest pain, palpitations, syncope GI: Denies abdominal pain, nausea, vomiting, diarrhea : Denies dysuria Musculoskeletal: Denies back pain, joint swelling Skin: As per HPI Neurologic: Denies headache RUE Spasms Psychiatric: Denies suicidal ideation, hallucinations Past History Social history: smoking (1PPD for 25years, 2PPD for about 20 years prior to that ) Medications and Allergies Allergies Allergy/AdvReac Type Severity Reaction Status Date / Time heparin Allergy Severe THROMBOCYTO Verified 09/27/17 11:14 PENIA Home Medications Medication Instructions Recorded Confirmed Last Taken Type Multivitamins Liq [Multiple 5 ml PO QDAY oral.liqd 12/29/16 01/16/17 Unknown Rx Vitamin Liq (Theragran)] Thiamine [Vitamin B-1] 100 mg PO QDAY tablet 12/29/16 01/16/17 Unknown Rx ALPRAZolam [Xanax TAB] 1 mg PO QHS PRN #30 tablet 01/29/17 Unknown Rx Aspirin [Aspirin BABY CHEW TAB] 81 mg PO QDAY #30 tab.chew 01/29/17 Unknown Rx Carvedilol [Coreg] 3.125 mg PO BID #60 tablet 01/29/17 Unknown Rx Doxepin [SINEquan] 100 mg PO QHS capsule 01/29/17 Unknown Rx Folic Acid [Folvite] 1 mg PO QDAY #30 tablet 01/29/17 Unknown Rx HYDROcodone/APAP 10-325 [[place] 1 each PO Q4H PRN #45 tablet 01/29/17 Unknown Rx 10-325 mg TAB] Hypromellose [Isopto Tears 0.5%] 2 drops OU Q4H PRN #1 bottle 01/29/17 Unknown Rx Insulin Detemir [Levemir] 15 units SUB-Q DAILY 30 Days units 01/29/17 Unknown Rx Lisinopril [Zestril TAB] 2.5 mg PO QDAY #15 tablet 01/29/17 Unknown Rx Pantoprazole [Protonix TAB] 20 mg PO QDAY #30 tablet.dr 01/29/17 Unknown Rx Sevelamer Carbonate [Renvela] 1,600 mg PO TIDWM #180 tablet 01/29/17 Unknown Rx Simvastatin [Zocor TAB] 20 mg PO QHS #30 tablet 01/29/17 Unknown Rx Warfarin [Coumadin] 2 mg PO DAILY@1700 #10 tablet 01/29/17 Unknown Rx Active Meds: Active Medications Acetaminophen (Tylenol) 650 mg PO Q4H PRN PRN Reason: Pain MILD(1-3)/Fever >100.5/VALENTINO Alprazolam (Xanax) 1 mg PO QHS PRN PRN Reason: Anxiety Artificial Tears (Isopto Tears 0.5%) 2 drops OU Q4H PRN PRN Reason: Dry Eye(s) Aspirin (Baby Aspirin) 81 mg PO QDAY [facility] Bisacodyl (Dulcolax) 10 mg UT QDAY PRN PRN Reason: Constipation unrelieved by MOM Carvedilol (Coreg) 3.125 mg PO BID [facility] Dextrose (D50w (25gm) Syringe) 50 ml IV PRN PRN PRN Reason: Hypoglycemia Doxepin HCl (Sinequan) 100 mg PO QHS [facility] Enoxaparin Sodium (Lovenox) 40 mg SUB-Q QDAY [facility] Folic Acid (Folvite) 1 mg PO QDAY [facility] Insulin Human Regular 100 (units/ Sodium Chloride) 100 mls @ 1 mls/hr IV TITR RENITA; 1 UNITS/HR PRN Reason: Protocol Last Admin: 09/27/17 15:23 Dose: 8 units/hr, 8 mls/hr Potassium Chloride/Dextrose/Sod Cl (D5w/0.45% Nacl/Kcl 20 Meq) 20 meq in 1,000 mls @ 125 mls/hr IV DIRECT RENITA Sodium Chloride (Nacl 0.9% 1000 Ml) 1,000 mls @ 999 mls/hr IV BOLUS ONE Stop: 09/27/17 18:00 Potassium Chloride (Kcl 10meq/100ml) 10 meq in 100 mls @ 100 mls/hr IV Q1H [facility]ENITA Stop: 09/27/17 19:59 Potassium Chloride (Kcl 10meq/100ml) 10 meq in 100 mls @ 100 mls/hr IV Q1H [facility] Stop: 09/27/17 21:59 Insulin Detemir (Levemir) 15 units SUB-Q DAILY [facility] Lisinopril (Zestril) 2.5 mg PO QDAY [facility] Lorazepam (Ativan) 1 mg IV Q3H PRN PRN Reason: Agitation Magnesium Hydroxide (Milk Of Magnesia) 30 ml PO Q4H PRN PRN Reason: Constipation Miscellaneous Medication (Simvastatin) 20 mg PO QHS [facility] Ondansetron HCl (Zofran) 4 mg IV Q8H PRN PRN Reason: N/V unrelieved by Reglan Oxycodone/Acetaminophen (Percocet 5/325) 1 tab PO Q6H PRN PRN Reason: Pain, Moderate (4-6) Pantoprazole Sodium (Protonix) 20 mg PO QDAY [facility] Sevelamer Carbonate (Renvela) 1,600 mg PO TIDWM [facility]ITA Sodium Chloride (Sodium Chloride Flush Syringe 10 Ml) 10 ml IV PRN NR Review of Systems All systems: negative (Constitutional: No fevers chills) Physical Examination Vital signs: Vital Signs Temp Pulse Resp BP Pulse Ox 98.6 F 103 H 18 148/99 100 09/27/17 11:15 09/27/17 11:15 09/27/17 11:15 09/27/17 11:15 09/27/17 11:15 General appearance: no acute distress, alert, other (right suprorbital swelling with sutures in place) Eyes: non-icteric ENT: oropharynx dry Neck: supple, no lymphadenopathy, no JVD Effort: normal Ascultation: Bilateral: diminished breath sounds Cardiovascular: regular rate and rhythm, murmur noted (S1,S2, no murmurs, gallops or rubs) Gastrointestinal: normoactive bowel sounds, soft, non-tender, non-distended, other (no organomegally) Integumentary: normal Extremities: no cyanosis, no edema, pink and warm, pulses normal, no ischemia or petechiae Musculoskeletal: no deformities normal mental status, non-focal exam, pupils equal and round, CN II-XII normal, motor strength normal and mood appropriate, affect normal Results - Laboratory Findings CBC and BMP: 09/28/17 05:39 09/28/17 07:24 PT/INR, D-dimer PT 14.3 Sec. (12.2-14.9) 09/27/17 11:27 INR 1.06 (0.87-1.13) 09/27/17 11:27 Abnormal lab findings: Abnormal Labs 09/27/17 09/27/17 09/27/17 11:27 11:27 11:27 WBC 2.9 L MCV 96 H Plt Count 99 L Seg Neuts % (Manual) 81.0 H Lymphocytes % (Manual) 13.0 L Lymphocytes # (Manual) 0.4 L Sodium 124 L Chloride 83.1 L Carbon Dioxide 18 L BUN 5 L Glucose 990 H* POC Glucose Magnesium 1.50 L CK-MB (CK-2) CK-MB (CK-2) Rel Index 09/27/17 09/27/17 09/27/17 11:27 11:32 13:14 WBC MCV Plt Count Seg Neuts % (Manual) Lymphocytes % (Manual) Lymphocytes # (Manual) Sodium Chloride Carbon Dioxide BUN Glucose POC Glucose > 500 H > 500 H Magnesium CK-MB (CK-2) 7.2 H CK-MB (CK-2) Rel Index 9.8 H 09/27/17 14:32 WBC MCV Plt Count Seg Neuts % (Manual) Lymphocytes % (Manual) Lymphocytes # (Manual) Sodium 126 L Chloride 86.0 L Carbon Dioxide BUN 5 L Glucose 697 H* POC Glucose Magnesium CK-MB (CK-2) CK-MB (CK-2) Rel Index - Diagnostic Findings Additional studies: CT HEAD, C-SPINE AND ORBITS, REPORTS REVIEWED. Assessment and Plan Diabetic ketoacidosis Hyponatremia Leukopenia Thrombocytopenia h/o Tobacco abuse disorder Anticoagulated on coumadin -Admit ICU -Treat per DKA protocol -Serum osmolality, urine osmolality, urine soduim levels -Insulin infusion while monitoring accuchecks, glycemic control -Neurochecks -Get old medical records--patient is anticoagulated but he denies any history that would be pertinent for coumadin therapy -Monitor counts -HIV screen -Urinalysis with cultures -EEG r/o seizure disorder -Nicotine withdrawal precautions Smoking cessation counselling done at the bedside
[2017-09-27] MEDS ORDERED: ISOPTO TEARS 0.5% OU PRN (17:00)
[2017-09-27] MEDS ORDERED: NACL 0.9% 1000 ML 1,000 ML IV ONE (17:00)
[2017-09-27 17:01] LABS: Anion Gap 20 mmol/L; BUN/Creatinine Ratio 5; Blood Urea Nitrogen 4 mg/dL (9-20); Calcium 8.6 mg/dL (8.4-10.2); Carbon Dioxide 24 mmol/L (22-30); Chloride 89.1 mmol/L (98-107); Glucose 448 mg/dL (75-100); Phosphorous 2.3 mg/dL (2.5-4.5); Potassium 4.4 mmol/L (3.6-5.0); Sodium 129 mmol/L (137-145)
[2017-09-27 18:17] LABS: Anion Gap 19 mmol/L; BUN/Creatinine Ratio 5; Blood Urea Nitrogen 4 mg/dL (9-20); Calcium 8.4 mg/dL (8.4-10.2); Carbon Dioxide 24 mmol/L (22-30); Chloride 92.5 mmol/L (98-107); Glucose 312 mg/dL (75-100); Potassium 3.5 mmol/L (3.6-5.0); Sodium 132 mmol/L (137-145)
[2017-09-27] MEDS: BABY ASPIRIN PO SCH (18:35)
[2017-09-27] MEDS: FOLVITE PO SCH (18:36)
[2017-09-27] MEDS: ZESTRIL PO SCH (18:56)
[2017-09-27] MEDS: RENVELA PO SCH (19:26)
[2017-09-27 20:15] LABS: Anion Gap 18 mmol/L; BUN/Creatinine Ratio 6; Blood Urea Nitrogen 4 mg/dL (9-20); Calcium 8.4 mg/dL (8.4-10.2); Carbon Dioxide 25 mmol/L (22-30); Chloride 93.8 mmol/L (98-107); Glucose 215 mg/dL (75-100); Potassium 3.3 mmol/L (3.6-5.0); Sodium 133 mmol/L (137-145)
[2017-09-27] MEDS: PERCOCET 5/325 PO PRN (21:54)
[2017-09-27] MEDS ORDERED: NON-FORMULARY (Simvastatin 20 MG) PO SCH (22:00)
[2017-09-27 22:15] LABS: Anion Gap 15 mmol/L; BUN/Creatinine Ratio 4; Blood Urea Nitrogen 4 mg/dL (9-20); Calcium 8.3 mg/dL (8.4-10.2); Carbon Dioxide 25 mmol/L (22-30); Chloride 94.2 mmol/L (98-107); Glucose 185 mg/dL (75-100); Potassium 3.4 mmol/L (3.6-5.0); Sodium 131 mmol/L (137-145)
[2017-09-27] MEDS: COREG PO SCH (22:31)
[2017-09-27] MEDS: PRAVACHOL PO SCH (23:32)
[2017-09-27] MEDS: SINEquan PO SCH (23:33)
[2017-09-28 00:18] LABS: Anion Gap 17 mmol/L; BUN/Creatinine Ratio 4; Blood Urea Nitrogen 4 mg/dL (9-20); Calcium 8.5 mg/dL (8.4-10.2); Carbon Dioxide 27 mmol/L (22-30); Chloride 93.8 mmol/L (98-107); Glucose 142 mg/dL (75-100); Potassium 3.5 mmol/L (3.6-5.0); Sodium 134 mmol/L (137-145)
[2017-09-28 06:01] LABS: Basophils % (Auto) 1.3 % (0.0-1.8); Eosinophils % (Auto) 2.2 % (0.0-4.3); Hematocrit 32.9 % (35.5-45.6); Hemoglobin 11.5 gm/dl (11.8-15.2); Mean Corpuscular HGB Conc 35 % (32-34); Mean Corpuscular Hemoglobin 32 pg (28-32); Mean Corpuscular Volume 92 fl (84-94); Red Blood Count 3.58 M/mm3 (3.65-5.03); Red Cell Distribution Width 13.7 % (13.2-15.2); White Blood Count 3.8 K/mm3 (4.5-11.0)
[2017-09-28 06:12] LABS: Platelet Count 81 K/mm3 (140-440)
[2017-09-28 07:17] LABS: Alanine Aminotransferase 47 units/L (7-56); Albumin 2.6 g/dL (3.9-5); Albumin/Globulin Ratio 0.8 %; Alkaline Phosphatase 75 units/L (35-129); Anion Gap 16 mmol/L; BUN/Creatinine Ratio 6; Blood Urea Nitrogen 6 mg/dL (9-20); Calcium 8.4 mg/dL (8.4-10.2); Carbon Dioxide 25 mmol/L (22-30); Chloride 98.6 mmol/L (98-107); Glucose 148 mg/dL (75-100); Potassium 3.3 mmol/L (3.6-5.0); Sodium 136 mmol/L (137-145); Total Protein 5.8 g/dL (6.3-8.2)
[2017-09-28 07:58] LABS: Anion Gap 17 mmol/L; BUN/Creatinine Ratio 6; Blood Urea Nitrogen 6 mg/dL (9-20); Calcium 8.2 mg/dL (8.4-10.2); Carbon Dioxide 24 mmol/L (22-30); Chloride 100.4 mmol/L (98-107); Glucose 141 mg/dL (75-100); Potassium 3.9 mmol/L (3.6-5.0); Sodium 137 mmol/L (137-145)
--- NOTE | 2017-09-28 08:46 | Progress Note ---
<JAYLA MARCELO - Last Filed: 09/28/17 15:26> Assessment and Plan Assessment and plan: 62-year-old male with a past medical history of CHF, diabetes, CAD with 7 stents , and hepatitis C presents to the hospital with high blood glucose noted upon EMS arrival. Patient states he started having involuntary spasms of his right hand that then spread to his whole right arm. Symptoms are intermittent and uncontrollable. Denies any other body spasms. 3 days ago patient tripped and fell sustaining a laceration to his right eye brow. Patient did not seek medical care at that time and has a healing wound to the right brow. He denies LOC or persistent headache. Patient is on Coumadin for unknown reason (denies afib, pe,dvt,cva). Patient thinks he might have missed his single dose of insulin yesterday but apparently took a dose this morning prior to arrival. Patient denies any new weakness, numbness, or pain. 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 Denies chest pain, shortness of breath, nausea, vomiting. Nurse notes and lab results reviewed Hospitalist Physical - Constitutional Vitals: Temp Pulse Resp BP Pulse Ox 98.4 F 94 H 16 117/70 100 09/28/17 07:50 09/28/17 07:50 09/28/17 07:50 09/28/17 07:50 09/28/17 07:50 General appearance: Present: no acute distress, well-nourished - EENT Eyes: Present: PERRL, EOM intact ENT: hearing intact, clear oral mucosa - Neck Neck: Present: supple, normal ROM - Respiratory Respiratory effort: normal Respiratory: bilateral: CTA - Cardiovascular Rhythm: regular Heart Sounds: Present: S1 & S2 - Extremities Extremities: no ischemia, No edema Peripheral Pulses: within normal limits - Abdominal General gastrointestinal: soft, non-tender - Integumentary Integumentary: Present: warm (R eyebrow laceration, covered with dressing), dry - Psychiatric Psychiatric: appropriate mood/affect, cooperative - Neurologic Neurologic: CNII-XII intact, moves all extremities - Allied Health Allied health notes reviewed: nursing Results - Labs CBC & Chem 7: 09/28/17 05:39 09/28/17 12:47 Labs: Laboratory Last Values WBC 3.8 K/mm3 (4.5-11.0) L 09/28/17 05:39 RBC 3.58 M/mm3 (3.65-5.03) L 09/28/17 05:39 Hgb 11.5 gm/dl (11.8-15.2) L 09/28/17 05:39 Hct 32.9 % (35.5-45.6) L D 09/28/17 05:39 MCV 92 fl (84-94) 09/28/17 05:39 MCH 32 pg (28-32) 09/28/17 05:39 MCHC 35 % (32-34) H 09/28/17 05:39 RDW 13.7 % (13.2-15.2) 09/28/17 05:39 Plt Count 81 K/mm3 (140-440) L 09/28/17 05:39 Lymph % (Auto) 39.2 % (13.4-35.0) H 09/28/17 05:39 [place] % (Auto) 8.1 % (0.0-7.3) H 09/28/17 05:39 Eos % (Auto) 2.2 % (0.0-4.3) 09/28/17 05:39 Baso % (Auto) 1.3 % (0.0-1.8) 09/28/17 05:39 Lymph # 1.5 K/mm3 (1.2-5.4) 09/28/17 05:39 [place] # 0.3 K/mm3 (0.0-0.8) 09/28/17 05:39 Eos # 0.1 K/mm3 (0.0-0.4) 09/28/17 05:39 Baso # 0.1 K/mm3 (0.0-0.1) 09/28/17 05:39 Add Manual Diff Complete 09/27/17 11:27 Total Counted 100 09/27/17 11:27 Seg Neutrophils % 49.2 % (40.0-70.0) 09/28/17 05:39 Seg Neuts % (Manual) 81.0 % (40.0-70.0) H 09/27/17 11:27 Band Neutrophils % 1.0 % 09/27/17 11:27 Lymphocytes % (Manual) 13.0 % (13.4-35.0) L 09/27/17 11:27 Reactive Lymphs % (Man) 0 % 09/27/17 11:27 Monocytes % (Manual) 5.0 % (0.0-7.3) 09/27/17 11:27 Eosinophils % (Manual) 0 % (0.0-4.3) 09/27/17 11:27 Basophils % (Manual) 0 % (0.0-1.8) 09/27/17 11:27 Metamyelocytes % 0 % 09/27/17 11:27 Myelocytes % 0 % 09/27/17 11:27 Promyelocytes % 0 % 09/27/17 11:27 Blast Cells % 0 % 09/27/17 11:27 Nucleated RBC % Not Reportable 09/27/17 11:27 Seg Neutrophils # 1.9 K/mm3 (1.8-7.7) 09/28/17 05:39 Seg Neutrophils # Man 2.3 K/mm3 (1.8-7.7) 09/27/17 11:27 Band Neutrophils # 0.0 K/mm3 09/27/17 11:27 Lymphocytes # (Manual) 0.4 K/mm3 (1.2-5.4) L 09/27/17 11:27 Abs React Lymphs (Man) 0.0 K/mm3 09/27/17 11:27 Monocytes # (Manual) 0.1 K/mm3 (0.0-0.8) 09/27/17 11:27 Eosinophils # (Manual) 0.0 K/mm3 (0.0-0.4) 09/27/17 11:27 Basophils # (Manual) 0.0 K/mm3 (0.0-0.1) 09/27/17 11:27 Metamyelocytes # 0.0 K/mm3 09/27/17 11:27 Myelocytes # 0.0 K/mm3 09/27/17 11:27 Promyelocytes # 0.0 K/mm3 09/27/17 11:27 Blast Cells # 0.0 K/mm3 09/27/17 11:27 WBC Morphology Not Reportable 09/27/17 11:27 Hypersegmented Neuts Not Reportable 09/27/17 11:27 Hyposegmented Neuts Not Reportable 09/27/17 11:27 Hypogranular Neuts Not Reportable 09/27/17 11:27 Smudge Cells Not Reportable 09/27/17 11:27 Toxic Granulation Not Reportable 09/27/17 11:27 Toxic Vacuolation Not Reportable 09/27/17 11:27 Dohle Bodies Not Reportable 09/27/17 11:27 Pelger-Huet Anomaly Not Reportable 09/27/17 11:27 Trent Rods Not Reportable 09/27/17 11:27 Platelet Estimate Consistent w auto 09/27/17 11:27 Clumped Platelets Not Reportable 09/27/17 11:27 Plt Clumps, EDTA Not Reportable 09/27/17 11:27 Large Platelets Not Reportable 09/27/17 11:27 Giant Platelets Not Reportable 09/27/17 11:27 Platelet Satelliting Not Reportable 09/27/17 11:27 Plt Morphology Comment Not Reportable 09/27/17 11:27 RBC Morphology Not Reportable 09/27/17 11:27 Dimorphic RBCs Not Reportable 09/27/17 11:27 Polychromasia Not Reportable 09/27/17 11:27 Hypochromasia Not Reportable 09/27/17 11:27 Poikilocytosis Not Reportable 09/27/17 11:27 Anisocytosis 1+ 09/27/17 11:27 Microcytosis Not Reportable 09/27/17 11:27 Macrocytosis Not Reportable 09/27/17 11:27 Spherocytes Not Reportable 09/27/17 11:27 Pappenheimer Bodies Not Reportable 09/27/17 11:27 Sickle Cells Not Reportable 09/27/17 11:27 Target Cells Not Reportable 09/27/17 11:27 Tear Drop Cells Not Reportable 09/27/17 11:27 Ovalocytes Not Reportable 09/27/17 11:27 Helmet Cells Not Reportable 09/27/17 11:27 Avitia-Chilton Bodies Not Reportable 09/27/17 11:27 Cornelius Rings Not Reportable 09/27/17 11:27 Ar Cells Not Reportable 09/27/17 11:27 Bite Cells Not Reportable 09/27/17 11:27 Crenated Cell Not Reportable 09/27/17 11:27 Elliptocytes Not Reportable 09/27/17 11:27 Acanthocytes (Spur) Not Reportable 09/27/17 11:27 Rouleaux Not Reportable 09/27/17 11:27 Hemoglobin C Crystals Not Reportable 09/27/17 11:27 Schistocytes Not Reportable 09/27/17 11:27 Malaria parasites Not Reportable 09/27/17 11:27 Krzysztof Bodies Not Reportable 09/27/17 11:27 Hem Pathologist Commnt No 09/27/17 11:27 PT 14.3 Sec. (12.2-14.9) 09/27/17 11:27 INR 1.06 (0.87-1.13) 09/27/17 11:27 APTT 28.8 Sec. (24.2-36.6) 09/27/17 11:27 VBG pH 7.382 (7.320-7.420) 09/27/17 11:27 Sodium 137 mmol/L (137-145) 09/28/17 07:24 Potassium 3.9 mmol/L (3.6-5.0) 09/28/17 07:24 Chloride 100.4 mmol/L (98-107) 09/28/17 07:24 Carbon Dioxide 24 mmol/L (22-30) 09/28/17 07:24 Anion Gap 17 mmol/L 09/28/17 07:24 BUN 6 mg/dL (9-20) L 09/28/17 07:24 Creatinine 1.0 mg/dL (0.8-1.5) 09/28/17 07:24 Estimated GFR > 60 ml/min 09/28/17 07:24 BUN/Creatinine Ratio 6 % 09/28/17 07:24 Glucose 141 mg/dL (75-100) H 09/28/17 07:24 POC Glucose 152 (70-105) H 09/28/17 07:50 Hemoglobin A1c 11.6 % (4-6) H 09/27/17 16:18 Calcium 8.2 mg/dL (8.4-10.2) L 09/28/17 07:24 Phosphorus 2.30 mg/dL (2.5-4.5) L D 09/27/17 16:18 Magnesium 2.00 mg/dL (1.7-2.3) 09/27/17 16:18 Total Bilirubin 0.80 mg/dL (0.1-1.2) 09/28/17 05:39 AST 106 units/L (5-40) H 09/28/17 05:39 ALT 47 units/L (7-56) 09/28/17 05:39 Alkaline Phosphatase 75 units/L (35-129) 09/28/17 05:39 Total Creatine Kinase 73 units/L (55-170) 09/27/17 11:27 CK-MB (CK-2) 7.2 ng/mL (0.0-4.0) H 09/27/17 11:27 CK-MB (CK-2) Rel Index 9.8 (0-4) H 09/27/17 11:27 Troponin T 0.018 ng/mL (0.00-0.029) 09/27/17 11:27 Total Protein 5.8 g/dL (6.3-8.2) L 09/28/17 05:39 Albumin 2.6 g/dL (3.9-5) L 09/28/17 05:39 Albumin/Globulin Ratio 0.8 % 09/28/17 05:39 Urine Color Straw (Yellow) 09/27/17 11:40 Urine Turbidity Clear (Clear) 09/27/17 11:40 Urine pH 6.0 (5.0-7.0) 09/27/17 11:40 Ur Specific [place] 1.024 (1.003-1.030) 09/27/17 11:40 Urine Protein <15 mg/dl mg/dL (Negative) 09/27/17 11:40 Urine Glucose (UA) >=500 mg/dL (Negative) 09/27/17 11:40 Urine Ketones Neg mg/dL (Negative) 09/27/17 11:40 Urine Blood Neg (Negative) 09/27/17 11:40 Urine Nitrite Neg (Negative) 09/27/17 11:40 Urine Bilirubin Neg (Negative) 09/27/17 11:40 Urine Urobilinogen < 2.0 mg/dL (<2.0) 09/27/17 11:40 Ur Leukocyte Esterase Neg (Negative) 09/27/17 11:40 Urine WBC (Auto) < 1.0 /HPF (0.0-6.0) 09/27/17 11:40 Urine RBC (Auto) < 1.0 /HPF (0.0-6.0) 09/27/17 11:40 Urine Mucus Few /HPF 09/27/17 11:40 Urine Creatinine 8.9 mg/dL (0.1-20.0) 09/27/17 11:40 Urine Microalbumin < 1.2 mg/dL (0.1-34.0) 09/27/17 11:40 Microalb/Creat Ratio 134.8 ug/mg 09/27/17 11:40 <OSMEL STEELE - Last Filed: 09/28/17 17:27> Hospitalist Physical - Constitutional Vitals: Temp Pulse Resp BP Pulse Ox 98.7 F 92 H 18 107/63 93 09/28/17 10:42 09/28/17 10:42 09/28/17 10:42 09/28/17 10:42 09/28/17 10:42 Results - Labs CBC & Chem 7: 09/28/17 05:39 09/28/17 16:11 Labs: Laboratory Last Values WBC 3.8 K/mm3 (4.5-11.0) L 09/28/17 05:39 RBC 3.58 M/mm3 (3.65-5.03) L 09/28/17 05:39 Hgb 11.5 gm/dl (11.8-15.2) L 09/28/17 05:39 Hct 32.9 % (35.5-45.6) L D 09/28/17 05:39 MCV 92 fl (84-94) 09/28/17 05:39 MCH 32 pg (28-32) 09/28/17 05:39 MCHC 35 % (32-34) H 09/28/17 05:39 RDW 13.7 % (13.2-15.2) 09/28/17 05:39 Plt Count 81 K/mm3 (140-440) L 09/28/17 05:39 Lymph % (Auto) 39.2 % (13.4-35.0) H 09/28/17 05:39 Murray % (Auto) 8.1 % (0.0-7.3) H 09/28/17 05:39 Eos % (Auto) 2.2 % (0.0-4.3) 09/28/17 05:39 Baso % (Auto) 1.3 % (0.0-1.8) 09/28/17 05:39 Lymph # 1.5 K/mm3 (1.2-5.4) 09/28/17 05:39 Murray # 0.3 K/mm3 (0.0-0.8) 09/28/17 05:39 Eos # 0.1 K/mm3 (0.0-0.4) 09/28/17 05:39 Baso # 0.1 K/mm3 (0.0-0.1) 09/28/17 05:39 Add Manual Diff Complete 09/27/17 11:27 Total Counted 100 09/27/17 11:27 Seg Neutrophils % 49.2 % (40.0-70.0) 09/28/17 05:39 Seg Neuts % (Manual) 81.0 % (40.0-70.0) H 09/27/17 11:27 Band Neutrophils % 1.0 % 09/27/17 11:27 Lymphocytes % (Manual) 13.0 % (13.4-35.0) L 09/27/17 11:27 Reactive Lymphs % (Man) 0 % 09/27/17 11:27 Monocytes % (Manual) 5.0 % (0.0-7.3) 09/27/17 11:27 Eosinophils % (Manual) 0 % (0.0-4.3) 09/27/17 11:27 Basophils % (Manual) 0 % (0.0-1.8) 09/27/17 11:27 Metamyelocytes % 0 % 09/27/17 11:27 Myelocytes % 0 % 09/27/17 11:27 Promyelocytes % 0 % 09/27/17 11:27 Blast Cells % 0 % 09/27/17 11:27 Nucleated RBC % Not Reportable 09/27/17 11:27 Seg Neutrophils # 1.9 K/mm3 (1.8-7.7) 09/28/17 05:39 Seg Neutrophils # Man 2.3 K/mm3 (1.8-7.7) 09/27/17 11:27 Band Neutrophils # 0.0 K/mm3 09/27/17 11:27 Lymphocytes # (Manual) 0.4 K/mm3 (1.2-5.4) L 09/27/17 11:27 Abs React Lymphs (Man) 0.0 K/mm3 09/27/17 11:27 Monocytes # (Manual) 0.1 K/mm3 (0.0-0.8) 09/27/17 11:27 Eosinophils # (Manual) 0.0 K/mm3 (0.0-0.4) 09/27/17 11:27 Basophils # (Manual) 0.0 K/mm3 (0.0-0.1) 09/27/17 11:27 Metamyelocytes # 0.0 K/mm3 09/27/17 11:27 Myelocytes # 0.0 K/mm3 09/27/17 11:27 Promyelocytes # 0.0 K/mm3 09/27/17 11:27 Blast Cells # 0.0 K/mm3 09/27/17 11:27 WBC Morphology Not Reportable 09/27/17 11:27 Hypersegmented Neuts Not Reportable 09/27/17 11:27 Hyposegmented Neuts Not Reportable 09/27/17 11:27 Hypogranular Neuts Not Reportable 09/27/17 11:27 Smudge Cells Not Reportable 09/27/17 11:27 Toxic Granulation Not Reportable 09/27/17 11:27 Toxic Vacuolation Not Reportable 09/27/17 11:27 Dohle Bodies Not Reportable 09/27/17 11:27 Pelger-Huet Anomaly Not Reportable 09/27/17 11:27 Trent Rods Not Reportable 09/27/17 11:27 Platelet Estimate Consistent w auto 09/27/17 11:27 Clumped Platelets Not Reportable 09/27/17 11:27 Plt Clumps, EDTA Not Reportable 09/27/17 11:27 Large Platelets Not Reportable 09/27/17 11:27 Giant Platelets Not Reportable 09/27/17 11:27 Platelet Satelliting Not Reportable 09/27/17 11:27 Plt Morphology Comment Not Reportable 09/27/17 11:27 RBC Morphology Not Reportable 09/27/17 11:27 Dimorphic RBCs Not Reportable 09/27/17 11:27 Polychromasia Not Reportable 09/27/17 11:27 Hypochromasia Not Reportable 09/27/17 11:27 Poikilocytosis Not Reportable 09/27/17 11:27 Anisocytosis 1+ 09/27/17 11:27 Microcytosis Not Reportable 09/27/17 11:27 Macrocytosis Not Reportable 09/27/17 11:27 Spherocytes Not Reportable 09/27/17 11:27 Pappenheimer Bodies Not Reportable 09/27/17 11:27 Sickle Cells Not Reportable 09/27/17 11:27 Target Cells Not Reportable 09/27/17 11:27 Tear Drop Cells Not Reportable 09/27/17 11:27 Ovalocytes Not Reportable 09/27/17 11:27 Helmet Cells Not Reportable 09/27/17 11:27 Avitia-Chilton Bodies Not Reportable 09/27/17 11:27 Cornelius Rings Not Reportable 09/27/17 11:27 [place] Cells Not Reportable 09/27/17 11:27 Bite Cells Not Reportable 09/27/17 11:27 Crenated Cell Not Reportable 09/27/17 11:27 Elliptocytes Not Reportable 09/27/17 11:27 Acanthocytes (Spur) Not Reportable 09/27/17 11:27 Rouleaux Not Reportable 09/27/17 11:27 Hemoglobin C Crystals Not Reportable 09/27/17 11:27 Schistocytes Not Reportable 09/27/17 11:27 Malaria parasites Not Reportable 09/27/17 11:27 Krzysztof Bodies Not Reportable 09/27/17 11:27 Hem Pathologist Commnt No 09/27/17 11:27 PT 14.3 Sec. (12.2-14.9) 09/27/17 11:27 INR 1.06 (0.87-1.13) 09/27/17 11:27 APTT 28.8 Sec. (24.2-36.6) 09/27/17 11:27 VBG pH 7.382 (7.320-7.420) 09/27/17 11:27 Sodium 132 mmol/L (137-145) L 09/28/17 16:11 Potassium 4.4 mmol/L (3.6-5.0) 09/28/17 16:11 Chloride 95.0 mmol/L (98-107) L 09/28/17 16:11 Carbon Dioxide 26 mmol/L (22-30) 09/28/17 16:11 Anion Gap 15 mmol/L 09/28/17 16:11 BUN 8 mg/dL (9-20) L 09/28/17 16:11 Creatinine 0.9 mg/dL (0.8-1.5) 09/28/17 16:11 Estimated GFR > 60 ml/min 09/28/17 16:11 BUN/Creatinine Ratio 9 % 09/28/17 16:11 Glucose 336 mg/dL (75-100) H 09/28/17 16:11 POC Glucose 306 (70-105) H 09/28/17 15:55 Hemoglobin A1c 11.6 % (4-6) H 09/27/17 16:18 Calcium 8.0 mg/dL (8.4-10.2) L 09/28/17 16:11 Phosphorus 2.30 mg/dL (2.5-4.5) L D 09/27/17 16:18 Magnesium 2.00 mg/dL (1.7-2.3) 09/27/17 16:18 Total Bilirubin 0.80 mg/dL (0.1-1.2) 09/28/17 05:39 AST 106 units/L (5-40) H 09/28/17 05:39 ALT 47 units/L (7-56) 09/28/17 05:39 Alkaline Phosphatase 75 units/L (35-129) 09/28/17 05:39 Total Creatine Kinase 73 units/L (55-170) 09/27/17 11:27 CK-MB (CK-2) 7.2 ng/mL (0.0-4.0) H 09/27/17 11:27 CK-MB (CK-2) Rel Index 9.8 (0-4) H 09/27/17 11:27 Troponin T 0.018 ng/mL (0.00-0.029) 09/27/17 11:27 Total Protein 5.8 g/dL (6.3-8.2) L 09/28/17 05:39 Albumin 2.6 g/dL (3.9-5) L 09/28/17 05:39 Albumin/Globulin Ratio 0.8 % 09/28/17 05:39 Urine Color Straw (Yellow) 09/27/17 11:40 Urine Turbidity Clear (Clear) 09/27/17 11:40 Urine pH 6.0 (5.0-7.0) 09/27/17 11:40 Ur Specific [place] 1.024 (1.003-1.030) 09/27/17 11:40 Urine Protein <15 mg/dl mg/dL (Negative) 09/27/17 11:40 Urine Glucose (UA) >=500 mg/dL (Negative) 09/27/17 11:40 Urine Ketones Neg mg/dL (Negative) 09/27/17 11:40 Urine Blood Neg (Negative) 09/27/17 11:40 Urine Nitrite Neg (Negative) 09/27/17 11:40 Urine Bilirubin Neg (Negative) 09/27/17 11:40 Urine Urobilinogen < 2.0 mg/dL (<2.0) 09/27/17 11:40 Ur Leukocyte Esterase Neg (Negative) 09/27/17 11:40 Urine WBC (Auto) < 1.0 /HPF (0.0-6.0) 09/27/17 11:40 Urine RBC (Auto) < 1.0 /HPF (0.0-6.0) 09/27/17 11:40 Urine Mucus Few /HPF 09/27/17 11:40 Urine Creatinine 8.9 mg/dL (0.1-20.0) 09/27/17 11:40 Urine Microalbumin < 1.2 mg/dL (0.1-34.0) 09/27/17 11:40 Microalb/Creat Ratio 134.8 ug/mg 09/27/17 11:40
[2017-09-28] MEDS ORDERED: LOVENOX SUB-Q SCH (10:00)
[2017-09-28] MEDS: HABITROL TD SCH ×2 (10:01→19:54)
[2017-09-28] MEDS: COREG PO SCH ×2 (10:06→22:40)
[2017-09-28] MEDS: RENVELA PO SCH ×3 (10:06→17:45)
[2017-09-28] MEDS: FOLVITE PO SCH (10:06)
[2017-09-28] MEDS: BABY ASPIRIN PO SCH (10:06)
[2017-09-28] MEDS: ZESTRIL PO SCH (10:07)
[2017-09-28] MEDS: PROTONIX PO SCH (10:07)
[2017-09-28] MEDS: NOVOLOG SUB-Q SCH ×5 (12:27→22:39)
[2017-09-28] MEDS ORDERED: LEVAQUIN 750MG/150ML 750 MG/150 ML BAG IV SCH (13:30)
--- NOTE | 2017-09-28 13:45 | XRay Report ---
AP CHEST: HISTORY: CHF Heart size and pulmonary vascularity are within normal limits. No evidence for airspace disease. Bilateral pleural calcifications are suspected which are consistent with previous asbestos exposure. No pleural effusion or pneumothorax. IMPRESSION: Evidence for previous asbestos exposure. No acute process.
[2017-09-28 13:48] LABS: Anion Gap 17 mmol/L; BUN/Creatinine Ratio 7; Blood Urea Nitrogen 7 mg/dL (9-20); Calcium 8.2 mg/dL (8.4-10.2); Carbon Dioxide 24 mmol/L (22-30); Chloride 95.8 mmol/L (98-107); Glucose 333 mg/dL (75-100); Potassium 3.9 mmol/L (3.6-5.0); Sodium 133 mmol/L (137-145)
[2017-09-28 16:42] LABS: Anion Gap 15 mmol/L; BUN/Creatinine Ratio 9; Blood Urea Nitrogen 8 mg/dL (9-20); Carbon Dioxide 26 mmol/L (22-30); Glucose 336 mg/dL (75-100); Potassium 4.4 mmol/L (3.6-5.0); Sodium 132 mmol/L (137-145)
[2017-09-28] MEDS: ZOFRAN IV PRN ×2 (17:41→22:38)
--- NOTE | 2017-09-28 19:54 | Progress Note ---
Assessment and Plan Patient sleeping at this time on room air. No acute respiratory distress. Resting on room air.O2 saturation 94%. - Patient Problems (1) Tobacco abuse Current Visit: No Status: Chronic Plan to address problem: Once patient wakesup will counselled him to stop smoking. (2) Dilated cardiomyopathy Current Visit: Yes Status: Acute (3) Hepatitis C Current Visit: Yes Status: Acute (4) Hypertension Current Visit: Yes Status: Chronic Qualifiers: (5) Insulin dependent diabetes mellitus Current Visit: Yes Status: Chronic (6) Pulmonary asbestosis Current Visit: Yes Status: Acute Plan to address problem: Chest xray findings suggestive of pulmonary asbestosis. Obtaining CAT scan of chest. Subjective Date of service: 09/28/17 Interval history: Patient sleeping at this time on room air. No acute respiratory distress. Resting on room air.O2 saturation 94%. Objective Vital Signs - 12hr 09/28/17 09/28/17 09/28/17 08:00 08:10 08:20 Temperature Pulse Rate 95 H 89 90 Respiratory 15 12 13 Rate Blood Pressure 97/66 97/66 97/66 Blood Pressure [Right] O2 Sat by Pulse 95 94 94 Oximetry 09/28/17 09/28/17 09/28/17 08:30 08:40 08:50 Temperature Pulse Rate 89 90 90 Respiratory 12 11 L 16 Rate Blood Pressure 95/59 94/72 94/72 Blood Pressure [Right] O2 Sat by Pulse 93 94 95 Oximetry 09/28/17 09/28/17 09/28/17 09:00 09:10 09:20 Temperature Pulse Rate 87 91 H 85 Respiratory 12 16 11 L Rate Blood Pressure 100/62 100/62 100/62 Blood Pressure [Right] O2 Sat by Pulse 94 94 95 Oximetry 09/28/17 09/28/17 09/28/17 09:30 09:40 09:50 Temperature Pulse Rate 84 85 82 Respiratory 13 13 14 Rate Blood Pressure 98/57 100/62 100/62 Blood Pressure [Right] O2 Sat by Pulse 95 97 Oximetry 09/28/17 09/28/17 09/28/17 10:00 10:08 10:10 Temperature Pulse Rate 99 H 92 H 90 Respiratory 19 16 12 Rate Blood Pressure 116/77 116/77 Blood Pressure 116/77 [Right] O2 Sat by Pulse 100 Oximetry 09/28/17 09/28/17 10:20 10:42 Temperature 98.7 F Pulse Rate 92 H 92 H Respiratory 15 18 Rate Blood Pressure 116/77 107/63 Blood Pressure [Right] O2 Sat by Pulse 93 Oximetry Constitutional: no acute distress, alert, other (right suprorbital swelling with sutures in place) Eyes: non-icteric ENT: oropharynx dry Neck: supple, no lymphadenopathy, no JVD Effort: normal Ascultation: Bilateral: diminished breath sounds Cardiovascular: regular rate and rhythm, murmur noted (S1,S2, no murmurs, gallops or rubs) Gastrointestinal: normoactive bowel sounds, soft, non-tender, non-distended, other (no organomegally) Integumentary: normal Extremities: no cyanosis, no edema, pink and warm, pulses normal, no ischemia or petechiae Neurologic: normal mental status, non-focal exam, pupils equal and round, CN II- XII normal, motor strength normal and Psychiatric: mood appropriate, affect normal CBC and BMP: 09/28/17 05:39 09/28/17 16:11 ABG, PT/INR, D-dimer: PT/INR, D-dimer PT 14.3 Sec. (12.2-14.9) 09/27/17 11:27 INR 1.06 (0.87-1.13) 09/27/17 11:27 Abnormal lab findings: Abnormal Labs 09/27/17 09/27/17 09/27/17 11:27 11:27 11:27 WBC 2.9 L RBC Hgb Hct MCV 96 H MCHC Plt Count 99 L Lymph % (Auto) [place] % (Auto) Seg Neuts % (Manual) 81.0 H Lymphocytes % (Manual) 13.0 L Lymphocytes # (Manual) 0.4 L Sodium 124 L Potassium Chloride 83.1 L Carbon Dioxide 18 L BUN 5 L Creatinine Glucose 990 H* POC Glucose Hemoglobin A1c Calcium Phosphorus Magnesium 1.50 L AST CK-MB (CK-2) CK-MB (CK-2) Rel Index Total Protein Albumin 09/27/17 09/27/17 09/27/17 11:27 11:32 13:14 WBC RBC Hgb Hct MCV MCHC Plt Count Lymph % (Auto) [place] % (Auto) Seg Neuts % (Manual) Lymphocytes % (Manual) Lymphocytes # (Manual) Sodium Potassium Chloride Carbon Dioxide BUN Creatinine Glucose POC Glucose > 500 H > 500 H Hemoglobin A1c Calcium Phosphorus Magnesium AST CK-MB (CK-2) 7.2 H CK-MB (CK-2) Rel Index 9.8 H Total Protein Albumin 09/27/17 09/27/17 09/27/17 14:32 16:18 16:18 WBC RBC Hgb Hct MCV MCHC Plt Count Lymph % (Auto) [place] % (Auto) Seg Neuts % (Manual) Lymphocytes % (Manual) Lymphocytes # (Manual) Sodium 126 L Potassium Chloride 86.0 L Carbon Dioxide BUN 5 L Creatinine Glucose 697 H* POC Glucose Hemoglobin A1c 11.6 H Calcium Phosphorus 2.30 L D Magnesium AST CK-MB (CK-2) CK-MB (CK-2) Rel Index Total Protein Albumin 09/27/17 09/27/17 09/27/17 16:18 17:06 17:49 WBC RBC Hgb Hct MCV MCHC Plt Count Lymph % (Auto) [place] % (Auto) Seg Neuts % (Manual) Lymphocytes % (Manual) Lymphocytes # (Manual) Sodium 129 L 132 L Potassium 3.5 L D Chloride 89.1 L 92.5 L Carbon Dioxide BUN 4 L 4 L Creatinine Glucose 448 H 312 H POC Glucose 370 H Hemoglobin A1c Calcium Phosphorus Magnesium AST CK-MB (CK-2) CK-MB (CK-2) Rel Index Total Protein Albumin 09/27/17 09/27/17 09/27/17 18:24 19:43 19:44 WBC RBC Hgb Hct MCV MCHC Plt Count Lymph % (Auto) [place] % (Auto) Seg Neuts % (Manual) Lymphocytes % (Manual) Lymphocytes # (Manual) Sodium 133 L Potassium 3.3 L Chloride 93.8 L Carbon Dioxide BUN 4 L Creatinine 0.7 L Glucose 215 H POC Glucose 292 H 227 H Hemoglobin A1c Calcium Phosphorus Magnesium AST CK-MB (CK-2) CK-MB (CK-2) Rel Index Total Protein Albumin 09/27/17 09/27/17 09/27/17 20:45 21:44 21:47 WBC RBC Hgb Hct MCV MCHC Plt Count Lymph % (Auto) [place] % (Auto) Seg Neuts % (Manual) Lymphocytes % (Manual) Lymphocytes # (Manual) Sodium 131 L Potassium 3.4 L Chloride 94.2 L Carbon Dioxide BUN 4 L Creatinine Glucose 185 H POC Glucose 218 H 197 H Hemoglobin A1c Calcium 8.3 L Phosphorus Magnesium AST CK-MB (CK-2) CK-MB (CK-2) Rel Index Total Protein Albumin 09/27/17 09/27/17 09/28/17 23:20 23:44 01:12 WBC RBC Hgb Hct MCV MCHC Plt Count Lymph % (Auto) [place] % (Auto) Seg Neuts % (Manual) Lymphocytes % (Manual) Lymphocytes # (Manual) Sodium 134 L Potassium 3.5 L Chloride 93.8 L Carbon Dioxide BUN 4 L Creatinine Glucose 142 H POC Glucose 136 H 166 H Hemoglobin A1c Calcium Phosphorus Magnesium AST CK-MB (CK-2) CK-MB (CK-2) Rel Index Total Protein Albumin 09/28/17 09/28/17 09/28/17 02:34 04:41 05:39 WBC 3.8 L RBC 3.58 L Hgb 11.5 L Hct 32.9 L D MCV MCHC 35 H Plt Count 81 L Lymph % (Auto) 39.2 H [place]ting[place] % (Auto) 8.1 H Seg Neuts % (Manual) Lymphocytes % (Manual) Lymphocytes # (Manual) Sodium Potassium Chloride Carbon Dioxide BUN Creatinine Glucose POC Glucose 178 H 141 H Hemoglobin A1c Calcium Phosphorus Magnesium AST CK-MB (CK-2) CK-MB (CK-2) Rel Index Total Protein Albumin 09/28/17 09/28/17 09/28/17 05:39 06:35 07:24 WBC RBC Hgb Hct MCV MCHC Plt Count Lymph % (Auto) [place] % (Auto) Seg Neuts % (Manual) Lymphocytes % (Manual) Lymphocytes # (Manual) Sodium 136 L Potassium 3.3 L Chloride Carbon Dioxide BUN 6 L 6 L Creatinine Glucose 148 H 141 H POC Glucose 167 H Hemoglobin A1c Calcium 8.2 L Phosphorus Magnesium AST 106 H CK-MB (CK-2) CK-MB (CK-2) Rel Index Total Protein 5.8 L Albumin 2.6 L 09/28/17 09/28/17 09/28/17 07:50 08:55 10:07 WBC RBC Hgb Hct MCV MCHC Plt Count Lymph % (Auto) [place] % (Auto) Seg Neuts % (Manual) Lymphocytes % (Manual) Lymphocytes # (Manual) Sodium Potassium Chloride Carbon Dioxide BUN Creatinine Glucose POC Glucose 152 H 166 H 177 H Hemoglobin A1c Calcium Phosphorus Magnesium AST CK-MB (CK-2) CK-MB (CK-2) Rel Index Total Protein Albumin 09/28/17 09/28/17 09/28/17 10:53 12:47 15:55 WBC RBC Hgb Hct MCV MCHC Plt Count Lymph % (Auto) [place] % (Auto) Seg Neuts % (Manual) Lymphocytes % (Manual) Lymphocytes # (Manual) Sodium 133 L Potassium Chloride 95.8 L Carbon Dioxide BUN 7 L Creatinine Glucose 333 H POC Glucose 166 H 306 H Hemoglobin A1c Calcium 8.2 L Phosphorus Magnesium AST CK-MB (CK-2) CK-MB (CK-2) Rel Index Total Protein Albumin 09/28/17 16:11 WBC RBC Hgb Hct MCV MCHC Plt Count Lymph % (Auto) [place] % (Auto) Seg Neuts % (Manual) Lymphocytes % (Manual) Lymphocytes # (Manual) Sodium 132 L Potassium Chloride 95.0 L Carbon Dioxide BUN 8 L Creatinine Glucose 336 H POC Glucose Hemoglobin A1c Calcium 8.0 L Phosphorus Magnesium AST CK-MB (CK-2) CK-MB (CK-2) Rel Index Total Protein Albumin Chest x-ray: report reviewed (Evidence for previous asbestosis exposure. No acute process.), image reviewed
[2017-09-28] MEDS ORDERED: LEVEMIR SUB-Q SCH (22:00)
[2017-09-28] MEDS: XANAX PO PRN (22:38)
[2017-09-28] MEDS: SINEquan PO SCH (22:38)
[2017-09-28] MEDS: PERCOCET 5/325 PO PRN (22:39)
[2017-09-28] MEDS: PRAVACHOL PO SCH (22:40)
[2017-09-29] MEDS: NACL 0.9% 1000 ML 1,000 ML IV SCH ×3 (00:28→23:32)
[2017-09-29 05:42] LABS: Basophils % (Auto) 1.4 % (0.0-1.8); Eosinophils % (Auto) 2.7 % (0.0-4.3); Hematocrit 33.7 % (35.5-45.6); Hemoglobin 11.5 gm/dl (11.8-15.2); Mean Corpuscular HGB Conc 34 % (32-34); Mean Corpuscular Hemoglobin 31 pg (28-32); Mean Corpuscular Volume 92 fl (84-94); Red Blood Count 3.68 M/mm3 (3.65-5.03); Red Cell Distribution Width 13.8 % (13.2-15.2); White Blood Count 2.7 K/mm3 (4.5-11.0)
[2017-09-29 05:58] LABS: Platelet Count 70 K/mm3 (140-440)
[2017-09-29 06:03] LABS: Magnesium 1.5 mg/dL (1.7-2.3); Phosphorous 3.1 mg/dL (2.5-4.5)
[2017-09-29] MEDS ORDERED: NACL ONE (07:29)
--- NOTE | 2017-09-29 08:24 | Cat Scan Report ---
CT CHEST WITH CONTRAST: HISTORY: Asbestosis. COMPARISON: 12/27/16. TECHNIQUE: Helical CT in 1.25mm intervals following IV contrast. Sagittal and coronal reformatted images. FINDINGS: Thyroid gland: Normal. Tracheobronchial tree: Normal. Esophagus: Normal. Heart: Normal. Pericardium: Normal. Mediastinum: Borderline lymph nodes along the posterior medial surface of the right mainstem bronchus measuring up to 1.4 cm. These are unchanged since the previous exam. No bulky mediastinal adenopathy. Lung Turner: The lungs are relatively well-aerated. There is mild subpleural scarring posteriorly but no evidence for consolidation, nodule or mass. Pleural Spaces: Bilateral pleural calcifications anteriorly, posteriorly and along both hemidiaphragms are noted and unchanged. No pleural effusion or pneumothorax. Musculoskeletal: Normal. Comment: Limited images of the upper abdomen demonstrate mild cirrhotic changes in the liver and at least one gallstone. IMPRESSION: Bilateral calcified pleural plaques are stable since 12/27/16 and are consistent with previous asbestos exposure. No evidence for suspicious pulmonary mass. There are a few borderline right hilar lymph nodes as described which are unchanged since 12/27/16. Mild cirrhotic changes in the liver. Cholelithiasis.
[2017-09-29] MEDS: NOVOLOG SUB-Q SCH ×7 (08:36→21:35)
[2017-09-29] MEDS: HABITROL TD SCH (09:56)
[2017-09-29] MEDS: PROTONIX PO SCH (09:57)
[2017-09-29] MEDS: COREG PO SCH ×2 (09:58→21:15)
[2017-09-29] MEDS: ZESTRIL PO SCH (09:58)
[2017-09-29] MEDS: FOLVITE PO SCH (09:59)
[2017-09-29] MEDS: LEVAQUIN PO SCH (09:59)
[2017-09-29] MEDS: BABY ASPIRIN PO SCH (09:59)
[2017-09-29] MEDS: RENVELA PO SCH ×3 (09:59→16:57)
--- NOTE | 2017-09-29 10:14 | Query- Nutrition ---
James Gayle___Francis Date:__09/29/2017 Police Detention Attendant/CDS:____Brianna Phone#:___[phone] Exercise your independent professional judgment when responding to query. Questions asked do not imply a particular answer is desired or expected. We greatly appreciate your clarification on this issue. Clinical Documentation States: 62 Year old male was admitted on 09/27/2017 with high blood glucose. Clinical Findings Show: Albumin: 2.6 Please select the most appropriate option 3 [] Mild Malnutrition [] Mild - Moderate Malnutrition [] Moderate - Severe Malnutrition [x] Severe Malnutrition Serum Albumin 2.8 to 3.4 g/dl or Pre-albumin 5 to 17 mg/dl1,2 Inadequate nutritional intake1,2,3,4 NPO > 5 days Weight loss: 5% in 1 month or 7.5% in 3 months or 10% in 6 months1, 3,4 BMI 16 to 18.4 or Weight <90% of ideal body weight1,2,3,4 Serum Albumin < 2.8 g/ dl1,2 Lymphocytes < 1500/ L2 Inadequate nutritional intake3, high stress e.g. major trauma, sepsis,pancreatitis, vasques etc. Decubitus ulcers1,2, , skin breakdown2, easy hair pluckability2 Weight <80% standard for height2 Triceps skin fold <3 mm2 Mid-arm muscle circumference <15 cm2 Creatinine-height index <60% standard2 [ ] Cachexia [ ] Emaciated w/Malnutrition [ ] Other: [ ] Unable to determine [ ] Comment/Explanation: Present on Admission: [x ] Yes (Y) [ ] Clinically undeterminable (W) [ ] No (N) Please also document response in your Progress Notes and/or Discharge Summary and indicate if the condition was present on admission. MTDD
--- NOTE | 2017-09-29 10:18 | Progress Note ---
<JAYLA MARCELO - Last Filed: 09/29/17 16:53> Assessment and Plan Assessment and plan: 62-year-old male with a past medical history of CHF, diabetes, CAD with 7 stents , and hepatitis C presents to the hospital with high blood glucose noted upon EMS arrival. Patient states he started having involuntary spasms of his right hand that then spread to his whole right arm. Symptoms are intermittent and uncontrollable. Denies any other body spasms. 3 days ago patient tripped and fell sustaining a laceration to his right eye brow. Patient did not seek medical care at that time and has a healing wound to the right brow. He denies LOC or persistent headache. Patient is on Coumadin for unknown reason (denies afib, pe,dvt,cva). Patient thinks he might have missed his single dose of insulin yesterday but apparently took a dose this morning prior to arrival. Patient denies any new weakness, numbness, or pain. [facility] Hyperosmolar non-ketotic state in patient with type 2 diabetes mellitus Off insulin drip Continue ada diet, accu checks IV fluids SSI, insulin dosage increased Hyponatremia Improved, will continue to monitor Current use of intermediate designer anticoagulation Etio unclear Insulin dependent diabetes mellitus Cont Insulin and coverage HTN (hypertension) Controlled on current antihypertensives HLD (hyperlipidemia) Cont statins CHF (congestive heart failure) Congestive heart failure chronicity acute on chronic Not on any Diuretics SIRS Urine and blood cultures results pending Started on empiric abx Hypomagnesemia Replaced we'll continue to monitor DVT prophylaxis On Coumadin History Interval history: Patient seen and examined. Patient's only complaint is that of back pain, not chronic, patient thinks its the bed. Denies chest pain, shortness of breath, nausea, vomiting. Nurse notes and lab results reviewed Hospitalist Physical - Constitutional Vitals: Temp Pulse Resp BP Pulse Ox 90.0 F L 85 18 114/72 95 09/29/17 07:26 09/29/17 07:26 09/29/17 07:26 09/29/17 07:26 09/29/17 07:26 General appearance: Present: mild distress, well-nourished - EENT Eyes: Present: PERRL, EOM intact ENT: hearing intact, clear oral mucosa - Neck Neck: Present: supple, normal ROM - Respiratory Respiratory effort: normal Respiratory: bilateral: CTA - Cardiovascular Rhythm: regular Heart Sounds: Present: S1 & S2 - Extremities Extremities: no ischemia, No edema Peripheral Pulses: within normal limits - Abdominal General gastrointestinal: soft, non-tender - Integumentary Integumentary: Present: clear, warm, dry - Psychiatric Psychiatric: appropriate mood/affect, cooperative - Neurologic Neurologic: CNII-XII intact, moves all extremities - Allied Health Allied health notes reviewed: nursing Results - Labs CBC & Chem 7: 09/29/17 05:27 09/28/17 16:11 Labs: Laboratory Last Values WBC 2.7 K/mm3 (4.5-11.0) L 09/29/17 05:27 RBC 3.68 M/mm3 (3.65-5.03) 09/29/17 05:27 Hgb 11.5 gm/dl (11.8-15.2) L 09/29/17 05:27 Hct 33.7 % (35.5-45.6) L 09/29/17 05:27 MCV 92 fl (84-94) 09/29/17 05:27 MCH 31 pg (28-32) 09/29/17 05:27 MCHC 34 % (32-34) 09/29/17 05:27 RDW 13.8 % (13.2-15.2) 09/29/17 05:27 Plt Count 70 K/mm3 (140-440) L 09/29/17 05:27 Lymph % (Auto) 32.6 % (13.4-35.0) 09/29/17 05:27 [place] % (Auto) 8.7 % (0.0-7.3) H 09/29/17 05:27 Eos % (Auto) 2.7 % (0.0-4.3) 09/29/17 05:27 Baso % (Auto) 1.4 % (0.0-1.8) 09/29/17 05:27 Lymph # 0.9 K/mm3 (1.2-5.4) L 09/29/17 05:27 [place] # 0.2 K/mm3 (0.0-0.8) 09/29/17 05:27 Eos # 0.1 K/mm3 (0.0-0.4) 09/29/17 05:27 Baso # 0.0 K/mm3 (0.0-0.1) 09/29/17 05:27 Add Manual Diff Complete 09/27/17 11:27 Total Counted 100 09/27/17 11:27 Seg Neutrophils % 54.6 % (40.0-70.0) 09/29/17 05:27 Seg Neuts % (Manual) 81.0 % (40.0-70.0) H 09/27/17 11:27 Band Neutrophils % 1.0 % 09/27/17 11:27 Lymphocytes % (Manual) 13.0 % (13.4-35.0) L 09/27/17 11:27 Reactive Lymphs % (Man) 0 % 09/27/17 11:27 Monocytes % (Manual) 5.0 % (0.0-7.3) 09/27/17 11:27 Eosinophils % (Manual) 0 % (0.0-4.3) 09/27/17 11:27 Basophils % (Manual) 0 % (0.0-1.8) 09/27/17 11:27 Metamyelocytes % 0 % 09/27/17 11:27 Myelocytes % 0 % 09/27/17 11:27 Promyelocytes % 0 % 09/27/17 11:27 Blast Cells % 0 % 09/27/17 11:27 Nucleated RBC % Not Reportable 09/27/17 11:27 Seg Neutrophils # 1.5 K/mm3 (1.8-7.7) L 09/29/17 05:27 Seg Neutrophils # Man 2.3 K/mm3 (1.8-7.7) 09/27/17 11:27 Band Neutrophils # 0.0 K/mm3 09/27/17 11:27 Lymphocytes # (Manual) 0.4 K/mm3 (1.2-5.4) L 09/27/17 11:27 Abs React Lymphs (Man) 0.0 K/mm3 09/27/17 11:27 Monocytes # (Manual) 0.1 K/mm3 (0.0-0.8) 09/27/17 11:27 Eosinophils # (Manual) 0.0 K/mm3 (0.0-0.4) 09/27/17 11:27 Basophils # (Manual) 0.0 K/mm3 (0.0-0.1) 09/27/17 11:27 Metamyelocytes # 0.0 K/mm3 09/27/17 11:27 Myelocytes # 0.0 K/mm3 09/27/17 11:27 Promyelocytes # 0.0 K/mm3 09/27/17 11:27 Blast Cells # 0.0 K/mm3 09/27/17 11:27 WBC Morphology Not Reportable 09/27/17 11:27 Hypersegmented Neuts Not Reportable 09/27/17 11:27 Hyposegmented Neuts Not Reportable 09/27/17 11:27 Hypogranular Neuts Not Reportable 09/27/17 11:27 Smudge Cells Not Reportable 09/27/17 11:27 Toxic Granulation Not Reportable 09/27/17 11:27 Toxic Vacuolation Not Reportable 09/27/17 11:27 Dohle Bodies Not Reportable 09/27/17 11:27 Pelger-Huet Anomaly Not Reportable 09/27/17 11:27 Trent Rods Not Reportable 09/27/17 11:27 Platelet Estimate Consistent w auto 09/27/17 11:27 Clumped Platelets Not Reportable 09/27/17 11:27 Plt Clumps, EDTA Not Reportable 09/27/17 11:27 Large Platelets Not Reportable 09/27/17 11:27 Giant Platelets Not Reportable 09/27/17 11:27 Platelet Satelliting Not Reportable 09/27/17 11:27 Plt Morphology Comment Not Reportable 09/27/17 11:27 RBC Morphology Not Reportable 09/27/17 11:27 Dimorphic RBCs Not Reportable 09/27/17 11:27 Polychromasia Not Reportable 09/27/17 11:27 Hypochromasia Not Reportable 09/27/17 11:27 Poikilocytosis Not Reportable 09/27/17 11:27 Anisocytosis 1+ 09/27/17 11:27 Microcytosis Not Reportable 09/27/17 11:27 Macrocytosis Not Reportable 09/27/17 11:27 Spherocytes Not Reportable 09/27/17 11:27 Pappenheimer Bodies Not Reportable 09/27/17 11:27 Sickle Cells Not Reportable 09/27/17 11:27 Target Cells Not Reportable 09/27/17 11:27 Tear Drop Cells Not Reportable 09/27/17 11:27 Ovalocytes Not Reportable 09/27/17 11:27 Helmet Cells Not Reportable 09/27/17 11:27 [place] Bodies Not Reportable 09/27/17 11:27 [place] Rings Not Reportable 09/27/17 11:27 [place] Cells Not Reportable 09/27/17 11:27 Bite Cells Not Reportable 09/27/17 11:27 Crenated Cell Not Reportable 09/27/17 11:27 Elliptocytes Not Reportable 09/27/17 11:27 Acanthocytes (Spur) Not Reportable 09/27/17 11:27 Rouleaux Not Reportable 09/27/17 11:27 Hemoglobin C Crystals Not Reportable 09/27/17 11:27 Schistocytes Not Reportable 09/27/17 11:27 Malaria parasites Not Reportable 09/27/17 11:27 Krzysztof Bodies Not Reportable 09/27/17 11:27 Hem Pathologist Commnt No 09/27/17 11:27 PT 14.3 Sec. (12.2-14.9) 09/27/17 11:27 INR 1.06 (0.87-1.13) 09/27/17 11:27 APTT 28.8 Sec. (24.2-36.6) 09/27/17 11:27 VBG pH 7.382 (7.320-7.420) 09/27/17 11:27 Sodium 132 mmol/L (137-145) L 09/28/17 16:11 Potassium 4.4 mmol/L (3.6-5.0) 09/28/17 16:11 Chloride 95.0 mmol/L (98-107) L 09/28/17 16:11 Carbon Dioxide 26 mmol/L (22-30) 09/28/17 16:11 Anion Gap 15 mmol/L 09/28/17 16:11 BUN 8 mg/dL (9-20) L 09/28/17 16:11 Creatinine 0.9 mg/dL (0.8-1.5) 09/28/17 16:11 Estimated GFR > 60 ml/min 09/28/17 16:11 BUN/Creatinine Ratio 9 % 09/28/17 16:11 Glucose 336 mg/dL (75-100) H 09/28/17 16:11 POC Glucose 302 (70-105) H 09/29/17 05:33 Hemoglobin A1c 11.6 % (4-6) H 09/27/17 16:18 Calcium 8.0 mg/dL (8.4-10.2) L 09/28/17 16:11 Phosphorus 3.10 mg/dL (2.5-4.5) D 09/29/17 05:27 Magnesium 1.50 mg/dL (1.7-2.3) L 09/29/17 05:27 Total Bilirubin 0.80 mg/dL (0.1-1.2) 09/28/17 05:39 AST 106 units/L (5-40) H 09/28/17 05:39 ALT 47 units/L (7-56) 09/28/17 05:39 Alkaline Phosphatase 75 units/L (35-129) 09/28/17 05:39 Total Creatine Kinase 73 units/L (55-170) 09/27/17 11:27 CK-MB (CK-2) 7.2 ng/mL (0.0-4.0) H 09/27/17 11:27 CK-MB (CK-2) Rel Index 9.8 (0-4) H 09/27/17 11:27 Troponin T 0.018 ng/mL (0.00-0.029) 09/27/17 11:27 Total Protein 5.8 g/dL (6.3-8.2) L 09/28/17 05:39 Albumin 2.6 g/dL (3.9-5) L 09/28/17 05:39 Albumin/Globulin Ratio 0.8 % 09/28/17 05:39 Urine Color Straw (Yellow) 09/27/17 11:40 Urine Turbidity Clear (Clear) 09/27/17 11:40 Urine pH 6.0 (5.0-7.0) 09/27/17 11:40 Ur Specific [place] 1.024 (1.003-1.030) 09/27/17 11:40 Urine Protein <15 mg/dl mg/dL (Negative) 09/27/17 11:40 Urine Glucose (UA) >=500 mg/dL (Negative) 09/27/17 11:40 Urine Ketones Neg mg/dL (Negative) 09/27/17 11:40 Urine Blood Neg (Negative) 09/27/17 11:40 Urine Nitrite Neg (Negative) 09/27/17 11:40 Urine Bilirubin Neg (Negative) 09/27/17 11:40 Urine Urobilinogen < 2.0 mg/dL (<2.0) 09/27/17 11:40 Ur Leukocyte Esterase Neg (Negative) 09/27/17 11:40 Urine WBC (Auto) < 1.0 /HPF (0.0-6.0) 09/27/17 11:40 Urine RBC (Auto) < 1.0 /HPF (0.0-6.0) 09/27/17 11:40 Urine Mucus Few /HPF 09/27/17 11:40 Urine Creatinine 8.9 mg/dL (0.1-20.0) 09/27/17 11:40 Urine Microalbumin < 1.2 mg/dL (0.1-34.0) 09/27/17 11:40 Microalb/Creat Ratio 134.8 ug/mg 09/27/17 11:40 - Imaging and Cardiology CT scan - chest: image reviewed <OSMEL STEELE - Last Filed: 09/29/17 18:27> Assessment and Plan Assessment and plan: I saw and evaluated the patient. I agree with the findings and the plan of care as documented in the Nurse Practitioner's~note, with the following corrections and additions. Patient sugars are uncontrolled Insulin dose increased, diabetic education Counseling done advised to adhere to treatment and diet plan Verbalized understanding Hospitalist Physical - Constitutional Vitals: Temp Pulse Resp BP Pulse Ox 98.1 F 85 18 96/57 73 L 09/29/17 16:09 09/29/17 16:09 09/29/17 16:09 09/29/17 16:09 09/29/17 16:09 Results - Labs CBC & Chem 7: 09/29/17 05:27 09/28/17 16:11 Labs: Laboratory Last Values WBC 2.7 K/mm3 (4.5-11.0) L 09/29/17 05:27 RBC 3.68 M/mm3 (3.65-5.03) 09/29/17 05:27 Hgb 11.5 gm/dl (11.8-15.2) L 09/29/17 05:27 Hct 33.7 % (35.5-45.6) L 09/29/17 05:27 MCV 92 fl (84-94) 09/29/17 05:27 MCH 31 pg (28-32) 09/29/17 05:27 MCHC 34 % (32-34) 09/29/17 05:27 RDW 13.8 % (13.2-15.2) 09/29/17 05:27 Plt Count 70 K/mm3 (140-440) L 09/29/17 05:27 Lymph % (Auto) 32.6 % (13.4-35.0) 09/29/17 05:27 [place] % (Auto) 8.7 % (0.0-7.3) H 09/29/17 05:27 Eos % (Auto) 2.7 % (0.0-4.3) 09/29/17 05:27 Baso % (Auto) 1.4 % (0.0-1.8) 09/29/17 05:27 Lymph # 0.9 K/mm3 (1.2-5.4) L 09/29/17 05:27 [place] # 0.2 K/mm3 (0.0-0.8) 09/29/17 05:27 Eos # 0.1 K/mm3 (0.0-0.4) 09/29/17 05:27 Baso # 0.0 K/mm3 (0.0-0.1) 09/29/17 05:27 Add Manual Diff Complete 09/27/17 11:27 Total Counted 100 09/27/17 11:27 Seg Neutrophils % 54.6 % (40.0-70.0) 09/29/17 05:27 Seg Neuts % (Manual) 81.0 % (40.0-70.0) H 09/27/17 11:27 Band Neutrophils % 1.0 % 09/27/17 11:27 Lymphocytes % (Manual) 13.0 % (13.4-35.0) L 09/27/17 11:27 Reactive Lymphs % (Man) 0 % 09/27/17 11:27 Monocytes % (Manual) 5.0 % (0.0-7.3) 09/27/17 11:27 Eosinophils % (Manual) 0 % (0.0-4.3) 09/27/17 11:27 Basophils % (Manual) 0 % (0.0-1.8) 09/27/17 11:27 Metamyelocytes % 0 % 09/27/17 11:27 Myelocytes % 0 % 09/27/17 11:27 Promyelocytes % 0 % 09/27/17 11:27 Blast Cells % 0 % 09/27/17 11:27 Nucleated RBC % Not Reportable 09/27/17 11:27 Seg Neutrophils # 1.5 K/mm3 (1.8-7.7) L 09/29/17 05:27 Seg Neutrophils # Man 2.3 K/mm3 (1.8-7.7) 09/27/17 11:27 Band Neutrophils # 0.0 K/mm3 09/27/17 11:27 Lymphocytes # (Manual) 0.4 K/mm3 (1.2-5.4) L 09/27/17 11:27 Abs React Lymphs (Man) 0.0 K/mm3 09/27/17 11:27 Monocytes # (Manual) 0.1 K/mm3 (0.0-0.8) 09/27/17 11:27 Eosinophils # (Manual) 0.0 K/mm3 (0.0-0.4) 09/27/17 11:27 Basophils # (Manual) 0.0 K/mm3 (0.0-0.1) 09/27/17 11:27 Metamyelocytes # 0.0 K/mm3 09/27/17 11:27 Myelocytes # 0.0 K/mm3 09/27/17 11:27 Promyelocytes # 0.0 K/mm3 09/27/17 11:27 Blast Cells # 0.0 K/mm3 09/27/17 11:27 WBC Morphology Not Reportable 09/27/17 11:27 Hypersegmented Neuts Not Reportable 09/27/17 11:27 Hyposegmented Neuts Not Reportable 09/27/17 11:27 Hypogranular Neuts Not Reportable 09/27/17 11:27 Smudge Cells Not Reportable 09/27/17 11:27 Toxic Granulation Not Reportable 09/27/17 11:27 Toxic Vacuolation Not Reportable 09/27/17 11:27 Dohle Bodies Not Reportable 09/27/17 11:27 Pelger-Huet Anomaly Not Reportable 09/27/17 11:27 Trent Rods Not Reportable 09/27/17 11:27 Platelet Estimate Consistent w auto 09/27/17 11:27 Clumped Platelets Not Reportable 09/27/17 11:27 Plt Clumps, EDTA Not Reportable 09/27/17 11:27 Large Platelets Not Reportable 09/27/17 11:27 Giant Platelets Not Reportable 09/27/17 11:27 Platelet Satelliting Not Reportable 09/27/17 11:27 Plt Morphology Comment Not Reportable 09/27/17 11:27 RBC Morphology Not Reportable 09/27/17 11:27 Dimorphic RBCs Not Reportable 09/27/17 11:27 Polychromasia Not Reportable 09/27/17 11:27 Hypochromasia Not Reportable 09/27/17 11:27 Poikilocytosis Not Reportable 09/27/17 11:27 Anisocytosis 1+ 09/27/17 11:27 Microcytosis Not Reportable 09/27/17 11:27 Macrocytosis Not Reportable 09/27/17 11:27 Spherocytes Not Reportable 09/27/17 11:27 Pappenheimer Bodies Not Reportable 09/27/17 11:27 Sickle Cells Not Reportable 09/27/17 11:27 Target Cells Not Reportable 09/27/17 11:27 Tear Drop Cells Not Reportable 09/27/17 11:27 Ovalocytes Not Reportable 09/27/17 11:27 Helmet Cells Not Reportable 09/27/17 11:27 [place] Bodies Not Reportable 09/27/17 11:27 [place] Not Reportable 09/27/17 11:27 [place] Cells Not Reportable 09/27/17 11:27 Bite Cells Not Reportable 09/27/17 11:27 Crenated Cell Not Reportable 09/27/17 11:27 Elliptocytes Not Reportable 09/27/17 11:27 Acanthocytes (Spur) Not Reportable 09/27/17 11:27 Rouleaux Not Reportable 09/27/17 11:27 Hemoglobin C Crystals Not Reportable 09/27/17 11:27 Schistocytes Not Reportable 09/27/17 11:27 Malaria parasites Not Reportable 09/27/17 11:27 Krzysztof Bodies Not Reportable 09/27/17 11:27 Hem Pathologist Commnt No 09/27/17 11:27 PT 14.3 Sec. (12.2-14.9) 09/27/17 11:27 INR 1.06 (0.87-1.13) 09/27/17 11:27 APTT 28.8 Sec. (24.2-36.6) 09/27/17 11:27 VBG pH 7.382 (7.320-7.420) 09/27/17 11:27 Sodium 132 mmol/L (137-145) L 09/28/17 16:11 Potassium 4.4 mmol/L (3.6-5.0) 09/28/17 16:11 Chloride 95.0 mmol/L (98-107) L 09/28/17 16:11 Carbon Dioxide 26 mmol/L (22-30) 09/28/17 16:11 Anion Gap 15 mmol/L 09/28/17 16:11 BUN 8 mg/dL (9-20) L 09/28/17 16:11 Creatinine 0.9 mg/dL (0.8-1.5) 09/28/17 16:11 Estimated GFR > 60 ml/min 09/28/17 16:11 BUN/Creatinine Ratio 9 % 09/28/17 16:11 Glucose 336 mg/dL (75-100) H 09/28/17 16:11 POC Glucose 282 (70-105) H 09/29/17 11:33 Hemoglobin A1c 11.6 % (4-6) H 09/27/17 16:18 Calcium 8.0 mg/dL (8.4-10.2) L 09/28/17 16:11 Phosphorus 3.10 mg/dL (2.5-4.5) D 09/29/17 05:27 Magnesium 1.50 mg/dL (1.7-2.3) L 09/29/17 05:27 Total Bilirubin 0.80 mg/dL (0.1-1.2) 09/28/17 05:39 AST 106 units/L (5-40) H 09/28/17 05:39 ALT 47 units/L (7-56) 09/28/17 05:39 Alkaline Phosphatase 75 units/L (35-129) 09/28/17 05:39 Total Creatine Kinase 73 units/L (55-170) 09/27/17 11:27 CK-MB (CK-2) 7.2 ng/mL (0.0-4.0) H 09/27/17 11:27 CK-MB (CK-2) Rel Index 9.8 (0-4) H 09/27/17 11:27 Troponin T 0.018 ng/mL (0.00-0.029) 09/27/17 11:27 Total Protein 5.8 g/dL (6.3-8.2) L 09/28/17 05:39 Albumin 2.6 g/dL (3.9-5) L 09/28/17 05:39 Albumin/Globulin Ratio 0.8 % 09/28/17 05:39 Urine Color Straw (Yellow) 09/27/17 11:40 Urine Turbidity Clear (Clear) 09/27/17 11:40 Urine pH 6.0 (5.0-7.0) 09/27/17 11:40 Ur Specific [place] 1.024 (1.003-1.030) 09/27/17 11:40 Urine Protein <15 mg/dl mg/dL (Negative) 09/27/17 11:40 Urine Glucose (UA) >=500 mg/dL (Negative) 09/27/17 11:40 Urine Ketones Neg mg/dL (Negative) 09/27/17 11:40 Urine Blood Neg (Negative) 09/27/17 11:40 Urine Nitrite Neg (Negative) 09/27/17 11:40 Urine Bilirubin Neg (Negative) 09/27/17 11:40 Urine Urobilinogen < 2.0 mg/dL (<2.0) 09/27/17 11:40 Ur Leukocyte Esterase Neg (Negative) 09/27/17 11:40 Urine WBC (Auto) < 1.0 /HPF (0.0-6.0) 09/27/17 11:40 Urine RBC (Auto) < 1.0 /HPF (0.0-6.0) 09/27/17 11:40 Urine Mucus Few /HPF 09/27/17 11:40 Urine Creatinine 8.9 mg/dL (0.1-20.0) 09/27/17 11:40 Urine Microalbumin < 1.2 mg/dL (0.1-34.0) 09/27/17 11:40 Microalb/Creat Ratio 134.8 ug/mg 09/27/17 11:40
[2017-09-29] MEDS ORDERED: MAGNESIUM SULFATE 2GM/50ML 2 GM/50 ML BAG IV ONE (11:00)
[2017-09-29] MEDS: PERCOCET 5/325 PO PRN ×3 (11:44→23:31)
[2017-09-29] MEDS: ZOFRAN IV PRN ×2 (16:57→21:16)
--- NOTE | 2017-09-29 19:28 | Progress Note ---
Assessment and Plan Patient sleeping at this time on room air. No acute respiratory distress. Resting on room air.O2 saturation 94%. - Patient Problems (1) Tobacco abuse Current Visit: No Status: Chronic Plan to address problem: ounselled him to stop smoking. (2) Dilated cardiomyopathy Current Visit: Yes Status: Acute Plan to address problem: Management as per cardiology. 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 (4) Hypertension Current Visit: Yes Status: Chronic Qualifiers: Plan to address problem: Management as per primary care. (5) Insulin dependent diabetes mellitus Current Visit: Yes Status: Chronic Plan to address problem: Management as per primary care. (6) Pulmonary asbestosis Current Visit: Yes Status: Acute Plan to address problem: CAT scan of chest bilateral pleural plaques consistent with previous asbestosis exposure. Subjective Date of service: 09/29/17 Interval history: Patient sleeping at this time on room air. No acute respiratory distress. Resting on room air.O2 saturation 94%. Objective Vital Signs - 12hr 09/29/17 09/29/17 07:26 16:09 Temperature 90.0 F L 98.1 F Pulse Rate 85 85 Respiratory 18 18 Rate Blood Pressure 114/72 96/57 O2 Sat by Pulse 95 73 L Oximetry Constitutional: no acute distress, alert, other (right suprorbital swelling with sutures in place) Eyes: non-icteric ENT: oropharynx dry Neck: supple, no lymphadenopathy, no JVD Effort: normal Ascultation: Bilateral: diminished breath sounds Cardiovascular: regular rate and rhythm, murmur noted (S1,S2, no murmurs, gallops or rubs) Gastrointestinal: normoactive bowel sounds, soft, non-tender, non-distended, other (no organomegally) Integumentary: normal Extremities: no cyanosis, no edema, pink and warm, pulses normal, no ischemia or petechiae Neurologic: normal mental status, non-focal exam, pupils equal and round, CN II- XII normal, motor strength normal and Psychiatric: mood appropriate, affect normal CBC and BMP: 09/29/17 05:27 09/28/17 16:11 ABG, PT/INR, D-dimer: PT/INR, D-dimer PT 14.3 Sec. (12.2-14.9) 09/27/17 11:27 INR 1.06 (0.87-1.13) 09/27/17 11:27 Abnormal lab findings: Abnormal Labs 09/27/17 09/27/17 09/27/17 11:27 11:27 11:27 WBC 2.9 L RBC Hgb Hct MCV 96 H MCHC Plt Count 99 L Lymph % (Auto) [place] % (Auto) Lymph # Seg Neuts % (Manual) 81.0 H Lymphocytes % (Manual) 13.0 L Seg Neutrophils # Lymphocytes # (Manual) 0.4 L Sodium 124 L Potassium Chloride 83.1 L Carbon Dioxide 18 L BUN 5 L Creatinine Glucose 990 H* POC Glucose Hemoglobin A1c Calcium Phosphorus Magnesium 1.50 L AST CK-MB (CK-2) CK-MB (CK-2) Rel Index Total Protein Albumin 09/27/17 09/27/17 09/27/17 11:27 11:32 13:14 WBC RBC Hgb Hct MCV MCHC Plt Count Lymph % (Auto) [place] % (Auto) Lymph # Seg Neuts % (Manual) Lymphocytes % (Manual) Seg Neutrophils # Lymphocytes # (Manual) Sodium Potassium Chloride Carbon Dioxide BUN Creatinine Glucose POC Glucose > 500 H > 500 H Hemoglobin A1c Calcium Phosphorus Magnesium AST CK-MB (CK-2) 7.2 H CK-MB (CK-2) Rel Index 9.8 H Total Protein Albumin 09/27/17 09/27/17 09/27/17 14:32 16:18 16:18 WBC RBC Hgb Hct MCV MCHC Plt Count Lymph % (Auto) [place] % (Auto) Lymph # Seg Neuts % (Manual) Lymphocytes % (Manual) Seg Neutrophils # Lymphocytes # (Manual) Sodium 126 L Potassium Chloride 86.0 L Carbon Dioxide BUN 5 L Creatinine Glucose 697 H* POC Glucose Hemoglobin A1c 11.6 H Calcium Phosphorus 2.30 L D Magnesium AST CK-MB (CK-2) CK-MB (CK-2) Rel Index Total Protein Albumin 09/27/17 09/27/17 09/27/17 16:18 17:06 17:49 WBC RBC Hgb Hct MCV MCHC Plt Count Lymph % (Auto) [place] % (Auto) Lymph # Seg Neuts % (Manual) Lymphocytes % (Manual) Seg Neutrophils # Lymphocytes # (Manual) Sodium 129 L 132 L Potassium 3.5 L D Chloride 89.1 L 92.5 L Carbon Dioxide BUN 4 L 4 L Creatinine Glucose 448 H 312 H POC Glucose 370 H Hemoglobin A1c Calcium Phosphorus Magnesium AST CK-MB (CK-2) CK-MB (CK-2) Rel Index Total Protein Albumin 09/27/17 09/27/17 09/27/17 18:24 19:43 19:44 WBC RBC Hgb Hct MCV MCHC Plt Count Lymph % (Auto) [place] % (Auto) Lymph # Seg Neuts % (Manual) Lymphocytes % (Manual) Seg Neutrophils # Lymphocytes # (Manual) Sodium 133 L Potassium 3.3 L Chloride 93.8 L Carbon Dioxide BUN 4 L Creatinine 0.7 L Glucose 215 H POC Glucose 292 H 227 H Hemoglobin A1c Calcium Phosphorus Magnesium AST CK-MB (CK-2) CK-MB (CK-2) Rel Index Total Protein Albumin 09/27/17 09/27/17 09/27/17 20:45 21:44 21:47 WBC RBC Hgb Hct MCV MCHC Plt Count Lymph % (Auto) [place] % (Auto) Lymph # Seg Neuts % (Manual) Lymphocytes % (Manual) Seg Neutrophils # Lymphocytes # (Manual) Sodium 131 L Potassium 3.4 L Chloride 94.2 L Carbon Dioxide BUN 4 L Creatinine Glucose 185 H POC Glucose 218 H 197 H Hemoglobin A1c Calcium 8.3 L Phosphorus Magnesium AST CK-MB (CK-2) CK-MB (CK-2) Rel Index Total Protein Albumin 09/27/17 09/27/17 09/28/17 23:20 23:44 01:12 WBC RBC Hgb Hct MCV MCHC Plt Count Lymph % (Auto) [place] % (Auto) Lymph # Seg Neuts % (Manual) Lymphocytes % (Manual) Seg Neutrophils # Lymphocytes # (Manual) Sodium 134 L Potassium 3.5 L Chloride 93.8 L Carbon Dioxide BUN 4 L Creatinine Glucose 142 H POC Glucose 136 H 166 H Hemoglobin A1c Calcium Phosphorus Magnesium AST CK-MB (CK-2) CK-MB (CK-2) Rel Index Total Protein Albumin 09/28/17 09/28/17 09/28/17 02:34 04:41 05:39 WBC 3.8 L RBC 3.58 L Hgb 11.5 L Hct 32.9 L D MCV MCHC 35 H Plt Count 81 L Lymph % (Auto) 39.2 H [place] % (Auto) 8.1 H Lymph # Seg Neuts % (Manual) Lymphocytes % (Manual) Seg Neutrophils # Lymphocytes # (Manual) Sodium Potassium Chloride Carbon Dioxide BUN Creatinine Glucose POC Glucose 178 H 141 H Hemoglobin A1c Calcium Phosphorus Magnesium AST CK-MB (CK-2) CK-MB (CK-2) Rel Index Total Protein Albumin 09/28/17 09/28/17 09/28/17 05:39 06:35 07:24 WBC RBC Hgb Hct MCV MCHC Plt Count Lymph % (Auto) [place] % (Auto) Lymph # Seg Neuts % (Manual) Lymphocytes % (Manual) Seg Neutrophils # Lymphocytes # (Manual) Sodium 136 L Potassium 3.3 L Chloride Carbon Dioxide BUN 6 L 6 L Creatinine Glucose 148 H 141 H POC Glucose 167 H Hemoglobin A1c Calcium 8.2 L Phosphorus Magnesium AST 106 H CK-MB (CK-2) CK-MB (CK-2) Rel Index Total Protein 5.8 L Albumin 2.6 L 09/28/17 09/28/17 09/28/17 07:50 08:55 10:07 WBC RBC Hgb Hct MCV MCHC Plt Count Lymph % (Auto) [place] % (Auto) Lymph # Seg Neuts % (Manual) Lymphocytes % (Manual) Seg Neutrophils # Lymphocytes # (Manual) Sodium Potassium Chloride Carbon Dioxide BUN Creatinine Glucose POC Glucose 152 H 166 H 177 H Hemoglobin A1c Calcium Phosphorus Magnesium AST CK-MB (CK-2) CK-MB (CK-2) Rel Index Total Protein Albumin 09/28/17 09/28/17 09/28/17 10:53 12:47 15:55 WBC RBC Hgb Hct MCV MCHC Plt Count Lymph % (Auto) [place] % (Auto) Lymph # Seg Neuts % (Manual) Lymphocytes % (Manual) Seg Neutrophils # Lymphocytes # (Manual) Sodium 133 L Potassium Chloride 95.8 L Carbon Dioxide BUN 7 L Creatinine Glucose 333 H POC Glucose 166 H 306 H Hemoglobin A1c Calcium 8.2 L Phosphorus Magnesium AST CK-MB (CK-2) CK-MB (CK-2) Rel Index Total Protein Albumin 09/28/17 09/28/17 09/29/17 16:11 22:06 05:27 WBC 2.7 L RBC Hgb 11.5 L Hct 33.7 L MCV MCHC Plt Count 70 L Lymph % (Auto) [place] % (Auto) 8.7 H Lymph # 0.9 L Seg Neuts % (Manual) Lymphocytes % (Manual) Seg Neutrophils # 1.5 L Lymphocytes # (Manual) Sodium 132 L Potassium Chloride 95.0 L Carbon Dioxide BUN 8 L Creatinine Glucose 336 H POC Glucose 378 H Hemoglobin A1c Calcium 8.0 L Phosphorus Magnesium AST CK-MB (CK-2) CK-MB (CK-2) Rel Index Total Protein Albumin 09/29/17 09/29/17 09/29/17 05:27 05:33 11:33 WBC RBC Hgb Hct MCV MCHC Plt Count Lymph % (Auto) [place] % (Auto) Lymph # Seg Neuts % (Manual) Lymphocytes % (Manual) Seg Neutrophils # Lymphocytes # (Manual) Sodium Potassium Chloride Carbon Dioxide BUN Creatinine Glucose POC Glucose 302 H 282 H Hemoglobin A1c Calcium Phosphorus Magnesium 1.50 L AST CK-MB (CK-2) CK-MB (CK-2) Rel Index Total Protein Albumin 09/29/17 16:18 WBC RBC Hgb Hct MCV MCHC Plt Count Lymph % (Auto) [place] % (Auto) Lymph # Seg Neuts % (Manual) Lymphocytes % (Manual) Seg Neutrophils # Lymphocytes # (Manual) Sodium Potassium Chloride Carbon Dioxide BUN Creatinine Glucose POC Glucose 169 H Hemoglobin A1c Calcium Phosphorus Magnesium AST CK-MB (CK-2) CK-MB (CK-2) Rel Index Total Protein Albumin CT scan - chest: report reviewed (Bilateral pleural plaques consistent with previous asbestosis exposure.), image reviewed
[2017-09-29] MEDS: PRAVACHOL PO SCH (21:14)
[2017-09-29] MEDS: XANAX PO PRN (21:15)
[2017-09-29] MEDS: LEVEMIR SUB-Q SCH (21:16)
[2017-09-29] MEDS: SINEquan PO SCH (21:38)
[2017-09-30 06:34] LABS: Hematocrit 33.3 % (35.5-45.6); Hemoglobin 11.4 gm/dl (11.8-15.2); Mean Corpuscular HGB Conc 34 % (32-34); Mean Corpuscular Hemoglobin 32 pg (28-32); Mean Corpuscular Volume 93 fl (84-94); Red Blood Count 3.59 M/mm3 (3.65-5.03); White Blood Count 2.7 K/mm3 (4.5-11.0)
[2017-09-30 06:35] LABS: Basophils % (Auto) 1.3 % (0.0-1.8); Eosinophils % (Auto) 3.2 % (0.0-4.3)
[2017-09-30 06:40] LABS: Platelet Count 67 K/mm3 (140-440)
[2017-09-30 07:45] LABS: Alanine Aminotransferase 47 units/L (7-56); Albumin 2.4 g/dL (3.9-5); Albumin/Globulin Ratio 0.8 %; Alkaline Phosphatase 75 units/L (35-129); Anion Gap 14 mmol/L; BUN/Creatinine Ratio 10; Blood Urea Nitrogen 7 mg/dL (9-20); Calcium 8.1 mg/dL (8.4-10.2); Carbon Dioxide 25 mmol/L (22-30); Chloride 103.3 mmol/L (98-107); Glucose 193 mg/dL (75-100); Potassium 4.1 mmol/L (3.6-5.0); Sodium 138 mmol/L (137-145); Total Protein 5.5 g/dL (6.3-8.2)
[2017-09-30] MEDS: NACL 0.9% 1000 ML 1,000 ML IV SCH ×2 (07:55→17:57)
[2017-09-30] MEDS: RENVELA PO SCH ×3 (07:59→17:52)
[2017-09-30] MEDS: PERCOCET 5/325 PO PRN ×2 (07:59→18:26)
[2017-09-30] MEDS: NOVOLOG SUB-Q SCH ×7 (08:48→22:56)
--- NOTE | 2017-09-30 09:07 | Progress Note ---
<JAYLA MARCELO - Last Filed: 09/30/17 15:19> Assessment and Plan Assessment and plan: 62-year-old male with a past medical history of CHF, diabetes, CAD with 7 stents , and hepatitis C presents to the hospital with high blood glucose noted upon EMS arrival. Patient states he started having involuntary spasms of his right hand that then spread to his whole right arm. Symptoms are intermittent and uncontrollable. Denies any other body spasms. 3 days ago patient tripped and fell sustaining a laceration to his right eye brow. Patient did not seek medical care at that time and has a healing wound to the right brow. He denies LOC or persistent headache. Patient is on Coumadin for unknown reason (denies afib, pe,dvt,cva). Patient thinks he might have missed his single dose of insulin yesterday but apparently took a dose this morning prior to arrival. Patient denies any new weakness, numbness, or pain. 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 Patient continues to complain of back pain, not chronic, patient thinks its the bed. Denies chest pain, shortness of breath, nausea, vomiting. Nurse notes and lab results reviewed Hospitalist Physical - Constitutional Vitals: Temp Pulse Resp BP Pulse Ox 98.5 F 92 H 22 126/79 93 09/30/17 07:37 09/30/17 03:58 09/30/17 07:37 09/30/17 07:37 09/30/17 03:58 General appearance: Present: mild distress, well-nourished - EENT Eyes: Present: PERRL, EOM intact ENT: hearing intact, clear oral mucosa - Neck Neck: Present: supple, normal ROM - Respiratory Respiratory effort: normal Respiratory: bilateral: CTA - Cardiovascular Rhythm: regular Heart Sounds: Present: S1 & S2 - Extremities Extremities: no ischemia, No edema Peripheral Pulses: within normal limits - Abdominal General gastrointestinal: soft, non-tender - Integumentary Integumentary: Present: clear, warm, dry - Psychiatric Psychiatric: appropriate mood/affect, cooperative - Neurologic Neurologic: CNII-XII intact - Allied Health Allied health notes reviewed: nursing Results - Labs CBC & Chem 7: 09/30/17 06:10 09/30/17 06:10 Labs: Laboratory Last Values WBC 2.7 K/mm3 (4.5-11.0) L 09/30/17 06:10 RBC 3.59 M/mm3 (3.65-5.03) L 09/30/17 06:10 Hgb 11.4 gm/dl (11.8-15.2) L 09/30/17 06:10 Hct 33.3 % (35.5-45.6) L 09/30/17 06:10 MCV 93 fl (84-94) 09/30/17 06:10 MCH 32 pg (28-32) 09/30/17 06:10 MCHC 34 % (32-34) 09/30/17 06:10 RDW 14.0 % (13.2-15.2) 09/30/17 06:10 Plt Count 67 K/mm3 (140-440) L 09/30/17 06:10 Lymph % (Auto) 37.5 % (13.4-35.0) H 09/30/17 06:10 [place] % (Auto) 11.8 % (0.0-7.3) H 09/30/17 06:10 Eos % (Auto) 3.2 % (0.0-4.3) 09/30/17 06:10 Baso % (Auto) 1.3 % (0.0-1.8) 09/30/17 06:10 Lymph # 1.0 K/mm3 (1.2-5.4) L 09/30/17 06:10 [place] # 0.3 K/mm3 (0.0-0.8) 09/30/17 06:10 Eos # 0.1 K/mm3 (0.0-0.4) 09/30/17 06:10 Baso # 0.0 K/mm3 (0.0-0.1) 09/30/17 06:10 Add Manual Diff Complete 09/27/17 11:27 Total Counted 100 09/27/17 11:27 Seg Neutrophils % 46.2 % (40.0-70.0) 09/30/17 06:10 Seg Neuts % (Manual) 81.0 % (40.0-70.0) H 09/27/17 11:27 Band Neutrophils % 1.0 % 09/27/17 11:27 Lymphocytes % (Manual) 13.0 % (13.4-35.0) L 09/27/17 11:27 Reactive Lymphs % (Man) 0 % 09/27/17 11:27 Monocytes % (Manual) 5.0 % (0.0-7.3) 09/27/17 11:27 Eosinophils % (Manual) 0 % (0.0-4.3) 09/27/17 11:27 Basophils % (Manual) 0 % (0.0-1.8) 09/27/17 11:27 Metamyelocytes % 0 % 09/27/17 11:27 Myelocytes % 0 % 09/27/17 11:27 Promyelocytes % 0 % 09/27/17 11:27 Blast Cells % 0 % 09/27/17 11:27 Nucleated RBC % Not Reportable 09/27/17 11:27 Seg Neutrophils # 1.2 K/mm3 (1.8-7.7) L 09/30/17 06:10 Seg Neutrophils # Man 2.3 K/mm3 (1.8-7.7) 09/27/17 11:27 Band Neutrophils # 0.0 K/mm3 09/27/17 11:27 Lymphocytes # (Manual) 0.4 K/mm3 (1.2-5.4) L 09/27/17 11:27 Abs React Lymphs (Man) 0.0 K/mm3 09/27/17 11:27 Monocytes # (Manual) 0.1 K/mm3 (0.0-0.8) 09/27/17 11:27 Eosinophils # (Manual) 0.0 K/mm3 (0.0-0.4) 09/27/17 11:27 Basophils # (Manual) 0.0 K/mm3 (0.0-0.1) 09/27/17 11:27 Metamyelocytes # 0.0 K/mm3 09/27/17 11:27 Myelocytes # 0.0 K/mm3 09/27/17 11:27 Promyelocytes # 0.0 K/mm3 09/27/17 11:27 Blast Cells # 0.0 K/mm3 09/27/17 11:27 WBC Morphology Not Reportable 09/27/17 11:27 Hypersegmented Neuts Not Reportable 09/27/17 11:27 Hyposegmented Neuts Not Reportable 09/27/17 11:27 Hypogranular Neuts Not Reportable 09/27/17 11:27 Smudge Cells Not Reportable 09/27/17 11:27 Toxic Granulation Not Reportable 09/27/17 11:27 Toxic Vacuolation Not Reportable 09/27/17 11:27 Dohle Bodies Not Reportable 09/27/17 11:27 Pelger-Huet Anomaly Not Reportable 09/27/17 11:27 Trent Rods Not Reportable 09/27/17 11:27 Platelet Estimate Consistent w auto 09/27/17 11:27 Clumped Platelets Not Reportable 09/27/17 11:27 Plt Clumps, EDTA Not Reportable 09/27/17 11:27 Large Platelets Not Reportable 09/27/17 11:27 Giant Platelets Not Reportable 09/27/17 11:27 Platelet Satelliting Not Reportable 09/27/17 11:27 Plt Morphology Comment Not Reportable 09/27/17 11:27 RBC Morphology Not Reportable 09/27/17 11:27 Dimorphic RBCs Not Reportable 09/27/17 11:27 Polychromasia Not Reportable 09/27/17 11:27 Hypochromasia Not Reportable 09/27/17 11:27 Poikilocytosis Not Reportable 09/27/17 11:27 Anisocytosis 1+ 09/27/17 11:27 Microcytosis Not Reportable 09/27/17 11:27 Macrocytosis Not Reportable 09/27/17 11:27 Spherocytes Not Reportable 09/27/17 11:27 Pappenheimer Bodies Not Reportable 09/27/17 11:27 Sickle Cells Not Reportable 09/27/17 11:27 Target Cells Not Reportable 09/27/17 11:27 Tear Drop Cells Not Reportable 09/27/17 11:27 Ovalocytes Not Reportable 09/27/17 11:27 Helmet Cells Not Reportable 09/27/17 11:27 [place] Bodies Not Reportable 09/27/17 11:27 [place] Rings Not Reportable 09/27/17 11:27 Ar Cells Not Reportable 09/27/17 11:27 Bite Cells Not Reportable 09/27/17 11:27 Crenated Cell Not Reportable 09/27/17 11:27 Elliptocytes Not Reportable 09/27/17 11:27 Acanthocytes (Spur) Not Reportable 09/27/17 11:27 Rouleaux Not Reportable 09/27/17 11:27 Hemoglobin C Crystals Not Reportable 09/27/17 11:27 Schistocytes Not Reportable 09/27/17 11:27 Malaria parasites Not Reportable 09/27/17 11:27 Krzysztof Bodies Not Reportable 09/27/17 11:27 Hem Pathologist Commnt No 09/27/17 11:27 PT 14.3 Sec. (12.2-14.9) 09/27/17 11:27 INR 1.06 (0.87-1.13) 09/27/17 11:27 APTT 28.8 Sec. (24.2-36.6) 09/27/17 11:27 VBG pH 7.382 (7.320-7.420) 09/27/17 11:27 Sodium 138 mmol/L (137-145) 09/30/17 06:10 Potassium 4.1 mmol/L (3.6-5.0) 09/30/17 06:10 Chloride 103.3 mmol/L (98-107) 09/30/17 06:10 Carbon Dioxide 25 mmol/L (22-30) 09/30/17 06:10 Anion Gap 14 mmol/L 09/30/17 06:10 BUN 7 mg/dL (9-20) L 09/30/17 06:10 Creatinine 0.7 mg/dL (0.8-1.5) L 09/30/17 06:10 Estimated GFR > 60 ml/min 09/30/17 06:10 BUN/Creatinine Ratio 10 % 09/30/17 06:10 Glucose 193 mg/dL (75-100) H 09/30/17 06:10 POC Glucose 193 (70-105) H 09/30/17 05:13 Hemoglobin A1c 11.6 % (4-6) H 09/27/17 16:18 Calcium 8.1 mg/dL (8.4-10.2) L 09/30/17 06:10 Phosphorus 3.10 mg/dL (2.5-4.5) D 09/29/17 05:27 Magnesium 1.50 mg/dL (1.7-2.3) L 09/29/17 05:27 Total Bilirubin 0.50 mg/dL (0.1-1.2) 09/30/17 06:10 AST 94 units/L (5-40) H 09/30/17 06:10 ALT 47 units/L (7-56) 09/30/17 06:10 Alkaline Phosphatase 75 units/L (35-129) 09/30/17 06:10 Total Creatine Kinase 73 units/L (55-170) 09/27/17 11:27 CK-MB (CK-2) 7.2 ng/mL (0.0-4.0) H 09/27/17 11:27 CK-MB (CK-2) Rel Index 9.8 (0-4) H 09/27/17 11:27 Troponin T 0.018 ng/mL (0.00-0.029) 09/27/17 11:27 Total Protein 5.5 g/dL (6.3-8.2) L 09/30/17 06:10 Albumin 2.4 g/dL (3.9-5) L 09/30/17 06:10 Albumin/Globulin Ratio 0.8 % 09/30/17 06:10 Urine Color Straw (Yellow) 09/27/17 11:40 Urine Turbidity Clear (Clear) 09/27/17 11:40 Urine pH 6.0 (5.0-7.0) 09/27/17 11:40 Ur Specific [place] 1.024 (1.003-1.030) 09/27/17 11:40 Urine Protein <15 mg/dl mg/dL (Negative) 09/27/17 11:40 Urine Glucose (UA) >=500 mg/dL (Negative) 09/27/17 11:40 Urine Ketones Neg mg/dL (Negative) 09/27/17 11:40 Urine Blood Neg (Negative) 09/27/17 11:40 Urine Nitrite Neg (Negative) 09/27/17 11:40 Urine Bilirubin Neg (Negative) 09/27/17 11:40 Urine Urobilinogen < 2.0 mg/dL (<2.0) 09/27/17 11:40 Ur Leukocyte Esterase Neg (Negative) 09/27/17 11:40 Urine WBC (Auto) < 1.0 /HPF (0.0-6.0) 09/27/17 11:40 Urine RBC (Auto) < 1.0 /HPF (0.0-6.0) 09/27/17 11:40 Urine Mucus Few /HPF 09/27/17 11:40 Urine Creatinine 8.9 mg/dL (0.1-20.0) 09/27/17 11:40 Urine Microalbumin < 1.2 mg/dL (0.1-34.0) 09/27/17 11:40 Microalb/Creat Ratio 134.8 ug/mg 09/27/17 11:40 <OSMEL STEELE - Last Filed: 09/30/17 19:43> History Interval history: I saw and evaluated the patient. I agree with the findings and the plan of care as documented in the Nurse Practitioner's~note, with the following corrections and additions. Patient seen and evaluated medical records reviewed Agree with the plan of care Additional assessment; Leukopenia; closely monitor, hematology consult Thrombocytopenia; no evidence of bleeding, closely monitor Patient was extensively evaluated by data integration architect , patient request consult Patient also has history of HIT, management per hematology Physical therapy occupational therapy Possible home health with home PT upon discharge:when patient is Medically stable Hospitalist Physical - Constitutional Vitals: Temp Pulse Resp BP Pulse Ox 98.0 F 89 20 127/72 96 09/30/17 15:09 09/30/17 15:09 09/30/17 15:09 09/30/17 15:09 09/30/17 15:09 Results - Labs CBC & Chem 7: 09/30/17 06:10 09/30/17 06:10 Labs: Laboratory Last Values WBC 2.7 K/mm3 (4.5-11.0) L 09/30/17 06:10 RBC 3.59 M/mm3 (3.65-5.03) L 09/30/17 06:10 Hgb 11.4 gm/dl (11.8-15.2) L 09/30/17 06:10 Hct 33.3 % (35.5-45.6) L 09/30/17 06:10 MCV 93 fl (84-94) 09/30/17 06:10 MCH 32 pg (28-32) 09/30/17 06:10 MCHC 34 % (32-34) 09/30/17 06:10 RDW 14.0 % (13.2-15.2) 09/30/17 06:10 Plt Count 67 K/mm3 (140-440) L 09/30/17 06:10 Lymph % (Auto) 37.5 % (13.4-35.0) H 09/30/17 06:10 [place] % (Auto) 11.8 % (0.0-7.3) H 09/30/17 06:10 Eos % (Auto) 3.2 % (0.0-4.3) 09/30/17 06:10 Baso % (Auto) 1.3 % (0.0-1.8) 09/30/17 06:10 Lymph # 1.0 K/mm3 (1.2-5.4) L 09/30/17 06:10 [place] # 0.3 K/mm3 (0.0-0.8) 09/30/17 06:10 Eos # 0.1 K/mm3 (0.0-0.4) 09/30/17 06:10 Baso # 0.0 K/mm3 (0.0-0.1) 09/30/17 06:10 Add Manual Diff Complete 09/27/17 11:27 Total Counted 100 09/27/17 11:27 Seg Neutrophils % 46.2 % (40.0-70.0) 09/30/17 06:10 Seg Neuts % (Manual) 81.0 % (40.0-70.0) H 09/27/17 11:27 Band Neutrophils % 1.0 % 09/27/17 11:27 Lymphocytes % (Manual) 13.0 % (13.4-35.0) L 09/27/17 11:27 Reactive Lymphs % (Man) 0 % 09/27/17 11:27 Monocytes % (Manual) 5.0 % (0.0-7.3) 09/27/17 11:27 Eosinophils % (Manual) 0 % (0.0-4.3) 09/27/17 11:27 Basophils % (Manual) 0 % (0.0-1.8) 09/27/17 11:27 Metamyelocytes % 0 % 09/27/17 11:27 Myelocytes % 0 % 09/27/17 11:27 Promyelocytes % 0 % 09/27/17 11:27 Blast Cells % 0 % 09/27/17 11:27 Nucleated RBC % Not Reportable 09/27/17 11:27 Seg Neutrophils # 1.2 K/mm3 (1.8-7.7) L 09/30/17 06:10 Seg Neutrophils # Man 2.3 K/mm3 (1.8-7.7) 09/27/17 11:27 Band Neutrophils # 0.0 K/mm3 09/27/17 11:27 Lymphocytes # (Manual) 0.4 K/mm3 (1.2-5.4) L 09/27/17 11:27 Abs React Lymphs (Man) 0.0 K/mm3 09/27/17 11:27 Monocytes # (Manual) 0.1 K/mm3 (0.0-0.8) 09/27/17 11:27 Eosinophils # (Manual) 0.0 K/mm3 (0.0-0.4) 09/27/17 11:27 Basophils # (Manual) 0.0 K/mm3 (0.0-0.1) 09/27/17 11:27 Metamyelocytes # 0.0 K/mm3 09/27/17 11:27 Myelocytes # 0.0 K/mm3 09/27/17 11:27 Promyelocytes # 0.0 K/mm3 09/27/17 11:27 Blast Cells # 0.0 K/mm3 09/27/17 11:27 WBC Morphology Not Reportable 09/27/17 11:27 Hypersegmented Neuts Not Reportable 09/27/17 11:27 Hyposegmented Neuts Not Reportable 09/27/17 11:27 Hypogranular Neuts Not Reportable 09/27/17 11:27 Smudge Cells Not Reportable 09/27/17 11:27 Toxic Granulation Not Reportable 09/27/17 11:27 Toxic Vacuolation Not Reportable 09/27/17 11:27 Dohle Bodies Not Reportable 09/27/17 11:27 Pelger-Huet Anomaly Not Reportable 09/27/17 11:27 Trent Rods Not Reportable 09/27/17 11:27 Platelet Estimate Consistent w auto 09/27/17 11:27 Clumped Platelets Not Reportable 09/27/17 11:27 Plt Clumps, EDTA Not Reportable 09/27/17 11:27 Large Platelets Not Reportable 09/27/17 11:27 Giant Platelets Not Reportable 09/27/17 11:27 Platelet Satelliting Not Reportable 09/27/17 11:27 Plt Morphology Comment Not Reportable 09/27/17 11:27 RBC Morphology Not Reportable 09/27/17 11:27 Dimorphic RBCs Not Reportable 09/27/17 11:27 Polychromasia Not Reportable 09/27/17 11:27 Hypochromasia Not Reportable 09/27/17 11:27 Poikilocytosis Not Reportable 09/27/17 11:27 Anisocytosis 1+ 09/27/17 11:27 Microcytosis Not Reportable 09/27/17 11:27 Macrocytosis Not Reportable 09/27/17 11:27 Spherocytes Not Reportable 09/27/17 11:27 Pappenheimer Bodies Not Reportable 09/27/17 11:27 Sickle Cells Not Reportable 09/27/17 11:27 Target Cells Not Reportable 09/27/17 11:27 Tear Drop Cells Not Reportable 09/27/17 11:27 Ovalocytes Not Reportable 09/27/17 11:27 Helmet Cells Not Reportable 09/27/17 11:27 [place] Bodies Not Reportable 09/27/17 11:27 [place] Rings Not Reportable 09/27/17 11:27 Ar Cells Not Reportable 09/27/17 11:27 Bite Cells Not Reportable 09/27/17 11:27 Crenated Cell Not Reportable 09/27/17 11:27 Elliptocytes Not Reportable 09/27/17 11:27 Acanthocytes (Spur) Not Reportable 09/27/17 11:27 Rouleaux Not Reportable 09/27/17 11:27 Hemoglobin C Crystals Not Reportable 09/27/17 11:27 Schistocytes Not Reportable 09/27/17 11:27 Malaria parasites Not Reportable 09/27/17 11:27 Krzysztof Bodies Not Reportable 09/27/17 11:27 Hem Pathologist Commnt No 09/27/17 11:27 PT 14.3 Sec. (12.2-14.9) 09/27/17 11:27 INR 1.06 (0.87-1.13) 09/27/17 11:27 APTT 28.8 Sec. (24.2-36.6) 09/27/17 11:27 POC ABG pH 7.418 (7.35-7.45) 09/30/17 11:26 POC ABG pCO2 37.3 (35-45) 09/30/17 11:26 POC ABG pO2 70 (80-105) L 09/30/17 11:26 POC ABG HCO3 24.1 09/30/17 11:26 POC ABG Total CO2 25 09/30/17 11:26 POC ABG O2 Sat 94 09/30/17 11:26 POC ABG Base Excess 0 09/30/17 11:26 VBG pH 7.382 (7.320-7.420) 09/27/17 11:27 FiO2 21 % 09/30/17 11:26 Sodium 138 mmol/L (137-145) 09/30/17 06:10 Potassium 4.1 mmol/L (3.6-5.0) 09/30/17 06:10 Chloride 103.3 mmol/L (98-107) 09/30/17 06:10 Carbon Dioxide 25 mmol/L (22-30) 09/30/17 06:10 Anion Gap 14 mmol/L 09/30/17 06:10 BUN 7 mg/dL (9-20) L 09/30/17 06:10 Creatinine 0.7 mg/dL (0.8-1.5) L 09/30/17 06:10 Estimated GFR > 60 ml/min 09/30/17 06:10 BUN/Creatinine Ratio 10 % 09/30/17 06:10 Glucose 193 mg/dL (75-100) H 09/30/17 06:10 POC Glucose 223 (70-105) H 09/30/17 16:51 Hemoglobin A1c 11.6 % (4-6) H 09/27/17 16:18 Calcium 8.1 mg/dL (8.4-10.2) L 09/30/17 06:10 Phosphorus 3.10 mg/dL (2.5-4.5) D 09/29/17 05:27 Magnesium 1.60 mg/dL (1.7-2.3) L 09/30/17 09:29 Total Bilirubin 0.50 mg/dL (0.1-1.2) 09/30/17 06:10 AST 94 units/L (5-40) H 09/30/17 06:10 ALT 47 units/L (7-56) 09/30/17 06:10 Alkaline Phosphatase 75 units/L (35-129) 09/30/17 06:10 Total Creatine Kinase 73 units/L (55-170) 09/27/17 11:27 CK-MB (CK-2) 7.2 ng/mL (0.0-4.0) H 09/27/17 11:27 CK-MB (CK-2) Rel Index 9.8 (0-4) H 09/27/17 11:27 Troponin T 0.018 ng/mL (0.00-0.029) 09/27/17 11:27 Total Protein 5.5 g/dL (6.3-8.2) L 09/30/17 06:10 Albumin 2.4 g/dL (3.9-5) L 09/30/17 06:10 Albumin/Globulin Ratio 0.8 % 09/30/17 06:10 Urine Color Straw (Yellow) 09/27/17 11:40 Urine Turbidity Clear (Clear) 09/27/17 11:40 Urine pH 6.0 (5.0-7.0) 09/27/17 11:40 Ur Specific [place] 1.024 (1.003-1.030) 09/27/17 11:40 Urine Protein <15 mg/dl mg/dL (Negative) 09/27/17 11:40 Urine Glucose (UA) >=500 mg/dL (Negative) 09/27/17 11:40 Urine Ketones Neg mg/dL (Negative) 09/27/17 11:40 Urine Blood Neg (Negative) 09/27/17 11:40 Urine Nitrite Neg (Negative) 09/27/17 11:40 Urine Bilirubin Neg (Negative) 09/27/17 11:40 Urine Urobilinogen < 2.0 mg/dL (<2.0) 09/27/17 11:40 Ur Leukocyte Esterase Neg (Negative) 09/27/17 11:40 Urine WBC (Auto) < 1.0 /HPF (0.0-6.0) 09/27/17 11:40 Urine RBC (Auto) < 1.0 /HPF (0.0-6.0) 09/27/17 11:40 Urine Mucus Few /HPF 09/27/17 11:40 Urine Creatinine 8.9 mg/dL (0.1-20.0) 09/27/17 11:40 Urine Microalbumin < 1.2 mg/dL (0.1-34.0) 09/27/17 11:40 Microalb/Creat Ratio 134.8 ug/mg 09/27/17 11:40
[2017-09-30] MEDS: PROTONIX PO SCH (10:28)
[2017-09-30] MEDS: FOLVITE PO SCH (10:28)
[2017-09-30] MEDS: COREG PO SCH ×2 (10:28→22:54)
[2017-09-30] MEDS: LEVAQUIN PO SCH (10:28)
[2017-09-30] MEDS: ZESTRIL PO SCH (10:29)
[2017-09-30] MEDS: BABY ASPIRIN PO SCH (10:29)
[2017-09-30] MEDS: HABITROL TD SCH (10:32)
[2017-09-30 11:29] LABS: ISTAT Base Excess 0; ISTAT DEVICE 0; ISTAT HCO3 24.1; ISTAT PCO2 37.3 (35-45); ISTAT PH 7.418 (7.35-7.45); ISTAT PO2 70 (80-105); ISTAT SO2 94; ISTAT TCO2 25
--- NOTE | 2017-09-30 16:59 | Progress Note ---
Assessment and Plan Patient resting at this time on room air. No acute respiratory distress. O2 saturation 93%. - Patient Problems (1) Tobacco abuse Current Visit: No Status: Chronic Plan to address problem: Counselled him to stop smoking. (2) Dilated cardiomyopathy Current Visit: Yes Status: Acute Plan to address problem: Management as per cardiology. 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 (4) Hypertension Current Visit: Yes Status: Chronic Qualifiers: Plan to address problem: Management as per primary care. (5) Insulin dependent diabetes mellitus Current Visit: Yes Status: Chronic Plan to address problem: Management as per primary care. (6) Pulmonary asbestosis Current Visit: Yes Status: Acute Plan to address problem: CAT scan of chest bilateral pleural plaques consistent with previous asbestosis exposure. Subjective Date of service: 09/30/17 Interval history: Patient resting at this time on room air. No acute respiratory distress. O2 saturation 93%. Objective Vital Signs - 12hr 09/30/17 09/30/17 09/30/17 07:37 10:28 10:29 Temperature 98.5 F Pulse Rate 72 Respiratory 22 Rate Blood Pressure 126/79 126/79 126/79 O2 Sat by Pulse Oximetry 09/30/17 15:09 Temperature 98.0 F Pulse Rate 89 Respiratory 20 Rate Blood Pressure 127/72 O2 Sat by Pulse 96 Oximetry Constitutional: no acute distress, alert, other (right suprorbital swelling with sutures in place) Eyes: non-icteric ENT: oropharynx dry Neck: supple, no lymphadenopathy, no JVD Effort: normal Ascultation: Bilateral: diminished breath sounds Cardiovascular: regular rate and rhythm, murmur noted (S1,S2, no murmurs, gallops or rubs) Gastrointestinal: normoactive bowel sounds, soft, non-tender, non-distended, other (no organomegally) Integumentary: normal Extremities: no cyanosis, no edema, pink and warm, pulses normal, no ischemia or petechiae Neurologic: normal mental status, non-focal exam, pupils equal and round, CN II- XII normal, motor strength normal and Psychiatric: mood appropriate, affect normal CBC and BMP: 09/30/17 06:10 09/30/17 06:10 ABG, PT/INR, D-dimer: ABG POC ABG pH 7.418 (7.35-7.45) 09/30/17 11:26 POC ABG pCO2 37.3 (35-45) 09/30/17 11:26 POC ABG pO2 70 (80-105) L 09/30/17 11:26 POC ABG HCO3 24.1 09/30/17 11:26 POC ABG Total CO2 25 09/30/17 11:26 POC ABG O2 Sat 94 09/30/17 11:26 PT/INR, D-dimer PT 14.3 Sec. (12.2-14.9) 09/27/17 11:27 INR 1.06 (0.87-1.13) 09/27/17 11:27 Abnormal lab findings: Abnormal Labs 09/27/17 09/27/17 09/27/17 11:27 11:27 11:27 WBC 2.9 L RBC Hgb Hct MCV 96 H MCHC Plt Count 99 L Lymph % (Auto) [place] % (Auto) Lymph # Seg Neuts % (Manual) 81.0 H Lymphocytes % (Manual) 13.0 L Seg Neutrophils # Lymphocytes # (Manual) 0.4 L POC ABG pO2 Sodium 124 L Potassium Chloride 83.1 L Carbon Dioxide 18 L BUN 5 L Creatinine Glucose 990 H* POC Glucose Hemoglobin A1c Calcium Phosphorus Magnesium 1.50 L AST CK-MB (CK-2) CK-MB (CK-2) Rel Index Total Protein Albumin 09/27/17 09/27/17 09/27/17 11:27 11:32 13:14 WBC RBC Hgb Hct MCV MCHC Plt Count Lymph % (Auto) [place] % (Auto) Lymph # Seg Neuts % (Manual) Lymphocytes % (Manual) Seg Neutrophils # Lymphocytes # (Manual) POC ABG pO2 Sodium Potassium Chloride Carbon Dioxide BUN Creatinine Glucose POC Glucose > 500 H > 500 H Hemoglobin A1c Calcium Phosphorus Magnesium AST CK-MB (CK-2) 7.2 H CK-MB (CK-2) Rel Index 9.8 H Total Protein Albumin 09/27/17 09/27/17 09/27/17 14:32 16:18 16:18 WBC RBC Hgb Hct MCV MCHC Plt Count Lymph % (Auto) [place] % (Auto) Lymph # Seg Neuts % (Manual) Lymphocytes % (Manual) Seg Neutrophils # Lymphocytes # (Manual) POC ABG pO2 Sodium 126 L Potassium Chloride 86.0 L Carbon Dioxide BUN 5 L Creatinine Glucose 697 H* POC Glucose Hemoglobin A1c 11.6 H Calcium Phosphorus 2.30 L D Magnesium AST CK-MB (CK-2) CK-MB (CK-2) Rel Index Total Protein Albumin 09/27/17 09/27/17 09/27/17 16:18 17:06 17:49 WBC RBC Hgb Hct MCV MCHC Plt Count Lymph % (Auto) [place] % (Auto) Lymph # Seg Neuts % (Manual) Lymphocytes % (Manual) Seg Neutrophils # Lymphocytes # (Manual) POC ABG pO2 Sodium 129 L 132 L Potassium 3.5 L D Chloride 89.1 L 92.5 L Carbon Dioxide BUN 4 L 4 L Creatinine Glucose 448 H 312 H POC Glucose 370 H Hemoglobin A1c Calcium Phosphorus Magnesium AST CK-MB (CK-2) CK-MB (CK-2) Rel Index Total Protein Albumin 09/27/17 09/27/17 09/27/17 18:24 19:43 19:44 WBC RBC Hgb Hct MCV MCHC Plt Count Lymph % (Auto) [place] % (Auto) Lymph # Seg Neuts % (Manual) Lymphocytes % (Manual) Seg Neutrophils # Lymphocytes # (Manual) POC ABG pO2 Sodium 133 L Potassium 3.3 L Chloride 93.8 L Carbon Dioxide BUN 4 L Creatinine 0.7 L Glucose 215 H POC Glucose 292 H 227 H Hemoglobin A1c Calcium Phosphorus Magnesium AST CK-MB (CK-2) CK-MB (CK-2) Rel Index Total Protein Albumin 09/27/17 09/27/17 09/27/17 20:45 21:44 21:47 WBC RBC Hgb Hct MCV MCHC Plt Count Lymph % (Auto) [place] % (Auto) Lymph # Seg Neuts % (Manual) Lymphocytes % (Manual) Seg Neutrophils # Lymphocytes # (Manual) POC ABG pO2 Sodium 131 L Potassium 3.4 L Chloride 94.2 L Carbon Dioxide BUN 4 L Creatinine Glucose 185 H POC Glucose 218 H 197 H Hemoglobin A1c Calcium 8.3 L Phosphorus Magnesium AST CK-MB (CK-2) CK-MB (CK-2) Rel Index Total Protein Albumin 09/27/17 09/27/17 09/28/17 23:20 23:44 01:12 WBC RBC Hgb Hct MCV MCHC Plt Count Lymph % (Auto) [place] % (Auto) Lymph # Seg Neuts % (Manual) Lymphocytes % (Manual) Seg Neutrophils # Lymphocytes # (Manual) POC ABG pO2 Sodium 134 L Potassium 3.5 L Chloride 93.8 L Carbon Dioxide BUN 4 L Creatinine Glucose 142 H POC Glucose 136 H 166 H Hemoglobin A1c Calcium Phosphorus Magnesium AST CK-MB (CK-2) CK-MB (CK-2) Rel Index Total Protein Albumin 09/28/17 09/28/17 09/28/17 02:34 04:41 05:39 WBC 3.8 L RBC 3.58 L Hgb 11.5 L Hct 32.9 L D MCV MCHC 35 H Plt Count 81 L Lymph % (Auto) 39.2 H [place] % (Auto) 8.1 H Lymph # Seg Neuts % (Manual) Lymphocytes % (Manual) Seg Neutrophils # Lymphocytes # (Manual) POC ABG pO2 Sodium Potassium Chloride Carbon Dioxide BUN Creatinine Glucose POC Glucose 178 H 141 H Hemoglobin A1c Calcium Phosphorus Magnesium AST CK-MB (CK-2) CK-MB (CK-2) Rel Index Total Protein Albumin 09/28/17 09/28/17 09/28/17 05:39 06:35 07:24 WBC RBC Hgb Hct MCV MCHC Plt Count Lymph % (Auto) [place] % (Auto) Lymph # Seg Neuts % (Manual) Lymphocytes % (Manual) Seg Neutrophils # Lymphocytes # (Manual) POC ABG pO2 Sodium 136 L Potassium 3.3 L Chloride Carbon Dioxide BUN 6 L 6 L Creatinine Glucose 148 H 141 H POC Glucose 167 H Hemoglobin A1c Calcium 8.2 L Phosphorus Magnesium AST 106 H CK-MB (CK-2) CK-MB (CK-2) Rel Index Total Protein 5.8 L Albumin 2.6 L 09/28/17 09/28/17 09/28/17 07:50 08:55 10:07 WBC RBC Hgb Hct MCV MCHC Plt Count Lymph % (Auto) [place] % (Auto) Lymph # Seg Neuts % (Manual) Lymphocytes % (Manual) Seg Neutrophils # Lymphocytes # (Manual) POC ABG pO2 Sodium Potassium Chloride Carbon Dioxide BUN Creatinine Glucose POC Glucose 152 H 166 H 177 H Hemoglobin A1c Calcium Phosphorus Magnesium AST CK-MB (CK-2) CK-MB (CK-2) Rel Index Total Protein Albumin 09/28/17 09/28/17 09/28/17 10:53 12:47 15:55 WBC RBC Hgb Hct MCV MCHC Plt Count Lymph % (Auto) [place] % (Auto) Lymph # Seg Neuts % (Manual) Lymphocytes % (Manual) Seg Neutrophils # Lymphocytes # (Manual) POC ABG pO2 Sodium 133 L Potassium Chloride 95.8 L Carbon Dioxide BUN 7 L Creatinine Glucose 333 H POC Glucose 166 H 306 H Hemoglobin A1c Calcium 8.2 L Phosphorus Magnesium AST CK-MB (CK-2) CK-MB (CK-2) Rel Index Total Protein Albumin 09/28/17 09/28/17 09/29/17 16:11 22:06 05:27 WBC 2.7 L RBC Hgb 11.5 L Hct 33.7 L MCV MCHC Plt Count 70 L Lymph % (Auto) [place] % (Auto) 8.7 H Lymph # 0.9 L Seg Neuts % (Manual) Lymphocytes % (Manual) Seg Neutrophils # 1.5 L Lymphocytes # (Manual) POC ABG pO2 Sodium 132 L Potassium Chloride 95.0 L Carbon Dioxide BUN 8 L Creatinine Glucose 336 H POC Glucose 378 H Hemoglobin A1c Calcium 8.0 L Phosphorus Magnesium AST CK-MB (CK-2) CK-MB (CK-2) Rel Index Total Protein Albumin 09/29/17 09/29/17 09/29/17 05:27 05:33 11:33 WBC RBC Hgb Hct MCV MCHC Plt Count Lymph % (Auto) [place] % (Auto) Lymph # Seg Neuts % (Manual) Lymphocytes % (Manual) Seg Neutrophils # Lymphocytes # (Manual) POC ABG pO2 Sodium Potassium Chloride Carbon Dioxide BUN Creatinine Glucose POC Glucose 302 H 282 H Hemoglobin A1c Calcium Phosphorus Magnesium 1.50 L AST CK-MB (CK-2) CK-MB (CK-2) Rel Index Total Protein Albumin 09/29/17 09/29/17 09/30/17 16:18 21:06 05:13 WBC RBC Hgb Hct MCV MCHC Plt Count Lymph % (Auto) [place] % (Auto) Lymph # Seg Neuts % (Manual) Lymphocytes % (Manual) Seg Neutrophils # Lymphocytes # (Manual) POC ABG pO2 Sodium Potassium Chloride Carbon Dioxide BUN Creatinine Glucose POC Glucose 169 H 261 H 193 H Hemoglobin A1c Calcium Phosphorus Magnesium AST CK-MB (CK-2) CK-MB (CK-2) Rel Index Total Protein Albumin 09/30/17 09/30/17 09/30/17 06:10 06:10 09:29 WBC 2.7 L RBC 3.59 L Hgb 11.4 L Hct 33.3 L MCV MCHC Plt Count 67 L Lymph % (Auto) 37.5 H [place] % (Auto) 11.8 H Lymph # 1.0 L Seg Neuts % (Manual) Lymphocytes % (Manual) Seg Neutrophils # 1.2 L Lymphocytes # (Manual) POC ABG pO2 Sodium Potassium Chloride Carbon Dioxide BUN 7 L Creatinine 0.7 L Glucose 193 H POC Glucose Hemoglobin A1c Calcium 8.1 L Phosphorus Magnesium 1.60 L AST 94 H CK-MB (CK-2) CK-MB (CK-2) Rel Index Total Protein 5.5 L Albumin 2.4 L 09/30/17 09/30/17 11:26 11:27 WBC RBC Hgb Hct MCV MCHC Plt Count Lymph % (Auto) [place] % (Auto) Lymph # Seg Neuts % (Manual) Lymphocytes % (Manual) Seg Neutrophils # Lymphocytes # (Manual) POC ABG pO2 70 L Sodium Potassium Chloride Carbon Dioxide BUN Creatinine Glucose POC Glucose 160 H Hemoglobin A1c Calcium Phosphorus Magnesium AST CK-MB (CK-2) CK-MB (CK-2) Rel Index Total Protein Albumin
[2017-09-30] MEDS: ZOFRAN IV PRN (18:27)
--- NOTE | 2017-09-30 19:41 | Consultation ---
History of Present Illness - Reason for Consult Consult date: 09/30/17 pancytopenia Requesting physician: HARINDER KU - History of Present Illness Thank you for this consult, patient seen/examined, records reviewed.He denies any known infection, but record indicates hx of hep c., which may infact explain his cytopenias.he may benefit from replacement transfusion.other possible etiology, could be alcohol. Past History Past Medical History: seizures Social history: smoking (1PPD for 25years, 2PPD for about 20 years prior to that ) Medications and Allergies Allergies Allergy/AdvReac Type Severity Reaction Status Date / Time heparin Allergy Severe THROMBOCYTO Verified 09/27/17 11:14 PENIA Home Medications Medication Instructions Recorded Confirmed Last Taken Type Multivitamins Liq [Multiple 5 ml PO QDAY oral.liqd 12/29/16 09/30/17 09/28/17 Rx Vitamin Liq (Theragran)] Thiamine [Vitamin B-1] 100 mg PO QDAY tablet 12/29/16 09/30/17 09/28/17 Rx 100mg ALPRAZolam [Xanax TAB] 1 mg PO QHS PRN #30 tablet 01/29/17 09/30/17 09/28/17 Rx Aspirin [Aspirin BABY CHEW TAB] 81 mg PO QDAY #30 tab.chew 01/29/17 09/30/17 Rx Carvedilol [Coreg] 3.125 mg PO BID #60 tablet 01/29/17 09/30/17 09/28/17 Rx Doxepin [SINEquan] 100 mg PO QHS capsule 01/29/17 09/30/17 09/28/17 Rx Folic Acid [Folvite] 1 mg PO QDAY #30 tablet 01/29/17 09/30/17 Unknown Rx HYDROcodone/APAP 10-325 [[place] 1 each PO Q4H PRN #45 tablet 01/29/17 09/30/17 Unknown Rx 10-325 mg TAB] Hypromellose [Isopto Tears 0.5%] 2 drops OU Q4H PRN #1 bottle 01/29/17 09/30/17 09/28/17 Rx Insulin Detemir [Levemir] 15 units SUB-Q DAILY 30 Days units 04/20/17 12/20/17 12/18/17 Rx Lisinopril [Zestril TAB] 2.5 mg PO QDAY #15 tablet 01/29/17 09/30/17 09/28/17 Rx Pantoprazole [Protonix TAB] 20 mg PO QDAY #30 tablet. 01/29/17 09/30/17 Rx Sevelamer Carbonate [Renvela] 1,600 mg PO TIDWM #180 tablet 01/29/17 09/30/17 Unknown Rx Simvastatin [Zocor TAB] 20 mg PO QHS #30 tablet 01/29/17 09/30/17 09/28/17 Rx Warfarin [Coumadin] 2 mg PO DAILY@1700 #10 tablet 01/29/17 09/30/17 Unknown Rx Active Meds: Active Medications Acetaminophen (Tylenol) 650 mg PO Q4H PRN PRN Reason: Pain MILD(1-3)/Fever >100.5/VALENTINO Alprazolam (Xanax) 1 mg PO QHS PRN PRN Reason: Anxiety Last Admin: 09/29/17 21:15 Dose: 1 mg Artificial Tears (Isopto Tears 0.5%) 2 drops OU Q4H PRN PRN Reason: Dry Eye(s) Aspirin (Baby Aspirin) 81 mg PO QDAY [facility] Last Admin: 09/30/17 10:29 Dose: 81 mg Bisacodyl (Dulcolax) 10 mg MD QDAY PRN PRN Reason: Constipation unrelieved by MOM Carvedilol (Coreg) 3.125 mg PO BID [facility] Last Admin: 09/30/17 10:28 Dose: 3.125 mg Dextrose (D50w (25gm) Syringe) 50 ml IV PRN PRN PRN Reason: Hypoglycemia Doxepin HCl (Sinequan) 100 mg PO QHS [facility] Last Admin: 09/29/17 21:38 Dose: 100 mg Folic Acid (Folvite) 1 mg PO QDAY [facility] Last Admin: 09/30/17 10:28 Dose: 1 mg Sodium Chloride (Nacl 0.9% 1000 Ml) 1,000 mls @ 100 mls/hr IV DIRECT [facility] Last Admin: 09/30/17 17:57 Dose: 100 mls/hr Insulin Aspart (Novolog) 0 units SUB-Q ACHS RENITA PRN Reason: Protocol Last Admin: 09/30/17 17:51 Dose: 3 units Insulin Aspart (Novolog) 10 units SUB-Q AC [facility] Last Admin: 09/30/17 17:51 Dose: 10 units Insulin Detemir (Levemir) 17 units SUB-Q HS [facility] Last Admin: 09/29/17 21:16 Dose: 17 units Levofloxacin (Levaquin) 750 mg PO DAILY [facility] Last Admin: 09/30/17 10:28 Dose: 750 mg Lisinopril (Zestril) 2.5 mg PO QDAY [facility] Last Admin: 09/30/17 10:29 Dose: 2.5 mg Lorazepam (Ativan) 1 mg IV Q3H PRN PRN Reason: Agitation Last Admin: 09/27/17 23:32 Dose: 1 mg Magnesium Hydroxide (Milk Of Magnesia) 30 ml PO Q4H PRN PRN Reason: Constipation Nicotine (Habitrol) 14 mg TD QDAY [facility] Last Admin: 09/30/17 10:32 Dose: 14 mg Ondansetron HCl (Zofran) 4 mg IV Q8H PRN PRN Reason: N/V unrelieved by Reglan Last Admin: 09/30/17 18:27 Dose: 4 mg Oxycodone/Acetaminophen (Percocet 5/325) 1 tab PO Q6H PRN PRN Reason: Pain, Moderate (4-6) Last Admin: 09/30/17 18:26 Dose: 1 tab Pantoprazole Sodium (Protonix) 20 mg PO QDAY [facility] Last Admin: 09/30/17 10:28 Dose: 20 mg Pravastatin Sodium (Pravachol) 40 mg PO QHS [facility] Last Admin: 09/29/17 21:14 Dose: 40 mg Sevelamer Carbonate (Renvela) 1,600 mg PO TIDWM [facility] Last Admin: 09/30/17 17:52 Dose: 1,600 mg Exam - Constitutional Vitals: Temp Pulse Resp BP Pulse Ox 98.0 F 89 20 127/72 96 09/30/17 15:09 09/30/17 15:09 09/30/17 15:09 09/30/17 15:09 09/30/17 15:09 General appearance: Present: mild distress - EENT Eyes: Present: PERRL ENT: hearing intact, clear oral mucosa - Neck Neck: Present: supple, normal ROM - Respiratory Respiratory effort: normal Respiratory: bilateral: CTA - Cardiovascular Heart Sounds: Present: S1 & S2. Absent: rub, click - Extremities Extremities: pulses symmetrical, No edema Peripheral Pulses: within normal limits - Abdominal General gastrointestinal: Present: soft, non-tender, non-distended, normal bowel sounds Male genitourinary: Present: deferred - Integumentary Integumentary: Present: clear, warm, dry - Musculoskeletal Musculoskeletal: gait normal, strength equal bilaterally - Psychiatric Psychiatric: appropriate mood/affect, intact judgment & insight - Neurologic Neurologic: CNII-XII intact, moves all extremities Results - Labs CBC & Chem 7: 09/30/17 06:10 09/30/17 06:10 Labs: Abnormal lab results 09/29/17 09/30/17 09/30/17 Range/Units 21:06 05:13 06:10 WBC 2.7 L (4.5-11.0) K/mm3 RBC 3.59 L (3.65-5.03) M/mm3 Hgb 11.4 L (11.8-15.2) gm/dl Hct 33.3 L (35.5-45.6) % Plt Count 67 L (140-440) K/mm3 Lymph % (Auto) 37.5 H (13.4-35.0) % [place] % (Auto) 11.8 H (0.0-7.3) % Lymph # 1.0 L (1.2-5.4) K/mm3 Seg Neutrophils # 1.2 L (1.8-7.7) K/mm3 POC ABG pO2 (80-105) BUN (9-20) mg/dL Creatinine (0.8-1.5) mg/dL Glucose (75-100) mg/dL POC Glucose 261 H 193 H (70-105) Calcium (8.4-10.2) mg/dL Magnesium (1.7-2.3) mg/dL AST (5-40) units/L Total Protein (6.3-8.2) g/dL Albumin (3.9-5) g/dL 09/30/17 09/30/17 09/30/17 Range/Units 06:10 09:29 11:26 WBC (4.5-11.0) K/mm3 RBC (3.65-5.03) M/mm3 Hgb (11.8-15.2) gm/dl Hct (35.5-45.6) % Plt Count (140-440) K/mm3 Lymph % (Auto) (13.4-35.0) % [place] % (Auto) (0.0-7.3) % Lymph # (1.2-5.4) K/mm3 Seg Neutrophils # (1.8-7.7) K/mm3 POC ABG pO2 70 L (80-105) BUN 7 L (9-20) mg/dL Creatinine 0.7 L (0.8-1.5) mg/dL Glucose 193 H (75-100) mg/dL POC Glucose (70-105) Calcium 8.1 L (8.4-10.2) mg/dL Magnesium 1.60 L (1.7-2.3) mg/dL AST 94 H (5-40) units/L Total Protein 5.5 L (6.3-8.2) g/dL Albumin 2.4 L (3.9-5) g/dL 09/30/17 09/30/17 Range/Units 11:27 16:51 WBC (4.5-11.0) K/mm3 RBC (3.65-5.03) M/mm3 Hgb (11.8-15.2) gm/dl Hct (35.5-45.6) % Plt Count (140-440) K/mm3 Lymph % (Auto) (13.4-35.0) % [place] % (Auto) (0.0-7.3) % Lymph # (1.2-5.4) K/mm3 Seg Neutrophils # (1.8-7.7) K/mm3 POC ABG pO2 (80-105) BUN (9-20) mg/dL Creatinine (0.8-1.5) mg/dL Glucose (75-100) mg/dL POC Glucose 160 H 223 H (70-105) Calcium (8.4-10.2) mg/dL Magnesium (1.7-2.3) mg/dL AST (5-40) units/L Total Protein (6.3-8.2) g/dL Albumin (3.9-5) g/dL Assessment and Plan - Patient Problems (1) Dilated cardiomyopathy Current Visit: Yes Status: Acute (2) Hepatitis C Current Visit: Yes Status: Acute Plan to address problem: continue to monitor, see labs, w/up. (3) Pancytopenia Current Visit: Yes Status: Acute Plan to address problem: see above.
[2017-09-30] MEDS: MAG-OX PO SCH (22:55)
[2017-09-30] MEDS: SINEquan PO SCH (22:55)
[2017-09-30] MEDS: PRAVACHOL PO SCH (22:55)
[2017-09-30] MEDS: LEVEMIR SUB-Q SCH (22:56)
[2017-10-01] MEDS: PERCOCET 5/325 PO PRN ×3 (00:28→15:15)
[2017-10-01] MEDS: NACL 0.9% 1000 ML 1,000 ML IV SCH (07:47)
[2017-10-01] MEDS: NOVOLOG SUB-Q SCH ×6 (08:17→17:26)
[2017-10-01] MEDS: RENVELA PO SCH ×3 (08:19→17:26)
[2017-10-01] MEDS: COREG PO SCH (10:38)
[2017-10-01] MEDS: ZESTRIL PO SCH (10:39)
[2017-10-01] MEDS: PROTONIX PO SCH (10:41)
[2017-10-01] MEDS: LEVAQUIN PO SCH (10:41)
[2017-10-01] MEDS: HABITROL TD SCH (10:42)
[2017-10-01] MEDS: FOLVITE PO SCH (10:42)
[2017-10-01] MEDS: BABY ASPIRIN PO SCH (10:42)
[2017-10-01] MEDS: MAG-OX PO SCH (10:58)
[2017-10-01 15:53] VITALS: BP 125/77
--- NOTE | 2017-10-01 16:08 | Progress Note ---
Assessment and Plan Assessment and plan: 62-year-old male with a past medical history of CHF, diabetes, CAD with 7 stents , and hepatitis C presents to the hospital with high blood glucose noted upon EMS arrival. Patient states he started having involuntary spasms of his right hand that then spread to his whole right arm. Symptoms are intermittent and uncontrollable. Denies any other body spasms. 3 days ago patient tripped and fell sustaining a laceration to his right eye brow. Patient did not seek medical care at that time and has a healing wound to the right brow. He denies LOC or persistent headache. Patient is on Coumadin for unknown reason (denies afib, pe,dvt,cva). Patient thinks he might have missed his single dose of insulin yesterday but apparently took a dose this morning prior to arrival. Patient denies any new weakness, numbness, or pain. [facility] Hyperosmolar non-ketotic state in patient with type 2 diabetes mellitus Off insulin drip Continue ada diet, accu checks IV fluids SSI, insulin dosage increased yesterday Hyponatremia Resolved, will continue to monitor Current use of terminal clerk anticoagulation Etio unclear Insulin dependent diabetes mellitus Cont Insulin and coverage HTN (hypertension) Controlled on current antihypertensives, continue HLD (hyperlipidemia) Cont statins CHF (congestive heart failure) Congestive heart failure chronicity acute on chronic Leukopenia closely monitor hematology consulted -hx of hep c., which may infact explain his cytopenias.he may benefit from replacement transfusion Thrombocytopenia no evidence of bleeding, closely monitor SIRS Urine and blood cultures final results pending Started on empiric abx Hypomagnesemia Replaced we'll continue to monitor Moderate protein malnutrition 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 Patient continues to complain of back pain, not chronic. Denies chest pain, shortness of breath, nausea, vomiting. Nurse notes and lab results reviewed Hospitalist Physical - Constitutional Vitals: Temp Pulse Resp BP Pulse Ox 98.5 F 84 22 125/77 95 10/01/17 15:08 10/01/17 15:08 10/01/17 15:08 10/01/17 15:08 10/01/17 15:08 General appearance: Present: mild distress - EENT Eyes: Present: PERRL, EOM intact ENT: hearing intact, clear oral mucosa - Neck Neck: Present: supple, normal ROM - Respiratory Respiratory effort: normal Respiratory: bilateral: CTA - Cardiovascular Rhythm: regular Heart Sounds: Present: S1 & S2 - Extremities Extremities: no ischemia, No edema Peripheral Pulses: within normal limits - Abdominal General gastrointestinal: deferred - Integumentary Integumentary: Present: clear, warm, dry - Psychiatric Psychiatric: appropriate mood/affect, cooperative - Neurologic Neurologic: CNII-XII intact - Allied Health Allied health notes reviewed: nursing Results - Labs CBC & Chem 7: 09/30/17 06:10 09/30/17 06:10 Labs: Laboratory Last Values WBC 2.7 K/mm3 (4.5-11.0) L 09/30/17 06:10 RBC 3.59 M/mm3 (3.65-5.03) L 09/30/17 06:10 Hgb 11.4 gm/dl (11.8-15.2) L 09/30/17 06:10 Hct 33.3 % (35.5-45.6) L 09/30/17 06:10 MCV 93 fl (84-94) 09/30/17 06:10 MCH 32 pg (28-32) 09/30/17 06:10 MCHC 34 % (32-34) 09/30/17 06:10 RDW 14.0 % (13.2-15.2) 09/30/17 06:10 Plt Count 67 K/mm3 (140-440) L 09/30/17 06:10 Lymph % (Auto) 37.5 % (13.4-35.0) H 09/30/17 06:10 [place] % (Auto) 11.8 % (0.0-7.3) H 09/30/17 06:10 Eos % (Auto) 3.2 % (0.0-4.3) 09/30/17 06:10 Baso % (Auto) 1.3 % (0.0-1.8) 09/30/17 06:10 Lymph # 1.0 K/mm3 (1.2-5.4) L 09/30/17 06:10 [place] # 0.3 K/mm3 (0.0-0.8) 09/30/17 06:10 Eos # 0.1 K/mm3 (0.0-0.4) 09/30/17 06:10 Baso # 0.0 K/mm3 (0.0-0.1) 09/30/17 06:10 Add Manual Diff Complete 09/27/17 11:27 Total Counted 100 09/27/17 11:27 Seg Neutrophils % 46.2 % (40.0-70.0) 09/30/17 06:10 Seg Neuts % (Manual) 81.0 % (40.0-70.0) H 09/27/17 11:27 Band Neutrophils % 1.0 % 09/27/17 11:27 Lymphocytes % (Manual) 13.0 % (13.4-35.0) L 09/27/17 11:27 Reactive Lymphs % (Man) 0 % 09/27/17 11:27 Monocytes % (Manual) 5.0 % (0.0-7.3) 09/27/17 11:27 Eosinophils % (Manual) 0 % (0.0-4.3) 09/27/17 11:27 Basophils % (Manual) 0 % (0.0-1.8) 09/27/17 11:27 Metamyelocytes % 0 % 09/27/17 11:27 Myelocytes % 0 % 09/27/17 11:27 Promyelocytes % 0 % 09/27/17 11:27 Blast Cells % 0 % 09/27/17 11:27 Nucleated RBC % Not Reportable 09/27/17 11:27 Seg Neutrophils # 1.2 K/mm3 (1.8-7.7) L 09/30/17 06:10 Seg Neutrophils # Man 2.3 K/mm3 (1.8-7.7) 09/27/17 11:27 Band Neutrophils # 0.0 K/mm3 09/27/17 11:27 Lymphocytes # (Manual) 0.4 K/mm3 (1.2-5.4) L 09/27/17 11:27 Abs React Lymphs (Man) 0.0 K/mm3 09/27/17 11:27 Monocytes # (Manual) 0.1 K/mm3 (0.0-0.8) 09/27/17 11:27 Eosinophils # (Manual) 0.0 K/mm3 (0.0-0.4) 09/27/17 11:27 Basophils # (Manual) 0.0 K/mm3 (0.0-0.1) 09/27/17 11:27 Metamyelocytes # 0.0 K/mm3 09/27/17 11:27 Myelocytes # 0.0 K/mm3 09/27/17 11:27 Promyelocytes # 0.0 K/mm3 09/27/17 11:27 Blast Cells # 0.0 K/mm3 09/27/17 11:27 WBC Morphology Not Reportable 09/27/17 11:27 Hypersegmented Neuts Not Reportable 09/27/17 11:27 Hyposegmented Neuts Not Reportable 09/27/17 11:27 Hypogranular Neuts Not Reportable 09/27/17 11:27 Smudge Cells Not Reportable 09/27/17 11:27 Toxic Granulation Not Reportable 09/27/17 11:27 Toxic Vacuolation Not Reportable 09/27/17 11:27 Dohle Bodies Not Reportable 09/27/17 11:27 Pelger-Huet Anomaly Not Reportable 09/27/17 11:27 Trent Rods Not Reportable 09/27/17 11:27 Platelet Estimate Consistent w auto 09/27/17 11:27 Clumped Platelets Not Reportable 09/27/17 11:27 Plt Clumps, EDTA Not Reportable 09/27/17 11:27 Large Platelets Not Reportable 09/27/17 11:27 Giant Platelets Not Reportable 09/27/17 11:27 Platelet Satelliting Not Reportable 09/27/17 11:27 Plt Morphology Comment Not Reportable 09/27/17 11:27 RBC Morphology Not Reportable 09/27/17 11:27 Dimorphic RBCs Not Reportable 09/27/17 11:27 Polychromasia Not Reportable 09/27/17 11:27 Hypochromasia Not Reportable 09/27/17 11:27 Poikilocytosis Not Reportable 09/27/17 11:27 Anisocytosis 1+ 09/27/17 11:27 Microcytosis Not Reportable 09/27/17 11:27 Macrocytosis Not Reportable 09/27/17 11:27 Spherocytes Not Reportable 09/27/17 11:27 Pappenheimer Bodies Not Reportable 09/27/17 11:27 Sickle Cells Not Reportable 09/27/17 11:27 Target Cells Not Reportable 09/27/17 11:27 Tear Drop Cells Not Reportable 09/27/17 11:27 Ovalocytes Not Reportable 09/27/17 11:27 Helmet Cells Not Reportable 09/27/17 11:27 [place] Bodies Not Reportable 09/27/17 11:27 [place] Rings Not Reportable 09/27/17 11:27 [place] Cells Not Reportable 09/27/17 11:27 Bite Cells Not Reportable 09/27/17 11:27 Crenated Cell Not Reportable 09/27/17 11:27 Elliptocytes Not Reportable 09/27/17 11:27 Acanthocytes (Spur) Not Reportable 09/27/17 11:27 Rouleaux Not Reportable 09/27/17 11:27 Hemoglobin C Crystals Not Reportable 09/27/17 11:27 Schistocytes Not Reportable 09/27/17 11:27 Malaria parasites Not Reportable 09/27/17 11:27 Krzysztof Bodies Not Reportable 09/27/17 11:27 Hem Pathologist Commnt No 09/27/17 11:27 PT 14.3 Sec. (12.2-14.9) 09/27/17 11:27 INR 1.06 (0.87-1.13) 09/27/17 11:27 APTT 28.8 Sec. (24.2-36.6) 09/27/17 11:27 POC ABG pH 7.418 (7.35-7.45) 09/30/17 11:26 POC ABG pCO2 37.3 (35-45) 09/30/17 11:26 POC ABG pO2 70 (80-105) L 09/30/17 11:26 POC ABG HCO3 24.1 09/30/17 11:26 POC ABG Total CO2 25 09/30/17 11:26 POC ABG O2 Sat 94 09/30/17 11:26 POC ABG Base Excess 0 09/30/17 11:26 VBG pH 7.382 (7.320-7.420) 09/27/17 11:27 FiO2 21 % 09/30/17 11:26 Sodium 138 mmol/L (137-145) 09/30/17 06:10 Potassium 4.1 mmol/L (3.6-5.0) 09/30/17 06:10 Chloride 103.3 mmol/L (98-107) 09/30/17 06:10 Carbon Dioxide 25 mmol/L (22-30) 09/30/17 06:10 Anion Gap 14 mmol/L 09/30/17 06:10 BUN 7 mg/dL (9-20) L 09/30/17 06:10 Creatinine 0.7 mg/dL (0.8-1.5) L 09/30/17 06:10 Estimated GFR > 60 ml/min 09/30/17 06:10 BUN/Creatinine Ratio 10 % 09/30/17 06:10 Glucose 193 mg/dL (75-100) H 09/30/17 06:10 POC Glucose 212 (70-105) H 10/01/17 11:26 Hemoglobin A1c 11.6 % (4-6) H 09/27/17 16:18 Calcium 8.1 mg/dL (8.4-10.2) L 09/30/17 06:10 Phosphorus 3.10 mg/dL (2.5-4.5) D 09/29/17 05:27 Magnesium 1.60 mg/dL (1.7-2.3) L 09/30/17 09:29 Total Bilirubin 0.50 mg/dL (0.1-1.2) 09/30/17 06:10 AST 94 units/L (5-40) H 09/30/17 06:10 ALT 47 units/L (7-56) 09/30/17 06:10 Alkaline Phosphatase 75 units/L (35-129) 09/30/17 06:10 Total Creatine Kinase 73 units/L (55-170) 09/27/17 11:27 CK-MB (CK-2) 7.2 ng/mL (0.0-4.0) H 09/27/17 11:27 CK-MB (CK-2) Rel Index 9.8 (0-4) H 09/27/17 11:27 Troponin T 0.018 ng/mL (0.00-0.029) 09/27/17 11:27 Total Protein 5.5 g/dL (6.3-8.2) L 09/30/17 06:10 Albumin 2.4 g/dL (3.9-5) L 09/30/17 06:10 Albumin/Globulin Ratio 0.8 % 09/30/17 06:10 Vitamin B12 451.9 pg/mL (211-911) 09/30/17 20:57 Folate > 20 ng/mL (7.3-26.0) 09/30/17 20:57 Urine Color Straw (Yellow) 09/27/17 11:40 Urine Turbidity Clear (Clear) 09/27/17 11:40 Urine pH 6.0 (5.0-7.0) 09/27/17 11:40 Ur Specific [place] 1.024 (1.003-1.030) 09/27/17 11:40 Urine Protein <15 mg/dl mg/dL (Negative) 09/27/17 11:40 Urine Glucose (UA) >=500 mg/dL (Negative) 09/27/17 11:40 Urine Ketones Neg mg/dL (Negative) 09/27/17 11:40 Urine Blood Neg (Negative) 09/27/17 11:40 Urine Nitrite Neg (Negative) 09/27/17 11:40 Urine Bilirubin Neg (Negative) 09/27/17 11:40 Urine Urobilinogen < 2.0 mg/dL (<2.0) 09/27/17 11:40 Ur Leukocyte Esterase Neg (Negative) 09/27/17 11:40 Urine WBC (Auto) < 1.0 /HPF (0.0-6.0) 09/27/17 11:40 Urine RBC (Auto) < 1.0 /HPF (0.0-6.0) 09/27/17 11:40 Urine Mucus Few /HPF 09/27/17 11:40 Urine Creatinine 8.9 mg/dL (0.1-20.0) 09/27/17 11:40 Urine Microalbumin < 1.2 mg/dL (0.1-34.0) 09/27/17 11:40 Microalb/Creat Ratio 134.8 ug/mg 09/27/17 11:40
--- NOTE | 2017-10-01 16:11 | Discharge Summary ---
Providers - Providers Date of Admission: 09/27/17 12:41 Date of discharge: 10/01/17 Attending physician: HARINDER UK 09/27/17 12:40 Consult to Dietitian/Nutrition [CONS] Routine Physician Instructions: Reason For Exam: DKA Reason for Consult: Nutrition Recommendations Reason for Consult: Diet education 09/27/17 15:35 Consult to Physician [CONS] Routine Consulting Provider: SHANIA RICO Reason For Exam: HONK Place consult to:: CC CINNAMON GRINDER Notified:: Y If yes, spoke with:: Forest/Efren MICHAUD Time called:: 16:00 09/27/17 15:56 Consult to Dietitian/Nutrition [CONS] Routine Physician Instructions: Reason For Exam: DKA Reason for Consult: Nutrition Recommendations Reason for Consult: Diet education 09/28/17 11:59 Consult to Wound/ET Nurse [CONS] Urgent Reason For Exam: wound eval 09/29/17 14:01 Physical Therapy Evaluation and Treat [CONS] Routine Comment: Reason For Exam: fall/previous cva 09/30/17 09:21 Consult to Physician [CONS] Routine Consulting Provider: JULIANNA ALONZO Reason For Exam: thrombocytopenia/leukopenia Place consult to:: Cellphone Notified:: yes Phone number called:: [phone] Primary care physician: ART GARCÍA Hospitalization Condition: Stable Hospital course: Hyperosmolar non-ketotic state in patient with type 2 diabetes mellitus Resolved Hyponatremia Resolved Current use of emt intermediate anticoagulation Insulin dependent diabetes mellitus D/c on Novolin 70 /30 HTN (hypertension) Controlled on current antihypertensives HLD (hyperlipidemia) Cont statins CHF (congestive heart failure) Congestive heart failure chronicity acute on chronic Not on any Diuretics SIRS Resolved DVT prophylaxis On Coumadin Disposition: DC- TO HOME OR SELFCARE - Discharge Diagnoses (1) Hyperosmolar non-ketotic state in patient with type 2 diabetes mellitus Status: Acute (2) Hyponatremia Status: Acute (3) Current use of care home anticoagulation Status: Chronic (4) Insulin dependent diabetes mellitus Status: Chronic (5) HTN (hypertension) Status: Chronic Qualifiers: Qualified Code(s): I10 - Essential (primary) hypertension (6) HLD (hyperlipidemia) Status: Chronic Qualifiers: Qualified Code(s): E78.2 - Mixed hyperlipidemia (7) CHF (congestive heart failure) Status: Chronic (8) DVT prophylaxis Status: Acute Core Measure Documentation - Palliative Care Palliative Care/ Comfort Measures: Not Applicable - Core Measures Any of the following diagnoses?: none Exam - Constitutional Vitals: Temp Pulse Resp BP Pulse Ox 98.5 F 84 22 125/77 95 10/01/17 15:08 10/01/17 15:08 10/01/17 15:08 10/01/17 15:08 10/01/17 15:08 General appearance: Present: no acute distress, well-nourished - EENT Eyes: Present: PERRL ENT: hearing intact, clear oral mucosa - Neck Neck: Present: supple, normal ROM - Respiratory Respiratory effort: normal Respiratory: bilateral: CTA - Cardiovascular Heart rate: 78 Rhythm: regular Heart Sounds: Present: S1 & S2. Absent: rub, click - Extremities Extremities: no ischemia, pulses intact, pulses symmetrical, No edema Peripheral Pulses: within normal limits - Abdominal General gastrointestinal: Present: soft, non-tender, non-distended, normal bowel sounds Male genitourinary: Present: normal - Rectal Rectal Exam: deferred - Integumentary Integumentary: Present: clear, warm, dry - Musculoskeletal Musculoskeletal: gait normal, strength equal bilaterally - Psychiatric Psychiatric: appropriate mood/affect, intact judgment & insight - Neurologic Neurologic: CNII-XII intact, moves all extremities - Allied Health Allied health notes reviewed: nursing Plan Activity: no restrictions Diet: diabetic Follow up with: ART GARCÍA MD [Primary Care Provider] - 3-5 Days
[2017-10-06 09:07] LABS: Heparin-Induced Platelet Antib Negative (Negative); Unfractionated Heparin Negative (Negative)
== END 2017-10-01 17:45 | disposition home or self-care (01) | DRG 871 ==
LOC: ED 10:56 → CC1 12:41 → 3A 09-28 10:01
PROVIDERS: ADMIT Internal Medicine; ATTEND Internal Medicine
PROC: 4A033R1 Measurement of Arterial Saturation, Peripheral, Percutaneous Approach (ICD-10-PCS; principal; 2017-09-30)
DX: A41.9 Sepsis, unspecified organism (principal); E11.10 Type 2 diabetes mellitus with ketoacidosis without coma; E11.00 Type 2 diabetes mellitus with hyperosmolarity without nonketotic hyperglycemic-hyperosmolar coma (NKHHC); E87.1 Hypo-osmolality and hyponatremia; I42.0 Dilated cardiomyopathy; B17.10 Acute hepatitis C without hepatic coma; D61.818 Other pancytopenia; E44.0 Moderate protein-calorie malnutrition; I50.9 Heart failure, unspecified; I11.0 Hypertensive heart disease with heart failure; E83.42 Hypomagnesemia; J61 Pneumoconiosis due to asbestos and other mineral fibers; E78.5 Hyperlipidemia, unspecified; E11.65 Type 2 diabetes mellitus with hyperglycemia; F17.210 Nicotine dependence, cigarettes, uncomplicated; S01.111A Laceration without foreign body of right eyelid and periocular area, initial encounter; W01.0XXA Fall on same level from slipping, tripping and stumbling without subsequent striking against object, initial encounter; I25.10 Atherosclerotic heart disease of native coronary artery without angina pectoris; Z95.5 Presence of coronary angioplasty implant and graft; Z88.8 Allergy status to other drugs, medicaments and biological substances; Z79.01 Long term (current) use of anticoagulants; Z68.24 Body mass index [BMI] 24.0-24.9, adult; I25.2 Old myocardial infarction; Z79.82 Long term (current) use of aspirin; Z71.6 Tobacco abuse counseling; Y93.89 Activity, other specified; Y92.89 Other specified places as the place of occurrence of the external cause
CPT/HCPCS: 36415; 36600; 70450; 70480; 71010; 71260; 72125; 80048; 80053; 81001; 82043; 82550; 82553; 82607; 82747; 82803; 82805; 82962; 83036; 83735; 84100; 84484; 85007; 85025; 85240; 85610; 85730; 86022; 86747; 87040; 87086; 93005; 93010; 96365; 96375; A9270-GY; G8978-GP; G8979-GP; J1650; J1815; J1818; J1953; J1956; J2060; J2405; J3475; J7030; J7040; Q9967

== ENCOUNTER 2017-12-24 19:20 | Emergency (ER) | payer MEDICARE ==
[2017-12-24 19:37] VITALS: BP 161/93
[2017-12-24] MEDS ORDERED: DILAUDID IV ONE ×2 (19:37→20:11)
[2017-12-24] MEDS ORDERED: ZOFRAN IV ONE ×2 (19:37→20:11)
--- NOTE | 2017-12-24 20:31 | Emergency Department Report ---
ED Fall HPI - General Chief Complaint: Extremity Injury, Upper Stated Complaint: ARM PAIN Source: patient, EMS Mode of arrival: Stretcher - History of Present Illness Initial Comments: 62 yo male fell at home onto concrete floor. He has left shoulder and upper arm pain. Obvious deformity. NO other injuries. No LOC. 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 Complaint: fall -: Sudden Fall From: other (fall onto concrete) When Fall Occurred: 1 hour THREAD CLIPPER Fall Witnessed: no Place Fall Occurred: home Loss of Consciousness: none Prolonged Down Time?: no Symptoms Prior to Fall: none Location - Extremities: Left: Shoulder, Arm Severity: severe Severity scale (0 -10): 10 Context: tripped/slipped, alcohol use - Related Data Previous Rx's Medication Instructions Recorded Last Taken Type Aspirin [Aspirin BABY CHEW TAB] 81 mg PO QDAY #30 tab.chew 01/29/17 09/28/17 Rx Carvedilol [Coreg] 3.125 mg PO BID #60 tablet 01/29/17 09/28/17 Rx Detemir (Nf) [Levemir (Nf)] 15 units SUB-Q DAILY 30 Days units 01/29/17 Rx Doxepin [SINEquan] 100 mg PO QHS capsule 01/29/17 09/28/17 Rx Folic Acid [Folvite] 1 mg PO QDAY #30 tablet 01/29/17 Unknown Rx Hypromellose [Isopto Tears 0.5%] 2 drops OU Q4H PRN #1 bottle 01/29/17 09/28/17 Rx Lisinopril [Zestril TAB] 2.5 mg PO QDAY #15 tablet 01/29/17 09/28/17 Rx Pantoprazole [Protonix TAB] 20 mg PO QDAY #30 tablet. 01/29/17 09/28/17 Rx ALPRAZolam [Xanax TAB] 1 mg PO QHS PRN #30 tablet 10/01/17 Unknown Rx HYDROcodone/APAP 10-325 [[place] 1 each PO Q4H PRN #45 tablet 10/01/17 Unknown Rx 10-325 mg TAB] Insulin Aspart Prot/Aspart(Nf) 15 units SQ BID #2 vial 10/01/17 Unknown Rx [Novolog Mix 70/30] Levofloxacin [Levaquin TAB] 750 mg PO DAILY #5 tablet 10/01/17 Unknown Rx Multivitamins Liq [Multiple 5 ml PO QDAY #150 oral.liqd 10/01/17 Unknown Rx Vitamin Liq (Theragran)] Sevelamer Carbonate [Renvela] 1,600 mg PO TIDWM #90 tablet 10/01/17 Unknown Rx Simvastatin [Zocor TAB] 20 mg PO QHS #30 tablet 10/01/17 Unknown Rx Thiamine [Vitamin B-1] 100 mg PO QDAY #30 tablet 10/01/17 Unknown Rx Warfarin [Coumadin] 2 mg PO DAILY@1700 #30 tablet 10/01/17 Unknown Rx Allergies Allergy/AdvReac Type Severity Reaction Status Date / Time heparin Allergy Severe THROMBOCYTO Verified 09/27/17 11:14 P[facility]IA ED Review of Systems ROS: Stated complaint: ARM PAIN Other details as noted in HPI Comment: All other systems reviewed and negative Constitutional: denies: fever, malaise Respiratory: denies: cough Cardiovascular: denies: chest pain ED Past Medical Hx - Past Medical History Previous Medical History?: Yes Hx Hypertension: Yes Hx Heart Attack/AMI: Yes Hx Congestive Heart Failure: Yes Hx Diabetes: Yes Hx Asthma: No Hx COPD: No Hx HIV: No Additional medical history: hep c - Surgical History Past Surgical History?: Yes Hx Coronary Stent: Yes (7 stents) - Social History Smoking Status: Current Every Day Smoker Substance Use Type: Alcohol - Medications Home Medications: Home Medications Medication Instructions Recorded Confirmed Last Taken Type Aspirin [Aspirin BABY CHEW TAB] 81 mg PO QDAY #30 tab.chew 01/29/17 09/30/17 Rx Carvedilol [Coreg] 3.125 mg PO BID #60 tablet 01/29/17 09/30/17 09/28/17 Rx Detemir (Nf) [Levemir (Nf)] 15 units SUB-Q DAILY 30 Days units 01/29/1709/28/17 Rx Doxepin [SINEquan] 100 mg PO QHS capsule 01/29/17 09/30/17 09/28/17 Rx Folic Acid [Folvite] 1 mg PO QDAY #30 tablet 01/29/17 09/30/17 Unknown Rx Hypromellose [Isopto Tears 0.5%] 2 drops OU Q4H PRN #1 bottle 01/29/17 09/30/17 09/28/17 Rx Lisinopril [Zestril TAB] 2.5 mg PO QDAY #15 tablet 01/29/17 09/30/17 09/28/17 Rx Pantoprazole [Protonix TAB] 20 mg PO QDAY #30 tablet. 01/29/17 09/30/17 Rx ALPRAZolam [Xanax TAB] 1 mg PO QHS PRN #30 tablet 10/01/17 Unknown Rx HYDROcodone/APAP 10-325 [[place] 1 each PO Q4H PRN #45 tablet 10/01/17 Unknown Rx 10-325 mg TAB] Insulin Aspart Prot/Aspart(Nf) 15 units SQ BID #2 vial 10/01/17 Unknown Rx [Novolog Mix 70/30] Levofloxacin [Levaquin TAB] 750 mg PO DAILY #5 tablet 10/01/17 Unknown Rx Multivitamins Liq [Multiple 5 ml PO QDAY #150 oral.liqd 10/01/17 Unknown Rx Vitamin Liq (Theragran)] Sevelamer Carbonate [Renvela] 1,600 mg PO TIDWM #90 tablet 10/01/17 Unknown Rx Simvastatin [Zocor TAB] 20 mg PO QHS #30 tablet 10/01/17 Unknown Rx Thiamine [Vitamin B-1] 100 mg PO QDAY #30 tablet 10/01/17 Unknown Rx Warfarin [Coumadin] 2 mg PO DAILY@1700 #30 tablet 10/01/17 Unknown Rx ED Physical Exam - General Limitations: No Limitations General appearance: alert, in no apparent distress - Head Head exam: Present: atraumatic, normocephalic - Eye Eye exam: Present: normal appearance, PERRL - ENT ENT exam: Present: normal orophraynx, mucous membranes moist - Neck Neck exam: Present: normal inspection - Respiratory Respiratory exam: Present: normal lung sounds bilaterally. Absent: respiratory distress, wheezes, rales, rhonchi - Cardiovascular Cardiovascular Exam: Present: regular rate, normal rhythm, normal heart sounds. Absent: systolic murmur, diastolic murmur, rubs, gallop - GI/Abdominal GI/Abdominal exam: Present: soft, normal bowel sounds. Absent: distended, tenderness, guarding, rebound - Rectal Rectal exam: Present: deferred - Extremities Exam Extremities exam: Present: other (left upper arm deformed intact skin 2+ radial pulse able to move fingers) - Back Exam Back exam: Present: normal inspection - Neurological Exam Neurological exam: Present: alert, oriented X3 - Psychiatric Psychiatric exam: Present: normal affect, normal mood - Skin Skin exam: Present: warm, dry, intact, normal color. Absent: rash ED Course Vital Signs 12/24/17 12/24/17 12/24/17 19:35 19:43 19:44 Temperature 98.1 F Pulse Rate 109 H Respiratory 20 20 18 Rate Blood Pressure 161/93 [Right] O2 Sat by Pulse 99 98 Oximetry 12/24/17 20:36 Temperature Pulse Rate Respiratory 18 Rate Blood Pressure [Right] O2 Sat by Pulse Oximetry ED Medical Decision Making - Radiology Data Radiology results: report reviewed, image reviewed - Medical Decision Making Mr. Cabral has a mid-shaft displaced humerus fx. NVI. I spoke with Dr. Mcnulty orthopedic surgeon recommended coaptation splint. Specialized Coaptation splint with preformed plastic material applied by RN under my supervision. Normal alignment, neurovascularly intact after placement. Patient understands follow-up with Dr. Mcnulty's office. Prescribed Percocet. Critical care attestation.: If time is entered above; I have spent that time in minutes in the direct care of this critically ill patient, excluding procedure time. ED Disposition Clinical Impression: Humerus fracture, Fall Disposition: - TO HOME OR SELFCARE Is pt being admited?: No Does the pt Need Aspirin: No Condition: Stable Instructions: Arm Fracture in Adults (ED), Splint Care (ED) Referrals: FABIOLA MCNULTY MD [Staff Physician] - 2-3 Days Time of Disposition: 22:07
[2017-12-24] MEDS ORDERED: PERCOCET 5/325 PO ONE (22:07)
--- NOTE | 2017-12-24 22:28 | XRay Report ---
FINAL REPORT EXAM: XR HUMERUS 2+V LT HISTORY: deformity TECHNIQUE: Two views left humerus were performed Comparison: None FINDINGS: There is a mildly angulated left mid humeral shaft fracture with approximately 1 centimeter bayonet apposition. No definite pathologic lesion is identified. IMPRESSION: Angulated left mid humeral shaft fracture with approximately 1 centimeter bayonet apposition. No definite underlying pathologic lesion.
== END 2017-12-24 22:32 | disposition home or self-care (01) ==
LOC: ED 19:20
DX: S42.302A Unspecified fracture of shaft of humerus, left arm, initial encounter for closed fracture (principal); I11.0 Hypertensive heart disease with heart failure; I50.9 Heart failure, unspecified; I25.2 Old myocardial infarction; E11.9 Type 2 diabetes mellitus without complications; F17.200 Nicotine dependence, unspecified, uncomplicated; Z79.82 Long term (current) use of aspirin; Z79.4 Long term (current) use of insulin; Z88.8 Allergy status to other drugs, medicaments and biological substances; W18.30XA Fall on same level, unspecified, initial encounter; Y93.89 Activity, other specified; Y92.89 Other specified places as the place of occurrence of the external cause; Y99.8 Other external cause status
CPT/HCPCS: 29105; 73060; 96374; 96375; 96376; 99284; J1170; J2405

== ENCOUNTER 2019-04-11 19:35 | Inpatient (IN) | payer MEDICARE ==
[2019-04-11] MEDS ORDERED: NACL 0.9% 1000 ML 1,000 ML IV ONE (20:18)
[2019-04-11 20:26] LABS: Basophils # (Auto) 0.1 K/mm3 (0.0-0.1); Basophils % (Auto) 1.1 % (0.0-1.8); Eosinophils # (Auto) 0.1 K/mm3 (0.0-0.4); Eosinophils % (Auto) 1.1 % (0.0-4.3); Hematocrit 33.7 % (35.5-45.6); Hemoglobin 11.9 gm/dl (11.8-15.2); Lymphocytes # (Auto) 1.4 K/mm3 (1.2-5.4); Lymphocytes % (Auto) 14.5 % (13.4-35.0); Mean Corpuscular HGB Conc 35 % (32-34); Mean Corpuscular Volume 87 fl (84-94); Monocytes # (Auto) 0.7 K/mm3 (0.0-0.8); Monocytes % (Auto) 7.5 % (0.0-7.3); Platelet Count 261 K/mm3 (140-440); Red Blood Count 3.87 M/mm3 (3.65-5.03); Red Cell Distribution Width 13.2 % (13.2-15.2)
[2019-04-11 20:36] LABS: INR 1.13 (0.87-1.13)
[2019-04-11 20:37] LABS: Partial Thromboplastin Time 27.5 Sec. (24.2-36.6)
--- NOTE | 2019-04-11 20:43 | Emergency Department Report ---
HPI - General Chief Complaint: GI Bleed Time Seen by Provider: 04/11/19 19:44 - HPI HPI: 64-year-old male presents to the emergency department from home with complaint of a few days of progressively worsening generalized abdominal pain. The patient allegedly had 2 episodes of passing out that were witnessed by his daughter earlier today. He says that [facility] but has not yet started any type of treatment. 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 He denies any illicit drugs. He has not taken anything for her symptoms prior to presentation. No recent travel or sick contacts at home. ED Past Medical Hx - Past Medical History Previous Medical History?: Yes Hx Hypertension: Yes Hx Heart Attack/AMI: Yes Hx Congestive Heart Failure: Yes Hx Diabetes: Yes (5 Yrs) Hx Arthritis: Yes Hx Asthma: No Hx COPD: No Hx HIV: No Additional medical history: hep c - Surgical History Past Surgical History?: Yes Hx Coronary Stent: Yes (7 stents) Hx Open Heart Surgery: No Hx Cholecystectomy: No Hx Appendectomy: No Hx Breast Surgery: No - Social History Smoking Status: Current Every Day Smoker Substance Use Type: None - Medications Home Medications: Home Medications Medication Instructions Recorded Confirmed Last Taken Type Aspirin [Aspirin BABY CHEW TAB] 81 mg PO QDAY #30 tab.chew 01/29/17 04/11/19 09/28/17 Rx Carvedilol [Coreg] 3.125 mg PO BID #60 tablet 01/29/17 04/11/19 09/28/17 Rx Doxepin [SINEquan] 100 mg PO QHS capsule 01/29/17 04/11/19 09/28/17 Rx Folic Acid [Folvite] 1 mg PO QDAY #30 tablet 01/29/17 04/11/19 Unknown Rx Hypromellose [Isopto Tears 0.5%] 2 drops OU Q4H PRN #1 bottle 01/29/17 04/11/19 09/28/17 Rx Lisinopril [Zestril TAB] 2.5 mg PO QDAY #15 tablet 01/29/17 04/11/19 09/28/17 Rx Pantoprazole [Protonix TAB] 20 mg PO QDAY #30 tablet. 01/29/17 04/11/19 09/28/17 Rx ALPRAZolam [Xanax TAB] 1 mg PO QHS PRN #30 tablet 10/01/17 04/11/19 Unknown Rx Insulin Aspart Prot/Aspart(Nf) 15 units SQ BID #2 vial 10/01/17 04/11/19 Unknown Rx [NovoLOG Mix 70/30 VIAL] Multivitamins Liq [Multiple 5 ml PO QDAY #150 oral.liqd 10/01/17 04/11/19 Unknown Rx Vitamin Liq (Theragran)] Sevelamer Carbonate [Renvela] 1,600 mg PO TIDWM #90 tablet 10/01/17 04/11/19 Unknown Rx Simvastatin (Nf) [Zocor TAB] 20 mg PO QHS #30 tablet 10/01/17 04/11/19 Unknown Rx Thiamine [Vitamin B-1] 100 mg PO QDAY #30 tablet 10/01/17 04/11/19 Unknown Rx ISOSORBIDE MONOnitrate [Imdur ER] 30 mg PO QDAY tablet 01/07/18 04/11/19 Unknown Rx Insulin NPH/Regular [NovoLIN 70/30] 15 unit SUB-Q BIDDIAB units 01/07/18 04/11/19 Unknown Rx Warfarin [Coumadin] 3 mg PO DAILY@1700 #30 tablet 01/07/18 04/11/19 Unknown Rx ED Review of Systems ROS: Stated complaint: ABD PAIN Other details as noted in HPI Comment: All other systems reviewed and negative Constitutional: denies: chills, fever Eyes: denies: eye pain, vision change ENT: denies: ear pain, throat pain Respiratory: denies: cough, shortness of breath Cardiovascular: syncope. denies: chest pain Gastrointestinal: abdominal pain. denies: vomiting Genitourinary: denies: dysuria, discharge Musculoskeletal: denies: back pain, arthralgia Skin: denies: rash, lesions Neurological: denies: headache, weakness Physical Exam - Physical Exam Vital Signs: Vital Signs 04/11/19 19:56 Temperature 98.0 F Pulse Rate 113 H Respiratory 26 H Rate Blood Pressure 86/61 [Right] O2 Sat by Pulse 99 Oximetry Physical Exam: GENERAL: Patient is ill-appearing. Disheveled appearance. HENT: Normocephalic. Atraumatic. Patient has moist mucous membranes. EYES: Extraocular motions are intact. Pupils equal reactive to light bilaterally. NECK: Supple. Trachea is midline. CHEST/LUNGS: Clear to auscultation. There is no respiratory distress noted. HEART/CARDIOVASCULAR: Regular. There is mild tachycardia. There is no murmur. ABDOMEN: Abdomen is soft. Generalized tenderness to palpation of the abdomen. No guarding. Patient has normal bowel sounds. There is no abdominal distention . SKIN: Skin is warm and dry. NEURO: The patient is awake, alert, and oriented. The patient is cooperative. The patient has no focal neurologic deficits. The patient has normal speech. MUSCULOSKELETAL: There is no tenderness or deformity. There is no evidence of acute injury. RECTAL: Patient has gross maroon colored blood. No obvious external lesions. ED Course Vital Signs 04/11/19 19:56 Temperature 98.0 F Pulse Rate 113 H Respiratory 26 H Rate Blood Pressure 86/61 [Right] O2 Sat by Pulse 99 Oximetry - Consultations Consultation #1: 04/12/19 02:25 I spoke with the earth auger operator munitions handler supervisor, Dr Sharma, regarding the patient's hyperkalemia. He agrees with the hyperkalemia cocktail and is happy to consult on the patient. ED Medical Decision Making - Lab Data Result diagrams: 04/12/19 16:45 04/12/19 06:46 - Radiology Data Radiology results: report reviewed CT abdomen pelvis w con INDICATION / CLINICAL INFORMATION: Abd pain. TECHNIQUE: Axial CT imaging of abdomen and pelvis was performed with IV contrast only. Coronal and sagittal reformatted imaging obtained and reviewed. All CT scans at this location are performed using CT dose reduction for ALARA by means of automated exposure control. COMPARISON: CT abdomen/pelvis, 12/27/2016 FINDINGS: CT abdomen with contrast demonstrates 2 enhancing masses within the liver. There is a 2.5 cm partially enhancing mass in the left lobe anteriorly. There is a second round enhancing mass measuring 12 mm in the right hepatic lobe near the dome. These are nonspecific in appearance. There is slight nodularity to the liver contour which could indicate the presence of cirrhosis. Additionally there appears to have been recannulization of the portal vein. Additionally there appears to have been Spleen, pancreas, kidneys, and adrenal glands appear grossly unremarkable. There are a few gallstones present within the gallbladder. No gallbladder distention. No biliary dilatation. CT pelvis demonstrates moderate amount of stool within the rectum and sigmoid colon. The remainder of the GI tract is unremarkable. Moderate amount of calcific plaque is seen throughout the abdominal aorta and common iliac arteries. No evidence for aneurysm. No acute osseous abnormality. There is multilevel degenerative disc disease in the inferior lumbar spine incidentally noted. Visualized lung bases show calcified pleural plaques consistent with prior asbestosis exposure. IMPRESSION: 1. 1. 2 enhancing masses within the liver, nonspecific. Differential diagnosis includes hemangiomas versus metastases. Prior CT scan was performed without contrast and therefore is not comparable. 2. Cholelithiasis without CT evidence for acute cholecystitis. 3. Constipation. 4. Recanalization of portal vein. Liver nodularity may indicate the presence of cirrhosis. CTA CHEST WITH IV CONTRAST INDICATION / CLINICAL INFORMATION: SOB, elevated dimer. TECHNIQUE: Axial CT images were obtained through the chest after injection of 100 cc IV contrast. 3 plane MIP and/or 3D reconstructions were produced. All CT scans at this location are performed using CT dose reduction for ALARA by means of automated exposure control. COMPARISON: None available. FINDINGS: PULMONARY ARTERIES: No pulmonary emboli. THORACIC AORTA: There is calcific plaque but no evidence of dissection or aneurysm. HEART: No significant abnormality. CORONARY ARTERIES: Coronary artery calcifications are present. PLEURA: No pleural effusion. No pneumothorax. LYMPH NODES: No significant adenopathy. LUNGS: No acute air space or interstitial disease. ADDITIONAL FINDINGS: There are large areas of calcified pleural plaques in both lungs consistent with prior asbestosis exposure. UPPER ABDOMEN: Cholelithiasis. SKELETAL STRUCTURES: No significant osseous abnormality. IMPRESSION: 1. No CT evidence for pulmonary embolism. 2. No acute findings. 3. Bilateral calcified pleural plaques consistent with prior asbestos exposure. - Medical Decision Making Patient presents to the emergency department with complaint of progressively worsening abdominal pain and now some recent gross rectal bleeding. On examination, the patient does have some tenderness to palpation of the abdomen b ut it is soft and nondistended. He does have blood seen on rectal examination that is also positive on guaiac testing. Patient's labs have been mostly unremarkable except for a potassium of 6, a low TSH, and a elevated and equivocal d-dimer. Abdominal x-ray shows nonspecific nonobstructive bowel gas. Chest x-ray did not show any acute process. The patient was given the hyperkalemia cocktail including Kayexalate, insulin, D50 and albuterol for the potassium of 6. I did speak with the earth auger operator munitions handler supervisor regarding the hyperkalemia and he is happy to consult if medicine chooses to do so. The patient will also need a gastroenterology consult. CT angiography of the chest did not show any pulmonary embolism, dissection, aneurysm, or any other acute process. We are currently waiting for the results of the CT of the abdomen and pelvis with IV contrast. The patient will need admission but my colleague will follow the results of the CT scan and will contact general surgery, gastroente rology, or transfer if necessary. Otherwise the patient has been accepted for admission by the hospitalist, Dr. Alexis. - Differential Diagnosis malignancy, diverticulosis, diverticulitis, colitis, bowel obstruction Critical Care Time: No Critical care attestation.: If time is entered above; I have spent that time in minutes in the direct care of this critically ill patient, excluding procedure time. ED Disposition Clinical Impression: Intractable abdominal pain, Hyperkalemia, Liver masses GI bleed Qualifiers: GI bleed type/associated pathology: gastric ulcer Qualified Code(s): K25.4 - Chronic or unspecified gastric ulcer with hemorrhage Disposition: OP ADMIT IP TO THIS HOSP Is pt being admited?: Yes Condition: Serious Time of Disposition: 02:30
--- NOTE | 2019-04-11 21:06 | XRay Report ---
Chest and abdominal series. 04/11/2019. HISTORY: Abdominal pain. Chest one view: Heart size is normal. Calcified pleural plaques are noted compatible with prior asbes tos exposure. Negative for lung infiltrate. Two-view abdomen: Gas is scattered throughout the abdomen in a nonobstructive fashion. Negative for f ree air or suspicious calcification. IMPRESSION: 1. Prior asbestos exposure. 2. No acute abnormality seen at the abdomen. Signer Name: Danie Medrano MD Signed: 04/11/2019 8:02 PM Workstation Name: [id number]
[2019-04-11 21:08] LABS: BUN/Creatinine Ratio 30; Blood Urea Nitrogen 30 mg/dL (9-20); Calcium 8.3 mg/dL (8.4-10.2); Hemolysis Index 4
[2019-04-11 21:12] LABS: Albumin 3.1 g/dL (3.9-5); Bilirubin,Direct 0.2 mg/dL (0-0.2)
[2019-04-11] MEDS ORDERED: D50W (25GM) Syringe IV ONE (21:49)
[2019-04-11] MEDS ORDERED: HumuLIN R IV ONE (21:49)
[2019-04-11] MEDS ORDERED: PROVENTIL IH ONE (21:49)
[2019-04-11] MEDS ORDERED: KIONEX PO ONE (21:50)
[2019-04-11] MEDS ORDERED: SUBLIMAZE IV ONE (21:54)
[2019-04-12] MEDS ORDERED: NACL 0.9% 1000 ML 1,000 ML IV ONE (01:56)
[2019-04-12] MEDS ORDERED: MORPHINE IV ONE (01:56)
--- NOTE | 2019-04-12 01:59 | Cat Scan Report ---
CTA CHEST WITH IV CONTRAST INDICATION / CLINICAL INFORMATION: SOB, elevated dimer. TECHNIQUE: Axial CT images were obtained through the chest after injection of 100 cc IV contrast. 3 plane MIP an d/or 3D reconstructions were produced. All CT scans at this location are performed using CT dose redu ction for [facility] by means of automated exposure control. COMPARISON: None available. FINDINGS: PULMONARY ARTERIES: No pulmonary emboli. THORACIC AORTA: There is calcific plaque but no evidence of dissection or aneurysm. HEART: No significant abnormality. CORONARY ARTERIES: Coronary artery calcifications are present. PLEURA: No pleural effusion. No pneumothorax. LYMPH NODES: No significant adenopathy. LUNGS: No acute air space or interstitial disease. ADDITIONAL FINDINGS: There are large areas of calcified pleural plaques in both lungs consistent with prior asbestosis exposure. UPPER ABDOMEN: Cholelithiasis. SKELETAL STRUCTURES: No significant osseous abnormality. IMPRESSION: 1. No CT evidence for pulmonary embolism. 2. No acute findings. 3. Bilateral calcified pleural plaques consistent with prior asbestos exposure. Signer Name: Debra Najera MD Signed: 04/12/2019 12:55 AM Workstation Name: [id number]
--- NOTE | 2019-04-12 02:28 | Cat Scan Report ---
CT abdomen pelvis w con INDICATION / CLINICAL INFORMATION: Abd pain. TECHNIQUE: Axial CT imaging of abdomen and pelvis was performed with IV contrast only. Coronal and sagittal refo rmatted imaging obtained and reviewed. All CT scans at this location are performed using CT dose redu ction for ALARA by means of automated exposure control. COMPARISON: CT abdomen/pelvis, 12/27/2016 FINDINGS: CT abdomen with contrast demonstrates 2 enhancing masses within the liver. There is a 2.5 cm partiall y enhancing mass in the left lobe anteriorly. There is a second round enhancing mass measuring 12 mm in the right hepatic lobe near the dome. These are nonspecific in appearance. There is slight nodular ity to the liver contour which could indicate the presence of cirrhosis. Additionally there appears t o have been recannulization of the portal vein. Additionally there appears to have been Spleen, pancr eas, kidneys, and adrenal glands appear grossly unremarkable. There are a few gallstones present with in the gallbladder. No gallbladder distention. No biliary dilatation. CT pelvis demonstrates moderate amount of stool within the rectum and sigmoid colon. The remainder of the GI tract is unremarkable. Moderate amount of calcific plaque is seen throughout the abdominal ao rta and common iliac arteries. No evidence for aneurysm. No acute osseous abnormality. There is multilevel degenerative disc disease in the inferior lumbar sp ine incidentally noted. Visualized lung bases show calcified pleural plaques consistent with prior asbestosis exposure. IMPRESSION: 1. 1. 2 enhancing masses within the liver, nonspecific. Differential diagnosis includes hemangiomas vers us metastases. Prior CT scan was performed without contrast and therefore is not comparable. 2. Cholelithiasis without CT evidence for acute cholecystitis. 3. Constipation. 4. Recanalization of portal vein. Liver nodularity may indicate the presence of cirrhosis. Signer Name: Debra Najera MD Signed: 04/12/2019 1:24 AM Workstation Name: [employer]
[2019-04-12] MEDS ORDERED: TYLENOL PO PRN (05:35)
[2019-04-12] MEDS ORDERED: SODIUM CHLORIDE FLUSH SYRINGE 10 ML IV PRN (05:35)
[2019-04-12] MEDS ORDERED: DULCOLAX PR PRN (05:35)
[2019-04-12] MEDS ORDERED: ZOFRAN IV PRN (05:35)
--- NOTE | 2019-04-12 05:48 | History and Physical Report ---
History of Present Illness Date of examination: 04/12/19 Chief complaint: Abdominal pain and Rectal bleeding since yesterday. History of present illness: 64-year-old male , [facility], with PMH Of Stomach Cancer, CAD presents to the emergency department with complaint of a few days of progressively worsening generalized abdominal pain. Today, he reports having hematochezia and Melena. He reports his abdominal pain to be 9/10 and unbearable. Pt states he has stomach cancer and he has pain every so often and that he had 2 episodes of passing out that were witnessed by his daughter earlier today. He says that he was recently diagnosed [facility] but has not yet started any type of treatment. He has a past medical history of hepatitis C, coronary artery disease with multiple stents and previous [place], diabetes, Dyslipidemia, COPD and tobacco abuse. He denies any illicit drugs. He has not taken anything for his symptoms prior to presentation. PT devorah any Dysu alexx, polyuria, syncope, CAD, SOB, recent travel or sick contacts at home. [facility] PT lives with his daughter but feels she cannot take care of him at home and he is open to being placed somewhere. Past History Past Medical History: cancer (stomach) Social history: lives with family, full code Medications and Allergies Allergies Allergy/AdvReac Type Severity Reaction Status Date / Time heparin Allergy Severe THROMBOCYTO Verified 09/27/17 11:14 [facility] Home Medications Medication Instructions Recorded Confirmed Last Taken Type Aspirin [Aspirin BABY CHEW TAB] 81 mg PO QDAY #30 tab.chew 01/29/17 04/11/19 09/28/17 Rx Carvedilol [Coreg] 3.125 mg PO BID #60 tablet 01/29/17 04/11/19 09/28/17 Rx Doxepin [SINEquan] 100 mg PO QHS capsule 01/29/17 04/11/19 09/28/17 Rx Folic Acid [Folvite] 1 mg PO QDAY #30 tablet 01/29/17 04/11/19 Unknown Rx Hypromellose [Isopto Tears 0.5%] 2 drops OU Q4H PRN #1 bottle 01/29/17 04/11/19 09/28/17 Rx Lisinopril [Zestril TAB] 2.5 mg PO QDAY #15 tablet 01/29/17 04/11/19 09/28/17 Rx Pantoprazole [Protonix TAB] 20 mg PO QDAY #30 tablet. 01/29/17 04/11/19 09/28/17 Rx ALPRAZolam [Xanax TAB] 1 mg PO QHS PRN #30 tablet 10/01/17 04/11/19 Unknown Rx Insulin Aspart Prot/Aspart(Nf) 15 units SQ BID #2 vial 10/01/17 04/11/19 Unknown Rx [NovoLOG Mix 70/30 VIAL] Multivitamins Liq [Multiple 5 ml PO QDAY #150 oral.liqd 10/01/17 04/11/19 Unknown Rx Vitamin Liq (Theragran)] Sevelamer Carbonate [Renvela] 1,600 mg PO TIDWM #90 tablet 10/01/17 04/11/19 Unknown Rx Simvastatin (Nf) [Zocor TAB] 20 mg PO QHS #30 tablet 10/01/17 04/11/19 Unknown Rx Thiamine [Vitamin B-1] 100 mg PO QDAY #30 tablet 10/01/17 04/11/19 Unknown Rx ISOSORBIDE MONOnitrate [Imdur ER] 30 mg PO QDAY tablet 01/07/18 04/11/19 Unknown Rx Insulin NPH/Regular [NovoLIN 70/30] 15 unit SUB-Q BIDDIAB units 01/07/18 04/11/19 Unknown Rx Warfarin [Coumadin] 3 mg PO DAILY@1700 #30 tablet 01/07/18 04/11/19 Unknown Rx Active Meds: Active Medications Acetaminophen (Tylenol) 650 mg PO Q4H PRN PRN Reason: Pain MILD(1-3)/Fever >100.5/VALENTINO Alprazolam (Xanax) 1 mg PO QHS PRN PRN Reason: Anxiety Bisacodyl (Dulcolax) 10 mg AL QDAY PRN PRN Reason: Constipation unrelieved by MOM Carvedilol (Coreg) 3.125 mg PO BID RENITA Doxepin HCl (Sinequan) 100 mg PO QHS RENITA Folic Acid (Folvite) 1 mg PO QDAY RENITA Dextrose/Sodium Chloride (D5ns) 1,000 mls @ 100 mls/hr IV DIRECT RENITA Insulin Human Isoph/Insulin Regular (Humulin 70/30) 15 unit SUB-Q BIDDIAB [facility] Isosorbide Mononitrate (Imdur) 30 mg PO QDAY [facility] Miscellaneous Medication (Simvastatin) 20 mg PO QHS RENITA Morphine Sulfate (Morphine) 2 mg IV Q4H PRN PRN Reason: Pain, Moderate (4-6) Multivitamins (Centrum Liq) 5 ml PO QDAY [facility] Ondansetron HCl (Zofran) 4 mg IV Q8H PRN PRN Reason: Nausea And Vomiting Sevelamer Carbonate (Renvela) 1,600 mg PO TIDWM [facility] Sodium Chloride (Sodium Chloride Flush Syringe 10 Ml) 10 ml IV BID RENITA Sodium Chloride (Sodium Chloride Flush Syringe 10 Ml) 10 ml IV PRN PRN PRN Reason: LINE FLUSH Thiamine HCl (Vitamin B-1) 100 mg PO QDAY [facility] Review of Systems Constitutional: weakness Exam - Constitutional Vitals: Temp Pulse Resp BP Pulse Ox 98.0 F 86 19 130/63 100 04/11/19 19:56 04/12/19 01:51 04/12/19 01:51 04/12/19 01:51 04/12/19 01:51 General appearance: Present: no acute distress, well-nourished - EENT Eyes: Present: PERRL ENT: hearing intact, clear oral mucosa - Neck Neck: Present: supple, normal ROM - Respiratory Respiratory effort: normal Respiratory: bilateral: CTA - Cardiovascular Heart Sounds: Present: S1 & S2. Absent: rub, click - Extremities Extremities: pulses symmetrical, No edema Peripheral Pulses: within normal limits - Abdominal General gastrointestinal: Present: soft, non-tender, tender, non-distended, normal bowel sounds Male genitourinary: Present: normal - Integumentary Integumentary: Present: clear, warm, dry - Musculoskeletal Musculoskeletal: gait normal, strength equal bilaterally - Psychiatric Psychiatric: appropriate mood/affect, intact judgment & insight - Neurologic Neurologic: CNII-XII intact, moves all extremities Results - Labs CBC & Chem 7: 04/11/19 20:03 04/11/19 20:03 Labs: Laboratory Last Values WBC 9.7 K/mm3 (4.5-11.0) 04/11/19 20:03 RBC 3.87 M/mm3 (3.65-5.03) 04/11/19 20:03 Hgb 11.9 gm/dl (11.8-15.2) 04/11/19 20:03 Hct 33.7 % (35.5-45.6) L 04/11/19 20:03 MCV 87 fl (84-94) 04/11/19 20:03 MCH 31 pg (28-32) 04/11/19 20:03 MCHC 35 % (32-34) H 04/11/19 20:03 RDW 13.2 % (13.2-15.2) 04/11/19 20:03 Plt Count 261 K/mm3 (140-440) 04/11/19 20:03 Lymph % (Auto) 14.5 % (13.4-35.0) 04/11/19 20:03 [place] % (Auto) 7.5 % (0.0-7.3) H 04/11/19 20:03 Eos % (Auto) 1.1 % (0.0-4.3) 04/11/19 20:03 Baso % (Auto) 1.1 % (0.0-1.8) 04/11/19 20:03 Lymph # 1.4 K/mm3 (1.2-5.4) 04/11/19 20:03 [place] # 0.7 K/mm3 (0.0-0.8) 04/11/19 20:03 Eos # 0.1 K/mm3 (0.0-0.4) 04/11/19 20:03 Baso # 0.1 K/mm3 (0.0-0.1) 04/11/19 20:03 Seg Neutrophils % 75.8 % (40.0-70.0) H 04/11/19 20:03 Seg Neutrophils # 7.4 K/mm3 (1.8-7.7) 04/11/19 20:03 PT 14.2 Sec. (12.2-14.9) 04/11/19 20:03 INR 1.13 (0.87-1.13) 04/11/19 20:03 APTT 27.5 Sec. (24.2-36.6) 04/11/19 20:03 345.5 ng/mlDDU (0-234) H 04/11/19 20:03 Sodium 133 mmol/L (137-145) L 04/11/19 20:03 Potassium 6.0 mmol/L (3.6-5.0) H 04/11/19 20:03 Chloride 100.7 mmol/L (98-107) 04/11/19 20:03 Carbon Dioxide 19 mmol/L (22-30) L 04/11/19 20:03 19 mmol/L 04/11/19 20:03 BUN 30 mg/dL (9-20) H 04/11/19 20:03 1.0 mg/dL (0.8-1.5) 04/11/19 20:03 Estimated GFR > 60 ml/min 04/11/19 20:03 30 % 04/11/19 20:03 Glucose 182 mg/dL (75-100) H 04/11/19 20:03 Calcium 8.3 mg/dL (8.4-10.2) L 04/11/19 20:03 0.70 mg/dL (0.1-1.2) 04/11/19 20:03 0.2 mg/dL (0-0.2) 04/11/19 20:03 0.5 mg/dL 04/11/19 20:03 AST 14 units/L (5-40) 04/11/19 20:03 ALT 9 units/L (7-56) 04/11/19 20:03 85 units/L (35-129) 04/11/19 20:03 < 0.010 ng/mL (0.00-0.029) 04/11/19 20:45 6.8 g/dL (6.3-8.2) 04/11/19 20:03 3.1 g/dL (3.9-5) L 04/11/19 20:03 0.8 % 04/11/19 20:03 13 units/L (13-60) 04/11/19 20:03 TSH 0.050 mlU/mL (0.270-4.200) L 04/11/19 20:45 Assessment and Plan Assessment and plan: Acute Rectal Bleeding - in this pt with a hx of Stomach Cancer - stable H/H upon admission.Per ED physician, pt has gross blood in his rectal vault - GI consult placed - PPI IV BID for now. Hold some antihypertensives - Hyperkalemia at 6.0 - pt got Kayexalate in the ED with insulin - Pt is on an Jesus Alberto inhibitor but not on Potassium pills - IVF - reassess Bilateral Calcified Pleural Plaques - possible Asbetos exposure - pt told about his continued surveillance with his oncologist Subtherapeutic INR - at 1.13 - Pt says he is unsure if he is on Warfarin. I see it on his med list - continue to hold Warfarin given rectal bleeding. Debility - ?underlying malignancy - engage in PT/OT SCD/PPI
[2019-04-12] MEDS: PROTONIX IV SCH ×2 (06:50→10:44)
[2019-04-12 07:15] LABS: Basophils # (Auto) 0.1 K/mm3 (0.0-0.1); Basophils % (Auto) 1.1 % (0.0-1.8); Eosinophils # (Auto) 0.1 K/mm3 (0.0-0.4); Eosinophils % (Auto) 0.7 % (0.0-4.3); Hematocrit 27.2 % (35.5-45.6); Hemoglobin 9.7 gm/dl (11.8-15.2); Lymphocytes # (Auto) 1.9 K/mm3 (1.2-5.4); Lymphocytes % (Auto) 23.3 % (13.4-35.0); Mean Corpuscular HGB Conc 36 % (32-34); Mean Corpuscular Volume 87 fl (84-94); Monocytes # (Auto) 0.7 K/mm3 (0.0-0.8); Platelet Count 182 K/mm3 (140-440); Red Blood Count 3.14 M/mm3 (3.65-5.03); Red Cell Distribution Width 13.7 % (13.2-15.2)
[2019-04-12 07:24] LABS: INR 1.21 (0.87-1.13)
[2019-04-12 07:29] LABS: BUN/Creatinine Ratio 40; Blood Urea Nitrogen 32 mg/dL (9-20); Calcium 8.1 mg/dL (8.4-10.2); Hemolysis Index 1
[2019-04-12] MEDS: MORPHINE IV PRN ×3 (09:39→20:31)
[2019-04-12] MEDS: SODIUM CHLORIDE FLUSH SYRINGE 10 ML IV SCH ×2 (09:39→22:49)
[2019-04-12 09:55] LABS: Hematocrit 24.1 % (35.5-45.6); Hemoglobin 8.7 gm/dl (11.8-15.2)
[2019-04-12] MEDS: FOLVITE PO SCH (10:26)
[2019-04-12] MEDS: COREG PO SCH ×2 (10:26→23:02)
[2019-04-12] MEDS: Centrum Liq PO SCH (10:26)
[2019-04-12] MEDS: RENVELA PO SCH ×3 (10:26→18:17)
[2019-04-12] MEDS: IMDUR PO SCH (10:26)
[2019-04-12] MEDS: VITAMIN B-1 PO SCH (10:27)
--- NOTE | 2019-04-12 11:31 | Gastroenterology Consultation ---
History of Present Illness - Reason for Consult Consult date: 04/12/19 GI bleeding Requesting physician: ERIKA GO - History of Present Illness Patient is a 64 y/o male with PMH of HTN, ND/CAD (s/p coronary stents), arthritis, DM, dyslipidemia, COPD, tobacco abuse, cirrhosis, hepatitis C (no previous tx), and recently diagnosed stomach cancer at the [place] per patient reports (records unavailable) who presented to ED with c/o worsening diffuse abdominal pain and GI bleeding with hematochezia and melena to which GI has consulted. Upon admission, abd CT showed 2 enhancing masses in the liver (hemangiomas vs metastases), cirrhosis, cholelithiasis (no acute cholecystitis), and constipation but no mass seen in stomach. Patient reports undergoing an EGD last August or September while in [facility] visiting family at the [place], and states when he returned home he was told the results showed stomach cancer (pt does not recall being told he had an ulcer or varices). He has not followed up with anyone at this time to begin treatment. Has no hx of prior GI bleeding but developed rectal bleeding yesterday with black and red blood with multiple episodes that have continued this am (2 episodes so far this am per nursing; maroon blood noted in diaper upon exam). No fever, CP, SOB, N/V, or hematemesis. Admits to continued gradual unintentional wt loss since last year. Takes daily ASA at home, along with Coumadin? per chart review. Has a remote hx of ETOH abuse but quit drinking several years ago. No Fhx of GI cancers. Past History Past Medical History: other (as per HPI) Past Surgical History: Other (Coronary Stents) Social history: lives with family, smoking, full code Medications and Allergies Allergies Allergy/AdvReac Type Severity Reaction Status Date / Time heparin Allergy Severe THROMBOCYTO Verified 09/27/17 11:14 PENIA Home Medications Medication Instructions Recorded Confirmed Last Taken Type Aspirin [Aspirin BABY CHEW TAB] 81 mg PO QDAY #30 tab.chew 01/29/17 04/11/19 09/28/17 Rx Carvedilol [Coreg] 3.125 mg PO BID #60 tablet 01/29/17 04/11/19 09/28/17 Rx Doxepin [SINEquan] 100 mg PO QHS capsule 01/29/17 04/11/19 09/28/17 Rx Folic Acid [Folvite] 1 mg PO QDAY #30 tablet 01/29/17 04/11/19 Unknown Rx Hypromellose [Isopto Tears 0.5%] 2 drops OU Q4H PRN #1 bottle 01/29/17 04/11/19 09/28/17 Rx Lisinopril [Zestril TAB] 2.5 mg PO QDAY #15 tablet 01/29/17 04/11/19 09/28/17 Rx Pantoprazole [Protonix TAB] 20 mg PO QDAY #30 tablet. 01/29/17 04/11/19 09/28/17 Rx ALPRAZolam [Xanax TAB] 1 mg PO QHS PRN #30 tablet 10/01/17 04/11/19 Unknown Rx Insulin Aspart Prot/Aspart(Nf) 15 units SQ BID #2 vial 10/01/17 04/11/19 Unknown Rx [NovoLOG Mix 70/30 VIAL] Multivitamins Liq [Multiple 5 ml PO QDAY #150 oral.liqd 10/01/17 04/11/19 Unknown Rx Vitamin Liq (Theragran)] Sevelamer Carbonate [Renvela] 1,600 mg PO TIDWM #90 tablet 10/01/17 04/11/19 Unknown Rx Simvastatin (Nf) [Zocor TAB] 20 mg PO QHS #30 tablet 10/01/17 04/11/19 Unknown Rx Thiamine [Vitamin B-1] 100 mg PO QDAY #30 tablet 10/01/17 04/11/19 Unknown Rx ISOSORBIDE MONOnitrate [Imdur ER] 30 mg PO QDAY tablet 01/07/18 04/11/19 Unknown Rx Insulin NPH/Regular [NovoLIN 70/30] 15 unit SUB-Q BIDDIAB units 01/07/18 04/11/19 Unknown Rx Warfarin [Coumadin] 3 mg PO DAILY@1700 #30 tablet 01/07/18 04/11/19 Unknown Rx Active Meds: Active Medications Acetaminophen (Tylenol) 650 mg PO Q4H PRN PRN Reason: Pain MILD(1-3)/Fever >100.5/VALENTINO Alprazolam (Xanax) 1 mg PO QHS PRN PRN Reason: Anxiety Bisacodyl (Dulcolax) 10 mg [place] QDAY PRN PRN Reason: Constipation unrelieved by MOM Carvedilol (Coreg) 3.125 mg PO BID REPLACED BY [facility] Last Admin: 04/12/19 10:26 Dose: Not Given Documented by: Doxepin HCl (Sinequan) 100 mg PO QHS REPLACED BY [facility] Folic Acid (Folvite) 1 mg PO QDAY REPLACED BY [facility] Last Admin: 04/12/19 10:26 Dose: Not Given Documented by: Dextrose/Sodium Chloride (D5ns) 1,000 mls @ 100 mls/hr IV DIRECT REPLACED BY [facility] Insulin Human Isoph/Insulin Regular (Humulin 70/30) 15 unit SUB-Q BIDDIAB REPLACED BY [facility] Last Admin: 04/12/19 10:26 Dose: Not Given Documented by: Isosorbide Mononitrate (Imdur) 30 mg PO QDAY REPLACED BY [facility] Last Admin: 04/12/19 10:26 Dose: Not Given Documented by: Morphine Sulfate (Morphine) 2 mg IV Q4H PRN PRN Reason: Pain, Moderate (4-6) Last Admin: 04/12/19 09:39 Dose: 2 mg Documented by: Multivitamins (Centrum Liq) 5 ml PO QDAY REPLACED BY [facility] Last Admin: 04/12/19 10:26 Dose: Not Given Documented by: Ondansetron HCl (Zofran) 4 mg IV Q8H PRN PRN Reason: Nausea And Vomiting Pantoprazole Sodium (Protonix) 40 mg IV BID REPLACED BY [facility] Last Admin: 04/12/19 10:44 Dose: 40 mg Documented by: Pravastatin Sodium (Pravachol) 40 mg PO QHS REPLACED BY [facility] Sevelamer Carbonate (Renvela) 1,600 mg PO TIDWM REPLACED BY [facility] Last Admin: 04/12/19 10:26 Dose: Not Given Documented by: Sodium Chloride (Sodium Chloride Flush Syringe 10 Ml) 10 ml IV BID REPLACED BY [facility] Last Admin: 04/12/19 09:39 Dose: 10 ml Documented by: Sodium Chloride (Sodium Chloride Flush Syringe 10 Ml) 10 ml IV PRN PRN PRN Reason: LINE FLUSH Thiamine HCl (Vitamin B-1) 100 mg PO QDAY REPLACED BY [facility] Last Admin: 04/12/19 10:27 Dose: Not Given Documented by: medications reviewed/updated as tolerated Review of Systems - Review of Systems All systems: negative Constitutional: weight loss Gastrointestinal: abdominal pain, melena, hematochezia Exam - Constitutional Vital Signs: Temp Pulse Resp BP Pulse Ox 98.9 F 82 22 126/70 100 04/12/19 08:37 04/12/19 08:37 04/12/19 08:37 04/12/19 08:37 04/12/19 08:37 General appearance: mild distress - EENT Eyes: PERRL, EOM intact ENT: hearing intact - Respiratory Respiratory effort: normal - Cardiovascular Rhythm: regular - Gastrointestinal General gastrointestinal: Present: soft, tender (slight TTP), non-distended, normal bowel sounds Rectal Exam: other (maroon blood noted in diaper) - Neurologic Neurological: alert and oriented x3 - Labs CBC & Chem 7: 04/12/19 09:42 04/12/19 06:46 Lab Results: Laboratory Results - last 24 hr 04/11/19 04/11/19 04/11/19 20:03 20:03 20:03 WBC 9.7 RBC 3.87 Hgb 11.9 Hct 33.7 L MCV 87 MCH 31 MCHC 35 H RDW 13.2 Plt Count 261 Lymph % (Auto) 14.5 [place] % (Auto) 7.5 H Eos % (Auto) 1.1 Baso % (Auto) 1.1 Lymph # 1.4 [place] # 0.7 Eos # 0.1 Baso # 0.1 Seg Neutrophils % 75.8 H Seg Neutrophils # 7.4 PT 14.2 INR 1.13 APTT 27.5 D-Dimer Sodium 133 L Potassium 6.0 H Chloride 100.7 Carbon Dioxide 19 L Anion Gap 19 BUN 30 H Creatinine 1.0 Estimated GFR > 60 BUN/Creatinine Ratio 30 Glucose 182 H POC Glucose Calcium 8.3 L Total Bilirubin Direct Bilirubin Indirect Bilirubin AST ALT Alkaline Phosphatase Troponin T Total Protein Albumin Albumin/Globulin Ratio Lipase TSH 04/11/19 04/11/19 04/11/19 20:03 20:03 20:45 WBC RBC Hgb Hct MCV MCH MCHC RDW Plt Count Lymph % (Auto) [place] % (Auto) Eos % (Auto) Baso % (Auto) Lymph # [place] # Eos # Baso # Seg Neutrophils % Seg Neutrophils # PT INR APTT D-Dimer 345.5 H Sodium Potassium Chloride Carbon Dioxide Anion Gap BUN Creatinine Estimated GFR BUN/Creatinine Ratio Glucose POC Glucose Calcium Total Bilirubin 0.70 Direct Bilirubin 0.2 Indirect Bilirubin 0.5 AST 14 ALT 9 Alkaline Phosphatase 85 Troponin T < 0.010 Total Protein 6.8 Albumin 3.1 L Albumin/Globulin Ratio 0.8 Lipase 13 TSH 04/11/19 04/12/19 04/12/19 20:45 06:44 06:46 WBC 8.3 RBC 3.14 L Hgb 9.7 L Hct 27.2 L D MCV 87 MCH 31 MCHC 36 H RDW 13.7 Plt Count 182 Lymph % (Auto) 23.3 [place] % (Auto) 9.0 H Eos % (Auto) 0.7 Baso % (Auto) 1.1 Lymph # 1.9 [place] # 0.7 Eos # 0.1 Baso # 0.1 Seg Neutrophils % 65.9 Seg Neutrophils # 5.4 PT 15.0 H INR 1.21 H APTT D-Dimer Sodium Potassium Chloride Carbon Dioxide Anion Gap BUN Creatinine Estimated GFR BUN/Creatinine Ratio Glucose POC Glucose Calcium Total Bilirubin Direct Bilirubin Indirect Bilirubin AST ALT Alkaline Phosphatase Troponin T Total Protein Albumin Albumin/Globulin Ratio Lipase TSH 0.050 L 04/12/19 04/12/19 04/12/19 06:46 09:42 09:50 WBC RBC Hgb 8.7 L Hct 24.1 L MCV MCH MCHC RDW Plt Count Lymph % (Auto) [place] % (Auto) Eos % (Auto) Baso % (Auto) Lymph # [place] # Eos # Baso # Seg Neutrophils % Seg Neutrophils # PT INR APTT D-Dimer Sodium 138 Potassium 4.7 D Chloride 104.1 Carbon Dioxide 20 L Anion Gap 19 BUN 32 H Creatinine 0.8 Estimated GFR > 60 BUN/Creatinine Ratio 40 Glucose 128 H POC Glucose 132 H Calcium 8.1 L Total Bilirubin Direct Bilirubin Indirect Bilirubin AST ALT Alkaline Phosphatase Troponin T Total Protein Albumin Albumin/Globulin Ratio Lipase TSH Assessment and Plan 1.GI bleeding (hematochezia/melena) 2.H/o recently diagnosed stomach CA at [place] per pt report (records unavailable) 3.H/o cirrhosis/hepatitis C (no prior tx) 4.abdominal pain 5.liver mass seen on CT -afebrile -H/H 8.7/24.1-trending down; continue to monitor H/H and transfuse as needed -hold blood thinning medications -plt 182, INR 1.21 -BUN 32 -LFTs WNL -abd CT showed 2 enhancing masses in the liver (hemangiomas vs metastases), cirrhosis, cholelithiasis (no acute cholecystitis), and constipation but no mass seen in stomach -patient reports worsening diffuse abd pain with rectal bleeding that began yesterday with black and bright red blood (2 episodes so far this am per nursing). Maroon blood noted in diaper upon exam. No hematemesis. -etiology-most likely an upper source given history -start on protonix drip -start on octreotide drip -will schedule for EGD today -Keep NPO -currently HD stable- monitor vitals closely; low threshold to transfer to ICU if needed for closer monitoring -further recommendations to follow EGD results
--- NOTE | 2019-04-12 11:57 | Event Note ---
Date: 04/12/19 Patient with recently diagnosed GI bleed. I have seen and examined him. Later discussed with Dr. Yusuf and Dr. Ceron. Dr. Yusuf recommends transfer to [facility].
[2019-04-12] MEDS: SandoSTATIN 500 MCG in NACL 0.9% 100 ML IV SCH (12:31)
[2019-04-12] MEDS ORDERED: WATER FOR IRRIG STERILE IR ONE (12:35)
[2019-04-12] MEDS: NACL 0.9% 1000 ML 1,000 ML IV SCH (13:07)
[2019-04-12] MEDS ORDERED: XYLOCAINE 2% INFILTRATI ONE (13:21)
[2019-04-12] MEDS ORDERED: DILAUDID ONE (13:21)
--- NOTE | 2019-04-12 13:28 | Anesthesia Day of Surgery ---
Anesthesia Day of Surgery - Day of Surgery Patient Examined: Yes Patient H&P Reviewed: Yes Patient is NPO: Yes Beta Blockers: Yes Cardiac Clearance: No
--- NOTE | 2019-04-12 13:29 | Anesthesia Consultation ---
Anesthesia Consult and Med Hx Date of service: 04/12/19 - Airway Anesthetic Teeth Evaluation: Good ROM Head & Neck: Adequate Mental/Hyoid Distance: Adequate Mallampati Class: Class III Intubation Access Assessment: Good - Pulmonary Exam CTA: Yes - Cardiac Exam Cardiac Exam: No Murmur - Pre-Operative Health Status ASA Pre-Surgery Classification: ASA4 Proposed Anesthetic Plan: MAC - Pulmonary Hx Smoking: Yes Hx Asthma: No COPD: No Hx Pneumonia: No - Cardiovascular System Hx Hypertension: Yes Hx Coronary Artery Disease: Yes Hx Heart Attack/AMI: Yes - Central Nervous System Hx Back Pain: Yes Hx Psychiatric Problems: No - Endocrine Hx End Stage Renal Disease: No - Other Systems Hx Alcohol Use: Yes Hx Substance Use: Yes Hx Cancer: No
[2019-04-12] MEDS ORDERED: ZOFRAN ONE (13:39)
[2019-04-12] MEDS ORDERED: AMIDATE IV ONE (13:39)
[2019-04-12] MEDS ORDERED: DIPRIVAN 10 MG/ML IV ONE (13:40)
[2019-04-12] MEDS ORDERED: XYLOCAINE MPF 2% ONE (13:40)
[2019-04-12] MEDS ORDERED: VERSED ONE (13:41)
--- NOTE | 2019-04-12 14:30 | Operative Report ---
Operative Report Operative Report: Esophagogastroduodenoscopy Procedure Note Date of procedure: 04/12/2019 Endoscopist: Miguel Yusuf MD Pre-op diagnosis: GI bleed, melena Post-op diagnosis: diffuse gastric mass-like lesion with ulcer, nonbleeding Anesthesia: MAC Complications: No immediate complications Estimated blood loss: None Procedure: After consent was obtained, the patient was placed in the left lateral decubitus position. The olympus endoscope was inserted into the patient's mouth under direct vision, and advanced into the 2nd portion of the duodenum without difficulty. The patient tolerated the procedure well. The views of the mucosa were limited due to difficulty distending the stomach. Patient's vital signs were monitored continuously throughout the procedure. Findings: The esophagus showed a small hiatal hernia without obvious signs of esophageal varices. No signs of bleeding. Exam of the stomach showed diffuse mass-like friable lesion circumferential in the mid and distal body extending up to the fundus with incomplete visualization due to difficulty distending the stomach. In the distal portion of the mass lesion, there was a partially visualized cratered ulcer without bleeding stigmata. Biopsies were obtained from the gastric mass. The antrum appeared normal without any obvious gastric varices. Retroflexion was performed and revealed extension of the mass lesion to the fundus. The examined part of the duodenum appeared normal. Impression: 1. A diffuse mass-like friable circumferential lesion in the mid to distal body extending up to the fundus with incomplete visualization due to difficulty distending the stomach. In the distal portion of the mass lesion, there was a partially visualized cratered ulcer without bleeding stigmata. Bx obtained from the mass lesion. 2. No obvious gastric or esophageal varices. 3. A small hiatal hernia. 4. Normal duodenum. Recommendations: - Continue with PPI IV - Stay on clear liquid diet. - Monitor H/H and for signs of recurrent active bleeding. - recommend transfer to step-down unit for closer monitoring. - recommend surgery consult. - Will follow.
[2019-04-12] MEDS: D5NS 1,000 ML IV SCH (16:20)
[2019-04-12] MEDS: PROTONIX 80 MG in NACL 0.9% 100 ML IV SCH (16:58)
--- NOTE | 2019-04-12 17:08 | Consultation ---
History of Present Illness Consult date: 04/12/19 Reason for consult: abdominal pain Requesting physician: ANGELO MICHAELS Chief complaint: Chronic abdominal pain and bleeding - History of present illness History of present illness: 64 yo male, [facility], with PMH Of Stomach Cancer, CAD presents to the emergency department with complaint of a few days of progressively worsening generalized abdominal pain and BRBPR. He says that he was recently diagnosed with stomach cancer through the [facility] in [place] but has not yet started any type of treatment. He reports constant abdominal pain for at least the past 4-6 months. He has lost at least 30-40 pounds over the past 4 months. Eating makes his pain worse. He requires narcotics to help control the pain. EGD done today by Dr. Michaels showed no active bleeding in the stomach. Past History Past Medical History: acute KS, CAD, cancer (Gastric), COPD, diabetes, heart failure, hepatitis (C), hyperlipidemia, other. denies: DVT, pulmonary embolism Past Surgical History: Other (Coronary Stents) Social history: lives with family, smoking (1PPD), full code. denies: alcohol abuse (stopped), prescription drug abuse, IV drug use Family history: no significant family history Medications and Allergies Allergies Allergy/AdvReac Type Severity Reaction Status Date / Time heparin Allergy Severe THROMBOCYTO Verified 09/27/17 11:14 [facility] Home Medications Medication Instructions Recorded Confirmed Last Taken Type Aspirin [Aspirin BABY CHEW TAB] 81 mg PO QDAY #30 tab.chew 01/29/17 04/11/19 09/28/17 Rx Carvedilol [Coreg] 3.125 mg PO BID #60 tablet 01/29/17 04/11/19 09/28/17 Rx Doxepin [SINEquan] 100 mg PO QHS capsule 01/29/17 04/11/19 09/28/17 Rx Folic Acid [Folvite] 1 mg PO QDAY #30 tablet 01/29/17 04/11/19 Unknown Rx Hypromellose [Isopto Tears 0.5%] 2 drops OU Q4H PRN #1 bottle 01/29/17 04/11/19 09/28/17 Rx Lisinopril [Zestril TAB] 2.5 mg PO QDAY #15 tablet 01/29/17 04/11/19 09/28/17 Rx Pantoprazole [Protonix TAB] 20 mg PO QDAY #30 tablet. 01/29/17 04/11/19 09/28/17 Rx ALPRAZolam [Xanax TAB] 1 mg PO QHS PRN #30 tablet 10/01/17 04/11/19 Unknown Rx Insulin Aspart Prot/Aspart(Nf) 15 units SQ BID #2 vial 10/01/17 04/11/19 Unknown Rx [NovoLOG Mix 70/30 VIAL] Multivitamins Liq [Multiple 5 ml PO QDAY #150 oral.liqd 10/01/17 04/11/19 Un known Rx Vitamin Liq (Theragran)] Sevelamer Carbonate [Renvela] 1,600 mg PO TIDWM #90 tablet 10/01/17 04/11/19 Unknown Rx Simvastatin (Nf) [Zocor TAB] 20 mg PO QHS #30 tablet 10/01/17 04/11/19 Unknown Rx Thiamine [Vitamin B-1] 100 mg PO QDAY #30 tablet 10/01/17 04/11/19 Unknown Rx ISOSORBIDE MONOnitrate [Imdur ER] 30 mg PO QDAY tablet 01/07/18 04/11/19 Unknown Rx Insulin NPH/Regular [NovoLIN 70/30] 15 unit SUB-Q BIDDIAB units 01/07/18 04/11/19 Unknown Rx Warfarin [Coumadin] 3 mg PO DAILY@1700 #30 tablet 01/07/18 04/11/19 Unknown Rx Active Meds: Active Medications Acetaminophen (Tylenol) 650 mg PO Q4H PRN PRN Reason: Pain MILD(1-3)/Fever >100.5/VALENTINO Alprazolam (Xanax) 1 mg PO QHS PRN PRN Reason: Anxiety Bisacodyl (Dulcolax) 10 mg UT QDAY PRN PRN Reason: Constipation unrelieved by MOM Carvedilol (Coreg) 3.125 mg PO BID [facility] Last Admin: 04/12/19 10:26 Dose: Not Given Documented by: Doxepin HCl (Sinequan) 100 mg PO QHS RENITA Folic Acid (Folvite) 1 mg PO QDAY RENITA Last Admin: 04/12/19 10:26 Dose: Not Given Documented by: Dextrose/Sodium Chloride (D5ns) 1,000 mls @ 100 mls/hr IV DIRECT RENITA Last Admin: 04/12/19 16:20 Dose: 100 mls/hr Documented by: Octreotide Acetate 500 mcg/ (Sodium Chloride) 101 mls @ 5.05 mls/hr IV TITR [facility]; Protocol Last Admin: 04/12/19 12:31 Dose: 25 mcg/hr, 5.05 mls/hr Documented by: Pantoprazole Sodium 80 mg/ (Sodium Chloride) 100 mls @ 10 mls/hr IV DIRECT [facility] Last Admin: 04/12/19 16:58 Dose: 8 mg/hr, 10 mls/hr Documented by: Sodium Chloride (Nacl 0.9% 1000 Ml) 1,000 mls @ 50 mls/hr IV DIRECT [facility] Last Admin: 04/12/19 13:07 Dose: 50 mls/hr Documented by: Insulin Human Isoph/Insulin Regular (Humulin 70/30) 15 unit SUB-Q BIDDIAB [facility] Last Admin: 04/12/19 10:26 Dose: Not Given Documented by: Isosorbide Mononitrate (Imdur) 30 mg PO QDAY [facility] Last Admin: 04/12/19 10:26 Dose: Not Given Documented by: Morphine Sulfate (Morphine) 2 mg IV Q4H PRN PRN Reason: Pain, Moderate (4-6) Last Admin: 04/12/19 16:20 Dose: 2 mg Documented by: Multivitamins (Centrum Liq) 5 ml PO QDAY [facility] Last Admin: 04/12/19 10:26 Dose: Not Given Documented by: Ondansetron HCl (Zofran) 4 mg IV Q8H PRN PRN Reason: Nausea And Vomiting Pravastatin Sodium (Pravachol) 40 mg PO QHS [facility] Sevelamer Carbonate (Renvela) 1,600 mg PO TIDWM [facility] Last Admin: 04/12/19 12:25 Dose: Not Given Documented by: Sodium Chloride (Sodium Chloride Flush Syringe 10 Ml) 10 ml IV BID [facility] Last Admin: 04/12/19 09:39 Dose: 10 ml Documented by: Sodium Chloride (Sodium Chloride Flush Syringe 10 Ml) 10 ml IV PRN PRN PRN Reason: LINE FLUSH Thiamine HCl (Vitamin B-1) 100 mg PO QDAY [facility] Last Admin: 04/12/19 10:27 Dose: Not Given Documented by: Review of Systems - Constitutional weight loss, weakness, chronic pain, no fever, no chills - Cardiovascular syncope, no chest pain, no rapid/irregular heart beat - Respiratory no cough - Gastrointestinal abdominal pain, BRBPR - Muskuloskeletal other (chronic back pain) Exam Vital Signs Temp Pulse Resp BP Pulse Ox 98.0 F 113 H 26 H 86/61 99 04/11/19 19:56 04/11/19 19:56 04/11/19 19:56 04/11/19 19:56 04/11/19 19:56 - General physical appearance Positive: no distress, chronically ill - Eyes Positive: normal occular movement - Respiratory Positive: normal expansion, normal respiratory effort, clear to auscultation - Cardiovascular Rhythm: regular - Abdomen Abdomen: Present: soft, organomegaly. Absent: tender, distended, masses, guarding, rigid, wound, surgical scars - Integumentary no rash, no growths, no abnormal pigmentation - Neurologic Neurologic: alert and oriented to time, place and person - Psychiatric Psychiatric: appropriate mood/affect, intact judgment & insight, cooperative Results - Labs 04/12/19 09:42 04/12/19 06:46 Abnormal lab results 04/11/19 04/11/19 04/11/19 Range/Units 20:03 20:03 20:03 RBC (3.65-5.03) M/mm3 Hgb (11.8-15.2) gm/dl Hct 33.7 L (35.5-45.6) % MCHC 35 H (32-34) % Lee % (Auto) 7.5 H (0.0-7.3) % Seg Neutrophils % 75.8 H (40.0-70.0) % PT (12.2-14.9) Sec. INR (0.87-1.13) D-Dimer (0-234) ng/mlDDU Sodium 133 L (137-145) mmol/L Potassium 6.0 H (3.6-5.0) mmol/L Carbon Dioxide 19 L (22-30) mmol/L BUN 30 H (9-20) mg/dL Glucose 182 H (75-100) mg/dL POC Glucose (70-105) Calcium 8.3 L (8.4-10.2) mg/dL Albumin 3.1 L (3.9-5) g/dL TSH (0.270-4.200) mlU/mL 04/11/19 04/11/19 04/12/19 Range/Units 20:03 20:45 06:44 RBC (3.65-5.03) M/mm3 Hgb (11.8-15.2) gm/dl Hct (35.5-45.6) % MCHC (32-34) % Lee % (Auto) (0.0-7.3) % Seg Neutrophils % (40.0-70.0) % PT 15.0 H (12.2-14.9) Sec. INR 1.21 H (0.87-1.13) D-Dimer 345.5 H (0-234) ng/mlDDU Sodium (137-145) mmol/L Potassium (3.6-5.0) mmol/L Carbon Dioxide (22-30) mmol/L BUN (9-20) mg/dL Glucose (75-100) mg/dL POC Glucose (70-105) Calcium (8.4-10.2) mg/dL Albumin (3.9-5) g/dL TSH 0.050 L (0.270-4.200) mlU/mL 04/12/19 04/12/19 04/12/19 Range/Units 06:46 06:46 09:42 RBC 3.14 L (3.65-5.03) M/mm3 Hgb 9.7 L 8.7 L (11.8-15.2) gm/dl Hct 27.2 L D 24.1 L (35.5-45.6) % MCHC 36 H (32-34) % Lee % (Auto) 9.0 H (0.0-7.3) % Seg Neutrophils % (40.0-70.0) % PT (12.2-14.9) Sec. INR (0.87-1.13) D-Dimer (0-234) ng/mlDDU Sodium (137-145) mmol/L Potassium (3.6-5.0) mmol/L Carbon Dioxide 20 L (22-30) mmol/L BUN 32 H (9-20) mg/dL Glucose 128 H (75-100) mg/dL POC Glucose (70-105) Calcium 8.1 L (8.4-10.2) mg/dL Albumin (3.9-5) g/dL TSH (0.270-4.200) mlU/mL 04/12/19 04/12/19 Range/Units 09:50 12:08 RBC (3.65-5.03) M/mm3 Hgb (11.8-15.2) gm/dl Hct (35.5-45.6) % MCHC (32-34) % Lee % (Auto) (0.0-7.3) % Seg Neutrophils % (40.0-70.0) % PT (12.2-14.9) Sec. INR (0.87-1.13) D-Dimer (0-234) ng/mlDDU Sodium (137-145) mmol/L Potassium (3.6-5.0) mmol/L Carbon Dioxide (22-30) mmol/L BUN (9-20) mg/dL Glucose (75-100) mg/dL POC Glucose 132 H 128 H (70-105) Calcium (8.4-10.2) mg/dL Albumin (3.9-5) g/dL TSH (0.270-4.200) mlU/mL Diabetes panel 04/11/19 04/11/19 04/12/19 Range/Units 20:03 20:03 06:46 Sodium 133 L 138 (137-145) mmol/L Potassium 6.0 H 4.7 D (3.6-5.0) mmol/L Chloride 100.7 104.1 (98-107) mmol/L Carbon Dioxide 19 L 20 L (22-30) mmol/L BUN 30 H 32 H (9-20) mg/dL Creatinine 1.0 0.8 (0.8-1.5) mg/dL Glucose 182 H 128 H (75-100) mg/dL Calcium 8.3 L 8.1 L (8.4-10.2) mg/dL AST 14 (5-40) units/L ALT 9 (7-56) units/L Alkaline Phosphatase 85 (35-129) units/L Total Protein 6.8 (6.3-8.2) g/dL Albumin 3.1 L (3.9-5) g/dL Thyroid panel 04/11/19 Range/Units 20:45 TSH 0.050 L (0.270-4.200) mlU/mL Calcium panel 04/11/19 04/11/19 04/12/19 Range/Units 20:03 20:03 06:46 Calcium 8.3 L 8.1 L (8.4-10.2) mg/dL Albumin 3.1 L (3.9-5) g/dL Pituitary panel 04/11/19 04/11/19 04/12/19 Range/Units 20:03 20:45 06:46 Sodium 133 L 138 (137-145) mmol/L Potassium 6.0 H 4.7 D (3.6-5.0) mmol/L Chloride 100.7 104.1 (98-107) mmol/L Carbon Dioxide 19 L 20 L (22-30) mmol/L BUN 30 H 32 H (9-20) mg/dL Creatinine 1.0 0.8 (0.8-1.5) mg/dL Glucose 182 H 128 H (75-100) mg/dL Calcium 8.3 L 8.1 L (8.4-10.2) mg/dL TSH 0.050 L (0.270-4.200) mlU/mL Adrenal panel 04/11/19 04/11/19 04/12/19 Range/Units 20:03 20:03 06:46 Sodium 133 L 138 (137-145) mmol/L Potassium 6.0 H 4.7 D (3.6-5.0) mmol/L Chloride 100.7 104.1 (98-107) mmol/L Carbon Dioxide 19 L 20 L (22-30) mmol/L BUN 30 H 32 H (9-20) mg/dL Creatinine 1.0 0.8 (0.8-1.5) mg/dL Glucose 182 H 128 H (75-100) mg/dL Calcium 8.3 L 8.1 L (8.4-10.2) mg/dL Total Bilirubin 0.70 (0.1-1.2) mg/dL AST 14 (5-40) units/L ALT 9 (7-56) units/L Alkaline Phosphatase 85 (35-129) units/L Total Protein 6.8 (6.3-8.2) g/dL Albumin 3.1 L (3.9-5) g/dL - Imaging CT scan - abdomen: report reviewed, image reviewed CT scan - pelvis: report reviewed, image reviewed Assessment and Plan - Patient Problems (1) GI bleed Current Visit: Yes Status: Acute Qualifiers: GI bleed type/associated pathology: gastric ulcer Qualified Code(s): K25.4 - Chronic or unspecified gastric ulcer with hemorrhage Plan to address problem: By history and Dr. Michaels's report, it appears as though the bleeding is under control at this time. He is at high risk for rebleeding due to his malignancy. The optimal goal would be to stabilize him and get him to a tertiary center that can manage his extensive gastric cancer as well as the GI bleed. If need be, we would take him for emergency surgery if he has uncontrollable bleeding. This has been explained to the patient and he agrees with the plan. Will follow along. Please call with questions. Discussed with Drs. Driver and Paramjit. Time=30min (2) Gastric cancer Current Visit: Yes Status: Acute Qualifiers: Malignant neoplasm of stomach location: overlapping locations Qualified Code(s): C16.8 - Malignant neoplasm of overlapping sites of stomach Plan to address problem: Patient appears to have extensive cancer based on his EGD report and his CT scan. Patient is a high risk surgical candidate based on his comorbidities and his extensive varices. I'm concerned he also has metastatic disease. This would be best managed by a tertiary center with surgical oncology. The first plan should be to try to stabilize him and transfer him to a tertiary center. If he has issues with significant bleeding that precludes transfer, then we will proceed with emergency surgery. This is been explained to the patient and he understands.
[2019-04-12 17:17] LABS: Hematocrit 23.8 % (35.5-45.6); Hemoglobin 8.4 gm/dl (11.8-15.2)
[2019-04-12 21:22] LABS: Hemoglobin 9.1 gm/dl (11.8-15.2)
[2019-04-12] MEDS ORDERED: SINEquan PO SCH (22:00)
[2019-04-12] MEDS: PRAVACHOL PO SCH (23:06)
[2019-04-13] MEDS: MORPHINE IV PRN ×7 (00:27→22:26)
[2019-04-13] MEDS: PROTONIX 80 MG in NACL 0.9% 100 ML IV SCH ×3 (02:02→22:28)
[2019-04-13] MEDS: D5NS 1,000 ML IV SCH ×2 (02:06→13:24)
[2019-04-13 05:38] LABS: Basophils # (Auto) 0.1 K/mm3 (0.0-0.1); Basophils % (Auto) 1.3 % (0.0-1.8); Eosinophils # (Auto) 0.3 K/mm3 (0.0-0.4); Eosinophils % (Auto) 5.6 % (0.0-4.3); Hematocrit 23.8 % (35.5-45.6); Hemoglobin 8.3 gm/dl (11.8-15.2); Lymphocytes # (Auto) 1.3 K/mm3 (1.2-5.4); Lymphocytes % (Auto) 26.1 % (13.4-35.0); Mean Corpuscular HGB Conc 35 % (32-34); Mean Corpuscular Volume 87 fl (84-94); Monocytes # (Auto) 0.4 K/mm3 (0.0-0.8); Monocytes % (Auto) 7.8 % (0.0-7.3); Platelet Count 138 K/mm3 (140-440); Red Blood Count 2.73 M/mm3 (3.65-5.03); Red Cell Distribution Width 13.2 % (13.2-15.2)
[2019-04-13 05:50] LABS: INR 1.18 (0.87-1.13)
[2019-04-13 06:00] LABS: BUN/Creatinine Ratio 26; Blood Urea Nitrogen 21 mg/dL (9-20); Calcium 8.1 mg/dL (8.4-10.2); Hemolysis Index 7
--- NOTE | 2019-04-13 09:43 | Progress Note ---
Assessment and Plan Assessment and plan: Acute Rectal Bleeding - in this pt with a hx of Stomach Cancer - stable H/H upon admission.Per ED physician, pt has gross blood in his rectal vault - GI and Surgeon following - PPI IV BID for now. Hold some antihypertensives - EGD done 04/12 revealed gastric mass,ulcer -Discussed with GI, Oncology and Surgeon Gastric cancer diagnosed at [facility], as per patient Records requested not available yet Discussed with Dr. Munroe, Oncology - he is considering liver biopsy for 2 liver lesions and consulting Radiation oncology Liver lesions,2 Hyperkalemia resolved CAD Stable No chest pain Bilateral Calcified Pleural Plaques - possible Asbetos exposure - pt told about his continued surveillance with his oncologist Subtherapeutic INR - at 1.13 -- continue to hold Warfarin given rectal bleeding. Debility - ?underlying malignancy - engage in PT/OT SCD/PPI History Interval history: patient presented with bloody stools Hospitalist Physical - Physical exam Narrative exam: Gen: Not in acute distress, lying in bed HEENT: Normocephalic, atraumatic Neck: supple, no JVD Heart: S1 and S2 regular, no murmurs, rubs or gallop Lungs: Clear, no crackles, no wheeze Abd: soft, tender epigastric region, non distended, normal BS Ext: No edema, no clubbing, no cyanosis, Neuro: Awake,alert, oriented,moves all ext, - Constitutional Vitals: Temp Pulse Resp BP Pulse Ox 98.3 F 57 L 10 L 117/57 97 04/13/19 08:00 04/13/19 08:30 04/13/19 08:30 04/13/19 08:30 04/13/19 08:30 General appearance: Present: no acute distress, well-nourished Results - Labs CBC & Chem 7: 04/13/19 15:52 04/13/19 05:26 Labs: Laboratory Last Values WBC 5.2 K/mm3 (4.5-11.0) 04/13/19 05:26 RBC 2.73 M/mm3 (3.65-5.03) L 04/13/19 05:26 Hgb 8.3 gm/dl (11.8-15.2) L 04/13/19 05:26 Hct 23.8 % (35.5-45.6) L 04/13/19 05:26 MCV 87 fl (84-94) 04/13/19 05:26 MCH 31 pg (28-32) 04/13/19 05:26 MCHC 35 % (32-34) H 04/13/19 05:26 RDW 13.2 % (13.2-15.2) 04/13/19 05:26 Plt Count 138 K/mm3 (140-440) L 04/13/19 05:26 Lymph % (Auto) 26.1 % (13.4-35.0) 04/13/19 05:26 [place] % (Auto) 7.8 % (0.0-7.3) H 04/13/19 05:26 Eos % (Auto) 5.6 % (0.0-4.3) H 04/13/19 05:26 Baso % (Auto) 1.3 % (0.0-1.8) 04/13/19 05:26 Lymph # 1.3 K/mm3 (1.2-5.4) 04/13/19 05:26 [place] # 0.4 K/mm3 (0.0-0.8) 04/13/19 05:26 Eos # 0.3 K/mm3 (0.0-0.4) 04/13/19 05:26 Baso # 0.1 K/mm3 (0.0-0.1) 04/13/19 05:26 Seg Neutrophils % 59.2 % (40.0-70.0) 04/13/19 05:26 Seg Neutrophils # 3.0 K/mm3 (1.8-7.7) 04/13/19 05:26 PT 14.7 Sec. (12.2-14.9) 04/13/19 05:26 INR 1.18 (0.87-1.13) H 04/13/19 05:26 APTT 27.5 Sec. (24.2-36.6) 04/11/19 20:03 345.5 ng/mlDDU (0-234) H 04/11/19 20:03 Sodium 140 mmol/L (137-145) 04/13/19 05:26 Potassium 4.5 mmol/L (3.6-5.0) 04/13/19 05:26 Chloride 110.4 mmol/L (98-107) H 04/13/19 05:26 Carbon Dioxide 22 mmol/L (22-30) 04/13/19 05:26 12 mmol/L 04/13/19 05:26 BUN 21 mg/dL (9-20) H 04/13/19 05:26 0.8 mg/dL (0.8-1.5) 04/13/19 05:26 Estimated GFR > 60 ml/min 04/13/19 05:26 26 % 04/13/19 05:26 Glucose 146 mg/dL (75-100) H 04/13/19 05:26 POC Glucose 155 (70-105) H 04/13/19 05:53 Calcium 8.1 mg/dL (8.4-10.2) L 04/13/19 05:26 0.70 mg/dL (0.1-1.2) 04/11/19 20:03 0.2 mg/dL (0-0.2) 04/11/19 20:03 0.5 mg/dL 04/11/19 20:03 AST 14 units/L (5-40) 04/11/19 20:03 ALT 9 units/L (7-56) 04/11/19 20:03 85 units/L (35-129) 04/11/19 20:03 < 0.010 ng/mL (0.00-0.029) 04/11/19 20:45 6.8 g/dL (6.3-8.2) 04/11/19 20:03 3.1 g/dL (3.9-5) L 04/11/19 20:03 0.8 % 04/11/19 20:03 13 units/L (13-60) 04/11/19 20:03 TSH 0.050 mlU/mL (0.270-4.200) L 04/11/19 20:45 Free T4 1.46 ng/dL (0.76-1.46) 04/12/19 16:45 Blood Type A NEGATIVE 04/12/19 16:45 Antibody Screen Negative 04/12/19 16:45 Active Medications - Current Medications Current Medications: Generic Name Dose Route Start Last Admin Trade Name Freq PRN Reason Stop Dose Admin Acetaminophen 650 mg 04/12/19 05:35 Tylenol PO Q4H PRN Pain MILD(1-3)/Fever >100.5/VALENTINO Alprazolam 1 mg 04/12/19 05:39 Xanax PO QHS PRN Anxiety Bisacodyl 10 mg 04/12/19 05:35 Dulcolax [place] QDAY PRN Constipation unrelieved by MOM Carvedilol 3.125 mg 04/12/19 10:00 04/12/19 23:02 Coreg PO Not Given BID RENITA Doxepin HCl 100 mg 04/12/19 22:00 04/12/19 23:06 Sinequan PO Not Given QHS RENITA Folic Acid 1 mg 04/12/19 10:00 04/12/19 10:26 Folvite PO Not Given QDAY RENITA Dextrose/Sodium Chloride 1,000 mls @ 100 mls/hr 04/12/19 06:00 04/13/19 02:06 D5ns IV 100 mls/hr DIRECT RENITA Administration Octreotide Acetate 500 mcg/ 101 mls @ 5.05 mls/hr 04/12/19 12:00 04/12/19 12:31 Sodium Chloride IV 25 mcg/hr TITR RENITA 5.05 mls/hr Administration Protocol 25 MCG/HR Pantoprazole Sodium 80 mg/ 100 mls @ 10 mls/hr 04/12/19 12:00 04/13/19 02:02 Sodium Chloride IV 8 mg/hr DIRECT RENITA 10 mls/hr Administration 8 MG/HR Sodium Chloride 1,000 mls @ 50 mls/hr 04/12/19 13:00 04/12/19 13:07 Nacl 0.9% 1000 Ml IV 50 mls/hr DIRECT RENITA Administration Insulin Human Isoph/Insulin Regular 15 unit 04/12/19 08:00 04/13/19 08:18 Humulin 70/30 SUB-Q 15 unit BIDDIAB RENITA Administration Isosorbide Mononitrate 30 mg 04/12/19 10:00 04/12/19 10:26 Imdur PO Not Given QDAY [facility] Morphine Sulfate 2 mg 04/12/19 05:35 04/13/19 08:18 Morphine IV 2 mg Q4H PRN Administration Pain, Moderate (4-6) Multivitamins 5 ml 04/12/19 10:00 04/12/19 10:26 Centrum Liq PO Not Given QDAY [facility] Ondansetron HCl 4 mg 04/12/19 05:35 Zofran IV Q8H PRN Nausea And Vomiting Pravastatin Sodium 40 mg 04/12/19 22:00 04/12/19 23:06 Pravachol PO Not Given QHS RENITA Sevelamer Carbonate 1,600 mg 04/12/19 08:00 04/12/19 18:17 Renvela PO Not Given TIDWM R[facility] Sodium Chloride 10 ml 04/12/19 10:00 04/12/19 22:49 Sodium Chloride Flush Syringe 10 Ml IV 10 ml BID RENITA Administration Sodium Chloride 10 ml 04/12/19 05:35 Sodium Chloride Flush Syringe 10 Ml IV PRN PRN LINE FLUSH Thiamine HCl 100 mg 04/12/19 10:00 04/12/19 10:27 Vitamin B-1 PO Not Given QDAY [facility]
--- NOTE | 2019-04-13 09:54 | Progress Note ---
Assessment and Plan - Patient Problems (1) GI bleed Current Visit: Yes Status: Acute Qualifiers: GI bleed type/associated pathology: gastric ulcer Qualified Code(s): K25.4 - Chronic or unspecified gastric ulcer with hemorrhage Plan to address problem: Pt stable. Hgb stable. No transfusions o/n. Ok to start clear liquid diet. Will probably take 3-5 days for blood in intestines to clear. (2) Gastric cancer Current Visit: Yes Status: Acute Qualifiers: Malignant neoplasm of stomach location: overlapping locations Qualified Code(s): C16.8 - Malignant neoplasm of overlapping sites of stomach Plan to address problem: Patient appears to have extensive cancer based on his EGD report and his CT scan. Patient is a high risk surgical candidate based on his comorbidities and his extensive varices. I'm concerned he also has metastatic disease. This would be best managed by a tertiary center with surgical oncology. I would recommend that we hold off on further diagnostic studies such as biopsies as we should not be the center that manages this malignancy. If we want to confirm the diagnosis, I would suggest that we get the records from the [facility]. We should be working on transfer to a tertiary center while the patient is stable. Please call with questions. Time=10min Subjective Date of service: 04/13/19 Patient Reports: Positive: still having pain, other (wants to drink. still having bright red and dark red bowel movements. Not as much as before.). Nega tive: nausea, vomiting Objective Vital Signs - 12hr 04/12/19 04/12/19 04/12/19 22:00 22:10 22:20 Temperature Pulse Rate 65 61 62 Pulse Rate [ 65 From Monitor] Respiratory 11 L 8 L 11 L Rate Blood Pressure O2 Sat by Pulse 100 100 99 Oximetry 04/12/19 04/12/19 04/12/19 22:30 22:40 22:50 Temperature Pulse Rate 60 60 65 Pulse Rate [ From Monitor] Respiratory 10 L 12 10 L Rate Blood Pressure O2 Sat by Pulse 100 100 100 Oximetry 04/12/19 04/12/19 04/12/19 23:00 23:02 23:10 Temperature Pulse Rate 59 L 61 61 Pulse Rate [ From Monitor] Respiratory 15 10 L Rate Blood Pressure 123/100 123/100 O2 Sat by Pulse 100 100 Oximetry 04/12/19 04/12/19 04/12/19 23:20 23:30 23:40 Temperature Pulse Rate 72 60 70 Pulse Rate [ From Monitor] Respiratory 18 12 18 Rate Blood Pressure 123/100 123/100 123/100 O2 Sat by Pulse 100 100 100 Oximetry 04/12/19 04/12/19 04/13/19 23:50 23:54 00:00 Temperature 98.0 F 98.0 F Pulse Rate 60 62 Pulse Rate [ 61 From Monitor] Respiratory 8 L 13 Rate Blood Pressure 123/100 118/62 O2 Sat by Pulse 100 100 Oximetry 04/13/19 04/13/19 04/13/19 00:10 00:20 00:30 Temperature Pulse Rate 80 67 78 Pulse Rate [ From Monitor] Respiratory 13 11 L 13 Rate Blood Pressure 118/62 118/62 118/62 O2 Sat by Pulse 100 100 100 Oximetry 04/13/19 04/13/19 04/13/19 00:40 00:50 01:00 Temperature Pulse Rate 66 73 66 Pulse Rate [ From Monitor] Respiratory 12 10 L 16 Rate Blood Pressure 118/62 118/62 124/64 O2 Sat by Pulse 99 96 98 Oximetry 04/13/19 04/13/19 04/13/19 01:10 01:20 01:30 Temperature Pulse Rate 72 65 71 Pulse Rate [ From Monitor] Respiratory 17 17 10 L Rate Blood Pressure 124/64 124/64 124/64 O2 Sat by Pulse 97 98 99 Oximetry 04/13/19 04/13/19 04/13/19 01:40 01:50 02:00 Temperature Pulse Rate 67 62 69 Pulse Rate [ From Monitor] Respiratory 12 12 13 Rate Blood Pressure 124/64 124/64 117/53 O2 Sat by Pulse 97 99 98 Oximetry 04/13/19 04/13/19 04/13/19 02:10 02:20 02:30 Temperature Pulse Rate 58 L 64 64 Pulse Rate [ From Monitor] Respiratory 16 14 13 Rate Blood Pressure 117/53 117/53 117/53 O2 Sat by Pulse 99 96 96 Oximetry 04/13/19 04/13/19 04/13/19 02:40 02:50 03:00 Temperature Pulse Rate 64 64 60 Pulse Rate [ From Monitor] Respiratory 16 17 19 Rate Blood Pressure 117/53 117/53 117/60 O2 Sat by Pulse 98 98 100 Oximetry 07/03/19 07/03/19 07/03/19 03:10 03:20 03:30 Temperature Pulse Rate 63 58 L 63 Pulse Rate [ From Monitor] Respiratory 13 15 16 Rate Blood Pressure 117/60 117/60 117/60 O2 Sat by Pulse 98 99 99 Oximetry 04/13/19 04/13/19 04/13/19 03:40 03:50 04:00 Temperature Pulse Rate 56 L 62 71 Pulse Rate [ 64 From Monitor] Respiratory 15 17 18 Rate Blood Pressure 117/60 117/60 116/69 O2 Sat by Pulse 99 98 98 Oximetry 04/13/19 04/13/19 04/13/19 04:04 04:10 04:20 Temperature 98.3 F Pulse Rate 81 65 Pulse Rate [ From Monitor] Respiratory 23 19 Rate Blood Pressure 116/69 116/69 O2 Sat by Pulse 99 97 Oximetry 04/13/19 04/13/19 04/13/19 04:30 04:31 04:40 Temperature Pulse Rate 61 60 Pulse Rate [ From Monitor] Respiratory 16 12 14 Rate Blood Pressure 116/69 116/69 O2 Sat by Pulse 100 100 Oximetry 04/13/19 04/13/19 04/13/19 04:50 05:00 05:10 Temperature Pulse Rate 60 61 59 L Pulse Rate [ From Monitor] Respiratory 17 11 L 16 Rate Blood Pressure 116/69 114/61 114/61 O2 Sat by Pulse 98 98 98 Oximetry 04/13/19 04/13/19 04/13/19 05:20 05:30 05:40 Temperature Pulse Rate 61 72 75 Pulse Rate [ From Monitor] Respiratory 14 17 12 Rate Blood Pressure 114/61 114/61 114/61 O2 Sat by Pulse 98 100 100 Oximetry 04/13/19 04/13/19 04/13/19 05:50 06:00 06:10 Temperature Pulse Rate 61 60 61 Pulse Rate [ From Monitor] Respiratory 15 11 L 15 Rate Blood Pressure 114/61 116/61 116/61 O2 Sat by Pulse 100 98 97 Oximetry 04/13/19 04/13/19 04/13/19 06:20 06:30 06:40 Temperature Pulse Rate 64 59 L 62 Pulse Rate [ From Monitor] Respiratory 14 18 17 Rate Blood Pressure 116/61 116/61 116/61 O2 Sat by Pulse 97 98 97 Oximetry 04/13/19 04/13/19 04/13/19 06:50 07:00 07:10 Temperature Pulse Rate 61 62 61 Pulse Rate [ From Monitor] Respiratory 13 16 17 Rate Blood Pressure 116/61 105/44 105/44 O2 Sat by Pulse 99 94 97 Oximetry 04/13/19 04/13/19 04/13/19 07:20 07:30 08:00 Temperature 98.3 F Pulse Rate 63 62 65 Pulse Rate [ From Monitor] Respiratory 14 17 12 Rate Blood Pressure 105/44 105/44 117/57 O2 Sat by Pulse 98 99 100 Oximetry 04/13/19 08:30 Temperature Pulse Rate 57 L Pulse Rate [ From Monitor] Respiratory 10 L Rate Blood Pressure 117/57 O2 Sat by Pulse 97 Oximetry - General physical appearance no distress, no pain - Eyes normal occular movement - Respiratory normal expansion, normal respiratory effort - Abdomen soft, tender (in upper abd - mild), not distended, not guarding, not rigid, not wound, not surgical scars - Integumentary no rash, no growths, no abnormal pigmentation - Psychiatric oriented to time, oriented to person, oriented to place, speech is normal, memory intact - Labs 04/13/19 05:26 04/13/19 05:26 Diabetes panel 04/13/19 Range/Units 05:26 Sodium 140 (137-145) mmol/L Potassium 4.5 (3.6-5.0) mmol/L Chloride 110.4 H (98-107) mmol/L Carbon Dioxide 22 (22-30) mmol/L BUN 21 H (9-20) mg/dL Creatinine 0.8 (0.8-1.5) mg/dL Glucose 146 H (75-100) mg/dL Calcium 8.1 L (8.4-10.2) mg/dL Calcium panel 04/13/19 Range/Units 05:26 Calcium 8.1 L (8.4-10.2) mg/dL Pituitary panel 04/13/19 Range/Units 05:26 Sodium 140 (137-145) mmol/L Potassium 4.5 (3.6-5.0) mmol/L Chloride 110.4 H (98-107) mmol/L Carbon Dioxide 22 (22-30) mmol/L BUN 21 H (9-20) mg/dL Creatinine 0.8 (0.8-1.5) mg/dL Glucose 146 H (75-100) mg/dL Calcium 8.1 L (8.4-10.2) mg/dL Adrenal panel 07/03/19 Range/Units 05:26 Sodium 140 (137-145) mmol/L Potassium 4.5 (3.6-5.0) mmol/L Chloride 110.4 H (98-107) mmol/L Carbon Dioxide 22 (22-30) mmol/L BUN 21 H (9-20) mg/dL Creatinine 0.8 (0.8-1.5) mg/dL Glucose 146 H (75-100) mg/dL Calcium 8.1 L (8.4-10.2) mg/dL
[2019-04-13] MEDS ORDERED: MORPHINE IV PRN (10:50)
--- NOTE | 2019-04-13 11:43 | Gastroenterology Progress Note ---
Assessment and Plan 1.GI bleeding (hematochezia/melena) 2.H/o recently diagnosed stomach CA at [facility] per pt report (records unavailable) 3.H/o cirrhosis/hepatitis C (no prior tx) 4.abdominal pain 5.liver mass seen on CT -H/H 8.3/23.6-[id number] to monitor H/H and transfuse as needed -hold blood thinning medications -LFTs WNL; AFP pending -abd CT showed 2 enhancing masses in the liver (hemangiomas vs metastases), cirrhosis, cholelithiasis (no acute cholecystitis), and constipation -bloody BM overnight but no active signs of bleeding this am per nursing- currently HD stable -s/p EGD yesterday that showed: 1. A diffuse mass-like friable circumferential lesion in the mid to distal body extending up to the fundus with incomplete visualization due to difficulty distending the stomach. In the distal portion of the mass lesion, there was a partially visualized cratered ulcer without bleeding stigmata. Bx obtained from the mass lesion. 2. No obvious gastric or esophageal varices. 3. A small hiatal hernia. 4. Normal duodenum. -okay for clear liquids -d/c octreotide drip (no varices noted upon EGD) -continue PPI -continue supportive care -oncology consult pending -surgery following with recommendations for patient to be transferred to a tertiary center where there is surgical oncology Subjective Date of service: 04/13/19 Principal diagnosis: GI bleed Interval history: Patient resting in bed this am w/o acute distress. Reports BM overnight with blood but states he feels like the bleeding has slowed down. No active signs of bleeding this am per nursing. Has continued abd pain. No N/V. Objective - Constitutional Vitals: Temp Pulse Resp BP Pulse Ox 98.3 F 66 10 L 112/48 100 04/13/19 08:00 04/13/19 10:00 04/13/19 10:00 04/13/19 10:00 04/13/19 09:30 General appearance: no acute distress - EENT Eyes: PERRL, EOM intact ENT: hearing intact - Respiratory Respiratory effort: normal - Cardiovascular Rhythm: regular - Gastrointestinal General gastrointestinal: Present: soft, tender, non-distended, normal bowel sounds - Neurologic Neurological: alert and oriented x3 - Labs CBC & Chem 7: 04/13/19 05:26 07/03/19 05:26 Labs: Laboratory Results - last 24 hr 04/12/19 04/12/19 04/12/19 12:08 16:45 16:45 WBC RBC Hgb 8.4 L Hct 23.8 L MCV MCH MCHC RDW Plt Count Lymph % (Auto) Whitman % (Auto) Eos % (Auto) Baso % (Auto) Lymph # Whitman # Eos # Baso # Seg Neutrophils % Seg Neutrophils # PT INR Sodium Potassium Chloride Carbon Dioxide Anion Gap BUN Creatinine Estimated GFR BUN/Creatinine Ratio Glucose POC Glucose 128 H Calcium Free T4 Blood Type A NEGATIVE Antibody Screen Negative 04/12/19 04/12/19 04/12/19 16:45 17:21 21:07 WBC RBC Hgb 9.1 L Hct 25.0 L MCV MCH MCHC RDW Plt Count Lymph % (Auto) Whitman % (Auto) Eos % (Auto) Baso % (Auto) Lymph # Whitman # Eos # Baso # Seg Neutrophils % Seg Neutrophils # PT INR Sodium Potassium Chloride Carbon Dioxide Anion Gap BUN Creatinine Estimated GFR BUN/Creatinine Ratio Glucose POC Glucose 141 H Calcium Free T4 1.46 Blood Type Antibody Screen 04/12/19 04/13/19 04/13/19 23:48 05:26 05:26 WBC 5.2 RBC 2.73 L Hgb 8.3 L Hct 23.8 L MCV 87 MCH 31 MCHC 35 H RDW 13.2 Plt Count 138 L Lymph % (Auto) 26.1 Whitman % (Auto) 7.8 H Eos % (Auto) 5.6 H Baso % (Auto) 1.3 Lymph # 1.3 Whitman # 0.4 Eos # 0.3 Baso # 0.1 Seg Neutrophils % 59.2 Seg Neutrophils # 3.0 PT 14.7 INR 1.18 H Sodium Potassium Chloride Carbon Dioxide Anion Gap BUN Creatinine Estimated GFR BUN/Creatinine Ratio Glucose POC Glucose 180 H Calcium Free T4 Blood Type Antibody Screen 04/13/19 04/13/19 05:26 05:53 WBC RBC Hgb Hct MCV MCH MCHC RDW Plt Count Lymph % (Auto) Whitman % (Auto) Eos % (Auto) Baso % (Auto) Lymph # Whitman # Eos # Baso # Seg Neutrophils % Seg Neutrophils # PT INR Sodium 140 Potassium 4.5 Chloride 110.4 H Carbon Dioxide 22 Anion Gap 12 BUN 21 H Creatinine 0.8 Estimated GFR > 60 BUN/Creatinine Ratio 26 Glucose 146 H POC Glucose 155 H Calcium 8.1 L Free T4 Blood Type Antibody Screen
[2019-04-13] MEDS: IMDUR PO SCH (13:21)
[2019-04-13] MEDS: COREG PO SCH ×2 (13:21→22:29)
[2019-04-13] MEDS: RENVELA PO SCH ×3 (13:22→18:39)
[2019-04-13] MEDS: VITAMIN B-1 PO SCH (13:22)
[2019-04-13] MEDS: FOLVITE PO SCH (13:22)
[2019-04-13] MEDS: SODIUM CHLORIDE FLUSH SYRINGE 10 ML IV SCH ×2 (13:23→22:28)
[2019-04-13] MEDS: Centrum Liq PO SCH (13:23)
[2019-04-13] MEDS: SandoSTATIN 500 MCG in NACL 0.9% 100 ML IV SCH (13:25)
[2019-04-13 16:46] LABS: Hematocrit 23.6 % (35.5-45.6); Hemoglobin 8.2 gm/dl (11.8-15.2)
[2019-04-13] MEDS: PRAVACHOL PO SCH (22:29)
[2019-04-13] MEDS: SINEquan PO SCH (22:42)
[2019-04-13 23:53] LABS: Hematocrit 23.5 % (35.5-45.6); Hemoglobin 8.2 gm/dl (11.8-15.2)
[2019-04-14] MEDS: MORPHINE IV PRN ×6 (02:35→23:05)
[2019-04-14] MEDS: D5NS 1,000 ML IV SCH ×3 (02:37→23:13)
[2019-04-14 05:50] LABS: Hematocrit 24.1 % (35.5-45.6); Hemoglobin 8.3 gm/dl (11.8-15.2)
[2019-04-14] MEDS: SandoSTATIN 500 MCG in NACL 0.9% 100 ML IV SCH (06:38)
--- NOTE | 2019-04-14 07:58 | Progress Note ---
Assessment and Plan Assessment and plan: Acute Rectal Bleeding - in this pt with a hx of Stomach Cancer - stable H/H upon admission.Per ED physician, pt had gross blood in his rectal vault - GI and Surgeon following - PPI IV BID for now. - EGD done 04/12 revealed gastric mass,ulcer -Discussed with GI, Oncology and Surgeon H/H has been stable Gastric cancer diagnosed at [facility], as per patient Records requested not available yet Discussed with Dr. Munroe, Oncology - he is considering liver biopsy for 2 liver lesions and consulting Radiation oncology Discussed with patient. he states [facility] was working on arrangements for treatment of gastric cancer and last communication was last week Liver lesions,2 poss liver biopsy as per Oncology Hyperkalemia resolved CAD Stable No chest pain Bilateral Calcified Pleural Plaques - possible Asbetos exposure - pt told about his continued surveillance with his oncologist Subtherapeutic INR - at 1.13 -- continue to hold Warfarin given rectal bleeding. Debility - underlying malignancy - engage in PT/OT SCD/PPI History Interval history: patient presented with bloody stools had small amount blood in stool this morning Hospitalist Physical - Physical exam Narrative exam: Gen: Not in acute distress, lying in bed HEENT: Normocephalic, atraumatic Neck: supple, no JVD Heart: S1 and S2 regular, no murmurs, rubs or gallop Lungs: Clear, no crackles, no wheeze Abd: soft, tender epigastric region, non distended, normal BS Ext: No edema, no clubbing, no cyanosis, Neuro: Awake,alert, oriented,moves all ext, - Constitutional Vitals: Temp Pulse Resp BP Pulse Ox 97.4 F L 57 L 16 98/56 99 04/14/19 04:00 04/14/19 06:30 04/14/19 06:30 04/14/19 06:30 04/14/19 06:30 General appearance: Present: no acute distress Results - Labs CBC & Chem 7: 04/14/19 05:22 04/13/19 05:26 Labs: Laboratory Last Values WBC 5.2 K/mm3 (4.5-11.0) 04/13/19 05:26 RBC 2.73 M/mm3 (3.65-5.03) L 04/13/19 05:26 Hgb 8.3 gm/dl (11.8-15.2) L 04/14/19 05:22 Hct 24.1 % (35.5-45.6) L 04/14/19 05:22 MCV 87 fl (84-94) 04/13/19 05:26 MCH 31 pg (28-32) 04/13/19 05:26 MCHC 35 % (32-34) H 04/13/19 05:26 RDW 13.2 % (13.2-15.2) 04/13/19 05:26 Plt Count 138 K/mm3 (140-440) L 04/13/19 05:26 Lymph % (Auto) 26.1 % (13.4-35.0) 04/13/19 05:26 Mcdonald % (Auto) 7.8 % (0.0-7.3) H 04/13/19 05:26 Eos % (Auto) 5.6 % (0.0-4.3) H 04/13/19 05:26 Baso % (Auto) 1.3 % (0.0-1.8) 04/13/19 05:26 Lymph # 1.3 K/mm3 (1.2-5.4) 04/13/19 05:26 Mcdonald # 0.4 K/mm3 (0.0-0.8) 04/13/19 05:26 Eos # 0.3 K/mm3 (0.0-0.4) 04/13/19 05:26 Baso # 0.1 K/mm3 (0.0-0.1) 04/13/19 05:26 Seg Neutrophils % 59.2 % (40.0-70.0) 04/13/19 05:26 Seg Neutrophils # 3.0 K/mm3 (1.8-7.7) 04/13/19 05:26 PT 14.7 Sec. (12.2-14.9) 04/13/19 05:26 INR 1.18 (0.87-1.13) H 04/13/19 05:26 APTT 27.5 Sec. (24.2-36.6) 04/11/19 20:03 345.5 ng/mlDDU (0-234) H 04/11/19 20:03 Sodium 140 mmol/L (137-145) 04/13/19 05:26 Potassium 4.5 mmol/L (3.6-5.0) 04/13/19 05:26 Chloride 110.4 mmol/L (98-107) H 04/13/19 05:26 Carbon Dioxide 22 mmol/L (22-30) 04/13/19 05:26 12 mmol/L 04/13/19 05:26 BUN 21 mg/dL (9-20) H 04/13/19 05:26 0.8 mg/dL (0.8-1.5) 04/13/19 05:26 Estimated GFR > 60 ml/min 04/13/19 05:26 26 % 04/13/19 05:26 Glucose 146 mg/dL (75-100) H 04/13/19 05:26 POC Glucose 118 (70-105) H 04/13/19 18:09 Calcium 8.1 mg/dL (8.4-10.2) L 04/13/19 05:26 0.70 mg/dL (0.1-1.2) 04/11/19 20:03 0.2 mg/dL (0-0.2) 04/11/19 20:03 0.5 mg/dL 04/11/19 20:03 AST 14 units/L (5-40) 04/11/19 20:03 ALT 9 units/L (7-56) 04/11/19 20:03 85 units/L (35-129) 04/11/19 20:03 < 0.010 ng/mL (0.00-0.029) 04/11/19 20:45 6.8 g/dL (6.3-8.2) 04/11/19 20:03 3.1 g/dL (3.9-5) L 04/11/19 20:03 0.8 % 04/11/19 20:03 13 units/L (13-60) 04/11/19 20:03 TSH 0.050 mlU/mL (0.270-4.200) L 04/11/19 20:45 Free T4 1.46 ng/dL (0.76-1.46) 04/12/19 16:45 Blood Type A NEGATIVE 04/12/19 16:45 Antibody Screen Negative 04/12/19 16:45 Active Medications - Current Medications Current Medications: Generic Name Dose Route Start Last Admin Trade Name Freq PRN Reason Stop Dose Admin Acetaminophen 650 mg 04/12/19 05:35 Tylenol PO Q4H PRN Pain MILD(1-3)/Fever >100.5/VALENTINO Alprazolam 1 mg 04/12/19 05:39 Xanax PO QHS PRN Anxiety Bisacodyl 10 mg 04/12/19 05:35 Dulcolax [place] QDAY PRN Constipation unrelieved by MOM Carvedilol 3.125 mg 04/12/19 10:00 04/13/19 22:29 Coreg PO 3.125 mg BID RENITA Administration Doxepin HCl 100 mg 04/13/19 23:30 04/13/19 22:42 Sinequan PO 100 mg QHS RENITA Administration Folic Acid 1 mg 04/12/19 10:00 04/13/19 13:22 Folvite PO 1 mg QDAY RENITA Administration Dextrose/Sodium Chloride 1,000 mls @ 100 mls/hr 04/12/19 06:00 04/14/19 02:37 D5ns IV 100 mls/hr DIRECT RENITA Administration Octreotide Acetate 500 mcg/ 101 mls @ 5.05 mls/hr 04/12/19 12:00 04/14/19 06:38 Sodium Chloride IV 25 mcg/hr TITR RENITA 5.05 mls/hr Administration Protocol 25 MCG/HR Pantoprazole Sodium 80 mg/ 100 mls @ 10 mls/hr 04/12/19 12:00 04/13/19 22:28 Sodium Chloride IV 8 mg/hr DIRECT RENITA 10 mls/hr Administration 8 MG/HR Sodium Chloride 1,000 mls @ 50 mls/hr 04/12/19 13:00 04/12/19 13:07 Nacl 0.9% 1000 Ml IV 50 mls/hr DIRECT RENITA Administration Insulin Human Isoph/Insulin Regular 15 unit 04/12/19 08:00 04/13/19 18:38 Humulin 70/30 SUB-Q Not Given BIDDIAB RENITA Isosorbide Mononitrate 30 mg 04/12/19 10:00 04/13/19 13:21 Imdur PO Not Given QDAY RENITA Morphine Sulfate 4 mg 04/13/19 11:30 04/14/19 06:32 Morphine IV 4 mg Q4H PRN Administration Pain, Moderate (4-6) Multivitamins 5 ml 04/12/19 10:00 04/13/19 13:23 Centrum Liq PO 5 ml QDAY RENITA Administration Ondansetron HCl 4 mg 04/12/19 05:35 Zofran IV Q8H PRN Nausea And Vomiting Pravastatin Sodium 40 mg 04/12/19 22:00 04/13/19 22:29 Pravachol PO 40 mg QHS RENITA Administration Sevelamer Carbonate 1,600 mg 04/12/19 08:00 04/13/19 18:39 Renvela PO Not Given TIDWM RENITA Sodium Chloride 10 ml 04/12/19 10:00 04/13/19 22:28 Sodium Chloride Flush Syringe 10 Ml IV 10 ml BID RENITA Administration Sodium Chloride 10 ml 04/12/19 05:35 Sodium Chloride Flush Syringe 10 Ml IV PRN PRN LINE FLUSH Thiamine HCl 100 mg 04/12/19 10:00 04/13/19 13:22 Vitamin B-1 PO 100 mg QDAY RENITA Administration Nutrition/Malnutrition Assess - Dietary Evaluation Nutrition/Malnutrition Findings: Nutrition Notes Start: 04/13/19 16:59 Freq: Status: Active Protocol: Document 04/13/19 16:59 RM (Rec: 04/13/19 17:11 RM [id number]) Nutrition Notes Need for Assessment generated from: MST Initial or Follow up Assessment Current Diagnosis Coronary Artery Disease Other Pertinent Diagnosis Hx stomach CA, Abdominal pain, GI bleed Current Diet clear liquid Labs/Tests Reviewed Pertinent Medications Reviewed Height 6 ft Weight 68.9 kg Usual Body Weight 109.09 kg Alder Body Weight (kg) 80.90 BMI 20.6 Weight change and time frame 36.8% wt loss X 2 years Subjective/Other Information Screened for malnutrition. Pt stated that [employer] his appetite was poor and that he ate 1-2 small meals daily X 6 months. Stated that his appetite is poor now and that he has only drunk juice and eaten some jello. Admitted to N/D. Stated UBW was 240 lbs 2 years ago. No temporal or orbital wasting . Burn Absent Trauma Absent #2 Nutrition Diagnosis Inadequate oral intake Etiology Hx stomach CA, abdominal pain As Evidenced by Signs and Symptoms 36.8% wt loss X 2 years, pt statement that he has only drunk juice and eaten some jello #1 Nutrition Diagnosis Underweight Comments: for older adult Etiology Hx stomach CA, abdominal pain As Evidenced by Signs and Symptoms BMI 20.6 Is patient on ventilator? No Is Patient Ambulatory and/or Out of Bed No REE-([facility]-confined to bed) 0429.727 Calculation Used for Recommendations [facility] Additional Notes Protein Needs: 69-83g (1-1.2g/ kg) Fluid Needs: 1 ml/kcal Nutrition Intervention Change Diet Order: Advance diet when medically able Add Supplement/Snack (indicate name/kcal Ensure Clear 1 daily /protein ) Provides kCal: 240 Provides Protein (gm) 8 Goal #1 Diet advancement Anticipated Discharge Needs: Unable to determine at this time Follow-Up By: 04/15/19 Additional Comments Follow for PO and ONS intakes
[2019-04-14] MEDS: RENVELA PO SCH ×3 (08:16→17:30)
[2019-04-14] MEDS: COREG PO SCH ×2 (09:49→21:49)
[2019-04-14] MEDS: Centrum Liq PO SCH (09:49)
[2019-04-14] MEDS: FOLVITE PO SCH (09:50)
[2019-04-14] MEDS: IMDUR PO SCH (09:50)
[2019-04-14] MEDS: SODIUM CHLORIDE FLUSH SYRINGE 10 ML IV SCH ×2 (09:50→21:50)
[2019-04-14] MEDS: VITAMIN B-1 PO SCH (09:51)
--- NOTE | 2019-04-14 10:12 | Event Note ---
Date: 04/13/19 [id number]
--- NOTE | 2019-04-14 11:49 | Progress Note ---
Assessment and Plan - Patient Problems (1) GI bleed Current Visit: Yes Status: Acute Qualifiers: GI bleed type/associated pathology: gastric ulcer Qualified Code(s): K25.4 - Chronic or unspecified gastric ulcer with hemorrhage Plan to address problem: Pt stable. Hgb stable. No transfusions o/n. Ok to continue clear liquid diet. Will probably take 3-5 days for blood in intestines to clear. (2) Gastric cancer Current Visit: Yes Status: Acute Qualifiers: Malignant neoplasm of stomach location: overlapping locations Qualified Code(s): C16.8 - Malignant neoplasm of overlapping sites of stomach Plan to address problem: Patient appears to have extensive cancer based on his EGD report and his CT scan. Patient is a high risk surgical candidate based on his comorbidities and his extensive varices. I'm concerned he also has metastatic disease. This would be best managed by a tertiary center with surgical oncology. I would recommend that we hold off on further diagnostic studies such as biopsies as we should not be the center that manages this malignancy. If we want to confirm the diagnosis, I would suggest that we get the records from the [place]. If records unavailable, would transfer him to [place] so they can continue his treatment. We should be working on transfer to a tertiary center while the patient is stable. Please call with questions. Time=10min Subjective Date of service: 04/14/19 Patient Reports: Positive: no new complaints, blood in stool, other (no issues o/n) Objective Vital Signs - 12hr 04/14/19 04/14/19 04/14/19 00:00 00:30 01:00 Temperature 98.2 F Pulse Rate 63 63 56 L Pulse Rate [ From Monitor] Respiratory 14 16 15 Rate Blood Pressure 112/53 112/53 111/49 O2 Sat by Pulse 98 97 98 Oximetry 04/14/19 04/14/19 04/14/19 01:30 02:00 02:30 Temperature Pulse Rate 53 L 54 L 57 L Pulse Rate [ From Monitor] Respiratory 15 15 11 L Rate Blood Pressure 111/49 114/55 O2 Sat by Pulse 100 99 100 Oximetry 04/14/19 04/14/19 04/14/19 03:00 03:30 04:00 Temperature 97.4 F L Pulse Rate 52 L 51 L 54 L Pulse Rate [ From Monitor] Respiratory 13 14 14 Rate Blood Pressure 110/56 110/56 102/51 O2 Sat by Pulse 100 100 100 Oximetry 04/14/19 04/14/19 04/14/19 04:30 05:00 05:30 Temperature Pulse Rate 52 L 60 56 L Pulse Rate [ From Monitor] Respiratory 13 13 15 Rate Blood Pressure 102/51 113/47 113/47 O2 Sat by Pulse 100 99 100 Oximetry 04/14/19 04/14/19 04/14/19 06:00 06:30 07:00 Temperature Pulse Rate 65 57 L 57 L Pulse Rate [ From Monitor] Respiratory 10 L 16 13 Rate Blood Pressure 113/47 98/56 120/41 O2 Sat by Pulse 100 99 100 Oximetry 04/14/19 04/14/19 04/14/19 07:30 08:00 08:30 Temperature 97.6 F Pulse Rate 59 L 65 64 Pulse Rate [ 77 From Monitor] Respiratory 11 L 18 15 Rate Blood Pressure 120/41 126/35 126/35 O2 Sat by Pulse 98 99 100 Oximetry 04/14/19 04/14/19 04/14/19 09:00 09:30 09:49 Temperature Pulse Rate 64 59 L 63 Pulse Rate [ From Monitor] Respiratory 11 L 10 L Rate Blood Pressure 115/46 115/46 115/46 O2 Sat by Pulse 100 100 Oximetry 04/14/19 04/14/19 04/14/19 09:50 10:00 10:30 Temperature Pulse Rate 62 58 L 66 Pulse Rate [ From Monitor] Respiratory 14 14 Rate Blood Pressure 115/46 125/47 125/47 O2 Sat by Pulse 99 99 Oximetry 04/14/19 11:00 Temperature Pulse Rate 63 Pulse Rate [ From Monitor] Respiratory 14 Rate Blood Pressure 116/59 O2 Sat by Pulse 96 Oximetry - General physical appearance no distress, no pain, other (resting comfortably) - Respiratory normal expansion, normal respiratory effort - Labs 04/14/19 05:22 04/13/19 05:26
[2019-04-14] MEDS: PROTONIX 80 MG in NACL 0.9% 100 ML IV SCH ×2 (13:23→23:41)
--- NOTE | 2019-04-14 18:02 | Progress Note ---
Assessment and Plan 1. Gastric cancer - in proximal body. Apparently well-worked up at [facility]. Pt notes he has an Oncologist, etc, there and is to have Port placed for chemorx, etc. - please transfer to [facility] as inpatient, or outpatient, to continue evaluation and workup. 2. GI bleed - H/H stable. Bleed due to cancer. - continue PPI - needs to get started ALBERTO on chemorx and possible XRT, at [facility]. Subjective Date of service: 04/14/19 Principal diagnosis: GI bleed Interval history: Pt complains of chronic abd and diffuse pain. Otherwise well. No indira GI bleed. Objective - Constitutional Vitals: Vital Signs - 12hr 04/14/19 04/14/19 04/14/19 06:30 07:00 07:30 Temperature Pulse Rate 57 L 57 L 59 L Pulse Rate [ From Monitor] Respiratory 16 13 11 L Rate Blood Pressure 98/56 120/41 120/41 O2 Sat by Pulse 99 100 98 Oximetry 04/14/19 04/14/19 04/14/19 08:00 08:30 09:00 Temperature 97.6 F Pulse Rate 65 64 64 Pulse Rate [ 77 From Monitor] Respiratory 18 15 11 L Rate Blood Pressure 126/35 126/35 115/46 O2 Sat by Pulse 99 100 100 Oximetry 04/14/19 04/14/19 04/14/19 09:30 09:49 09:50 Temperature Pulse Rate 59 L 63 62 Pulse Rate [ From Monitor] Respiratory 10 L Rate Blood Pressure 115/46 115/46 115/46 O2 Sat by Pulse 100 Oximetry 04/14/19 04/14/19 04/14/19 10:00 10:30 11:00 Temperature Pulse Rate 58 L 66 63 Pulse Rate [ From Monitor] Respiratory 14 14 14 Rate Blood Pressure 125/47 125/47 116/59 O2 Sat by Pulse 99 99 96 Oximetry 04/14/19 04/14/19 04/14/19 11:30 12:00 12:30 Temperature 98 F Pulse Rate 62 79 62 Pulse Rate [ 64 From Monitor] Respiratory 13 24 13 Rate Blood Pressure 116/59 104/56 104/56 O2 Sat by Pulse 98 96 100 Oximetry 04/14/19 04/14/19 04/14/19 13:00 13:30 14:00 Temperature Pulse Rate 66 62 66 Pulse Rate [ From Monitor] Respiratory 12 11 L 13 Rate Blood Pressure 104/56 104/56 104/56 O2 Sat by Pulse 99 98 98 Oximetry 04/14/19 04/14/19 04/14/19 14:30 15:00 15:30 Temperature Pulse Rate 69 65 72 Pulse Rate [ From Monitor] Respiratory 13 16 17 Rate Blood Pressure 104/56 104/56 104/56 O2 Sat by Pulse 99 99 97 Oximetry 04/14/19 16:00 Temperature 98.5 F Pulse Rate Pulse Rate [ From Monitor] Respiratory Rate Blood Pressure O2 Sat by Pulse Oximetry General appearance: Present: no acute distress, cachectic - EENT Eyes: PERRL, EOM intact ENT: hearing intact - Respiratory Respiratory effort: normal - Gastrointestinal General gastrointestinal: Present: soft, non-tender - Labs CBC & Chem 7: 04/14/19 05:22 04/13/19 05:26 Labs: Abnormal lab results 04/13/19 04/13/19 04/13/19 Range/Units 18:09 23:25 23:36 Hgb 8.2 L (11.8-15.2) gm/dl Hct 23.5 L (35.5-45.6) % POC Glucose 118 H 167 H (70-105) 04/14/19 04/14/19 04/14/19 Range/Units 05:22 06:50 08:20 Hgb 8.3 L (11.8-15.2) gm/dl Hct 24.1 L (35.5-45.6) % POC Glucose 133 H 147 H (70-105) Medications & Allergies - Medications Allergies/Adverse Reactions: Allergies heparin Allergy (Severe, Verified 09/27/17 11:14) THROMBOCYTOPENIA HIT Home Medications: Home Medications Medication Instructions Recorded Confirmed Last Taken Type Aspirin [Aspirin BABY CHEW TAB] 81 mg PO QDAY #30 tab.chew 01/29/17 04/11/19 09/28/17 Rx Carvedilol [Coreg] 3.125 mg PO BID #60 tablet 01/29/17 04/11/19 09/28/17 Rx Doxepin [SINEquan] 100 mg PO QHS capsule 01/29/17 04/11/19 09/28/17 Rx Folic Acid [Folvite] 1 mg PO QDAY #30 tablet 01/29/17 04/11/19 Unknown Rx Hypromellose [Isopto Tears 0.5%] 2 drops OU Q4H PRN #1 bottle 01/29/17 04/11/19 09/28/17 Rx Lisinopril [Zestril TAB] 2.5 mg PO QDAY #15 tablet 01/29/17 04/11/19 09/28/17 Rx Pantoprazole [Protonix TAB] 20 mg PO QDAY #30 tablet. 01/29/17 04/11/19 Rx ALPRAZolam [Xanax TAB] 1 mg PO QHS PRN #30 tablet 10/01/17 04/11/19 Unknown Rx Insulin Aspart Prot/Aspart(Nf) 15 units SQ BID #2 vial 10/01/17 04/11/19 Unknown Rx [NovoLOG Mix 70/30 VIAL] Multivitamins Liq [Multiple 5 ml PO QDAY #150 oral.liqd 10/01/17 04/11/19 Unknown Rx Vitamin Liq (Theragran)] Sevelamer Carbonate [Renvela] 1,600 mg PO TIDWM #90 tablet 10/01/17 04/11/19 Unknown Rx Simvastatin (Nf) [Zocor TAB] 20 mg PO QHS #30 tablet 10/01/17 04/11/19 Unknown Rx Thiamine [Vitamin B-1] 100 mg PO QDAY #30 tablet 10/01/17 04/11/19 Unknown Rx ISOSORBIDE MONOnitrate [Imdur ER] 30 mg PO QDAY tablet 01/07/18 04/11/19 Unknown Rx Insulin NPH/Regular [NovoLIN 70/30] 15 unit SUB-Q BIDDIAB units 01/07/18 04/11/19 Unknown Rx Warfarin [Coumadin] 3 mg PO DAILY@1700 #30 tablet 01/07/18 04/11/19 Unknown Rx Active Medications: Generic Name Dose Route Start Last Admin Trade Name Freq PRN Reason Stop Dose Admin Acetaminophen 650 mg 04/12/19 05:35 Tylenol PO Q4H PRN Pain MILD(1-3)/Fever >100.5/VALENTINO Alprazolam 1 mg 04/12/19 05:39 Xanax PO QHS PRN Anxiety Bisacodyl 10 mg 04/12/19 05:35 Dulcolax [place] QDAY PRN Constipation unrelieved by MOM Carvedilol 3.125 mg 04/12/19 10:00 04/14/19 09:49 Coreg PO 3.125 mg BID RENITA Administration Doxepin HCl 100 mg 04/13/19 23:30 04/13/19 22:42 Sinequan PO 100 mg QHS RENITA Administration Folic Acid 1 mg 04/12/19 10:00 04/14/19 09:50 Folvite PO 1 mg QDAY RENITA Administration Dextrose/Sodium Chloride 1,000 mls @ 100 mls/hr 04/12/19 06:00 04/14/19 13:23 D5ns IV 100 mls/hr DIRECT RENITA Administration Octreotide Acetate 500 mcg/ 101 mls @ 5.05 mls/hr 04/12/19 12:00 04/14/19 06:38 Sodium Chloride IV 25 mcg/hr TITR RENITA 5.05 mls/hr Administration Protocol 25 MCG/HR Pantoprazole Sodium 80 mg/ 100 mls @ 10 mls/hr 04/12/19 12:00 04/14/19 13:23 Sodium Chloride IV 8 mg/hr DIRECT RENITA 10 mls/hr Administration 8 MG/HR Sodium Chloride 1,000 mls @ 50 mls/hr 04/12/19 13:00 04/12/19 13:07 Nacl 0.9% 1000 Ml IV 50 mls/hr DIRECT RENITA Administration Insulin Human Isoph/Insulin Regular 15 unit 04/12/19 08:00 04/14/19 08:18 Humulin 70/30 SUB-Q 15 unit BIDDIAB RENITA Administration Isosorbide Mononitrate 30 mg 04/12/19 10:00 04/14/19 09:50 Imdur PO 30 mg QDAY RENITA Administration Morphine Sulfate 4 mg 04/13/19 11:30 04/14/19 14:27 Morphine IV 4 mg Q4H PRN Administration Pain, Moderate (4-6) Multivitamins 5 ml 04/12/19 10:00 04/14/19 09:49 Centrum Liq PO 5 ml QDAY RENITA Administration Ondansetron HCl 4 mg 04/12/19 05:35 Zofran IV Q8H PRN Nausea And Vomiting Pravastatin Sodium 40 mg 04/12/19 22:00 04/13/19 22:29 Pravachol PO 40 mg QHS RENITA Administration Sevelamer Carbonate 1,600 mg 04/12/19 08:00 04/14/19 12:45 Renvela PO 1,600 mg TIDWM RENITA Administration Sodium Chloride 10 ml 04/12/19 10:00 04/14/19 09:50 Sodium Chloride Flush Syringe 10 Ml IV 10 ml BID RENITA Administration Sodium Chloride 10 ml 04/12/19 05:35 Sodium Chloride Flush Syringe 10 Ml IV PRN PRN LINE FLUSH Thiamine HCl 100 mg 04/12/19 10:00 04/14/19 09:51 Vitamin B-1 PO 100 mg QDAY RENITA Administration
[2019-04-14] MEDS: PRAVACHOL PO SCH (21:49)
[2019-04-14] MEDS: SINEquan PO SCH (21:49)
[2019-04-14] MEDS: XANAX PO PRN (23:10)
[2019-04-15] MEDS: SandoSTATIN 500 MCG in NACL 0.9% 100 ML IV SCH (02:12)
--- NOTE | 2019-04-15 02:54 | Consultation ---
REFERRED BY: Dr. Yusuf and/Dr. Driver. REASON FOR CONSULTATION: Gastric cancer. HISTORY OF PRESENT ILLNESS: I saw the patient, a 64-year-old patient from [place] in the medical floor. The patient has a history of stomach cancer. The patient states he was in [place] where it was diagnosed. He has been having abdominal pain and rectal bleed. The [facility] [place] There was a plan for followup. He came to the hospital because of the above symptoms. He has not as yet started treatment for his gastric cancer. There was a discussion for radiation and chemotherapy. History of pain for 6 months, history of loss of weight of 30-40 pounds in 4 months' time. During this admission, the patient underwent EGD, which showed diffuse gastric mass-like lesion with ulcer, nonbleeding. Radiology done during this admission showed 2 liver lesions, hemangioma versus mets. One lesion is 2.5 cm in left lobe anteriorly and second is 1.2 cm in right hepatic lobe. There is slight nodularity to the liver, which could suggest cirrhosis. CT chest, there is no PE. Condition at this time, no headache, no visual disturbances, no ear discharge. Abdominal pain present. Rectal bleed present. No hematemesis. No fever. PAST MEDICAL HISTORY: MIs, coronary artery disease, COPD, diabetes, heart failure, hepatitis C, hyperlipidemia. PAST SURGICAL HISTORY: Coronary stent. SOCIAL HISTORY: Lives with family members. FAMILY HISTORY: Noncontributory. ALLERGIES: HEPARIN causes low platelets. HOME MEDICATIONS: Include aspirin, Coreg, folic acid, insulin, warfarin (reason not clear), thiamine, simvastatin. PHYSICAL EXAMINATION: VITAL SIGNS: Temperature 98.4, pulse 66, respirations 12, BP 118/42. HEENT: Pallor present. No icterus. NECK: No neck lymph nodes. HEART: S1, S2. LUNGS: Clear to auscultation anteriorly. ABDOMEN: Soft. EXTREMITIES: No calf tenderness. NEUROLOGIC: Alert, awake. LABORATORY DATA: White cell 5, hemoglobin 8.3, MCV 87, platelet 138. PT, PTT is normal. Potassium 4.5, creatinine 0.8, calcium 8.1, bilirubin 0.7. B12 of 451. Folate more than 20. ASSESSMENT AND PLAN: 1. History of gastric cancer, EGD showing gastric mass. 2. CT shows 2 liver lesions with some nodularity. I discussed with the patient that this could be mets versus hemangioma. 3. Anemia. We will do investigations. 4. Thrombocytopenia, mentioned of possible cirrhosis versus other cause. 5. History of rectal bleed. 6. As per the patient, the [facility]. There was a discussion for chemoradiation, but the patient was not sure. 7. History of coronary artery disease. 8. History of loss of weight. 9. Home medications mentions warfarin, reason for its use is not clear. 10. We will look into Radiology to see if this is hemangioma or not. JOB# [id number] NM/NTS
[2019-04-15] MEDS: MORPHINE IV PRN ×4 (03:55→18:00)
[2019-04-15] MEDS: NACL 0.9% 1000 ML 1,000 ML IV SCH (05:19)
[2019-04-15 05:28] LABS: Basophils % (Auto) 1.2 % (0.0-1.8); Eosinophils # (Auto) 0.3 K/mm3 (0.0-0.4); Eosinophils % (Auto) 7.6 % (0.0-4.3); Hematocrit 23.5 % (35.5-45.6); Hemoglobin 8.2 gm/dl (11.8-15.2); Mean Corpuscular HGB Conc 35 % (32-34); Mean Corpuscular Volume 88 fl (84-94); Monocytes # (Auto) 0.3 K/mm3 (0.0-0.8); Monocytes % (Auto) 6.6 % (0.0-7.3); Platelet Count 155 K/mm3 (140-440); Red Blood Count 2.67 M/mm3 (3.65-5.03); Red Cell Distribution Width 13.3 % (13.2-15.2)
[2019-04-15 06:42] LABS: Iron 22 ug/dL (49-181); Total Iron Binding Capacity 211 mcg/dL (250-450)
--- NOTE | 2019-04-15 08:04 | Hem/Onc Progress Note ---
Assessment and Plan 1. History of gastric cancer, EGD showing gastric mass. 2. CT shows 2 liver lesions with some nodularity. I discussed with the patient that this could be mets versus hemangioma. 3. Anemia. We will follow. 4. Thrombocytopenia, mentioned of possible cirrhosis versus other cause. 5. History of rectal bleed. 6. As per the patient, the [facility] team has seen the patient. There was a discussion for chemoradiation, but the patient was not sure. 7. History of coronary artery disease. 8. History of loss of weight. 9. Home medications mentions warfarin, reason for its use is not clear. 10. ?Radiology to see if this is hemangioma or not. pt has f/u with [facility] egd path bx negative - Patient Problems (1) Gastric cancer Current Visit: Yes Status: Acute Qualifiers: Malignant neoplasm of stomach location: overlapping locations Qualified Code(s): C16.8 - Malignant neoplasm of overlapping sites of stomach Subjective Date of service: 04/15/19 Principal diagnosis: h/o gastric ca Interval history: no bleeding Objective - Exam Narrative Exam: Pain - pt not in distress General appearance no icterus Performance status limited self care Eyes - no icterus ENT - no thrush LNs cervical not palpable Neck - movement normal Respiratory Normal Breath sounds - CTA CVS S1 S2 + Extremities normal temperature General GI Soft Rectal deferred male - deferred Skin warm Musculoskeletal normal Neurologically AAOx3 - Constitutional Vitals: Last Vital Signs Temp 98.2 F 04/15/19 04:00 Pulse 68 04/15/19 07:00 Resp 14 04/15/19 07:00 BP 128/60 04/15/19 07:00 Pulse Ox 97 04/15/19 06:00 - Labs Lab Results: Laboratory Results - last 24 hr 04/13/19 04/14/19 04/14/19 23:36 06:50 08:20 WBC RBC Hgb Hct MCV MCH MCHC RDW Plt Count Lymph % (Auto) [place] % (Auto) Eos % (Auto) Baso % (Auto) Lymph # [place] # Eos # Baso # Seg Neutrophils % Seg Neutrophils # POC Glucose 167 H 133 H 147 H Iron TIBC Ferritin 04/14/19 04/14/19 04/15/19 17:10 23:27 04:42 WBC 4.0 L RBC 2.67 L Hgb 8.2 L Hct 23.5 L MCV 88 MCH 31 MCHC 35 H RDW 13.3 Plt Count 155 Lymph % (Auto) 26.0 [place] % (Auto) 6.6 Eos % (Auto) 7.6 H Baso % (Auto) 1.2 Lymph # 1.0 L [place] # 0.3 Eos # 0.3 Baso # 0.0 Seg Neutrophils % 58.6 Seg Neutrophils # 2.3 POC Glucose 84 93 Iron TIBC Ferritin 04/15/19 04/15/19 04/15/19 04:42 04:42 06:23 WBC RBC Hgb Hct MCV MCH MCHC RDW Plt Count Lymph % (Auto) [place] % (Auto) Eos % (Auto) Baso % (Auto) Lymph # [place] # Eos # Baso # Seg Neutrophils % Seg Neutrophils # POC Glucose 116 H Iron 22 L TIBC 211 L Ferritin 92.9 Medications & Allergies - Medications Allergies/Adverse Reactions: Allergies heparin Allergy (Severe, Verified 09/27/17 11:14) THROMBOCYTOPENIA HIT Home Medications: Home Medications Medication Instructions Recorded Confirmed Last Taken Type RX: Carvedilol [Coreg] 3.125 mg PO BID #60 tablet 01/29/17 04/11/19 09/28/17 Rx RX: Doxepin [SINEquan] 100 mg PO QHS capsule 01/29/17 04/11/19 09/28/17 Rx RX: Folic Acid [Folvite] 1 mg PO QDAY #30 tablet 01/29/17 04/11/19 Unknown Rx RX: Hypromellose [Isopto Tears 2 drops OU Q4H PRN #1 bottle 01/29/17 04/11/19 09/28/17 Rx 0.5%] RX: Lisinopril [Zestril TAB] 2.5 mg PO QDAY #15 tablet 01/29/17 04/11/19 09/28/17 Rx RX: ALPRAZolam [Xanax TAB] 1 mg PO QHS PRN #30 tablet 10/01/17 04/11/19 Unknown Rx RX: Insulin Aspart Prot/Aspart(Nf) 15 units SQ BID #2 vial 10/01/17 04/11/19 Unknown Rx [NovoLOG Mix 70/30 VIAL] RX: Multivitamins Liq [Multiple 5 ml PO QDAY #150 oral.liqd 10/01/17 04/11/19 Unknown Rx Vitamin Liq (Theragran)] RX: Sevelamer Carbonate [Renvela] 1,600 mg PO TIDWM #90 tablet 10/01/17 04/11/19 Unknown Rx RX: Simvastatin (Nf) [Zocor TAB] 20 mg PO QHS #30 tablet 10/01/17 04/11/19 Unknown Rx RX: Thiamine [Vitamin B-1] 100 mg PO QDAY #30 tablet 10/01/17 04/11/19 Unknown Rx RX: ISOSORBIDE MONOnitrate [Imdur 30 mg PO QDAY tablet 01/07/18 04/11/19 Unknown Rx ER] RX: Insulin NPH/Regular [NovoLIN 15 unit SUB-Q BIDDIAB units 01/07/18 04/11/19 Unknown Rx 70/30] Pantoprazole [Protonix] 40 mg PO BID #60 tablet 04/15/19 Unknown Rx oxyCODONE /ACETAMINOPHEN [Percocet 1 tab PO Q4HR PRN #20 tab 04/15/19 Unknown Rx 5/325] Active Medications: Generic Name Dose Route Start Last Admin Trade Name Freq PRN Reason Stop Dose Admin Acetaminophen 650 mg 04/12/19 05:35 Tylenol PO Q4H PRN Pain MILD(1-3)/Fever >100.5/VALENTINO Alprazolam 1 mg 04/12/19 05:39 04/14/19 23:10 Xanax PO 1 mg QHS PRN Administration Anxiety Bisacodyl 10 mg 04/12/19 05:35 Dulcolax [place] QDAY PRN Constipation unrelieved by MOM Carvedilol 3.125 mg 04/12/19 10:00 04/14/19 21:49 Coreg PO Not Given BID RENITA Doxepin HCl 100 mg 04/13/19 23:30 04/14/19 21:49 Sinequan PO 100 mg QHS RENITA Administration Folic Acid 1 mg 04/12/19 10:00 04/14/19 09:50 Folvite PO 1 mg QDAY RENITA Administration Dextrose/Sodium Chloride 1,000 mls @ 100 mls/hr 04/12/19 06:00 04/15/19 05:18 D5ns IV 0 mls/hr DIRECT RENITA Infusion Octreotide Acetate 500 mcg/ 101 mls @ 5.05 mls/hr 04/12/19 12:00 04/15/19 02:12 Sodium Chloride IV 25 mcg/hr TITR RENITA 5.05 mls/hr Administration Protocol 25 MCG/HR Pantoprazole Sodium 80 mg/ 100 mls @ 10 mls/hr 04/12/19 12:00 04/14/19 23:41 Sodium Chloride IV 8 mg/hr DIRECT RENITA 10 mls/hr Administration 8 MG/HR Sodium Chloride 1,000 mls @ 50 mls/hr 04/12/19 13:00 04/15/19 05:19 Nacl 0.9% 1000 Ml IV 50 mls/hr DIRECT RENITA Administration Insulin Human Isoph/Insulin Regular 15 unit 04/12/19 08:00 04/14/19 18:20 Humulin 70/30 SUB-Q 15 unit BIDDIAB RENITA Administration Isosorbide Mononitrate 30 mg 04/12/19 10:00 04/14/19 09:50 Imdur PO 30 mg QDAY RENITA Administration Morphine Sulfate 4 mg 04/13/19 11:30 04/15/19 07:34 Morphine IV 4 mg Q4H PRN Administration Pain, Moderate (4-6) Multivitamins 5 ml 04/12/19 10:00 04/14/19 09:49 Centrum Liq PO 5 ml QDAY RENITA Administration Ondansetron HCl 4 mg 04/12/19 05:35 04/14/19 18:20 Zofran IV 4 mg Q8H PRN Administration Nausea And Vomiting Pravastatin Sodium 40 mg 04/12/19 22:00 04/14/19 21:49 Pravachol PO 40 mg QHS RENITA Administration Sevelamer Carbonate 1,600 mg 04/12/19 08:00 04/14/19 17:30 Renvela PO 1,600 mg TIDWM RENITA Administration Sodium Chloride 10 ml 04/12/19 10:00 04/14/19 21:50 Sodium Chloride Flush Syringe 10 Ml IV 10 ml BID RENITA Administration Sodium Chloride 10 ml 04/12/19 05:35 Sodium Chloride Flush Syringe 10 Ml IV PRN PRN LINE FLUSH Thiamine HCl 100 mg 04/12/19 10:00 04/14/19 09:51 Vitamin B-1 PO 100 mg QDAY RENITA Administration
[2019-04-15] MEDS: COREG PO SCH ×2 (09:04→22:51)
[2019-04-15] MEDS: IMDUR PO SCH (09:04)
[2019-04-15] MEDS: FOLVITE PO SCH (09:04)
[2019-04-15] MEDS: Centrum Liq PO SCH (09:05)
[2019-04-15] MEDS: VITAMIN B-1 PO SCH (09:05)
[2019-04-15] MEDS: RENVELA PO SCH ×3 (09:05→17:59)
[2019-04-15] MEDS: SODIUM CHLORIDE FLUSH SYRINGE 10 ML IV SCH ×2 (09:07→22:52)
[2019-04-15] MEDS: XANAX PO PRN ×2 (09:08→17:24)
[2019-04-15] MEDS: PROTONIX 80 MG in NACL 0.9% 100 ML IV SCH (09:37)
--- NOTE | 2019-04-15 10:30 | Gastroenterology Progress Note ---
Assessment and Plan 1. Gastric cancer - in proximal body. Apparently well-worked up at [facility]. Pt notes he has an Oncologist, etc, there and is to have Port placed for chemorx, etc. - please transfer to [facility] as inpatient, or outpatient, to continue evaluation and workup. 2. GI bleed - H/H stable. Bleed due to cancer. - continue PPI - needs to get started ALBERTO on chemorx and possible XRT, at [facility]. Subjective Date of service: 04/15/19 Principal diagnosis: GI bleed Interval history: No acute distress. Has continued chronic diffuse abd pain. No indira GI bleeding or vomiting. Objective - Constitutional Vitals: Temp Pulse Resp BP Pulse Ox 98.4 F 80 17 104/62 100 04/15/19 08:00 04/15/19 09:04 04/15/19 09:00 04/15/19 09:04 04/15/19 09:00 General appearance: no acute distress - Respiratory Respiratory effort: normal - Cardiovascular Rhythm: regular - Gastrointestinal General gastrointestinal: Present: soft, tender, non-distended, normal bowel sounds - Neurologic Neurological: alert and oriented x3 - Labs CBC & Chem 7: 04/15/19 04:42 04/13/19 05:26 Labs: Laboratory Results - last 24 hr 04/13/19 04/14/19 04/14/19 23:36 17:10 23:27 WBC RBC Hgb Hct MCV MCH MCHC RDW Plt Count Lymph % (Auto) [place] % (Auto) Eos % (Auto) Baso % (Auto) Lymph # [place] # Eos # Baso # Seg Neutrophils % Seg Neutrophils # POC Glucose 167 H 84 93 Iron TIBC Ferritin 04/15/19 04/15/19 04/15/19 04:42 04:42 04:42 WBC 4.0 L RBC 2.67 L Hgb 8.2 L Hct 23.5 L MCV 88 MCH 31 MCHC 35 H RDW 13.3 Plt Count 155 Lymph % (Auto) 26.0 [place] % (Auto) 6.6 Eos % (Auto) 7.6 H Baso % (Auto) 1.2 Lymph # 1.0 L [place] # 0.3 Eos # 0.3 Baso # 0.0 Seg Neutrophils % 58.6 Seg Neutrophils # 2.3 POC Glucose Iron 22 L TIBC 211 L Ferritin 92.9 04/15/19 04/15/19 06:23 08:36 WBC RBC Hgb Hct MCV MCH MCHC RDW Plt Count Lymph % (Auto) [place] % (Auto) Eos % (Auto) Baso % (Auto) Lymph # [place] # Eos # Baso # Seg Neutrophils % Seg Neutrophils # POC Glucose 116 H 70 Iron TIBC Ferritin
--- NOTE | 2019-04-15 10:31 | Discharge Summary ---
Providers - Providers Date of Admission: 04/12/19 05:35 Date of discharge: 04/15/19 Attending physician: WALT DUNBAR 04/12/19 05:35 Consult to Physician [CONS] Routine Comment: Consulting Provider: HALINA NUGENT Physician Instructions: Reason For Exam: gi bleeding 04/12/19 05:55 Occupational Therapy Evaluate and Treat [CONS] Routine Comment: Reason For Exam: debility Physical Therapy Evaluation and Treat [CONS] Routine Comment: Reason For Exam: debility 04/12/19 14:51 Consult to Physician [CONS] Routine Comment: called office/ [facility] Consulting Provider: KERRY DE LOS SANTOS Physician Instructions: Reason For Exam: gastric mass 04/12/19 15:01 Consult to Physician [CONS] Routine Comment: called office/[facility]os Consulting Provider: ALLYSON GOTTLIEB Physician Instructions: Reason For Exam: gastric cancer Primary care physician: POLINA WOODALL Hospitalization Condition: Fair Disposition: DC-01 TO HOME OR SELFCARE Core Measure Documentation - Palliative Care Palliative Care/ Comfort Measures: Not Applicable - Core Measures Any of the following diagnoses?: none Exam - Constitutional Vitals: Temp Pulse Resp BP Pulse Ox 98.4 F 80 17 104/62 100 04/15/19 08:00 04/15/19 09:04 04/15/19 09:00 04/15/19 09:04 04/15/19 09:00 Plan Activity: no restrictions Diet: other (Full liquid diet) Additional Instructions: 1.Follow up with PCP at [facility] in 2-3 days. 2.Follow up with Oncologist at [facility] in 1-2 days Follow up with: POLINA WOODALL MD [Primary Care Provider] - 3-5 Days Forms: Accompanied Note Prescriptions: oxyCODONE /ACETAMINOPHEN [Percocet 5/325] 1 tab PO Q4HR PRN #20 tab PRN Reason: Pain , Severe (7-10) Pantoprazole [Protonix] 40 mg PO BID #60 tablet
--- NOTE | 2019-04-15 14:33 | Progress Note ---
Assessment and Plan Assessment and plan: Acute Rectal Bleeding - in this pt with a hx of Stomach Cancer - stable H/H upon admission.Per ED physician, pt had gross blood in his rectal vault - GI and Surgeon following - PPI IV BID for now. - EGD done 04/12 revealed gastric mass,ulcer -Discussed with GI, Oncology and Surgeon H/H has been stable Gastric cancer diagnosed at [place], as per patient Records requested not available yet Discussed with Dr. Munroe, Oncology - he now recommends discharge home [facility] Discussed with patient. he states [facility] was working on arrangements for treatment of gastric cancer and last communication was last week Liver lesions,2 poss liver biopsy as per Oncology Hyperkalemia resolved CAD Stable No chest pain Bilateral Calcified Pleural Plaques - possible Asbetos exposure - pt told about his continued surveillance with his oncologist Subtherapeutic INR -- continue to hold Warfarin given rectal bleeding. Debility - underlying malignancy - dealer sales manager called me stating PT recommends SNF placement, therefore discharge to home cancelled. pillowcase folder to arrange SNF placement and to call [facility] to arrange follow up for gastric cancer. History Interval history: Patient had PT eval recommend SNF placement No more bloody stools Hospitalist Physical - Physical exam Narrative exam: Gen: Not in acute distress, lying in bed HEENT: Normocephalic, atraumatic Neck: supple, no JVD Heart: S1 and S2 regular, no murmurs, rubs or gallop Lungs: Clear, no crackles, no wheeze Abd: soft, tender epigastric region, non distended, normal BS Ext: No edema, no clubbing, no cyanosis, Neuro: Awake,alert, oriented,moves all ext, - Constitutional Vitals: Temp Pulse Resp BP Pulse Ox 98.4 F 66 15 92/46 93 04/15/19 08:00 04/15/19 11:00 04/15/19 11:00 04/15/19 11:00 04/15/19 11:00 General appearance: Present: no acute distress Results - Labs CBC & Chem 7: 04/15/19 04:42 04/13/19 05:26 Labs: Laboratory Last Values WBC 4.0 K/mm3 (4.5-11.0) L 04/15/19 04:42 RBC 2.67 M/mm3 (3.65-5.03) L 04/15/19 04:42 Hgb 8.2 gm/dl (11.8-15.2) L 04/15/19 04:42 Hct 23.5 % (35.5-45.6) L 04/15/19 04:42 MCV 88 fl (84-94) 04/15/19 04:42 MCH 31 pg (28-32) 04/15/19 04:42 MCHC 35 % (32-34) H 04/15/19 04:42 RDW 13.3 % (13.2-15.2) 04/15/19 04:42 Plt Count 155 K/mm3 (140-440) 04/15/19 04:42 Lymph % (Auto) 26.0 % (13.4-35.0) 04/15/19 04:42 [place] % (Auto) 6.6 % (0.0-7.3) 04/15/19 04:42 Eos % (Auto) 7.6 % (0.0-4.3) H 04/15/19 04:42 Baso % (Auto) 1.2 % (0.0-1.8) 04/15/19 04:42 Lymph # 1.0 K/mm3 (1.2-5.4) L 04/15/19 04:42 [place] # 0.3 K/mm3 (0.0-0.8) 04/15/19 04:42 Eos # 0.3 K/mm3 (0.0-0.4) 04/15/19 04:42 Baso # 0.0 K/mm3 (0.0-0.1) 04/15/19 04:42 Seg Neutrophils % 58.6 % (40.0-70.0) 04/15/19 04:42 Seg Neutrophils # 2.3 K/mm3 (1.8-7.7) 04/15/19 04:42 PT 14.7 Sec. (12.2-14.9) 04/13/19 05:26 INR 1.18 (0.87-1.13) H 04/13/19 05:26 APTT 27.5 Sec. (24.2-36.6) 04/11/19 20:03 345.5 ng/mlDDU (0-234) H 04/11/19 20:03 Sodium 140 mmol/L (137-145) 04/13/19 05:26 Potassium 4.5 mmol/L (3.6-5.0) 04/13/19 05:26 Chloride 110.4 mmol/L (98-107) H 04/13/19 05:26 Carbon Dioxide 22 mmol/L (22-30) 04/13/19 05:26 12 mmol/L 04/13/19 05:26 BUN 21 mg/dL (9-20) H 04/13/19 05:26 0.8 mg/dL (0.8-1.5) 04/13/19 05:26 Estimated GFR > 60 ml/min 04/13/19 05:26 26 % 04/13/19 05:26 Glucose 146 mg/dL (75-100) H 04/13/19 05:26 POC Glucose 148 (70-105) H 04/15/19 11:53 Calcium 8.1 mg/dL (8.4-10.2) L 04/13/19 05:26 Iron 22 ug/dL (49-181) L 04/15/19 04:42 TIBC 211 mcg/dL (250-450) L 04/15/19 04:42 92.9 ng/mL (13.0-400.0) 04/15/19 04:42 0.70 mg/dL (0.1-1.2) 04/11/19 20:03 0.2 mg/dL (0-0.2) 04/11/19 20:03 0.5 mg/dL 04/11/19 20:03 AST 14 units/L (5-40) 04/11/19 20:03 ALT 9 units/L (7-56) 04/11/19 20:03 85 units/L (35-129) 04/11/19 20:03 < 0.010 ng/mL (0.00-0.029) 04/11/19 20:45 6.8 g/dL (6.3-8.2) 04/11/19 20:03 3.1 g/dL (3.9-5) L 04/11/19 20:03 0.8 % 04/11/19 20:03 13 units/L (13-60) 04/11/19 20:03 TSH 0.050 mlU/mL (0.270-4.200) L 04/11/19 20:45 Free T4 1.46 ng/dL (0.76-1.46) 04/12/19 16:45 Blood Type A NEGATIVE 04/12/19 16:45 Antibody Screen Negative 04/12/19 16:45 Active Medications - Current Medications Current Medications: Generic Name Dose Route Start Last Admin Trade Name Freq PRN Reason Stop Dose Admin Acetaminophen 650 mg 04/12/19 05:35 Tylenol PO Q4H PRN Pain MILD(1-3)/Fever >100.5/VALENTINO Alprazolam 1 mg 04/15/19 09:08 Xanax PO Q8H PRN Anxiety Bisacodyl 10 mg 04/12/19 05:35 Dulcolax [place] QDAY PRN Constipation unrelieved by MOM Carvedilol 3.125 mg 04/12/19 10:00 04/15/19 09:04 Coreg PO 3.125 mg BID RENITA Administration Doxepin HCl 100 mg 04/13/19 23:30 04/14/19 21:49 Sinequan PO 100 mg QHS RENITA Administration Folic Acid 1 mg 04/12/19 10:00 04/15/19 09:04 Folvite PO 1 mg QDAY RENITA Administration Dextrose/Sodium Chloride 1,000 mls @ 100 mls/hr 04/12/19 06:00 04/15/19 05:18 D5ns IV 0 mls/hr DIRECT RENITA Infusion Pantoprazole Sodium 80 mg/ 100 mls @ 10 mls/hr 04/12/19 12:00 04/15/19 09:37 Sodium Chloride IV 8 mg/hr DIRECT RENITA 10 mls/hr Administration 8 MG/HR Sodium Chloride 1,000 mls @ 50 mls/hr 04/12/19 13:00 04/15/19 05:19 Nacl 0.9% 1000 Ml IV 50 mls/hr DIRECT RENITA Administration Insulin Human Isoph/Insulin Regular 15 unit 04/12/19 08:00 04/15/19 08:00 Humulin 70/30 SUB-Q Not Given BIDDIAB RENITA Isosorbide Mononitrate 30 mg 04/12/19 10:00 04/15/19 09:04 Imdur PO 30 mg QDAY RENITA Administration Morphine Sulfate 4 mg 04/13/19 11:30 04/15/19 07:34 Morphine IV 4 mg Q4H PRN Administration Pain, Moderate (4-6) Multivitamins 5 ml 04/12/19 10:00 04/15/19 09:05 Centrum Liq PO 5 ml QDAY RENITA Administration Ondansetron HCl 4 mg 04/12/19 05:35 04/14/19 18:20 Zofran IV 4 mg Q8H PRN Administration Nausea And Vomiting Pravastatin Sodium 40 mg 04/12/19 22:00 04/14/19 21:49 Pravachol PO 40 mg QHS RENITA Administration Sevelamer Carbonate 1,600 mg 04/12/19 08:00 04/15/19 12:32 Renvela PO 1,600 mg TIDWM RENITA Administration Sodium Chloride 10 ml 04/12/19 10:00 04/15/19 09:07 Sodium Chloride Flush Syringe 10 Ml IV 10 ml BID RENITA Administration Sodium Chloride 10 ml 04/12/19 05:35 Sodium Chloride Flush Syringe 10 Ml IV PRN PRN LINE FLUSH Thiamine HCl 100 mg 04/12/19 10:00 04/15/19 09:05 Vitamin B-1 PO 100 mg QDAY RENITA Administration Nutrition/Malnutrition Assess - Dietary Evaluation Nutrition/Malnutrition Findings: Nutrition Notes Start: 04/13/19 16:59 Freq: Status: Active Protocol: Document 04/13/19 16:59 RM (Rec: 04/13/19 17:11 RM [id number]) Nutrition Notes Need for Assessment generated from: MST Initial or Follow up Assessment Current Diagnosis Coronary Artery Disease Other Pertinent Diagnosis Hx stomach CA, Abdominal pain, GI bleed Current Diet clear liquid Labs/Tests Reviewed Pertinent Medications Reviewed Height 6 ft Weight 68.9 kg Usual Body Weight 109.09 kg [place] Body Weight (kg) 80.90 BMI 20.6 Weight change and time frame 36.8% wt loss X 2 years Subjective/Other Information Screened for malnutrition. 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 Stated that his appetite is poor now and that he has only drunk juice and eaten some jello. Admitted to N/D. Stated UBW was 240 lbs 2 years ago. No temporal or orbital wasting . Burn Absent Trauma Absent #2 Nutrition Diagnosis Inadequate oral intake Etiology Hx stomach CA, abdominal pain As Evidenced by Signs and Symptoms 36.8% wt loss X 2 years, pt statement that he has only drunk juice and eaten some jello #1 Nutrition Diagnosis Underweight Comments: for older adult Etiology Hx stomach CA, abdominal pain As Evidenced by Signs and Symptoms BMI 20.6 Is patient on ventilator? No Is Patient Ambulatory and/or Out of Bed No REE-([facility]-confined to bed) 1631.909 Calculation Used for Recommendations [facility] Additional Notes Protein Needs: 69-83g (1-1.2g/ kg) Fluid Needs: 1 ml/kcal Nutrition Intervention Change Diet Order: Advance diet when medically able Add Supplement/Snack (indicate name/kcal Ensure Clear 1 daily /protein ) Provides kCal: 240 Provides Protein (gm) 8 Goal #1 Diet advancement Anticipated Discharge Needs: Unable to determine at this time Follow-Up By: 04/15/19 Additional Comments Follow for PO and ONS intakes
[2019-04-15] MEDS: SINEquan PO SCH (22:48)
[2019-04-15] MEDS: PRAVACHOL PO SCH (22:51)
[2019-04-16] MEDS: PROTONIX 80 MG in NACL 0.9% 100 ML IV SCH ×2 (03:17→15:40)
[2019-04-16] MEDS: NACL 0.9% 1000 ML 1,000 ML IV SCH (07:03)
--- NOTE | 2019-04-16 07:10 | Hem/Onc Progress Note ---
Assessment and Plan 1. History of gastric cancer, EGD showing gastric mass. 2. CT shows 2 liver lesions with some nodularity. I discussed with the patient that this could be mets versus hemangioma. 3. Anemia. We will follow. 4. Thrombocytopenia, mentioned of possible cirrhosis versus other cause. 5. History of rectal bleed. 6. As per the patient, [facility] patient. There was a discussion for chemoradiation, but the patient was not sure. 7. History of coronary artery disease. 8. History of loss of weight. 9. Home medications mentions warfarin, reason for its use is not clear. 10. ?Radiology to see if this is hemangioma or not. egd path bx negative d/w GI - Dr Bonner - 04/16 - [facility] follow [facility] option PRBC -PRN - Patient Problems (1) Gastric cancer Current Visit: Yes Status: Acute Qualifiers: Malignant neoplasm of stomach location: overlapping locations Qualified Code(s): C16.8 - Malignant neoplasm of overlapping sites of stomach Subjective Date of service: 04/16/19 Principal diagnosis: gastric ca as per hx Interval history: eating OK Objective - Exam Narrative Exam: Pain - pt not in distress General appearance no icterus Performance status limited self care Eyes - no icterus ENT - no thrush LNs cervical not palpable Neck - movement normal Respiratory Normal Breath sounds - CTA CVS S1 S2 + Extremities normal temperature General GI Soft Rectal deferred male - deferred Skin warm Musculoskeletal normal Neurologically AAOx3 - Constitutional Vitals: Last Vital Signs Temp 99.0 F 04/16/19 05:48 Pulse 83 04/16/19 05:48 Resp 18 04/16/19 05:48 BP 132/72 04/16/19 05:48 Pulse Ox 98 04/16/19 05:48 - Labs Lab Results: Laboratory Results - last 24 hr 04/15/19 04/15/19 04/15/19 08:36 11:53 16:54 POC Glucose 70 148 H 110 H 04/15/19 21:21 POC Glucose 308 H Medications & Allergies - Medications Allergies/Adverse Reactions: Allergies heparin Allergy (Severe, Verified 09/27/17 11:14) THROMBOCYTOPENIA HIT Home Medications: Home Medications Medication Instructions Recorded Confirmed Last Taken Type Carvedilol [Coreg] 3.125 mg PO BID #60 tablet 01/29/17 04/11/19 09/28/17 Rx Doxepin [SINEquan] 100 mg PO QHS capsule 01/29/17 04/11/19 09/28/17 Rx Folic Acid [Folvite] 1 mg PO QDAY #30 tablet 01/29/17 04/11/19 Unknown Rx Hypromellose [Isopto Tears 0.5%] 2 drops OU Q4H PRN #1 bottle 01/29/17 04/11/19 09/28/17 Rx Lisinopril [Zestril TAB] 2.5 mg PO QDAY #15 tablet 01/29/17 04/11/19 09/28/17 Rx ALPRAZolam [Xanax TAB] 1 mg PO QHS PRN #30 tablet 10/01/17 04/11/19 Unknown Rx Insulin Aspart Prot/Aspart(Nf) 15 units SQ BID #2 vial 10/01/17 04/11/19 Unknown Rx [NovoLOG Mix 70/30 VIAL] Multivitamins Liq [Multiple 5 ml PO QDAY #150 oral.liqd 10/01/17 04/11/19 Unknown Rx Vitamin Liq (Theragran)] Sevelamer Carbonate [Renvela] 1,600 mg PO TIDWM #90 tablet 10/01/17 04/11/19 Unknown Rx Simvastatin (Nf) [Zocor TAB] 20 mg PO QHS #30 tablet 10/01/17 04/11/19 Unknown Rx Thiamine [Vitamin B-1] 100 mg PO QDAY #30 tablet 10/01/17 04/11/19 Unknown Rx ISOSORBIDE MONOnitrate [Imdur ER] 30 mg PO QDAY tablet 01/07/18 04/11/19 Unknown Rx Insulin NPH/Regular [NovoLIN 70/30] 15 unit SUB-Q BIDDIAB units 01/07/18 04/11/19 Unknown Rx Pantoprazole [Protonix] 40 mg PO BID #60 tablet 04/15/19 Unknown Rx oxyCODONE /ACETAMINOPHEN [Percocet 1 tab PO Q4HR PRN #20 tab 04/15/19 Unknown Rx 5/325] Active Medications: Generic Name Dose Route Start Last Admin Trade Name Freq PRN Reason Stop Dose Admin Acetaminophen 650 mg 04/12/19 05:35 Tylenol PO Q4H PRN Pain MILD(1-3)/Fever >100.5/VALENTINO Alprazolam 1 mg 04/15/19 09:08 04/15/19 17:24 Xanax PO 1 mg Q8H PRN Administration Anxiety Bisacodyl 10 mg 04/12/19 05:35 Dulcolax [place] QDAY PRN Constipation unrelieved by MOM Carvedilol 3.125 mg 04/12/19 10:00 04/15/19 22:51 Coreg PO 3.125 mg BID RENITA Administration Doxepin HCl 100 mg 04/13/19 23:30 04/15/19 22:48 Sinequan PO 100 mg QHS RENITA Administration Folic Acid 1 mg 04/12/19 10:00 04/15/19 09:04 Folvite PO 1 mg QDAY RENITA Administration Dextrose/Sodium Chloride 1,000 mls @ 100 mls/hr 04/12/19 06:00 04/15/19 05:18 D5ns IV 0 mls/hr DIRECT RENITA Infusion Pantoprazole Sodium 80 mg/ 100 mls @ 10 mls/hr 04/12/19 12:00 04/16/19 03:17 Sodium Chloride IV 8 mg/hr DIRECT RENITA 10 mls/hr Administration 8 MG/HR Sodium Chloride 1,000 mls @ 50 mls/hr 04/12/19 13:00 04/16/19 07:03 Nacl 0.9% 1000 Ml IV 50 mls/hr DIRECT RENITA Administration Insulin Human Isoph/Insulin Regular 15 unit 04/12/19 08:00 04/15/19 18:36 Humulin 70/30 SUB-Q 15 unit BIDDIAB RENITA Administration Isosorbide Mononitrate 30 mg 04/12/19 10:00 04/15/19 09:04 Imdur PO 30 mg QDAY RENITA Administration Morphine Sulfate 4 mg 04/13/19 11:30 04/15/19 18:00 Morphine IV 4 mg Q4H PRN Administration Pain, Moderate (4-6) Multivitamins 5 ml 04/12/19 10:00 04/15/19 09:05 Centrum Liq PO 5 ml QDAY RENITA Administration Ondansetron HCl 4 mg 04/12/19 05:35 04/14/19 18:20 Zofran IV 4 mg Q8H PRN Administration Nausea And Vomiting Pravastatin Sodium 40 mg 04/12/19 22:00 04/15/19 22:51 Pravachol PO 40 mg QHS RENITA Administration Sevelamer Carbonate 1,600 mg 04/12/19 08:00 04/15/19 17:59 Renvela PO 1,600 mg TIDWM RENITA Administration Sodium Chloride 10 ml 04/12/19 10:00 04/15/19 22:52 Sodium Chloride Flush Syringe 10 Ml IV 10 ml BID RENITA Administration Sodium Chloride 10 ml 04/12/19 05:35 Sodium Chloride Flush Syringe 10 Ml IV PRN PRN LINE FLUSH Thiamine HCl 100 mg 04/12/19 10:00 04/15/19 09:05 Vitamin B-1 PO 100 mg QDAY RENITA Administration
--- NOTE | 2019-04-16 09:36 | Progress Note ---
Assessment and Plan Assessment and plan: Acute Rectal Bleeding - in this pt with a hx of Stomach Cancer - stable H/H upon admission.Per ED physician, pt had gross blood in his rectal vault - GI and Surgeon following - PPI IV BID for now. - EGD done 04/12 revealed gastric mass,ulcer -Discussed with GI, Oncology and Surgeon H/H has been stable Gastric cancer diagnosed at [place], as per patient Records requested not available yet Discussed with Dr. Munroe, Oncology - he now recommends discharge home [facility] Discussed with patient. he states [facility] was working on arrangements for treatment of gastric cancer and last communication was last week Liver lesions X 2 To follow up at [place] Hyperkalemia resolved CAD Stable No chest pain Bilateral Calcified Pleural Plaques - possible Asbetos exposure - pt told about his continued surveillance with his oncologist Subtherapeutic INR -- continue to hold Warfarin given rectal bleeding. Debility - underlying malignancy - manager adobe called me stating PT recommends SNF placement, therefore discharge to home cancelled. shelter case manager to arrange SNF placement and to call [facility] to arrange follow up for gastric cancer. manager adobe to arrange placement History Interval history: Patient had PT eval recommend SNF placement No more bloody stools Hospitalist Physical - Physical exam Narrative exam: Gen: Not in acute distress, lying in bed HEENT: Normocephalic, atraumatic Neck: supple, no JVD Heart: S1 and S2 regular, no murmurs, rubs or gallop Lungs: Clear, no crackles, no wheeze Abd: soft, tender epigastric region, non distended, normal BS Ext: No edema, no clubbing, no cyanosis, Neuro: Awake,alert, oriented,moves all ext, - Constitutional Vitals: Temp Pulse Resp BP Pulse Ox 99.0 F 83 18 132/72 98 04/16/19 05:48 04/16/19 05:48 04/16/19 05:48 04/16/19 05:48 04/16/19 05:48 General appearance: Present: no acute distress Results - Labs CBC & Chem 7: 04/15/19 04:42 04/13/19 05:26 Labs: Laboratory Last Values WBC 4.0 K/mm3 (4.5-11.0) L 04/15/19 04:42 RBC 2.67 M/mm3 (3.65-5.03) L 04/15/19 04:42 Hgb 8.2 gm/dl (11.8-15.2) L 04/15/19 04:42 Hct 23.5 % (35.5-45.6) L 04/15/19 04:42 MCV 88 fl (84-94) 04/15/19 04:42 MCH 31 pg (28-32) 04/15/19 04:42 MCHC 35 % (32-34) H 04/15/19 04:42 RDW 13.3 % (13.2-15.2) 04/15/19 04:42 Plt Count 155 K/mm3 (140-440) 04/15/19 04:42 Lymph % (Auto) 26.0 % (13.4-35.0) 04/15/19 04:42 [place] % (Auto) 6.6 % (0.0-7.3) 04/15/19 04:42 Eos % (Auto) 7.6 % (0.0-4.3) H 04/15/19 04:42 Baso % (Auto) 1.2 % (0.0-1.8) 04/15/19 04:42 Lymph # 1.0 K/mm3 (1.2-5.4) L 04/15/19 04:42 [place] # 0.3 K/mm3 (0.0-0.8) 04/15/19 04:42 Eos # 0.3 K/mm3 (0.0-0.4) 04/15/19 04:42 Baso # 0.0 K/mm3 (0.0-0.1) 04/15/19 04:42 Seg Neutrophils % 58.6 % (40.0-70.0) 04/15/19 04:42 Seg Neutrophils # 2.3 K/mm3 (1.8-7.7) 04/15/19 04:42 PT 14.7 Sec. (12.2-14.9) 04/13/19 05:26 INR 1.18 (0.87-1.13) H 04/13/19 05:26 APTT 27.5 Sec. (24.2-36.6) 04/11/19 20:03 345.5 ng/mlDDU (0-234) H 04/11/19 20:03 Sodium 140 mmol/L (137-145) 04/13/19 05:26 Potassium 4.5 mmol/L (3.6-5.0) 04/13/19 05:26 Chloride 110.4 mmol/L (98-107) H 04/13/19 05:26 Carbon Dioxide 22 mmol/L (22-30) 04/13/19 05:26 12 mmol/L 04/13/19 05:26 BUN 21 mg/dL (9-20) H 04/13/19 05:26 0.8 mg/dL (0.8-1.5) 04/13/19 05:26 Estimated GFR > 60 ml/min 04/13/19 05:26 26 % 04/13/19 05:26 Glucose 146 mg/dL (75-100) H 04/13/19 05:26 POC Glucose 106 (70-105) H 04/16/19 07:50 Calcium 8.1 mg/dL (8.4-10.2) L 04/13/19 05:26 Iron 22 ug/dL (49-181) L 04/15/19 04:42 TIBC 211 mcg/dL (250-450) L 04/15/19 04:42 92.9 ng/mL (13.0-400.0) 04/15/19 04:42 0.70 mg/dL (0.1-1.2) 04/11/19 20:03 0.2 mg/dL (0-0.2) 04/11/19 20:03 0.5 mg/dL 04/11/19 20:03 AST 14 units/L (5-40) 04/11/19 20:03 ALT 9 units/L (7-56) 04/11/19 20:03 85 units/L (35-129) 04/11/19 20:03 < 0.010 ng/mL (0.00-0.029) 04/11/19 20:45 6.8 g/dL (6.3-8.2) 04/11/19 20:03 3.1 g/dL (3.9-5) L 04/11/19 20:03 0.8 % 04/11/19 20:03 13 units/L (13-60) 04/11/19 20:03 TSH 0.050 mlU/mL (0.270-4.200) L 04/11/19 20:45 Free T4 1.46 ng/dL (0.76-1.46) 04/12/19 16:45 Blood Type A NEGATIVE 04/12/19 16:45 Antibody Screen Negative 04/12/19 16:45 Active Medications - Current Medications Current Medications: Generic Name Dose Route Start Last Admin Trade Name Freq PRN Reason Stop Dose Admin Acetaminophen 650 mg 04/12/19 05:35 Tylenol PO Q4H PRN Pain MILD(1-3)/Fever >100.5/VALENTINO Alprazolam 1 mg 04/15/19 09:08 04/15/19 17:24 Xanax PO 1 mg Q8H PRN Administration Anxiety Bisacodyl 10 mg 04/12/19 05:35 Dulcolax [place] QDAY PRN Constipation unrelieved by MOM Carvedilol 3.125 mg 04/12/19 10:00 04/15/19 22:51 Coreg PO 3.125 mg BID RENITA Administration Doxepin HCl 100 mg 04/13/19 23:30 04/15/19 22:48 Sinequan PO 100 mg QHS RENITA Administration Folic Acid 1 mg 04/12/19 10:00 04/15/19 09:04 Folvite PO 1 mg QDAY RENITA Administration Dextrose/Sodium Chloride 1,000 mls @ 100 mls/hr 04/12/19 06:00 04/15/19 05:18 D5ns IV 0 mls/hr DIRECT RENITA Infusion Pantoprazole Sodium 80 mg/ 100 mls @ 10 mls/hr 04/12/19 12:00 04/16/19 03:17 Sodium Chloride IV 8 mg/hr DIRECT RENITA 10 mls/hr Administration 8 MG/HR Sodium Chloride 1,000 mls @ 50 mls/hr 04/12/19 13:00 04/16/19 07:03 Nacl 0.9% 1000 Ml IV 50 mls/hr DIRECT RENITA Administration Insulin Human Isoph/Insulin Regular 15 unit 04/12/19 08:00 04/15/19 18:36 Humulin 70/30 SUB-Q 15 unit BIDDIAB RENITA Administration Isosorbide Mononitrate 30 mg 04/12/19 10:00 04/15/19 09:04 Imdur PO 30 mg QDAY RENITA Administration Morphine Sulfate 4 mg 04/13/19 11:30 04/15/19 18:00 Morphine IV 4 mg Q4H PRN Administration Pain, Moderate (4-6) Multivitamins 5 ml 04/12/19 10:00 04/15/19 09:05 Centrum Liq PO 5 ml QDAY RENITA Administration Ondansetron HCl 4 mg 04/12/19 05:35 04/14/19 18:20 Zofran IV 4 mg Q8H PRN Administration Nausea And Vomiting Pravastatin Sodium 40 mg 04/12/19 22:00 04/15/19 22:51 Pravachol PO 40 mg QHS RENITA Administration Sevelamer Carbonate 1,600 mg 04/12/19 08:00 04/15/19 17:59 Renvela PO 1,600 mg TIDWM RENITA Administration Sodium Chloride 10 ml 04/12/19 10:00 04/15/19 22:52 Sodium Chloride Flush Syringe 10 Ml IV 10 ml BID RENITA Administration Sodium Chloride 10 ml 04/12/19 05:35 Sodium Chloride Flush Syringe 10 Ml IV PRN PRN LINE FLUSH Thiamine HCl 100 mg 04/12/19 10:00 04/15/19 09:05 Vitamin B-1 PO 100 mg QDAY RENITA Administration Nutrition/Malnutrition Assess - Dietary Evaluation Nutrition/Malnutrition Findings: Nutrition Notes Start: 04/13/19 16:59 Freq: Status: Active Protocol: Document 04/15/19 16:39 RM (Rec: 04/15/19 16:43 RM [id number]) Nutrition Notes Initial or Follow up Reassessment Current Diagnosis Coronary Artery Disease Other Pertinent Diagnosis Hx stomach CA, Abdominal pain, GI bleed Current Diet Full liquid Labs/Tests Reviewed Pertinent Medications Reviewed Height 6 ft Weight 72.23 kg [place] Body Weight (kg) 80.90 BMI 21.6 Weight change and time frame Current wt obtained from [facility] Subjective/Other Information Diet advanced to full liquid. Pt asleep at time of visit. Per pt nurse pt has been drinking 100% of her meals w/ no vomiting. Percent of energy/protein needs met: 62%/54% Burn Absent Trauma Absent #2 Nutrition Diagnosis Inadequate oral intake As Evidenced by Signs and Symptoms pt meeting 62% calorie and 54% of protein needs Diagnosis Progress(for reassessment Improved documentation) #1 Nutrition Diagnosis Underweight Diagnosis Progress(for reassessment Continues documentation) Is patient on ventilator? No Is Patient Ambulatory and/or Out of Bed No REE-([facility]-confined to bed) 7115.109 Calculation Used for Recommendations [facility] Additional Notes Protein Needs: 69-83g (1-1.2g/ kg) Fluid Needs: 1 ml/kcal Nutrition Intervention Change Diet Order: Advance diet when medically able Add Supplement/Snack (indicate name/kcal Ensure Enlive 1 daily /protein ) Provides kCal: 350 Provides Protein (gm) 20 Goal #1 Diet advancement Anticipated Discharge Needs: Unable to determine at this time Follow-Up By: 04/18/19 Additional Comments Follow for PO and ONS intakes
--- NOTE | 2019-04-16 09:53 | Gastroenterology Progress Note ---
Assessment and Plan 1. UGI bleed - due to ulcerated gastric mass (reportedly with known malignancy from prior work up at [facility]); no high risk bleeding lesions. 2. Gastric mass - oncology following; pt to follow-up at [facility] for further management/treatment -cont IV PPI today and can switch to BID dosing at the time of discharge Will sign off, please call as needed or with questions. Subjective Date of service: 04/16/19 Principal diagnosis: h/o gastric ca Interval history: pt seen and examined; c/o abdominal pain but wants to eat. no reported further signs of overt gi bleeding. Objective - Constitutional Vitals: Temp Pulse Resp BP Pulse Ox 99.0 F 83 18 132/72 98 04/16/19 05:48 04/16/19 05:48 04/16/19 05:48 04/16/19 05:48 04/16/19 05:48 General appearance: no acute distress - Respiratory Respiratory effort: normal Respiratory: bilateral: CTA - Cardiovascular Rhythm: regular Heart Sounds: Present: S1 & S2 - Gastrointestinal General gastrointestinal: Present: soft, tender (epigastric ttp), normal bowel sounds - Neurologic Neurological: alert and oriented x3 - Labs CBC & Chem 7: 04/15/19 04:42 04/13/19 05:26 Labs: Laboratory Results - last 24 hr 04/15/19 04/15/19 04/15/19 11:53 16:54 21:21 POC Glucose 148 H 110 H 308 H 04/16/19 07:50 POC Glucose 106 H
[2019-04-16] MEDS: RENVELA PO SCH ×3 (10:23→17:33)
[2019-04-16] MEDS: FOLVITE PO SCH (10:23)
[2019-04-16] MEDS: COREG PO SCH (10:23)
[2019-04-16] MEDS: Centrum Liq PO SCH (10:23)
[2019-04-16] MEDS: VITAMIN B-1 PO SCH (10:23)
[2019-04-16] MEDS: IMDUR PO SCH (10:23)
[2019-04-16] MEDS: XANAX PO PRN ×2 (10:23→22:25)
[2019-04-16] MEDS: SODIUM CHLORIDE FLUSH SYRINGE 10 ML IV SCH ×2 (10:24→22:26)
[2019-04-16] MEDS: MORPHINE IV PRN ×3 (10:28→19:24)
[2019-04-16] MEDS: SINEquan PO SCH (22:24)
[2019-04-16] MEDS: PRAVACHOL PO SCH (22:25)
[2019-04-17] MEDS: COREG PO SCH ×3 (01:29→23:13)
[2019-04-17] MEDS: DILAUDID IV PRN ×3 (02:24→11:07)
[2019-04-17] MEDS: PROTONIX 80 MG in NACL 0.9% 100 ML IV SCH (03:52)
--- NOTE | 2019-04-17 05:55 | Hem/Onc Progress Note ---
Assessment and Plan 1. History of gastric cancer, EGD showing gastric mass. 2. CT shows 2 liver lesions with some nodularity. I discussed with the patient that this could be mets versus hemangioma. 3. Anemia. We will follow. 4. Thrombocytopenia, mentioned of possible cirrhosis versus other cause. 5. History of rectal bleed. 6. As per the patient[facility] There was a discussion for chemoradiation, but the patient was not sure. 7. History of coronary artery disease. 8. History of loss of weight. 9. Home medications mentions warfarin, reason for its use is not clear. 10. ?Radiology to see if this is hemangioma or not. egd path bx negative [facility] follow up an option PRBC -PRN iv iron - Patient Problems (1) Gastric cancer Current Visit: Yes Status: Acute Qualifiers: Malignant neoplasm of stomach location: overlapping locations Qualified Code(s): C16.8 - Malignant neoplasm of overlapping sites of stomach Subjective Date of service: 04/17/19 Principal diagnosis: gastric ca as per hx Interval history: waiting for [facility] apt Objective - Exam Narrative Exam: Pain - pt not in distress General appearance no icterus Performance status limited self care Eyes - no icterus ENT - no thrush LNs cervical not palpable Neck - movement normal Respiratory Normal Breath sounds - CTA CVS S1 S2 + Extremities normal temperature General GI Soft Rectal deferred male - deferred Skin warm Musculoskeletal normal Neurologically AAOx3 - Constitutional Vitals: Last Vital Signs Temp 98.4 F 04/17/19 04:49 Pulse 63 04/17/19 04:49 Resp 16 04/17/19 04:49 BP 112/65 04/17/19 04:49 Pulse Ox 99 04/17/19 04:49 - Labs Lab Results: Laboratory Results - last 24 hr 04/16/19 04/16/19 04/16/19 07:50 11:34 16:54 POC Glucose 106 H 119 H 114 H 04/16/19 04/17/19 21:30 00:44 POC Glucose 72 145 H Medications & Allergies - Medications Allergies/Adverse Reactions: Allergies heparin Allergy (Severe, Verified 09/27/17 11:14) THROMBOCYTOPENIA HIT Home Medications: Home Medications Medication Instructions Recorded Confirmed Last Taken Type Carvedilol [Coreg] 3.125 mg PO BID #60 tablet 01/29/17 04/11/19 09/28/17 Rx Doxepin [SINEquan] 100 mg PO QHS capsule 01/29/17 04/11/19 09/28/17 Rx Folic Acid [Folvite] 1 mg PO QDAY #30 tablet 01/29/17 04/11/19 Unknown Rx Hypromellose [Isopto Tears 0.5%] 2 drops OU Q4H PRN #1 bottle 01/29/17 04/11/19 09/28/17 Rx Lisinopril [Zestril TAB] 2.5 mg PO QDAY #15 tablet 01/29/17 04/11/19 09/28/17 Rx ALPRAZolam [Xanax TAB] 1 mg PO QHS PRN #30 tablet 10/01/17 04/11/19 Unknown Rx Insulin Aspart Prot/Aspart(Nf) 15 units SQ BID #2 vial 10/01/17 04/11/19 Unknown Rx [NovoLOG Mix 70/30 VIAL] Multivitamins Liq [Multiple 5 ml PO QDAY #150 oral.liqd 10/01/17 04/11/19 Unknown Rx Vitamin Liq (Theragran)] Sevelamer Carbonate [Renvela] 1,600 mg PO TIDWM #90 tablet 10/01/17 04/11/19 Unknown Rx Simvastatin (Nf) [Zocor TAB] 20 mg PO QHS #30 tablet 10/01/17 04/11/19 Unknown Rx Thiamine [Vitamin B-1] 100 mg PO QDAY #30 tablet 10/01/17 04/11/19 Unknown Rx ISOSORBIDE MONOnitrate [Imdur ER] 30 mg PO QDAY tablet 01/07/18 04/11/19 Unknown Rx Insulin NPH/Regular [NovoLIN 70/30] 15 unit SUB-Q BIDDIAB units 01/07/18 04/11/19 Unknown Rx Pantoprazole [Protonix] 40 mg PO BID #60 tablet 04/15/19 Unknown Rx oxyCODONE /ACETAMINOPHEN [Percocet 1 tab PO Q4HR PRN #20 tab 04/15/19 Unknown Rx 5/325] Active Medications: Generic Name Dose Route Start Last Admin Trade Name Freq PRN Reason Stop Dose Admin Acetaminophen 650 mg 04/12/19 05:35 Tylenol PO Q4H PRN Pain MILD(1-3)/Fever >100.5/VALENTINO Alprazolam 1 mg 04/15/19 09:08 04/16/19 22:25 Xanax PO 1 mg Q8H PRN Administration Anxiety Bisacodyl 10 mg 04/12/19 05:35 Dulcolax [place] QDAY PRN Constipation unrelieved by MOM Carvedilol 3.125 mg 04/12/19 10:00 04/17/19 01:29 Coreg PO Not Given BID RENITA Doxepin HCl 100 mg 04/13/19 23:30 04/16/19 22:24 Sinequan PO 100 mg QHS RENITA Administration Folic Acid 1 mg 04/12/19 10:00 04/16/19 10:23 Folvite PO 1 mg QDAY RENITA Administration Hydromorphone HCl 0.5 mg 04/16/19 23:21 04/17/19 02:24 Dilaudid IV 04/17/19 12:00 0.5 mg Q3H PRN Administration Pain , Severe (7-10) Dextrose/Sodium Chloride 1,000 mls @ 100 mls/hr 04/12/19 06:00 04/15/19 05:18 D5ns IV 0 mls/hr DIRECT RENITA Infusion Pantoprazole Sodium 80 mg/ 100 mls @ 10 mls/hr 04/12/19 12:00 04/17/19 03:52 Sodium Chloride IV 8 mg/hr DIRECT RENITA 10 mls/hr Administration 8 MG/HR Sodium Chloride 1,000 mls @ 50 mls/hr 04/12/19 13:00 04/16/19 07:03 Nacl 0.9% 1000 Ml IV 50 mls/hr DIRECT RENITA Administration Insulin Human Isoph/Insulin Regular 15 unit 04/12/19 08:00 04/16/19 17:33 Humulin 70/30 SUB-Q 15 unit BIDDIAB RENITA Administration Isosorbide Mononitrate 30 mg 04/12/19 10:00 04/16/19 10:23 Imdur PO 30 mg QDAY RENITA Administration Morphine Sulfate 4 mg 04/13/19 11:30 04/16/19 19:24 Morphine IV 4 mg Q4H PRN Administration Pain, Moderate (4-6) Multivitamins 5 ml 04/12/19 10:00 04/16/19 10:23 Centrum Liq PO 5 ml QDAY RENITA Administration Ondansetron HCl 4 mg 04/12/19 05:35 04/14/19 18:20 Zofran IV 4 mg Q8H PRN Administration Nausea And Vomiting Oxycodone/Acetaminophen 1 tab 04/17/19 01:07 Percocet 5/325 PO Q6H PRN Pain, Moderate (4-6) Pravastatin Sodium 40 mg 04/12/19 22:00 04/16/19 22:25 Pravachol PO 40 mg QHS RENITA Administration Sevelamer Carbonate 1,600 mg 04/12/19 08:00 04/16/19 17:33 Renvela PO 1,600 mg TIDWM RENITA Administration Sodium Chloride 10 ml 04/12/19 10:00 04/16/19 22:26 Sodium Chloride Flush Syringe 10 Ml IV 10 ml BID RENITA Administration Sodium Chloride 10 ml 04/12/19 05:35 Sodium Chloride Flush Syringe 10 Ml IV PRN PRN LINE FLUSH Thiamine HCl 100 mg 04/12/19 10:00 04/16/19 10:23 Vitamin B-1 PO 100 mg QDAY RENITA Administration
[2019-04-17 06:34] LABS: Hematocrit 22.5 % (35.5-45.6); Mean Corpuscular HGB Conc 36 % (32-34); Mean Corpuscular Volume 87 fl (84-94); Platelet Count 168 K/mm3 (140-440); Red Blood Count 2.57 M/mm3 (3.65-5.03); Red Cell Distribution Width 13.7 % (13.2-15.2)
[2019-04-17 06:50] LABS: BUN/Creatinine Ratio 10; Blood Urea Nitrogen 9 mg/dL (9-20); Calcium 8.3 mg/dL (8.4-10.2); Hemolysis Index 3
[2019-04-17] MEDS: RENVELA PO SCH ×3 (07:47→18:23)
[2019-04-17] MEDS: VITAMIN B-1 PO SCH (09:51)
[2019-04-17] MEDS: SODIUM CHLORIDE FLUSH SYRINGE 10 ML IV SCH (09:52)
[2019-04-17] MEDS: FOLVITE PO SCH (09:52)
[2019-04-17] MEDS: Centrum Liq PO SCH (09:52)
[2019-04-17] MEDS: NACL 0.9% 1000 ML 1,000 ML IV SCH (09:55)
[2019-04-17] MEDS ORDERED: FERRLECIT 125 MG in NACL 0.9% 100 ML IV ONE (11:00)
[2019-04-17] MEDS: IMDUR PO SCH (12:21)
--- NOTE | 2019-04-17 12:26 | Progress Note ---
Assessment and Plan Assessment and plan: Acute Rectal Bleeding - in this pt with a hx of Stomach Cancer - stable H/H upon admission.Per ED physician, pt had gross blood in his rectal vault - GI and Surgeon following - PPI IV BID for now. - EGD done 04/12 revealed gastric mass,ulcer -Discussed with GI, Oncology and Surgeon H/H has been stable Gastric cancer diagnosed at [place], as per patient Records requested not available yet Discussed with Dr. Munroe, Oncology - he now recommends discharge home [facility] Discussed with patient. he states [facility] was working on arrangements for treatment of gastric cancer and last communication was last week Liver lesions X 2 To follow up at [facility] Hyperkalemia resolved CAD Stable No chest pain Bilateral Calcified Pleural Plaques - possible Asbetos exposure - pt told about his continued surveillance with his oncologist Subtherapeutic INR -- continue to hold Warfarin given rectal bleeding. Debility - underlying malignancy Disposition: Patient medically stable and discharged home 04/16/19 but he appealed discharge. I had discussed with Physical therapy and she stated patient can go home PT vee. There was some misunderstanding about patient needing SNF placement but incorrect. History Interval history: Patient had PT eval recommend SNF placement No more bloody stools patient discharged home but appealed discharge Hospitalist Physical - Physical exam Narrative exam: Gen: Not in acute distress, lying in bed HEENT: Normocephalic, atraumatic Neck: supple, no JVD Heart: S1 and S2 regular, no murmurs, rubs or gallop Lungs: Clear, no crackles, no wheeze Abd: soft, tender epigastric region, non distended, normal BS Ext: No edema, no clubbing, no cyanosis, Neuro: Awake,alert, oriented,moves all ext, - Constitutional Vitals: Temp Pulse Resp BP Pulse Ox 98.4 F 63 16 105/65 99 04/17/19 04:49 04/17/19 04:49 04/17/19 04:49 04/17/19 12:21 04/17/19 04:49 General appearance: Present: no acute distress Results - Labs CBC & Chem 7: 04/17/19 05:45 04/17/19 05:45 Labs: Laboratory Last Values WBC 4.8 K/mm3 (4.5-11.0) 04/17/19 05:45 RBC 2.57 M/mm3 (3.65-5.03) L 04/17/19 05:45 Hgb 8.0 gm/dl (11.8-15.2) L 04/17/19 05:45 Hct 22.5 % (35.5-45.6) L 04/17/19 05:45 MCV 87 fl (84-94) 04/17/19 05:45 MCH 31 pg (28-32) 04/17/19 05:45 MCHC 36 % (32-34) H 04/17/19 05:45 RDW 13.7 % (13.2-15.2) 04/17/19 05:45 Plt Count 168 K/mm3 (140-440) 04/17/19 05:45 Lymph % (Auto) 26.0 % (13.4-35.0) 04/15/19 04:42 [place] % (Auto) 6.6 % (0.0-7.3) 04/15/19 04:42 Eos % (Auto) 7.6 % (0.0-4.3) H 04/15/19 04:42 Baso % (Auto) 1.2 % (0.0-1.8) 04/15/19 04:42 Lymph # 1.0 K/mm3 (1.2-5.4) L 04/15/19 04:42 [place] # 0.3 K/mm3 (0.0-0.8) 04/15/19 04:42 Eos # 0.3 K/mm3 (0.0-0.4) 04/15/19 04:42 Baso # 0.0 K/mm3 (0.0-0.1) 04/15/19 04:42 Seg Neutrophils % 58.6 % (40.0-70.0) 04/15/19 04:42 Seg Neutrophils # 2.3 K/mm3 (1.8-7.7) 04/15/19 04:42 PT 14.7 Sec. (12.2-14.9) 04/13/19 05:26 INR 1.18 (0.87-1.13) H 04/13/19 05:26 APTT 27.5 Sec. (24.2-36.6) 04/11/19 20:03 345.5 ng/mlDDU (0-234) H 04/11/19 20:03 Sodium 143 mmol/L (137-145) 04/17/19 05:45 Potassium 4.4 mmol/L (3.6-5.0) 04/17/19 05:45 Chloride 108.5 mmol/L (98-107) H 04/17/19 05:45 Carbon Dioxide 25 mmol/L (22-30) 04/17/19 05:45 14 mmol/L 04/17/19 05:45 BUN 9 mg/dL (9-20) 04/17/19 05:45 0.9 mg/dL (0.8-1.5) 04/17/19 05:45 Estimated GFR > 60 ml/min 04/17/19 05:45 10 % 04/17/19 05:45 Glucose 107 mg/dL (75-100) H 04/17/19 05:45 POC Glucose 205 (70-105) H 04/17/19 11:30 Calcium 8.3 mg/dL (8.4-10.2) L 04/17/19 05:45 Iron 22 ug/dL (49-181) L 04/15/19 04:42 TIBC 211 mcg/dL (250-450) L 04/15/19 04:42 92.9 ng/mL (13.0-400.0) 04/15/19 04:42 0.70 mg/dL (0.1-1.2) 04/11/19 20:03 0.2 mg/dL (0-0.2) 04/11/19 20:03 0.5 mg/dL 04/11/19 20:03 AST 14 units/L (5-40) 04/11/19 20:03 ALT 9 units/L (7-56) 04/11/19 20:03 85 units/L (35-129) 04/11/19 20:03 < 0.010 ng/mL (0.00-0.029) 04/11/19 20:45 6.8 g/dL (6.3-8.2) 04/11/19 20:03 3.1 g/dL (3.9-5) L 04/11/19 20:03 0.8 % 04/11/19 20:03 13 units/L (13-60) 04/11/19 20:03 TSH 0.050 mlU/mL (0.270-4.200) L 04/11/19 20:45 Free T4 1.46 ng/dL (0.76-1.46) 04/12/19 16:45 Blood Type A NEGATIVE 04/12/19 16:45 Antibody Screen Negative 04/12/19 16:45 Active Medications - Current Medications Current Medications: Generic Name Dose Route Start Last Admin Trade Name Freq PRN Reason Stop Dose Admin Acetaminophen 650 mg 04/12/19 05:35 Tylenol PO Q4H PRN Pain MILD(1-3)/Fever >100.5/VALENTINO Alprazolam 1 mg 04/15/19 09:08 04/16/19 22:25 Xanax PO 1 mg Q8H PRN Administration Anxiety Bisacodyl 10 mg 04/12/19 05:35 Dulcolax [place] QDAY PRN Constipation unrelieved by MOM Carvedilol 3.125 mg 04/12/19 10:00 04/17/19 12:20 Coreg PO Not Given BID RENITA Doxepin HCl 100 mg 04/13/19 23:30 04/16/19 22:24 Sinequan PO 100 mg QHS RENITA Administration Folic Acid 1 mg 04/12/19 10:00 04/17/19 09:52 Folvite PO 1 mg QDAY RENITA Administration Sodium Chloride 1,000 mls @ 50 mls/hr 04/12/19 13:00 04/17/19 09:55 Nacl 0.9% 1000 Ml IV 50 mls/hr DIRECT RENITA Administration Insulin Human Isoph/Insulin Regular 15 unit 04/12/19 08:00 04/17/19 09:52 Humulin 70/30 SUB-Q 15 unit BIDDIAB RENITA Administration Isosorbide Mononitrate 30 mg 04/12/19 10:00 04/17/19 12:21 Imdur PO Not Given QDAY RENITA Multivitamins 5 ml 04/12/19 10:00 04/17/19 09:52 Centrum Liq PO 5 ml QDAY RENITA Administration Ondansetron HCl 4 mg 04/12/19 05:35 04/14/19 18:20 Zofran IV 4 mg Q8H PRN Administration Nausea And Vomiting Oxycodone/Acetaminophen 1 tab 07/07/19 01:07 Percocet 5/325 PO Q6H PRN Pain, Moderate (4-6) Pantoprazole Sodium 40 mg 04/17/19 10:00 Protonix PO BID RENITA Pravastatin Sodium 40 mg 04/12/19 22:00 04/16/19 22:25 Pravachol PO 40 mg QHS RENITA Administration Sevelamer Carbonate 1,600 mg 04/12/19 08:00 04/17/19 07:47 Renvela PO 1,600 mg TIDWM RENITA Administration Sodium Chloride 10 ml 04/12/19 10:00 04/17/19 09:52 Sodium Chloride Flush Syringe 10 Ml IV 10 ml BID RENITA Administration Sodium Chloride 10 ml 04/12/19 05:35 Sodium Chloride Flush Syringe 10 Ml IV PRN PRN LINE FLUSH Thiamine HCl 100 mg 04/12/19 10:00 04/17/19 09:51 Vitamin B-1 PO 100 mg QDAY RENITA Administration Nutrition/Malnutrition Assess - Dietary Evaluation Nutrition/Malnutrition Findings: Nutrition Notes Start: 04/13/19 16:59 Freq: Status: Active Protocol: Document 04/15/19 16:39 RM (Rec: 04/15/19 16:43 RM [id number]) Nutrition Notes Initial or Follow up Reassessment Current Diagnosis Coronary Artery Disease Other Pertinent Diagnosis Hx stomach CA, Abdominal pain, GI bleed Current Diet Full liquid Labs/Tests Reviewed Pertinent Medications Reviewed Height 6 ft Weight 72.23 kg [place] Body Weight (kg) 80.90 BMI 21.6 Weight change and time frame [facility] Subjective[facility]Other Information Diet advanced to full liquid. Pt asleep at time of visit. Per pt nurse pt has been drinking 100% of her meals w/ no vomiting. Percent of energy/protein needs met: 62%/54% Burn Absent Trauma Absent #2 Nutrition Diagnosis Inadequate oral intake As Evidenced by Signs and Symptoms pt meeting 62% calorie and 54% of protein needs Diagnosis Progress(for reassessment Improved documentation) #1 Nutrition Diagnosis Underweight Diagnosis Progress(for reassessment Continues documentation) Is patient on ventilator? No Is Patient Ambulatory and/or Out of Bed No REE-(Dorset-St. Jeor-confined to bed) 1004.250 Calculation Used for Recommendations [place]-St Jeor Additional Notes Protein Needs: 69-83g (1-1.2g/ kg) Fluid Needs: 1 ml/kcal Nutrition Intervention Change Diet Order: Advance diet when medically able Add Supplement/Snack (indicate name/kcal Ensure Enlive 1 daily /protein ) Provides kCal: 350 Provides Protein (gm) 20 Goal #1 Diet advancement Anticipated Discharge Needs: Unable to determine at this time Follow-Up By: 04/18/19 Additional Comments Follow for PO and ONS intakes
[2019-04-17] MEDS: PROTONIX PO SCH ×2 (12:55→21:03)
[2019-04-17] MEDS: PERCOCET 5/325 PO PRN ×2 (14:44→21:03)
[2019-04-17] MEDS: XANAX PO PRN (17:11)
[2019-04-17] MEDS: SINEquan PO SCH (21:02)
[2019-04-17] MEDS: PRAVACHOL PO SCH (21:03)
[2019-04-18] MEDS: PERCOCET 5/325 PO PRN ×4 (02:52→20:56)
[2019-04-18] MEDS: SODIUM CHLORIDE FLUSH SYRINGE 10 ML IV SCH ×3 (02:54→22:16)
--- NOTE | 2019-04-18 07:13 | Hem/Onc Progress Note ---
Assessment and Plan 1. History of gastric cancer, EGD showing gastric mass. 2. CT shows 2 liver lesions with some nodularity. I discussed with the patient that this could be mets versus hemangioma. 3. Anemia. We will follow. 4. Thrombocytopenia, mentioned of possible cirrhosis versus other cause. 5. History of rectal bleed. 6. As per the patient, [facility]. There was a discussion for chemoradiation, but the patient was not sure. 7. History of coronary artery disease. 8. History of loss of weight. 9. Home medications mentions warfarin, reason for its use is not clear. 10. ?Radiology to see if this is hemangioma or not. egd path bx negative [facility] follow up an option PRBC -PRN iv iron 04/18 - option of CT here or at [place] - not sure if [place] already did it - Patient Problems (1) Gastric cancer Current Visit: Yes Status: Acute Qualifiers: Malignant neoplasm of stomach location: overlapping locations Qualified Code(s): C16.8 - Malignant neoplasm of overlapping sites of stomach Subjective Date of service: 04/18/19 Principal diagnosis: gastric ca Interval history: h/o abdo pain Objective - Exam Narrative Exam: Pain - pt not in distress General appearance no icterus Performance status limited self care Eyes - no icterus ENT - no thrush LNs cervical not palpable Neck - movement normal Respiratory Normal Breath sounds - CTA CVS S1 S2 + Extremities normal temperature General GI Soft Rectal deferred male - deferred Skin warm Musculoskeletal normal Neurologically AAOx3 - Constitutional Vitals: Last Vital Signs Temp 97.9 F 04/17/19 20:57 Pulse 65 04/17/19 20:57 Resp 18 04/18/19 03:52 BP 112/61 04/17/19 20:57 Pulse Ox 98 04/17/19 20:57 - Labs Lab Results: Laboratory Results - last 24 hr 04/17/19 04/17/19 04/17/19 07:18 11:30 16:41 POC Glucose 139 H 205 H 80 04/17/19 21:02 POC Glucose 136 H Medications & Allergies - Medications Allergies/Adverse Reactions: Allergies heparin Allergy (Severe, Verified 09/27/17 11:14) THROMBOCYTOPENIA HIT Home Medications: Home Medications Medication Instructions Recorded Confirmed Last Taken Type Carvedilol [Coreg] 3.125 mg PO BID #60 tablet 01/29/17 04/11/1909/28/17 Rx Doxepin [SINEquan] 100 mg PO QHS capsule 01/29/17 04/11/19 09/28/17 Rx Folic Acid [Folvite] 1 mg PO QDAY #30 tablet 01/29/17 04/11/19 Unknown Rx Hypromellose [Isopto Tears 0.5%] 2 drops OU Q4H PRN #1 bottle 01/29/17 04/11/19 09/28/17 Rx Lisinopril [Zestril TAB] 2.5 mg PO QDAY #15 tablet 01/29/17 04/11/19 09/28/17 Rx ALPRAZolam [Xanax TAB] 1 mg PO QHS PRN #30 tablet 10/01/17 04/11/19 Unknown Rx Insulin Aspart Prot/Aspart(Nf) 15 units SQ BID #2 vial 10/01/17 04/11/19 Unknown Rx [NovoLOG Mix 70/30 VIAL] Multivitamins Liq [Multiple 5 ml PO QDAY #150 oral.liqd 10/01/17 04/11/19 Unknown Rx Vitamin Liq (Theragran)] Sevelamer Carbonate [Renvela] 1,600 mg PO TIDWM #90 tablet 10/01/17 04/11/19 Unknown Rx Simvastatin (Nf) [Zocor TAB] 20 mg PO QHS #30 tablet 10/01/17 04/11/19 Unknown Rx Thiamine [Vitamin B-1] 100 mg PO QDAY #30 tablet 10/01/17 04/11/19 Unknown Rx ISOSORBIDE MONOnitrate [Imdur ER] 30 mg PO QDAY tablet 01/07/18 04/11/19 Unknown Rx Insulin NPH/Regular [NovoLIN 70/30] 15 unit SUB-Q BIDDIAB units 01/07/18 04/11/19 Unknown Rx Pantoprazole [Protonix] 40 mg PO BID #60 tablet 04/15/19 Unknown Rx oxyCODONE /ACETAMINOPHEN [Percocet 1 tab PO Q4HR PRN #20 tab 04/15/19 Unknown Rx 5/325] Active Medications: Generic Name Dose Route Start Last Admin Trade Name Freq PRN Reason Stop Dose Admin Acetaminophen 650 mg 04/12/19 05:35 04/17/19 17:11 Tylenol PO 650 mg Q4H PRN Administration Pain MILD(1-3)/Fever >100.5/VALENTINO Alprazolam 1 mg 04/15/19 09:08 04/17/19 17:11 Xanax PO 1 mg Q8H PRN Administration Anxiety Bisacodyl 10 mg 04/12/19 05:35 Dulcolax [place] QDAY PRN Constipation unrelieved by MOM Carvedilol 3.125 mg 04/12/19 10:00 04/17/19 23:13 Coreg PO Not Given BID RNEITA Doxepin HCl 100 mg 04/13/19 23:30 04/17/19 21:02 Sinequan PO 100 mg QHS RENITA Administration Folic Acid 1 mg 04/12/19 10:00 04/17/19 09:52 Folvite PO 1 mg QDAY RENITA Administration Sodium Chloride 1,000 mls @ 50 mls/hr 04/12/19 13:00 04/17/19 09:55 Nacl 0.9% 1000 Ml IV 50 mls/hr DIRECT RENITA Administration Insulin Human Isoph/Insulin Regular 6 unit 04/18/19 08:00 Humulin 70/30 SUB-Q BIDDIAB RENITA Isosorbide Mononitrate 30 mg 04/12/19 10:00 04/17/19 12:21 Imdur PO Not Given QDAY RENITA Multivitamins 5 ml 04/12/19 10:00 04/17/19 09:52 Centrum Liq PO 5 ml QDAY RENITA Administration Ondansetron HCl 4 mg 04/12/19 05:35 04/14/19 18:20 Zofran IV 4 mg Q8H PRN Administration Nausea And Vomiting Oxycodone/Acetaminophen 1 tab 04/17/19 01:07 04/18/19 02:52 Percocet 5/325 PO 1 tab Q6H PRN Administration Pain, Moderate (4-6) Pantoprazole Sodium 40 mg 04/17/19 10:00 04/17/19 21:03 Protonix PO 40 mg BID RENITA Administration Pravastatin Sodium 40 mg 04/12/19 22:00 04/17/19 21:03 Pravachol PO 40 mg QHS RENITA Administration Sevelamer Carbonate 1,600 mg 04/12/19 08:00 04/17/19 18:23 Renvela PO 1,600 mg TIDWM RENITA Administration Sodium Chloride 10 ml 04/12/19 10:00 04/18/19 02:54 Sodium Chloride Flush Syringe 10 Ml IV 10 ml BID RENITA Administration Sodium Chloride 10 ml 04/12/19 05:35 Sodium Chloride Flush Syringe 10 Ml IV PRN PRN LINE FLUSH Thiamine HCl 100 mg 04/12/19 10:00 04/17/19 09:51 Vitamin B-1 PO 100 mg QDAY RENITA Administration
[2019-04-18] MEDS: RENVELA PO SCH ×3 (08:48→18:36)
[2019-04-18] MEDS: IMDUR PO SCH (10:56)
[2019-04-18] MEDS: COREG PO SCH ×2 (10:56→22:15)
[2019-04-18] MEDS: FOLVITE PO SCH (10:59)
[2019-04-18] MEDS: PROTONIX PO SCH ×2 (10:59→22:16)
[2019-04-18] MEDS: VITAMIN B-1 PO SCH (10:59)
[2019-04-18] MEDS: Centrum Liq PO SCH (10:59)
--- NOTE | 2019-04-18 12:48 | Progress Note ---
Assessment and Plan Assessment and plan: Patient is 64-year-old male , a [facility], with PMH Of Stomach Cancer, CAD presents to the emergency department with complaint of a few days of progressively worsening generalized abdominal pain, hematochezia and Melena. . He says that he was recently diagnosed with stomach cancer through the [facility] but has not yet started any type of treatment but arrangements were being made to start treatment. He has a past medical history of hepatitis C, coronary artery disease with multiple stents and previous [place], diabetes, Dyslipidemia, COPD and tobacco abuse. Hemoglobin was 11.9. He was evaluated in ED and admitted. he was seen by GI, Surgeon and Oncology. His h/H remained stable so was never palmer sfused. he was given Protonix iv bid. EGD ws done 04/12/19 revealed gastric mass, biopsy done. Gi Bleeding resolved. I discussed with GI. Surg and Oncology and plan is to discharge home and [facility] with [facility] to [facility]. He however appealed discharge. he is however medically stable for discharge. Biopsy done here was non-diagostic:insufficent tissue. Acute GI bleeding, now resolved - GI and Surgeon following -Now on Protonix oral - EGD done 04/12 revealed gastric mass,ulcer -Discussed with GI, Oncology and Surgeon H/H has been stable Gastric cancer diagnosed at [facility], as per patient Records requested not available yet Discussed with Dr. Munroe, Oncology - he now recommends discharge home to [facility] with [facility] for [facility] management Discussed with patient. he states [facility] was working on arrangements for treatment of gastric cancer and last communication was last week Liver lesions X 2 To follow up at [facility] Hyperkalemia resolved CAD Stable No chest pain Bilateral Calcified Pleural Plaques - possible Asbetos exposure - pt told about his continued surveillance with his oncologist Subtherapeutic INR -- continue to hold Warfarin given rectal bleeding. Debility - underlying malignancy Disposition: Patient medically stable and discharged home 04/16/19 but he appealed discharge. I had discussed with Physical therapy and she stated patient can go home PT vee. There was some misunderstanding about patient needing SNF placement but incorrect. case management working on discharge. He is medically stable to go home on full liquid diet, Protonix, narcotics to follow with [facility]. History Interval history: Patient with gastric cancer presented with acute GI bleed, resolved No more bloody stools Patient discharged home but appealed discharge Hospitalist Physical - Physical exam Narrative exam: Gen: Not in acute distress, lying in bed HEENT: Normocephalic, atraumatic Neck: supple, no JVD Heart: S1 and S2 regular, no murmurs, rubs or gallop Lungs: Clear, no crackles, no wheeze Abd: soft, tender epigastric region, non distended, normal BS Ext: No edema, no clubbing, no cyanosis, Neuro: Awake,alert, oriented,moves all ext, - Constitutional Vitals: Temp Pulse Resp BP Pulse Ox 98.4 F 79 16 97/46 98 04/18/19 05:55 04/18/19 11:22 04/18/19 05:55 04/18/19 11:22 04/18/19 05:55 General appearance: Present: no acute distress Results - Labs CBC & Chem 7: 04/17/19 05:45 04/17/19 05:45 Labs: Laboratory Last Values WBC 4.8 K/mm3 (4.5-11.0) 04/17/19 05:45 RBC 2.57 M/mm3 (3.65-5.03) L 04/17/19 05:45 Hgb 8.0 gm/dl (11.8-15.2) L 04/17/19 05:45 Hct 22.5 % (35.5-45.6) L 04/17/19 05:45 MCV 87 fl (84-94) 04/17/19 05:45 MCH 31 pg (28-32) 04/17/19 05:45 MCHC 36 % (32-34) H 04/17/19 05:45 RDW 13.7 % (13.2-15.2) 04/17/19 05:45 Plt Count 168 K/mm3 (140-440) 04/17/19 05:45 Lymph % (Auto) 26.0 % (13.4-35.0) 04/15/19 04:42 [place] % (Auto) 6.6 % (0.0-7.3) 04/15/19 04:42 Eos % (Auto) 7.6 % (0.0-4.3) H 04/15/19 04:42 Baso % (Auto) 1.2 % (0.0-1.8) 04/15/19 04:42 Lymph # 1.0 K/mm3 (1.2-5.4) L 04/15/19 04:42 [place] # 0.3 K/mm3 (0.0-0.8) 04/15/19 04:42 Eos # 0.3 K/mm3 (0.0-0.4) 04/15/19 04:42 Baso # 0.0 K/mm3 (0.0-0.1) 04/15/19 04:42 Seg Neutrophils % 58.6 % (40.0-70.0) 04/15/19 04:42 Seg Neutrophils # 2.3 K/mm3 (1.8-7.7) 04/15/19 04:42 PT 14.7 Sec. (12.2-14.9) 04/13/19 05:26 INR 1.18 (0.87-1.13) H 04/13/19 05:26 APTT 27.5 Sec. (24.2-36.6) 04/11/19 20:03 345.5 ng/mlDDU (0-234) H 04/11/19 20:03 Sodium 143 mmol/L (137-145) 04/17/19 05:45 Potassium 4.4 mmol/L (3.6-5.0) 04/17/19 05:45 Chloride 108.5 mmol/L (98-107) H 04/17/19 05:45 Carbon Dioxide 25 mmol/L (22-30) 04/17/19 05:45 14 mmol/L 04/17/19 05:45 BUN 9 mg/dL (9-20) 04/17/19 05:45 0.9 mg/dL (0.8-1.5) 04/17/19 05:45 Estimated GFR > 60 ml/min 04/17/19 05:45 10 % 04/17/19 05:45 Glucose 107 mg/dL (75-100) H 04/17/19 05:45 POC Glucose 104 (70-105) 04/18/19 12:29 Calcium 8.3 mg/dL (8.4-10.2) L 04/17/19 05:45 Iron 22 ug/dL (49-181) L 04/15/19 04:42 TIBC 211 mcg/dL (250-450) L 04/15/19 04:42 92.9 ng/mL (13.0-400.0) 04/15/19 04:42 0.70 mg/dL (0.1-1.2) 04/11/19 20:03 0.2 mg/dL (0-0.2) 04/11/19 20:03 0.5 mg/dL 04/11/19 20:03 AST 14 units/L (5-40) 04/11/19 20:03 ALT 9 units/L (7-56) 04/11/19 20:03 85 units/L (35-129) 04/11/19 20:03 < 0.010 ng/mL (0.00-0.029) 04/11/19 20:45 6.8 g/dL (6.3-8.2) 04/11/19 20:03 3.1 g/dL (3.9-5) L 04/11/19 20:03 0.8 % 04/11/19 20:03 13 units/L (13-60) 04/11/19 20:03 TSH 0.050 mlU/mL (0.270-4.200) L 04/11/19 20:45 Free T4 1.46 ng/dL (0.76-1.46) 04/12/19 16:45 Blood Type A NEGATIVE 04/12/19 16:45 Antibody Screen Negative 04/12/19 16:45 Active Medications - Current Medications Current Medications: Generic Name Dose Route Start Last Admin Trade Name Freq PRN Reason Stop Dose Admin Acetaminophen 650 mg 04/12/19 05:35 04/17/19 17:11 Tylenol PO 650 mg Q4H PRN Administration Pain MILD(1-3)/Fever >100.5/VALENTINO Alprazolam 1 mg 04/15/19 09:08 04/17/19 17:11 Xanax PO 1 mg Q8H PRN Administration Anxiety Bisacodyl 10 mg 04/12/19 05:35 Dulcolax CA QDAY PRN Constipation unrelieved by MOM Carvedilol 3.125 mg 04/12/19 10:00 04/18/19 10:56 Coreg PO Not Given BID RENITA Doxepin HCl 100 mg 04/13/19 23:30 04/17/19 21:02 Sinequan PO 100 mg QHS RENITA Administration Folic Acid 1 mg 04/12/19 10:00 04/18/19 10:59 Folvite PO 1 mg QDAY RENITA Administration Sodium Chloride 1,000 mls @ 50 mls/hr 04/12/19 13:00 04/17/19 09:55 Nacl 0.9% 1000 Ml IV 50 mls/hr DIRECT RENITA Administration Insulin Human Isoph/Insulin Regular 6 unit 04/18/19 08:00 04/18/19 08:47 Humulin 70/30 SUB-Q 6 unit BIDDIAB RENITA Administration Isosorbide Mononitrate 30 mg 04/12/19 10:00 04/18/19 10:56 Imdur PO Not Given QDAY RENITA Multivitamins 5 ml 04/12/19 10:00 04/18/19 10:59 Centrum Liq PO 5 ml QDAY RENITA Administration Ondansetron HCl 4 mg 04/12/19 05:35 04/14/19 18:20 Zofran IV 4 mg Q8H PRN Administration Nausea And Vomiting Oxycodone/Acetaminophen 1 tab 04/17/19 01:07 04/18/19 08:47 Percocet 5/325 PO 1 tab Q6H PRN Administration Pain, Moderate (4-6) Pantoprazole Sodium 40 mg 04/17/19 10:00 04/18/19 10:59 Protonix PO 40 mg BID RENITA Administration Pravastatin Sodium 40 mg 04/12/19 22:00 04/17/19 21:03 Pravachol PO 40 mg QHS RENITA Administration Sevelamer Carbonate 1,600 mg 04/12/19 08:00 04/18/19 08:48 Renvela PO 1,600 mg TIDWM RENITA Administration Sodium Chloride 10 ml 04/12/19 10:00 04/18/19 11:00 Sodium Chloride Flush Syringe 10 Ml IV 10 ml BID RENITA Administration Sodium Chloride 10 ml 04/12/19 05:35 Sodium Chloride Flush Syringe 10 Ml IV PRN PRN LINE FLUSH Thiamine HCl 100 mg 04/12/19 10:00 04/18/19 10:59 Vitamin B-1 PO 100 mg QDAY RENITA Administration Nutrition/Malnutrition Assess - Dietary Evaluation Nutrition/Malnutrition Findings: Nutrition Notes Start: 04/13/19 16:59 Freq: Status: Active Protocol: Document 04/15/19 16:39 RM (Rec: 04/15/19 16:43 RM [id number]) Nutrition Notes Initial or Follow up Reassessment Current Diagnosis Coronary Artery Disease Other Pertinent Diagnosis Hx stomach CA, Abdominal pain, GI bleed Current Diet Full liquid Labs/Tests Reviewed Pertinent Medications Reviewed Height 6 ft Weight 72.23 kg [place] Body Weight (kg) 80.90 BMI 21.6 Weight change and time frame Current wt obtained from bedscale Subjective/Other Information Diet advanced to full liquid. Pt asleep at time of visit. Per pt nurse pt has been drinking 100% of her meals w/ no vomiting. Percent of energy/protein needs met: 62%/54% Burn Absent Trauma Absent #2 Nutrition Diagnosis Inadequate oral intake As Evidenced by Signs and Symptoms pt meeting 62% calorie and 54% of protein needs Diagnosis Progress(for reassessment Improved documentation) #1 Nutrition Diagnosis Underweight Diagnosis Progress(for reassessment Continues documentation) Is patient on ventilator? No Is Patient Ambulatory and/or Out of Bed No REE-([facility]-confined to bed) [phone] Calculation Used for Recommendations [facility] Additional Notes Protein Needs: 69-83g (1-1.2g/ kg) Fluid Needs: 1 ml/kcal Nutrition Intervention Change Diet Order: Advance diet when medically able Add Supplement/Snack (indicate name/kcal Ensure Enlive 1 daily /protein ) Provides kCal: 350 Provides Protein (gm) 20 Goal #1 Diet advancement Anticipated Discharge Needs: Unable to determine at this time Follow-Up By: 04/18/19 Additional Comments Follow for PO and ONS intakes
[2019-04-18] MEDS: NACL 0.9% 1000 ML 1,000 ML IV SCH ×2 (18:41→22:22)
[2019-04-18] MEDS ORDERED: NACL 0.9% 500 ML 500 ML IV ONE (18:50)
[2019-04-18] MEDS: PRAVACHOL PO SCH (22:15)
[2019-04-18] MEDS: SINEquan PO SCH (22:16)
[2019-04-19] MEDS: PERCOCET 5/325 PO PRN ×4 (03:03→19:51)
--- NOTE | 2019-04-19 07:44 | Hem/Onc Progress Note ---
Assessment and Plan 1. History of gastric cancer, EGD showing gastric mass. 2. CT shows 2 liver lesions with some nodularity. I discussed with the patient that this could be mets versus hemangioma. 3. Anemia. We will follow. 4. Thrombocytopenia, mentioned of possible cirrhosis versus other cause. 5. History of rectal bleed. 6. As per the patient, the [facility]. There was a discussion for chemoradiation, but the patient was not sure. 7. History of coronary artery disease. 8. History of loss of weight. 9. Home medications mentions warfarin, reason for its use is not clear. 10. ?Radiology to see if this is hemangioma or not. egd path bx negative [facility] follow up an option PRBC -PRN iv iron 04/19 - option of CT here or at [facility] - not sure if [facility] already did it is on pain meds - Patient Problems (1) Gastric cancer Status: Acute Qualifiers: Malignant neoplasm of stomach location: overlapping locations Qualified Code(s): C16.8 - Malignant neoplasm of overlapping sites of stomach Subjective Date of service: 04/19/19 Principal diagnosis: gastric ca as per hx Interval history: abdo discomfort - wants pain meds Objective - Exam Narrative Exam: Pain - pt not in distress General appearance no icterus Performance status limited self care Eyes - no icterus ENT - no thrush LNs cervical not palpable Neck - movement normal Respiratory Normal Breath sounds - CTA CVS S1 S2 + Extremities normal temperature General GI Soft Rectal deferred male - deferred Skin warm Musculoskeletal normal Neurologically AAOx3 - Constitutional Vitals: Last Vital Signs Temp 98.6 F 04/19/19 05:35 Pulse 59 L 04/19/19 05:35 Resp 17 04/19/19 05:35 BP 125/62 04/19/19 05:35 Pulse Ox 96 04/19/19 05:35 - Labs Lab Results: Laboratory Results - last 24 hr 04/14/19 04/18/19 04/18/19 05:22 08:12 12:29 POC Glucose 97 104 CA 19-9 Antigen 17 04/18/19 04/18/19 16:25 22:00 POC Glucose 90 80 CA 19-9 Antigen Medications & Allergies - Medications Allergies/Adverse Reactions: Allergies heparin Allergy (Severe, Verified 09/27/17 11:14) THROMBOCYTOPENIA HIT Home Medications: Home Medications Medication Instructions Recorded Confirmed Last Taken Type Carvedilol [Coreg] 3.125 mg PO BID #60 tablet 01/29/17 04/11/19 09/28/17 Rx Doxepin [SINEquan] 100 mg PO QHS capsule 01/29/17 04/11/19 09/28/17 Rx Folic Acid [Folvite] 1 mg PO QDAY #30 tablet 01/29/17 04/11/19 Unknown Rx Hypromellose [Isopto Tears 0.5%] 2 drops OU Q4H PRN #1 bottle 01/29/17 04/11/19 09/28/17 Rx Lisinopril [Zestril TAB] 2.5 mg PO QDAY #15 tablet 01/29/17 04/11/19 09/28/17 Rx ALPRAZolam [Xanax TAB] 1 mg PO QHS PRN #30 tablet 10/01/17 04/11/19 Unknown Rx Insulin Aspart Prot/Aspart(Nf) 15 units SQ BID #2 vial 10/01/17 04/11/19 Unknown Rx [NovoLOG Mix 70/30 VIAL] Multivitamins Liq [Multiple 5 ml PO QDAY #150 oral.liqd 10/01/17 04/11/19 Unknown Rx Vitamin Liq (Theragran)] Sevelamer Carbonate [Renvela] 1,600 mg PO TIDWM #90 tablet 10/01/17 04/11/19 Unknown Rx Simvastatin (Nf) [Zocor TAB] 20 mg PO QHS #30 tablet 10/01/17 04/11/19 Unknown Rx Thiamine [Vitamin B-1] 100 mg PO QDAY #30 tablet 10/01/17 04/11/19 Unknown Rx ISOSORBIDE MONOnitrate [Imdur ER] 30 mg PO QDAY tablet 01/07/18 04/11/19 Unknown Rx Insulin NPH/Regular [NovoLIN 70/30] 15 unit SUB-Q BIDDIAB units 01/07/18 04/11/19 Unknown Rx Pantoprazole [Protonix] 40 mg PO BID #60 tablet 04/15/19 Unknown Rx oxyCODONE /ACETAMINOPHEN [Percocet 1 tab PO Q4HR PRN #20 tab 04/15/19 Unknown Rx 5/325] Active Medications: Generic Name Dose Route Start Last Admin Trade Name Freq PRN Reason Stop Dose Admin Acetaminophen 650 mg 04/12/19 05:35 04/17/19 17:11 Tylenol PO 650 mg Q4H PRN Administration Pain MILD(1-3)/Fever >100.5/VALENTINO Alprazolam 1 mg 04/15/19 09:08 04/17/19 17:11 Xanax PO 1 mg Q8H PRN Administration Anxiety Bisacodyl 10 mg 04/12/19 05:35 Dulcolax MS QDAY PRN Constipation unrelieved by MOM Carvedilol 3.125 mg 04/12/19 10:00 04/18/19 22:15 Coreg PO Not Given BID RENITA Doxepin HCl 100 mg 04/13/19 23:30 04/18/19 22:16 Sinequan PO 100 mg QHS RENITA Administration Folic Acid 1 mg 04/12/19 10:00 04/18/19 10:59 Folvite PO 1 mg QDAY RENITA Administration Sodium Chloride 1,000 mls @ 50 mls/hr 04/12/19 13:00 04/18/19 22:22 Nacl 0.9% 1000 Ml IV 50 mls/hr DIRECT RENITA Administration Insulin Human Isoph/Insulin Regular 6 unit 04/18/19 08:00 04/18/19 17:00 Humulin 70/30 SUB-Q 6 unit BIDDIAB RENITA Administration Isosorbide Mononitrate 30 mg 04/12/19 10:00 04/18/19 10:56 Imdur PO Not Given QDAY RENITA Multivitamins 5 ml 04/12/19 10:00 04/18/19 10:59 Centrum Liq PO 5 ml QDAY RENITA Administration Ondansetron HCl 4 mg 04/12/19 05:35 04/14/19 18:20 Zofran IV 4 mg Q8H PRN Administration Nausea And Vomiting Oxycodone/Acetaminophen 1 tab 04/19/19 06:23 04/19/19 06:41 Percocet 5/325 PO 1 tab Q4H PRN Administration Pain, Moderate (4-6) Pantoprazole Sodium 40 mg 04/17/19 10:00 04/18/19 22:16 Protonix PO 40 mg BID RENITA Administration Pravastatin Sodium 40 mg 04/12/19 22:00 04/18/19 22:15 Pravachol PO 40 mg QHS RENITA Administration Sevelamer Carbonate 1,600 mg 04/12/19 08:00 04/18/19 18:36 Renvela PO 1,600 mg TIDWM RENITA Administration Sodium Chloride 10 ml 04/12/19 10:00 04/18/19 22:16 Sodium Chloride Flush Syringe 10 Ml IV 10 ml BID RENITA Administration Sodium Chloride 10 ml 04/12/19 05:35 Sodium Chloride Flush Syringe 10 Ml IV PRN PRN LINE FLUSH Thiamine HCl 100 mg 04/12/19 10:00 04/18/19 10:59 Vitamin B-1 PO 100 mg QDAY RENITA Administration
[2019-04-19] MEDS: PROTONIX PO SCH (09:14)
[2019-04-19] MEDS: COREG PO SCH (09:14)
[2019-04-19] MEDS: IMDUR PO SCH (09:14)
[2019-04-19] MEDS: RENVELA PO SCH ×3 (09:14→19:57)
[2019-04-19] MEDS: Centrum Liq PO SCH (09:14)
[2019-04-19] MEDS: FOLVITE PO SCH (09:14)
[2019-04-19] MEDS: SODIUM CHLORIDE FLUSH SYRINGE 10 ML IV SCH (09:15)
[2019-04-19] MEDS: VITAMIN B-1 PO SCH (09:18)
[2019-04-19] MEDS: XANAX PO PRN (12:24)
--- NOTE | 2019-04-19 12:33 | Discharge Summary ---
Providers - Providers Date of Admission: 04/12/19 05:35 Date of discharge: 04/19/19 Attending physician: KENIA MAST 04/12/19 05:35 Consult to Physician [CONS] Routine Comment: Consulting Provider: HALINA NUGENT Physician Instructions: Reason For Exam: gi bleeding 04/12/19 05:55 Occupational Therapy Evaluate and Treat [CONS] Routine Comment: Reason For Exam: debility Physical Therapy Evaluation and Treat [CONS] Routine Comment: Reason For Exam: debility 04/12/19 14:51 Consult to Physician [CONS] Routine Comment: called office/ nikos Consulting Provider: KERRY DE LOS SANTOS Physician Instructions: Reason For Exam: gastric mass 04/12/19 15:01 Consult to Physician [CONS] Routine Comment: called office/nikos Consulting Provider: ALLYSON MUNROE Physician Instructions: Reason For Exam: gastric cancer Primary care physician: POLINA WOODALL Hospitalization Condition: Fair Hospital course: Patient is 64-year-old male , a [facility], with PMH Of Stomach Cancer, CAD presents to the emergency department with complaint of a few days of progressively worsening generalized abdominal pain, hematochezia and Melena. . He says that he was recently [facility] but has not yet started any type of treatment but arrangements were being made to start treatment. He has a past medical history of hepatitis C, coronary artery disease with multiple stents and previous [place], diabetes, Dyslipidemia, COPD and tobacco abuse. Hemoglobin was 11.9. He was evaluated in ED and admitted. he was seen by GI, Surgeon and Oncology. His h/H remained stable so was never transfused. he was given Protonix iv bid. EGD ws done 04/12/19 revealed gastric mass, biopsy done. Gi Bleeding resolved. I discussed with GI. Surg and Oncology and plan is to discharge home and follow with [facility] to [facility]. He however appealed discharge. he is however medically stable for discharge. Biopsy done here was non-diagostic:insufficent tissue. Disposition: Patient medically stable and discharged home 04/16/19 but he appealed discharge. I had discussed with Physical therapy and she stated patient can go home PT vee. There was some misunderstanding about patient needing SNF placement but incorrect. case management working on discharge. He is medically stable to go home on full liquid diet, Protonix, narcotics [facility] follow with [facility]. Discharge diagnosis: Acute GI bleeding, now resolved - GI and Surgeon following -Now on Protonix oral - EGD done 04/12 revealed gastric mass,ulcer -Discussed with GI, Oncology and Surgeon H/H has been stable Gastric cancer diagnosed at [facility], as per patient Records requested not available yet Discussed with Dr. Munroe, Oncology - he now recommends discharge home to follow with [facility] for further management Discussed with patient. he states [facility] was working on arrangements for treatment of gastric cancer and last communication was last week Liver lesions X 2 To follow up at [facility] Hyperkalemia resolved CAD Stable No chest pain Bilateral Calcified Pleural Plaques - possible Asbetos exposure - pt told about his continued surveillance with his oncologist Subtherapeutic INR -- continue to hold Warfarin given rectal bleeding. Debility - due to underlying malignancy - cleared by PT for d/c Hospitalist Physical Gen: Not in acute distress, lying in bed HEENT: Normocephalic, atraumatic Neck: supple, no JVD Heart: S1 and S2 regular, no murmurs, rubs or gallop Lungs: Clear, no crackles, no wheeze Abd: soft, tender epigastric region, non distended, normal BS Ext: No edema, no clubbing, no cyanosis, Neuro: Awake,alert, oriented,moves all ext, Disposition: [id number] HOME UNDER HOME [facility] Time spent for discharge: 34 minutes Core Measure Documentation - Palliative Care Palliative Care/ Comfort Measures: Not Applicable - Core Measures Any of the following diagnoses?: none Exam - Constitutional Vitals: Temp Pulse Resp BP Pulse Ox 98.6 F 59 L 17 125/62 96 04/19/19 05:35 04/19/19 05:35 04/19/19 05:35 04/19/19 05:35 04/19/19 05:35 Plan Activity: advance as tolerated, fall precautions Weight Bearing Status: Non-Weight Bearing Diet: advance as tolerated Follow up with: POLINA WOODALL MD [Primary Care Provider] - 3-5 Days Forms: Accompanied Note Prescriptions: oxyCODONE /ACETAMINOPHEN [Percocet 5/325] 1 tab PO Q4HR PRN #20 tab PRN Reason: Pain , Severe (7-10) Pantoprazole [Protonix] 40 mg PO BID #60 tablet
[2019-04-19 17:21] VITALS: BP 100/58
== END 2019-04-19 22:10 | disposition home health service (06) | DRG 374 ==
LOC: ED 19:35 → 2B-ACE 04-12 05:35 → IMCU 04-12 20:00 → 3A 04-15 16:54
PROVIDERS: ADMIT Hospitalist; ATTEND Internal Medicine
PROC: 0DB68ZX Excision of Stomach, Via Natural or Artificial Opening Endoscopic, Diagnostic (ICD-10-PCS; principal; 2019-04-12)
DX: C16.8 Malignant neoplasm of overlapping sites of stomach (principal); K25.4 Chronic or unspecified gastric ulcer with hemorrhage; E87.5 Hyperkalemia; B19.20 Unspecified viral hepatitis C without hepatic coma; I25.10 Atherosclerotic heart disease of native coronary artery without angina pectoris; I25.2 Old myocardial infarction; J44.9 Chronic obstructive pulmonary disease, unspecified; I11.0 Hypertensive heart disease with heart failure; I50.9 Heart failure, unspecified; M19.90 Unspecified osteoarthritis, unspecified site; E11.9 Type 2 diabetes mellitus without complications; F17.210 Nicotine dependence, cigarettes, uncomplicated; R16.0 Hepatomegaly, not elsewhere classified; E78.5 Hyperlipidemia, unspecified; J92.9 Pleural plaque without asbestos; K74.60 Unspecified cirrhosis of liver; D64.9 Anemia, unspecified; D69.6 Thrombocytopenia, unspecified; K44.9 Diaphragmatic hernia without obstruction or gangrene; Z95.5 Presence of coronary angioplasty implant and graft; Z79.4 Long term (current) use of insulin; Z79.82 Long term (current) use of aspirin
CPT/HCPCS: 36415; 71275; 74022; 74177; 80048; 80076; 82106; 82728; 82962; 83550; 83690; 84439; 84443; 84484; 85014; 85018; 85025; 85027; 85379; 85610; 85730; 86301; 86850; 86900; 86901; 87116; 88305; 88342; 93005; 93010; G0378; A9270-GY; C9113; J1170; J1815; J2250; J2270; J2354; J2405; J2704; J2916; J3010; J7030; J7042; Q9967

== ENCOUNTER 2019-05-30 02:44 | Emergency (ER) | payer MEDICARE ==
--- NOTE | 2019-05-30 03:19 | Emergency Department Report ---
ED General Adult HPI - General Chief complaint: Abdominal Pain Stated complaint: ABDOMINAL PAIN Time Seen by Provider: 05/30/19 03:16 Source: patient, EMS Mode of arrival: Stretcher Limitations: No Limitations - History of Present Illness Initial comments: 64-year-old male with a history of gastric cancer for which he has had chemotherapy 7 months ago resents with the complaint of abdominal pain. Patient states he has had abdominal pain worsened despite his by mouth narcotic therapy for the past hour. Patient has had a EGD recently performed at this facility in April 2019 which showed a gastric mass and ulcer. [facility] Patient states that he has not been able to see if he has had blood in his stool this time. Patient denies any chest pain. Patient states the pain is his abdomen is 10 out of 10. - Related Data Previous Rx's Medication Instructions Recorded Last Taken Type Carvedilol [Coreg] 3.125 mg PO BID #60 tablet 01/29/17 09/28/17 Rx Doxepin [SINEquan] 100 mg PO QHS capsule 01/29/17 09/28/17 Rx Folic Acid [Folvite] 1 mg PO QDAY #30 tablet 01/29/17 Unknown Rx Hypromellose [Isopto Tears 0.5%] 2 drops OU Q4H PRN #1 bottle 01/29/17 09/28/17 Rx Lisinopril [Zestril TAB] 2.5 mg PO QDAY #15 tablet 01/29/17 09/28/17 Rx ALPRAZolam [Xanax TAB] 1 mg PO QHS PRN #30 tablet 10/01/17 Unknown Rx Insulin Aspart Prot/Aspart(Nf) 15 units SQ BID #2 vial 10/01/17 Unknown Rx [NovoLOG Mix 70/30 VIAL] Multivitamins Liq [Multiple 5 ml PO QDAY #150 oral.liqd 10/01/17 Unknown Rx Vitamin Liq (Theragran)] Sevelamer Carbonate [Renvela] 1,600 mg PO TIDWM #90 tablet 10/01/17 Unknown Rx Simvastatin (Nf) [Zocor TAB] 20 mg PO QHS #30 tablet 10/01/17 Unknown Rx Thiamine [Vitamin B-1] 100 mg PO QDAY #30 tablet 10/01/17 Unknown Rx ISOSORBIDE MONOnitrate [Imdur ER] 30 mg PO QDAY tablet 01/07/18 Unknown Rx Insulin NPH/Regular [NovoLIN 70/30] 15 unit SUB-Q BIDDIAB units 01/07/18 Unknown Rx Pantoprazole [Protonix] 40 mg PO BID #60 tablet 04/15/19 Unknown Rx oxyCODONE /ACETAMINOPHEN [Percocet 1 tab PO Q4HR PRN #20 tab 04/15/19 Unknown Rx 5/325] Allergies Allergy/AdvReac Type Severity Reaction Status Date / Time heparin Allergy Severe THROMBOCYTO Verified 09/27/17 11:14 PENIA ED Review of Systems ROS: Stated complaint: ABDOMINAL PAIN Other details as noted in HPI Constitutional: denies: chills, fever Eyes: denies: eye pain, eye discharge, vision change ENT: denies: ear pain, throat pain Respiratory: denies: cough, shortness of breath, wheezing Cardiovascular: denies: chest pain, palpitations Endocrine: no symptoms reported Gastrointestinal: abdominal pain Genitourinary: denies: urgency, dysuria Musculoskeletal: denies: back pain, joint swelling, arthralgia Skin: denies: rash, lesions Neurological: denies: headache, weakness, paresthesias Psychiatric: denies: anxiety, depression Hematological/Lymphatic: denies: easy bleeding, easy bruising ED Past Medical Hx - Past Medical History Hx Hypertension: Yes Hx Heart Attack/AMI: Yes Hx Congestive Heart Failure: Yes Hx Diabetes: Yes (5 Yrs) Hx Arthritis: Yes Hx Asthma: No Hx COPD: Yes Hx HIV: No Additional medical history: hep c - Surgical History Hx Coronary Stent: Yes (7 stents) Hx Open Heart Surgery: No Hx Cholecystectomy: No Hx Appendectomy: No Hx Breast Surgery: No - Social History Smoking Status: Current Every Day Smoker - Medications Home Medications: Home Medications Medication Instructions Recorded Confirmed Last Taken Type Carvedilol [Coreg] 3.125 mg PO BID #60 tablet 01/29/17 04/11/19 09/28/17 Rx Doxepin [SINEquan] 100 mg PO QHS capsule 01/29/17 04/11/19 09/28/17 Rx Folic Acid [Folvite] 1 mg PO QDAY #30 tablet 01/29/17 04/11/19 Unknown Rx Hypromellose [Isopto Tears 0.5%] 2 drops OU Q4H PRN #1 bottle 01/29/17 04/11/19 09/28/17 Rx Lisinopril [Zestril TAB] 2.5 mg PO QDAY #15 tablet 01/29/17 04/11/19 09/28/17 Rx ALPRAZolam [Xanax TAB] 1 mg PO QHS PRN #30 tablet 10/01/17 04/11/19 Unknown Rx Insulin Aspart Prot/Aspart(Nf) 15 units SQ BID #2 vial 10/01/17 04/11/19 Unknown Rx [NovoLOG Mix 70/30 VIAL] Multivitamins Liq [Multiple 5 ml PO QDAY #150 oral.liqd 10/01/17 04/11/19 Unknown Rx Vitamin Liq (Theragran)] Sevelamer Carbonate [Renvela] 1,600 mg PO TIDWM #90 tablet 10/01/17 04/11/19 Unknown Rx Simvastatin (Nf) [Zocor TAB] 20 mg PO QHS #30 tablet 10/01/17 04/11/19 Unknown Rx Thiamine [Vitamin B-1] 100 mg PO QDAY #30 tablet 10/01/17 04/11/19 Unknown Rx ISOSORBIDE MONOnitrate [Imdur ER] 30 mg PO QDAY tablet 01/07/18 04/11/19 Unknown Rx Insulin NPH/Regular [NovoLIN 70/30] 15 unit SUB-Q BIDDIAB units 01/07/18 04/11/19 Unknown Rx Pantoprazole [Protonix] 40 mg PO BID #60 tablet 04/15/19 Unknown Rx oxyCODONE /ACETAMINOPHEN [Percocet 1 tab PO Q4HR PRN #20 tab 04/15/19 Unknown Rx 5/325] ED Physical Exam - General Limitations: No Limitations General appearance: alert, other (uncomfortable; dehydrated) - Head Head exam: Present: atraumatic, normocephalic - Eye Eye exam: Present: normal appearance, other (pale conjunnctive) - ENT ENT exam: Present: mucous membranes dry - Neck Neck exam: Present: normal inspection - Respiratory Respiratory exam: Present: normal lung sounds bilaterally. Absent: respiratory distress - Cardiovascular Cardiovascular Exam: Present: regular rate, normal rhythm. Absent: systolic murmur, diastolic murmur, rubs, gallop - GI/Abdominal GI/Abdominal exam: Present: soft, tenderness (difusely in abdomen), normal bowel sounds - Rectal Rectal exam: Present: deferred - Extremities Exam Extremities exam: Present: normal inspection - Back Exam Back exam: Present: normal inspection - Neurological Exam Neurological exam: Present: alert, oriented X3 - Psychiatric Psychiatric exam: Present: normal affect, normal mood - Skin Skin exam: Present: warm, dry, intact, normal color. Absent: rash ED Course Vital Signs 05/30/19 05/30/19 05/30/19 03:09 03:22 04:00 Temperature 98.1 F Pulse Rate 95 H 84 Respiratory 20 14 22 Rate Blood Pressure 89/59 108/60 O2 Sat by Pulse 95 99 95 Oximetry 05/30/19 05/30/19 05:00 06:01 Temperature Pulse Rate 99 H 87 Respiratory 22 18 Rate Blood Pressure 93/52 97/55 O2 Sat by Pulse 97 Oximetry ED Medical Decision Making - Lab Data Result diagrams: 05/30/19 03:42 05/30/19 03:42 - Medical Decision Making Patient noted to have pneumoperitoneum. This was discussed with Dr. Lee who was covering for Dr. Suero who previously saw the patient in consultation last April and stated the patient was then acute surgical candidate. Regarding the pneumoperitoneum patient's blood pressure improved to where he had a map that was greater than 65. Patient received IV fluids and was typed and crossed for 2 units of packed red blood cells as he was also noted to be anemic at 7.6. Patient was noted to have melena on rectal examination. Afrter discussion with Dr. Lee, she states to transfer the patient for continued management and treatment to a tertiary facility where patient can receive more acute management of his oncologic illness as well as the pneumoperitoneum. [facility] stated [facility] not [facility] any transfers of patient has a wound eversion. 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 Critical Care Time: Yes Critical care time in (mins) excluding proc time.: 45 Critical care attestation.: If time is entered above; I have spent that time in minutes in the direct care of this critically ill patient, excluding procedure time. Critical Care time includes time spent on direct bedside care, physician consultation, and frequent reassessment. ED Disposition Clinical Impression: GI bleed, Pneumoperitoneum Disposition: DC/TX-70 ANOTHER TYPE HLTHCARE Is pt being admited?: No Condition: Stable Referrals: POLINA WOODALL MD [Primary Care Provider] - 3-5 Days Time of Disposition: 07:48 Print Language: CUBAN
[2019-05-30] MEDS ORDERED: PROTONIX IV ONE ×2 (03:41→05:57)
[2019-05-30] MEDS ORDERED: NACL 0.9% 1000 ML 1,000 ML IV ONE ×2 (03:41→06:23)
[2019-05-30] MEDS ORDERED: SUBLIMAZE IV ONE ×2 (03:42→06:50)
[2019-05-30] MEDS ORDERED: ZOFRAN IV ONE (03:42)
[2019-05-30 03:52] LABS: Hematocrit 23.2 % (35.5-45.6); Hemoglobin 7.6 gm/dl (11.8-15.2); Mean Corpuscular HGB Conc 33 % (32-34); Mean Corpuscular Volume 86 fl (84-94); Platelet Count 405 K/mm3 (140-440); Red Blood Count 2.71 M/mm3 (3.65-5.03); Red Cell Distribution Width 16.1 % (13.2-15.2)
[2019-05-30 04:12] LABS: Calcium 8.8 mg/dL (8.4-10.2)
--- NOTE | 2019-05-30 04:30 | Cat Scan Report ---
CT abdomen pelvis wo con INDICATION / CLINICAL INFORMATION: Upper abdominal pain. Nausea, Vomiting.. TECHNIQUE: All CT scans at this location are performed using CT dose reduction for ALARA by means of automated e xposure control. COMPARISON: None available. FINDINGS: ABDOMEN: There is a small pneumoperitoneum. There is minimal ascites. There is minimal high density f luid adjacent to the inferior tip of the liver. There is mild inflammation in the peritoneal fat in t his region. The gastric wall is diffusely thickened. There is an ulcer involving the anterior/superio r wall of the distal gastric body/antrum. There are multiple calcified pleural plaques bilaterally. There are a couple of calcified gallstones without evidence of acute cholecystitis. The bile ducts, pancreas, spleen, adrenal glands and kidneys demonstrate no significant abnormality. There are marked atherosclerotic calcifications involving th e abdominal aorta and its branches without aneurysm. There is mild tree-in-bud parenchymal disease in both lower lobes, greater on the right. PELVIS: The distal ureters and urinary bladder are normal. There is minimal free fluid in the pelvis. A normal appendix is present. There is no evidence of diverticulitis. I do not identify a hernia. Th ere are advanced degenerative changes in the lower lumbar spine. IMPRESSION: 1. Small pneumoperitoneum. The findings are probably related to a perforated gastric ulcer. Diffuse t hickening of the wall the stomach is more likely related to gastritis than neoplasm. 2. Cholelithiasis. CRITICAL RESULT: Time of Discovery: 3:15 AM Time of Communication: 3:17 AM Licensed Practitioner Receiving Report: Dr. Tsang Signer Name: Srinivasa Dunlap MD Signed: 05/30/2019 4:26 AM Workstation Name: [employer]
[2019-05-30] MEDS ORDERED: ZOFRAN ONE (05:58)
[2019-05-30] MEDS ORDERED: NACL 0.9% 500 ML 500 ML IV ONE ×2 (06:49→07:45)
[2019-05-30] MEDS ORDERED: PROTONIX 80 MG in NACL 0.9% 100 ML IV SCH (07:00)
[2019-05-30] MEDS ORDERED: DILAUDID IV ONE (08:10)
--- NOTE | 2019-05-30 08:34 | Consultation ---
History of Present Illness Consult date: 05/30/19 Reason for consult: abdominal pain - History of present illness History of present illness: 64 yo male with PMH of extensive Stomach Cancer, varices, CAD presents to the emergency department with complaint of severe abdominal pain that started yesterday. If has been associated with nausea and vomiting. He has noted some blood in his vomit. Abdominal pain is all over. No alleviating or exacerbating factors. Pt has been undergoing chemotherapy per notes. Per ER the patient had melena. Surgery consulted overnight for findings of pneumoperitoneum on CT scan. Past History Past Medical History: acute [place], CAD, cancer (gastric), COPD, hepatitis (c), hyperlipidemia, other (varices) Past Surgical History: Other (coronary stents) Social history: smoking (1PPD). denies: alcohol abuse, prescription drug abuse, IV drug use Family history: no significant family history Medications and Allergies Allergies Allergy/AdvReac Type Severity Reaction Status Date / Time heparin Allergy Severe THROMBOCYTO Verified 09/27/17 11:14 PENIA Home Medications Medication Instructions Recorded Confirmed Last Taken Type Carvedilol [Coreg] 3.125 mg PO BID #60 tablet 01/29/17 04/11/19 09/28/17 Rx Doxepin [SINEquan] 100 mg PO QHS capsule 01/29/17 04/11/19 09/28/17 Rx Folic Acid [Folvite] 1 mg PO QDAY #30 tablet 01/29/17 04/11/19 Unknown Rx Hypromellose [Isopto Tears 0.5%] 2 drops OU Q4H PRN #1 bottle 01/29/17 04/11/19 09/28/17 Rx Lisinopril [Zestril TAB] 2.5 mg PO QDAY #15 tablet 01/29/17 04/11/19 09/28/17 Rx ALPRAZolam [Xanax TAB] 1 mg PO QHS PRN #30 tablet 10/01/17 04/11/19 Unknown Rx Insulin Aspart Prot/Aspart(Nf) 15 units SQ BID #2 vial 10/01/17 04/11/19 Unknown Rx [NovoLOG Mix 70/30 VIAL] Multivitamins Liq [Multiple 5 ml PO QDAY #150 oral.liqd 10/01/17 04/11/19 Unknown Rx Vitamin Liq (Theragran)] Sevelamer Carbonate [Renvela] 1,600 mg PO TIDWM #90 tablet 10/01/17 04/11/19 Unknown Rx Simvastatin (Nf) [Zocor TAB] 20 mg PO QHS #30 tablet 10/01/17 04/11/19 Unknown Rx Thiamine [Vitamin B-1] 100 mg PO QDAY #30 tablet 10/01/17 04/11/19 Unknown Rx ISOSORBIDE MONOnitrate [Imdur ER] 30 mg PO QDAY tablet 01/07/18 04/11/19 Unknown Rx Insulin NPH/Regular [NovoLIN 70/30] 15 unit SUB-Q BIDDIAB units 01/07/18 04/11/19 Unknown Rx Pantoprazole [Protonix] 40 mg PO BID #60 tablet 04/15/19 Unknown Rx oxyCODONE /ACETAMINOPHEN [Percocet 1 tab PO Q4HR PRN #20 tab 04/15/19 Unknown Rx 5/325] Active Meds: Active Medications Pantoprazole Sodium 80 mg/ (Sodium Chloride) 100 mls @ 10 mls/hr IV DIRECT RENITA Last Admin: 05/30/19 07:30 Dose: 8 mg/hr, 10 mls/hr Documented by: Review of Systems All systems: negative (negative except for that listed in HPI) Exam Vital Signs Temp Pulse Resp BP Pulse Ox 98.1 F 95 H 20 89/59 95 05/30/19 03:09 05/30/19 03:09 05/30/19 03:09 05/30/19 03:09 05/30/19 03:09 Narrative exam: Gen: AAOx3. moderate distress due to pain CV: S1, S2+ Resp: even and unlabored Abd: soft, diffusely tender, + guarding Ext: no c/c/e Results - Labs 05/30/19 03:42 05/30/19 03:42 Abnormal lab results 05/30/19 05/30/19 05/30/19 Range/Units 03:42 03:42 03:42 WBC 11.9 H (4.5-11.0) K/mm3 RBC 2.71 L (3.65-5.03) M/mm3 Hgb 7.6 L (11.8-15.2) gm/dl Hct 23.2 L (35.5-45.6) % RDW 16.1 H (13.2-15.2) % Carbon Dioxide 18 L (22-30) mmol/L BUN 49 H (9-20) mg/dL Creatinine 1.6 H (0.8-1.5) mg/dL Glucose 271 H (75-100) mg/dL Total Creatine Kinase 20 L (55-170) units/L Albumin 3.0 L (3.9-5) g/dL Crossmatch 05/30/19 Range/Units 07:15 WBC (4.5-11.0) K/mm3 RBC (3.65-5.03) M/mm3 Hgb (11.8-15.2) gm/dl Hct (35.5-45.6) % RDW (13.2-15.2) % Carbon Dioxide (22-30) mmol/L BUN (9-20) mg/dL Creatinine (0.8-1.5) mg/dL Glucose (75-100) mg/dL Total Creatine Kinase (55-170) units/L Albumin (3.9-5) g/dL Crossmatch See Detail Diabetes panel 05/30/19 Range/Units 03:42 Sodium 140 (137-145) mmol/L Potassium 4.6 (3.6-5.0) mmol/L Chloride 105.5 (98-107) mmol/L Carbon Dioxide 18 L (22-30) mmol/L BUN 49 H (9-20) mg/dL Creatinine 1.6 H (0.8-1.5) mg/dL Glucose 271 H (75-100) mg/dL Calcium 8.8 (8.4-10.2) mg/dL AST 14 (5-40) units/L ALT 9 (7-56) units/L Alkaline Phosphatase 96 (35-129) units/L Total Protein 7.1 (6.3-8.2) g/dL Albumin 3.0 L (3.9-5) g/dL Calcium panel 05/30/19 Range/Units 03:42 Calcium 8.8 (8.4-10.2) mg/dL Albumin 3.0 L (3.9-5) g/dL Pituitary panel 05/30/19 Range/Units 03:42 Sodium 140 (137-145) mmol/L Potassium 4.6 (3.6-5.0) mmol/L Chloride 105.5 (98-107) mmol/L Carbon Dioxide 18 L (22-30) mmol/L BUN 49 H (9-20) mg/dL Creatinine 1.6 H (0.8-1.5) mg/dL Glucose 271 H (75-100) mg/dL Calcium 8.8 (8.4-10.2) mg/dL Adrenal panel 05/30/19 Range/Units 03:42 Sodium 140 (137-145) mmol/L Potassium 4.6 (3.6-5.0) mmol/L Chloride 105.5 (98-107) mmol/L Carbon Dioxide 18 L (22-30) mmol/L BUN 49 H (9-20) mg/dL Creatinine 1.6 H (0.8-1.5) mg/dL Glucose 271 H (75-100) mg/dL Calcium 8.8 (8.4-10.2) mg/dL Total Bilirubin 0.30 (0.1-1.2) mg/dL AST 14 (5-40) units/L ALT 9 (7-56) units/L Alkaline Phosphatase 96 (35-129) units/L Total Protein 7.1 (6.3-8.2) g/dL Albumin 3.0 L (3.9-5) g/dL - Imaging CT scan - abdomen: report reviewed, image reviewed CT scan - pelvis: report reviewed, image reviewed Assessment and Plan 64 yo M with pneumoperitoneum, likely perforated gastric cancer Plan; Discussed patient with Dr. Tsang at 5 am today over the telephone. We reviewed the patient's history, his vital signs and Ct results. At that time the patient was being aggressively resuscitated and was otherwise stable. My recommendation was for the patient to be transferred to a higher level of care, a tertiary care center where surgical oncology is available. He is a high risk surgical candidate based on his history and extensive nature of his cancer cannot be treated here surgically. Patient will need urgent surgical intervention for likely perforated gastric cancer. I advised Dr. Tsang to call me back if the patient could not be transferred or if there were any issues. I did not receive any additional pages or phone calls. The patient remains in the ER this am. Per ER he has been accepted for transfer to [place] however a call was placed to Dr. Ceron this am requesting in person surgical consultation by another ER physician. I saw the patient around 8 am. Recommendations remain the same. The patient should be transferred EMERGENTLY to [place] for surgical intervention. He requires a higher level of care.
[2019-05-30 10:07] VITALS: BP 110/59
--- NOTE | 2019-05-30 10:26 | Event Note ---
Date: 05/30/19 Late entry - message received at 7:39 AM I was called by Dr. Tsang on a patient that he had already spoken about with my partner, Dr. Dey. He reported that she recommended transfer to a tertiary center for this patient, who is known to us from a prior admission, with advanced gastric cancer and a GI bleed. From his report, it appeared as though his colleague, Dr. Cole, felt this was EMTALA violation and decided to call us back (more than 3 hours later). I explained to him that we are not capable of taking care of this patient due to lack of appropriate specialized surgical care. I agree with the transfer. We should not be delaying this transfer. Dr. Tsang said that transfer process was already under way. I asked Dr. Dey to see the patient and leave a note on the chart to expedite this transfer.
== END 2019-05-30 10:45 | disposition other institution (70) ==
LOC: ED 02:44
DX: K65.8 Other peritonitis (principal); K92.1 Melena; I11.0 Hypertensive heart disease with heart failure; I50.9 Heart failure, unspecified; E11.9 Type 2 diabetes mellitus without complications; M19.90 Unspecified osteoarthritis, unspecified site; J44.9 Chronic obstructive pulmonary disease, unspecified; F17.200 Nicotine dependence, unspecified, uncomplicated; Z95.5 Presence of coronary angioplasty implant and graft; Z79.899 Other long term (current) drug therapy
CPT/HCPCS: 36415; 36430; 74176; 80053; 82550; 83690; 84484; 85027; 86850; 86900; 86901; 86920; 93005; 93010; 96365; 96366; 96375; 99291; C9113; J1170; J2405; J3010; J7030; J7040; P9016; 96361; J2354

== ENCOUNTER 2019-07-21 19:24 | Inpatient (IN) | payer MEDICARE ==
--- NOTE | 2019-07-21 20:40 | Event Note ---
ED Screening Note Date of service: 07/21/19 Time: 20:32 ED Screening Note: 64 y/o male comes in for pain medication refill. Patient reports that he had surgery 5 weeks ago at [place] on his stomach. History of 7 stent placement. This initial assessment/diagnostic orders/clinical plan/treatment(s) is/are subject to change based on patients health status, clinical progression and re- assessment by fellow clinical providers in the ED. Further treatment and workup at subsequent clinical providers discretion. Patient/guardian urged not to elope from the ED as their condition may be serious if not clinically assessed and managed. Initial orders include:
[2019-07-21 21:11] LABS: Bilirubin,Urine NEG (Negative); Blood,Urine NEG (Negative); Color,Urine Yellow (Yellow); Mucus,Urine FEW /HPF; Protein,Urine <15 mg/dL mg/dL (Negative); Urobilinogen,Urine < 2.0 mg/dL (<2.0)
[2019-07-21 21:19] LABS: Alanine Aminotransferase 13 units/L (7-56); Albumin 3.8 g/dL (3.9-5); BUN/Creatinine Ratio 20; Blood Urea Nitrogen 14 mg/dL (9-20); Calcium 9.2 mg/dL (8.4-10.2); Hemolysis Index 12
[2019-07-21] MEDS ORDERED: MORPHINE 2 MG/1 ML INJ IV ONE ×2 (21:19→22:42)
--- NOTE | 2019-07-21 21:20 | Emergency Department Report ---
ED Chest Pain HPI - General Chief Complaint: Chest Pain Stated Complaint: ABDOMINAL PAIN Time Seen by Provider: 07/21/19 20:32 Source: patient, EMS Mode of arrival: Ambulatory Limitations: No Limitations - History of Present Illness Initial Comments: She is a 64-year-old male that presents emergency room with complaints of chest pains 3 days. Patient states his chest pain is substernal and is intermittent. Patient states his chest pain is a 10 out of 10. Patient states is better with rest and worse with exertion. Patient states she has a significant cardiac history. Patient states she's also had nausea and vomiting. Patient denies shortness of breath. Patient denies anxiety. And also complains of abdominal pain 1 week. Patient states that his abdominal pain is a 6 out of 10 is constant. Patient states it pain is worsening. Patie nt states nothing is helping his abdominal pain. Patient states had multiple bouts of nausea and vomiting. Patient states not of the lifting down. Patient states he had a recent surgery for stomach cancer. Patient states his entire abdomen is hurting. Patient states the pain is better with rest and worse with movement and vomiting. Patient denies blood in his stool and blood in his vomitus. MD Complaint: chest pain -: Sudden Onset: during rest Pain Location: substernal Pain Radiation: none Severity: severe Severity scale (0 -10): 10 Quality: heaviness, sharp Consistency: intermittent Improves With: rest Worsens With: exertion, movement re: nausea, vomting. denies: diaphoresis, dyspnea, sense of impending doom Other Symptoms: denies: cough, fever, syncope, rash, acid taste in mouth, leg swelling, palpitations, burping Treatments Prior to Arrival: none Aspirin use within the Past 7 Days: (1) Yes - Related Data On Oral Contraceptives: No Previous Rx's Medication Instructions Recorded Last Taken Type Carvedilol [Coreg] 3.125 mg PO BID #60 tablet 01/29/17 09/28/17 Rx Doxepin [SINEquan] 100 mg PO QHS capsule 01/29/17 09/28/17 Rx Folic Acid [Folvite] 1 mg PO QDAY #30 tablet 01/29/17 Unknown Rx Hypromellose [Isopto Tears 0.5%] 2 drops OU Q4H PRN #1 bottle 01/29/17 09/28/17 Rx Lisinopril [Zestril TAB] 2.5 mg PO QDAY #15 tablet 01/29/17 09/28/17 Rx ALPRAZolam [Xanax TAB] 1 mg PO QHS PRN #30 tablet 10/01/17 Unknown Rx Insulin Aspart Prot/Aspart(Nf) 15 units SQ BID #2 vial 10/01/17 Unknown Rx [NovoLOG Mix 70/30 VIAL] Multivitamins Liq [Multiple 5 ml PO QDAY #150 oral.liqd 10/01/17 Unknown Rx Vitamin Liq (Theragran)] Sevelamer Carbonate [Renvela] 1,600 mg PO TIDWM #90 tablet 10/01/17 Unknown Rx Simvastatin (Nf) [Zocor TAB] 20 mg PO QHS #30 tablet 10/01/17 Unknown Rx Thiamine [Vitamin B-1] 100 mg PO QDAY #30 tablet 10/01/17 Unknown Rx ISOSORBIDE MONOnitrate [Imdur ER] 30 mg PO QDAY tablet 01/07/18 Unknown Rx Insulin NPH/Regular [NovoLIN 70/30] 15 unit SUB-Q BIDDIAB units 01/07/18 Unkno wn Rx Pantoprazole [Protonix] 40 mg PO BID #60 tablet 04/15/19 Unknown Rx oxyCODONE /ACETAMINOPHEN [Percocet 1 tab PO Q4HR PRN #20 tab 04/15/19 Unknown Rx 5/325] Allergies Allergy/AdvReac Type Severity Reaction Status Date / Time heparin Allergy Severe THROMBOCYTO Verified 09/27/17 11:14 PENIA Heart Score - HEART Score History: Moderately suspicious EKG: Non-specific Age: > 65 Risk factors: > 3 risk factors or hx of atherosclerotic disease Troponin: < normal limit HEART Score: 6 ED Review of Systems ROS: Stated complaint: ABDOMINAL PAIN Other details as noted in HPI Constitutional: denies: chills, fever Eyes: denies: eye pain, eye discharge, vision change ENT: denies: ear pain, throat pain Respiratory: denies: cough, shortness of breath, wheezing Cardiovascular: chest pain. denies: palpitations Endocrine: no symptoms reported Gastrointestinal: abdominal pain, nausea, vomiting. denies: diarrhea Genitourinary: denies: urgency, dysuria Musculoskeletal: denies: back pain, joint swelling, arthralgia Skin: denies: rash, lesions Neurological: denies: headache, weakness, paresthesias Psychiatric: denies: anxiety, depression Hematological/Lymphatic: denies: easy bleeding, easy bruising ED Past Medical Hx - Past Medical History Previous Medical History?: Yes Hx Hypertension: Yes Hx Heart Attack/AMI: Yes Hx Congestive Heart Failure: Yes Hx Diabetes: Yes (5 Yrs) Hx GERD: Yes Hx Liver Disease: No Hx Renal Disease: No Hx of Cancer: Yes (stomach) Hx Arthritis: Yes Hx Asthma: No Hx COPD: Yes Hx HIV: No Additional medical history: hep c. HIT. stomach ca - Surgical History Past Surgical History?: Yes Hx Coronary Stent: Yes (7 stents) Hx Open Heart Surgery: No Hx Cholecystectomy: No Hx Appendectomy: No Hx Breast Surgery: No Additional Surgical History: abd surgery for stomach ca - Family History Family history: no significant - Social History Smoking Status: Current Every Day Smoker Substance Use Type: None - Medications Home Medications: Home Medications Medication Instructions Recorded Confirmed Last Taken Type Carvedilol [Coreg] 3.125 mg PO BID #60 tablet 01/29/17 07/22/19 09/28/17 Rx Doxepin [SINEquan] 100 mg PO QHS capsule 01/29/17 07/22/19 09/28/17 Rx Folic Acid [Folvite] 1 mg PO QDAY #30 tablet 01/29/17 07/22/19 Unknown Rx Hypromellose [Isopto Tears 0.5%] 2 drops OU Q4H PRN #1 bottle 01/29/17 07/22/19 09/28/17 Rx Lisinopril [Zestril TAB] 2.5 mg PO QDAY #15 tablet 01/29/17 07/22/19 09/28/17 Rx ALPRAZolam [Xanax TAB] 1 mg PO QHS PRN #30 tablet 10/01/17 07/22/19 Unknown Rx Insulin Aspart Prot/Aspart(Nf) 15 units SQ BID #2 vial 10/01/17 07/22/19 Unknown Rx [NovoLOG Mix 70/30 VIAL] Multivitamins Liq [Multiple 5 ml PO QDAY #150 oral.liqd 10/01/17 07/22/19 Unknown Rx Vitamin Liq (Theragran)] Sevelamer Carbonate [Renvela] 1,600 mg PO TIDWM #90 tablet 10/01/17 07/22/19 Unknown Rx Simvastatin (Nf) [Zocor TAB] 20 mg PO QHS #30 tablet 10/01/17 07/22/19 Unknown Rx Thiamine [Vitamin B-1] 100 mg PO QDAY #30 tablet 10/01/17 07/22/19 Unknown Rx ISOSORBIDE MONOnitrate [Imdur ER] 30 mg PO QDAY tablet 01/07/18 07/22/19 Unknown Rx Insulin NPH/Regular [NovoLIN 70/30] 15 unit SUB-Q BIDDIAB units 01/07/18 07/22/19 Unknown Rx Pantoprazole [Protonix] 40 mg PO BID #60 tablet 04/15/19 07/22/19 Unknown Rx oxyCODONE /ACETAMINOPHEN [Percocet 1 tab PO Q4HR PRN #20 tab 04/15/19 07/22/19 Unknown Rx 5/325] ED Physical Exam - General Limitations: No Limitations General appearance: alert, in no apparent distress - Head Head exam: Present: atraumatic, normocephalic - Eye Eye exam: Present: normal appearance - ENT ENT exam: Present: mucous membranes moist - Neck Neck exam: Present: normal inspection - Respiratory Respiratory exam: Present: normal lung sounds bilaterally. Absent: respiratory distress, wheezes, rales - Cardiovascular Cardiovascular Exam: Present: regular rate, normal rhythm. Absent: systolic murmur, diastolic murmur, rubs, gallop - GI/Abdominal GI/Abdominal exam: Present: soft, tenderness (generalized abdominal tenderness.), normal bowel sounds, other (large midline scar). Absent: distended - Rectal Rectal exam: Present: deferred - Extremities Exam Extremities exam: Present: normal inspection - Back Exam Back exam: Present: normal inspection - Neurological Exam Neurological exam: Present: alert, oriented X3 - Psychiatric Psychiatric exam: Present: normal affect, normal mood - Skin Skin exam: Present: warm, dry, intact, normal color. Absent: rash ED Course Vital Signs 07/21/19 07/21/19 07/21/19 19:44 22:10 22:32 Temperature 97.8 F Pulse Rate 102 H 86 Respiratory 20 18 18 Rate Blood Pressure 142/73 Blood Pressure [Left] O2 Sat by Pulse 99 Oximetry 07/21/19 07/21/19 07/21/19 23:10 23:22 23:33 Temperature Pulse Rate 90 86 Respiratory 18 17 Rate Blood Pressure Blood Pressure [Left] O2 Sat by Pulse Oximetry 07/22/19 07/22/19 07/22/19 00:00 00:31 01:01 Temperature Pulse Rate 106 H 87 Respiratory 12 19 Rate Blood Pressure Blood Pressure [Left] O2 Sat by Pulse Oximetry 07/22/19 07/22/19 07/22/19 01:31 02:00 02:01 Temperature 98.8 F Pulse Rate 102 H Respiratory 13 18 22 Rate Blood Pressure Blood Pressure 146/84 [Left] O2 Sat by Pulse 100 Oximetry 07/22/19 07/22/19 07/22/19 02:11 02:20 02:30 Temperature Pulse Rate Respiratory 18 12 12 Rate Blood Pressure Blood Pressure [Left] O2 Sat by Pulse Oximetry 07/22/19 07/22/19 07/22/19 02:40 02:45 02:50 Temperature Pulse Rate Respiratory 21 18 20 Rate Blood Pressure Blood Pressure [Left] O2 Sat by Pulse Oximetry 07/22/19 03:00 Temperature Pulse Rate Respiratory 18 Rate Blood Pressure Blood Pressure [Left] O2 Sat by Pulse Oximetry - Reevaluation(s) Reevaluation #1: Still combative chest pain and abdominal pain. Patient another dose of morphine. Patient's CT is pending. 07/21/19 21:43 Reevaluation #2: I discussed all results with patient. I discussed plan of care with patient. Patient agrees with plan of care and admission. Patient was admitted to the hospitalist service. 07/22/19 00:10 - Consultations Consultation #1: I Discussed case with Dr. Ceron, general surgery. Dr. Ceron recommends admission and GI consult and he will see the patient the morning 07/21/19 23:54 Consultation #2: GI paged 07/21/19 23:55 Consultation #3: Hospitalist consult for admission. hospitalist to admit patient. 07/21/19 23:56 LUCIAN score - Lucian Score Age > 65: (0) No Aspirin use within the Past 7 Days: (0) No 3 or more CAD Risk Factors: (1) Yes 2 or more Angina events in past 24 hrs: (1) Yes Known CAD with more than 50% Stenosis: (1) Yes Elevated Cardiac Markers: (0) No ST Deviation Greater than 0.5mm: (0) No LUCIAN Score: 3 ED Medical Decision Making - Lab Data Result diagrams: 07/21/19 20:46 07/21/19 20:46 - EKG Data -: EKG Interpreted by Me EKG shows normal: sinus rhythm, axis, intervals, QRS complexes, ST-T waves Rate: normal - Radiology Data Radiology results: report reviewed, image reviewed interpreted by me: No acute findings on chest x-ray. Right port noted CT ABDOMEN AND PELVIS WITH CONTRAST INDICATION / CLINICAL INFORMATION: MAIN: abd painOMNI 300/100ML. TECHNIQUE: Axial CT images were obtained through the abdomen and pelvis after 100 mL Omnipaque [address] scans at this location are performed using CT dose reduction for ALARA by means of automated exposure control. COMPARISON: CT abdomen pelvis 05/30/[address] abdomen pelvis 04/12/2019 FINDINGS: LOWER CHEST: Unchanged pleural calcifications. No focal pulmonary consolidation in the visualized lung bases. LIVER: Redemonstration of two low density hepatic lesions, with the degree of peripheral enhancement less prominent compared with prior CT from 04/30/2019, likely secondary to differences in contrast timing. BILIARY SYSTEM: Cholelithiasis within a round, distended gallbladder, but no significant wall thickening or pericholecystic inflammatory change. There is a 3 to 4 mm calcification within the distal common bile duct near the ampulla suggestive of choledocholithiasis. There is no significant intra or extrahepatic biliary dilation. PANCREAS: No significant abnormality. SPLEEN: Multiple calcified granulomas. ADRENALS: No significant abnormality. KIDNEYS and URETERS: Small cyst in the left upper pole. STOMACH / BOWEL: A focal outpouching from the anterior aspect of the distal gastric body is again seen likely representing gastric ulcer. There has been interval improvement of previously seen associated wall thickening, and interval resolution of previously seen pneumo peritoneum. Moderate colonic stool burden. PERITONEUM: No free fluid. No free air. No fluid collection. LYMPH NODES: No significant adenopathy. VASCULAR STRUCTURES: Extensive aortic atherosclerosis with calcified and noncalcified plaque. URINARY BLADDER: No significant abnormality. REPRODUCTIVE ORGANS: No significant abnormality. ADDITIONAL FINDINGS: None. SKELETAL SYSTEM: No significant abnormality. IMPRESSION: 1. Interval development of a 3 to 4 mm calcification in the region of the distal common bile duct near the ampulla compatible with choledocholithiasis. No significant intra or extrahepatic biliary dilation. 2. Cholelithiasis within a round, distended gallbladder, but no significant pericholecystic inflammatory change. 3. Gastric ulcer again seen, with interval improvement of previously seen associated inflammatory change and resolution of previously seen pneumoperitoneum. 4. Unchanged indeterminate hepatic lesions. Critical Care Time: Yes Critical care attestation.: If time is entered above; I have spent that time in minutes in the direct care of this critically ill patient, excluding procedure time. Critical Care Time: 35 minutes ED Disposition Clinical Impression: Intermittent abdominal pain, Peptic ulcer disease, Choledocholithiasis Chest pain Qualifiers: Chest pain type: unspecified Qualified Code(s): R07.9 - Chest pain, unspecified CAD (coronary artery disease) Qualifiers: Coronary Disease-Associated Artery/Lesion type: [place] artery [place] vs. transplanted heart: [place] heart Associated angina: angina presence unspecified Qualified Code(s): I25.10 - Atherosclerotic heart disease of [place] coronary artery without angina pectoris Abdominal pain Qualifiers: Abdominal location: generalized Qualified Code(s): R10.84 - Generalized abd ominal pain Nausea & vomiting Qualifiers: Vomiting type: unspecified Vomiting Intractability: intractable Qualified Code(s): R11.2 - Nausea with vomiting, unspecified Cholelithiasis Qualifiers: Cholelithiasis location: gallbladder and bile duct Cholecystitis presence: without cholecystitis Biliary obstruction: without biliary obstruction Qualified Code(s): K80.70 - Calculus of gallbladder and bile duct without cholecystitis without obstruction Disposition: OP ADMIT IP TO THIS HOSP Is pt being admited?: Yes Does the pt Need Aspirin: No Condition: Critical Time of Disposition: 00:03
[2019-07-21 21:25] LABS: Basophils # (Auto) 0.1 K/mm3 (0.0-0.1); Basophils % (Auto) 1.2 % (0.0-1.8); Eosinophils # (Auto) 0.6 K/mm3 (0.0-0.4); Eosinophils % (Auto) 6.9 % (0.0-4.3); Hematocrit 36.7 % (35.5-45.6); Hemoglobin 12.3 gm/dl (11.8-15.2); Lymphocytes # (Auto) 1.7 K/mm3 (1.2-5.4); Lymphocytes % (Auto) 21.1 % (13.4-35.0); Mean Corpuscular HGB Conc 34 % (32-34); Mean Corpuscular Volume 81 fl (84-94); Monocytes # (Auto) 0.8 K/mm3 (0.0-0.8); Monocytes % (Auto) 10.3 % (0.0-7.3); Platelet Count 189 K/mm3 (140-440); Red Blood Count 4.54 M/mm3 (3.65-5.03); Red Cell Distribution Width 17.2 % (13.2-15.2)
--- NOTE | 2019-07-21 21:46 | XRay Report ---
CHEST 1 VIEW INDICATION / CLINICAL INFORMATION: Chest pain COMPARISON: 04/11/2019 FINDINGS: SUPPORT DEVICES: Right-sided port terminates at the SVC/right atrial junction. HEART / MEDIASTINUM: No significant abnormality. LUNGS / PLEURA: No significant pulmonary or pleural abnormality. No pneumothorax. ADDITIONAL FINDINGS: Prominent bilateral pleural plaques, calcified. IMPRESSION: 1. No acute findings. Signer Name: Uday Waters MD Signed: 07/21/2019 9:41 PM Workstation Name: [id number]
[2019-07-21 21:55] LABS: Creatine Kinase MB 1.3 ng/mL (0.0-4.0)
--- NOTE | 2019-07-21 23:41 | Cat Scan Report ---
CT ABDOMEN AND PELVIS WITH CONTRAST INDICATION / CLINICAL INFORMATION: MAIN: abd painOMNI 300/100ML. TECHNIQUE: Axial CT images were obtained through the abdomen and pelvis after 100 mL Omnipaque [address] scans at this location are performed using CT dose reduction for ALARA by means of automated exposure control. COMPARISON: CT abdomen pelvis 05/30/[address] abdomen pelvis 04/12/2019 FINDINGS: LOWER CHEST: Unchanged pleural calcifications. No focal pulmonary consolidation in the visualized paul g bases. LIVER: Redemonstration of two low density hepatic lesions, with the degree of peripheral enhancement less prominent compared with prior CT from 04/30/2019, likely secondary to differences in contrast radha ing. BILIARY SYSTEM: Cholelithiasis within a round, distended gallbladder, but no significant wall thicken ing or pericholecystic inflammatory change. There is a 3 to 4 mm calcification within the distal comm on bile duct near the ampulla suggestive of choledocholithiasis. There is no significant intra or ext rahepatic biliary dilation. PANCREAS: No significant abnormality. SPLEEN: Multiple calcified granulomas. ADRENALS: No significant abnormality. KIDNEYS and URETERS: Small cyst in the left upper pole. STOMACH / BOWEL: A focal outpouching from the anterior aspect of the distal gastric body is again see n likely representing gastric ulcer. There has been interval improvement of previously seen associate d wall thickening, and interval resolution of previously seen pneumoperitoneum. Moderate colonic stoo l burden. PERITONEUM: No free fluid. No free air. No fluid collection. LYMPH NODES: No significant adenopathy. VASCULAR STRUCTURES: Extensive aortic atherosclerosis with calcified and noncalcified plaque. URINARY BLADDER: No significant abnormality. REPRODUCTIVE ORGANS: No significant abnormality. ADDITIONAL FINDINGS: None. SKELETAL SYSTEM: No significant abnormality. IMPRESSION: 1. Interval development of a 3 to 4 mm calcification in the region of the distal common bile duct mary r the ampulla compatible with choledocholithiasis. No significant intra or extrahepatic biliary dilat ion. 2. Cholelithiasis within a round, distended gallbladder, but no significant pericholecystic inflammat ory change. 3. Gastric ulcer again seen, with interval improvement of previously seen associated inflammatory aron nge and resolution of previously seen pneumoperitoneum. 4. Unchanged indeterminate hepatic lesions. Signer Name: Joann Clinton MD Signed: 07/21/2019 11:37 PM Workstation Name: [id number]
[2019-07-21] MEDS ORDERED: SODIUM CHLORIDE 0.9% 1000 ML 1,000 ML IV ONE (23:56)
[2019-07-22] MEDS ORDERED: PANTOPRAZOLE 40 MG INJ IV ONE ×2 (00:07→03:15)
[2019-07-22] MEDS ORDERED: DEXTROSE 50% IN WATER (25GM) 50 ML SYRINGE IV PRN (00:07)
[2019-07-22] MEDS ORDERED: ONDANSETRON 4 MG/2 ML INJ IV PRN (00:09)
[2019-07-22] MEDS ORDERED: ACETAMINOPHEN 325 MG TAB PO PRN (00:09)
--- NOTE | 2019-07-22 00:12 | History and Physical Report ---
History of Present Illness Chief complaint: My stomach hurts History of present illness: 64-year-old man with history of gastric cancer, liver lesions, history of CAD who presents to the hospital with abdominal pain and intractable nausea and vomiting he has been previously admitted to the hospital for GI bleed, patient had a gastric mass which was biopsied on previous visit, however it was insufficient tissue. The patient was [facility] to [facility] for further work-up and treatment of his gastric mass. He states that he went to the [facility], he was deemed not to be a surgical candidate. A Chemo-Port was placed and he received 1 round of chemo. He then went on to have severe abdominal pain for which he presented to [facility] and was found to have a perforated gastric ulcer. He had ex lap and had a gastric ulcer fixed. He was discharged about 5 weeks ago and given medications. He ran out of meds about a week and a half ago including PPI 1 every other meds that he had. He states that he did not have his car fixed to get him to the [facility] to get refills and get more medications. He has been going through a lot that he has been frustrated. He had no way to get about. He also states that the transportation with the [facility] has to be scheduled 2 weeks in advance, he did not have the time to schedule it. For about a week and a half now he states that he has been having severe abdominal pain which has been progressive and getting worse. He now has intractable nausea vomiting unable to keep down anything including water. The pain he describes to his epigastrium on the left upper quadrant. He presented to the hospital this time with abdominal pain, intractable nausea and vomiting. He is also complaining of severe constant chest pain. Past Medical History: cancer (stomach), cad sp stents, hypertension, anxiety, diabetes Surgical history; Chemo-Port placement, ex lap and repair of perforated gastric ulcer at [facility] 5 weeks ago Social history: lives with family, full code social, lives with family, ongoing tobacco abuse, states that he is trying to quit Medications and Allergies Allergies Allergy/AdvReac Type Severity Reaction Status Date / Time heparin Allergy Severe THROMBOCYTO Verified 09/27/17 11:14 [facility] Home Medications Medication Instructions Recorded Confirmed Last Taken Type Carvedilol [Coreg] 3.125 mg PO BID #60 tablet 01/29/17 07/22/19 09/28/17 Rx Doxepin [SINEquan] 100 mg PO QHS capsule 01/29/17 07/22/19 09/28/17 Rx Folic Acid [Folvite] 1 mg PO QDAY #30 tablet 01/29/17 07/22/19 Unknown Rx Hypromellose [Isopto Tears 0.5%] 2 drops OU Q4H PRN #1 bottle 01/29/17 07/22/19 09/28/17 Rx Lisinopril [Zestril TAB] 2.5 mg PO QDAY #15 tablet 01/29/17 07/22/19 09/28/17 Rx ALPRAZolam [Xanax TAB] 1 mg PO QHS PRN #30 tablet 10/01/17 07/22/19 Unknown Rx Insulin Aspart Prot/Aspart(Nf) 15 units SQ BID #2 vial 10/01/17 07/22/19 Unknown Rx [NovoLOG Mix 70/30 VIAL] Multivitamins Liq [Multiple 5 ml PO QDAY #150 oral.liqd 10/01/17 07/22/19 Unknown Rx Vitamin Liq (Theragran)] Sevelamer Carbonate [Renvela] 1,600 mg PO TIDWM #90 tablet 10/01/17 07/22/19 Unknown Rx Simvastatin (Nf) [Zocor TAB] 20 mg PO QHS #30 tablet 10/01/17 07/22/19 Unknown Rx Thiamine [Vitamin B-1] 100 mg PO QDAY #30 tablet 10/01/17 07/22/19 Unknown Rx ISOSORBIDE MONOnitrate [Imdur ER] 30 mg PO QDAY tablet 01/07/18 07/22/19 Unknown Rx Insulin NPH/Regular [NovoLIN 70/30] 15 unit SUB-Q BIDDIAB units 01/07/18 07/22/19 Unknown Rx Pantoprazole [Protonix] 40 mg PO BID #60 tablet 04/15/19 07/22/19 Unknown Rx oxyCODONE /ACETAMINOPHEN [Percocet 1 tab PO Q4HR PRN #20 tab 04/15/19 07/22/19 Unknown Rx 5/325] Active Meds: Active Medications Acetaminophen (Tylenol) 650 mg PO Q4H PRN PRN Reason: Pain MILD(1-3)/Fever >100.5/VALENTINO Dextrose (D50w (25gm) Syringe) 50 ml IV PRN PRN PRN Reason: Hypoglycemia Hydromorphone HCl (Dilaudid) 0.5 mg IV Q3H PRN PRN Reason: Pain , Severe (7-10) Sodium Chloride (Nacl 0.9% 1000 Ml) 1,000 mls @ 999 mls/hr IV BOLUS ONE Stop: 07/22/19 00:56 Sodium Chloride (Nacl 0.9% 1000 Ml) 1,000 mls @ 100 mls/hr IV DIRECT RENITA Insulin Human Lispro (Humalog) 0 unit SUB-Q Q6HR RENITA; Protocol Ondansetron HCl (Zofran) 4 mg IV Q4H PRN PRN Reason: Nausea And Vomiting Pantoprazole Sodium (Protonix) 40 mg IV BID RENITA Sodium Chloride (Sodium Chloride Flush Syringe 10 Ml) 10 ml IV BID RENITA Sodium Chloride (Sodium Chloride Flush Syringe 10 Ml) 10 ml IV PRN PRN PRN Reason: LINE FLUSH Review of Systems All systems: negative Constitutional: weight loss, anorexia Ears, nose, mouth and throat: no ear pain Cardiovascular: chest pain Respiratory: no cough Gastrointestinal: abdominal pain, nausea, vomiting, no melena, no hematochezia Genitourinary Male: no dysuria Rectal: no pain Musculoskeletal: no neck stiffness Integumentary: no rash Neurological: no head injury Psychiatric: no anxiety Endocrine: no cold intolerance Hematologic/Lymphatic: no easy bruising Allergic/Immunologic: no urticaria Exam - Constitutional Vitals: Temp Pulse Resp BP Pulse Ox 97.8 F 102 H 18 142/73 99 07/21/19 19:44 07/21/19 19:44 07/21/19 22:10 07/21/19 19:44 07/21/19 19:44 General appearance: Present: mild distress, well-nourished - EENT Eyes: Present: PERRL ENT: hearing intact, clear oral mucosa - Neck Neck: Present: supple, normal ROM - Respiratory Respiratory effort: normal Respiratory: bilateral: CTA - Cardiovascular Heart Sounds: Present: S1 & S2. Absent: rub, click - Extremities Extremities: pulses symmetrical, No edema Peripheral Pulses: within normal limits - Abdominal General gastrointestinal: Present: soft, tender (Epigastrium), non-distended, normal bowel sounds Male genitourinary: Present: normal - Integumentary Integumentary: Present: clear, warm, dry - Musculoskeletal Musculoskeletal: gait normal, strength equal bilaterally - Psychiatric Psychiatric: appropriate mood/affect, intact judgment & insight - Neurologic Neurologic: CNII-XII intact, moves all extremities Results - Labs CBC & Chem 7: 07/21/19 20:46 07/21/19 20:46 Labs: Laboratory Last Values WBC 8.2 K/mm3 (4.5-11.0) 07/21/19 20:46 RBC 4.54 M/mm3 (3.65-5.03) 07/21/19 20:46 Hgb 12.3 gm/dl (11.8-15.2) 07/21/19 20:46 Hct 36.7 % (35.5-45.6) 07/21/19 20:46 MCV 81 fl (84-94) L 07/21/19 20:46 MCH 27 pg (28-32) L 07/21/19 20:46 MCHC 34 % (32-34) 07/21/19 20:46 RDW 17.2 % (13.2-15.2) H 07/21/19 20:46 Plt Count 189 K/mm3 (140-440) 07/21/19 20:46 Lymph % (Auto) 21.1 % (13.4-35.0) 07/21/19 20:46 [place] % (Auto) 10.3 % (0.0-7.3) H 07/21/19 20:46 Eos % (Auto) 6.9 % (0.0-4.3) H 07/21/19 20:46 Baso % (Auto) 1.2 % (0.0-1.8) 07/21/19 20:46 Lymph # 1.7 K/mm3 (1.2-5.4) 07/21/19 20:46 [place] # 0.8 K/mm3 (0.0-0.8) 07/21/19 20:46 Eos # 0.6 K/mm3 (0.0-0.4) H 07/21/19 20:46 Baso # 0.1 K/mm3 (0.0-0.1) 07/21/19 20:46 Seg Neutrophils % 60.5 % (40.0-70.0) 07/21/19 20:46 Seg Neutrophils # 4.9 K/mm3 (1.8-7.7) 07/21/19 20:46 Sodium 135 mmol/L (137-145) L 07/21/19 20:46 Potassium 4.2 mmol/L (3.6-5.0) 07/21/19 20:46 Chloride 96.8 mmol/L (98-107) L 07/21/19 20:46 Carbon Dioxide 20 mmol/L (22-30) L 07/21/19 20:46 Anion Gap 22 mmol/L 07/21/19 20:46 BUN 14 mg/dL (9-20) 07/21/19 20:46 Creatinine 0.7 mg/dL (0.8-1.5) L 07/21/19 20:46 Estimated GFR > 60 ml/min 07/21/19 20:46 BUN/Creatinine Ratio 20 % 07/21/19 20:46 Glucose 110 mg/dL (75-100) H 07/21/19 20:46 Calcium 9.2 mg/dL (8.4-10.2) 07/21/19 20:46 Total Bilirubin 0.30 mg/dL (0.1-1.2) 07/21/19 20:46 AST 30 units/L (5-40) 07/21/19 20:46 ALT 13 units/L (7-56) 07/21/19 20:46 Alkaline Phosphatase 146 units/L (35-129) H 07/21/19 20:46 Total Creatine Kinase 26 units/L (55-170) L 07/21/19 21:21 CK-MB (CK-2) 1.3 ng/mL (0.0-4.0) 07/21/19 21:21 CK-MB (CK-2) Rel Index 5.0 (0-4) H 07/21/19 21:21 Troponin T < 0.010 ng/mL (0.00-0.029) 07/21/19 21:21 Total Protein 8.2 g/dL (6.3-8.2) 07/21/19 20:46 Albumin 3.8 g/dL (3.9-5) L 07/21/19 20:46 Albumin/Globulin Ratio 0.9 % 07/21/19 20:46 Lipase 9 units/L (13-60) L 07/21/19 21:21 Urine Color Yellow (Yellow) 07/21/19 Unknown Urine Turbidity Clear (Clear) 07/21/19 Unknown Urine pH 6.0 (5.0-7.0) 07/21/19 Unknown Ur Specific [place] 1.011 (1.003-1.030) 07/21/19 Unknown Urine Protein <15 mg/dl mg/dL (Negative) 07/21/19 Unknown Urine Glucose (UA) 50 mg/dL (Negative) 07/21/19 Unknown Urine Ketones Neg mg/dL (Negative) 07/21/19 Unknown Urine Blood Neg (Negative) 07/21/19 Unknown Urine Nitrite Neg (Negative) 07/21/19 Unknown Urine Bilirubin Neg (Negative) 07/21/19 Unknown Urine Urobilinogen < 2.0 mg/dL (<2.0) 07/21/19 Unknown Ur Leukocyte Esterase Neg (Negative) 07/21/19 Unknown Urine WBC (Auto) 1.0 /HPF (0.0-6.0) 07/21/19 Unknown Urine RBC (Auto) 3.0 /HPF (0.0-6.0) 07/21/19 Unknown Urine Mucus Few /HPF 07/21/19 Unknown Assessment and Plan Assessment and plan: 64-year-old man with history of gastric cancer, liver lesions, history of CAD who presents to the hospital with abdominal pain and intractable nausea and vomiting he has been previously admitted to the hospital for GI bleed, patient had a gastric mass which was biopsied on previous visit, however it was insufficient tissue. The patient was supposed to [facility] for further work-up and treatment of his gastric mass. He presented to the hospital this time with abdominal pain, intractable nausea and vomiting. He is also complaining of severe constant chest pain. CT abdomen and pelvis shows cholelithiasis within a rale distended gallbladder. Gastric ulcer is again seen with interval improvement of previously seen associated inflammatory change and resolution of previously seen pneumoperitoneum. Intractable nausea and abdominal pain likely due to peptic ulcer disease IV PPI, GI consult. Patient has a recent perforated peptic ulcer for which he received ex lap at [facility]. Ran out of PPI a week and a half ago. Symptoms are most likely due to running out of PPI. Gastric cancer Patient has extensive disease, was seen by surgical oncology at the [facility] and deemed not a surgical candidate. Status post Chemo-Port status post 1 cycle of chemo Outpatient follow-up with oncology at the [facility] Chest pain -May be radiation of pain from his stomach to his chest, pain is atypical as he has the pain at all times aspirin, EKG no acute findings, chest x-ray neg, troponins negative so far, serial CE, keep NPO for now cardiology consult to determine modality for coronary risk stratification Tobacco abuse/dependence Smoking cessation counseling performed for 10 minutes, nicotine patches when necessary dvt ppx-scds given hx of HIT Preventative health counseling performed for 17 minutes VTE prophylaxis?: Chemical Plan of care discussed with patient/family: Yes
[2019-07-22] MEDS ORDERED: HYDROmorphone 1 MG/1 ML INJ ONE (02:01)
[2019-07-22] MEDS ORDERED: SODIUM CHLORIDE 0.9% 1000 ML 1,000 ML ONE (02:02)
[2019-07-22] MEDS: HYDROmorphone 1 MG/1 ML INJ IV PRN ×6 (02:45→23:19)
[2019-07-22] MEDS ORDERED: LORazepam 2 MG/ML VIAL IV ONE (03:52)
[2019-07-22] MEDS: INSULIN LISPRO 100 UNIT/ML SUB-Q SCH ×3 (06:27→17:39)
--- NOTE | 2019-07-22 07:31 | Progress Note ---
Assessment and Plan Assessment and plan: Patient is a 64-year-old man with history of gastric cancer, liver lesions, CAD, perforated PUD s/p repair 5 weeks ago at [facility], GERD and Tobacco dependency who presented to [facility] ED with abdominal pain, chest pains, intractable nausea and vomiting. * CT abd/pelvis with contrast IMPRESSION: 1. Interval development of a 3 to 4 mm calcification in the region of the distal common bile duct near the ampulla compatible with choledocholithiasis. No significant intra or extrahepatic biliary dilation. 2. Cholelithiasis within a round, distended gallbladder, but no significant mary-cholecystic inflammatory change. 3. Gastric ulcer again seen, with interval improvement of previously seen associated inflammatory change and resolution of previously seen pneumoperitoneum. 4. Unchanged ind eterminate hepatic lesions. Intractable nausea and abdominal pain likely due to peptic ulcer disease Choledocholithiasis: General Surgery and GI consulted. 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 Follow-up on current diagnosis of Ap/n/v. Overnight uneventful. Patient denies any chest pain, shortness breath, or severe headaches. Imaging, nursing note, chart, labs and old chart reviewed. Discussed with patient. Hospitalist Physical - Physical exam Narrative exam: GEN: thin frail NAD, Awake, Alert, Orientated HEENT: NCAT, EOMI, PERRL, OP Clear NECK: supple, no adenopathy, no thyromegaly, no JVD CVS/HEART: RRR, normal S1S2, pulses present bilaterally CHEST/LUNGS: CTA B, Symmetrical chest expansion, good air entry bilaterally GI/Abdomen: diffuse tenderness good bowel sounds, no guarding or rebound /Bladder: no suprapubic tenderness, no CVA or paraspinal tenderness EXT/Skin: no c/c/e, no obvious rash MSK: FROM x 4 Neuro: CN 2-12 grossly intact, no new focal deficits Psych: calm - Constitutional Vitals: Temp Pulse Resp BP Pulse Ox 99.5 F 98 H 16 134/85 100 07/22/19 03:13 07/22/19 03:13 07/22/19 05:57 07/22/19 03:13 07/22/19 03:13 General appearance: Present: well-nourished. Absent: mild distress Results - Labs CBC & Chem 7: 07/21/19 20:46 07/21/19 20:46 Labs: Laboratory Last Values WBC 8.2 K/mm3 (4.5-11.0) 07/21/19 20:46 RBC 4.54 M/mm3 (3.65-5.03) 07/21/19 20:46 Hgb 12.3 gm/dl (11.8-15.2) 07/21/19 20:46 Hct 36.7 % (35.5-45.6) 07/21/19 20:46 MCV 81 fl (84-94) L 07/21/19 20:46 MCH 27 pg (28-32) L 07/21/19 20:46 MCHC 34 % (32-34) 07/21/19 20:46 RDW 17.2 % (13.2-15.2) H 07/21/19 20:46 Plt Count 189 K/mm3 (140-440) 07/21/19 20:46 Lymph % (Auto) 21.1 % (13.4-35.0) 07/21/19 20:46 [place] % (Auto) 10.3 % (0.0-7.3) H 07/21/19 20:46 Eos % (Auto) 6.9 % (0.0-4.3) H 07/21/19 20:46 Baso % (Auto) 1.2 % (0.0-1.8) 07/21/19 20:46 Lymph # 1.7 K/mm3 (1.2-5.4) 07/21/19 20:46 [place] # 0.8 K/mm3 (0.0-0.8) 07/21/19 20:46 Eos # 0.6 K/mm3 (0.0-0.4) H 07/21/19 20:46 Baso # 0.1 K/mm3 (0.0-0.1) 07/21/19 20:46 Seg Neutrophils % 60.5 % (40.0-70.0) 07/21/19 20:46 Seg Neutrophils # 4.9 K/mm3 (1.8-7.7) 07/21/19 20:46 Sodium 135 mmol/L (137-145) L 07/21/19 20:46 Potassium 4.2 mmol/L (3.6-5.0) 07/21/19 20:46 Chloride 96.8 mmol/L (98-107) L 07/21/19 20:46 Carbon Dioxide 20 mmol/L (22-30) L 07/21/19 20:46 Anion Gap 22 mmol/L 07/21/19 20:46 BUN 14 mg/dL (9-20) 07/21/19 20:46 Creatinine 0.7 mg/dL (0.8-1.5) L 07/21/19 20:46 Estimated GFR > 60 ml/min 07/21/19 20:46 BUN/Creatinine Ratio 20 % 07/21/19 20:46 Glucose 110 mg/dL (75-100) H 07/21/19 20:46 POC Glucose 130 (70-105) H 07/22/19 06:31 Hemoglobin A1c 5.8 % (4-6) 07/22/19 03:44 Calcium 9.2 mg/dL (8.4-10.2) 07/21/19 20:46 Total Bilirubin 0.30 mg/dL (0.1-1.2) 07/21/19 20:46 AST 30 units/L (5-40) 07/21/19 20:46 ALT 13 units/L (7-56) 07/21/19 20:46 Alkaline Phosphatase 146 units/L (35-129) H 07/21/19 20:46 Total Creatine Kinase 26 units/L (55-170) L 07/21/19 21:21 CK-MB (CK-2) 1.3 ng/mL (0.0-4.0) 07/21/19 21:21 CK-MB (CK-2) Rel Index 5.0 (0-4) H 07/21/19 21:21 Troponin T < 0.010 ng/mL (0.00-0.029) 07/21/19 21:21 Total Protein 8.2 g/dL (6.3-8.2) 07/21/19 20:46 Albumin 3.8 g/dL (3.9-5) L 07/21/19 20:46 Albumin/Globulin Ratio 0.9 % 07/21/19 20:46 Lipase 9 units/L (13-60) L 07/21/19 21:21 Urine Color Yellow (Yellow) 07/21/19 Unknown Urine Turbidity Clear (Clear) 07/21/19 Unknown Urine pH 6.0 (5.0-7.0) 07/21/19 Unknown Ur Specific [place] 1.011 (1.003-1.030) 07/21/19 Unknown Urine Protein <15 mg/dl mg/dL (Negative) 07/21/19 Unknown Urine Glucose (UA) 50 mg/dL (Negative) 07/21/19 Unknown Urine Ketones Neg mg/dL (Negative) 07/21/19 Unknown Urine Blood Neg (Negative) 07/21/19 Unknown Urine Nitrite Neg (Negative) 07/21/19 Unknown Urine Bilirubin Neg (Negative) 07/21/19 Unknown Urine Urobilinogen < 2.0 mg/dL (<2.0) 07/21/19 Unknown Ur Leukocyte Esterase Neg (Negative) 07/21/19 Unknown Urine WBC (Auto) 1.0 /HPF (0.0-6.0) 07/21/19 Unknown Urine RBC (Auto) 3.0 /HPF (0.0-6.0) 07/21/19 Unknown Urine Mucus Few /HPF 07/21/19 Unknown Active Medications - Current Medications Current Medications: Generic Name Dose Route Start Last Admin Trade Name Ezioq PRN Reason Stop Dose Admin Acetaminophen 650 mg 07/22/19 00:09 Tylenol PO Q4H PRN Pain MILD(1-3)/Fever >100.5/VALENTINO Dextrose 50 ml 07/22/19 00:07 D50w (25gm) Syringe IV PRN PRN Hypoglycemia Hydromorphone HCl 0.5 mg 07/22/19 00:09 07/22/19 05:27 Dilaudid IV 0.5 mg Q3H PRN Administration Pain , Severe (7-10) Sodium Chloride 1,000 mls @ 100 mls/hr 07/22/19 01:00 Nacl 0.9% 1000 Ml IV DIRECT RENITA Insulin Human Lispro 0 unit 07/22/19 06:00 07/22/19 06:27 Humalog SUB-Q Not Given Q6HR RENITA Protocol Nicotine 14 mg 07/22/19 10:00 Habitrol TD QDAY [facility] Ondansetron HCl 4 mg 07/22/19 00:09 Zofran IV Q4H PRN Nausea And Vomiting Pantoprazole Sodium 40 mg 07/22/19 10:00 Protonix IV BID RENITA Sodium Chloride 10 ml 07/22/19 10:00 Sodium Chloride Flush Syringe 10 Ml IV BID RENITA Sodium Chloride 10 ml 07/22/19 00:09 Sodium Chloride Flush Syringe 10 Ml IV PRN PRN LINE FLUSH
--- NOTE | 2019-07-22 08:51 | Event Note ---
Date: 07/22/19 [id number]
[2019-07-22] MEDS: SODIUM CHLORIDE 0.9% 1000 ML 1,000 ML IV SCH ×2 (09:50→19:35)
[2019-07-22] MEDS: PANTOPRAZOLE 40 MG INJ IV SCH ×2 (09:51→21:32)
[2019-07-22] MEDS: NICOTINE 14 MG/24 HR PATCH TD SCH (09:51)
--- NOTE | 2019-07-22 10:59 | Consultation ---
History of Present Illness Consult date: 07/22/19 Consult reason: chest pain History of present illness: This is a 64-year old male with a history of multi-vessel coronary artery disease and ischemic cardiomyopathy. In February 2014, a cardiac catheterization revealed patent stents in the mid LAD, diagonal branch and mid obtuse marginal. Otherwise, there was moderate non-obstructive disease in other coronary segments and was recommended for risk factor modification and medical therapy. Left vent ricular ejection fraction was 30-35%. His latest cardiac workup was done at this hospital in 2018. An echocardiogram done reports persistence ischemic cardiomyopathy with an ejection fraction at 20-25%. A stress thallium test reports no reversible ischemia. Patient also has a history of chronic diffuse abdominal pain, gastric cancer, gastric ulcer with recent exploratory laparotomy at [facility]. He presented to this hospital with complaints of severe abdominal pain, nausea, vomiting followed with chest pain. A cardiac consultation has been requested for evaluation of chest pain. Patient describes chest pain as soreness under left rib cage. Chest x-ray reports no acute findings. Cardiac enzymes measurement shows a CK of 26 and a relative index at 5.0. Troponin is normal. An ECG is si nus rhythm with non-specific T-wave abnormalities. Medications and Allergies Allergies Allergy/AdvReac Type Severity Reaction Status Date / Time heparin Allergy Severe THROMBOCYTO Verified 09/27/17 11:14 [facility] Home Medications Medication Instructions Recorded Confirmed Last Taken Type Carvedilol [Coreg] 3.125 mg PO BID #60 tablet 01/29/17 07/22/19 09/28/17 Rx Doxepin [SINEquan] 100 mg PO QHS capsule 01/29/17 07/22/19 09/28/17 Rx Folic Acid [Folvite] 1 mg PO QDAY #30 tablet 01/29/17 07/22/19 Unknown Rx Hypromellose [Isopto Tears 0.5%] 2 drops OU Q4H PRN #1 bottle 01/29/17 07/22/19 09/28/17 Rx Lisinopril [Zestril TAB] 2.5 mg PO QDAY #15 tablet 01/29/17 07/22/19 09/28/17 Rx ALPRAZolam [Xanax TAB] 1 mg PO QHS PRN #30 tablet 10/01/17 07/22/19 Unknown Rx Insulin Aspart Prot/Aspart(Nf) 15 units SQ BID #2 vial 10/01/17 07/22/19 Unknown Rx [NovoLOG Mix 70/30 VIAL] Multivitamins Liq [Multiple 5 ml PO QDAY #150 oral.liqd 10/01/17 07/22/19 Unknown Rx Vitamin Liq (Theragran)] Sevelamer Carbonate [Renvela] 1,600 mg PO TIDWM #90 tablet 10/01/17 07/22/19 Unknown Rx Simvastatin (Nf) [Zocor TAB] 20 mg PO QHS #30 tablet 10/01/17 07/22/19 Unknown Rx Thiamine [Vitamin B-1] 100 mg PO QDAY #30 tablet 10/01/17 07/22/19 Unknown Rx ISOSORBIDE MONOnitrate [Imdur ER] 30 mg PO QDAY tablet 01/07/18 07/22/19 Unknown Rx Insulin NPH/Regular [NovoLIN 70/30] 15 unit SUB-Q BIDDIAB units 01/07/18 07/22/19 Unknown Rx Pantoprazole [Protonix] 40 mg PO BID #60 tablet 04/15/19 07/22/19 Unknown Rx oxyCODONE /ACETAMINOPHEN [Percocet 1 tab PO Q4HR PRN #20 tab 04/15/19 07/22/19 Unknown Rx 5/325] Active Meds: Active Medications Acetaminophen (Tylenol) 650 mg PO Q4H PRN PRN Reason: Pain MILD(1-3)/Fever >100.5/VALENTINO Dextrose (D50w (25gm) Syringe) 50 ml IV PRN PRN PRN Reason: Hypoglycemia Hydromorphone HCl (Dilaudid) 0.5 mg IV Q3H PRN PRN Reason: Pain , Severe (7-10) Last Admin: 07/22/19 08:20 Dose: 0.5 mg Documented by: Sodium Chloride (Nacl 0.9% 1000 Ml) 1,000 mls @ 100 mls/hr IV DIRECT RENITA Last Admin: 07/22/19 09:50 Dose: 100 mls/hr Documented by: Insulin Human Lispro (Humalog) 0 unit SUB-Q Q6HR RENITA; Protocol Last Admin: 07/22/19 06:27 Dose: Not Given Documented by: Nicotine (Habitrol) 14 mg TD QDAY RENITA Last Admin: 07/22/19 09:51 Dose: 14 mg Documented by: Ondansetron HCl (Zofran) 4 mg IV Q4H PRN PRN Reason: Nausea And Vomiting Pantoprazole Sodium (Protonix) 40 mg IV BID [facility] Last Admin: 07/22/19 09:51 Dose: 40 mg Documented by: Sodium Chloride (Sodium Chloride Flush Syringe 10 Ml) 10 ml IV BID [facility] Last Admin: 07/22/19 09:51 Dose: 10 ml Documented by: Sodium Chloride (Sodium Chloride Flush Syringe 10 Ml) 10 ml IV PRN PRN PRN Reason: LINE FLUSH Last Admin: 07/22/19 08:21 Dose: 10 ml Documented by: Physical Examination Vital Signs Temp Pulse Resp BP Pulse Ox 97.8 F 102 H 20 142/73 99 07/21/19 19:44 07/21/19 19:44 07/21/19 19:44 07/21/19 19:44 07/21/19 19:44 General appearance: no acute distress HEENT: Positive: PERRL Neck: Positive: trachea midline Cardiac: Positive: Reg Rate and Rhythm Lungs: Positive: Decreased Breath Sounds Neuro: Positive: Grossly Intact Extremities: Absent: edema Results 07/21/19 20:46 07/21/19 20:46 Cardiac Enzymes 07/21/19 07/21/19 Range/Units 20:46 21:21 AST 30 (5-40) units/L CK-MB (CK-2) 1.3 (0.0-4.0) ng/mL CBC 07/21/19 Range/Units 20:46 WBC 8.2 (4.5-11.0) K/mm3 RBC 4.54 (3.65-5.03) M/mm3 Hgb 12.3 (11.8-15.2) gm/dl Hct 36.7 (35.5-45.6) % Plt Count 189 (140-440) K/mm3 Lymph # 1.7 (1.2-5.4) K/mm3 [place] # 0.8 (0.0-0.8) K/mm3 Eos # 0.6 H (0.0-0.4) K/mm3 Baso # 0.1 (0.0-0.1) K/mm3 Comprehensive Metabolic Panel 07/21/19 Range/Units 20:46 Sodium 135 L (137-145) mmol/L Potassium 4.2 (3.6-5.0) mmol/L Chloride 96.8 L (98-107) mmol/L Carbon Dioxide 20 L (22-30) mmol/L BUN 14 (9-20) mg/dL Creatinine 0.7 L (0.8-1.5) mg/dL Glucose 110 H (75-100) mg/dL Calcium 9.2 (8.4-10.2) mg/dL AST 30 (5-40) units/L ALT 13 (7-56) units/L Alkaline Phosphatase 146 H (35-129) units/L Total Protein 8.2 (6.3-8.2) g/dL Albumin 3.8 L (3.9-5) g/dL Assessment and Plan Abdominal pain with N/V Chest pain Hx of Gastric ulcer Hx of Gastric cancer Hx Ischemic cardiomyopathy LVEF 20-25% by echo in 12/2017. no reversible ischemia by [facility] 03/2018. Hx of CAD [facility] 2013: patent mid LAD stent, patent diagonal branch stent, patent mid obtuse marginal stent. Nonobstructive disease of the RCA. EF 30-35%.
--- NOTE | 2019-07-22 17:05 | Consultation ---
History of Present Illness Consult date: 07/22/19 Reason for consult: abdominal pain Requesting physician: JON OLIVAS III Chief complaint: abdominal and chest pain - History of present illness History of present illness: 64yo M , who is well known to our service, with history of gastric cancer, liver lesions, history of CAD who presents to the hospital with abdominal pain and intractable nausea and vomiting he has been previously admitted to the hospital for GI bleed. The patient was supposed to follow-up at the [facility] for further work- up and treatment of his gastric mass. He states that he went to the [facility], he was deemed not to be a surgical candidate. A Chemo-Port was placed and he received 1 round of chemo. He then went on to have severe abdominal pain for which he presented to [facility] and was found to have a perforated gastric ulcer. He had ex lap and had a gastric ulcer fixed. He was discharged about 5 weeks ago and given medications. He ran out of meds about a week and a half ago including PPI 1 every other meds that he had. He states that he did not have his car fixed to get him to the [place] to get refills and get more medications. For about a week and a half now he states that he has been having severe abdominal pain which has been progressive and getting worse. He now has intractable nausea vomiting unable to keep down anything including water. The pain he describes to his epigastrium on the left upper quadrant. Past History Past Medical History: acute [place], arthritis, CAD, cancer (gastric - metastatic), diabetes, GERD, heart failure, hepatitis (C), hypertension Past Surgical History: PTCA (with stents), Other (ex lap for Perforated peptic ulcer) Social history: smoking Family history: no significant family history Medications and Allergies Allergies Allergy/AdvReac Type Severity Reaction Status Date / Time heparin Allergy Severe THROMBOCYTO Verified 09/27/17 11:14 [facility] Home Medications Medication Instructions Recorded Confirmed Last Taken Type Carvedilol [Coreg] 3.125 mg PO BID #60 tablet 01/29/17 07/22/19 09/28/17 Rx Doxepin [SINEquan] 100 mg PO QHS capsule 01/29/17 07/22/19 09/28/17 Rx Folic Acid [Folvite] 1 mg PO QDAY #30 tablet 01/29/17 07/22/19 Unknown Rx Hypromellose [Isopto Tears 0.5%] 2 drops OU Q4H PRN #1 bottle 01/29/17 07/22/19 09/28/17 Rx Lisinopril [Zestril TAB] 2.5 mg PO QDAY #15 tablet 01/29/17 07/22/19 09/28/17 Rx ALPRAZolam [Xanax TAB] 1 mg PO QHS PRN #30 tablet 10/01/17 07/22/19 Unknown Rx Insulin Aspart Prot/Aspart(Nf) 15 units SQ BID #2 vial 10/01/17 07/22/19 Unknown Rx [NovoLOG Mix 70/30 VIAL] Multivitamins Liq [Multiple 5 ml PO QDAY #150 oral.liqd 10/01/17 07/22/19 Unknown Rx Vitamin Liq (Theragran)] Sevelamer Carbonate [Renvela] 1,600 mg PO TIDWM #90 tablet 10/01/17 07/22/19 Unknown Rx Simvastatin (Nf) [Zocor TAB] 20 mg PO QHS #30 tablet 10/01/17 07/22/19 Unknown Rx Thiamine [Vitamin B-1] 100 mg PO QDAY #30 tablet 10/01/17 07/22/19 Unknown Rx ISOSORBIDE MONOnitrate [Imdur ER] 30 mg PO QDAY tablet 01/07/18 07/22/19 Unknown Rx Insulin NPH/Regular [NovoLIN 70/30] 15 unit SUB-Q BIDDIAB units 01/07/18 07/22/19 Unknown Rx Pantoprazole [Protonix] 40 mg PO BID #60 tablet 04/15/19 07/22/19 Unknown Rx oxyCODONE /ACETAMINOPHEN [Percocet 1 tab PO Q4HR PRN #20 tab 04/15/19 07/22/19 Unknown Rx 5/325] Active Meds: Active Medications Acetaminophen (Tylenol) 650 mg PO Q4H PRN PRN Reason: Pain MILD(1-3)/Fever >100.5/VALENTINO Dextrose (D50w (25gm) Syringe) 50 ml IV PRN PRN PRN Reason: Hypoglycemia Hydromorphone HCl (Dilaudid) 0.5 mg IV Q3H PRN PRN Reason: Pain , Severe (7-10) Last Admin: 07/22/19 14:10 Dose: 0.5 mg Documented by: Sodium Chloride (Nacl 0.9% 1000 Ml) 1,000 mls @ 100 mls/hr IV DIRECT [facility] Last Admin: 07/22/19 09:50 Dose: 100 mls/hr Documented by: Insulin Human Lispro (Humalog) 0 unit SUB-Q Q6HR [facility]; Protocol Last Admin: 07/22/19 11:56 Dose: Not Given Documented by: Nicotine (Habitrol) 14 mg TD QDAY [facility] Last Admin: 07/22/19 09:51 Dose: 14 mg Documented by: Ondansetron HCl (Zofran) 4 mg IV Q4H PRN PRN Reason: Nausea And Vomiting Pantoprazole Sodium (Protonix) 40 mg IV BID [facility] Last Admin: 07/22/19 09:51 Dose: 40 mg Documented by: Sodium Chloride (Sodium Chloride Flush Syringe 10 Ml) 10 ml IV BID [facility] Last Admin: 07/22/19 09:51 Dose: 10 ml Documented by: Sodium Chloride (Sodium Chloride Flush Syringe 10 Ml) 10 ml IV PRN PRN PRN Reason: LINE FLUSH Last Admin: 07/22/19 14:09 Dose: 10 ml Documented by: Review of Systems - Constitutional weight loss, fatigue, weakness, chronic pain - Cardiovascular chest pain, no shortness of breath - Respiratory no cough - Gastrointestinal abdominal pain, nausea, vomiting, loss of appetite, early satiety - Genitourinary no dysuria - Muskuloskeletal no low back pain - Integumentary no rash, no pruritis, no sores, no wounds Exam Vital Signs Temp Pulse Resp BP Pulse Ox 97.8 F 102 H 20 142/73 99 07/21/19 19:44 07/21/19 19:44 07/21/19 19:44 07/21/19 19:44 07/21/19 19:44 - General physical appearance Positive: no distress, no pain, other (thin) - Eyes Positive: normal occular movement - Respiratory Positive: normal expansion, normal respiratory effort - Cardiovascular Rhythm: regular - Abdomen Abdomen: Present: soft, surgical scars (well healed upper midline incision). Absent: distended, guarding, rigid - Integumentary no rash, no growths, no abnormal pigmentation - Neurologic Neurologic: alert and oriented to time, place and person, motor strength and sensation are grossly intact - Psychiatric Psychiatric: cooperative Results - Labs 07/21/19 20:46 07/21/19 20:46 Abnormal lab results 07/21/19 07/21/19 07/21/19 Range/Units 20:46 20:46 21:21 MCV 81 L (84-94) fl MCH 27 L (28-32) pg RDW 17.2 H (13.2-15.2) % [place] % (Auto) 10.3 H (0.0-7.3) % Eos % (Auto) 6.9 H (0.0-4.3) % Eos # 0.6 H (0.0-0.4) K/mm3 Sodium 135 L (137-145) mmol/L Chloride 96.8 L (98-107) mmol/L Carbon Dioxide 20 L (22-30) mmol/L Creatinine 0.7 L (0.8-1.5) mg/dL Glucose 110 H (75-100) mg/dL POC Glucose (70-105) Alkaline Phosphatase 146 H (35-129) units/L Total Creatine Kinase 26 L (55-170) units/L CK-MB (CK-2) Rel Index 5.0 H (0-4) Albumin 3.8 L (3.9-5) g/dL Lipase 9 L (13-60) units/L 07/22/19 07/22/19 Range/Units 06:31 11:40 MCV (84-94) fl MCH (28-32) pg RDW (13.2-15.2) % [place] % (Auto) (0.0-7.3) % Eos % (Auto) (0.0-4.3) % Eos # (0.0-0.4) K/mm3 Sodium (137-145) mmol/L Chloride (98-107) mmol/L Carbon Dioxide (22-30) mmol/L Creatinine (0.8-1.5) mg/dL Glucose (75-100) mg/dL POC Glucose 130 H 109 H (70-105) Alkaline Phosphatase (35-129) units/L Total Creatine Kinase (55-170) units/L CK-MB (CK-2) Rel Index (0-4) Albumin (3.9-5) g/dL Lipase (13-60) units/L Diabetes panel 07/21/19 07/22/19 Range/Units 20:46 03:44 Sodium 135 L (137-145) mmol/L Potassium 4.2 (3.6-5.0) mmol/L Chloride 96.8 L (98-107) mmol/L Carbon Dioxide 20 L (22-30) mmol/L BUN 14 (9-20) mg/dL Creatinine 0.7 L (0.8-1.5) mg/dL Glucose 110 H (75-100) mg/dL Hemoglobin A1c 5.8 (4-6) % Calcium 9.2 (8.4-10.2) mg/dL AST 30 (5-40) units/L ALT 13 (7-56) units/L Alkaline Phosphatase 146 H (35-129) units/L Total Protein 8.2 (6.3-8.2) g/dL Albumin 3.8 L (3.9-5) g/dL Calcium panel 07/21/19 Range/Units 20:46 Calcium 9.2 (8.4-10.2) mg/dL Albumin 3.8 L (3.9-5) g/dL Pituitary panel 07/21/19 Range/Units 20:46 Sodium 135 L (137-145) mmol/L Potassium 4.2 (3.6-5.0) mmol/L Chloride 96.8 L (98-107) mmol/L Carbon Dioxide 20 L (22-30) mmol/L BUN 14 (9-20) mg/dL Creatinine 0.7 L (0.8-1.5) mg/dL Glucose 110 H (75-100) mg/dL Calcium 9.2 (8.4-10.2) mg/dL Adrenal panel 07/21/19 Range/Units 20:46 Sodium 135 L (137-145) mmol/L Potassium 4.2 (3.6-5.0) mmol/L Chloride 96.8 L (98-107) mmol/L Carbon Dioxide 20 L (22-30) mmol/L BUN 14 (9-20) mg/dL Creatinine 0.7 L (0.8-1.5) mg/dL Glucose 110 H (75-100) mg/dL Calcium 9.2 (8.4-10.2) mg/dL Total Bilirubin 0.30 (0.1-1.2) mg/dL AST 30 (5-40) units/L ALT 13 (7-56) units/L Alkaline Phosphatase 146 H (35-129) units/L Total Protein 8.2 (6.3-8.2) g/dL Albumin 3.8 L (3.9-5) g/dL - Imaging CT scan - abdomen: report reviewed, image reviewed CT scan - pelvis: report reviewed, image reviewed Assessment and Plan - Patient Problems (1) Abdominal pain Current Visit: No Status: Acute Qualifiers: Abdominal location: generalized Qualified Code(s): R10.84 - Generalized abdominal pain Plan to address problem: Pt stable. His current abdominal pain is essentially in the same location as when we first met him in number of months ago. The differences now the pain is more intense. He also has some discomfort in the lower abdomen now. The main areas are his chest and upper abdomen. He cannot keep anything down he would like to stay in the hospital and get his chemotherapy as he has no help at home. He is also supposed to have palliative therapy but because of lack of resources, he has been unable to set that up at home. The pain medicines that he has received here are starting to help. I do not believe the calcification seen on CT scan is the cause of his pain. His LFTs are essentially normal. I think the pain that we are seeing is the same pain he had when he first presented, which is his metastatic gastric cancer. I would manage his pain as we would for any cancer patient. No surgi luz maria intervention is recommended at this time. Will follow peripherally. Please call with questions Time=30min
--- NOTE | 2019-07-22 19:38 | Gastroenterology Consultation ---
History of Present Illness - Reason for Consult Consult date: 07/22/19 abdominal pain Requesting physician: MINGO EVANS - History of Present Illness The patient is a 64 yo wm with known gastric cancer who presents with abdominal and chest pain. Patient previously seen by GI service for similar symptoms. He has been receiving treatment/chemotherapy for gastric cancer at the [place]. he reports requiring abd surgery ~5 weeks ago but "complication" but he is unable to provide further details regarding this. Ct scan shows signs of known gastric lesion/cancer, along with possible cbd stones. No biliary dilatatiion and liver enzymes unremarkble. pain is constant, generalized throughout abd but mainly epigastric portion with associated poor po intake. Past History Past Medical History: acute [place], arthritis, CAD, cancer (gastric - metastatic), diabetes, GERD, heart failure, hepatitis (C), hypertension Past Surgical History: PTCA (with stents), Other (ex lap for Perforated peptic ulcer) Social history: smoking Family history: no significant family history Medications and Allergies Allergies Allergy/AdvReac Type Severity Reaction Status Date / Time heparin Allergy Severe THROMBOCYTO Verified 09/27/17 11:14 [facility] Home Medications Medication Instructions Recorded Confirmed Last Taken Type Carvedilol [Coreg] 3.125 mg PO BID #60 tablet 01/29/17 07/22/19 09/28/17 Rx Doxepin [SINEquan] 100 mg PO QHS capsule 01/29/17 07/22/19 09/28/17 Rx Folic Acid [Folvite] 1 mg PO QDAY #30 tablet 01/29/17 07/22/19 Unknown Rx Hypromellose [Isopto Tears 0.5%] 2 drops OU Q4H PRN #1 bottle 01/29/17 07/22/19 09/28/17 Rx Lisinopril [Zestril TAB] 2.5 mg PO QDAY #15 tablet 01/29/17 07/22/19 09/28/17 Rx ALPRAZolam [Xanax TAB] 1 mg PO QHS PRN #30 tablet 10/01/17 07/22/19 Unknown Rx Insulin Aspart Prot/Aspart(Nf) 15 units SQ BID #2 vial 10/01/17 07/22/19 Unknown Rx [NovoLOG Mix 70/30 VIAL] Multivitamins Liq [Multiple 5 ml PO QDAY #150 oral.liqd 10/01/17 07/22/19 Unknown Rx Vitamin Liq (Theragran)] Sevelamer Carbonate [Renvela] 1,600 mg PO TIDWM #90 tablet 10/01/17 07/22/19 Unknown Rx Simvastatin (Nf) [Zocor TAB] 20 mg PO QHS #30 tablet 10/01/17 07/22/19 Unknown Rx Thiamine [Vitamin B-1] 100 mg PO QDAY #30 tablet 10/01/17 07/22/19 Unknown Rx ISOSORBIDE MONOnitrate [Imdur ER] 30 mg PO QDAY tablet 01/07/18 07/22/19 Unknown Rx Insulin NPH/Regular [NovoLIN 70/30] 15 unit SUB-Q BIDDIAB units 01/07/18 07/22/19 Unknown Rx Pantoprazole [Protonix] 40 mg PO BID #60 tablet 04/15/19 07/22/19 Unknown Rx oxyCODONE /ACETAMINOPHEN [Percocet 1 tab PO Q4HR PRN #20 tab 04/15/19 07/22/19 Unknown Rx 5/325] Active Meds: Active Medications Acetaminophen (Tylenol) 650 mg PO Q4H PRN PRN Reason: Pain MILD(1-3)/Fever >100.5/VALENTINO Dextrose (D50w (25gm) Syringe) 50 ml IV PRN PRN PRN Reason: Hypoglycemia Hydromorphone HCl (Dilaudid) 0.5 mg IV Q3H PRN PRN Reason: Pain , Severe (7-10) Last Admin: 07/22/19 14:10 Dose: 0.5 mg Documented by: Sodium Chloride (Nacl 0.9% 1000 Ml) 1,000 mls @ 100 mls/hr IV DIRECT [facility] Last Admin: 07/22/19 09:50 Dose: 100 mls/hr Documented by: Insulin Human Lispro (Humalog) 0 unit SUB-Q Q6HR [facility]; Protocol Last Admin: 07/22/19 17:39 Dose: Not Given Documented by: Lorazepam (Ativan) 0.5 mg IV Q4H PRN PRN Reason: Anxiety Nicotine (Habitrol) 14 mg TD QDAY [facility] Last Admin: 07/22/19 09:51 Dose: 14 mg Documented by: Ondansetron HCl (Zofran) 4 mg IV Q4H PRN PRN Reason: Nausea And Vomiting Pantoprazole Sodium (Protonix) 40 mg IV BID [facility] Last Admin: 07/22/19 09:51 Dose: 40 mg Documented by: Sodium Chloride (Sodium Chloride Flush Syringe 10 Ml) 10 ml IV BID [facility] Last Admin: 07/22/19 09:51 Dose: 10 ml Documented by: Sodium Chloride (Sodium Chloride Flush Syringe 10 Ml) 10 ml IV PRN PRN PRN Reason: LINE FLUSH Last Admin: 07/22/19 14:09 Dose: 10 ml Documented by: Reviewed/updated patient's home and current medications Review of Systems - Review of Systems All systems: negative (per HPI) Exam - Constitutional Vital Signs: Temp Pulse Resp BP Pulse Ox 98.1 F 73 18 135/69 100 07/22/19 13:52 07/22/19 13:52 07/22/19 13:52 07/22/19 13:52 07/22/19 13:52 General appearance: no acute distress, other (thin male) - EENT Eyes: PERRL, EOM intact - Neck Neck: supple, normal ROM - Respiratory Respiratory effort: normal Respiratory: bilateral: CTA - Cardiovascular Rhythm: regular Heart Sounds: Present: S1 & S2 Extremities: No edema - Gastrointestinal General gastrointestinal: Present: soft, tender, other (surgical scar/midline ) - Neurologic Neurological: alert and oriented x3 - Psychiatric Psychiatric: appropriate mood/affect - Labs CBC & Chem 7: 07/21/19 20:46 07/21/19 20:46 Lab Results: Laboratory Results - last 24 hr 07/21/19 07/21/19 07/21/19 20:46 20:46 21:21 WBC 8.2 RBC 4.54 Hgb 12.3 Hct 36.7 MCV 81 L MCH 27 L MCHC 34 RDW 17.2 H Plt Count 189 Lymph % (Auto) 21.1 [place] % (Auto) 10.3 H Eos % (Auto) 6.9 H Baso % (Auto) 1.2 Lymph # 1.7 [place] # 0.8 Eos # 0.6 H Baso # 0.1 Seg Neutrophils % 60.5 Seg Neutrophils # 4.9 Sodium 135 L Potassium 4.2 Chloride 96.8 L Carbon Dioxide 20 L Anion Gap 22 BUN 14 Creatinine 0.7 L Estimated GFR > 60 BUN/Creatinine Ratio 20 Glucose 110 H POC Glucose Hemoglobin A1c Calcium 9.2 Total Bilirubin 0.30 AST 30 ALT 13 Alkaline Phosphatase 146 H Total Creatine Kinase 26 L CK-MB (CK-2) 1.3 CK-MB (CK-2) Rel Index 5.0 H Troponin T < 0.010 Total Protein 8.2 Albumin 3.8 L Albumin/Globulin Ratio 0.9 Lipase 9 L Urine Color Urine Turbidity Urine pH Ur Specific [place] Urine Protein Urine Glucose (UA) Urine Ketones Urine Blood Urine Nitrite Urine Bilirubin Urine Urobilinogen Ur Leukocyte Esterase Urine WBC (Auto) Urine RBC (Auto) Urine Mucus 07/21/19 07/22/19 07/22/19 Unknown 03:44 06:31 WBC RBC Hgb Hct MCV MCH MCHC RDW Plt Count Lymph % (Auto) [place] % (Auto) Eos % (Auto) Baso % (Auto) Lymph # [place] # Eos # Baso # Seg Neutrophils % Seg Neutrophils # Sodium Potassium Chloride Carbon Dioxide Anion Gap BUN Creatinine Estimated GFR BUN/Creatinine Ratio Glucose POC Glucose 130 H Hemoglobin A1c 5.8 Calcium Total Bilirubin AST ALT Alkaline Phosphatase Total Creatine Kinase CK-MB (CK-2) CK-MB (CK-2) Rel Index Troponin T Total Protein Albumin Albumin/Globulin Ratio Lipase Urine Color Yellow Urine Turbidity Clear Urine pH 6.0 Ur Specific [place] 1.011 Urine Protein <15 mg/dl Urine Glucose (UA) 50 Urine Ketones Neg Urine Blood Neg Urine Nitrite Neg Urine Bilirubin Neg Urine Urobilinogen < 2.0 Ur Leukocyte Esterase Neg Urine WBC (Auto) 1.0 Urine RBC (Auto) 3.0 Urine Mucus Few 07/22/19 07/22/19 11:40 17:35 WBC RBC Hgb Hct MCV MCH MCHC RDW Plt Count Lymph % (Auto) [place] % (Auto) Eos % (Auto) Baso % (Auto) Lymph # [place] # Eos # Baso # Seg Neutrophils % Seg Neutrophils # Sodium Potassium Chloride Carbon Dioxide Anion Gap BUN Creatinine Estimated GFR BUN/Creatinine Ratio Glucose POC Glucose 109 H 108 H Hemoglobin A1c Calcium Total Bilirubin AST ALT Alkaline Phosphatase Total Creatine Kinase CK-MB (CK-2) CK-MB (CK-2) Rel Index Troponin T Total Protein Albumin Albumin/Globulin Ratio Lipase Urine Color Urine Turbidity Urine pH Ur Specific [place] Urine Protein Urine Glucose (UA) Urine Ketones Urine Blood Urine Nitrite Urine Bilirubin Urine Urobilinogen Ur Leukocyte Esterase Urine WBC (Auto) Urine RBC (Auto) Urine Mucus - Imaging CT Scan: report reviewed Assessment and Plan 1. Abdominal pain - recurrent episodes, likely due to known gastric cancer. doubt related to possible cbd stones as location/presentation seems atypical for GB source. 2. Gastric cancer - defer to oncology; receiving chemotherapy 3. ? CBD stones - unremarkable liver enzymes; no signs of cholangitis; doubt causing symptoms. consider MRCP for further characterization and definitively say if their are retained cbd stones. monitor for now
[2019-07-23] MEDS: INSULIN LISPRO 100 UNIT/ML SUB-Q SCH ×3 (00:54→12:08)
[2019-07-23] MEDS: LORazepam 2 MG/ML VIAL IV PRN ×2 (02:06→09:13)
[2019-07-23 02:54] VITALS: BP 140/74
[2019-07-23] MEDS: HYDROmorphone 1 MG/1 ML INJ IV PRN ×4 (04:31→15:36)
[2019-07-23 05:14] LABS: Basophils # (Auto) 0.1 K/mm3 (0.0-0.1); Eosinophils # (Auto) 0.7 K/mm3 (0.0-0.4); Eosinophils % (Auto) 11.2 % (0.0-4.3); Hematocrit 33.1 % (35.5-45.6); Hemoglobin 11.1 gm/dl (11.8-15.2); Lymphocytes # (Auto) 1.8 K/mm3 (1.2-5.4); Lymphocytes % (Auto) 29.6 % (13.4-35.0); Mean Corpuscular HGB Conc 34 % (32-34); Mean Corpuscular Volume 80 fl (84-94); Monocytes # (Auto) 0.6 K/mm3 (0.0-0.8); Monocytes % (Auto) 9.3 % (0.0-7.3); Platelet Count 140 K/mm3 (140-440); Red Blood Count 4.15 M/mm3 (3.65-5.03)
[2019-07-23 05:33] LABS: BUN/Creatinine Ratio 13; Blood Urea Nitrogen 9 mg/dL (9-20); Calcium 8.5 mg/dL (8.4-10.2); Hemolysis Index 6
[2019-07-23] MEDS: SODIUM CHLORIDE 0.9% 1000 ML 1,000 ML IV SCH (09:08)
[2019-07-23] MEDS: PANTOPRAZOLE 40 MG INJ IV SCH (09:08)
[2019-07-23] MEDS: NICOTINE 14 MG/24 HR PATCH TD SCH (09:09)
--- NOTE | 2019-07-23 10:10 | Progress Note ---
Assessment and Plan Atypical chest pain Troponin negative x 1 No ischemic ECG changes compared to previous studies Abdominal pain Chronic pain syndrome Ischemic cardiomyopathy - compensated Currently on IVF at 100 cc/hour History of coronary artery disease previously on coreg, Imdur, zocor and lisinopril at home Patent LAD, Diag and OM stents by cath 2013 Gastric cancer Recommendations: No further cardiac work-up is needed for the atypical chest pain Patient requires adequate pain control - consider lidocaine patch Resume home meds (coreg, lisinopril, zocor and imdur) when feasible Subjective Date of service: 07/23/19 Principal diagnosis: abdominal pain Interval history: No significant events overnight Objective Vital Signs Temp Pulse Resp BP Pulse Ox 07/23/19 01:55 97.5 F L 79 18 140/74 99 07/22/19 22:00 20 97 07/22/19 19:45 97.6 F 84 20 145/73 97 07/22/19 13:52 98.1 F 73 18 135/69 100 - Physical Examination Narrative exam: General appearance: no acute distress, somnolent but arousable HEENT: Positive: PERRL Neck: Positive: trachea midline Cardiac: Positive: Reg Rate and Rhythm Lungs: Positive: Decreased Breath Sounds Neuro: Positive: Grossly Intact Extremities: Absent: edema HEENT: Positive: PERRL Neck: Positive: trachea midline Neuro: Positive: Grossly Intact Extremities: Absent: edema - Labs and Meds CBC 07/23/19 Range/Units 04:18 WBC 6.2 (4.5-11.0) K/mm3 RBC 4.15 (3.65-5.03) M/mm3 Hgb 11.1 L (11.8-15.2) gm/dl Hct 33.1 L (35.5-45.6) % Plt Count 140 (140-440) K/mm3 Lymph # 1.8 (1.2-5.4) K/mm3 [place] # 0.6 (0.0-0.8) K/mm3 Eos # 0.7 H (0.0-0.4) K/mm3 Baso # 0.1 (0.0-0.1) K/mm3 Comprehensive Metabolic Panel 07/23/19 Range/Units 04:18 Sodium 140 (137-145) mmol/L Potassium 4.3 (3.6-5.0) mmol/L Chloride 105.8 (98-107) mmol/L Carbon Dioxide 22 (22-30) mmol/L BUN 9 (9-20) mg/dL Creatinine 0.7 L (0.8-1.5) mg/dL Glucose 99 (75-100) mg/dL Calcium 8.5 (8.4-10.2) mg/dL
--- NOTE | 2019-07-23 12:58 | Progress Note ---
Assessment and Plan Assessment and plan: Patient is a 64-year-old man with history of gastric cancer, liver lesions, CAD, perforated PUD s/p repair 5 weeks ago at [facility], GERD and Tobacco dependency who presented to [facility] ED with abdominal pain, chest pains, intractable nausea and vomiting. * CT abd/pelvis with contrast IMPRESSION: 1. Interval development of a 3 to 4 mm calcification in the region of the distal common bile duct near the ampulla compatible with choledocholithiasis. No significant intra or extrahepatic biliary dilation. 2. Cholelithiasis within a round, distended gallbladder, but no significant mary-cholecystic inflammatory change. 3. Gastric ulcer again seen, with interval improvement of previously seen associated inflammatory change and resolution of previously seen pneumoperitoneum. 4. Unchanged ind eterminate hepatic lesions. Intractable nausea and abdominal pain likely due to peptic ulcer disease and metastatic gastric CA Choledocholithiasis: General Surgery and GI consulted. 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 Follow-up on current diagnosis of Ap/n/v. Overnight uneventful. Patient denies any chest pain, shortness breath, or severe headaches. Imaging, nursing note, chart, labs and old chart reviewed. Discussed with patient. Hospitalist Physical - Physical exam Narrative exam: GEN: thin frail NAD, Awake, Alert, Orientated HEENT: NCAT, EOMI, PERRL, OP Clear NECK: supple, no adenopathy, no thyromegaly, no JVD CVS/HEART: RRR, normal S1S2, pulses present bilaterally CHEST/LUNGS: CTA B, Symmetrical chest expansion, good air entry bilaterally GI/Abdomen: diffuse tenderness good bowel sounds, no guarding or rebound /Bladder: no suprapubic tenderness, no CVA or paraspinal tenderness EXT/Skin: no c/c/e, no obvious rash MSK: FROM x 4 Neuro: CN 2-12 grossly intact, no new focal deficits Psych: calm - Constitutional Vitals: Temp Pulse Resp BP Pulse Ox 97.5 F L 79 18 140/74 99 07/23/19 01:55 07/23/19 01:55 07/23/19 01:55 07/23/19 01:55 07/23/19 01:55 General appearance: Present: well-nourished. Absent: mild distress Results - Labs CBC & Chem 7: 07/23/19 04:18 07/23/19 04:18 Labs: Laboratory Last Values WBC 6.2 K/mm3 (4.5-11.0) 07/23/19 04:18 RBC 4.15 M/mm3 (3.65-5.03) 07/23/19 04:18 Hgb 11.1 gm/dl (11.8-15.2) L 07/23/19 04:18 Hct 33.1 % (35.5-45.6) L 07/23/19 04:18 MCV 80 fl (84-94) L 07/23/19 04:18 MCH 27 pg (28-32) L 07/23/19 04:18 MCHC 34 % (32-34) 07/23/19 04:18 RDW 17.0 % (13.2-15.2) H 07/23/19 04:18 Plt Count 140 K/mm3 (140-440) 07/23/19 04:18 Lymph % (Auto) 29.6 % (13.4-35.0) 07/23/19 04:18 [place] % (Auto) 9.3 % (0.0-7.3) H 07/23/19 04:18 Eos % (Auto) 11.2 % (0.0-4.3) H 07/23/19 04:18 Baso % (Auto) 1.0 % (0.0-1.8) 07/23/19 04:18 Lymph # 1.8 K/mm3 (1.2-5.4) 07/23/19 04:18 [place] # 0.6 K/mm3 (0.0-0.8) 07/23/19 04:18 Eos # 0.7 K/mm3 (0.0-0.4) H 07/23/19 04:18 Baso # 0.1 K/mm3 (0.0-0.1) 07/23/19 04:18 Seg Neutrophils % 48.9 % (40.0-70.0) 07/23/19 04:18 Seg Neutrophils # 3.1 K/mm3 (1.8-7.7) 07/23/19 04:18 Sodium 140 mmol/L (137-145) 07/23/19 04:18 Potassium 4.3 mmol/L (3.6-5.0) 07/23/19 04:18 Chloride 105.8 mmol/L (98-107) 07/23/19 04:18 Carbon Dioxide 22 mmol/L (22-30) 07/23/19 04:18 Anion Gap 17 mmol/L 07/23/19 04:18 BUN 9 mg/dL (9-20) 07/23/19 04:18 Creatinine 0.7 mg/dL (0.8-1.5) L 07/23/19 04:18 Estimated GFR > 60 ml/min 07/23/19 04:18 BUN/Creatinine Ratio 13 % 07/23/19 04:18 Glucose 99 mg/dL (75-100) 07/23/19 04:18 POC Glucose 74 (70-105) 07/23/19 11:57 Hemoglobin A1c 5.8 % (4-6) 07/22/19 03:44 Calcium 8.5 mg/dL (8.4-10.2) 07/23/19 04:18 Total Bilirubin 0.30 mg/dL (0.1-1.2) 07/21/19 20:46 AST 30 units/L (5-40) 07/21/19 20:46 ALT 13 units/L (7-56) 07/21/19 20:46 Alkaline Phosphatase 146 units/L (35-129) H 07/21/19 20:46 Total Creatine Kinase 26 units/L (55-170) L 07/21/19 21:21 CK-MB (CK-2) 1.3 ng/mL (0.0-4.0) 07/21/19 21:21 CK-MB (CK-2) Rel Index 5.0 (0-4) H 07/21/19 21:21 Troponin T < 0.010 ng/mL (0.00-0.029) 07/21/19 21:21 Total Protein 8.2 g/dL (6.3-8.2) 07/21/19 20:46 Albumin 3.8 g/dL (3.9-5) L 07/21/19 20:46 Albumin/Globulin Ratio 0.9 % 07/21/19 20:46 Lipase 9 units/L (13-60) L 07/21/19 21:21 Urine Color Yellow (Yellow) 07/21/19 Unknown Urine Turbidity Clear (Clear) 07/21/19 Unknown Urine pH 6.0 (5.0-7.0) 07/21/19 Unknown Ur Specific [place] 1.011 (1.003-1.030) 07/21/19 Unknown Urine Protein <15 mg/dl mg/dL (Negative) 07/21/19 Unknown Urine Glucose (UA) 50 mg/dL (Negative) 07/21/19 Unknown Urine Ketones Neg mg/dL (Negative) 07/21/19 Unknown Urine Blood Neg (Negative) 07/21/19 Unknown Urine Nitrite Neg (Negative) 07/21/19 Unknown Urine Bilirubin Neg (Negative) 07/21/19 Unknown Urine Urobilinogen < 2.0 mg/dL (<2.0) 07/21/19 Unknown Ur Leukocyte Esterase Neg (Negative) 07/21/19 Unknown Urine WBC (Auto) 1.0 /HPF (0.0-6.0) 07/21/19 Unknown Urine RBC (Auto) 3.0 /HPF (0.0-6.0) 07/21/19 Unknown Urine Mucus Few /HPF 07/21/19 Unknown Active Medications - Current Medications Current Medications: Generic Name Dose Route Start Last Admin Trade Name Freq PRN Reason Stop Dose Admin Acetaminophen 650 mg 07/22/19 00:09 Tylenol PO Q4H PRN Pain MILD(1-3)/Fever >100.5/VALENTINO Dextrose 50 ml 07/22/19 00:07 D50w (25gm) Syringe IV PRN PRN Hypoglycemia Hydromorphone HCl 0.5 mg 07/22/19 00:09 07/23/19 11:01 Dilaudid IV 0.5 mg Q3H PRN Administration Pain , Severe (7-10) Sodium Chloride 1,000 mls @ 100 mls/hr 07/22/19 01:00 07/23/19 09:08 Nacl 0.9% 1000 Ml IV 100 mls/hr DIRECT RENITA Administration Insulin Human Lispro 0 unit 07/22/19 06:00 07/23/19 12:08 Humalog SUB-Q Not Given Q6HR RENITA Protocol Lorazepam 0.5 mg 07/22/19 18:03 07/23/19 09:13 Ativan IV 0.5 mg Q4H PRN Administration Anxiety Nicotine 14 mg 07/22/19 10:00 07/23/19 09:09 Habitrol TD Not Given QDAY RENITA Ondansetron HCl 4 mg 07/22/19 00:09 Zofran IV Q4H PRN Nausea And Vomiting Pantoprazole Sodium 40 mg 07/22/19 10:00 07/23/19 09:08 Protonix IV 40 mg BID RENITA Administration Sodium Chloride 10 ml 07/22/19 10:00 07/23/19 09:08 Sodium Chloride Flush Syringe 10 Ml IV 10 ml BID RENITA Administration Sodium Chloride 10 ml 07/22/19 00:09 07/22/19 14:09 Sodium Chloride Flush Syringe 10 Ml IV 10 ml PRN PRN Administration LINE FLUSH Nutrition/Malnutrition Assess - Dietary Evaluation Nutrition/Malnutrition Findings: Nutrition Notes Start: 07/22/19 12:41 Freq: Status: Active Protocol: Document 07/22/19 12:41 RS (Rec: 07/22/19 12:50 RS [id number]) Co-Sign 07/22/19 12:41 LM Nutrition Notes Need for Assessment generated from: MD Order,MST Initial or Follow up Brief Note Current Diagnosis Coronary Artery Disease Other Pertinent Diagnosis Peptic Ulcer dz Current Diet NPO Labs/Tests reviewed Pertinent Medications reviewed Height 6 ft Weight 65.6 kg [place] Body Weight (kg) 80.90 BMI 19.5 Weight Status Appropriate Subjective/Other Information Pt consulted for poor PO intake and MST. Pt was visited three times and was asleep. Burn Absent Trauma Absent Nutrition Intervention Follow-Up By: 07/25/19 Additional Comments F/U for MST
--- NOTE | 2019-07-23 13:01 | Discharge Summary ---
Providers - Providers Date of Admission: 07/22/19 00:09 Date of discharge: 07/23/19 Attending physician: MINGO EVANS 07/21/19 23:55 Consult to Physician [CONS] Routine Comment: left mess./ nikos Consulting Provider: KERRY DE LOS SANTOS Physician Instructions: Reason For Exam: abd pain. cholelithiasis. choledocho 07/22/19 00:06 Consult to Physician [CONS] Routine Comment: noted/ nikos Consulting Provider: BRENT FRYE Physician Instructions: Reason For Exam: chest pain 07/22/19 00:07 Consult to Dietitian/Nutrition [CONS] Routine Physician Instructions: Reason For Exam: Reason for Consult: Poor oral intake 07/22/19 00:08 Consult to Physician [CONS] Routine Comment: called answering serv. /nikos Consulting Provider: HALINA NUGENT Physician Instructions: Reason For Exam: Ulcerated gastric mass 07/22/19 00:11 Consult to Physician [CONS] Routine Comment: noted/ nikos Consulting Provider: ALLYSON GOTTLIEB Physician Instructions: Reason For Exam: gastric ca 07/22/19 11:14 Physical Therapy Evaluation and Treat [CONS] Routine Comment: Reason For Exam: WEAKNESS Hospitalization Condition: Stable Hospital course: Patient is a 64-year-old man with history of gastric cancer, liver lesions, CAD, perforated PUD s/p repair 5 weeks ago at [facility], GERD and Tobacco dependency who presented to [facility] ED with abdominal pain, chest pains, intractable nausea and vomiting. * CT abd/pelvis with contrast IMPRESSION: 1. Interval development of a 3 to 4 mm calcification in the region of the distal common bile duct near the ampulla compatible with choledocholithiasis. No significant intra or extrahepatic biliary dilation. 2. Cholelithiasis within a round, distended gallbladder, but no significant mary-cholecystic inflammatory change. 3. Gastric ulcer again seen, with interval improvement of previously seen associated inflammatory change and resolution of previously seen pneumoperitoneum. 4. Unchanged indeterminate hepatic lesions. 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 Disposition: DC-01 TO HOME OR SELFCARE Time spent for discharge: 35 minutes Core Measure Documentation - Palliative Care Palliative Care/ Comfort Measures: Not Applicable - Core Measures Any of the following diagnoses?: none - VTE Discharge Requirements Deep Vein Thrombosis/Pulmonary Embolism Present on Admission: No Has pt received <5 days of overlap therapy or INR<2.0: No Anticoagulant overlap therapy prescribed at discharge: No Contraindication No Overlap Therapy order at DC: Not Indicated Exam - Physical Exam Narrative exam: GEN: thin frail NAD, Awake, Alert, Orientated HEENT: NCAT, EOMI, PERRL, OP Clear NECK: supple, no adenopathy, no thyromegaly, no JVD CVS/HEART: RRR, normal S1S2, pulses present bilaterally CHEST/LUNGS: CTA B, Symmetrical chest expansion, good air entry bilaterally GI/Abdomen: diffuse tenderness good bowel sounds, no guarding or rebound /Bladder: no suprapubic tenderness, no CVA or paraspinal tenderness EXT/Skin: no c/c/e, no obvious rash MSK: FROM x 4 Neuro: CN 2-12 grossly intact, no new focal deficits Psych: calm - Constitutional Vitals: Temp Pulse Resp BP Pulse Ox 97.5 F L 79 18 140/74 99 07/23/19 01:55 07/23/19 01:55 07/23/19 01:55 07/23/19 01:55 07/23/19 01:55 Plan Activity: other (no strenous activity unless cleared by PCP) Diet: advance as tolerated [facility] with: [facility] [Other] - 7 Days HALINA NUGENT MD [Staff Physician] - 7 Days Prescriptions: oxyCODONE /ACETAMINOPHEN [Percocet 5/325 mg] 1 tab PO Q4HR PRN #20 tab PRN Reason: Pain , Severe (7-10)
--- NOTE | 2019-07-24 01:41 | Consultation ---
REFERRED BY: Donnie Coombs M.D. REASON FOR CONSULTATION: Gastric cancer. HISTORY OF PRESENT ILLNESS: I saw the patient, a 64-year-old male in the medical floor. The patient is known to have a gastric cancer with liver lesions, coronary artery disease, came to the hospital because of abdominal pain and nausea, vomiting. [facility] As per the patient, he was deemed not a surgical candidate. MediPort was placed and received one round of chemotherapy, lately was found to have perforated gastric ulcer and he underwent surgery and this was about 5 weeks ago. He was given pain medications. As he ran out of the pain medications, he came to the hospital. He mentioned that he is having his car fixed and he is having issues with appointments with [facility] because of transportation as he has to plan transfusion about 2 weeks in advance. During this admission, the patient has been seen by GI and surgical team. He is on pain medications. No hematemesis, no hematochezia. No chest pain. Has abdominal pain, no fever. No seizure or syncope. PAST MEDICAL HISTORY: [place], arthritis, coronary artery disease, diabetes, GERD, heart failure, hepatitis C, hypertension. PAST SURGICAL HISTORY: PTCA. SOCIAL HISTORY: Smoking. ALLERGIES: MENTION OF HEPARIN ALLERGIC, CAUSES THROMBOCYTOPENIA. HOME MEDICATIONS: Includes Coreg, folic acid, insulin, multivitamin, simvastatin, Protonix, and pain medications. PHYSICAL EXAMINATION: VITAL SIGNS: Temperature 98, pulse 73, respirations 18, BP is 135/69. HEENT: Mild pallor, no icterus. NECK: No neck lymph nodes. HEART: S1, S2. Port present. CHEST: Clear to auscultation anteriorly. ABDOMEN: Soft. Scar of surgery. Tenderness present. EXTREMITIES: No calf tenderness. NEUROLOGIC: Alert, awake. LABORATORY DATA: White cell 8, hemoglobin 12, MCV 81, platelet 189. Potassium 4.2, creatinine 0.7, calcium 9.2, bilirubin 0.3. RADIOLOGY: CT abdomen and pelvis shows gastric ulcer. ASSESSMENT: As per the information, stage 4 gastric cancer. As per the information available, he received one cycle of chemotherapy, details not clear. In the past, CT had shown 2 liver lesions, which could be mets versus hemangioma, but as per the information, he has been deemed a nonsurgical candidate and was on palliative chemotherapy. 1. History of anemia. 2. History of thrombocytopenia, mention of possible cirrhosis. 3. Mention of allergy to heparin, which causes thrombocytopenia. 4. History of rectal bleed. 5. History of loss of weight. 6. History of coronary artery disease. In the past, he was on warfarin. Details not clear for same. I will follow the patient during inpatient stay. JOB# [id number] NM/NTS
== END 2019-07-23 15:45 | disposition home or self-care (01) | DRG 376 ==
LOC: ED 19:24 → 2B-ACE 07-22 00:09
PROVIDERS: ADMIT Internal Medicine; ATTEND Internal Medicine
DX: C16.9 Malignant neoplasm of stomach, unspecified (principal); I25.10 Atherosclerotic heart disease of native coronary artery without angina pectoris; K21.9 Gastro-esophageal reflux disease without esophagitis; F17.200 Nicotine dependence, unspecified, uncomplicated; R07.89 Other chest pain; G89.4 Chronic pain syndrome; I25.5 Ischemic cardiomyopathy; E11.9 Type 2 diabetes mellitus without complications; F41.9 Anxiety disorder, unspecified; I11.0 Hypertensive heart disease with heart failure; I50.9 Heart failure, unspecified; M19.90 Unspecified osteoarthritis, unspecified site; J44.9 Chronic obstructive pulmonary disease, unspecified; B19.20 Unspecified viral hepatitis C without hepatic coma; K80.70 Calculus of gallbladder and bile duct without cholecystitis without obstruction; Z87.11 Personal history of peptic ulcer disease; Z71.6 Tobacco abuse counseling; Z95.5 Presence of coronary angioplasty implant and graft; Z79.899 Other long term (current) drug therapy; Z79.4 Long term (current) use of insulin; I25.2 Old myocardial infarction
CPT/HCPCS: 36415; 71045; 74177; 80048; 80053; 81001; 82550; 82553; 82962; 83036; 83690; 84484; 85025; 87116; 93005; 93010; 99406; G0378; C9113; J1170; J2060; J2270; J7030; Q9967

== ENCOUNTER 2019-08-11 16:02 | Inpatient (IN) | payer MEDICARE ==
[2019-08-11 17:04] LABS: Basophils # (Auto) 0.1 K/mm3 (0.0-0.1); Eosinophils # (Auto) 0.3 K/mm3 (0.0-0.4); Eosinophils % (Auto) 2.5 % (0.0-4.3); Hematocrit 20.8 % (35.5-45.6); Hemoglobin 7.1 gm/dl (11.8-15.2); Lymphocytes # (Auto) 1.7 K/mm3 (1.2-5.4); Lymphocytes % (Auto) 15.4 % (13.4-35.0); Mean Corpuscular HGB Conc 34 % (32-34); Mean Corpuscular Volume 79 fl (84-94); Monocytes # (Auto) 0.7 K/mm3 (0.0-0.8); Monocytes % (Auto) 6.5 % (0.0-7.3); Platelet Count 344 K/mm3 (140-440); Red Blood Count 2.63 M/mm3 (3.65-5.03); Red Cell Distribution Width 17.6 % (13.2-15.2)
[2019-08-11 17:24] LABS: Alanine Aminotransferase 6 units/L (7-56); Albumin 3.1 g/dL (3.9-5); BUN/Creatinine Ratio 31; Blood Urea Nitrogen 25 mg/dL (9-20); Calcium 8.4 mg/dL (8.4-10.2); Hemolysis Index 65
[2019-08-11] MEDS ORDERED: SODIUM CHLORIDE 0.9% 250ML 250 ML IV ONE (19:06)
[2019-08-11] MEDS ORDERED: fentaNYL 100 MCG/2 ML INJ IV ONE (19:28)
[2019-08-11] MEDS ORDERED: ONDANSETRON 4 MG/2 ML INJ IV ONE (19:28)
[2019-08-11] MEDS ORDERED: PANTOPRAZOLE 40 MG INJ IV STA (19:37)
--- NOTE | 2019-08-11 20:25 | History and Physical Report ---
History of Present Illness Chief complaint: I'm coughing up blood History of present illness: 64 YO Male [facility] Facility Resident at [facility] with CHF, CAD S/P Stent Placement x7, HCV, Nicotine Dependence, DM, CT X2, HTN, HIT, Gastric Cancer, HLD, presents to ED for evaluation. Pt states that he has experienced multiple episodes of coughing up blood today and abdominal discomfort. EMS notified and upon arrival the patient was found to be in distress and transported to [facility]. Pt seen and evaluated in ED and found to have SIRS, Upper GI Bleed, and Anemia. Pt denies fever, chills, CP, palpitations, NVD, Syncope, leg swelling, shortness of breath, headache, BRBPR, prolonged travel/immobility, individual/family history of DVT/PE, productive cough, recent ill contacts, skin rash, unintentional weight loss, night sweats, bone pain. GI consulted in ED. Pt admitted to [facility] and initiated on GI bleeding protocol. Prior admission on 08/05/19 reviewed. All listed medication reconciled at time of admission. Past History Past Medical History: other (see HPI) Past Surgical History: bowel surgery, Other (Cardiac stent) Social history: single, smoking. denies: alcohol abuse, prescription drug abuse Family history: diabetes, hypertension Medications and Allergies Allergies Allergy/AdvReac Type Severity Reaction Status Date / Time heparin Allergy Severe THROMBOCYTO Verified 09/27/17 11:14 PENIA Home Medications Medication Instructions Recorded Confirmed Last Taken Type Carvedilol [Coreg] 3.125 mg PO BID #60 tablet 01/29/17 08/05/19 09/28/17 Rx Folic Acid [Folvite] 1 mg PO QDAY #30 tablet 01/29/17 08/05/19 Unknown Rx Hypromellose [Isopto Tears 0.5%] 2 drops OU Q4H PRN #1 bottle 01/29/17 08/05/19 09/28/17 Rx Lisinopril [Zestril TAB] 2.5 mg PO QDAY #15 tablet 01/29/17 08/05/19 09/28/17 Rx Insulin Aspart Prot/Aspart(Nf) 15 units SQ BID #2 vial 10/01/17 08/05/19 Unknown Rx [NovoLOG Mix 70/30 VIAL] Multivitamins Liq [Multiple 5 ml PO QDAY #150 oral.liqd 10/01/17 08/05/19 Unkn own Rx Vitamin Liq (Theragran)] Sevelamer Carbonate [Renvela] 1,600 mg PO TIDWM #90 tablet 10/01/17 08/05/19 Unknown Rx Simvastatin (Nf) [Zocor TAB] 20 mg PO QHS #30 tablet 10/01/17 08/05/19 Unknown Rx Thiamine [Vitamin B-1] 100 mg PO QDAY #30 tablet 10/01/17 08/05/19 Unknown Rx ISOSORBIDE MONOnitrate [Imdur ER] 30 mg PO QDAY tablet 01/07/18 08/05/19 Unknown Rx Insulin NPH/Regular [NovoLIN 70/30] 15 unit SUB-Q BIDDIAB units 01/07/18 08/05/19 Unknown Rx Pantoprazole [Protonix TAB] 40 mg PO BID #60 tablet 04/15/19 08/05/19 Unknown Rx ALPRAZolam [Xanax TAB] 1 mg PO QHS PRN #5 tablet 08/08/19 Unknown Rx Aspirin EC [Halfprin EC] 81 mg PO QDAY #30 tablet 08/08/19 Unknown Rx Doxepin [SINEquan] 100 mg PO QHS #5 capsule 08/08/19 Unknown Rx oxyCODONE /ACETAMINOPHEN [Percocet 1 tab PO Q4HR PRN #10 tab 08/08/19 Unknown Rx 5/325 mg] Review of Systems Constitutional: no weight loss, no weight gain, no fever, no chills Ears, nose, mouth and throat: no ear pain, no ear discharge, no tinnitis, no decreased hearing, no nasal discharge Cardiovascular: no chest pain, no orthopnea, no palpitations, no rapid/irregular heart beat, no edema Respiratory: no cough, no cough with sputum, no excessive sputum, no hemoptysis Gastrointestinal: abdominal pain, hematochezia, no diarrhea, no constipation, no change in bowel habits, no BRBPR Genitourinary Male: no dysuria, no hematuria, no flank pain, no discharge, no urinary frequency Rectal: no pain, no incontinence, no bleeding Musculoskeletal: no neck stiffness, no neck pain, no arm numbness/tingling, no shooting leg pain, no leg numbness/tingling Integumentary: no rash, no redness, no sores, no wounds, no jaundice, no boils Neurological: no transient paralysis, no paralysis, no weakness, no parathesias, no numbness, no tingling, no seizures, no tremors Psychiatric: no anxiety, no memory loss, no change in sleep habits, no sleep disturbances, no insomnia, no hypersomnia, no change in appetite, no suicidal ideation Endocrine: no cold intolerance, no heat intolerance, no polyphagia, no excessive thirst, no polydipsia, no polyuria Hematologic/Lymphatic: no easy bruising, no easy bleeding, no lymphadenopathy, no lymphedema Allergic/Immunologic: no urticaria, no persistent infections, no anaphylaxis Exam - Constitutional Vitals: Temp Pulse Resp BP Pulse Ox 98.2 F 112 H 15 101/56 99 08/11/19 16:11 08/11/19 19:39 08/11/19 20:17 08/11/19 19:39 08/11/19 20:17 General appearance: Present: mild distress - EENT Eyes: Present: PERRL ENT: hearing intact, clear oral mucosa - Neck Neck: Present: supple, normal ROM - Respiratory Respiratory effort: normal Respiratory: bilateral: CTA - Cardiovascular Heart Sounds: Present: S1 & S2. Absent: rub, click - Extremities Extremities: pulses symmetrical, No edema Peripheral Pulses: within normal limits - Abdominal General gastrointestinal: Present: soft, non-tender, non-distended, normal bowel sounds Male genitourinary: Present: normal - Integumentary Integumentary: Present: clear, warm, dry - Musculoskeletal Musculoskeletal: gait normal, strength equal bilaterally - Psychiatric Psychiatric: appropriate mood/affect, intact judgment & insight - Neurologic Neurologic: CNII-XII intact, moves all extremities Results - Labs CBC & Chem 7: 08/11/19 Unknown 08/11/19 Unknown Labs: Abnormal lab results 08/11/19 08/11/19 Range/Units Unknown Unknown WBC 11.1 H (4.5-11.0) K/mm3 RBC 2.63 L (3.65-5.03) M/mm3 Hgb 7.1 L (11.8-15.2) gm/dl Hct 20.8 L (35.5-45.6) % MCV 79 L (84-94) fl MCH 27 L (28-32) pg RDW 17.6 H (13.2-15.2) % Seg Neutrophils % 74.6 H (40.0-70.0) % Seg Neutrophils # 8.2 H (1.8-7.7) K/mm3 Potassium 5.2 H (3.6-5.0) mmol/L BUN 25 H (9-20) mg/dL Glucose 145 H (75-100) mg/dL ALT 6 L (7-56) units/L Albumin 3.1 L (3.9-5) g/dL Lipase 10 L (13-60) units/L Assessment and Plan - Patient Problems (1) SIRS (systemic inflammatory response syndrome) Current Visit: Yes Status: Acute Plan to address problem: IV antibiotic therapy, CBC, CMP, urinalysis, chest x ray, CT Abdomen/Pelvis (2) GI bleed Current Visit: Yes Status: Acute Plan to address problem: Admit to IMCU, GI consulted in ED, PPI therapy, CBC, supportive care, serial abdominal exam. (3) Gastric malignant neoplasm Current Visit: Yes Status: Acute Qualifiers: Malignant neoplasm of stomach location: unspecified location Qualified Code(s): C16.9 - Malignant neoplasm of stomach, unspecified Plan to address problem: GI consulted, pain control, supportive care. (4) Anemia Current Visit: Yes Status: Acute Plan to address problem: supportive care, Transfuse 2 units PRBC, (5) Gastric cancer Current Visit: Yes Status: Acute Qualifiers: Malignant neoplasm of stomach location: overlapping locations Qualified Code(s): C16.8 - Malignant neoplasm of overlapping sites of stomach Plan to address problem: supportive care, GI consulted, (6) DVT prophylaxis Current Visit: Yes Status: Acute Plan to address problem: SCD to BLE while in bed, hold anticoagulation secondary to GI bleeding
--- NOTE | 2019-08-11 20:37 | Emergency Department Report ---
ED GI Bleed HPI - General Chief complaint: GI Bleed Stated complaint: VOMITING BLOOD Time Seen by Provider: 08/11/19 18:45 Source: EMS Mode of arrival: Stretcher Limitations: No Limitations - History of Present Illness Initial comments: 64-year-old male with a known history of gastric cancer, hepatitis C, diabetes mellitus, cardiomyopathy, chronic pain syndrome presents to the emergency department complaining of general pain and bleeding, continued smoking. MD complaint: gross hematemesis, melena, gross hematochezia -: Gradual, days(s) (3) Location: diffuse Radiation: none Severity scale (0 -10): 7 Quality: dull Consistency: constant Improves with: none Worsens with: none Context: history of GI bleed, liver disease, other (gastric cancer) Associated Symptoms: nausea, weakness. denies: malaise, rash, syncope - Related Data Previous Rx's Medication Instructions Recorded Last Taken Type Carvedilol [Coreg] 3.125 mg PO BID #60 tablet 01/29/17 09/28/17 Rx Folic Acid [Folvite] 1 mg PO QDAY #30 tablet 01/29/17 Unknown Rx Hypromellose [Isopto Tears 0.5%] 2 drops OU Q4H PRN #1 bottle 01/29/17 09/28/17 Rx Lisinopril [Zestril TAB] 2.5 mg PO QDAY #15 tablet 01/29/17 09/28/17 Rx Insulin Aspart Prot/Aspart(Nf) 15 units SQ BID #2 vial 10/01/17 Unknown Rx [NovoLOG Mix 70/30 VIAL] Multivitamins Liq [Multiple 5 ml PO QDAY #150 oral.liqd 10/01/17 Unknown Rx Vitamin Liq (Theragran)] Sevelamer Carbonate [Renvela] 1,600 mg PO TIDWM #90 tablet 10/01/17 Unknown Rx Simvastatin (Nf) [Zocor TAB] 20 mg PO QHS #30 tablet 10/01/17 Unknown Rx Thiamine [Vitamin B-1] 100 mg PO QDAY #30 tablet 10/01/17 Unknown Rx ISOSORBIDE MONOnitrate [Imdur ER] 30 mg PO QDAY tablet 01/07/18 Unknown Rx Insulin NPH/Regular [NovoLIN 70/30] 15 unit SUB-Q BIDDIAB units 01/07/18 Unknown Rx Pantoprazole [Protonix TAB] 40 mg PO BID #60 tablet 04/15/19 Unknown Rx ALPRAZolam [Xanax TAB] 1 mg PO QHS PRN #5 tablet 08/08/19 Unknown Rx Aspirin EC [Halfprin EC] 81 mg PO QDAY #30 tablet 08/08/19 Unknown Rx Doxepin [SINEquan] 100 mg PO QHS #5 capsule 08/08/19 Unknown Rx oxyCODONE /ACETAMINOPHEN [Percocet 1 tab PO Q4HR PRN #10 tab 08/08/19 Unknown Rx 5/325 mg] Allergies Allergy/AdvReac Type Severity Reaction Status Date / Time heparin Allergy Severe THROMBOCYTO Verified 09/27/17 11:14 [facility] ED Review of Systems ROS: Stated complaint: VOMITING BLOOD Other details as noted in HPI Comment: All other systems reviewed and negative ED Past Medical Hx - Past Medical History Hx Hypertension: Yes Hx Heart Attack/AMI: Yes Hx Congestive Heart Failure: Yes Hx Diabetes: Yes (5 Yrs) Hx GERD: Yes Hx Liver Disease: No Hx Renal Disease: No Hx Arthritis: Yes Hx Asthma: No Hx COPD: Yes Hx HIV: No Additional medical history: hep c. HIT. stomach ca - Surgical History Hx Coronary Stent: Yes (7 stents) Hx Open Heart Surgery: No Hx Cholecystectomy: No Hx Appendectomy: No Hx Breast Surgery: No Additional Surgical History: abd surgery for stomach ca - Social History Smoking Status: Current Every Day Smoker Substance Use Type: None - Medications Home Medications: Home Medications Medication Instructions Recorded Confirmed Last Taken Type Carvedilol [Coreg] 3.125 mg PO BID #60 tablet 01/29/17 08/05/19 09/28/17 Rx Folic Acid [Folvite] 1 mg PO QDAY #30 tablet 01/29/17 08/05/19 Unknown Rx Hypromellose [Isopto Tears 0.5%] 2 drops OU Q4H PRN #1 bottle 01/29/17 08/05/19 09/28/17 Rx Lisinopril [Zestril TAB] 2.5 mg PO QDAY #15 tablet 01/29/17 08/05/19 09/28/17 Rx Insulin Aspart Prot/Aspart(Nf) 15 units SQ BID #2 vial 10/01/17 08/05/19 Unknown Rx [NovoLOG Mix 70/30 VIAL] Multivitamins Liq [Multiple 5 ml PO QDAY #150 oral.liqd 10/01/17 08/05/19 Unknown Rx Vitamin Liq (Theragran)] Sevelamer Carbonate [Renvela] 1,600 mg PO TIDWM #90 tablet 10/01/17 08/05/19 Unknown Rx Simvastatin (Nf) [Zocor TAB] 20 mg PO QHS #30 tablet 10/01/17 08/05/19 Unknown Rx Thiamine [Vitamin B-1] 100 mg PO QDAY #30 tablet 10/01/17 08/05/19 Unknown Rx ISOSORBIDE MONOnitrate [Imdur ER] 30 mg PO QDAY tablet 01/07/18 08/05/19 Unknown Rx Insulin NPH/Regular [NovoLIN 70/30] 15 unit SUB-Q BIDDIAB units 01/07/18 08/05/19 Unknown Rx Pantoprazole [Protonix TAB] 40 mg PO BID #60 tablet 04/15/19 08/05/19 Unknown Rx ALPRAZolam [Xanax TAB] 1 mg PO QHS PRN #5 tablet 08/08/19 Unknown Rx Aspirin EC [Halfprin EC] 81 mg PO QDAY #30 tablet 08/08/19 Unknown Rx Doxepin [SINEquan] 100 mg PO QHS #5 capsule 08/08/19 Unknown Rx oxyCODONE /ACETAMINOPHEN [Percocet 1 tab PO Q4HR PRN #10 tab 08/08/19 Unknown Rx 5/325 mg] ED Physical Exam - General Limitations: No Limitations General appearance: alert, other (respiratory distress but does appear to be uncomfortable) - Head Head exam: Present: atraumatic, normocephalic - Eye Eye exam: Present: normal appearance, PERRL Pupils: Present: normal accommodation - ENT ENT exam: Present: normal exam, mucous membranes moist, TM's normal bilaterally - Neck Neck exam: Present: normal inspection, full ROM. Absent: meningismus, thyromegaly - Respiratory Respiratory exam: Present: normal lung sounds bilaterally. Absent: respiratory distress - Cardiovascular Cardiovascular Exam: Present: regular rate, tachycardia (122). Absent: systolic murmur, diastolic murmur, rubs, gallop - GI/Abdominal GI/Abdominal exam: Present: soft, tenderness, normal bowel sounds. Absent: distended, guarding, rebound, rigid, hyperactive bowel sounds, hypoactive bowel sounds, organomegaly, mass - Rectal Rectal exam: Present: deferred, heme (+) stool, black stool. Absent: fecal impaction, hemorrhoids - Extremities Exam Extremities exam: Present: normal inspection - Back Exam Back exam: Present: normal inspection - Neurological Exam Neurological exam: Present: alert, oriented X3, CN II-XII intact - Psychiatric Psychiatric exam: Present: normal affect, normal mood - Skin Skin exam: Present: warm, dry, intact, normal color. Absent: rash ED Course Vital Signs 08/11/19 08/11/19 08/11/19 16:11 17:13 19:38 Temperature 98.2 F Pulse Rate 110 H 111 H Respiratory 18 18 15 Rate Blood Pressure 101/61 Blood Pressure 109/63 [Right] O2 Sat by Pulse 100 100 Oximetry 08/11/19 08/11/19 19:39 20:17 Temperature Pulse Rate 112 H Respiratory 15 15 Rate Blood Pressure Blood Pressure 101/56 [Right] O2 Sat by Pulse 100 99 Oximetry - Consultations Consultation #1: 08/11/19 19:49 Case was discussed with gastroenterology aware of Mr. Cabral's case. He recommended admission but is some concern regarding the care of his gastric cancer. 08/11/19 20:38 Consultation #2: 08/11/19 20:02 Case was discussed with hospitalist Dr. Strickland will come to the emergency department to evaluate Mr. Cabral for possible admission ED Medical Decision Making - Lab Data Result diagrams: 08/11/19 Unknown 08/11/19 Unknown - EKG Data EKG shows normal: sinus rhythm Rate: tachycardia - EKG Data Interpretation: no acute changes - Medical Decision Making 64-year-old male with a known history of gastric cancer currently reporting no treatments done with oncology. He reports [facility] which led to a perforated abdomen which she states was was surgically repaired when he denies having any chemotherapy or or for the cancer treatment since that time but is very interested in restarting t reatment involving his gastric cancer. Today he came in with nausea vomiting of blood and also hematochezia. He was found to have a hemoglobin of 7.1 which has decreased from 12.3 earlier this same month his guaiac was positive. Case was discussed with gastroenterology as well as the hospitalist with the plan to to admit that he may be transfused and is currently status also needs to be evaluat ed for further cancer treatment versus hospice therapy. He is alert and oriented at this present time the patient was seen along with Dr. Tubbs had [id number] time with Love Kvng Cabral as well Critical care attestation.: If time is entered above; I have spent that time in minutes in the direct care of this critically ill patient, excluding procedure time. ED Disposition Clinical Impression: Anemia, GI bleed Gastric cancer Qualifiers: Malignant neoplasm of stomach location: overlapping locations Qualified Code(s): C16.8 - Malignant neoplasm of overlapping sites of stomach Disposition: OP ADMIT IP TO THIS HOSP Is pt being admited?: Yes Does the pt Need Aspirin: No Condition: Stable Referrals: PRIMARY CARE, [Primary Care Provider] - 3-5 Days
[2019-08-11] MEDS ORDERED: MORPHINE 2 MG/1 ML INJ ONE (20:52)
[2019-08-11] MEDS ORDERED: SODIUM CHLORIDE 0.9% 1000 ML 1,000 ML ONE (20:52)
[2019-08-11] MEDS ORDERED: MORPHINE 2 MG/1 ML INJ IV ONE (20:53)
[2019-08-11] MEDS ORDERED: SODIUM CHLORIDE 0.9% 1000 ML 1,000 ML IV ONE (20:53)
[2019-08-11] MEDS ORDERED: SODIUM CHLORIDE 0.9% 500 ML 500 ML IV ONE (21:25)
[2019-08-11] MEDS: PANTOPRAZOLE 40 MG INJ IV SCH (22:09)
--- NOTE | 2019-08-11 22:28 | XRay Report ---
CHEST 1 VIEW INDICATION: cough. COMPARISON: 08/05/2019 FINDINGS: SUPPORT DEVICES: [id number] catheters tip in the superior vena cava HEART / MEDIASTINUM: . LUNGS / PLEURA: Interval development patchy parenchymal changes left mid and lower lung zone. Calcifi ed plaque both diaphragms No pneumothorax. ADDITIONAL FINDINGS: IMPRESSION: 1. Acute pulmonary process left mid and lower lung zone, pneumonia is a concern Signer Name: Tripp Schaefer MD Signed: 08/11/2019 10:23 PM Workstation Name: [id number]
--- NOTE | 2019-08-11 23:02 | Cat Scan Report ---
CT ABDOMEN AND PELVIS WITH CONTRAST INDICATION / CLINICAL INFORMATION: Ab pain. TECHNIQUE: Axial CT images were obtained through the abdomen and pelvis after IV contrast. All CT scans at this location are performed using CT dose reduction for ALARA by means of automated exposure control. COMPARISON: 08/05/2019 FINDINGS: LOWER CHEST: No definite pulmonary process lower lung zones. Diaphragmatic calcifications are again i dentified. Fluid is identified in a distended distal esophagus. LIVER: Slight nodularity of the liver is present. Again noted is the low density lesions within the l iver. However, attention is directed to the cavernous transformation of the portal vein. GALLBLADDER: Cholelithiasis is present. BILE DUCTS: No cholelithiasis is a concern. PANCREAS: No significant abnormality. SPLEEN: No significant abnormality. ADRENALS: No significant abnormality. RIGHT KIDNEY and URETER: No significant abnormality. LEFT KIDNEY and URETER: No significant abnormality. STOMACH and SMALL BOWEL: Marked gastric wall thickening extends into the antrum. Findings are consist ent with previous known ulceration. No evidence of perforation or abscess COLON: Fecal impaction is a concern APPENDIX: No significant abnormality. PERITONEUM: No free fluid. No free air. No fluid collection. LYMPH NODES: No significant adenopathy. AORTA and ARTERIES: Severe aortic iliac disease is present. IVC and VEINS: No significant abnormality. URINARY BLADDER: No significant abnormality. REPRODUCTIVE ORGANS: No significant abnormality. ADDITIONAL FINDINGS: None. SKELETAL SYSTEM: No significant abnormality. IMPRESSION: 1. No significant interval change as compared to previous exam 2. Markedly abnormal appearance of the stomach including the antrum without evidence of a definite ab scess from patient's known perforated ulcer 3. Cavernous transformation of the portal vein. 4. Severe aortic iliac disease 5. Cholelithiasis with possible choledocholithiasis 6. Possible fecal impaction 7. Calcified pleural plaques Signer Name: Tripp Schaefer MD Signed: 08/11/2019 10:58 PM Workstation Name: [id number]
[2019-08-11] MEDS: MORPHINE 2 MG/1 ML INJ IV PRN (23:40)
[2019-08-12] MEDS: MORPHINE 2 MG/1 ML INJ IV PRN ×2 (02:56→07:25)
[2019-08-12 09:05] LABS: Basophils # (Auto) 0.1 K/mm3 (0.0-0.1); Basophils % (Auto) 0.8 % (0.0-1.8); Eosinophils # (Auto) 0.2 K/mm3 (0.0-0.4); Eosinophils % (Auto) 2.3 % (0.0-4.3); Hematocrit 23.5 % (35.5-45.6); Hemoglobin 7.9 gm/dl (11.8-15.2); Lymphocytes # (Auto) 2.4 K/mm3 (1.2-5.4); Lymphocytes % (Auto) 26.2 % (13.4-35.0); Mean Corpuscular HGB Conc 34 % (32-34); Mean Corpuscular Volume 80 fl (84-94); Monocytes # (Auto) 0.9 K/mm3 (0.0-0.8); Monocytes % (Auto) 9.9 % (0.0-7.3); Platelet Count 283 K/mm3 (140-440); Red Blood Count 2.93 M/mm3 (3.65-5.03); Red Cell Distribution Width 17.8 % (13.2-15.2)
[2019-08-12] MEDS: PANTOPRAZOLE 40 MG INJ IV SCH (09:13)
[2019-08-12] MEDS: HYDROmorphone 1 MG/1 ML INJ IV PRN ×5 (09:13→22:50)
[2019-08-12 09:23] LABS: Alanine Aminotransferase 5 units/L (7-56); Albumin 2.6 g/dL (3.9-5); BUN/Creatinine Ratio 51; Blood Urea Nitrogen 41 mg/dL (9-20); Calcium 7.9 mg/dL (8.4-10.2); Hemolysis Index 9
--- NOTE | 2019-08-12 10:49 | Progress Note ---
Assessment and Plan Assessment and plan: 64-year-old man with history of gastric cancer with liver lesions, status post repair of perforated ulcer of the stomach in May 2019. 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 -Tobacco abuse/dependence Smoking cessation counseling performed for 10 minutes, nicotine patches when necessary -Hypotension has responded to IV fluids and blood transfusion. DVT prophylaxis SCDs and early ambulation Discussed with GI. Patient has a deep ulcer in the lesser curvature of the stomach that extends all the way to the GE junction with adherent clots. Multiple clots seen in the stomach. And patient has gastric cancer. Recommend transfer to higher level institution where he can be seen by specialized surgeons. Critical care time 35 minutes History Interval history: Review of systems Constitutional: No fevers, no malaise, no joint pains CVS: No chest pain, no orthopnea, no pedal edema GI: Complaining of abdominal pain, continues to have melena Respiratory: No shortness of breath, no wheezing, no coughing Hospitalist Physical - Physical exam Narrative exam: General.: Appears chronically ill, cachectic, mild distress HEENT: Moist mucous membranes, extraocular muscles intact, no lymphadenopathy Neck: supple Cardiac: S1-S2 heard Lungs: clear to auscultation bilaterally Abdomen: soft , epigastric tenderness, nondistended, bowel sounds positive Extremities: no edema clubbing or cyanosis Skin: no rash or lesions Neurologic: no gross focal deficits Psych: calm, and cooperative - Constitutional Vitals: Temp Pulse Resp BP Pulse Ox 97.8 F 94 H 21 107/63 100 08/12/19 06:18 08/12/19 07:11 08/12/19 07:11 08/12/19 07:11 08/12/19 07:11 General appearance: Present: mild distress Results - Labs CBC & Chem 7: 08/13/19 04:09 08/12/19 08:17 Labs: Laboratory Last Values WBC 9.2 K/mm3 (4.5-11.0) 08/12/19 08:17 RBC 2.93 M/mm3 (3.65-5.03) L 08/12/19 08:17 Hgb 7.9 gm/dl (11.8-15.2) L 08/12/19 08:17 Hct 23.5 % (35.5-45.6) L 08/12/19 08:17 MCV 80 fl (84-94) L 08/12/19 08:17 MCH 27 pg (28-32) L 08/12/19 08:17 MCHC 34 % (32-34) 08/12/19 08:17 RDW 17.8 % (13.2-15.2) H 08/12/19 08:17 Plt Count 283 K/mm3 (140-440) 08/12/19 08:17 Lymph % (Auto) 26.2 % (13.4-35.0) 08/12/19 08:17 Hunt % (Auto) 9.9 % (0.0-7.3) H 08/12/19 08:17 Eos % (Auto) 2.3 % (0.0-4.3) 08/12/19 08:17 Baso % (Auto) 0.8 % (0.0-1.8) 08/12/19 08:17 Lymph # 2.4 K/mm3 (1.2-5.4) 08/12/19 08:17 Hunt # 0.9 K/mm3 (0.0-0.8) H 08/12/19 08:17 Eos # 0.2 K/mm3 (0.0-0.4) 08/12/19 08:17 Baso # 0.1 K/mm3 (0.0-0.1) 08/12/19 08:17 Seg Neutrophils % 60.8 % (40.0-70.0) 08/12/19 08:17 Seg Neutrophils # 5.6 K/mm3 (1.8-7.7) 08/12/19 08:17 Sodium 140 mmol/L (137-145) 08/12/19 08:17 Potassium 4.7 mmol/L (3.6-5.0) 08/12/19 08:17 Chloride 109.8 mmol/L (98-107) H 08/12/19 08:17 Carbon Dioxide 21 mmol/L (22-30) L 08/12/19 08:17 Anion Gap 14 mmol/L 08/12/19 08:17 BUN 41 mg/dL (9-20) H 08/12/19 08:17 Creatinine 0.8 mg/dL (0.8-1.5) 08/12/19 08:17 Estimated GFR > 60 ml/min 08/12/19 08:17 BUN/Creatinine Ratio 51 % 08/12/19 08:17 Glucose 124 mg/dL (75-100) H 08/12/19 08:17 POC Glucose 156 (70-105) H 08/12/19 05:19 Calcium 7.9 mg/dL (8.4-10.2) L 08/12/19 08:17 Total Bilirubin 0.30 mg/dL (0.1-1.2) 08/12/19 08:17 AST 15 units/L (5-40) 08/12/19 08:17 ALT 5 units/L (7-56) L 08/12/19 08:17 Alkaline Phosphatase 73 units/L (35-129) 08/12/19 08:17 Total Protein 6.0 g/dL (6.3-8.2) L 08/12/19 08:17 Albumin 2.6 g/dL (3.9-5) L 08/12/19 08:17 Albumin/Globulin Ratio 0.8 % 08/12/19 08:17 Lipase 10 units/L (13-60) L 08/11/19 Unknown Blood Type A NEGATIVE 08/11/19 16:42 Antibody Screen Negative 08/11/19 16:42 Crossmatch See Detail 08/11/19 16:42 Active Medications - Current Medications Current Medications: Generic Name Dose Route Start Last Admin Trade Name Freq PRN Reason Stop Dose Admin Hydromorphone HCl 0.5 mg 08/12/19 08:56 08/12/19 09:13 Dilaudid IV 0.5 mg Q3H PRN Administration Pain , Severe (7-10) Levofloxacin/Dextrose 500 mg in 100 mls @ 100 mls/hr 08/11/19 20:43 08/12/19 09:13 Levaquin 500mg/100ml IV 08/13/19 23:59 100 mls/hr Q24HR RENITA Administration Protocol Pantoprazole Sodium 80 mg/ 100 mls @ 10 mls/hr 08/12/19 11:00 Sodium Chloride IV DIRECT RENITA 8 MG/HR Nicotine 14 mg 08/12/19 11:00 Habitrol TD QDAY RENITA Sodium Chloride 10 ml 08/11/19 22:00 08/12/19 09:18 Sodium Chloride Flush Syringe 10 Ml IV 10 ml BID RENITA Administration Sodium Chloride 10 ml 08/11/19 20:37 Sodium Chloride Flush Syringe 10 Ml IV PRN PRN LINE FLUSH
--- NOTE | 2019-08-12 12:09 | Gastroenterology Consultation ---
<FRANKLIN SZYMANSKI - Last Filed: 08/12/19 15:13> History of Present Illness - Reason for Consult Consult date: 08/12/19 GI bleed, gastric cancer Requesting physician: EMERITA RICE - History of Present Illness Patient is a 64 y/o male with PMH of HTN, OH/CAD (s/p stents), arthritis, DM, dyslipidemia, COPD, tobacco abuse, cirrhosis/hep C, and gastric cancer who presented to ED with recurrent GI bleeding. Patient is previously known to our service for similar symptoms. He is following at the [facility] for tx of his gastric CA with only one prior chemotherapy treatment and recent abdominal surgery several weeks ago for perforation of peptic ulcer). This morning patient was resting in bed w/o acute distress. Reports acute on set yesterday of multiple episodes of vomiting bright red blood and dark maroon stools with last episode overnight. No active signs of bleeding this am per pt/nursing. Admits to chronic abdominal pain that is unchanged. Denies fever, CP, SOB, and N/V now //improved. Abd CT this admission with no significant change from previous. Last EGD 04/2019 (see previous notes). Past History Past Medical History: other (see HPI) Past Surgical History: bowel surgery (exp lap-perforated peptic ulcer), Other (Cardiac stent) Social history: smoking. denies: alcohol abuse, prescription drug abuse Family history: diabetes, hypertension Medications and Allergies Allergies Allergy/AdvReac Type Severity Reaction Status Date / Time heparin Allergy Severe THROMBOCYTO Verified 09/27/17 11:14 PENIA Home Medications Medication Instructions Recorded Confirmed Last Taken Type Carvedilol [Coreg] 3.125 mg PO BID #60 tablet 01/29/17 08/11/19 09/28/17 Rx Folic Acid [Folvite] 1 mg PO QDAY #30 tablet 01/29/17 08/11/19 Unknown Rx Hypromellose [Isopto Tears 0.5%] 2 drops OU Q4H PRN #1 bottle 01/29/17 08/11/19 09/28/17 Rx Lisinopril [Zestril TAB] 2.5 mg PO QDAY #15 tablet 01/29/17 08/11/19 09/28/17 Rx Multivitamins Liq [Multiple 5 ml PO QDAY #150 oral.liqd 10/01/17 08/11/19 Unknown Rx Vitamin Liq (Theragran)] Sevelamer Carbonate [Renvela] 1,600 mg PO TIDWM #90 tablet 10/01/17 08/11/19 Unknown Rx Thiamine [Vitamin B-1] 100 mg PO QDAY #30 tablet 10/01/17 08/11/19 Unknown Rx ISOSORBIDE MONOnitrate [Imdur ER] 30 mg PO QDAY tablet 01/07/18 08/11/19 Unknown Rx Pantoprazole [Protonix TAB] 40 mg PO BID #60 tablet 04/15/19 08/11/19 Unknown Rx ALPRAZolam [Xanax TAB] 1 mg PO QHS PRN #5 tablet 08/08/19 08/11/19 Unknown Rx Aspirin EC [Halfprin EC] 81 mg PO QDAY #30 tablet 08/08/19 08/11/19 Unknown Rx Doxepin [SINEquan] 100 mg PO QHS #5 capsule 08/08/19 08/11/19 Unknown Rx oxyCODONE /ACETAMINOPHEN [Percocet 1 tab PO Q4HR PRN #10 tab 08/08/19 08/11/19 Unknown Rx 5/325 mg] AtorvaSTATin [Lipitor] 10 mg PO QHS 08/11/19 08/11/19 Unknown History Insulin Glargine [Lantus VIAL] 6 units SUB-Q QHS 08/11/19 08/11/19 Unknown History Lispro Insulin [HumaLOG] See Protocol SQ BID 08/11/19 08/11/19 Unknown History Active Meds: Active Medications Hydromorphone HCl (Dilaudid) 0.5 mg IV Q3H PRN PRN Reason: Pain , Severe (7-10) Last Admin: 08/12/19 09:13 Dose: 0.5 mg Documented by: Levofloxacin/Dextrose (Levaquin 500mg/100ml) 500 mg in 100 mls @ 100 mls/hr IV Q24HR RENITA; Protocol Stop: 08/13/19 23:59 Last Admin: 08/12/19 09:13 Dose: 100 mls/hr Documented by: Pantoprazole Sodium 80 mg/ (Sodium Chloride) 100 mls @ 10 mls/hr IV DIRECT RENITA Nicotine (Habitrol) 14 mg TD QDAY RENITA Sodium Chloride (Sodium Chloride Flush Syringe 10 Ml) 10 ml IV BID RENITA Last Admin: 08/12/19 09:18 Dose: 10 ml Documented by: Sodium Chloride (Sodium Chloride Flush Syringe 10 Ml) 10 ml IV PRN PRN PRN Reason: LINE FLUSH medications reviewed/updated as required Review of Systems - Review of Systems All systems: negative Gastrointestinal: abdominal pain, hematemesis Exam - Constitutional Vital Signs: Temp Pulse Resp BP Pulse Ox 97.8 F 94 H 21 107/63 100 08/12/19 06:18 08/12/19 07:11 08/12/19 07:11 08/12/19 07:11 08/12/19 07:11 General appearance: no acute distress, other (chronically ill appering) - EENT Eyes: PERRL, EOM intact ENT: hearing intact - Respiratory Respiratory effort: normal - Cardiovascular Rhythm: regular - Gastrointestinal General gastrointestinal: Present: soft, tender, non-distended, normal bowel sounds, other (+scar from previous surgery) - Neurologic Neurological: alert and oriented x3 - Labs CBC & Chem 7: 08/12/19 08:17 08/12/19 08:17 Lab Results: Laboratory Results - last 24 hr 08/11/19 08/11/19 08/11/19 16:42 Unknown Unknown WBC 11.1 H RBC 2.63 L Hgb 7.1 L Hct 20.8 L MCV 79 L MCH 27 L MCHC 34 RDW 17.6 H Plt Count 344 Lymph % (Auto) 15.4 [place] % (Auto) 6.5 Eos % (Auto) 2.5 Baso % (Auto) 1.0 Lymph # 1.7 [place] # 0.7 Eos # 0.3 Baso # 0.1 Seg Neutrophils % 74.6 H Seg Neutrophils # 8.2 H Sodium 139 Potassium 5.2 H Chloride 104.4 Carbon Dioxide 22 Anion Gap 18 BUN 25 H Creatinine 0.8 Estimated GFR > 60 BUN/Creatinine Ratio 31 Glucose 145 H POC Glucose Calcium 8.4 Total Bilirubin 0.20 AST 18 ALT 6 L Alkaline Phosphatase 87 Total Protein 6.4 Albumin 3.1 L Albumin/Globulin Ratio 0.9 Lipase 10 L Blood Type A NEGATIVE Antibody Screen Negative Crossmatch See Detail 08/12/19 08/12/19 08/12/19 05:19 08:17 08:17 WBC 9.2 RBC 2.93 L Hgb 7.9 L Hct 23.5 L MCV 80 L MCH 27 L MCHC 34 RDW 17.8 H Plt Count 283 Lymph % (Auto) 26.2 [place] % (Auto) 9.9 H Eos % (Auto) 2.3 Baso % (Auto) 0.8 Lymph # 2.4 [place] # 0.9 H Eos # 0.2 Baso # 0.1 Seg Neutrophils % 60.8 Seg Neutrophils # 5.6 Sodium 140 Potassium 4.7 Chloride 109.8 H Carbon Dioxide 21 L Anion Gap 14 BUN 41 H Creatinine 0.8 Estimated GFR > 60 BUN/Creatinine Ratio 51 Glucose 124 H POC Glucose 156 H Calcium 7.9 L Total Bilirubin 0.30 AST 15 ALT 5 L Alkaline Phosphatase 73 Total Protein 6.0 L Albumin 2.6 L Albumin/Globulin Ratio 0.8 Lipase Blood Type Antibody Screen Crossmatch Assessment and Plan 1.GI bleed (hematemesis/maroon bloody stool) 2.gastric cancer (followed by [facility]; on chemo but only 1 tx; s/p recent exp lap for perforated peptic ulcer) 3.abdominal pain 4.H/o cirrhosis/hep C -WBC WNL -LFTs and plt WNL -abd CT reviewed-no significant change from previous -H/H 7.9/23.5-stable but trended down compared to previous -continue to monitor H/H and transfuse as needed- hold blood thinning med ications -pt reports multiple episodes of vomiting bright red blood yesterday with maroon bloody stools. No active signs of bleeding this am -currently HD stable -etiology-most likely 2/2 known gastric cancer vs other -will schedule for repeat EGD today for further evaluation -Keep NPO -continue PPI and supportive care -will defer further tx of gastric cancer to oncology -further recommendations following EGD results <BRIAN HERNÁNDEZ - Last Filed: 08/13/19 12:56> Medications and Allergies Active Meds: Active Medications Dextrose (D50w (25gm) Syringe) 50 ml IV Q30MIN PRN PRN Reason: Hypoglycemia Hydromorphone HCl (Dilaudid) 0.5 mg IV Q3H PRN PRN Reason: Pain , Severe (7-10) Last Admin: 08/13/19 11:09 Dose: 0.5 mg Documented by: Levofloxacin/Dextrose (Levaquin 500mg/100ml) 500 mg in 100 mls @ 100 mls/hr IV Q24HR RENITA; Protocol Stop: 08/13/19 23:59 Last Admin: 08/13/19 10:01 Dose: 100 mls/hr Documented by: Pantoprazole Sodium 80 mg/ (Sodium Chloride) 100 mls @ 10 mls/hr IV DIRECT RENITA Last Admin: 08/13/19 08:05 Dose: 8 mg/hr, 10 mls/hr Documented by: Sodium Chloride (Nacl 0.9% 1000 Ml) 1,000 mls @ 150 mls/hr IV DIRECT RENITA Last Admin: 08/13/19 08:08 Dose: 150 mls/hr Documented by: Insulin Human Lispro (Humalog) 0 unit SUB-Q Q6HR RENITA; Protocol Last Admin: 08/13/19 06:45 Dose: Not Given Documented by: Nicotine (Habitrol) 14 mg TD QDAY RENITA Last Admin: 08/13/19 10:01 Dose: 14 mg Documented by: Sodium Chloride (Sodium Chloride Flush Syringe 10 Ml) 10 ml IV BID [facility] Last Admin: 08/12/19 22:00 Dose: 10 ml Documented by: Sodium Chloride (Sodium Chloride Flush Syringe 10 Ml) 10 ml IV PRN PRN PRN Reason: LINE FLUSH Exam - Constitutional Vital Signs: Temp Pulse Resp BP Pulse Ox 98.2 F 77 10 L 104/60 100 08/13/19 12:00 08/13/19 12:15 08/13/19 12:15 08/13/19 12:15 08/13/19 12:15 - Labs CBC & Chem 7: 08/13/19 04:09 08/12/19 08:17 Lab Results: Laboratory Results - last 24 hr 08/11/19 08/12/19 08/12/19 16:42 12:50 18:04 WBC RBC Hgb Hct MCV MCH MCHC RDW Plt Count POC Glucose 135 H 154 H Blood Type A NEGATIVE Antibody Screen Negative Crossmatch See Detail 08/12/19 08/13/19 08/13/19 23:45 04:09 05:58 WBC 6.0 RBC 1.76 L Hgb 4.7 L* D Hct 14.4 L* D MCV 81 L MCH 27 L MCHC 33 RDW 17.1 H Plt Count 207 POC Glucose 139 H 140 H Blood Type Antibody Screen Crossmatch Assessment and Plan Pt seen and examined. Plan as noted.
[2019-08-12] MEDS: NICOTINE 14 MG/24 HR PATCH TD SCH (12:27)
[2019-08-12] MEDS: PANTOPRAZOLE 80 MG in SODIUM CHLORIDE 0.9% 100 ML IV SCH (13:32)
--- NOTE | 2019-08-12 13:46 | Anesthesia Consultation ---
Anesthesia Consult and Med Hx Date of service: 08/12/19 - Airway Anesthetic Teeth Evaluation: Edentulous ROM Head & Neck: Adequate Mental/Hyoid Distance: Adequate Mallampati Class: Class I Intubation Access Assessment: Good - Pulmonary Exam CTA: Yes - Cardiac Exam Cardiac Exam: RRR - Pre-Operative Health Status ASA Pre-Surgery Classification: ASA4 Proposed Anesthetic Plan: MAC - Pulmonary Hx Smoking: Yes Hx Asthma: No Hx Respiratory Symptoms: No COPD: Yes Hx Pneumonia: No - Cardiovascular System Hx Hypertension: Yes Hx Coronary Artery Disease: Yes Hx Heart Attack/AMI: Yes (S/P stent placement) - Central Nervous System Hx Back Pain: Yes Hx Psychiatric Problems: No - Gastrointestinal Hx Ulcer: Yes Hx Gastroesophageal Reflux Disease: No - Endocrine Hx Renal Disease: No Hx End Stage Renal Disease: No Hx Liver Disease: Yes (Hepatiti C) - Hematic Hx Anemia: Yes - Other Systems Hx Alcohol Use: Yes Hx Substance Use: Yes Hx Cancer: Yes - Additional Comments Anesthesia Medical History Comments: Patient denied previous anesthesia complications
--- NOTE | 2019-08-12 13:49 | Anesthesia Day of Surgery ---
Anesthesia Day of Surgery - Day of Surgery Patient Examined: Yes Patient H&P Reviewed: Yes Patient is NPO: Yes
--- NOTE | 2019-08-12 13:51 | Consultation ---
History of Present Illness Consult date: 08/12/19 Requesting physician: JONO NAVARRO Reason for consult: other (Acute G.I. bleed) History of present illness: PULMONARY/CCM CONSULT NOTE (Full dictation # ) Please see dictated notes for full details Past History Past Medical History: other (see HPI) Past Surgical History: bowel surgery, Other (Cardiac stent) Social history: single, smoking. denies: alcohol abuse, prescription drug abuse Family history: diabetes, hypertension Medications and Allergies Allergies Allergy/AdvReac Type Severity Reaction Status Date / Time heparin Allergy Severe THROMBOCYTO Verified 09/27/17 11:14 PENIA Home Medications Medication Instructions Recorded Confirmed Last Taken Type Carvedilol [Coreg] 3.125 mg PO BID #60 tablet 01/29/17 08/11/19 09/28/17 Rx Folic Acid [Folvite] 1 mg PO QDAY #30 tablet 01/29/17 08/11/19 Unknown Rx Hypromellose [Isopto Tears 0.5%] 2 drops OU Q4H PRN #1 bottle 01/29/17 08/11/19 09/28/17 Rx Lisinopril [Zestril TAB] 2.5 mg PO QDAY #15 tablet 01/29/17 08/11/19 09/28/17 Rx Multivitamins Liq [Multiple 5 ml PO QDAY #150 oral.liqd 10/01/17 08/11/19 Unknown Rx Vitamin Liq (Theragran)] Sevelamer Carbonate [Renvela] 1,600 mg PO TIDWM #90 tablet 10/01/17 08/11/19 Unknown Rx Thiamine [Vitamin B-1] 100 mg PO QDAY #30 tablet 10/01/17 08/11/19 Unknown Rx ISOSORBIDE MONOnitrate [Imdur ER] 30 mg PO QDAY tablet 01/07/18 08/11/19 Unknown Rx Pantoprazole [Protonix TAB] 40 mg PO BID #60 tablet 04/15/19 08/11/19 Unknown Rx ALPRAZolam [Xanax TAB] 1 mg PO QHS PRN #5 tablet 08/08/19 08/11/19 Unknown Rx Aspirin EC [Halfprin EC] 81 mg PO QDAY #30 tablet 08/08/19 08/11/19 Unknown Rx Doxepin [SINEquan] 100 mg PO QHS #5 capsule 08/08/19 08/11/19 Unknown Rx oxyCODONE /ACETAMINOPHEN [Percocet 1 tab PO Q4HR PRN #10 tab 08/08/19 08/11/19 Unknown Rx 5/325 mg] AtorvaSTATin [Lipitor] 10 mg PO QHS 08/11/19 08/11/19 Unknown History Insulin Glargine [Lantus VIAL] 6 units SUB-Q QHS 08/11/19 08/11/19 Unknown History Lispro Insulin [HumaLOG] See Protocol SQ BID 08/11/19 08/11/19 Unknown History Active Meds: Active Medications Hydromorphone HCl (Dilaudid) 0.5 mg IV Q3H PRN PRN Reason: Pain , Severe (7-10) Last Admin: 08/12/19 12:27 Dose: 0.5 mg Documented by: Levofloxacin/Dextrose (Levaquin 500mg/100ml) 500 mg in 100 mls @ 100 mls/hr IV Q24HR RENITA; Protocol Stop: 08/13/19 23:59 Last Admin: 08/12/19 09:13 Dose: 100 mls/hr Documented by: Pantoprazole Sodium 80 mg/ (Sodium Chloride) 100 mls @ 10 mls/hr IV DIRECT RENITA Last Admin: 08/12/19 13:32 Dose: 8 mg/hr, 10 mls/hr Documented by: Sodium Chloride (Nacl 0.9% 1000 Ml) 1,000 mls @ 50 mls/hr IV DIRECT RENITA Nicotine (Habitrol) 14 mg TD QDAY RENITA Last Admin: 08/12/19 12:27 Dose: Not Given Documented by: Sodium Chloride (Sodium Chloride Flush Syringe 10 Ml) 10 ml IV BID RENITA Last Admin: 08/12/19 09:18 Dose: 10 ml Documented by: Sodium Chloride (Sodium Chloride Flush Syringe 10 Ml) 10 ml IV PRN PRN PRN Reason: LINE FLUSH Physical Examination Vital signs: Vital Signs Temp Pulse Resp BP Pulse Ox 98.2 F 110 H 18 101/61 100 08/11/19 16:11 08/11/19 16:11 08/11/19 16:11 08/11/19 16:11 08/11/19 16:11 Results - Laboratory Findings CBC and BMP: 08/12/19 08:17 08/12/19 08:17 Abnormal lab findings: Abnormal Labs 08/11/19 08/11/19 08/11/19 16:42 Unknown Unknown WBC 11.1 H RBC 2.63 L Hgb 7.1 L Hct 20.8 L MCV 79 L MCH 27 L RDW 17.6 H [place] % (Auto) Dewey # Seg Neutrophils % 74.6 H Seg Neutrophils # 8.2 H Potassium 5.2 H Chloride Carbon Dioxide BUN 25 H Glucose 145 H POC Glucose Calcium ALT 6 L Total Protein Albumin 3.1 L Lipase 10 L Crossmatch See Detail 08/12/19 08/12/19 08/12/19 05:19 08:17 08:17 WBC RBC 2.93 L Hgb 7.9 L Hct 23.5 L MCV 80 L MCH 27 L RDW 17.8 H [place] % (Auto) 9.9 H [place] # 0.9 H Seg Neutrophils % Seg Neutrophils # Potassium Chloride 109.8 H Carbon Dioxide 21 L BUN 41 H Glucose 124 H POC Glucose 156 H Calcium 7.9 L ALT 5 L Total Protein 6.0 L Albumin 2.6 L Lipase Crossmatch
[2019-08-12] MEDS: SODIUM CHLORIDE 0.9% 1000 ML 1,000 ML IV SCH ×2 (14:24→19:07)
[2019-08-12] MEDS ORDERED: PROPOFOL 200 MG/20 ML VIAL IV ONE (14:41)
--- NOTE | 2019-08-12 14:54 | Post Operative Note ---
Pre-op diagnosis: Hematemesis Post-op diagnosis: other (Cratered, malignant-appearing large ulcer in distal lesser curve with adherent old clot. No active bleeding.) Findings: 1. Normal esophagus 2. Gastric lumen with decreased visualization due to presence of large amount of old-appearing clot. 3. Large deeply cratered ulcer in distal lesser curve. Adherent clot within it precluding visualization, but no fresh red clot or blood. 4. Ulcerated and friable mucosa extending up lesser curve almost to GE junction. 5. Normal antrum and cardia. 6. Normal duodenum and bulb. Procedure: EGD Anesthesia: MAC Surgeon: BRIAN HERNÁNDEZ Estimated blood loss: none Pathology: none Condition: stable Disposition: ICU (If rebleeds, consider IR evalation. No role for endoscopic therapy at present. Recommend transfer to [place].)
--- NOTE | 2019-08-12 14:59 | Post Anesthesia Evaluation ---
- Post Anesthesia Evaluation Patient Participated: Yes Airway Patent: Yes Stable Respiratory Function: Yes Nausea/Vomiting: No Temp > 96.8F: Yes Pain Manageable: Yes Adequeate Hydration: Yes Anesthesia Complications: No Block Receding Appropriately: Not Applicable Patient on Ventilator: No
--- NOTE | 2019-08-12 15:21 | Operative Report ---
PROCEDURE: Upper endoscopy. PREOPERATIVE DIAGNOSIS: Hematemesis. POSTOPERATIVE DIAGNOSIS: Malignant appearing cratered gastric ulcer. SEDATION: MAC by Anesthesia. HISTORY: The patient is a 64-year-old man with a known gastric cancer. He apparently underwent surgery recently for perforated ulcer. He is being followed at the [facility] in [place], but unfortunately, it does not appear the followup has been consistent. He presented with hematemesis x 1 day. DESCRIPTION OF PROCEDURE: Indications, risks, and benefits were explained and consent was obtained. The patient was placed in left lateral decubitus position and sedated. Video upper endoscope was passed through the mouth and oropharynx into the descending duodenum. Scope was then gradually withdrawn with close inspection of the mucosa. FINDINGS: 1. Normal appearing esophagus. 2. Large deeply cratered ulcer in the distal aspect of the lesser curvature with old adherent clot including most of the lumen. White fibrinous base noted. No fresh red clot or old blood noted. 3. Ulcerated and eroded gastric mucosa along the lesser curvature extending nearly to the EG junction. 4. Normal appearing gastric antrum as well as cardia. 5. Majority of gastric lumen occluded by presence of old grayish appearing clot with no fresh blood noted. 6. Normal appearing duodenal bulb and duodenum. The patient tolerated the procedure well without immediate complication. IMPRESSION: 1. Large cratered malignant-appearing ulcer in lesser curvature of stomach -- likely source of bleeding. Not actively bleeding at present. 2. Visualization precluded by old clot. 3. Ulcerated mucosa, likely malignant, involving majority of the lesser curvature of the stomach. 4. Malignant gastric ulcer and gastric cancer -- likely source of bleeding. 5. Poor visualization. RECOMMENDATIONS: 1. Monitor H and H and transfuse as needed. 2. Would recommend transfer as soon as possible to the [facility] in [place] for ongoing management. 3. If actively bleeds, can consider attempt with Interventional Radiology to see if there is any role for embolization. JOB# [id number] [facility]/NTS
[2019-08-12] MEDS ORDERED: DEXTROSE 50% IN WATER (25GM) 50 ML SYRINGE IV PRN (16:43)
[2019-08-12] MEDS: INSULIN LISPRO 100 UNIT/ML SUB-Q SCH (18:09)
[2019-08-13] MEDS: SODIUM CHLORIDE 0.9% 1000 ML 1,000 ML IV SCH ×2 (01:27→08:08)
[2019-08-13] MEDS: PANTOPRAZOLE 80 MG in SODIUM CHLORIDE 0.9% 100 ML IV SCH ×2 (01:27→08:05)
[2019-08-13] MEDS: HYDROmorphone 1 MG/1 ML INJ IV PRN ×6 (01:38→15:55)
[2019-08-13 05:06] LABS: Mean Corpuscular HGB Conc 33 % (32-34); Mean Corpuscular Volume 81 fl (84-94); Platelet Count 207 K/mm3 (140-440); Red Blood Count 1.76 M/mm3 (3.65-5.03); Red Cell Distribution Width 17.1 % (13.2-15.2)
[2019-08-13 05:31] LABS: Hematocrit 14.4 % (35.5-45.6); Hemoglobin 4.7 gm/dl (11.8-15.2)
[2019-08-13] MEDS ORDERED: SODIUM CHLORIDE 0.9% 500 ML 500 ML IV ONE ×2 (05:40→09:00)
[2019-08-13] MEDS: INSULIN LISPRO 100 UNIT/ML SUB-Q SCH ×3 (06:45→12:33)
--- NOTE | 2019-08-13 07:48 | Progress Note ---
Assessment and Plan Assessment and plan: 64-year-old man with history of gastric cancer with liver lesions, status post repair of perforated ulcer of the stomach in May 2019. Also has history of choledocholithiasis, and chronic malignant gastric ulcer.He presented to the hospital complaining of gross hematemesis melena and hematochezia Diagnosis Upper GI bleed, likely from peptic ulcers Acute blood loss anemia Metastatic gastric cancer with malignant ulcer Chronic peptic ulcer due to cancer History of repair of perforated peptic ulcer May 2019 at [facility] Tobacco abuse, current everyday smoker Hyperkalemia Hypotension due to hypovolemia Plan -GI consult appreciated, continue n.p.o., pain meds and Protonix ggt, hg stable improved today -Continue pain meds for abdominal pain -Blood count has again dropped. Has received 2 units, order an additional 2 units of blood -Tobacco abuse/dependence Smoking cessation counseling performed for 10 minutes, nicotine patches when necessary -Hypotension has responded to IV fluids and blood transfusion. -States that he only got chemotherapy once at the [facility], was not able to follow-up after that as he did not have transportation. DVT prophylaxis SCDs and early ambulation Discussed with GI. Patient has a deep ulcer in the lesser curvature of the stomach that extends all the way to the GE junction with adherent clots. Multiple clots seen in the stomach. And patient has gastric cancer. Recommend transfer to higher level institution where he can be seen by specialized surgeons. Discussed with on-call surgeon at [facility]. They will accept patient when he is more stable. His hemoglobin is currently 4.7, they will need his hemoglobin to be closer to 7 prior to accepting him. Therefore after blood transfusion repeat hemoglobin and give [facility] a call back. Critical care time 35 minutes History Interval history: Review of systems Constitutional: No fevers, no malaise, no joint pains CVS: No chest pain, no orthopnea, no pedal edema GI: Complaining of abdominal pain, continues to have melena and blood in stool Respiratory: No shortness of breath, no wheezing, no coughing Hospitalist Physical - Physical exam Narrative exam: General.: Appears chronically ill, cachectic, mild distress HEENT: Moist mucous membranes, extraocular muscles intact, no lymphadenopathy Neck: supple Cardiac: S1-S2 heard Lungs: clear to auscultation bilaterally Abdomen: soft , epigastric tenderness, nondistended, bowel sounds positive Extremities: no edema clubbing or cyanosis Skin: no rash or lesions Neurologic: no gross focal deficits Psych: calm, and cooperative - Constitutional Vitals: Temp Pulse Resp BP Pulse Ox 97.4 F L 79 21 110/65 97 08/13/19 06:52 08/13/19 07:30 08/13/19 07:30 08/13/19 07:30 08/13/19 07:30 General appearance: Present: mild distress Results - Labs CBC & Chem 7: 08/13/19 04:09 08/12/19 08:17 Labs: Laboratory Last Values WBC 6.0 K/mm3 (4.5-11.0) 08/13/19 04:09 RBC 1.76 M/mm3 (3.65-5.03) L 08/13/19 04:09 Hgb 4.7 gm/dl (11.8-15.2) L* D 08/13/19 04:09 Hct 14.4 % (35.5-45.6) L* D 08/13/19 04:09 MCV 81 fl (84-94) L 08/13/19 04:09 MCH 27 pg (28-32) L 08/13/19 04:09 MCHC 33 % (32-34) 08/13/19 04:09 RDW 17.1 % (13.2-15.2) H 08/13/19 04:09 Plt Count 207 K/mm3 (140-440) 08/13/19 04:09 Lymph % (Auto) 26.2 % (13.4-35.0) 08/12/19 08:17 [place] % (Auto) 9.9 % (0.0-7.3) H 08/12/19 08:17 Eos % (Auto) 2.3 % (0.0-4.3) 08/12/19 08:17 Baso % (Auto) 0.8 % (0.0-1.8) 08/12/19 08:17 Lymph # 2.4 K/mm3 (1.2-5.4) 08/12/19 08:17 [place] # 0.9 K/mm3 (0.0-0.8) H 08/12/19 08:17 Eos # 0.2 K/mm3 (0.0-0.4) 08/12/19 08:17 Baso # 0.1 K/mm3 (0.0-0.1) 08/12/19 08:17 Seg Neutrophils % 60.8 % (40.0-70.0) 08/12/19 08:17 Seg Neutrophils # 5.6 K/mm3 (1.8-7.7) 08/12/19 08:17 Sodium 140 mmol/L (137-145) 08/12/19 08:17 Potassium 4.7 mmol/L (3.6-5.0) 08/12/19 08:17 Chloride 109.8 mmol/L (98-107) H 08/12/19 08:17 Carbon Dioxide 21 mmol/L (22-30) L 08/12/19 08:17 Anion Gap 14 mmol/L 08/12/19 08:17 BUN 41 mg/dL (9-20) H 08/12/19 08:17 Creatinine 0.8 mg/dL (0.8-1.5) 08/12/19 08:17 Estimated GFR > 60 ml/min 08/12/19 08:17 BUN/Creatinine Ratio 51 % 08/12/19 08:17 Glucose 124 mg/dL (75-100) H 08/12/19 08:17 POC Glucose 140 (70-105) H 08/13/19 05:58 Calcium 7.9 mg/dL (8.4-10.2) L 08/12/19 08:17 Total Bilirubin 0.30 mg/dL (0.1-1.2) 08/12/19 08:17 AST 15 units/L (5-40) 08/12/19 08:17 ALT 5 units/L (7-56) L 08/12/19 08:17 Alkaline Phosphatase 73 units/L (35-129) 08/12/19 08:17 Total Protein 6.0 g/dL (6.3-8.2) L 08/12/19 08:17 Albumin 2.6 g/dL (3.9-5) L 08/12/19 08:17 Albumin/Globulin Ratio 0.8 % 08/12/19 08:17 Lipase 10 units/L (13-60) L 08/11/19 Unknown Blood Type A NEGATIVE 08/11/19 16:42 Antibody Screen Negative 08/11/19 16:42 Crossmatch See Detail 08/11/19 16:42 Active Medications - Current Medications Current Medications: Generic Name Dose Route Start Last Admin Trade Name Leona PRN Reason Stop Dose Admin Dextrose 50 ml 08/12/19 16:43 D50w (25gm) Syringe IV Q30MIN PRN Hypoglycemia Hydromorphone HCl 0.5 mg 08/12/19 08:56 08/13/19 04:43 Dilaudid IV 0.5 mg Q3H PRN Administration Pain , Severe (7-10) Levofloxacin/Dextrose 500 mg in 100 mls @ 100 mls/hr 08/11/19 20:43 08/12/19 09:13 Levaquin 500mg/100ml IV 08/13/19 23:59 100 mls/hr Q24HR RENITA Administration Protocol Pantoprazole Sodium 80 mg/ 100 mls @ 10 mls/hr 08/12/19 12:00 08/13/19 01:27 Sodium Chloride IV 8 mg/hr DIRECT RENITA 10 mls/hr Administration 8 MG/HR Sodium Chloride 1,000 mls @ 150 mls/hr 08/12/19 14:00 08/13/19 01:27 Nacl 0.9% 1000 Ml IV 150 mls/hr DIRECT RENITA Administration Insulin Human Lispro 0 unit 08/12/19 18:00 08/13/19 06:45 Humalog SUB-Q Not Given Q6HR RENITA Protocol Nicotine 14 mg 08/12/19 12:00 08/12/19 12:27 Habitrol TD Not Given QDAY RENITA Sodium Chloride 10 ml 08/11/19 22:00 08/12/19 22:00 Sodium Chloride Flush Syringe 10 Ml IV 10 ml BID RENITA Administration Sodium Chloride 10 ml 08/11/19 20:37 Sodium Chloride Flush Syringe 10 Ml IV PRN PRN LINE FLUSH
[2019-08-13] MEDS: NICOTINE 14 MG/24 HR PATCH TD SCH (10:01)
--- NOTE | 2019-08-13 11:45 | Discharge Summary ---
Providers - Providers Date of Admission: 08/11/19 20:37 Attending physician: JONO NAVARRO MD 08/11/19 20:47 Consult to Physician [CONS] Routine Comment: JADE Nichols spoke with Dr. Hernández @ 1939 Consulting Provider: BRIAN HERNÁNDEZ Physician Instructions: Reason For Exam: GI Bleed/Gastric Cancer Primary care physician: [employer] Hospitalization Condition: Stable Hospital course: 64-year-old man with history of gastric cancer with liver lesions, status post repair of perforated ulcer of the stomach in May 2019. 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 Received a total of 4 units of packed red blood cells -Tobacco abuse/dependence Smoking cessation counseling performed for 10 minutes, nicotine patches when necessary -Hypotension has responded to IV fluids and blood transfusion. -States that he only got chemotherapy once at the [facility], was not able to follow-up after that as he did not have transportation. DVT prophylaxis SCDs and early ambulation Discussed with GI. Patient has a deep ulcer in the lesser curvature of the stomach that extends all the way to the GE junction with adherent clots. Multiple clots seen in the stomach. And patient has gastric cancer. Recommend transfer to higher level institution where he can be seen by specialized surgeons. Preventative health counseling performed for 17 minutes Discussed with on-call surgeon at [facility]. Patient was accepted. Disposition: [id number] [facility] IP Time spent for discharge: 33 mins Core Measure Documentation - Palliative Care Palliative Care/ Comfort Measures: Not Applicable - Core Measures Any of the following diagnoses?: heart failure - Heart Failure Discharge Requirements ROBERTO/ARB for LVSD if EF <40%: No Reason for no ROBERTO/ARB: Hypotension Beta aries at discharge: No Reason for no beta aries on DC: Hypotension Exam - Physical Exam Narrative exam: General.: Appears chronically ill, cachectic, mild distress HEENT: Moist mucous membranes, extraocular muscles intact, no lymphadenopathy Neck: supple Cardiac: S1-S2 heard Lungs: clear to auscultation bilaterally Abdomen: soft , epigastric tenderness, nondistended, bowel sounds positive Extremities: no edema clubbing or cyanosis Skin: no rash or lesions Neurologic: no gross focal deficits Psych: calm, and cooperative - Constitutional Vitals: Temp Pulse Resp BP Pulse Ox 98.0 F 79 22 115/68 85 08/13/19 09:16 08/13/19 11:00 08/13/19 11:00 08/13/19 11:00 08/13/19 10:45 Plan Follow up with: PRIMARY CAREMD [Primary Care Provider] - 3-5 Days Forms: Accompanied Note
--- NOTE | 2019-08-13 13:47 | Progress Note ---
Assessment and Plan 1. Gastric cancer - with deeply crated ulcer in distal lesser curve. Likely source of bleeding. - agree with plans for transfer - o/w, can consider IR evaluation for embolization - meantime, transfuse as needed Subjective Date of service: 08/13/19 Interval history: Pt had multiple bloody BMs overnight, states slowed markedly now, and is otherwise doing well. No abd pain, N/V. Objective - Constitutional Vitals: Vital Signs - 12hr 08/13/19 08/13/19 08/13/19 01:45 02:00 02:01 Temperature Pulse Rate 90 87 Respiratory 24 12 Rate Blood Pressure 129/57 121/58 O2 Sat by Pulse 100 100 100 Oximetry 08/13/19 08/13/19 08/13/19 02:15 02:30 02:45 Temperature Pulse Rate 83 84 85 Respiratory 10 L 13 11 L Rate Blood Pressure 105/62 101/60 98/61 O2 Sat by Pulse 97 100 Oximetry 08/13/19 08/13/19 08/13/19 03:00 03:15 03:30 Temperature Pulse Rate 85 83 83 Respiratory 11 L 11 L 13 Rate Blood Pressure 100/58 103/60 105/58 O2 Sat by Pulse 99 99 97 Oximetry 08/13/19 08/13/19 08/13/19 03:45 04:00 04:15 Temperature 97.8 F Pulse Rate 83 80 86 Respiratory 12 12 17 Rate Blood Pressure 105/61 111/61 105/73 O2 Sat by Pulse 99 94 Oximetry 08/13/19 08/13/19 08/13/19 04:30 04:45 04:49 Temperature Pulse Rate 81 83 82 Respiratory 12 17 Rate Blood Pressure 110/63 109/63 O2 Sat by Pulse 87 Oximetry 08/13/19 08/13/19 08/13/19 05:00 05:15 05:30 Temperature Pulse Rate 89 82 96 H Respiratory 12 10 L 12 Rate Blood Pressure 104/58 112/61 92/68 O2 Sat by Pulse 100 100 100 Oximetry 08/13/19 08/13/19 08/13/19 05:45 06:00 06:15 Temperature Pulse Rate 81 83 79 Respiratory 12 13 12 Rate Blood Pressure 113/59 105/60 105/59 O2 Sat by Pulse 96 100 Oximetry 08/13/19 08/13/19 08/13/19 06:30 06:34 06:45 Temperature 97.8 F Pulse Rate 82 78 80 Respiratory 15 12 11 L Rate Blood Pressure 110/62 107/58 116/61 O2 Sat by Pulse 97 100 100 Oximetry 08/13/19 08/13/19 08/13/19 06:52 07:00 07:15 Temperature 97.4 F L Pulse Rate 93 H 84 86 Respiratory 19 18 21 Rate Blood Pressure 116/61 114/63 116/57 O2 Sat by Pulse 100 92 Oximetry 08/13/19 08/13/19 08/13/19 07:30 07:45 07:48 Temperature 97.9 F Pulse Rate 79 80 78 Respiratory 21 11 L 12 Rate Blood Pressure 110/65 107/67 106/60 O2 Sat by Pulse 97 100 Oximetry 08/13/19 08/13/19 08/13/19 08:00 08:15 08:18 Temperature 97.9 F 98.1 F Pulse Rate 82 78 73 Respiratory 18 13 20 Rate Blood Pressure 105/55 113/60 115/67 O2 Sat by Pulse 100 99 Oximetry 08/13/19 08/13/19 08/13/19 08:30 08:45 09:00 Temperature Pulse Rate 79 76 82 Respiratory 12 19 9 L Rate Blood Pressure 103/57 105/59 100/60 O2 Sat by Pulse 100 100 93 Oximetry 08/13/19 08/13/19 08/13/19 09:16 09:30 09:45 Temperature 98.0 F Pulse Rate 80 74 79 Respiratory 10 L 8 L 16 Rate Blood Pressure 110/52 103/57 109/57 O2 Sat by Pulse 98 100 100 Oximetry 08/13/19 08/13/19 08/13/19 10:00 10:15 10:30 Temperature Pulse Rate 79 80 85 Respiratory 11 L 21 13 Rate Blood Pressure 112/62 111/62 109/76 O2 Sat by Pulse 96 100 Oximetry 08/13/19 08/13/19 08/13/19 10:45 11:00 11:15 Temperature Pulse Rate 93 H 79 84 Respiratory 9 L 22 13 Rate Blood Pressure 111/84 115/68 116/62 O2 Sat by Pulse 85 100 Oximetry 08/13/19 08/13/19 08/13/19 11:30 11:45 12:00 Temperature 98.2 F Pulse Rate 80 79 88 Respiratory 10 L 10 L 11 L Rate Blood Pressure 107/62 104/64 113/69 O2 Sat by Pulse 100 100 82 L Oximetry 08/13/19 08/13/19 08/13/19 12:15 12:30 12:45 Temperature Pulse Rate 77 77 84 Respiratory 10 L 13 12 Rate Blood Pressure 104/60 110/60 111/62 O2 Sat by Pulse 100 100 100 Oximetry 08/13/19 13:00 Temperature Pulse Rate 82 Respiratory 12 Rate Blood Pressure 99/66 O2 Sat by Pulse 100 Oximetry General appearance: Present: no acute distress - EENT Eyes: PERRL, EOM intact ENT: hearing intact - Respiratory Respiratory effort: normal - Gastrointestinal General gastrointestinal: Present: soft, non-tender - Labs CBC & Chem 7: 08/13/19 04:09 08/12/19 08:17 Labs: Abnormal lab results 08/11/19 08/12/19 08/12/19 Range/Units 16:42 12:50 18:04 RBC (3.65-5.03) M/mm3 Hgb (11.8-15.2) gm/dl Hct (35.5-45.6) % MCV (84-94) fl MCH (28-32) pg RDW (13.2-15.2) % POC Glucose 135 H 154 H (70-105) Crossmatch See Detail 08/12/19 08/13/19 08/13/19 Range/Units 23:45 04:09 05:58 RBC 1.76 L (3.65-5.03) M/mm3 Hgb 4.7 L* D (11.8-15.2) gm/dl Hct 14.4 L* D (35.5-45.6) % MCV 81 L (84-94) fl MCH 27 L (28-32) pg RDW 17.1 H (13.2-15.2) % POC Glucose 139 H 140 H (70-105) Crossmatch Medications & Allergies - Medications Allergies/Adverse Reactions: Allergies heparin Allergy (Severe, Verified 09/27/17 11:14) THROMBOCYTOPENIA HIT Home Medications: Home Medications Medication Instructions Recorded Confirmed Last Taken Type Carvedilol [Coreg] 3.125 mg PO BID #60 tablet 01/29/17 08/11/19 09/28/17 Rx Folic Acid [Folvite] 1 mg PO QDAY #30 tablet 01/29/17 08/11/19 Unknown Rx Hypromellose [Isopto Tears 0.5%] 2 drops OU Q4H PRN #1 bottle 01/29/17 08/11/19 09/28/17 Rx Lisinopril [Zestril TAB] 2.5 mg PO QDAY #15 tablet 01/29/17 08/11/19 09/28/17 Rx Multivitamins Liq [Multiple 5 ml PO QDAY #150 oral.liqd 10/01/17 08/11/19 Unknown Rx Vitamin Liq (Theragran)] Sevelamer Carbonate [Renvela] 1,600 mg PO TIDWM #90 tablet 10/01/17 08/11/19 Unknown Rx Thiamine [Vitamin B-1] 100 mg PO QDAY #30 tablet 10/01/17 08/11/19 Unknown Rx ISOSORBIDE MONOnitrate [Imdur ER] 30 mg PO QDAY tablet 01/07/18 08/11/19 Unknown Rx Pantoprazole [Protonix TAB] 40 mg PO BID #60 tablet 04/15/19 08/11/19 Unknown Rx ALPRAZolam [Xanax TAB] 1 mg PO QHS PRN #5 tablet 08/08/19 08/11/19 Unknown Rx Aspirin EC [Halfprin EC] 81 mg PO QDAY #30 tablet 08/08/19 08/11/19 Unknown Rx Doxepin [SINEquan] 100 mg PO QHS #5 capsule 08/08/19 08/11/19 Unknown Rx oxyCODONE /ACETAMINOPHEN [Percocet 1 tab PO Q4HR PRN #10 tab 08/08/19 08/11/19 Unknown Rx 5/325 mg] AtorvaSTATin [Lipitor] 10 mg PO QHS 08/11/19 08/11/19 Unknown History Insulin Glargine [Lantus VIAL] 6 units SUB-Q QHS 08/11/19 08/11/19 Unknown History Lispro Insulin [HumaLOG] See Protocol SQ BID 08/11/19 08/11/19 Unknown History Active Medications: Generic Name Dose Route Start Last Admin Trade Name Freq PRN Reason Stop Dose Admin Dextrose 50 ml 08/12/19 16:43 D50w (25gm) Syringe IV Q30MIN PRN Hypoglycemia Hydromorphone HCl 0.5 mg 08/13/19 13:12 08/13/19 13:23 Dilaudid IV 0.5 mg Q2H PRN Administration Pain , Severe (7-10) Levofloxacin/Dextrose 500 mg in 100 mls @ 100 mls/hr 08/11/19 20:43 08/13/19 10:01 Levaquin 500mg/100ml IV 08/13/19 23:59 100 mls/hr Q24HR RENITA Administration Protocol Pantoprazole Sodium 80 mg/ 100 mls @ 10 mls/hr 08/12/19 12:00 08/13/19 08:05 Sodium Chloride IV 8 mg/hr DIRECT RENITA 10 mls/hr Administration 8 MG/HR Sodium Chloride 1,000 mls @ 150 mls/hr 08/12/19 14:00 08/13/19 08:08 Nacl 0.9% 1000 Ml IV 150 mls/hr DIRECT RENITA Administration Insulin Human Lispro 0 unit 08/12/19 18:00 08/13/19 12:33 Humalog SUB-Q Not Given Q6HR RENITA Protocol Nicotine 14 mg 08/12/19 12:00 08/13/19 10:01 Habitrol TD 14 mg QDAY RENITA Administration Sodium Chloride 10 ml 08/11/19 22:00 08/12/19 22:00 Sodium Chloride Flush Syringe 10 Ml IV 10 ml BID RENITA Administration Sodium Chloride 10 ml 08/11/19 20:37 Sodium Chloride Flush Syringe 10 Ml IV PRN PRN LINE FLUSH
[2019-08-13 14:35] LABS: Hematocrit 21.9 % (35.5-45.6); Hemoglobin 7.2 gm/dl (11.8-15.2)
[2019-08-13 17:10] VITALS: BP 118/65
== END 2019-08-13 17:15 | disposition short-term general hospital (02) | DRG 374 ==
LOC: ED 16:02 → CC1 20:37
PROVIDERS: ADMIT Internal Medicine; ATTEND Internal Medicine
PROC: 0DJ08ZZ Inspection of Upper Intestinal Tract, Via Natural or Artificial Opening Endoscopic (ICD-10-PCS; principal; 2019-08-12)
PROC: 30233N1 Transfusion of Nonautologous Red Blood Cells into Peripheral Vein, Percutaneous Approach (ICD-10-PCS; 2019-08-12)
DX: C16.8 Malignant neoplasm of overlapping sites of stomach (principal); K25.4 Chronic or unspecified gastric ulcer with hemorrhage; R65.10 Systemic inflammatory response syndrome (SIRS) of non-infectious origin without acute organ dysfunction; I42.9 Cardiomyopathy, unspecified; D62 Acute posthemorrhagic anemia; F17.200 Nicotine dependence, unspecified, uncomplicated; E11.9 Type 2 diabetes mellitus without complications; I50.9 Heart failure, unspecified; I11.0 Hypertensive heart disease with heart failure; I95.9 Hypotension, unspecified; K21.9 Gastro-esophageal reflux disease without esophagitis; E86.1 Hypovolemia; E87.6 Hypokalemia; K74.60 Unspecified cirrhosis of liver; J44.9 Chronic obstructive pulmonary disease, unspecified; G89.4 Chronic pain syndrome; I25.10 Atherosclerotic heart disease of native coronary artery without angina pectoris; Z95.5 Presence of coronary angioplasty implant and graft; Z86.19 Personal history of other infectious and parasitic diseases; I25.2 Old myocardial infarction; Z83.3 Family history of diabetes mellitus; Z82.49 Family history of ischemic heart disease and other diseases of the circulatory system; Z88.8 Allergy status to other drugs, medicaments and biological substances; Z79.4 Long term (current) use of insulin; Z79.01 Long term (current) use of anticoagulants; Z79.82 Long term (current) use of aspirin; Z79.899 Other long term (current) drug therapy; Z92.21 Personal history of antineoplastic chemotherapy; Z71.6 Tobacco abuse counseling
CPT/HCPCS: 36415; 71045; 74177; 80053; 82271; 82962; 83690; 85014; 85018; 85025; 85027; 86850; 86900; 86901; 86920; 87116; 93005; 93010; 96374; 99406; G0378; C9113; J1170; J1956; J2270; J2405; J2704; J3010; J7030; J7040; J7050; P9016; Q9967